=== PATIENT | female | born 1945 | race Caucasian/White ===

== ENCOUNTER 2017-04-23 12:42 | Observation (INO) | payer MEDICARE, OTHER, SELFPAY ==
[2017-04-23] VITALS (11 sets, daily range): BP systolic 112–180; BP diastolic 58–83; PULSE 54–75; RESP 16–23; TEMP 36.6–37.1; O2SAT 94–99; BMI 27.4; BMI 29.5
--- NOTE | 2017-04-23 12:48 | ED.RN ---
PT STATES MY HEAD HURTS. INFORMED DR HOWARD SHE DROVE HERSELF TO THE ER
[2017-04-23 12:50] LABS: Bedside Glucose 145 mg/dL (70-110)
--- NOTE | 2017-04-23 12:53 | EKG12_ITS ---
Test Reason : CP Blood Pressure : / mmHG Vent. Rate : 074 BPM Atrial Rate : 074 BPM P-R Int : 174 ms QRS Dur : 086 ms QT Int : 392 ms P-R-T Axes : 019 058 088 degrees QTc Int : 435 ms Normal sinus rhythm T wave abnormality, consider anterior ischemia Abnormal ECG Confirmed by STARLA DELA CRUZ ([id number]), manager editorial DAVID CARMONA ([id number] on 04/27/2017 1:46:28 PM Referred By: ANYA Confirmed By:STARLA DELA CRUZ
--- NOTE | 2017-04-23 12:53 | RAD_ITS ---
STUDY: X-RAY CHEST REASON FOR EXAM: Female, 71 years old. Sudden onset chest pain. TECHNIQUE: Single AP portable view of the chest. COMPARISON: December 16, 2016. FINDINGS: Telemetry wires overlie the chest. The lungs are clear and expanded. There is no demonstrated pleural abnormality. Sternal cerclage wires are present from a prior sternotomy. The heart appears normal in size. Normal mediastinum and beverly. Normal visualized pulmonary arteries. Normal visualized aortic arch and descending thoracic aorta. Normal visualized thoracic spine. Normal visualized ribs, clavicles, and shoulders. There is no demonstrated abnormality of the visualized soft tissue structures of the upper abdomen. RAD/Chest 1 View (Portable) IMPRESSION: No acute cardiopulmonary disease or interval change. Electronically Signed: Lamont Roger DO at 15:30 EDT Tel [phone], Service support ,
--- NOTE | 2017-04-23 12:54 | CT_ITS ---
STUDY: CT BRAIN WITHOUT CONTRAST REASON FOR EXAM: Female, 71 years old. History of fall. RADIATION DOSAGE (If Supplied By Facility): CTDIvol = ( 60.81 ) mGy, DLP = ( 1067.08 ) mGycm TECHNIQUE: Transaxial CT imaging of the brain was performed without administration of intravenous contrast material. Individualized dose optimization techniques were used for this CT. COMPARISON: Comparison is made with prior study dated December 16, 2016. FINDINGS: Normal soft tissue structures. Normal calvarium. There is mild cerebral atrophy with widening of the extra-axial spaces and ventricular dilatation. There are areas of decreased attenuation within the white matter tracts of the supratentorial brain, consistent with microvascular disease changes. 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 Normal brainstem. Normal cerebellum. There is no intracranial hemorrhage. There are no findings of an acute ischemic infarction. Atherosclerotic calcification of the cavernous portions of the internal carotid arteries bilaterally. Nodular mucosal thickening of the right maxillary sinus. CT/Brain/Head without Contrast IMPRESSION: Chronic involutional changes of the brain. Electronically Signed: Gonzales Dowell MD at 13:56 EDT Tel [phone], Service support ,
--- NOTE | 2017-04-23 12:54 | CT_ITS ---
STUDY: CT CERVICAL SPINE WITHOUT CONTRAST REASON FOR EXAM: Female, 71 years old. Neck pain following a fall. RADIATION DOSAGE (If Supplied By Facility): CTDIvol = ( 30.10 ) mGy, DLP = ( 616.87 ) mGycm TECHNIQUE: High resolution transaxial imaging was performed without contrast material. Sagittal and coronal images were reconstructed. Individualized dose optimization techniques were used for this CT. COMPARISON: None FINDINGS: Normal craniovertebral junction. There are degenerative changes of the anterior atlantoaxial articulation. Normal odontoid process. Normal cervical lordosis. Normal vertebral bodies and posterior osseous elements. C2-3: Normal endplates. Normal disc height and morphology. Normal central canal and intervertebral neuroforamina. C3-4: Normal endplates. Normal disc height and morphology. Normal central canal and intervertebral neuroforamina. C4-5: Moderate degree of disc space narrowing and spondylosis. Uncovertebral arthrosis and facet joint osteoarthritis. Mild degree of bilateral neural foraminal stenosis worse on the right side. C5-6: Moderate degree of disc space narrowing with spondylosis. Uncovertebral arthrosis. Facet joint osteoarthritis and hypertrophy. Mild bilateral neural foraminal stenosis. C6-7: Moderate degree of disc space narrowing and spondylosis. Facet joint osteoarthritis. CT/Spine Cervical without Contras IMPRESSION: Multilevel degenerative changes, as described above. Electronically Signed: Gonzales Dowell MD at 13:55 EDT Tel [phone], Service support ,
--- NOTE | 2017-04-23 13:15 | ED.RN ---
[address] COMPLETE [address] COMPLETE 1310 RETURNED TO ER BED 6 1311 CHEST XRAY COMPLETE
[2017-04-23 13:23] LABS: Absolute Lymphocyte Count 3.41 X10^3/ul (0.83-4.51); Absolute Neutrophil Count 6.4 X10^3/uL (2.0-7.7); Basophil# 0.05 X10^3/uL; Basophil% 0.5 % (0-1); Eosinophil# 0.16 X10^3/uL; Eosinophils% 1.5 % (0-5); Hematocrit 42.6 % (37-47); Hemoglobin 14.1 g/dl (12.0-15.0); Lymphocyte # 3.41 X10^3/ul (4.0); Lymphocyte % 31.9 % (19-41); Mean Corp Hgb Conc 33.1 g/gl (32-36); Mean Corpuscular Hgb 29.4 pg (27.0-32.0); Mean Corpuscular Volume 88.9 fL (81-99); Mean Platelet Vol. 11.1 fl (6.2-12.0); Monocyte# 0.68 X10^3/uL; Monocyte% 6.4 % (0-10); Neutrophil # 6.36 X10^3/uL (2.7-7.7); Neutrophil % 59.3 % (47-70); Platelet Count 293 K/mm3 (150-450); RBC Distribution Width CV 13.9 % (11.6-14.6); Red Blood Count 4.79 M/mm3 (4.2-5.4); White Blood Count 10.7 K/mm3 (4.4-11.0)
[2017-04-23] MEDS: 0.9% Normal Saline 1,000 ML 150 ML IV (13:25)
[2017-04-23 13:26] LABS: POSITIVE COUNT NO; POSITIVE DIFFERENTIAL NO; POSITIVE MORPHOLOGY NO
[2017-04-23 13:35] LABS: Anion Gap 7 (5-15); BUN 12 mg/dL (7-18); BUN/Creat Ratio 12.3 RATIO (10-20); Calcium,Total 8.8 mg/dL (8.5-10.1); Chloride 103 mmol/L (98-107); Creatinine, Serum 0.97 mg/dL (0.55-1.02); EST Glomerular Filtration Rate 60 mL/min (>60); Est Glom Filt Rate - Afr Amer 73 mL/min (>60); Estimated Creatinine Clearance 51.24 ml/min; Glucose 115 mg/dL (74-106); Potassium 3.7 mmol/L (3.5-5.1); Sodium Level 137 mmol/L (136-145)
[2017-04-23] MEDS: Aspirin 81 MG TAB.CHEW 324 MG PO (13:45)
--- NOTE | 2017-04-23 15:28 | ED.VISSUMM ---
- ER Visit Summary Date of Service: 04/23/17 Chief Complaint: [Chest pain and syncope] History of Present Illness: The patient is a 71 F [presents to the emergency department with complaint of chest discomfort. Patient drove herself to the emergency department because she was not feeling well today with headache and feeling short of breath. Patient was noted that before she entered the ER door she started clutching her chest and collapsed to the floor. A rapid response team went out to bring the patient into the department. On arrival she is somewhat confused and slow to answer questions. She does move all extremities and follows commands. Patient tells me she has a history of multiple cardiac stents and open heart surgery in the past. She denies any recent travel or surgery. She denies recent illness.] Physical Examination: [HEENT-PERRLA, EOMI. Cranial nerves II through XII grossly intact. TMs clear. Mucous membranes moist. No adenopathy. Cardiovascular-regular rate and rhythm without murmur or ectopy Lungs-clear to auscultation, chest wall stable without crepitus or subcu emphysema Abdomen-normoactive bowel sounds, soft, nontender, no rebound or rigidity, no peritoneal signs. Neuro dhcc-bibhsr-ecxj and heel amato testing within normal limits, negative Romberg. No focal deficit noted on exam. NIH of 0. Extremities-intact ?4, normal range of motion, normal pulses, atraumatic] Test Results: [EKG obtained on arrival shows sinus rhythm with a ventricular rate of 74 bpm with some nonspecific ST changes noted. CBC with differential is normal. Chemistries were normal. Troponin was less than 0.02. CT scan of the brain without contrast showed nothing acute. CT C-spine showed nothing acute. Chest x-ray showed nothing acute.] Emergency Department Course and Treatment: [Patient received aspirin in the emergency department.] Treatment Plan: [I recommended admitting patient for further workup and evaluation of her symptoms. Patient initially stated that she would prefer to go home however she agreed to allow for admission and at least an observation period.] Disposition: [Admit] Impression: [Chest pain Syncope Confusion-resolved] This note was generated with [employer] dictation software. It may contain incorrect words, spelling, and punctuation that were not noted in review of the chart prior to signing ED Disposition - Plan for ED Patient: Chief Complaint: Chest Pain Referrals: Zully Rojas MD [Primary Care Provider] -
--- NOTE | 2017-04-23 15:32 | ED.DCSUM_ITS ---
- ER Visit Summary Date of Service: 04/23/17 Chief Complaint: [Chest pain and syncope] History of Present Illness: The patient is a 71 F [presents to the emergency department with complaint of chest discomfort. Patient drove herself to the emergency department because she was not feeling well today with headache and feeling short of breath. Patient was noted that before she entered the ER door she started clutching her chest and collapsed to the floor. A rapid response team went out to bring the patient into the department. On arrival she is somewhat confused and slow to answer questions. She does move all extremities and follows commands. Patient tells me she has a history of multiple cardiac stents and open heart surgery in the past. She denies any recent travel or surgery. She denies recent illness.] Physical Examination: [HEENT-PERRLA, EOMI. Cranial nerves II through XII grossly intact. TMs clear. Mucous membranes moist. No adenopathy. Cardiovascular-regular rate and rhythm without murmur or ectopy Lungs-clear to auscultation, chest wall stable without crepitus or subcu emphysema Abdomen-normoactive bowel sounds, soft, nontender, no rebound or rigidity, no peritoneal signs. Neuro yvvo-tdzvkg-cnqx and heel amato testing within normal limits, negative Romberg. No focal deficit noted on exam. NIH of 0. Extremities-intact ?4, normal range of motion, normal pulses, atraumatic] Test Results: [EKG obtained on arrival shows sinus rhythm with a ventricular rate of 74 bpm with some nonspecific ST changes noted. CBC with differential is normal. Chemistries were normal. Troponin was less than 0.02. CT scan of the brain without contrast showed nothing acute. CT C-spine showed nothing acute. Chest x-ray showed nothing acute.] Emergency Department Course and Treatment: [Patient received aspirin in the emergency department.] Treatment Plan: [I recommended admitting patient for further workup and evaluation of her symptoms. Patient initially stated that she would prefer to go home however she agreed to allow for admission and at least an observation period.] Disposition: [Admit] Impression: [Chest pain Syncope Confusion-resolved] This note was generated with [employer] dictation software. It may contain incorrect words, spelling, and punctuation that were not noted in review of the chart prior to signing ED Disposition - Plan for ED Patient: Chief Complaint: Chest Pain Referrals: Zully Rojas MD [Primary Care Provider] -
--- NOTE | 2017-04-23 15:55 | PCM.HP.STD ---
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 The patient is a 71 year old F with past medical history as mentioned above presented to the emergency room because of chest pain and reported syncope. The patient is poor informant and was not able to give consistent history. She stated [facility] and while she is driving, she started feeling sick, dizzy and had chest pain and she was about to vomit. She described this chest pain as sharp pain, lasted for couple of minutes, not radiating, 4-5 out of 10 in severity, associated with shortness of breath and nausea and without aggravating or relieving factors. She drove to the hospital and parking her car, came walking to the emergency room and all of a sudden, she started having another episode of chest pain was described as above, associated with dizziness, severe pain, sharp and she landed on the ground because of that pain. Reportedly, a man who was walking beside mentioned that she passed out. She did mention that she was dizzy but she did not recall that she passed out. Upon arrival to ER, patient was somewhat confused and slow on responding to questions. When I saw the patient, she had the same problem but she was alert and active ?3 and she has slow responses to questions. She mentioned that this problem is chronic for her. At this time, she has no more chest pain. Her vital signs are stable. Her routine blood work was unremarkable. First troponin was negative. EKG revealed flat T-wave in leads V3, V4, V5 and V6 and T-wave inversion in leads V3 and V4. Those changes are new compared to EKG from December,. Chest x-ray showed no acute findings. CT scan brain showed no acute infarction or hemorrhage. CT cervical spine showed no evidence of acute fractures or dislocations. She is being admitted for chest pain for evaluation as well as questionable syncope/near syncope for evaluation as well. Past Medical History Past Medical History (Chronic Problems): Chronic Problems Hypertension (Chronic) Coronary artery disease (Chronic) TIA (transient ischemic attack) (Chronic) Hyperlipidemia (Chronic) Hypothyroidism (Chronic) Anxiety (Chronic) Smoking addiction (Chronic) History of coronary artery bypass graft x 3 (Chronic) History of PTCA (Chronic) Sleep apnea (Chronic) Pulmonary hypertension (Chronic) Chronic back pain (Chronic) COPD (chronic obstructive pulmonary disease) (Chronic) Benzodiazepine dependence (Chronic) Allergies morphine Allergy (Verified 12/16/16 21:38) PT UNSURE Penicillins Allergy (Verified 12/16/16 21:38) Hives tramadol HCl [From Ultram] Allergy (Verified 12/16/16 21:38) PT UNSURE Home Medications: Ambulatory Orders Medication Instructions Recorded Atenolol [Tenormin (beta estefania)] 25 mg PO DAILY 03/22/15 Citalopram [Celexa] 40 mg PO DAILY 03/22/15 Clopidogrel Bisulfate [Plavix] 75 mg PO QODAY 03/22/15 Esomeprazole Mag Trihydrate 20 mg PO DAILY 03/22/15 [Nexium] Levothyroxine [Synthroid] 75 mcg PO DAILY 03/22/15 Lisinopril [Zestril] 40 mg PO DAILY 03/22/15 Aspirin E.C. 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 Denies: Heaviness, Orthopnea, Palpitations, Paroxysmal Noc. Dyspnea Respiratory: Reports: Shortness of Breath. Denies: Cough, Pleuritic Pain, Sputum production, Wheezing Gastrointestinal: Reports: Nausea. Denies: Abdominal Pain, Constipation, Diarrhea, Vomiting Genitourinary: Denies: Dysuria, Frequency, Hematuria Musculoskeletal: Denies: Arm Pain, Back Pain, Foot Pain Skin: Denies: Dryness, Rash Neurological: Denies: Balance problems, Double vision, Change in Speech, Slurred speech, Confusion, Focal weakness, Headaches, Incoordination Psychiatric: Reports: Anxiety. Denies: Depression Endocrine: Denies: Change in Body Habitus, Polydipsia, Polyuria VTE Information - Inpt Only VTE Present on Admission: No VTE Mechan Device Prophylaxis: None VTE Pharm Prophylaxis ordered?: Yes - Physical Exam General: Alert, Oriented x3, Cooperative, No apparent distress HEENT: Atraumatic, PERRLA, EOMI Oral: Moist Mucosa, No Gingival or Mucosal Lesions/ Ulcerations Neck: Supple, No JVD, Negative Carotid Bruits, Trachea Midline, Thyroid Normal Size and Texture Lungs: Clear to auscultation, No wheeze, No rales, Diminished, Rhonchi Cardiovascular: Regular rate, Regular Rhythm, Normal S1, Normal S2, PMI Normal Abdomen: Bowel Sounds Present, Soft, Non Tender, Non-Distended, No Hepato-splenomegaly Extremities: No clubbing, No cyanosis, No edema Skin: No rashes, No breakdown Lymphatic: No Cervical, Supraclavicular, or Inguinal Adenopathy Neurological: Cranial nerves II-XII grossly intact, Motor Exam 5/5 strength throughout Psych/Mental Status: Normal Affect, Appropriate Vital Signs Temp Pulse Resp BP Pulse Ox 97.9 F 69 20 H 142/83 H 94 04/23/17 12:42 04/23/17 15:30 04/23/17 15:30 04/23/17 15:30 04/23/17 15:30 Oxygen Flow Rate (L/min) 2 Oxygen Delivery Method Room Air Weight: 170 lb Body Mass Index (BMI) 27.4 Finger Stick Blood Glucose 145 Laboratory Tests Past 24 Hrs 04/23/17 04/23/17 12:45 12:45 WBC 10.7 RBC 4.79 Hgb 14.1 Hct 42.6 MCV 88.9 MCH 29.4 MCHC 33.1 RDW 13.9 RDW Differential 44.0 H Plt Count 293 MPV 11.1 Immature Gran % (Auto) 0.400 Neut % (Auto) 59.3 Lymph % (Auto) 31.9 [place] % (Auto) 6.4 Eos % (Auto) 1.5 Baso % (Auto) 0.5 Absolute Neuts (auto) 6.4 Absolute Lymphs (auto) 3.41 Total Counted Not Reportable Sodium 137 Potassium 3.7 Chloride 103 Carbon Dioxide 27.0 Anion Gap 7 BUN 12 Creatinine 0.97 Estim Creat Clear Calc 51.24 Est GFR (MDRD) Af Amer 73 Est GFR (MDRD) Non-Af 60 BUN/Creatinine Ratio 12.3 Glucose 115 H Calcium 8.8 Troponin I < 0.02 POC Glucose 04/23/17 12:47 POC Glucose 145 H Clinical Impression(s) from Imaging Studies Chest X-Ray 04/23/17 12:53 IMPRESSION: No acute cardiopulmonary disease or interval change. Electronically Signed: Lamont Roger DO at 15:30 EDT Tel [phone], Service support , Brain CT 04/23/17 12:54 IMPRESSION: Chronic involutional changes of the brain. Electronically Signed: Gonzales Dowell MD at 13:56 EDT Tel [phone], Service support , Cervical Spine CT 04/23/17 12:54 IMPRESSION: Multilevel degenerative changes, as described above. Electronically Signed: Gonzales Dowell MD at 13:55 EDT Tel [phone], Service support , Assessment/Plan This is a 71 years old female patient presented to the emergency room because of chest pain and questionable near syncope and she is being admitted for evaluation. #1 chest pain/EKG changes: EKG reviewed, revealed flattened T waves in leads V3, V4, V5 and V6 as well as inverted T-wave in leads V3 and V4 and those changes are new compared to EKG from December,. Her chest pain looks somewhat typical. She has significant cardiac history of CAD status post CABG and stents. Patient is poor informant, she used to see Dr. Cruz as outpatient. First troponin is negative. Vital signs are stable. Chest x-ray showed no acute findings. 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 #2 questionable syncope/near syncope: This was reported by a man who was walking by the patient in the front of the emergency room. Patient did mention that she was dizzy but she is not sure she is passed out. CT scan brain without acute findings. CT scan cervical spine done because of neck pain and was unremarkable. Plan: IV fluids, orthostatic vitals, cardiac monitoring. #3 CAD status post CABG and stents: Plan as above. Continue aspirin, atenolol, Plavix and lisinopril. #4 history of TIA: No focal deficit on physical exam. Continue aspirin and Plavix as well as statins. #5 COPD: Clinically stable, plan for albuterol as needed, Advair twice daily, oxygen by nasal cannula to keep O2 saturation more than 92%. #6 hypertension: Blood pressure stable, continue Norvasc, atenolol and lisinopril. #7 hypothyroidism: Continue levothyroxine. #8 DVT prophylaxis: Subcu Lovenox. This note was generated with [employer] dictation software. It may contain incorrect words, spelling, and punctuation that were not noted in checking the note before signing. Code Visit OBSV E&M: 91006 Initial observation care L3
--- NOTE | 2017-04-23 16:01 | HP.PCM_ITS ---
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 The patient is a 71 year old F with past medical history as mentioned above presented to the emergency room because of chest pain and reported syncope. The patient is poor informant and was not able to give consistent history. She stated that she went to [facility] today to do some stuff and while she is driving , she started feeling sick, dizzy and had chest pain and she was about to vomit. She described this chest pain as sharp pain, lasted for couple of minutes, not radiating, 4-5 out of 10 in severity, associated with shortness of breath and nausea and without aggravating or relieving factors. She drove to the hospital and parking her car, came walking to the emergency room and all of a sudden, she started having another episode of chest pain was described as above, associated with dizziness, severe pain, sharp and she landed on the ground because of that pain. Reportedly, a man who was walking beside mentioned that she passed out. She did mention that she was dizzy but she did not recall that she passed out. Upon arrival to ER, patient was somewhat confused and slow on responding to questions. When I saw the patient, she had the same problem but she was alert and active ?3 and she has slow responses to questions. She mentioned that this problem is chronic for her. At this time, she has no more chest pain. Her vital signs are stable. Her routine blood work was unremarkable. First troponin was negative. EKG revealed flat T-wave in leads V3, V4, V5 and V6 and T-wave inversion in leads V3 and V4. Those changes are new compared to EKG from December,. Chest x-ray showed no acute findings. CT scan brain showed no acute infarction or hemorrhage. CT cervical spine showed no evidence of acute fractures or dislocations. She is being admitted for chest pain for evaluation as well as questionable syncope/ near syncope for evaluation as well. Past Medical History Past Medical History (Chronic Problems): Chronic Problems Hypertension (Chronic) Coronary artery disease (Chronic) TIA (transient ischemic attack) (Chronic) Hyperlipidemia (Chronic) Hypothyroidism (Chronic) Anxiety (Chronic) Smoking addiction (Chronic) History of coronary artery bypass graft x 3 (Chronic) History of PTCA (Chronic) Sleep apnea (Chronic) Pulmonary hypertension (Chronic) Chronic back pain (Chronic) COPD (chronic obstructive pulmonary disease) (Chronic) Benzodiazepine dependence (Chronic) Allergies morphine Allergy (Verified 12/16/16 21:38) PT UNSURE Penicillins Allergy (Verified 12/16/16 21:38) Hives tramadol HCl [From Ultram] Allergy (Verified 12/16/16 21:38) PT UNSURE Home Medications: Ambulatory Orders Medication Instructions Recorded Atenolol [Tenormin (beta estefania)] 25 mg PO DAILY 03/22/15 Citalopram [Celexa] 40 mg PO DAILY 03/22/15 Clopidogrel Bisulfate [Plavix] 75 mg PO QODAY 03/22/15 Esomeprazole Mag Trihydrate 20 mg PO DAILY 03/22/15 [Nexium] Levothyroxine [Synthroid] 75 mcg PO DAILY 03/22/15 Lisinopril [Zestril] 40 mg PO DAILY 03/22/15 Aspirin E.C. [Ecotrin] 1 tab PO DAILY 06/19/15 Ca/D3/Mag Ox/Zinc/Prop Cutter/Jostin/Bor 1 each PO DAILY 06/19/15 [Calcium 600-Vit D3-Min Chew Tb] Fluticasone 0.05% [Flonase Nasal 2 spray NASAL DAILY 06/19/15 Prue] Lovastatin [Mevacor] 20 mg PO QHS 12/16/16 Multivitamin [Multiple Vitamins] 1 each PO DAILY 12/16/16 Citalopram Hydrobromide [Celexa] 20 mg PO 1700 04/23/17 Lorazepam [Ativan] 1 mg PO 4X/DAY 04/23/17 Surgical History: angioplasty - A total of 5 stents, coronary bypass surgery - 3 vessel bypass surgery Psychiatric History: Anxiety ARTIFICIAL INSEMINATOR History: No pertinent ARTIFICIAL INSEMINATOR history Lives: Alone Smoking Status: Current every day smoker Alcohol: None Drugs: None - *Family History Paternal History Items: No pertinent history Maternal History Items: No pertinent history Review of Systems Constitutional: Denies: Anorexia, Chills, Fever, Weakness Eyes: Denies: Blurred vision, Double vision, Drainage, Redness HEENT: Denies: Difficulty Hearing, Ear Pain, Eye Pain, Nasal Congestion, Sore Throat Cardiovascular: Reports: Chest Pain, Chest Pressure, Light Headedness. Denies: Heaviness, Orthopnea, Palpitations, Paroxysmal Noc. Dyspnea Respiratory: Reports: Shortness of Breath. Denies: Cough, Pleuritic Pain, Sputum production, Wheezing Gastrointestinal: Reports: Nausea. Denies: Abdominal Pain, Constipation, Diarrhea, Vomiting Genitourinary: Denies: Dysuria, Frequency, Hematuria Musculoskeletal: Denies: Arm Pain, Back Pain, Foot Pain Skin: Denies: Dryness, Rash Neurological: Denies: Balance problems, Double vision, Change in Speech, Slurred speech, Confusion, Focal weakness, Headaches, Incoordination Psychiatric: Reports: Anxiety. Denies: Depression Endocrine: Denies: Change in Body Habitus, Polydipsia, Polyuria VTE Information - Inpt Only VTE Present on Admission: No VTE Mechan Device Prophylaxis: None VTE Pharm Prophylaxis ordered?: Yes - Physical Exam General: Alert, Oriented x3, Cooperative, No apparent distress HEENT: Atraumatic, PERRLA, EOMI Oral: Moist Mucosa, No Gingival or Mucosal Lesions/ Ulcerations Neck: Supple, No JVD, Negative Carotid Bruits, Trachea Midline, Thyroid Normal Size and Texture Lungs: Clear to auscultation, No wheeze, No rales, Diminished, Rhonchi Cardiovascular: Regular rate, Regular Rhythm, Normal S1, Normal S2, PMI Normal Abdomen: Bowel Sounds Present, Soft, Non Tender, Non-Distended, No Hepato- splenomegaly Extremities: No clubbing, No cyanosis, No edema Skin: No rashes, No breakdown Lymphatic: No Cervical, Supraclavicular, or Inguinal Adenopathy Neurological: Cranial nerves II-XII grossly intact, Motor Exam 5/5 strength throughout Psych/Mental Status: Normal Affect, Appropriate Vital Signs Temp Pulse Resp BP Pulse Ox 97.9 F 69 20 H 142/83 H 94 04/23/17 12:42 04/23/17 15:30 04/23/17 15:30 04/23/17 15:30 04/23/17 15:30 Oxygen Flow Rate (L/min) 2 Oxygen Delivery Method Room Air Weight: 170 lb Body Mass Index (BMI) 27.4 Finger Stick Blood Glucose 145 Laboratory Tests Past 24 Hrs 04/23/17 04/23/17 12:45 12:45 WBC 10.7 RBC 4.79 Hgb 14.1 Hct 42.6 MCV 88.9 MCH 29.4 MCHC 33.1 RDW 13.9 RDW Differential 44.0 H Plt Count 293 MPV 11.1 Immature Gran % (Auto) 0.400 Neut % (Auto) 59.3 Lymph % (Auto) 31.9 [place] % (Auto) 6.4 Eos % (Auto) 1.5 Baso % (Auto) 0.5 Absolute Neuts (auto) 6.4 Absolute Lymphs (auto) 3.41 Total Counted Not Reportable Sodium 137 Potassium 3.7 Chloride 103 Carbon Dioxide 27.0 Anion Gap 7 BUN 12 Creatinine 0.97 Estim Creat Clear Calc 51.24 Est GFR (MDRD) Af Amer 73 Est GFR (MDRD) Non-Af 60 BUN/Creatinine Ratio 12.3 Glucose 115 H Calcium 8.8 Troponin I < 0.02 POC Glucose 04/23/17 12:47 POC Glucose 145 H Clinical Impression(s) from Imaging Studies Chest X-Ray 04/23/17 12:53 IMPRESSION: No acute cardiopulmonary disease or interval change. Electronically Signed: Lamont Roger DO at 15:30 EDT Tel [phone], Service support , Brain CT 04/23/17 12:54 IMPRESSION: Chronic involutional changes of the brain. Electronically Signed: Gonzales Dowell MD at 13:56 EDT Tel [phone], Service support , Cervical Spine CT 04/23/17 12:54 IMPRESSION: Multilevel degenerative changes, as described above. Electronically Signed: Gonzales Dowell MD at 13:55 EDT Tel [phone], Service support , Assessment/Plan This is a 71 years old female patient presented to the emergency room because of chest pain and questionable near syncope and she is being admitted for evaluation. #1 chest pain/EKG changes: EKG reviewed, revealed flattened T waves in leads V3 , V4, V5 and V6 as well as inverted T-wave in leads V3 and V4 and those changes are new compared to EKG from December,. Her chest pain looks somewhat typical. She has significant cardiac history of CAD status post CABG and stents. Patient is poor informant, she used to see Dr. Cruz as outpatient. First troponin is negative. Vital signs are stable. Chest x-ray showed no acute findings. Plan: Admit to PCU for observation, cardiac monitoring, serial cardiac enzymes, repeat EKG tomorrow morning, nuclear stress test tomorrow morning if cardiac enzymes are negative, obtain records from Dr. Cruz office who was her cotton broker. #2 questionable syncope/near syncope: This was reported by a man who was walking by the patient in the front of the emergency room. Patient did mention that she was dizzy but she is not sure she is passed out. CT scan brain without acute findings. CT scan cervical spine done because of neck pain and was unremarkable. Plan: IV fluids, orthostatic vitals, cardiac monitoring. #3 CAD status post CABG and stents: Plan as above. Continue aspirin, atenolol, Plavix and lisinopril. #4 history of TIA: No focal deficit on physical exam. Continue aspirin and Plavix as well as statins. #5 COPD: Clinically stable, plan for albuterol as needed, Advair twice daily, oxygen by nasal cannula to keep O2 saturation more than 92%. #6 hypertension: Blood pressure stable, continue Norvasc, atenolol and lisinopril. #7 hypothyroidism: Continue levothyroxine. #8 DVT prophylaxis: Subcu Lovenox. This note was generated with [email or web address] dictation software. It may contain incorrect words, spelling, and punctuation that were not noted in checking the note before signing. Code Visit OBSV E&M: 93473 Initial observation care L3
[2017-04-23] MEDS: 0.9% Normal Saline 1,000 ML 100 ML IV (18:26)
[2017-04-23] MEDS: Atorvastatin Calcium 10 MG Tablet 5 MG PO (21:25)
[2017-04-23] MEDS: Acetaminophen 325 MG Tablet 650 MG PO (22:28)
[2017-04-23] MEDS: Zolpidem Tartrate 5 MG Tablet PO (22:28)
[2017-04-24] VITALS (8 sets, daily range): BP systolic 148–164; BP diastolic 64–78; PULSE 56–76; RESP 16; TEMP 36.6–36.8; O2SAT 95–97
[2017-04-24 02:49] LABS: Absolute Neutrophil Count 4.7 X10^3/uL (2.0-7.7); Basophil# 0.04 X10^3/uL; Basophil% 0.4 % (0-1); Eosinophil# 0.32 X10^3/uL; Eosinophils% 3.5 % (0-5); Hematocrit 39.1 % (37-47); Hemoglobin 12.8 g/dl (12.0-15.0); Lymphocyte % 38.2 % (19-41); Mean Corp Hgb Conc 32.7 g/gl (32-36); Mean Corpuscular Hgb 29.1 pg (27.0-32.0); Mean Corpuscular Volume 88.9 fL (81-99); Mean Platelet Vol. 10.6 fl (6.2-12.0); Monocyte# 0.58 X10^3/uL; Monocyte% 6.3 % (0-10); Neutrophil % 51.4 % (47-70); POSITIVE COUNT NO; POSITIVE DIFFERENTIAL NO; POSITIVE MORPHOLOGY NO; Platelet Count 274 K/mm3 (150-450); RBC Distribution Width CV 13.8 % (11.6-14.6); RBC Distribution Width SD 44.3 fl (35.1-43.9); White Blood Count 9.2 K/mm3 (4.4-11.0)
[2017-04-24 02:55] LABS: Prothrombin Time (Protime)PT. 13.2 SECONDS (11.7-14.9)
[2017-04-24 02:56] LABS: Partial Thromboplast Time 27.4 Seconds (24.1-36.2)
[2017-04-24 03:12] LABS: Anion Gap 7 (5-15); BUN 12 mg/dL (7-18); BUN/Creat Ratio 14.2 RATIO (10-20); Chloride 109 mmol/L (98-107); Creatinine, Serum 0.84 mg/dL (0.55-1.02); EST Glomerular Filtration Rate 71 mL/min (>60); Est Glom Filt Rate - Afr Amer 86 mL/min (>60); Glucose 97 mg/dL (74-106); Sodium Level 143 mmol/L (136-145)
--- NOTE | 2017-04-24 05:55 | EKG12_ITS ---
Test Reason : AM EKG Blood Pressure : / mmHG Vent. Rate : 052 BPM Atrial Rate : 052 BPM P-R Int : 194 ms QRS Dur : 072 ms QT Int : 454 ms P-R-T Axes : 016 056 109 degrees QTc Int : 422 ms Sinus bradycardia T wave abnormality, consider anterior ischemia Abnormal ECG When compared with ECG of 23-APR-2017 12:42, MANUAL COMPARISON REQUIRED, DATA IS UNCONFIRMED Confirmed by STARLA DELA CRUZ ([id number]), editor magazine DAVID CARMONA ([id number]) on 04/27/2017 2:51:58 PM Referred By: JOSH Confirmed By:STARLA DELA CRUZ
[2017-04-24] MEDS: LORazepam 1 MG Tablet PO ×2 (06:09→11:45)
[2017-04-24] MEDS: Clopidogrel Bisulfate 75 MG Tablet PO (06:09)
[2017-04-24] MEDS: Aspirin E.C. 81 MG Tablet PO (06:09)
[2017-04-24] MEDS: Lisinopril 40 MG Tablet PO (06:09)
[2017-04-24] MEDS: Levothyroxine 75 MCG Tablet PO (06:09)
[2017-04-24] MEDS: Albuterol 2.5 MG/3 ML VIAL.NEB. INHALATION (06:41)
[2017-04-24] MEDS: Budesonide Respules 0.5 MG/2 ML AMPUL.NEB. INHALATION (06:41)
[2017-04-24] MEDS: Citalopram 20 MG Tablet 40 MG PO (11:45)
[2017-04-24] MEDS: Pantoprazole Sodium 20 MG Tablet PO (11:45)
[2017-04-24] MEDS: Fluticasone 0.05% 1 SPRAY NASAL.SRY 2 SPRAY NASAL (11:45)
[2017-04-24] MEDS: Atenolol 25 MG Tablet PO (11:46)
--- NOTE | 2017-04-24 12:33 | STRESSREP ---
Stress Test Report Pharmacologic myocardial perfusion stress test. 71-year-old lady with a history of chest pain. Stress protocol: Resting EKG demonstrates normal sinus rhythm with a rate of 67 bpm normal intervals are noted. There are 0.4 mg of adenosine was infused per usual protocol followed by Intravenous saline flush injection. Continuous EKG monitoring was performed. At rest there were no ST or T-wave changes noted suggest abnormal flow reserve at peak infusion no ST or T-wave changes were noted suggest abnormal flow reserve. The resting blood pressure was 152/74 with a final blood pressure 158/78. No clinical angina was noted. Myocardial perfusion protocol. 12.0 mCi of technetium 99m sestamibi was injected at rest. 0.4 mg regadenoson was infused per usual protocol. At peak infusion 35.0 mCi of technetium 99m sestamibi was injected. Stress images were obtained. Stress and rest images were reconstructed and compared in the short axis vertical long and horizontal long axis. Gated images were also obtained. Perfusion SPECT analysis: Review of the stress images demonstrate normal uptake of tracer noted in all areas of the myocardium. The resting images similarly demonstrate normal uptake of tracer noted in all areas of the myocardium. No areas of reversibility are noted suggest ischemia. Gated SPECT analysis: The gated ejection fraction noted to be 75%. Conclusion: Normal pharmacologic myocardial perfusion stress test. Preserved ejection fraction.
--- NOTE | 2017-04-24 14:13 | NURSING ---
Pt requesting to leave AMA at this time, AMA papers signed- copy given to patient and copy placed in chart. MD and discharge rn are aware.
--- NOTE | 2017-04-24 17:38 | PCM.DC.SUM ---
Discharge Date and Diagnosis Date of Admission: 04/23/17 Date of Discharge: 04/24/17 - Primary Discharge Diagnosis Noncardiac chest pain - Secondary Discharge Diagnosis Chronic Problems Hypertension (Chronic) Coronary artery disease (Chronic) TIA (transient ischemic attack) (Chronic) Hyperlipidemia (Chronic) Hypothyroidism (Chronic) Anxiety (Chronic) Smoking addiction (Chronic) History of coronary artery bypass graft x 3 (Chronic) History of PTCA (Chronic) Sleep apnea (Chronic) Pulmonary hypertension (Chronic) Chronic back pain (Chronic) COPD (chronic obstructive pulmonary disease) (Chronic) Benzodiazepine dependence (Chronic) Hospital Course and Treatment Imaging Results: Clinical Impression(s) from Imaging Studies Chest X-Ray 04/23/17 12:53 IMPRESSION: No acute cardiopulmonary disease or interval change. Electronically Signed: Lamont Roger DO at 15:30 EDT Tel [phone], Service support , Brain CT 04/23/17 12:54 IMPRESSION: Chronic involutional changes of the brain. Electronically Signed: Gonzales Dowell MD at 13:56 EDT Tel [phone], Service support , Cervical Spine CT 04/23/17 12:54 IMPRESSION: Multilevel degenerative changes, as described above. Electronically Signed: Gonzales Dowell MD at 13:55 EDT Tel [phone], Service support , Laboratory Tests 04/23/17 04/23/17 04/23/17 12:45 12:45 12:47 WBC 10.7 RBC 4.79 Hgb 14.1 Hct 42.6 MCV 88.9 MCH 29.4 MCHC 33.1 RDW 13.9 RDW Differential 44.0 H Plt Count 293 MPV 11.1 Immature Gran % (Auto) 0.400 Neut % (Auto) 59.3 Lymph % (Auto) 31.9 [place] % (Auto) 6.4 Eos % (Auto) 1.5 Baso % (Auto) 0.5 Absolute Neuts (auto) 6.4 Absolute Lymphs (auto) 3.41 Total Counted Not Reportable PT INR APTT Sodium 137 Potassium 3.7 Chloride 103 Carbon Dioxide 27.0 Anion Gap 7 BUN 12 Creatinine 0.97 Estim Creat Clear Calc 51.24 Est GFR (MDRD) Af Amer 73 Est GFR (MDRD) Non-Af 60 BUN/Creatinine Ratio 12.3 Glucose 115 H Calcium 8.8 Troponin I < 0.02 POC Glucose 145 H 04/23/17 04/23/17 04/24/17 17:59 21:01 02:30 WBC RBC Hgb Hct MCV MCH MCHC RDW RDW Differential Plt Count MPV Immature Gran % (Auto) Neut % (Auto) Lymph % (Auto) [place] % (Auto) Eos % (Auto) Baso % (Auto) Absolute Neuts (auto) Absolute Lymphs (auto) Total Counted PT INR APTT Sodium 143 Potassium 4.0 Chloride 109 H Carbon Dioxide 27.0 Anion Gap 7 BUN 12 Creatinine 0.84 Estim Creat Clear Calc 47.70 Est GFR (MDRD) Af Amer 86 Est GFR (MDRD) Non-Af 71 BUN/Creatinine Ratio 14.2 Glucose 97 Calcium 8.0 L Troponin I < 0.02 < 0.02 POC Glucose 04/24/17 04/24/17 04/24/17 02:38 02:38 02:38 WBC 9.2 RBC 4.40 Hgb 12.8 Hct 39.1 MCV 88.9 MCH 29.1 MCHC 32.7 RDW 13.8 RDW Differential 44.3 H Plt Count 274 MPV 10.6 Immature Gran % (Auto) 0.200 Neut % (Auto) 51.4 Lymph % (Auto) 38.2 [place] % (Auto) 6.3 Eos % (Auto) 3.5 Baso % (Auto) 0.4 Absolute Neuts (auto) 4.7 Absolute Lymphs (auto) 3.50 Total Counted Not Reportable PT 13.2 INR 1.0 APTT 27.4 Sodium Potassium Chloride Carbon Dioxide Anion Gap BUN Creatinine Estim Creat Clear Calc Est GFR (MDRD) Af Amer Est GFR (MDRD) Non-Af BUN/Creatinine Ratio Glucose Calcium Troponin I < 0.02 POC Glucose none Operations: None Procedures: Stress test Summary of Care Provided: The patient is a 71 year old F with a past medical history of hypertension, coronary artery disease, TIA, hyperlipidemia, hypothyroidism, chronic anxiety, benzodiazepine dependence, history of CABG ?3 vessels, pulmonary hypertension, COPD and ongoing nicotine dependence who presented to the emergency room at [facility] on 04/23/2017 complaining of a syncopal episode and chest pain. She was a poor historian. Troponin in the emergency room was less than 0.02. The EKG showed flat T waves in leads V3, V4, V5 and V6 with T-wave inversions in V3 and V4. The changes were new when compared to an EKG done in December 2016. Chest x-ray showed no acute findings. CT brain showed no acute abnormalities. Cervical spine CT showed no evidence of acute fracture or dislocation. She was admitted to a monitored bed on PCU and serial cardiac enzymes were obtained and were negative. On 04/24/2017 she had a nuclear stress test that was negative for ischemia. The gated nuclear ejection fraction was 75%. Telemetry showed no significant dysrhythmia or ectopy. Pt became agitated when she was not immediately discharged following the Stress test. She left AMA prior to me ever seeing her. This note was generated with [employer] dictation software. It may contain incorrect words, spelling, and punctuation that were not noted in checking the note before signing. Discharge Diet: Low fat/ Low Cholesterol Discharge Activity: Return to Normal Activity Home Medications: Medications to take at Discharge Atenolol [Tenormin (beta estefania)] 25 mg PO DAILY 03/22/15 Citalopram [Celexa] 40 mg PO DAILY 03/22/15 Clopidogrel Bisulfate [Plavix] 75 mg PO QODAY 03/22/15 Esomeprazole Mag Trihydrate [Nexium] 20 mg PO DAILY 03/22/15 Levothyroxine [Synthroid] 75 mcg PO DAILY 03/22/15 Lisinopril [Zestril] 40 mg PO DAILY 03/22/15 Aspirin E.C. [Ecotrin] 1 tab PO DAILY 06/19/15 Ca/D3/Mag Ox/Zinc/Freight Traffic Consultant/Jostin/Bor [Calcium 600-Vit D3-Min Chew Tb] 1 each PO DAILY 06/19/15 Fluticasone 0.05% [Flonase Nasal [place]] 2 spray NASAL DAILY 06/19/15 Lovastatin [Mevacor] 20 mg PO QHS 12/16/16 Multivitamin [Multiple Vitamins] 1 each PO DAILY 12/16/16 Citalopram Hydrobromide [Celexa] 20 mg PO 1700 04/23/17 Lorazepam [Ativan] 1 mg PO 4X/DAY 04/23/17 Primary Care Physician: Zully Rojas MD [Primary Care Provider] - Disposition: Against Medical Advice Minutes spent on discharge:: 20 Medical Necessity - Tobacco Use Smoking Status: Current every day smoker Tobacco Use: Cigarettes Meaningful Use Info Meaningful Use Diagnoses (Choose all that apply): None applicable Code Visit OBSV E&M: 96975 Observation care discharge
--- NOTE | 2017-04-24 17:46 | DS.PCM_ITS ---
Discharge Date and Diagnosis Date of Admission: 04/23/17 Date of Discharge: 04/24/17 - Primary Discharge Diagnosis Noncardiac chest pain - Secondary Discharge Diagnosis Chronic Problems Hypertension (Chronic) Coronary artery disease (Chronic) TIA (transient ischemic attack) (Chronic) Hyperlipidemia (Chronic) Hypothyroidism (Chronic) Anxiety (Chronic) Smoking addiction (Chronic) History of coronary artery bypass graft x 3 (Chronic) History of PTCA (Chronic) Sleep apnea (Chronic) Pulmonary hypertension (Chronic) Chronic back pain (Chronic) COPD (chronic obstructive pulmonary disease) (Chronic) Benzodiazepine dependence (Chronic) Hospital Course and Treatment Imaging Results: Clinical Impression(s) from Imaging Studies Chest X-Ray 04/23/17 12:53 IMPRESSION: No acute cardiopulmonary disease or interval change. Electronically Signed: Lamont Roger DO at 15:30 EDT Tel [phone], Service support , Brain CT 04/23/17 12:54 IMPRESSION: Chronic involutional changes of the brain. Electronically Signed: Gonzales Dowell MD at 13:56 EDT Tel [phone], Service support , Cervical Spine CT 04/23/17 12:54 IMPRESSION: Multilevel degenerative changes, as described above. Electronically Signed: Gonzales Dowell MD at 13:55 EDT Tel [phone], Service support , Laboratory Tests 04/23/17 04/23/17 04/23/17 12:45 12:45 12:47 WBC 10.7 RBC 4.79 Hgb 14.1 Hct 42.6 MCV 88.9 MCH 29.4 MCHC 33.1 RDW 13.9 RDW Differential 44.0 H Plt Count 293 MPV 11.1 Immature Gran % (Auto) 0.400 Neut % (Auto) 59.3 Lymph % (Auto) 31.9 [place] % (Auto) 6.4 Eos % (Auto) 1.5 Baso % (Auto) 0.5 Absolute Neuts (auto) 6.4 Absolute Lymphs (auto) 3.41 Total Counted Not Reportable PT INR APTT Sodium 137 Potassium 3.7 Chloride 103 Carbon Dioxide 27.0 Anion Gap 7 BUN 12 Creatinine 0.97 Estim Creat Clear Calc 51.24 Est GFR (MDRD) Af Amer 73 Est GFR (MDRD) Non-Af 60 BUN/Creatinine Ratio 12.3 Glucose 115 H Calcium 8.8 Troponin I < 0.02 POC Glucose 145 H 04/23/17 04/23/17 04/24/17 17:59 21:01 02:30 WBC RBC Hgb Hct MCV MCH MCHC RDW RDW Differential Plt Count MPV Immature Gran % (Auto) Neut % (Auto) Lymph % (Auto) [place] % (Auto) Eos % (Auto) Baso % (Auto) Absolute Neuts (auto) Absolute Lymphs (auto) Total Counted PT INR APTT Sodium 143 Potassium 4.0 Chloride 109 H Carbon Dioxide 27.0 Anion Gap 7 BUN 12 Creatinine 0.84 Estim Creat Clear Calc 47.70 Est GFR (MDRD) Af Amer 86 Est GFR (MDRD) Non-Af 71 BUN/Creatinine Ratio 14.2 Glucose 97 Calcium 8.0 L Troponin I < 0.02 < 0.02 POC Glucose 04/24/17 04/24/17 04/24/17 02:38 02:38 02:38 WBC 9.2 RBC 4.40 Hgb 12.8 Hct 39.1 MCV 88.9 MCH 29.1 MCHC 32.7 RDW 13.8 RDW Differential 44.3 H Plt Count 274 MPV 10.6 Immature Gran % (Auto) 0.200 Neut % (Auto) 51.4 Lymph % (Auto) 38.2 [place] % (Auto) 6.3 Eos % (Auto) 3.5 Baso % (Auto) 0.4 Absolute Neuts (auto) 4.7 Absolute Lymphs (auto) 3.50 Total Counted Not Reportable PT 13.2 INR 1.0 APTT 27.4 Sodium Potassium Chloride Carbon Dioxide Anion Gap BUN Creatinine Estim Creat Clear Calc Est GFR (MDRD) Af Amer Est GFR (MDRD) Non-Af BUN/Creatinine Ratio Glucose Calcium Troponin I < 0.02 POC Glucose none Operations: None Procedures: Stress test Summary of Care Provided: The patient is a 71 year old F with a past medical history of hypertension, coronary artery disease, TIA, hyperlipidemia, hypothyroidism, chronic anxiety, benzodiazepine dependence, history of CABG ?3 vessels, pulmonary hypertension, COPD and ongoing nicotine dependence who presented to the emergency room at [facility] on 04/23/2017 complaining of a syncopal episode and chest pain. She was a poor historian. Troponin in the emergency room was less than 0.02. The EKG showed flat T waves in leads V3, V4, V5 and V6 with T-wave inversions in V3 and V4. The changes were new when compared to an EKG done in December 2016. Chest x-ray showed no acute findings. CT brain showed no acute abnormalities. Cervical spine CT showed no evidence of acute fracture or dislocation. She was admitted to a monitored bed on PCU and serial cardiac enzymes were obtained and were negative. On 04/24/2017 she had a nuclear stress test that was negative for ischemia. The gated nuclear ejection fraction was 75 %. Telemetry showed no significant dysrhythmia or ectopy. Pt became agitated when she was not immediately discharged following the Stress test. She left AMA prior to me ever seeing her. This note was generated with [employer] dictation software. It may contain incorrect words, spelling, and punctuation that were not noted in checking the note before signing. Discharge Diet: Low fat/ Low Cholesterol Discharge Activity: Return to Normal Activity Home Medications: Medications to take at Discharge Atenolol [Tenormin (beta estefania)] 25 mg PO DAILY 03/22/15 Citalopram [Celexa] 40 mg PO DAILY 03/22/15 Clopidogrel Bisulfate [Plavix] 75 mg PO QODAY 03/22/15 Esomeprazole Mag Trihydrate [Nexium] 20 mg PO DAILY 03/22/15 Levothyroxine [Synthroid] 75 mcg PO DAILY 03/22/15 Lisinopril [Zestril] 40 mg PO DAILY 03/22/15 Aspirin E.C. [Ecotrin] 1 tab PO DAILY 06/19/15 Ca/D3/Mag Ox/Zinc/Oracle Ascp Consultant/Jostin/Bor [Calcium 600-Vit D3-Min Chew Tb] 1 each PO DAILY 06/19/15 Fluticasone 0.05% [Flonase Nasal [place]] 2 spray NASAL DAILY 06/19/15 Lovastatin [Mevacor] 20 mg PO QHS 12/16/16 Multivitamin [Multiple Vitamins] 1 each PO DAILY 12/16/16 Citalopram Hydrobromide [Celexa] 20 mg PO 1700 04/23/17 Lorazepam [Ativan] 1 mg PO 4X/DAY 04/23/17 Primary Care Physician: Zully Rojas MD [Primary Care Provider] - Disposition: Against Medical Advice Minutes spent on discharge:: 20 Medical Necessity - Tobacco Use Smoking Status: Current every day smoker Tobacco Use: Cigarettes Meaningful Use Info Meaningful Use Diagnoses (Choose all that apply): None applicable Code Visit OBSV E&M: 44856 Observation care discharge
== END 2017-04-24 14:20 | disposition left against medical advice (07) ==
LOC: ED 15:50 → PCU 16:00
PROVIDERS: Admitting Provider Hospitalist; Emergency Provider Emergency Medicine; Family Provider Internal Medicine; PCP Internal Medicine; Visit Provider Internal Medicine
DX: R07.89 Other chest pain (principal); I25.10 Atherosclerotic heart disease of native coronary artery without angina pectoris; J44.9 Chronic obstructive pulmonary disease, unspecified; G47.30 Sleep apnea, unspecified; F13.20 Sedative, hypnotic or anxiolytic dependence, uncomplicated; I10 Essential (primary) hypertension; E78.5 Hyperlipidemia, unspecified; E03.9 Hypothyroidism, unspecified; F41.9 Anxiety disorder, unspecified; F17.200 Nicotine dependence, unspecified, uncomplicated; R55 Syncope and collapse; I27.20 Pulmonary hypertension, unspecified; Z79.02 Long term (current) use of antithrombotics/antiplatelets; Z79.899 Other long term (current) drug therapy; Z79.82 Long term (current) use of aspirin; Z86.73 Personal history of transient ischemic attack (TIA), and cerebral infarction without residual deficits; Z95.1 Presence of aortocoronary bypass graft
CPT/HCPCS: 36415; 70450; 71045; 72125; 78452; 80048; 82962; 84484; 85025; 85610; 85730; 93005; 93017; 94640; 96360; 96361; 97802; 99218; 99285; A9500; J7030; A4216; G0378; J2785

== ENCOUNTER → 2017-05-29 20:24 | Emergency (ER) | payer MEDICARE, OTHER, SELFPAY | PROVIDERS: Family Provider Internal Medicine; PCP Internal Medicine | DX: R69 Illness, unspecified (principal) ==

== ENCOUNTER 2017-06-01 17:37 | Emergency (ER) | payer MEDICARE, OTHER, SELFPAY ==
[2017-06-01 17:39] VITALS: BP 154/75; PULSE 71; RESP 16; TEMP 36.6; O2SAT 95; BMI 27.8
--- NOTE | 2017-06-01 18:11 | ED.DCSUM_ITS ---
- ER Visit Summary Date of Service: 06/01/17 Chief Complaint: Left leg pain History of Present Illness: The patient is a [address] Rojas and has seen Dr. Aguilar in the past. She reports that she has pain in the lower back that radiates down the left leg to the level of her calf that began approximately 2 weeks ago. She reports that her back pain is chronic. She describes the leg pain as sharp. Is 10 out of 10 with walking or movement. Is 9 out of 10 at rest. She is not taking anything for pain. She denies any numbness or weakness. No problems with her bowels or her bladder. No groin numbness. No recent trauma. No fall, MVA, or change in activity. No fever or abdominal pain. Physical Examination: Vitals: Stable. Afebrile. General: A&O x 3. NAD. Cardiovascular exam: Regular rate and rhythm, no murmur, rub or gallop. Respiratory exam: Clear to auscultation bilaterally. No wheezes or stridor. Abdominal exam: Soft, nontender, nondistended, normal bowel sounds. No peritoneal signs. Back: Diffuse moderate tenderness to palpation over the lumbar spine and the paraspinous musculature in the lumbar region. No point tenderness. Negative straight leg bilaterally. 5/5 DF, PF, EHL bilaterally. Normal sensation to light touch throughout. Extremity: No clubbing, cyanosis, or edema. Emergency Department Course and Treatment: An [facility] report was obtained which shows that her last prescription for opiates was in November 2016 and this was by Dr. Aguilar. The past year she is only had 6 prescriptions for opiates and they have all been from Dr. Aguilar. Treatment Plan: Patient will be discharged with a prescription for [place] and instructed to follow-up with Dr. Aguilar for further management of her back pain. I did discuss with the fact he may be able to do an injection that would help with her leg pain as well. She actually came to the emergency department asking for cortisone injection. Return to the emergency department for any worsening symptoms. Disposition: To home in improved and stable condition. Impression: 1. Chronic back pain. 2. Sciatica. This note was generated with [employer] software. It may contain incorrect words, spelling, and punctuation that were not noted in review of the chart prior to signing ED Disposition - Plan for ED Patient: Disposition: Home or Assisted Living Chief Complaint: Lower Extremity Injury Instructions: ED Sciatica Prescriptions: Hydrocodone Bitart/Apap 5-325 [[place] 5/325] 1 - 2 tablet PO Q4H PRN PRN 5 Days # 20 tablet PRN Reason: Pain Referrals: Georgia Aguilar MD [STAFF PHYSICIAN] - As soon as possible
== END 2017-06-01 18:27 | disposition home or self-care (01) ==
PROVIDERS: Emergency Provider Emergency Medicine; Family Provider Internal Medicine; PCP Internal Medicine
DX: M54.42 Lumbago with sciatica, left side (principal); G89.29 Other chronic pain; I25.10 Atherosclerotic heart disease of native coronary artery without angina pectoris; I10 Essential (primary) hypertension; J44.9 Chronic obstructive pulmonary disease, unspecified; Z95.1 Presence of aortocoronary bypass graft; Z79.82 Long term (current) use of aspirin; Z79.01 Long term (current) use of anticoagulants; Z79.899 Other long term (current) drug therapy; Z72.0 Tobacco use
CPT/HCPCS: 99282

== ENCOUNTER → 2017-06-11 12:30 | Outpatient (CLI) | payer OTHER, MEDICARE, SELFPAY ==
[2017-06-11 13:21] LABS: Amphetamine Urine VISTA NEGATIVE (<1000 ng/mL); Barbiturate Urine VISTA NEGATIVE (< 200 ng/mL); Benzodiazepine Urine VISTA NEGATIVE (< 200 ng/mL); Cocaine Urine VISTA NEGATIVE (< 300 ng/mL); Ecstacy Urine VISTA NEGATIVE (< 500 ng/mL); Methadone Urine VISTA NEGATIVE (< 300 ng/mL); PCP Urine VISTA NEGATIVE (< 25 ng/mL); THC Urine VISTA NEGATIVE (< 50 ng/mL); Vista UDS pH Range 5
== END ==
PROVIDERS: Family Provider Internal Medicine; PCP Internal Medicine; Visit Provider Anesthesiology Pain Medicine
DX: S13.4XXA Sprain of ligaments of cervical spine, initial encounter (principal); S23.3XXA Sprain of ligaments of thoracic spine, initial encounter; S33.9XXA Sprain of unspecified parts of lumbar spine and pelvis, initial encounter; M47.817 Spondylosis without myelopathy or radiculopathy, lumbosacral region
CPT/HCPCS: 80307

== ENCOUNTER → 2017-06-22 14:18 | Outpatient (CLI) | payer MEDICARE, OTHER, SELFPAY ==
--- NOTE | 2017-06-22 14:22 | VDLE_ITS ---
Reason For Study: R/O DVT, pain RIGHT LEFT CFV is compressible, spontaneous, phasic, GSV is normal. competent and demonstrates normal CFV is compressible, spontaneous, phasic, augmentation. competent, and demonstrates normal Procedure augmentation. Exam performed in department. FV is compressible, spontaneous, phasic, The exam was diagnostic. competent and demonstrates normal A preliminary report was called and/or faxed augmentation. to Dr. Schmitt @ [phone] @ 2:45 pm. POP V is compressible, spontaneous, phasic, competent and demonstrates normal augmentation. T/P Trunk is compressible. PTV is compressible. LT PerV is compressible. Interpretation Summary Deep veins of the left lower extremity are patent and compressible segmentally. There is no evidence of left lower extremity deep vein thrombosis. Valvular competence appears intact within the proximal deep venous system on the left . The left greater saphenous vein appears patent and compressible segmentally. Ordering Physician: George Schmitt Referring Physician: George Schmitt Performed By: Janna Lala, SABINA, RVT
== END ==
PROVIDERS: Family Provider Internal Medicine; PCP Internal Medicine; Visit Provider Anesthesiology
DX: M79.89 Other specified soft tissue disorders (principal)
CPT/HCPCS: 93971

== ENCOUNTER → 2017-06-29 16:53 | Outpatient (CLI) | payer MEDICARE, OTHER, SELFPAY ==
--- NOTE | 2017-06-29 16:59 | MRI_ITS ---
STUDY: MRI LUMBAR SPINE WITHOUT CONTRAST REASON FOR EXAM: Female, 72 years old. Left radiculopathy TECHNIQUE: Standardized fat and water weighted pulse sequences were obtained in the sagittal and axial planes. COMPARISON: None FINDINGS: T12-L1: Normal endplates. Normal disc height, hydration and morphology. Normal bilateral facet joints. Normal central canal and bilateral lateral recesses. Normal bilateral intervertebral neural foramina. Normal lumbar lordosis. There is no substantial scoliosis. Normal conus medullaris that terminates at T12-L1 L1-2: Normal endplates. Normal disc height, hydration and morphology. Normal bilateral facet joints. Normal central canal and bilateral lateral recesses. Normal bilateral intervertebral neural foramina. L2-3: Normal endplates. Normal disc height, desiccation and minimal annular bulge.. Normal bilateral facet joints. Normal central canal and bilateral lateral recesses. Normal bilateral intervertebral neural foramina. L3-4: Normal endplates. Normal disc height, desiccation and mild annular bulge. Bilateral facet arthropathy and thickening of ligamenta flava.. Normal central canal. Moderate bilateral recess and neuroforaminal stenosis. L4-5: Normal endplates. Normal disc height, desiccation and minor annular bulge.. Bilateral facet arthropathy.. Normal central canal. Minor bilateral recess encroachment.. Normal bilateral intervertebral neural foramina. L5-S1: Normal endplates. Normal disc height, desiccation and minimal bulging disc osteophyte complex.. Mild facet arthropathy.. Normal central canal and bilateral lateral recesses. Normal bilateral intervertebral neural foramina. Normal visualized sacral ala. Normal visualized paraspinous soft tissue structures. MRI/Spine Lumbar (Routine) IMPRESSION: Mild spondylosis. Spinal stenosis at L4-5 and more severe at L3-4 secondary to bulging annuli and facet arthropathy. Electronically Signed: Hany Desai MD at 23:16 EDT , Service support ,
== END ==
PROVIDERS: Family Provider Internal Medicine; PCP Internal Medicine; Visit Provider Anesthesiology Pain Medicine
DX: M54.16 Radiculopathy, lumbar region (principal); M47.896 Other spondylosis, lumbar region; M48.061 Spinal stenosis, lumbar region without neurogenic claudication
CPT/HCPCS: 72148

== ENCOUNTER → 2017-07-21 16:23 | Outpatient (CLI) | payer MEDICARE, OTHER, SELFPAY ==
[2017-07-21 17:06] LABS: Absolute Lymphocyte Count 4.04 X10^3/ul (0.83-4.51); Absolute Neutrophil Count 9.7 X10^3/uL (2.0-7.7); Basophil# 0.03 X10^3/uL; Basophil% 0.2 % (0-1); Eosinophil# 0.17 X10^3/uL; Eosinophils% 1.2 % (0-5); Hematocrit 37.6 % (37-47); Lymphocyte # 4.04 X10^3/ul (4.0); Lymphocyte % 27.4 % (19-41); Mean Corp Hgb Conc 31.9 g/gl (32-36); Mean Corpuscular Hgb 29.1 pg (27.0-32.0); Mean Corpuscular Volume 91.3 fL (81-99); Mean Platelet Vol. 10.6 fl (6.2-12.0); Monocyte# 0.78 X10^3/uL; Monocyte% 5.3 % (0-10); Neutrophil # 9.72 X10^3/uL (2.7-7.7); Neutrophil % 65.7 % (47-70); Platelet Count 346 K/mm3 (150-450); RBC Distribution Width CV 14.6 % (11.6-14.6); RBC Distribution Width SD 49.4 fl (35.1-43.9); Red Blood Count 4.12 M/mm3 (4.2-5.4); White Blood Count 14.8 K/mm3 (4.4-11.0)
[2017-07-21 17:25] LABS: POSITIVE COUNT NO; POSITIVE DIFFERENTIAL NO; POSITIVE MORPHOLOGY NO
[2017-07-21 17:35] LABS: AST(SGOT) 18 U/L (15-37); Alanine Aminotransfer ALT/SGPT 21 U/L (13-56); Albumin, Serum 3.5 g/dL (3.2-5.0); Alkaline Phosphatase 105 U/L (45-117); Anion Gap 6 (5-15); BUN 18 mg/dL (7-18); BUN/Creat Ratio 21.7 RATIO (10-20); Calcium,Total 8.3 mg/dL (8.5-10.1); Chloride 104 mmol/L (98-107); Creatinine, Serum 0.83 mg/dL (0.55-1.02); EST Glomerular Filtration Rate 72 mL/min (>60); Est Glom Filt Rate - Afr Amer 87 mL/min (>60); Globulin 3.6 g/dL (2.2-4.2); Glucose 89 mg/dL (74-106); Protein, Total 7.1 g/dL (6.4-8.2); Sodium Level 137 mmol/L (136-145); Thyroid Stim Hormone (TSH) 0.32 uIU/mL (0.358-3.74)
[2017-07-24 07:11] LABS: Hep C Antibodies <0.1 s/co ratio (0.0-0.9)
== END ==
PROVIDERS: Visit Provider Family Medicine Geriatric Medicine
DX: I10 Essential (primary) hypertension (principal); E55.9 Vitamin D deficiency, unspecified; Z13.89 Encounter for screening for other disorder
CPT/HCPCS: 36415; 80053; 82306; 84443; 85025; 86803

== ENCOUNTER 2017-07-26 19:12 | Emergency (ER) | payer MEDICARE, OTHER, SELFPAY ==
[2017-07-26 19:14] VITALS: BP 112/50; PULSE 83; RESP 15; TEMP 36.9; O2SAT 95; BMI 30.9
--- NOTE | 2017-07-26 19:24 | EKG12_ITS ---
Test Reason : CP Blood Pressure : / mmHG Vent. Rate : 082 BPM Atrial Rate : 082 BPM P-R Int : 150 ms QRS Dur : 086 ms QT Int : 404 ms P-R-T Axes : 013 041 067 degrees QTc Int : 472 ms Normal sinus rhythm Normal ECG Confirmed by CONSUELO GOLD, EDDY ([id number]), film editor DAVID CARMONA ([id number]) on 07/29/2017 3:55:10 PM Referred By: RD Confirmed By:EDDY CORDERO MD
--- NOTE | 2017-07-26 19:24 | RAD_ITS ---
STUDY: X-RAY CHEST REASON FOR EXAM: Female, 72 years old. Chest pain TECHNIQUE: Single AP portable view of the chest. COMPARISON: 04/23/2017. FINDINGS: The lungs are clear and expanded. There is no demonstrated pleural abnormality. Sternal cerclage wires and vascular clips are present from a prior sternotomy and coronary artery bypass graft procedure (CABG). Normal mediastinum and beverly. Normal visualized pulmonary arteries. Normal visualized aortic arch and descending thoracic aorta. Normal visualized thoracic spine. Normal visualized ribs, clavicles, and shoulders. There is no demonstrated abnormality of the visualized soft tissue structures of the upper abdomen. RAD/Chest 1 View (Portable) IMPRESSION: No acute chest disease. Electronically Signed: Miller Castillo MD at 20:16 EDT , Service support ,
--- NOTE | 2017-07-26 19:26 | ED.DCSUM_ITS ---
- ER Visit Summary Date of Service: 07/26/17 Chief Complaint: Nausea, chest pain, diarrhea History of Present Illness: The patient is a 72 F [place] to the emergency department multiple complaints. Patient has a history of anxiety, coronary vascular disease, hypertension. She states that on , she began have generalized illness. She had some abdominal cramping. She had a few bouts of vomiting and some loose watery diarrhea. She states that she also had a nosebleed on Thursday. She states yesterday, the diarrhea seemed to be improving she was able to eat. Today, her nausea returned. She states that this, she began have chest pain. He was substernal in the left side. She states that she does get similar pain like this from time to time. She was actually admitted in April of this year for the same. She had a negative stress test. Patient called squad. On squad arrival, she was given aspirin and nitro which resolved her pain. She states that she is feeling back to normal just with some persistent nausea. Physical Examination: Vital signs reviewed General: Well-nourished, well-developed Head: Normocephalic, atraumatic Eyes: Pupils equal and reactive, extraocular muscles intact Neck, supple, no lymphadenopathy Heart: Regular rate and rhythm Respiratory: No distress, clear bilaterally Abdomen: Soft, nontender, nondistended, no peritoneal signs Back: Nontender Extremities: Nontender, no edema, no cords Skin: Normal color no rash Neuro: Alert and oriented, no focal or lateralizing deficits Test Results: [] Emergency Department Course and Treatment: Patient presents with multiple complaints. EKG was obtained. On her prior EKG, the patient had T-wave inversions anteriorly which have since normalized. IV was established. Patient was given fluids and Phenergan. I really do not feel that the symptoms were more consistent with acute coronary syndrome. Patient has a new anemia. Her hemoglobin is 6.2. 5 days ago was 12. The patient states when I reevaluated her that she had been having jet black diarrhea for 3 days. Rectal exam was done with nurse in the room. It was guaiac positive. There is no active bleeding. With the patient's new anemia and evidence of upper GI bleed, she is going to require GI intervention. She is started on Protonix drip. I did discuss with patient options for transfer. She requested transfer to [facility]. Patient was discussed with Dr. Ramsay. She will be transferred for further workup and intervention of upper GI bleed. Treatment Plan: [] Disposition: Transfer Impression: 1. Upper GI bleed. 2 new anemia 3. Chest pain This note was generated with [employer]gl[employer] dictation software. It may contain incorrect words, spelling, and punctuation that were not noted in review of the chart prior to signing ED Disposition - Plan for ED Patient: Chief Complaint: Chest Pain Referrals: Zully Rojas MD [STAFF PHYSICIAN] -
[2017-07-26 19:29] VITALS: BP 111/53; PULSE 77; RESP 19; O2SAT 97
[2017-07-26] MEDS: proMETHazine 25 MG/ML Syringe 6.25 MG IV (19:32)
[2017-07-26 19:38] LABS: Absolute Lymphocyte Count 3.83 X10^3/ul (0.83-4.51); Absolute Neutrophil Count 6.1 X10^3/uL (2.0-7.7); Basophil# 0.05 X10^3/uL; Basophil% 0.5 % (0-1); Eosinophil# 0.23 X10^3/uL; Eosinophils% 2.1 % (0-5); Hemoglobin 6.4 g/dl (12.0-15.0); Lymphocyte # 3.83 X10^3/ul (4.0); Lymphocyte % 35.3 % (19-41); Mean Corpuscular Hgb 30.2 pg (27.0-32.0); Mean Corpuscular Volume 94.3 fL (81-99); Mean Platelet Vol. 10.1 fl (6.2-12.0); Monocyte# 0.62 X10^3/uL; Monocyte% 5.7 % (0-10); Neutrophil # 6.08 X10^3/uL (2.7-7.7); Neutrophil % 55.9 % (47-70); Platelet Count 299 K/mm3 (150-450); RBC Distribution Width CV 14.5 % (11.6-14.6); RBC Distribution Width SD 47.2 fl (35.1-43.9); Red Blood Count 2.12 M/mm3 (4.2-5.4); White Blood Count 10.9 K/mm3 (4.4-11.0)
[2017-07-26 19:40] LABS: POSITIVE COUNT NO; POSITIVE DIFFERENTIAL NO; POSITIVE MORPHOLOGY NO
[2017-07-26 19:56] LABS: AST(SGOT) 10 U/L (15-37); Alanine Aminotransfer ALT/SGPT 11 U/L (13-56); Albumin, Serum 2.7 g/dL (3.2-5.0); Alkaline Phosphatase 76 U/L (45-117); Anion Gap 6 (5-15); BUN 13 mg/dL (7-18); BUN/Creat Ratio 13.6 RATIO (10-20); Calcium,Total 7.3 mg/dL (8.5-10.1); Chloride 109 mmol/L (98-107); Creatinine, Serum 0.96 mg/dL (0.55-1.02); EST Glomerular Filtration Rate 61 mL/min (>60); Est Glom Filt Rate - Afr Amer 74 mL/min (>60); Estimated Creatinine Clearance 41.15 ml/min; Globulin 2.8 g/dL (2.2-4.2); Glucose 116 mg/dL (74-106); Lipase 155 U/L (73-393); Potassium 3.6 mmol/L (3.5-5.1); Protein, Total 5.5 g/dL (6.4-8.2); Sodium Level 140 mmol/L (136-145)
[2017-07-26 20:11] VITALS: BP 135/35; PULSE 73; RESP 15; O2SAT 100
[2017-07-26] MEDS: LORazepam 2 MG/ML Syringe 1 MG IV (20:12)
[2017-07-26 20:13] LABS: International Normalized Ratio 0.9; Partial Thromboplast Time 26.6 Seconds (24.1-36.2); Prothrombin Time (Protime)PT. 12.6 SECONDS (11.7-14.9)
--- NOTE | 2017-07-26 20:48 | NURSING ---
ACCEPTED TO [facility] RM T[id number] BROWN ACCEPTING
[2017-07-26 21:03] VITALS: BP 132/59; PULSE 66; RESP 18; O2SAT 100
== END 2017-07-26 21:46 | disposition short-term general hospital (02) ==
LOC: ED 20:06
PROVIDERS: Emergency Provider Emergency Medicine; Family Provider Family Medicine Geriatric Medicine; PCP Family Medicine Geriatric Medicine
DX: K92.1 Melena (principal); D64.9 Anemia, unspecified; R07.9 Chest pain, unspecified; I25.10 Atherosclerotic heart disease of native coronary artery without angina pectoris; I10 Essential (primary) hypertension; F41.9 Anxiety disorder, unspecified; E78.00 Pure hypercholesterolemia, unspecified; Z79.82 Long term (current) use of aspirin; Z79.01 Long term (current) use of anticoagulants; Z79.899 Other long term (current) drug therapy; Z72.0 Tobacco use
CPT/HCPCS: 71045; 80053; 83690; 84484; 85025; 85610; 85730; 86850; 86900; 93005; 96374; 96375; 99285; J7030; J7040; A4216; J3490

== ENCOUNTER → 2017-08-04 15:47 | Outpatient (CLI) | payer MEDICARE, OTHER, SELFPAY ==
[2017-08-04 16:35] LABS: Absolute Lymphocyte Count 3.31 X10^3/ul (0.83-4.51); Absolute Neutrophil Count 5.8 X10^3/uL (2.0-7.7); Basophil# 0.03 X10^3/uL; Basophil% 0.3 % (0-1); Eosinophil# 0.19 X10^3/uL; Eosinophils% 1.9 % (0-5); Hematocrit 28.8 % (37-47); Lymphocyte # 3.31 X10^3/ul (4.0); Lymphocyte % 33.8 % (19-41); Mean Corp Hgb Conc 31.3 g/gl (32-36); Mean Corpuscular Hgb 29.3 pg (27.0-32.0); Mean Corpuscular Volume 93.8 fL (81-99); Mean Platelet Vol. 9.4 fl (6.2-12.0); Monocyte# 0.47 X10^3/uL; Monocyte% 4.8 % (0-10); Neutrophil # 5.77 X10^3/uL (2.7-7.7); Neutrophil % 59.1 % (47-70); Platelet Count 359 K/mm3 (150-450); RBC Distribution Width CV 14.7 % (11.6-14.6); RBC Distribution Width SD 49.7 fl (35.1-43.9); Red Blood Count 3.07 M/mm3 (4.2-5.4); White Blood Count 9.8 K/mm3 (4.4-11.0)
[2017-08-04 16:36] LABS: POSITIVE COUNT NO; POSITIVE DIFFERENTIAL NO; POSITIVE MORPHOLOGY NO
== END ==
PROVIDERS: Family Provider Family Medicine Geriatric Medicine; PCP Family Medicine Geriatric Medicine; Visit Provider Family Medicine Geriatric Medicine
DX: D64.9 Anemia, unspecified (principal)
CPT/HCPCS: 36415; 85025

== ENCOUNTER → 2017-08-08 11:26 | Outpatient (CLI) | payer MEDICARE, OTHER, SELFPAY ==
--- NOTE | 2017-08-08 11:34 | CT_ITS ---
STUDY: CT CHEST WITHOUT CONTRAST REASON FOR EXAM: Female, 72 years old. Tobacco use RADIATION DOSAGE (If Supplied By Facility): CTDIvol = ( 3.02 ) mGy, DLP = ( 101.18 ) mGycm TECHNIQUE: Transaxial imaging was performed without the administration of intravenous contrast material. Multiplanar coronal and sagittal images were reformatted. This study is in a primarily bone window format limited soft tissue windows. Individualized dose optimization techniques were used for this CT. COMPARISON: July 26, 2017 and his x-ray FINDINGS: There is scattered areas of small emphysematous blebs seen in the upper lung zones primarily. This no visualized focal consolidation pleural effusion or evidence of pulmonary edema or pneumothorax. There is trace lower lobe atelectasis. There is eventration or a elevated left hemidiaphragm. There is no demonstrated pleural abnormality. Sternotomy wires are seen midline. There are coronary calcifications. There is mild cardiac enlargement. There is a 8.2 mm pretracheal lymph node. Normal mediastinum. Normal hilar regions. Normal unenhanced pulmonary arteries. Normal aorta arch and descending thoracic aorta. There is demineralization of the thoracic spine. There is degenerative change. There are multiple old left-sided rib fractures. There is a small hiatal hernia. CT/Chest without Contrast IMPRESSION: Emphysematous change. Status post sternotomy. Coronary artery disease. Degenerative changes of thoracolumbar spine Limited study. Electronically Signed: Yumiko Hughes MD at 8:53 EDT Tel , Service support ,
== END ==
PROVIDERS: Family Provider Family Medicine Geriatric Medicine; PCP Family Medicine Geriatric Medicine; Visit Provider Family Medicine Geriatric Medicine
DX: Z12.2 Encounter for screening for malignant neoplasm of respiratory organs (principal); Z87.891 Personal history of nicotine dependence
CPT/HCPCS: 71250

== ENCOUNTER → 2017-08-27 13:52 | Outpatient (CLI) | payer MEDICARE, OTHER, SELFPAY ==
[2017-08-27 17:32] LABS: Absolute Lymphocyte Count 2.87 X10^3/ul (0.83-4.51); Absolute Neutrophil Count 5.5 X10^3/uL (2.0-7.7); Basophil# 0.03 X10^3/uL; Basophil% 0.3 % (0-1); Eosinophil# 0.21 X10^3/uL; Eosinophils% 2.3 % (0-5); Lymphocyte # 2.87 X10^3/ul (4.0); Lymphocyte % 31.4 % (19-41); Mean Corp Hgb Conc 30.6 g/gl (32-36); Mean Corpuscular Hgb 28.6 pg (27.0-32.0); Mean Corpuscular Volume 93.5 fL (81-99); Mean Platelet Vol. 10.8 fl (6.2-12.0); Monocyte# 0.52 X10^3/uL; Monocyte% 5.7 % (0-10); Neutrophil # 5.47 X10^3/uL (2.7-7.7); POSITIVE COUNT NO; POSITIVE DIFFERENTIAL NO; POSITIVE MORPHOLOGY NO; Platelet Count 323 K/mm3 (150-450); RBC Distribution Width CV 14.1 % (11.6-14.6); RBC Distribution Width SD 46.5 fl (35.1-43.9); Red Blood Count 3.85 M/mm3 (4.2-5.4); White Blood Count 9.1 K/mm3 (4.4-11.0)
== END ==
PROVIDERS: Family Provider Family Medicine Geriatric Medicine; PCP Family Medicine Geriatric Medicine; Visit Provider Family Medicine Geriatric Medicine
DX: D64.9 Anemia, unspecified (principal)
CPT/HCPCS: 36415; 85025

== ENCOUNTER 2017-09-06 11:09 | Emergency (ER) | payer MEDICARE, OTHER, SELFPAY ==
[2017-09-06 11:10] VITALS: BP 143/75; PULSE 74; RESP 18; TEMP 36.2; O2SAT 98; BMI 28.3
[2017-09-06] MEDS: Ondansetron 4 MG/2 ML Vial IV (11:54)
[2017-09-06] MEDS: 0.9% Normal Saline 1,000 ML 1000 ML IV (11:54)
[2017-09-06 11:55] LABS: Hematocrit 36.8 % (37-47); Hemoglobin 11.1 g/dl (12.0-15.0); Mean Corp Hgb Conc 30.2 g/gl (32-36); Mean Corpuscular Hgb 27.5 pg (27.0-32.0); Mean Corpuscular Volume 91.3 fL (81-99); Platelet Count 293 K/mm3 (150-450); RBC Distribution Width CV 14.2 % (11.6-14.6); RBC Distribution Width SD 47.8 fl (35.1-43.9); Red Blood Count 4.03 M/mm3 (4.2-5.4); Scan Indicated on CBC? Y/N NO; White Blood Count 10.2 K/mm3 (4.4-11.0)
[2017-09-06 12:11] LABS: ALB/GLOB Ratio 0.7 RATIO (0.9-2.4); AST(SGOT) 183 U/L (15-37); Alanine Aminotransfer ALT/SGPT 195 U/L (13-56); Albumin, Serum 3.1 g/dL (3.2-5.0); Alkaline Phosphatase 865 U/L (45-117); Anion Gap 5 (5-15); BUN 11 mg/dL (7-18); BUN/Creat Ratio 12.7 RATIO (10-20); Calcium,Total 8.4 mg/dL (8.5-10.1); Chloride 101 mmol/L (98-107); Creatinine, Serum 0.86 mg/dL (0.55-1.02); EST Glomerular Filtration Rate 69 mL/min (>60); Est Glom Filt Rate - Afr Amer 83 mL/min (>60); Estimated Creatinine Clearance 45.93 ml/min; Globulin 4.3 g/dL (2.2-4.2); Glucose 107 mg/dL (74-106); Potassium 3.7 mmol/L (3.5-5.1); Protein, Total 7.4 g/dL (6.4-8.2); Sodium Level 137 mmol/L (136-145)
--- NOTE | 2017-09-06 12:31 | ED.VISSUMM ---
- ER Visit Summary Date of Service: 09/06/17 Chief Complaint: Dehydration weakness History of Present Illness: The patient is a 72 F with decreased p.o. intake for the past 2 months, some nausea associated with this. She has no abdominal pain. About 2 months ago she had an upper GI bleed which was treated in [place]. She did receive 2 units of blood. Currently she has no abdominal pain. She has nausea but no vomiting she fused feels diffusely weak. No rash. No chest pain or shortness of breath. Physical Examination: Not appear in acute distress. Slightly dry mucous membranes, no obvious facial deformity No C-spine tenderness supple neck. Regular rate and rhythm without any obvious murmurs Clear lungs bilaterally speaking in full sentences without any obvious respiratory distress Abdomen soft and nontender no guarding or rebound Moves all extremities without any difficulty or pain. Skin does not show any obvious rashes or lesions, no trauma. Alert oriented ?3 with no gross focal deficit Emergency Department Course and Treatment: Patient has an unremarkable workup, hemoglobin is normal chemistries are normal patient has a bilirubin of 2.0 and the transaminases are also elevated. Again she does not have a gallbladder or any abdominal pain I doubt it is an obstructive process, at least not from a stone. She appears well and nontoxic she will need a workup for her liver, a hepatitis panel was sent and patient's PCP will follow up. I stressed the importance of following up. If she sees her eyes or tongue or skin get yellow, if she feels more week if she has nausea or vomiting she needs to return to the emergency department and she understands this. Did significantly improve after IV. Impression: Dehydration Hepatitis This note was generated with BBE dictation software. It may contain incorrect words, spelling, and punctuation that were not noted in review of the chart prior to signing ED Disposition - Plan for ED Patient: Disposition: Home or Assisted Living Chief Complaint: Weakness Instructions: ED Weakness [facility] Referrals: Ino Silva Chi, MD [Primary Care Provider] - 2 Days Additional Instructions: Her found to have hepatitis in the emergency department. Follow-up with Dr. Liriano for further workup. We did have a hepatitis panel sent but will not be back for another 2 days. If you have change in your skin color, eye color or significant nausea vomiting return to the emergency department.
[2017-09-06 13:03] VITALS: BP 150/59; PULSE 63; RESP 16; O2SAT 97
[2017-09-08 05:07] LABS: HEPATITIS B SURFACE AG Negative (Negative); Hepatitis A IgM Antibody Negative (Negative); Hepatitis B Core AB IgM Negative (Negative)
[2017-09-08 08:19] LABS: Hep C Antibodies <0.1 s/co ratio (0.0-0.9)
== END 2017-09-06 13:04 | disposition home or self-care (01) ==
PROVIDERS: Emergency Provider Emergency Medicine; Family Provider Family Medicine Geriatric Medicine; PCP Family Medicine Geriatric Medicine
DX: E86.0 Dehydration (principal); K75.9 Inflammatory liver disease, unspecified; I25.10 Atherosclerotic heart disease of native coronary artery without angina pectoris; Z95.1 Presence of aortocoronary bypass graft; Z79.82 Long term (current) use of aspirin; Z79.899 Other long term (current) drug therapy; Z72.0 Tobacco use
CPT/HCPCS: 80053; 80074; 85027; 96361; 96374; 99283; J7030; A4216; J2405

== ENCOUNTER 2017-09-11 12:24 | Emergency (ER) | payer MEDICARE, OTHER, SELFPAY ==
[2017-09-11 12:25] VITALS: BP 117/59; PULSE 79; RESP 18; TEMP 36.3; O2SAT 99; BMI 28.3
--- NOTE | 2017-09-11 13:07 | ED.VISSUMM ---
- ER Visit Summary Date of Service: 09/11/17 Chief Complaint: [] Diffuse hives for a few days History of Present Illness: The patient is a 72 F [] history of heart disease CABG, cardiac stents, on Plavix, bleeding ulcer in the esophagus anemia, reports that she has been worried about her general medical condition, which has been very stable, she has had no bleeding no chest pain abdominal pain no paresthesias, and she reports she is developed hives diffusely over whole body she has had in the past when she worries about things she is on no new medications no other exposures eating and drinking well and again her cardiovascular and general health status has been very stable Physical Examination: [] She is in no distress she does have diffuse hives over her skin her HEENT exam is unremarkable oral cavity is negative the lungs are clear the heart tones are unremarkable abdomen soft nontender upper lower extremities unremarkable the skin shows a few scattered hives there is some plaques of hives to her back there is no petechia purpura skin breakdown no other lesions neurologically awake and alert she usually walks with a cane Test Results: [] Emergency Department Course and Treatment: [] Long conversation with her she says she wants a shot to make the hives go away we did discuss the potential use of Kenalog however given some type of an upper GI bleed that she says was from her esophagus I explained her that might complicate her GI history so we will start her on Atarax Aveeno bath and she will follow with her family doctor she agrees Treatment Plan: [] Disposition: [] Home stable Impression: [] Diffuse hives causing itching history of GI bleed CABG cardiac stents This note was generated with [employer] dictation software. It may contain incorrect words, spelling, and punctuation that were not noted in review of the chart prior to signing ED Disposition - Plan for ED Patient: Chief Complaint: Itching Referrals: Ino Silva Chi, MD [Primary Care Provider] -
--- NOTE | 2017-09-11 13:10 | ED.DEP ---
ED Disposition - Plan for ED Patient: Chief Complaint: Itching Instructions: ED Allergic Reaction General Other Prescriptions: hydrOXYzine tablet [Atarax tablet] 10 mg PO TID PRN 7 Days tab Colloidal Oatmeal [Aveeno Bath] 1 ea TP BID 7 Days packet Referrals: Ino Silva Chi, MD [Primary Care Provider] -
== END 2017-09-11 13:30 | disposition home or self-care (01) ==
LOC: ED 12:56
PROVIDERS: Emergency Provider Emergency Medicine; Family Provider Family Medicine Geriatric Medicine; PCP Family Medicine Geriatric Medicine
DX: L50.9 Urticaria, unspecified (principal); I25.10 Atherosclerotic heart disease of native coronary artery without angina pectoris; I10 Essential (primary) hypertension; E78.00 Pure hypercholesterolemia, unspecified; Z95.1 Presence of aortocoronary bypass graft; Z95.5 Presence of coronary angioplasty implant and graft; Z87.19 Personal history of other diseases of the digestive system; Z79.01 Long term (current) use of anticoagulants; Z79.82 Long term (current) use of aspirin; Z79.899 Other long term (current) drug therapy
CPT/HCPCS: 99282

== ENCOUNTER → 2017-09-14 14:25 | Outpatient (CLI) | payer MEDICARE, OTHER, SELFPAY ==
[2017-09-14 15:20] LABS: Cholesterol 123 mg/dL (200); High Density Lipoprotein 31 mg/dL; Triglycerides 113 mg/dL; Very Low Density Lipoprotein 23 mg/dL (5-40)
[2017-09-14 15:22] LABS: Hematocrit 37.6 % (37-47); Hemoglobin 11.4 g/dl (12.0-15.0); Mean Corp Hgb Conc 30.3 g/gl (32-36); Mean Corpuscular Hgb 27.1 pg (27.0-32.0); Mean Corpuscular Volume 89.5 fL (81-99); Mean Platelet Vol. 11.1 fl (6.2-12.0); Platelet Count 388 K/mm3 (150-450); RBC Distribution Width CV 14.5 % (11.6-14.6); RBC Distribution Width SD 47.5 fl (35.1-43.9); White Blood Count 13.3 K/mm3 (4.4-11.0)
[2017-09-14 15:24] LABS: Differential Indicated MANUAL DIFF; POSITIVE COUNT NO; POSITIVE DIFFERENTIAL NO; POSITIVE MORPHOLOGY YES
[2017-09-14 16:07] LABS: Eosinophil 15 % (0-5); Lymphocyte 19 % (19-41); Monocyte 4 % (0-10); Neutrophil-Band 1 % (0-5); Neutrophil-Segmented 61 % (47-70); Total Cells Counted 100 (MANUAL DIFF)
[2017-09-14 16:22] LABS: Absolute Lymphocyte Count 2.53 X10^3/ul (0.83-4.51); Absolute Neutrophil Count 8.2 X10^3/uL (2.0-7.7)
[2017-09-15 12:42] LABS: Pathologist Review Reviewed
== END ==
PROVIDERS: Family Provider Family Medicine Geriatric Medicine; PCP Family Medicine Geriatric Medicine; Visit Provider Family Medicine Geriatric Medicine
DX: D64.9 Anemia, unspecified (principal); E78.4 Other hyperlipidemia
CPT/HCPCS: 36415; 80061; 85025

== ENCOUNTER → 2017-10-21 14:17 | Outpatient (CLI) | payer MEDICARE, OTHER, SELFPAY ==
[2017-10-21 17:12] LABS: Absolute Lymphocyte Count 3.02 X10^3/ul (0.83-4.51); Absolute Neutrophil Count 5.1 X10^3/uL (2.0-7.7); Basophil# 0.03 X10^3/uL; Basophil% 0.3 % (0-1); Eosinophil# 0.32 X10^3/uL; Eosinophils% 3.6 % (0-5); Hematocrit 39.1 % (37-47); Hemoglobin 12.1 g/dl (12.0-15.0); Lymphocyte # 3.02 X10^3/ul (4.0); Lymphocyte % 33.7 % (19-41); Mean Corp Hgb Conc 30.9 g/gl (32-36); Mean Corpuscular Hgb 26.4 pg (27.0-32.0); Mean Corpuscular Volume 85.4 fL (81-99); Mean Platelet Vol. 11.5 fl (6.2-12.0); Monocyte# 0.53 X10^3/uL; Monocyte% 5.9 % (0-10); Neutrophil # 5.06 X10^3/uL (2.7-7.7); Neutrophil % 56.4 % (47-70); Platelet Count 295 K/mm3 (150-450); RBC Distribution Width CV 14.3 % (11.6-14.6); RBC Distribution Width SD 43.7 fl (35.1-43.9); Red Blood Count 4.58 M/mm3 (4.2-5.4)
[2017-10-21 17:21] LABS: POSITIVE COUNT NO; POSITIVE DIFFERENTIAL NO; POSITIVE MORPHOLOGY NO
[2017-10-21 18:22] LABS: ALB/GLOB Ratio 0.9 RATIO (0.9-2.4); AST(SGOT) 26 U/L (15-37); Alanine Aminotransfer ALT/SGPT 32 U/L (13-56); Albumin, Serum 3.4 g/dL (3.2-5.0); Alkaline Phosphatase 213 U/L (45-117); Anion Gap 9 (5-15); BUN 12 mg/dL (7-18); BUN/Creat Ratio 13.7 RATIO (10-20); Calcium,Total 8.6 mg/dL (8.5-10.1); Chloride 103 mmol/L (98-107); Creatinine, Serum 0.88 mg/dL (0.55-1.02); EST Glomerular Filtration Rate 68 mL/min (>60); Est Glom Filt Rate - Afr Amer 82 mL/min (>60); Globulin 3.8 g/dL (2.2-4.2); Glucose 92 mg/dL (74-106); Potassium 4.3 mmol/L (3.5-5.1); Protein, Total 7.2 g/dL (6.4-8.2); Sodium Level 140 mmol/L (136-145); Thyroid Stim Hormone (TSH) 0.56 uIU/mL (0.358-3.74)
[2017-10-21 18:25] LABS: Vitamin D,25 Hydroxy 30.1 ng/mL (29.95-100.01)
== END ==
PROVIDERS: Family Provider Family Medicine Geriatric Medicine; PCP Family Medicine Geriatric Medicine; Visit Provider Family Medicine Geriatric Medicine
DX: E55.9 Vitamin D deficiency, unspecified (principal); I10 Essential (primary) hypertension
CPT/HCPCS: 36415; 80053; 82306; 84443; 85025

== ENCOUNTER → 2017-12-17 16:26 | Outpatient (CLI) | payer MEDICARE, OTHER, SELFPAY ==
--- NOTE | 2017-12-17 16:48 | RAD_ITS ---
STUDY: X-RAY - ABDOMEN/PELVIS REASON FOR EXAM: Female, 72 years old. Chest and abdominal pain. TECHNIQUE: Supine view. COMPARISON: CT abdomen 03/02/2013. FINDINGS: Normal visualized lung bases. There is a nonobstructive bowel gas pattern. Low to moderate stool burden. There is no organomegaly or abnormal calcification. Cholecystectomy clips are noted in the right upper quadrant. Normal visualized osseous structures. RAD/Abdomen Single View IMPRESSION: Normal x-ray examination of the abdomen and pelvis. Electronically Signed: Bessie Singh MD at 17:45 EST Tel , Service support ,
--- NOTE | 2017-12-17 16:48 | RAD_ITS ---
STUDY: X-RAY CHEST REASON FOR EXAM: Female, 72 years old. Chest and abdominal pain. TECHNIQUE: Frontal and lateral views of the chest. COMPARISON: July 26, 2017 FINDINGS: The lungs are mildly hyperexpanded with a diffuse interstitial pattern unchanged. There is no demonstrated pleural abnormality. There is borderline cardiomegaly with sternotomy wires unchanged. Normal mediastinum and beverly. Normal visualized pulmonary arteries. Normal visualized aortic arch and descending thoracic aorta. Normal visualized thoracic spine. Normal visualized ribs, clavicles, and shoulders. There is no demonstrated abnormality of the visualized soft tissue structures of the upper abdomen. RAD/Chest PA and Lateral IMPRESSION: Stable appearance of the chest with no new or acute finding. Electronically Signed: Waqar Cardona MD at 17:12 EST , Service support ,
[2017-12-17 17:20] LABS: Absolute Lymphocyte Count 3.32 X10^3/ul (0.83-4.51); Absolute Neutrophil Count 8.3 X10^3/uL (2.0-7.7); Basophil# 0.03 X10^3/uL; Basophil% 0.2 % (0-1); Eosinophil# 0.23 X10^3/uL; Eosinophils% 1.8 % (0-5); Hematocrit 40.6 % (37-47); Hemoglobin 12.6 g/dl (12.0-15.0); Lymphocyte # 3.32 X10^3/ul (4.0); Lymphocyte % 26.5 % (19-41); Mean Corpuscular Hgb 26.1 pg (27.0-32.0); Mean Corpuscular Volume 84.2 fL (81-99); Mean Platelet Vol. 11.1 fl (6.2-12.0); Monocyte# 0.58 X10^3/uL; Monocyte% 4.6 % (0-10); Neutrophil # 8.34 X10^3/uL (2.7-7.7); Neutrophil % 66.7 % (47-70); Platelet Count 292 K/mm3 (150-450); RBC Distribution Width CV 16.8 % (11.6-14.6); RBC Distribution Width SD 51.1 fl (35.1-43.9); Red Blood Count 4.82 M/mm3 (4.2-5.4); White Blood Count 12.5 K/mm3 (4.4-11.0)
[2017-12-17 17:44] LABS: BNP,B-Type NATRIURETIC PEPTIDE 118.1 pg/mL (0-100); D-Dimer Quantitative (DVT/PE) 0.64 FEU/ug/m (0.27-0.49)
[2017-12-17 17:46] LABS: AST(SGOT) 16 U/L (15-37); Alanine Aminotransfer ALT/SGPT 25 U/L (13-56); Albumin, Serum 3.6 g/dL (3.2-5.0); Alkaline Phosphatase 116 U/L (45-117); Anion Gap 7 (5-15); BUN 18 mg/dL (7-18); BUN/Creat Ratio 19.2 RATIO (10-20); CPK Total, Creatine Kinase 65 U/L (26-192); Calcium,Total 8.6 mg/dL (8.5-10.1); Chloride 101 mmol/L (98-107); Creatinine, Serum 0.94 mg/dL (0.55-1.02); EST Glomerular Filtration Rate 63 mL/min (>60); Est Glom Filt Rate - Afr Amer 76 mL/min (>60); Globulin 3.7 g/dL (2.2-4.2); Glucose 109 mg/dL (74-106); Protein, Total 7.3 g/dL (6.4-8.2); Sodium Level 140 mmol/L (136-145)
[2017-12-17 18:06] LABS: Differential Indicated SCAN CRITERIA MET; POSITIVE COUNT NO; POSITIVE DIFFERENTIAL NO; POSITIVE MORPHOLOGY YES
[2017-12-17 18:07] LABS: Platelet Estimate ADEQUATE (ADEQ); Reactive Lymphocyte 1+; Red Cell Morphology NORM C+C NORMAL (NORM C&C)
[2017-12-19 10:55] LABS: Myoglobin, Serum < 21 ng/mL (25-58)
== END ==
LOC: POLAB3 16:27 → RAD 16:46
PROVIDERS: Family Provider Family Medicine Geriatric Medicine; PCP Family Medicine Geriatric Medicine; Referring Provider Family Medicine Geriatric Medicine; Visit Provider Family Medicine Geriatric Medicine
DX: N39.0 Urinary tract infection, site not specified (principal); R06.02 Shortness of breath; R07.9 Chest pain, unspecified; R10.9 Unspecified abdominal pain
CPT/HCPCS: 36415; 71046; 74018; 80053; 82550; 83874; 83880; 84484; 85025; 85379; 87086; 87088

== ENCOUNTER 2017-12-28 07:59 | Day surgery (SDC) | payer MEDICARE, OTHER, SELFPAY ==
[2017-12-25 08:09] VITALS: BMI 28.9
[2017-12-28] VITALS (33 sets, daily range): BP systolic 113–199; BP diastolic 24–89; PULSE 53–76; RESP 10–24; TEMP 36.6–36.7; O2SAT 91–97; BMI 28.9; BMI 29.2
--- NOTE | 2017-12-28 09:35 | CL.D_ITS ---
Patient Name: MAURICE WALLACE Study Date: 12/28/2017 Performing: Gordy Pedroza MD Ht: 61.02 inches 155 cm : 1945 Wt: 152.12 lbs 69 kg Age: 72 Gender: female BSA: 1.68 PROCEDURE(S) PERFORMED FP32-MYU/COR/LV/CABG CLINICAL PROFILE AND INDICATIONS Indications: Worsening Angina Heart Failure: None Stress/Imaging Stress Test w/SPECT MPI: Yes Result: NegativeStress Test with SPECT MPI: Negative CAD Presentations: Unstable angina. CONCLUSIONS Severe stenosis noted prior to the right coronary artery stent as well as moderately severe stenosis noted distal to the right coronary artery stent. Left internal mammary artery to the left anterior d escending artery patent. Left anterior descending artery occluded. Left circumflex artery with prev iously placed stents patent. Saphenous vein graft to the right coronary artery and obtuse marginal b ranches are occluded. RECOMMENDATIONS Referred for immediate PCI DESCRIPTION OF PROCEDURE The patient arrived to the procedure lab. The risks and benefits of the procedure as well as a full d escription of our services here and current unavailability of surgical backup were fully explained to the patient and/or their significant other prior to the catheterization. The Timeout was completed, verifying the correct patient and procedure. The patient's procedural site was prepped and draped in the usual fashion. Local anesthetic was given subcutaneously to right groin region with Lidocaine 2%. Using a modified Seldinger technique, arterial access was obtained via the right femoral artery, a 5 Fr sheath was inserted. Left Coronary Artery selective angiography was performed in multiple views u sing a 5 Fr. JL4 catheter. Right Coronary Artery selective angiography was then performed in multiple views using a 5 Fr. 3DRC (Navid) catheter. Left internal mammary artery graft to the LAD selectiv e angiography was performed in multiple views using a 5 Fr. IM catheter. Left Ventriculography was performed in BEARD projection using a 5 Fr. Pigtail catheter. LV to AO pullback pr essures were then recorded. CORONARY ANGIOGRAPHY DOMINANCE: Right Dominant LEFT HEART ASSESSMENT Left Ventricular Ejection Fraction: by LV Gram 65 % Normal Left Ventricular systolic function LEFT MAIN: Mild luminal irregularities LEFT ANTERIOR DECENDING ARTERY: OSTIAL LAD: is occluded CIRCUMFLEX ARTERY: MID CIRC: Previously placed stent is patent OM 1: Ostial - Mild luminal irregularities less than 30% RIGHT CORONARY ARTERY: PROX RCA: Mild luminal irregularities less than 30% MID RCA: 95 prior to stent % Stenosis, Previously placed stent is patent DISTAL RCA: 60 post stent stenosis % Stenosis GRAFTS: SY graft to the Mid LAD is patent Saphenous Vein graft to the 1st OM is totally occluded Saphenous Vein graft to the RCA is totally occluded COMPLICATIONS PROCEDURE MEDICATIONS Versed 1 mg IV Versed 1 mg IV Fentanyl 50 mcg IV Oxygen: 2 L/min via nasal cannula Heparin 6000 unit(s) IV 12/28/2017 09:26:33 Nitro 200 mcg IC 12/28/2017 09:30:49 SUMMARY OF HEMODYNAMIC DATA Time AIR REST ECG 08:28:59 AO 180/63 (106) SA 09:05:23 LV 198/0, 23 09:18:03 LV 187/0, 22 09:18:09 LV 189/1, 25 09:19:12 LVp 192/-4, 16 09:19:16 AOp 187/64 (111) 09:19:21 Signed By Gordy Pedroza MD On 12/28/2017 9:34:28 AM Gordy Pedroza MD
[2017-12-28 10:21] LABS: ACT Activated Clotting Time 208 sec (74-137)
--- NOTE | 2017-12-28 10:50 | EKG12_ITS ---
Test Reason : Blood Pressure : / mmHG Vent. Rate : 054 BPM Atrial Rate : 054 BPM P-R Int : 190 ms QRS Dur : 080 ms QT Int : 480 ms P-R-T Axes : 005 068 093 degrees QTc Int : 455 ms Sinus bradycardia Nonspecific T wave abnormality Abnormal ECG When compared with ECG of 26-JUL-2017 19:17, Vent. rate has decreased BY 28 BPM Nonspecific T wave abnormality no longer evident in Inferior leads Confirmed by CONSUELO GOLD, EDDY ([id number]), editorial writer DAVID CARMONA ([id number]) on 01/01/2018 2:05:09 PM Referred By: Eddy Pedroza Confirmed By:EDDY PEDROZA MD
[2017-12-28] MEDS: 0.9% Normal Saline 1,000 ML 150 ML IV (11:20)
[2017-12-28 12:35] LABS: ACT Activated Clotting Time 158 sec (74-137)
[2017-12-28] MEDS: Labetalol 20 MG/4 ML Vial 5 MG IV (13:07)
[2017-12-28] MEDS: LORazepam 1 MG Tablet PO ×2 (13:13→20:44)
[2017-12-28] MEDS: Nitroglycerin Oint 1 INCH PACKET TRANSDERM. (13:13)
--- NOTE | 2017-12-28 13:47 | CRPHASE1 ---
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:: Humberto Ramirez Refer Phase II:: Yes Phase II Referral:: [facility] Start Phase II:: After follow up visit with cardiology Phase I Charge:: Level I - Education Risk Factors/Lifestyle Smoking Status: Current every day smoker Hx Hypertension: Yes Hx Metabolic Disorders: Yes Hx Dyslipidemia: Yes Hx Obesity: Yes Height: 5 ft 1 in Weight:: 155 lb BMI: 29.2 Post-Menopausal: Yes Stress: Long-standing Risk Factor for Sedentary Lifestyle: Highest Risk Family History: Heart Disease Past Cardiac Illness: Coronary Artery Disease, Previous PCI w/Stent, Coronary Artery Bypass Graft Phase I Education Given On:: [place], Nutrition, Antiplatelet medication, CHF, Smoking cessation Issues Affecting Care:: None Knowledge of Condition:: Yes Learning Preferences: Verbal, Written, Audio/Visual, Demonstration Medical/Surgical History Angina:: Yes CAD:: Yes JAIME:: Yes Hypertension:: Yes Dyslipidemia:: Yes Arthritis:: Yes Anxiety:: Yes CABG: Yes PTCA:: Yes Discharge/Home/Social Eval Exercise/Recreation/Interests:: States has a bad back so exercise is minimal
--- NOTE | 2017-12-28 13:51 | CRPHASE1_ITS ---
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 [employer] Department:: Humberto Ramirez Refer Phase II:: Yes Phase II Referral:: [facility] Start Phase II:: After follow up visit with cardiology Phase I Charge:: Level I - Education Risk Factors/Lifestyle Smoking Status: Current every day smoker Hx Hypertension: Yes Hx Metabolic Disorders: Yes Hx Dyslipidemia: Yes Hx Obesity: Yes Height: 5 ft 1 in Weight:: 155 lb BMI: 29.2 Post-Menopausal: Yes Stress: Long-standing Risk Factor for Sedentary Lifestyle: Highest Risk Family History: Heart Disease Past Cardiac Illness: Coronary Artery Disease, Previous PCI w/Stent, Coronary Artery Bypass Graft Phase I Education Given On:: [place], Nutrition, Antiplatelet medication, CHF, Sm oking cessation Issues Affecting Care:: None Knowledge of Condition:: Yes Learning Preferences: Verbal, Written, Audio/Visual, Demonstration Medical/Surgical History Angina:: Yes CAD:: Yes JAIME:: Yes Hypertension:: Yes Dyslipidemia:: Yes Arthritis:: Yes Anxiety:: Yes CABG: Yes PTCA:: Yes Discharge/Home/Social Eval Exercise/Recreation/Interests:: States has a bad back so exercise is minimal
--- NOTE | 2017-12-28 13:53 | CRPH1.INST_ITS ---
General Education CAD and cardiac anatomy and function:: Patient communicates acknowledgment, Needs reinforcement Explanation of diagnoses and procedures:: Patient communicates acknowledgment, Needs reinforcement Sign/Symptoms of [place]:: Patient communicates acknowledgment, Needs reinforcement Antiplatelet therapy: Patient communicates acknowledgment, Needs reinforcement Proper use of NTG-SL: Patient communicates acknowledgment, Needs reinforcement Emergency procedures and activation of EMS: Patient communicates acknowledgment, Needs reinforcement Compliance of all prescribed medications: Patient communicates acknowledgment, Needs reinforcement Smoking Patient Nicotine/Smoking Risk Factors Are:: Cigarettes Recommendations Include:: Smoking cessation strategies/Smoking packet, Second- hand smoke recommendation, Participation in a smoking cessation program Nicotine/Smoking Response Code:: Patient communicates acknowledgment, Needs reinforcement Dyslipidemia Patient Dyslipidemia Risk Factors Are:: Total Cholesterol, Triglycerides, HDL, LDL Recommendations Include:: Lipid profile provided, Reviewed NCEP/ATP guidelines, Therapeutic Lifestyle Change dietary guidelines Dyslipidemia Response Code:: Patient communicates acknowledgment, Needs reinforcement Overweight/Obesity Patient Overweight/Obesity Risk Factors Are:: Overweight = 26-29 Recommendations Include:: Weight loss of 5-10%, Reduced calorie diet, Exercise 5-7 times/week Overweight/Obesity:: Patient communicates acknowledgment, Needs reinforcement Hypertension Recommendations Include:: Maintain BP <130/85, DASH dietary guidelines, Decrease/maintain normal body weight, Moderation of ETOH Hypertension:: Patient communicates acknowledgment, Needs reinforcement Heart Disease Patient Heart Disease Risk Factors Are:: Family history of heart disease < 65 years old, Previous cardiac event Recommendations Include:: Educated family members of their risk, Educated family members of importance of prevention of heart disease Heart Disease Response Code:: Patient communicates acknowledgment, Needs reinforcement Diabetes Patient Diabetes Risk Factors Are:: No documented hx of diabetes Diabetes:: Not instructed Metabolic Syndrome Patient Metabolic Syndrome Risk Factors Are [3 of 5]:: Waist circumference > 35 [female] or 40 [male], Hypertension, Low HDL <40 [male] or < 50 [female] Recommendations Include:: Reinforce compliance to risk factor modifications, Encouraged follow-up with Primary Care Physician Metabolic Syndrome Response Code:: Patient communicates acknowledgment, Needs reinforcement Sedentary Patient Sedentary Risk Factors Are:: Lack of regular exercise Recommendations Include:: Aerobic exercise 5-7 times/week for 20-30 minutes continuously, Benefits of regular exercise, Discussed home walking program, Monitored Outpatient Cardiac Rehab Sedentary Response Code:: Patient communicates acknowledgment, Needs reinforcement Stress Recommendations Include:: Identification of stressors, and assessment of coping skills, Stress management techniques Stress Response Code:: Patient communicates acknowledgment, Needs reinforcement
[2017-12-28] MEDS: Isosorbide Mononitrate 60 MG Tablet PO (15:05)
[2017-12-28] MEDS: Citalopram 20 MG Tablet PO (16:13)
[2017-12-28] MEDS: Ipratropium/Albuterol Sulfate 3 ML AMPUL.NEB INHALATION (18:42)
[2017-12-28] MEDS: Budesonide Respules 0.5 MG/2 ML AMPUL.NEB. INHALATION (18:42)
[2017-12-28] MEDS: buPROPion (SR) 150 MG Tablet.SA PO (20:45)
[2017-12-28] MEDS: Atorvastatin Calcium 10 MG Tablet 5 MG PO (20:50)
[2017-12-29] VITALS (13 sets, daily range): BP systolic 129–183; BP diastolic 31–57; PULSE 61–79; RESP 16–24; TEMP 36.6–36.9; O2SAT 93–98
[2017-12-29 04:20] LABS: Hemoglobin 10.4 g/dl (12.0-15.0); Mean Corp Hgb Conc 31.5 g/gl (32-36); Mean Corpuscular Hgb 27.2 pg (27.0-32.0); Mean Corpuscular Volume 86.2 fL (81-99); Mean Platelet Vol. 11.5 fl (6.2-12.0); Platelet Count 193 K/mm3 (150-450); RBC Distribution Width CV 17.7 % (11.6-14.6); RBC Distribution Width SD 54.9 fl (35.1-43.9); Red Blood Count 3.83 M/mm3 (4.2-5.4)
[2017-12-29 04:22] LABS: Anion Gap 6 (5-15); BUN 19 mg/dL (7-18); BUN/Creat Ratio 21.9 RATIO (10-20); Calcium,Total 7.7 mg/dL (8.5-10.1); Chloride 107 mmol/L (98-107); Cholesterol 107 mg/dL (200); Creatinine, Serum 0.87 mg/dL (0.55-1.02); EST Glomerular Filtration Rate 69 mL/min (>60); Est Glom Filt Rate - Afr Amer 83 mL/min (>60); Glucose 112 mg/dL (74-106); High Density Lipoprotein 41 mg/dL; Potassium 3.9 mmol/L (3.5-5.1); Sodium Level 143 mmol/L (136-145); Triglycerides 89 mg/dL; Very Low Density Lipoprotein 18 mg/dL (5-40)
[2017-12-29 04:26] LABS: Scan Indicated on CBC? Y/N NO
[2017-12-29] MEDS: Atenolol 25 MG Tablet 12.5 MG PO (04:38)
[2017-12-29] MEDS: Lisinopril 40 MG Tablet PO (04:38)
[2017-12-29] MEDS: Levothyroxine 75 MCG Tablet PO (04:39)
[2017-12-29] MEDS: LORazepam 1 MG Tablet PO (05:56)
[2017-12-29] MEDS: Nitroglycerin Oint 1 INCH PACKET TRANSDERM. (06:05)
[2017-12-29] MEDS: Budesonide Respules 0.5 MG/2 ML AMPUL.NEB. INHALATION (06:56)
[2017-12-29] MEDS: Ipratropium/Albuterol Sulfate 3 ML AMPUL.NEB INHALATION (06:56)
--- NOTE | 2017-12-29 08:00 | PN.CARD_ITS ---
Subjectve: Patient seen and evaluated. Appears to be doing much better this morning. No complaints of chest pain. Objective: Vital Signs Temp Pulse Resp BP Pulse Ox 98.2 F 70 16 182/52 H 98 12/29/17 04:00 12/29/17 06:56 12/29/17 06:56 12/29/17 06:05 12/29/17 06:56 Oxygen Delivery Method Room Air Weight: 156 lb 11.979 oz Body Mass Index (BMI) 28.9 Finger Stick Blood Glucose 145 Intake and Output for Last 24 Hours 12/27/17 12/28/17 12/29/17 23:59 23:59 23:59 Intake Total 1300 / 1300 600 / 600 Output Total 500 / 500 Balance 800 / 800 600 / 600 General: Awake, Alert, Oriented x 3 HEENT: PERRL, EOMI, Sclera Non Icteric Neck: Supple, Good ROM, No Lymph Node Enlargement Lungs: Clear to auscultation Cardiovascular: Regular Rhythm, Normal S1, Normal S2, No Murmurs, No Rubs, No Gallops Vascular: No Carotid Bruits, Normal Femoral Pulses, Normal Radial Pulses, Normal Dorsalis Pedal Pulse, Normal Posterior Tibial Pulses Abdomen: Bowel Sounds Present, Soft, Non Tender, No HSM, No Organomegaly Extremities: No Cyanosis, No Clubbing, No edema Neurological: No Focal Motor or Sensory Deficit 12/29/17 03:55: WBC 10.0, RBC 3.83 L, Hgb 10.4 L, Hct 33.0 L, MCV 86.2, MCH 27.2, MCHC 31.5 L, RDW 17.7 H, RDW Differential 54.9 H, Plt Count 193, MPV 11.5 12/29/17 03:55: Sodium 143, Potassium 3.9, Chloride 107, Carbon Dioxide 30.0, Anion Gap 6, BUN 19 H, Creatinine 0.87, Est GFR (MDRD) Af Amer 83, Est GFR (MDRD) Non-Af 69, BUN/Creatinine Ratio 21.9 H, Glucose 112 H, Calcium 7.7 L, Triglycerides 89, Cholesterol 107, LDL Cholesterol 48, VLDL Cholesterol 18, HDL Cholesterol 41 Rhythm: EKG: ECHO: Stress Test: Cardiac Cath: PCI: CT Surgery: Holter monitor: EPS: PPM: CXR: Chest CT Scan: Medical Necessity - Tobacco Use Smoking Status: Current every day smoker Tobacco Use: Cigarettes Assessment/Plan 1. Coronary artery disease. Patient underwent cardiac catheterization and it demonstrated evidence of a patent left internal mammary artery to the left anterior descending artery Dominant right coronary artery with evidence of a stent pre-stent stenosis as well as post stent stenosis. The above was angioplastied and stented with a drug-eluting stent in the mid and proximal portion of the right coronary artery. Patient tolerated the procedure well. There are no EKG changes today and hemoglobin has remained stable as well as creatinine also remaining stable. Would recommend discharge on current medications * Smoking cessation has been emphasized * Continue lipid-lowering medication * Cardiac rehabilitation to be instituted 2. Hypertension * Resume lisinopril * Resume Tenormin * Consider the addition of a calcium channel estefania when patient is seen in the office * 3. Hyperlipidemia * Continue aggressive risk factor modification * * Thank you for allowing me to participate in the care of your patient. Please don't hesitate to call if any issues arise
--- NOTE | 2017-12-29 08:03 | DCINST_ITS ---
Discharge Diet: Low fat/ Low Cholesterol Lifting Restrictions: 10 pounds and also avoid any pushing or pulling for 3 days after your test. Additional Activity Instructions:: You must have someone drive you home. Do not drive until instructed by your doctor. You must have someone stay with you all night after your test. Rest in bed or on the couch until the next morning. Limit the number of times you go up and down stairs the day of your test. Apply pressure to the puncture site if you sneeze or cough. Call your doctor if your incision/area has: Increased Pain/ Swelling, Increased Redness, Foul Smelling Discharge, Swelling at the incision site Call your doctor if you observe: Fever of 101 or Higher Additional Dressing/Incision Instructions:: Keep the dressing (bandage) on until the next morning. You may then shower, but do not take a tub bath for 5 days after your test. It is normal to have some tenderness and discomfort at the puncture site. Sometimes bruising also occurs. However, if pain, numbness, or coldness occurs below the puncture site (in your leg, toes, arms or fingers) call your doctor at once. You may have a small, marble sized knot at the puncture site. This is normal. Do not rub it. It will go away in 4-6 weeks. Bleeding can occur from the area where the puncture was done. Blood may spurt or drip from the site. If blood spurts, apply pressure right away to stop bleeding and call 911. Although rare, bleeding into the tissue (hematoma) can also occur. If this happens, a large, firm area goose egg under the skin will appear. If any of these occur, lie down as flat as you can and have someone apply firm pressure to the cath site with a gauze pad or a clean washcloth for 10-15 minutes. Call 911 or go to the Emergency Department. Allergies/Adverse Reactions: Allergies morphine Allergy (Verified 12/18/17 10:14) PT UNSURE Penicillins Allergy (Verified 12/18/17 10:14) Hives tramadol HCl [From Ultram] Allergy (Verified 12/18/17 10:14) PT UNSURE Medications to take at Discharge Aspirin E.C. [Ecotrin] 81 mg PO DAILY@0800 09/06/17 Levothyroxine [Synthroid] 75 mcg PO DAILY 09/06/17 atenolol 25 mg tablet 25 mg PO .COMPLEX 12/18/17 bupropion HCl SR 150 mg tablet,12 hr sustained-release 150 mg PO BID 12/18/17 citalopram 40 mg tablet 40 mg PO .COMPLEX 12/18/17 clopidogrel 75 mg tablet 75 mg PO .COMPLEX 12/18/17 esomeprazole magnesium 20 mg capsule,delayed release 20 mg PO .COMPLEX 12/18/17 ipratropium 20 mcg-albuterol 100 mcg/actuation mist for inhalation 1 puff INHALATION Q6H 12/18/17 lisinopril 40 mg tablet 40 mg PO DAILY tab 12/18/17 lorazepam 1 mg tablet 1 mg PO TID tab 12/18/17 lovastatin 20 mg tablet 20 mg PO DAILY 12/18/17 tiotropium 2.5 mcg-olodaterol 2.5 mcg/actuation mist for inhalation 1 puff INHALATION DAILY g 12/18/17 Primary Care Physician: Ino Silva Chi, MD [Primary Care Provider] - Test Results: Test results from this visit will be discussed in further detail at your follow- up appointment, if applicable. Please Follow Up With: dr epstein office. they will call with appt Cardiac Rehabilitation Info Cardiac Rehabilitation Program Information: Cardiac Rehabilitation is important for patients like you who are recovering from a heart problem. Cardiac rehabilitation programs are recognized as integral to the continued care of the patient with coronary heart disease. The cardiac rehabilitation program is designed to optimize a patient's physical, psychological, and social functioning. Health pet care assistant work in cardiac rehabilitation programs and assist you with getting the treatments you need to get stronger and healthier - like exercise, healthy eating habits, and medications. Cardiac rehabilitation has been show to help people with heart problems live longer and have better life enjoyment than people who do not go to cardiac rehabilitation. Please contact the Cardiac Rehabilitation Program at [facility] at in two weeks if you have not heard from them.
[2017-12-29] MEDS: Aspirin E.C. 81 MG Tablet PO (08:15)
[2017-12-29] MEDS: Pantoprazole Sodium 40 MG Tablet PO (08:15)
[2017-12-29] MEDS: Citalopram 40 MG TABLET PO (08:15)
[2017-12-29] MEDS: buPROPion (SR) 150 MG Tablet.SA PO (08:16)
[2017-12-29] MEDS: Atenolol 25 MG Tablet PO (08:47)
--- NOTE | 2017-12-29 09:56 | CL.I_ITS ---
Patient Name: MAURICE WALLACE Study Date: 12/28/2017 Performing: Humberto Ramirez MD Ht: 61 inches 155 cm : 1945 Wt: 152.3 lbs 69 kg Age: 72 Gender: female BSA: 1.68 PROCEDURE(S) PERFORMED [id number] W OR WO PTCA, SINGLE CORONARY ARTERY CLINICAL PROFILE AND CO-MORBIDITIES Indications: Worsening Angina Heart Failure: None Stress/Imaging Stress Test w/SPECT MPI: Yes Result: Negative Stress Test with SPECT MPI: Negative CAD Presentations: Unstable angina. CONCLUSIONS Successful PTCA/BRIANA of mid RCA ISR with a 2.0 x 10 Angiosculpt, followed by a 2.5 x 38 Promus Synergy , post dilated throughout with a 3.0 x 12 NC Balloon; 85%-->0%, no dissection. Successful PTCA/BRIANA proximal RCA with a 2.5 x 12 Promus Synergy, post dilated with a 3.0 x 12 NC ball oon; 75%-->0%, no dissection. 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 Pedroza DESCRIPTION OF PROCEDURE The patient arrived to the procedure lab. The risks and benefits of the procedure as well as a full d escription of our services here and current unavailability of surgical backup were fully explained to the patient and/or their significant other prior to the catheterization. The Timeout was completed, verifying the correct patient and procedure. The patient's procedural site was prepped and draped in the usual fashion. Local anesthetic was given subcutaneously to right groin region with Lidocaine 2% Using a modified Seldinger technique,arterial access was obtained via the right femoral artery, a 5Fr sheath was inserted. Left Coronary Artery selective angiography was performed in multiple views usin g a 5 Fr. JL4 catheter. Right Coronary Artery selective angiography was then performed in multiple vi ews using a 5 Fr. 3DRC (Navid) catheter. Left internal mammary artery graft to the LAD selective a ngiography was performed in multiple views using a 5 Fr. IM catheter. Left Ventriculography was performed in BEARD projection using a 5 Fr. Pigtail catheter. LV to AO pullback pr essures were then recorded.The images were reviewed and options discussed. A decision was then made t o proceed with an Intervention, IVUS or other adjunct procedure. Arterial sheath was exchanged for a 6 Fr Sheath. HSII Guide catheter was inserted and engaged int o the RCA. HS II SH Guide catheter was inserted and engaged into the RCA. BMW Guide wire was advanced to the RCA. Angiogram performed pre balloon dilatation. Emerge 2.00x12 Balloon catheter was inserted . PTCA balloon inflated at 8 atms for 13 secs. PTCA balloon inflated at 8 atms for 13 secs. Angiogram performed post balloon dilatation. Cutting balloon catheter was inserted angiosculpt 2.0x10 Cutting balloon catheter was inserted angiosculpt 2.0x10 Synergy 2.50x38 Drug Eluting stent was inserted. Ang iogram performed post stent deployment. NC emerge 3.00x12 Balloon catheter was inserted. PTCA balloon inflated at 12 atms for 12 secs. PTCA balloon inflated at 14 atms for 14 secs. PTCA balloon inflated at 6 atms for 12 secs. Synergy 2.50x12 Drug Eluting stent was inserted. Angiogram performed post heri nt deployment. NC emerge 3.00x12 Balloon catheter was inserted. PTCA balloon inflated at 8 atms for 10 secs. PTCA balloon inflated at 8 atms for 12 secs. Angiogram performed post balloon dilat ation. NC Emerge 3.00x12 Balloon catheter was inserted. PTCA balloon inflated at 12 atms for 13 secs. Angiogram performed post balloon dilatation. NC Emerge 3.00x8 Balloon catheter was inserted. PTCA ba lloon inflated at 17 atms for 23 secs. Angiogram performed post balloon dilatation. Contrast was inje cted through the sheath and the Right Iliac and Femoral artery were assessed for possible closure dev ice. The arterial sheath was sutured in place and capped INTERVENTION INFORMATION LESION SITE: RCA (Mid) Lesion Complexity: High/C, lesion at bifurcation: No, thrombus present: No, lesion length: 38 mm, cul prit lesion: Yes, In-stent restenosis: Yes Pre Stenosis: 85 % Pre intervention SAL flow: 3 PROCEDURE: Balloon Angioplasty, Drug Eluting Stent with pre and post dilatation, Cutting Balloon Angioplasty Post Stenosis: 0 % Post intervention SAL flow: 3 Lesion Devices: Diaz .014 BMW [place] Straight 190cm Cordiatronic 6 Fr HSII SH 100cm Guide Catheter Brandt Sci EMERGE MR 2.00x12 BALLOON [employer] Angiosculpt RX 2.0x10 Scoring Balloon Brandt Sci Synergy MR BRIANA 2.50x38 Brandt Sci NC EMERGE MR 3.00x12 BALLOON LESION SITE: RCA (Proximal) Lesion Complexity: Non-High/Non-C, lesion at bifurcation: No, thrombus present: No, lesion length: 12 mm, culprit lesion: No Pre Stenosis: 75 % Pre intervention SAL flow: 3 PROCEDURE: Drug Eluting Stent with pre and post dilatation Post Stenosis: 0 % Post intervention SAL flow: 3 Lesion Devices: Diaz .014 BMW [place] Straight 190cm Medtronic 6 Fr HSII SH 100cm Guide Catheter Brandt Sci NC EMERGE MR 3.00x12 BALLOON Brandt Sci Synergy MR BRIANA 2.50x12 Brandt Sci NC EMERGE MR 3.00x08 BALLOON COMPLICATIONS No Complications PROCEDURE MEDICATIONS Versed 1 mg IV Versed 1 mg IV Fentanyl 50 mcg IV Oxygen: 2 L/min via nasal cannula Heparin 6000 unit(s) IV 12/28/2017 09:26:33 Nitro 200 mcg IC 12/28/2017 09:30:49 Nitro 200 mcg IC 12/28/2017 09:30:49 Nitro 200 mcg IC 12/28/2017 09:36:36 Nitro 200 mcg IC 12/28/2017 09:50:00 Nitro Paste 1 in 12/28/2017 10:20:33 SUMMARY OF HEMODYNAMIC DATA Time AIR REST ECG 08:28:59 AO 180/63 (106) SA 09:05:23 LV 198/0, 23 09:18:03 LV 187/0, 22 09:18:09 LV 189/1, 25 09:19:12 LVp 192/-4, 16 09:19:16 AOp 187/64 (111) 09:19:21 AO 146/55 (87) 09:58:55 Signed By Humberto Ramirez MD On 12/29/2017 09:56:18 Humberto Ramirez MD
--- NOTE | 2017-12-29 10:00 | EKG12_ITS ---
Test Reason : AM EKG Blood Pressure : / mmHG Vent. Rate : 063 BPM Atrial Rate : 063 BPM P-R Int : 188 ms QRS Dur : 082 ms QT Int : 410 ms P-R-T Axes : 001 059 063 degrees QTc Int : 419 ms Normal sinus rhythm Nonspecific T wave abnormality Abnormal ECG When compared with ECG of 28-DEC-2017 10:36, MANUAL COMPARISON REQUIRED, DATA IS UNCONFIRMED Confirmed by CONSUELO GOLD, EDDY ([id number]), editorial director DAVID CARMONA ([id number]) on 01/01/2018 2:03:34 PM Referred By: Eddy Pedroza Confirmed By:EDDY PEDROZA MD
== END 2017-12-29 08:02 | disposition home or self-care (01) ==
LOC: CLSP 08:02 → ICU 12:37
PROVIDERS: Internal Medicine Cardiovascular Disease; Family Provider Family Medicine Geriatric Medicine; PCP Family Medicine Geriatric Medicine; Referring Provider Internal Medicine Cardiovascular Disease; Visit Provider Internal Medicine Cardiovascular Disease
DX: T82.858A Stenosis of other vascular prosthetic devices, implants and grafts, initial encounter (principal); I25.110 Atherosclerotic heart disease of native coronary artery with unstable angina pectoris; I10 Essential (primary) hypertension; E78.5 Hyperlipidemia, unspecified; Z95.1 Presence of aortocoronary bypass graft; I36.1 Nonrheumatic tricuspid (valve) insufficiency; I27.21 Secondary pulmonary arterial hypertension; F17.210 Nicotine dependence, cigarettes, uncomplicated; F32.9 Major depressive disorder, single episode, unspecified; F41.9 Anxiety disorder, unspecified; J44.9 Chronic obstructive pulmonary disease, unspecified; E03.9 Hypothyroidism, unspecified; G47.33 Obstructive sleep apnea (adult) (pediatric); E66.9 Obesity, unspecified; Z68.28 Body mass index [BMI] 28.0-28.9, adult; Z95.5 Presence of coronary angioplasty implant and graft; Z79.82 Long term (current) use of aspirin; Z79.899 Other long term (current) drug therapy; Z86.73 Personal history of transient ischemic attack (TIA), and cerebral infarction without residual deficits
CPT/HCPCS: 80048; 80061; 85027; 85347; 92928; 93005; 93459; 94640; 97802; 99152; 99153; J7030; J7040; Q9967; C1725; C1769; C1874; C1887; C9600

== ENCOUNTER 2018-01-05 19:47 | Observation (INO) | payer MEDICARE, OTHER, SELFPAY ==
[2017-12-28 10:52] VITALS: BMI 28.9
[2017-12-28 13:50] VITALS: BMI 29.2
[2018-01-05 19:49] VITALS: BP 136/70; PULSE 71; RESP 15; TEMP 36.7; O2SAT 97; BMI 31.1
--- NOTE | 2018-01-05 19:50 | ED.RN ---
CALLED FOR EKG PER RN REQUEST, PULLED OLD EKGS FOR
--- NOTE | 2018-01-05 19:52 | EKG12_ITS ---
Test Reason : CP ADMIT Blood Pressure : / mmHG Vent. Rate : 067 BPM Atrial Rate : 067 BPM P-R Int : 190 ms QRS Dur : 090 ms QT Int : 418 ms P-R-T Axes : 051 055 077 degrees QTc Int : 441 ms Normal sinus rhythm Nonspecific T wave abnormality Abnormal ECG When compared with ECG of 29-DEC-2017 04:34, No significant change was found Confirmed by CONSUELO GOLD, EDDY ([id number]), food expeditor LEX OGLESBY ([id number]) on 01/08/2018 2:04:46 PM Referred By: DR GRESHAM Confirmed By:EDDY CORDERO MD
[2018-01-05 19:54] VITALS: O2SAT 97
--- NOTE | 2018-01-05 20:00 | RAD_ITS ---
STUDY: X-RAY CHEST REASON FOR EXAM: Female, 72 years old. Chest pain TECHNIQUE: Frontal view of the chest COMPARISON: 12/17/2017 FINDINGS: The lungs are clear. There are no pleural effusions. There is no pneumothorax. The heart is mildly enlarged, but stable in size. Again noted are sternotomy wires. RAD/Chest 1 View (Portable) IMPRESSION: No acute thoracic pathology. Electronically Signed: Lee Dunn, at 20:31 EST Tel , Service support ,
[2018-01-05 20:12] LABS: Absolute Neutrophil Count 5.2 X10^3/uL (2.0-7.7); Basophil# 0.04 X10^3/uL; Basophil% 0.4 % (0-1); Eosinophil# 0.24 X10^3/uL; Eosinophils% 2.5 % (0-5); Hematocrit 35.2 % (37-47); Hemoglobin 11.4 g/dl (12.0-15.0); Lymphocyte % 37.9 % (19-41); Mean Corp Hgb Conc 32.4 g/gl (32-36); Mean Corpuscular Volume 86.5 fL (81-99); Mean Platelet Vol. 10.3 fl (6.2-12.0); Monocyte# 0.62 X10^3/uL; Monocyte% 6.3 % (0-10); Neutrophil # 5.15 X10^3/uL (2.7-7.7); Neutrophil % 52.7 % (47-70); Platelet Count 254 K/mm3 (150-450); RBC Distribution Width CV 17.7 % (11.6-14.6); RBC Distribution Width SD 55.9 fl (35.1-43.9); Red Blood Count 4.07 M/mm3 (4.2-5.4); White Blood Count 9.8 K/mm3 (4.4-11.0)
[2018-01-05 20:23] LABS: Prothrombin Time (Protime)PT. 12.9 SECONDS (11.7-14.9)
[2018-01-05 20:28] LABS: BUN 19 mg/dL (7-18); Creatinine, Serum 0.79 mg/dL (0.55-1.02); EST Glomerular Filtration Rate 76 mL/min (>60); Glucose 122 mg/dL (74-106); POSITIVE COUNT NO; POSITIVE DIFFERENTIAL NO; POSITIVE MORPHOLOGY NO
[2018-01-05 20:29] LABS: Anion Gap 5 (5-15); BUN/Creat Ratio 24.1 RATIO (10-20); Calcium,Total 8.1 mg/dL (8.5-10.1); Chloride 107 mmol/L (98-107); Est Glom Filt Rate - Afr Amer 92 mL/min (>60); Potassium 3.6 mmol/L (3.5-5.1); Sodium Level 141 mmol/L (136-145)
--- NOTE | 2018-01-05 21:00 | RAD_ITS ---
STUDY: X-RAY - BILATERAL HIPS WITHOUT PELVIS REASON FOR EXAM: Female, 72 years old. Pain TECHNIQUE: 2 views of the right hip, and 2 views of the left hip were obtained. COMPARISON: None. FINDINGS: Right Hip: No fracture or dislocation. Mild degenerative change. Left Hip: No fracture or dislocation. Mild degenerative change. RAD/Hips B/L min 2 views w/ Pelvis IMPRESSION: No fracture or dislocation in the pelvis and bilateral hips. Mild degenerative change. Electronically Signed: Lee Dunn, at 21:29 EST Tel , Service support ,
--- NOTE | 2018-01-05 21:29 | ED.VISSUMM ---
- ER Visit Summary Date of Service: 01/05/18 Chief Complaint: Chest pain and near syncope History of Present Illness: The patient is a 72 F that is both cardiac cath and 2 cardiac stents approximately a week ago here at [facility]. Other prior cardiac stents and prior triple bypass in 2006. Patient states that she was on the phone had midsternal chest pain that caused her to feel like she may pass out and laid on the ground. But never lost consciousness. She felt dizzy with it. She felt nauseated. Did not vomit. Denies any shortness of breath. Currently her symptoms have resolved. Physical Examination:. She is afebrile. She is in no distress. Her pulse ox is 97% on 2 L. No hypoxia. HEENT exam unremarkable. Neck nontender. No JVD. Lungs clear to auscultation bilaterally. Heart regular rhythm no murmur. Chest wall nontender. Abdomen is soft and nontender. Normal bowel sounds. No peritoneal signs. She is moving all 4 extremities. She has resolving bruising in her right groin from the recent cardiac catheterization. She has soft tissue muscular tenderness in her left groin. Calves are nontender without edema. Neurologically she is awake alert with no Test Results: EKG shows a sinus rhythm rate of 72 with no acute signs of NE or ischemia no change from the prior EKG. Chest x-ray shows no acute abnormality read by myself the radiologist. Prior sternotomy. A pelvis and left hip x-ray was also obtained due to her groin pain which showed no acute abnormality. CBC normal except for hemoglobin of 11. White count of 9. Chemistries unremarkable. Creatinine gap normal. Troponin is normal. Emergency Department Course and Treatment: Repeat exam the patient is doing well at 2120. I discussed with her and her family all test results. She will stay in overnight for further evaluation. Treatment Plan: I am I spoke with the hospitalist is down here admitting the patient. Disposition: Admission Impression: Acute chest pain of uncertain etiology with near syncope. Status post cardiac cath with 2 recent cardiac stents. History of CAD and CABG. This note was generated with [employer] dictation software. It may contain incorrect words, spelling, and punctuation that were not noted in review of the chart prior to signing ED Disposition - Plan for ED Patient: Chief Complaint: Chest Pain Referrals: Ino Silva Chi, MD [Primary Care Provider] -
--- NOTE | 2018-01-05 21:31 | PCM.HP.STD ---
Problem List (1) Chest pain Status: Acute History of Present Illness Date of Admission: 01/05/18 Chief Complaint: chest pain The patient is a 72 year old F with a significant history of COPD; anxiety disorder; TIA; tobacco abuse; CAD status post quadruple bypass and 8 coronary stents with last 2 stents placed in her right coronary artery about a week ago who presented with a transient substernal sharp chest pain that radiated to her left arm and left leg. Associated with her symptoms is nausea; vertigo; lightheadedness and near syncope. Also patient complains of left-sided groin pain that has been going on for 1 month. Of note her recent cardiac cath was done at the opposite side; right groin. ED doctor reported unremarkable pelvic exams. Past Medical History Past Medical History (Chronic Problems): Chronic Problems (Last Reviewed 01/06/18 @ 03:19 by Zachariah Lawrence MD) Non-rheumatic tricuspid valve insufficiency (Chronic) Secondary pulmonary arterial hypertension (Chronic) Nicotine dependence (Chronic) Hyperlipidemia (Chronic) Atherosclerosis of coronary artery of [place] heart with angina pectoris (Chronic) Ipp-DOL-UGD-Mid RCA w/ 2.0 x 10 mm Angiosculpt and 2.5 x 38 mm Promus Synergy Stent, BRIANA-Prox RCA 2.5 x 12 mm Prmomus Synergy Stent 12/28/17 WXR-PVG-Sjkpt Cx w/ 2.5 x 24mm Promus 03/12/2011, TMP-Xsche-QQK;PCI-Prox LAD; CABG x 3 SY-LAD, SVG-OM and SVG-RCA Essential (primary) hypertension (Chronic) TIA (transient ischemic attack) (Chronic) Benzodiazepine dependence (Chronic) Medical History: Medical History (Last Reviewed 01/06/18 @ 03:19 by Zachariah Lawrence MD) Non-rheumatic tricuspid valve insufficiency (Chronic) I36.1 Secondary pulmonary arterial hypertension (Chronic) I27.21 Nicotine dependence (Chronic) F17.200 Hyperlipidemia (Chronic) E78.5 Atherosclerosis of coronary artery of [place] heart with angina pectoris (Chronic) I25.119 Rbp-OMR-ZBH-Mid RCA w/ 2.0 x 10 mm Angiosculpt and 2.5 x 38 mm Promus Synergy Stent, BRIANA-Prox RCA 2.5 x 12 mm Prmomus Synergy Stent 12/28/17 VMS-SKR-Fhxxt Cx w/ 2.5 x 24mm Promus 03/12/2011, MSP-Ofduv-CWM;PCI-Prox LAD; CABG x 3 SY-LAD, SVG-OM and SVG-RCA Essential (primary) hypertension (Chronic) I10 TIA (transient ischemic attack) (Chronic) Benzodiazepine dependence (Chronic) F13.20 Anxiety and depression F41.9, F32.9 Back pain M54.9 COPD (chronic obstructive pulmonary disease) J44.9 Hypothyroidism E03.9 Obstructive sleep apnea G47.33 Allergies morphine Allergy (Verified 01/05/18 19:53) PT UNSURE Penicillins Allergy (Verified 01/05/18 19:53) Hives tramadol HCl [From Ultram] Allergy (Verified 01/05/18 19:53) PT UNSURE Home Medications: Ambulatory Orders Medication Instructions Recorded Aspirin E.C. [Ecotrin] 81 mg PO DAILY@0800 09/06/17 Levothyroxine [Synthroid] 75 mcg PO DAILY 09/06/17 citalopram 40 mg tablet 40 mg PO DAILY 12/18/17 clopidogrel 75 mg tablet 75 mg PO QODAY 12/18/17 esomeprazole magnesium 20 mg 40 mg PO DAILY 12/18/17 capsule,delayed release ipratropium 20 mcg-albuterol 100 1 puff INHALATION Q6H 12/18/17 mcg/actuation mist for inhalation lisinopril 40 mg tablet 40 mg PO DAILY tab 12/18/17 tiotropium 2.5 mcg-olodaterol 2.5 1 puff INHALATION DAILY g 12/18/17 mcg/actuation mist for inhalation Atenolol [Tenormin (beta estefania)] 25 mg PO DAILY 01/05/18 Atorvastatin Calcium 40 mg PO DAILY 01/05/18 Citalopram Hydrobromide 20 mg PO DAILY 01/05/18 [Citalopram HBr] Lorazepam [Ativan] 2 mg PO TID 01/05/18 Pnv No.122/Iron/Folic Acid 1 tab PO DAILY 01/05/18 [ Multi Tablet] Psyllium Husk [Metamucil] 5 ml PO DAILY 01/05/18 Surgical History: Surgical History (Last Reviewed 01/06/18 @ 03:19 by Zachariah Lawrence MD) History of coronary artery stent placement (Resolved) Onset Date: 12/28/17 Z95.5 Omg-WYJ-PAV-Mid RCA w/ 2.0 x 10 mm Angiosculpt and 2.5 x 38 mm Promus Synergy Stent, BRIANA-Prox RCA 2.5 x 12 mm Prmomus Synergy Stent 12/28/17 GCC-MWR-Nekiz Cx w/ 2.5 x 24mm Promus 03/12/2011, WUM-Nklvy-LZR;PCI-Prox LAD; History of coronary artery bypass graft x 3 (Resolved) Z95.1 CABG x 3 SY-LAD, SVG-OM and SVG-RCA History of appendectomy Z90.49 History of left heart catheterization Onset Date: 12/28/17 Z98.890 Hx of cholecystectomy Z90.49 Surgical History: angioplasty - A total of 5 stents, coronary bypass surgery - 3 vessel bypass surgery, - - Tubal ligation; and partial oopherectomy. Psychiatric History: Anxiety [employer] History: No pertinent [employer] history Smoking Status: Current every day smoker - *Family History Paternal History Items: Heart Disease - Father of heart attack at age 64. Maternal History Items: Cancer - Mother of cancer at age 72. Review of Systems Constitutional: Denies: Chills, Fever, Weight Change HEENT: Denies: Head Aches, Sinus Congestion, Sinus Drainage Cardiovascular: Reports: Chest Pain. Denies: Palpitations Respiratory: Denies: Cough, Shortness of breath at rest, Sputum production Gastrointestinal: Reports: Nausea. Denies: Abdominal Pain, Vomiting Genitourinary: Denies: Dysuria Musculoskeletal: Denies: Joint Pain, Joint Tenderness Skin: Denies: Rash, Wounds Neurological: Denies: Numbness, Tingling, Focal weakness Psychiatric: Denies: Anxiety, Depression, Homicidal Ideations, Suicidal Ideations Hematologic/ Lymphatic: Denies: Easy Bruising, Easy Bleeding VTE Information - Inpt Only VTE Present on Admission: No VTE Mechan Device Prophylaxis: None VTE Pharm Prophylaxis ordered?: Yes - Physical Exam General: Alert, Oriented x3, Cooperative HEENT: Atraumatic, PERRLA, EOMI, Normocephalic Neck: Supple, No JVD, Negative Carotid Bruits Lungs: Clear to auscultation, Normal air movement Cardiovascular: Regular rate, No murmurs Abdomen: Bowel Sounds Present, Soft, Non Tender Extremities: No edema, Capillary Refill Less than 3 Seconds, Tenderness - left groin, - Skin: No rashes, No breakdown Musculoskeletal: No Tenderness to Palpation of Joints or Extremities Neurological: Cranial nerves II-XII grossly intact Psych/Mental Status: Normal Affect, Appropriate Vital Signs Temp Pulse Resp BP Pulse Ox 98.1 F 71 15 136/70 H 97 01/05/18 19:49 01/05/18 19:49 01/05/18 19:49 01/05/18 19:49 01/05/18 19:54 Oxygen Flow Rate (L/min) 2 Oxygen Delivery Method Nasal Cannula Weight: 74.9 kg Body Mass Index (BMI) 31.1 Finger Stick Blood Glucose 145 Laboratory Tests Past 24 Hrs 01/05/18 01/05/18 01/05/18 19:55 19:55 19:55 WBC 9.8 RBC 4.07 L Hgb 11.4 L Hct 35.2 L MCV 86.5 MCH 28.0 MCHC 32.4 RDW 17.7 H RDW Differential 55.9 H Plt Count 254 MPV 10.3 Immature Gran % (Auto) 0.200 Neut % (Auto) 52.7 Lymph % (Auto) 37.9 [place] % (Auto) 6.3 Eos % (Auto) 2.5 Baso % (Auto) 0.4 Absolute Neuts (auto) 5.2 Absolute Lymphs (auto) 3.70 Total Counted Not Reportable PT 12.9 INR 1.0 Sodium 141 Potassium 3.6 Chloride 107 Carbon Dioxide 29.0 Anion Gap 5 BUN 19 H Creatinine 0.79 Estim Creat Clear Calc 39.50 Est GFR (MDRD) Af Amer 92 Est GFR (MDRD) Non-Af 76 BUN/Creatinine Ratio 24.1 H Glucose 122 H Calcium 8.1 L Troponin I 0.017 Assessment/Plan All Active Problems (Last Reviewed 01/06/18 @ 03:19 by Zachariah Lawrence MD) Chest pain (Acute) Dyspnea (Acute) History of coronary artery stent placement (Resolved 12/28/17) History of coronary artery bypass graft x 3 (Resolved) The patient is a 72 year old F with a significant history of COPD; anxiety disorder; TIA; tobacco abuse; CAD status post quadruple bypass and 8 coronary stents with last 2 stents placed in her right coronary artery about a week ago who presented with a transient substernal sharp chest pain that radiated to her left arm and left leg; and also with right groin pain. Chest Pain Admit to a monitored bed on PCU CXR independently reviewed confirms cardiomegaly without any acute cardiopulmonary process. EKG independently reviewed confirms sinus rhythm ASA 81 mg p.o. daily SL NTG 0.4 mg prn as needed for chest pain Patient takes Plavix every other day. Her last dose of Plavix was on same day of presentation (01/05/18). Her next Plavix is actually due on 01/07/18. Will give additional dose of Plavix on 01/06/18. Atenolol and lisinopril continued. Serial cardiac enzymes Stat EKG as needed for chest pain Case was discussed with cardiology. Cardiology recommended stress test in the AM if the cardiac enzymes are negative. Stress test ordered. Right groin pain. Likely osteoarthritis. Patient declined Tylenol . He said in the past he is taking Free Soil for pain. Will order Free Soil for now Patient to follow-up with PCP after discharge. COPD Stable On home tiotropium/olodaterol DuoNeb scheduled while inpatient. Hypertension Blood pressure not within goal at admission. Lisinopril and atenolol continued. Trend and adjust blood pressure medication as necessary. Anxiety Ativan continued. Hypothyroidism Synthroid continued GERD On home Nexium. Continued on Protonix while inpatient. PPI continued. Tobacco abuse Counseled Patient reports that she has a prescription for Wellbutrin that she will start outpatient. Refused nicotine patch stating that she has a reaction to it. DVT prophylaxis Heparin subcutaneous ordered. Code Visit OBSV E&M: 36959 Initial observation care L3
--- NOTE | 2018-01-05 21:33 | ED.DCSUM_ITS ---
- ER Visit Summary Date of Service: 01/05/18 Chief Complaint: Chest pain and near syncope History of Present Illness: The patient is a 72 F that is both cardiac cath and 2 cardiac stents approximately a week ago here at [facility]. Other prior cardiac stents and prior triple bypass in 2006. Patient states that she was on the phone had midsternal chest pain that caused her to feel like she may pass out and laid on the ground. But never lost consciousness. She felt dizzy with it. She felt nauseated. Did not vomit. Denies any shortness of breath. Currently her symptoms have resolved. Physical Examination:. She is afebrile. She is in no distress. Her pulse ox is 97% on 2 L. No hypoxia. HEENT exam unremarkable. Neck nontender. No JVD. Lungs clear to auscultation bilaterally. Heart regular rhythm no murmur. Chest wall nontender. Abdomen is soft and nontender. Normal bowel sounds. No peritoneal signs. She is moving all 4 extremities. She has resolving bruising in her right groin from the recent cardiac catheterization. She has soft tissue muscular tenderness in her left groin. Calves are nontender without edema. Neurologically she is awake alert with no Test Results: EKG shows a sinus rhythm rate of 72 with no acute signs of IA or ischemia no change from the prior EKG. Chest x-ray shows no acute abnormality read by myself the radiologist. Prior sternotomy. A pelvis and left hip x-ray was also obtained due to her groin pain which showed no acute abnormality. CBC normal except for hemoglobin of 11. White count of 9. Chemistries unremarkable. Creatinine gap normal. Troponin is normal. Emergency Department Course and Treatment: Repeat exam the patient is doing well at 2120. I discussed with her and her family all test results. She will stay in overnight for further evaluation. Treatment Plan: I am I spoke with the hospitalist is down here admitting the patient. Disposition: Admission Impression: Acute chest pain of uncertain etiology with near syncope. Status post cardiac cath with 2 recent cardiac stents. History of CAD and CABG. This note was generated with [employer] dictation software. It may contain incorrect words, spelling, and punctuation that were not noted in review of the chart prior to signing ED Disposition - Plan for ED Patient: Chief Complaint: Chest Pain Referrals: Ino Silva Chi, MD [Primary Care Provider] -
[2018-01-05] MEDS: Atorvastatin Calcium 40 MG Tablet PO (21:56)
[2018-01-05] MEDS: LORazepam 1 MG Tablet PO (21:56)
[2018-01-05 22:12] VITALS: BP 152/70; PULSE 71; RESP 18; O2SAT 95
[2018-01-05 22:39] VITALS: BP 155/55; PULSE 65; RESP 16; TEMP 36.8; O2SAT 99
[2018-01-05 22:42] VITALS: BMI 29.3
[2018-01-05 22:48] VITALS: BMI 29.4
--- NOTE | 2018-01-05 22:52 | EKG12_ITS ---
Test Reason : CP Blood Pressure : / mmHG Vent. Rate : 072 BPM Atrial Rate : 072 BPM P-R Int : 182 ms QRS Dur : 088 ms QT Int : 398 ms P-R-T Axes : 066 057 067 degrees QTc Int : 435 ms Normal sinus rhythm Nonspecific T wave abnormality Abnormal ECG Confirmed by CONSUELO GOLD, EDDY ([id number]), scientific publications editor LEX OGLESBY ([id number]) on 01/08/2018 2:21:33 PM Referred By: AMANDA/AUSTIN Confirmed By:EDDY CORDERO MD
[2018-01-05 23:00] VITALS: PULSE 62
[2018-01-06] VITALS (8 sets, daily range): BP systolic 138–149; BP diastolic 56–61; PULSE 54–69; RESP 16–105; TEMP 36–36.6; O2SAT 96–97
[2018-01-06] MEDS: HYDROcodone Bitartrate/Apap 5/325 Tablet PO (00:01)
[2018-01-06 03:15] LABS: Hematocrit 35.1 % (37-47); Mean Corp Hgb Conc 31.3 g/gl (32-36); Mean Corpuscular Hgb 27.1 pg (27.0-32.0); Mean Corpuscular Volume 86.5 fL (81-99); Mean Platelet Vol. 10.3 fl (6.2-12.0); Platelet Count 263 K/mm3 (150-450); RBC Distribution Width CV 17.8 % (11.6-14.6); RBC Distribution Width SD 57.1 fl (35.1-43.9); Red Blood Count 4.06 M/mm3 (4.2-5.4); White Blood Count 8.3 K/mm3 (4.4-11.0)
[2018-01-06 03:19] LABS: Prothrombin Time (Protime)PT. 12.7 SECONDS (11.7-14.9)
[2018-01-06 03:20] LABS: Partial Thromboplast Time 27.8 Seconds (24.1-36.2)
[2018-01-06 03:32] LABS: Scan Indicated on CBC? Y/N NO
[2018-01-06 03:47] LABS: Anion Gap 7 (5-15); BUN 19 mg/dL (7-18); BUN/Creat Ratio 28.1 RATIO (10-20); Calcium,Total 7.9 mg/dL (8.5-10.1); Chloride 108 mmol/L (98-107); Creatinine, Serum 0.68 mg/dL (0.55-1.02); EST Glomerular Filtration Rate 91 mL/min (>60); Est Glom Filt Rate - Afr Amer 111 mL/min (>60); Glucose 97 mg/dL (74-106); Potassium 3.8 mmol/L (3.5-5.1); Sodium Level 145 mmol/L (136-145)
[2018-01-06] MEDS: Lisinopril 40 MG Tablet PO (05:57)
[2018-01-06] MEDS: Levothyroxine 75 MCG Tablet PO (05:58)
[2018-01-06] MEDS: LORazepam 1 MG Tablet 2 MG PO (05:58)
[2018-01-06] MEDS: Aspirin E.C. 81 MG Tablet PO (06:00)
[2018-01-06] MEDS: Ipratropium/Albuterol Sulfate 3 ML AMPUL.NEB INHALATION ×2 (06:45→13:04)
[2018-01-06] MEDS: Pantoprazole Sodium 40 MG Tablet PO (11:08)
[2018-01-06] MEDS: Atenolol 25 MG Tablet PO (11:08)
[2018-01-06] MEDS: Citalopram 20 MG Tablet PO (11:09)
[2018-01-06] MEDS: Ondansetron ODT 4 MG Tablet PO (11:14)
--- NOTE | 2018-01-06 12:46 | STRESSREP_ITS ---
Stress Test Report Pharmacologic myocardial perfusion stress test. 72-year-old lady with a history of coronary artery disease. Stress protocol: Resting EKG demonstrates normal sinus rhythm with rate of 64 bpm normal intervals are noted resting blood pressure is 148/82 mmHg. 0.4 mg of regadenoson was infused per usual protocol followed by rapid intravenous saline flush injection continuous EKG monitoring was performed. Patient maintained sinus rhythm throughout the recording with occasional premature atrial complexes noted. The maximum heart rate attained was 90 bpm which was 60% of maximum predicted heart rate the maximum workload was 1 metabolic equivalent. At rest there were no ST or T wave changes noted to suggest abnormal flow reserve at p eak infusion no ST or T wave changes were noted suggest abnormal flow reserve. Resting blood pressure 148/82 final blood pressure 150/70. Myocardial perfusion protocol. 11.1 mCi of technetium 99m sestamibi was injected at rest. 0.4 mg of regadenoson was infused per usual protocol. At peak infusion 32.9 mCi of technetium 99m sestamibi was injected stress images were obtained stress and rest images were reconstructed and compared in the short axis vertical long horizontal long axis. Gated images were also obtained Perfusion SPECT analysis: Review of the stress images demonstrate normal uptake of tracer noted in all areas of the myocardium. The resting images similarly demonstrate normal uptake of tracer noted in all areas of the myocardium. No areas of reversibility are noted suggest ischemia and no previous infarct is noted. Gated SPECT analysis: The gated ejection fraction is noted to be 63%. Conclusion: Normal pharmacologic myocardial perfusion stress test. Preserved ejection fraction.
--- NOTE | 2018-01-06 12:55 | DCINST_ITS ---
You will use the following diet at home:: Cardiac Discharge Activity: Return to Normal Activity Call your doctor if you observe: Shortness of breath, Dizziness, Fainting spells, Swelling in the ankles, Chest pain Allergies/Adverse Reactions: Allergies morphine Allergy (Verified 01/05/18 19:53) PT UNSURE Penicillins Allergy (Verified 01/05/18 19:53) Hives tramadol HCl [From Ultram] Allergy (Verified 01/05/18 19:53) PT UNSURE Medications to take at Discharge Aspirin E.C. [Ecotrin] 81 mg PO DAILY@0800 09/06/17 Levothyroxine [Synthroid] 75 mcg PO DAILY 09/06/17 citalopram 40 mg tablet 40 mg PO DAILY 12/18/17 clopidogrel 75 mg tablet 75 mg PO QODAY 12/18/17 esomeprazole magnesium 20 mg capsule,delayed release 40 mg PO DAILY 12/18/17 ipratropium 20 mcg-albuterol 100 mcg/actuation mist for inhalation 1 puff INHALATION Q6H 12/18/17 lisinopril 40 mg tablet 40 mg PO DAILY tab 12/18/17 tiotropium 2.5 mcg-olodaterol 2.5 mcg/actuation mist for inhalation 1 puff INHALATION DAILY g 12/18/17 Atenolol [Tenormin (beta estefania)] 25 mg PO DAILY 01/05/18 Atorvastatin Calcium 40 mg PO DAILY 01/05/18 Citalopram Hydrobromide [Citalopram HBr] 20 mg PO DAILY 01/05/18 Lorazepam [Ativan] 2 mg PO TID 01/05/18 Pnv No.122/Iron/Folic Acid [ Multi Tablet] 1 tab PO DAILY 01/05/18 Psyllium Husk [Metamucil] 5 ml PO DAILY 01/05/18 Ondansetron [Zofran Odt] 4 mg PO DAILY 01/06/18 Primary Care Physician: Ino Silva Chi, MD [Primary Care Provider] - Please follow up with your Primary Care Physician in: 1 Week Test Results: Test results from this visit will be discussed in further detail at your follow- up appointment, if applicable. Please Follow Up With: Gordy Pedroza MD When: As scheduled, 01/22/2018 Proposed Discharge Date: 01/06/18
--- NOTE | 2018-01-06 12:56 | PCM.DC.SUM ---
<Abena Dennis - Last Filed: 01/06/18 13:03> Discharge Date and Diagnosis Date of Admission: 01/05/18 Date of Discharge: 01/06/18 - Primary Discharge Diagnosis 1. Chest pain, ACS ruled out 2. CAD status post recent PCI to mid RCA 12/28/17 3. Hypertension 4. Hyperlipidemia 5. History of TIA 6. Anxiety/depression 7. Hypothyroidism 8. GERD - Secondary Discharge Diagnosis Chronic Problems (Last Reviewed 01/06/18 @ 03:19 by Zachariah Lawrence MD) Non-rheumatic tricuspid valve insufficiency (Chronic) Secondary pulmonary arterial hypertension (Chronic) Nicotine dependence (Chronic) Hyperlipidemia (Chronic) Atherosclerosis of coronary artery of [place] heart with angina pectoris (Chronic) Oie-FWU-RUV-Mid RCA w/ 2.0 x 10 mm Angiosculpt and 2.5 x 38 mm Promus Synergy Stent, BRIANA-Prox RCA 2.5 x 12 mm Prmomus Synergy Stent 12/28/17 QIG-KWB-Veprg Cx w/ 2.5 x 24mm Promus 03/12/2011, [id number];PCI-Prox LAD; CABG x 3 SY-LAD, SVG-OM and SVG-RCA Essential (primary) hypertension (Chronic) TIA (transient ischemic attack) (Chronic) Benzodiazepine dependence (Chronic) Hospital Course and Treatment Imaging Results: Diagnostic Data Chest X-Ray 01/05/18 20:00 IMPRESSION: No acute thoracic pathology. Electronically Signed: Lee Dunn, at 20:31 EST Tel , Service support , Hip/Pelvis X-Ray 01/05/18 21:00 IMPRESSION: No fracture or dislocation in the pelvis and bilateral hips. Mild degenerative change. Electronically Signed: Lee Dunn, at 21:29 EST Tel , Service support , Operations: None Procedures: Stress test Summary of Care Provided: The patient is a 72 year old F admitted 01/05/2018 due to chest pain. 1. Chest pain, ACS ruled out-troponin negative. EKG without ST-T changes. Patient underwent nuclear stress test which was negative for ischemia. Patient will continue outpatient follow-up with cardiology. 2. CAD status post recent PCI to mid RCA/proximal RCA 12/28/17-upcoming follow-up appointment with Dr. Pedroza 01/22/2018. Continue aspirin, statin, Plavix, atenolol. 3. Hypertension-stable, continue home atenolol, lisinopril regimen. 4. Hyperlipidemia-continue statin. 5. History of TIA 6. Anxiety/depression-continue home regimen. 7. Hypothyroidism-continue Synthroid regimen. 8. GERD-continue PPI. General: Alert, Oriented x3, Cooperative HEENT: Atraumatic, PERRLA, EOMI, Normocephalic Neck: Supple, No JVD, Negative Carotid Bruits Lungs: Clear to auscultation, Normal air movement Cardiovascular: Regular rate, No murmurs Abdomen: Bowel Sounds Present, Soft, Non Tender Extremities: No edema, Capillary Refill Less than 3 Seconds, No edema Skin: No rashes, No breakdown Musculoskeletal: No Tenderness to Palpation of Joints or Extremities Neurological: Cranial nerves II-XII grossly intact Psych/Mental Status: Normal Affect, Appropriate Patient seen and examined prior to discharge. Physical assessment as noted above. Patient is stable for discharge with follow up recommendations as noted above. This patient was seen by ROSA eVlazquez under the supervision of Dr. Roberts. - Physical Exam Vital Signs Temp Pulse Resp BP Pulse Ox 96.8 F L 69 18 145/56 H 96 01/06/18 09:13 01/06/18 11:12 01/06/18 09:13 01/06/18 09:13 01/06/18 09:13 Oxygen Flow Rate (L/min) 98 Oxygen Delivery Method Room Air Weight: 155 lb 6.814 oz Body Mass Index (BMI) 29.3 Finger Stick Blood Glucose 145 Intake and Output for Last 24 Hours 01/04/18 01/05/18 01/06/18 23:59 23:59 23:59 Intake Total 560 / 560 Balance 560 / 560 Laboratory Tests Past 24 Hrs 01/05/18 01/05/18 01/05/18 19:55 19:55 19:55 WBC 9.8 RBC 4.07 L Hgb 11.4 L Hct 35.2 L MCV 86.5 MCH 28.0 MCHC 32.4 RDW 17.7 H RDW Differential 55.9 H Plt Count 254 MPV 10.3 Immature Gran % (Auto) 0.200 Neut % (Auto) 52.7 Lymph % (Auto) 37.9 [place] % (Auto) 6.3 Eos % (Auto) 2.5 Baso % (Auto) 0.4 Absolute Neuts (auto) 5.2 Absolute Lymphs (auto) 3.70 Total Counted Not Reportable PT 12.9 INR 1.0 APTT Sodium 141 Potassium 3.6 Chloride 107 Carbon Dioxide 29.0 Anion Gap 5 BUN 19 H Creatinine 0.79 Estim Creat Clear Calc 39.50 Est GFR (MDRD) Af Amer 92 Est GFR (MDRD) Non-Af 76 BUN/Creatinine Ratio 24.1 H Glucose 122 H Calcium 8.1 L Troponin I 0.017 01/05/18 01/06/18 01/06/18 22:55 02:45 02:45 WBC 8.3 RBC 4.06 L Hgb 11.0 L Hct 35.1 L MCV 86.5 MCH 27.1 MCHC 31.3 L RDW 17.8 H RDW Differential 57.1 H Plt Count 263 MPV 10.3 Immature Gran % (Auto) Neut % (Auto) Lymph % (Auto) [place] % (Auto) Eos % (Auto) Baso % (Auto) Absolute Neuts (auto) Absolute Lymphs (auto) Total Counted PT INR APTT Sodium Potassium Chloride Carbon Dioxide Anion Gap BUN Creatinine Estim Creat Clear Calc Est GFR (MDRD) Af Amer Est GFR (MDRD) Non-Af BUN/Creatinine Ratio Glucose Calcium Troponin I 0.022 0.017 01/06/18 01/06/18 02:45 02:45 WBC RBC Hgb Hct MCV MCH MCHC RDW RDW Differential Plt Count MPV Immature Gran % (Auto) Neut % (Auto) Lymph % (Auto) [place] % (Auto) Eos % (Auto) Baso % (Auto) Absolute Neuts (auto) Absolute Lymphs (auto) Total Counted PT 12.7 INR 1.0 APTT 27.8 Sodium 145 Potassium 3.8 Chloride 108 H Carbon Dioxide 30.0 Anion Gap 7 BUN 19 H Creatinine 0.68 Estim Creat Clear Calc 39.50 Est GFR (MDRD) Af Amer 111 Est GFR (MDRD) Non-Af 91 BUN/Creatinine Ratio 28.1 H Glucose 97 Calcium 7.9 L Troponin I Discharge Diet: Low fat/ Low Cholesterol Discharge Activity: Return to Normal Activity Call your doctor if you observe: Shortness of breath, Dizziness, Fainting spells, Swelling in the ankles, Chest pain Home Medications: Medications to take at Discharge Aspirin E.C. [Ecotrin] 81 mg PO DAILY@0800 09/06/17 Levothyroxine [Synthroid] 75 mcg PO DAILY 09/06/17 citalopram 40 mg tablet 40 mg PO DAILY 12/18/17 clopidogrel 75 mg tablet 75 mg PO QODAY 12/18/17 esomeprazole magnesium 20 mg capsule,delayed release 40 mg PO DAILY 12/18/17 ipratropium 20 mcg-albuterol 100 mcg/actuation mist for inhalation 1 puff INHALATION Q6H 12/18/17 lisinopril 40 mg tablet 40 mg PO DAILY tab 12/18/17 tiotropium 2.5 mcg-olodaterol 2.5 mcg/actuation mist for inhalation 1 puff INHALATION DAILY g 12/18/17 Atenolol [Tenormin (beta estefania)] 25 mg PO DAILY 01/05/18 Atorvastatin Calcium 40 mg PO DAILY 01/05/18 Citalopram Hydrobromide [Citalopram HBr] 20 mg PO DAILY 01/05/18 Lorazepam [Ativan] 2 mg PO TID 01/05/18 Pnv No.122/Iron/Folic Acid [ Multi Tablet] 1 tab PO DAILY 01/05/18 Psyllium Husk [Metamucil] 5 ml PO DAILY 01/05/18 Ondansetron [Zofran Odt] 4 mg PO DAILY 01/06/18 Primary Care Physician: Ino Silva Chi, MD [Primary Care Provider] - Please follow up with your Primary Care Physician in: 1 Week Please Follow Up With: Gordy Pedroza MD When: As scheduled, 01/22/2018 Disposition: Home Minutes spent on discharge:: 35 Patient Condition:: Stable Medical Necessity - Tobacco Use Smoking Status: Current every day smoker Meaningful Use Info Meaningful Use Diagnoses (Choose all that apply): None applicable <Cruz Roberts - Last Filed: 01/06/18 16:06> Discharge Date and Diagnosis - Secondary Discharge Diagnosis Chronic Problems (Last Reviewed 01/06/18 @ 03:19 by Zachariah Lawrence MD) Non-rheumatic tricuspid valve insufficiency (Chronic) Secondary pulmonary arterial hypertension (Chronic) Nicotine dependence (Chronic) Hyperlipidemia (Chronic) Atherosclerosis of coronary artery of [place] heart with angina pectoris (Chronic) Uve-CJD-AQG-Mid RCA w/ 2.0 x 10 mm Angiosculpt and 2.5 x 38 mm Promus Synergy Stent, BRIANA-Prox RCA 2.5 x 12 mm Prmomus Synergy Stent 12/28/17 DQJ-USP-Svzsq Cx w/ 2.5 x 24mm Promus 03/12/2011, [id number];PCI-Prox LAD; CABG x 3 SY-LAD, SVG-OM and SVG-RCA Essential (primary) hypertension (Chronic) TIA (transient ischemic attack) (Chronic) Benzodiazepine dependence (Chronic) Hospital Course and Treatment Summary of Care Provided: The patient is a 72 year old F [] - Physical Exam Vital Signs Temp Pulse Resp BP Pulse Ox 97.8 F 64 16 138/61 H 97 01/06/18 13:15 01/06/18 13:15 01/06/18 13:15 01/06/18 13:15 01/06/18 13:15 Oxygen Flow Rate (L/min) 98 Oxygen Delivery Method Room Air Weight: 155 lb 6.814 oz Body Mass Index (BMI) 29.3 Finger Stick Blood Glucose 145 Intake and Output for Last 24 Hours 01/04/18 01/05/18 01/06/18 23:59 23:59 23:59 Intake Total 560 / 560 Balance 560 / 560 Laboratory Tests Past 24 Hrs 01/05/18 01/05/18 01/05/18 19:55 19:55 19:55 WBC 9.8 RBC 4.07 L Hgb 11.4 L Hct 35.2 L MCV 86.5 MCH 28.0 MCHC 32.4 RDW 17.7 H RDW Differential 55.9 H Plt Count 254 MPV 10.3 Immature Gran % (Auto) 0.200 Neut % (Auto) 52.7 Lymph % (Auto) 37.9 [place] % (Auto) 6.3 Eos % (Auto) 2.5 Baso % (Auto) 0.4 Absolute Neuts (auto) 5.2 Absolute Lymphs (auto) 3.70 Total Counted Not Reportable PT 12.9 INR 1.0 APTT Sodium 141 Potassium 3.6 Chloride 107 Carbon Dioxide 29.0 Anion Gap 5 BUN 19 H Creatinine 0.79 Estim Creat Clear Calc 39.50 Est GFR (MDRD) Af Amer 92 Est GFR (MDRD) Non-Af 76 BUN/Creatinine Ratio 24.1 H Glucose 122 H Calcium 8.1 L Troponin I 0.017 01/05/18 01/06/18 01/06/18 22:55 02:45 02:45 WBC 8.3 RBC 4.06 L Hgb 11.0 L Hct 35.1 L MCV 86.5 MCH 27.1 MCHC 31.3 L RDW 17.8 H RDW Differential 57.1 H Plt Count 263 MPV 10.3 Immature Gran % (Auto) Neut % (Auto) Lymph % (Auto) [place] % (Auto) Eos % (Auto) Baso % (Auto) Absolute Neuts (auto) Absolute Lymphs (auto) Total Counted PT INR APTT Sodium Potassium Chloride Carbon Dioxide Anion Gap BUN Creatinine Estim Creat Clear Calc Est GFR (MDRD) Af Amer Est GFR (MDRD) Non-Af BUN/Creatinine Ratio Glucose Calcium Troponin I 0.022 0.017 01/06/18 01/06/18 02:45 02:45 WBC RBC Hgb Hct MCV MCH MCHC RDW RDW Differential Plt Count MPV Immature Gran % (Auto) Neut % (Auto) Lymph % (Auto) [place] % (Auto) Eos % (Auto) Baso % (Auto) Absolute Neuts (auto) Absolute Lymphs (auto) Total Counted PT 12.7 INR 1.0 APTT 27.8 Sodium 145 Potassium 3.8 Chloride 108 H Carbon Dioxide 30.0 Anion Gap 7 BUN 19 H Creatinine 0.68 Estim Creat Clear Calc 39.50 Est GFR (MDRD) Af Amer 111 Est GFR (MDRD) Non-Af 91 BUN/Creatinine Ratio 28.1 H Glucose 97 Calcium 7.9 L Troponin I Code Visit Addendum by Dr. Roberts I agree with above and I personally examined the patient and reviewed the patient's chart. 72-year-old female with a significant history of COPD, anxiety disorder, TIA, tobacco abuse, CAD status post quadruple bypass and a coronary stent with the last tube placed in the right coronary artery about a week ago, who presents with a transient stop substernal chest pain. She had a stress test today which was negative. We will make no changes to her medications and she will follow-up with cardiology as an outpatient. OBSV E&M: [id number] Observation care discharge
--- NOTE | 2018-01-06 13:02 | DS.PCM_ITS ---
<Abena Dennis - Last Filed: 01/06/18 13:03> Discharge Date and Diagnosis Date of Admission: 01/05/18 Date of Discharge: 01/06/18 - Primary Discharge Diagnosis 1. Chest pain, ACS ruled out 2. CAD status post recent PCI to mid RCA 12/28/17 3. Hypertension 4. Hyperlipidemia 5. History of TIA 6. Anxiety/depression 7. Hypothyroidism 8. GERD - Secondary Discharge Diagnosis Chronic Problems (Last Reviewed 01/06/18 @ 03:19 by Zachariah Lawrence MD) Non-rheumatic tricuspid valve insufficiency (Chronic) Secondary pulmonary arterial hypertension (Chronic) Nicotine dependence (Chronic) Hyperlipidemia (Chronic) Atherosclerosis of coronary artery of [place] heart with angina pectoris (Chronic) Xfc-TJR-KIN-Mid RCA w/ 2.0 x 10 mm Angiosculpt and 2.5 x 38 mm Promus Synergy Stent, BRIANA-Prox RCA 2.5 x 12 mm Prmomus Synergy Stent 12/28/17 DTP-QPA-Itqtq Cx w/ 2.5 x 24mm Promus 03/12/2011, [id number];PCI-Prox LAD; CABG x 3 SY-LAD, SVG-OM and SVG-RCA Essential (primary) hypertension (Chronic) TIA (transient ischemic attack) (Chronic) Benzodiazepine dependence (Chronic) Hospital Course and Treatment Imaging Results: Diagnostic Data Chest X-Ray 01/05/18 20:00 IMPRESSION: No acute thoracic pathology. Electronically Signed: Lee Dunn, at 20:31 EST Tel , Service support , Hip/Pelvis X-Ray 01/05/18 21:00 IMPRESSION: No fracture or dislocation in the pelvis and bilateral hips. Mild degenerative change. Electronically Signed: Lee Dunn, at 21:29 EST Tel , Service support , Operations: None Procedures: Stress test Summary of Care Provided: The patient is a 72 year old F admitted 01/05/2018 due to chest pain. 1. Chest pain, ACS ruled out-troponin negative. EKG without ST-T changes. Patient underwent nuclear stress test which was negative for ischemia. Patient will continue outpatient follow-up with cardiology. 2. CAD status post recent PCI to mid RCA/proximal RCA 12/28/17-upcoming follow- up appointment with Dr. Pedroza 01/22/2018. Continue aspirin, statin, Plavix, atenolol. 3. Hypertension-stable, continue home atenolol, lisinopril regimen. 4. Hyperlipidemia-continue statin. 5. History of TIA 6. Anxiety/depression-continue home regimen. 7. Hypothyroidism-continue Synthroid regimen. 8. GERD-continue PPI. General: Alert, Oriented x3, Cooperative HEENT: Atraumatic, PERRLA, EOMI, Normocephalic Neck: Supple, No JVD, Negative Carotid Bruits Lungs: Clear to auscultation, Normal air movement Cardiovascular: Regular rate, No murmurs Abdomen: Bowel Sounds Present, Soft, Non Tender Extremities: No edema, Capillary Refill Less than 3 Seconds, No edema Skin: No rashes, No breakdown Musculoskeletal: No Tenderness to Palpation of Joints or Extremities Neurological: Cranial nerves II-XII grossly intact Psych/Mental Status: Normal Affect, Appropriate Patient seen and examined prior to discharge. Physical assessment as noted above. Patient is stable for discharge with follow up recommendations as noted above. This patient was seen by ROSA Velazquez under the supervision of Dr. Roberts. - Physical Exam Vital Signs Temp Pulse Resp BP Pulse Ox 96.8 F L 69 18 145/56 H 96 01/06/18 09:13 01/06/18 11:12 01/06/18 09:13 01/06/18 09:13 01/06/18 09:13 Oxygen Flow Rate (L/min) 98 Oxygen Delivery Method Room Air Weight: 155 lb 6.814 oz Body Mass Index (BMI) 29.3 Finger Stick Blood Glucose 145 Intake and Output for Last 24 Hours 01/04/18 01/05/18 01/06/18 23:59 23:59 23:59 Intake Total 560 / 560 Balance 560 / 560 Laboratory Tests Past 24 Hrs 01/05/18 01/05/18 01/05/18 19:55 19:55 19:55 WBC 9.8 RBC 4.07 L Hgb 11.4 L Hct 35.2 L MCV 86.5 MCH 28.0 MCHC 32.4 RDW 17.7 H RDW Differential 55.9 H Plt Count 254 MPV 10.3 Immature Gran % (Auto) 0.200 Neut % (Auto) 52.7 Lymph % (Auto) 37.9 [place] % (Auto) 6.3 Eos % (Auto) 2.5 Baso % (Auto) 0.4 Absolute Neuts (auto) 5.2 Absolute Lymphs (auto) 3.70 Total Counted Not Reportable PT 12.9 INR 1.0 APTT Sodium 141 Potassium 3.6 Chloride 107 Carbon Dioxide 29.0 Anion Gap 5 BUN 19 H Creatinine 0.79 Estim Creat Clear Calc 39.50 Est GFR (MDRD) Af Amer 92 Est GFR (MDRD) Non-Af 76 BUN/Creatinine Ratio 24.1 H Glucose 122 H Calcium 8.1 L Troponin I 0.017 01/05/18 01/06/18 01/06/18 22:55 02:45 02:45 WBC 8.3 RBC 4.06 L Hgb 11.0 L Hct 35.1 L MCV 86.5 MCH 27.1 MCHC 31.3 L RDW 17.8 H RDW Differential 57.1 H Plt Count 263 MPV 10.3 Immature Gran % (Auto) Neut % (Auto) Lymph % (Auto) [place] % (Auto) Eos % (Auto) Baso % (Auto) Absolute Neuts (auto) Absolute Lymphs (auto) Total Counted PT INR APTT Sodium Potassium Chloride Carbon Dioxide Anion Gap BUN Creatinine Estim Creat Clear Calc Est GFR (MDRD) Af Amer Est GFR (MDRD) Non-Af BUN/Creatinine Ratio Glucose Calcium Troponin I 0.022 0.017 01/06/18 01/06/18 02:45 02:45 WBC RBC Hgb Hct MCV MCH MCHC RDW RDW Differential Plt Count MPV Immature Gran % (Auto) Neut % (Auto) Lymph % (Auto) [place] % (Auto) Eos % (Auto) Baso % (Auto) Absolute Neuts (auto) Absolute Lymphs (auto) Total Counted PT 12.7 INR 1.0 APTT 27.8 Sodium 145 Potassium 3.8 Chloride 108 H Carbon Dioxide 30.0 Anion Gap 7 BUN 19 H Creatinine 0.68 Estim Creat Clear Calc 39.50 Est GFR (MDRD) Af Amer 111 Est GFR (MDRD) Non-Af 91 BUN/Creatinine Ratio 28.1 H Glucose 97 Calcium 7.9 L Troponin I Discharge Diet: Low fat/ Low Cholesterol Discharge Activity: Return to Normal Activity Call your doctor if you observe: Shortness of breath, Dizziness, Fainting spells, Swelling in the ankles, Chest pain Home Medications: Medications to take at Discharge Aspirin E.C. [Ecotrin] 81 mg PO DAILY@0800 09/06/17 Levothyroxine [Synthroid] 75 mcg PO DAILY 09/06/17 citalopram 40 mg tablet 40 mg PO DAILY 12/18/17 clopidogrel 75 mg tablet 75 mg PO QODAY 12/18/17 esomeprazole magnesium 20 mg capsule,delayed release 40 mg PO DAILY 12/18/17 ipratropium 20 mcg-albuterol 100 mcg/actuation mist for inhalation 1 puff INHALATION Q6H 12/18/17 lisinopril 40 mg tablet 40 mg PO DAILY tab 12/18/17 tiotropium 2.5 mcg-olodaterol 2.5 mcg/actuation mist for inhalation 1 puff INHALATION DAILY g 12/18/17 Atenolol [Tenormin (beta estefania)] 25 mg PO DAILY 01/05/18 Atorvastatin Calcium 40 mg PO DAILY 01/05/18 Citalopram Hydrobromide [Citalopram HBr] 20 mg PO DAILY 01/05/18 Lorazepam [Ativan] 2 mg PO TID 01/05/18 Pnv No.122/Iron/Folic Acid [ Multi Tablet] 1 tab PO DAILY 01/05/18 Psyllium Husk [Metamucil] 5 ml PO DAILY 01/05/18 Ondansetron [Zofran Odt] 4 mg PO DAILY 01/06/18 Primary Care Physician: Ino Silva Chi, MD [Primary Care Provider] - Please follow up with your Primary Care Physician in: 1 Week Please Follow Up With: Gordy Pedroza MD When: As scheduled, 01/22/2018 Disposition: Home Minutes spent on discharge:: 35 Patient Condition:: Stable Medical Necessity - Tobacco Use Smoking Status: Current every day smoker Meaningful Use Info Meaningful Use Diagnoses (Choose all that apply): None applicable <Cruz Roberts - Last Filed: 01/06/18 16:06> Discharge Date and Diagnosis - Secondary Discharge Diagnosis Chronic Problems (Last Reviewed 01/06/18 @ 03:19 by Zachariah Lawrence MD) Non-rheumatic tricuspid valve insufficiency (Chronic) Secondary pulmonary arterial hypertension (Chronic) Nicotine dependence (Chronic) Hyperlipidemia (Chronic) Atherosclerosis of coronary artery of [place] heart with angina pectoris (Chronic) Cbz-KEU-TLU-Mid RCA w/ 2.0 x 10 mm Angiosculpt and 2.5 x 38 mm Promus Synergy Stent, BRIANA-Prox RCA 2.5 x 12 mm Prmomus Synergy Stent 12/28/17 ZNV-PUW-Rmtkz Cx w/ 2.5 x 24mm Promus 03/12/2011, [id number];PCI-Prox LAD; CABG x 3 SY-LAD, SVG-OM and SVG-RCA Essential (primary) hypertension (Chronic) TIA (transient ischemic attack) (Chronic) Benzodiazepine dependence (Chronic) Hospital Course and Treatment Summary of Care Provided: The patient is a 72 year old F [] - Physical Exam Vital Signs Temp Pulse Resp BP Pulse Ox 97.8 F 64 16 138/61 H 97 01/06/18 13:15 01/06/18 13:15 01/06/18 13:15 01/06/18 13:15 01/06/18 13:15 Oxygen Flow Rate (L/min) 98 Oxygen Delivery Method Room Air Weight: 155 lb 6.814 oz Body Mass Index (BMI) 29.3 Finger Stick Blood Glucose 145 Intake and Output for Last 24 Hours 01/04/18 01/05/18 01/06/18 23:59 23:59 23:59 Intake Total 560 / 560 Balance 560 / 560 Laboratory Tests Past 24 Hrs 01/05/18 01/05/18 01/05/18 19:55 19:55 19:55 WBC 9.8 RBC 4.07 L Hgb 11.4 L Hct 35.2 L MCV 86.5 MCH 28.0 MCHC 32.4 RDW 17.7 H RDW Differential 55.9 H Plt Count 254 MPV 10.3 Immature Gran % (Auto) 0.200 Neut % (Auto) 52.7 Lymph % (Auto) 37.9 [place] % (Auto) 6.3 Eos % (Auto) 2.5 Baso % (Auto) 0.4 Absolute Neuts (auto) 5.2 Absolute Lymphs (auto) 3.70 Total Counted Not Reportable PT 12.9 INR 1.0 APTT Sodium 141 Potassium 3.6 Chloride 107 Carbon Dioxide 29.0 Anion Gap 5 BUN 19 H Creatinine 0.79 Estim Creat Clear Calc 39.50 Est GFR (MDRD) Af Amer 92 Est GFR (MDRD) Non-Af 76 BUN/Creatinine Ratio 24.1 H Glucose 122 H Calcium 8.1 L Troponin I 0.017 01/05/18 01/06/18 01/06/18 22:55 02:45 02:45 WBC 8.3 RBC 4.06 L Hgb 11.0 L Hct 35.1 L MCV 86.5 MCH 27.1 MCHC 31.3 L RDW 17.8 H RDW Differential 57.1 H Plt Count 263 MPV 10.3 Immature Gran % (Auto) Neut % (Auto) Lymph % (Auto) [place] % (Auto) Eos % (Auto) Baso % (Auto) Absolute Neuts (auto) Absolute Lymphs (auto) Total Counted PT INR APTT Sodium Potassium Chloride Carbon Dioxide Anion Gap BUN Creatinine Estim Creat Clear Calc Est GFR (MDRD) Af Amer Est GFR (MDRD) Non-Af BUN/Creatinine Ratio Glucose Calcium Troponin I 0.022 0.017 01/06/18 01/06/18 02:45 02:45 WBC RBC Hgb Hct MCV MCH MCHC RDW RDW Differential Plt Count MPV Immature Gran % (Auto) Neut % (Auto) Lymph % (Auto) [place] % (Auto) Eos % (Auto) Baso % (Auto) Absolute Neuts (auto) Absolute Lymphs (auto) Total Counted PT 12.7 INR 1.0 APTT 27.8 Sodium 145 Potassium 3.8 Chloride 108 H Carbon Dioxide 30.0 Anion Gap 7 BUN 19 H Creatinine 0.68 Estim Creat Clear Calc 39.50 Est GFR (MDRD) Af Amer 111 Est GFR (MDRD) Non-Af 91 BUN/Creatinine Ratio 28.1 H Glucose 97 Calcium 7.9 L Troponin I Code Visit Addendum by Dr. Roberts I agree with above and I personally examined the patient and reviewed the patient's chart. 72-year-old female with a significant history of COPD, anxiety disorder, TIA, tobacco abuse, CAD status post quadruple bypass and a coronary stent with the last tube placed in the right coronary artery about a week ago, who presents with a transient stop substernal chest pain. She had a stress test today which was negative. We will make no changes to her medications and she will follow-up with cardiology as an outpatient. OBSV E&M: [id number] Observation care discharge
--- OUTSIDE RECORDS SUMMARY | 2018-03-03 10:10 | XMS RPT_ITS ---
:1945 Author Organization [place] Support Name Relationship Address Phone CHEYANNE WALLACE Unavailable [address] + [place] [address] MADISON SANTA Unavailable [address] + [place] [address] R Unavailable Unavailable Unavailable CHEYANNE WALLACE Unavailable [address] + [place] [address] SANTA WALLACE Unavailable [address] + [place] [address] R Unavailable Unavailable Unavailable CHEYANNE WALLACE Unavailable [address] + [place] [address] SANTA WALLACE Unavailable [address] + [place] [address] R Unavailable Unavailable Unavailable CHEYANNE WALLACE Unavailable [address] + [place] [address] SANTA WALLACE Unavailable [address] + [place] [address] R Unavailable Unavailable Unavailable CHEYANNE WALLACE Unavailable [address] + [place] [address] SANTA WALLACE Unavailable [address] + [place] [address] R Unavailable Unavailable Unavailable CHEYANNE WALLACE Unavailable [address] + [place] [address] SANTA WALLACE Unavailable [address] + [place] [address] R Unavailable Unavailable Unavailable CHEYANNE WALLACE Unavailable [address] + [place] [address] SANTA WALLACE Unavailable [address] + [place] [address] R Unavailable Unavailable Unavailable CHEYANNE WALLACE Unavailable [address] + [place] [address] MADISONJESSYSANTA Unavailable [address] + [place] [address] R Unavailable Unavailable Unavailable CHEYANNE WALLACE Unavailable [address] + [place] [address] MADISONJESSYSANTA Unavailable [address] + [place] [address] R Unavailable Unavailable Unavailable CHEYANNE WALLACE Unavailable [address] + [place] [address] MADISONJESSYSANTA Unavailable [address] + [place] [address] R Unavailable Unavailable Unavailable CHEYANNE WALLACE Unavailable [address] + [place] [address] MADISONJESSYSANTA Unavailable [address] + [place] [address] R Unavailable Unavailable Unavailable CHEYANNE WALLACE Unavailable [address] + [place] [address] MADISONJESSYSANTA Unavailable [address] + [place] [address] R Unavailable Unavailable Unavailable CHEYANNE WALLACE Unavailable [address] + [place] [address] MADISONJESSYSANTA Unavailable [address] + [place] [address] R Unavailable Unavailable Unavailable CHEYANNE WALLACE Unavailable [address] + [place] [address] MADISONJESSYSANTA Unavailable [address] + [place] [address] R Unavailable Unavailable Unavailable CHEYANNE WALLACE Unavailable [address] + [place] [address] MADISONJESSYSANTA Unavailable [address] + [place] [address] R Unavailable Unavailable Unavailable CHEYANNE WALLACE Unavailable [address] + [place] [address] MADISONJESSYSANTA Unavailable [address] + [place] [address] R Unavailable Unavailable Unavailable CHEYANNE WALLACE Unavailable [address] + [place] [address] JESSY WALLACEODY Unavailable [address] + [place] [address] R Unavailable Unavailable Unavailable MADISON CHEYANNE Unavailable [address] + [place] [address] JESSY WALLACEODY Unavailable [address] + [place] [address] R Unavailable Unavailable Unavailable MADISON CHEYANNE Unavailable [address] + [place] [address] JESSY WALLACEODY Unavailable [address] + [place] [address] R Unavailable Unavailable Unavailable MADISON CHEYANNE Unavailable [address] + [place] [address] MADISONJESSYSANTA Unavailable [address] + [place] [address] R Unavailable Unavailable Unavailable MadisonJessySanta Unavailable Unavailable + Madison Cheyanne Unavailable Unavailable + MADISON CHEYANNE Unavailable [address] + [place] [address] JESSY WALLACEODY Unavailable [address] + [place] [address] R Unavailable Unavailable Unavailable MADISON CHEYANNE Unavailable [address] + [place] [address] MADISONJESSYSANTA Unavailable [address] + [place] [address] R Unavailable Unavailable Unavailable MADISON CHEYANNE Unavailable Unavailable + MADISONJESSYSANTA Unavailable Unavailable + MADISON CHEYANNE Unavailable [address] + [place] [address] MADISONJESSYSANTA Unavailable [address] + [place] [address] R Unavailable Unavailable Unavailable MADISON CHEYANNE Unavailable [address] + [place] [address] MADISONJESSYSANTA Unavailable [address] + [place] [address] R Unavailable Unavailable Unavailable MADISONJOYIE Unavailable [address] + [place] [address] MADISONJESSYSANTA Unavailable [address] + [place] [address] R Unavailable Unavailable Unavailable MADISONJOYIE Unavailable [address] + [place] [address] MADISONJESSYSANTA Unavailable [address] + [place] [address] R Unavailable Unavailable Unavailable MADISONJOYIE Unavailable [address] + [place] [address] MADISON SANTA Unavailable [address] + [place] [address] R Unavailable Unavailable Unavailable MADISONJOYIE Unavailable [address] + [place] [address] MADISONJESSYSANTA Unavailable [address] + [place] [address] R Unavailable Unavailable Unavailable MADISONJOYIE Unavailable [address] + [place] [address] MADISONJESSYSANTA Unavailable [address] + [place] [address] R Unavailable Unavailable Unavailable MADISONJOYIE Unavailable [address] + [place] [address] MADISONJESSYSANTA Unavailable [address] + [place] [address] R Unavailable Unavailable Unavailable MADISONJOYIE Unavailable [address] + [place] [address] MADISON SANTA Unavailable [address] + [place] [address] R Unavailable Unavailable Unavailable MADISONJOYIE Unavailable [address] + [place] [address] MADISONJESSYSANTA Unavailable [address] + [place] [address] R Unavailable Unavailable Unavailable Care Team Providers Name Role Phone MOSES HINES (CHAIN BUILDER LOOM CONTROL) Attending Unavailable RAUL KUMAR Referring Unavailable RAUL KUMAR Referring Unavailable PINKY CONTRERAS Attending Unavailable GANTA, ASHLEY Referring Unavailable HINES, MOSES (CHAIN BUILDER LOOM CONTROL) Referring Unavailable YUN BOLAÑOS Attending Unavailable HINES, MOSES (CHAIN BUILDER LOOM CONTROL) Referring Unavailable Humberto Dela Cruz Attending Unavailable Yovany, Gordy Referring Unavailable Ganta, Ashley Primary Care Unavailable Ashelfah, Ghasem Admitting Unavailable Sementi, Monalisa Attending Unavailable Ashelfah, Ghasem Admitting Unavailable Ashelfah, Ghasem Attending Unavailable Ganta, Ashley Primary Care Unavailable Ashelfah, Ghasem Consulting Unavailable Darinel Pedrozaril Attending Unavailable Agyepong, Zachariah Referring Unavailable Yovany, Gordy Attending Unavailable Agyepong, Zachariah Referring Unavailable Ashelfah, Ghasem Admitting Unavailable Sementi, Monalisa Attending Unavailable Ganta, Ashley Primary Care Unavailable Sementi, Monalisa Consulting Unavailable Sementi, Monlaisa Attending Unavailable Humberto Dela Cruz Attending Unavailable Ashelfah, Ghasem Referring Unavailable PROVIDER, ED PHYSICIAN Attending Unavailable Ganta, Ashley Primary Care Unavailable Ganta, Ashley Primary Care Unavailable Nehemias Iqbal Attending Unavailable Basali, Ayman Attending Unavailable Basali, Ayman Referring Unavailable Ganta, Ashley Primary Care Unavailable Keshia, Sameh Attending Unavailable Keshia, Sameh Referring Unavailable Ganta, Ashley Primary Care Unavailable Basali, Ayman Attending Unavailable Basali, Ayman Referring Unavailable Ganta, Ashley Primary Care Unavailable Ricardo, Ino Chi Attending Unavailable Ja Nix Attending Unavailable Ricardo, Ino Chi Primary Care Unavailable Ricardo, Ino Chi Attending Unavailable Ricardo, Ino Chi Referring Unavailable Ricardo, Ino Chi Primary Care Unavailable Ricardo, Ino Chi Attending Unavailable Ricardo, Ino Chi Primary Care Unavailable Ricardo, Ion Chi Attending Unavailable Ricardo, Ino Chi Primary Care Unavailable Ricardo, Ino Chi Primary Care Unavailable Kingsley Bowers Attending Unavailable Ricardo, Ino Chi Primary Care Unavailable Marquis Quick Attending Unavailable Ricardo, Ino Chi Attending Unavailable Ricardo, Ino Chi Primary Care Unavailable Ricardo, Ino Chi Attending Unavailable Ricardo, Ino Chi Primary Care Unavailable Ricardo, Ino Chi Attending Unavailable Ricardo, Ino Chi Primary Care Unavailable Ricardo, Ino Chi Referring Unavailable Crystal Becks Attending Unavailable Gordy Pedroza Attending Unavailable Ricardo, Ino Chi Referring Unavailable Tiera Beck Attending Unavailable YovanyDarinel thompsonril Attending Unavailable Yovany, Wyola Referring Unavailable Ricardo, Ino Chi Primary Care Unavailable Tiera Beck Attending Unavailable Yovany, Gordy Attending Unavailable Yovany, Gordy Referring Unavailable Ricardo, Ion Chi Primary Care Unavailable Yovany, Gordy Consulting Unavailable Ricardo, Ino Chi Primary Care Unavailable Agyepong, Zachariah Admitting Unavailable Cruz Roberts F Attending Unavailable Agyepong, Zachariah Admitting Unavailable Agyepong, Zachariah Attending Unavailable Ricardo, Ino Chi Primary Care Unavailable Agyepong, Zachariah Consulting Unavailable Agyepong, Zachariah Admitting Unavailable Ricardo, Ino Chi Primary Care Unavailable Kotsonis, Cruz F Consulting Unavailable Kotsbriannas Cruz F Attending Unavailable KATI TENORIO, DR. ASHLEY Wilson Primary Care Unavailable LAYA TENORIO, MATA Consulting Unavailable AB LAZCANO Attending Unavailable KATI TENORIO, DR. ASHLEY Wilson Referring Unavailable CHAPARRO CASIANO Attending Unavailable CHAPARRO CASIANO Referring Unavailable IMCA Primary Care Unavailable PROVIDER, UNKNOWN Referring Unavailable RICARDO, INO-CHI Primary Care Unavailable JOSEE LEYVA Attending Unavailable PROBLEMS PROBLEMS DATE TYPE CONDITION / CODE ATTENDING STATUS SOURCE Unknown R94.31 - Abnormal Yovany, Gordy Active [facility] electrocardiogram Community [ECG] [EKG] / Hospital R94.31(ICD-10) Repository Unknown R07.9 - Chest pain, Yovany, Gordy Active [facility] unspecified / Community R07.9(ICD-10) Hospital Repository Unknown I10 - Essential Yovany, Gordy Active [facility] (primary) hypertension Community / I10(ICD-10) Hospital Repository Unknown Z95.1 - Presence of Yovany, Gordy Active [facility] aortocoronary bypass Community graft / Z95.1(ICD-10) Hospital Repository Unknown N39.0 - Urinary tract Ricardo, Ino Chi Active [facility] infection, site not Community specified / Hospital N39.0(ICD-10) Repository Unknown R06.02 - Shortness of Ricardo, Ino Chi Active [facility] breath / Community R06.02(ICD-10) Hospital Repository Unknown R10.9 - Unspecified Ricardo, Ino Chi Active [facility] abdominal pain / Community R10.9(ICD-10) Hospital Repository Unknown D64.9 - Anemia, Ricardo, Ino Chi Active [facility] unspecified / Community D64.9(ICD-10) Hospital Repository Unknown E78.4 - Other Ricardo, Ino Chi Active [facility] hyperlipidemia / Community E78.4(ICD-10) Hospital Repository Admitting Gastrointestinal [facility] Diagnosis hemorrhage, [facility] unspecified / Repository K92.2(ICD-10) Admitting Melena / K92.1(ICD-10) [facility] Diagnosis [facility] Repository Admitting Acute posthemorrhagic [facility] Diagnosis anemia / D62(ICD-10) [facility] Repository Admitting detention (current) [facility] Diagnosis use of [facility] antithrombotics/antipl Repository atelets / Z79.02(ICD-10) Admitting terminal operator (current) [facility] Diagnosis use of aspirin / [facility] Z79.82(ICD-10) Repository Admitting Essential (primary) [facility] Diagnosis hypertension / [facility] I10(ICD-10) Repository Admitting Hyperlipidemia, [facility] Diagnosis unspecified / [facility] E78.5(ICD-10) Repository Admitting Prsnl hx of TIA (TIA), [facility] Diagnosis and cereb infrc w/o [facility] resid deficits / Repository Z86.73(ICD-10) Admitting Nicotine dependence, [facility] Diagnosis cigarettes, [facility] uncomplicated / Repository F17.210(ICD-10) Admitting Athscl heart disease [facility] Diagnosis of [place] coronary [facility] artery w/o ang pctrs / Repository I25.10(ICD-10) Admitting Presence of coronary [facility] Diagnosis angioplasty implant [facility] and graft / Repository Z95.5(ICD-10) Admitting Presence of [facility], [facility] Diagnosis aortocoronary bypass [facility] graft / Z95.1(ICD-10) Repository Admitting Hypothyroidism, MICKNER, Active [facility] Diagnosis unspecified / [facility] E03.9(ICD-10) Repository Admitting Sciatica, unspecified [facility], Active [facility] 8 Diagnosis side / M54.30(ICD-10) [facility] Repository Admitting Anxiety disorder, [facility], [facility] Diagnosis unspecified / [facility] F41.9(ICD-10) Repository Admitting [facility], [facility] Diagnosis reflux disease without [facility] esophagitis / Repository K21.9(ICD-10) Admitting [facility]aphragmatic hernia [facility], [facility] Diagnosis without obstruction or [facility] gangrene / Repository K44.9(ICD-10) Admitting Restless legs syndrome [facility], [facility] Diagnosis / G25.81(ICD-10) [facility] Repository Admitting Other chronic pain / [facility], [facility] Diagnosis G89.29(ICD-10) [facility] Repository Admitting Obesity, unspecified / MICKNER, Active [facility] 8 Diagnosis E66.9(ICD-10) [facility] Repository Admitting Body mass index (BMI) [facility], [facility] Diagnosis 31.0-31.9, adult / [facility] Z68.31(ICD-10) Repository Admitting Hypocalcemia / MICKNER, Active [facility] 8 Diagnosis E83.51(ICD-10) [facility] Repository Unknown R19.7 - Diarrhea, Rd, Active [facility] unspecified / [facility] R19.7(ICD-10) Hospital Repository Active Nicotine dependence, NA Active [facility] unspecified, Clinic Main uncomplicated / [place] F17.200(ICD-10) Repository Active Emphysema, unspecified NA Active [facility] / J43.9(ICD-10) Clinic Main [place] Repository Unknown M54.16 - Basali, [place] Active [facility] Radiculopathy, lumbar Community region / Hospital M54.16(ICD-10) Repository Unknown F11.20 - Opioid Basali, Aygianni Active [facility] dependence, Community uncomplicated / Hospital F11.20(ICD-10) Repository Unknown M54.9 - Dorsalgia, Rasheed, Active [facility] unspecified / Nehemias [facility] M54.9(ICD-10) Hospital Repository Active Contusion of left hip, Active [place] [address] initial encounter / Clinic Main S70.02XA(ICD-10) [place] Repository Active Contusion of left NA [place] [address] thigh, initial Clinic Main encounter / [place] S70.12XA(ICD-10) Repository Active Unknown / UNK(Unknown) Active [address] Main [place] Repository PROCEDURES PROCEDURES No Procedure Records FoundRESULTS RESULTS 12 LEAD ELECTROCARDIOGRAM Observed: 01/08/2018 Status: F Source: [facility] 2:21 PM [facility] H[facility]PITAL REPOSITORY [facility] Cardiovascular Services [address] [place] [address] 12 Lead EKG 01/05/181951 MR#: [id number] Acct: [id number] Name: CHARISSA WALLACE Rep #: [id number] : 1945 72 From: Gordy Pedroza MD Attending Dr: Cruz Roberts MD Status: DIS DIAN Ordering Dr: Zachariah Lawrence MD Date: 01/05/18 Location: [facility] Sex: F C Admitted: 01/05/18 Test Reason : CP Blood Pressure : / mmHG Vent. Rate : 072 BPM Atrial Rate : 072 BPM P-R Int : 182 ms QRS Dur : 088 ms QT Int : 398 ms P-R-T Axes : 066 057 067 degrees QTc Int : 435 ms Normal sinus rhythm Nonspecific T wave abnormality Abnormal ECG Confirmed by YOVANY GOLD, GORDY ([id number]), news video editor LEX OGLESBY ([id number]) on 01/08/2018 2:21:33 PM Referred By: AMANDA/AUSTIN Confirmed By:GRODY PEDROZA MD 01/08/18 1421 Date Gordy Pedroza MD CC: Zachariah Lawrence MD; Cruz Roberts MD; Ino Silva MD Signed 12 LEAD ELECTROCARDIOGRAM Observed: 01/08/2018 Status: F Source: [facility] 2:05 PM [facility] Cardiovascular Services [address] [place] [address] 12 Lead EKG 01/05/18 2321 MR#: [id number] Acct: [id number] Name: CHARISSA WALLACE Rep #: [id number] : 1945 72 From: Gordy Pedroza MD Attending Dr: Cruz Roberts MD Status: DIS DIAN Ordering Dr: Provider,Ed P. Date: 01/05/18 Location: [facility] Sex: F C Admitted: 01/05/18 Test Reason : CP ADMIT Blood Pressure : / mmHG Vent. Rate : 067 BPM Atrial Rate : 067 BPM P-R Int : 190 ms QRS Dur : 090 ms QT Int : 418 ms P-R-T Axes : 051 055 077 degrees QTc Int : 441 ms Normal sinus rhythm Nonspecific T wave abnormality Abnormal ECG When compared with ECG of 29-DEC-2017 04:34, No significant change was found Confirmed by YOVANY GOLD, GORDY ([id number]), news video editor LEX OGLESBY ([id number]) on 01/08/2018 2:04:46 PM Referred By: DR SONI Confirmed By:GORDY PEDROZA MD 01/08/18 1404 Date Gordy Pedroza MD CC: ED PHYSICIAN PROVIDER; Cruz Roberts MD; Ino Silva MD Signed 12 LEAD ELECTROCARDIOGRAM Observed: 01/08/2018 Status: F Source: [facility] 9:19 AM [facility] [place] [facility] Cardiovascular Services [address] [place] [address] 12 Lead EKG 12/29/17 0434 MR#: [id number] Acct: [id number] Name: CHARISSA WALLACE Rep #: [id number] : 1945 72 From: Gordy Pedroza MD Attending Dr: Gordy Pedroza MD Status: DEP SDC Ordering Dr: Humberto Dela Cruz MD Date: 12/29/17 Location: [facility] Sex: F C Admitted: Test Reason : AM EKG Blood Pressure : / mmHG Vent. Rate : 063 BPM Atrial Rate : 063 BPM P-R Int : 188 ms QRS Dur : 082 ms QT Int : 410 ms P-R-T Axes : 001 059 063 degrees QTc Int : 419 ms Normal sinus rhythm Nonspecific T wave abnormality Abnormal ECG When compared with ECG of 28-DEC-2017 10:36, MANUAL COMPARISON REQUIRED, DATA IS UNCONFIRMED Confirmed by GORDY PEDROZA MD ([id number]), news video editor DAVID CARMONA ([id number]) on 01/01/2018 2:03:34 PM Referred By: Gordy Pedroza Confirmed By:GORDY PEDROZA MD 01/01/18 1403 Date Gordy Pedroza MD CC: Gordy Pedroza MD; Humberto Dela Cruz MD; Ino Silva MD Signed 12 LEAD ELECTROCARDIOGRAM Observed: 01/08/2018 Status: F Source: [facility] [place] 9:19 AM [facility] [place] [facility] [facility] Cardiovascular Services [address] [place] [address] 12 Lead EKG 12/28/17 1036 MR#: [id number] Acct: [id number] Name: CHARISSA WALLACE Rep #: [id number] : 1945 72 From: Gordy Pedroza MD Attending Dr: Gordy Pedroza MD Status: DEP SDC Ordering Dr: Humberto Dela Cruz MD Date: 12/28/17 Location: [facility] Sex: F C Admitted: Test Reason : Blood Pressure : / mmHG Vent. Rate : 054 BPM Atrial Rate : 054 BPM P-R Int : 190 ms QRS Dur : 080 ms QT Int : 480 ms P-R-T Axes : 005 068 093 degrees QTc Int : 455 ms Sinus bradycardia Nonspecific T wave abnormality Abnormal ECG When compared with ECG of 26-JUL-2017 19:17, Vent. rate has decreased BY 28 BPM Nonspecific T wave abnormality no longer evident in Inferior leads Confirmed by GORDY PEDROZA MD ([id number]), news video editor DAVID CARMONA ([id number]) on 01/01/2018 2:05:09 PM Referred By: Gordy Pedroza Confirmed By:GORDY PEDROZA MD 01/01/18 1405 Date Gordy Pedroza MD CC: Gordy Pedroza MD; Humberto Dela Cruz MD; Ino Silva MD Signed HISTORY AND PHYSICAL Observed: 01/06/2018 Status: F Source: [facility] EXAM 5:35 PM [facility] [place] [facility] Medical Records Department [address] [place] [address] History and Physical 01/05/18 2131 MR#: [id number] Acct: [id number] Name: CAHRISSA WALLACE Rep #: [id number] : 1945 72 From: Zachariah Lawrence MD PCP: Ino Silva MD, Chi Status: DIS DIAN Y Location: [place] [address] ADDENDUM by Zachariah Lawrence MD on 01/06/18 at 1735 Code Visit Previous documented as: Right groin pain. Likely osteoarthritis. Patient declined Tylenol . He said in the past he is taking [place] for pain. Will order [place] for now Patient to follow-up with PCP after discharge. Corrected to: Left groin pain. Likely osteoarthritis. Patient declined Tylenol . He said in the past he is taking [place] for pain. Will order [place] for now Patient to follow-up with PCP after discharge. 01/06/18 1735 <Electronically signed by Zachariah Lawrence MD> Date Zachariah Lawrence MD cc: Zachariah Lawrence MD; Ino Silva MD * Signed Problem List (1) Chest pain Status: Acute History of Present Illness Date of Admission: 01/05/18 Chief Complaint: chest pain The patient is a 72 year old F with a significant history of COPD; anxiety disorder; TIA; tobacco abuse; CAD status post quadruple bypass and 8 coronary stents with last 2 stents placed in her right coronary artery about a week ago who presented with a transient substernal sharp chest pain that radiated to her left arm and left leg. Associated with her symptoms is nausea; vertigo; lightheadedness and near syncope. Also patient complains of left-sided groin pain that has been going on for 1 month. Of note her recent cardiac cath was done at the opposite side; right groin. ED doctor reported unremarkable pelvic exams. Past Medical History Past Medical History (Chronic Problems): Chronic Problems (Last Reviewed 01/06/18 @ 03:19 by Zachariah Lawrence MD) Non-rheumatic tricuspid valve insufficiency (Chronic) Secondary pulmonary arterial hypertension (Chronic) Nicotine dependence (Chronic) Hyperlipidemia (Chronic) Atherosclerosis of coronary artery of [place] heart with angina pectoris (Chronic) Ers-ETM-YAL-Mid RCA w/ 2.0 x 10 mm Angiosculpt and 2.5 x 38 mm Promus Synergy Stent, BRIANA-Prox RCA 2.5 x 12 mm Prmomus Synergy Stent 12/28/17 CPP-SAS-Rjqpx Cx w/ 2.5 x 24mm Promus 03/12/2011, ABO-Ebylu-JXU;PCI-Prox LAD; CABG x 3 SY-LAD, SVG-OM and SVG-RCA Essential (primary) hypertension (Chronic) TIA (transient ischemic attack) (Chronic) Benzodiazepine dependence (Chronic) Medical History: Medical History (Last Reviewed 01/06/18 @ 03:19 by Zachariah Lawrence MD) Non-rheumatic tricuspid valve insufficiency (Chronic) I36.1 Secondary pulmonary arterial hypertension (Chronic) I27.21 Nicotine dependence (Chronic) F17.200 Hyperlipidemia (Chronic) E78.5 Atherosclerosis of coronary artery of [place] heart with angina pectoris (Chronic) I25.119 Nlo-AGB-DOY-Mid RCA w/ 2.0 x 10 mm Angiosculpt and 2.5 x 38 mm Promus Synergy Stent, BRIANA-Prox RCA 2.5 x 12 mm Prmomus Synergy Stent 12/28/17 GZS-NZZ-Leqya Cx w/ 2.5 x 24mm Promus 03/12/2011, MSX-Wlirc-ZJV;PCI-Prox LAD; CABG x 3 SY-LAD, SVG-OM and SVG-RCA Essential (primary) hypertension (Chronic) I10 TIA (transient ischemic attack) (Chronic) Benzodiazepine dependence (Chronic) F13.20 Anxiety and depression F41.9, F32.9 Back pain M54.9 COPD (chronic obstructive pulmonary disease) J44.9 Hypothyroidism E03.9 Obstructive sleep apnea G47.33 Allergies morphine Allergy (Verified 01/05/18 19:53) PT UNSURE Penicillins Allergy (Verified 01/05/18 19:53) Hives tramadol HCl [From Ultram] Allergy (Verified 01/05/18 19:53) PT UNSURE Home Medications: Ambulatory Orders Medication Instructions Recorded Aspirin E.C. [Ecotrin] 81 mg PO DAILY@0800 09/06/17 Levothyroxine [Synthroid] 75 mcg PO DAILY 09/06/17 citalopram 40 mg tablet 40 mg PO DAILY 12/18/17 Surgical History: Surgical History (Last Reviewed 01/06/18 @ 03:19 by Zachariah Lawrence MD) History of coronary artery stent placement (Resolved) Onset Date: 12/28/17 Z95.5 Jyo-DWL-ENH-Mid RCA w/ 2.0 x 10 mm Angiosculpt and 2.5 x 38 mm Promus Synergy Stent, BRIANA-Prox RCA 2.5 x 12 mm Prmomus Synergy Stent 12/28/17 NZH-YED-Ttcex Cx w/ 2.5 x 24mm Promus 03/12/2011, FUN-Oyhoz-JUT;PCI-Prox LAD; History of coronary artery bypass graft x 3 (Resolved) Z95.1 CABG x 3 SY-LAD, SVG-OM and SVG-RCA History of appendectomy Z90.49 History of left heart catheterization Onset Date: 12/28/17 Z98.890 Hx of cholecystectomy Z90.49 Surgical History: angioplasty - A total of 5 stents, coronary bypass surgery - 3 vessel bypass surgery, - - Tubal ligation; and partial oopherectomy. 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 Maternal History Items: Cancer - Mother of cancer at age 72. Review of Systems Constitutional: Denies: Chills, Fever, Weight Change HEENT: Denies: Head Aches, Sinus Congestion, Sinus Drainage Cardiovascular: Reports: Chest Pain. Denies: Palpitations Respiratory: Denies: Cough, Shortness of breath at rest, Sputum production Gastrointestinal: Reports: Nausea. Denies: Abdominal Pain, Vomiting Genitourinary: Denies: Dysuria Musculoskeletal: Denies: Joint Pain, Joint Tenderness Skin: Denies: Rash, Wounds Neurological: Denies: Numbness, Tingling, Focal weakness Psychiatric: Denies: Anxiety, Depression, Homicidal Ideations, Suicidal Ideations Hematologic/ Lymphatic: Denies: Easy Bruising, Easy Bleeding VTE Information - Inpt Only VTE Present on Admission: No VTE Mechan Device Prophylaxis: None VTE Pharm Prophylaxis ordered?: Yes - Physical Exam General: Alert, Oriented x3, Cooperative HEENT: Atraumatic, PERRLA, EOMI, Normocephalic Neck: Supple, No JVD, Negative Carotid Bruits Lungs: Clear to auscultation, Normal air movement Cardiovascular: Regular rate, No murmurs Abdomen: Bowel Sounds Present, Soft, Non Tender Extremities: No edema, Capillary Refill Less than 3 Seconds, Tenderness - left groin, - Skin: No rashes, No breakdown Musculoskeletal: No Tenderness to Palpation of Joints or Extremities Neurological: Cranial nerves II-XII grossly intact Psych/Mental Status: Normal Affect, Appropriate Vital Signs Temp Pulse Resp BP Pulse Ox 98.1 F 71 15 136/70 H 97 01/05/18 19:49 01/05/18 19:49 01/05/18 19:49 01/05/18 19:49 01/05/18 19:54 Oxygen Flow Rate (L/min) 2 Oxygen Delivery Method Nasal Cannula Weight: 74.9 kg Body Mass Index (BMI) 31.1 Finger Stick Blood Glucose 145 Laboratory Tests Past 24 Hrs Assessment/Plan All Active Problems (Last Reviewed 01/06/18 @ 03:19 by Zachariah Lawrence MD) Chest pain (Acute) Dyspnea (Acute) History of coronary artery stent placement (Resolved 12/28/17) History of coronary artery bypass graft x 3 (Resolved) The patient is a 72 year old F with a significant history of COPD; anxiety disorder; TIA; tobacco abuse; CAD status post quadruple bypass and 8 coronary stents with last 2 stents placed in her right coronary artery about a week ago who presented with a transient substernal sharp chest pain that radiated to her left arm and left leg; and also with right groin pain. Chest Pain Admit to a monitored bed on PCU CXR independently reviewed confirms cardiomegaly without any acute cardiopulmonary process. EKG independently reviewed confirms sinus rhythm ASA 81 mg p.o. daily SL NTG 0.4 mg prn as needed for chest pain Patient takes Plavix every other day. Her last dose of Plavix was on same day of presentation (01/05/18). Her next Plavix is actually due on 01/07/18. Will give additional dose of Plavix on 01/06/18. Atenolol and lisinopril continued. Serial cardiac enzymes Stat EKG as needed for chest pain Case was discussed with cardiology. Cardiology recommended stress test in the AM if the cardiac enzymes are negative. Stress test ordered. Right groin pain. Likely osteoarthritis. Patient declined Tylenol . He said in the past he is taking [place] for pain. Will order [place] for now Patient to follow-up with PCP after discharge. COPD Stable On home tiotropium/olodaterol DuoNeb scheduled while inpatient. Hypertension Blood pressure not within goal at admission. Lisinopril and atenolol continued. Trend and adjust blood pressure medication as necessary. Anxiety Ativan continued. Hypothyroidism Synthroid continued GERD On home Nexium. Continued on Protonix while inpatient. PPI continued. Tobacco abuse Counseled Patient reports that she has a prescription for Wellbutrin that she will start outpatient. Refused nicotine patch stating that she has a reaction to it. DVT prophylaxis Heparin subcutaneous ordered. Code Visit OBSV E AND M: [id number] Initial observation care L3 01/06/18 0459 <Electronically signed by Zachariah Lawrence MD> Date Zachariah Lawrence MD Cosigner Signature: Date (if applicable) CC: Zachariah Lawrence MD; Ino Silva MD Signed DISCHARGE SUMMARY Observed: 01/06/2018 Status: F Source: [place] 4:06 PM [facility] [place] [facility] Medical Records Department [address] [place] [address] Discharge Summary 01/06/18 1256 MR#: [id number] Acct: [id number] Name: CHARISSA WALLACE Rep #: [id number] : 1945 72 From: Abena Dennis 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 Chest pain, ACS ruled out 2. CAD status post recent PCI to mid RCA 12/28/17 3. Hypertension 4. Hyperlipidemia 5. History of TIA 6. Anxiety/depression 7. Hypothyroidism 8. GERD - Secondary Discharge Diagnosis Chronic Problems (Last Reviewed 01/06/18 @ 03:19 by Zachariah Lawrence MD) Non-rheumatic tricuspid valve insufficiency (Chronic) Secondary pulmonary arterial hypertension (Chronic) Nicotine dependence (Chronic) Hyperlipidemia (Chronic) Atherosclerosis of coronary artery of [place] heart with angina pectoris (Chronic) Ipk-VLZ-SDC-Mid RCA w/ 2.0 x 10 mm Angiosculpt and 2.5 x 38 mm Promus Synergy Stent, BRIANA-Prox RCA 2.5 x 12 mm Prmomus Synergy Stent 12/28/17 PVF-AJM-Huhlh Cx w/ 2.5 x 24mm Promus 03/12/2011, MSU-Hbehm-PNV;PCI-Prox LAD; CABG x 3 SY-LAD, SVG-OM and SVG-RCA Essential (primary) hypertension (Chronic) TIA (transient ischemic attack) (Chronic) Benzodiazepine dependence (Chronic) Hospital Course and Treatment Imaging Results: Diagnostic Data Chest X-Ray 01/05/18 20:00 IMPRESSION: No acute thoracic pathology. Electronically Signed: Lee Dunn, at 20:31 EST Tel , Service support , Hip/Pelvis X-Ray 01/05/18 21:00 IMPRESSION: No fracture or dislocation in the pelvis and bilateral hips. Mild degenerative change. Electronically Signed: Lee Dunn, at 21:29 EST Tel , Service support , Operations: None Procedures: Stress test Summary of Care Provided: The patient is a 72 year old F admitted 01/05/2018 due to chest pain. 1. Chest pain, ACS ruled out-troponin negative. EKG without ST-T changes. Patient underwent nuclear stress test which was negative for ischemia. Patient will continue outpatient follow-up with cardiology. 2. CAD status post recent PCI to mid RCA/proximal RCA 12/28/17- upcoming follow-up appointment with Dr. Pedroza 01/22/2018. Continue aspirin, statin, Plavix, atenolol. 3. Hypertension-stable, continue home atenolol, lisinopril regimen. 4. Hyperlipidemia-continue statin. 5. History of TIA 6. Anxiety/depression-continue home regimen. 7. Hypothyroidism-continue Synthroid regimen. 8. GERD-continue PPI. General: Alert, Oriented x3, Cooperative HEENT: Atraumatic, PERRLA, EOMI, Normocephalic Neck: Supple, No JVD, Negative Carotid Bruits Lungs: Clear to auscultation, Normal air movement Cardiovascular: Regular rate, No murmurs Abdomen: Bowel Sounds Present, Soft, Non Tender Extremities: No edema, Capillary Refill Less than 3 Seconds, No edema Skin: No rashes, No breakdown Musculoskeletal: No Tenderness to Palpation of Joints or Extremities Neurological: Cranial nerves II-XII grossly intact Psych/Mental Status: Normal Affect, Appropriate Patient seen and examined prior to discharge. Physical assessment as noted above. Patient is stable for discharge with follow up recommendations as noted above. This patient was seen by ROSA Velazquez under the supervision of Dr. Roberts. - Physical Exam Vital Signs Temp Pulse Resp BP Pulse Ox 96.8 F L 69 18 145/56 H 96 01/06/18 09:13 01/06/18 11:12 01/06/18 09:13 01/06/18 09:13 01/06/18 09:13 Oxygen Flow Rate (L/min) 98 Oxygen Delivery Method Room Air Weight: 155 lb 6.814 oz Body Mass Index (BMI) 29.3 Finger Stick Blood Glucose 145 Intake and Output for Last 24 Hours Intake Total 560 / 560 Balance 560 / 560 Laboratory Tests Past 24 Hrs WBC 8.3 RBC 4.06 L Hgb 11.0 L Hct 35.1 L MCV 86.5 WBC RBC Hgb Hct Discharge Diet: Low fat/ Low Cholesterol Discharge Activity: Return to Normal Activity Call your doctor if you observe: Shortness of breath, Dizziness, Fainting spells, Swelling in the ankles, Chest pain Home Medications: Medications to take at Discharge Aspirin E.C. [Ecotrin] 81 mg PO DAILY@0800 09/06/17 Levothyroxine [Synthroid] 75 mcg PO DAILY 09/06/17 citalopram 40 mg tablet 40 mg PO DAILY 12/18/17 clopidogrel 75 mg tablet 75 mg PO QODAY 12/18/17 esomeprazole magnesium 20 mg capsule,delayed release 40 mg PO DAILY 12/18/17 ipratropium 20 mcg-albuterol 100 mcg/actuation mist for inhalation 1 puff INHALATION Q6H 12/18/17 lisinopril 40 mg tablet 40 mg PO DAILY tab 12/18/17 tiotropium 2.5 mcg-olodaterol 2.5 mcg/actuation mist for inhalation 1 puff INHALATION DAILY g 12/18/17 Atenolol [Tenormin (beta estefania)] 25 mg PO DAILY 01/05/18 Atorvastatin Calcium 40 mg PO DAILY 01/05/18 Citalopram Hydrobromide [Citalopram HBr] 20 mg PO DAILY 01/05/18 Lorazepam [Ativan] 2 mg PO TID 01/05/18 Pnv No.122/Iron/Folic Acid [ Multi Tablet] 1 tab PO DAILY 01/05/18 Psyllium Husk [Metamucil] 5 ml PO DAILY 01/05/18 Ondansetron [Zofran Odt] 4 mg PO DAILY 01/06/18 Primary Care Physician: Ino Silva Chi, MD [Primary Care Provider] - Please follow up with your Primary Care Physician in: 1 Week Please Follow Up With: Gordy Pedroza MD When: As scheduled, 01/22/2018 Disposition: Home Minutes spent on discharge:: 35 Patient Condition:: Stable Medical Necessity - Tobacco Use Smoking Status: Current every day smoker Meaningful Use Info Meaningful Use Diagnoses (Choose all that apply): None applicable <Cruz Roberts F - Last Filed: 01/06/18 16:06> Discharge Date and Diagnosis - Secondary Discharge Diagnosis Chronic Problems (Last Reviewed 01/06/18 @ 03:19 by Zachariah Lawrence MD) Non-rheumatic tricuspid valve insufficiency (Chronic) Secondary pulmonary arterial hypertension (Chronic) Nicotine dependence (Chronic) Hyperlipidemia (Chronic) Atherosclerosis of coronary artery of [place] heart with angina pectoris (Chronic) Dxx-HUP-AVX-Mid RCA w/ 2.0 x 10 mm Angiosculpt and 2.5 x 38 mm Promus Synergy Stent, BRIANA-Prox RCA 2.5 x 12 mm Prmomus Synergy Stent 12/28/17 RHP-NFI-Tfrdk Cx w/ 2.5 x 24mm Promus 03/12/2011, BHP-Bftbo-IKY;PCI-Prox LAD; CABG x 3 SY-LAD, SVG-OM and SVG-RCA Essential (primary) hypertension (Chronic) TIA (transient ischemic attack) (Chronic) Benzodiazepine dependence (Chronic) Hospital Course and Treatment Summary of Care Provided: The patient is a 72 year old F [] - Physical Exam Vital Signs Temp Pulse Resp BP Pulse Ox 97.8 F 64 16 138/61 H 97 01/06/18 13:15 01/06/18 13:15 01/06/18 13:15 01/06/18 13:15 01/06/18 13:15 Oxygen Flow Rate (L/min) 98 Oxygen Delivery Method Room Air Weight: 155 lb 6.814 oz Body Mass Index (BMI) 29.3 Finger Stick Blood Glucose 145 Intake and Output for Last 24 Hours Intake Total 560 / 560 Balance 560 / 560 Laboratory Tests Past 24 Hrs WBC 8.3 RBC 4.06 L Hgb 11.0 L Hct 35.1 L MCV 86.5 WBC RBC Hgb Hct Code Visit Addendum by Dr. Roberts I agree with above and I personally examined the patient and reviewed the patient's chart. 72-year-old female with a significant history of COPD, anxiety disorder, TIA, tobacco abuse, CAD status post quadruple bypass and a coronary stent with the last tube placed in the right coronary artery about a week ago, who presents with a transient stop substernal chest pain. She had a stress test today which was negative. We will make no changes to her medications and she will follow-up with cardiology as an outpatient. OBSV E AND M: [id number] Observation care discharge 01/06/18 1304 <Electronically signed by Abena LEE> Date Abena LOYOLAC 01/06/18 1606<Electronically signed by Cruz Roberts MD> Cosigner Signature (if applicable): Date Cruz Roberts MD CC: ROSA Dennis; Cruz Roberts MD; Ino Silva MD Signed DISCHARGE INSTRUCTION Observed: 01/06/2018 Status: F Source: [place] 12:55 PM [facility] [place] [facility] Medical Records Department [address] [place] [address] Instructions for Home/Discharge Instructions 01/06/18 1253 MR#: [id number] Acct: [id number] Name: CHARISSA WALLACE Rep #: [id number] : 1945 72 From: Abena LEE PCP: Ricardo GOLD,Ino Ngo Status: ADM DIAN You will use the following diet at home:: Cardiac Discharge Activity: Return to Normal Activity Call your doctor if you observe: Shortness of breath, Dizziness, Fainting spells, Swelling in the ankles, Chest pain Allergies/Adverse Reactions: Allergies morphine Allergy (Verified 01/05/18 19:53) PT UNSURE Penicillins Allergy (Verified 01/05/18 19:53) Hives tramadol HCl [From Ultram] Allergy (Verified 01/05/18 19:53) PT UNSURE Medications to take at Discharge Aspirin E.C. [Ecotrin] 81 mg PO DAILY@0800 09/06/17 Levothyroxine [Synthroid] 75 mcg PO DAILY 09/06/17 citalopram 40 mg tablet 40 mg PO DAILY 12/18/17 clopidogrel 75 mg tablet 75 mg PO QODAY 12/18/17 esomeprazole magnesium 20 mg capsule,delayed release 40 mg PO DAILY 12/18/17 ipratropium 20 mcg-albuterol 100 mcg/actuation mist for inhalation 1 puff INHALATION Q6H 12/18/17 lisinopril 40 mg tablet 40 mg PO DAILY tab 12/18/17 tiotropium 2.5 mcg-olodaterol 2.5 mcg/actuation mist for inhalation 1 puff INHALATION DAILY g 12/18/17 Atenolol [Tenormin (beta estefania)] 25 mg PO DAILY 01/05/18 Atorvastatin Calcium 40 mg PO DAILY 01/05/18 Citalopram Hydrobromide [Citalopram HBr] 20 mg PO DAILY 01/05/18 Lorazepam [Ativan] 2 mg PO TID 01/05/18 Pnv No.122/Iron/Folic Acid [ Multi Tablet] 1 tab PO DAILY 01/05/18 Psyllium Husk [Metamucil] 5 ml PO DAILY 01/05/18 Ondansetron [Zofran Odt] 4 mg PO DAILY 01/06/18 Primary Care Physician: Ino Silva Chi, MD [Primary Care Provider] - Please follow up with your Primary Care Physician in: 1 Week Test Results: Test results from this visit will be discussed in further detail at your follow-up appointment, if applicable. Please Follow Up With: Gordy Pedroza MD When: As scheduled, 01/22/2018 Proposed Discharge Date: 01/06/18 01/06/18 1255 <Electronically signed by Abena LEE> Date Abena LEE CC: Ino Silva MD STRESS REPORT Observed: 01/06/2018 Status: F Source: [place] 12:46 PM [facility] [place] [facility] Cardiovascular Services [address] [place] [address] MR#: [id number] Acct: [id number] Name: CHARISSA WALLACE Rep #: [id number] : 1945 72 From: Gordy Pedroza MD Primary Care: Ricardo GOLD,Ino Ngo Status: ADM DIAN Ordering Dr: Sex: F C Stress Test Report Pharmacologic myocardial perfusion stress test. 72-year-old lady with a history of coronary artery disease. Stress protocol: Resting EKG demonstrates normal sinus rhythm with rate of 64 bpm normal intervals are noted resting blood pressure is 148/82 mmHg. 0.4 mg of regadenoson was infused per usual protocol followed by rapid intravenous saline flush injection continuous EKG monitoring was performed. Patient maintained sinus rhythm throughout the recording with occasional premature atrial complexes noted. The maximum heart rate attained was 90 bpm which was 60% of maximum predicted heart rate the maximum workload was 1 metabolic equivalent. At rest there were no ST or T wave changes noted to suggest abnormal flow reserve at peak infusion no ST or T wave changes were noted suggest abnormal flow reserve. Resting blood pressure 148/82 final blood pressure 150/70. Myocardial perfusion protocol. 11.1 mCi of technetium 99m sestamibi was injected at rest. 0.4 mg of regadenoson was infused per usual protocol. At peak infusion 32.9 mCi of technetium 99m sestamibi was injected stress images were obtained stress and rest images were reconstructed and compared in the short axis vertical long horizontal long axis. Gated images were also obtained Perfusion SPECT analysis: Review of the stress images demonstrate normal uptake of tracer noted in all areas of the myocardium. The resting images similarly demonstrate normal uptake of tracer noted in all areas of the myocardium. No areas of reversibility are noted suggest ischemia and no previous infarct is noted. Gated SPECT analysis: The gated ejection fraction is noted to be 63%. Conclusion: Normal pharmacologic myocardial perfusion stress test. Preserved ejection fraction. 01/06/18 1246 <Electronically signed by Gordy Pedroza MD> Date Gordy Pedroza MD CC: Cruz Roberts MD; Ino Silva MD Date Dictated: 01/06/181240 Date Transcribed: 01/06/181240 Boiler Coverer: CO Signed CBC-COMPLETE BLOOD CNT Collected: 01/06/2018 Status: F Source: [place] NO DIFF 2:45 AM [facility] [place] TYPE CODE TESTS RESULT OUT OF RANGE REFERENCE UNITS LAB L100.1000 4.4-11.0 K/mm3 Normal WBC 8.3 LAB L100.1200 4.2-5.4 M/mm3 Low RBC 4.06 LAB L100.1300 12.0-15.0 g/dl Low HGB 11.0 LAB L100.1400 37-47 % Low HCT 35.1 LAB L100.1500 81-99 fL Normal MCV 86.5 LAB L100.1600 27.0-32.0 pg Normal MCH 27.1 LAB L100.1700 32-36 g/gl Low MCHC 31.3 LAB L100.1810 11.6-14.6 % High RDW CV 17.8 LAB L100.1820 35.1-43.9 fl High RDW SD 57.1 LAB L100.1900 150-450 K/mm3 Normal PLT 263 LAB L100.2000 6.2-12.0 fl Normal MPV 10.3 Performed By: #### L100.0500 #### [facility] [address], [place], [id number] PROTHROMBIN TIME W/INR Collected: 01/06/2018 Status: F Source: [place] 2:45 AM [facility] [place] TYPE CODE TESTS RESULT OUT OF RANGE REFERENCE UNITS LAB L300.4150 11.7-14.9 SECONDS Normal PROTIME 12.7 LAB L300.4200 Normal INR 1.0 Performed By: #### L300.3900, L300.4310 #### [facility] [address], [place], [address] PARTIAL THROMBOPLAST Collected: 01/06/2018 Status: F Source: [place] TIME 2:45 AM [facility] [place] TYPE CODE TESTS RESULT OUT OF RANGE REFERENCE UNITS LAB L300.4310 24.1-36.2 Seconds Normal PTT 27.8 Performed By: #### L300.3900, L300.4310 #### [facility] [address] [place], [address] TROPONIN-I Collected: 01/06/2018 Status: F Source: [place] 2:45 AM [facility] [place] Order Comment: 'TROP' Serial specimen #1, #2 or #3: 3 TYPE CODE TESTS RESULT OUT OF RANGE REFERENCE UNITS LAB L501.4010 <0.045 ng/mL Normal 0.017 TROPONIN-I Result Comment: TROPONIN-I EXPECTED VALUES <0.045 Negative 0.045 - 0.590 Consistent with Cardiac Damage > OR = 0.600 Critical Value Not every elevated troponin is indicative of OR. These values should be used with clinical judgement in examining the patient's clinical picture for diagnosis. To establish a diagnosis of OR versus myocardial injury, there must be a demonstrated rise and/or fall in the troponin values, in addition to ischemic symptoms, EKG changes, new regional wall motion abnormality, and/or angiographical evidence. PLEASE NOTE: REFERENCE RANGES EDITED 17 Performed By: #### L501.4010 #### [facility] [address] [place], [address] BASIC METABOLIC Collected: 01/06/2018 Status: F Source: [place] PROFILE ([facility]) 2:45 AM [facility] [place] TYPE CODE TESTS RESULT OUT OF RANGE REFERENCE UNITS LAB L501.0100 74-106 mg/dL Normal GLU 97 Result Comment: Please note revised GLUCOSE reference range effective 2017. LAB L501.1000 7-18 mg/dL High BUN 19 LAB L501.1100 0.55-1.02 mg/dL Normal CREAT,SERUM 0.68 Result Comment: The validity of the calculated GFR AND GFRAA in patients over 70 years has not been determined. Clinical correlation is essential. LAB L501.1110 >60 mL/min Normal EST GFR 91 Result Comment: Non- GFR Calc LAB L501.1115 >60 mL/min Normal EST GFR - AA 111 Result Comment: GFR Calc LAB L501.1255 ml/min Normal Estimated CRCL 39.50 LAB L501.1300 10-20 RATIO High BUN/CRE 28.1 LAB L501.2200 8.5-10 mg/dL Low .1 CA 7.9 LAB L501.5300 136-14 mmol/L Normal 5 NA 145 LAB L501.5600 3.5-5. mmol/L Normal 1 K 3.8 LAB L501.5900 98-107 mmol/L High CL 108 LAB L501.6100 21.0-3 mmol/L Normal 2.0 CO2 30.0 LAB L501.6200 5-15 Normal GAP 7 Performed By: #### L500.2500 #### [facility] [address] [place], [address] EMERGENCY DEPARTMENT Observed: 01/05/2018 Status: F Source: [place] SUMMARY 11:04 PM [facility] [place] [facility] Medical Records Department [address] [place] [address] Emergency Department Summary 01/05/189 MR#: [id number] Acct: [id number] Name: CHARISSA WALLACE Rep #: [id number] : 1945 72 From: Hany Murphy MD PCP: Ino Silva MD, Chi Status: ADM DIAN - ER Visit Summary Date of Service: 01/05/18 Chief Complaint: Chest pain and near syncope History of Present Illness: The patient is a 72 F that is both cardiac cath and 2 cardiac stents approximately a week ago here at [facility]. Other prior cardiac stents and prior triple bypass in 2006. Patient states that she was on the phone had midsternal chest pain that caused her to feel like she may pass out and laid on the ground. But never lost consciousness. She felt dizzy with it. She felt nauseated. Did not vomit. Denies any shortness of breath. Currently her symptoms have resolved. Physical Examination:. She is afebrile. She is in no distress. Her pulse ox is 97% on 2 L. No hypoxia. HEENT exam unremarkable. Neck nontender. No JVD. Lungs clear to auscultation bilaterally. Heart regular rhythm no murmur. Chest wall nontender. Abdomen is soft and nontender. Normal bowel sounds. No peritoneal signs. She is moving all 4 extremities. She has resolving bruising in her right groin from the recent cardiac catheterization. She has soft tissue muscular tenderness in her left groin. Calves are nontender without edema. Neurologically she is awake alert with no Test Results: EKG shows a sinus rhythm rate of 72 with no acute signs of OR or ischemia no change from the prior EKG. Chest x-ray shows no acute abnormality read by myself the radiologist. Prior sternotomy. A pelvis and left hip x-ray was also obtained due to her groin pain which showed no acute abnormality. CBC normal except for hemoglobin of 11. White count of 9. Chemistries unremarkable. Creatinine gap normal. Troponin is normal. Emergency Department Course and Treatment: Repeat exam the patient is doing well at 2120. I discussed with her and her family all test results. She will stay in overnight for further evaluation. Treatment Plan: I am I spoke with the hospitalist is down here admitting the patient. Disposition: Admission Impression: Acute chest pain of uncertain etiology with near syncope. Status post cardiac cath with 2 recent cardiac stents. History of CAD and CABG. This note was generated with [employer]antage[employer] software. It may contain incorrect words, spelling, and punctuation that were not noted in review of the chart prior to signing ED Disposition - Plan for ED Patient: Chief Complaint: Chest Pain Referrals: Ino Silva Chi, MD [Primary Care Provider] - What to do if you have Problems For any increased pain, shortness of breath, bleeding, nausea or vomiting, chest pain, or any unexpected problems, contact your Primary Care Provider. Call [facility] ([phone]) or report to the closest Emergency Room. Call 911 if necessary. 01/05/18 4340 <Electronically signed by Hany Murphy MD> Date Hany Murphy MD Cosigner Signature (If Indicated): Date CC: Ino Silva MD TROPONIN-I Collected: 01/05/2018 Status: F Source: [place] 10:55 PM [facility] [place] Order Comment: 'TROP' Serial specimen #1, #2 or #3: 2 TYPE CODE TESTS RESULT OUT OF RANGE REFERENCE UNITS LAB L501.4010 <0.045 ng/mL Normal 0.022 TROPONIN-I Result Comment: TROPONIN-I EXPECTED VALUES <0.045 Negative 0.045 - 0.590 Consistent with Cardiac Damage > OR = 0.600 Critical Value Not every elevated troponin is indicative of OR. These values should be used with clinical judgement in examining the patient's clinical picture for diagnosis. To establish a diagnosis of OR versus myocardial injury, there must be a demonstrated rise and/or fall in the troponin values, in addition to ischemic symptoms, EKG changes, new regional wall motion abnormality, and/or angiographical evidence. PLEASE NOTE: REFERENCE RANGES EDITED 17 Performed By: #### L501.4010 #### [facility] [address] [place] [address]. [place], [address] HIPS B/L MIN 2 Observed: 01/05/2018 Status: F Source: [place] VIEWS W/ PELVIS 8:45 PM [facility] [place] [facility] Imaging Services [address] [place] [address] Hips B/L min 2 views w/ Pelvis MR#: [id number] Acct: [id number] Name: CHARISSA WALLACE Rep #: [id number] : 1945 F 72 From: Lee Dunn MD PCP: Ricardo GOLD,[employer] Status: REG ER Study: Hips B/L min 2 views w/ Pelvis Date of Exam: 01/05/18 Exam# [id number] Ordering Dr: Hany Murphy MD STUDY: X-RAY - BILATERAL HIPS WITHOUT PELVIS REASON FOR EXAM: Female, 72 years old. Pain TECHNIQUE: 2 views of the right hip, and 2 views of the left hip were obtained. COMPARISON: None. FINDINGS: Right Hip: No fracture or dislocation. Mild degenerative change. Left Hip: No fracture or dislocation. Mild degenerative change. RAD/Hips B/L min 2 views w/ Pelvis IMPRESSION: No fracture or dislocation in the pelvis and bilateral hips. Mild degenerative change. Electronically Signed: Lee Dunn, at 21:29 EST Tel , Service support , CC: Hany Murphy MD; Ino Silva MD Boiler Coverer: Signed PROTHROMBIN TIME W/INR Collected: 01/05/2018 Status: F Source: [place] 7:55 PM [facility] [place] TYPE CODE TESTS RESULT OUT OF RANGE REFERENCE UNITS LAB L300.4150 11.7-14.9 SECONDS Normal PROTIME 12.9 LAB L300.4200 Normal INR 1.0 Performed By: #### L300.3900 #### [facility] [address] [place], [address] CBC W/DIFF, AUTOMATED Collected: 01/05/2018 Status: F Source: [place] 7:55 PM [facility] [place] TYPE CODE TESTS RESULT OUT OF RANGE REFERENCE UNITS LAB L100.1000 4.4-11.0 K/mm3 Normal WBC 9.8 LAB L100.1200 4.2-5.4 M/mm3 Low RBC 4.07 LAB L100.1300 12.0-15.0 g/dl Low HGB 11.4 LAB L100.1400 37-47 % Low HCT 35.2 LAB L100.1500 81-99 fL Normal MCV 86.5 LAB L100.1600 27.0-32.0 pg Normal MCH 28.0 LAB L100.1700 32-36 g/gl Normal MCHC 32.4 LAB L100.1810 11.6-14.6 % High RDW CV 17.7 LAB L100.1820 35.1-43.9 fl High RDW SD 55.9 LAB L100.1900 150-450 K/mm3 Normal PLT 254 LAB L100.2000 6.2-12.0 fl Normal MPV 10.3 LAB L100.2100 47-70 % Normal NEUT% 52.7 LAB L100.2200 19-41 % Normal LY% 37.9 LAB L100.2300 0-10 % Normal MONO% 6.3 LAB L100.2400 0-5 % Normal EO% 2.5 LAB L100.2500 0-1 % Normal BASO% 0.4 LAB L100.2550 0.0-0.9 % Normal IM GRAN % 0.200 Result Comment: IG% - Immature Granulocytes (promyelocytes, myelocytes and metamyelocytes) > 1% indicates that a LEFT SHIFT is Present. LAB L100.2620 2.0-7.7 X10 3/uL Normal Absolute Neut 5.2 LAB L100.2720 0.83-4.51 X10 3/ul Normal Absolute Lymph 3.70 Performed By: #### L100.0100 #### [facility] [address] [place], [address] BASIC METABOLIC Collected: 01/05/2018 Status: F Source: [place] PROFILE (BMP) 7:55 PM [facility] [place] TYPE CODE TESTS RESULT OUT OF RANGE REFERENCE UNITS LAB L501.0100 74-106 mg/dL High GLU 122 Result Comment: Fasting Glucose result from 100 to 125 mg/dL suggests IMPAIRED HOMEOSTASIS per A.D.A. criteria. Please note revised GLUCOSE reference range effective 2017. LAB L501.1000 7-18 mg/dL High BUN 19 LAB L501.1100 0.55-1.02 mg/dL Normal CREAT,SERUM 0.79 Result Comment: The validity of the calculated GFR AND GFRAA in patients over 70 years has not been determined. Clinical correlation is essential. LAB L501.1110 >60 mL/min Normal EST GFR 76 Result Comment: Non- GFR Calc LAB L501.1115 >60 mL/min Normal EST GFR - AA 92 Result Comment: GFR Calc LAB L501.1255 ml/min Normal Estimated CRCL 39.50 LAB L501.1300 10-20 RATIO High BUN/CRE 24.1 LAB L501.2200 8.5-10 mg/dL Low .1 CA 8.1 LAB L501.5300 136-14 mmol/L Normal 5 NA 141 LAB L501.5600 3.5-5. mmol/L Normal 1 K 3.6 LAB L501.5900 98-107 mmol/L Normal CL 107 LAB L501.6100 21.0-3 mmol/L Normal 2.0 CO2 29.0 LAB L501.6200 5-15 Normal GAP 5 Performed By: #### L500.2500, L501.4010 #### [facility] [address] [facility] [place], [address] TROPONIN-I Collected: 01/05/2018 Status: F Source: [place] 7:55 PM [facility] [place] TYPE CODE TESTS RESULT OUT OF RANGE REFERENCE UNITS LAB L501.4010 <0.045 ng/mL Normal 0.017 TROPONIN-I Result Comment: TROPONIN-I EXPECTED VALUES <0.045 Negative 0.045 - 0.590 Consistent with Cardiac Damage > OR = 0.600 Critical Value Not every elevated troponin is indicative of OR. These values should be used with clinical judgement in examining the patient's clinical picture for diagnosis. To establish a diagnosis of OR versus myocardial injury, there must be a demonstrated rise and/or fall in the troponin values, in addition to ischemic symptoms, EKG changes, new regional wall motion abnormality, and/or angiographical evidence. PLEASE NOTE: REFERENCE RANGES EDITED 17 Performed By: #### L500.2500, L501.4010 #### [facility] [address] [place], [address] CHEST 1 VIEW Observed: 01/05/2018 Status: F Source: [place] (PORTABLE) 7:52 PM [facility] [place] [facility] Imaging Services [address] [place] [address] Chest 1 View (Portable) MR#: [id number] Acct: [id number] Name: CHARISSA WALLACE Rep #: [id number] : 1945 F 72 From: Lee Dunn MD PCP: Ricardo GOLD,[employer] Status: PRE ER Study: Chest 1 View (Portable) Date of Exam: 01/05/18 Exam# [id number] Ordering Dr: Hany Murphy MD STUDY: X-RAY CHEST REASON FOR EXAM: Female, 72 years old. Chest pain TECHNIQUE: Frontal view of the chest COMPARISON: 12/17/2017 FINDINGS: The lungs are clear. There are no pleural effusions. There is no pneumothorax. The heart is mildly enlarged, but stable in size. Again noted are sternotomy wires. RAD/Chest 1 View (Portable) IMPRESSION: No acute thoracic pathology. Electronically Signed: Lee Dunn, at 20:31 EST Tel , Service support , CC: Hany Murphy MD; Ino Silva MD Boiler Coverer: Signed DISCHARGE INSTRUCTION Observed: 12/29/2017 Status: F Source: [place] 8:03 AM [facility] [place] [facility] Medical Records Department [address] [facility] [place] [address] Instructions for Home/Discharge Instructions 12/29/17 0801 MR#: [id number] Acct: [id number] Name: CHARISSA WALLACE Rep #: [id number] : 1945 72 From: Gordy Pedroza MD PCP: Ino Silva MD, Chi Status: REG [facility] [place] Discharge Diet: Low fat/ Low Cholesterol Lifting Restrictions: 10 pounds and also avoid any pushing or pulling for 3 days after your test. Additional Activity Instructions:: You must have someone drive you home. Do not drive until instructed by your doctor. You must have someone stay with you all night after your test. Rest in bed or on the couch until the next morning. Limit the number of times you go up and down stairs the day of your test. Apply pressure to the puncture site if you sneeze or cough. Call your doctor if your incision/area has: Increased Pain/ Swelling, Increased Redness, Foul Smelling Discharge, Swelling at the incision site Call your doctor if you observe: Fever of 101 or Higher Additional Dressing/Incision Instructions:: Keep the dressing (bandage) on until the next morning. You may then shower, but do not take a tub bath for 5 days after your test. It is normal to have some tenderness and discomfort at the puncture site. Sometimes bruising also occurs. However, if pain, numbness, or coldness occurs below the puncture site (in your leg, toes, arms or fingers) call your doctor at once. You may have a small, marble sized knot at the puncture site. This is normal. Do not rub it. It will go away in 4-6 weeks. Bleeding can occur from the area where the puncture was done. Blood may spurt or drip from the site. If blood spurts, apply pressure right away to stop bleeding and call 911. Although rare, bleeding into the tissue (hematoma) can also occur. If this happens, a large, firm area goose egg under the skin will appear. If any of these occur, lie down as flat as you can and have someone apply firm pressure to the cath site with a gauze pad or a clean washcloth for 10-15 minutes. Call 911 or go to the Emergency Department. Allergies/Adverse Reactions: Allergies morphine Allergy (Verified 12/18/17 10:14) PT UNSURE Penicillins Allergy (Verified 12/18/17 10:14) Hives tramadol HCl [From Ultram] Allergy (Verified 12/18/17 10:14) PT UNSURE Medications to take at Discharge Aspirin E.C. [Ecotrin] 81 mg PO DAILY@0800 09/06/17 Levothyroxine [Synthroid] 75 mcg PO DAILY 09/06/17 atenolol 25 mg tablet 25 mg PO .COMPLEX 12/18/17 bupropion HCl SR 150 mg tablet,12 hr sustained-release 150 mg PO BID 12/18/17 citalopram 40 mg tablet 40 mg PO .COMPLEX 12/18/17 clopidogrel 75 mg tablet 75 mg PO .COMPLEX 12/18/17 esomeprazole magnesium 20 mg capsule,delayed release 20 mg PO .COMPLEX 12/18/17 ipratropium 20 mcg-albuterol 100 mcg/actuation mist for inhalation 1 puff INHALATION Q6H 12/18/17 lisinopril 40 mg tablet 40 mg PO DAILY tab 12/18/17 lorazepam 1 mg tablet 1 mg PO TID tab 12/18/17 lovastatin 20 mg tablet 20 mg PO DAILY 12/18/17 tiotropium 2.5 mcg-olodaterol 2.5 mcg/actuation mist for inhalation 1 puff INHALATION DAILY g 12/18/17 Primary Care Physician: Ino Silva Chi, MD [Primary Care Provider] - Test Results: Test results from this visit will be discussed in further detail at your follow-up appointment, if applicable. Please Follow Up With: dr epstein office. they will call with appt Cardiac Rehabilitation Info Cardiac Rehabilitation Program Information: Cardiac Rehabilitation is important for patients like you who are recovering from a heart problem. Cardiac rehabilitation programs are recognized as integral to the continued care of the patient with coronary heart disease. The cardiac rehabilitation program is designed to optimize a patient's physical, psychological, and social functioning. Health child care lead teacher work in cardiac rehabilitation programs and assist you with getting the treatments you need to get stronger and healthier - like exercise, healthy eating habits, and medications. Cardiac rehabilitation has been show to help people with heart problems live longer and have better life enjoyment than people who do not go to cardiac rehabilitation. Please contact the Cardiac Rehabilitation Program at [facility] at in two weeks if you have not heard from them. 12/29/17 0803 <Electronically signed by Gordy Pedroza MD> Date Gordy Pedroza MD CC: Ino Silva MD BASIC METABOLIC Collected: 12/29/2017 Status: F Source: [place] PROFILE (BMP) 3:55 AM [facility] [place] TYPE CODE TESTS RESULT OUT OF RANGE REFERENCE UNITS LAB L501.0100 74-106 mg/dL High GLU 112 Result Comment: Fasting Glucose result from 100 to 125 mg/dL suggests IMPAIRED HOMEOSTASIS per A.D.A. criteria. Please note revised GLUCOSE reference range effective 2017. LAB L501.1000 7-18 mg/dL High BUN 19 LAB L501.1100 0.55-1.02 mg/dL Normal CREAT,SERUM 0.87 Result Comment: The validity of the calculated GFR AND GFRAA in patients over 70 years has not been determined. Clinical correlation is essential. LAB L501.1110 >60 mL/min Normal EST GFR 69 Result Comment: Non- GFR Calc LAB L501.1115 >60 mL/min Normal EST GFR - AA 83 Result Comment: GFR Calc LAB L501.1255 ml/min Normal Estimated CRCL 45.40 LAB L501.1300 10-20 RATIO High BUN/CRE 21.9 LAB L501.2200 8.5-10 mg/dL Low .1 CA 7.7 LAB L501.5300 136-14 mmol/L Normal 5 NA 143 LAB L501.5600 3.5-5. mmol/L Normal 1 K 3.9 LAB L501.5900 98-107 mmol/L Normal CL 107 LAB L501.6100 21.0-3 mmol/L Normal 2.0 CO2 30.0 LAB L501.6200 5-15 Normal GAP 6 Performed By: #### L500.2500, L500.4100 #### [facility] [address] [facility] [place], [place], [id number] LIPID PROFILE Collected: 12/29/2017 Status: F Source: [place] 3:55 AM [facility] [place] TYPE CODE TESTS RESULT OUT OF RANGE REFERENCE UNITS LAB L501.4900 200 mg/dL Normal CHOL 107 Result Comment: <200 mg/dL Desirable 200-240 mg/dL Borderline >240 mg/dL High Risk LAB L501.5000 mg/dL Normal TRIG 89 Result Comment: The drugs N-Acetylcysteine and Metamizole may falsely depress this assay. Serum Triglycerides Reference Interval Normal <150 mg/dL Borderline high 150 - 199 mg/dL High 200 - 499 mg/dL Very High > or = 500 mg/dL LAB L501.6400 mg/dL Normal HDL 41 Result Comment: The drugs N-Acetylcysteine and Metamizole may falsely depress this assay. Reference Range HDL <40 mg/dL Low HDL Cholesterol HDL >or= 60 mg/dL High HDL Cholesterol LAB L501.6500 0-130 mg/dL Normal LDL 48 LAB L501.6600 5-40 mg/dL Normal VLDL 18 Performed By: #### L500.2500, L500.4100 #### [facility] [address] [facility] [place], [place], [id number] CBC-COMPLETE BLOOD CNT Collected: 12/29/2017 Status: F Source: [place] NO DIFF 3:55 AM [facility] [place] TYPE CODE TESTS RESULT OUT OF RANGE REFERENCE UNITS LAB L100.1000 4.4-11.0 K/mm3 Normal WBC 10.0 LAB L100.1200 4.2-5.4 M/mm3 Low RBC 3.83 LAB L100.1300 12.0-15.0 g/dl Low HGB 10.4 LAB L100.1400 37-47 % Low HCT 33.0 LAB L100.1500 81-99 fL Normal MCV 86.2 LAB L100.1600 27.0-32.0 pg Normal MCH 27.2 LAB L100.1700 32-36 g/gl Low MCHC 31.5 LAB L100.1810 11.6-14.6 % High RDW CV 17.7 LAB L100.1820 35.1-43.9 fl High RDW SD 54.9 LAB L100.1900 150-450 K/mm3 Normal PLT 193 LAB L100.2000 6.2-12.0 fl Normal MPV 11.5 Performed By: #### L100.0500 #### [facility] [address] [place], [address] ACT ACTIVATED CLOTTING Collected: 12/28/2017 Status: F Source: [place] TIME 12:26 PM [facility] [place] TYPE CODE TESTS RESULT OUT OF RANGE REFERENCE UNITS LAB L9100.0100 74-137 sec High ACTk CLOT 158 TIME Performed By: #### L9100.0100 #### [facility] Point of Care [address] [place] [address] ACT ACTIVATED CLOTTING Collected: 12/28/2017 Status: F Source: [place] TIME 10:01 AM [facility] [place] TYPE CODE TESTS RESULT OUT OF RANGE REFERENCE UNITS LAB L9100.0100 74-137 sec High ACTk CLOT 208 TIME Performed By: #### L9100.0100 #### [facility] Point of Care [address] [place] [address] CARDIOLOGY VISIT Observed: 12/18/2017 Status: F Source: [place] REPORT 11:44 AM [facility] [place] [facility] [address] [place] [address] OFFICE VISIT Date of Service: 12/18/17 MR#: [id number] Acct: [id number] Name: QUIRINO WALLACEGrace Edwards Rep #: [id number] : 1945 Provider: Gordy Pedroza MD Age/Sex: 72/F [facility] Status: Signed HPI HPI Chief Complaint: Initial visit Details: CHARISSA WALLACE, is a 72 F who presents to the office today for an initial evaluation. She is a lady with a history of coronary artery disease status post carotid bypass surgery 10 years ago at the [facility]. She has since had numerous angioplasties. She did present to the hospital earlier this year in April with chest discomfort which she described as sharp sometimes associated with shortness of breath and nausea as well as radiation to the left shoulder. Her EKG demonstrated nonspecific changes she underwent a pharmacologic myocardial perfusion stress test we did not demonstrate any evidence of ischemia. Medical therapy was recommended and she was discharged. Since then she has had occasional episodes of the above. She did present to the office yesterday an EKG was done which demonstrated T wave inversions in lead I and aVL and an opinion was sought from our office and a consult sought. She has had no dizziness or diaphoresis no near syncope or syncope. She has been compliant with her medications. Her chest pain does not necessarily appear to be exertional related but sometimes on movement of the arm she just gets this discomfort. She unfortunately continues to use tobacco products. Her physical exam demonstrates clear lung cortes regular rate and rhythm no pedal edema her electric cardiogram was reviewed. Intake Vital Signs12/18/17 Height 5 ft 1 in 12/18/17 Weight: 153 lb 12/18/17 Body Mass Index (BMI) 28.9 12/18/17 Blood Pressure 140/70 H 12/18/17 Blood Pressure Location Lt brachial Intake Visit Reasons: PCP ref'd Measurement Specialist Required: No Accompanied by: Daughter Is patient in pain?: No Allergies morphine Allergy (Verified 12/18/17 10:14) PT UNSURE Penicillins Allergy (Verified 12/18/17 10:14) Hives tramadol HCl [From Ultram] Allergy (Verified 12/18/17 10:14) PT UNSURE Medications Aspirin E.C. [Ecotrin] 81 mg PO DAILY@0800 09/06/17 [History Confirmed 12/18/17] Levothyroxine [Synthroid] 75 mcg PO DAILY 09/06/17 [History Confirmed 12/18/17] atenolol 25 mg tablet 25 mg PO .COMPLEX 12/18/17 [History Confirmed 12/18/17] bupropion HCl SR 150 mg tablet,12 hr sustained-release 150 mg PO BID 12/18/17 [History Confirmed 12/18/17] citalopram 40 mg tablet 40 mg PO .COMPLEX 12/18/17 [History Confirmed 12/18/17] clopidogrel 75 mg tablet 75 mg PO .COMPLEX 12/18/17 [History Confirmed 12/18/17] esomeprazole magnesium 20 mg capsule,delayed release 20 mg PO .COMPLEX 12/18/17 [History Confirmed 12/18/17] ipratropium 20 mcg-albuterol 100 mcg/actuation mist for inhalation 1 puff INHALATION Q6H 12/18/17 [History Confirmed 12/18/17] lisinopril 40 mg tablet 40 mg PO DAILY tab 12/18/17 [History Confirmed 12/18/17] lorazepam 1 mg tablet 1 mg PO TID tab 12/18/17 [History Confirmed 12/18/17] lovastatin 20 mg tablet 20 mg PO DAILY 12/18/17 [History Confirmed 12/18/17] tiotropium 2.5 mcg-olodaterol 2.5 mcg/actuation mist for inhalation 1 puff INHALATION DAILY g 12/18/17 [History Confirmed 12/18/17] [facility] Medical History Non-rheumatic tricuspid valve insufficiency (Chronic) Secondary pulmonary arterial hypertension (Chronic) Nicotine dependence (Chronic) Hyperlipidemia (Chronic) Atherosclerosis of coronary artery of [place] heart with angina pectoris (Chronic) Essential (primary) hypertension (Chronic) TIA (transient ischemic attack) (Chronic) Benzodiazepine dependence (Chronic) Anxiety and depression (Chronic) Back pain (Chronic) COPD (chronic obstructive pulmonary disease) (Chronic) Hypothyroidism (Chronic) Obstructive sleep apnea (Chronic) Surgical History History of coronary artery stent placement (Resolved) History of coronary artery bypass graft x 3 (Resolved) Social History Smoking Status: Current every day smoker ROS Const Const: Positive for other (Referred by Dr. Silva: abn ekg, onset CP last 2 months); negative for fatigue, weakness, difficulty sleeping, frequent falls, excessive sweating or headache(s) Eyes Eyes: Negative for loss of peripheral vision, transient loss of vision, blurry vision, tunnel vision or double vision ENT ENT: Positive for balance problems (Walks with a cane); negative for headache(s), dizziness or Nosebleed/epistaxis Cardio Chest Pain: Yes (with activity, or if lifts arms above head, or lying down at night) Frequency: daily Character: sharp (lasts a few seconds at a time but very sharp) Onset: exercise, positional Location: left chest, other (Feels up near left clavicle) Duration: brief Exacerbation: exercise, other (living arms above head), positional Relieving: rest Recurrence: other (Doesn't always come back when activity resumes) Palpitations: No Edema: None Muscle aches with walking: None Resp Respiratory: Positive for SOB with activity, SOB orthopnea\SOB lying down, Cough (productive white sputum) and crackles (scattered crackles throughout on inspiration, just used aerosol tx); negative for SOB at rest or paroxysmal nocturnal dyspnea GI GI: Negative nausea, heartburn, black,tarry stools or vomiting : Negative for hematuria Musc Musc: Positive for balance problems (Walks with a cane); negative for muscle aches/ myalgia, muscle weakness or joint pain Skin Skin: Negative non-healing lesions, unusual bruising or rash Neuro Neuro: Negative for weakness, frequent falls, headache(s), blurry vision, double vision, dizziness, lightheadedness, orthostatic symptoms, near syncope, syncope or lack of coordination [place] Hematologic/Lymphatic: Negative for easy bruising or easy bleeding Endo Endo: Negative for fatigue, excessive sweating or increased thirst/drinking Psych Psych: Negative for anxiety or depression Allergy Allergy/Immunology: Negative for hives, Negative for rash Cardiology Exam Const Appearance: cooperative, healthy appearing, well developed, well groomed and no acute distress Nutritional Appearance: well nourished and average body habitus Orientation: alert, awake and oriented x3 Head Head: normal to inspection, normocephalic and atraumatic Ears: hearing grossly normal bilaterally and external ears normal Nose: external nose normal, nasal mucous membranes and turbinates normal, nares normal, septum normal, no nasal discharge Face and Sinus: face symmetric Mouth: oral mucosae normal, tongue normal, oropharynx normal and moist mucous membranes Teeth and gingiva: dentition normal Throat: posterior oropharynx normal, tonsils normal and uvula midline Eyes General: appearance normal, both eyes and all related structures Eyelids: eyelids normal Conjunctivae: conjunctivae normal Pupils: PERRL, normal by confrontation and accommodation normal EOM: EOM intact bilaterally Neck Neck: normal visual inspection, trachea midline and no JVD JVD: +5 Carotids: normal carotid upstroke and bounding pulses Chest Chest inspection: normal inspection of the chest, symmetric chest movement and normal respiratory effort Auscultation: Bilateral: Clear to Auscultation Cardio Palpation: normal PMI Rate: regular rate Rhythm: regular rhythm Heart sounds: S1 normal, S2 normal and normal, physiologic split S2; negative rub, gallop or murmur GI GI: normal to inspection, soft, no hepatosplenomegaly and bowel sounds present Neuro General: alert, awake, oriented x3, no focal sensory deficit, gait normal and moves all extremities Skin Skin: no rashes or lesions noted Extremities Pulses: Normal: Right Femoral Pulse, Left Femoral Pulse, Right Dorsalis Pedis Pulse, Left Dorsalis Pedis Pulse, Right Posterior Tibial Pulse, Left Posterior Tibial Pulse, Right Radial Pulse, Left Radial Pulse Lower Extremity Edema: None: Bilateral Musculoskel Musculoskeletal: No joint tenderness Psych Psychological: normal affect Assessment AND Plan 1. Chest pain R07.9 Plan She does have a history of chest pain. The etiology of the above is not entirely clear her last stress test did not demonstrate any evidence of ischemia. She unfortunately does have habits which may go along with promoting coronary artery disease. I did discuss with him the risk benefits alternatives and at this time we may lean towards repeating her cardiac catheterization. Depending on the findings further recommendations will be made. Orders Orders: 2. Essential (primary) hypertension I10 Plan She does have a history of hypertension which appears to be well controlled on the current medical therapy. She will remain on the lisinopril as well as the atenolol and aspirin. No changes will be made. She may have the EKG changes which may be caused by the hypertension. 3. History of coronary artery bypass graft x 3 Z95.1 Plan She is status post carotid bypass surgery we will attempt to obtain the results of her last bypass surgery as well as her angioplasty prior to performing the above test. Thank you for allowing me to participate in her care. Plan Detail Other Medications Discontinued: Follow Up 6 Months ([facility]) Coding Level of Care Code Off vis,new,level 4 Diagnoses Chest pain R07.9 Essential (primary) hypertension I10 History of coronary artery bypass graft x 3 Z95.1 Coding Level of Care Code Off vis,new,level 4 Diagnoses Chest pain R07.9 Essential (primary) hypertension I10 History of coronary artery bypass graft x 3 Z95.1 12/18/17 1144 <Electronically signed by Gordy Pedroza MD> Date Gordy Pedroza MD Cosigner Signature: Date (if applicable) CC: Ino Silva MD CHEST PA AND LATERAL Observed: 12/17/2017 Status: F Source: [place] 4:48 PM [facility] [place] [facility] Imaging Services [address] [place] [address] Chest PA and Lateral MR#: [id number] Acct: [id number] Name: CHARISSA WALLACE Rep #: [id number] : 1945 F 72 From: Yun Cardona MD PCP: Ino Silva MD, Chi Status: REG CLI Study: Chest PA and Lateral Date of Exam: 12/17/17 Exam# [id number] Ordering Dr: Ino Silva MD STUDY: X-RAY CHEST REASON FOR EXAM: Female, 72 years old. Chest and abdominal pain. TECHNIQUE: Frontal and lateral views of the chest. COMPARISON: July 26, 2017 FINDINGS: The lungs are mildly hyperexpanded with a diffuse interstitial pattern unchanged. There is no demonstrated pleural abnormality. There is borderline cardiomegaly with sternotomy wires unchanged. Normal mediastinum and beverly. Normal visualized pulmonary arteries. Normal visualized aortic arch and descending thoracic aorta. Normal visualized thoracic spine. Normal visualized ribs, clavicles, and shoulders. There is no demonstrated abnormality of the visualized soft tissue structures of the upper abdomen. RAD/Chest PA and Lateral IMPRESSION: Stable appearance of the chest with no new or acute finding. Electronically Signed: Yun Cardona MD at 17:12 EST , Service support , CC: Ino Silva MD Boiler Coverer: Signed ABDOMEN SINGLE VIEW Observed: 12/17/2017 Status: F Source: [place] 4:48 PM [facility] [place] [facility] Imaging Services [address] [place] [address] Abdomen Single View MR#: [id number] Acct: [id number] Name: CHARISSA WALLACE Rep #: [id number] : 1945 F 72 From: Bessie Singh MD PCP: Ino Silva MD, Chi Status: REG CLI Study: Abdomen Single View Date of Exam: 12/17/17 Exam# [id number] Ordering Dr: Ino Silva MD STUDY: X-RAY - ABDOMEN/PELVIS REASON FOR EXAM: Female, 72 years old. Chest and abdominal pain. TECHNIQUE: Supine view. COMPARISON: CT abdomen 03/02/2013. FINDINGS: Normal visualized lung bases. There is a nonobstructive bowel gas pattern. Low to moderate stool burden. There is no organomegaly or abnormal calcification. Cholecystectomy clips are noted in the right upper quadrant. Normal visualized osseous structures. RAD/Abdomen Single View IMPRESSION: Normal x-ray examination of the abdomen and pelvis. Electronically Signed: Bessie Singh MD at 17:45 EST Tel , Service support , CC: Ino Silva MD Boiler Coverer: Signed BNP,B-TYPE NATRIURETIC Collected: 12/17/2017 Status: F Source: [place] 4:28 PM [facility] [place] TYPE CODE TESTS RESULT OUT OF RANGE REFERENCE UNITS LAB L503.6620 0-100 pg/mL High B-TYPE 118.1 JIAN PEP Performed By: #### L503.6620 #### [facility] [address] [place], [address] D-DIMER QUANTITATIVE Collected: 12/17/2017 Status: F Source: [place] (DVT/PE) 4:28 PM [facility] [place] TYPE CODE TESTS RESULT OUT OF RANGE REFERENCE UNITS LAB L300.8000 0.27-0.49 FEU/ug/m High alert D-DIMER 0.64 QUANT Result Comment: D-Dimer ELEVATED (>0.49): Additional studies and clinical assessments are indicated to conclude diagnosis of: Deep Vein Thrombosis (DVT) or Pulmonary Embolism (PE) CRITICAL VALUE VERIFIED. CALLED TO DR SILVA 12/17/[address] [place] [address]. RESULTS READ BACK BY DR SILVA . Performed By: #### L300.8000 #### [facility] [address] [place], [address] COMPREHENSIVE METABOLIC Collected: 12/17/2017 Status: F Source: [place] 4:28 PM [facility] [place] Order Comment: 'TROP' Serial specimen #1, #2, #3, or #4: 1 TYPE CODE TESTS RESULT OUT OF RANGE REFERENCE UNITS LAB L501.0100 74-106 mg/dL High GLU 109 Result Comment: Fasting Glucose result from 100 to 125 mg/dL suggests IMPAIRED HOMEOSTASIS per A.D.A. criteria. Please note revised GLUCOSE reference range effective 2017. LAB L501.1000 7-18 mg/dL Normal BUN 18 LAB L501.1100 0.55-1.02 mg/dL Normal CREAT,SERUM 0.94 Result Comment: The validity of the calculated GFR AND GFRAA in patients over 70 years has not been determined. Clinical correlation is essential. LAB L501.1110 >60 mL/min Normal EST GFR 63 Result Comment: Non- GFR Calc LAB L501.1115 >60 mL/min Normal EST GFR - AA 76 Result Comment: GFR Calc LAB L501.1300 10-20 RATIO Normal BUN/CRE 19.2 LAB L501.1500 6.4-8.2 g/dL T Normal PROT 7.3 LAB L501.1800 3.2-5.0 g/dL Normal ALB 3.6 LAB L501.1950 2.2-4.2 g/dL Normal GLOB 3.7 LAB L501.2000 0.9-2.4 RATIO Normal A/G 1.0 LAB L501.2200 8.5-10.1 mg/dL CA Normal 8.6 LAB L501.4100 15-37 U/L Normal AST 16 LAB L501.4305 45-117 U/L Normal ALK P 116 LAB L501.4405 13-56 U/L Normal ALT 25 LAB L501.4600 0.20-1.00 mg/dL T Normal BILI 0.60 LAB L501.5300 136-145 mmol/L NA Normal 140 LAB L501.5600 3.5-5.1 mmol/L K Normal 4.0 LAB L501.5900 98-107 mmol/L CL Normal 101 LAB L501.6100 21.0-32.0 mmol/L Normal CO2 32.0 LAB L501.6200 5-15 Normal GAP 7 Performed By: #### L500.4050, L501.3620, L501.4010 #### [facility] [address] [place], [place], [id number] CPK TOTAL, CREATINE Collected: 12/17/2017 Status: F Source: [place] K[place] 4:28 PM [facility] [place] Order Comment: 'TROP' Serial specimen #1, #2, #3, or #4: 1 TYPE CODE TESTS RESULT OUT OF RANGE REFERENCE UNITS LAB L501.3620 26-192 U/L Normal CPK TOTAL 65 Performed By: #### L500.4050, L501.3620, L501.4010 #### [facility] [address] [place], [address] TROPONIN-I Collected: 12/17/2017 Status: F Source: [place] 4:28 PM [facility] [place] Order Comment: 'TROP' Serial specimen #1, #2, #3, or #4: 1 TYPE CODE TESTS RESULT OUT OF RANGE REFERENCE UNITS LAB L501.4010 <0.045 ng/mL Normal < 0.015 TROPONIN-I Result Comment: TROPONIN-I EXPECTED VALUES <0.045 Negative 0.045 - 0.590 Consistent with Cardiac Damage > OR = 0.600 Critical Value Not every elevated troponin is indicative of OR. These values should be used with clinical judgement in examining the patient's clinical picture for diagnosis. To establish a diagnosis of OR versus myocardial injury, there must be a demonstrated rise and/or fall in the troponin values, in addition to ischemic symptoms, EKG changes, new regional wall motion abnormality, and/or angiographical evidence. PLEASE NOTE: REFERENCE RANGES EDITED 17 Performed By: #### L500.4050, L501.3620, L501.4010 #### [facility] [address] [place], [address] CBC W/DIFF, AUTOMATED Collected: 12/17/2017 Status: F Source: [place] 4:28 PM [facility] [place] TYPE CODE TESTS RESULT OUT OF RANGE REFERENCE UNITS LAB L100.1000 4.4-11.0 K/mm3 High WBC 12.5 LAB L100.1200 4.2-5.4 M/mm3 Normal RBC 4.82 LAB L100.1300 12.0-15.0 g/dl Normal HGB 12.6 LAB L100.1400 37-47 % Normal HCT 40.6 LAB L100.1500 81-99 fL Normal MCV 84.2 LAB L100.1600 27.0-32.0 pg Low MCH 26.1 LAB L100.1700 32-36 g/gl Low MCHC 31.0 LAB L100.1810 11.6-14.6 % High RDW CV 16.8 LAB L100.1820 35.1-43.9 fl High RDW SD 51.1 LAB L100.1900 150-450 K/mm3 Normal PLT 292 LAB L100.2000 6.2-12.0 fl Normal MPV 11.1 LAB L100.2100 47-70 % Normal NEUT% 66.7 LAB L100.2200 19-41 % Normal LY% 26.5 LAB L100.2300 0-10 % Normal MONO% 4.6 LAB L100.2400 0-5 % Normal EO% 1.8 LAB L100.2500 0-1 % Normal BASO% 0.2 LAB L100.2550 0.0-0.9 % Normal IM GRAN % 0.200 Result Comment: IG% - Immature Granulocytes (promyelocytes, myelocytes and metamyelocytes) > 1% indicates that a LEFT SHIFT is Present. LAB L100.2620 2.0-7.7 X10 3/uL High Absolute Neut 8.3 LAB L100.2720 0.83-4.51 X10 3/ul Normal Absolute Lymph 3.32 LAB L100.4700 Normal REACTIVE LYMPH 1+ LAB L100.5500 ADEQ Normal PLT EST ADEQUATE LAB L100.7000 NORM C AND C NORMAL Normal RED CELL MORPH NORM C+C Performed By: #### L100.0100 #### [facility] [address], [place], [id number] Observed: 12/17/2017 Status: F Source: [place] CULTURE, URINE 4:28 PM [facility] [place] Urine Culture ORGANISM 1: Mixed Gram Pos AND Gram Neg Org Hope Count 11,000-25,000 MIX CULTURE Mixed contaminants. Submit a new specimen if indicated. Performed By: #### M100.0650 #### [facility] [address], [place], [address] MYOGLOBIN, SERUM Collected: 12/17/2017 Status: F Source: [place] 4:28 PM [facility] [place] TYPE CODE TESTS RESULT OUT OF RANGE REFERENCE UNITS LAB L3600.5100 25-58 ng/mL Low < 21 Myoglobin, Ser Result Comment: Performed at: - [facility] [id number] Glue Maker: Americo Marvin PhD, Phone: [phone] Performed By: #### L3600.5100 #### [facility] (refer to report for specific site) refer to report for address and phone number CBC W/DIFF, AUTOMATED Collected: 10/21/2017 Status: F Source: [place] 2:19 PM [facility] [place] TYPE CODE TESTS RESULT OUT OF RANGE REFERENCE UNITS LAB L100.1000 4.4-11.0 K/mm3 Normal WBC 9.0 LAB L100.1200 4.2-5.4 M/mm3 Normal RBC 4.58 LAB L100.1300 12.0-15.0 g/dl Normal HGB 12.1 LAB L100.1400 37-47 % Normal HCT 39.1 LAB L100.1500 81-99 fL Normal MCV 85.4 LAB L100.1600 27.0-32.0 pg Low MCH 26.4 LAB L100.1700 32-36 g/gl Low MCHC 30.9 LAB L100.1810 11.6-14.6 % Normal RDW CV 14.3 LAB L100.1820 35.1-43.9 fl Normal RDW SD 43.7 LAB L100.1900 150-450 K/mm3 Normal PLT 295 LAB L100.2000 6.2-12.0 fl Normal MPV 11.5 LAB L100.2100 47-70 % Normal NEUT% 56.4 LAB L100.2200 19-41 % Normal LY% 33.7 LAB L100.2300 0-10 % Normal MONO% 5.9 LAB L100.2400 0-5 % Normal EO% 3.6 LAB L100.2500 0-1 % Normal BASO% 0.3 LAB L100.2550 0.0-0.9 % Normal IM GRAN % 0.100 Result Comment: IG% - Immature Granulocytes (promyelocytes, myelocytes and metamyelocytes) > 1% indicates that a LEFT SHIFT is Present. LAB L100.2620 2.0-7.7 X10 3/uL Normal Absolute Neut 5.1 LAB L100.2720 0.83-4.51 X10 3/ul Normal Absolute Lymph 3.02 Performed By: #### L100.0100 #### [facility] [address] [facility]. [place], [place], [address] COMPREHENSIVE METABOLIC Collected: 10/21/2017 Status: F Source: [facility] 2:19 PM [facility] [place] TYPE CODE TESTS RESULT OUT OF RANGE REFERENCE UNITS LAB L501.0100 74-106 mg/dL Normal GLU 92 Result Comment: Please note revised GLUCOSE reference range effective 2017. LAB L501.1000 7-18 mg/dL Normal BUN 12 LAB L501.1100 0.55-1.02 mg/dL Normal CREAT,SERUM 0.88 Result Comment: The validity of the calculated GFR AND GFRAA in patients over 70 years has not been determined. Clinical correlation is essential. LAB L501.1110 >60 mL/min Normal EST GFR 68 Result Comment: Non- GFR Calc LAB L501.1115 >60 mL/min Normal EST GFR - AA 82 Result Comment: GFR Calc LAB L501.1300 10-20 RATIO Normal BUN/CRE 13.7 LAB L501.1500 6.4-8.2 g/dL T Normal PROT 7.2 LAB L501.1800 3.2-5.0 g/dL Normal ALB 3.4 LAB L501.1950 2.2-4.2 g/dL Normal GLOB 3.8 LAB L501.2000 0.9-2.4 RATIO Normal A/G 0.9 LAB L501.2200 8.5-10.1 mg/dL CA Normal 8.6 LAB L501.4100 15-37 U/L Normal AST 26 LAB L501.4305 45-117 U/L High ALK P 213 LAB L501.4405 13-56 U/L Normal ALT 32 LAB L501.4600 0.20-1.00 mg/dL T Normal BILI 0.60 LAB L501.5300 136-145 mmol/L NA Normal 140 LAB L501.5600 3.5-5.1 mmol/L K Normal 4.3 LAB L501.5900 98-107 mmol/L CL Normal 103 LAB L501.6100 21.0-32.0 mmol/L Normal CO2 28.0 LAB L501.6200 5-15 Normal GAP 9 Performed By: #### L500.4050, L501.9520 #### [facility] [address] [facility] [place], [place], [id number] THYROID STIM HORMONE Collected: 10/21/2017 Status: F Source: [place] (TSH) 2:19 PM [facility] [place] TYPE CODE TESTS RESULT OUT OF RANGE REFERENCE UNITS LAB L501.9520 0.358-3.74 uIU/mL Normal TSH 0.56 Performed By: #### L500.4050, L501.9520 #### [facility] [address] [place], [place], [id number] VITAMIN D,25 HYDROXY Collected: 10/21/2017 Status: F Source: [place] 2:19 PM [facility] [place] TYPE CODE TESTS RESULT OUT OF RANGE REFERENCE UNITS LAB L506.1000 29.95-100.01 ng/mL Normal Vitamin D 30.1 25-OH Result Comment: Vitamin D 25(OH) Status Range Deficiency <20 ng/mL (50nmol/L) Insuffciency 20 - 30 ng/mL (50 - 75 nmol/L) Sufficiency 30 - 100 ng/mL (75 - 250 nmol/L) Toxicity >100 ng/mL (>250 nmol/L) Performed By: #### L506.1000 #### [facility] [address] [facility] [place], [place], [address] LIPID PROFILE Collected: 09/14/2017 Status: F Source: [place] 2:27 PM [facility] [place] TYPE CODE TESTS RESULT OUT OF RANGE REFERENCE UNITS LAB L501.4900 200 mg/dL Normal CHOL 123 Result Comment: <200 mg/dL Desirable 200-240 mg/dL Borderline >240 mg/dL High Risk LAB L501.5000 mg/dL Normal TRIG 113 Result Comment: The drugs N-Acetylcysteine and Metamizole may falsely depress this assay. Serum Triglycerides Reference Interval Normal <150 mg/dL Borderline high 150 - 199 mg/dL High 200 - 499 mg/dL Very High > or = 500 mg/dL LAB L501.6400 mg/dL Low HDL 31 Result Comment: The drugs N-Acetylcysteine and Metamizole may falsely depress this assay. Reference Range HDL <40 mg/dL Low HDL Cholesterol HDL >or= 60 mg/dL High HDL Cholesterol LAB L501.6500 0-130 mg/dL Normal LDL 69 LAB L501.6600 5-40 mg/dL Normal VLDL 23 Performed By: #### L500.4100 #### [facility] [address] [facility] [place] [place], [address] CBC W/DIFF, AUTOMATED Collected: 09/14/2017 Status: C Source: [place] 2:27 PM [facility] [place] TYPE CODE TESTS RESULT OUT OF RANGE REFERENCE UNITS LAB L100.1000 4.4-11.0 K/mm3 High WBC 13.3 LAB L100.1200 4.2-5.4 M/mm3 Normal RBC 4.20 LAB L100.1300 12.0-15.0 g/dl Low HGB 11.4 LAB L100.1400 37-47 % Normal HCT 37.6 LAB L100.1500 81-99 fL Normal MCV 89.5 LAB L100.1600 27.0-32.0 pg Normal MCH 27.1 LAB L100.1700 32-36 g/gl Low MCHC 30.3 LAB L100.1810 11.6-14.6 % Normal RDW CV 14.5 LAB L100.1820 35.1-43.9 fl High RDW SD 47.5 LAB L100.1900 150-450 K/mm3 Normal PLT 388 LAB L100.2000 6.2-12.0 fl Normal MPV 11.1 LAB L100.3100 MANUAL DIFF Normal CELLS COUNTED 100 LAB L100.3200 47-70 % 61 Normal SEGS LAB L100.3300 0-5 % 1 Normal BAND LAB L100.3800 19-41 % 19 Normal LYMPH LAB L100.3900 0-10 % 4 Normal MONOCYTE LAB L100.4000 0-5 % High 15 EOS LAB L100.2620 2.0-7.7 X10 3/uL High Absolute Neut 8.2 LAB L100.2720 0.83-4.51 X10 3/ul Normal Absolute Lymph 2.53 LAB L100.9900 Normal PATH REV Reviewed Result Comment: Leukocytosis. Clinical correlation necessary. Mikie Vasquez M.D. 09/15/17 AMENDED REPORT 09/15/17 1242 PATH REV previously reported as: June dolores Performed By: #### L100.0100 #### [facility] [address] [facility] [place], [address] EMERGENCY DEPARTMENT Observed: 09/11/2017 Status: F Source: [place] SUMMARY 3:34 PM [facility] [place] [facility] Medical Records Department [address] [place] [address] Emergency Department Summary 09/11/17 1307 MR#: [id number] Acct: [id number] Name: CHARISSA WALLACE [place] Rep #: [id number] : 1945 72 From: Marquis Quick MD PCP: Ino Silva MD, Chi Status: DEP ER - ER Visit Summary Date of Service: 09/11/17 Chief Complaint: [] Diffuse hives for a few days History of Present Illness: The patient is a 72 F [] history of heart disease CABG, cardiac stents, on Plavix, bleeding ulcer in the esophagus anemia, reports that she has been worried about her general medical condition, which has been very stable, she has had no bleeding no chest pain abdominal pain no paresthesias, and she reports she is developed hives diffusely over whole body she has had in the past when she worries about things she is on no new medications no other exposures eating and drinking well and again her cardiovascular and general health status has been very stable Physical Examination: [] She is in no distress she does have diffuse hives over her skin her HEENT exam is unremarkable oral cavity is negative the lungs are clear the heart tones are unremarkable abdomen soft nontender upper lower extremities unremarkable the skin shows a few scattered hives there is some plaques of hives to her back there is no petechia purpura skin breakdown no other lesions neurologically awake and alert she usually walks with a cane Test Results: [] Emergency Department Course and Treatment: [] Long conversation with her she says she wants a shot to make the hives go away we did discuss the potential use of Kenalog however given some type of an upper GI bleed that she says was from her esophagus I explained her that might complicate her GI history so we will start her on Atarax Aveeno bath and she will follow with her family doctor she agrees Treatment Plan: [] Disposition: [] Home stable Impression: [] Diffuse hives causing itching history of GI bleed CABG cardiac stents This note was generated with Tamion dictation software. It may contain incorrect words, spelling, and punctuation that were not noted in review of the chart prior to signing ED Disposition - Plan for ED Patient: Chief Complaint: Itching Referrals: Ino Silva Chi, MD [Primary Care Provider] - What to do if you have Problems For any increased pain, shortness of breath, bleeding, nausea or vomiting, chest pain, or any unexpected problems, contact your Primary Care Provider. Call [facility] ([phone]) or report to the closest Emergency Room. Call 911 if necessary. 09/11/17 1534 <Electronically signed by Marquis Quick MD> Date Marquis Quick MD Cosigner Signature (If Indicated): Date CC: Ino Silva MD DISCHARGE INSTRUCTION Observed: 09/11/2017 Status: F Source: [place] 1:12 PM [facility] [place] [facility] Medical Records Department [address] [place] [address] [place] [address] Discharge Instruction 09/11/17 1310 MR#: [id number] Acct: [id number] Name: CHARISSA WALLACE Rep #: [id number] : 1945 72 From: Marquis Quick MD PCP: Ino Silva MD, Chi Status: REG ER ED Disposition - Plan for ED Patient: Chief Complaint: Itching Instructions: ED Allergic Reaction General Other Prescriptions: hydrOXYzine tablet [Atarax tablet] 10 mg PO TID PRN 7 Days tab Colloidal Oatmeal [Aveeno Bath] 1 ea TP BID 7 Days packet Referrals: Ino Silva Chi, MD [Primary Care Provider] - What to do if you have Problems For any increased pain, shortness of breath, bleeding, nausea or vomiting, chest pain, or any unexpected problems, contact your Primary Care Provider. Call [facility] ([phone]) or report to the closest Emergency Room. Call 911 if necessary. 09/11/17 1312 <Electronically signed by Marquis Quick MD> Date Marquis Quick MD Cosigner Signature (If Indicated): Date CC: Ino Silva MD HEPATITIS PANEL ACUTE Collected: 09/06/2017 Status: F Source: [facility] [place] 12:47 PM [facility] [place] TYPE CODE TESTS RESULT OUT OF RANGE REFERENCE UNITS LAB L3100.0200 Negative Normal HEP A Negative IgM 6734 LAB L3100.0400 Negative Normal HB Negative SURF AG LAB L3100.0440 Negative Normal HB Negative CORE [id number] LAB L3100.0650 0.0-0.9 s/co ratio Normal HEP C <0.1 AB Result Comment: Negative: < 0.8 Indeterminate: 0.8 - 0.9 Positive: > 0.9 The CDC recommends that a positive HCV antibody result be followed up with a HCV Nucleic Acid Amplification test (507696). Performed at: [facility] [id number] Glue Maker: Americo Marvin PhD, Phone: [phone] Performed By: #### L3000.0375 #### [facility] (refer to report for specific site) refer to report for address and phone number EMERGENCY DEPARTMENT Observed: 09/06/2017 Status: F Source: [facility] [place] [place] SUMMARY 12:37 PM [facility] [place] [facility] Medical Records Department [address] [place] [address] Emergency Department Summary 09/06/17 1231 MR#: [id number] Acct: [id number] Name: CHARISSA WALLACE Rep #: [id number] : 1945 72 From: Kingsley Bowers MD PCP: Ino Silva MD, Chi Status: REG ER - ER Visit Summary Date of Service: 09/06/17 Chief Complaint: Dehydration weakness History of Present Illness: The patient is a 72 F with decreased p.o. intake for the past 2 months, some nausea associated with this. She has no abdominal pain. About 2 months ago she had an upper GI bleed which was treated in [place]. She did receive 2 units of blood. Currently she has no abdominal pain. She has nausea but no vomiting she fused feels diffusely weak. No rash. No chest pain or shortness of breath. Physical Examination: Not appear in acute distress. Slightly dry mucous membranes, no obvious facial deformity No C-spine tenderness supple neck. Regular rate and rhythm without any obvious murmurs Clear lungs bilaterally speaking in full sentences without any obvious respiratory distress Abdomen soft and nontender no guarding or rebound Moves all extremities without any difficulty or pain. Skin does not show any obvious rashes or lesions, no trauma. Alert oriented 3 with no gross focal deficit Emergency Department Course and Treatment: Patient has an unremarkable workup, hemoglobin is normal chemistries are normal patient has a bilirubin of 2.0 and the transaminases are also elevated. Again she does not have a gallbladder or any abdominal pain I doubt it is an obstructive process, at least not from a stone. She appears well and nontoxic she will need a workup for her liver, a hepatitis panel was sent and patient's PCP will follow up. I stressed the importance of following up. If she sees her eyes or tongue or skin get yellow, if she feels more week if she has nausea or vomiting she needs to return to the emergency department and she understands this. Did significantly improve after IV. Impression: Dehydration Hepatitis This note was generated with Tamion dictation software. It may contain incorrect words, spelling, and punctuation that were not noted in review of the chart prior to signing ED Disposition - Plan for ED Patient: Disposition: Home or Assisted Living Chief Complaint: Weakness Instructions: ED Weakness [facility] Referrals: Ino Silva Chi, MD [Primary Care Provider] - 2 Days Additional Instructions: Her found to have hepatitis in the emergency department. Follow-up with Dr. Liriano for further workup. We did have a hepatitis panel sent but will not be back for another 2 days. If you have change in your skin color, eye color or significant nausea vomiting return to the emergency department. What to do if you have Problems For any increased pain, shortness of breath, bleeding, nausea or vomiting, chest pain, or any unexpected problems, contact your Primary Care Provider. Call [facility] ([phone]) or report to the closest Emergency Room. Call 911 if necessary. 09/06/17 1237 <Electronically signed by Kingsley Bowers MD> Date Kingsley Bowers MD Cosigner Signature (If Indicated): Date CC: Ino Silva MD CBC-COMPLETE BLOOD CNT Collected: 09/06/2017 Status: F Source: [facility] NO DIFF 11:47 AM [facility] [place] TYPE CODE TESTS RESULT OUT OF RANGE REFERENCE UNITS LAB L100.1000 4.4-11.0 K/mm3 Normal WBC 10.2 LAB L100.1200 4.2-5.4 M/mm3 Low RBC 4.03 LAB L100.1300 12.0-15.0 g/dl Low HGB 11.1 LAB L100.1400 37-47 % Low HCT 36.8 LAB L100.1500 81-99 fL Normal MCV 91.3 LAB L100.1600 27.0-32.0 pg Normal MCH 27.5 LAB L100.1700 32-36 g/gl Low MCHC 30.2 LAB L100.1810 11.6-14.6 % Normal RDW CV 14.2 LAB L100.1820 35.1-43.9 fl High RDW SD 47.8 LAB L100.1900 150-450 K/mm3 Normal PLT 293 LAB L100.2000 6.2-12.0 fl Normal MPV 10.0 Performed By: #### L100.0500 #### [facility] [address] [place], [address] COMPREHENSIVE METABOLIC Collected: 09/06/2017 Status: F Source: [place] PROFIL 11:47 AM [facility] [place] TYPE CODE TESTS RESULT OUT OF RANGE REFERENCE UNITS LAB L501.0100 74-106 mg/dL High GLU 107 Result Comment: Fasting Glucose result from 100 to 125 mg/dL suggests IMPAIRED HOMEOSTASIS per A.D.A. criteria. Please note revised GLUCOSE reference range effective 2017. LAB L501.1000 7-18 mg/dL Normal BUN 11 LAB L501.1100 0.55-1.02 mg/dL Normal CREAT,SERUM 0.86 Result Comment: The validity of the calculated GFR AND GFRAA in patients over 70 years has not been determined. Clinical correlation is essential. LAB L501.1110 >60 mL/min Normal EST GFR 69 Result Comment: Non- GFR Calc LAB L501.1115 >60 mL/min Normal EST GFR - AA 83 Result Comment: GFR Calc LAB L501.1255 ml/min Normal Estimated CRCL 45.93 LAB L501.1300 10-20 RATIO Normal BUN/CRE 12.7 LAB L501.1500 6.4-8. g/dL Normal 2 T PROT 7.4 LAB L501.1800 3.2-5. g/dL Low 0 ALB 3.1 LAB L501.1950 2.2-4. g/dL High 2 GLOB 4.3 LAB L501.2000 0.9-2. RATIO Low 4 A/G 0.7 LAB L501.2200 8.5-10 mg/dL Low .1 CA 8.4 LAB L501.4100 15-37 U/L High AST 183 LAB L501.4305 45-117 U/L High ALK P 865 LAB L501.4405 13-56 U/L High ALT 195 LAB L501.4600 0.20-1 mg/dL High .00 T BILI 2.00 LAB L501.5300 136-14 mmol/L Normal 5 NA 137 LAB L501.5600 3.5-5. mmol/L Normal 1 K 3.7 LAB L501.5900 98-107 mmol/L Normal CL 101 LAB L501.6100 21.0-3 mmol/L Normal 2.0 CO2 31.0 LAB L501.6200 5-15 Normal GAP 5 Performed By: #### L500.4050 #### [facility] [address] [place] [address]. [place], [address] CBC W/DIFF, AUTOMATED Collected: 08/27/2017 Status: F Source: [place] 1:53 PM [facility] [place] TYPE CODE TESTS RESULT OUT OF RANGE REFERENCE UNITS LAB L100.1000 4.4-11.0 K/mm3 Normal WBC 9.1 LAB L100.1200 4.2-5.4 M/mm3 Low RBC 3.85 LAB L100.1300 12.0-15.0 g/dl Low HGB 11.0 LAB L100.1400 37-47 % Low HCT 36.0 LAB L100.1500 81-99 fL Normal MCV 93.5 LAB L100.1600 27.0-32.0 pg Normal MCH 28.6 LAB L100.1700 32-36 g/gl Low MCHC 30.6 LAB L100.1810 11.6-14.6 % Normal RDW CV 14.1 LAB L100.1820 35.1-43.9 fl High RDW SD 46.5 LAB L100.1900 150-450 K/mm3 Normal PLT 323 LAB L100.2000 6.2-12.0 fl Normal MPV 10.8 LAB L100.2100 47-70 % Normal NEUT% 60.0 LAB L100.2200 19-41 % Normal LY% 31.4 LAB L100.2300 0-10 % Normal MONO% 5.7 LAB L100.2400 0-5 % Normal EO% 2.3 LAB L100.2500 0-1 % Normal BASO% 0.3 LAB L100.2550 0.0-0.9 % Normal IM GRAN % 0.300 Result Comment: IG% - Immature Granulocytes (promyelocytes, myelocytes and metamyelocytes) > 1% indicates that a LEFT SHIFT is Present. LAB L100.2620 2.0-7.7 X10 3/uL Normal Absolute Neut 5.5 LAB L100.2720 0.83-4.51 X10 3/ul Normal Absolute Lymph 2.87 Performed By: #### L100.0100 #### [facility] [address] [facility] [place], [address] CHEST WITHOUT Observed: 08/08/2017 Status: F Source: [place] CONTRAST 11:34 AM [facility] [place] [facility] Imaging Services [address] [place] [address] Chest without Contrast MR#: [id number] Acct: [id number] Name: CHARISSA WALLACE Rep #: [id number] : 1945 F 72 From: Yumiko Hughes MD PCP: Ino Silva MD, Chi Status: REG CLI Study: Chest without Contrast Date of Exam: 08/08/17 Exam# [id number] Ordering Dr: Ino Silva MD STUDY: CT CHEST WITHOUT CONTRAST REASON FOR EXAM: Female, 72 years old. Tobacco use RADIATION DOSAGE (If Supplied By Facility): CTDIvol = ( 3.02 ) mGy, DLP = ( 101.18 ) mGycm TECHNIQUE: Transaxial imaging was performed without the administration of intravenous contrast material. Multiplanar coronal and sagittal images were reformatted. This study is in a primarily bone window format limited soft tissue windows. Individualized dose optimization techniques were used for this CT. COMPARISON: July 26, 2017 and his x-ray FINDINGS: There is scattered areas of small emphysematous blebs seen in the upper lung zones primarily. This no visualized focal consolidation pleural effusion or evidence of pulmonary edema or pneumothorax. There is trace lower lobe atelectasis. There is eventration or a elevated left hemidiaphragm. There is no demonstrated pleural abnormality. Sternotomy wires are seen midline. There are coronary calcifications. There is mild cardiac enlargement. There is a 8.2 mm pretracheal lymph node. Normal mediastinum. Normal hilar regions. Normal unenhanced pulmonary arteries. Normal aorta arch and descending thoracic aorta. There is demineralization of the thoracic spine. There is degenerative change. There are multiple old left-sided rib fractures. There is a small hiatal hernia. CT/Chest without Contrast IMPRESSION: Emphysematous change. Status post sternotomy. Coronary artery disease. Degenerative changes of thoracolumbar spine Limited study. Electronically Signed: Yumiko Hughes MD at 8:53 EDT Tel , Service support , CC: Ino Silva MD Boiler Coverer: Signed CBC W/DIFF, AUTOMATED Collected: 08/04/2017 Status: F Source: [place] 3:48 PM [facility] [place] TYPE CODE TESTS RESULT OUT OF RANGE REFERENCE UNITS LAB L100.1000 4.4-11.0 K/mm3 Normal WBC 9.8 LAB L100.1200 4.2-5.4 M/mm3 Low RBC 3.07 LAB L100.1300 12.0-15.0 g/dl Low HGB 9.0 LAB L100.1400 37-47 % Low HCT 28.8 LAB L100.1500 81-99 fL Normal MCV 93.8 LAB L100.1600 27.0-32.0 pg Normal MCH 29.3 LAB L100.1700 32-36 g/gl Low MCHC 31.3 LAB L100.1810 11.6-14.6 % High RDW CV 14.7 LAB L100.1820 35.1-43.9 fl High RDW SD 49.7 LAB L100.1900 150-450 K/mm3 Normal PLT 359 LAB L100.2000 6.2-12.0 fl Normal MPV 9.4 LAB L100.2100 47-70 % Normal NEUT% 59.1 LAB L100.2200 19-41 % Normal LY% 33.8 LAB L100.2300 0-10 % Normal MONO% 4.8 LAB L100.2400 0-5 % Normal EO% 1.9 LAB L100.2500 0-1 % Normal BASO% 0.3 LAB L100.2550 0.0-0.9 % Normal IM GRAN % 0.100 Result Comment: IG% - Immature Granulocytes (promyelocytes, myelocytes and metamyelocytes) > 1% indicates that a LEFT SHIFT is Present. LAB L100.2620 2.0-7.7 X10 3/uL Normal Absolute Neut 5.8 LAB L100.2720 0.83-4.51 X10 3/ul Normal Absolute Lymph 3.31 Performed By: #### L100.0100 #### [facility] [address] [facility] [place] [place], [address] 12 LEAD ELECTROCARDIOGRAM Observed: 07/29/2017 Status: F Source: [place] 3:55 PM [facility] [place] [facility] Cardiovascular Services [address] [place] [address] 12 Lead EKG 07/26/171916 MR#: [id number] Acct: [id number] Name: CHARISSA WALLACE Grace Rep #: [id number] : 1945 72 From: Gordy Pedroza MD Attending Dr: Status: DEP ER Ordering Dr: Ja Nix MD Date: 07/26/17 Location: ED Sex: F C Admitted: Test Reason : CP Blood Pressure : / mmHG Vent. Rate : 082 BPM Atrial Rate : 082 BPM P-R Int : 150 ms QRS Dur : 086 ms QT Int : 404 ms P-R-T Axes : 013 041 067 degrees QTc Int : 472 ms Normal sinus rhythm Normal ECG Confirmed by YOVANY GOLD, GORDY ([id number]), news video editor DAVID CARMONA ([id number]) on 07/29/2017 3:55:10 PM Referred By: RD Confirmed By:GORDY PEDROZA MD 07/29/17 1555 Date Gordy Pedroza MD CC: Ja Nix MD; Ino Silva MD Signed BASIC METABOLIC PANEL Collected: 07/28/2017 Status: F Source: [place] 5:18 AM [facility] REPOSITORY TYPE CODE TESTS RESULT OUT OF RANGE REFERENCE UNITS LAB NA3 137-145 mmol/L Sodium Normal 144 LAB K3 3.5-5.1 mmol/L Normal Potassium 3.9 LAB CL3 98-107 mmol/L High Chloride 111 LAB CO23 22-30 mmol/L Carbon Normal Dioxide 29 LAB ANIN3 NA Anion Gap 4 LAB GLUC3 70-100 mg/dL Glucose Normal 80 LAB BUN3 7-20 mg/dL Low Urea Nitrogen 6 LAB CRET3 0.52-1.25 mg/dL Normal Creatinine 0.68 LAB GF3BR >60 mL/min eGFR > 60.0 LAB GF3WR >60 mL/min eGFR OTHER > 60.0 Result Comment: Source- MDRD equation with creatinine calibration to IDMS(NKDEP) eGFR not recommended for drug dose adjustment LAB CA3 8.4-10.2 mg/dL Low Calcium 7.7 Performed By: #### HEMDF, ICA, BMP3, MG3, PHOS3 #### [facility] [employer] [address] [place] [phone] MAGNESIUM Collected: 07/28/2017 Status: F Source: [place] 5:18 AM [facility] REPOSITORY TYPE CODE TESTS RESULT OUT OF RANGE REFERENCE UNITS LAB MG3 1.6-2.3 mg/dL Normal Magnesium 1.8 Performed By: #### HEMDF, ICA, BMP3, MG3, PHOS3 #### [facility] [address] [place] [address] PHOSPHORUS Collected: 07/28/2017 Status: F Source: [place] 5:18 AM [facility] REPOSITORY TYPE CODE TESTS RESULT OUT OF RANGE REFERENCE UNITS LAB PHOS3 2.5-4.5 mg/dL Normal Phosphorus 2.9 Performed By: #### HEMDF, ICA, BMP3, MG3, PHOS3 #### [facility] [address] [place] [phone] CALCIUM,IONIZED Collected: 07/28/2017 Status: F Source: [place] 5:17 AM [facility] REPOSITORY TYPE CODE TESTS RESULT OUT OF RANGE REFERENCE UNITS LAB ICAL 4.30-5.20 mg/dL Low Ionized 4.20 Ca,Measured LAB PHICA 7.31-7.46 NA Normal pH, Ionized 7.32 Calcium Performed By: #### HEMDF, ICA, BMP3, MG3, PHOS3 #### [facility] [address] [place] [phone] HEMOGRAM W/ AUTODIFF Collected: 07/28/2017 Status: F Source: [place] 5:16 AM [facility] REPOSITORY TYPE CODE TESTS RESULT OUT OF REFERENCE UNITS RANGE LAB IWBC 3.6-10.7 10*3/uL WBC Normal 10.1 LAB RBC 3.80-5.20 10*6/uL Low RBC 3.06 LAB HGB 11.7-16.0 g/dL Low Hemoglobin 9.3 LAB HCT 35.0-47.0 % Low Hematocrit 27.7 LAB MCV 79.0-98.0 fL MCV Normal 90.4 LAB MCH 26.0-34.0 pg MCH Normal 30.4 LAB MCHC 32.0-36.0 % MCHC Normal 33.6 LAB RDW 11.5-14.5 % RDW High 15.0 LAB PLT 140-440 10*3/uL Platelet Normal 280 LAB MPV 7.4-10.4 fL MPV Normal 8.1 LAB GRAN% 40.0-80.0 % Granulocytes Normal 63.0 LAB LYMP% 20.0-40.0 % Lymphocytes Normal 28.6 LAB MONO% 2.0-10.0 % Monocytes Normal 6.2 LAB EOS% 1.0-6.0 % Eosinophils Normal 1.6 LAB BAS% 0.0-2.0 % Basophils Normal 0.6 LAB ANC 1.8-7.0 10*3/uL Abs Normal Neutrophile Cnt 6.4 LAB ALC 1.0-4.3 10*3/uL Abs Lymph Cnt Normal 2.9 LAB AMC 0.0-0.8 10*3/uL Abs Monocyte Normal Cnt 0.6 LAB AEC 0.0-0.5 10*3/uL Abs Eosin Cnt Normal 0.2 LAB ABC 0.0-0.2 10*3/uL Abs Baso Cnt Normal 0.1 Performed By: #### HEMDF, ICA, BMP3, MG3, PHOS3 #### [employer] [facility] [address] [place] [phone] HEMOGRAM W/ AUTODIFF Collected: 07/27/2017 Status: F Source: [place]note 5:27 PM SYSTEM REPOSITORY TYPE CODE TESTS RESULT OUT OF REFERENCE UNITS RANGE LAB IWBC 3.6-10.7 10*3/uL WBC Normal 9.6 LAB RBC 3.80-5.20 10*6/uL Low RBC 2.99 LAB HGB 11.7-16.0 g/dL Low Hemoglobin 9.1 LAB HCT 35.0-47.0 % Low Hematocrit 26.8 LAB MCV 79.0-98.0 fL MCV Normal 89.7 LAB MCH 26.0-34.0 pg MCH Normal 30.3 LAB MCHC 32.0-36.0 % MCHC Normal 33.7 LAB RDW 11.5-14.5 % RDW High 14.6 LAB PLT 140-440 10*3/uL Platelet Normal 259 LAB MPV 7.4-10.4 fL MPV Normal 8.2 LAB GRAN% 40.0-80.0 % Granulocytes Normal 65.1 LAB LYMP% 20.0-40.0 % Lymphocytes Normal 26.3 LAB MONO% 2.0-10.0 % Monocytes Normal 6.1 LAB EOS% 1.0-6.0 % Eosinophils Normal 1.6 LAB BAS% 0.0-2.0 % Basophils Normal 0.9 LAB ANC 1.8-7.0 10*3/uL Abs Normal Neutrophile Cnt 6.3 LAB ALC 1.0-4.3 10*3/uL Abs Lymph Cnt Normal 2.5 LAB AMC 0.0-0.8 10*3/uL Abs Monocyte Normal Cnt 0.6 LAB AEC 0.0-0.5 10*3/uL Abs Eosin Cnt Normal 0.2 LAB ABC 0.0-0.2 10*3/uL Abs Baso Cnt Normal 0.1 Performed By: #### HEMDF #### [facility] [address] [place] [address] HEMOGLOBIN AND Collected: 07/27/2017 Status: F Source: Footnote HEMATOCRIT 9:41 AM SYSTEM REPOSITORY TYPE CODE TESTS RESULT OUT OF REFERENCE UNITS RANGE LAB HGB 11.7-16.0 g/dL Low Hemoglobin 9.3 LAB HCT 35.0-47.0 % Low Hematocrit 27.2 Performed By: #### HGHCT #### [employer] [address] [address] CR CHEST PORTABLE Observed: 07/27/2017 Status: F Source: [place]note 8:05 AM SYSTEM REPOSITORY Patient Name: CHARISSA WALLACE Diagnostic Radiology Exam Date/Time 07/27/2017 06:40:41 EDT Exam CR Chest Portable Ordering Physician MD ORLY, FLAVIA Salazar. Accession Number [id number] CPT4 Codes 00647 () Reason For Exam cough Report Portable chest 07/27/2017: Clinical Information: Cough. Findings: A single AP portable view of the chest was obtained at 553 hours. No prior studies for comparison. The trachea is midline. The heart is not enlarged. No focal areas of consolidation or volume loss are seen. There are no pleural effusions. The pulmonary vasculature is mildly congested. The visualized bony structures are intact. Report Dictated on Final Dictated: 07/27/2017 8:05 am Dictating Physician: MD FIELDS RISA Signed Date and Time: 07/27/2017 8:05 am Signed by: MD FIELDS RISA Transcribed Date and Time: 07/27/2017 8:05 IRON AND TIBC Collected: 07/27/2017 Status: F Source: [place]note 12:59 AM SYSTEM REPOSITORY TYPE CODE TESTS RESULT OUT OF RANGE REFERENCE UNITS LAB IRON3 37-170 ug/dL Low Iron, Total 17 LAB TIBC3 261-497 ug/dL Total Normal Iron Binding 328 Cap. LAB SAT3 15-50 % Low Saturation 5 Performed By: #### HEMDF, MG3, PHOS3, ALB3, BMP3M, TSH4, FEIBC, FERR3 #### [facility] [address] [address] Observed: 07/27/2017 Status: F Source: Footnote TS GEL 12:59 AM SYSTEM REPOSITORY ABO Group: O Rh, Gel: POS Antibody Screen Gel: NEG Performed By: #### TSGL #### [facility] [address] [address] #### LRC #### [address] [address] Observed: 07/27/2017 Status: F Source: Footnote LEUKODEPLETED RED CELLS 12:59 AM SYSTEM REPOSITORY Leukodepleted Red Cells: [id number] transfused 07/27/17 06:03 JMV Unit Blood Type: O Unit Blood Rh: POS Blood Product Code: AS1 Unit Number: [id number] Unit Status: transfused Barcoded Unit Number: =[id number] Barcoded Product Code: =<T8085K64 Barcoded ABO/Rh: =%5100 Unit Expiration: Unit Volume Transfused: 300 Unit Transfusion Start Date/Time: Leukodepleted Red Cells: [id number] transfused 07/27/17 02:48 JMV Unit Blood Type: O Unit Blood Rh: POS Blood Product Code: AS1 Unit Number: [id number] Unit Status: transfused Barcoded Unit Number: =[id number] Barcoded Product Code: =<B9232E85 Barcoded ABO/Rh: =%5100 Unit Expiration: Unit Volume Transfused: 300 Unit Transfusion Start Date/Time: Performed By: #### TSGL #### [facility] [address] [address] #### LRC #### [address] [address] Observed: 07/27/2017 Status: F Source: Footnote RESPIRATORY PCR PANEL 12:59 AM SYSTEM REPOSITORY Order Comment: Specimen Source Comment:Nasopharyngeal RESPIRATORY PCR PANEL --> Status: F NEGATIVE: No targets were detected by the [employer] Upper Respiratory Pathogens PCR Panel. The [employer] Upper Respiratory Pathogens PCR Panel detects the following targets: Adenovirus Coronavirus 229E Coronavirus HKU1 Coronavirus NL63 Coronavirus OC43 Human Metapneumovirus Human Rhinovirus/Enterovirus Influenza A Influenza B Parainfluenza Virus 1 Parainfluenza Virus 2 Parainfluenza Virus 3 Parainfluenza Virus 4 Respiratory Syncytial Virus Bordetella pertussis Bordetella parapertussis Chlamydia pneumoniae Mycoplasma pneumoniae Respiratory Pathogens PCR Panel. The [employer] Upper Respiratory Pathogens PCR Panel detects the following targets: Adenovirus Coronavirus 229E Coronavirus HKU1 Coronavirus NL63 Coronavirus OC43 Human Metapneumovirus Human Rhinovirus/Enterovirus Influenza A Influenza B Parainfluenza Virus 1 Parainfluenza Virus 2 Parainfluenza Virus 3 Parainfluenza Virus 4 Respiratory Syncytial Virus Bordetella pertussis Bordetella parapertussis Chlamydia pneumoniae Mycoplasma pneumoniae Performed By: #### RESBF #### [employer] [facility] [address] [place] [phone] HEMOGRAM W/ AUTODIFF Collected: 07/27/2017 Status: F Source: Footnote 12:31 AM SYSTEM REPOSITORY TYPE CODE TESTS RESULT OUT OF REFERENCE UNITS RANGE LAB IWBC 3.6-10.7 10*3/uL WBC High 10.8 LAB RBC 3.80-5.20 10*6/uL Low RBC 2.12 LAB HGB 11.7-16.0 g/dL Low Alert Hemoglobin 6.4 Result Comment: repeated LAB HCT 35.0-47.0 % Low Hematocrit 19.0 LAB MCV 79.0-98.0 fL MCV Normal 89.6 LAB MCH 26.0-34.0 pg MCH Normal 30.2 LAB MCHC 32.0-36.0 % MCHC Normal 33.7 LAB RDW 11.5-14.5 % High RDW 15.2 LAB PLT 140-440 10*3/uL Platelet Normal 264 LAB MPV 7.4-10.4 fL MPV Normal 8.3 LAB GRAN% 40.0-80.0 % Granulocytes Normal 52.9 LAB LYMP% 20.0-40.0 % Lymphocytes Normal 38.4 LAB MONO% 2.0-10.0 % Monocytes Normal 5.3 LAB EOS% 1.0-6.0 % Eosinophils Normal 2.5 LAB BAS% 0.0-2.0 % Basophils Normal 0.9 LAB ANC 1.8-7.0 10*3/uL Abs Neutrophile Normal Cnt 5.7 LAB ALC 1.0-4.3 10*3/uL Abs Lymph Cnt Normal 4.2 LAB AMC 0.0-0.8 10*3/uL Abs Monocyte Cnt Normal 0.6 LAB AEC 0.0-0.5 10*3/uL Abs Eosin Cnt Normal 0.3 LAB ABC 0.0-0.2 10*3/uL Abs Baso Cnt Normal 0.1 Performed By: #### HEMDF, MG3, PHOS3, ALB3, BMP3M, TSH4, FEIBC, FERR3 #### [employer] [address] [place] [phone] MAGNESIUM Collected: 07/27/2017 Status: F Source: [place]note 12:31 AM SYSTEM REPOSITORY TYPE CODE TESTS RESULT OUT OF RANGE REFERENCE UNITS LAB MG3 1.6-2.3 mg/dL Normal Magnesium 1.8 Performed By: #### HEMDF, MG3, PHOS3, ALB3, BMP3M, TSH4, FEIBC, FERR3 #### [employer] [address] [place] [phone] PHOSPHORUS Collected: 07/27/2017 Status: F Source: Footnote 12:31 AM SYSTEM REPOSITORY TYPE CODE TESTS RESULT OUT OF RANGE REFERENCE UNITS LAB PHOS3 2.5-4.5 mg/dL Normal Phosphorus 3.3 Performed By: #### HEMDF, MG3, PHOS3, ALB3, BMP3M, TSH4, FEIBC, FERR3 #### [employer] [employer] [address] [place] [phone] ALBUMIN, SERUM Collected: 07/27/2017 Status: F Source: [place]note 12:31 AM SYSTEM REPOSITORY TYPE CODE TESTS RESULT OUT OF RANGE REFERENCE UNITS LAB ALB3 3.5-5.0 g/dL Low Albumin, 3.0 Serum Performed By: #### HEMDF, MG3, PHOS3, ALB3, BMP3M, TSH4, FEIBC, FERR3 #### [employer] [address] [place] [phone] BASIC METABOLIC PANEL Collected: 07/27/2017 Status: F Source: Footnote 12:31 AM SYSTEM REPOSITORY TYPE CODE TESTS RESULT OUT OF RANGE REFERENCE UNITS LAB NA3 137-145 mmol/L Sodium Normal 142 LAB K3 3.5-5.1 mmol/L Normal Potassium 3.9 LAB CL3 98-107 mmol/L High Chloride 114 LAB CO23 22-30 mmol/L Carbon Normal Dioxide 26 LAB ANIN3 NA Anion Gap 2 LAB GLUC3 70-100 mg/dL Glucose Normal 91 LAB BUN3 7-20 mg/dL Urea Normal Nitrogen 11 LAB CRET3 0.52-1.25 mg/dL Normal Creatinine 0.80 LAB GF3BR >60 mL/min eGFR > 60.0 LAB GF3WR >60 mL/min eGFR OTHER > 60.0 Result Comment: Source- MDRD equation with creatinine calibration to IDMS(NKDEP) eGFR not recommended for drug dose adjustment LAB CA3 8.4-10.2 mg/dL Low Calcium 7.8 Performed By: #### HEMDF, MG3, PHOS3, ALB3, BMP3M, TSH4, FEIBC, FERR3 #### [employer] [address] [place] [phone] THYROID STIM. Collected: 07/27/2017 Status: F Source: Footnote HORMONE 12:31 AM SYSTEM REPOSITORY TYPE CODE TESTS RESULT OUT OF RANGE REFERENCE UNITS LAB TSH4 0.465-4.680 uU/mL Normal Thyroid Stim. 2.281 Hormone Performed By: #### HEMDF, MG3, PHOS3, ALB3, BMP3M, TSH4, FEIBC, FERR3 #### [employer] [address] [place] [phone] FERRITIN Collected: 07/27/2017 Status: F Source: Footnote 12:31 AM SYSTEM REPOSITORY TYPE CODE TESTS RESULT OUT OF RANGE REFERENCE UNITS LAB 3FERR 8-252 ng/mL Normal Ferritin 10 Performed By: #### HEMDF, MG3, PHOS3, ALB3, BMP3M, TSH4, FEIBC, FERR3 #### [employer] [address] [place] [phone] EMERGENCY DEPARTMENT Observed: 07/26/2017 Status: F Source: [place] SUMMARY 9:55 PM [facility] [place] [facility] Medical Records Department [address] [place] [address] Emergency Department Summary 07/26/171924 MR#: [id number] Acct: [id number] Name: CHARISSA WALLACE Rep #: [id number] : 1945 72 From: Ja Nix MD PCP: Ricardo GOLD,Ino Ngo Status: DEP ER - ER Visit Summary Date of Service: 07/26/17 Chief Complaint: Nausea, chest pain, diarrhea History of Present Illness: The patient is a 72 F Zentz to the emergency department multiple complaints. Patient has a history of anxiety, coronary vascular disease, hypertension. She states that on , she began have generalized illness. She had some abdominal cramping. She had a few bouts of vomiting and some loose watery diarrhea. She states that she also had a nosebleed on Thursday. She states yesterday, the diarrhea seemed to be improving she was able to eat. Today, her nausea returned. She states that this, she began have chest pain. He was substernal in the left side. She states that she does get similar pain like this from time to time. She was actually admitted in April of this year for the same. She had a negative stress test. Patient called squad. On squad arrival, she was given aspirin and nitro which resolved her pain. She states that she is feeling back to normal just with some persistent nausea. Physical Examination: Vital signs reviewed General: Well-nourished, well-developed Head: Normocephalic, atraumatic Eyes: Pupils equal and reactive, extraocular muscles intact Neck, supple, no lymphadenopathy Heart: Regular rate and rhythm Respiratory: No distress, clear bilaterally Abdomen: Soft, nontender, nondistended, no peritoneal signs Back: Nontender Extremities: Nontender, no edema, no cords Skin: Normal color no rash Neuro: Alert and oriented, no focal or lateralizing deficits Test Results: [] Emergency Department Course and Treatment: Patient presents with multiple complaints. EKG was obtained. On her prior EKG, the patient had T-wave inversions anteriorly which have since normalized. IV was established. Patient was given fluids and Phenergan. I really do not feel that the symptoms were more consistent with acute coronary syndrome. Patient has a new anemia. Her hemoglobin is 6.2. 5 days ago was 12. The patient states when I reevaluated her that she had been having jet black diarrhea for 3 days. Rectal exam was done with nurse in the room. It was guaiac positive. There is no active bleeding. With the patient's new anemia and evidence of upper GI bleed, she is going to require GI intervention. She is started on Protonix drip. I did discuss with patient options for transfer. She requested transfer to [facility]. Patient was discussed with Dr. Ramsay. She will be transferred for further workup and intervention of upper GI bleed. Treatment Plan: [] Disposition: Transfer Impression: 1. Upper GI bleed. 2 new anemia 3. Chest pain This note was generated with Tamion dictation software. It may contain incorrect words, spelling, and punctuation that were not noted in review of the chart prior to signing ED Disposition - Plan for ED Patient: Chief Complaint: Chest Pain Referrals: Ashley Parikh MD [STAFF PHYSICIAN] - What to do if you have Problems For any increased pain, shortness of breath, bleeding, nausea or vomiting, chest pain, or any unexpected problems, contact your Primary Care Provider. Call [facility] ([phone]) or report to the closest Emergency Room. Call 911 if necessary. 07/26/17 2150 <Electronically signed by Ja Nix MD> Date Ja Nix MD Cosigner Signature (If Indicated): Date CC: Ino Silva MD TYPE AND SCREEN Collected: 07/26/2017 Status: F Source: [place] 7:50 PM [facility] [place] Order Comment: Reason for Type AND Screen/Red Cells: HEMORRHAGE, GI BLEED TYPE CODE TESTS RESULT OUT OF RANGE REFERENCE UNITS LAB B10.0800 O Normal BLOOD TYPE GEL POSITIVE LAB B100.4000 Normal Antibody NEGATIVE Screen Performed By: #### B101.7450 #### [facility] [address] [place], [place], [address] CBC W/DIFF, AUTOMATED Collected: 07/26/2017 Status: F Source: [place] 7:25 PM [facility] [place] TYPE CODE TESTS RESULT OUT OF RANGE REFERENCE UNITS LAB L100.1000 4.4-11.0 K/mm3 Normal WBC 10.9 LAB L100.1200 4.2-5.4 M/mm3 Low RBC 2.12 LAB L100.1300 12.0-15.0 g/dl Low HGB 6.4 LAB L100.1400 37-47 % Low HCT 20.0 LAB L100.1500 81-99 fL Normal MCV 94.3 LAB L100.1600 27.0-32.0 pg Normal MCH 30.2 LAB L100.1700 32-36 g/gl Normal MCHC 32.0 LAB L100.1810 11.6-14.6 % Normal RDW CV 14.5 LAB L100.1820 35.1-43.9 fl High RDW SD 47.2 LAB L100.1900 150-450 K/mm3 Normal PLT 299 LAB L100.2000 6.2-12.0 fl Normal MPV 10.1 LAB L100.2100 47-70 % Normal NEUT% 55.9 LAB L100.2200 19-41 % Normal LY% 35.3 LAB L100.2300 0-10 % Normal MONO% 5.7 LAB L100.2400 0-5 % Normal EO% 2.1 LAB L100.2500 0-1 % Normal BASO% 0.5 LAB L100.2550 0.0-0.9 % Normal IM GRAN % 0.500 Result Comment: IG% - Immature Granulocytes (promyelocytes, myelocytes and metamyelocytes) > 1% indicates that a LEFT SHIFT is Present. LAB L100.2620 2.0-7.7 X10 3/uL Normal Absolute Neut 6.1 LAB L100.2720 0.83-4.51 X10 3/ul Normal Absolute Lymph 3.83 Performed By: #### L100.0100 #### [facility] [address] [place], [address] COMPREHENSIVE METABOLIC Collected: 07/26/2017 Status: F Source: [place] 7:25 PM [facility] [place] CODE TESTS RESULT OUT OF RANGE REFERENCE UNITS LAB L501.0100 74-106 mg/dL High GLU 116 Result Comment: Fasting Glucose result from 100 to 125 mg/dL suggests IMPAIRED HOMEOSTASIS per A.D.A. criteria. Please note revised GLUCOSE reference range effective 2017. LAB L501.1000 7-18 mg/dL Normal BUN 13 LAB L501.1100 0.55-1.02 mg/dL Normal CREAT,SERUM 0.96 Result Comment: The validity of the calculated GFR AND GFRAA in patients over 70 years has not been determined. Clinical correlation is essential. LAB L501.1110 >60 mL/min Normal EST GFR 61 Result Comment: Non- GFR Calc LAB L501.1115 >60 mL/min Normal EST GFR - AA 74 Result Comment: GFR Calc LAB L501.1255 ml/min Normal Estimated CRCL 41.15 LAB L501.1300 10-20 RATIO Normal BUN/CRE 13.6 LAB L501.1500 6.4-8. g/dL Low 2 T PROT 5.5 LAB L501.1800 3.2-5. g/dL Low 0 ALB 2.7 LAB L501.1950 2.2-4. g/dL Normal 2 GLOB 2.8 LAB L501.2000 0.9-2. RATIO Normal 4 A/G 1.0 LAB L501.2200 8.5-10 mg/dL Low .1 CA 7.3 LAB L501.4100 15-37 U/L Low AST 10 LAB L501.4305 45-117 U/L Normal ALK P 76 LAB L501.4405 13-56 U/L Low ALT 11 LAB L501.4600 0.20-1 mg/dL Normal .00 T BILI 0.20 LAB L501.5300 136-14 mmol/L Normal 5 NA 140 LAB L501.5600 3.5-5. mmol/L Normal 1 K 3.6 LAB L501.5900 98-107 mmol/L High CL 109 LAB L501.6100 21.0-3 mmol/L Normal 2.0 CO2 25.0 LAB L501.6200 5-15 Normal GAP 6 Performed By: #### L500.4050, L501.2450, L501.4010 #### [facility] [address] [place], [address] LIPASE Collected: 07/26/2017 Status: F Source: [place] 7:25 PM [facility] [place] CODE TESTS RESULT OUT OF RANGE REFERENCE UNITS LAB L501.2450 73-393 U/L Normal LIPASE 155 Performed By: #### L500.4050, L501.2450, L501.4010 #### [facility] [address] [place] [place], [address] TROPONIN-I Collected: 07/26/2017 Status: F Source: [place] 7:25 PM [facility] [place] CODE TESTS RESULT OUT OF RANGE REFERENCE UNITS LAB L501.4010 <0.045 ng/mL Normal < 0.015 TROPONIN-I Result Comment: TROPONIN-I EXPECTED VALUES <0.045 Negative 0.045 - 0.590 Consistent with Cardiac Damage > OR = 0.600 Critical Value Not every elevated troponin is indicative of OR. These values should be used with clinical judgement in examining the patient's clinical picture for diagnosis. To establish a diagnosis of OR versus myocardial injury, there must be a demonstrated rise and/or fall in the troponin values, in addition to ischemic symptoms, EKG changes, new regional wall motion abnormality, and/or angiographical evidence. PLEASE NOTE: REFERENCE RANGES EDITED 17 Performed By: #### L500.4050, L501.2450, L501.4010 #### [facility] [address] [place] [place], [address] CHEST 1 VIEW Observed: 07/26/2017 Status: F Source: [place] (PORTABLE) 7:25 PM [facility] [place] [facility] Imaging Services [address] [place] [address] Chest 1 View (Portable) MR#: [id number] Acct: [id number] Name: CHARISSA WALLACE Grace Rep #: [id number] : 1945 F 72 From: Miller Castillo MD PCP: Ricardo GOLD,Ino Chi Status: REG ER Study: Chest 1 View (Portable) Date of Exam: 07/26/17 Exam# [id number] Ordering Dr: Ja Nix MD STUDY: X-RAY CHEST REASON FOR EXAM: Female, 72 years old. Chest pain TECHNIQUE: Single AP portable view of the chest. COMPARISON: 04/23/2017. FINDINGS: The lungs are clear and expanded. There is no demonstrated pleural abnormality. Sternal cerclage wires and vascular clips are present from a prior sternotomy and coronary artery bypass graft procedure (CABG). Normal mediastinum and beverly. Normal visualized pulmonary arteries. Normal visualized aortic arch and descending thoracic aorta. Normal visualized thoracic spine. Normal visualized ribs, clavicles, and shoulders. There is no demonstrated abnormality of the visualized soft tissue structures of the upper abdomen. RAD/Chest 1 View (Portable) IMPRESSION: No acute chest disease. Electronically Signed: Miller Castillo MD at 20:16 EDT , Service support , CC: Ja Nix MD; Ino Silva MD Boiler Coverer: Signed PROTHROMBIN TIME W/INR Collected: 07/26/2017 Status: F Source: [place] 7:25 PM [facility] [place] TYPE CODE TESTS RESULT OUT OF RANGE REFERENCE UNITS LAB L300.4150 11.7-14.9 SECONDS Normal PROTIME 12.6 LAB L300.4200 Normal INR 0.9 Performed By: #### L300.3900, L300.4310 #### [facility] [address] [place], [place], [id number] PARTIAL THROMBOPLAST Collected: 07/26/2017 Status: F Source: [place] TIME 7:25 PM [facility] [place] TYPE CODE TESTS RESULT OUT OF RANGE REFERENCE UNITS LAB L300.4310 24.1-36.2 Seconds Normal PTT 26.6 Performed By: #### L300.3900, L300.4310 #### [facility] [address] [place], [place], [address] CBC W/DIFF, AUTOMATED Collected: 07/21/2017 Status: F Source: [place] 4:24 PM [facility] [place] TYPE CODE TESTS RESULT OUT OF RANGE REFERENCE UNITS LAB L100.1000 4.4-11.0 K/mm3 High WBC 14.8 LAB L100.1200 4.2-5.4 M/mm3 Low RBC 4.12 LAB L100.1300 12.0-15.0 g/dl Normal HGB 12.0 LAB L100.1400 37-47 % Normal HCT 37.6 LAB L100.1500 81-99 fL Normal MCV 91.3 LAB L100.1600 27.0-32.0 pg Normal MCH 29.1 LAB L100.1700 32-36 g/gl Low MCHC 31.9 LAB L100.1810 11.6-14.6 % Normal RDW CV 14.6 LAB L100.1820 35.1-43.9 fl High RDW SD 49.4 LAB L100.1900 150-450 K/mm3 Normal PLT 346 LAB L100.2000 6.2-12.0 fl Normal MPV 10.6 LAB L100.2100 47-70 % Normal NEUT% 65.7 LAB L100.2200 19-41 % Normal LY% 27.4 LAB L100.2300 0-10 % Normal MONO% 5.3 LAB L100.2400 0-5 % Normal EO% 1.2 LAB L100.2500 0-1 % Normal BASO% 0.2 LAB L100.2550 0.0-0.9 % Normal IM GRAN % 0.200 Result Comment: IG% - Immature Granulocytes (promyelocytes, myelocytes and metamyelocytes) > 1% indicates that a LEFT SHIFT is Present. LAB L100.2620 2.0-7.7 X10 3/uL High Absolute Neut 9.7 LAB L100.2720 0.83-4.51 X10 3/ul Normal Absolute Lymph 4.04 Performed By: #### L100.0100 #### [facility] [address] [place], [address] COMPREHENSIVE METABOLIC Collected: 07/21/2017 Status: F Source: [place] 4:24 PM [facility] [place] TYPE CODE TESTS RESULT OUT OF RANGE REFERENCE UNITS LAB L501.0100 74-106 mg/dL Normal GLU 89 Result Comment: Please note revised GLUCOSE reference range effective 2017. LAB L501.1000 7-18 mg/dL Normal BUN 18 LAB L501.1100 0.55-1.02 mg/dL Normal CREAT,SERUM 0.83 Result Comment: The validity of the calculated GFR AND GFRAA in patients over 70 years has not been determined. Clinical correlation is essential. LAB L501.1110 >60 mL/min Normal EST GFR 72 Result Comment: Non- GFR Calc LAB L501.1115 >60 mL/min Normal EST GFR - AA 87 Result Comment: GFR Calc LAB L501.1300 10-20 RATIO High BUN/CRE 21.7 LAB L501.1500 6.4-8.2 g/dL T Normal PROT 7.1 LAB L501.1800 3.2-5.0 g/dL Normal ALB 3.5 LAB L501.1950 2.2-4.2 g/dL Normal GLOB 3.6 LAB L501.2000 0.9-2.4 RATIO Normal A/G 1.0 LAB L501.2200 8.5-10.1 mg/dL Low CA 8.3 LAB L501.4100 15-37 U/L Normal AST 18 LAB L501.4305 45-117 U/L Normal ALK P 105 LAB L501.4405 13-56 U/L Normal ALT 21 LAB L501.4600 0.20-1.00 mg/dL T Normal BILI 0.40 LAB L501.5300 136-145 mmol/L NA Normal 137 LAB L501.5600 3.5-5.1 mmol/L K Normal 4.0 LAB L501.5900 98-107 mmol/L CL Normal 104 LAB L501.6100 21.0-32.0 mmol/L Normal CO2 27.0 LAB L501.6200 5-15 Normal GAP 6 Performed By: #### L500.4050, L501.9520 #### [facility] [address] [place], [address] THYROID STIM HORMONE Collected: 07/21/2017 Status: F Source: [place] (TSH) 4:24 PM [facility] [place] TYPE CODE TESTS RESULT OUT OF RANGE REFERENCE UNITS LAB L501.9520 0.358-3.74 uIU/mL Low TSH 0.32 Performed By: #### L500.4050, L501.9520 #### [facility] [address] [place], [place], [address] VITAMIN D,25 HYDROXY Collected: 07/21/2017 Status: F Source: [place] 4:24 PM [facility] [place] TYPE CODE TESTS RESULT OUT OF REFERENCE UNITS RANGE LAB L506.1000 29.95-100.01 ng/mL Low Vitamin D 26.0 25-OH Result Comment: Vitamin D 25(OH) Status Range Deficiency <20 ng/mL (50nmol/L) Insuffciency 20 - 30 ng/mL (50 - 75 nmol/L) Sufficiency 30 - 100 ng/mL (75 - 250 nmol/L) Toxicity >100 ng/mL (>250 nmol/L) Performed By: #### L506.1000 #### [facility] [address] [facility] [place], [address] HEPATITIS C ANTIBODIES Collected: 07/21/2017 Status: F Source: [place] 4:24 PM [facility] [place] TYPE CODE TESTS RESULT OUT OF RANGE REFERENCE UNITS LAB L3100.0650 0.0-0.9 s/co ratio Normal HEP C AB <0.1 Result Comment: Negative: < 0.8 Indeterminate: 0.8 - 0.9 Positive: > 0.9 The CDC recommends that a positive HCV antibody result be followed up with a HCV Nucleic Acid Amplification test (691833). Performed at: - [facility] [address] [id number] Glue Maker: Americo Marvin PhD, Phone: [phone] Performed By: #### L3100.0625 #### [facility] (refer to report for specific site) refer to report for address and phone number CT HEAD OR BRAIN W/O Observed: 07/20/2017 Status: F Source: [employer] CONTRAST 2:42 PM [facility] REPOS[facility] ORIGINAL CT HEAD OR BRAIN W/O CONTRAST Clinical Statement: change in mental status/weakness/aphasia TECHNIQUE: Axial CT images from skull base to vertex without IV contrast. This exam was performed according to our departmental dose optimization program, and includes the following measures where appli cable: automated exposure control, adjustment of the mAs and/or kVp according to patient size and/or exam, and an iterative reconstruction algorithm. COMPARISON: None. FINDINGS: There is no intracranial hemorrhage, mass effect, or abnormal extra-axial fluid collection. No CT evidence for large acute territorial infarct. A lacunar infarct in the RIGHT basal ganglia is strictly age indeterminate in the absence of a prior examination but appears chronic. There are age-indeterminate lacunar infarcts in the thalami bilaterally. Confluent foci of white matter hypoattenuation are noted in the cerebral white matter which are nonspecific but may represent severe chronic microvascular angiopathy in a patient of this age. There is p roportionate enlargement of the ventricular system and cortical sulci, compatible with mild parenchymal volume loss. Atherosclerotic calcifications are present in the cavernous carotid arteries bilaterally. The skull base and calvarium demonstrate no acute abnormality. The included paranasal sinuses and mastoid air cells are clear. IMPRESSION: 1. No acute intracranial hemorrhage, hydrocephalus, or mass effect. 2. Confluent white matter hypodensity is nonspecific may represent severe chronic microvascular angiopathy in a patient of this age. 3. Age-indeterminate lacunar infarcts in the bilateral thalami and RIGHT basal ganglia. Interpreted By: Piper Zaidi Preliminary Report By: Piper Zaidi Electronically Signed By: Piper Zaidi Dictated Date: 07/20/2017 2:51:19 PM Prelim Date: 07/20/2017 2:51:19 PM Sign Date: 07/20/2017 2:53:36 PM CBC Collected: 07/20/2017 Status: F Source: [facility] 1:50 PM [facility] REPOSITORY TYPE CODE TESTS RESULT OUT OF REFERENCE UNITS RANGE LAB WBC(LOINC) 4.50-10.80 10 3/mcL High WBC 14.70 LAB RBCCT(LOINC 4.10-5.30 10 6/mcL ) RBC 4.16 LAB HGB(LOINC) 12.0-16.0 G/dL Hgb 12.5 LAB HCT(LOINC) 34.0-46.0 % Hct 37.0 LAB MCV(LOINC) 80.0-99.0 fL MCV 88.9 LAB MCH(LOINC) 27.0-33.0 pg MCH 30.0 LAB MCHC(LOINC) 32.0-36.0 G/dL MCHC 33.8 LAB RDW(LOINC) 11.5-15.5 % RDW 15.2 LAB PLT(LOINC) 150-450 10 3/mcL Platelet 310 LAB MPV(LOINC) 6.6-10.5 fL MPV 8.7 Performed By: #### CBC, ADIFF, ANEU, CMP, GFR, TSH #### [address] [address] .AUTO DIFF Collected: 07/20/2017 Status: F Source: [facility] 1:50 PM [facility] REPOSIT[facility] TYPE CODE TESTS RESULT OUT OF REFERENCE UNITS RANGE LAB BUBBA(LOINC) 50.0-75.0 % Neutrophil % 74.2 LAB LYM(LOINC) 20.0-40.0 % Low Lymphocyte % 18.8 LAB MON(LOINC) 2.0-13.0 % Monocyte % 5.9 LAB EO(LOINC) 0.0-6.0 % Eosinophil % 0.6 LAB BAS(LOINC) 0.0-2.5 % Basophil % 0.5 LAB ABLYM(LOIN 0.90-4.32 10 3/mcL C) Lymphocyte, 2.80 Absolute LAB LOUIS(LOINC 0.09-1.40 10 3/mcL ) Monocyte, 0.90 Absolute LAB AEOS(LOINC 0.00-0.65 10 3/mcL ) Eosinophil, 0.10 Absolute LAB ABAS(LOINC 0.00-0.27 10 3/mcL ) Basophil, 0.10 Absolute Performed By: #### CBC, ADIFF, ANEU, CMP, GFR, TSH #### [address] [address] .NEUABS Collected: 07/20/2017 Status: F Source: [facility] 1:50 PM [facility] REPOSITORY TYPE CODE TESTS RESULT OUT OF REFERENCE UNITS RANGE LAB ANEU(LOINC) 2.25-8.10 10 3/mcL High Neutrophil, 10.90 Absolute Performed By: #### CBC, ADIFF, ANEU, CMP, GFR, TSH #### [address] [address] CMP Collected: 07/20/2017 Status: F Source: [facility] 1:50 PM [facility] REPOSITORY TYPE CODE TESTS RESULT OUT OF REFERENCE UNITS RANGE LAB GLU(LOINC) 82-115 mg/dL Glucose Level 109 LAB NA(LOINC) 136-145 mEq/L Sodium Level 140 LAB K(LOINC) 3.5-5.0 mEq/L Potassium Level 3.7 LAB CL(LOINC) 98-110 mEq/L Chloride 105 LAB CO2(LOINC) 22-32 mEq/L CO2 30 LAB EBAL(LOINC 4.0-15.0 mEq/L ) Electrolyte Balance 5.0 LAB BUN(LOINC) 8.0-22.0 mg/dL BUN 15.0 LAB CRE(LOINC) 0.50-1.20 mg/dL Creatinine Lvl (s) 0.79 LAB BC(LOINC) 10.0-22.0 ratio BUN/Creatinine 19.0 Ratio LAB CA(LOINC) 8.4-10.1 mg/dL Calcium Lvl 8.7 LAB PROT(LOINC 6.0-8.5 G/dL ) Total Protein 7.1 LAB ALB(LOINC) 3.2-4.8 G/dL Albumin Level 3.5 LAB GLB(LOINC) 1.5-3.8 G/dL Globulin 3.6 LAB AG(LOINC) 0.9-1.6 ratio A/G Ratio 1.0 LAB BILT(LOINC 0.2-1.2 mg/dL ) Bili Total 0.4 LAB AP(LOINC) 38-126 U/L Alk Phos 104 LAB AST(LOINC) 8-34 U/L AST/SGOT 13 LAB ALT(LOINC) 10-49 U/L ALT/SGPT 17 Performed By: #### CBC, ADIFF, ANEU, CMP, GFR, TSH #### [place] [address] .GFR Collected: 07/20/2017 Status: F Source: [facility] 1:50 PM [facility] REPOSIT[facility] TYPE CODE TESTS RESULT OUT OF REFERENCE UNITS RANGE LAB GFRAA(LOINC ml/min/1.73 ) sqm GFR >60 [place] Result Comment: GFR Population mean for , Non- Americans Ages 20-29 = 116 mL/min/1.73 sq.m. Ages 30-39 = 107 mL/min/1.73 sq.m. Ages 40-49 = 99 mL/min/1.73 sq.m. Ages 50-59 = 93 mL/min/1.73 sq.m. Ages 60-69 = 85 mL/min/1.73 sq.m. Ages 70+ = 75 mL/min/1.73 sq.m. Chronic Kidney Disease: Less than 60 mL/min/1.73 square meters End Stage Renal Disease: Less than 15 mL/min/1.73 square meters LAB GFRNO(LOINC) ml/min/1.73sqm GFR Non- >60 Result Comment: GFR Population mean for , Non- Americans Ages 20-29 = 116 mL/min/1.73 sq.m. Ages 30-39 = 107 mL/min/1.73 sq.m. Ages 40-49 = 99 mL/min/1.73 sq.m. Ages 50-59 = 93 mL/min/1.73 sq.m. Ages 60-69 = 85 mL/min/1.73 sq.m. Ages 70+ = 75 mL/min/1.73 sq.m. Chronic Kidney Disease: Less than 60 mL/min/1.73 square meters End Stage Renal Disease: Less than 15 mL/min/1.73 square meters Performed By: #### CBC, ADIFF, ANEU, CMP, GFR, TSH #### [place] [id number] TSH Collected: 07/20/2017 Status: F Source: [facility] 1:50 PM [facility] REPOSITORY TYPE CODE TESTS RESULT OUT OF RANGE REFERENCE UNITS LAB TSH(LOINC) 0.360-3.740 mcIU/mL TSH 0.440 Result Comment: Please note ? as of 08/23/16 new pediatric reference intervals were added for this test. Performed By: #### CBC, ADIFF, ANEU, CMP, GFR, TSH #### [address] [address] UA Collected: 07/20/2017 Status: F Source: [facility] 1:50 PM [facility] REPOSITORY TYPE CODE TESTS RESULT OUT OF RANGE REFERENCE UNITS LAB SPCUA(ZULMA NC) UA Specimen Type Clean Catch LAB CLRUA(ZULMA NC) UA Color Yellow LAB APPUA(ZULMA NC) UA Appear Clear LAB SGUA(LOIN C) UA Spec Unknown Grav <=1.005 LAB GLUA(LOIN Negative mg/dL C) UA Glucose Negative LAB BILUA(ZULMA Neg-Trace NC) UA Bili Negative LAB KETUA(ZULMA Neg-Trace mg/dL NC) UA Ketones Negative LAB BLDUA(ZULMA Neg-Trace NC) UA Blood Trace LAB PHUA(LOIN 5.0 - 8.0 C) UA pH 5.5 LAB PROUA(ZULMA Negative mg/dL NC) UA Protein Negative LAB UROUA(ZULMA E.U./dL NC) UA Urobilinogen 0.2 LAB NITUA(ZULMA Negative NC) UA Nitrite Negative LAB LEUUA(ZULMA Negative NC) UA Leuk Est Negative Performed By: #### UA #### [place] [address] PROGRESS Observed: 07/16/2017 Status: COMPLETED Source: [place] 2:00 PM [facility] REPOSITORY HNO ID: [id number] Author: Yun Bolaños Service: (none) Author Type: Physician Type: Progress Notes Filed: 07/24/2017 4:22 PM Note Text: [facility] [place] Consultation Note, 07/16/2017: Introduction: The patient is seen in consultation today for evaluation of COPD. This consultation is requested by ASHLEY PARIKH MD. A copy of this encounter will be made available as a report via [facility] electronic medical record to Dr. Parikh. HPI: Not short of breath at rest. Notes PLATA vacuuming, bending and lifting, gardening, walking, also limited by low back pain, seeing Pain Management and Rx includes opiates and injections. Back pain associated with urinary incontinence. No stairs in home. This winter I coughed all the time with sinus, brown sputum; but otherwise not much cough. No hemoptysis. Notes wheezing sometimes. Triggers include frigid cold air, hot/humid air and upper respiratory infections. Has required hospital admission for heart disease and surgery, TIAs; not for pulmonary complaints. 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 PAST SURGICAL HISTORY Procedure Laterality Date - APPENDECTOMY - CABG, ARTERY-VEIN, THREE CABG, three grafts - CT BRAIN WO CONTRAST 10/24/2014 mild to moderate diffuse atrophy - EKG 12 LEAD 10/25/2014 sinus bradycardia - LIGATE FALLOPIAN TUBE Tubal ligation - POLYSOMNOGRAM(DIAG) 51663 12/07/2014 - REMOVAL GALLBLADDER Cholecystectomy - REMOVAL OF TONSILS,<12 Y/O Tonsillectomy - THYROIDECTOMY total - TRANSCATH STENT ADDN VESSEL,PERCUT Transcath stent addn vessel percut, x3 - TRANSCATH STENT INIT VESSEL,PERCUT Transcath stent init vessel percut FAMILY HISTORY Problem Relation Age of Onset - Alcohol/Drug Father - Cancer Mother - Cancer Father - Cancer Sister - Coronary Artery Disease Mother - Coronary Artery Disease Sister - Diabetes Mother - Diabetes Father - Diabetes Sister - Diabetes Brother - Ischemic Heart Disease Mother - Ischemic Heart Disease Father - Ischemic Heart Disease Sister - Stroke Mother Social History Marital status: Spouse name: Years of education: Number of children: Occupational History Occupation Employer Comment 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 Social History Main Topics Smoking status: Current Every Day Smoker Packs/day: 4.00 Years: 58.00 Types: Cigarettes Start date: 1957 Smokeless tobacco: Never Used Comment: Reduced to 1 PPD from 4 PPD. I can't tell you I'll ever quit. Parents smoked in childhood home, and has lived with smokers as adult. Alcohol use: No Drug use: No Sexual activity: Yes Partners with: Male Immunization History Administered Date(s) Administered Influenza Seasonal - High Dose - Age 65+ 11/15/2016 Pneumococcal Vac Conjugate(#7 thru MAY 2009 then #13 thereafter) 11/13/2013 Pneumococcal-13 Vac Conjugate 04/25/2015 Deferred Date(s) Deferred Influenza Seasonal - High Dose - Age 65+ 11/15/2016 MEDICATIONS and ALLERGIES: Reviewed, updated and reconciled with the patient today, as noted in the medication and allergy sections of the encounter. ROS: Reviewed with patient, confirmed as documented by Maria Luisa Valenzuela LPN. TO PHYSICAL EXAMINATION: BP 122/62 Pulse 69 Resp 16 Ht 5' 1 (1.55m) Wt 160 lb (72.6kg) SpO2 95% BMI 30.25 kg/(m2). Gen: No acute distress. Cooperative with examination. Mildly obese. ENT: Sclerae clear. Nares clear. Oral hygeine good. Pharynx clear. Resp: No stridor, accessory respiratory muscle use, supra- sternal or intercostal retractions. A-P diameter normal. No crackles, wheezes, rubs. CV: Regular rythm. Heart tones normal. No carotid bruit. Radial pulses normal. Abd: Not distended. MSK: No kyphoscoliosis. Ext: Warm and well perfused. No clubbing, cyanosis, edema, sclerodactyly, Raynaud's. Skin: No rash, eczema, urticaria, telangiectasia, ecchymoses. Lymph: No adenopathy in neck, supra-clavicular fossae. Endo: No goiter, exophthalmos, onycholysis. Neuro: Mental status normal. Affect normal. No tremor. DATA REVIEW: PFT 07/16/2017 06/15/2006 ? Pre ? ?Ricki ?% Ref ? ? FVC ?Liters ? ? ? 2.64 ?2.04 ?77 2.96, 104 FEV1 ? ? ? Liters ? ? ? 1.99 ? ? ? 1.53 ?77 2.27, 100 FEV1/FVC ? % ? 76 ?75 0.76 ILS53-00 ?L/s ? ? ? 1.73 ?1.18 ?68 1.77, 74 MRV880% ? ?Sec ?8.07 8.60 CXR recently done at [facility], unable for review at this time. : IMPRESSION/RECOMMEND: 1. Clinical presentation is consistent with emphysema, chronic bronchitis/cCOPD, MODERATE IN DEGREE. Standard of care treatment includes: - Annual Influenza vaccination ideally recommended between November 23 and December 24 every year. - Pneumococcal vaccination up to date. - Most important factor to preserve lung function is to stop smoking. Any other treatment may relieve symptoms and decrease frequency of flare ups, but does not slow progression of disease. 2. Tobacco use disorder, continuous. RECOMMEND: - Smoking cessation was discussed, including Nicotine Replacement Therapies, Varenicline and Behavior Modification. - The medical conditions adversely affected by cigarette use include: COPD, Emphysema and Lung Cancer. - The patient is currently not ready to quit. - Therefore, I spent less than 3 minutes in smoking cessation counseling, exclusive of any other counseling during this visit. - Combivent 1 inhalation as needed for rescue relief of shortness of breath or wheezing, up to 4 times daily. - Re-assess symptoms and lung function in 2-3 months. Further recommendations to follow that appointemnt. Yun Bolaños MD, [facility] [place] [facility] [address] [place], [place] [address] P: [phone] F: [phone] [email or web address] CNOV Observed: 07/16/2017 Status: COMPLETED Source: [place] 1:30 PM [facility] REPOSITORY Office Visit (PULMWS) CHARISSA WALLACE ([id number]) 1945 F Date Time Provider Department 07/16/17 1:30 PM YUN BOLAÑOS During your visit today, we recorded the following information about you: Pulse Respiration Blood pressure Weight 69/minute 16/minute 122/62 72.6 kg Height 1.549 m Maria Luisa Valenzuela LPN 07/16/2017 1:26 PM Signed Intake information documented in the prior visit with Sophia Garcia CRT today. Maria Luisa Valenzuela LPN 07/16/2017 1:54 PM Attested Attestation signed by Yun Bolaños at 07/16/2017 2:00 PM Reviewed with patient, confirmed as documented by Maria Luisa Valenzuela LPN . TO ROS: General: Generally feels well. Appetite good. Eyes, Ears, nose, throat: denies post nasal drip. denies rhinorrhea. denies purulent nasal discharge. notes epistaxis. denies hoarseness. Vision stable. Cardiac: denies angina, denies edema, notes orthopnea. GI: notes heartburn. denies dysphagia. denies diarrhea. 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 denies hesitancy. denies nocturia. Menses: post menopausal Musculoskeletal: notes arthritis and back pain. Neuro: denies headache, denies focal weakness. denies tremor. Skin: denies rash. Otherwise negative. Yun Bolaños MD 07/24/2017 4:22 PM [address] [facility] [place] Consultation Note, 07/16/2017: Introduction: The patient is seen in consultation today for evaluation of COPD. This consultation is requested by ASHLEY PARIKH MD. A copy of this encounter will be made available as a report via [email or web address] electronic medical record to Dr. Parikh. HPI: Not short of breath at rest. Notes PLATA vacuuming, bending and lifting, gardening, walking, also limited by low back pain, seeing Pain Management and Rx includes opiates and injections. Back pain associated with urinary incontinence. No stairs in home. This winter I coughed all the time with sinus, brown sputum; but otherwise not much cough. No hemoptysis. Notes wheezing sometimes. Triggers include frigid cold air, hot/humid air and upper respiratory infections. Has required hospital admission for heart disease and surgery, TIAs; not for pulmonary complaints. 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 PAST SURGICAL HISTORY Procedure Laterality Date - APPENDECTOMY - CABG, ARTERY-VEIN, THREE CABG, three grafts - CT BRAIN WO CONTRAST 10/24/2014 mild to moderate diffuse atrophy - EKG 12 LEAD 10/25/2014 sinus bradycardia - LIGATE FALLOPIAN TUBE Tubal ligation - POLYSOMNOGRAM(DIAG) 00594 12/07/2014 - REMOVAL GALLBLADDER Cholecystectomy - REMOVAL OF TONSILS,<12 Y/O Tonsillectomy - THYROIDECTOMY total - TRANSCATH STENT ADDN VESSEL,PERCUT -2009 Transcath stent addn vessel percut, x3 - TRANSCATH STENT INIT VESSEL,PERCUT -2009 Transcath stent init vessel percut FAMILY HISTORY Problem Relation Age of Onset - Alcohol/Drug Father - Cancer Mother - Cancer Father - Cancer Sister - Coronary Artery Disease Mother - Coronary Artery Disease Sister - Diabetes Mother - Diabetes Father - Diabetes Sister - Diabetes Brother - Ischemic Heart Disease Mother - Ischemic Heart Disease Father - Ischemic Heart Disease Sister - Stroke Mother Social History Marital status: Spouse name: Years of education: Number of children: Occupational History 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 Social History Main Topics Smoking status: Current Every Day Smoker Packs/day: 4.00 Years: 58.00 Types: Cigarettes Start date: 1959 Smokeless tobacco: Never Used Comment: Reduced to 1 PPD from 4 PPD. I can't tell you I'll ever quit. Parents smoked in childhood home, and has lived with smokers as adult. Alcohol use: No Drug use: No Sexual activity: Yes Partners with: Male Immunization History Administered Date(s) Administered Influenza Seasonal - High Dose - Age 65+ 11/15/2016 Pneumococcal Vac Conjugate(#7 thru MAY 2009 then #13 thereafter) 11/13/2013 Pneumococcal-13 Vac Conjugate 04/25/2015 Deferred Date(s) Deferred Influenza Seasonal - High Dose - Age 65+ 11/15/2016 MEDICATIONS and ALLERGIES: Reviewed, updated and reconciled with the patient today, as noted in the medication and allergy sections of the encounter. ROS: Reviewed with patient, confirmed as documented by Maria Luisa Valenzuela LPN. TO PHYSICAL EXAMINATION: BP 122/62 Pulse 69 Resp 16 Ht 5' 1 (1.55m) Wt 160 lb (72.6kg) SpO2 95% BMI 30.25 kg/(m2). Gen: No acute distress. Cooperative with examination. Mildly obese. ENT: Sclerae clear. Nares clear. Oral hygeine good. Pharynx clear. Resp: No stridor, accessory respiratory muscle use, supra- sternal or intercostal retractions. A-P diameter normal. No crackles, wheezes, rubs. CV: Regular rythm. Heart tones normal. No carotid bruit. Radial pulses normal. Abd: Not distended. MSK: No kyphoscoliosis. Ext: Warm and well perfused. No clubbing, cyanosis, edema, sclerodactyly, Raynaud's. Skin: No rash, eczema, urticaria, telangiectasia, ecchymoses. Lymph: No adenopathy in neck, supra-clavicular fossae. Endo: No goiter, exophthalmos, onycholysis. Neuro: Mental status normal. Affect normal. No tremor. DATA REVIEW: PFT 07/16/2017 06/15/2006 ? Pre ? ?Ricki ?% Ref ? ? FVC ?Liters ? ? ? 2.64 ?2.04 ?77 2.96, 104 FEV1 ? ? ? Liters ? ? ? 1.99 ? ? ? 1.53 ?77 2.27, 100 FEV1/FVC ? % ? 76 ?75 0.76 [id number] ?L/s ? ? ? 1.73 ?1.18 ?68 1.77, 74 CRV541% ? ?Sec ?8.07 8.60 CXR recently done at [facility], unable for review at this time. : IMPRESSION/RECOMMEND: 1. Clinical presentation is consistent with emphysema, chronic bronchitis/cCOPD, MODERATE IN DEGREE. Standard of care treatment includes: - Annual Influenza vaccination ideally recommended between November 23 and December 24 every year. - Pneumococcal vaccination up to date. - Most important factor to preserve lung function is to stop smoking. Any other treatment may relieve symptoms and decrease frequency of flare ups, but does not slow progression of disease. 2. Tobacco use disorder, continuous. RECOMMEND: - Smoking cessation was discussed, including Nicotine Replacement Therapies, Varenicline and Behavior Modification. - The medical conditions adversely affected by cigarette use include: COPD, Emphysema and Lung Cancer. - The patient is currently not ready to quit. - Therefore, I spent less than 3 minutes in smoking cessation counseling, exclusive of any other counseling during this visit. - Combivent 1 inhalation as needed for rescue relief of shortness of breath or wheezing, up to 4 times daily. - Re-assess symptoms and lung function in 2-3 months. Further recommendations to follow that appointemnt. Yun Bolaños MD, [facility] [place] [address] P: [phone] F: [phone] [email or web address] . Yun Bolaños MD 07/16/2017 2:34 PM Addendum Clinical evaluation is consistent with chronic bronchitis/cCOPD, MODERATE IN DEGREE. Standard of care treatment includes: - Pneumoccocal vaccines (done) and Annual Influenza vaccination ideally recommended between November 23 and December 24 every year. - Most important factor to preserve lung function is to stop smoking. Any other treatment may relieve symptoms and decrease frequency of flare ups, but does not slow progression of disease. - Combivent 1 inhalation as needed for rescue relief of shortness of breath or wheezing, up to 4 times daily. - Re-assess symptoms and lung function in 2-3 months. Further recommendations to follow that appointemnt. Yun Bolaños MD, [facility] [place] [id number] P: [phone] F: [phone] [email or web address] . 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] Other Visit Diagnoses:Pulmonary emphysema, unspecified emphysema type (HCC) [J43.9] Tobacco dependence [F17.200] Centrilobular emphysema (HCC) [J43.2] Order(s):tiotropium-olodaterol (STIOLTO RESPIMAT) 2.5-2.5 mcg/actuation mistInhale 1 Puff as instructed once daily.Disp: 1 InhalerRfl: 3 ipratropium-albuterol (COMBIVENT RESPIMAT) 20-100 mcg/actuation mistInhale 1 Puff as instructed four times daily as needed.Disp: 1 CartridgeRfl: 3 SPIROMETRY BASELINE ONLY [[id number]] Order #: [id number] FUTURE Prescriptions as of 07/16/2017 Sig: X GABAPENTIN 300 MG CAPSULE Take 1 capsule by mouth three* LORAZEPAM 1 MG TABLET Take 1 tablet by mouth four t* SODIUM CHLORIDE 0.65 % NASAL * Use 1 Garrett in the nose as ne* FLUTICASONE 50 MCG/ACTUATION * Use 2 Sprays in each nostril * ATENOLOL 50 MG TABLET Take 0.5 tablets by mouth onc* ONDANSETRON 4 MG DISINTEGRATI* DISSOLVE ONE TABLET IN MOUTH * COMPOUNDED PRESCRIPTION Powered wheelchair. LEVOTHYROXINE 75 MCG TABLET Take 1 tablet by mouth once d* CLOPIDOGREL 75 MG TABLET Take 1 tablet by mouth every * LOVASTATIN 20 MG TABLET Take 1 tablet by mouth once d* LISINOPRIL 40 MG TABLET Take 1 tablet by mouth once d* COMPOUNDED PRESCRIPTION Lift chair AMLODIPINE 5 MG TABLET Take 1 tablet by mouth once d* CITALOPRAM 40 MG TABLET Takes one tablet by mouth at * HYDROCODONE 5 MG-ACETAMINOPHE* Take 1 tablet by mouth every * BISACODYL 5 MG TABLET Take 1 tablet by mouth as nee* ESOMEPRAZOLE MAGNESIUM 40 MG * Take 1 capsule by mouth once * CALCIUM CARB 600 MG(1,500 MG)* Take 600 mg by mouth once mildred* SALIVA STIMULANT COMBINATION * Use as instructed twice katty* ACETAMINOPHEN 500 MG TABLET Take 1 tablet by mouth every * * ASPIRIN 81 MG CHEWABLE TABLET Take 1 tablet by mouth once d* * PLUS 27 MG-1 MG TABL* Take one(1) tablet daily. TIOTROPIUM 2.5 MCG-OLODATEROL* Inhale 1 Puff as instructed o* IPRATROPIUM 20 MCG-ALBUTEROL * Inhale 1 Puff as instructed f* Medication notes this encounter ISOSORBIDE MONONITRATE ER 30 MG TABLET,EXTENDED RELEASE 24 HR >> Yun Bolaños MD 07/16/2017 1:58 PM Severe headache. Problem List As Of Date 07/16/2017 Noted Resolved Abnormal mammogram, unspecified [R92.8] INVALID FOR* More... Sebaceous cyst [L72.3] INVALID FOR*06/05/2015 SUMMARY [V999.95] INVALID FOR* Priority: A More... S/P CABG (coronary artery bypass graft) [Z95.1] INVALID FOR* Priority: B More... CAD (coronary artery disease) of bypass graft [*INVALID FOR* Priority: B More... Hypertension [I10] INVALID FOR* Priority: E More... 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 Postsurgical percutaneous transluminal coronary*INVALID FOR* More... Tobacco dependence [F17.200] INVALID FOR* More... Hypothyroidism [E03.9] INVALID FOR* More... Chronic pain [G89.29] INVALID FOR* More... GERD (gastroesophageal reflux disease) [K21.9] INVALID FOR* More... 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 Major depression (HCC) [F32.9] INVALID FOR* More... Anxiety [F41.9] INVALID FOR* More... Obstructive sleep apnea [G47.33] INVALID FOR* More... Notes for Staff Discussed this visit Other instructions from your clinician: Clinical evaluation is consistent with chronic bronchitis/cCOPD, MODERATE IN DEGREE. Standard of care treatment includes: - Pneumoccocal vaccines (done) and Annual Influenza vaccination ideally recommended between November 23 and December 24 every year. - Most important factor to preserve lung function is to stop smoking. Any other treatment may relieve symptoms and decrease frequency of flare ups, but does not slow progression of disease. - Combivent 1 inhalation as needed for rescue relief of shortness of breath or wheezing, up to 4 times daily. - Re-assess symptoms and lung function in 2-3 months. Further recommendations to follow that appointemnt. Yun Bolaños MD, [facility] [place] [facility] [address] [place] [address] P: [phone] F: [phone] [email or web address] . Visit Notes: >> Maria Luisa Valenzuela MOO [facility] Jul 16, 2017 1:23 PM Status: Signed Intake information documented in the prior visit with Sophia Garcia, MIGUEL today. >> Maria Luisa Valenzuela MOO [facility] Jul 16, 2017 1:32 PM Status: Attested ROS: General: Generally feels well. Appetite good. Eyes, Ears, nose, throat: denies post nasal drip. denies rhinorrhea. denies purulent nasal discharge. notes epistaxis. denies hoarseness. Vision stable. Cardiac: denies angina, denies edema, notes orthopnea. GI: notes heartburn. denies dysphagia. denies diarrhea. 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 denies hesitancy. denies nocturia. Menses: post menopausal Musculoskeletal: notes arthritis and back pain. Neuro: denies headache, denies focal weakness. denies tremor. Skin: denies rash. Otherwise negative. Prescriptions ordered this encounter Disp Refills Start End TIOTROPIUM 2.5 MCG-OLODATEROL 2.5 MC* 1 In* 3 07/16/2017 Route: INHALATION Sig: Inhale 1 Puff as instructed once daily. IPRATROPIUM 20 MCG-ALBUTEROL 100 MCG* 1 Ca* 3 07/16/2017 Route: INHALATION Sig: Inhale 1 Puff as instructed four times daily as needed. Medications Discontinued During This Encounter isosorbide mononitrate ER (IMDUR) 30* 30 t* 11 02/22/2014 07/16/2017 Route: ORAL Sig: Take 1 tablet by mouth once daily. Disc: Side Effects Follow Up: Discussed this visit Disposition: Return in about 3 months (around 10/16/2017). Follow-up and Disposition History Recorded Encounter Status:Closed by YUN BOLAÑOS MD on 07/24/17 PROGRESS Observed: 07/11/2017 Status: COMPLETED Source: [place] 11:42 AM [facility] REPOSITORY HNO ID: [id number] Author: Scott Hernández Service: (none) Author Type: Physician Type: Progress Notes Filed: 07/11/2017 12:06 PM Note Text: Patient presents with: burning, urgency and frequency with urination: x several months-feels bladder pressure and has leakage HPI: Incontinence symptoms for months. Wearing incontinence pads. Regular dribbling, urge incontinence, stress incontinence. Dysuria: sometimes Frequency: Yes Hematuria: No Nausea: No Fever or chills: No Back pain: chronically. Legs feel weak and numb. Mostly left leg in L4-5 distribution. Abdominal pain: sometimes pelvic pressure Prior UTI: When younger MEDICATIONS: Current Outpatient Prescriptions: gabapentin (NEURONTIN) 300 mg capsule Take 1 capsule by mouth three times daily for 30 days. LORazepam (ATIVAN) 1 mg tablet Take 1 tablet by mouth four times a week for [address] Durant sodium chloride (SALINE NASAL MIST) 0.65 % nasal spray Use 1 Garrett in the nose as needed. fluticasone (FLONASE) 50 mcg/actuation nasal spray Use 2 Sprays in each nostril once daily. Rinse mouth after use. atenolol (TENORMIN) 50 mg tablet Take 0.5 tablets by mouth once daily. ondansetron orally disintegrating (ZOFRAN ODT) 4 mg disintegrating tablet DISSOLVE ONE TABLET IN MOUTH EVERY 6 HOURS NEEDED FOR NAUSEA AND FOR VOMITING COMPOUNDED PRESCRIPTION Powered wheelchair. levothyroxine (SYNTHROID) 75 mcg tablet Take 1 tablet by mouth once daily. clopidogrel (PLAVIX) 75 mg tablet Take 1 tablet by mouth every other day. lovastatin (MEVACOR) 20 mg tablet Take 1 tablet by mouth once daily. Indications: MIXED HYPERLIPIDEMIA lisinopril (ZESTRIL, PRINIVIL) 40 mg tablet Take 1 tablet by mouth once daily. COMPOUNDED PRESCRIPTION Lift chair amLODIPine (NORVASC) 5 mg tablet Take 1 tablet by mouth once daily. citalopram (CELEXA) 40 mg tablet Takes one tablet by mouth at 8am and one-half tab at noon HYDROcodone-acetaminophen (NORCO) 5-325 mg per tablet Take 1 tablet by mouth every 6 hours as needed for Pain. Bisacodyl (DULCOLAX) 5 mg tab Take 1 tablet by mouth as needed. isosorbide mononitrate ER (IMDUR) 30 mg 24 hr tablet Take 1 tablet by mouth once daily. esomeprazole (NEXIUM) 40 mg capsule Take 1 capsule by mouth once daily. 1/2 hr before meal. CALCIUM CARB/VIT D3/MINERALS (CALCIUM CARBONATE-VIT D3-MIN) 600 mg (1,500 mg)-200 unit chew Take 600 mg by mouth once daily. Saliva Stimulant Agents Comb.3 (BIOTENE MOISTURIZING MOUTH) spry Use as instructed twice daily. acetaminophen (TYLENOL EXTRA STRENGTH) 500 mg tablet Take 1 tablet by mouth every 6 hours as needed for Pain. aspirin 81 mg ORAL chewable tablet Take 1 tablet by mouth once daily. vit/fe fumarate/fa( PLUS 27 MG-1 MG TAB) Take one(1) tablet daily. No current facility-administered medications for this visit. ALLERGIES: ALLERGIES Allergen Reactions - Dilaudid [Other] Mental Status Change - Morphine Hcl Mental Status Change - Nubain [Nalbuphine * - Orphenadrine - Penicillins Rash - Ultram [Tramadol Hc* Rash VITALS: BP 136/80 Pulse 76 Temp 36.9 ?C (98.5 ?F) (Tympanic) Resp 18 Wt 71.2 kg (157 lb) BMI 29.66 kg/m? PHYSICAL EXAM: GEN: NAD HEENT: EOMI, conjunctiva clear, moist mucous membranes HEART: regular rate and rhythm, no murmurs LUNGS: clear to auscultation, no wheezes or crackles, no increased WOB ABDOMEN: Soft, nondistended, no masses, no suprapubic tenderness BACK: No CVA tenderness ASSESSMENT/PLAN: 1. Mixed stress and urge urinary incontinence - ICD9: 788.33, ICD10: N39.46 - UA DIP B/O - trace blood only - URINE CULTURE - CONSULT TO UROLOGY Symptoms present for the last month. She does not need an emergency room evaluation for cauda equina syndrome. Scott Hernández MD CNOV Observed: 07/11/2017 Status: COMPLETED Source: [place] 11:00 AM [facility] REPOSITORY Office Visit (WSTR) MADISONCHARISSA ([id number]) 1945 F Date Time Provider Department 07/11/17 11:00 AM SCOTT HERNÁNDEZ [facility] During your visit today, we recorded the following information about you: Temperature Pulse Respiration Blood pressure 98.5 degrees 76/minute 18/minute 136/80 Weight 71.2 kg Scott Hernández MD 07/11/2017 12:06 PM Signed Patient presents with: burning, urgency and frequency with urination: x several months- feels bladder pressure and has leakage HPI: Incontinence symptoms for months. Wearing incontinence pads. Regular dribbling, urge incontinence, stress incontinence. Dysuria: sometimes Frequency: Yes Hematuria: No Nausea: No Fever or chills: No Back pain: chronically. Legs feel weak and numb. Mostly left leg in L4-5 distribution. Abdominal pain: sometimes pelvic pressure Prior UTI: When younger MEDICATIONS: Current Outpatient Prescriptions: gabapentin (NEURONTIN) 300 mg capsule Take 1 capsule by mouth three times daily for 30 days. LORazepam (ATIVAN) 1 mg tablet Take 1 tablet by mouth four times a week for [address] Durant sodium chloride (SALINE NASAL MIST) 0.65 % nasal spray Use 1 Garrett in the nose as needed. fluticasone (FLONASE) 50 mcg/actuation nasal spray Use 2 Sprays in each nostril once daily. Rinse mouth after use. atenolol (TENORMIN) 50 mg tablet Take 0.5 tablets by mouth once daily. ondansetron orally disintegrating (ZOFRAN ODT) 4 mg disintegrating tablet DISSOLVE ONE TABLET IN MOUTH EVERY 6 HOURS NEEDED FOR NAUSEA AND FOR VOMITING COMPOUNDED PRESCRIPTION Powered wheelchair. levothyroxine (SYNTHROID) 75 mcg tablet Take 1 tablet by mouth once daily. clopidogrel (PLAVIX) 75 mg tablet Take 1 tablet by mouth every other day. lovastatin (MEVACOR) 20 mg tablet Take 1 tablet by mouth once daily. Indications: MIXED HYPERLIPIDEMIA lisinopril (ZESTRIL, PRINIVIL) 40 mg tablet Take 1 tablet by mouth once daily. COMPOUNDED PRESCRIPTION Lift chair amLODIPine (NORVASC) 5 mg tablet Take 1 tablet by mouth once daily. citalopram (CELEXA) 40 mg tablet Takes one tablet by mouth at 8am and one-half tab at noon HYDROcodone-acetaminophen (NORCO) 5-325 mg per tablet Take 1 tablet by mouth every 6 hours as needed for Pain. Bisacodyl (DULCOLAX) 5 mg tab Take 1 tablet by mouth as needed. isosorbide mononitrate ER (IMDUR) 30 mg 24 hr tablet Take 1 tablet by mouth once daily. esomeprazole (NEXIUM) 40 mg capsule Take 1 capsule by mouth once daily. 1/2 hr before meal. CALCIUM CARB/VIT D3/MINERALS (CALCIUM CARBONATE-VIT D3-MIN) 600 mg (1,500 mg)-200 unit chew Take 600 mg by mouth once daily. Saliva Stimulant Agents Comb.3 (BIOTENE MOISTURIZING MOUTH) spry Use as instructed twice daily. acetaminophen (TYLENOL EXTRA STRENGTH) 500 mg tablet Take 1 tablet by mouth every 6 hours as needed for Pain. aspirin 81 mg ORAL chewable tablet Take 1 tablet by mouth once daily. vit/fe fumarate/fa( PLUS 27 MG-1 MG TAB) Take one(1) tablet daily. No current facility-administered medications for this visit. ALLERGIES: ALLERGIES Allergen Reactions - Dilaudid [Other] Mental Status Change - Morphine Hcl Mental Status Change - Nubain [Nalbuphine * - Orphenadrine - Penicillins Rash - Ultram [Tramadol Hc* Rash VITALS: BP 136/80 Pulse 76 Temp 36.9 ?C (98.5 ?F) (Tympanic) Resp 18 Wt 71.2 kg (157 lb) BMI 29.66 kg/m? PHYSICAL EXAM: GEN: NAD HEENT: EOMI, conjunctiva clear, moist mucous membranes HEART: regular rate and rhythm, no murmurs LUNGS: clear to auscultation, no wheezes or crackles, no increased WOB ABDOMEN: Soft, nondistended, no masses, no suprapubic tenderness BACK: No CVA tenderness ASSESSMENT/PLAN: 1. Mixed stress and urge urinary incontinence - ICD9: 788.33, ICD10: N39.46 - UA DIP B/O - trace blood only - URINE CULTURE - CONSULT TO UROLOGY Symptoms present for the last month. She does not need an emergency room evaluation for cauda equina syndrome. Scott Hernández MD Referring Provider: SELF [[id number]] Allergies As of Date: 07/11/2017 Noted Allergy Reaction dilaudid [Other] 06/09/2006 1 - Mental Status Change MORPHINE HCL 06/09/2006 1 - Mental Status Change NUBAIN (NALBUPHINE HCL) 06/09/2006 ORPHENADRINE 06/09/2006 PENICILLINS 06/09/2006 2 - Rash ULTRAM (TRAMADOL HCL) 06/09/2006 2 - Rash Date Reviewed: 07/11/2017 Reviewed by: Amparo Dickson LPN - Fully Assessed Reason for Visit: burning, urgency and frequency with urination [Other] Cmt: x several months-feels bladder pressure and has leakage Primary Visit Diagnosis:Mixed stress and urge urinary incontinence [N39.46] Order(s):UA DIP B/O [[id number]] Order #: [id number] URINE CULTURE [SQURCUL] Order #: [id number] CONSULT TO UROLOGY [9041] Order #: [id number]: 1 Prescriptions as of 07/11/2017 Sig: GABAPENTIN 300 MG CAPSULE Take 1 capsule by mouth three* LORAZEPAM 1 MG TABLET Take 1 tablet by mouth four t* SODIUM CHLORIDE 0.65 % NASAL * Use 1 Garrett in the nose as ne* FLUTICASONE 50 MCG/ACTUATION * Use 2 Sprays in each nostril * ATENOLOL 50 MG TABLET Take 0.5 tablets by mouth onc* ONDANSETRON 4 MG DISINTEGRATI* DISSOLVE ONE TABLET IN MOUTH * COMPOUNDED PRESCRIPTION Powered wheelchair. LEVOTHYROXINE 75 MCG TABLET Take 1 tablet by mouth once d* CLOPIDOGREL 75 MG TABLET Take 1 tablet by mouth every * LOVASTATIN 20 MG TABLET Take 1 tablet by mouth once d* LISINOPRIL 40 MG TABLET Take 1 tablet by mouth once d* COMPOUNDED PRESCRIPTION Lift chair AMLODIPINE 5 MG TABLET Take 1 tablet by mouth once d* CITALOPRAM 40 MG TABLET Takes one tablet by mouth at * HYDROCODONE 5 MG-ACETAMINOPHE* Take 1 tablet by mouth every * BISACODYL 5 MG TABLET Take 1 tablet by mouth as nee* ISOSORBIDE MONONITRATE ER 30 * Take 1 tablet by mouth once d* ESOMEPRAZOLE MAGNESIUM 40 MG * Take 1 capsule by mouth once * CALCIUM CARB 600 MG(1,500 MG)* Take 600 mg by mouth once mildred* SALIVA STIMULANT COMBINATION * Use as instructed twice katty* ACETAMINOPHEN 500 MG TABLET Take 1 tablet by mouth every * * ASPIRIN 81 MG CHEWABLE TABLET Take 1 tablet by mouth once d* * PLUS 27 MG-1 MG TABL* Take one(1) tablet daily. Problem List As Of Date 07/11/2017 Noted Resolved Abnormal mammogram, unspecified [R92.8] INVALID FOR* More... Sebaceous cyst [L72.3] INVALID FOR*06/05/2015 SUMMARY [V999.95] INVALID FOR* Priority: A More... S/P CABG (coronary artery bypass graft) [Z95.1] INVALID FOR* Priority: B More... CAD (coronary artery disease) of bypass graft [*INVALID FOR* Priority: B More... Hypertension [I10] INVALID FOR* Priority: E More... 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 Postsurgical percutaneous transluminal coronary*INVALID FOR* More... Tobacco dependence [F17.200] INVALID FOR* More... Hypothyroidism [E03.9] INVALID FOR* More... Chronic pain [G89.29] INVALID FOR* More... GERD (gastroesophageal reflux disease) [K21.9] INVALID FOR* More... 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 Major depression (HCC) [F32.9] INVALID FOR* More... Anxiety [F41.9] INVALID FOR* More... Obstructive sleep apnea [G47.33] INVALID FOR* More... Encounter Status:Closed by SCOTT HERNÁNDEZ MD on 07/11/17 Observed: 07/11/2017 Status: F Source: [place] URINE CULTURE 12:06 AM [facility] REPOSITORY Sp. Request/Comment: - Specimen received in preservative Culture Result - <10,000 CFU/ml Three or more organisms, no one type predominant, suggesting contamination during collection. Recollect if clinically indicated. Performed By: #### URCUL #### [facility] [address] [place], [place] [address] CNPTOUTREACH Observed: 07/07/2017 Status: COMPLETED Source: LINN 12:00 AM [facility] REPOSITORY Patient Outreach (FAMPST) CHARISSA WALLACE ([id number]) 1945 F Date Time Provider Department 07/07/17 [facility] During your visit today, we recorded the following information about you: Allergies As of Date: 07/07/2017 Noted Allergy Reaction dilaudid [Other] 06/09/2006 1 - Mental Status Change MORPHINE HCL 06/09/2006 1 - Mental Status Change NUBAIN (NALBUPHINE HCL) 06/09/2006 ORPHENADRINE 06/09/2006 PENICILLINS 06/09/2006 2 - Rash ULTRAM (TRAMADOL HCL) 06/09/2006 2 - Rash Date Reviewed: 06/18/2017 Reviewed by: Pinky Contreras - Fully Assessed Visit Diagnosis:Medication management [Z79.899] Order(s):BASIC METABOLIC PNL [SQBMP] Order #: [id number] FUTURE Prescriptions as of 07/07/2017 Sig: X GABAPENTIN 300 MG CAPSULE Take 1 capsule by mouth three* LORAZEPAM 1 MG TABLET Take 1 tablet by mouth four t* SODIUM CHLORIDE 0.65 % NASAL * Use 1 Garrett in the nose as ne* FLUTICASONE 50 MCG/ACTUATION * Use 2 Sprays in each nostril * ATENOLOL 50 MG TABLET Take 0.5 tablets by mouth onc* ONDANSETRON 4 MG DISINTEGRATI* DISSOLVE ONE TABLET IN MOUTH * COMPOUNDED PRESCRIPTION Powered wheelchair. CLOPIDOGREL 75 MG TABLET Take 1 tablet by mouth every * LOVASTATIN 20 MG TABLET Take 1 tablet by mouth once d* LISINOPRIL 40 MG TABLET Take 1 tablet by mouth once d* X LEVOTHYROXINE 75 MCG TABLET Take 1 tablet by mouth once d* COMPOUNDED PRESCRIPTION Lift chair AMLODIPINE 5 MG TABLET Take 1 tablet by mouth once d* CITALOPRAM 40 MG TABLET Takes one tablet by mouth at * HYDROCODONE 5 MG-ACETAMINOPHE* Take 1 tablet by mouth every * BISACODYL 5 MG TABLET Take 1 tablet by mouth as nee* X ISOSORBIDE MONONITRATE ER 30 * Take 1 tablet by mouth once d* ESOMEPRAZOLE MAGNESIUM 40 MG * Take 1 capsule by mouth once * CALCIUM CARB 600 MG(1,500 MG)* Take 600 mg by mouth once mildred* SALIVA STIMULANT COMBINATION * Use as instructed twice katty* ACETAMINOPHEN 500 MG TABLET Take 1 tablet by mouth every * * ASPIRIN 81 MG CHEWABLE TABLET Take 1 tablet by mouth once d* * PLUS 27 MG-1 MG TABL* Take one(1) tablet daily. Problem List As Of Date 07/07/2017 Noted Resolved Abnormal mammogram, unspecified [R92.8] INVALID FOR* More... Sebaceous cyst [L72.3] INVALID FOR*06/05/2015 SUMMARY [V999.95] INVALID FOR* Priority: A More... S/P CABG (coronary artery bypass graft) [Z95.1] INVALID FOR* Priority: B More... CAD (coronary artery disease) of bypass graft [*INVALID FOR* Priority: B More... Hypertension [I10] INVALID FOR* Priority: E More... 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 Postsurgical percutaneous transluminal coronary*INVALID FOR* More... Tobacco dependence [F17.200] INVALID FOR* More... Hypothyroidism [E03.9] INVALID FOR* More... Chronic pain [G89.29] INVALID FOR* More... GERD (gastroesophageal reflux disease) [K21.9] INVALID FOR* More... 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 Major depression (HCC) [F32.9] INVALID FOR* More... Anxiety [F41.9] INVALID FOR* More... Obstructive sleep apnea [G47.33] INVALID FOR* More... Encounter Status:Closed by BHAVIN OCHOA on 11/20/17 SPINE LUMBAR Observed: 06/29/2017 Status: F Source: [place] (ROUTINE) 4:59 PM [facility] [place] [facility] Imaging Services [facility] [place] [address] Spine Lumbar (Routine) MR#: [id number] Acct: [id number] Name: CHARISSA WALLACE Rep #: [id number] : 1945 F 72 From: Hany Desai MD PCP: Ashley Parikh MD Status: REG CLI Study: Spine Lumbar (Routine) Date of Exam: 06/29/17 Exam# [id number] Ordering Dr: Georgia Aguilar MD STUDY: MRI LUMBAR SPINE WITHOUT CONTRAST REASON FOR EXAM: Female, 72 years old. Left radiculopathy TECHNIQUE: Standardized fat and water weighted pulse sequences were obtained in the sagittal and axial planes. COMPARISON: None FINDINGS: T12-L1: Normal endplates. Normal disc height, hydration and morphology. Normal bilateral facet joints. Normal central canal and bilateral lateral recesses. Normal bilateral intervertebral neural foramina. Normal lumbar lordosis. There is no substantial scoliosis. Normal conus medullaris that terminates at T12-L1 L1-2: Normal endplates. Normal disc height, hydration and morphology. Normal bilateral facet joints. Normal central canal and bilateral lateral recesses. Normal bilateral intervertebral neural foramina. L2-3: Normal endplates. Normal disc height, desiccation and minimal annular bulge.. Normal bilateral facet joints. Normal central canal and bilateral lateral recesses. Normal bilateral intervertebral neural foramina. L3-4: Normal endplates. Normal disc height, desiccation and mild annular bulge. Bilateral facet arthropathy and thickening of ligamenta flava.. Normal central canal. Moderate bilateral recess and neuroforaminal stenosis. L4-5: Normal endplates. Normal disc height, desiccation and minor annular bulge.. Bilateral facet arthropathy.. Normal central canal. Minor bilateral recess encroachment.. Normal bilateral intervertebral neural foramina. L5-S1: Normal endplates. Normal disc height, desiccation and minimal bulging disc osteophyte complex.. Mild facet arthropathy.. Normal central canal and bilateral lateral recesses. Normal bilateral intervertebral neural foramina. Normal visualized sacral ala. Normal visualized paraspinous soft tissue structures. MRI/Spine Lumbar (Routine) IMPRESSION: Mild spondylosis. Spinal stenosis at L4-5 and more severe at L3-4 secondary to bulging annuli and facet arthropathy. Electronically Signed: Hany Desai MD at 23:16 EDT , Service support , CC: Georgia Aguilar MD; Ashley Parikh MD Boiler Coverer: Signed VENOUS DUPLEX LOWER Observed: 06/22/2017 Status: F Source: [place] EXTREMITY 10:29 PM [facility] [place] [facility] Cardiovascular Services [address] [place] [address] Venous Duplex US, Unilateral 06/22/17 1429 MR#: [id number] Acct: [id number] Name: CHARISSA WALLACE Rep #: [id number] : 1945 72 From: Gustavo Rodriguez MD Attending Dr: George Schmitt M.D. Status: REG CLI Ordering Dr: George Schmitt MD Date: 06/22/17 Location: [facility] Sex: F C Admitted: Reason For Study: R/O DVT, pain RIGHT LEFT CFV is compressible, spontaneous, phasic, GSV is normal. competent and demonstrates normal CFV is compressible, spontaneous, phasic, augmentation. competent, and demonstrates normal Procedure augmentation. Exam performed in department. FV is compressible, spontaneous, phasic, The exam was diagnostic. competent and demonstrates normal A preliminary report was called and/or faxed augmentation. to Dr. Schmitt @ [phone] @ 2:45 pm. POP V is compressible, spontaneous, phasic, competent and demonstrates normal augmentation. T/P Trunk is compressible. PTV is compressible. LT PerV is compressible. Interpretation Summary Deep veins of the left lower extremity are patent and compressible segmentally. There is no evidence of left lower extremity deep vein thrombosis. Valvular competence appears intact within the proximal deep venous system on the left . The left greater saphenous vein appears patent and compressible segmentally. Ordering Physician: George Schmitt Referring Physician: George Schmitt Performed By: Janna Lala, RDCS, RVT 06/22/172228 Date Gustavo Rodriguez MD CC: Ashley Parikh MD; George Schmitt M.D. 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 Pennington is a 72 year old right handed female presented to the [facility] for an initial evaluation. Patient has been seen and referred by Dr. Ashley Parikh. Looking through the record, the initial consult was for musculoskeletal spine medicine. I explained to the patient that we are from neuromuscular center. After further explanation, she decided to pursue this consultation. The history is a bit sketchy. Her problem is mainly in her left leg, and sometimes it will go to right leg and foot. It is a pain, numbness sensation in the leg. It is the whole leg and constant. I got very little relief and I need to know what is going on.. It has been going on for at least three years, worse over the last two months. at least on daily basis, it shift to right. I have lower back and degenerative lumbar disease. I had an accident in 1985.She uses a wheelchair at home for the last six months and she uses a cane when walking for last three years. She stood up three times during the interviewing and demonstrated the pain. However, the location of pain varied from lower back to left hip, inner thighs, knee cap, top of left foot then bottom of the left foot, to the whole leg hurts. She has chronic neck pain, not as bad as back and legs. I have arthritis in my hands. She does complain numbness in hands. She has visual loss or double vision, ptosis, seizure or loss of consciousness, speech problem, swallowing problem, urinary/fecal incontinence or urgency. She does have urination frequency. She has no sleep difficulty. Looking through her records, she has been on gabapentin/neurontin (last dosage 300mg three times a day) for quite a few years. However, she does not remember this medication. She has never been on lyrica. She has been given [place] for the last couple of weeks, and she is interested to have a shot to my back for pain relief. She has been diagnosed with anxiety/depression since 1985. She apparently had an EMG done before but she could not remember when. She was told by the person who performed the test that this was not the right test for her. And even if the test showed something, there is no cure. She also reports that she had imaging (CT or MRI) done for her lower back recently, and she is upset that nobody sent you the records. We did find out the results of her CT cervcial spine performed on April 23, 2017 that showed C4/5, C5/6 and C6/7 moderate stenosis. MRI of brain was unremarkable several times a few years back. 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 - Obstructive sleep apnea 12/21/14 - Syncope 10/27/2014 - Vertigo - Vocal cord polyp Past Surgical History: PAST SURGICAL HISTORY Procedure Laterality Date - APPENDECTOMY - CABG, ARTERY-VEIN, THREE CABG, three grafts - CT BRAIN WO CONTRAST 10/24/2014 mild to moderate diffuse atrophy - EKG 12 LEAD 10/25/2014 sinus bradycardia - LIGATE FALLOPIAN TUBE Tubal ligation - POLYSOMNOGRAM(DIAG) 07190 12/07/2014 - REMOVAL GALLBLADDER Cholecystectomy - REMOVAL OF TONSILS,<12 Y/O Tonsillectomy - THYROIDECTOMY total - TRANSCATH STENT ADDN VESSEL,PERCUT Transcath stent addn vessel percut, x3 - TRANSCATH STENT INIT VESSEL,PERCUT Transcath stent init vessel percut Medications: Current Outpatient Prescriptions: LORazepam (ATIVAN) 1 mg tablet Take 1 tablet by mouth four times a week for [address] Durant sodium chloride (SALINE NASAL MIST) 0.65 % nasal spray Use 1 Garrett in the nose as needed. fluticasone (FLONASE) 50 mcg/actuation nasal spray Use 2 Sprays in each nostril once daily. Rinse mouth after use. atenolol (TENORMIN) 50 mg tablet Take 0.5 tablets by mouth once daily. ondansetron orally disintegrating (ZOFRAN ODT) 4 mg disintegrating tablet DISSOLVE ONE TABLET IN MOUTH EVERY 6 HOURS NEEDED FOR NAUSEA AND FOR VOMITING COMPOUNDED PRESCRIPTION Powered wheelchair. levothyroxine (SYNTHROID) 75 mcg tablet Take 1 tablet by mouth once daily. clopidogrel (PLAVIX) 75 mg tablet Take 1 tablet by mouth every other day. lovastatin (MEVACOR) 20 mg tablet Take 1 tablet by mouth once daily. Indications: MIXED HYPERLIPIDEMIA lisinopril (ZESTRIL, PRINIVIL) 40 mg tablet Take 1 tablet by mouth once daily. COMPOUNDED PRESCRIPTION Lift chair amLODIPine (NORVASC) 5 mg tablet Take 1 tablet by mouth once daily. citalopram (CELEXA) 40 mg tablet Takes one tablet by mouth at 8am and one-half tab at noon HYDROcodone-acetaminophen (NORCO) 5-325 mg per tablet Take 1 tablet by mouth every 6 hours as needed for Pain. Bisacodyl (DULCOLAX) 5 mg tab Take 1 tablet by mouth as needed. isosorbide mononitrate ER (IMDUR) 30 mg 24 hr tablet Take 1 tablet by mouth once daily. esomeprazole (NEXIUM) 40 mg capsule Take 1 capsule by mouth once daily. 1/2 hr before meal. CALCIUM CARB/VIT D3/MINERALS (CALCIUM CARBONATE-VIT D3-MIN) 600 mg (1,500 mg)-200 unit chew Take 600 mg by mouth once daily. Saliva Stimulant Agents Comb.3 (BIOTENE MOISTURIZING MOUTH) spry Use as instructed twice daily. acetaminophen (TYLENOL EXTRA STRENGTH) 500 mg tablet Take 1 tablet by mouth every 6 hours as needed for Pain. aspirin 81 mg ORAL chewable tablet Take 1 tablet by mouth once daily. vit/fe fumarate/fa( PLUS 27 MG-1 MG TAB) Take one(1) tablet daily. gabapentin (NEURONTIN) 100 mg capsule Takes 3 pills 3 times daily No current facility-administered medications for this visit. ALLERGIES Allergen Reactions - Dilaudid [Other] Mental Status Change - Morphine Hcl Mental Status Change - Nubain [Nalbuphine * - Orphenadrine - Penicillins Rash - Ultram [Tramadol Hc* Rash Family History: No history of neuromuscular disease. Social History: Current smoker. No significant alcohol abuse. No history of substance abuse. Occupation: retired Marital status: live with wrist hemmer REVIEW OF SYSTEMS: Positive for the following symptoms: weight gain, dry mouth, coughing, palpitation, nausea, muscle cramps in body periodically, Constitutional: Negative for fevers, chills, night sweats, or weight loss. Eyes: Negative for eye pain, dryness or floaters. ENT: Negative for decreased hearing, ringing in the ears, or mouth ulcers. Cardiovascular: Negative for chest pain, or leg edema. Gastrointestinal: Negative for abdominal pain, vomiting, diarrhea, constipation. Genitourinary: Negative for blood in urine, hesitancy, straining. Musculoskeletal: Negative for joint pain, muscle twitches. Skin: Negative for rash or itching. Hematology and oncology: No history of cancer. Endocrine: Negative for cold intolerance, heat intolerance, abnormal sweating, diabetes Psychiatry: Negative for panic attack, thoughts of suicide or hallucinations. PHYSICAL EXAMINATION: Blood pressure 130/56, pulse (!) 58, resp. rate 18, height 154.9 cm (5' 1), weight 66.7 kg (147 lb). General: Well appearing, comfortable, in no apparent distress. Neck: No masses. Full range of motion without tenderness. Respiratory: Clear to auscultation. Cardiac: Regular rate and rhythm, no murmur. No carotid bruit. Extremities: No deformities or edema. Skin: No rashes. NEUROLOGICAL EXAMINATION: Mental Status: Alert and oriented to person, place, and time Speech: fluent speech without dysarthria or aphasia. Normal repetition and naming. Cranial Nerves: II: Visual cortes full to confrontational testing. III/IV/: Pupils equal, round and reactive to light. No nystagmus. No ptosis Eye motility findings Right Left Upgaze Normal Normal Lateral gaze Normal Normal Medial gaze Normal Normal Down-gaze Normal Normal V: Normal facial sensation. VII: Normal facial symmetry and movements. VIII: Normal hearing. IX-X: Normal palatal movement. Uvula midline. XI: Normal shoulder shrug and head turning. XII: Normal tongue strength and range of motion, no deviation, atrophy or fasciculation. Motor: Normal muscle tone. No atrophy. No fasciculations. No pronator drifting. No tremor. Muscle strength Right Left Neck flexor 5 Neck extensor 5 Shoulder abductor 5 5 Elbow flexion 5 5 Elbow extension 5 5 Wrist flexion 5 5 Wrist extension 5 5 First dorsal interosseous 5 5 Abductor digiti minimi 5 5 Abductor pollicis brevis 5 5 There is an effort limited weakness noticed on examination of both legs. I am not so sure there is clearly objective weakness. With knee abduction and adduction, she complains significant pain in the left inner thigh. Reflexes: No Cha's sign. Right Left Biceps + + Triceps + + Knee jerk +++ +++ Ankle jerk + ++ Babinski Flexor Flexor Sensory examination: Pinprick: normal Vibration: normal except mild reduction at the left ankle. Proprioception: normal Coordination: Normal rapid alternating movements. No ataxia on [id number]. Gait: Not tested OUTSIDE RECORDS: none INTERNAL RECORDS: The patient's electronic medical record was reviewed. The relevant details are summarized as above. IMPRESSION/PLAN: 1. Left leg pain and difficulty in walking, associated with back pain 2. Mild cervical spine degenerative changes 3. Hyperreflexia at bilateral knees. The pain varies and it is difficult to explain. Not sure this represents a neuropathic pain due to its pattern. Proceed with EMG of the left leg (radiculopathy protocol), and MRI of thoracic and lumbar spine without contrast. We discussed about restarting neurontin (patient was at 300mg three times a day) but patient wants to talk to her PCP to find out what is going on. If there is evidence of radiculopathy, she could be referred to pain management for epidural injections. The duration of this visit was 50 minutes of [id number]-[id number] time with the patient. All questions answered. Written instructions provided. Pinky Contreras M.D., Ph.D. Staff Physician S- [facility] [address] [place] [address] CC: ASHLEY PARIKH MD [address] [facility] [address] ASHLEY PARIKH MD [address] [facility] [address] CNOV Observed: 06/18/2017 Status: COMPLETED Source: [place] 2:40 PM [facility] REPOSITORY Office Visit (NENMMN) CHARISSA WALLACE ([id number]) 1945 F Date Time Provider Department 06/18/17 2:40 PM PINKY CONTRERAS NECTMN During your visit today, we recorded the following information about you: Pulse Respiration Blood pressure Weight 58/minute 18/minute 130/56 66.7 kg Height 1.549 m Pinky Contreras 06/18/2017 6:39 PM Signed Chief Complaint: left leg pain HISTORY OF Present Illness: Ms. Pennington is a 72 year old right handed female presented to the [facility] at [facility] for an initial evaluation. Patient has been seen and referred by Dr. Ashley Parikh. Looking through the record, the initial consult was for musculoskeletal spine medicine. I explained to the patient that we are from neuromuscular center. After further explanation, she decided to pursue this consultation. The history is a bit sketchy. Her problem is mainly in her left leg, and sometimes it will go to right leg and foot. It is a pain, numbness sensation in the leg. It is the whole leg and constant. I got very little relief and I need to know what is going on.. It has been going on for at least three years, worse over the last two months. at least on daily basis, it shift to right. I have lower back and degenerative lumbar disease. I had an accident in 1985.She uses a wheelchair at home for the last six months and she uses a cane when walking for last three years. She stood up three times during the interviewing and demonstrated the pain. However, the location of pain varied from lower back to left hip, inner thighs, knee cap, top of left foot then bottom of the left foot, to the whole leg hurts. She has chronic neck pain, not as bad as back and legs. I have arthritis in my hands. She does complain numbness in hands. She has visual loss or double vision, ptosis, seizure or loss of consciousness, speech problem, swallowing problem, urinary/fecal incontinence or urgency. She does have urination frequency. She has no sleep difficulty. Looking through her records, she has been on gabapentin/neurontin (last dosage 300mg three times a day) for quite a few years. However, she does not remember this medication. She has never been on lyrica. She has been given [place] for the last couple of weeks, and she is interested to have a shot to my back for pain relief. She has been diagnosed with anxiety/depression since 1985. She apparently had an EMG done before but she could not remember when. She was told by the person who performed the test that this was not the right test for her. And even if the test showed something, there is no cure. She also reports that she had imaging (CT or MRI) done for her lower back recently, and she is upset that nobody sent you the records. We did find out the results of her CT cervcial spine performed on April 23, 2017 that showed C4/5, C5/6 and C6/7 moderate stenosis. MRI of brain was unremarkable several times a few years back. 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 - Obstructive sleep apnea 12/21/14 - Syncope 10/27/2014 - Vertigo - Vocal cord polyp Past Surgical History: PAST SURGICAL HISTORY Procedure Laterality Date - APPENDECTOMY - CABG, ARTERY-VEIN, THREE CABG, three grafts - CT BRAIN WO CONTRAST 10/24/2014 mild to moderate diffuse atrophy - EKG 12 LEAD 10/25/2014 sinus bradycardia - LIGATE FALLOPIAN TUBE Tubal ligation - POLYSOMNOGRAM(DIAG) 81670 12/07/2014 - REMOVAL GALLBLADDER Cholecystectomy - REMOVAL OF TONSILS,<12 Y/O Tonsillectomy - THYROIDECTOMY total - TRANSCATH STENT ADDN VESSEL,PERCUT -2009 Transcath stent addn vessel percut, x3 - TRANSCATH STENT INIT VESSEL,PERCUT -2009 Transcath stent init vessel percut Medications: Current Outpatient Prescriptions: LORazepam (ATIVAN) 1 mg tablet Take 1 tablet by mouth four times a week for [address] Durant sodium chloride (SALINE NASAL MIST) 0.65 % nasal spray Use 1 Garrett in the nose as needed. fluticasone (FLONASE) 50 mcg/actuation nasal spray Use 2 Sprays in each nostril once daily. Rinse mouth after use. atenolol (TENORMIN) 50 mg tablet Take 0.5 tablets by mouth once daily. ondansetron orally disintegrating (ZOFRAN ODT) 4 mg disintegrating tablet DISSOLVE ONE TABLET IN MOUTH EVERY 6 HOURS NEEDED FOR NAUSEA AND FOR VOMITING COMPOUNDED PRESCRIPTION Powered wheelchair. levothyroxine (SYNTHROID) 75 mcg tablet Take 1 tablet by mouth once daily. clopidogrel (PLAVIX) 75 mg tablet Take 1 tablet by mouth every other day. lovastatin (MEVACOR) 20 mg tablet Take 1 tablet by mouth once daily. Indications: MIXED HYPERLIPIDEMIA lisinopril (ZESTRIL, PRINIVIL) 40 mg tablet Take 1 tablet by mouth once daily. COMPOUNDED PRESCRIPTION Lift chair amLODIPine (NORVASC) 5 mg tablet Take 1 tablet by mouth once daily. citalopram (CELEXA) 40 mg tablet Takes one tablet by mouth at 8am and one-half tab at noon HYDROcodone-acetaminophen (NORCO) 5-325 mg per tablet Take 1 tablet by mouth every 6 hours as needed for Pain. Bisacodyl (DULCOLAX) 5 mg tab Take 1 tablet by mouth as needed. isosorbide mononitrate ER (IMDUR) 30 mg 24 hr tablet Take 1 tablet by mouth once daily. esomeprazole (NEXIUM) 40 mg capsule Take 1 capsule by mouth once daily. 1/2 hr before meal. CALCIUM CARB/VIT D3/MINERALS (CALCIUM CARBONATE-VIT D3-MIN) 600 mg (1,500 mg)-200 unit chew Take 600 mg by mouth once daily. Saliva Stimulant Agents Comb.3 (BIOTENE MOISTURIZING MOUTH) spry Use as instructed twice daily. acetaminophen (TYLENOL EXTRA STRENGTH) 500 mg tablet Take 1 tablet by mouth every 6 hours as needed for Pain. aspirin 81 mg ORAL chewable tablet Take 1 tablet by mouth once daily. vit/fe fumarate/fa( PLUS 27 MG-1 MG TAB) Take one(1) tablet daily. gabapentin (NEURONTIN) 100 mg capsule Takes 3 pills 3 times daily No current facility-administered medications for this visit. ALLERGIES Allergen Reactions - Dilaudid [Other] Mental Status Change - Morphine Hcl Mental Status Change - Nubain [Nalbuphine * - Orphenadrine - Penicillins Rash - Ultram [Tramadol Hc* Rash Family History: No history of neuromuscular disease. Social History: Current smoker. No significant alcohol abuse. No history of substance abuse. Occupation: retired Marital status: live with wrist hemmer REVIEW OF SYSTEMS: Positive for the following symptoms: weight gain, dry mouth, coughing, palpitation, nausea, muscle cramps in body periodically, Constitutional: Negative for fevers, chills, night sweats, or weight loss. Eyes: Negative for eye pain, dryness or floaters. ENT: Negative for decreased hearing, ringing in the ears, or mouth ulcers. Cardiovascular: Negative for chest pain, or leg edema. Gastrointestinal: Negative for abdominal pain, vomiting, diarrhea, constipation. Genitourinary: Negative for blood in urine, hesitancy, straining. Musculoskeletal: Negative for joint pain, muscle twitches. Skin: Negative for rash or itching. Hematology and oncology: No history of cancer. Endocrine: Negative for cold intolerance, heat intolerance, abnormal sweating, diabetes Psychiatry: Negative for panic attack, thoughts of suicide or hallucinations. PHYSICAL EXAMINATION: Blood pressure 130/56, pulse (!) 58, resp. rate 18, height 154.9 cm (5' 1), weight 66.7 kg (147 lb). General: Well appearing, comfortable, in no apparent distress. Neck: No masses. Full range of motion without tenderness. Respiratory: Clear to auscultation. Cardiac: Regular rate and rhythm, no murmur. No carotid bruit. Extremities: No deformities or edema. Skin: No rashes. NEUROLOGICAL EXAMINATION: Mental Status: Alert and oriented to person, place, and time Speech: fluent speech without dysarthria or aphasia. Normal repetition and naming. Cranial Nerves: II: Visual cortes full to confrontational testing. III/IV/: Pupils equal, round and reactive to light. No nystagmus. No ptosis Eye motility findings Right Left Upgaze Normal Normal Lateral gaze Normal Normal Medial gaze Normal Normal Down-gaze Normal Normal V: Normal facial sensation. VII: Normal facial symmetry and movements. VIII: Normal hearing. IX-X: Normal palatal movement. Uvula midline. XI: Normal shoulder shrug and head turning. XII: Normal tongue strength and range of motion, no deviation, atrophy or fasciculation. Motor: Normal muscle tone. No atrophy. No fasciculations. No pronator drifting. No tremor. Muscle strength Right Left Neck flexor 5 Neck extensor 5 Shoulder abductor 5 5 Elbow flexion 5 5 Elbow extension 5 5 Wrist flexion 5 5 Wrist extension 5 5 First dorsal interosseous 5 5 Abductor digiti minimi 5 5 Abductor pollicis brevis 5 5 There is an effort limited weakness noticed on examination of both legs. I am not so sure there is clearly objective weakness. With knee abduction and adduction, she complains significant pain in the left inner thigh. Reflexes: No Cha's sign. Right Left Biceps + + Triceps + + Knee jerk +++ +++ Ankle jerk + ++ Babinski Flexor Flexor Sensory examination: Pinprick: normal Vibration: normal except mild reduction at the left ankle. Proprioception: normal Coordination: Normal rapid alternating movements. No ataxia on uulkgi-bq-hwfa. Gait: Not tested OUTSIDE RECORDS: none INTERNAL RECORDS: The patient's electronic medical record was reviewed. The relevant details are summarized as above. IMPRESSION/PLAN: 1. Left leg pain and difficulty in walking, associated with back pain 2. Mild cervical spine degenerative changes 3. Hyperreflexia at bilateral knees. The pain varies and it is difficult to explain. Not sure this represents a neuropathic pain due to its pattern. Proceed with EMG of the left leg (radiculopathy protocol), and MRI of thoracic and lumbar spine without contrast. We discussed about restarting neurontin (patient was at 300mg three times a day) but patient wants to talk to her PCP to find out what is going on. If there is evidence of radiculopathy, she could be referred to pain management for epidural injections. The duration of this visit was 50 minutes of kcds-po-zyqz time with the patient. All questions answered. Written instructions provided. Pinky Contreras M.D., Ph.D. Staff Physician [facility] [place] [id number] [place] [address] CC: ASHLEY PARIKH MD [address] [facility] [id number] ASHLEY PARIKH MD [address] [facility] [id number] Pinky Contreras 06/18/2017 4:29 PM Signed Obstructive Sleep Apnea What is sleep apnea? Obstructive sleep apnea (JAIME) is a potentially serious sleep disorder that occurs when a person's breathing is interrupted during sleep. During an apnea episode, the diaphragm and chest muscles work harder as the pressure increases to open the collapsed airway. These episodes can interfere with sound sleep, reduce the flow of oxygen to vital organs, and cause heart rhythm irregularities. Who gets sleep apnea? JAIME occurs in about 25% of men and 10% of women. Excessive weight and structural abnormalities reducing the diameter of the upper airway, such as nasal obstruction, a low-hanging soft palate, enlarged tonsils, or a small jaw with an overbite are risk factors. What are the effects of sleep apnea? Significant JAIME is associated with a number of problems including hypertension, stroke, arrhythmias, cardiomyopathy (enlargement of the muscle tissue of the heart), heart failure, diabetes and heart attacks. JAIME can produce fatigue and daytime sleepiness that has been associated with job impairment, motor vehicle accidents and academic underachievement. What are the symptoms of sleep apnea? Often the first signs of JAIME are recognized not by the patient, but by the bed partner. Many of those affected have no sleep complaints. The most common symptoms include: --Snoring --Daytime sleepiness or fatigue --Restlessness during sleep --Sudden awakenings with a sensation of gasping or choking --Dry mouth or sore throat upon awakening --Intellectual impairment, such as trouble concentrating, forgetfulness, or irritability --Night sweats --Sexual dysfunction --Headaches How is sleep apnea diagnosed? The diagnosis is confirmed on an overnight sleep study called a polysomnogram (PSG) or a home sleep apnea test (HSAT). PSG is performed in a sleep laboratory and records brain wave activity, eye movements, muscle activity, heart rate, breathing patterns, and oxygen levels. HSAT is performed in the home and is limited to measures of breathing patterns and oxygen levels. This test is indicated for the confirmation of JAIME when other sleep disorders are not suspected and major medical problems affecting the heart and lungs are absent. What are the treatments for sleep apnea? All JAIME patients can benefit from the following measures. --Weight loss if overweight --Avoidance of alcohol, sleeping pills and other sedating medications --Sleeping off the back position --Treatment of nasal congestion (nasal sprays or breathing strips) --Avoidance of sleep deprivation Continuous Positive Airway Pressure (CPAP) is the preferred initial treatment in most cases. CPAP delivers pressure through a mask over the nose and/or mouth to prevent airway closure during sleep. Other modes are available for people who have difficulty tolerating CPAP. These include Bilevel Positive Airway Pressure, Auto Positive Airway Pressure (AutoPAP) and Auto/Adaptive Servo-Ventilation (ASV). Treatment of JAIME with PAP reduces daytime sleepiness and improves mood, blood pressure and quality of life. Alternatives to PAP therapy include: --Oral appliances ? requires evaluation by a dentist with expertise in the treatment of JAIME and usually reserved for milder cases --Upper airway surgery addressing blockage in the nose and/or throat- requires evaluation by an ear, nose and throat (ENT) surgeon with expertise in the treatment of JAIME --Hypoglossal Nerve Stimulation therapy ? reserved for non- obese patients unable to tolerate PAP therapy - requires evaluation by an ENT surgeon with expertise in the treatment of JAIME --Weight loss surgery for obesity Resources: [facility] Guide to Sleep Disorders by Lissa Malcolm DO National Sleep Foundation [address] [place] [address] [address] [place] [address] [email or web address] [place] [employer] [address] [place] [address], [address] [place], [place] [email or web address] Referring Provider: ASHLEY PARIKH [[id number]] Allergies As of Date: 06/18/2017 Noted Allergy Reaction dilaudid [Other] 06/09/2006 1 - Mental Status Change MORPHINE HCL 06/09/2006 1 - Mental Status Change NUBAIN (NALBUPHINE HCL) 06/09/2006 ORPHENADRINE 06/09/2006 PENICILLINS 06/09/2006 2 - Rash ULTRAM (TRAMADOL HCL) 06/09/2006 2 - Rash Date Reviewed: 06/18/2017 Reviewed by: Pinky Contreras - Fully Assessed Reason for Visit: New Patient [172] Primary Visit Diagnosis:Left leg pain [M79.605] Other Visit Diagnosis:Hyperreflexia [R29.2] Order(s):MRI THORACIC SPINE WO IVCON [2738465] Order #: [id number] FUTURE MRI LUMBAR SPINE WO IVCON [[id number]] Order #: [id number] FUTURE EMG(NEURO/NI) [[id number]] Order #: [id number]: 1 FUTURE Prescriptions as of 06/18/2017 Sig: LORAZEPAM 1 MG TABLET Take 1 tablet by mouth four t* SODIUM CHLORIDE 0.65 % NASAL * Use 1 Garrett in the nose as ne* FLUTICASONE 50 MCG/ACTUATION * Use 2 Sprays in each nostril * ATENOLOL 50 MG TABLET Take 0.5 tablets by mouth onc* ONDANSETRON 4 MG DISINTEGRATI* DISSOLVE ONE TABLET IN MOUTH * COMPOUNDED PRESCRIPTION Powered wheelchair. LEVOTHYROXINE 75 MCG TABLET Take 1 tablet by mouth once d* CLOPIDOGREL 75 MG TABLET Take 1 tablet by mouth every * LOVASTATIN 20 MG TABLET Take 1 tablet by mouth once d* LISINOPRIL 40 MG TABLET Take 1 tablet by mouth once d* COMPOUNDED PRESCRIPTION Lift chair AMLODIPINE 5 MG TABLET Take 1 tablet by mouth once d* CITALOPRAM 40 MG TABLET Takes one tablet by mouth at * HYDROCODONE 5 MG-ACETAMINOPHE* Take 1 tablet by mouth every * BISACODYL 5 MG TABLET Take 1 tablet by mouth as nee* ISOSORBIDE MONONITRATE ER 30 * Take 1 tablet by mouth once d* ESOMEPRAZOLE MAGNESIUM 40 MG * Take 1 capsule by mouth once * CALCIUM CARB 600 MG(1,500 MG)* Take 600 mg by mouth once mildred* SALIVA STIMULANT COMBINATION * Use as instructed twice katty* ACETAMINOPHEN 500 MG TABLET Take 1 tablet by mouth every * * ASPIRIN 81 MG CHEWABLE TABLET Take 1 tablet by mouth once d* * PLUS 27 MG-1 MG TABL* Take one(1) tablet daily. Problem List As Of Date 06/18/2017 Noted Resolved Abnormal mammogram, unspecified [R92.8] INVALID FOR* More... Sebaceous cyst [L72.3] INVALID FOR*06/05/2015 SUMMARY [V999.95] INVALID FOR* Priority: A More... S/P CABG (coronary artery bypass graft) [Z95.1] INVALID FOR* Priority: B More... CAD (coronary artery disease) of bypass graft [*INVALID FOR* Priority: B More... Hypertension [I10] INVALID FOR* Priority: E More... 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 Postsurgical percutaneous transluminal coronary*INVALID FOR* More... Tobacco dependence [F17.200] INVALID FOR* More... Hypothyroidism [E03.9] INVALID FOR* More... Chronic pain [G89.29] INVALID FOR* More... GERD (gastroesophageal reflux disease) [K21.9] INVALID FOR* More... 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 Major depression (HCC) [F32.9] INVALID FOR* More... Anxiety [F41.9] INVALID FOR* More... Obstructive sleep apnea [G47.33] INVALID FOR* More... Other instructions from your clinician: Obstructive Sleep Apnea What is sleep apnea? Obstructive sleep apnea (JAIME) is a potentially serious sleep disorder that occurs when a person's breathing is interrupted during sleep. During an apnea episode, the diaphragm and chest muscles work harder as the pressure increases to open the collapsed airway. These episodes can interfere with sound sleep, reduce the flow of oxygen to vital organs, and cause heart rhythm irregularities. Who gets sleep apnea? JAIME occurs in about 25% of men and 10% of women. Excessive weight and structural abnormalities reducing the diameter of the upper airway, such as nasal obstruction, a low-hanging soft palate, enlarged tonsils, or a small jaw with an overbite are risk factors. What are the effects of sleep apnea? Significant JAIME is associated with a number of problems including hypertension, stroke, arrhythmias, cardiomyopathy (enlargement of the muscle tissue of the heart), heart failure, diabetes and heart attacks. JAIME can produce fatigue and daytime sleepiness that has been associated with job impairment, motor vehicle accidents and academic underachievement. What are the symptoms of sleep apnea? Often the first signs of JAIME are recognized not by the patient, but by the bed partner. Many of those affected have no sleep complaints. The most common symptoms include: --Snoring --Daytime sleepiness or fatigue --Restlessness during sleep --Sudden awakenings with a sensation of gasping or choking --Dry mouth or sore throat upon awakening --Intellectual impairment, such as trouble concentrating, forgetfulness, or irritability --Night sweats --Sexual dysfunction --Headaches How is sleep apnea diagnosed? The diagnosis is confirmed on an overnight sleep study called a polysomnogram (PSG) or a home sleep apnea test (HSAT). PSG is performed in a sleep laboratory and records brain wave activity, eye movements, muscle activity, heart rate, breathing patterns, and oxygen levels. HSAT is performed in the home and is limited to measures of breathing patterns and oxygen levels. This test is indicated for the confirmation of JAIME when other sleep disorders are not suspected and major medical problems affecting the heart and lungs are absent. What are the treatments for sleep apnea? All JAIME patients can benefit from the following measures. --Weight loss if overweight --Avoidance of alcohol, sleeping pills and other sedating medications --Sleeping off the back position --Treatment of nasal congestion (nasal sprays or breathing strips) --Avoidance of sleep deprivation Continuous Positive Airway Pressure (CPAP) is the preferred initial treatment in most cases. CPAP delivers pressure through a mask over the nose and/or mouth to prevent airway closure during sleep. Other modes are available for people who have difficulty tolerating CPAP. These include Bilevel Positive Airway Pressure, Auto Positive Airway Pressure (AutoPAP) and Auto/Adaptive Servo-Ventilation (ASV). Treatment of JAIME with PAP reduces daytime sleepiness and improves mood, blood pressure and quality of life. Alternatives to PAP therapy include: --Oral appliances ? requires evaluation by a dentist with expertise in the treatment of JAIME and usually reserved for milder cases --Upper airway surgery addressing blockage in the nose and/or throat- requires evaluation by an ear, nose and throat (ENT) surgeon with expertise in the treatment of JAIME --Hypoglossal Nerve Stimulation therapy ? reserved for non-obese patients unable to tolerate PAP therapy - requires evaluation by an ENT surgeon with expertise in the treatment of JAIME --Weight loss surgery for obesity Resources: [facility] Guide to Sleep Disorders by Lissa Bennett DO National Sleep Foundation [facility] [address] [place] [address] [email or web address] [place] [address] [facility], [address] [place] [address] [email or web address] Medications Discontinued During This Encounter albuterol HFA (PROAIR HFA) 90 mcg/ac* 1 In* 5 05/13/2017 06/18/2017 Route: INHALATION Sig: Inhale 2 Puffs as instructed every 4 hours as needed for Wheezing/Shortness of Breath. Disc: Reason for discontinue is not on file. Benzonatate 200 mg capsule 30 c* 0 09/24/2015 06/18/2017 Route: ORAL Sig: Take 200 mg by mouth three times daily as needed for Cough. Disc: Reason for discontinue is not on file. cetirizine (ZYRTEC) 10 mg tablet 06/18/2017 Class: Historical Med Route: ORAL Sig: Take 10 mg by mouth once daily. Disc: Reason for discontinue is not on file. codeine-guaiFENesin (ROBITUSSIN AC) * 120 * 0 05/05/2016 06/18/2017 Class: Print RX Route: ORAL Sig: Take 5-10 mL by mouth four times daily as needed for Cough. May cause drowsiness. Disc: Reason for discontinue is not on file. COMPOUNDED PRESCRIPTION 1 Ea* 0 12/12/2015 06/18/2017 Class: Print RX Sig: Wrist blood pressure kit Disc: Reason for discontinue is not on file. bmuocfbcsc-valarguw-ttmiuahig b-hydr* 15 g 0 10/04/2016 06/18/2017 Route: TOPICAL Sig: Apply 1 application to affected area twice daily. Disc: Reason for discontinue is not on file. loratadine (CLARITIN) 10 mg tablet 06/18/2017 Class: Historical Med Route: ORAL Sig: Take 10 mg by mouth once daily. Disc: Reason for discontinue is not on file. predniSONE (DELTASONE) 20 mg tablet 10 t* 0 05/30/2017 06/18/2017 Si pills daily x 3 days, then 1 pill daily x 4 days. Disc: Reason for discontinue is not on file. triamcinolone acetonide (KENALOG) 0.* 30 g 0 01/22/2015 06/18/2017 Route: TOPICAL Sig: Apply 1 application to affected area three times daily. Apply to affected area. Disc: Reason for discontinue is not on file. gabapentin (NEURONTIN) 100 mg capsule 12/12/2015 06/18/2017 Class: Historical Med Sig: Takes 3 pills 3 times daily Disc: Dosage adjustment Encounter Status:Closed by PINKY CONTRERAS MD on 06/18/17 [facility] Observed: 06/12/2017 Status: COMPLETED Source: [facility] 12:00 AM CLINIC OTHER CAMPUS REPOSITORY Letter Text [facility] Cardiology [place] [address] [address] [facility] [address] Dept: [phone] Dept Chaparro Casiano MD June 12, 2017 Charissa Wallace [address] [facility] [address] 1945 Dear Charissa Wallace, We missed seeing you for your scheduled appointment with Dr. Casiano on 06/05/17 at the [facility]. Our goal is to offer the best possible care to our patients, so we are concerned when you are unable to keep a scheduled appointment. Please call us at [phone] so that we can reschedule your appointment for a day and time that will work for you. If you find it difficult to keep your appointment, please notify our office at least 24 hours in advance so that we may reschedule your appointment. We are glad that you have chosen [facility] for your cardiovascular needs and hope to continue serving you in the future. Sincerely, Chaparro Casiano MD (Signed electronically to expedite mailing) URINE DRUG SCREEN Collected: 06/11/2017 Status: F Source: [place] [facility] 12:36 PM [facility] [place] Order Comment: List of Drugs Taken or Suspected? UNK TYPE CODE TESTS RESULT OUT OF RANGE REFERENCE UNITS LAB L505.0075 TO BE Normal CONFIRMED Result Comment: CONFIRMATORY TESTING FOR ALL POSITIVE URINE DRUG SCREEN RESULTS WILL ONLY BE SENT OUT UPON PHYSICIAN ORDER. [employer] Urine Drug Screen methods provide only preliminary analytical test results. A more specific alternate chemical method must be used in order to obtain a confirmed analytical result. Gas chromatography/mass spectrometery (GC/MS) is the preferred confirmatory method. Clinical consideration and professional judgement should be applied to any drug of abuse test result, particularly when preliminary positive results are used. URINE TCA TESTING MUST BE ORDERED SEPARATELY. USE TEST MNEMONIC: [facility] LAB L505.5005 VISTA UDS PH 5 Normal LAB L505.5015 <1000 ng/mL AMPHETAMINES Normal NEGATIVE LAB L505.5025 < 200 ng/mL BARBITIURATES Normal NEGATIVE LAB L505.5035 < 200 ng/mL BENZODIAZIPINE Normal NEGATIVE LAB L505.5045 < 300 ng/mL COCAINE Normal NEGATIVE LAB L505.5055 < 500 ng/mL ECSTACY Normal NEGATIVE LAB L505.5065 < 300 ng/mL METHADONE Normal NEGATIVE LAB L505.5075 < 300 High ng/mL OPIATES POSITIVE LAB L505.5085 < 25 ng/mL PCP Normal NEGATIVE LAB L505.5095 < 50 ng/mL THC Normal NEGATIVE Performed By: #### L505.5000 #### [facility] [address] [place], [address] MISCELLANEOUS LAB Collected: 06/11/2017 Status: F Source: [place] PROCEDURE 12:36 PM [facility] [place] Order Comment: Test(s) Ordered: URINE TOXICOLOGY [id number] RUN LOWEST TEST TYPE CODE TESTS RESULT OUT OF RANGE REFERENCE UNITS LAB L801.1541 Normal [facility] TEST Result Comment: [id number] 6+OXYCODONE-BUND (ng/mL) DRUG RESULT SCREEN CUTOFF ____ Amphetamines,Urine Negative ng/mL 1000 Amphetamine test includes Amphetamine and Methamphetamine. Barbiturates Negative ng/mL 200 Benzodiazepines Negative ng/mL 200 Cannabinoid Negative ng/mL 20 Cocaine (Metab) Negative ng/mL 300 Opiates Negative ng/mL 300 Opiates test includes Codeine, Morphine, Hydromorphone, Hydrocodone. Oxycodone/Oxymorphone,Urine Negative ng/mL 300 Test includes Oxydodone and Oxymorphone. [facility] ORIGINAL REPORT ON FILE IN LAB CONTAINS ADDITIONAL TEST SITE INFORMATION. Performed By: #### L801.1541 #### [facility] [address] [place], [address] EMERGENCY DEPARTMENT Observed: 06/02/2017 Status: F Source: [place] SUMMARY 12:43 AM [facility] [place] [facility] Medical Records Department [address] [place] [address] Emergency Department Summary 06/01/17 1809 MR#: [id number] Acct: [id number] Name: CHARISSA WALLACE Rep #: [id number] : 1945 72 From: Nehemias Iqbal MD PCP: Ashley Parikh MD Status: DEP ER - ER Visit Summary Date of Service: 06/01/17 Chief Complaint: Left leg pain History of Present Illness: The patient is a [address] Parikh and has seen Dr. Aguilar in the past. She reports that she has pain in the lower back that radiates down the left leg to the level of her calf that began approximately 2 weeks ago. She reports that her back pain is chronic. She describes the leg pain as sharp. Is 10 out of 10 with walking or movement. Is 9 out of 10 at rest. She is not taking anything for pain. She denies any numbness or weakness. No problems with her bowels or her bladder. No groin numbness. No recent trauma. No fall, MVA, or change in activity. No fever or abdominal pain. Physical Examination: Vitals: Stable. Afebrile. General: A AND O x 3. NAD. Cardiovascular exam: Regular rate and rhythm, no murmur, rub or gallop. Respiratory exam: Clear to auscultation bilaterally. No wheezes or stridor. Abdominal exam: Soft, nontender, nondistended, normal bowel sounds. No peritoneal signs. Back: Diffuse moderate tenderness to palpation over the lumbar spine and the paraspinous musculature in the lumbar region. No point tenderness. Negative straight leg bilaterally. 5/5 DF, PF, EHL bilaterally. Normal sensation to light touch throughout. Extremity: No clubbing, cyanosis, or edema. Emergency Department Course and Treatment: An [facility] report was obtained which shows that her last prescription for opiates was in November 2016 and this was by Dr. Aguilar. The past year she is only had 6 prescriptions for opiates and they have all been from Dr. Aguilar. Treatment Plan: Patient will be discharged with a prescription for [place] and instructed to follow-up with Dr. Aguilar for further management of her back pain. I did discuss with the fact he may be able to do an injection that would help with her leg pain as well. She actually came to the emergency department asking for cortisone injection. Return to the emergency department for any worsening symptoms. Disposition: To home in improved and stable condition. Impression: 1. Chronic back pain. 2. Sciatica. This note was generated with Tamion dictation software. It may contain incorrect words, spelling, and punctuation that were not noted in review of the chart prior to signing ED Disposition - Plan for ED Patient: Disposition: Home or Assisted Living Chief Complaint: Lower Extremity Injury Instructions: ED Sciatica Prescriptions: Hydrocodone Bitart/Apap 5-325 [[place] 5/325] 1 - 2 tablet PO Q4H PRN PRN 5 Days #20 tablet PRN Reason: Pain Referrals: Georgia Aguilar MD [STAFF PHYSICIAN] - As soon as possible What to do if you have Problems For any increased pain, shortness of breath, bleeding, nausea or vomiting, chest pain, or any unexpected problems, contact your Primary Care Provider. Call [facility] ([phone]) or report to the closest Emergency Room. Call 911 if necessary. 06/02/17 0043 <Electronically signed by Nehemias Iqbal MD> Date Nehemias Iqbal MD Cosigner Signature (If Indicated): Date CC: Ashley Parikh MD XR HIP 3V PELV+ Observed: 05/30/2017 Status: F Source: [place] AP/LAT LT 1:41 PM [facility] REPOSITORY * * *Final Report* * * DATE OF EXAM: May 30 2017 1:41PM WOX [id number] - XR HIP 3V PELV+ AP/LAT LT / PROCEDURE REASON: multiple diagnoses * * * * Physician Interpretation * * * * EXAM: XR HIP 3V PELV+ AP/LAT RT, XR HIP 3V PELV+ AP/LAT LT HISTORY: Contusion of left hip, initial encounter Contusion of left thigh, initial encounter . VIEWS: AP and lateral both hips with AP pelvis. COMPARISON: 05/05/2016. FINDINGS: No dislocation, acute fracture or bone destruction. No significant joint space narrowing at either hip. Bones are demineralized. Narrowed distal lumbar interspaces with marginal endplate spurring and facet arthrosis. IMPRESSION: No acute bone or joint space abnormality. Bones are demineralized. Distal lumbar degenerative disease. Boiler Coverer: Jamba!B Transcribe Date/Time: May 30 2017 1:49P Dictated by : Francesca LUA MD This examination was interpreted and the report reviewed and electronically signed by: Francesca LUA MD on May 30 2017 1:52PM EST [id number] XR HIP 3V PELV+ Observed: 05/30/2017 Status: F Source: [place] AP/LAT RT 1:41 PM [facility] REPOSITORY * * *Final Report* * * DATE OF EXAM: May 30 2017 1:41PM WOX [id number] - XR HIP 3V PELV+ AP/LAT RT / PROCEDURE REASON: multiple diagnoses * * * * Physician Interpretation * * * * EXAM: XR HIP 3V PELV+ AP/LAT RT, XR HIP 3V PELV+ AP/LAT LT HISTORY: Contusion of left hip, initial encounter Contusion of left thigh, initial encounter . VIEWS: AP and lateral both hips with AP pelvis. COMPARISON: 05/05/2016. FINDINGS: No dislocation, acute fracture or bone destruction. No significant joint space narrowing at either hip. Bones are demineralized. Narrowed distal lumbar interspaces with marginal endplate spurring and facet arthrosis. IMPRESSION: No acute bone or joint space abnormality. Bones are demineralized. Distal lumbar degenerative disease. Boiler Coverer: PSCB Transcribe Date/Time: May 30 2017 1:49P Dictated by : Francesca LUA MD This examination was interpreted and the report reviewed and electronically signed by: Francesca LUA MD on May 30 2017 1:52PM EST [id number] Observed: 05/30/2017 Status: COMPLETED Source: [place] 1:17 PM [facility] REPOSITORY HNO ID: [id number] Author: Yulisa De Leon Service: (none) Author Type: (none) Type: Progress Notes Filed: 05/30/2017 1:44 PM Note Text: Radiology Service Progress Note PATIENT NAME: Charissa Wallace DATE OF SERVICE: May 30, 2017 TIME: 1:17 PM PATIENT IDENTITY VERIFICATION COMPLETED USING TWO (2) METHODS: Patient confirmed name verbally and Date of . PATIENT GENDER DATA: Female. status: : No status: NO. PATIENT RELEVANT IMPLANT DATA REVIEWED: Not Applicable RADIOLOGY DEPARTMENT: General X-ray: Exam(s) Completed: Pelvis X-Ray: Pelvis with Hip Right and left hip PERIPHERAL IV DATA: Not applicable SIGNED BY: Yulisa De Leon May 30, 2017 1:17 PM PROGRESS Observed: 05/30/2017 Status: COMPLETED Source: [place] 12:51 PM [facility] REPOSITORY HNO ID: [id number] Author: Raul Kumar (Pa) Service: (none) Author Type: Physician Smoking Pipe Liner Type: Progress Notes Filed: 05/30/2017 2:27 PM Note Text: Subjective HPI Charissa Wallace is a 72 year old female who presents with a recent h/o a fall 5 days ago. She states she was seen at the hospital and received x-rays of the C-spine with normal results. She states that she was negative for CVA workup. She now states that she has coccyx and left hip pain with pain radiating into the left leg and foot. 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 did not show signficant obstruction - Obstructive sleep apnea 12/21/14 - Syncope 10/27/2014 - Vertigo - Vocal cord polyp PAST SURGICAL HISTORY Procedure Laterality Date - APPENDECTOMY - CABG, ARTERY-VEIN, THREE CABG, three grafts - CT BRAIN WO CONTRAST 10/24/2014 mild to moderate diffuse atrophy - EKG 12 LEAD 10/25/2014 sinus bradycardia - LIGATE FALLOPIAN TUBE Tubal ligation - POLYSOMNOGRAM(DIAG) 19778 12/07/2014 - REMOVAL GALLBLADDER Cholecystectomy - REMOVAL OF TONSILS,<12 Y/O Tonsillectomy - THYROIDECTOMY total - TRANSCATH STENT ADDN VESSEL,PERCUT Transcath stent addn vessel percut, x3 - TRANSCATH STENT INIT VESSEL,PERCUT Transcath stent init vessel percut ALLERGIES Morphine Hcl; Nubain [Nalbuphine Hcl]; Orphenadrine; Penicillins; Ultram [Tramadol Hcl]; Dilaudid [Other] MEDICATIONS LORazepam (ATIVAN) 1 mg tablet Take 1 tablet by mouth four times a week for [address] Durant sodium chloride (SALINE NASAL MIST) 0.65 % nasal spray Use 1 Garrett in the nose as needed. fluticasone (FLONASE) 50 mcg/actuation nasal spray Use 2 Sprays in each nostril once daily. Rinse mouth after use. albuterol HFA (PROAIR HFA) 90 mcg/actuation inhaler Inhale 2 Puffs as instructed every 4 hours as needed for Wheezing/Shortness of Breath. atenolol (TENORMIN) 50 mg tablet Take 0.5 tablets by mouth once daily. ondansetron orally disintegrating (ZOFRAN ODT) 4 mg disintegrating tablet DISSOLVE ONE TABLET IN MOUTH EVERY 6 HOURS NEEDED FOR NAUSEA AND FOR VOMITING COMPOUNDED PRESCRIPTION Powered wheelchair. bcluznzpax-oezcwibo-bwswkvhnf b-hydrocortisone 1 % ointment Apply 1 application to affected area twice daily. levothyroxine (SYNTHROID) 75 mcg tablet Take 1 tablet by mouth once daily. clopidogrel (PLAVIX) 75 mg tablet Take 1 tablet by mouth every other day. lovastatin (MEVACOR) 20 mg tablet Take 1 tablet by mouth once daily. Indications: MIXED HYPERLIPIDEMIA lisinopril (ZESTRIL, PRINIVIL) 40 mg tablet Take 1 tablet by mouth once daily. COMPOUNDED PRESCRIPTION Lift chair codeine-guaiFENesin (ROBITUSSIN AC) 10-100 mg/5 mL syrup Take 5-10 mL by mouth four times daily as needed for Cough. May cause drowsiness. cetirizine (ZYRTEC) 10 mg tablet Take 10 mg by mouth once daily. loratadine (CLARITIN) 10 mg tablet Take 10 mg by mouth once daily. amLODIPine (NORVASC) 5 mg tablet Take 1 tablet by mouth once daily. gabapentin (NEURONTIN) 100 mg capsule Takes 3 pills 3 times daily citalopram (CELEXA) 40 mg tablet Takes one tablet by mouth at 8am and one-half tab at noon COMPOUNDED PRESCRIPTION Wrist blood pressure kit Benzonatate 200 mg capsule Take 200 mg by mouth three times daily as needed for Cough. triamcinolone acetonide (KENALOG) 0.1 % cream Apply 1 application to affected area three times daily. Apply to affected area. HYDROcodone-acetaminophen (NORCO) 5-325 mg per tablet Take 1 tablet by mouth every 6 hours as needed for Pain. Bisacodyl (DULCOLAX) 5 mg tab Take 1 tablet by mouth as needed. isosorbide mononitrate ER (IMDUR) 30 mg 24 hr tablet Take 1 tablet by mouth once daily. esomeprazole (NEXIUM) 40 mg capsule Take 1 capsule by mouth once daily. 1/2 hr before meal. CALCIUM CARB/VIT D3/MINERALS (CALCIUM CARBONATE-VIT D3-MIN) 600 mg (1,500 mg)-200 unit chew Take 600 mg by mouth once daily. Saliva Stimulant Agents Comb.3 (BIOTENE MOISTURIZING MOUTH) spry Use as instructed twice daily. acetaminophen (TYLENOL EXTRA STRENGTH) 500 mg tablet Take 1 tablet by mouth every 6 hours as needed for Pain. aspirin 81 mg ORAL chewable tablet Take 1 tablet by mouth once daily. vit/fe fumarate/fa( PLUS 27 MG-1 MG TAB) Take one(1) tablet daily. FAMILY HISTORY Problem Relation Age of Onset - Alcohol/Drug Father - Cancer Mother - Cancer Father - Cancer Sister - Coronary Artery Disease Mother - Coronary Artery Disease Sister - Diabetes Mother - Diabetes Father - Diabetes Sister - Diabetes Brother - Ischemic Heart Disease Mother -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 Cosigner Signature (if applicable): Date CC: Monalisa Brown; Ashley Parikh MD Signed STRESS REPORT Observed: 04/24/2017 Status: F Source: [place] 12:36 PM [facility] [place] [facility] Cardiovascular [place] [address] MR#: [id number] Acct: [id number] Name: CHARISSA WALLACE Rep #: [id number] : 1945 71 From: Gordy Pedroza MD Primary Care: Ashley Parikh MD Status: ADM DIAN Ordering Dr: Sex: F C Stress Test Report Pharmacologic myocardial perfusion stress test. 71-year-old lady with a history of chest pain. Stress protocol: Resting EKG demonstrates normal sinus rhythm with a rate of 67 bpm normal intervals are noted. There are 0.4 mg of adenosine was infused per usual protocol followed by Intravenous saline flush injection. Continuous EKG monitoring was performed. At rest there were no ST or T-wave changes noted suggest abnormal flow reserve at peak infusion no ST or T-wave changes were noted suggest abnormal flow reserve. The resting blood pressure was 152/74 with a final blood pressure 158/78. No clinical angina was noted. Myocardial perfusion protocol. 12.0 mCi of technetium 99m sestamibi was injected at rest. 0.4 mg regadenoson was infused per usual protocol. At peak infusion 35.0 mCi of technetium 99m sestamibi was injected. Stress images were obtained. Stress and rest images were reconstructed and compared in the short axis vertical long and horizontal long axis. Gated images were also obtained. Perfusion SPECT analysis: Review of the stress images demonstrate normal uptake of tracer noted in all areas of the myocardium. The resting images similarly demonstrate normal uptake of tracer noted in all areas of the myocardium. No areas of reversibility are noted suggest ischemia. Gated SPECT analysis: The gated ejection fraction noted to be 75%. Conclusion: Normal pharmacologic myocardial perfusion stress test. Preserved ejection fraction. 04/24/17 1236 <Electronically signed by Gordy Pedroza MD> Date Gordy Pedroza MD CC: Ashely Parikh MD Date Dictated: 04/24/17 1233 Date Transcribed: 04/24/17 1233 Boiler Coverer: CO Signed CBC W/DIFF, AUTOMATED Collected: 04/24/2017 Status: F Source: [place] 2:38 AM [facility] [place] TYPE CODE TESTS RESULT OUT OF RANGE REFERENCE UNITS LAB L100.1000 4.4-11.0 K/mm3 Normal WBC 9.2 LAB L100.1200 4.2-5.4 M/mm3 Normal RBC 4.40 LAB L100.1300 12.0-15.0 g/dl Normal HGB 12.8 LAB L100.1400 37-47 % Normal HCT 39.1 LAB L100.1500 81-99 fL Normal MCV 88.9 LAB L100.1600 27.0-32.0 pg Normal MCH 29.1 LAB L100.1700 32-36 g/gl Normal MCHC 32.7 LAB L100.1810 11.6-14.6 % Normal RDW CV 13.8 LAB L100.1820 35.1-43.9 fl High RDW SD 44.3 LAB L100.1900 150-450 K/mm3 Normal PLT 274 LAB L100.2000 6.2-12.0 fl Normal MPV 10.6 LAB L100.2100 47-70 % Normal NEUT% 51.4 LAB L100.2200 19-41 % Normal LY% 38.2 LAB L100.2300 0-10 % Normal MONO% 6.3 LAB L100.2400 0-5 % Normal EO% 3.5 LAB L100.2500 0-1 % Normal BASO% 0.4 LAB L100.2550 0.0-0.9 % Normal IM GRAN % 0.200 Result Comment: IG% - Immature Granulocytes (promyelocytes, myelocytes and metamyelocytes) > 1% indicates that a LEFT SHIFT is Present. LAB L100.2620 2.0-7.7 X10 3/uL Normal Absolute Neut 4.7 LAB L100.2720 0.83-4.51 X10 3/ul Normal Absolute Lymph 3.50 Performed By: #### L100.0100 #### [facility] [address], [place], [id number] PROTHROMBIN TIME W/INR Collected: 04/24/2017 Status: F Source: [place] 2:38 AM [facility] [place] TYPE CODE TESTS RESULT OUT OF RANGE REFERENCE UNITS LAB L300.4150 11.7-14.9 SECONDS Normal PROTIME 13.2 LAB L300.4200 Normal INR 1.0 Performed By: #### L300.3900, L300.4310 #### [facility] [address], [place], [id number] PARTIAL THROMBOPLAST Collected: 04/24/2017 Status: F Source: [place] TIME 2:38 AM [facility] [place] TYPE CODE TESTS RESULT OUT OF RANGE REFERENCE UNITS LAB L300.4310 24.1-36.2 Seconds Normal PTT 27.4 Performed By: #### L300.3900, L300.4310 #### [facility] [address] [facility] [place], [address] TROPONIN-I Collected: 04/24/2017 Status: F Source: [place] 2:38 AM [facility] [place] Order Comment: 'TROP' Serial specimen #1, #2, #3, or #4: 4 TYPE CODE TESTS RESULT OUT OF RANGE REFERENCE UNITS LAB L501.4010 <0.06 ng/mL Normal < 0.02 TROPONIN-I Result Comment: TROPONIN-I EXPECTED VALUES <0.05 NEGATIVE 0.06 - 0.59 AT RISK OF OR > OR = 0.60 SUGGEST OR Performed By: #### L501.4010 #### [facility] [address] [facility] [place] [place], [address] BASIC METABOLIC Collected: 04/24/2017 Status: F Source: [place] PROFILE (BMP) 2:30 AM [facility] [place] TYPE CODE TESTS RESULT OUT OF RANGE REFERENCE UNITS LAB L501.0100 74-106 mg/dL Normal GLU 97 Result Comment: Please note revised GLUCOSE reference range effective 2017. LAB L501.1000 7-18 mg/dL Normal BUN 12 LAB L501.1100 0.55-1.02 mg/dL Normal CREAT,SERUM 0.84 Result Comment: The validity of the calculated GFR AND GFRAA in patients over 70 years has not been determined. Clinical correlation is essential. LAB L501.1110 >60 mL/min Normal EST GFR 71 Result Comment: Non- GFR Calc LAB L501.1115 >60 mL/min Normal EST GFR - AA 86 Result Comment: GFR Calc LAB L501.1255 ml/min Normal Estimated CRCL 47.70 LAB L501.1300 10-20 RATIO Normal BUN/CRE 14.2 LAB L501.2200 8.5-10 mg/dL Low .1 CA 8.0 LAB L501.5300 136-14 mmol/L Normal 5 NA 143 LAB L501.5600 3.5-5. mmol/L Normal 1 K 4.0 LAB L501.5900 98-107 mmol/L High CL 109 LAB L501.6100 21.0-3 mmol/L Normal 2.0 CO2 27.0 LAB L501.6200 5-15 Normal GAP 7 Performed By: #### L500.2500 #### [facility] [address] [place], [address] TROPONIN-I Collected: 04/23/2017 Status: F Source: [place] 9:01 PM [facility] [place] Order Comment: 'TROP' Serial specimen #1, #2, #3, or #4: 3 TYPE CODE TESTS RESULT OUT OF RANGE REFERENCE UNITS LAB L501.4010 <0.06 ng/mL Normal < 0.02 TROPONIN-I Result Comment: TROPONIN-I EXPECTED VALUES <0.05 NEGATIVE 0.06 - 0.59 AT RISK OF OR > OR = 0.60 SUGGEST OR Performed By: #### L501.4010 #### [facility] [address] [facility] [place], [address] TROPONIN-I Collected: 04/23/2017 Status: F Source: [place] 5:59 PM [facility] [place] Order Comment: 'TROP' Serial specimen #1, #2, #3, or #4: 2 TYPE CODE TESTS RESULT OUT OF RANGE REFERENCE UNITS LAB L501.4010 <0.06 ng/mL Normal < 0.02 TROPONIN-I Result Comment: TROPONIN-I EXPECTED VALUES <0.05 NEGATIVE 0.06 - 0.59 AT RISK OF OR > OR = 0.60 SUGGEST OR Performed By: #### L501.4010 #### [facility] [address] [place], [address] HISTORY AND PHYSICAL Observed: 04/23/2017 Status: F Source: [place] EXAM 5:57 PM [facility] [place] [facility] Medical Records Department [address] [place] [address] [place] [address] History and Physical 04/23/17 1555 MR#: [id number] Acct: [id number] Name: MADISONCHARISSA E Rep #: [id number] : 1945 71 From: Sia De MD PCP: Ashley Parikh MD Status: ADM DIAN Y Location: [place] [address] Problem List (1) Hypertension Status: Chronic (2) Coronary artery disease Status: Chronic (3) TIA (transient ischemic attack) Status: Chronic (4) Hyperlipidemia Status: Chronic (5) Hypothyroidism Status: Chronic (6) Anxiety Status: Chronic (7) 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 The patient is a 71 year old F with past medical history as mentioned above presented to the emergency room because of chest pain and reported syncope. The patient is poor informant and was not able to give consistent history. She stated that [facility] and while she is driving, she started feeling sick, dizzy and had chest pain and she was about to vomit. She described this chest pain as sharp pain, lasted for couple of minutes, not radiating, 4-5 out of 10 in severity, associated with shortness of breath and nausea and without aggravating or relieving factors. She drove to the hospital and parking her car, came walking to the emergency room and all of a sudden, she started having another episode of chest pain was described as above, associated with dizziness, severe pain, sharp and she landed on the ground because of that pain. Reportedly, a man who was walking beside mentioned that she passed out. She did mention that she was dizzy but she did not recall that she passed out. Upon arrival to ER, patient was somewhat confused and slow on responding to questions. When I saw the patient, she had the same problem but she was alert and active 3 and she has slow responses to questions. She mentioned that this problem is chronic for her. At this time, she has no more chest pain. Her vital signs are stable. Her routine blood work was unremarkable. First troponin was negative. EKG revealed flat T-wave in leads V3, V4, V5 and V6 and T-wave inversion in leads V3 and V4. Those changes are new compared to EKG from December,. Chest x-ray showed no acute findings. CT scan brain showed no acute infarction or hemorrhage. CT cervical spine showed no evidence of acute fractures or dislocations. She is being admitted for chest pain for evaluation as well as questionable syncope/near syncope for evaluation as well. Past Medical History Past Medical History (Chronic Problems): Chronic Problems Hypertension (Chronic) Coronary artery disease (Chronic) TIA (transient ischemic attack) (Chronic) Hyperlipidemia (Chronic) Hypothyroidism (Chronic) Anxiety (Chronic) Smoking addiction (Chronic) History of coronary artery bypass graft x 3 (Chronic) History of PTCA (Chronic) Sleep apnea (Chronic) Pulmonary hypertension (Chronic) Chronic back pain (Chronic) COPD (chronic obstructive pulmonary disease) (Chronic) Benzodiazepine dependence (Chronic) Allergies morphine Allergy (Verified 12/16/16 21:38) PT UNSURE Penicillins Allergy (Verified 12/16/16 21:38) Hives tramadol HCl [From Ultram] Allergy (Verified 12/16/16 21:38) PT UNSURE Home Medications: Ambulatory Orders Medication Instructions Recorded Atenolol [Tenormin (beta estefania)] 25 mg PO DAILY 03/22/15 Citalopram [Celexa] 40 mg PO DAILY 03/22/15 Clopidogrel Bisulfate [Plavix] 75 mg PO QODAY 03/22/15 Surgical History: angioplasty - A total of 5 stents, coronary bypass surgery - 3 vessel bypass surgery Psychiatric History: Anxiety 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 Denies: Heaviness, Orthopnea, Palpitations, Paroxysmal Noc. Dyspnea Respiratory: Reports: Shortness of Breath. Denies: Cough, Pleuritic Pain, Sputum production, Wheezing Gastrointestinal: Reports: Nausea. Denies: Abdominal Pain, Constipation, Diarrhea, Vomiting Genitourinary: Denies: Dysuria, Frequency, Hematuria Musculoskeletal: Denies: Arm Pain, Back Pain, Foot Pain Skin: Denies: Dryness, Rash Neurological: Denies: Balance problems, Double vision, Change in Speech, Slurred speech, Confusion, Focal weakness, Headaches, Incoordination Psychiatric: Reports: Anxiety. Denies: Depression Endocrine: Denies: Change in Body Habitus, Polydipsia, Polyuria VTE Information - Inpt Only VTE Present on Admission: No VTE Mechan Device Prophylaxis: None VTE Pharm Prophylaxis ordered?: Yes - Physical Exam General: Alert, Oriented x3, Cooperative, No apparent distress HEENT: Atraumatic, PERRLA, EOMI Oral: Moist Mucosa, No Gingival or Mucosal Lesions/ Ulcerations Neck: Supple, No JVD, Negative Carotid Bruits, Trachea Midline, Thyroid Normal Size and Texture Lungs: Clear to auscultation, No wheeze, No rales, Diminished, Rhonchi Cardiovascular: Regular rate, Regular Rhythm, Normal S1, Normal S2, PMI Normal Abdomen: Bowel Sounds Present, Soft, Non Tender, Non-Distended, No Hepato-splenomegaly Extremities: No clubbing, No cyanosis, No edema Skin: No rashes, No breakdown Lymphatic: No Cervical, Supraclavicular, or Inguinal Adenopathy Neurological: Cranial nerves II-XII grossly intact, Motor Exam 5/5 strength throughout Psych/Mental Status: Normal Affect, Appropriate Vital Signs Temp Pulse Resp BP Pulse Ox 97.9 F 69 20 H 142/83 H 94 04/23/17 12:42 04/23/17 15:30 04/23/17 15:30 04/23/17 15:30 04/23/17 15:30 Oxygen Flow Rate (L/min) 2 Oxygen Delivery Method Room Air Weight: 170 lb Body Mass Index (BMI) 27.4 Finger Stick Blood Glucose 145 Laboratory Tests Past 24 Hrs WBC 10.7 RBC 4.79 Hgb 14.1 Hct 42.6 MCV 88.9 MCH 29.4 MCHC 33.1 RDW 13.9 POC Glucose POC Glucose 145 H Clinical Impression(s) from Imaging Studies Chest X-Ray 04/23/17 12:53 IMPRESSION: No acute cardiopulmonary disease or interval change. Electronically Signed: Lamont Roger DO at 15:30 EDT Tel [phone], Service support , Brain CT 04/23/17 12:54 IMPRESSION: Chronic involutional changes of the brain. Electronically Signed: Gonzales Dowell MD at 13:56 EDT Tel [phone], Service support , Cervical Spine CT 04/23/17 12:54 IMPRESSION: Multilevel degenerative changes, as described above. Electronically Signed: Gonzales Dowell MD at 13:55 EDT Tel [phone], Service support , Assessment/Plan This is a 71 years old female patient presented to the emergency room because of chest pain and questionable near syncope and she is being admitted for evaluation. #1 chest pain/EKG changes: EKG reviewed, revealed flattened T waves in leads V3, V4, V5 and V6 as well as inverted T-wave in leads V3 and V4 and those changes are new compared to EKG from December,. Her chest pain looks somewhat typical. She has significant cardiac history of CAD status post CABG and stents. Patient is poor informant, she used to see Dr. Cruz as outpatient. First troponin is negative. Vital signs are stable. Chest x-ray showed no acute findings. Plan: Admit to PCU for observation, cardiac monitoring, serial cardiac enzymes, repeat EKG tomorrow morning, nuclear stress test tomorrow morning if cardiac enzymes are negative, obtain records from Dr. Cruz office who was her support services specialist. #2 questionable syncope/near syncope: This was reported by a man who was walking by the patient in the front of the emergency room. Patient did mention that she was dizzy but she is not sure she is passed out. CT scan brain without acute findings. CT scan cervical spine done because of neck pain and was unremarkable. Plan: IV fluids, orthostatic vitals, cardiac monitoring. #3 CAD status post CABG and stents: Plan as above. Continue aspirin, atenolol, Plavix and lisinopril. #4 history of TIA: No focal deficit on physical exam. Continue aspirin and Plavix as well as statins. #5 COPD: Clinically stable, plan for albuterol as needed, Advair twice daily, oxygen by nasal cannula to keep O2 saturation more than 92%. #6 hypertension: Blood pressure stable, continue Norvasc, atenolol and lisinopril. #7 hypothyroidism: Continue levothyroxine. #8 DVT prophylaxis: Subcu Lovenox. This note was generated with VantageILMation software. It may contain incorrect words, spelling, and punctuation that were not noted in checking the note before signing. Code Visit OBSV E AND M: 67035 Initial observation care L3 04/23/17 1757 <Electronically signed by Sia De MD> Date Sia De MD Cosigner Signature: Date (if applicable) CC: Ashley Parikh MD; Sia De Signed EMERGENCY DEPARTMENT Observed: 04/23/2017 Status: F Source: [place] SUMMARY 3:32 PM [facility] [place] [facility] Medical Records Department [address] [place] [address] Emergency Department Summary 04/23/17 1528 MR#: [id number] Acct: [id number] Name: CHARISSA WALLACE Rep #: [id number] : 1945 71 From: Manpreet Whitten DO PCP: Ashley Parikh MD Status: REG ER - ER Visit Summary Date of Service: 04/23/17 Chief Complaint: [Chest pain and syncope] History of Present Illness: The patient is a 71 F [presents to the emergency department with complaint of chest discomfort. Patient drove herself to the emergency department because she was not feeling well today with headache and feeling short of breath. Patient was noted that before she entered the ER door she started clutching her chest and collapsed to the floor. A rapid response team went out to bring the patient into the department. On arrival she is somewhat confused and slow to answer questions. She does move all extremities and follows commands. Patient tells me she has a history of multiple cardiac stents and open heart surgery in the past. She denies any recent travel or surgery. She denies recent illness.] Physical Examination: [HEENT-PERRLA, EOMI. Cranial nerves II through XII grossly intact. TMs clear. Mucous membranes moist. No adenopathy. Cardiovascular-regular rate and rhythm without murmur or ectopy Lungs-clear to auscultation, chest wall stable without crepitus or subcu emphysema Abdomen-normoactive bowel sounds, soft, nontender, no rebound or rigidity, no peritoneal signs. Neuro ytht-tbauxp-bbdq and heel amato testing within normal limits, negative Romberg. No focal deficit noted on exam. NIH of 0. Extremities-intact 4, normal range of motion, normal pulses, atraumatic] Test Results: [EKG obtained on arrival shows sinus rhythm with a ventricular rate of 74 bpm with some nonspecific ST changes noted. CBC with differential is normal. Chemistries were normal. Troponin was less than 0.02. CT scan of the brain without contrast showed nothing acute. CT C-spine showed nothing acute. Chest x-ray showed nothing acute.] Emergency Department Course and Treatment: [Patient received aspirin in the emergency department.] Treatment Plan: [I recommended admitting patient for further workup and evaluation of her symptoms. Patient initially stated that she would prefer to go home however she agreed to allow for admission and at least an observation period.] Disposition: [Admit] Impression: [Chest pain Syncope Confusion-resolved] This note was generated with Tamion dictation software. It may contain incorrect words, spelling, and punctuation that were not noted in review of the chart prior to signing ED Disposition - Plan for ED Patient: Chief Complaint: Chest Pain Referrals: Ashley Parikh MD [Primary Care Provider] - What to do if you have Problems For any increased pain, shortness of breath, bleeding, nausea or vomiting, chest pain, or any unexpected problems, contact your Primary Care Provider. Call [facility] ([phone]) or report to the closest Emergency Room. Call 911 if necessary. 04/23/17 1532 <Electronically signed by Manpreet Whitten DO> Date Manpreet Whitten DO Cosigner Signature (If Indicated): Date CC: Ashley Parikh MD SPINE CERVICAL Observed: 04/23/2017 Status: F Source: [place] WITHOUT CONTRAS 12:55 PM [facility] [place] [facility] Imaging Services [address] [place] [address] Spine Cervical without Contras MR#: [id number] Acct: [id number] Name: CHARISSA WALLACE Rep #: [id number] : 1945 F 71 From: Gonzales Dowell MD PCP: Ashley Parikh MD Status: REG ER Study: Spine Cervical without Contras Date of Exam: 04/23/17 Exam# [id number] Ordering Dr: Manpreet Whitten DO STUDY: CT CERVICAL SPINE WITHOUT CONTRAST REASON FOR EXAM: Female, 71 years old. Neck pain following a fall. RADIATION DOSAGE (If Supplied By Facility): CTDIvol = ( 30.10 ) mGy, DLP = ( 616.87 ) mGycm TECHNIQUE: High resolution transaxial imaging was performed without contrast material. Sagittal and coronal images were reconstructed. Individualized dose optimization techniques were used for this CT. COMPARISON: None FINDINGS: Normal craniovertebral junction. There are degenerative changes of the anterior atlantoaxial articulation. Normal odontoid process. Normal cervical lordosis. Normal vertebral bodies and posterior osseous elements. C2-3: Normal endplates. Normal disc height and morphology. Normal central canal and intervertebral neuroforamina. C3-4: Normal endplates. Normal disc height and morphology. Normal central canal and intervertebral neuroforamina. C4-5: Moderate degree of disc space narrowing and spondylosis. Uncovertebral arthrosis and facet joint osteoarthritis. Mild degree of bilateral neural foraminal stenosis worse on the right side. C5-6: Moderate degree of disc space narrowing with spondylosis. Uncovertebral arthrosis. Facet joint osteoarthritis and hypertrophy. Mild bilateral neural foraminal stenosis. C6-7: Moderate degree of disc space narrowing and spondylosis. Facet joint osteoarthritis. CT/Spine Cervical without Contras IMPRESSION: Multilevel degenerative changes, as described above. Electronically Signed: Gonzales Dowell MD at 13:55 EDT Tel [phone], Service support , CC: Ashley Parikh MD; Manpreet Whitten DO Boiler Coverer: Signed BRAIN/HEAD WITHOUT Observed: 04/23/2017 Status: F Source: [place] CONTRAST 12:55 PM [facility] [place] [facility] Imaging Services [address] [place] [address] Brain/Head without Contrast MR#: [id number] Acct: [id number] Name: CHARISSA WALLACE Rep #: [id number] : 1945 F 71 From: Gonzales Dowell MD PCP: Ashley Parikh MD Status: REG ER Study: Brain/Head without Contrast Date of Exam: 04/23/17 Exam# [id number] Ordering Dr: Manpreet Whitten DO STUDY: CT BRAIN WITHOUT CONTRAST REASON FOR EXAM: Female, 71 years old. History of fall. RADIATION DOSAGE (If Supplied By Facility): CTDIvol = ( 60.81 ) mGy, DLP = ( 1067.08 ) mGycm TECHNIQUE: Transaxial CT imaging of the brain was performed without administration of intravenous contrast material. Individualized dose optimization techniques were used for this CT. COMPARISON: Comparison is made with prior study dated December 16, 2016. FINDINGS: Normal soft tissue structures. Normal calvarium. There is mild cerebral atrophy with widening of the extra- axial spaces and ventricular dilatation. There are areas of decreased attenuation within the white matter tracts of the supratentorial brain, consistent with microvascular disease changes. 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 Normal brainstem. Normal cerebellum. There is no intracranial hemorrhage. There are no findings of an acute ischemic infarction. Atherosclerotic calcification of the cavernous portions of the internal carotid arteries bilaterally. Nodular mucosal thickening of the right maxillary sinus. CT/Brain/Head without Contrast IMPRESSION: Chronic involutional changes of the brain. Electronically Signed: Gonzales Dowell MD at 13:56 EDT Tel [phone], Service support , CC: Ashley Parikh MD; Manpreet Whitten DO Boiler Coverer: Signed CHEST 1 VIEW Observed: 04/23/2017 Status: F Source: [place] (PORTABLE) 12:55 PM [facility] [place] [facility] Imaging Services [address] [place] [address] Chest 1 View (Portable) MR#: [id number] Acct: [id number] Name: CHARISSA WALLACE Rep #: [id number] : 1945 F 71 From: Lamont Roger DO PCP: Ashley Parikh MD Status: REG ER Study: Chest 1 View (Portable) Date of Exam: 04/23/17 Exam# [id number] Ordering Dr: Manpreet Whitten DO STUDY: X-RAY CHEST REASON FOR EXAM: Female, 71 years old. Sudden onset chest pain. TECHNIQUE: Single AP portable view of the chest. COMPARISON: December 16, 2016. FINDINGS: Telemetry wires overlie the chest. The lungs are clear and expanded. There is no demonstrated pleural abnormality. Sternal cerclage wires are present from a prior sternotomy. The heart appears normal in size. Normal mediastinum and beverly. Normal visualized pulmonary arteries. Normal visualized aortic arch and descending thoracic aorta. Normal visualized thoracic spine. Normal visualized ribs, clavicles, and shoulders. There is no demonstrated abnormality of the visualized soft tissue structures of the upper abdomen. RAD/Chest 1 View (Portable) IMPRESSION: No acute cardiopulmonary disease or interval change. Electronically Signed: Lamont Roger DO at 15:30 EDT Tel [phone], Service support , CC: Ashley Parikh MD; Manpreet Whitten DO Boiler Coverer: Signed BEDSIDE GLUCOSE Collected: 04/23/2017 Status: F Source: [place] 12:47 PM [facility] [place] TYPE CODE TESTS RESULT OUT OF REFERENCE UNITS RANGE LAB L501.080 70-110 mg/dL High BEDSIDE GLU 145 Result Comment: MANAGEMENT OF PATIENT CARE PER NURSING PROTOCOL Performed By: #### L501.080 #### [facility] Point of [place] [address] CBC W/DIFF, AUTOMATED Collected: 04/23/2017 Status: F Source: [place] 12:45 PM [facility] [place] TYPE CODE TESTS RESULT OUT OF RANGE REFERENCE UNITS LAB L100.1000 4.4-11.0 K/mm3 Normal WBC 10.7 LAB L100.1200 4.2-5.4 M/mm3 Normal RBC 4.79 LAB L100.1300 12.0-15.0 g/dl Normal HGB 14.1 LAB L100.1400 37-47 % Normal HCT 42.6 LAB L100.1500 81-99 fL Normal MCV 88.9 LAB L100.1600 27.0-32.0 pg Normal MCH 29.4 LAB L100.1700 32-36 g/gl Normal MCHC 33.1 LAB L100.1810 11.6-14.6 % Normal RDW CV 13.9 LAB L100.1820 35.1-43.9 fl High RDW SD 44.0 LAB L100.1900 150-450 K/mm3 Normal PLT 293 LAB L100.2000 6.2-12.0 fl Normal MPV 11.1 LAB L100.2100 47-70 % Normal NEUT% 59.3 LAB L100.2200 19-41 % Normal LY% 31.9 LAB L100.2300 0-10 % Normal MONO% 6.4 LAB L100.2400 0-5 % Normal EO% 1.5 LAB L100.2500 0-1 % Normal BASO% 0.5 LAB L100.2550 0.0-0.9 % Normal IM GRAN % 0.400 Result Comment: IG% - Immature Granulocytes (promyelocytes, myelocytes and metamyelocytes) > 1% indicates that a LEFT SHIFT is Present. LAB L100.2620 2.0-7.7 X10 3/uL Normal Absolute Neut 6.4 LAB L100.2720 0.83-4.51 X10 3/ul Normal Absolute Lymph 3.41 Performed By: #### L100.0100 #### [facility] [address] [place], [address] BASIC METABOLIC Collected: 04/23/2017 Status: F Source: [place] PROFILE (BMP) 12:45 PM [facility] [place] Order Comment: 'TROP' Serial specimen #1, #2, #3, or #4: 1 TYPE CODE TESTS RESULT OUT OF RANGE REFERENCE UNITS LAB L501.0100 74-106 mg/dL High GLU 115 Result Comment: Fasting Glucose result from 100 to 125 mg/dL suggests IMPAIRED HOMEOSTASIS per A.D.A. criteria. Please note revised GLUCOSE reference range effective 2017. LAB L501.1000 7-18 mg/dL Normal BUN 12 LAB L501.1100 0.55-1.02 mg/dL Normal CREAT,SERUM 0.97 Result Comment: The validity of the calculated GFR AND GFRAA in patients over 70 years has not been determined. Clinical correlation is essential. LAB L501.1110 >60 mL/min Normal EST GFR 60 Result Comment: Non- GFR Calc LAB L501.1115 >60 mL/min Normal EST GFR - AA 73 Result Comment: GFR Calc LAB L501.1255 ml/min Normal Estimated CRCL 51.24 LAB L501.1300 10-20 RATIO Normal BUN/CRE 12.3 LAB L501.2200 8.5-10 mg/dL Normal .1 CA 8.8 LAB L501.5300 136-14 mmol/L Normal 5 NA 137 LAB L501.5600 3.5-5. mmol/L Normal 1 K 3.7 LAB L501.5900 98-107 mmol/L Normal CL 103 LAB L501.6100 21.0-3 mmol/L Normal 2.0 CO2 27.0 LAB L501.6200 5-15 Normal GAP 7 Performed By: #### L500.2500, L501.4010 #### [facility] [address] [place], [place], [address] TROPONIN-I Collected: 04/23/2017 Status: F Source: [place] 12:45 PM [facility] [place] Order Comment: 'TROP' Serial specimen #1, #2, #3, or #4: 1 TYPE CODE TESTS RESULT OUT OF RANGE REFERENCE UNITS LAB L501.4010 <0.06 ng/mL Normal < 0.02 TROPONIN-I Result Comment: TROPONIN-I EXPECTED VALUES <0.05 NEGATIVE 0.06 - 0.59 AT RISK OF OR > OR = 0.60 SUGGEST OR Performed By: #### L500.2500, L501.4010 #### [facility] [address] [place], [place], [address] CNPTOUTREAHERBER Observed: 02/03/2017 Status: COMPLETED Source: [place] 12:00 AM [facility] REPOSITORY Patient Outreach (FAMPST) CHARISSA WALLACE ([id number]) 1945 F Date Time Provider Department 02/03/17 [facility] During your visit today, we recorded the following information about you: Allergies As of Date: 02/03/2017 Noted Allergy Reaction MORPHINE HCL 06/09/2006 1 - Mental Status Change NUBAIN (NALBUPHINE HCL) 06/09/2006 ORPHENADRINE 06/09/2006 PENICILLINS 06/09/2006 2 - Rash ULTRAM (TRAMADOL HCL) 06/09/2006 2 - Rash dilaudid [Other] 06/09/2006 1 - Mental Status Change Date Reviewed: 11/15/2016 Reviewed by: Maci Hdez [employer] Professor - Fully Assessed Visit Diagnosis:Medication management [Z79.899] Order(s):HGB A1C [BJOIS5K] Order #: [id number] FUTURE TSH BLD [SQTSH] Order #: [id number] FUTURE LIPID PANEL BASIC [SQLIPB] Order #: [id number] FUTURE Prescriptions as of 02/03/2017 Sig: ONDANSETRON 4 MG DISINTEGRATI* DISSOLVE ONE TABLET IN MOUTH * COMPOUNDED PRESCRIPTION Powered wheelchair. KDLCCPRHWN-XVAIHRZNX-OVXDCYBI* Apply 1 application to affect* LEVOTHYROXINE 75 MCG TABLET Take 1 tablet by mouth once d* CLOPIDOGREL 75 MG TABLET Take 1 tablet by mouth every * LOVASTATIN 20 MG TABLET Take 1 tablet by mouth once d* LISINOPRIL 40 MG TABLET Take 1 tablet by mouth once d* COMPOUNDED PRESCRIPTION Lift chair CODEINE 10 MG-GUAIFENESIN 100* Take 5-10 mL by mouth four ti* CETIRIZINE 10 MG TABLET Take 10 mg by mouth once katty* LORATADINE 10 MG TABLET Take 10 mg by mouth once katty* SODIUM CHLORIDE 0.65 % NASAL * Use 1 Garrett in the nose as ne* FLONASE NASAL Use in the nose. ATENOLOL 50 MG TABLET Take 0.5 tablets by mouth onc* AMLODIPINE 5 MG TABLET Take 1 tablet by mouth once d* GABAPENTIN 100 MG CAPSULE Takes 3 pills 3 times daily CITALOPRAM 40 MG TABLET Takes one tablet by mouth at * FLUTICASONE 50 MCG/ACTUATION * Use 2 Sprays in each nostril * COMPOUNDED PRESCRIPTION Wrist blood pressure kit BENZONATATE 200 MG CAPSULE Take 200 mg by mouth three ti* ALBUTEROL SULFATE HFA 90 MCG/* Inhale 2 Puffs as instructed * TRIAMCINOLONE ACETONIDE 0.1 %* Apply 1 application to affect* HYDROCODONE 5 MG-ACETAMINOPHE* Take 1 tablet by mouth every * BISACODYL 5 MG TABLET Take 1 tablet by mouth as nee* ISOSORBIDE MONONITRATE ER 30 * Take 1 tablet by mouth once d* ESOMEPRAZOLE MAGNESIUM 40 MG * Take 1 capsule by mouth once * CALCIUM CARB 600 MG(1,500 MG)* Take 600 mg by mouth once mildred* SALIVA STIMULANT COMBINATION * Use as instructed twice katty* ACETAMINOPHEN 500 MG TABLET Take 1 tablet by mouth every * * ASPIRIN 81 MG CHEWABLE TABLET Take 1 tablet by mouth once d* * PLUS 27 MG-1 MG TABL* Take one(1) tablet daily. Problem List As Of Date 02/03/2017 Noted Resolved Abnormal mammogram, unspecified [R92.8] INVALID FOR* More... Sebaceous cyst [L72.3] INVALID FOR*06/05/2015 SUMMARY [V999.95] INVALID FOR* Priority: A More... S/P CABG (coronary artery bypass graft) [Z95.1] INVALID FOR* Priority: B More... CAD (coronary artery disease) of bypass graft [*INVALID FOR* Priority: B More... Hypertension [I10] INVALID FOR* Priority: E More... 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 Postsurgical percutaneous transluminal coronary*INVALID FOR* More... Tobacco dependence [F17.200] INVALID FOR* More... Hypothyroidism [E03.9] INVALID FOR* More... Chronic pain [G89.29] INVALID FOR* More... GERD (gastroesophageal reflux disease) [K21.9] INVALID FOR* More... 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 Major depression (HCC) [F32.9] INVALID FOR* More... Anxiety [F41.9] INVALID FOR* More... Obstructive sleep apnea [G47.33] INVALID FOR* More... Encounter Status:Closed by Konbini, PRODUSER on 03/29/17 ALLERGIES ALLERGIES DATE TYPE / CODE NAME / CODE REACTION SEVERITY SOURCE Drug tramadol PT UNSURE Unknown [place] 8 Allergy/282541918( HCl/R510115077(RX Community SNOMED CT) NORM) Hospital Repository Drug Penicillins/F0010 Hives Unknown [place] 8 Allergy/308961055( [address](RXNORM) Community SNOMED CT) Hospital Repository Drug morphine/T7947404 PT UNSURE Unknown [place] 8 Allergy/906452735( 45(RXNORM) Community SNOMED CT) Hospital Repository DRUG MORPHINE HCL Mental Chg [place] [facility] INGREDI/859228311( Clinic Main SNOMED CT) [place] Repository DRUG NALBUPHINE HCL [place] INGREDI/751944979( Clinic Main SNOMED CT) [place] Repository DRUG ORPHENADRINE [place] [address] INGREDI/545887976( Clinic Main SNOMED CT) [place] Repository Drug PENICILLINS RASH [place] 7 Class/432143742(SN Clinic Main OMED CT) [place] Repository DRUG TRAMADOL HCL RASH [place] INGREDI/751908899( Clinic Main SNOMED CT) [place] Repository Miscellaneous OTHER Mental Chg [place] 7 Allergy/803133028( Clinic Main SNOMED CT) [place] Repository NG/910732586(SNOME MORPHINE HCL [facility]) [facility] Repository NG/374173421(SNOME NALBUPHINE HCL [facility]) [facility] System Repository NG/185864560(SNOME ORPHENADRINE [facility] D [facility]) [facility] System Repository NG/671173355(SNOME PENICILLINS [facility]) [facility] Repository NG/087361436(SNOME TRAMADOL HCL [facility]) [facility] System Repository NG/978821997(SNOME OTHER [facility] D [facility]) Health System Repository ENCOUNTERS ENCOUNTERS ADMIT/DISCHARGE ACCOUNT NUMBER ADMITTING ENCOUNTER LOCATION SOURCE CLASS 01/05/2018 [id number] Ambulatory BMS[facility]: [facility] Repository 01/05/2018/01/07/20 [id number] Ambulatory BMSBuilding: [address] Repository 01/05/2018/01/07/20 [id number] [facility] [address] ding:PCURoom Repository : [id number]: 1 01/05/2018 [id number] [place], Ambulatory BMSBuilding: [place] Soni BMS.[facility] Repository 01/05/2018 [id number] [place], Ambulatory BMSBuilding: [place] BMS.[facility] Repository 12/29/2017 [id number] Ambulatory BMSBuilding: [place] BMS..[facility] Repository 12/28/2017 [id number] Ambulatory BMSBuilding: [place] BMS.[facility] Repository 12/28/2017 [id number] Ambulatory BMSBuilding: [facility] Repository 12/28/2017/12/30/19 [id number] Ambulatory [address] ding:CLSPRoo Repository m: [id number] 12/23/2017 [id number] Ambulatory BMSBuilding: [place] BMS.[facility] Repository 12/18/2017/12/19/19 [id number] Ambulatory BMSBuilding: [place] 18 BMS.[facility] Repository 12/17/2017 [id number] Ambulatory BMSBuilding: [place] BMS.[facility] Repository 12/17/2017 [id number] Ambulatory [facility] ding:RAD Repository 10/21/2017 [id number] Ambulatory [facility] ding:POLAB3 Repository 09/14/2017 [id number] Ambulatory [facility] ding:POLAB3 Repository 09/11/2017/09/12/19 [id number] Emergency [address] ding:ED Repository 09/06/2017/09/07/19 [id number] Emergency [address] ding:ED Repository 08/27/2017 [id number] Ambulatory [facility] ding:POLAB3 Repository 08/08/2017 [id number] Ambulatory [facility] ding:CT Repository 08/04/2017 [id number] Ambulatory [facility] ding:POLAB3 Repository 07/27/2017 [id number] Inpatient [address] [place] [address] Encounter 4NRoom: System [id number]: Repository [id number] 07/26/2017/07/27/19 [id number] Emergency [address] ding:ED Repository 07/21/2017 [id number] Ambulatory [facility] ding:POLAB3 Repository 07/20/2017/07/21/19 [id number] Emergency ABuilding:[address] Repository 07/16/2017/07/25/19 [id number] Ambulatory [address] Repository 07/16/2017/07/22/19 [id number] Ambulatory [address] Repository 07/11/2017/07/25/19 [id number] Ambulatory [address] Repository 06/29/2017 [id number] Ambulatory [facility] ding:MRI Repository 06/22/2017 [id number] Ambulatory [facility] ding:CVS Repository 06/18/2017/06/19/19 [id number] Ambulatory [address] Repository 06/11/2017 [id number] Ambulatory [facility] ding:LAB Repository 06/05/2017 [id number] Ambulatory [facility] MEDICAL Repository CENTERBuildi ng:CAGWS 06/01/2017/06/02/19 [id number] Emergency [address] ding:ED Repository 05/30/2017 [id number] Ambulatory [facility] Repository 05/30/2017/05/31/19 [id number] Ambulatory [address] Repository 05/30/2017/06/02/19 [id number] Ambulatory [address] Repository 05/29/2017 [id number] Emergency [facility] ding:ED Repository 05/13/2017/05/14/19 [id number] Ambulatory [address] Repository 04/24/2017/04/25/19 [id number] Ambulatory BMSBuilding: [address] Repository 04/24/2017/04/25/19 [id number] Ambulatory BMSBuilding: [address] Repository 04/23/2017/04/25/19 [id number] [facility], Ambulatory [address] ding:PCURoom Repository : [id number]: 1 04/23/2017 [id number] [place], Ambulatory BMSBuilding: [place] Ghasem BMS.[facility] Repository 04/23/2017 [id number] [facility], Ambulatory BMSBuilding: [place] Ghasem BMS.[facility] Repository PAYERS PAYERS ENCOUNTER GUARANTOR PAYER SUBSCRIBER SOURCE 01/05/2018 CHARISSA E Primary CHARISSA [place] [id number] Insurance:MEDICARE MADISONDOB: [facility] A BPolicy Number: [id number] [id number] Repository [address]Avh: ([phone]) Date:2018-01-05 [phone] () 01/05/2018 Secondary CHARISSA E [place] Insurance:MUTUAL OF JOHNSONDOB: [facility] Number: [id number] [place] [address] [id number] Repository Date:5180-31-99UNLQYI [place] [address]DI: 01/05/2018 Tertiary NOT GIVENUNK [place] Insurance:SELF PAY [facility] Number: Effective Repository Date:2018-01-05 01/05/2018 CHARISSA E Primary CHARISSA E Jerome [id number] Insurance:MEDICARE JOHNSONDOB: [facility] Judie PART A BPolicy Number: [id number] [id number] Repository [address]Jhh: (112) Date:2018-01-05 [phone] () 01/05/2018 Secondary CHARISSA E Jerome Insurance:MUTUAL OF JOHNSONDOB: [facility] Number: [id number] [place] [address] [id number] Repository Date:2831-36-54IHBNYC OF [place], [place] [address]FG: 01/05/2018 Tertiary NOT GIVENUNK [place] Insurance:SELF PAY [facility] Number: Effective Repository Date:2018-01-05 01/05/2018 CHARISSA E Primary CHARISSA E [place] [id number] Insurance:MEDICARE [facility]NSONDOB: [facility] BPolicy Number: [id number] [id number] Repository [address]Irw: (330) Date:2018-01-05 [phone] () 01/05/2018 Secondary CHARISSA E Jerome Insurance:MUTUAL OF JOHNSONDOB: Psychiatric hospital Number: [id number] [place] [address] [id number] Repository Date:7842-27-85KTDTAD [place] [address]LX: 01/05/2018 Tertiary NOT GIVENUNK [place] Insurance:SELF PAY [facility] Number: Effective Repository Date:2018-01-05 01/05/2018 CHARISSA E Primary CHARISSA E Jerome [id number] Insurance:MEDICARE JOHNSONDOB: [facility] [place] [facility] PART A BPolicy Number: [id number] [id number] Repository [address]Dtb: (330) Date:2018-01-05 [phone] () 01/05/2018 Secondary CHARISSA E Jerome Insurance:MUTUAL OF JOHNSONDOB: [facility]iatric hospital Number: [id number] Hospital [id number] Repository Date:4160-48-10NEBWKV [place] [address]GZ: 01/05/2018 Tertiary NOT GIVENUNK [place] Insurance:SELF PAY [facility] Number: Effective Repository Date:2018-01-05 01/05/2018 CHARISSA E Primary CHARISSA E [place] [id number] Insurance:MEDICARE JOHNSONDOB: Community [place] DrLot PART A BPolicy Number: [id number] [id number] Repository [address]Xxa: (330) Date:2018-01-05 [phone] () 01/05/2018 Secondary CHARISSA E Jerome Insurance:MUTUAL OF JOHNSONDOB: Psychiatric hospital Number: [id number] Hospital [id number] Repository Date:5263-30-01IXNFTE [place] [address]SN: 01/05/2018 Tertiary NOT GIVENUNK [place] Insurance:SELF PAY [facility] Number: Effective Repository Date:2018-01-05 12/29/2017 CHARISSA E Primary CHARISSA E [place] [id number] Insurance:MEDICARE JOHNSONDOB: Community [place] DrLot PART A BPolicy Number: [id number] [id number] Repository [address]Szn: (330) Date:2017-12-18 [phone] () 12/29/2017 Secondary CHARISSA E [place] Insurance:MUTUAL OF JOHNSONDOB: Psychiatric hospital Number: [id number] Hospital [id number] Repository Date:1212-27-83YLMVQS OF [place] [address]KW: 12/29/2017 Tertiary NOT GIVENUNK [place] Insurance:SELF PAY [facility] Number: Effective Repository Date:2017-12-29 12/28/2017 CHARISSA E Primary CHARISSA E [place] [id number] Insurance:MEDICARE JOHNSONDOB: [facility] [place] Dr[place] PART A BPolicy Number: [id number] [id number] Repository [address]Thy: (013) Date:2017-12-28 [phone] () 12/28/2017 Secondary CHARISSA E Jerome Insurance:MUTUAL OF JOHNSONDOB: Psychiatric hospital Number: [id number] [place] [address] [id number] Repository Date:6120-46-40ECPYZK [place], [place] [address]RZ: 12/28/2017 Tertiary NOT GIVENUNK [place] Insurance:SELF PAY [facility] Number: Effective Repository Date:2017-12-28 12/28/2017 CHARISSA E Primary CHARISSA E [place] [id number] Insurance:MEDICARE JOHNSONDOB: [facility] [place] Dr[place]ot PART A BPolicy Number: [id number] [id number] Repository 17[address]Zxb: (333) Date:2017-12-18 [phone] () 12/28/2017 Secondary CHARISSA E [place] Insurance:MUTUAL OF JOHNSONDOB: Psychiatric hospital Number: [id number] Hospital [id number] Repository Date:0360-93-50ILNYCR [place] [address]RE: 12/28/2017 Tertiary NOT GIVENUNK [place] Insurance:SELF PAY [facility] Hospital Number: Effective Repository Date:2017-12-28 12/28/2017 CHARISSA E Primary CHARISSA E [place] [id number] Insurance:MEDICARE JOHNSONDOB: [facility] Antonia Dimas PART A olicy Number: [id number] [id number] Repository [address]Wnw: (330) Date:2017-12-18 [phone] () 12/28/2017 Secondary CHARISSA E [place] Insurance:MUTUAL OF JOHNSONDOB: Psychiatric hospital Number: [id number] [place] [address] [id number] Repository Date:5829-06-15RQNBJV OF [place], [place] [address]FD: 12/28/2017 Tertiary NOT GIVENUNK [place] Insurance:SELF PAY [facility] Number: Effective Repository Date:2017-12-18 12/23/2017 CHARISSA E Primary CHARISSA E [place] [id number] Insurance:MEDICARE JOHNSONDOB: [facility] [place] PART A BPolicy Number: [id number] [id number] Repository [address]Sbp: (330) Date:2017-12-23 [phone] () 12/23/2017 Secondary CHARISSA E [place] Insurance:MUTUAL OF JOHNSONDOB: Psychiatric hospital Number: [id number] [place] [address] [id number] Repository Date:9547-31-15VZVPIN OF [place], [place] [address]PL: 12/23/2017 Tertiary NOT GIVENUNK [place] Insurance:SELF PAY [facility] Number: Effective Repository Date:2017-12-23 12/18/2017 CHARISSA E Primary CHARISSA E [place] [id number] Insurance:MEDICARE JOHNSONDOB: [facility] Antonia Dimas PART A olicy Number: [id number] [id number] Repository [address]Uwr: (330) Date:2017-12-17 [phone] () 12/18/2017 Secondary CHARISSA E [place] Insurance:MUTUAL OF JOHNSONDOB: Psychiatric hospital Number: [id number] [place] [address] [id number] Repository Date:2179-54-25FVTNQK [place] [address]NV: 12/18/2017 Tertiary NOT GIVENUNK [place] Insurance:SELF PAY [facility] Number: Effective Repository Date:2017-12-18 12/17/2017 CHARISSA E Primary CHARISSA E [place] [id number] Insurance:MEDICARE JOHNSONDOB: [facility] [place] Dr[place] PART A BPolicy Number: [id number] [place] [address] [id number] Repository 89[address]Twv: (326) Date:2017-12-17 [phone] () 12/17/2017 Secondary CHARISSA E [place] Insurance:MUTUAL OF JOHNSONDOB: Psychiatric hospital Number: [id number] [place] [address] [id number] Repository Date:8597-67-56RHXYXY [place] [address]DK: 12/17/2017 Tertiary NOT GIVENUNK [place] Insurance:SELF PAY [facility] Hospital Number: Effective Repository Date:2017-12-17 12/17/2017 CHARISSA E Primary CHARISSA E [place] [id number] Insurance:MEDICARE JOHNSONDOB: [facility] [place] DrLot PART A BPolicy Number: [id number] [place] [address] [id number] Repository [address]14[address]Prn: (463) Date:2017-12-17 [phone] () 12/17/2017 Secondary CHARISSA E [place] Insurance:MUTUAL OF JOHNSONDOB: Psychiatric hospital Number: [id number] [place] [address] [id number] Repository Date:1501-39-64GSYAPX [place], [place] [address]UL: 12/17/2017 Tertiary NOT GIVENUNK [place] Insurance:SELF PAY [facility] Number: Effective Repository Date:2017-12-17 10/21/2017 Charissa E Primary Charissa E [place] [id number] Insurance:MEDICARE JohnsonDOB: [facility] [place] [facility] PART A BPolicy Number: [id number] [id number] Repository [address]Urn: (330) Date:2017-10-21 [phone] () 10/21/2017 Secondary Charissa E [place] Insurance:MUTUAL OF JohnsonDOB: Psychiatric hospital Number: [id number] Hospital [id number] Repository Date:2195-26-44TRLZEI [place], [place] [address]IE: 10/21/2017 Tertiary NOT GIVENUNK [place] Insurance:SELF PAY [facility] Number: Effective Repository Date:2017-10-21 09/14/2017 Charissa E Primary Charissa E [place] [id number] Insurance:MEDICARE JohnsonDOB: Community [place] DrLot PART A BPolicy Number: [id number] [id number] Repository 86[address]Zpg: (330) Date:2017-09-14 [phone] (HP) 09/14/2017 Secondary Charissa E [place] Insurance:MUTUAL OF JohnsonDOB: Psychiatric hospital Number: [id number] [place] [address] [id number] Repository Date:3466-57-60WFASBF [place] [address]FK: 09/14/2017 Tertiary NOT GIVENUNK [place] Insurance:SELF PAY [facility] Number: Effective Repository Date:2017-09-14 09/11/2017 Charissa E Primary Charissa E [place] [id number] Insurance:MEDICARE JohnsonDOB: [facility] [place] [facility] PART A BPolicy Number: [id number] [id number] Repository [address]Hil: (330) Date:2017-09-11 [phone] (HP) 09/11/2017 Secondary Charissa E [place] Insurance:MUTUAL OF JohnsonDOB: Psychiatric hospital Number: [id number] [place] [address] [id number] Repository Date:0426-43-70RLIZIV OF [facility], [place] [address]CO: 09/11/2017 Tertiary NOT GIVENUNK [place] Insurance:SELF PAY [facility] Number: Effective Repository Date:2017-09-11 09/06/2017 Charissa E Primary Charissa E [place] [id number] Insurance:MEDICARE JohnsonDOB: [facility] [place] [facility] PART A BPolicy Number: [id number] [id number] Repository [address]Sdn: (339) Date:2017-09-06 [phone] () 09/06/2017 Secondary Charissa E [place] Insurance:MUTUAL OF JohnsonDOB: Psychiatric hospital Number: [id number] Hospital [id number] Repository Date:0920-88-88JVHOARCHARLOTTE, [place] [address]RO: 09/06/2017 Tertiary NOT GIVENUNK [place] Insurance:SELF PAY [facility] Hospital Number: Effective Repository Date:2017-09-06 08/27/2017 Charissa E Primary Charissa E [place] [id number] Insurance:MEDICARE JohnsonDOB: [facility] [place] [facility] PART A BPolicy Number: [id number] [id number] Repository 133[address]Dql: (299) Date:2017-08-27 [phone] () 08/27/2017 Secondary Charissa E [place] Insurance:MUTUAL OF JohnsonDOB: Psychiatric hospital Number: [id number] [place] [address] [id number] Repository Date:5409-40-45MHIRFRCHARLOTTE, [place] [address]OD: 08/27/2017 Tertiary NOT GIVENUNK [place] Insurance:SELF PAY [facility] Number: Effective Repository Date:2017-08-27 08/08/2017 Charissa E Primary Charissa E [place] [id number] Insurance:MEDICARE JohnsonDOB: [facility] [place] [facility] PART A BPolicy Number: [id number] [id number] Repository [address]Mid: (530) Date:2017-07-21 [phone] (HP) 08/08/2017 Secondary Charissa E [place] Insurance:MUTUAL OF JohnsonDOB: Psychiatric hospital Number: [id number] Hospital [id number] Repository Date:6396-78-82LKQUXT [place] [address]DQ: 08/08/2017 Tertiary NOT GIVENUNK [place] Insurance:SELF PAY [facility] Number: Effective Repository Date:2017-07-21 08/04/2017 Charissa E Primary Charissa E [place] [id number] Insurance:MEDICARE JohnsonDOB: [facility] [place] PART A olicy Number: [id number] [id number] Repository 55[address]Qaq: (012) Date:2017-08-04 [phone] () 08/04/2017 Secondary Charissa E [place] Insurance:MUTUAL OF JohnsonDOB: Psychiatric hospital Number: [id number] Hospital [id number] Repository Date:8502-11-72FKFLHM [place] [address]FJ: 08/04/2017 Tertiary NOT GIVENUNK [place] Insurance:SELF PAY [facility] Number: Effective Repository Date:2017-08-04 07/27/2017 Charissa E Primary Charissa E [facility] JohnsonDOB: Insurance:MedicarePoli JohnsonDOB: System [id number] cy Number: Effective [id number] Repository [place] Date: [place], [place] [address]Rkb: (HP) 07/27/2017 Secondary Charissa E [facility] Insurance:MedicarePoli JohnsonDOB: System cy Number: Effective [id number] Repository Date: 07/27/2017 Tertiary Charissa E [facility] Insurance:[place] of JohnsonDOB: [facility] [place] [facility] [id number] Repository Number: Effective Date: 07/26/2017 Charissa E Primary Charissa E [place] [id number] Insurance:MEDICARE JohnsonDOB: Community [place] Dim[place] PART A BPolicy Number: [id number] [id number] Repository 326[address]Mpz: (330) Date:2017-07-26 [phone] () 07/26/2017 Secondary Charissa E [place] Insurance:MUTUAL OF JohnsonDOB: Psychiatric hospital Number: [id number] Hospital [id number] Repository Date:4308-80-34HOZSNW [place] [address]LF: 07/26/2017 Tertiary NOT GIVENUNK [place] Insurance:SELF PAY [facility] Number: Effective Repository Date:2017-07-26 07/21/2017 Charissa E Primary Charissa E [place] [id number] Insurance:MEDICARE JohnsonDOB: [facility] Antonia Dimas PART A BPolicy Number: [id number] [id number] Repository [address]Pwy: (330) Date:2017-07-21 [phone] () 07/21/2017 Secondary Charissa E [place] Insurance:MUTUAL OF JohnsonDOB: Psychiatric hospital Number: [id number] Hospital [id number] Repository Date:2935-44-56KFXQUZCARY, [place] [address]NU: 07/21/2017 Tertiary NOT GIVENUNK [place] Insurance:SELF PAY [facility] Number: Effective Repository Date:2017-07-21 07/20/2017 CHARISSA E Primary CHARISSA E BassamMMIS JOHNSONDOB: Insurance:MEDICARE JOHNSONDOB: [facility] [id number] PART BPolicy Number: [id number] Repository ANTONIA ANABEL [id number] 0 [address]LE [address] [place] [address] Date:2017-07-[address] [place] [address] 897[address]Loo: (051) [id number] 57[address]Kyo: () Name:[facility] [id number] Administrators LLCPO ()Tel: (000 [address] [address]Tpuufakqv, [place] 000-0000 (WP) [address]RF: 07/20/2017 Secondary CHARISSA E [facility] Insurance:MUTUAL OF JOHNSONDOB: [facility] Number: [id number] Repository [id number] 0 [address]IA [address] Date:2017-07-[address] [place] [address] [id number] 72504Yoi: (330) Name:CMUTUAL [address] ()Tel: 000 225[address]SY: (WP) [phone] 06/29/2017 Charissa E Primary Charissa E [place] [id number] Insurance:MEDICARE JohnsonDOB: [facility] Antonia DrAnabel PART A BPolicy Number: [id number] [id number] Repository [address]Bxo: (330) Date:[phone] () 06/29/2017 Secondary Charissa E [place] Insurance:MUTUAL OF [place]: Psychiatric hospital Number: [id number] Hospital [id number] Repository Date:4835-97-83FJDFYH OF [place], [place] [address]TE: 06/29/2017 Tertiary NOT GIVENUNK [place] Insurance:SELF PAY [facility] Number: Effective Repository Date:2017-06-22 06/22/2017 Charissa E Primary Charissa E [place] [id number] Insurance:MEDICARE JohnsonDOB: [facility] Antonia DrAnabel PART A BPolicy Number: [id number] [id number] Repository [address]Bxg: (330) Date:[phone] () 06/22/2017 Secondary Charissa E [place] Insurance:MUTUAL OF [place]: Psychiatric hospital Number: [id number] Hospital [id number] Repository Date:4016-18-71TEFKBL [place], [place] [address]ML: 06/22/2017 Tertiary NOT GIVENUNK [place] Insurance:SELF PAY [facility] Number: Effective Repository Date:2017-06-22 06/11/2017 Charissa E Primary Charissa E [place] [id number] Insurance:PAVILLION JohnsonDOB: [facility] [id number] Number: Repository [address]Qsl: (063) [id number] [phone] (HP) Date:2017-06-11 06/11/2017 Secondary Charissa E [place] Insurance:MEDICARE JohnsonDOB: Community PART A BPolicy Number: [id number] Hospital [id number] Repository Date:2017-06-11 06/11/2017 Tertiary Charissa E [place] Insurance:MUTUAL OF JohnsonDOB: Psychiatric hospital Number: [id number] Hospital [id number] Repository Date:6448-86-94REDYFM [place], [place] [address]WV: 06/11/2017 Tertiary NOT GIVENUNK [place] Insurance:SELF PAY [facility] Number: Effective Repository Date:2017-06-11 06/05/2017 CHARISSA E Primary CHARISSA E [facility] JOHNSONDOB: Insurance:MEDICARE A JOHNSONDOB: Health System AND BPolicy Number: [id number] [facility] [id number] [address] [place] [address] Date: 97[address]Yil: () 06/05/2017 Secondary CHARISSA E [facility] Insurance:MUTUAL OF JOHNSONDOB: [facility] MEDICARE [id number] [facility]ository [facility] Number: [id number] Date: 06/01/2017 Charissa E Primary Charissa E Jerome [id number] Insurance:MEDICARE JohnsonDOB: [facility] PART A BPolicy Number: [id number] [id number] Repository [address]Kji: (769) Date:2017-06-01 [phone] (HP) 06/01/2017 Secondary Charissa E [place] Insurance:MUTUAL OF [place]: Psychiatric hospital Number: [id number] Hospital [id number] Repository Date:2561-82-58ILYRAO [place] [address]JT: 06/01/2017 Tertiary NOT GIVENUNK [place] Insurance:SELF PAY [facility] Number: Effective Repository Date:2017-06-01 05/29/2017 Charissa E Primary Charissa E [place] [id number] Insurance:MEDICARE JohnsonDOB: [facility] Judie PART A [facility] Number: [id number] [id number] Repository 14[address]Ndm: (824) Date:2017-05-29 [phone] () 05/29/2017 Secondary Charissa E Jerome Insurance:MUTUAL OF [place]: Psychiatric hospital Number: [id number] Hospital [id number] Repository Date:5174-71-34JUKFCU [place] [address]IQ: 05/29/2017 Tertiary NOT GIVENUNK [place] Insurance:SELF PAY [facility] Number: Effective Repository Date:2017-05-29 04/24/2017 Charissa E Primary Charissa E [place] [id number] Insurance:MEDICARE JohnsonDOB: [facility] [place] PART A olicy Number: [id number] [id number] Repository 375[address]Qlv: (379) Date:2017-04-23 [phone] () 04/24/2017 Secondary Charissa E Jerome Insurance:MUTUAL OF [place]: Psychiatric hospital Number: [id number] Hospital [id number] Repository Date:9991-67-72ETLPHBCHARLOTTE, [place] [address]YX: 04/24/2017 Tertiary NOT GIVENUNK [place] Insurance:SELF PAY [facility] Number: Effective Repository Date:2017-04-24 04/24/2017 Charissa E Primary Charissa E Jerome [id number] Insurance:MEDICARE JohnsonDOB: Community Antonia DrLot PART A olicy Number: [id number] [place] [address] [id number] Repository 613[address]Yeh: (330) Date:2017-04-23 [phone] () 04/24/2017 Secondary Charissa E [place] Insurance:MUTUAL OF JohnsonDOB: Psychiatric hospital Number: [id number] [place] [address] [id number] Repository Date:7899-69-74NKPMJF [place] [address]BJ: 04/24/2017 Tertiary NOT GIVENUNK [place] Insurance:SELF PAY [facility] Number: Effective Repository Date:2017-04-24 04/23/2017 Charissa E Primary Charissa E [place] [id number] Insurance:MEDICARE JohnsonDOB[facility] A [facility] Number: [id number] [place] [address] [id number] Repository 256[address]Ndt: (379) Date:2017-04-23 [phone] () 04/23/2017 Secondary Charissa E Jerome Insurance:MUTUAL OF JohnsonDOB: Psychiatric hospital Number: [id number] [place] [address] [id number] Repository Date:1290-81-63GEDCCE OF [place], [place] [address]DN: 04/23/2017 Tertiary NOT GIVENUNK [place] Insurance:SELF PAY [facility] Number: Effective Repository Date:2017-04-23 04/23/2017 Charissa E Primary Charissa E Jerome [id number] Insurance:MEDICARE JohnsonDOB: [facility] [place] DrLot PART A [facility] Number: [id number] [place] [address] [id number] Repository [address]Tnh: (330) Date:2017-04-23 [phone] () 04/23/2017 Secondary Charissa E Jerome Insurance:MUTUAL OF JohnsonDOB: Psychiatric hospital Number: [id number] Hospital [id number] Repository Date:7818-16-14CYCYWY OF [place] [address]QJ: 04/23/2017 Tertiary NOT GIVENUNK [place] Insurance:SELF PAY [facility] Number: Effective Repository Date:2017-04-23 04/23/2017 Charissa E Primary Charissa E [place] [id number] Insurance:MEDICARE JohnsonDOB: [facility] PART A BPolicy Number: [id number] [id number] Repository [address]Cax: 330) Date:2017-04-23 [phone] () 04/23/2017 Secondary Charissa E [place] Insurance:MUTUAL OF JohnsonDOB: Psychiatric hospital Number: [id number] [place] [address] [id number] Repository Date:4303-33-99GOWPSY OF [place], [place] [address]EJ: 04/23/2017 Tertiary NOT GIVENUNK [place] Insurance:SELF PAY [facility] Number: Effective Repository Date:2017-04-23
== END 2018-01-06 12:55 | disposition home or self-care (01) ==
LOC: ED 20:34 → PCU 21:50
PROVIDERS: Admitting Provider Hospitalist; Emergency Provider Emergency Medicine; Family Provider Family Medicine Geriatric Medicine; PCP Family Medicine Geriatric Medicine; Visit Provider Family Medicine
DX: R07.89 Other chest pain (principal); R55 Syncope and collapse; I25.10 Atherosclerotic heart disease of native coronary artery without angina pectoris; J44.9 Chronic obstructive pulmonary disease, unspecified; F41.9 Anxiety disorder, unspecified; I27.21 Secondary pulmonary arterial hypertension; E78.5 Hyperlipidemia, unspecified; G47.33 Obstructive sleep apnea (adult) (pediatric); F13.20 Sedative, hypnotic or anxiolytic dependence, uncomplicated; F32.9 Major depressive disorder, single episode, unspecified; E03.9 Hypothyroidism, unspecified; Z79.899 Other long term (current) drug therapy; Z79.82 Long term (current) use of aspirin; Z79.02 Long term (current) use of antithrombotics/antiplatelets; Z95.1 Presence of aortocoronary bypass graft; Z86.73 Personal history of transient ischemic attack (TIA), and cerebral infarction without residual deficits; F17.200 Nicotine dependence, unspecified, uncomplicated; I10 Essential (primary) hypertension
CPT/HCPCS: 36415; 71045; 73521; 78452; 80048; 84484; 85025; 85027; 85610; 85730; 93005; 93017; 94640; 97162; 97165; 99218; 99285; A9500; J7030; A4216; G0378; J2785

== ENCOUNTER → 2018-02-10 12:02 | Outpatient (CLI) | payer MEDICARE, OTHER, SELFPAY ==
[2017-12-28 13:50] VITALS: BMI 29.2
[2018-01-29 11:54] VITALS: BMI 29.5
[2018-02-10 12:50] LABS: Basophil# 0.04 X10^3/uL; Basophil% 0.4 % (0-1); Eosinophil# 0.21 X10^3/uL; Eosinophils% 1.9 % (0-5); Hematocrit 41.4 % (37-47); Hemoglobin 13.1 g/dl (12.0-15.0); Lymphocyte % 26.8 % (19-41); Mean Corp Hgb Conc 31.6 g/gl (32-36); Mean Corpuscular Hgb 27.7 pg (27.0-32.0); Mean Corpuscular Volume 87.5 fL (81-99); Mean Platelet Vol. 11.4 fl (6.2-12.0); Monocyte# 0.63 X10^3/uL; Monocyte% 5.8 % (0-10); Neutrophil # 7.01 X10^3/uL (2.7-7.7); Neutrophil % 64.9 % (47-70); Platelet Count 309 K/mm3 (150-450); RBC Distribution Width CV 15.8 % (11.6-14.6); Red Blood Count 4.73 M/mm3 (4.2-5.4); White Blood Count 10.8 K/mm3 (4.4-11.0)
[2018-02-10 12:51] LABS: POSITIVE COUNT NO; POSITIVE DIFFERENTIAL NO; POSITIVE MORPHOLOGY NO
[2018-02-10 13:21] LABS: ALB/GLOB Ratio 0.9 RATIO (0.9-2.4); AST(SGOT) 18 U/L (15-37); Alanine Aminotransfer ALT/SGPT 25 U/L (13-56); Albumin, Serum 3.5 g/dL (3.2-5.0); Alkaline Phosphatase 118 U/L (45-117); Anion Gap 6 (5-15); BUN 19 mg/dL (7-18); BUN/Creat Ratio 23.2 RATIO (10-20); Calcium,Total 8.7 mg/dL (8.5-10.1); Chloride 104 mmol/L (98-107); Creatinine, Serum 0.82 mg/dL (0.55-1.02); EST Glomerular Filtration Rate 73 mL/min (>60); Est Glom Filt Rate - Afr Amer 89 mL/min (>60); Globulin 3.7 g/dL (2.2-4.2); Glucose 115 mg/dL (74-106); Potassium 4.2 mmol/L (3.5-5.1); Protein, Total 7.2 g/dL (6.4-8.2); Sodium Level 137 mmol/L (136-145); Thyroid Stim Hormone (TSH) 0.88 uIU/mL (0.358-3.74)
[2018-02-10 13:38] LABS: Vitamin D,25 Hydroxy 30.9 ng/mL (29.95-100.01)
== END ==
PROVIDERS: Family Provider Family Medicine Geriatric Medicine; PCP Family Medicine Geriatric Medicine; Visit Provider Family Medicine Geriatric Medicine
DX: E55.9 Vitamin D deficiency, unspecified (principal); I10 Essential (primary) hypertension
CPT/HCPCS: 36415; 80053; 82306; 84443; 85025

== ENCOUNTER → 2018-03-03 13:38 | Outpatient (CLI) | payer MEDICARE, OTHER, SELFPAY ==
[2017-12-28 13:50] VITALS: BMI 29.2
[2018-01-29 11:54] VITALS: BMI 29.5
--- NOTE | 2018-03-03 13:42 | ECHOD_ITS ---
Reason For Study: S/P CABG Procedure This was a 2D Doppler, Color Flow transthoracic echocardiogram. Exam performed in department. Left Ventricle Normal LV size. Left ventricular systolic function is normal. The estimated ejection fraction is 60 %. Stage 3 diastolic dysfunction. No regional wall motion abnormalities noted. Right Ventricle Normal RV size. Normal systolic function. Atria Normal left atrium. Normal right atrium. Mitral Valve Normal mitral valve. Tricuspid Valve Normal tricuspid valve. Mild (1+) tricuspid valve insufficiency. Pulmonary artery systolic pressure is 30 mmHg. Aortic Valve Trisinus/trileaflet aortic valve. Pulmonic Valve Normal pulmonic valve. Great Vessels Normal aortic root. The pulmonary artery is normal size. Normal inferior vena cava. Pericardium/Pleural No pericardial effusion. MMode/2D Measurements & Calculations LVIDd: 4.5 cm IVSd: 1.1 cm Ao root diam: 2.8 cm LVIDs: 3.2 cm LVPWd: 1.2 cm FS: 30.2 % LAV(MOD-bp): 65.6 ml EDV(MOD-sp4): 67.0 ml EDV(MOD-sp2): 54.6 ml LAV(MOD-bp) Indexed: 39.0 ml/m2 ESV(MOD-sp4): 27.1 ml EF(MOD-sp2): 70.5 % LAV(MOD-sp2): 61.9 ml EF(MOD-sp4): 59.5 % LAV(MOD-sp4): 61.0 ml SV(MOD-sp4): 39.8 ml SV(MOD-sp2): 38.5 ml LA A4 area: 19.8 cm2 LA dimension(2D): 4.6 cm RA A4 area: 18.3 cm2 Time Measurements MV dec time: 0.19 sec Doppler Measurements & Calculations MV E max nabil: 72.2 cm/sec Lat Peak E' Nabil: 8.3 cm/sec Med Peak E' Nabil: 3.8 cm/sec MV A max nabil: 63.8 cm/sec E/E' lat: 8.7 E/E' med: 19.0 MV E/A: 1.1 Ao V2 max: 115.0 cm/sec LV V1 max: 92.9 cm/sec PA V2 max: 82.2 cm/sec Ao max P.3 mmHg LV V1 max P.5 mmHg PI end-d nabil: 127.5 cm/sec TR max nabil: 254.4 cm/sec TR max P.9 mmHg Interpretation Summary Normal LV size. Left ventricular systolic function is normal. The estimated ejection fraction is 60 %. Stage 3 diastolic dysfunction. Mild (1+) tricuspid valve insufficiency. Ordering Physician: Gordy Pedroza Referring Physician: CHEMA BRANDT CHI Performed By: Chrissy Amanda, SABINA, RVT
--- OUTSIDE RECORDS SUMMARY | 2018-05-05 12:47 | XMS RPT_ITS ---
:1945 Author Organization [place] Support Name Relationship Address Phone CHEYANNE WALLACE Unavailable [address] + [place] [address] MADISON SANTA Unavailable [address] + [place] [address] R Unavailable Unavailable Unavailable CHEYANNE WALLACE Unavailable [address] + [place] [address] SANTA WALLACE Unavailable [address] + [place] [address] R Unavailable Unavailable Unavailable CHEYANNE WALLACE Unavailable [address] + [place] [address] SANTA WALLACE Unavailable [address] + [place] [address] R Unavailable Unavailable Unavailable CHEYANNE WALLACE Unavailable [address] + [place] [address] SANTA WALLACE Unavailable [address] + [place] [address] R Unavailable Unavailable Unavailable CHEYANNE WALLACE Unavailable [address] + [place] [address] SANTA WALLACE Unavailable [address] + [place] [address] R Unavailable Unavailable Unavailable CHEYANNE WALLACE Unavailable [address] + [place] [address] SANTA WALLACE Unavailable [address] + [place] [address] R Unavailable Unavailable Unavailable CHEYANNE WALLACE Unavailable [address] + [place] [address] SANTA WALLACE Unavailable [address] + [place] [address] R Unavailable Unavailable Unavailable CHEYANNE WALLACE Unavailable [address] + [place] [address] MADSIONJESSYSANTA Unavailable [address] + [place] [address] R Unavailable Unavailable Unavailable CHEYANNE WALLACE Unavailable [address] + [place] [address] MADISONJESSYSANTA Unavailable [address] + [place] [address] R Unavailable Unavailable Unavailable CHEYANNE WALLACE Unavailable [address] + [place] [address] MADISONJESSYSANTA Unavailable [address] + [place] [address] R Unavailable Unavailable Unavailable CHEYANNE WALLACE Unavailable [address] + [place] [address] MADISONJESSYSANTA Unavailable [address] + [place] [address] R Unavailable Unavailable Unavailable CHEYANNE WALLACE Unavailable [address] + [place] [address] MADISONJESSYSANTA Unavailable [address] + [place] [address] R Unavailable Unavailable Unavailable CHEYANNE WALLACE Unavailable [address] + [place] [address] MADISONJESSYSANTA Unavailable [address] + [place] [address] R Unavailable Unavailable Unavailable CHEYANNE WALLACE Unavailable [address] + [place] [address] MADISONJESSYSANTA Unavailable [address] + [place] [address] R Unavailable Unavailable Unavailable CHEYANNE WALLACE Unavailable [address] + [place] [address] MADISONJESSYSANTA Unavailable [address] + [place] [address] R Unavailable Unavailable Unavailable CHEYANNE WALLACE Unavailable [address] + [place] [address] MADISONJESSYSANTA Unavailable [address] + [place] [address] R Unavailable Unavailable Unavailable CHEYANNE WALLACE Unavailable [address] + [place] [address] MADISONJESSYSANAT Unavailable [address] + [place] [address] R Unavailable Unavailable Unavailable CHEYANNE WALLACE Unavailable [address] + [place] [address] MADISONJESSYSANTA Unavailable [address] + [place] [address] R Unavailable Unavailable Unavailable CHEYANNE WALLACE Unavailable [address] + [place] [address] MADISONJESSYSANTA Unavailable [address] + [place] [address] R Unavailable Unavailable Unavailable CHEYANNE WALLACE Unavailable [address] + [place] [address] MADISONJESSYSANTA Unavailable [address] + [place] [address] R Unavailable Unavailable Unavailable CHEYANNE WALLACE Unavailable [address] + [place] [address] MADISONJESSYSANTA Unavailable [address] + [place] [address] R Unavailable Unavailable Unavailable CHEYANNE WALLACE Unavailable [address] + [place] [address] MADISONJESSYSANTA Unavailable [address] + [place] [address] R Unavailable Unavailable Unavailable CHEYANNE WALLACE Unavailable [address] + [place] [address] MADISONJESSYSANTA Unavailable [address] + [place] [address] R Unavailable Unavailable Unavailable CHEYANNE WALLACE Unavailable [address] + [place] [address] MADSIONJESSYSANTA Unavailable [address] + [place] [address] R Unavailable Unavailable Unavailable CHEYANNE WALLACE Unavailable [address] + [place] [address] MADISONJESSYSANTA Unavailable [address] + [place] [address] R Unavailable Unavailable Unavailable MadisonJessySanta Unavailable Unavailable + Madison Cheyanne Unavailable Unavailable + MADISON CHEYANNE Unavailable [address] + [place] [address] JESSY WALLACEODY Unavailable [address] + [place] [address] R Unavailable Unavailable Unavailable MADISON CHEYANNE Unavailable [address] + [place] [address] JESSY WALLACEODY Unavailable [address] + [place] [address] R Unavailable Unavailable Unavailable MADISON CHEYANNE Unavailable Unavailable + JESSY WALLACEODY Unavailable Unavailable + MADISON CHEYANNE Unavailable [address] + [place] [address] SANTA WALLACE Unavailable [address] + [place] [address] R Unavailable Unavailable Unavailable MADISON CHEYANNE Unavailable [address] + [place] [address] SANTA WALLACE Unavailable [address] + [place] [address] R Unavailable Unavailable Unavailable MADISONJOYIE Unavailable [address] + [place] [address] SANTA WALLACE Unavailable [address] + [place] [address] R Unavailable Unavailable Unavailable MADISONJOYIE Unavailable [address] + [place] [address] JESSY WALLACEODY Unavailable [address] + [place] [address] R Unavailable Unavailable Unavailable MADISON CHEYANNE Unavailable [address] + [place] [address] JESSY WALLACEODY Unavailable [address] + [place] [address] R Unavailable Unavailable Unavailable MADISON CHEYANNE Unavailable [address] + [place] [address] MADISONJESSYSANTA Unavailable [address] + [place] [address] R Unavailable Unavailable Unavailable CHEYANNE WALLACE Unavailable [address] + [place] [address] JESSY WALLACEODY Unavailable [address] + [place] [address] R Unavailable Unavailable Unavailable CHEYANNE WALLACE Unavailable [address] + [place] [address] JESSY WALLACEODY Unavailable [address] + [place] [address] R Unavailable Unavailable Unavailable CHEYANNE WALLACE Unavailable [address] + [place] [address] JESSY WLALACEODY Unavailable [address] + [place] [address] R Unavailable Unavailable Unavailable CHEYANNE WALLACE Unavailable [address] + [place] [address] SANTA WALLACE Unavailable [address] + [place] [address] R Unavailable Unavailable Unavailable Care Team Providers Name Role Phone Humberto Dela Cruz Attending Unavailable Yovany, Gordy Referring Unavailable Yovany, Woodlawn Attending Unavailable Zachariah Lawrence Referring Unavailable Yovany, Gordy Attending Unavailable Melinda Zachariah Referring Unavailable Tiera Beck Attending Unavailable Yovany, Woodlawn Attending Unavailable Ricardo, Ino Chi Referring Unavailable Ganta, Ashley Primary Care Unavailable Ashelfah, Ghasem Admitting Unavailable Sementi, Monalisa Attending Unavailable Ashelfah, Ghasem Admitting Unavailable Ashelfah, Ghasem Attending Unavailable Ganta, Ashley Primary Care Unavailable Ashelfah, Ghasem Consulting Unavailable Ashelfah, Ghasem Admitting Unavailable Sementi, Monalisa Attending Unavailable Ganta, Ashley Primary Care Unavailable Sementi, Monalisa Consulting Unavailable Sementi, Monalisa Attending Unavailable Humberto Dela Cruz Attending Unavailable Ashelfah, Ghasem Referring Unavailable Ricardo, Ino Chi Attending Unavailable Ricardo, Ino Chi Primary Care Unavailable Yovany, Woodlawn Attending Unavailable Yovany, Woodlawn Referring Unavailable Ricardo, Ino Chi Primary Care Unavailable Yovany, Woodlawn Attending Unavailable Yovany, Gordy Referring Unavailable Ricardo, Ino Chi Primary Care Unavailable Yovany, Gordy Consulting Unavailable PROVIDER, ED PHYSICIAN Attending Unavailable Ganta, [...] Care Unavailable Ricardo, Ino Chi Referring Unavailable Kilner, Tiera Attending Unavailable Yovany, Woodlawn Attending Unavailable Ricardo, Ino Chi Referring Unavailable Kilner, Tiera Attending Unavailable Yovany, Woodlawn Attending Unavailable Yovany, Woodlawn Referring Unavailable Ricardo, Ino Chi Primary Care Unavailable Kilner, Tiera Attending Unavailable Yovany, Woodlawn Attending Unavailable Yovany, Woodlawn Referring Unavailable Ricardo, Ino Chi Primary Care Unavailable Yovany, Gordy Consulting Unavailable Ricardo, Ino Chi Primary Care Unavailable Agyepong, Zachariah Admitting Unavailable KotsonisGeoffreyCruz F Attending Unavailable Agyepong, Zachariah Admitting Unavailable Agyepong, Zachariah Attending Unavailable Ricardo, Ino Chi Primary Care Unavailable Agyepong, Zachariah Consulting Unavailable Agyepong, Zachariah Admitting Unavailable Ricardo, Ino Chi Primary Care Unavailable Kotsonis Cruz F Consulting Unavailable Cruz Roberts F Attending Unavailable KATI TENORIO, DR. ASHLEY Wilson Primary Care Unavailable LAYA TENORIO, MATA Consulting Unavailable AB LAZCANO Attending Unavailable KATI TENORIO, DR. ASHLEY Wilson Referring Unavailable MOSES HINES (RESIDENTIAL APPRAISER) Attending Unavailable RAUL KUMAR Referring Unavailable RAUL KUMAR Referring Unavailable PINKY CONTRERAS Attending Unavailable ASHLEY PARIKH Referring Unavailable MOSES HINES (RESIDENTIAL APPRAISER) Referring Unavailable YUN BOLAÑOS Attending Unavailable MOSES HINES (RESIDENTIAL APPRAISER) Referring Unavailable CHAPARRO CASIANO Attending Unavailable CHAPARRO CASIANO Referring Unavailable IMCA Primary Care Unavailable PROVIDER, UNKNOWN Referring Unavailable RICARDO, INO-CHI Primary Care Unavailable JOSEE LEYVA Attending Unavailable PROBLEMS PROBLEMS DATE TYPE CONDITION / CODE ATTENDING STATUS SOURCE Unknown I25.810 - Yovany, Gordy Active [facility] Atherosclerosis of Community coronary artery bypass Hospital graft(s) without Repository angina pectoris / I25.810(ICD-10) Unknown R94.31 - Abnormal Yovany, Woodlawn Active [facility] 8 electrocardiogram Community [ECG] [EKG] / Hospital R94.31(ICD-10) Repository Unknown R07.9 - Chest pain, Yovany, Gordy Active [facility] unspecified / Community R07.9(ICD-10) Hospital Repository Unknown I10 - Essential Yovany, Woodlawn Active [facility] (primary) hypertension Community / I10(ICD-10) Hospital Repository Unknown Z95.1 - Presence of Yovany, Woodlawn Active [facility] 8 aortocoronary bypass Community graft / Z95.1(ICD-10) Hospital Repository Unknown N39.0 - Urinary tract Ricardo, Ino Chi Active [facility] infection, site not Community specified / Hospital N39.0(ICD-10) Repository Unknown R06.02 - Shortness of Ricardo, Ino Chi Active [facility] 8 breath / Community R06.02(ICD-10) Hospital Repository Unknown R10.9 - Unspecified Ricardo, Ino Chi Active [facility] abdominal pain / Community R10.9(ICD-10) Hospital Repository Unknown D64.9 - Anemia, Ricardo, Ino Chi Active [facility] unspecified / Community D64.9(ICD-10) Hospital Repository Unknown E78.4 - Other Ricardo, Ino Chi Active [facility] 8 hyperlipidemia / Community E78.4(ICD-10) Hospital Repository Admitting Gastrointestinal AUTUMN [employer] Diagnosis hemorrhage, [facility] System unspecified / Repository K92.2(ICD-10) Admitting Melena / K92.1(ICD-10) AUTUMN [facility] [employer] Diagnosis [facility] Repository Admitting Acute posthemorrhagic AUTUMN [employer] 8 Diagnosis anemia / D62(ICD-10) [facility] Repository Admitting half-way (current) AUTUMN [employer] Diagnosis use of [facility] System antithrombotics/antipl Repository atelets / Z79.02(ICD-10) Admitting terminal supervisor (current) AUTUMN [employer] Diagnosis use of aspirin / [facility] Z79.82(ICD-10) Repository Admitting Essential (primary) AUTUMN [employer] Diagnosis hypertension / [facility] I10(ICD-10) Repository Admitting Hyperlipidemia, AUTUMN [employer] Diagnosis unspecified / [facility] E78.5(ICD-10) Repository Admitting Prsnl hx of TIA (TIA), AUTUMN [employer] 8 Diagnosis and cereb infrc w/o [facility] System resid deficits / Repository Z86.73(ICD-10) Admitting Nicotine dependence, [facility]N [facility] 8 Diagnosis cigarettes, [facility] System uncomplicated / Repository F17.210(ICD-10) Admitting Athscl heart disease [facility] Diagnosis of unga coronary [facility] System artery w/o ang pctrs / Repository I25.10(ICD-10) Admitting Presence of coronary [facility]UMN [facility] 8 Diagnosis angioplasty implant [facility] and graft / Repository Z95.5(ICD-10) Admitting Presence of AUTUMN [employer] 8 Diagnosis aortocoronary bypass [facility] graft / Z95.1(ICD-10) Repository Admitting Hypothyroidism, AUTUMN [facility] 8 Diagnosis unspecified / [facility] E03.9(ICD-10) Repository Admitting Sciatica, unspecified [facility], [employer] 8 Diagnosis side / M54.30(ICD-10) [facility] Repository Admitting Anxiety disorder, [facility], [facility] 8 Diagnosis unspecified / [facility] F41.9(ICD-10) Repository Admitting Gastro-esophageal [facility], [facility] 8 Diagnosis reflux disease without [facility] esophagitis / Repository K21.9(ICD-10) Admitting Diaphragmatic hernia [facility], [facility] 8 Diagnosis without obstruction or [facility] gangrene / Repository K44.9(ICD-10) Admitting Restless legs syndrome [facility], [facility] 8 Diagnosis / G25.81(ICD-10) [facility] Repository Admitting Other chronic pain / [facility], [facility] 8 Diagnosis G89.29(ICD-10) [facility] Repository Admitting Obesity, unspecified / [facility], Active [employer] 8 Diagnosis E66.9(ICD-10) [facility] Repository Admitting Body mass index (BMI) [facility], [facility] 8 Diagnosis 31.0-31.9, adult / [facility] Z68.31(ICD-10) Repository Admitting Hypocalcemia / [facility], [employer] 8 Diagnosis E83.51(ICD-10) [facility] Repository Unknown R19.7 - Diarrhea, Rd, Active [facility] unspecified / [facility] R19.7(ICD-10) Hospital Repository Active Nicotine dependence, NA Active [facility] [facility] unspecified, Clinic Main uncomplicated / [place] F17.200(ICD-10) Repository Active Emphysema, unspecified NA Active [facility] / J43.9(ICD-10) Clinic Main [place] Repository Unknown M54.16 - BasalGeorg[place] blankenship Active [facility] 8 Radiculopathy, lumbar Community region / Hospital M54.16(ICD-10) Repository Unknown F11.20 - Opioid [place] Active [facility] dependence, Community uncomplicated / Hospital F11.20(ICD-10) Repository Unknown M54.9 - Dorsalgia, Rasheed, Active [facility] 8 unspecified / [facility] M54.9(ICD-10) Hospital Repository Active Contusion of left hip, NA Active [facility] 8 initial encounter / Clinic Main S70.02XA(ICD-10) [place] Repository Active Contusion of left NA Active [facility] 8 thigh, initial Clinic Main encounter / [place] S70.12XA(ICD-10) Repository Active Unknown / UNK(Unknown) NA Active [facility] 8 Clinic Main [place] Repository PROCEDURES PROCEDURES No Procedure Records FoundRESULTS RESULTS ECHOCARDIOGRAM COMPLETE Observed: 03/03/2018 Status: F Source: [place] 5:17 PM [facility] REPOSITORY [facility] Cardiovascular Services [address] [place] [address] Echo Complete 03/03/18 1347 MR#: [id number] Acct: [id number] Name: CHARISSA WALLACE Rep #: [id number] : 1945 72 From: Gordy Pedroza MD Attending Dr: Gordy Pedroza MD Status: REG CLI Ordering Dr: Gordy Pedroza MD Date: 03/03/18 Location: [facility] Sex: F C Admitted: Reason For Study: S/P CABG Procedure This was a 2D Doppler, Color Flow transthoracic echocardiogram. Exam performed in department. Left Ventricle Normal LV size. Left ventricular systolic function is normal. The estimated ejection fraction is 60 %. Stage 3 diastolic dysfunction. No regional wall motion abnormalities noted. Right Ventricle Normal RV size. Normal systolic function. Atria Normal left atrium. Normal right atrium. Mitral Valve Normal mitral valve. Tricuspid Valve Normal tricuspid valve. Mild (1+) tricuspid valve insufficiency. Pulmonary artery systolic pressure is 30 mmHg. Aortic Valve Trisinus/trileaflet aortic valve. Pulmonic Valve Normal pulmonic valve. Great Vessels Normal aortic root. The pulmonary artery is normal size. Normal inferior vena cava. Pericardium/Pleural No pericardial effusion. MMode/2D Measurements AND Calculations LVIDd: 4.5 cm IVSd: 1.1 cm Ao root diam: 2.8 cm LVIDs: 3.2 cm LVPWd: 1.2 cm FS: 30.2 % LAV(MOD-bp): 65.6 ml EDV(MOD-sp4): 67.0 ml EDV(MOD-sp2): 54.6 ml LAV(MOD-bp) Indexed: 39.0 ml/m2 ESV(MOD-sp4): 27.1 ml EF(MOD-sp2): 70.5 % LAV(MOD-sp2): 61.9 ml EF(MOD-sp4): 59.5 % LAV(MOD-sp4): 61.0 ml SV(MOD-sp4): 39.8 ml SV(MOD-sp2): 38.5 ml LA A4 area: 19.8 cm2 LA dimension(2D): 4.6 cm RA A4 area: 18.3 cm2 Time Measurements MV dec time: 0.19 sec Doppler Measurements AND Calculations MV E max michael: 72.2 cm/sec Lat Peak E' Michael: 8.3 cm/sec Med Peak E' Michael: 3.8 cm/sec MV A max michael: 63.8 cm/sec E/E' lat: 8.7 E/E' med: 19.0 MV E/A: 1.1 Ao V2 max: 115.0 cm/sec LV V1 max: 92.9 cm/sec PA V2 max: 82.2 cm/sec Ao max P.3 mmHg LV V1 max P.5 mmHg PI end-d michael: 127.5 cm/sec TR max michael: 254.4 cm/sec TR max P.9 mmHg Interpretation Summary Normal LV size. Left ventricular systolic function is normal. The estimated ejection fraction is 60 %. Stage 3 diastolic dysfunction. Mild (1+) tricuspid valve insufficiency. Ordering Physician: Gordy Pedroza Referring Physician: INO SILVA CHI Performed By: Chrissy Amanda, SABINA, RVT 03/03/181716 Date Gordy Pedroza MD CC: Gordy Pedroza MD; Ino Silva MD Date Dictated: 03/03/18 1347 Date Transcribed: 03/03/181716 [employer]: Signed CBC W/DIFF, AUTOMATED Collected: 02/10/2018 Status: F Source: [place] 12:08 PM [facility] REPOSITORY TYPE CODE TESTS RESULT OUT OF RANGE REFERENCE UNITS LAB L100.1000 4.4-11.0 K/mm3 Normal WBC 10.8 LAB L100.1200 4.2-5.4 M/mm3 Normal RBC 4.73 LAB L100.1300 12.0-15.0 g/dl Normal HGB 13.1 LAB L100.1400 37-47 % Normal HCT 41.4 LAB L100.1500 81-99 fL Normal MCV 87.5 LAB L100.1600 27.0-32.0 pg Normal MCH 27.7 LAB L100.1700 32-36 g/gl Low MCHC 31.6 LAB L100.1810 11.6-14.6 % High RDW CV 15.8 LAB L100.1820 35.1-43.9 fl High RDW SD 51.0 LAB L100.1900 150-450 K/mm3 Normal PLT 309 LAB L100.2000 6.2-12.0 fl Normal MPV 11.4 LAB L100.2100 47-70 % Normal NEUT% 64.9 LAB L100.2200 19-41 % Normal LY% 26.8 LAB L100.2300 0-10 % Normal MONO% 5.8 LAB L100.2400 0-5 % Normal EO% 1.9 LAB L100.2500 0-1 % Normal BASO% 0.4 LAB L100.2550 0.0-0.9 % Normal IM GRAN % 0.200 Result Comment: IG% - Immature Granulocytes (promyelocytes, myelocytes and metamyelocytes) > 1% indicates that a LEFT SHIFT is Present. LAB L100.2620 2.0-7.7 X10 3/uL Normal Absolute Neut 7.0 LAB L100.2720 0.83-4.51 X10 3/ul Normal Absolute Lymph 2.90 Performed By: #### L100.0100 #### [facility] [place], [address] COMPREHENSIVE METABOLIC Collected: 02/10/2018 Status: F Source: [facility] 12:08 PM [facility] REPOSITORY TYPE CODE TESTS RESULT OUT OF RANGE REFERENCE UNITS LAB L501.0100 74-106 mg/dL High GLU 115 Result Comment: Fasting Glucose result from 100 to 125 mg/dL suggests IMPAIRED HOMEOSTASIS per A.D.A. criteria. Please note revised GLUCOSE reference range effective 2017. LAB L501.1000 7-18 mg/dL High BUN 19 LAB L501.1100 0.55-1.02 mg/dL Normal CREAT,SERUM 0.82 Result Comment: The validity of the calculated GFR AND GFRAA in patients over 70 years has not been determined. Clinical correlation is essential. LAB L501.1110 >60 mL/min Normal EST GFR 73 Result Comment: Non- GFR Calc LAB L501.1115 >60 mL/min Normal EST GFR - AA 89 Result Comment: GFR Calc LAB L501.1300 10-20 RATIO High BUN/CRE 23.2 LAB L501.1500 6.4-8.2 g/dL T Normal PROT 7.2 LAB L501.1800 3.2-5.0 g/dL Normal ALB 3.5 LAB L501.1950 2.2-4.2 g/dL Normal GLOB 3.7 LAB L501.2000 0.9-2.4 RATIO Normal A/G 0.9 LAB L501.2200 8.5-10.1 mg/dL CA Normal 8.7 LAB L501.4100 15-37 U/L Normal AST 18 LAB L501.4305 45-117 U/L High ALK P 118 LAB L501.4405 13-56 U/L Normal ALT 25 LAB L501.4600 0.20-1.00 mg/dL T Normal BILI 0.40 LAB L501.5300 136-145 mmol/L NA Normal 137 LAB L501.5600 3.5-5.1 mmol/L K Normal 4.2 LAB L501.5900 98-107 mmol/L CL Normal 104 LAB L501.6100 21.0-32.0 mmol/L Normal CO2 27.0 LAB L501.6200 5-15 Normal GAP 6 Performed By: #### L500.4050, L501.9520 #### [facility] [address] [place], [address] THYROID STIM HORMONE Collected: 02/10/2018 Status: F Source: [place] (TSH) 12:08 PM [facility] REPOSITORY TYPE CODE TESTS RESULT OUT OF RANGE REFERENCE UNITS LAB L501.9520 0.358-3.74 uIU/mL Normal TSH 0.88 Performed By: #### L500.4050, L501.9520 #### [facility] [address] [place], [address] VITAMIN D,25 HYDROXY Collected: 02/10/2018 Status: F Source: [place] 12:08 PM [facility] REPOSITORY TYPE CODE TESTS RESULT OUT OF RANGE REFERENCE UNITS LAB L506.1000 29.95-100.01 ng/mL Normal Vitamin D 30.9 25-OH Result Comment: Vitamin D 25(OH) Status Range Deficiency <20 ng/mL (50nmol/L) Insuffciency 20 - 30 ng/mL (50 - 75 nmol/L) Sufficiency 30 - 100 ng/mL (75 - 250 nmol/L) Toxicity >100 ng/mL (>250 nmol/L) Performed By: #### L506.1000 #### [facility] [address] [place], [address] CARDIOLOGY VISIT Observed: 01/29/2018 Status: F Source: [facility] REPORT 12:42 PM [facility] REPOSITORY [facility] [address] [place] [address] OFFICE VISIT Date of Service: 01/29/18 MR#: [id number] Acct: [id number] Name: CHARISSA WALLACE Rep #: [id number] : 1945 Provider: Gordy Pedroza MD Age/Sex: 72/F [place] [facility] [place] Signed [facility] Chief Complaint: Follow up visit Details: CHARISSA WALLACE, is a 72 F who presents to the office today for a follow-up visit. She is a lady with a history of coronary artery disease status post carotid bypass surgery 10 years ago at the [facility]. She has since had numerous angioplasties. She [...] therapy was recommended and she was discharged. She presented once again with chest discomfort and was admitted to the hospital. She eventually underwent a cardiac catheterization which demonstrated coronary artery disease with a patent left internal mammary artery to the left anterior descending artery, saphenous vein graft to the obtuse marginal branch and saphenous vein graft to the right coronary artery. Both saphenous vein grafts were occluded. The unga mid right coronary artery had a stenosis for which she underwent placement of a 2.5 x 38 mm Promus Synergy balloon in the proximal right coronary artery had a stenosis of 75% which was dilated with a 2.5 x 12 mm Promus Synergy balloon as well. She says that she is done well since then denying any neck arm or jaw discomfort to suggest angina. She unfortunately continues to use tobacco products. Her physical exam here today demonstrates clear lung cortes regular rate and rhythm and no pedal edema her blood pressure is under good control. Intake Vital Signs01/29/18 Height 5 ft 1 in Intake Visit Reasons: DC ICU 12-29 post stent Allergies morphine Allergy (Verified 01/05/18 19:53) PT UNSURE Penicillins Allergy (Verified 01/05/18 19:53) Hives tramadol HCl [From Ultram] Allergy (Verified 01/05/18 19:53) PT UNSURE bupropion [From Wellbutrin] Adverse Reaction (Verified 01/29/18 11:55) hallucinations Medications Aspirin E.C. [Ecotrin] 81 mg PO DAILY@0800 09/06/17 [History Confirmed 01/29/18] Levothyroxine [Synthroid] 75 mcg PO DAILY 09/06/17 [History Confirmed 01/29/18] citalopram 40 mg tablet 40 mg PO DAILY 12/18/17 [History Confirmed 01/29/18] clopidogrel 75 mg tablet 75 mg PO QODAY 12/18/17 [History Confirmed 01/29/18] esomeprazole magnesium 20 mg capsule,delayed release 40 mg PO DAILY 12/18/17 [History Confirmed 01/29/18] ipratropium 20 mcg-albuterol 100 mcg/actuation mist for inhalation 1 puff INHALATION Q6H 12/18/17 [History Confirmed 01/29/18] lisinopril 40 mg tablet 40 mg PO DAILY tab 12/18/17 [History Confirmed 01/29/18] tiotropium 2.5 mcg-olodaterol 2.5 mcg/actuation mist for inhalation 1 puff INHALATION DAILY g 12/18/17 [History Confirmed 01/29/18] Atenolol [Tenormin (beta estefania)] 25 mg PO DAILY 01/05/18 [History Confirmed 01/29/18] Atorvastatin Calcium 40 mg PO DAILY 01/05/18 [History Confirmed 01/29/18] No122/Iron/Folic Acid [ Multi Tablet] 1 tab PO DAILY 01/05/18 [History Confirmed 01/29/18] Psyllium Husk [Metamucil] 5 ml PO DAILY 01/05/18 [History Confirmed 01/29/18] Ondansetron [Zofran Odt] 4 mg PO DAILY 01/06/18 [History Confirmed 01/29/18] lorazepam 2 mg tablet 1 mg PO TID tab 01/29/18 [History Confirmed 01/29/18] [facility] Medical History Non-rheumatic tricuspid valve insufficiency (Chronic) Secondary pulmonary arterial hypertension (Chronic) Nicotine dependence (Chronic) Hyperlipidemia (Chronic) 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) Essential (primary) hypertension (Chronic) TIA (transient ischemic attack) (Chronic) Benzodiazepine dependence (Chronic) Anxiety and depression (Chronic) Back pain (Chronic) COPD (chronic obstructive pulmonary disease) (Chronic) Hypothyroidism (Chronic) Obstructive sleep apnea (Chronic) Surgical History History of coronary artery stent placement (Resolved 12/28/17) History of coronary artery bypass graft x 3 (Resolved) History of appendectomy (Resolved) History of left heart catheterization (Resolved 12/28/17) Hx of cholecystectomy (Resolved) Social History Smoking Status: Current every day smoker ROS Const Const: Negative for fatigue, weakness, difficulty sleeping, frequent falls, excessive sweating or headache(s) Eyes Eyes: Negative for loss of peripheral vision, transient loss of vision, blurry vision, tunnel vision or double vision ENT ENT: Negative for headache(s), dizziness, Nosebleed/epistaxis or balance problems Cardio Chest Pain: No Palpitations: No Edema: None Muscle aches with walking: None Resp Respiratory: Positive for SOB with activity; negative for SOB at rest, SOB orthopnea\SOB lying down, paroxysmal nocturnal dyspnea or Cough GI GI: Negative nausea, heartburn, black,tarry stools or vomiting : Negative for hematuria Musc Musc: Negative for balance problems, muscle aches/ myalgia, muscle weakness or joint pain Skin Skin: Negative non-healing lesions, unusual bruising or rash Neuro Neuro: Negative for weakness, frequent falls, headache(s), blurry vision, double vision, dizziness, lightheadedness, orthostatic symptoms, near syncope, syncope or lack of coordination Elton Hematologic/Lymphatic: Negative for easy bruising or easy bleeding Endo Endo: Negative for fatigue, excessive sweating or increased thirst/drinking Psych Psych: Positive for anxiety (Admits to being hyper and anxious); negative for depression Allergy Allergy/Immunology: Negative for hives, Negative [...] Psychological: normal affect Assessment AND Plan 1. History of coronary artery stent placement Z95.5 Wmy-OPE-JJO-Mid RCA w/ 2.0 x 10 mm Angiosculpt and 2.5 x 38 mm Promus Synergy Stent, BRIANA-Prox RCA 2.5 x 12 mm Prmomus Synergy Stent 12/28/17 SUA-IPC-Vnpnw Cx w/ 2.5 x 24mm Promus 03/12/2011, XCK-Gpisz-HHT;PCI-Prox LAD; Plan She does have a history of recent angioplasty and stenting of the right coronary artery the plan is for her to continue current medical therapy with aspirin clopidogrel as well as beta-estefania. Smoking cessation has been emphasized. Though she is a candidate for cardiac rehabilitation and not sure that she will will be able to undergo the above. 2. History of coronary artery bypass graft x 3 Z95.1 CABG x 3 SY-LAD, SVG-OM and SVG-RCA Plan She does have a history of coronary artery bypass surgery with 2 out of his 3 grafts being totally occluded. We will continue to monitor her closely. 3. Essential (primary) hypertension I10 Plan She has a history of hypertension with her blood pressure being quite well controlled on the current medical therapy. No major changes will be made with regard to the above. I would suggest that we obtain an echocardiogram to assess her left ventricular function at some point. 4. Hyperlipidemia E78.5 Plan She does have a history of hyperlipidemia. Her most recent lipid profile demonstrated a total cholesterol of 107, LDL 48 and HDL 41. 5. Nicotine dependence F17.200 Plan She continues to use nicotine products. She has been counseled about the above. And the deleterious effect that this could have on her overall cardiac system. Thank you for allowing me to participate in the care of your patient. Please don't hesitate to call if any issues arise Plan Detail Other Orders Orders: Follow Up 6 Months (mmm) Coding Level of Care Code Off vis,est,level 4 Diagnoses History of coronary artery stent placement Z95.5 History of coronary artery bypass graft x 3 Z95.1 Essential (primary) hypertension I10 Hyperlipidemia E78.5 Nicotine dependence F17.200 Coding Level of Care Code Off vis,est,level 4 Diagnoses History of coronary artery stent placement Z95.5 History of coronary artery bypass graft x 3 Z95.1 Essential (primary) hypertension I10 Hyperlipidemia E78.5 Nicotine dependence F17.200 01/29/18 1242 <Electronically signed by Gordy Pedroza MD> Date Gordy Pedroza MD Cosigner Signature: Date (if applicable) CC: Ino Silva MD 12 LEAD ELECTROCARDIOGRAM Observed: 01/08/2018 Status: F Source: [place] 2:21 PM [facility] Cardiovascular Services [address] [place] [address] 12 Lead EKG 01/05/181951 MR#: [id number] Acct: [id number] Name: CHARISSA WALLACE Rep #: [id number] : 1945 72 From: Gordy Pedroza MD Attending Dr: Cruz Roberts MD Status: DIS DIAN Ordering Dr: Zachariah Lawrence MD Date: 01/05/18 Location: [facility] Sex: F C Admitted: 01/05/18 Test Reason : CP Blood Pressure : / mmHG Vent. Rate : 072 BPM Atrial Rate : 072 BPM P-R Int : 182 ms QRS Dur : 088 ms QT Int : 398 ms P-R-T Axes : 066 057 067 degrees QTc Int : 435 ms Normal sinus rhythm Nonspecific T wave abnormality Abnormal ECG Confirmed by GORDY PEDROZA MD ([id number]), science editor LEX OGLESBY ([id number]) on 01/08/2018 2:21:33 PM Referred By: AMANDA/AUSTIN Confirmed By:GORDY PEDROZA MD 01/08/18 1421 Date Gordy Pedroza MD CC: Zachariah Lawrence MD; Cruz Roberts MD; Ino Silva MD Signed 12 LEAD ELECTROCARDIOGRAM Observed: 01/08/2018 Status: F Source: [place] 2:05 PM [facility] REPOSITORY [facility] Cardiovascular Services [address] [place] [address] 12 Lead EKG 01/05/18 2321 MR#: [id number] Acct: [id number] Name: CHARISSA WALLACE Rep #: [id number] : 1945 72 From: Gordy Pedroza MD Attending Dr: Cruz Roberts MD Status: DIS DIAN Ordering Dr: Provider,Ed P. Date: 01/05/18 Location: [facility] Sex: F C Admitted: 01/05/18 Test Reason [...] found Confirmed by YOVANY GOLD, GORDY ([id number]), science editor LEX OGLESBY ([id number]) on 01/08/2018 2:04:46 PM Referred By: DR GRESHAM Confirmed By:GORDY PEDROZA MD 01/08/18 1404 Date Gordy Pedroza MD CC: ED PHYSICIAN PROVIDER; Cruz Roberts MD; Ino Silva MD Signed 12 LEAD ELECTROCARDIOGRAM Observed: 01/08/2018 Status: F Source: [place] 9:19 AM [facility] REPOSITORY [facility] Cardiovascular Services [address] [place] [address] 12 Lead EKG 12/29/17 0434 MR#: [id number] Acct: [id number] Name: CHARISSA WALLACE Rep #: [id number] : 1945 72 From: Gordy Pedroza MD Attending Dr: Yovany GOLD,Gordy Status: DEP SDC Ordering Dr: Humberto Dela Cruz MD Date: 12/29/17 Location: [facility] Sex: F C Admitted: Test [...] COMPARISON REQUIRED, DATA IS UNCONFIRMED Confirmed by YOVANY GOLD, GORDY ([id number]), science editor DAVID CARMONA ([id number]) on 01/01/2018 2:03:34 PM Referred By: Gordy Pedroza Confirmed By:GORDY PEDROZA MD 01/01/18 1403 Date Gordy Pedroza MD CC: Gordy Pedroza MD; Humberto Dela Cruz MD; Ino Silva MD Signed 12 LEAD ELECTROCARDIOGRAM Observed: 01/08/2018 Status: F Source: [place] 9:19 AM [facility] REPOSITORY [facility] Cardiovascular Services [address] [place] [address] 12 Lead EKG 12/28/17 1036 MR#: [id number] Acct: [id number] Name: CHARISSA WALLACE Rep #: [id number] : 1945 72 From: Gordy Pedroza MD Attending Dr: Yovany GOLD,Gordy Status: DEP SDC Ordering Dr: Humberto Dela Cruz MD Date: 12/28/17 Location: [facility] Sex: F C Admitted: Test [...] leads Confirmed by GORDY PEDROZA MD ([id number]), science editor DAVID CARMONA ([id number]) on 01/01/2018 2:05:09 PM Referred By: Gordy Pedroza Confirmed By:GORDY PEDROZA MD 01/01/18 1405 Date Gordy Pedroza MD CC: Gordy Pedroza MD; Humberto Dela Cruz MD; Ino Silva MD Signed HISTORY AND PHYSICAL Observed: 01/06/2018 Status: F Source: [place] EXAM 5:35 PM [facility] REPOSITORY [facility] Medical Records Department [address] [place] [address] History and Physical 01/05/18 2131 MR#: [id number] Acct: [id number] Name: CHARISSA WALLACE Rep #: [id number] : 1945 72 From: Zachariah Lawrence MD PCP: Ino Silva MD, Chi Status: DIS DIAN Y Location: [place] [address] ADDENDUM by Zachariah Lawrence MD on 01/06/18 at 1735 Code Visit Previous documented as: Right groin pain. Likely osteoarthritis. Patient declined Tylenol . He said in the past he is taking [place] for pain. Will order [place] for now Patient to follow-up with PCP after discharge. Corrected to: Left groin pain. Likely osteoarthritis. Patient declined Tylenol . He said in the past he is taking [place] for pain. 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) Zlf-JYH-LAW-Mid RCA w/ 2.0 x 10 mm Angiosculpt and 2.5 x 38 mm Promus Synergy Stent, BRIANA-Prox RCA 2.5 x 12 mm Prmomus Synergy Stent 12/28/17 XJH-BLO-Wzbkd Cx w/ 2.5 x 24mm Promus 03/12/2011, JIT-Ahhaw-LMA;PCI-Prox LAD; CABG x 3 SY-LAD, SVG-OM and SVG-RCA Essential (primary) hypertension (Chronic) TIA (transient ischemic attack) (Chronic) Benzodiazepine dependence (Chronic) Medical History: Medical History (Last Reviewed 01/06/18 @ 03:19 by Zachariah Lawrence MD) Non-rheumatic tricuspid valve insufficiency (Chronic) I36.1 Secondary pulmonary arterial hypertension (Chronic) I27.21 Nicotine dependence (Chronic) F17.200 Hyperlipidemia (Chronic) E78.5 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) I25.119 Acv-ILO-HQG-Mid RCA w/ 2.0 x 10 mm Angiosculpt and 2.5 x 38 mm Promus Synergy Stent, BRIANA-Prox RCA 2.5 x 12 mm Prmomus Synergy Stent 12/28/17 ZDN-TXY-Qnqzx Cx w/ 2.5 x 24mm Promus 03/12/2011, AMV-Djvvm-KKD;PCI-Prox LAD; CABG x 3 SY-LAD, SVG-OM and [...] stent placement (Resolved) Onset Date: 12/28/17 Z95.5 Eiv-WCE-WIT-Mid RCA w/ 2.0 x 10 mm Angiosculpt and 2.5 x 38 mm Promus Synergy Stent, BRIANA-Prox RCA 2.5 x 12 mm Prmomus Synergy Stent 12/28/17 ITN-CJT-Ervok Cx w/ 2.5 x 24mm Promus 03/12/2011, XWY-Mgnwr-NWZ;PCI-Prox LAD; History of coronary artery bypass graft x 3 (Resolved) Z95.1 CABG x 3 SY-LAD, SVG-OM and SVG-RCA History of appendectomy Z90.49 History of left heart catheterization Onset Date: 12/28/17 Z98.890 Hx of cholecystectomy Z90.49 Surgical History: angioplasty - A total of 5 stents, coronary bypass surgery - 3 vessel bypass surgery, - - Tubal ligation; and partial oopherectomy. 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 Will order [place] for now Patient to follow-up with PCP [...] ordered. Code Visit OBSV E AND M: 72033 Initial observation care L3 01/06/18 0459 <Electronically signed by Zachariah Lawrence MD> Date Zachariah Lawrence MD Cosigner Signature: Date (if applicable) CC: Zachariah Lawrence MD; Ino Silva MD Signed DISCHARGE SUMMARY Observed: 01/06/2018 Status: F Source: [place] 4:06 PM [facility] REPOSITORY [facility] Medical Records Department [address] [place] [address] Discharge Summary 01/06/18 1256 MR#: [id number] Acct: [id number] Name: CHARISSA WALLACE Rep #: [id number] : 1945 72 From: Abena Dennis RESOLUTE PROFESSIONAL-C PCP: Ricardo GOLD,Ino Ngo Status: DIS DIAN Y Location: [place] [address] <Abena Dennis - Last Filed: 01/06/18 13:03> [...] Hyperlipidemia (Chronic) 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) Lrn-TTE-TXP-Mid RCA w/ 2.0 x 10 mm Angiosculpt and 2.5 x 38 mm Promus Synergy Stent, BRIANA-Prox RCA 2.5 x 12 mm Prmomus Synergy Stent 12/28/17 RPS-GQG-Voshi Cx w/ 2.5 x 24mm Promus 03/12/2011, OUV-Dhjwb-MRL;PCI-Prox LAD; CABG x 3 SY-LAD, SVG-OM and [...] all that apply): None applicable <Cruz Roberts - Last Filed: 01/06/18 16:06> Discharge Date and Diagnosis - Secondary Discharge Diagnosis Chronic Problems (Last Reviewed 01/06/18 @ 03:19 by Zachariah Lawrence MD) Non-rheumatic tricuspid valve insufficiency (Chronic) Secondary pulmonary arterial hypertension (Chronic) Nicotine dependence (Chronic) Hyperlipidemia (Chronic) 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 OBSV E AND M: 32531 Observation care discharge 01/06/18 1304 <Electronically signed by Abena LOYOLAC> Date Abena LOYOLAC 01/06/18 1606<Electronically signed by Cruz Roberts MD> Cosigner Signature (if applicable): Date Cruz Roberts MD CC: ROSA Dennis; Cruz Roberts MD; Ino Silva MD Signed DISCHARGE INSTRUCTION Observed: 01/06/2018 Status: F Source: [place] 12:55 PM [facility] REPOSITORY [facility] Medical Records Department [address] [place] [address] Instructions for Home/Discharge Instructions 01/06/18 1253 MR#: [id number] Acct: [id number] Name: CHARISSA WALLACE Rep #: [id number] : 1945 72 From: Abena LEE PCP: [...] 01/06/2018 Status: F Source: [place] 12:46 PM [facility] REPOSITORY [facility] Cardiovascular [place] [address] MR#: [id number] Acct: [id number] Name: CHARISSA WALLACE Rep #: [id number] : 1945 72 From: Gordy Pedroza MD Primary Care: Ricardo GOLD,Ino Chi Status: ADM DIAN Ordering Dr: Sex: F [...] MD Date Dictated: 01/06/181240 Date Transcribed: 01/06/181240 Marine Fireman: CO Signed CBC-COMPLETE BLOOD CNT Collected: 01/06/2018 Status: F Source: [place] NO DIFF 2:45 AM [facility] REPOSITORY TYPE CODE TESTS RESULT OUT OF [...] MPV 10.3 Performed By: #### L100.0500 #### [facility] [address] [place], [place], [id number] PROTHROMBIN TIME W/INR Collected: 01/06/2018 Status: F Source: [place] 2:45 AM [facility] REPOSITORY TYPE CODE TESTS RESULT OUT OF RANGE REFERENCE UNITS LAB L300.4150 11.7-14.9 SECONDS Normal PROTIME 12.7 LAB L300.4200 Normal INR 1.0 Performed By: #### L300.3900, L300.4310 #### [facility] [address] [place], [place], [id number] PARTIAL THROMBOPLAST Collected: 01/06/2018 Status: F Source: [place] TIME 2:45 AM [facility] REPOSITORY TYPE CODE TESTS RESULT OUT OF RANGE REFERENCE UNITS LAB L300.4310 24.1-36.2 Seconds Normal PTT 27.8 Performed By: #### L300.3900, L300.4310 #### [facility] [address] [place], [address] TROPONIN-I Collected: 01/06/2018 Status: F Source: [place] 2:45 AM [facility] REPOSITORY Order Comment: 'TROP' Serial specimen #1, #2 or #3: 3 TYPE CODE TESTS RESULT OUT OF RANGE REFERENCE UNITS LAB L501.4010 <0.045 ng/mL Normal 0.017 TROPONIN-I Result Comment: TROPONIN-I EXPECTED VALUES <0.045 Negative 0.045 - 0.590 Consistent with Cardiac Damage > OR = 0.600 Critical Value Not every elevated troponin is indicative of WV. These values should be used with clinical judgement in examining the patient's clinical picture for diagnosis. To establish a diagnosis of WV versus myocardial injury, there must be a demonstrated rise and/or fall in the troponin values, in addition to ischemic symptoms, EKG changes, new regional wall motion abnormality, and/or angiographical evidence. PLEASE NOTE: REFERENCE RANGES EDITED 17 Performed By: #### L501.4010 #### [facility] [address] [place], [address] BASIC METABOLIC Collected: 01/06/2018 Status: F Source: [place] PROFILE ([facility]) 2:45 AM [facility] REPOSITORY TYPE CODE TESTS RESULT OUT OF [...] GAP 7 Performed By: #### L500.2500 #### [facility] [address] [place], [address] EMERGENCY DEPARTMENT Observed: 01/05/2018 Status: F Source: [place] SUMMARY 11:04 PM [facility] REPOSITORY [facility] Medical Records Department [address] [place] [address] Emergency Department Summary 01/05/182128 MR#: [id number] Acct: [id number] Name: CHARISSA WALLACE Rep #: [id number] : 1945 72 From: Hany Mruphy MD PCP: Ino Silva MD, Chi Status: ADM DIAN - ER Visit Summary Date of Service: 01/05/18 Chief Complaint: Chest pain and near syncope History of Present Illness: The patient is a 72 F that is both cardiac cath and 2 cardiac stents approximately a week ago here at [facility]. Other prior cardiac stents and prior [...] of 74 with no acute signs of WV or ischemia no change from the prior [...] and CABG. This note was generated with [employer] dictation software. It may contain incorrect words, [...] your Primary Care Provider. Call [facility] ([phone]) or report to the closest Emergency Room. Call 911 if necessary. 01/05/18 9538 <Electronically signed by Hany Murphy MD> Date Hany Murphy MD Cosigner Signature (If Indicated): Date CC: Ino Silva MD TROPONIN-I Collected: 01/05/2018 Status: F Source: [place] 10:55 PM [facility] REPOSITORY Order Comment: 'TROP' Serial specimen #1, #2 or #3: 2 TYPE CODE TESTS RESULT OUT OF RANGE REFERENCE UNITS LAB L501.4010 <0.045 ng/mL Normal 0.022 TROPONIN-I Result Comment: TROPONIN-I EXPECTED VALUES <0.045 Negative 0.045 - 0.590 Consistent with Cardiac Damage > OR = 0.600 Critical Value Not every elevated troponin is indicative of [place]. These values should be used with clinical judgement in examining the patient's clinical picture for diagnosis. To establish a diagnosis of WV versus myocardial injury, there must be a demonstrated rise and/or fall in the troponin values, in addition to ischemic symptoms, EKG changes, new regional wall motion abnormality, and/or angiographical evidence. PLEASE NOTE: REFERENCE RANGES EDITED 17 Performed By: #### L501.4010 #### [facility] [address] [place] [address]. [place], [address] HIPS B/L MIN 2 Observed: 01/05/2018 Status: F Source: [place] VIEWS W/ PELVIS 8:45 PM [facility] REPOSITORY [facility] Imaging Services [address] [place], [place] [address] [address] Hips B/L min 2 views w/ Pelvis MR#: [id number] Acct: [id number] Name: CHARISSA WALLACE Rep #: [id number] : 1945 F 72 From: Lee Dunn MD PCP: Ricardo GOLD,Ino Ngo Status: REG ER Study: Hips B/L min 2 views w/ Pelvis Date of Exam: 01/05/18 Exam# [id number] Ordering Dr: Hany Murphy MD STUDY: X-RAY [...] CC: Hany Murphy MD; Ino Silva MD Marine Fireman: Signed PROTHROMBIN TIME W/INR Collected: 01/05/2018 Status: F Source: [place] 7:55 PM [facility] REPOSITORY TYPE CODE TESTS RESULT OUT OF RANGE REFERENCE UNITS LAB L300.4150 11.7-14.9 SECONDS Normal PROTIME 12.9 LAB L300.4200 Normal INR 1.0 Performed By: #### L300.3900 #### [facility] [address] [place], [address] CBC W/DIFF, AUTOMATED Collected: 01/05/2018 Status: F Source: [place] 7:55 PM [facility] REPOSITORY TYPE CODE TESTS RESULT OUT OF [...] Lymph 3.70 Performed By: #### L100.0100 #### [facility] [address] [place], [address] BASIC METABOLIC Collected: 01/05/2018 Status: F Source: [place] PROFILE (BMP) 7:55 PM [facility] REPOSITORY TYPE CODE TESTS RESULT OUT OF [...] 5 Performed By: #### L500.2500, L501.4010 #### [facility] [address] [place], [address] TROPONIN-I Collected: 01/05/2018 Status: F Source: [place] 7:55 PM [facility] REPOSITORY TYPE CODE TESTS RESULT OUT OF RANGE REFERENCE UNITS LAB L501.4010 <0.045 ng/mL Normal 0.017 TROPONIN-I Result Comment: TROPONIN-I EXPECTED VALUES <0.045 Negative 0.045 - 0.590 Consistent with Cardiac Damage > OR = 0.600 Critical Value Not every elevated troponin is indicative of [place]. These values should be used with clinical judgement in examining the patient's clinical picture for diagnosis. To establish a diagnosis of WV versus myocardial injury, there must be a demonstrated rise and/or fall in the troponin values, in addition to ischemic symptoms, EKG changes, new regional wall motion abnormality, and/or angiographical evidence. PLEASE NOTE: REFERENCE RANGES EDITED 17 Performed By: #### L500.2500, L501.4010 #### [facility] [address] [place], [address] CHEST 1 VIEW Observed: 01/05/2018 Status: F Source: [place] (PORTABLE) 7:52 PM [facility] REPOSITORY [facility] Imaging Services [address] [place] [address] Chest 1 View (Portable) MR#: [id number] Acct: [id number] Name: CHARISSA WALLACE Rep #: [id number] : 1945 F 72 From: Lee Dunn MD PCP: Ricardo GOLD,[facility] [employer] Status: PRE ER Study: Chest 1 View (Portable) Date of Exam: 01/05/18 Exam# [id number] Ordering Dr: Hany Murphy MD STUDY: X-RAY [...] CC: Hany Murphy MD; Ino Silva MD Marine Fireman: Signed DISCHARGE INSTRUCTION Observed: 12/29/2017 Status: F Source: [place] 8:03 AM [facility] REPOSITORY [facility] Medical Records Department [address] [place] [address] Instructions for Home/Discharge Instructions 12/29/17 0801 MR#: [id number] Acct: [id number] Name: CHARISSA WALLACE Rep #: [id number] : 1945 72 From: Gordy Pedroza MD PCP: Ricardo GOLD,Ino Ngo Status: REG [facility] Discharge Diet: Low fat/ Low Cholesterol Lifting [...] patient's physical, psychological, and social functioning. Health after school caregiver work in cardiac rehabilitation programs and assist you with getting the treatments you need to get stronger and healthier - like exercise, healthy eating habits, and medications. Cardiac rehabilitation has been show to help people with heart problems live longer and have better life enjoyment than people who do not go to cardiac rehabilitation. Please contact the Cardiac Rehabilitation Program at [facility] at in two weeks if you have not heard from them. 12/29/17 0803 <Electronically signed by Gordy Pedroza MD> Date Gordy Pedroza MD CC: Ino Silva MD BASIC METABOLIC Collected: 12/29/2017 Status: F Source: [place] PROFILE ([facility]) 3:55 AM [facility] REPOSITORY TYPE CODE TESTS RESULT OUT OF [...] 6 Performed By: #### L500.2500, L500.4100 #### [facility] [address] [facility]. [place], [place], [id number] LIPID PROFILE Collected: 12/29/2017 Status: F Source: JEROME 3:55 AM [facility] REPOSITORY TYPE CODE TESTS RESULT OUT OF [...] 18 Performed By: #### L500.2500, L500.4100 #### [facility] [address] [facility]. [place], [place], [address] CBC-COMPLETE BLOOD CNT Collected: 12/29/2017 Status: F Source: JEROME NO DIFF 3:55 AM [facility] REPOSITORY TYPE CODE TESTS RESULT OUT OF [...] MPV 11.5 Performed By: #### L100.0500 #### [facility] [address] [place], [address] ACT ACTIVATED CLOTTING Collected: 12/28/2017 Status: F Source: JEROME TIME 12:26 PM [facility] REPOSITORY TYPE CODE TESTS RESULT OUT OF RANGE REFERENCE UNITS LAB L9100.0100 74-137 sec High ACTk CLOT 158 TIME Performed By: #### L9100.0100 #### [facility] Point of Care [address] [place] [address] ACT ACTIVATED CLOTTING Collected: 12/28/2017 Status: F Source: JEROME TIME 10:01 AM [facility] REPOSITORY TYPE CODE TESTS RESULT OUT OF RANGE REFERENCE UNITS LAB L9100.0100 74-137 sec High ACTk CLOT 208 TIME Performed By: #### L9100.0100 #### [facility] Point of Care [address] [place] [address] CARDIOLOGY VISIT Observed: 12/18/2017 Status: F Source: JEROME REPORT 11:44 AM [facility] REPOSITORY [facility] [address] [place] [address] OFFICE VISIT Date of Service: 12/18/17 MR#: [id number] Acct: [id number] Name: MADISONCHARISSA E Rep #: [id number] : 1945 Provider: Gordy Pedroza MD Age/Sex: 72/F Location: [facility] Status: Signed HPI HPI Chief Complaint: Initial visit Details: CHARISSA WALLACE, is a 72 F who presents to the office today for an initial evaluation. She is a lady with a history of coronary artery disease status post carotid bypass surgery 10 years ago at the [facility]. She has since had numerous angioplasties. 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) Essential (primary) [...] Other Medications Discontinued: Follow Up 6 Months ([facility]) Coding Level of Care Code Off vis,new,level [...] AND LATERAL Observed: 12/17/2017 Status: F Source: [place]ICK[place] 4:48 PM [facility] REPOSITORY [facility] Imaging Services [address] [place] [address] Chest PA and Lateral MR#: [id number] Acct: [id number] Name: CHARISSA WALLACE Rep #: [id number] : 1945 F 72 From: Yun Cardona MD PCP: Ino Silva MD, Chi Status: REG CLI Study: Chest PA and Lateral Date of Exam: 12/17/17 Exam# [id number] Ordering Dr: Ino Silva MD STUDY: X-RAY [...] Service support , CC: Ino Silva MD Marine Fireman: Signed ABDOMEN SINGLE VIEW Observed: 12/17/2017 Status: F Source: [place] 4:48 PM [facility] REPOSITORY [facility] Imaging Services [address] [place] [address] Abdomen Single View MR#: [id number] Acct: [id number] Name: CHARISSA WALLACE Rep #: [id number] : 1945 F 72 From: Bessie Singh MD PCP: Ino Silva MD, Chi Status: REG CLI Study: Abdomen Single View Date of Exam: 12/17/17 Exam# [id number] Ordering Dr: Ino Silva MD STUDY: X-RAY [...] Service support , CC: Ino Silva MD Marine Fireman: Signed BNP,B-TYPE NATRIURETIC Collected: 12/17/2017 Status: F Source: JEROME PEPTIDE 4:28 PM [facility] REPOSITORY TYPE CODE TESTS RESULT OUT OF RANGE REFERENCE UNITS LAB L503.6620 0-100 pg/mL High B-TYPE 118.1 JIAN PEP Performed By: #### L503.6620 #### [facility] [address] [place], [address] D-DIMER QUANTITATIVE Collected: 12/17/2017 Status: F Source: JEROME (DVT/PE) 4:28 PM [facility] REPOSITORY TYPE CODE TESTS RESULT OUT OF RANGE REFERENCE UNITS LAB L300.8000 0.27-0.49 FEU/ug/m High alert D-DIMER 0.64 QUANT Result Comment: D-Dimer ELEVATED (>0.49): Additional studies and clinical assessments are indicated to conclude diagnosis of: Deep Vein Thrombosis (DVT) or Pulmonary Embolism (PE) CRITICAL VALUE VERIFIED. CALLED TO DR SILVA 12/17/[address] [place] [address]. RESULTS READ BACK BY DR SILVA . Performed By: #### L300.8000 #### [facility] [address] [place], [address] COMPREHENSIVE METABOLIC Collected: 12/17/2017 Status: F Source: JEROME PROFIL 4:28 PM [facility] REPOSITORY Order Comment: 'TROP' Serial specimen #1, [...] Performed By: #### L500.4050, L501.3620, L501.4010 #### [facility] [address] [place], [place], [address] CPK TOTAL, CREATINE Collected: 12/17/2017 Status: F Source: JEROME KINASE 4:28 PM [facility] REPOSITORY Order Comment: 'TROP' Serial specimen #1, #2, #3, or #4: 1 TYPE CODE TESTS RESULT OUT OF RANGE REFERENCE UNITS LAB L501.3620 26-192 U/L Normal CPK TOTAL 65 Performed By: #### L500.4050, L501.3620, L501.4010 #### [facility] [address] [place], [address] TROPONIN-I Collected: 12/17/2017 Status: F Source: JEROME 4:28 PM [facility] REPOSITORY Order Comment: 'TROP' Serial specimen #1, #2, #3, or #4: 1 TYPE CODE TESTS RESULT OUT OF RANGE REFERENCE UNITS LAB L501.4010 <0.045 ng/mL Normal < 0.015 TROPONIN-I Result Comment: TROPONIN-I EXPECTED VALUES <0.045 Negative 0.045 - 0.590 Consistent with Cardiac Damage > OR = 0.600 Critical Value Not every elevated troponin is indicative of W[place]. These values should be used with clinical judgement in examining the patient's clinical picture for diagnosis. To establish a diagnosis of W[place] versus myocardial injury, there must be a demonstrated rise and/or fall in the troponin values, in addition to ischemic symptoms, EKG changes, new regional wall motion abnormality, and/or angiographical evidence. PLEASE NOTE: REFERENCE RANGES EDITED 17 Performed By: #### L500.4050, L501.3620, L501.4010 #### [facility] [address] [place], [address] CBC W/DIFF, AUTOMATED Collected: 12/17/2017 Status: F Source: [place] 4:28 PM [facility] REPOSITORY TYPE CODE TESTS RESULT OUT OF [...] NORM C+C Performed By: #### L100.0100 #### [facility] [address] [place], [place], [address] Observed: 12/17/2017 Status: F Source: [place] CULTURE, URINE 4:28 PM [facility] REPOSITORY Urine Culture ORGANISM 1: Mixed Gram Pos AND Gram Neg Org Homeland Count 11,000-25,000 MIX CULTURE Mixed contaminants. Submit a new specimen if indicated. Performed By: #### M100.0650 #### [facility] [address] [place], [place], [address] MYOGLOBIN, SERUM Collected: 12/17/2017 Status: F Source: [place] 4:28 PM [facility] REPOSITORY TYPE CODE TESTS RESULT OUT OF RANGE REFERENCE UNITS LAB L3600.5100 25-58 ng/mL Low < 21 Myoglobin, Ser Result Comment: Performed at: - [facility] [id number] Performance Manager: Americo Marvin PhD, Phone: [phone] Performed By: #### L3600.5100 #### [facility] (refer to report for specific site) refer to report for address and phone number CBC W/DIFF, AUTOMATED Collected: 10/21/2017 Status: F Source: [place] 2:19 PM [facility] REPOSITORY TYPE CODE TESTS RESULT OUT OF [...] Lymph 3.02 Performed By: #### L100.0100 #### [facility] [address] [place], [address] COMPREHENSIVE METABOLIC Collected: 10/21/2017 Status: F Source: [facility] 2:19 PM [facility] REPOSITORY TYPE CODE TESTS RESULT OUT OF [...] 9 Performed By: #### L500.4050, L501.9520 #### [facility] [address] [facility]. [place], [place], [address] THYROID STIM HORMONE Collected: 10/21/2017 Status: F Source: [place] (TSH) 2:19 PM [facility] REPOSITORY TYPE CODE TESTS RESULT OUT OF RANGE REFERENCE UNITS LAB L501.9520 0.358-3.74 uIU/mL Normal TSH 0.56 Performed By: #### L500.4050, L501.9520 #### [facility] [address] [place], [place], [address] VITAMIN D,25 HYDROXY Collected: 10/21/2017 Status: F Source: JEROME 2:19 PM [facility] REPOSITORY TYPE CODE TESTS RESULT OUT OF RANGE REFERENCE UNITS LAB L506.1000 29.95-100.01 ng/mL Normal Vitamin D 30.1 25-OH Result Comment: Vitamin D 25(OH) Status Range Deficiency <20 ng/mL (50nmol/L) Insuffciency 20 - 30 ng/mL (50 - 75 nmol/L) Sufficiency 30 - 100 ng/mL (75 - 250 nmol/L) Toxicity >100 ng/mL (>250 nmol/L) Performed By: #### L506.1000 #### [facility] [address] [facility] [place], [address] LIPID PROFILE Collected: 09/14/2017 Status: F Source: JEROME 2:27 PM [facility] REPOSITORY TYPE CODE TESTS RESULT OUT OF [...] VLDL 23 Performed By: #### L500.4100 #### [facility] [address] [facility] [place], [address] CBC W/DIFF, AUTOMATED Collected: 09/14/2017 Status: C Source: JEROME 2:27 PM [facility] REPOSITORY TYPE CODE TESTS RESULT OUT OF [...] June dolores Performed By: #### L100.0100 #### [facility] [address] [place] [place], [address] EMERGENCY DEPARTMENT Observed: 09/11/2017 Status: F Source: [place] SUMMARY 3:34 PM [facility] REPOSITORY [facility] Medical Records Department [address] [place] [address] Emergency Department Summary 09/11/17 1307 MR#: [id number] Acct: [id number] Name: CHARISSA WALLACE Rep #: [id number] : 1945 72 From: Marquis Quick MD [...] cardiac stents This note was generated with [employer] dictation software. It may contain incorrect words, [...] your Primary Care Provider. Call [facility] ([phone]) or report to the closest Emergency Room. Call 911 if necessary. 09/11/17 1534 <Electronically signed by Marquis Quick MD> Date Marquis Quick MD Cosigner Signature (If Indicated): Date CC: Ino Silva MD DISCHARGE INSTRUCTION Observed: 09/11/2017 Status: F Source: JEROME 1:12 PM [facility] REPOSITORY [facility] Medical Records Department [address] [place] [address] [place] [address] Discharge Instruction 09/11/17 1310 MR#: [id number] Acct: [id number] Name: CHARISSA WALLACE Rep #: [id number] : 1945 72 From: Marquis Quick MD [...] your Primary Care Provider. Call [facility] ([phone]) or report to the closest Emergency Room. Call 911 if necessary. 09/11/17 1312 <Electronically signed by Marquis Quick MD> Date Marquis Quick MD Cosigner Signature (If Indicated): Date CC: Ino Silva MD HEPATITIS PANEL ACUTE Collected: 09/06/2017 Status: F Source: [place] 12:47 PM [facility] REPOSITORY TYPE CODE TESTS RESULT OUT OF RANGE REFERENCE UNITS LAB L3100.0200 Negative Normal HEP A Negative IgM 6734 LAB L3100.0400 Negative Normal HB Negative SURF AG LAB L3100.0440 Negative Normal HB Negative CORE [id number] LAB L3100.0650 0.0-0.9 s/co ratio Normal HEP C <0.1 AB Result Comment: Negative: < 0.8 Indeterminate: 0.8 - 0.9 Positive: > 0.9 The CDC recommends that a positive HCV antibody result be followed up with a HCV Nucleic Acid Amplification test (349880). Performed at: [facility] [id number] Performance Manager: Americo Marvin PhD, Phone: [phone] Performed By: #### L3000.0375 #### [facility] (refer to report for specific site) refer to report for address and phone number EMERGENCY DEPARTMENT Observed: 09/06/2017 Status: F Source: [place] SUMMARY 12:37 PM [facility] REPOSITORY [facility] Medical Records Department [address] [place] [address] Emergency Department Summary 09/06/17 1231 MR#: [id number] Acct: [id number] Name: CHARISSA WALLACE Rep #: [id number] : 1945 72 From: Kingsley Bowers MD [...] upper GI bleed which was treated in [place]. She did receive 2 units of blood. [...] Dehydration Hepatitis This note was generated with [employer] dictation software. It may contain incorrect words, [...] your Primary Care Provider. Call [facility] ([phone]) or report to the closest Emergency Room. Call 911 if necessary. 09/06/17 1237 <Electronically signed by Kingsley Bowers MD> Date Kingsley Bowers MD Cosigner Signature (If Indicated): Date CC: Ino Silva MD CBC-COMPLETE BLOOD CNT Collected: 09/06/2017 Status: F Source: JEROME NO DIFF 11:47 AM [facility] REPOSITORY TYPE CODE TESTS RESULT OUT OF [...] MPV 10.0 Performed By: #### L100.0500 #### [facility] [address] [place], [address] COMPREHENSIVE METABOLIC Collected: 09/06/2017 Status: F Source: JEROME PROFIL 11:47 AM [facility] REPOSITORY TYPE CODE TESTS RESULT OUT OF [...] GAP 5 Performed By: #### L500.4050 #### [facility] [address] [place], [place] [address], [address] CBC W/DIFF, AUTOMATED Collected: 08/27/2017 Status: F Source: JEROME 1:53 PM [facility] REPOSITORY TYPE CODE TESTS RESULT OUT OF [...] Lymph 2.87 Performed By: #### L100.0100 #### [facility] [address] [facility] [place], [address] CHEST WITHOUT Observed: 08/08/2017 Status: F Source: [place] CONTRAST 11:34 AM [facility] REPOSITORY [facility] Imaging Services [address] [place] [address] Chest without Contrast MR#: [id number] Acct: [id number] Name: CHARISSA WALLACE Rep #: [id number] : 1945 F 72 From: Yumiko Hughes MD PCP: Ino Silva MD, Chi Status: REG CLI Study: Chest without Contrast Date of Exam: 08/08/17 Exam# [id number] Ordering Dr: Ino Silva MD STUDY: CT [...] Service support , CC: Ino Silva MD Marine Fireman: Signed CBC W/DIFF, AUTOMATED Collected: 08/04/2017 Status: F Source: JEROME 3:48 PM [facility] REPOSITORY TYPE CODE TESTS RESULT OUT OF [...] Lymph 3.31 Performed By: #### L100.0100 #### [facility] [address] [facility] [place], [address] 12 LEAD ELECTROCARDIOGRAM Observed: 07/29/2017 Status: F Source: [place] 3:55 PM [facility] REPOSITORY [facility] Cardiovascular Services [address] [place] [address] 12 Lead EKG 07/26/171916 MR#: [id number] Acct: [id number] Name: CHARISSA WALLACE Rep #: [id number] : 1945 72 From: Gordy Pedroza MD [...] ECG Confirmed by YOVANY GOLD, GORDY ([id number]), science editor DAVID CARMONA ([id number]) on 07/29/2017 3:55:10 PM Referred By: RD Confirmed By:GORDY PEDROZA MD 07/29/17 1555 Date Gordy Pedroza MD CC: Ja Nix MD; Ino Silva MD Signed BASIC METABOLIC PANEL Collected: 07/28/2017 Status: F Source: [facility] 5:18 AM SYSTEM REPOSITORY TYPE CODE TESTS [...] #### HEMDF, ICA, BMP3, MG3, PHOS3 #### [facility] [address] [place] [phone] MAGNESIUM Collected: 07/28/2017 Status: F Source: [facility] 5:18 AM SYSTEM REPOSITORY TYPE CODE TESTS RESULT OUT OF RANGE REFERENCE UNITS LAB MG3 1.6-2.3 mg/dL Normal Magnesium 1.8 Performed By: #### HEMDF, ICA, BMP3, MG3, PHOS3 #### [facility] [address] [place] [address] PHOSPHORUS Collected: 07/28/2017 Status: F Source: [facility] 5:18 AM SYSTEM REPOSITORY TYPE CODE TESTS RESULT OUT OF RANGE REFERENCE UNITS LAB PHOS3 2.5-4.5 mg/dL Normal Phosphorus 2.9 Performed By: #### HEMDF, ICA, BMP3, MG3, PHOS3 #### [facility] [address] [place] [phone] CALCIUM,IONIZED Collected: 07/28/2017 Status: F Source: [facility] 5:17 AM SYSTEM REPOSITORY TYPE CODE TESTS RESULT OUT OF RANGE REFERENCE UNITS LAB ICAL 4.30-5.20 mg/dL Low Ionized 4.20 Ca,Measured LAB PHICA 7.31-7.46 NA Normal pH, Ionized 7.32 Calcium Performed By: #### HEMDF, ICA, BMP3, MG3, PHOS3 #### [facility] [address] [place] [phone] HEMOGRAM W/ AUTODIFF Collected: 07/28/2017 Status: F Source: [facility] 5:16 AM SYSTEM REPOSITORY TYPE CODE TESTS [...] #### HEMDF, ICA, BMP3, MG3, PHOS3 #### [facility] [address] [place] [phone] HEMOGRAM W/ AUTODIFF Collected: 07/27/2017 Status: F Source: [facility] 5:27 PM SYSTEM REPOSITORY TYPE CODE TESTS [...] Normal 0.1 Performed By: #### HEMDF #### [facility] [address] [place] [address] HEMOGLOBIN AND Collected: 07/27/2017 Status: F Source: [facility] HEMATOCRIT 9:41 AM SYSTEM REPOSITORY TYPE CODE TESTS RESULT OUT OF REFERENCE UNITS RANGE LAB HGB 11.7-16.0 g/dL Low Hemoglobin 9.3 LAB HCT 35.0-47.0 % Low Hematocrit 27.2 Performed By: #### HGHCT #### [facility] [address] [address] CR CHEST PORTABLE Observed: 07/27/2017 Status: F Source: [facility] 8:05 AM SYSTEM REPOSITORY Patient Name: CHARISSA WALLACE Diagnostic Radiology Exam Date/Time 07/27/2017 06:40:41 EDT Exam CR Chest Portable Ordering Physician MD ORLY, FLAVIA Salazar. Accession Number [id number] CPT4 Codes 89567 () Reason For Exam cough Report Portable [...] AND TIBC Collected: 07/27/2017 Status: F Source: [facility] 12:59 AM SYSTEM REPOSITORY TYPE CODE TESTS RESULT OUT OF RANGE REFERENCE UNITS LAB IRON3 37-170 ug/dL Low Iron, Total 17 LAB TIBC3 261-497 ug/dL Total Normal Iron Binding 328 Cap. LAB SAT3 15-50 % Low Saturation 5 Performed By: #### HEMDF, MG3, PHOS3, ALB3, BMP3M, TSH4, FEIBC, FERR3 #### [facility] [address] [address] Observed: 07/27/2017 Status: F Source: [facility] TS GEL 12:59 AM SYSTEM REPOSITORY ABO Group: O Rh, Gel: POS Antibody Screen Gel: NEG Performed By: #### TSGL #### [facility] [address] [address] #### LRC #### [address] [address] Observed: 07/27/2017 Status: F Source: [facility] LEUKODEPLETED RED CELLS 12:59 AM SYSTEM REPOSITORY Leukodepleted Red Cells: [id number] transfused 07/27/17 06:03 JMV Unit Blood Type: O Unit Blood Rh: POS Blood Product Code: AS1 Unit Number: [id number] Unit Status: transfused Barcoded Unit Number: =[id number] Barcoded Product Code: =<L1100X18 Barcoded ABO/Rh: =%5100 Unit Expiration: Unit Volume Transfused: 300 Unit Transfusion Start Date/Time: Leukodepleted Red Cells: [id number] transfused 07/27/17 02:48 JMV Unit Blood Type: O Unit Blood Rh: POS Blood Product Code: AS1 Unit Number: [id number] Unit Status: transfused Barcoded Unit Number: =[id number] Barcoded Product Code: =<C0134J48 Barcoded ABO/Rh: =%5100 Unit Expiration: Unit Volume Transfused: 300 Unit Transfusion Start Date/Time: Performed By: #### TSGL #### [facility] [address] [address] #### LRC #### [address] [address] Observed: 07/27/2017 Status: F Source: [facility] RESPIRATORY PCR PANEL 12:59 AM SYSTEM REPOSITORY Order Comment: Specimen Source Comment:Nasopharyngeal RESPIRATORY PCR PANEL --> Status: F NEGATIVE: No targets were detected by the [employer] Upper Respiratory Pathogens PCR Panel. The [employer] [...] Mycoplasma pneumoniae Performed By: #### RESBF #### [facility] [address] [place] [phone] HEMOGRAM W/ AUTODIFF Collected: 07/27/2017 Status: F Source: [facility] 12:31 AM SYSTEM REPOSITORY TYPE CODE TESTS [...] PHOS3, ALB3, BMP3M, TSH4, FEIBC, FERR3 #### [facility] [address] [place] [address] MAGNESIUM Collected: 07/27/2017 Status: F Source: [facility] 12:31 AM SYSTEM REPOSITORY TYPE CODE TESTS RESULT OUT OF RANGE REFERENCE UNITS LAB MG3 1.6-2.3 mg/dL Normal Magnesium 1.8 Performed By: #### HEMDF, MG3, PHOS3, ALB3, BMP3M, TSH4, FEIBC, FERR3 #### [facility] [address] [place] [address] PHOSPHORUS Collected: 07/27/2017 Status: F Source: [facility] 12:31 AM SYSTEM REPOSITORY TYPE CODE TESTS RESULT OUT OF RANGE REFERENCE UNITS LAB PHOS3 2.5-4.5 mg/dL Normal Phosphorus 3.3 Performed By: #### HEMDF, MG3, PHOS3, ALB3, BMP3M, TSH4, FEIBC, FERR3 #### [facility] [address] [place] [phone] ALBUMIN, SERUM Collected: 07/27/2017 Status: F Source: [facility] 12:31 AM SYSTEM REPOSITORY TYPE CODE TESTS RESULT OUT OF RANGE REFERENCE UNITS LAB ALB3 3.5-5.0 g/dL Low Albumin, 3.0 Serum Performed By: #### HEMDF, MG3, PHOS3, ALB3, BMP3M, TSH4, FEIBC, FERR3 #### [facility] [address] [place] [phone] BASIC METABOLIC PANEL Collected: 07/27/2017 Status: F Source: [facility] 12:31 AM SYSTEM REPOSITORY TYPE CODE TESTS [...] PHOS3, ALB3, BMP3M, TSH4, FEIBC, FERR3 #### [facility] [address] [place] [address] THYROID STIM. Collected: 07/27/2017 Status: F Source: [facility] HORMONE 12:31 AM SYSTEM REPOSITORY TYPE CODE TESTS RESULT OUT OF RANGE REFERENCE UNITS LAB TSH4 0.465-4.680 uU/mL Normal Thyroid Stim. 2.281 Hormone Performed By: #### HEMDF, MG3, PHOS3, ALB3, BMP3M, TSH4, FEIBC, FERR3 #### [facility] [address] [place] [phone] FERRITIN Collected: 07/27/2017 Status: F Source: [facility] 12:31 AM SYSTEM REPOSITORY TYPE CODE TESTS RESULT OUT OF RANGE REFERENCE UNITS LAB 3FERR 8-252 ng/mL Normal Ferritin 10 Performed By: #### HEMDF, MG3, PHOS3, ALB3, BMP3M, TSH4, FEIBC, FERR3 #### [facility] [address] [place] [phone] EMERGENCY DEPARTMENT Observed: 07/26/2017 Status: F Source: [place] SUMMARY 9:55 PM [facility] REPOSITORY [facility] Medical Records Department [address] [place] [address] Emergency Department Summary 07/26/171924 MR#: [id number] Acct: [id number] Name: CHARISSA WALLACE Rep #: [id number] : 1945 72 From: Ja Nix MD PCP: Ino Silva MD, Chi Status: [...] options for transfer. She requested transfer to [facility]. Patient was discussed with Dr. Ramsay. She will be transferred for further workup and intervention of upper GI bleed. Treatment Plan: [] Disposition: Transfer Impression: 1. Upper GI bleed. 2 new anemia 3. Chest pain This note was generated with Fr[employer]ation software. It may contain incorrect words, spelling, [...] your Primary Care Provider. Call [facility] ([phone]) or report to the closest Emergency Room. Call 911 if necessary. 07/26/17 4041 <Electronically signed by Ja Nix MD> Date Ja Nix MD Cosigner Signature (If Indicated): Date CC: Ino Silva MD TYPE AND SCREEN Collected: 07/26/2017 Status: F Source: [place] 7:50 PM [facility] REPOSITORY Order Comment: Reason for Type AND Screen/Red Cells: HEMORRHAGE, GI BLEED TYPE CODE TESTS RESULT OUT OF RANGE REFERENCE UNITS LAB B10.0800 O Normal BLOOD TYPE GEL POSITIVE LAB B100.4000 Normal Antibody NEGATIVE Screen Performed By: #### B101.7450 #### [facility] [address] [place], [place], [address] CBC W/DIFF, AUTOMATED Collected: 07/26/2017 Status: F Source: [place]OME 7:25 PM [facility] REPOSITORY TYPE CODE TESTS RESULT OUT OF [...] Lymph 3.83 Performed By: #### L100.0100 #### [facility] [address] [place], [address] COMPREHENSIVE METABOLIC Collected: 07/26/2017 Status: F Source: JEROME GRADY 7:25 PM [facility] REPOSITORY TYPE CODE TESTS RESULT OUT OF [...] Performed By: #### L500.4050, L501.2450, L501.4010 #### [facility] [address] [place], [address] LIPASE Collected: 07/26/2017 Status: F Source: [place] 7:25 PM [facility] REPOSITORY TYPE CODE TESTS RESULT OUT OF RANGE REFERENCE UNITS LAB L501.2450 73-393 U/L Normal LIPASE 155 Performed By: #### L500.4050, L501.2450, L501.4010 #### [facility] [address] [place], [address] TROPONIN-I Collected: 07/26/2017 Status: F Source: [place] 7:25 PM [facility] REPOSITORY TYPE CODE TESTS RESULT OUT OF RANGE REFERENCE UNITS LAB L501.4010 <0.045 ng/mL Normal < 0.015 TROPONIN-I Result Comment: TROPONIN-I EXPECTED VALUES <0.045 Negative 0.045 - 0.590 Consistent with Cardiac Damage > OR = 0.600 Critical Value Not every elevated troponin is indicative of [place]. These values should be used with clinical judgement in examining the patient's clinical picture for diagnosis. To establish a diagnosis of [place] versus myocardial injury, there must be a demonstrated rise and/or fall in the troponin values, in addition to ischemic symptoms, EKG changes, new regional wall motion abnormality, and/or angiographical evidence. PLEASE NOTE: REFERENCE RANGES EDITED 17 Performed By: #### L500.4050, L501.2450, L501.4010 #### [facility] [address] [place], [address] CHEST 1 VIEW Observed: 07/26/2017 Status: F Source: [place] (PORTABLE) 7:25 PM [facility] REPOSITORY [facility] Imaging Services [address] [place] [address] Chest 1 View (Portable) MR#: [id number] Acct: [id number] Name: CHARISSA WALLACE Rep #: [id number] : 1945 F 72 From: Miller Castillo MD PCP: Ricardo GOLD,Ino Ngo Status: REG ER Study: Chest 1 View (Portable) Date of Exam: 07/26/17 Exam# [id number] Ordering Dr: Ja Nix MD STUDY: X-RAY [...] CC: Ja Nix MD; Ino Silva MD Marine Fireman: Signed PROTHROMBIN TIME W/INR Collected: 07/26/2017 Status: F Source: [place] 7:25 PM [facility] REPOSITORY TYPE CODE TESTS RESULT OUT OF RANGE REFERENCE UNITS LAB L300.4150 11.7-14.9 SECONDS Normal PROTIME 12.6 LAB L300.4200 Normal INR 0.9 Performed By: #### L300.3900, L300.4310 #### [facility] [address] [place], [place], [id number] PARTIAL THROMBOPLAST Collected: 07/26/2017 Status: F Source: [place] TIME 7:25 PM [facility] REPOSITORY TYPE CODE TESTS RESULT OUT OF RANGE REFERENCE UNITS LAB L300.4310 24.1-36.2 Seconds Normal PTT 26.6 Performed By: #### L300.3900, L300.4310 #### [facility] [address] [place], [address] CBC W/DIFF, AUTOMATED Collected: 07/21/2017 Status: F Source: [place] 4:24 PM [facility] REPOSITORY TYPE CODE TESTS RESULT OUT OF [...] Lymph 4.04 Performed By: #### L100.0100 #### [facility] [address] [place], [place], [address] COMPREHENSIVE METABOLIC Collected: 07/21/2017 Status: F Source: [place] PROFIL 4:24 PM [facility] REPOSITORY TYPE CODE TESTS RESULT OUT OF [...] 6 Performed By: #### L500.4050, L501.9520 #### [facility] [address] [place], [address] THYROID STIM HORMONE Collected: 07/21/2017 Status: F Source: [place] (TSH) 4:24 PM [facility] REPOSITORY TYPE CODE TESTS RESULT OUT OF RANGE REFERENCE UNITS LAB L501.9520 0.358-3.74 uIU/mL Low TSH 0.32 Performed By: #### L500.4050, L501.9520 #### [facility] [address] [place], [place], [address] VITAMIN D,25 HYDROXY Collected: 07/21/2017 Status: F Source: [place] 4:24 PM [facility] REPOSITORY TYPE CODE TESTS RESULT OUT OF REFERENCE UNITS RANGE LAB L506.1000 29.95-100.01 ng/mL Low Vitamin D 26.0 25-OH Result Comment: Vitamin D 25(OH) Status Range Deficiency <20 ng/mL (50nmol/L) Insuffciency 20 - 30 ng/mL (50 - 75 nmol/L) Sufficiency 30 - 100 ng/mL (75 - 250 nmol/L) Toxicity >100 ng/mL (>250 nmol/L) Performed By: #### L506.1000 #### [facility] [address], [address] HEPATITIS C ANTIBODIES Collected: 07/21/2017 Status: F Source: [place] 4:24 PM [facility] REPOSITORY TYPE CODE TESTS RESULT OUT OF RANGE REFERENCE UNITS LAB L3100.0650 0.0-0.9 s/co ratio Normal HEP C AB <0.1 Result Comment: Negative: < 0.8 Indeterminate: 0.8 - 0.9 Positive: > 0.9 The CDC recommends that a positive HCV antibody result be followed up with a HCV Nucleic Acid Amplification test (776625). Performed at: - [facility] [address] [id number] Performance Manager: Americo Marvin PhD, Phone: [phone] Performed By: #### L3100.0625 #### [facility] (refer to report for specific site) refer to report for address and phone number CT HEAD OR BRAIN W/O Observed: 07/20/2017 Status: F Source: [facility] CONTRAST 2:42 PM [facility] ORIGINAL CT [...] PM CBC Collected: 07/20/2017 Status: F Source: [facility] 1:50 PM [facility] REPOSITORY TYPE CODE TESTS RESULT OUT OF [...] CBC, ADIFF, ANEU, CMP, GFR, TSH #### [address] [address] .AUTO DIFF Collected: 07/20/2017 Status: F Source: [facility] 1:50 PM [facility] REPOSITORY TYPE CODE TESTS RESULT OUT OF [...] CBC, ADIFF, ANEU, CMP, GFR, TSH #### [address] [address] .NEUABS Collected: 07/20/2017 Status: F Source: [facility] 1:50 PM [facility] REPOSITORY TYPE CODE TESTS RESULT OUT OF REFERENCE UNITS RANGE LAB ANEU(LOINC) 2.25-8.10 10 3/mcL High Neutrophil, 10.90 Absolute Performed By: #### CBC, ADIFF, ANEU, CMP, GFR, TSH #### [address] [address] CMP Collected: 07/20/2017 Status: F Source: [facility] 1:50 PM [facility] REPOSITORY TYPE CODE TESTS RESULT OUT OF [...] CBC, ADIFF, ANEU, CMP, GFR, TSH #### [place] [address] .GFR Collected: 07/20/2017 Status: F Source: [facility] 1:50 PM [facility] REPOSITORY TYPE CODE TESTS RESULT OUT OF REFERENCE UNITS RANGE LAB GFRAA(LOINC ml/min/1.73 ) sqm GFR >60 Singaporean Result Comment: GFR Population mean for , [...] CBC, ADIFF, ANEU, CMP, GFR, TSH #### [address] [address] TSH Collected: 07/20/2017 Status: F Source: [facility] 1:50 PM [facility] REPOSITORY TYPE CODE TESTS RESULT OUT OF RANGE REFERENCE UNITS LAB TSH(LOINC) 0.360-3.740 mcIU/mL TSH 0.440 Result Comment: Please note ? as of 08/23/16 new pediatric reference intervals were added for this test. Performed By: #### CBC, ADIFF, ANEU, CMP, GFR, TSH #### [address] [address] UA Collected: 07/20/2017 Status: F Source: [facility] 1:50 PM [facility] REPOSITORY TYPE CODE TESTS RESULT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 [place] [address] 12 Lead EKG 04/24/17 0502 MR#: [id number] Acct: [id number] Name: CHARISSA WALLACE Rep #: [id number] : 1945 71 From: Humberto Dela Cruz MD Attending Dr: Monalisa Brown Status: DIS DIAN Ordering Dr: Sia De MD Date: 04/24/17 Location: [facility] Sex: F C Admitted: 04/23/17 Test Reason [...] UNCONFIRMED Confirmed by HUMBERTO DELA CRUZ ([id number]), science editor DAVID CARMONA ([id number]) on 04/27/2017 2:51:58 PM Referred By: JOSH Confirmed By:HUMBERTO DELA CRUZ 04/27/17 1452 Date Humberto Dela Cruz MD CC: Ashley Parikh MD; Sia De Signed 12 LEAD ELECTROCARDIOGRAM Observed: 04/27/2017 Status: F Source: [place] 1:47 PM [facility] REPOSITORY [facility] Cardiovascular Services [address] [place] [address] 12 Lead EKG 04/23/17 1242 MR#: [id number] Acct: [id number] Name: CHARISSA WALLACE Rep #: [id number] : 1945 71 From: Humberto Dela Cruz MD Attending Dr: Monalisa Brown Status: DIS DIAN Ordering Dr: Manpreet Whitten DO Date: 04/23/17 Location: [facility] Sex: F C Admitted: 04/23/17 Test Reason [...] ECG Confirmed by HUMBERTO DELA CRUZ ([id number]), science editor DAVID CARMONA ([id number]) on 04/27/2017 1:46:28 PM Referred By: ANYA Confirmed By:HUMBERTO DELA CRUZ 04/27/17 1346 Date Humberto Dela Cruz MD CC: Ashley Parikh MD; Manpreet Whitten DO Signed DISCHARGE SUMMARY Observed: 04/24/2017 Status: F Source: [place] 5:46 PM [facility] REPOSITORY [facility] Medical Records Department [address] [place] [address] Discharge Summary 04/24/17 1738 MR#: [id number] Acct: [id number] Name: CHARISSA WALLACE Rep #: [id number] : 1945 71 From: Ayanna Brown DO PCP: Kati GOLD,Ashley Status: DIS DIAN Y Location: [place] [address] Discharge Date and Diagnosis Date of Admission: [...] Lamont Roger DO at 15:30 EDT Tel [phone], Service support , Brain CT 04/23/17 12:54 IMPRESSION: Chronic involutional changes of the brain. Electronically Signed: Gonzales Dowell MD at 13:56 EDT Tel [phone], Service support , Cervical Spine CT 04/23/17 12:54 IMPRESSION: Multilevel degenerative changes, as described above. Electronically Signed: Gonzales Dowell MD at 13:55 EDT Tel [phone], Service support , Laboratory Tests WBC RBC [...] who presented to the emergency room at [facility] on 04/23/2017 complaining of a syncopal episode [...] seeing her. This note was generated with EN[employer]igue [employer] dictation software. It may contain incorrect words, [...] [Ecotrin] 1 tab PO DAILY 06/19/15 Ca/D3/Mag Ox/Zinc/Cut Off Man/Jostin/Bor [Calcium 600-Vit D3-Min Chew Tb] 1 each PO DAILY 06/19/15 Fluticasone 0.05% [Flonase Nasal Boaz] 2 spray NASAL DAILY 06/19/15 Lovastatin [Mevacor] 20 mg PO QHS 12/16/16 Multivitamin [Multiple Vitamins] 1 each PO DAILY 12/16/16 Citalopram Hydrobromide [Celexa] 20 mg PO 1700 04/23/17 Lorazepam [Ativan] 1 mg PO 4X/DAY 04/23/17 Primary Care Physician: Aslhey Parikh MD [Primary Care Provider] - Disposition: Against Medical Advice Minutes spent on discharge:: 20 Medical Necessity - Tobacco Use Smoking Status: Current every day smoker Tobacco Use: Cigarettes Meaningful Use Info Meaningful Use Diagnoses (Choose all that apply): None applicable Code Visit OBSV E AND M: 36860 Observation care discharge 04/24/17 1746 <Electronically signed by Ayanna Brown DO> Date Ayanna Brown DO Cosigner Signature (if applicable): Date CC: Monalisa Brown; Ashley Parikh MD Signed STRESS REPORT Observed: 04/24/2017 Status: F Source: [place] 12:36 PM [facility] REPOSITORY [facility] Cardi[place] [address] MR#: [id number] Acct: [id number] Name: CHARISSA WALLACE Rep #: [id number] : 1945 71 From: Gordy Pedroza MD [...] Pedroza MD> Date Gordy Pedroza MD CC: Ashley Parikh MD Date Dictated: 04/24/17 1233 Date Transcribed: 04/24/17 1233 Marine Fireman: CO Signed CBC W/DIFF, AUTOMATED Collected: 04/24/2017 Status: F Source: [place] 2:38 AM [facility] REPOSITORY TYPE CODE TESTS RESULT OUT OF [...] Lymph 3.50 Performed By: #### L100.0100 #### [facility] [address] [place], [place], [id number] PROTHROMBIN TIME W/INR Collected: 04/24/2017 Status: F Source: [place] 2:38 AM [facility] REPOSITORY TYPE CODE TESTS RESULT OUT OF RANGE REFERENCE UNITS LAB L300.4150 11.7-14.9 SECONDS Normal PROTIME 13.2 LAB L300.4200 Normal INR 1.0 Performed By: #### L300.3900, L300.4310 #### [facility] [address] [place], [place], [address] PARTIAL THROMBOPLAST Collected: 04/24/2017 Status: F Source: [place] TIME 2:38 AM [facility] REPOSITORY TYPE CODE TESTS RESULT OUT OF RANGE REFERENCE UNITS LAB L300.4310 24.1-36.2 Seconds Normal PTT 27.4 Performed By: #### L300.3900, L300.4310 #### [facility] [address], [address] TROPONIN-I Collected: 04/24/2017 Status: F Source: [place] 2:38 AM [facility] REPOSITORY Order Comment: 'TROP' Serial specimen #1, #2, #3, or #4: 4 TYPE CODE TESTS RESULT OUT OF RANGE REFERENCE UNITS LAB L501.4010 <0.06 ng/mL Normal < 0.02 TROPONIN-I Result Comment: TROPONIN-I EXPECTED VALUES <0.05 NEGATIVE 0.06 - 0.59 AT RISK OF W[place] > OR = 0.60 SUGGEST WV Performed By: #### L501.4010 #### [facility] [address] [facility]. [place], [place], [address] BASIC METABOLIC Collected: 04/24/2017 Status: F Source: [place] PROFILE (BMP) 2:30 AM [facility] REPOSITORY TYPE CODE TESTS RESULT OUT OF [...] GAP 7 Performed By: #### L500.2500 #### [facility] [address] [place], [address] TROPONIN-I Collected: 04/23/2017 Status: F Source: [place] 9:01 PM [facility] REPOSITORY Order Comment: 'TROP' Serial specimen #1, #2, #3, or #4: 3 TYPE CODE TESTS RESULT OUT OF RANGE REFERENCE UNITS LAB L501.4010 <0.06 ng/mL Normal < 0.02 TROPONIN-I Result Comment: TROPONIN-I EXPECTED VALUES <0.05 NEGATIVE 0.06 - 0.59 AT RISK OF W[place] > OR = 0.60 SUGGEST WV Performed By: #### L501.4010 #### [facility] [address] [facility] [place], [address] TROPONIN-I Collected: 04/23/2017 Status: F Source: [place] 5:59 PM [facility] REPOSITORY Order Comment: 'TROP' Serial specimen #1, #2, #3, or #4: 2 TYPE CODE TESTS RESULT OUT OF RANGE REFERENCE UNITS LAB L501.4010 <0.06 ng/mL Normal < 0.02 TROPONIN-I Result Comment: TROPONIN-I EXPECTED VALUES <0.05 NEGATIVE 0.06 - 0.59 AT RISK OF [place] > OR = 0.60 SUGGEST W[place] Performed By: #### L501.4010 #### [facility] [address] [place], [address] HISTORY AND PHYSICAL Observed: 04/23/2017 Status: F Source: [place] EXAM 5:57 PM [facility] REPOSITORY [facility] Medical Records Department [address] [place] [address] History and Physical 04/23/17 1555 MR#: [id number] Acct: [id number] Name: MADISONCHARISSA E Rep #: [id number] : 1945 71 From: Sia De MD PCP: Ashley Parikh MD Status: ADM DIAN Y Location: [place] [id number] Problem List (1) Hypertension Status: Chronic (2) [...] history. [facility] and [...] 3 vessel bypass surgery Psychiatric History: Anxiety CHIEF PRIVACY OFFICER History: No pertinent CHIEF PRIVACY OFFICER history Lives: Alone Smoking Status: Current every [...] Lamont Roger DO at 15:30 EDT Tel [phone], Service support , Brain CT 04/23/17 12:54 IMPRESSION: Chronic involutional changes of the brain. Electronically Signed: Gonzales Dowell MD at 13:56 EDT Tel [phone], Service support , Cervical Spine CT 04/23/17 12:54 IMPRESSION: Multilevel degenerative changes, as described above. Electronically Signed: Gonzales Dowell MD at 13:55 EDT Tel [phone], Service support , Assessment/Plan This is a [...] from Dr. Cruz office who was her clinical data associate. #2 questionable syncope/near syncope: This was reported [...] Subcu Lovenox. This note was generated with Frageggation software. It may contain incorrect words, spelling, and punctuation that were not noted in checking the note before signing. Code Visit OBSV E AND M: 41070 Initial observation care L3 04/23/17 1757 <Electronically signed by Sia De MD> Date Sia De MD Cosigner Signature: Date (if applicable) CC: Ashley Parikh MD; Sia De Signed EMERGENCY DEPARTMENT Observed: 04/23/2017 Status: F Source: [place] SUMMARY 3:32 PM [facility] REPOSITORY [facility] Medical Records Department [address] [place] [address] Emergency Department Summary 04/23/17 1528 MR#: [id number] Acct: [id number] Name: CHARISSA WALLACE Rep #: [id number] : 1945 71 From: Manpreet Whitten DO [...] rebound or rigidity, no peritoneal signs. Neuro yair-dkzwof-glcf and heel amato testing within normal limits, [...] Syncope Confusion-resolved] This note was generated with ENTrigue [employer] dictation software. It may contain incorrect words, [...] problems, contact your Primary Care Provider. Call [facility] ([phone]) or report to the closest Emergency Room. Call 911 if necessary. 04/23/17 1532 <Electronically signed by Manpreet Whitten DO> Date Manpreet Whitten DO Cosigner Signature (If Indicated): Date CC: Ashley Parikh MD SPINE CERVICAL Observed: 04/23/2017 Status: F Source: [place] WITHOUT CONTRAS 12:55 PM [facility] REPOSITORY [facility] Imaging Services [address] [place] [address] Spine Cervical without Contras MR#: [id number] Acct: [id number] Name: CHARISSA WALLACE Rep #: [id number] : 1945 F 71 From: Gonzales Dowell MD PCP: Ashley Parikh MD Status: REG ER Study: Spine Cervical without Contras Date of Exam: 04/23/17 Exam# [id number] Ordering Dr: Manpreet Whitten DO STUDY: CT [...] Gonzales Dowell MD at 13:55 EDT Tel [phone], Service support , CC: Ashley Parikh MD; Manpreet Whitten DO Marine Fireman: Signed BRAIN/HEAD WITHOUT Observed: 04/23/2017 Status: F Source: [place] CONTRAST 12:55 PM [facility] REPOSITORY [facility] Imaging Services [address] [place] [address] Brain/Head without Contrast MR#: [id number] Acct: [id number] Name: CHARISSA WALLACE Rep #: [id number] : 1945 F 71 From: Gonzales Dowell MD PCP: Ashley Parikh MD Status: REG ER Study: Brain/Head without Contrast Date of Exam: 04/23/17 Exam# [id number] Ordering Dr: Manpreet Whitten DO STUDY: CT [...] Gonzales Dowell MD at 13:56 EDT Tel [phone], Service support , CC: Ashley Parikh MD; Manpreet Whitten DO Marine Fireman: Signed CHEST 1 VIEW Observed: 04/23/2017 Status: F Source: [place] (PORTABLE) 12:55 PM [facility] REPOSITORY [facility] Imaging Services [address] [place] [address] Chest 1 View (Portable) MR#: [id number] Acct: [id number] Name: CHARISSA WALLACE Rep #: [id number] : 1945 F 71 From: Lamont Roger DO PCP: Ashley Parikh MD Status: REG ER Study: Chest 1 View (Portable) Date of Exam: 04/23/17 Exam# [id number] Ordering Dr: Manpreet Whitten DO STUDY: X-RAY [...] Lamont Roger DO at 15:30 EDT Tel [phone], Service support , CC: Ashley Parikh MD; Manpreet Whitten DO Marine Fireman: Signed BEDSIDE GLUCOSE Collected: 04/23/2017 Status: F Source: [place] 12:47 PM [facility] REPOSITORY TYPE CODE TESTS RESULT OUT OF REFERENCE UNITS RANGE LAB L501.080 70-110 mg/dL High BEDSIDE GLU 145 Result Comment: MANAGEMENT OF PATIENT CARE PER NURSING PROTOCOL Performed By: #### L501.080 #### [facility] Point of Care [address] [place], [place] [address] CBC W/DIFF, AUTOMATED Collected: 04/23/2017 Status: F Source: [place] 12:45 PM [facility] REPOSITORY TYPE CODE TESTS RESULT OUT OF [...] Lymph 3.41 Performed By: #### L100.0100 #### [facility] [address] [place], [place], [address] BASIC METABOLIC Collected: 04/23/2017 Status: F Source: [place] PROFILE (BMP) 12:45 PM [facility] REPOSITORY Order Comment: 'TROP' Serial specimen #1, [...] 7 Performed By: #### L500.2500, L501.4010 #### [facility] [address] [place], [address] TROPONIN-I Collected: 04/23/2017 Status: F Source: [place] 12:45 PM [facility] REPOSITORY Order Comment: 'TROP' Serial specimen #1, #2, #3, or #4: 1 TYPE CODE TESTS RESULT OUT OF RANGE REFERENCE UNITS LAB L501.4010 <0.06 ng/mL Normal < 0.02 TROPONIN-I Result Comment: TROPONIN-I EXPECTED VALUES <0.05 NEGATIVE 0.06 - 0.59 AT RISK OF [place] > OR = 0.60 SUGGEST WV Performed By: #### L500.2500, L501.4010 #### [facility] [address] [place], [address] ALLERGIES ALLERGIES DATE TYPE / CODE NAME / CODE REACTION SEVERITY SOURCE 01/30/20 Drug bupropion/B32077 hallucinations Unknown [place] 18 Allergy/264493216 4611(RXNORM) [facility] (SNOMED CT) Hospital Repository 01/06/20 Drug tramadol PT UNSURE Unknown [place] 18 Allergy/894998428 HCl/R531621133([facility] (SNOMED CT) XNORM) Hospital Repository 01/06/20 Drug Penicillins/F001 Hives Unknown [place] 18 Allergy/574916026 636259(RXNORM) [facility] (SNOMED CT) Hospital Repository 01/06/20 Drug morphine/D040954 PT UNSURE Unknown [place] 18 Allergy/797519804 545(RXNORM) [facility] (SNOMED CT) Hospital Repository 06/10/19 DRUG MORPHINE HCL [facility] [place] [facility] INGREDI/020590402 [facility] (SNOMED CT) [place] Repository 06/10/19 DRUG NALBUPHINE HCL [place] [facility] INGREDI/349836805 Clinic [facility] (SNOMED CT) [place] Repository 06/10/19 DRUG ORPHENADRINE [place] [facility] INGREDI/665883528 Clinic [facility] (SNOMED CT) [place] Repository 06/10/19 Drug PENICILLINS RASH [place] 07 Class/519807224(S [facility] NOMED CT) [place] Repository 06/10/19 DRUG TRAMADOL HCL RASH [place] 07 INGREDI/993646281 Clinic [facility] (SNOMED CT) [place] Repository 06/10/19 Miscellaneous OTHER [facility] [place] 07 Allergy/753617279 Clinic [facility] (SNOMED CT) [place] Repository NG/991083605(SNOM MORPHINE HCL [facility] ED [facility] Repository NG/564817899(SNOM NALBUPHINE HCL [facility] ED CT) [facility] Repository NG/532912078(SNOM ORPHENADRINE [facility] ED CT) [facility] Repository NG/749319784(SNOM PENICILLINS [facility] ED CT) [facility] Repository NG/115672784(SNOM TRAMADOL HCL [facility] ED CT) [facility] Repository NG/028725410(SNOM OTHER [facility] ED CT) [facility] Repository ENCOUNTERS ENCOUNTERS ADMIT/DISCHARGE ACCOUNT NUMBER ADMITTING ENCOUNTER LOCATION SOURCE CLASS 03/03/2018 [id number] Ambulatory BMSBuilding: [place] [facility] Repository 03/03/2018 [id number] Ambulatory [facility] ding:[facility] Repository 02/10/2018 [id number] Ambulatory [facility] ding:POLAB3 Repository 01/29/2018/01/30/20 [id number] Ambulatory BMSBuilding: [address] Repository 01/29/2018 [id number] Ambulatory BMSBuilding: [place] [facility] Repository 01/05/2018 [id number] Ambulatory BMSBuilding: [facility] Repository 01/05/2018/01/07/20 [id number] Ambulatory BMSBuilding: [address] Repository 01/05/2018/01/07/20 [id number] [place], Ambulatory [address] ding:[facility] Repository : OHE297Sba: 1 01/05/2018 [id number] [place], Ambulatory BMSBuilding: [facility] Repository 01/05/2018 [id number] [place], Ambulatory BMSBuilding: [facility] Repository 12/29/2017 [id number] Ambulatory BMSBuilding: [place] BMS.[facility] Repository 12/28/2017 [id number] Ambulatory BMSBuilding: [place] BMS.[facility] Repository 12/28/2017 [id number] Ambulatory BMSBuilding: [place] [facility] Repository 12/28/2017/12/30/19 [id number] Ambulatory [address] ding:CLSPRoo Repository m: [id number] 12/23/2017 [id number] Ambulatory BMSBuilding: [place] BMS.[facility] Repository 12/18/2017/12/19/19 [id number] Ambulatory BMSBuilding: [place] 18 BMS.[facility] Repository 12/17/2017 [id number] Ambulatory BMSBuilding: [place] BMS.[facility] Repository 12/17/2017 [id number] Ambulatory [facility] ding:RAD Repository 10/21/2017 [id number] Ambulatory [facility] ding:POLAB3 Repository 09/14/2017 [id number] Ambulatory [facility] ding:POLAB3 Repository 09/11/2017/09/12/19 [id number] Emergency [address] ding:ED Repository 09/06/2017/09/07/19 [id number] Emergency [address] ding:ED Repository 08/27/2017 [id number] Ambulatory [facility] ding:POLAB3 Repository 08/08/2017 [id number] Ambulatory [facility] ding:CT Repository 08/04/2017 [id number] Ambulatory [facility] ding:POLAB3 Repository 07/27/2017 [id number] Inpatient [address] [place] [address] Encounter 4NRoom: System [id number]: Repository [id number] 07/26/2017/07/27/19 [id number] Emergency [address] ding:ED Repository 07/21/2017 [id number] Ambulatory [facility] ding:POLAB3 Repository 07/20/2017/07/21/19 [id number] Emergency ABuilding:ER [address] Repository 07/16/2017/07/25/19 [id number] Ambulatory [address] [place] Repository 07/16/2017/07/22/19 [id number] Ambulatory [address] [place] Repository 07/11/2017/07/25/19 [id number] Ambulatory [address] Repository 06/29/2017 [id number] Ambulatory [facility] ding:MRI Repository 06/22/2017 [id number] Ambulatory [facility] ding:CVS Repository 06/18/2017/06/19/19 [id number] Ambulatory [address] [place] Repository 06/11/2017 [id number] Ambulatory [facility] ding:LAB Repository 06/05/2017 [id number] Ambulatory [facility] MEDICAL Repository CENTERBuildi ng:CAGWS 06/01/2017/06/02/19 [id number] Emergency [address] ding:ED Repository 05/30/2017 [id number] Ambulatory [facility] [place] Repository 05/30/2017/05/31/19 [id number] Ambulatory [address] [place] Repository 05/30/2017/06/02/19 [id number] Ambulatory [address] [place] Repository 05/29/2017 [id number] Emergency [facility] ding:ED Repository 05/13/2017/05/14/19 [id number] Ambulatory [address] Repository 04/24/2017/04/25/19 [id number] Ambulatory BMSBuilding: [place] [facility] Repository 04/24/2017/04/25/19 [id number] Ambulatory BMSBuilding: [place] [address] [place] [address] Repository 04/23/2017/04/25/19 [id number] [place], Ambulatory [address] ding:PCURoom Repository : ASK172Oie: 1 04/23/2017 [id number] [place], Ambulatory BMSBuilding: Jerome Ghasem [facility] Repository 04/23/2017 [id number] eTresita, Ambulatory BMSBuilding: [place] Ghasem BMS.[facility] Repository PAYERS PAYERS ENCOUNTER GUARANTOR PAYER SUBSCRIBER SOURCE 03/03/2018 CHARISSA E Primary CHARISSA E [place] [id number] Insurance:MEDICARE JOHNSONDOB: Community ANTONIA TAVERAS PART A BPolicy Number: [id number] [id number] Repository [address]885Ozr: (330) Date:2018-01-29 [phone] () 03/03/2018 Secondary CHARISSA E [place] Insurance:MUTUAL OF JOHNSONDOB: [facility] Number: [id number] [place] [address] [id number] Repository Date:1614-99-59TIRLWOMARSHALL, [place] [address]CJ: 03/03/2018 Tertiary NOT GIVENUNK [place] Insurance:SELF PAY [facility] Number: Effective Repository Date:2018-03-03 03/03/2018 CHARISSA E Primary CHARISSA E [place] [id number] Insurance:MEDICARE JOHNSONDOB: [facility] ANTONIA TAVERAS PART A BPolicy Number: [id number] [id number] Repository [address]Cep: (622) Date:2018-01-29 [phone] () 03/03/2018 Secondary CHARISSA E [place] Insurance:MUTUAL OF JOHNSONDOB: [facility] Number: [id number] [place] [address] [id number] Repository Date:1881-84-89RPJCUK [place] [address]MR: 03/03/2018 Tertiary NOT GIVENUNK [place] Insurance:SELF PAY [facility] Number: Effective Repository Date:2018-01-29 02/10/2018 CHARISSA E Primary CHARISSA E [place] [id number] Insurance:MEDICARE JOHNSONDOB: [facility] Antonia Taveras PART A BPolicy Number: [id number] [place] [address] [id number] Repository 18563Bws: (330) Date:2018-02-10 [phone] () 02/10/2018 Secondary CHARISSA E [place] Insurance:MUTUAL OF JOHNSONDOB: [facility] Number: [id number] [place] [address] [id number] Repository Date:4418-43-11TXCBEZ [place], [place] [address]PK: 02/10/2018 Tertiary NOT GIVENUNK [place] Insurance:SELF PAY [facility] Number: Effective Repository Date:2018-02-10 01/29/2018 CHARISSA E Primary CHARISSA E [place] [id number] Insurance:MEDICARE JOHNSONDOB: [facility] PART A BPolicy Number: [id number] [place] [address] [id number] Repository 094[address]Dod: (935) Date:2017-12-29 [phone] () 01/29/2018 Secondary CHARISSA E [place] Insurance:MUTUAL OF JOHNSONDOB: [facility] Number: [id number] [place] [address] [id number] Repository Date:8315-10-91OFHQEJ [place] [address]JX: 01/29/2018 Tertiary NOT GIVENUNK [place] Insurance:SELF PAY [facility] Number: Effective Repository Date:2018-01-29 01/29/2018 CHARISSA E Primary CHARISSA E [place] [id number] Insurance:MEDICARE JOHNSONDOB: [facility] PART A BPolicy Number: [id number] [place] [address] [id number] Repository 87[address]Zji: (852) Date:2018-01-29 [phone] () 01/29/2018 Secondary CHARISSA E [place] Insurance:MUTUAL OF JOHNSONDOB: [facility] Number: [id number] [place] [address] [id number] Repository Date:2307-66-84OMOFCV [place] [address]UE: 01/29/2018 Tertiary NOT GIVENUNK [place] Insurance:SELF PAY [facility] Number: Effective Repository Date:2018-01-29 01/05/2018 CHARISSA E Primary CHARISSA E [place] [id number] Insurance:MEDICARE JOHNSONDOB: Community Forman DrLot PART A BPolicy Number: [id number] [id number] Repository [address]Tbr: (330) Date:2018-01-05 [phone] (HP) 01/05/2018 Secondary CHARISSA E [place] Insurance:MUTUAL OF JOHNSONDOB: [facility] Number: [id number] Hospital [id number] Repository Date:6643-00-32FVAQAZBANDON, [place] [address]WR: 01/05/2018 Tertiary NOT GIVENUNK [place] Insurance:SELF PAY [facility] Number: Effective Repository Date:2018-01-05 01/05/2018 CHARISSA E Primary CHARISSA E [place] [id number] Insurance:MEDICARE JOHNSONDOB: [facility] PART A BPolicy Number: [id number] [id number] Repository 109[address]Gyu: (330) Date:2018-01-05 [phone] (HP) 01/05/2018 Secondary CHARISSA E [place] Insurance:MUTUAL OF JOHNSONDOB: [facility] Number: [id number] [place] [address] [id number] Repository Date:1379-27-76MOEUPKBANDON, [place] [address]ZC: 01/05/2018 Tertiary NOT GIVENUNK [place] Insurance:SELF PAY [facility] Number: Effective Repository Date:2018-01-05 01/05/2018 CHARISSA E Primary CHARISSA E [place] [id number] Insurance:MEDICARE JOHNSONDOB: [facility] Antonia DrLot PART A BPolicy Number: [id number] [id number] Repository [address]Ear: (330) Date:2018-01-05 [phone] (HP) 01/05/2018 Secondary CHARISSA E [place] Insurance:MUTUAL OF JOHNSONDOB: [facility] Number: [id number] [place] [address] [id number] Repository Date:1065-51-36HVSFJP [place] [address]EV: 01/05/2018 Tertiary NOT GIVENUNK [place] Insurance:SELF PAY [facility] Number: Effective Repository Date:2018-01-05 01/05/2018 CHARISSA E Primary CHARISSA E [place] [id number] Insurance:MEDICARE JOHNSONDOB: [facility] Forman DrLot PART A BPolicy Number: [id number] [place] [address] [id number] Repository 71489Isv: (485) Date:2018-01-05 [phone] () 01/05/2018 Secondary CHARISSA E [place] Insurance:MUTUAL OF JOHNSONDOB: [facility] Number: [id number] [place] [address] [id number] Repository Date:2234-77-01LNDSNC [place], [place] [address]RS: 01/05/2018 Tertiary NOT GIVENUNK [place] Insurance:SELF PAY [facility] Number: Effective Repository Date:2018-01-05 01/05/2018 CHARISSA E Primary CHARISSA E [place] [id number] Insurance:MEDICARE JOHNSONDOB: Community Forman DrLot PART A BPolicy Number: [id number] [place] [address] [id number] Repository 32[address]Plt: (468) Date:2018-01-05 [phone] () 01/05/2018 Secondary CHARISSA E [place] Insurance:MUTUAL OF JOHNSONDOB: [facility] Number: [id number] [place] [address] [id number] Repository Date:7425-14-84FBKKYU [place], [place] [address]WT: 01/05/2018 Tertiary NOT GIVENUNK [place] Insurance:SELF PAY [facility] Number: Effective Repository Date:2018-01-05 12/29/2017 CHARISSA E Primary CHARISSA E [place] [id number] Insurance:MEDICARE JOHNSONDOB: Community Forman DrLot PART A BPolicy Number: [id number] [place] [address] [id number] Repository [address]Siy: (330) Date:2017-12-18 [phone] () 12/29/2017 Secondary CHARISSA E [place] Insurance:MUTUAL OF JOHNSONDOB: [facility] Number: [id number] [place] [address] [id number] Repository Date:7246-20-21LZHXQN [place], [place] [address]WO: 12/29/2017 Tertiary NOT GIVENUNK [place] Insurance:SELF PAY [facility] Number: Effective Repository Date:2017-12-29 12/28/2017 CHARISSA E Primary CHARISSA E [place] [id number] Insurance:MEDICARE JOHNSONDOB: [facility] Antonia DrLot PART A BPolicy Number: [id number] [place] [address] [id number] Repository 23[address]Tth: (834) Date:2017-12-28 [phone] () 12/28/2017 Secondary CHARISSA E [place] Insurance:MUTUAL OF JOHNSONDOB: [facility] Number: [id number] [place] [address] [id number] Repository Date:1531-44-46ZSUCFZ [place], [place] [address]AR: 12/28/2017 Tertiary NOT GIVENUNK [place] Insurance:SELF PAY [facility] Number: Effective Repository Date:2017-12-28 12/28/2017 CHARISSA E Primary CHARISSA E [place] [id number] Insurance:MEDICARE JOHNSONDOB: [facility] Forman DrLot PART A BPolicy Number: [id number] [id number] Repository 96[address]Gsx: (330) Date:2017-12-18 [phone] (HP) 12/28/2017 Secondary CHARISSA E [place] Insurance:MUTUAL OF JOHNSONDOB: [facility] Number: [id number] [place] [address] [id number] Repository Date:9331-46-66OTFQDYBANDON, [place] [address]IJ: 12/28/2017 Tertiary NOT GIVENUNK [place] Insurance:SELF PAY [facility] Number: Effective Repository Date:2017-12-28 12/28/2017 CHARISSA E Primary CHARISSA E [place] [id number] Insurance:MEDICARE JOHNSONDOB: Community Forman DrLot PART A BPolicy Number: [id number] [id number] Repository 170[address]Pmq: (870) Date:2017-12-18 [phone] () 12/28/2017 Secondary CHARISSA E [place] Insurance:MUTUAL OF JOHNSONDOB: [facility] Number: [id number] [place] [address] [id number] Repository Date:2615-54-90DBHRUIMARSHALL, [place] [address]FH: 12/28/2017 Tertiary NOT GIVENUNK [place] Insurance:SELF PAY [facility] Number: Effective Repository Date:2017-12-18 12/23/2017 CHARISSA E Primary CHARISSA E [place] [id number] Insurance:MEDICARE JOHNSONDOB: Community Forman DrLot PART A BPolicy Number: [id number] [id number] Repository 89[address]Qbx: (112) Date:2017-12-23 [phone] () 12/23/2017 Secondary CHARISSA E [place] Insurance:MUTUAL OF JOHNSONDOB: [facility] Number: [id number] [place] [address] [id number] Repository Date:0405-39-89PBIJNDBANDON, [place] [address]EA: 12/23/2017 Tertiary NOT GIVENUNK [place] Insurance:SELF PAY [facility] Number: Effective Repository Date:2017-12-23 12/18/2017 CHARISSA E Primary CHARISSA E [place] [id number] Insurance:MEDICARE JOHNSONDOB: Community Forman DrLot PART A BPolicy Number: [id number] [id number] Repository [address]Unr: (000) Date:2017-12-17 [phone] () 12/18/2017 Secondary CHARISSA E [place] Insurance:MUTUAL OF JOHNSONDOB: [facility] Number: [id number] [id number] Repository Date:9805-22-04OVWGZY [place], [place] [address]SR: 12/18/2017 Tertiary NOT GIVENUNK [place] Insurance:SELF PAY [facility] Number: Effective Repository Date:2017-12-18 12/17/2017 CHARISSA E Primary CHARISSA E [place] [id number] Insurance:MEDICARE JOHNSONDOB: [facility] Judie PART A olicy Number: [id number] [id number] Repository [address]Dse: (035) Date:2017-12-17 [phone] () 12/17/2017 Secondary CHARISSA E [place] Insurance:MUTUAL OF JOHNSONDOB: [facility] Number: [id number] [id number] Repository Date:1450-94-19EBNYSI [place], [place] [address]AZ: 12/17/2017 Tertiary NOT GIVENUNK [place] Insurance:SELF PAY [facility] Number: Effective Repository Date:2017-12-17 12/17/2017 CHARISSA E Primary CHARISSA E [place] [id number] Insurance:MEDICARE JOHNSONDOB: [facility] Judie PART A olicy Number: [id number] [place] [address] [id number] Repository 74114Wif: (855) Date:2017-12-17 [phone] () 12/17/2017 Secondary CHARISSA E [place] Insurance:MUTUAL OF MADISONDOB: [facility] Number: [id number] [id number] Repository Date:3136-71-96QVJEWE [place] [address]KX: 12/17/2017 Tertiary NOT GIVENUNK [place] Insurance:SELF PAY [facility] Number: Effective Repository Date:2017-12-17 10/21/2017 Charissa E Primary Charissa E [place] [id number] Insurance:MEDICARE JohnsonDOB: Community Forman DrLot PART A olicy Number: [id number] [id number] Repository [address]Cnw: (330) Date:2017-10-21 [phone] () 10/21/2017 Secondary Charissa E [place] Insurance:MUTUAL OF JohnsonDOB: [facility] Number: [id number] [id number] Repository Date:6176-57-78HPQNKE [place], [place] [address]ID: 10/21/2017 Tertiary NOT GIVENUNK [place] Insurance:SELF PAY [facility] Number: Effective Repository Date:2017-10-21 09/14/2017 Charissa E Primary Charissa E [place] [id number] Insurance:MEDICARE JohnsonDOB: [facility] PART A BPolicy Number: [id number] [place] [address] [id number] Repository 11394Prr: (246) Date:2017-09-14 [phone] () 09/14/2017 Secondary Charissa E [place] Insurance:MUTUAL OF JohnsonDOB: [facility] Number: [id number] [id number] Repository Date:6496-91-96NTBJBW [place] [address]JT: 09/14/2017 Tertiary NOT GIVENUNK [place] Insurance:SELF PAY [facility] Number: Effective Repository Date:2017-09-14 09/11/2017 Charissa E Primary Charissa E [place] [id number] Insurance:MEDICARE JohnsonDOB: Community Antonia DrLot PART A olicy Number: [id number] [id number] Repository [address]Axs: (330) Date:2017-09-11 [phone] () 09/11/2017 Secondary Charissa E [place] Insurance:MUTUAL OF JohnsonDOB: [facility] Number: [id number] Hospital [id number] Repository Date:9234-12-64JSHHCS [place], [place] [address]QF: 09/11/2017 Tertiary NOT GIVENUNK [place] Insurance:SELF PAY [facility] Number: Effective Repository Date:2017-09-11 09/06/2017 Charissa E Primary Charissa E [place] [id number] Insurance:MEDICARE JohnsonDOB: Community Antonia Taveras PART A BPolicy Number: [id number] [id number] Repository 478[address]Tpz: (500) Date:2017-09-06 [phone] () 09/06/2017 Secondary Charissa E [place] Insurance:MUTUAL OF JohnsonDOB: [facility] Number: [id number] Hospital [id number] Repository Date:3961-43-63TKWEWK [place], [place] [address]PO: 09/06/2017 Tertiary NOT GIVENUNK [place] Insurance:SELF PAY [facility] Number: Effective Repository Date:2017-09-06 08/27/2017 Charissa E Primary Charissa E [place] [id number] Insurance:MEDICARE JohnsonDOB: Community Antonia Taveras PART A olicy Number: [id number] [id number] Repository 101[address]Lkm: (185) Date:2017-08-27 [phone] () 08/27/2017 Secondary Charissa E [place] Insurance:MUTUAL OF JohnsonDOB: [facility] Number: [id number] [place] [address] [id number] Repository Date:8835-67-21VVJGKP [place], [place] [address]IH: 08/27/2017 Tertiary NOT GIVENUNK [place] Insurance:SELF PAY [facility] Number: Effective Repository Date:2017-08-27 08/08/2017 Charissa E Primary Charissa E [place] [id number] Insurance:MEDICARE JohnsonDOB: Community Antonia BlankLot PART A BPolicy Number: [id number] [id number] Repository [address]Fwp: (274) Date:2017-07-21 [phone] (HP) 08/08/2017 Secondary Charissa E [place] Insurance:MUTUAL OF JohnsonDOB: [facility] Number: [id number] Hospital [id number] Repository Date:0876-50-66JAHEDO [place], [place] [address]LW: 08/08/2017 Tertiary NOT GIVENUNK [place] Insurance:SELF PAY [facility] Number: Effective Repository Date:2017-07-21 08/04/2017 Charissa E Primary Charissa E [place] [id number] Insurance:MEDICARE JohnsonDOB: [facility] A BPolicy Number: [id number] [id number] Repository [address]Ifc: (516) Date:2017-08-04 [phone] (HP) 08/04/2017 Secondary Charissa E [place] Insurance:MUTUAL OF JohnsonDOB: [facility] Number: [id number] Hospital [id number] Repository Date:6913-56-90CUGQXL [facility] [place] [address]FU: 08/04/2017 Tertiary NOT GIVENUNK [place] Insurance:SELF PAY [facility] Number: Effective Repository Date:2017-08-04 07/27/2017 Charissa E Primary Charissa E [facility] JohnsonDOB: Insurance:MedicarePoli JohnsonDOB: System [id number] cy Number: Effective [id number] Date: [place], [place] [address]Waw: (HP) 07/27/2017 Secondary Charissa E [facility] Insurance:MedicarePoli JohnsonDOB: System cy Number: Effective [id number] Repository Date: 07/27/2017 Tertiary Charissa E [facility] Insurance:[place] JohnsonDOB: System [facility] [id number] Repository Number: Effective Date: 07/26/2017 Charissa E Primary Charissa E [place] [id number] Insurance:MEDICARE JohnsonDOB: [facility] Antonia Taveras PART A BPolicy Number: [id number] [id number] Repository [address]Ypi: (330) Date:2017-07-26 [phone] () 07/26/2017 Secondary Charissa E [place] Insurance:MUTUAL OF JohnsonDOB: [facility] Number: [id number] Hospital [id number] Repository Date:4624-46-36QTVSVY [place] [address]FN: 07/26/2017 Tertiary NOT GIVENUNK [place] Insurance:SELF PAY [facility] Number: Effective Repository Date:2017-07-26 07/21/2017 Charissa E Primary Charissa E [place] [id number] Insurance:MEDICARE JohnsonDOB: [facility] Antonia Taveras PART A BPolicy Number: [id number] [id number] Repository [address]Pqk: (166) Date:2017-07-21 [phone] () 07/21/2017 Secondary Charissa E [place] Insurance:MUTUAL OF JohnsonDOB: [facility] Number: [id number] Hospital [id number] Repository Date:6239-85-91EOTOPV [place] [address]FQ: 07/21/2017 Tertiary NOT GIVENUNK [place] Insurance:SELF PAY [facility] Number: Effective Repository Date:2017-07-21 07/20/2017 CHARISSA E Primary CHARISSA E [facility] JOHNSONDOB: Insurance:MEDICARE JOHNSONDOB: [facility] [id number] PART BPolicy Number: [id number] Repository [id number] [address] [place], [place] Date:2017-07-[address] [place] [address] 99[address]Qbt: (400) 1570-28-02Nsad [address]Vnv: () Name:[address] ()Tel: (000) [address] [address]Ijnaekksu, [place] 000-0000 (WP) [address]VS: 07/20/2017 Secondary CHARISSA E [facility] Insurance:MUTUAL OF [facility]: [facility] Number: [id number] Repository [id number] [address] Date:2017-07-[address] [place] [address] 8138-69-54Cimw 49944Qdb: (330) Name:CMUTUAL [address] ()Tel: 000) [address]YW: () [phone] 06/29/2017 Charissa E Primary Charissa E [place] [id number] Insurance:MEDICARE JohnsonDOB: [facility] Forman DrLot PART A BPolicy Number: [id number] [id number] Repository [address]Npf: (330) Date:2017-06-22 [phone] () 06/29/2017 Secondary Charissa E [place] Insurance:[facility]UAL OF [facility] Number: [id number] Hospital [id number] Repository Date:9707-56-11OTBELF [place], [place] [address]LN: 06/29/2017 Tertiary NOT GIVENUNK [place] Insurance:SELF PAY [facility] Number: Effective Repository Date:2017-06-22 06/22/2017 Charissa E Primary Charissa E [place] [id number] Insurance:MEDICARE JohnsonDOB: [facility] Forman DrLot PART A BPolicy Number: [id number] [id number] Repository [address]Nvv: (330) Date:2017-06-22 [phone] () 06/22/2017 Secondary Charissa E [place] Insurance:MUTUAL OF JohnsonDOB: [facility] Number: [id number] Hospital [id number] Repository Date:4656-38-57ZXLOGRMARSHALL, [place] [address]UO: 06/22/2017 Tertiary NOT GIVENUNK [place] Insurance:SELF PAY [facility] Number: Effective Repository Date:2017-06-22 06/11/2017 Charissa E Primary Charissa E [place] [id number] Insurance:PAVILLION JohnsonDOB: [facility] [id number] Number: Repository [address]Eyq: (655) [id number] [phone] () Date:2017-06-11 06/11/2017 Secondary Charissa E [place] Insurance:MEDICARE JohnsonDOB: [facility] PART A BPolicy Number: [id number] [id number] Repository Date:2017-06-11 06/11/2017 Tertiary Charissa E [place] Insurance:MUTUAL OF JohnsonDOB: [facility] Number: [id number] Hospital [id number] Repository Date:2996-34-74SYITKQ [place], [place] [address]RT: 06/11/2017 Tertiary NOT GIVENUNK [place] Insurance:SELF PAY [facility] Number: Effective Repository Date:2017-06-11 06/05/2017 CHARISSA E Primary CHARISSA E [facility] JOHNSONDOB: Insurance:MEDICARE A JOHNSONDOB: Health System AND BPolicy Number: [id number] Repository [facility] [id number] [address] [place] [address] Date: 09623Byf: () 06/05/2017 Secondary CHARISSA E [facility] Insurance:MUTUAL OF JOHNSONDOB: [facility] MEDICARE [id number] Repository SUPPLEMENTPolicy Number: [id number] Date: 06/01/2017 Charissa E Primary Charissa E [place] [id number] Insurance:MEDICARE JohnsonDOB: Community Antonia DrLot PART A BPolicy Number: [id number] [id number] Repository [address]Wbp: (330) Date:2017-06-01 [phone] () 06/01/2017 Secondary Charissa E [place] Insurance:MUTUAL OF JohnsonDOB: [facility] Number: [id number] Hospital [id number] Repository Date:8663-68-79JKKKBH OF [place], [place] [address]TW: 06/01/2017 Tertiary NOT GIVENUNK [place] Insurance:SELF PAY [facility] Number: Effective Repository Date:2017-06-01 05/29/2017 Charissa E Primary Charissa E [place] [id number] Insurance:MEDICARE JohnsonDOB: [facility] PART A BPolicy Number: [id number] [id number] Repository [address]Shc: (330) Date:2017-05-29 [phone] (HP) 05/29/2017 Secondary Charissa E [place] Insurance:MUTUAL OF JohnsonDOB: [facility] Number: [id number] Hospital [id number] Repository Date:4858-20-61QEXSIU [place], [place] [address]CS: 05/29/2017 Tertiary NOT GIVENUNK Jerome Insurance:SELF PAY [facility] Number: Effective Repository Date:2017-05-29 04/24/2017 Charissa E Primary Charissa E [place] [id number] Insurance:MEDICARE JohnsonDOB: [facility] Forman DrLot PART A BPolicy Number: [id number] [id number] Repository [address]Wbc: ([phone]) Date:2017-04-23 [phone] (HP) 04/24/2017 Secondary Charissa E Jerome Insurance:MUTUAL OF JohnsonDOB: [facility] Number: [id number] Hospital [id number] Repository Date:1301-96-63FRZDQDMARSHALL, [place] [address]PK: 04/24/2017 Tertiary NOT GIVENUNK Jerome Insurance:SELF PAY [facility] Number: Effective Repository Date:2017-04-24 04/24/2017 Charissa E Primary Charissa E Jerome [id number] Insurance:MEDICARE JohnsonDOB: Community Antonia DrLot PART A BPolicy Number: [id number] [id number] Repository [address]Pqs: (162) Date:2017-04-23 [phone] () 04/24/2017 Secondary Charissa E Jerome Insurance:MUTUAL OF JohnsonDOB: [facility] Number: [id number] [place] [address] [id number] Repository Date:1051-07-42ZEJXOCMARSHALL, [place] [address]NV: 04/24/2017 Tertiary NOT GIVENUNK Jerome Insurance:SELF PAY [facility] Number: Effective Repository Date:2017-04-24 04/23/2017 Charissa E Primary Charissa E Jerome [id number] Insurance:MEDICARE JohnsonDOB: Community Forman DrLot PART A BPolicy Number: [id number] [id number] Repository [address]Afw: (694) Date:2017-04-23 [phone] (HP) 04/23/2017 Secondary Charissa E [place] Insurance:MUTUAL OF JohnsonDOB: [facility] Number: [id number] [place] [address] [id number] Repository Date:2643-92-11SMSXNTBANDON, [place] [address]MX: 04/23/2017 Tertiary NOT GIVENUNK [place] Insurance:SELF PAY [facility] Number: Effective Repository Date:2017-04-23 04/23/2017 Charissa E Primary Charissa E Jerome [id number] Insurance:MEDICARE JohnsonDOB: Community Forman DrLot PART A BPolicy Number: [id number] [id number] Repository [address]Jln: ([phone]) Date:2017-04-23 [phone] () 04/23/2017 Secondary Charissa E Jerome Insurance:MUTUAL OF JohnsonDOB: [facility] Number: [id number] Hospital [id number] Repository Date:7442-20-56ICFAZT OF [place], [place] [address]FR: 04/23/2017 Tertiary NOT GIVENUNK [place] Insurance:SELF PAY [facility] Number: Effective Repository Date:2017-04-23 04/23/2017 Charissa E Primary Charissa E Jerome [id number] Insurance:MEDICARE JohnsonB[facility] Cel[facility] BPolicy Number: [id number] [id number] Repository [address]Mmm: (330) Date:2017-04-23 [phone] () 04/23/2017 Secondary Charissa E [place] Insurance:MUTUAL OF JohnsonDOB: [facility] Number: [id number] Hospital [id number] Repository Date:6378-93-72VKLOGE OF [place], [place] [address]NO: 04/23/2017 Tertiary NOT GIVENUNK [place] Insurance:SELF PAY [facility] Number: Effective Repository Date:2017-04-23
== END ==
PROVIDERS: Family Provider Family Medicine Geriatric Medicine; PCP Family Medicine Geriatric Medicine; Referring Provider Internal Medicine Cardiovascular Disease; Visit Provider Internal Medicine Cardiovascular Disease
DX: I25.810 Atherosclerosis of coronary artery bypass graft(s) without angina pectoris (principal)
CPT/HCPCS: 93306

== ENCOUNTER 2018-04-07 21:35 | Emergency (ER) | payer MEDICARE, OTHER, SELFPAY ==
[2017-12-28 13:50] VITALS: BMI 29.2
[2018-01-29 11:54] VITALS: BMI 29.5
[2018-04-07 21:36] VITALS: BP 147/83; PULSE 74; RESP 15; TEMP 36.6; O2SAT 95; BMI 28.3
[2018-04-07] MEDS: Oxymetazoline 0.05% 1 SPRAY SPRAY.BTL NASAL (22:02)
[2018-04-07 23:21] VITALS: BP 159/67; PULSE 59; O2SAT 97
--- NOTE | 2018-04-07 23:22 | ED.RN ---
NO BLEEDING NOTED FROM PATIENT'S TONGUE CURRENTLY.
--- NOTE | 2018-04-07 23:27 | ED.DCSUM_ITS ---
History of Present Illness Chief Complaint: Dental Detail of Chief Complaint: Bit tongue and bleeding Informant: Patient Onset: Today Context: Sudden Onset Timing: Continuous Quality: Bleeding Location: Tip of tongue Current Severity: Mild Maximum Severity: Mild Worsened by: Trauma Relieved by: Nothing Associated Symptoms: None Narrative: Elderly woman on Plavix who bit the tip of her tongue. She presents because of persistent bleeding. Her policy service coordinator Dr. Hays did call and to notify patient is on Plavix. Patient has no other complaints. Prior similar symptoms: No Recent Illness/Hospitalization: No Past Medical History - Allergies and Home Meds Allergies/Adverse Reactions: Allergies morphine Allergy (Verified 04/07/18 21:40) PT UNSURE Penicillins Allergy (Verified 04/07/18 21:40) Hives tramadol HCl [From Ultram] Allergy (Verified 04/07/18 21:40) PT UNSURE bupropion [From Wellbutrin] Adverse Reaction (Verified 04/07/18 21:40) hallucinations Primary Care Physician: Ino Silva Chi, MD [Primary Care Provider] - Past Medical History: - - Coronary artery disease, hypertension, hyperlipidemia, TIA, valvular heart disease Surgical History: angioplasty - A total of 5 stents, coronary bypass surgery - 3 vessel bypass surgery, - - Tubal ligation; and partial oopherectomy. Lives: Alone Smoking Status: Current every day smoker Alcohol: None - Family History Paternal Family History: Reports: Heart Disease - Father of heart attack at age 64. Maternal Family History: Reports: Cancer - Mother of cancer at age 72. Review of Systems General: Denies: Chills, Fever, Malaise ENT: Reports: - - Bleeding tip of tongue after accidentally biting tongue.. Denies: Bilateral ear pain, Rhinorrhea, Sore throat Neurological: Denies: Headache, Weakness Hematologic: Denies: Easy bruising, Easy bleeding Allergy: Denies: Uticaria, Swelling of the mouth, Swelling of the tongue Physical Exam Vital Signs/Narrative: Vital Signs Temp Pulse Resp BP Pulse Ox 04/07/18 23:21 59 L 159/67 H 97 04/07/18 21:36 97.9 F 74 15 147/83 H 95 Inital Vital Signs reviewed: Yes General: Well nourished, Well developed, No Acute Distress Head: Normocephalic, Atraumatic Eyes: Perrl, EOMI. Negative for: Pale conjunctiva, Scleral icterus ENT: Moist mucous membranes, No rhinorrhea, - - Small laceration tip of tongue from blunt trauma Neck: Supple, Nontender, No lymphadenopathy, No JVD Cardiovascular: Regular rate, Regular rhythm, No murmurs Respiratory: No distress, CTA bilaterally Neurological: Alert, Oriented x3, Cranial nerves II-XII grossly intact, Normal Strength, Normal Sensation Psychological: Normal affect, Normal Mood Diagnostic/Tx/Re-eval None were obtained - Medical Decision Making Patient with small injury to tip of tongue. Afrin was applied for 15-30 minutes. She was observed for another 60-45 minutes. She has had no recurrence of her bleeding. Plan is to discharge to home ED Disposition - Plan for ED Patient: Disposition: Home or Assisted Living Diagnosis: Laceration of tongue without complication Instructions: ED Laceration Small Superf No Sutr Referrals: Ino Silva Chi, MD [Primary Care Provider] - As Needed
== END 2018-04-07 23:41 | disposition home or self-care (01) ==
PROVIDERS: Emergency Provider Emergency Medicine; Family Provider Family Medicine Geriatric Medicine; PCP Family Medicine Geriatric Medicine
DX: S01.512A Laceration without foreign body of oral cavity, initial encounter (principal); X58.XXXA Exposure to other specified factors, initial encounter; Y93.9 Activity, unspecified; Y92.9 Unspecified place or not applicable; I25.10 Atherosclerotic heart disease of native coronary artery without angina pectoris; I10 Essential (primary) hypertension; E78.5 Hyperlipidemia, unspecified; F17.200 Nicotine dependence, unspecified, uncomplicated; Z95.1 Presence of aortocoronary bypass graft; Z95.5 Presence of coronary angioplasty implant and graft; Z86.73 Personal history of transient ischemic attack (TIA), and cerebral infarction without residual deficits; Z79.82 Long term (current) use of aspirin; Z79.899 Other long term (current) drug therapy
CPT/HCPCS: 99282

== ENCOUNTER → 2018-04-14 14:22 | Outpatient (CLI) | payer MEDICARE, OTHER, SELFPAY ==
[2017-12-28 13:50] VITALS: BMI 29.2
[2018-04-07 21:36] VITALS: BMI 28.3
[2018-04-14 15:07] LABS: Absolute Lymphocyte Count 3.72 X10^3/ul (0.83-4.51); Basophil# 0.05 X10^3/uL; Basophil% 0.4 % (0-1); Eosinophil# 0.17 X10^3/uL; Eosinophils% 1.5 % (0-5); Hematocrit 44.3 % (37-47); Hemoglobin 13.8 g/dl (12.0-15.0); Lymphocyte # 3.72 X10^3/ul (4.0); Mean Corp Hgb Conc 31.2 g/gl (32-36); Mean Corpuscular Hgb 28.6 pg (27.0-32.0); Mean Corpuscular Volume 91.7 fL (81-99); Mean Platelet Vol. 11.3 fl (6.2-12.0); Monocyte# 0.67 X10^3/uL; Monocyte% 5.8 % (0-10); Neutrophil # 6.97 X10^3/uL (2.7-7.7); Platelet Count 293 K/mm3 (150-450); RBC Distribution Width CV 15.3 % (11.6-14.6); RBC Distribution Width SD 49.8 fl (35.1-43.9); Red Blood Count 4.83 M/mm3 (4.2-5.4); White Blood Count 11.6 K/mm3 (4.4-11.0)
[2018-04-14 15:13] LABS: POSITIVE COUNT NO; POSITIVE DIFFERENTIAL NO; POSITIVE MORPHOLOGY NO
== END ==
PROVIDERS: Family Provider Family Medicine Geriatric Medicine; PCP Family Medicine Geriatric Medicine; Visit Provider Family Medicine Geriatric Medicine
DX: D64.9 Anemia, unspecified (principal)
CPT/HCPCS: 36415; 85025

== ENCOUNTER 2018-05-05 14:29 | Emergency (ER) | payer MEDICARE, OTHER, SELFPAY ==
[2017-12-28 13:50] VITALS: BMI 29.2
[2018-05-05 14:31] VITALS: BP 165/69; PULSE 61; RESP 19; TEMP 36.9; O2SAT 98; BMI 31.1
--- NOTE | 2018-05-05 15:24 | ED.VIS.GEN ---
History of Present Illness Chief Complaint: Headache Detail of Chief Complaint: Chief complaint is dizziness Informant: Patient Limited by: - - Lack of effort Onset: Today Context: Sudden Onset Timing: Intermittent, Waxes and wanes Quality: Patient defines dizziness as spinning and balance off Location: Generalized Current Severity: Presently no symptoms Maximum Severity: Severe - With change in position Worsened by: Change in position of head Relieved by: Closing her eyes shot Associated Symptoms: Nausea Narrative: Patient is a poor informant. She had to be redirected several times. Once she understood the question she answered the questions appropriately. She complains of vertigo. Vertigo is defined as a spinning sensation and is positional. There is no complaint of double vision, blurred vision or loss of vision. Denies trouble with speech or swallowing. Denies paresthesia, anesthesia motor weakness. She denies cardiac, respiratory or symptoms. Does report nausea otherwise no GI symptoms. She denies ringing or ears. Denies decreased hearing. She denies URI symptoms. 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 Comment: Vdb-SJV-XJA-Mid RCA w/ 2.0 x 10 mm Angiosculpt and 2.5 x 38 mm Promus Synergy Stent, BRIANA-Prox RCA 2.5 x 12 mm Prmomus Synergy Stent 12/28/17 PGD-KUT-Irqdk Cx w/ 2.5 x 24mm Promus 03/12/2011, [id number]-MJK;PCI-Prox LAD; CABG x 3 SY-LAD, SVG-OM and SVG-RCA (2) Diastolic dysfunction Status: Chronic (3) Essential (primary) hypertension Status: Chronic (4) Hyperlipidemia Status: Chronic (5) Nicotine dependence Status: Chronic (6) Non-rheumatic tricuspid valve insufficiency Status: Chronic (7) Secondary pulmonary arterial hypertension Status: Chronic (8) TIA (transient ischemic attack) Status: Chronic (9) History of coronary artery bypass graft x 3 Status: Resolved Comment: CABG x 3 SY-LAD, SVG-OM and SVG-RCA (10) History of coronary artery stent placement Status: Resolved Comment: Oik-AKQ-BQG-Mid RCA w/ 2.0 x 10 mm Angiosculpt and 2.5 x 38 mm Promus Synergy Stent, BRIANA-Prox RCA 2.5 x 12 mm Prmomus Synergy Stent 12/28/17 TGS-FRX-Gtbqb Cx w/ 2.5 x 24mm Promus 03/12/2011, [id number]-BZU;PCI-Prox LAD; Past Medical History - Allergies and Home Meds Allergies/Adverse Reactions: Allergies morphine Allergy (Verified 05/05/18 14:36) PT UNSURE Penicillins Allergy (Verified 05/05/18 14:36) Hives tramadol HCl [From Ultram] Allergy (Verified 05/05/18 14:36) PT UNSURE bupropion [From Wellbutrin] Adverse Reaction (Verified 05/05/18 14:36) hallucinations Primary Care Physician: Ino Silva Chi, MD [Primary Care Provider] - Prior records reviewed: Yes Surgical History: angioplasty - A total of 5 stents, coronary bypass surgery - 3 vessel bypass surgery, - - Tubal ligation; and partial oopherectomy. Lives: Alone Smoking Status: Current every day smoker Alcohol: None - Family History Paternal Family History: Reports: Heart Disease - Father of heart attack at age 64. Maternal Family History: Reports: Cancer - Mother of cancer at age 72. Review of Systems General: Denies: Chills, Fever, Sweats Eyes: Denies: Visual changes - bilaterally, Blurred Vision - bilaterally, Diplopia ENT: Denies: Bilateral ear pain, Rhinorrhea, Sore throat Cardiovascular: Denies: Chest pain, Palpitations Respiratory: Denies: Dyspnea, Cough, Dyspnea on exertion Gastrointestinal: Denies: Abdominal pain, Nausea, Vomiting, Diarrhea, Melena, Hematochezia Genitourinary: Denies: Dysuria, Hematuria, Frequency Musculoskeletal: Denies: Myalgias, Arthralgias, Back pain, Extremity Pain Skin: Denies: Rash, Wounds Neurological: Reports: - - Vertigo that is positional. Denies: Weakness, Parasthesia, Numbness Psych: Reports: Anxiety Endocrine: Denies: Polyuria, Polydipsia Hematologic: Denies: Easy bruising, Easy bleeding, Lymphadenopathy, -, - Physical Exam Vital Signs/Narrative: Vital Signs Temp Pulse Resp BP Pulse Ox 05/05/18 14:31 98.5 F 61 19 H 165/69 H 98 Inital Vital Signs reviewed: Yes General: Well nourished, Well developed, No Acute Distress Head: Normocephalic, Atraumatic Eyes: Negative for: Perrl, EOMI, Pale conjunctiva, Scleral icterus, - ENT: Moist mucous membranes, No rhinorrhea, TM's clear. Negative for: Sinus tenderness Neck: Supple, Nontender, No lymphadenopathy, No JVD, - - No carotid bruits were noted Cardiovascular: Regular rate, Regular rhythm, No murmurs Respiratory: No distress, CTA bilaterally, Chest nontender Abdomen: Soft, Nontender, Nondistended, Normal bowel sounds Back: Nontender, Normal Inspection Extremities: Nontender, No edema Skin: Normal color, No rash Neurological: Alert, Oriented x3, Cranial nerves II-XII grossly intact, Normal Strength, Normal Sensation, Normal DTR, - - The eye Abbie test was negative. The hent test was negative. [place]-Hallpike maneuver was positive. Patient could not tell if the right side was worse than the left. Psychological: Normal affect, Normal Mood Diagnostic/Tx/Re-eval - Medical Decision Making With a normal neuro exam, positive [place]-Hallpike test and resolution of vertigo with closing her eyes and Evelio maneuver was performed. Patient states her symptoms resolved. I was informed 15 minutes after completion of Evelio maneuver patient still had no symptoms and able to ambulate. Therefore she will be discharged home Procedures Procedure(s): Evelio maneuver, manipulation of crystals ED Disposition - Plan for ED Patient: Disposition: Home or Assisted Living Diagnosis: Benign paroxysmal positional vertigo of left ear Instructions: ED BPV Vertigo Referrals: Ino Silva Chi, MD [Primary Care Provider] - As Needed
--- NOTE | 2018-05-05 15:28 | ED.DCSUM_ITS ---
History of Present Illness Chief Complaint: Headache Detail of Chief Complaint: Chief complaint is dizziness Informant: Patient Limited by: - - Lack of effort Onset: Today Context: Sudden Onset Timing: Intermittent, Waxes and wanes Quality: Patient defines dizziness as spinning and balance off Location: Generalized Current Severity: Presently no symptoms Maximum Severity: Severe - With change in position Worsened by: Change in position of head Relieved by: Closing her eyes shot Associated Symptoms: Nausea Narrative: Patient is a poor informant. She had to be redirected several times. Once she understood the question she answered the questions appropriately. She complains of vertigo. Vertigo is defined as a spinning sensation and is positional. There is no complaint of double vision, blurred vision or loss of vision. Denies trouble with speech or swallowing. Denies paresthesia, anesthesia motor weakness. She denies cardiac, respiratory or symptoms. Does report nausea otherwise no GI symptoms. She denies ringing or ears. Denies decreased hearing. She denies URI symptoms. 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 Comment: Aax-EAP-ZSG-Mid RCA w/ 2.0 x 10 mm Angiosculpt and 2.5 x 38 mm Promus Synergy Stent, BRIANA-Prox RCA 2.5 x 12 mm Prmomus Synergy Stent 12/28/17 XAT-ZUX-Muddm Cx w/ 2.5 x 24mm Promus 03/12/2011, TRT-Rvjyc-ISS;PCI-Prox LAD; CABG x 3 SY-LAD, SVG-OM and SVG-RCA (2) Diastolic dysfunction Status: Chronic (3) Essential (primary) hypertension Status: Chronic (4) Hyperlipidemia Status: Chronic (5) Nicotine dependence Status: Chronic (6) Non-rheumatic tricuspid valve insufficiency Status: Chronic (7) Secondary pulmonary arterial hypertension Status: Chronic (8) TIA (transient ischemic attack) Status: Chronic (9) History of coronary artery bypass graft x 3 Status: Resolved Comment: CABG x 3 SY-LAD, SVG-OM and SVG-RCA (10) History of coronary artery stent placement Status: Resolved Comment: Wxv-JWV-BTC-Mid RCA w/ 2.0 x 10 mm Angiosculpt and 2.5 x 38 mm Promus Synergy Stent, BRIANA-Prox RCA 2.5 x 12 mm Prmomus Synergy Stent 12/28/17 PSJ-RGP-Uooas Cx w/ 2.5 x 24mm Promus 03/12/2011, UPD-Msppd-TLV;PCI-Prox LAD; Past Medical History - Allergies and Home Meds Allergies/Adverse Reactions: Allergies morphine Allergy (Verified 05/05/18 14:36) PT UNSURE Penicillins Allergy (Verified 05/05/18 14:36) Hives tramadol HCl [From Ultram] Allergy (Verified 05/05/18 14:36) PT UNSURE bupropion [From Wellbutrin] Adverse Reaction (Verified 05/05/18 14:36) hallucinations Primary Care Physician: Ino Silva Chi, MD [Primary Care Provider] - Prior records reviewed: Yes Surgical History: angioplasty - A total of 5 stents, coronary bypass surgery - 3 vessel bypass surgery, - - Tubal ligation; and partial oopherectomy. Lives: Alone Smoking Status: Current every day smoker Alcohol: None - Family History Paternal Family History: Reports: Heart Disease - Father of heart attack at age 64. Maternal Family History: Reports: Cancer - Mother of cancer at age 72. Review of Systems General: Denies: Chills, Fever, Sweats Eyes: Denies: Visual changes - bilaterally, Blurred Vision - bilaterally, Diplopia ENT: Denies: Bilateral ear pain, Rhinorrhea, Sore throat Cardiovascular: Denies: Chest pain, Palpitations Respiratory: Denies: Dyspnea, Cough, Dyspnea on exertion Gastrointestinal: Denies: Abdominal pain, Nausea, Vomiting, Diarrhea, Melena, Hematochezia Genitourinary: Denies: Dysuria, Hematuria, Frequency Musculoskeletal: Denies: Myalgias, Arthralgias, Back pain, Extremity Pain Skin: Denies: Rash, Wounds Neurological: Reports: - - Vertigo that is positional. Denies: Weakness, Parasthesia, Numbness Psych: Reports: Anxiety Endocrine: Denies: Polyuria, Polydipsia Hematologic: Denies: Easy bruising, Easy bleeding, Lymphadenopathy, -, - Physical Exam Vital Signs/Narrative: Vital Signs Temp Pulse Resp BP Pulse Ox 05/05/18 14:31 98.5 F 61 19 H 165/69 H 98 Inital Vital Signs reviewed: Yes General: Well nourished, Well developed, No Acute Distress Head: Normocephalic, Atraumatic Eyes: Negative for: Perrl, EOMI, Pale conjunctiva, Scleral icterus, - ENT: Moist mucous membranes, No rhinorrhea, TM's clear. Negative for: Sinus tenderness Neck: Supple, Nontender, No lymphadenopathy, No JVD, - - No carotid bruits were noted Cardiovascular: Regular rate, Regular rhythm, No murmurs Respiratory: No distress, CTA bilaterally, Chest nontender Abdomen: Soft, Nontender, Nondistended, Normal bowel sounds Back: Nontender, Normal Inspection Extremities: Nontender, No edema Skin: Normal color, No rash Neurological: Alert, Oriented x3, Cranial nerves II-XII grossly intact, Normal Strength, Normal Sensation, Normal DTR, - - The eye Abbie test was negative. The hent test was negative. [place]-Hallpike maneuver was positive. Patient could not tell if the right side was worse than the left. Psychological: Normal affect, Normal Mood Diagnostic/Tx/Re-eval - Medical Decision Making With a normal neuro exam, positive [place]-Hallpike test and resolution of vertigo with closing her eyes and Evelio maneuver was performed. Patient states her sy mptoms resolved. I was informed 15 minutes after completion of Evelio maneuver patient still had no symptoms and able to ambulate. Therefore she will be discharged home Procedures Procedure(s): Evelio maneuver, manipulation of crystals ED Disposition - Plan for ED Patient: Disposition: Home or Assisted Living Diagnosis: Benign paroxysmal positional vertigo of left ear Instructions: ED BPV Vertigo Referrals: Ino Silva Chi, MD [Primary Care Provider] - As Needed
[2018-05-05 15:37] VITALS: BP 154/69; PULSE 58; RESP 13; O2SAT 94
== END 2018-05-05 15:38 | disposition home or self-care (01) ==
PROVIDERS: Emergency Provider Emergency Medicine; Family Provider Family Medicine Geriatric Medicine; PCP Family Medicine Geriatric Medicine
DX: H81.12 Benign paroxysmal vertigo, left ear (principal); I25.10 Atherosclerotic heart disease of native coronary artery without angina pectoris; I11.9 Hypertensive heart disease without heart failure; E78.5 Hyperlipidemia, unspecified; I36.1 Nonrheumatic tricuspid (valve) insufficiency; I27.21 Secondary pulmonary arterial hypertension; F17.200 Nicotine dependence, unspecified, uncomplicated; Z95.1 Presence of aortocoronary bypass graft; Z95.5 Presence of coronary angioplasty implant and graft; Z79.82 Long term (current) use of aspirin; Z79.899 Other long term (current) drug therapy; Z86.73 Personal history of transient ischemic attack (TIA), and cerebral infarction without residual deficits
CPT/HCPCS: 99284; J7030

== ENCOUNTER → 2018-06-22 13:37 | Outpatient (CLI) | payer MEDICARE, OTHER, SELFPAY ==
[2017-12-28 13:50] VITALS: BMI 29.2
[2018-06-22 16:54] LABS: Absolute Lymphocyte Count 3.41 X10^3/ul (0.83-4.51); Absolute Neutrophil Count 7.5 X10^3/uL (2.0-7.7); Anion Gap 5 (5-15); BUN 15 mg/dL (7-18); BUN/Creat Ratio 16.2 RATIO (10-20); Basophil# 0.04 X10^3/uL; Basophil% 0.3 % (0-1); Calcium,Total 8.2 mg/dL (8.5-10.1); Chloride 104 mmol/L (98-107); Creatinine, Serum 0.93 mg/dL (0.55-1.02); EST Glomerular Filtration Rate 64 mL/min (>60); Eosinophil# 0.17 X10^3/uL; Eosinophils% 1.4 % (0-5); Est Glom Filt Rate - Afr Amer 77 mL/min (>60); Glucose 107 mg/dL (74-106); Hematocrit 45.1 % (37-47); Hemoglobin 14.6 g/dl (12.0-15.0); Lymphocyte # 3.41 X10^3/ul (4.0); Lymphocyte % 28.9 % (19-41); Mean Corp Hgb Conc 32.4 g/gl (32-36); Mean Corpuscular Hgb 29.1 pg (27.0-32.0); Mean Corpuscular Volume 89.8 fL (81-99); Mean Platelet Vol. 11.7 fl (6.2-12.0); Monocyte# 0.66 X10^3/uL; Monocyte% 5.6 % (0-10); Neutrophil % 63.5 % (47-70); Platelet Count 304 K/mm3 (150-450); Potassium 3.8 mmol/L (3.5-5.1); RBC Distribution Width CV 14.7 % (11.6-14.6); RBC Distribution Width SD 47.7 fl (35.1-43.9); Red Blood Count 5.02 M/mm3 (4.2-5.4); Sodium Level 136 mmol/L (136-145); White Blood Count 11.8 K/mm3 (4.4-11.0)
[2018-06-22 17:11] LABS: POSITIVE COUNT NO; POSITIVE DIFFERENTIAL NO; POSITIVE MORPHOLOGY NO
== END ==
PROVIDERS: Family Provider Family Medicine Geriatric Medicine; PCP Family Medicine Geriatric Medicine; Visit Provider Family Medicine Geriatric Medicine
DX: R11.0 Nausea (principal)
CPT/HCPCS: 36415; 80048; 85025

== ENCOUNTER → 2018-06-22 15:16 | Outpatient (CLI) | payer MEDICARE, OTHER, SELFPAY ==
[2017-12-28 13:50] VITALS: BMI 29.2
--- NOTE | 2018-06-22 15:19 | RAD_ITS ---
STUDY: X-RAY CHEST REASON FOR EXAM: Female, 73 years old. Nausea, coughing An generalized abdominal pain. TECHNIQUE: PA and lateral views of the chest. COMPARISON: January 05, 2018. FINDINGS: The lungs are well expanded. There is a density in the retrocardiac left lower lobe.. There is no demonstrated pleural abnormality. Sternal cerclage wires are present from a prior sternotomy. The heart is normal in size. Normal mediastinum and beverly. Normal visualized pulmonary arteries. There is atherosclerotic calcification of the aortic arch with tortuosity. Normal visualized thoracic spine. Normal visualized ribs, clavicles, and shoulders. There is no demonstrated abnormality of the visualized soft tissue structures of the upper abdomen. RAD/Chest PA and Lateral IMPRESSION: Left lower lobe infiltrate without other change from prior study. Electronically Signed: Lamont Roger DO at 16:16 EDT Tel [phone], Service support ,
--- NOTE | 2018-06-22 15:19 | CT_ITS ---
STUDY: CT BRAIN WITHOUT CONTRAST REASON FOR EXAM: Female, 73 years old. Delirium. RADIATION DOSAGE (If Supplied By Facility): CTDIvol = ( 60.81 ) mGy, DLP = ( 998.67 ) mGycm TECHNIQUE: Transaxial CT imaging of the brain was performed without administration of intravenous contrast material. Individualized dose optimization techniques were used for this CT. COMPARISON: Comparison is made with prior study dated April 23, 2017. FINDINGS: Normal soft tissue structures. Normal calvarium. There is mild cerebral atrophy with widening of the extra-axial spaces and ventricular dilatation. There are areas of decreased attenuation within the white matter tracts of the supratentorial brain, consistent with microvascular disease changes. Normal basal ganglia and thalami. Normal brainstem. Normal cerebellum. There is no intracranial hemorrhage. There are no findings of an acute ischemic infarction. Atherosclerotic calcification of the cavernous portions of the internal carotid arteries bilaterally. Opacification of the right maxillary sinus. CT/Brain/Head without Contrast IMPRESSION: Chronic involutional changes of the brain. Electronically Signed: Gonzales Dowell, at 16:01 EDT , Service support ,
--- NOTE | 2018-06-22 15:19 | RAD_ITS ---
STUDY: X-RAY - PELVIS AND BILATERAL HIPS REASON FOR EXAM: Female, 73 years old. Nausea. Coughing. Generalized abdominal pain radiating into the groin. TECHNIQUE: AP view of the pelvis.? 2 views of the right hip, and 2 views of the left hip were obtained. COMPARISON: Bilateral hips, January 05, 2018. FINDINGS: There is a non-specific bowel gas pattern. Normal visualized soft tissue structures. End seen are surgical clips in the right groin. There are mild degenerative changes of lumbosacral spine. Normal bilateral iliac wings, sacroiliac joints and visualized sacrum. Normal bilateral superior and inferior pubic rami. Normal pubic symphysis. Normal bilateral ischial tuberosities. Normal visualized right femoral head. Normal right acetabulum. There is mild articular joint space narrowing of the right hip. Normal visualized left femoral head. Normal left acetabulum. There is mild articular joint space narrowing of the left hip. RAD/Hips B/L min 2 views w/ Pelvis IMPRESSION: Mild degenerative changes of bilateral hips without interval change. Electronically Signed: Lamont Roger DO at 16:27 EDT Tel [phone], Service support ,
--- NOTE | 2018-06-22 15:43 | RAD_ITS ---
STUDY: X-RAY - ABDOMEN/PELVIS REASON FOR EXAM: Female, 73 years old. Nausea. Coughing generalized illness. Diffuse abdominal pain into the groin. TECHNIQUE: Two AP supine views of the abdomen and pelvis. COMPARISON: None. FINDINGS: Normal visualized lung bases. There is evidence of median sternotomy. There is an unremarkable bowel gas pattern. There is no demonstrated free abdominal air. The visualized liver, spleen and kidneys are grossly normal in size and morphology. Cholecystectomy clips are seen in the right upper quadrant. Normal soft tissue structures. There are diffuse degenerative changes of the visualized lumbar spine. RAD/Abdomen Single View IMPRESSION: No evidence of acute intra-abdominal process. Electronically Signed: Lamont Roger DO at 16:14 EDT Tel [phone], Service support ,
== END ==
PROVIDERS: Family Provider Family Medicine Geriatric Medicine; PCP Family Medicine Geriatric Medicine; Referring Provider Family Medicine Geriatric Medicine; Visit Provider Family Medicine Geriatric Medicine
DX: N39.0 Urinary tract infection, site not specified (principal); F05 Delirium due to known physiological condition; R11.0 Nausea
CPT/HCPCS: 36415; 70450; 71046; 73521; 74018; 80048; 85025; 87086; 87088

== ENCOUNTER 2018-06-27 04:51 | Inpatient (IN) | payer MEDICARE, OTHER, SELFPAY ==
[2017-12-28 13:50] VITALS: BMI 29.2
[2018-06-27] VITALS (16 sets, daily range): BP systolic 115–184; BP diastolic 47–72; PULSE 67–98; RESP 16–29; TEMP 36.9–37.3; O2SAT 90–99; BMI 31.8; BMI 31.4
--- NOTE | 2018-06-27 05:16 | EKG12_ITS ---
Test Reason : SOB Blood Pressure : / mmHG Vent. Rate : 087 BPM Atrial Rate : 087 BPM P-R Int : 148 ms QRS Dur : 080 ms QT Int : 396 ms P-R-T Axes : 026 051 088 degrees QTc Int : 476 ms Normal sinus rhythm Nonspecific ST and T wave abnormality Prolonged QT Abnormal ECG Confirmed by CONSUELO GOLD, EDDY ([id number]), photography editor DAVID CARMONA ([id number]) on 06/28/2018 3:48:15 PM Referred By: Cruz Roberts Confirmed By:EDDY CORDERO MD
--- NOTE | 2018-06-27 05:17 | RAD_ITS ---
HISTORY: Short of Breath/ - Chest pain. Diagnosed with pneumonia on thursday EXAM:XR Chest 2 Views COMPARISON: 06/22/2018 FINDINGS: Interval worsening with development of right lower lobe infiltrate compatible with pneumonia. Secondary partial obscuration of the right hemidiaphragm. Additional patchy left lower lobe infiltrate and this was also seen previously. Reticulonodular mild interstitial thickening within both upper lobes. The heart is upper normal in size. The pulmonary vascularity shows no overt congestion. Mild fissural thickening noted. Midline sternotomy sutures and retrosternal surgical clips related to previous CABG. Atherosclerotic thoracic aorta. No pneumothorax. RAD/Chest PA and Lateral IMPRESSION: 1. Bilateral lower lobe infiltrates, larger on the right, compatible with pneumonia. Infiltrates should be followed to radiographic resolution. 2. Previous CABG. at 0621 Reported and signed by: Ketan Mosley MD Electronically Signed: Ketan Mosley, at 6:20 EDT Tel , Service support ,
--- NOTE | 2018-06-27 05:22 | ED.VISSUMM ---
- ER Visit Summary Date of Service: 06/27/18 Chief Complaint: Cough and shortness of breath History of Present Illness: The patient is a 73 F who presents with cough and shortness of breath that has been getting worse over the past 3 days. Patient states she saw her primary care physician 3 days ago and she was diagnosed with pneumonia. Patient states she was started on antibiotics and prednisone at that time. Patient states that tonight her breathing became worse. Patient states she does not have any medication for her home nebulizer machine. Patient states she does not have an inhaler or spacer for inhaler. Patient admits to some left lower chest pain. Patient admits to nausea but denies any vomiting. Patient admits to subjective fevers. Physical Examination: Vital signs are stable except for an elevated blood pressure 184/68 and a mild tachypnea of 24. Pulse oximeter is 90% on room air. Oral mucosa is pink and moist. Neck is supple. Trachea is midline. No JVD noted. Heart was regular rate and rhythm. Lungs showed scattered rhonchi and wheezing. There is good respiratory effort noted. Abdomen is soft and nontender. Cranial nerves II through XII are intact. There are no focal motor or sensory deficits noted. Test Results: EKG showed normal sinus rhythm with a rate of 87. There are nonspecific ST-T wave changes noted in the lateral and inferior leads. There are no acute changes noted. This is unchanged compared to previous EKG dated 01/05/2018. PA and lateral chest x-ray was obtained. There are bilateral lower lobe infiltrates. Right lower lobe infiltrate is worse than previous result. CBC shows a leukocytosis of 15.8. Basic metabolic profile was essentially within normal limits. Troponin was indeterminate at 0.055. Emergency Department Course and Treatment: Patient was given a DuoNeb aerosol by EMS. Patient was maintained on oxygen. Patient was started on Levaquin. Patient was also given a dose of aspirin. Case was discussed with , hospitalist. He will admit the patient to PCU. Patient understood and was agreeable with the plan. All questions were answered. Disposition: Admit to hospital Impression: 1. Community-acquired pneumonia 2. Elevated troponin This note was generated with Casacandaation software. It may contain incorrect words, spelling, and punctuation that were not noted in review of the chart prior to signing ED Disposition - Plan for ED Patient: Disposition: Acute Care Hospital [facility] Diagnosis: Community acquired pneumonia, Elevated troponin Referrals: Ino Silva Chi, MD [Primary Care Provider] -
--- NOTE | 2018-06-27 05:27 | ED.DCSUM_ITS ---
- ER Visit Summary Date of Service: 06/27/18 Chief Complaint: Cough and shortness of breath History of Present Illness: The patient is a 73 F who presents with cough and shortness of breath that has been getting worse over the past 3 days. Patient states she saw her primary care physician 3 days ago and she was diagnosed with pneumonia. Patient states she was started on antibiotics and prednisone at that time. Patient states that tonight her breathing became worse. Patient states she does not have any medication for her home nebulizer machine. Patient states she does not have an inhaler or spacer for inhaler. Patient admits to some left lower chest pain. Patient admits to nausea but denies any vomiting. Patient admits to subjective fevers. Physical Examination: Vital signs are stable except for an elevated blood pressure 184/68 and a mild tachypnea of 24. Pulse oximeter is 90% on room air. Oral mucosa is pink and moist. Neck is supple. Trachea is midline. No JVD noted. Heart was regular rate and rhythm. Lungs showed scattered rhonchi and wheezing. There is good respiratory effort noted. Abdomen is soft and nontender. Cranial nerves II through XII are intact. There are no focal motor or sensory deficits noted. Test Results: EKG showed normal sinus rhythm with a rate of 87. There are nonspecific ST-T wave changes noted in the lateral and inferior leads. There are no acute changes noted. This is unchanged compared to previous EKG dated 01/05/2018. PA and lateral chest x-ray was obtained. There are bilateral lower lobe infiltrates. Right lower lobe infiltrate is worse than previous result. CBC shows a leukocytosis of 15.8. Basic metabolic profile was essentially within normal limits. Troponin was indeterminate at 0.055. Emergency Department Course and Treatment: Patient was given a DuoNeb aerosol by EMS. Patient was maintained on oxygen. Patient was started on Levaquin. Patient was also given a dose of aspirin. Case was discussed with , hospitalist. He will admit the patient to PCU. Patient understood and was agreeable with the plan. All questions were answered. Disposition: Admit to hospital Impression: 1. Community-acquired pneumonia 2. Elevated troponin This note was generated with FiveCub[employer] software. It may contain incorrect words, spelling, and punctuation that were not noted in review of the chart prior to signing ED Disposition - Plan for ED Patient: Disposition: Acute Care Hospital [facility] Diagnosis: Community acquired pneumonia, Elevated troponin Referrals: Ino Silva Chi, MD [Primary Care Provider] -
[2018-06-27 05:53] LABS: Absolute Neutrophil Count 10.3 X10^3/uL (2.0-7.7); Basophil# 0.02 X10^3/uL; Basophil% 0.1 % (0-1); Eosinophil# 0.19 X10^3/uL; Eosinophils% 1.2 % (0-5); Hematocrit 37.8 % (37-47); Hemoglobin 12.4 g/dl (12.0-15.0); Lymphocyte % 26.6 % (19-41); Mean Corp Hgb Conc 32.8 g/gl (32-36); Mean Corpuscular Hgb 29.6 pg (27.0-32.0); Mean Corpuscular Volume 90.2 fL (81-99); Mean Platelet Vol. 11.3 fl (6.2-12.0); Monocyte# 1.05 X10^3/uL; Monocyte% 6.6 % (0-10); Neutrophil # 10.28 X10^3/uL (2.7-7.7); Neutrophil % 65.1 % (47-70); Platelet Count 254 K/mm3 (150-450); RBC Distribution Width CV 14.1 % (11.6-14.6); RBC Distribution Width SD 45.8 fl (35.1-43.9); Red Blood Count 4.19 M/mm3 (4.2-5.4); White Blood Count 15.8 K/mm3 (4.4-11.0)
[2018-06-27 06:00] LABS: POSITIVE COUNT NO; POSITIVE DIFFERENTIAL NO; POSITIVE MORPHOLOGY NO
[2018-06-27 06:12] LABS: Anion Gap 5 (5-15); BUN 12 mg/dL (7-18); BUN/Creat Ratio 14.4 RATIO (10-20); Calcium,Total 8.2 mg/dL (8.5-10.1); Chloride 106 mmol/L (98-107); Creatinine, Serum 0.83 mg/dL (0.55-1.02); EST Glomerular Filtration Rate 72 mL/min (>60); Est Glom Filt Rate - Afr Amer 87 mL/min (>60); Estimated Creatinine Clearance 46.91 ml/min; Glucose 96 mg/dL (74-106); Potassium 3.4 mmol/L (3.5-5.1); Sodium Level 143 mmol/L (136-145)
--- NOTE | 2018-06-27 06:49 | ED.RN ---
PER 'S ORDERS, PT TAKING HOME MEDS.
[2018-06-27] MEDS: levoFLOXacin IV 750 MG/150 ML BAG 100 MG IV (06:51)
--- NOTE | 2018-06-27 06:59 | NURSING ---
DR UMAÑA FOR DR CERNA
--- NOTE | 2018-06-27 07:00 | NURSING ---
PCU CAP, ELEVATED TROP KOTSONIS
--- NOTE | 2018-06-27 08:09 | PCM.HP.STD ---
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 Comment: Rcn-UXQ-MBR-Mid RCA w/ 2.0 x 10 mm Angiosculpt and 2.5 x 38 mm Promus Synergy Stent, BRIANA-Prox RCA 2.5 x 12 mm Prmomus Synergy Stent 12/28/17 NKR-QEN-Tchyx Cx w/ 2.5 x 24mm Promus 03/12/2011, URJ-Krkss-MCY;PCI-Prox LAD; CABG x 3 SY-LAD, SVG-OM and SVG-RCA (4) History of coronary artery stent placement Status: Resolved Comment: Otq-ATY-SQT-Mid RCA w/ 2.0 x 10 mm Angiosculpt and 2.5 x 38 mm Promus Synergy Stent, BRIANA-Prox RCA 2.5 x 12 mm Prmomus Synergy Stent 12/28/17 RMB-CWS-Aqioi Cx w/ 2.5 x 24mm Promus 03/12/2011, PMX-Kpqaw-CLK;PCI-Prox LAD; (5) Nicotine dependence Status: Chronic (6) Hyperlipidemia Status: Chronic (7) Essential (primary) hypertension Status: Chronic (8) History of coronary artery bypass graft x 3 Status: Resolved Comment: CABG x 3 SY-LAD, SVG-OM and SVG-RCA History of Present Illness Date of Admission: 06/27/18 Chief Complaint: Chest pain shortness of breath The patient is a 73 year old F with a PMH as below who presents from home with chest pain shortness of breath. She states that since Thursday of last week she was diagnosed with pneumonia and had been going into a doctor's office every day for IV antibiotics and was fine transition to oral antibiotics prior to the weekend. She states that she is has been getting worse over the weekend with her shortness of breath, and her chest pain. She decided to present to the hospital for further work-up. In the ER she is found to have a slightly elevated troponin which is not uncommon given her cardiac history and her current pneumonia which appears to be bilateral. Initial troponin in the ER was 0.055, with a nonischemic EKG. She was given a dose of IV Levaquin and duo nebs in the ER. Past Medical History Past Medical History (Chronic Problems): Chronic Problems (Last Reviewed 01/29/18 @ 12:36 by Gordy Pedroza MD) Diastolic dysfunction (Chronic) Atherosclerosis of coronary artery bypass graft without angina pectoris (Chronic) Hcb-GNB-JCK-Mid RCA w/ 2.0 x 10 mm Angiosculpt and 2.5 x 38 mm Promus Synergy Stent, BRIANA-Prox RCA 2.5 x 12 mm Prmomus Synergy Stent 12/28/17 NVI-ZTQ-Qmmjc Cx w/ 2.5 x 24mm Promus 03/12/2011, VUF-Cingy-QCH;PCI-Prox LAD; CABG x 3 SY-LAD, SVG-OM and SVG-RCA Non-rheumatic tricuspid valve insufficiency (Chronic) Secondary pulmonary arterial hypertension (Chronic) Nicotine dependence (Chronic) Hyperlipidemia (Chronic) Atherosclerosis of coronary artery of [place] heart with angina pectoris (Chronic) Jng-PHL-XRI-Mid RCA w/ 2.0 x 10 mm Angiosculpt and 2.5 x 38 mm Promus Synergy Stent, BRIANA-Prox RCA 2.5 x 12 mm Prmomus Synergy Stent 12/28/17 OYH-BRB-Bhdzv Cx w/ 2.5 x 24mm Promus 03/12/2011, RKQ-Qvvvh-NXH;PCI-Prox LAD; CABG x 3 SY-LAD, SVG-OM and SVG-RCA Essential (primary) hypertension (Chronic) TIA (transient ischemic attack) (Chronic) Medical History: Medical History (Last Reviewed 01/29/18 @ 12:36 by Gordy Pedroza MD) Non-rheumatic tricuspid valve insufficiency (Chronic) I36.1 Secondary pulmonary arterial hypertension (Chronic) I27.21 Nicotine dependence (Chronic) F17.200 Hyperlipidemia (Chronic) E78.5 Atherosclerosis of coronary artery of [place] heart with angina pectoris (Chronic) I25.119 Hya-ORL-OHO-Mid RCA w/ 2.0 x 10 mm Angiosculpt and 2.5 x 38 mm Promus Synergy Stent, BRIANA-Prox RCA 2.5 x 12 mm Prmomus Synergy Stent 12/28/17 BAJ-EMJ-Qfinz Cx w/ 2.5 x 24mm Promus 03/12/2011, FRW-Ruxsr-LAL;PCI-Prox LAD; CABG x 3 SY-LAD, SVG-OM and SVG-RCA Essential (primary) hypertension (Chronic) I10 TIA (transient ischemic attack) (Chronic) Anxiety and depression F41.9, F32.9 Back pain M54.9 Benzodiazepine dependence F13.20 COPD (chronic obstructive pulmonary disease) J44.9 Hypothyroidism E03.9 Obstructive sleep apnea G47.33 Allergies morphine Allergy (Verified 05/05/18 14:36) PT UNSURE Penicillins Allergy (Verified 05/05/18 14:36) Hives tramadol HCl [From Ultram] Allergy (Verified 05/05/18 14:36) PT UNSURE bupropion [From Wellbutrin] Adverse Reaction (Verified 05/05/18 14:36) hallucinations Home Medications: Ambulatory Orders Medication Instructions Recorded Aspirin E.C. [Ecotrin] 81 mg PO DAILY@0800 09/06/17 Levothyroxine [Synthroid] 75 mcg PO DAILY 09/06/17 citalopram 40 mg tablet 40 mg PO DAILY 12/18/17 clopidogrel 75 mg tablet 75 mg PO QODAY 12/18/17 esomeprazole magnesium 20 mg 40 mg PO DAILY 12/18/17 capsule,delayed release lisinopril 40 mg tablet 40 mg PO DAILY tab 12/18/17 Atenolol [Tenormin (beta estefania)] 25 mg PO DAILY 01/05/18 Atorvastatin Calcium 40 mg PO DAILY 01/05/18 No122/Iron/Folic Acid 1 tab PO DAILY 01/05/18 [ Multi Tablet] Psyllium Husk [Metamucil] 5 ml PO DAILY 01/05/18 Ondansetron [Zofran Odt] 4 mg PO DAILY 01/06/18 lorazepam 2 mg tablet 1 mg PO TID tab 01/29/18 Azithromycin [Zithromax Z-Jeb] 250 mg PO UD 06/27/18 Cefdinir 300 mg PO BID 06/27/18 Citalopram [Celexa] 20 mg PO LUNCH 06/27/18 Codeine Phosphate/Guaifenesin 10 ml PO 4X/DAY PRN PRN 06/27/18 [Virtussin AC Liquid] Prednisone 5 mg PO UD 06/27/18 Surgical History: Surgical History (Last Reviewed 01/29/18 @ 12:36 by Gordy Pedroza MD) History of coronary artery stent placement (Resolved) Onset Date: 12/28/17 Z95.5 Ccl-WMZ-VLW-Mid RCA w/ 2.0 x 10 mm Angiosculpt and 2.5 x 38 mm Promus Synergy Stent, BRIANA-Prox RCA 2.5 x 12 mm Prmomus Synergy Stent 12/28/17 BAZ-UJL-Jiqlk Cx w/ 2.5 x 24mm Promus 03/12/2011, DEL-Kayun-PQI;PCI-Prox LAD; History of coronary artery bypass graft x 3 (Resolved) Z95.1 CABG x 3 SY-LAD, SVG-OM and SVG-RCA History of appendectomy Z90.49 History of left heart catheterization Onset Date: 12/28/17 Z98.890 SY graft to the Mid LAD is patent Saphenous Vein graft to the 1st OM is totally occluded Saphenous Vein graft to the RCA is totally occluded Hx of cholecystectomy Z90.49 Surgical History: angioplasty - A total of 5 stents, coronary bypass surgery - 3 vessel bypass surgery, - - Tubal ligation; and partial oopherectomy. Smoking Status: Current every day smoker - *Family History Paternal History Items: Heart Disease - Father of heart attack at age 64. Maternal History Items: Cancer - Mother of cancer at age 72. Review of Systems Constitutional: Denies: Chills, Fever, Weight Change HEENT: Denies: Head Aches, Sinus Congestion, Sinus Drainage Cardiovascular: Reports: Chest Pain. Denies: Palpitations Respiratory: Reports: Cough, Shortness of Breath. Denies: Shortness of breath at rest, Sputum production Gastrointestinal: Denies: Abdominal Pain, Nausea, Vomiting Genitourinary: Denies: Dysuria Musculoskeletal: Denies: Joint Pain, Joint Tenderness Skin: Denies: Rash, Wounds Neurological: Denies: Numbness, Tingling, Focal weakness Psychiatric: Denies: Anxiety, Depression Hematologic/ Lymphatic: Denies: Easy Bruising, Easy Bleeding VTE Information - Inpt Only VTE Present on Admission: No Patient Problems: Active and Suspected Problems (Last Reviewed 01/29/18 @ 12:36 by Gordy Pedroza MD) Community acquired pneumonia (Acute) Elevated troponin (Acute) - Physical Exam General: Alert, Oriented x3, Cooperative, No apparent distress HEENT: Atraumatic, PERRLA, EOMI, Normocephalic Oral: Dry Mucosa Neck: Supple, No JVD Lungs: No rhonchi, No rales, Diminished - In the right base, Wheezes, - - poor air movement Cardiovascular: Regular rate, Regular Rhythm, Normal S1, Normal S2, No murmurs Abdomen: Soft, Non Tender, Non-Distended, No Hepato-splenomegaly Skin: No rashes, No breakdown Neurological: Neuro grossly intact, Sensory exam intact to light touch and pain Psych/Mental Status: Normal Affect, Appropriate Vital Signs Temp Pulse Resp BP Pulse Ox 99.0 F 86 26 H 161/72 H 92 06/27/18 07:01 06/27/18 07:01 06/27/18 07:01 06/27/18 07:01 06/27/18 07:01 Oxygen Flow Rate (L/min) 2 Oxygen Delivery Method Nasal Cannula Weight: 168 lb 13.985 oz Body Mass Index (BMI) 31.8 Finger Stick Blood Glucose 145 Laboratory Tests Past 24 Hrs 06/27/18 06/27/18 05:20 05:20 WBC 15.8 H RBC 4.19 L Hgb 12.4 Hct 37.8 MCV 90.2 MCH 29.6 MCHC 32.8 RDW 14.1 RDW Differential 45.8 H Plt Count 254 MPV 11.3 Immature Gran % (Auto) 0.400 Neut % (Auto) 65.1 Lymph % (Auto) 26.6 [place] % (Auto) 6.6 Eos % (Auto) 1.2 Baso % (Auto) 0.1 Absolute Neuts (auto) 10.3 H Absolute Lymphs (auto) 4.20 Total Counted Not Reportable Sodium 143 Potassium 3.4 L Chloride 106 Carbon Dioxide 32.0 Anion Gap 5 BUN 12 Creatinine 0.83 Estim Creat Clear Calc 46.91 Est GFR (MDRD) Af Amer 87 Est GFR (MDRD) Non-Af 72 BUN/Creatinine Ratio 14.4 Glucose 96 Calcium 8.2 L Troponin I 0.055 H Assessment/Plan All Active Problems (Last Reviewed 01/29/18 @ 12:36 by Gordy Pedroza MD) Community acquired pneumonia (Acute) Elevated troponin (Acute) History of coronary artery stent placement (Resolved 12/28/17) History of coronary artery bypass graft x 3 (Resolved) Chest pain (Resolved) Dyspnea (Resolved) 1. Acute respiratory distress secondary to bilateral community-acquired pneumonia/COPD exacerbation -It appears that she has failed outpatient therapy -We will admit for IV antibiotics with Levaquin daily and will obtain strep and Legionella urine antigens sputum culture -We will provide duo nebs and Solu-Medrol for her COPD exacerbation -She is not on oxygen at home and is only on 2 L here, will continue -We will monitor her leukocytosis 2. CAD status post CABG and multiple stents/HTN/HLD -Her current troponin is 0.055, will obtain repeats -Given her cardiac history and her current acute illness with her respiratory distress and her pneumonia, her bump in troponin is likely demand ischemia -We will continue with her antibiotic therapy and her Solu-Medrol and duo nebs and if her chest pain resolves with rest of the resolution of her pulmonary symptoms, will probably not need any further work-up. -We will continue with her home lisinopril, Lipitor, atenolol, and aspirin/Plavix 3. Hypothyroidism -Stable -Continue with Synthroid 4. GERD -Stable -Continue with PPI 5. Depression/anxiety -Stable -Continue with her home Ativan and Celexa DVT: Lovenox Code Visit Inpatient E&M: 80539 Init Hosp L3
--- NOTE | 2018-06-27 08:09 | EKG12_ITS ---
Test Reason : ADMISSION Blood Pressure : / mmHG Vent. Rate : 074 BPM Atrial Rate : 074 BPM P-R Int : 156 ms QRS Dur : 072 ms QT Int : 442 ms P-R-T Axes : 011 054 098 degrees QTc Int : 490 ms Normal sinus rhythm Nonspecific ST and T wave abnormality Abnormal ECG When compared with ECG of 27-JUN-2018 05:24, MANUAL COMPARISON REQUIRED, DATA IS UNCONFIRMED Confirmed by CONSUELO GOLD, EDDY ([id number]), department editor WALLY LOAIZA ([id number]) on 06/29/2018 11:18:25 AM Referred By: Cruz Roberts Confirmed By:EDDY CORDERO MD
--- NOTE | 2018-06-27 08:13 | HP.PCM_ITS ---
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 Comment: Rcx-OAE-ILA-Mid RCA w/ 2.0 x 10 mm Angiosculpt and 2.5 x 38 mm Promus Synergy Stent, BRIANA-Prox RCA 2.5 x 12 mm Prmomus Synergy Stent 12/28/17 JTF-TMQ-Zsrcq Cx w/ 2.5 x 24mm Promus 03/12/2011, TEB-Cwxtp-NJG;PCI-Prox LAD; CABG x 3 SY-LAD, SVG-OM and SVG-RCA (4) History of coronary artery stent placement Status: Resolved Comment: Wge-ENJ-VBB-Mid RCA w/ 2.0 x 10 mm Angiosculpt and 2.5 x 38 mm Promus Synergy Stent, BRIANA-Prox RCA 2.5 x 12 mm Prmomus Synergy Stent 12/28/17 DTE-EQU-Rzejl Cx w/ 2.5 x 24mm Promus 03/12/2011, BNP-Frirg-OKC;PCI-Prox LAD; (5) Nicotine dependence Status: Chronic (6) Hyperlipidemia Status: Chronic (7) Essential (primary) hypertension Status: Chronic (8) History of coronary artery bypass graft x 3 Status: Resolved Comment: CABG x 3 SY-LAD, SVG-OM and SVG-RCA History of Present Illness Date of Admission: 06/27/18 Chief Complaint: Chest pain shortness of breath The patient is a 73 year old F with a PMH as below who presents from home with chest pain shortness of breath. She states that since Thursday of last week she was diagnosed with pneumonia and had been going into a doctor's office every day for IV antibiotics and was fine transition to oral antibiotics prior to the weekend. She states that she is has been getting worse over the weekend with her shortness of breath, and her chest pain. She decided to present to the hospital for further work-up. In the ER she is found to have a slightly elevated troponin which is not uncommon given her cardiac history and her current pneumonia which appears to be bilateral. Initial troponin in the ER was 0.055, with a nonischemic EKG. She was given a dose of IV Levaquin and duo nebs in the ER. Past Medical History Past Medical History (Chronic Problems): Chronic Problems (Last Reviewed 01/29/18 @ 12:36 by Gordy Pedroza MD) Diastolic dysfunction (Chronic) Atherosclerosis of coronary artery bypass graft without angina pectoris (Chronic) Iux-MWY-CFG-Mid RCA w/ 2.0 x 10 mm Angiosculpt and 2.5 x 38 mm Promus Synergy Stent, BRIANA-Prox RCA 2.5 x 12 mm Prmomus Synergy Stent 12/28/17 GII-WCT-Bqlkv Cx w/ 2.5 x 24mm Promus 03/12/2011, BTJ-Xzqyt-FNK;PCI-Prox LAD; CABG x 3 SY-LAD, SVG-OM and SVG-RCA Non-rheumatic tricuspid valve insufficiency (Chronic) Secondary pulmonary arterial hypertension (Chronic) Nicotine dependence (Chronic) Hyperlipidemia (Chronic) Atherosclerosis of coronary artery of [place] heart with angina pectoris (Chronic) Idu-JFT-FWJ-Mid RCA w/ 2.0 x 10 mm Angiosculpt and 2.5 x 38 mm Promus Synergy Stent, BRIANA-Prox RCA 2.5 x 12 mm Prmomus Synergy Stent 12/28/17 YOC-YYD-Kdgvb Cx w/ 2.5 x 24mm Promus 03/12/2011, ZIQ-Cmwwk-TSB;PCI-Prox LAD; CABG x 3 SY-LAD, SVG-OM and SVG-RCA Essential (primary) hypertension (Chronic) TIA (transient ischemic attack) (Chronic) Medical History: Medical History (Last Reviewed 01/29/18 @ 12:36 by Gordy Pedroza MD) Non-rheumatic tricuspid valve insufficiency (Chronic) I36.1 Secondary pulmonary arterial hypertension (Chronic) I27.21 Nicotine dependence (Chronic) F17.200 Hyperlipidemia (Chronic) E78.5 Atherosclerosis of coronary artery of [place] heart with angina pectoris (Chronic) I25.119 Ahu-NQN-WQV-Mid RCA w/ 2.0 x 10 mm Angiosculpt and 2.5 x 38 mm Promus Synergy Stent, BRIANA-Prox RCA 2.5 x 12 mm Prmomus Synergy Stent 12/28/17 TYH-FEK-Dhjbi Cx w/ 2.5 x 24mm Promus 03/12/2011, GFM-Vkykd-CMQ;PCI-Prox LAD; CABG x 3 SY-LAD, SVG-OM and SVG-RCA Essential (primary) hypertension (Chronic) I10 TIA (transient ischemic attack) (Chronic) Anxiety and depression F41.9, F32.9 Back pain M54.9 Benzodiazepine dependence F13.20 COPD (chronic obstructive pulmonary disease) J44.9 Hypothyroidism E03.9 Obstructive sleep apnea G47.33 Allergies morphine Allergy (Verified 05/05/18 14:36) PT UNSURE Penicillins Allergy (Verified 05/05/18 14:36) Hives tramadol HCl [From Ultram] Allergy (Verified 05/05/18 14:36) PT UNSURE bupropion [From Wellbutrin] Adverse Reaction (Verified 05/05/18 14:36) hallucinations Home Medications: Ambulatory Orders Medication Instructions Recorded Aspirin E.C. [Ecotrin] 81 mg PO DAILY@0800 09/06/17 Levothyroxine [Synthroid] 75 mcg PO DAILY 09/06/17 citalopram 40 mg tablet 40 mg PO DAILY 12/18/17 clopidogrel 75 mg tablet 75 mg PO QODAY 12/18/17 esomeprazole magnesium 20 mg 40 mg PO DAILY 12/18/17 capsule,delayed release lisinopril 40 mg tablet 40 mg PO DAILY tab 12/18/17 Atenolol [Tenormin (beta estefania)] 25 mg PO DAILY 01/05/18 Atorvastatin Calcium 40 mg PO DAILY 01/05/18 No122/Iron/Folic Acid 1 tab PO DAILY 01/05/18 [ Multi Tablet] Psyllium Husk [Metamucil] 5 ml PO DAILY 01/05/18 Ondansetron [Zofran Odt] 4 mg PO DAILY 01/06/18 lorazepam 2 mg tablet 1 mg PO TID tab 01/29/18 Azithromycin [Zithromax Z-Jeb] 250 mg PO UD 06/27/18 Cefdinir 300 mg PO BID 06/27/18 Citalopram [Celexa] 20 mg PO LUNCH 06/27/18 Codeine Phosphate/Guaifenesin 10 ml PO 4X/DAY PRN PRN 06/27/18 [Virtussin AC Liquid] Prednisone 5 mg PO UD 06/27/18 Surgical History: Surgical History (Last Reviewed 01/29/18 @ 12:36 by Gordy Pedroza MD) History of coronary artery stent placement (Resolved) Onset Date: 12/28/17 Z95.5 Qrp-DYD-FHI-Mid RCA w/ 2.0 x 10 mm Angiosculpt and 2.5 x 38 mm Promus Synergy Stent, BRIANA-Prox RCA 2.5 x 12 mm Prmomus Synergy Stent 12/28/17 JIW-OTE-Rztrq Cx w/ 2.5 x 24mm Promus 03/12/2011, YHY-Ubdhl-MDE;PCI-Prox LAD; History of coronary artery bypass graft x 3 (Resolved) Z95.1 CABG x 3 SY-LAD, SVG-OM and SVG-RCA History of appendectomy Z90.49 History of left heart catheterization Onset Date: 12/28/17 Z98.890 SY graft to the Mid LAD is patent Saphenous Vein graft to the 1st OM is totally occluded Saphenous Vein graft to the RCA is totally occluded Hx of cholecystectomy Z90.49 Surgical History: angioplasty - A total of 5 stents, coronary bypass surgery - 3 vessel bypass surgery, - - Tubal ligation; and partial oopherectomy. Smoking Status: Current every day smoker - *Family History Paternal History Items: Heart Disease - Father of heart attack at age 64. Maternal History Items: Cancer - Mother of cancer at age 72. Review of Systems Constitutional: Denies: Chills, Fever, Weight Change HEENT: Denies: Head Aches, Sinus Congestion, Sinus Drainage Cardiovascular: Reports: Chest Pain. Denies: Palpitations Respiratory: Reports: Cough, Shortness of Breath. Denies: Shortness of breath at rest, Sputum production Gastrointestinal: Denies: Abdominal Pain, Nausea, Vomiting Genitourinary: Denies: Dysuria Musculoskeletal: Denies: Joint Pain, Joint Tenderness Skin: Denies: Rash, Wounds Neurological: Denies: Numbness, Tingling, Focal weakness Psychiatric: Denies: Anxiety, Depression Hematologic/ Lymphatic: Denies: Easy Bruising, Easy Bleeding VTE Information - Inpt Only VTE Present on Admission: No Patient Problems: Active and Suspected Problems (Last Reviewed 01/29/18 @ 12:36 by Gordy Pedroza MD) Community acquired pneumonia (Acute) Elevated troponin (Acute) - Physical Exam General: Alert, Oriented x3, Cooperative, No apparent distress HEENT: Atraumatic, PERRLA, EOMI, Normocephalic Oral: Dry Mucosa Neck: Supple, No JVD Lungs: No rhonchi, No rales, Diminished - In the right base, Wheezes, - - poor air movement Cardiovascular: Regular rate, Regular Rhythm, Normal S1, Normal S2, No murmurs Abdomen: Soft, Non Tender, Non-Distended, No Hepato-splenomegaly Skin: No rashes, No breakdown Neurological: Neuro grossly intact, Sensory exam intact to light touch and pain Psych/Mental Status: Normal Affect, Appropriate Vital Signs Temp Pulse Resp BP Pulse Ox 99.0 F 86 26 H 161/72 H 92 06/27/18 07:01 06/27/18 07:01 06/27/18 07:01 06/27/18 07:01 06/27/18 07:01 Oxygen Flow Rate (L/min) 2 Oxygen Delivery Method Nasal Cannula Weight: 168 lb 13.985 oz Body Mass Index (BMI) 31.8 Finger Stick Blood Glucose 145 Laboratory Tests Past 24 Hrs 06/27/18 06/27/18 05:20 05:20 WBC 15.8 H RBC 4.19 L Hgb 12.4 Hct 37.8 MCV 90.2 MCH 29.6 MCHC 32.8 RDW 14.1 RDW Differential 45.8 H Plt Count 254 MPV 11.3 Immature Gran % (Auto) 0.400 Neut % (Auto) 65.1 Lymph % (Auto) 26.6 [place] % (Auto) 6.6 Eos % (Auto) 1.2 Baso % (Auto) 0.1 Absolute Neuts (auto) 10.3 H Absolute Lymphs (auto) 4.20 Total Counted Not Reportable Sodium 143 Potassium 3.4 L Chloride 106 Carbon Dioxide 32.0 Anion Gap 5 BUN 12 Creatinine 0.83 Estim Creat Clear Calc 46.91 Est GFR (MDRD) Af Amer 87 Est GFR (MDRD) Non-Af 72 BUN/Creatinine Ratio 14.4 Glucose 96 Calcium 8.2 L Troponin I 0.055 H Assessment/Plan All Active Problems (Last Reviewed 01/29/18 @ 12:36 by Gordy Pedroza MD) Community acquired pneumonia (Acute) Elevated troponin (Acute) History of coronary artery stent placement (Resolved 12/28/17) History of coronary artery bypass graft x 3 (Resolved) Chest pain (Resolved) Dyspnea (Resolved) 1. Acute respiratory distress secondary to bilateral community-acquired pneumonia/COPD exacerbation -It appears that she has failed outpatient therapy -We will admit for IV antibiotics with Levaquin daily and will obtain strep and Legionella urine antigens sputum culture -We will provide duo nebs and Solu-Medrol for her COPD exacerbation -She is not on oxygen at home and is only on 2 L here, will continue -We will monitor her leukocytosis 2. CAD status post CABG and multiple stents/HTN/HLD -Her current troponin is 0.055, will obtain repeats -Given her cardiac history and her current acute illness with her respiratory distress and her pneumonia, her bump in troponin is likely demand ischemia -We will continue with her antibiotic therapy and her Solu-Medrol and duo nebs and if her chest pain resolves with rest of the resolution of her pulmonary symptoms, will probably not need any further work-up. -We will continue with her home lisinopril, Lipitor, atenolol, and aspirin/Plavix 3. Hypothyroidism -Stable -Continue with Synthroid 4. GERD -Stable -Continue with PPI 5. Depression/anxiety -Stable -Continue with her home Ativan and Celexa DVT: Lovenox Code Visit Inpatient E&M: 62622 Init Hosp L3
[2018-06-27] MEDS: 0.9% Normal Saline 1,000 ML 100 ML IV ×2 (11:10→21:15)
[2018-06-27] MEDS: Enoxaparin 40 MG/0.4 ML Syringe SC (11:12)
[2018-06-27] MEDS: Pantoprazole Sodium 40 MG Tablet PO (11:13)
[2018-06-27] MEDS: Ipratropium/Albuterol Sulfate 3 ML AMPUL.NEB INHALATION ×3 (11:30→19:46)
[2018-06-27] MEDS: LORazepam 1 MG Tablet PO ×2 (13:41→21:09)
[2018-06-27] MEDS: Citalopram 20 MG Tablet PO (13:42)
[2018-06-27] MEDS: Atorvastatin Calcium 40 MG Tablet PO (21:09)
[2018-06-28] VITALS (16 sets, daily range): BP systolic 137–188; BP diastolic 76–98; PULSE 70–79; RESP 14–20; TEMP 36.6–36.8; O2SAT 93–96
[2018-06-28] MEDS: Levothyroxine 75 MCG Tablet PO (05:06)
[2018-06-28] MEDS: LORazepam 1 MG Tablet PO ×4 (05:06→20:59)
[2018-06-28] MEDS: 0.9% NaCl Peripheral Flush Adult/Peds IV (05:13)
[2018-06-28 05:30] LABS: Absolute Lymphocyte Count 1.32 X10^3/ul (0.83-4.51); Basophil# 0.01 X10^3/uL; Basophil% 0.1 % (0-1); Hematocrit 35.7 % (37-47); Hemoglobin 11.6 g/dl (12.0-15.0); Lymphocyte # 1.32 X10^3/ul (4.0); Lymphocyte % 10.2 % (19-41); Mean Corp Hgb Conc 32.5 g/gl (32-36); Mean Corpuscular Hgb 29.6 pg (27.0-32.0); Mean Corpuscular Volume 91.1 fL (81-99); Mean Platelet Vol. 11.2 fl (6.2-12.0); Monocyte# 0.63 X10^3/uL; Monocyte% 4.8 % (0-10); Neutrophil # 10.99 X10^3/uL (2.7-7.7); Neutrophil % 84.6 % (47-70); Platelet Count 262 K/mm3 (150-450); RBC Distribution Width CV 14.2 % (11.6-14.6); RBC Distribution Width SD 46.3 fl (35.1-43.9); Red Blood Count 3.92 M/mm3 (4.2-5.4)
[2018-06-28 05:32] LABS: POSITIVE COUNT NO; POSITIVE DIFFERENTIAL NO; POSITIVE MORPHOLOGY NO
[2018-06-28 05:40] LABS: Anion Gap 7 (5-15); BUN 15 mg/dL (7-18); BUN/Creat Ratio 20.3 RATIO (10-20); Calcium,Total 8.2 mg/dL (8.5-10.1); Chloride 108 mmol/L (98-107); Creatinine, Serum 0.74 mg/dL (0.55-1.02); EST Glomerular Filtration Rate 82 mL/min (>60); Est Glom Filt Rate - Afr Amer 100 mL/min (>60); Estimated Creatinine Clearance 38.94 ml/min; Glucose 163 mg/dL (74-106); Potassium 3.8 mmol/L (3.5-5.1); Sodium Level 144 mmol/L (136-145)
[2018-06-28] MEDS: Ipratropium/Albuterol Sulfate 3 ML AMPUL.NEB INHALATION ×2 (07:11→20:27)
[2018-06-28] MEDS: Atenolol 25 MG Tablet PO (08:04)
[2018-06-28] MEDS: Pantoprazole Sodium 40 MG Tablet PO (08:04)
[2018-06-28] MEDS: Clopidogrel Bisulfate 75 MG Tablet PO (08:04)
[2018-06-28] MEDS: Lisinopril 40 MG Tablet PO (08:05)
[2018-06-28] MEDS: Enoxaparin 40 MG/0.4 ML Syringe SC (08:05)
[2018-06-28] MEDS: Aspirin E.C. 81 MG Tablet PO (08:05)
[2018-06-28] MEDS: 0.9% Normal Saline 1,000 ML 100 ML IV ×2 (08:05→21:00)
[2018-06-28] MEDS: Citalopram 40 MG TABLET PO (08:05)
[2018-06-28] MEDS: levoFLOXacin IV 750 MG/150 ML BAG 100 MG IV (09:00)
--- NOTE | 2018-06-28 10:17 | PCM.PN.HOSP ---
Patient Problems: Active and Suspected Problems (Last Reviewed 01/29/18 @ 12:36 by Gordy Pedroza MD) Community acquired pneumonia (Acute) Elevated troponin (Acute) Subjective: Patient seen and examined. She says she feels better than when she came in yesterday. Her breathing is better and she still coughing but is productive of clear sputum. She denies any chest pain or palpitations or dizziness, diarrhea vomiting. Review of systems otherwise negative. Labs and vitals reviewed. Vitals/I&O's: Vital Signs Temp Pulse Resp BP Pulse Ox 97.8 F 78 16 160/76 H 93 06/28/18 09:05 06/28/18 09:05 06/28/18 09:05 06/28/18 09:45 06/28/18 10:16 Oxygen Flow Rate (L/min) 2 Oxygen Delivery Method Room Air Weight: 166 lb 3.198 oz Body Mass Index (BMI) 31.4 Finger Stick Blood Glucose 145 Intake and Output for Last 24 Hours 06/26/18 06/27/18 06/28/18 23:59 23:59 23:59 Intake Total 1525 / 1525 726 / 726 Balance 1525 / 1525 726 / 726 General: Alert, Oriented x3, Cooperative, No apparent distress HEENT: Atraumatic, PERRLA, EOMI, Normocephalic Oral: Moist Mucosa Neck: Supple, No JVD, Negative Carotid Bruits Lungs: - - mildly decreased breath sounds bibasally, no wheezes or crackles. on 3L of oxygen Cardiovascular: Regular rate, Regular Rhythm, Normal S1, Normal S2, No murmurs Abdomen: Bowel Sounds Present, Soft, Non Tender, Non-Distended, No Hepato-splenomegaly Extremities: No clubbing, No cyanosis, No edema, Capillary Refill Less than 3 Seconds Skin: No rashes, No breakdown Musculoskeletal: No Tenderness to Palpation of Joints or Extremities Lymphatic: No Cervical, Supraclavicular, or Inguinal Adenopathy Neurological: Cranial nerves II-XII grossly intact, Neuro grossly intact, Motor Exam 5/5 strength throughout Psych/Mental Status: Normal Affect, Appropriate, Alert and oriented to time, place, person, mood and affect Microbiology Past 72 Hours 06/27/18 13:03 Urine, Clean Catch Streptococcus pneumoniae Antigen (M - Final 06/27/18 13:03 Urine, Clean Catch Legionella Antigen - Final Laboratory Results 06/27/18 11:14: Troponin I 0.052 H 06/28/18 05:05: WBC 13.0 H, RBC 3.92 L, Hgb 11.6 L, Hct 35.7 L, MCV 91.1, MCH 29.6, MCHC 32.5, RDW 14.2, RDW Differential 46.3 H, Plt Count 262, MPV 11.2, Immature Gran % (Auto) 0.300, Neut % (Auto) 84.6 H, Lymph % (Auto) 10.2 L, Lipscomb % (Auto) 4.8, Eos % (Auto) 0.0, Baso % (Auto) 0.1, Absolute Neuts (auto) 11.0 H, Absolute Lymphs (auto) 1.32, Total Counted Not Reportable 06/28/18 05:05: Sodium 144, Potassium 3.8, Chloride 108 H, Carbon Dioxide 29.0, Anion Gap 7, BUN 15, Creatinine 0.74, Estim Creat Clear Calc 38.94, Est GFR (MDRD) Af Amer 100, Est GFR (MDRD) Non-Af 82, BUN/Creatinine Ratio 20.3 H, Glucose 163 H, Calcium 8.2 L Diagnostic Data Chest X-Ray 06/27/18 05:17 IMPRESSION: 1. Bilateral lower lobe infiltrates, larger on the right, compatible with pneumonia. Infiltrates should be followed to radiographic resolution. 2. Previous CABG. at 0621 Reported and signed by: Ketan Mosley MD Electronically Signed: Ketan Mosley, at 6:20 EDT Tel , Service support , Current Medications Acetaminophen (Tylenol) 650 mg PO Q6H PRN PRN PRN Reason: Mild pain 1-3/Temp > 100.7 F Albuterol/Ipratropium (Duoneb) 3 ml INHALATION Q4HWA.RT [facility] Last Admin: 06/28/18 07:11 Dose: 3 ml Aspirin (Ecotrin) 81 mg PO DAILY@0800 [facility] Last Admin: 06/28/18 08:05 Dose: 81 mg Atenolol (Tenormin (Beta Annika)) 25 mg PO DAILY [facility] Last Admin: 06/28/18 08:04 Dose: 25 mg Atorvastatin Calcium (Lipitor) 40 mg PO QHS [facility] Last Admin: 06/27/18 21:09 Dose: 40 mg Citalopram Hydrobromide (Celexa) 20 mg PO LUNCH [facility] Last Admin: 06/27/18 13:42 Dose: 20 mg Citalopram Hydrobromide (Celexa) 40 mg PO DAILY [facility] Last Admin: 06/28/18 08:05 Dose: 40 mg Clopidogrel Bisulfate (Plavix) 75 mg PO QODAY [facility] Last Admin: 06/28/18 08:04 Dose: 75 mg Enoxaparin Sodium (Lovenox) 40 mg SC DAILY@1000 [facility] Last Admin: 06/28/18 08:05 Dose: 40 mg Sodium Chloride () 1,000 mls @ 100 mls/hr IV .Q10H [facility] Last Admin: 06/28/18 08:05 Dose: 100 mls/hr Levofloxacin (Levaquin Iv) 750 mg in 150 mls @ 100 mls/hr IV Q24 [facility] Last Admin: 06/28/18 09:00 Dose: 100 mls/hr Sodium Chloride () 250 mls @ 15 mls/hr IV .[id number] PRN PRN Reason: SALINE FLUSH Levothyroxine Sodium (Synthroid) 75 mcg PO DAILY@0600 [facility] Last Admin: 06/28/18 05:06 Dose: 75 mcg Lisinopril (Zestril) 40 mg PO DAILY [facility] Last Admin: 06/28/18 08:05 Dose: 40 mg Lorazepam (Ativan) 1 mg PO TID [facility] Last Admin: 06/28/18 05:06 Dose: 1 mg Methylprednisolone (Solu-Medrol) 40 mg IV Q8 [facility] Last Admin: 06/28/18 05:06 Dose: 40 mg Ondansetron HCl (Zofran) 4 mg IV Q8H PRN PRN PRN Reason: NAUSEA/VOMITING Pantoprazole Sodium (Protonix) 40 mg PO DAILY [facility] Last Admin: 06/28/18 08:04 Dose: 40 mg Sodium Chloride () 5 - 15 ml IV UD PRN PRN Reason: SALINE FLUSH Last Admin: 06/28/18 05:13 Dose: 10 ml Medical Necessity - Tobacco Use Smoking Status: Current every day smoker Assessment/Plan All Active Problems (Last Reviewed 01/29/18 @ 12:36 by Gordy Pedroza MD) Community acquired pneumonia (Acute) Elevated troponin (Acute) History of coronary artery stent placement (Resolved 12/28/17) History of coronary artery bypass graft x 3 (Resolved) Chest pain (Resolved) Dyspnea (Resolved) 1. Acute hypoxic respiratory insufficiency due to community acquired pneumonia failed outpatient therapy. CXR showed bilateral lower lobe infiltrates large on the right compatible with pneumonia. On IV Levaquin. Urine for strep and Legionella were negative. Respiratory culture and Gram stain as well as blood cultures are pending. White cell count is trended down from 15.8 on admission to 13. Currently on 3 L of oxygen. Will titrate to maintain saturation above 90%. 2. Community acquired pneumonia as under 1. 3. CAD s/p stents and CABG troponins were slightly elevated at 0.055->0.103->0.052 this could be due to demand ischemia from acute hypoxic respiratory insufficiency and pneumonia. Had no chest pain. EKG showed no acute changes. continue aspirin, plavix, lipitor and atenolol 4. Hypothyroidism: On Synthroid. 5. GERD: On PPI 6. Anxiety and depression: On Ativan and Celexa. 7. Nicotine dependence: States she smokes 1 pack a day currently and used to smoke up to 4 packs daily. Patient counseled about quitting. She states adamantly that she cannot and will not quit as she is been smoking since she was 16 and is addicted. She was not willing to entertain the possibility of using Chantix or anything else. DVT prophylaxis: lovenox Code Visit Inpatient E&M: 83301 Subs Hosp L3
--- NOTE | 2018-06-28 10:21 | PN_ITS ---
Patient Problems: Active and Suspected Problems (Last Reviewed 01/29/18 @ 12:36 by Gordy Pedroza MD) Community acquired pneumonia (Acute) Elevated troponin (Acute) Subjective: Patient seen and examined. She says she feels better than when she came in yesterday. Her breathing is better and she still coughing but is productive of clear sputum. She denies any chest pain or palpitations or dizziness, diarrhea vomiting. Review of systems otherwise negative. Labs and vitals reviewed. Vitals/I&O's: Vital Signs Temp Pulse Resp BP Pulse Ox 97.8 F 78 16 160/76 H 93 06/28/18 09:05 06/28/18 09:05 06/28/18 09:05 06/28/18 09:45 06/28/18 10:16 Oxygen Flow Rate (L/min) 2 Oxygen Delivery Method Room Air Weight: 166 lb 3.198 oz Body Mass Index (BMI) 31.4 Finger Stick Blood Glucose 145 Intake and Output for Last 24 Hours 06/26/18 06/27/18 06/28/18 23:59 23:59 23:59 Intake Total 1525 / 1525 726 / 726 Balance 1525 / 1525 726 / 726 General: Alert, Oriented x3, Cooperative, No apparent distress HEENT: Atraumatic, PERRLA, EOMI, Normocephalic Oral: Moist Mucosa Neck: Supple, No JVD, Negative Carotid Bruits Lungs: - - mildly decreased breath sounds bibasally, no wheezes or crackles. on 3L of oxygen Cardiovascular: Regular rate, Regular Rhythm, Normal S1, Normal S2, No murmurs Abdomen: Bowel Sounds Present, Soft, Non Tender, Non-Distended, No Hepato- splenomegaly Extremities: No clubbing, No cyanosis, No edema, Capillary Refill Less than 3 Seconds Skin: No rashes, No breakdown Musculoskeletal: No Tenderness to Palpation of Joints or Extremities Lymphatic: No Cervical, Supraclavicular, or Inguinal Adenopathy Neurological: Cranial nerves II-XII grossly intact, Neuro grossly intact, Motor Exam 5/5 strength throughout Psych/Mental Status: Normal Affect, Appropriate, Alert and oriented to time, place, person, mood and affect Microbiology Past 72 Hours 06/27/18 13:03 Urine, Clean Catch Streptococcus pneumoniae Antigen (M - Final 06/27/18 13:03 Urine, Clean Catch Legionella Antigen - Final Laboratory Results 06/27/18 11:14: Troponin I 0.052 H 06/28/18 05:05: WBC 13.0 H, RBC 3.92 L, Hgb 11.6 L, Hct 35.7 L, MCV 91.1, MCH 29.6, MCHC 32.5, RDW 14.2, RDW Differential 46.3 H, Plt Count 262, MPV 11.2, Immature Gran % (Auto) 0.300, Neut % (Auto) 84.6 H, Lymph % (Auto) 10.2 L, Potter % (Auto) 4.8, Eos % (Auto) 0.0, Baso % (Auto) 0.1, Absolute Neuts (auto) 11.0 H, Absolute Lymphs (auto) 1.32, Total Counted Not Reportable 06/28/18 05:05: Sodium 144, Potassium 3.8, Chloride 108 H, Carbon Dioxide 29.0, Anion Gap 7, BUN 15, Creatinine 0.74, Estim Creat Clear Calc 38.94, Est GFR (MDRD) Af Amer 100, Est GFR (MDRD) Non-Af 82, BUN/Creatinine Ratio 20.3 H, Glucose 163 H, Calcium 8.2 L Diagnostic Data Chest X-Ray 06/27/18 05:17 IMPRESSION: 1. Bilateral lower lobe infiltrates, larger on the right, compatible with pneumonia. Infiltrates should be followed to radiographic resolution. 2. Previous CABG. at 0621 Reported and signed by: Ketan Mosley MD Electronically Signed: Ketan Mosley, at 6:20 EDT Tel , Service support , Current Medications Acetaminophen (Tylenol) 650 mg PO Q6H PRN PRN PRN Reason: Mild pain 1-3/Temp > 100.7 F Albuterol/Ipratropium (Duoneb) 3 ml INHALATION Q4HWA.RT [facility] Last Admin: 06/28/18 07:11 Dose: 3 ml Aspirin (Ecotrin) 81 mg PO DAILY@0800 [facility] Last Admin: 06/28/18 08:05 Dose: 81 mg Atenolol (Tenormin (Beta Annika)) 25 mg PO DAILY [facility] Last Admin: 06/28/18 08:04 Dose: 25 mg Atorvastatin Calcium (Lipitor) 40 mg PO QHS [facility] Last Admin: 06/27/18 21:09 Dose: 40 mg Citalopram Hydrobromide (Celexa) 20 mg PO LUNCH [facility] Last Admin: 06/27/18 13:42 Dose: 20 mg Citalopram Hydrobromide (Celexa) 40 mg PO DAILY [facility] Last Admin: 06/28/18 08:05 Dose: 40 mg Clopidogrel Bisulfate (Plavix) 75 mg PO QODAY [facility] Last Admin: 06/28/18 08:04 Dose: 75 mg Enoxaparin Sodium (Lovenox) 40 mg SC DAILY@1000 [facility] Last Admin: 06/28/18 08:05 Dose: 40 mg Sodium Chloride () 1,000 mls @ 100 mls/hr IV .Q10H [facility] Last Admin: 06/28/18 08:05 Dose: 100 mls/hr Levofloxacin (Levaquin Iv) 750 mg in 150 mls @ 100 mls/hr IV Q24 [facility] Last Admin: 06/28/18 09:00 Dose: 100 mls/hr Sodium Chloride () 250 mls @ 15 mls/hr IV .[id number] PRN PRN Reason: SALINE FLUSH Levothyroxine Sodium (Synthroid) 75 mcg PO DAILY@0600 [facility] Last Admin: 06/28/18 05:06 Dose: 75 mcg Lisinopril (Zestril) 40 mg PO DAILY [facility] Last Admin: 06/28/18 08:05 Dose: 40 mg Lorazepam (Ativan) 1 mg PO TID [facility] Last Admin: 06/28/18 05:06 Dose: 1 mg Methylprednisolone (Solu-Medrol) 40 mg IV Q8 [facility] Last Admin: 06/28/18 05:06 Dose: 40 mg Ondansetron HCl (Zofran) 4 mg IV Q8H PRN PRN PRN Reason: NAUSEA/VOMITING Pantoprazole Sodium (Protonix) 40 mg PO DAILY [facility] Last Admin: 06/28/18 08:04 Dose: 40 mg Sodium Chloride () 5 - 15 ml IV UD PRN PRN Reason: SALINE FLUSH Last Admin: 06/28/18 05:13 Dose: 10 ml Medical Necessity - Tobacco Use Smoking Status: Current every day smoker Assessment/Plan All Active Problems (Last Reviewed 01/29/18 @ 12:36 by Gordy Pedroza MD) Community acquired pneumonia (Acute) Elevated troponin (Acute) History of coronary artery stent placement (Resolved 12/28/17) History of coronary artery bypass graft x 3 (Resolved) Chest pain (Resolved) Dyspnea (Resolved) 1. Acute hypoxic respiratory insufficiency due to community acquired pneumonia * failed outpatient therapy. * CXR showed bilateral lower lobe infiltrates large on the right compatible with pneumonia. * On IV Levaquin. * Urine for strep and Legionella were negative. Respiratory culture and Gram stain as well as blood cultures are pending. * White cell count is trended down from 15.8 on admission to 13. * Currently on 3 L of oxygen. Will titrate to maintain saturation above 90%. 2. Community acquired pneumonia * as under 1. * 3. CAD s/p stents and CABG * troponins were slightly elevated at 0.055->0.103->0.052 * this could be due to demand ischemia from acute hypoxic respiratory insufficiency and pneumonia. Had no chest pain. * EKG showed no acute changes. * continue aspirin, plavix, lipitor and atenolol * 4. Hypothyroidism: On Synthroid. 5. GERD: On PPI 6. Anxiety and depression: On Ativan and Celexa. 7. Nicotine dependence: * States she smokes 1 pack a day currently and used to smoke up to 4 packs daily. * Patient counseled about quitting. * She states adamantly that she cannot and will not quit as she is been smoking since she was 16 and is addicted. She was not willing to entertain the possibility of using Chantix or anything else. DVT prophylaxis: lovenox Code Visit Inpatient E&M: 60851 Subs Hosp L3
--- NOTE | 2018-06-28 11:20 | CASEMGMT ---
Addendum entered by Marliou Sharp 06/29/18 10:39: Pt states that she does have a nebulizer at home but needs new medications sent as they were too expensive before but she has new insurance now and she states that 'they said they will get me everything I need.' Dr. Ayala aware that pt would like nebulizer meds sent at this time and is agreeable. Pt states that she received nebulizer from Dr. Silva's office, 'they just gave it to me.' Pt states no further questions/concerns/needs at this time. Orin LOPEZ CM Original Note: JOHN BYRNES assessment: Face to Face with patient for initial transition planning/care coordination assessment. JOHN BYRNES introduced self and role at [facility], pt voices understanding and consents to assessment at this time. Pt is sitting up in bed in no distress at this time. Pt is A/O x4 at this time and answers all questions appropriately at this time. Care providers, pharmacy, and demographics verified at this time. PCP: Ricardo Specialists: Yovany Maldonado Pharmacy: [facility]: [facility] Living Will/HPOA: Pt states has LW/HPOA and they are on file at [facility] at this time and her daughter, Shyanne, is HPOA. LNOK: Shyanne Kim, daughter/HPOA; Santa Kim, daughter Living Arrangements: Pt states lives with friend in a mobile home with 2 ramps into home and states no concerns at home at this time. Pt is independent with ADL's. Transportation: Pt states drives self and states no transportation concerns at this time. DME/HHC: Pt states has the following DME: w/c, walker, shower chair, and grab bars. Pt states no hx of HHC or SNF in the past. Per Sheree LOPEZ, pt does not qualify for home oxygen at this time. Pt states no concerns with going home at time of discharge. Pt is retired. Pt states smokes a pack/day but does not drink ETOH. Pt states no further questions/concerns/needs at this time. CM to follow for any further discharge planning/needs. Pt Goal: Home Plan: Home Orin LOPEZ CM
[2018-06-28] MEDS: Citalopram 20 MG Tablet PO (13:01)
[2018-06-28] MEDS: Atorvastatin Calcium 40 MG Tablet PO (21:00)
[2018-06-29] VITALS (8 sets, daily range): BP systolic 136–213; BP diastolic 69–90; PULSE 68–82; RESP 14–20; TEMP 36.8–37; O2SAT 91–98
[2018-06-29] MEDS: hydrALAZINE 20 MG/ML Vial 10 MG IV (04:48)
[2018-06-29] MEDS: 0.9% NaCl Peripheral Flush Adult/Peds IV (04:52)
[2018-06-29] MEDS: Levothyroxine 75 MCG Tablet PO (05:00)
[2018-06-29 05:58] LABS: Absolute Lymphocyte Count 1.79 X10^3/ul (0.83-4.51); Absolute Neutrophil Count 11.2 X10^3/uL (2.0-7.7); Hematocrit 35.1 % (37-47); Hemoglobin 11.3 g/dl (12.0-15.0); Lymphocyte # 1.79 X10^3/ul (4.0); Lymphocyte % 12.9 % (19-41); Mean Corp Hgb Conc 32.2 g/gl (32-36); Mean Corpuscular Hgb 29.2 pg (27.0-32.0); Mean Corpuscular Volume 90.7 fL (81-99); Mean Platelet Vol. 11.1 fl (6.2-12.0); Monocyte# 0.89 X10^3/uL; Monocyte% 6.4 % (0-10); Neutrophil % 80.5 % (47-70); Platelet Count 280 K/mm3 (150-450); RBC Distribution Width CV 14.3 % (11.6-14.6); RBC Distribution Width SD 46.5 fl (35.1-43.9); Red Blood Count 3.87 M/mm3 (4.2-5.4); White Blood Count 13.9 K/mm3 (4.4-11.0)
[2018-06-29 06:11] LABS: POSITIVE COUNT NO; POSITIVE DIFFERENTIAL NO; POSITIVE MORPHOLOGY NO
[2018-06-29 06:21] LABS: Anion Gap 5 (5-15); BUN 13 mg/dL (7-18); BUN/Creat Ratio 15.5 RATIO (10-20); Chloride 106 mmol/L (98-107); Creatinine, Serum 0.84 mg/dL (0.55-1.02); EST Glomerular Filtration Rate 71 mL/min (>60); Est Glom Filt Rate - Afr Amer 86 mL/min (>60); Estimated Creatinine Clearance 46.35 ml/min; Glucose 159 mg/dL (74-106); Potassium 3.4 mmol/L (3.5-5.1); Sodium Level 140 mmol/L (136-145)
[2018-06-29] MEDS: Ipratropium/Albuterol Sulfate 3 ML AMPUL.NEB INHALATION (07:18)
[2018-06-29] MEDS: 0.9% Normal Saline 1,000 ML 100 ML IV (08:09)
[2018-06-29] MEDS: Aspirin E.C. 81 MG Tablet PO (08:10)
[2018-06-29] MEDS: LORazepam 1 MG Tablet PO ×2 (08:15→11:22)
[2018-06-29] MEDS: Acetaminophen 325 MG Tablet 650 MG PO (08:15)
[2018-06-29] MEDS: Pantoprazole Sodium 40 MG Tablet PO (08:16)
[2018-06-29] MEDS: Citalopram 40 MG TABLET PO (08:17)
[2018-06-29] MEDS: levoFLOXacin IV 750 MG/150 ML BAG 100 MG IV (09:39)
[2018-06-29] MEDS: Atenolol 25 MG Tablet PO (09:41)
[2018-06-29] MEDS: Lisinopril 40 MG Tablet PO (09:41)
--- NOTE | 2018-06-29 09:57 | DCINST_ITS ---
- Discharge Diagnoses Current Active Problems: Current Active and Chronic Problems (Last Reviewed 01/29/18 @ 12:36 by Gordy Pedroza MD) Community acquired pneumonia (Acute) Elevated troponin (Acute) You will use the following diet at home:: Cardiac Your food should be the consistency of: Regular Your liquids should be the consistency of: Regular/Thin Discharge Activity: Return to Normal Activity Weight Bearing Status: Weight bearing as tolerated Call your doctor if you observe: Fever of 101 or Higher, Shortness of breath Instructions: Discharge Instructions for Pneumonia, Pneumonia, Pneumonia Treatment Allergies/Adverse Reactions: Allergies morphine Allergy (Verified 05/05/18 14:36) PT UNSURE Penicillins Allergy (Verified 05/05/18 14:36) Hives tramadol HCl [From Ultram] Allergy (Verified 05/05/18 14:36) PT UNSURE bupropion [From Wellbutrin] Adverse Reaction (Verified 05/05/18 14:36) hallucinations Medications to take at Discharge Aspirin E.C. [Ecotrin] 81 mg PO DAILY@0800 09/06/17 Levothyroxine [Synthroid] 75 mcg PO DAILY 09/06/17 citalopram 40 mg tablet 40 mg PO DAILY 12/18/17 clopidogrel 75 mg tablet 75 mg PO QODAY 12/18/17 esomeprazole magnesium 20 mg capsule,delayed release 40 mg PO DAILY 12/18/17 lisinopril 40 mg tablet 40 mg PO DAILY tab 12/18/17 Atenolol [Tenormin (beta estefania)] 25 mg PO DAILY 01/05/18 Atorvastatin Calcium 40 mg PO DAILY 01/05/18 No122/Iron/Folic Acid [ Multi Tablet] 1 tab PO DAILY 01/05/18 Psyllium Husk [Metamucil] 5 ml PO DAILY 01/05/18 Ondansetron [Zofran Odt] 4 mg PO DAILY 01/06/18 Citalopram [Celexa] 20 mg PO LUNCH 06/27/18 Lorazepam [Ativan] 1 mg PO 4X/DAY 06/28/18 Guaifenesin [Mucinex] 1,200 mg PO BID #30 tab.er.12h 06/29/18 Sodium Chloride 0.65% [[place]al [place]] 1 spray NASAL PRN PRN #1 spray.btl 06/29/18 levoFLOXacin tablet [Levaquin tablet] 500 mg PO DAILY #3 tablet 06/29/18 predniSONE tablet 40 mg PO DAILY 5 Days #10 tablet 06/29/18 The following prescriptions were given: levoFLOXacin tablet [Levaquin tablet] 500 mg PO DAILY #3 tablet predniSONE tablet 40 mg PO DAILY 5 Days #10 tablet Sodium Chloride 0.65% [[place] Nasal [place]] 1 spray NASAL PRN PRN #1 spray.btl PRN Reason: Nasal Congestion Guaifenesin [Mucinex] 1,200 mg PO BID #30 tab.er.12h Primary Care Physician: Ino Silva Chi, MD [Primary Care Provider] - Please follow up with your Primary Care Physician in: one week Test Results: Test results from this visit will be discussed in further detail at your follow- up appointment, if applicable. Proposed Discharge Date: 06/29/18
--- NOTE | 2018-06-29 09:57 | PCM.DC.SUM ---
Discharge Date and Diagnosis - Problem List Patient Problems: Active and Suspected Problems (Last Reviewed 01/29/18 @ 12:36 by Gordy Pedroza MD) Community acquired pneumonia (Acute) Elevated troponin (Acute) Date of Admission: 06/27/18 Date of Discharge: 06/29/18 - Primary Discharge Diagnosis Active and Suspected Problems (Last Reviewed 01/29/18 @ 12:36 by Gordy Pedroza MD) Community acquired pneumonia (Acute) Elevated troponin (Acute) - Secondary Discharge Diagnosis Chronic Problems (Last Reviewed 01/29/18 @ 12:36 by Gordy Pedroza MD) Diastolic dysfunction (Chronic) Atherosclerosis of coronary artery bypass graft without angina pectoris (Chronic) Baz-LHR-XIA-Mid RCA w/ 2.0 x 10 mm Angiosculpt and 2.5 x 38 mm Promus Synergy Stent, BRIANA-Prox RCA 2.5 x 12 mm Prmomus Synergy Stent 12/28/17 XXP-RTM-Imbvy Cx w/ 2.5 x 24mm Promus 03/12/2011, NKV-Nvczq-WIA;PCI-Prox LAD; CABG x 3 SY-LAD, SVG-OM and SVG-RCA Non-rheumatic tricuspid valve insufficiency (Chronic) Secondary pulmonary arterial hypertension (Chronic) Nicotine dependence (Chronic) Hyperlipidemia (Chronic) Atherosclerosis of coronary artery of [place] heart with angina pectoris (Chronic) Ify-MHC-ZPA-Mid RCA w/ 2.0 x 10 mm Angiosculpt and 2.5 x 38 mm Promus Synergy Stent, BRIANA-Prox RCA 2.5 x 12 mm Prmomus Synergy Stent 12/28/17 OZZ-USH-Jfabu Cx w/ 2.5 x 24mm Promus 03/12/2011, NZV-Dgzxk-PSM;PCI-Prox LAD; CABG x 3 SY-LAD, SVG-OM and SVG-RCA Essential (primary) hypertension (Chronic) TIA (transient ischemic attack) (Chronic) Hospital Course and Treatment Imaging Results: Diagnostic Data Chest X-Ray 06/27/18 05:17 IMPRESSION: 1. Bilateral lower lobe infiltrates, larger on the right, compatible with pneumonia. Infiltrates should be followed to radiographic resolution. 2. Previous CABG. at 0621 Reported and signed by: Ketan Mosley MD Electronically Signed: Ketan Mosley, at 6:20 EDT Tel , Service support , Operations: None Procedures: None Summary of Care Provided: The patient is a 73 year old F with an extensive past medical history as listed. She was admitted through the ED on 06/27/2018 with a complaint of chest pain and shortness of breath which started about a week prior to admission. She was treated for pneumonia on outpatient basis but failed treatment symptoms getting worse so he decided to come in. Chest x-ray showed bilateral pneumonia and she was also found to have mildly elevated troponin. EKG showed no acute ST changes. She was admitted and managed for community-acquired pneumonia and started on IV Levaquin and breathing treatments. ~Also started on steroids on account of her history of smoking. Patient remained afebrile though her white cell count remains slightly elevated at around 12-13 on account of the fact that she had been on steroids. White cell count was initially 15 on admission. Patient was transitioned off of oxygen and felt well. She remained stable. 1 out of 2 blood cultures grew staph epidermidis which is likely contaminants. Out of an abundance of precaution, ID was consulted and reviewed patient and did not think she warranted any further work-up. Patient remained stable and was discharged on 06/29/2018 with a prescription for p.o. Levaquin for 3 days. She was also given prescription for DuoNeb's nebulizers and nasal spray as well as a 5-day course of prednisone. She is to follow-up with her primary care doctor in 1 week. Patient seen and examined prior to discharge. She had no complaints. Review of systems otherwise negative. Labs and vitals reviewed. Home medication reviewed and reconciled. o/e: Vital Signs Height 5 ft 1 in Weight: 166 lb 3.198 oz Weight in Pounds 166.2 lbs BMI 29.2 Pulse Ox [AMBULATING on Room 95 Air] Pulse Ox [At REST on Room Air] 93 Pulse Ox 93 Temperature 98.6 F Pulse Rate 82 Respiratory Rate 14 Blood Pressure [BP] 160/76 Blood Pressure 136/70 Blood Pressure Position [BP] Semi-Fowlers Blood Pressure Position Semi-Fowlers [] General: Alert, Oriented x3, Cooperative, No apparent distress HEENT: Atraumatic, PERRLA, EOMI, Normocephalic Oral: Moist Mucosa Neck: Supple, No JVD, Negative Carotid Bruits Lungs: - -lungs clear to auscultation, no wheezes or crackles Cardiovascular: Regular rate, Regular Rhythm, Normal S1, Normal S2, No murmurs Abdomen: Bowel Sounds Present, Soft, Non Tender, Non-Distended, No Hepato-splenomegaly Extremities: No clubbing, No cyanosis, No edema, Capillary Refill Less than 3 Seconds Skin: No rashes, No breakdown Musculoskeletal: No Tenderness to Palpation of Joints or Extremities Lymphatic: No Cervical, Supraclavicular, or Inguinal Adenopathy Neurological: Cranial nerves II-XII grossly intact, Neuro grossly intact, Motor Exam 5/5 strength throughout Psych/Mental Status: Normal Affect, Appropriate, Alert and oriented to time, place, person, mood and affect Patient Problems: Active and Suspected Problems (Last Reviewed 01/29/18 @ 12:36 by Gordy Pedroza MD) Community acquired pneumonia (Acute) Elevated troponin (Acute) - Physical Exam Vital Signs Temp Pulse Resp BP Pulse Ox 98.6 F 82 14 136/70 H 93 06/29/18 09:46 06/29/18 09:46 06/29/18 09:46 06/29/18 09:46 06/29/18 09:46 Oxygen Flow Rate (L/min) 2 Oxygen Delivery Method Room Air Weight: 166 lb 3.198 oz Body Mass Index (BMI) 31.4 Finger Stick Blood Glucose 145 Intake and Output for Last 24 Hours 06/27/18 06/28/18 06/29/18 23:59 23:59 23:59 Intake Total 1525 / 1525 3067 / 3067 1314 / 1314 Balance 1525 / 1525 3067 / 3067 1314 / 1314 Microbiology Past 72 Hours 06/28/18 08:07 Gram Stain - Final Sputum, Expectorated/Coughed Respiratory Culture - Preliminary Appears to be normal respiratory ivon. Further studies to follow. 06/27/18 05:20 Blood Culture - Preliminary Blood Culture (Wb) - Left Forearm No growth in 48 hours. 06/27/18 05:00 Bacteria Detection (PCR) - Final Blood Culture (Wb) #2 - Arm Right Staphylococcus epidermidis Blood Culture - Preliminary Staphylococcus epidermidis 06/27/18 13:03 Streptococcus pneumoniae Antigen (M - Final Urine, Clean Catch 06/27/18 13:03 Legionella Antigen - Final Urine, Clean Catch Laboratory Tests Past 24 Hrs 06/29/18 06/29/18 05:25 05:25 WBC 13.9 H RBC 3.87 L Hgb 11.3 L Hct 35.1 L MCV 90.7 MCH 29.2 MCHC 32.2 RDW 14.3 RDW Differential 46.5 H Plt Count 280 MPV 11.1 Immature Gran % (Auto) 0.200 Neut % (Auto) 80.5 H Lymph % (Auto) 12.9 L [place] % (Auto) 6.4 Eos % (Auto) 0.0 Baso % (Auto) 0.0 Absolute Neuts (auto) 11.2 H Absolute Lymphs (auto) 1.79 Total Counted Not Reportable Sodium 140 Potassium 3.4 L Chloride 106 Carbon Dioxide 29.0 Anion Gap 5 BUN 13 Creatinine 0.84 Estim Creat Clear Calc 46.35 Est GFR (MDRD) Af Amer 86 Est GFR (MDRD) Non-Af 71 BUN/Creatinine Ratio 15.5 Glucose 159 H Calcium 8.0 L Discharge Diet: Low fat/ Low Cholesterol Discharge Activity: Return to Normal Activity Weight Bearing Status: Weight bearing as tolerated Call your doctor if you observe: Fever of 101 or Higher, Shortness of breath Home Medications: Medications to take at Discharge Aspirin E.C. [Ecotrin] 81 mg PO DAILY@0800 09/06/17 Levothyroxine [Synthroid] 75 mcg PO DAILY 09/06/17 citalopram 40 mg tablet 40 mg PO DAILY 12/18/17 clopidogrel 75 mg tablet 75 mg PO QODAY 12/18/17 esomeprazole magnesium 20 mg capsule,delayed release 40 mg PO DAILY 12/18/17 lisinopril 40 mg tablet 40 mg PO DAILY tab 12/18/17 Atenolol [Tenormin (beta estefania)] 25 mg PO DAILY 01/05/18 Atorvastatin Calcium 40 mg PO DAILY 01/05/18 No122/Iron/Folic Acid [ Multi Tablet] 1 tab PO DAILY 01/05/18 Psyllium Husk [Metamucil] 5 ml PO DAILY 01/05/18 Ondansetron [Zofran Odt] 4 mg PO DAILY 01/06/18 Citalopram [Celexa] 20 mg PO LUNCH 06/27/18 Lorazepam [Ativan] 1 mg PO 4X/DAY 06/28/18 Guaifenesin [Mucinex] 1,200 mg PO BID #30 tab.er.12h 06/29/18 Sodium Chloride 0.65% [[place] Nasal [place]] 1 spray NASAL PRN PRN #1 spray.btl 06/29/18 levoFLOXacin tablet [Levaquin tablet] 500 mg PO DAILY #3 tablet 06/29/18 predniSONE tablet 40 mg PO DAILY 5 Days #10 tablet 06/29/18 Following Prescrptions Were Given to Patient: levoFLOXacin tablet [Levaquin tablet] 500 mg PO DAILY #3 tablet predniSONE tablet 40 mg PO DAILY 5 Days #10 tablet Sodium Chloride 0.65% [[place] Nasal [place]] 1 spray NASAL PRN PRN #1 spray.btl PRN Reason: Nasal Congestion Guaifenesin [Mucinex] 1,200 mg PO BID #30 tab.er.12h Primary Care Physician: Ino Silva Chi, MD [Primary Care Provider] - Please follow up with your Primary Care Physician in: one week Patient Instructions: Pneumonia Treatment, Discharge Instructions for Pneumonia, Pneumonia Disposition: Home Minutes spent on discharge:: 40 Patient Condition:: Stable Medical Necessity - Tobacco Use Smoking Status: Current every day smoker Meaningful Use Info Meaningful Use Diagnoses (Choose all that apply): None applicable Code Visit Inpatient E&M: 05571 Disch Hosp
--- NOTE | 2018-06-29 10:28 | CASEMGMT ---
Patient has a Healthcare Power of Research Investigator and a Healthcare Living Will in e-chart. Copies were printed and placed in her chart. Fern THAPA
--- NOTE | 2018-06-29 11:07 | PCM.HP.ID ---
Problem List (1) Community acquired pneumonia Status: Acute Reason for Consult: cap Consulted by: Dr. Ayala History of Present Illness: The patient is a 73 year old F with tobacco use, presented with about 2 weeks of cough, white sputum, SOB, chills, fatigue, n/v. Saw PCP, dx with pneumonia, started on steroids and iv abx, transitioned to po but sx worsened. Came to ED, admitted on levaquin, feeling better. Single Bcx with CoNS. Full ROS Performed and neg except as noted above. - Medical History Past Medical History (Chronic Problems): Chronic Problems (Last Reviewed 01/29/18 @ 12:36 by Gordy Pedroza MD) Diastolic dysfunction (Chronic) Atherosclerosis of coronary artery bypass graft without angina pectoris (Chronic) Xcp-ZGQ-RFL-Mid RCA w/ 2.0 x 10 mm Angiosculpt and 2.5 x 38 mm Promus Synergy Stent, BRIANA-Prox RCA 2.5 x 12 mm Prmomus Synergy Stent 12/28/17 ZEW-OER-Semzb Cx w/ 2.5 x 24mm Promus 03/12/2011, IBQ-Xwohg-SKE;PCI-Prox LAD; CABG x 3 SY-LAD, SVG-OM and SVG-RCA Non-rheumatic tricuspid valve insufficiency (Chronic) Secondary pulmonary arterial hypertension (Chronic) Nicotine dependence (Chronic) Hyperlipidemia (Chronic) Atherosclerosis of coronary artery of [place] heart with angina pectoris (Chronic) Bpw-WGQ-IDI-Mid RCA w/ 2.0 x 10 mm Angiosculpt and 2.5 x 38 mm Promus Synergy Stent, BRIANA-Prox RCA 2.5 x 12 mm Prmomus Synergy Stent 12/28/17 OBG-TUZ-Lihyq Cx w/ 2.5 x 24mm Promus 03/12/2011, UJX-Zxekb-JOB;PCI-Prox LAD; CABG x 3 SY-LAD, SVG-OM and SVG-RCA Essential (primary) hypertension (Chronic) TIA (transient ischemic attack) (Chronic) Allergies/Adverse Reactions: Allergies morphine Allergy (Verified 05/05/18 14:36) PT UNSURE Penicillins Allergy (Verified 05/05/18 14:36) Hives tramadol HCl [From Ultram] Allergy (Verified 05/05/18 14:36) PT UNSURE bupropion [From Wellbutrin] Adverse Reaction (Verified 05/05/18 14:36) hallucinations Home Medications: Ambulatory Orders Medication Instructions Recorded Aspirin E.C. [Ecotrin] 81 mg PO DAILY@0800 09/06/17 Levothyroxine [Synthroid] 75 mcg PO DAILY 09/06/17 citalopram 40 mg tablet 40 mg PO DAILY 12/18/17 clopidogrel 75 mg tablet 75 mg PO QODAY 12/18/17 esomeprazole magnesium 20 mg 40 mg PO DAILY 12/18/17 capsule,delayed release lisinopril 40 mg tablet 40 mg PO DAILY tab 12/18/17 Atenolol [Tenormin (beta estefania)] 25 mg PO DAILY 01/05/18 Atorvastatin Calcium 40 mg PO DAILY 01/05/18 No122/Iron/Folic Acid 1 tab PO DAILY 01/05/18 [ Multi Tablet] Psyllium Husk [Metamucil] 5 ml PO DAILY 01/05/18 Ondansetron [Zofran Odt] 4 mg PO DAILY 01/06/18 Citalopram [Celexa] 20 mg PO LUNCH 06/27/18 Lorazepam [Ativan] 1 mg PO 4X/DAY 06/28/18 Guaifenesin [Mucinex] 1,200 mg PO BID #30 tab.er.12h 06/29/18 Ipratropium/Albuterol Sulfate 3 ml INHALATION Q4H.RT #30 06/29/18 [Duoneb] ampul.neb Sodium Chloride 0.65% [[place] Nasal 1 spray NASAL PRN PRN #1 spray.btl 06/29/18 [place]] levoFLOXacin tablet [Levaquin 500 mg PO DAILY #3 tablet 06/29/18 tablet] predniSONE tablet 40 mg PO DAILY 5 Days #10 tablet 06/29/18 - Social History Tobacco Use: cigarettes Vital Signs Temp Pulse Resp BP Pulse Ox 98.6 F 82 14 136/70 H 93 06/29/18 09:46 06/29/18 09:46 06/29/18 09:46 06/29/18 09:46 06/29/18 09:46 Oxygen Flow Rate (L/min) 2 Oxygen Delivery Method Room Air Weight: 75.387 kg Body Mass Index (BMI) 31.4 Finger Stick Blood Glucose 145 Microbiology Past 72 Hours 06/28/18 08:07 Gram Stain - Final Sputum, Expectorated/Coughed Respiratory Culture - Preliminary Appears to be normal respiratory ivon. Further studies to follow. 06/27/18 05:20 Blood Culture - Preliminary Blood Culture (Wb) - Left Forearm No growth in 48 hours. 06/27/18 05:00 Bacteria Detection (PCR) - Final Blood Culture (Wb) #2 - Arm Right Staphylococcus epidermidis Blood Culture - Preliminary Staphylococcus epidermidis 06/27/18 13:03 Streptococcus pneumoniae Antigen (M - Final Urine, Clean Catch 06/27/18 13:03 Legionella Antigen - Final Urine, Clean Catch Laboratory Tests Past 24 Hrs 06/29/18 06/29/18 05:25 05:25 WBC 13.9 H RBC 3.87 L Hgb 11.3 L Hct 35.1 L MCV 90.7 MCH 29.2 MCHC 32.2 RDW 14.3 RDW Differential 46.5 H Plt Count 280 MPV 11.1 Immature Gran % (Auto) 0.200 Neut % (Auto) 80.5 H Lymph % (Auto) 12.9 L [place] % (Auto) 6.4 Eos % (Auto) 0.0 Baso % (Auto) 0.0 Absolute Neuts (auto) 11.2 H Absolute Lymphs (auto) 1.79 Total Counted Not Reportable Sodium 140 Potassium 3.4 L Chloride 106 Carbon Dioxide 29.0 Anion Gap 5 BUN 13 Creatinine 0.84 Estim Creat Clear Calc 46.35 Est GFR (MDRD) Af Amer 86 Est GFR (MDRD) Non-Af 71 BUN/Creatinine Ratio 15.5 Glucose 159 H Calcium 8.0 L - Other Studies Radiology: [] reviewed Other Studies: [] Route of nutrition/ use of supplements: [] Nutritional Intake: [] IV Site: [] Alejo Catheter: [] - Physical Exam General: Alert, Oriented x3, Cooperative, No apparent distress HEENT: Atraumatic, PERRLA, EOMI Neck: Supple, No Nodes Lungs: Wheezes Cardiovascular: Regular rate, Regular Rhythm, Murmur Abdomen: Soft, Non Tender, Non-Distended Extremities: No edema Skin: No rashes IV Site: Peripheral, without redness Musculoskeletal: No Tenderness to Palpation of Joints or Extremities Neurological: Cranial nerves II-XII grossly intact - Assessment/Plan Antibiotics: [] Assessment/Plan: [] Active and Suspected Problems (Last Reviewed 01/29/18 @ 12:36 by Gordy Pedroza MD) Community acquired pneumonia (Acute) Elevated troponin (Acute) CAP - improved, agree with plan to d/c home on a few more doses of levaquin single (+) bcx with MSSE - consistent with contaminant. Thank you, d/w Dr. Aayla
--- NOTE | 2018-06-29 11:10 | CON.PCM_ITS ---
Problem List (1) Community acquired pneumonia Status: Acute Reason for Consult: cap Consulted by: Dr. Ayala History of Present Illness: The patient is a 73 year old F with tobacco use, presented with about 2 weeks of cough, white sputum, SOB, chills, fatigue, n/v. Saw PCP, dx with pneumonia, started on steroids and iv abx, transitioned to po but sx worsened. Came to ED, admitted on levaquin, feeling better. Single Bcx with CoNS. Full ROS Performed and neg except as noted above. - Medical History Past Medical History (Chronic Problems): Chronic Problems (Last Reviewed 01/29/18 @ 12:36 by Gordy Pedroza MD) Diastolic dysfunction (Chronic) Atherosclerosis of coronary artery bypass graft without angina pectoris (Chronic) Fqu-FKU-QSL-Mid RCA w/ 2.0 x 10 mm Angiosculpt and 2.5 x 38 mm Promus Synergy Stent, BRIANA-Prox RCA 2.5 x 12 mm Prmomus Synergy Stent 12/28/17 TRT-APN-Oxdpe Cx w/ 2.5 x 24mm Promus 03/12/2011, SHK-[place]-UGX;PCI-Prox LAD; CABG x 3 SY-LAD, SVG-OM and SVG-RCA Non-rheumatic tricuspid valve insufficiency (Chronic) Secondary pulmonary arterial hypertension (Chronic) Nicotine dependence (Chronic) Hyperlipidemia (Chronic) Atherosclerosis of coronary artery of [place] heart with angina pectoris (Chronic) Aau-FSV-XTA-Mid RCA w/ 2.0 x 10 mm Angiosculpt and 2.5 x 38 mm Promus Synergy Stent, BRIANA-Prox RCA 2.5 x 12 mm Prmomus Synergy Stent 12/28/17 RNA-YBA-Wjvtu Cx w/ 2.5 x 24mm Promus 03/12/2011, ITH-Mqttq-MQP;PCI-Prox LAD; CABG x 3 SY-LAD, SVG-OM and SVG-RCA Essential (primary) hypertension (Chronic) TIA (transient ischemic attack) (Chronic) Allergies/Adverse Reactions: Allergies morphine Allergy (Verified 05/05/18 14:36) PT UNSURE Penicillins Allergy (Verified 05/05/18 14:36) Hives tramadol HCl [From Ultram] Allergy (Verified 05/05/18 14:36) PT UNSURE bupropion [From Wellbutrin] Adverse Reaction (Verified 05/05/18 14:36) hallucinations Home Medications: Ambulatory Orders Medication Instructions Recorded Aspirin E.C. [Ecotrin] 81 mg PO DAILY@0800 09/06/17 Levothyroxine [Synthroid] 75 mcg PO DAILY 09/06/17 citalopram 40 mg tablet 40 mg PO DAILY 12/18/17 clopidogrel 75 mg tablet 75 mg PO QODAY 12/18/17 esomeprazole magnesium 20 mg 40 mg PO DAILY 12/18/17 capsule,delayed release lisinopril 40 mg tablet 40 mg PO DAILY tab 12/18/17 Atenolol [Tenormin (beta estefania)] 25 mg PO DAILY 01/05/18 Atorvastatin Calcium 40 mg PO DAILY 01/05/18 No122/Iron/Folic Acid 1 tab PO DAILY 01/05/18 [ Multi Tablet] Psyllium Husk [Metamucil] 5 ml PO DAILY 01/05/18 Ondansetron [Zofran Odt] 4 mg PO DAILY 01/06/18 Citalopram [Celexa] 20 mg PO LUNCH 06/27/18 Lorazepam [Ativan] 1 mg PO 4X/DAY 06/28/18 Guaifenesin [Mucinex] 1,200 mg PO BID #30 tab.er.12h 06/29/18 Ipratropium/Albuterol Sulfate 3 ml INHALATION Q4H.RT #30 06/29/18 [Duoneb] ampul.neb Sodium Chloride 0.65% [[place] Nasal 1 spray NASAL PRN PRN #1 spray.btl 06/29/18 [place]] levoFLOXacin tablet [Levaquin 500 mg PO DAILY #3 tablet 06/29/18 tablet] predniSONE tablet 40 mg PO DAILY 5 Days #10 tablet 06/29/18 - Social History Tobacco Use: cigarettes Vital Signs Temp Pulse Resp BP Pulse Ox 98.6 F 82 14 136/70 H 93 06/29/18 09:46 06/29/18 09:46 06/29/18 09:46 06/29/18 09:46 06/29/18 09:46 Oxygen Flow Rate (L/min) 2 Oxygen Delivery Method Room Air Weight: 75.387 kg Body Mass Index (BMI) 31.4 Finger Stick Blood Glucose 145 Microbiology Past 72 Hours 06/28/18 08:07 Gram Stain - Final Sputum, Expectorated/Coughed Respiratory Culture - Preliminary Appears to be normal respiratory ivon. Further studies to follow. 06/27/18 05:20 Blood Culture - Preliminary Blood Culture (Wb) - Left Forearm No growth in 48 hours. 06/27/18 05:00 Bacteria Detection (PCR) - Final Blood Culture (Wb) #2 - Arm Right Staphylococcus epidermidis Blood Culture - Preliminary Staphylococcus epidermidis 06/27/18 13:03 Streptococcus pneumoniae Antigen (M - Final Urine, Clean Catch 06/27/18 13:03 Legionella Antigen - Final Urine, Clean Catch Laboratory Tests Past 24 Hrs 06/29/18 06/29/18 05:25 05:25 WBC 13.9 H RBC 3.87 L Hgb 11.3 L Hct 35.1 L MCV 90.7 MCH 29.2 MCHC 32.2 RDW 14.3 RDW Differential 46.5 H Plt Count 280 MPV 11.1 Immature Gran % (Auto) 0.200 Neut % (Auto) 80.5 H Lymph % (Auto) 12.9 L [place] % (Auto) 6.4 Eos % (Auto) 0.0 Baso % (Auto) 0.0 Absolute Neuts (auto) 11.2 H Absolute Lymphs (auto) 1.79 Total Counted Not Reportable Sodium 140 Potassium 3.4 L Chloride 106 Carbon Dioxide 29.0 Anion Gap 5 BUN 13 Creatinine 0.84 Estim Creat Clear Calc 46.35 Est GFR (MDRD) Af Amer 86 Est GFR (MDRD) Non-Af 71 BUN/Creatinine Ratio 15.5 Glucose 159 H Calcium 8.0 L - Other Studies Radiology: [] reviewed Other Studies: [] Route of nutrition/ use of supplements: [] Nutritional Intake: [] IV Site: [] Alejo Catheter: [] - Physical Exam General: Alert, Oriented x3, Cooperative, No apparent distress HEENT: Atraumatic, PERRLA, EOMI Neck: Supple, No Nodes Lungs: Wheezes Cardiovascular: Regular rate, Regular Rhythm, Murmur Abdomen: Soft, Non Tender, Non-Distended Extremities: No edema Skin: No rashes IV Site: Peripheral, without redness Musculoskeletal: No Tenderness to Palpation of Joints or Extremities Neurological: Cranial nerves II-XII grossly intact - Assessment/Plan Antibiotics: [] Assessment/Plan: [] Active and Suspected Problems (Last Reviewed 01/29/18 @ 12:36 by Gordy Pedroza MD) Community acquired pneumonia (Acute) Elevated troponin (Acute) CAP - improved, agree with plan to d/c home on a few more doses of levaquin single (+) bcx with MSSE - consistent with contaminant. Thank you, d/w Dr. Ayala
[2018-06-29] MEDS: Citalopram 20 MG Tablet PO (11:22)
--- NOTE | 2018-06-29 11:42 | PHA.DC.MC ---
Pharmacy Service has performed discharge medication reconciliation and counseling for this patient. The patient's discharge medication list was reviewed for discrepancies and discrepancies were resolved. The patient was counseled on the following discharge medications and changes in medications for homegoing were reviewed. 1. LEVOFLOXACIN 2. PREDNISONE 3. MUCINEX 4. [place]CEAN NASAL SPRAY The Reason for Use, instructions for use, and potential side effects were reviewed for all new medications. The patient's questions regarding all of their medications were answered. The patient was able to verbally demonstrate an understanding of their discharge medications. Home Medications Aspirin E.C. [Ecotrin] 81 mg PO DAILY@0800 09/06/17 Levothyroxine [Synthroid] 75 mcg PO DAILY 09/06/17 citalopram 40 mg tablet 40 mg PO DAILY 12/18/17 clopidogrel 75 mg tablet 75 mg PO QODAY 12/18/17 esomeprazole magnesium 20 mg capsule,delayed release 40 mg PO DAILY 12/18/17 lisinopril 40 mg tablet 40 mg PO DAILY tab 12/18/17 Atenolol [Tenormin (beta estefania)] 25 mg PO DAILY 01/05/18 Atorvastatin Calcium 40 mg PO DAILY 01/05/18 No122/Iron/Folic Acid [ Multi Tablet] 1 tab PO DAILY 01/05/18 Psyllium Husk [Metamucil] 5 ml PO DAILY 01/05/18 Ondansetron [Zofran Odt] 4 mg PO DAILY 01/06/18 Citalopram [Celexa] 20 mg PO LUNCH 06/27/18 Lorazepam [Ativan] 1 mg PO 4X/DAY 06/28/18 Guaifenesin [Mucinex] 1,200 mg PO BID #30 tab.er.12h 06/29/18 Ipratropium/Albuterol Sulfate [Duoneb] 3 ml INHALATION Q4H.RT #30 ampul.neb 06/29/18 Sodium Chloride 0.65% [[place] Nasal [place]] 1 spray NASAL PRN PRN #1 spray.btl 06/29/18 levoFLOXacin tablet [Levaquin tablet] 500 mg PO DAILY #3 tablet 06/29/18 predniSONE tablet 40 mg PO DAILY 5 Days #10 tablet 06/29/18
--- NOTE | 2018-06-30 15:01 | CASEMGMT ---
JOHN BYRNES Discharge F/U Phone Call LACE: 12 STRATA: 4 Discharge date: 06/29/18 Call date: 06/30/18 Call time: 1502 Duration: 7 minutes Admission dx: CAP, Elevated troponin Pt states is 'doing better' since discharge but states is 'shakey from the prednisone', but states breathing 'is much better.' Pt states no questions regarding discharge instructions or medications at this time. Pt states that she has f/u with Dr. Silva tomorrow. Pt states that 'most staff were wonderful but some aides were not.' Becky PCU director updated at this time via email regarding pt concerns. Pt voiced no further questions/concerns/needs at this time and was thankful for call at this time. Orin LOPEZ CM
== END 2018-06-29 13:43 | disposition home or self-care (01) | DRG 194 ==
LOC: ED 07:00 → PCU 07:15
PROVIDERS: Admitting Provider Family Medicine; Emergency Provider Emergency Medicine; Family Provider Family Medicine Geriatric Medicine; PCP Family Medicine Geriatric Medicine; Referring Provider Family Medicine; Visit Provider Student in an Organized Health Care Education/Training Program
DX: J18.9 Pneumonia, unspecified organism (principal); J44.0 Chronic obstructive pulmonary disease with (acute) lower respiratory infection; I25.810 Atherosclerosis of coronary artery bypass graft(s) without angina pectoris; I50.32 Chronic diastolic (congestive) heart failure; J44.1 Chronic obstructive pulmonary disease with (acute) exacerbation; R79.89 Other specified abnormal findings of blood chemistry; I11.0 Hypertensive heart disease with heart failure; E78.5 Hyperlipidemia, unspecified; I36.1 Nonrheumatic tricuspid (valve) insufficiency; I27.21 Secondary pulmonary arterial hypertension; K21.9 Gastro-esophageal reflux disease without esophagitis; F32.9 Major depressive disorder, single episode, unspecified; F41.9 Anxiety disorder, unspecified; E03.9 Hypothyroidism, unspecified; G47.33 Obstructive sleep apnea (adult) (pediatric); F17.210 Nicotine dependence, cigarettes, uncomplicated; Z95.1 Presence of aortocoronary bypass graft; Z95.5 Presence of coronary angioplasty implant and graft; Z79.82 Long term (current) use of aspirin; Z79.899 Other long term (current) drug therapy; Z86.73 Personal history of transient ischemic attack (TIA), and cerebral infarction without residual deficits
CPT/HCPCS: 36415; 71046; 80048; 84484; 85025; 87040; 87070; 87149; 87205; 87449; 93005; 94640; 97802; 99285; 99406; J7030; J7050; A4216

== ENCOUNTER → 2018-07-22 08:46 | Outpatient (CLI) | payer MEDICARE, SELFPAY ==
[2017-12-28 13:50] VITALS: BMI 29.2
[2018-07-14 10:14] VITALS: BMI 31.4
[2018-07-22 15:37] LABS: Absolute Lymphocyte Count 2.87 X10^3/ul (0.83-4.51); Absolute Neutrophil Count 7.2 X10^3/uL (2.0-7.7); Basophil# 0.02 X10^3/uL; Basophil% 0.2 % (0-1); Eosinophil# 0.15 X10^3/uL; Eosinophils% 1.4 % (0-5); Hematocrit 41.1 % (37-47); Hemoglobin 13.5 g/dl (12.0-15.0); Lymphocyte # 2.87 X10^3/ul (4.0); Lymphocyte % 26.2 % (19-41); Mean Corp Hgb Conc 32.8 g/gl (32-36); Mean Corpuscular Hgb 29.7 pg (27.0-32.0); Mean Corpuscular Volume 90.5 fL (81-99); Mean Platelet Vol. 11.6 fl (6.2-12.0); Monocyte# 0.65 X10^3/uL; Monocyte% 5.9 % (0-10); Neutrophil # 7.22 X10^3/uL (2.7-7.7); Neutrophil % 65.8 % (47-70); Platelet Count 313 K/mm3 (150-450); RBC Distribution Width CV 14.5 % (11.6-14.6); RBC Distribution Width SD 47.5 fl (35.1-43.9); Red Blood Count 4.54 M/mm3 (4.2-5.4)
[2018-07-22 15:39] LABS: POSITIVE COUNT NO; POSITIVE DIFFERENTIAL NO; POSITIVE MORPHOLOGY NO
[2018-07-22 15:58] LABS: Vitamin D,25 Hydroxy 25.9 ng/mL (29.95-100.01)
[2018-07-22 16:22] LABS: ALB/GLOB Ratio 0.9 RATIO (0.9-2.4); AST(SGOT) 17 U/L (15-37); Alanine Aminotransfer ALT/SGPT 24 U/L (13-56); Albumin, Serum 3.1 g/dL (3.2-5.0); Alkaline Phosphatase 133 U/L (45-117); Anion Gap 10 (5-15); BUN 11 mg/dL (7-18); BUN/Creat Ratio 11.2 RATIO (10-20); Calcium,Total 8.2 mg/dL (8.5-10.1); Chloride 106 mmol/L (98-107); Cholesterol 140 mg/dL (200); Creatinine, Serum 0.99 mg/dL (0.55-1.02); EST Glomerular Filtration Rate 59 mL/min (>60); Est Glom Filt Rate - Afr Amer 71 mL/min (>60); Globulin 3.6 g/dL (2.2-4.2); Glucose 155 mg/dL (74-106); High Density Lipoprotein 38 mg/dL; Potassium 3.8 mmol/L (3.5-5.1); Protein, Total 6.7 g/dL (6.4-8.2); Sodium Level 140 mmol/L (136-145); Thyroid Stim Hormone (TSH) 0.88 uIU/mL (0.358-3.74); Triglycerides 142 mg/dL; Very Low Density Lipoprotein 28 mg/dL (5-40)
== END ==
PROVIDERS: Family Provider Family Medicine Geriatric Medicine; PCP Family Medicine Geriatric Medicine; Visit Provider Family Medicine Geriatric Medicine
DX: E55.9 Vitamin D deficiency, unspecified (principal); E78.5 Hyperlipidemia, unspecified; I10 Essential (primary) hypertension
CPT/HCPCS: 36415; 80053; 80061; 82306; 84443; 85025

== ENCOUNTER 2018-09-06 16:51 | Emergency (ER) | payer MEDICARE, SELFPAY ==
[2017-12-28 13:50] VITALS: BMI 29.2
[2018-07-14 10:14] VITALS: BMI 31.4
[2018-09-06 16:54] VITALS: BP 169/87; PULSE 80; RESP 18; TEMP 37; O2SAT 95; BMI 29.2
[2018-09-06 17:06] VITALS: O2SAT 97
--- NOTE | 2018-09-06 17:12 | CT_ITS ---
STUDY: CT BRAIN WITHOUT CONTRAST REASON FOR EXAM: Female, 73 years old. Fall. Head trauma. Neck pain. RADIATION DOSAGE (If Supplied By Facility): CTDIvol = ( 44.99 ) mGy, DLP = ( 779.24 ) mGycm TECHNIQUE: Transaxial CT imaging of the brain was performed without administration of intravenous contrast material. Individualized dose optimization techniques were used for this CT. COMPARISON: June 22, 2018. FINDINGS: Normal soft tissue structures. Normal calvarium. Normal size ventricles and extra-axial spaces for the patient's age. Normal white matter tracts of the cerebral hemispheres. There is remote lacunar infarct in the right basal ganglia extending upward into the wang radiata. Otherwise normal basal ganglia and thalami. Normal brainstem. Normal cerebellum. There is no intracranial hemorrhage. There are no findings of an acute ischemic infarction. Normal visualized paranasal sinuses. CT/Brain/Head without Contrast IMPRESSION: Chronic involutional changes without evidence of acute intracranial or calvarial abnormality. There is no major interval change. Electronically Signed: Lamont Roger DO at 17:49 EDT Tel [phone], Service support ,
--- NOTE | 2018-09-06 17:12 | CT_ITS ---
STUDY: CT CERVICAL SPINE WITHOUT CONTRAST REASON FOR EXAM: Female, 73 years old. Fall. Neck pain. Head trauma. RADIATION DOSAGE (If Supplied By Facility): CTDIvol = ( ) mGy, DLP = ( 592.41 ) mGycm TECHNIQUE: High resolution transaxial imaging was performed without contrast material. Sagittal and coronal images were reconstructed. Individualized dose optimization techniques were used for this CT. COMPARISON: April 23, 2017.. FINDINGS: Normal craniovertebral junction. There are degenerative changes of the anterior atlantoaxial articulation. Normal odontoid process. There is straightening of the normal cervical lordosis. Normal vertebral bodies and posterior osseous elements. C2-3: Normal endplates. Mild loss of disc height. Normal central canal and intervertebral neuroforamina. C3-4: Normal endplates. Normal disc height and morphology. Normal central canal and intervertebral neuroforamina. C4-5: Endplate spondylosis with loss of disc height. Facet and uncovertebral joint degenerative change.Normal central canal. There is narrowing of the bilateral intervertebral neuroforamina. C5-6: Endplate spondylosis with loss of disc height. Facet and uncovertebral joint degenerative change.Normal central canal. There is narrowing of the bilateral intervertebral neuroforamina. C6-7: Endplate spondylosis with loss of disc height. Facet and uncovertebral joint degenerative change.Normal central canal. There is narrowing of the bilateral intervertebral neuroforamina. C7-T1: Normal endplates. Loss of disc height.. Normal central canal and intervertebral neuroforamina. Normal visualized soft tissue structures. CT/Spine Cervical without Contras IMPRESSION: Stable degenerative changes of the cervical spine. There is no acute fracture or subluxation. Electronically Signed: Lamont Roger DO at 17:53 EDT Tel [phone], Service support ,
--- NOTE | 2018-09-06 17:13 | ED.DCSUM_ITS ---
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 Mechanism/Context: Same level fall Usually ambulates: Without assistance Location: head, tailbone Quality of Pain: Aching Current Severity: Severe Maximum Severity: Severe Worsened by: moving Relieved by: remaining still Associated Symptoms: Negative for: Parasthesias, Weakness, Loss of function, Inability to ambulate, Loss of consciousness, Amnesia Narrative: Patient states she was bending over tending to the garden at her house, and as a result of bending over her legs went numb, which is happened many times in the past, however she did not anticipate it happening this time, and her legs gave out causing her fall. Her legs feel better now and she was able to stand prior to arrival and bear weight without any difficulty with resolution of the neurologic symptoms. However when she fell, she landed on her tailbone, and then fell backwards hitting her head on the nearby concrete. She takes Plavix because of a history of coronary stent. She did not have any loss of consciousness but she has developed a severe headache and nausea with no vomiting or syncope. She also states her neck is sore on both sides she points to the trapezius muscles toward her shoulders. States it hurts to turn her neck and when she does so it gives her no neurologic symptoms peripherally. She states her chest is hurting when she moves only, she has COPD and has chronic cough but no symptoms of a COPD flareup. She states she has been working outside today but not drinking much in the way of fluids and feels thirsty. She has had chronic low back pain, that is unchanged. She denies any other pain or injuries. 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 Status: Chronic Comment: Cmu-HOG-ORM-Mid RCA w/ 2.0 x 10 mm Angiosculpt and 2.5 x 38 mm Promus Synergy Stent, BRIANA-Prox RCA 2.5 x 12 mm Prmomus Synergy Stent 12/28/17 [id number]-OBQ-Kxmnq Cx w/ 2.5 x 24mm Promus 03/12/2011, [id number]-Vmtrp-MWR;PCI-Prox LAD; CABG x 3 SY-LAD, SVG-OM and SVG-RCA (5) Atherosclerosis of coronary artery of [place] heart with angina pectoris Status: Chronic Comment: Gol-ZLL-LNK-Mid RCA w/ 2.0 x 10 mm Angiosculpt and 2.5 x 38 mm Promus Synergy Stent, BRIANA-Prox RCA 2.5 x 12 mm Prmomus Synergy Stent 12/28/17 [id number]-IGT-Izscq Cx w/ 2.5 x 24mm Promus 03/12/2011, FIZ-Kakyv-EUL;PCI-Prox LAD; CABG x 3 SY-LAD, SVG-OM and SVG-RCA (6) Diastolic dysfunction Status: Chronic (7) Essential (primary) hypertension Status: Chronic (8) Hyperlipidemia Status: Chronic (9) Secondary pulmonary arterial hypertension Status: Chronic (10) TIA (transient ischemic attack) Status: Chronic (11) COPD (chronic obstructive pulmonary disease) Status: Chronic Past Medical History - Allergies and Home Meds Allergies/Adverse Reactions: Allergies morphine Allergy (Verified 09/06/18 17:14) PT UNSURE Penicillins Allergy (Verified 09/06/18 17:14) Hives tramadol HCl [From Ultram] Allergy (Verified 09/06/18 17:14) PT UNSURE bupropion [From Wellbutrin] Adverse Reaction (Verified 09/06/18 17:14) hallucinations Primary Care Physician: Ino Silva Chi, MD [Primary Care Provider] - Surgical History: angioplasty - A total of 5 stents, appendectomy, cholecystectomy, coronary bypass surgery - 3 vessel bypass surgery, - - Tubal ligation; and partial oopherectomy. thyroidectomy. Smoking Status: Current every day smoker Alcohol: None - Family History Paternal Family History: Reports: Heart Disease - Father of heart attack at age 64. Maternal Family History: Reports: Cancer - Mother of cancer at age 72. Review of Systems General: Denies: Chills, Fever, Sweats Eyes: Denies: Visual changes - bilaterally, Diplopia ENT: Denies: Rhinorrhea, Sore throat Cardiovascular: Reports: Chest pain - w/ movement. Denies: Palpitations Respiratory: Reports: Cough - chronic, unchgd. Denies: Dyspnea, Dyspnea on exertion Gastrointestinal: Reports: Nausea, Hematochezia - Intermittent for months, scheduled for colonoscopy, no change since injury. Denies: Abdominal pain, Vomiting, Diarrhea, Melena Genitourinary: Denies: Dysuria, Hematuria, Frequency Musculoskeletal: Denies: Back pain, Extremity Pain Skin: Denies: Rash, Wounds Neurological: Reports: Headache, Parasthesia - Bilateral lower extremities, resolved. See HPI.. Denies: Weakness, Numbness Hematologic: Reports: Easy bruising, Easy bleeding Physical Exam Vital Signs/Narrative: Vital Signs Temp Pulse Resp BP Pulse Ox 09/06/18 17:06 97 09/06/18 16:54 98.6 F 80 18 169/87 H 95 Inital Vital Signs reviewed: Yes General: Well nourished, Well developed Head: Normocephalic, Atraumatic Eyes: Perrl, EOMI ENT: TM's clear, No hemotympanum or drainage, No trauma Neck: Full ROM, Spinal Tenderness - Very mild mid cervical spine, no step-off or signs of trauma, Paraspinal Tenderness - Bilaterally in trapezius. Cardiovascular: Regular rate, Regular rhythm, No murmurs, - - Normal 2+/4 radial and dorsalis pedis pulses Respiratory: No distress, CTA bilaterally, Chest tenderness - Mild, at sternum and upper left chest, no crepitance or step-off Abdomen: Soft, Nontender, Nondistended, Normal bowel sounds Back: Spinal Tenderness - Lower lumbosacral and mostly at coccyx. No crepitance. Skin: Normal color, No rash, No Trauma - No outward signs of trauma Neurological: Alert, Oriented x3, Cranial nerves II-XII grossly intact, Normal Strength, Normal Sensation Psychological: Normal Mood, - - Anxious Diagnostic/Tx/Re-eval Clinical Impression(s) from Imaging Studies Brain CT 09/06/18 17:12 IMPRESSION: Chronic involutional changes without evidence of acute intracranial or calvarial abnormality. There is no major interval change. Electronically Signed: Lamont Roger DO at 17:49 EDT Tel [phone], Service support , Cervical Spine CT 09/06/18 17:12 IMPRESSION: Stable degenerative changes of the cervical spine. There is no acute fracture or subluxation. Electronically Signed: Lamont Roger DO at 17:53 EDT Tel [phone], Service support , Sacrum and Coccyx X-Ray 09/06/18 17:42 IMPRESSION: Normal x-rays of the sacrum and coccyx. Electronically Signed: Lamont RogerDO at 18:03 EDT Tel [phone], Service support , - Medical Decision Making Imaging is unremarkable she is improved after Newton and requesting a prescription for some for home use. She was able to bear weight, and she and daughter are comfortable with going home. Discussed follow-up. ED Disposition - Plan for ED Patient: Disposition: Home or Assisted Living Diagnosis: Closed head injury without loss of consciousness, Cervical strain, acute, Coccygeal contusion Instructions: CONTUSION, Coccyx/Sacrum, HEAD INJURY, No Wake-Up (Adult) Prescriptions: Hydrocodone Bitart/Apap 5-325 [Newton 5MG-325MG] 1 tablet PO Q4H PRN PRN 2 Days #10 tablet PRN Reason: Pain Transmission Status: Sent to [id number] Referrals: Ino Silva Chi, MD [Primary Care Provider] - 1 Week if not improving
[2018-09-06] MEDS: Ondansetron ODT 4 MG Tablet 8 MG PO (17:16)
[2018-09-06] MEDS: HYDROcodone Bitartrate/Apap 5/325 Tablet PO (17:17)
--- NOTE | 2018-09-06 17:42 | RAD_ITS ---
STUDY: X-RAY - SACRUM/COCCYX REASON FOR EXAM: Female, 73 years old. Pain after fall. TECHNIQUE: 3 view(s) of the sacrum and coccyx were obtained. COMPARISON: None. FINDINGS: Normal bilateral sacroiliac joints. Normal visualized sacral ala and fused sacral bodies. Normal sacrococcygeal junction with a normal angulation. Normal coccygeal segments. There are calcifications within the iliac arteries. Surgical clips are seen in the right groin area. RAD/Sacrum-Coccyx min 2 Views IMPRESSION: Normal x-rays of the sacrum and coccyx. Electronically Signed: Lamont Roger DO at 18:03 EDT Tel [phone], Service support ,
[2018-09-06 19:20] VITALS: BP 170/68; PULSE 60; RESP 18; O2SAT 98
== END 2018-09-06 19:21 | disposition home or self-care (01) ==
PROVIDERS: Emergency Provider Emergency Medicine; Family Provider Family Medicine Geriatric Medicine; PCP Family Medicine Geriatric Medicine
DX: S09.90XA Unspecified injury of head, initial encounter (principal); S16.1XXA Strain of muscle, fascia and tendon at neck level, initial encounter; S30.0XXA Contusion of lower back and pelvis, initial encounter; W18.39XA Other fall on same level, initial encounter; Y93.H2 Activity, gardening and landscaping; Y92.007 Garden or yard of unspecified non-institutional (private) residence as the place of occurrence of the external cause; Y99.8 Other external cause status; I25.810 Atherosclerosis of coronary artery bypass graft(s) without angina pectoris; I25.119 Atherosclerotic heart disease of native coronary artery with unspecified angina pectoris; I11.0 Hypertensive heart disease with heart failure; I50.32 Chronic diastolic (congestive) heart failure; I27.21 Secondary pulmonary arterial hypertension; E78.5 Hyperlipidemia, unspecified; J44.9 Chronic obstructive pulmonary disease, unspecified; F32.9 Major depressive disorder, single episode, unspecified; F41.9 Anxiety disorder, unspecified; G89.29 Other chronic pain; F17.200 Nicotine dependence, unspecified, uncomplicated; Z95.5 Presence of coronary angioplasty implant and graft; Z79.02 Long term (current) use of antithrombotics/antiplatelets; Z79.82 Long term (current) use of aspirin; Z79.899 Other long term (current) drug therapy; Z86.73 Personal history of transient ischemic attack (TIA), and cerebral infarction without residual deficits
CPT/HCPCS: 70450; 72125; 72220; 99283

== ENCOUNTER → 2018-09-13 15:31 | Outpatient (CLI) | payer MEDICARE, SELFPAY ==
[2017-12-28 13:50] VITALS: BMI 29.2
[2018-09-06 16:54] VITALS: BMI 29.2
[2018-09-13 16:12] LABS: Absolute Lymphocyte Count 3.79 X10^3/uL (0.83-4.51); Absolute Neutrophil Count 6.3 X10^3/uL (2.0-7.7); Basophil# 0.05 X10^3/uL; Basophil% 0.5 % (0-1); Eosinophil# 0.19 X10^3/uL; Eosinophils% 1.7 % (0-5); Hematocrit 41.8 % (37-47); Hemoglobin 13.8 g/dL (12.0-15.0); Lymphocyte # 3.79 X10^3/ul (4.0); Lymphocyte % 34.5 % (19-41); Mean Corpuscular Volume 90.9 fL (81-99); Mean Platelet Vol. 11.1 fl (6.2-12.0); Monocyte# 0.63 X10^3/uL; Monocyte% 5.7 % (0-10); NRBC Flagged by Analyzer 0 % (0-5); Neutrophil # 6.28 X10^3/uL (2.7-7.7); Neutrophil % 57.1 % (47-70); Platelet Count 281 K/mm3 (150-450); RBC Distribution Width CV 13.4 % (11.6-14.6); RBC Distribution Width SD 45.2 fl (35.1-43.9)
[2018-09-13 16:45] LABS: ALB/GLOB Ratio 0.9 RATIO (0.9-2.4); AST(SGOT) 15 U/L (15-37); Alanine Aminotransfer ALT/SGPT 19 U/L (13-56); Albumin, Serum 3.4 g/dL (3.2-5.0); Alkaline Phosphatase 132 U/L (45-117); Anion Gap 8 (5-15); BUN 16 mg/dL (7-18); BUN/Creat Ratio 16.9 RATIO (10-20); Calcium,Total 8.6 mg/dL (8.5-10.1); Chloride 106 mmol/L (98-107); Creatinine, Serum 0.95 mg/dL (0.55-1.02); EST Glomerular Filtration Rate 62 mL/min (>60); Est Glom Filt Rate - Afr Amer 75 mL/min (>60); Globulin 3.6 g/dL (2.2-4.2); Glucose 106 mg/dL (74-106); Potassium 3.9 mmol/L (3.5-5.1); Sodium Level 140 mmol/L (136-145); Thyroid Stim Hormone (TSH) 1.55 uIU/mL (0.358-3.74)
== END ==
LOC: POLAB3 15:38
PROVIDERS: Family Provider Family Medicine Geriatric Medicine; PCP Family Medicine Geriatric Medicine; Visit Provider Family Medicine Geriatric Medicine
DX: I10 Essential (primary) hypertension (principal)
CPT/HCPCS: 36415; 80053; 84443; 85025

== ENCOUNTER → 2018-09-16 12:57 | Outpatient (CLI) | payer MEDICARE, SELFPAY ==
[2017-12-28 13:50] VITALS: BMI 29.2
[2018-09-06 16:54] VITALS: BMI 29.2
--- NOTE | 2018-09-16 13:00 | RAD_ITS ---
STUDY: X-RAY CHEST REASON FOR EXAM: Female, 73 years old. Chest pain TECHNIQUE: Frontal and lateral views of the chest. COMPARISON: 06/27/2018. FINDINGS: The lungs are clear and expanded. There is no demonstrated pleural abnormality. Sternal cerclage wires and vascular clips are present from a prior sternotomy and coronary artery bypass graft procedure (CABG). Normal heart size. Normal mediastinum and beverly. Normal visualized pulmonary arteries. Normal visualized aortic arch and descending thoracic aorta. Degenerative changes and mild dextroconvex scoliosis of the thoracic spine. There is no demonstrated abnormality of the visualized soft tissue structures of the upper abdomen. RAD/Chest PA and Lateral IMPRESSION: No acute chest disease. Electronically Signed: Miller Castillo MD at 13:27 EDT , Service support ,
--- NOTE | 2018-09-16 13:00 | SP.MBSS_ITS ---
PRIMARY / SECONDARY DIAGNOSIS: Dysphagia REFERRING PHYSICIAN: Dr. Silva CURRENT DIET: regular/thin DENTITION: poor dentition with numerous missing teeth and severe decay MENTAL STATUS: WF for participation in MBS RESPIRATORY STATUS: oxygenating on room air PREVIOUS MODIFIED BARIUM SWALLOW STUDY: n/a REASON FOR REFERRAL: Patient reports sensation of things ?getting stuck? in her throat, coughing/choking w/ food, especially of note choking on bits of food once finished eating d/t dislodgement of pieces of food that were stuck in her teeth MEDICAL HISTORY: History obtained from review of [facility] medical record degenerative disc disease, depression with anxiety, hx thyroid cancer, COPD, atherosclerosis of coronary artery of [place] heart w/ angina pectoris, chronic back pain, benzodiazepine dependence, essential primary hypertension, hx PNA, HLD, hypothyroidism, nicotine dependence, non-rheumatic tricuspid valve insufficiency, JAIME, secondary pulmonary arterial HTN, TIA, CVA, closed head injury w/out loss of consciousness, multi infarct dementia, benign paroxysmal positional vertigo, surgical hx appendectomy, CABG x 3, coronary artery stent placement, left heart catheterization, cholecystectomy STUDY FINDINGS Patient participated in a Modified Barium Swallow (MBS) study on 09/16/2018. Dr. Dowell was the radiologist present for this evaluation. This study was recorded in the lateral view and images were sent to PACs for storage. The following consistencies were presented to this patient for analysis of oropharyngeal swallow function: thin liquid, pudding and ? a Lindsay Doone Shortbread Cookie. Results of the MBS are as follows: PENETRATION / ASPIRATION SCALE (ENNIS): 1 = does not enter airway 2 = enters airway/above vocal folds/ejected 3 = enters airway/above vocal folds/not ejected 4 = enters airway/contacts vocal folds/ejected 5 = enters airway/contacts vocal folds/not ejected 6 = enters airway/below vocal folds/ejected 7 = enters airway/below vocal folds/not ejected despite effort 8 = enters airway/below vocal folds/no effort PENETRATION / ASPIRATION SCALE (SCORE): 1. Thin liquid via 5mL tsp: 1 2. Thin liquid via 5mL tsp: 2 3. Thin liquid single sip via cup: 1 4. Thin liquid sequential swallows via cup: 2 *trace penetration w/ the 1st of 3 sequential swallow w/ complete ejection 5. Puddin *patient noted to cough immediately post deglutition, no penetration/aspiration evident 6. Cookie: 1 *patient noted to cough immediately post deglutition, no penetration/aspiration evident 7. Thin liquid single sip via straw: 1 IMPRESSION ORAL PHASE CHARACTERIZED BY: LABIAL SEAL: escape beyond interlabial space or lateral juncture; no extension beyond angie border TONGUE CONTROL DURING BOLUS MANIPULATION: cohesive bolus between tongue to palatal seal BOLUS PREPARATION / MASTICATION: slow prolonged chewing/mashing with complete recollection BOLUS TRANSPORT / LINGUAL MOTION: slowed tongue motion ORAL RESIDUE: residue collection on oral structures PHARYNGEAL PHASE CHARACTERIZED BY: INITIATION OF PHARYNGEAL SWALLOW: bolus head at posterior laryngeal surface of epiglottis at first hyoid excursion SOFT PALATE ELEVATION: no bolus between soft palate and pharyngeal wall LARYNGEAL ELEVATION: partial superior movement of thyroid cartilage/partial approximation of arytenoids cartilage to epiglottic petiole ANTERIOR HYOID EXCURSION: partial anterior movement EPIGLOTTIC MOVEMENT: partial epiglottic inversion LARYNGEAL VESTIBULE CLOSURE AT HEIGHT OF SWALLOW: complete laryngeal vestibule closure with no air/contrast in laryngeal vestibule PHARYNGEAL STRIPPING WAVE: pharyngeal stripping wave present / diminished PHARYNGOESOPHAGEAL SEGMENT OPENING: complete distension and complete duration with no obstruction of flow TONGUE BASE RETRACTION: narrow column of contrast between tongue base and posterior pharyngeal wall PHARYNGEAL RESIDUE: collection of residue within or on pharyngeal structures ESOPHAGEAL PHASE CHARACTERIZED BY: ESOPHAGEAL BOLUS CLEARANCE IN THE UPRIGHT POSITION: could not view INTERPRETATION OF RESULTS Patient presents with mild oropharyngeal dysphagia (R13.12). The oral phase is primarily marked by moderate mastication inefficiency w/ a munching mastication pattern d/t limited dentition w/ poor condition of the remaining teeth, although able to adequately break apart bolus given extra time. Slowed lingual sweeping motion appreciated for A-P oral to pharyngeal bolus transfer w/ mild oral residue retention post deglutition. The pharyngeal phase is primarily marked by delayed pharyngeal swallow onset timing (leading edge of the bolus located at the posterior laryngeal surface of the epiglottis upon swallow onset) resulting in intermittent laryngeal vestibule penetration before swallow onset that was transient and ejected from the laryngeal vestibule entirely during the swallow. Mildly reduced laryngeal elevation w/ incomplete anterior hyoid excursion resulted in incomplete epiglottic inversion. Mild pharyngeal dysmotility attributed to reduced tongue base retraction and posterior pharyngeal stripping wave action resulting in pharyngeal residue retention within the valleculae (trade-mild) and pyriforms (mild). Residue was not of a sufficient amount to result in penetration/aspiration after the swallow, with the patient sufficiently clearing residue w/ an independently initiated dry swallow. Penetration was transient occurring only twice during the study, initially w/ liquid consumption via spoon and secondly w/ sequential swallows via cup. Penetration was eliminated w/ bolus volume adjustment to one sip at a time via cup/straw. The patient was noted to cough immediately following deglutition of the pudding and cookie consistencies w/ no laryngeal vestibule penetration or tracheal aspiration evident to account for coughing. RECOMMENDATIONS DIET TEXTURE RECOMMENDATIONS: Will recommend a soft texture/thin liquid diet. COMPENSATORY STRATEGIES RECOMMENDED: avoid hard/crunchy/dry foods, take small sips, one sip at a time, thoroughly chew solids, follow bites w/ a liquid wash, seated upright at 90 degrees during PO intake, remain upright for 30-60 minutes post meal (GERD precaution) NEED FOR ADDITIONAL SKILLED ST INTERVENTION FOR MANAGEMENT OF DYSPHAGIA: The patient was able to comprehend and express the recommended intake precautions detailed above with sufficient detail to suggest high likelihood of compliance. No further skilled speech-language services warranted at this time targeting dysphagia. ADDITIONAL COMMENTS/RECOMMENDATIONS: Results and recommendations were discussed with the Patient immediately following MBS completion, with the Patient verbalizing understanding and agreement with all recommendations and education provided. IMAGE COUNT: [id number]
--- NOTE | 2018-09-16 13:05 | RAD_ITS ---
STUDY: SWALLOWING STUDY REASON FOR EXAM: Female, 73 years old. Dysphagia. TECHNIQUE: The examination was performed with Speech Pathology in attendance. Under fluoroscopic observation, the patient ingested thin barium, thick barium, barium pudding, and barium coated cracker. FLUOROSCOPY TIME: 2:10 minutes/seconds. 2060 fluoroscopic image obtained. RADIOLOGIST INVOLVEMENT: Radiologist was present and providing direct supervision. COMPARISON: None. FINDINGS: The following was observed during swallowing of the various mixtures of barium: Thin Barium: Transient penetration with ingestion of thin liquids with a straw. Barium Pudding: There was no evidence of aspiration or laryngeal penetration. Barium Coated Cracker: There was no evidence of aspiration or laryngeal penetration. RAD/Swallowing Function w/Video IMPRESSION: Transient penetration with ingestion of thin liquids via straw. The swallow study findings were discussed with the patient by the speech pathologist at the conclusion of the examination. Please see speech pathology report for more information and recommendations. Electronically Signed: Gonzales Dowell, at 13:44 EDT , Service support ,
== END ==
PROVIDERS: Family Provider Family Medicine Geriatric Medicine; PCP Family Medicine Geriatric Medicine; Referring Provider Family Medicine Geriatric Medicine; Visit Provider Family Medicine Geriatric Medicine
DX: R07.9 Chest pain, unspecified (principal); R13.10 Dysphagia, unspecified
CPT/HCPCS: 71046; 74230; 92611

== ENCOUNTER → 2018-09-20 08:15 | Outpatient (CLI) | payer MEDICARE, SELFPAY ==
[2017-12-28 13:50] VITALS: BMI 29.2
[2018-09-06 16:54] VITALS: BMI 29.2
--- NOTE | 2018-09-20 08:19 | RAD_ITS ---
STUDY: X-RAY - ESOPHAGUS (BARIUM SWALLOW) WITH FLUOROSCOPY REASON FOR EXAM: Female, 73 years old. Dysphagia for the past 6 months. TECHNIQUE: 18 view(s) of the esophagus were obtained following swallowing of barium. FLUOROSCOPY TIME (if supplied): (0:28) minutes/seconds COMPARISON: None. FINDINGS: There is no demonstrated esophageal foreign body. There is no demonstrated stricture or mucosal abnormality. Normal gastroesophageal junction, without a demonstrated hiatal hernia. The patient ingested a 12 mm tablet of barium without any difficulty. There is atherosclerotic tortuosity of the aortic arch and descending thoracic aorta. Normal visualized pulmonary parenchyma. Normal visualized osseous structures of the thorax. RAD/Esophagus Only IMPRESSION: Normal plain film x-ray examination (barium swallow) of the esophagus. Electronically Signed: Gonzales Dowell, at 8:33 EDT , Service support ,
--- NOTE | 2018-09-20 08:20 | RAD_ITS ---
STUDY: X-RAY - ABDOMEN/PELVIS REASON FOR EXAM: Female, 73 years old. Lower abdominal pain TECHNIQUE: Flat and upright abdomen COMPARISON: None. FINDINGS: There is mild scarring within the lung bases pulmonary COPD changes. There are sternal wires and mild cardiomegaly. There is S-shaped thoracolumbar spinal scoliosis with multilevel degenerative changes. Surgical clips right upper quadrant from prior cholecystectomy. There is no demonstrated free abdominal air. There are multiple colonic diverticula most significant within the sigmoid colon. There is no significant bowel dilatation bowel gas pattern appears unremarkable There are hyperdensities within the diverticula. The visualized liver, spleen and kidneys are grossly normal in size and morphology. Normal soft tissue structures. There is generalized osteopenia. RAD/Abd Inc Decub and/or Erect IMPRESSION: Mild scarring in the lung bases and COPD changes Sternal wires and mild cardiomegaly S-shaped thoracolumbar spine scoliosis multilevel degenerative changes, generalized osteopenia colonic diverticulosis most significant within sigmoid colon, with faint hyperdensities within the sigmoid diverticula likely from ingested material and/or prior contrast study. If there is clinical concern for acute colonic diverticulitis then CT would be recommended Generalized osteopenia Prior cholecystectomy Electronically Signed: Bridger Botello, at 7:32 EDT Tel , Service support ,
== END ==
PROVIDERS: Family Provider Family Medicine Geriatric Medicine; PCP Family Medicine Geriatric Medicine; Referring Provider Family Medicine Geriatric Medicine; Visit Provider Family Medicine Geriatric Medicine
DX: K62.5 Hemorrhage of anus and rectum (principal); K57.30 Diverticulosis of large intestine without perforation or abscess without bleeding; Z90.49 Acquired absence of other specified parts of digestive tract; R13.10 Dysphagia, unspecified
CPT/HCPCS: 74019; 74220

== ENCOUNTER → 2018-09-23 15:42 | Outpatient (CLI) | payer MEDICARE, SELFPAY ==
[2017-12-28 13:50] VITALS: BMI 29.2
[2018-09-06 16:54] VITALS: BMI 29.2
--- NOTE | 2018-09-23 15:45 | BI_ITS ---
MAMMOGRAPHY - BILATERAL SCREENING REASON FOR EXAM: Female, 73 years old. Routine annual screening examination. PERTINENT HISTORY: Sister with breast cancer. Occasional bilateral breast tenderness and soreness. TECHNIQUE: Digital bilateral breast shyanne (3D mammographic acquisition) in the CC and MLO projections. 2-D mediolateral oblique (MLO) and craniocaudad (CC) views of both breasts were obtained. CAD: Full Field Digital Mammography with Computer Added Detection was performed. COMPARISON: Comparison is made with prior examination dated June 01, 2013. FINDINGS: Breast Composition: There are scattered areas of fibroglandular density. There are no dominant masses or suspicious calcifications. No other significant abnormalities are identified. There has been no significant change since the prior study. BI/SCREEN MAMM (CAD) W/SHYANNE BILAT IMPRESSION: Stable bilateral screening mammogram. Yearly follow-up mammogram recommended. (A) ASSESSMENT CATEGORY: BIRADS Category 1: Negative. A letter regarding these results will be sent to the patient by the facility within 30 days. Approximately 10% of breast cancers are not detected by mammography. A normal mammogram should not delay biopsy of a clinically suspicious abnormality. [id number] Electronically Signed: Gonzales Dowell, at 8:27 EDT , Service support ,
--- NOTE | 2018-09-23 16:31 | CT_ITS ---
STUDY: CT ABDOMEN AND PELVIS WITH CONTRAST REASON FOR EXAM: Female, 73 years old. Diverticulitis RADIATION DOSAGE (If Supplied By Facility): CTDIvol = ( 19.90 ) mGy, DLP = ( 1009.90 ) mGycm TECHNIQUE: Transaxial images were obtained from the dome of the diaphragm to the symphysis pubis with oral contrast. 100ML IV/Oral Isovue 300 was administered. Sagittal and coronal images were reconstructed. Individualized dose optimization techniques were used for this CT. COMPARISON: Prior study of 01/21/2012 FINDINGS: The visualized lung bases are unremarkable. The visualized portions of the heart are within normal limits. Normal liver. There are surgical clips in the gallbladder fossa consistent with a prior cholecystectomy. Normal spleen. There is diffuse atrophy of the pancreas. There is a 1.2 cm nodule of the tail of one of the limbs of the left adrenal. This is stable in the interval. Normal right kidney. Normal left kidney. Normal visualized stomach. Normal small intestine. There is severe sigmoid diverticulosis with no evidence of associated diverticulitis. The appendix is not seen in accordance with history of appendectomy. There are calcified plaques of the abdominal aorta and common iliac arteries. Normal inferior vena cava. Normal retroperitoneum. Normal urinary bladder. There appears to be some uterine tissue, raising question of hysterectomy. This appears similar to the previous study. Normal abdominal wall. There are degenerative changes of the lumbar spine. CT/Abdomen/Pelvis WITH Contrast IMPRESSION: 1. Status post cholecystectomy. 2. Pancreatic cancer. 3. Stable 1.2 cm nodule of the left adrenal. 4. Severe sigmoid diverticulosis with no evidence of associated diverticulitis. 5. The appendix is surgically absent. 6. There appears to be some uterine tissue, raising the question of history of hysterectomy. 7. Degenerative changes of the lumbar spine. Electronically Signed: Catarino Urban MD at 21:00 EDT , Service support ,
== END ==
PROVIDERS: Family Provider Family Medicine Geriatric Medicine; PCP Family Medicine Geriatric Medicine; Referring Provider Family Medicine Geriatric Medicine; Visit Provider Family Medicine Geriatric Medicine
DX: Z12.31 Encounter for screening mammogram for malignant neoplasm of breast (principal); Z80.3 Family history of malignant neoplasm of breast; K57.32 Diverticulitis of large intestine without perforation or abscess without bleeding
CPT/HCPCS: 74177; 77063; 77067; Q9967

== ENCOUNTER 2018-10-03 12:15 | Observation (INO) | payer MEDICARE, SELFPAY ==
[2017-12-28 13:50] VITALS: BMI 29.2
[2018-10-03] VITALS (14 sets, daily range): BP systolic 137–175; BP diastolic 62–75; PULSE 42–62; RESP 14–22; TEMP 36.6–36.8; O2SAT 94–99; BMI 31.6; BMI 31.7; BMI 29.8; BMI 29.9
--- NOTE | 2018-10-03 12:29 | NURSING ---
1227 STROKE ALERT CALLED
--- NOTE | 2018-10-03 12:32 | CT_ITS ---
STUDY: CTA HEAD AND NECK WITH CONTRAST REASON FOR EXAM: Female, 73 years old. CVA RADIATION DOSAGE (If Supplied By Facility): CTDIvol = ( 29.30 ) mGy, DLP = ( 876.63 ) mGycm TECHNIQUE: CT angiography was performed with a multi-detector CT scanner. Data acquisition was obtained from the skull base through the vertex following intravenous administration of 100 IV Isovue 370. MIP images were reconstructed from the axial data set. Post-processing of the angiographic images was performed, with multiplanar reformation and 3D reconstruction. Degree of stenosis (when present) measured utilizing NASCET criteria. Individualized dose optimization techniques were used for this CT. COMPARISON: CTA brain from 06/18/2015 FINDINGS: Normal bilateral petrous carotid arteries. There is calcified plaque formation of the right cavernous carotid artery, without a cross-sectional luminal stenosis. There is calcified plaque formation of the left cavernous carotid artery, without a cross-sectional luminal stenosis. Normal right A1 segments of the anterior cerebral artery. Normal left A1 segments of the anterior cerebral artery. Normal intact anterior communicating artery (ACOM). Normal bilateral A2 segments of the anterior cerebral arteries. Normal right M1 and M2 segments of the middle cerebral arteries, with a normal M1 bifurcation. Normal left M1 and M2 segments of the middle cerebral arteries, with a normal M1 bifurcation. There is non-visualization of the right posterior communicating artery (PCOM). There is non-visualization of the left posterior communicating artery (PCOM). Normal bilateral vertebral arteries. Normal basilar artery with a normal basilar bifurcation. The visualized bilateral superior cerebellar (SCA) arteries are normal. Normal bilateral P1, P2 and visualized P3 segments of the posterior cerebral arteries. There is no demonstrated aneurysm of the [place] of [place]. Intracranial contents described on brain CT. Mucoperiosteal thickening of the right more than left maxillary sinus but no air-fluid levels. AORTIC ARCH: There is atherosclerosis of the aortic arch. Atherosclerosis extends into the brachiocephalic artery origins with a moderate to severe (65%) stenosis at the origin of the left common carotid artery. There are degenerative changes of the cervical spine. Sternal wires and mediastinal surgical clips compatible with prior CABG. RIGHT CAROTID ARTERIES: Normal right common carotid artery (CCA). There is mild atherosclerotic plaque formation with minimal narrowing of the right carotid bulb. There is mild atherosclerotic plaque formation of the origin of the right internal carotid artery with 30% cross sectional diameter stenosis. There is atherosclerotic tortuous elongation of the cervical portion of the right internal carotid artery. Normal origin of the right external carotid artery (ECA). LEFT CAROTID ARTERIES: There is mild atherosclerotic plaque formation with minimal narrowing of the left carotid bulb. There is mild atherosclerotic plaque formation of the origin of the left internal carotid artery with 40% stenosis. There is atherosclerotic tortuous elongation of the cervical portion of the left internal carotid artery. Normal origin of the left external carotid artery (ECA). VERTEBRAL ARTERIES: Normal bilateral vertebral arteries. CT/CTA Head AND Neck W/ Contrast IMPRESSION: 1. No intracranial arterial thrombosis or hemodynamically significant stenosis. 2. 65 % stenosis at the origin of the left common carotid artery. 3. Bilateral carotid bulb and proximal ICA atherosclerosis without hemodynamically significant stenosis. No arterial dissection. N.B. : The above information has been verbally conveyed by Jacob Williamson MD (Brooks) to Gurmeet Carrillo on 10/03/2018 13:04:23 (ET). Electronically Signed: Jacob Williamson MD (Brooks) at 13:05 EDT , Service support ,
--- NOTE | 2018-10-03 12:32 | CT_ITS ---
STUDY: CT BRAIN WITHOUT CONTRAST REASON FOR EXAM: Female, 73 years old. CVA RADIATION DOSAGE (If Supplied By Facility): CTDIvol = ( ) mGy, DLP = ( ) mGycm TECHNIQUE: Transaxial CT imaging of the brain was performed without administration of intravenous contrast material. Individualized dose optimization techniques were used for this CT. COMPARISON: September 06, 2018 FINDINGS: Normal soft tissue structures. Normal calvarium. There is mild cerebral atrophy with widening of the extra-axial spaces and ventricular dilatation. There are areas of decreased attenuation within the white matter tracts of the supratentorial brain, consistent with microvascular disease changes. Normal basal ganglia and thalami. Normal brainstem. Normal cerebellum. There is no intracranial hemorrhage. There are no findings of an acute ischemic infarction. Normal visualized paranasal sinuses. CT/Brain/Head without Contrast IMPRESSION: 1. No acute intracranial hemorrhage or mass effect. 2. Central parenchymal volume loss. White matter changes that are nonspecific but most commonly associated with chronic small vessel ischemic disease. N.B. : The above information has been verbally conveyed by Jacob Williamson MD (Brooks) to Gurmeet Carrillo on 10/03/2018 12:58:20 (ET). Electronically Signed: Jacob Williamson MD (Brooks) at 13:01 EDT , Service support ,
--- NOTE | 2018-10-03 12:32 | RAD_ITS ---
STUDY: X-RAY CHEST REASON FOR EXAM: Female, 73 years old. Left-sided weakness TECHNIQUE: AP COMPARISON: 09/16/2018 FINDINGS: EKG leads project over the chest. The lungs are clear and expanded. There is no demonstrated pleural abnormality. There is mild cardiac enlargement. Sternal wires and mediastinal surgical clips compatible with prior CABG. Normal visualized pulmonary arteries. Normal visualized aortic arch and descending thoracic aorta. No acute bony process. There is no demonstrated abnormality of the visualized soft tissue structures of the upper abdomen. RAD/Chest 1 View IMPRESSION: Stable, nonocclusive portable x-ray examination of the chest. Electronically Signed: Jacob Williamson MD (Brooks) at 13:07 EDT , Service support ,
--- NOTE | 2018-10-03 12:32 | EKG12_ITS ---
Test Reason : NEURO S
--- NOTE | 2018-10-03 12:33 | ED.VIS.STROK ---
History of Present Illness Chief Complaint: Neuro S/Sx Informant: Patient Onset: Today Context: - - Awoke with symptoms Timing: Continuous Quality and Location: Left Arm Parasthesia, Left Leg Parasthesia, Left Arm Weakness, Left Leg Weakness Current Severity: Moderate Maximum Severity: Moderate Worsened by: Nothing Relieved by: Nothing Associated Symptoms: Chest Pain - Intermittent, dull, lasts for seconds at a time, not currently present. Negative for: Headache, Nausea, Vomiting Narrative: Patient had left-sided weakness yesterday for a period of time but it resolved. She does not know how long she had it for. She went to bed last night at 2100, woke up with symptoms this morning and they have been persistent along with intermittent chest pain. She does not have a chest discomfort now, it is very brief and does not radiate to her back and is not sharp/tearing. It does not radiate when she gets it. She is having frequent PVCs on the monitor. She has a history of TIAs and takes aspirin and Plavix. 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 Comment: Nvp-BAA-BTP-Mid RCA w/ 2.0 x 10 mm Angiosculpt and 2.5 x 38 mm Promus Synergy Stent, BRIANA-Prox RCA 2.5 x 12 mm Prmomus Synergy Stent 12/28/17 [id number]-LYJ-Uucpz Cx w/ 2.5 x 24mm Promus 03/12/2011, [id number];PCI-Prox LAD; CABG x 3 SY-LAD, SVG-OM and SVG-RCA (2) Atherosclerosis of coronary artery of [place] heart with angina pectoris Status: Chronic Comment: Trn-FKJ-IZD-Mid RCA w/ 2.0 x 10 mm Angiosculpt and 2.5 x 38 mm Promus Synergy Stent, BRIANA-Prox RCA 2.5 x 12 mm Prmomus Synergy Stent 12/28/17 RQX-OPD-Mplah Cx w/ 2.5 x 24mm Promus 03/12/2011, [id number];PCI-Prox LAD; CABG x 3 SY-LAD, SVG-OM and SVG-RCA (3) COPD (chronic obstructive pulmonary disease) Status: Chronic (4) DDD (degenerative disc disease), lumbar Status: Chronic (5) Depression with anxiety Status: Chronic (6) Diastolic dysfunction Status: Chronic (7) Essential (primary) hypertension Status: Chronic (8) Hyperlipidemia Status: Chronic (9) Non-rheumatic tricuspid valve insufficiency Status: Chronic (10) Secondary pulmonary arterial hypertension Status: Chronic (11) TIA (transient ischemic attack) Status: Chronic (12) History of coronary artery bypass graft x 3 Status: Resolved Comment: CABG x 3 SY-LAD, SVG-OM and SVG-RCA (13) History of coronary artery stent placement Status: Resolved Comment: Cod-IEK-XCB-Mid RCA w/ 2.0 x 10 mm Angiosculpt and 2.5 x 38 mm Promus Synergy Stent, BRIANA-Prox RCA 2.5 x 12 mm Prmomus Synergy Stent 12/28/17 JRI-GVY-Hahwv Cx w/ 2.5 x 24mm Promus 03/12/2011, [id number]-Rqwyd-RFT;PCI-Prox LAD; (14) History of thyroid cancer Status: Resolved Past Medical History - Allergies and Home Meds Allergies/Adverse Reactions: Allergies morphine Allergy (Verified 10/03/18 12:27) PT UNSURE Penicillins Allergy (Verified 10/03/18 12:27) Hives tramadol HCl [From Ultram] Allergy (Verified 10/03/18 12:27) PT UNSURE bupropion [From Wellbutrin] Adverse Reaction (Verified 10/03/18 12:27) hallucinations Primary Care Physician: Ino Silva Chi, MD [Primary Care Provider] - Surgical History: angioplasty - A total of 5 stents, appendectomy, cholecystectomy, coronary bypass surgery - 3 vessel bypass surgery, - - Tubal ligation; and partial oopherectomy. thyroidectomy. Lives: Alone Smoking Status: Current every day smoker Drugs: None - Family History Paternal Family History: Reports: Heart Disease - Father of heart attack at age 64. Maternal Family History: Reports: Cancer - Mother of cancer at age 72. Review of Systems General: Denies: Chills, Fever, Sweats Eyes: Reports: Visual changes - right. Denies: Diplopia ENT: Denies: Rhinorrhea, Sore throat Cardiovascular: Reports: Chest pain. Denies: Palpitations Respiratory: Denies: Dyspnea, Cough, Dyspnea on exertion Gastrointestinal: Denies: Abdominal pain, Nausea, Vomiting, Diarrhea, Melena, Hematochezia Genitourinary: Denies: Dysuria, Hematuria, Frequency Musculoskeletal: Denies: Back pain, Swelling, Extremity Pain Skin: Denies: Rash, Wounds Neurological: Reports: Weakness, Numbness. Denies: Headache STROKE Vital Signs/Narrative: Vital Signs Temp 10/03/18 12:16 97.9 F Inital Vital Signs reviewed: Yes - NIHSS Initial 1a Level of Consciousness: 0 1b LOC Questions (Score 2 if aphasic/stupor): 0 1c LOC Commands (Only score 1st attempt): 0 2 Best Gaze (If aphasic, use reflexive mvmts.): 0 3 Visual: 2 4 Facial Palsy: 0 5 Motor Arm Right (UN = amputation/fusion): 0 5 Motor Arm Left: 1 6 Motor Leg Right: 0 6 Motor Leg Left: 3 7 Limb ataxia (Only + if out of proportion): 0 8 Sensory (Aphasia/stupor=0 or 1, coma=2): 1 9 Best Language: 0 10 Dysarthria (mute, coma=2, intubated=UN): 0 11 Extinction and Inattention (only scored if +): 0 Total Score: 7 General: Well nourished, Well developed Head: Normocephalic, Atraumatic Eyes: Perrl, EOMI ENT: Moist mucous membranes, No rhinorrhea Neck: Supple, Nontender, No JVD, - - no carotid bruits Cardiovascular: No murmurs, Irregular. Negative for: Tachycardia Respiratory: No distress, CTA bilaterally, Chest nontender Abdomen: Soft, Nontender, Nondistended, Normal bowel sounds Back: Nontender, Normal Inspection Extremities: Nontender, No edema Skin: Normal color, No rash, No Trauma Neurological: Alert, Oriented x3, Parasthesia - LLE, LUE, left lower face, Weakness - LLE and LUE Psychological: Normal affect, Normal Mood Diagnostic/Tx/Re-eval - Rhythm Strip Rhythm Strip: Sinus Rhythm Rate: 65 Ectopy: PVC(s) - EKG Initial EKG Interpretation: Sinus Rhythm, No Acute Injury Pattern, - - borderline prolonged QTc - Medical Decision Making Stroke Team Activated: Yes Reviewed Inclusion/Exclusion criteria: Yes Was Patient considered for Endovascular Intervention?: Yes - Stat CTA obtained, negative for LVO - call received from radiologist @ 1257 IV Alteplase (t-PA) Administered: No - out of window; discussed with Dr. Purdy, [facility] tele[facility]neurology EKG is frequent ectopy but she is not in atrial fib. She has had no further episodes of chest pain and she is a fairly poor historian, it is possible she is simply feeling the PVCs. Her enzymes are negative and her mediastinum appears within normal limits on the chest x-ray, CT angiography and included the aortic arch which shows no dissection. Her labs are unremarkable, on reevaluation clinically neurologically she is unchanged. Discussed with [facility] tele-neurology Dr. Purdy who agrees patient is not an IV TPA candidate and given the lack of an LVO, may be admitted locally for further stroke work-up, or transferred if necessary. Plan is for admission. Prior to admission, the patient's weakness is improving but still present. She also states that the visual disturbance has been present for a week or 2 and is not new since these left sided weak/paresthesias symptoms. Critical care time (excluding procedures): 30-74 minutes - 40 minutes, including time spent discussing with patient, consultants, arranging admission, performing direct patient care to bedside ED Disposition - Plan for ED Patient: Disposition: [facility] Diagnosis: Acute ischemic right MCA stroke, Intermittent chest pain Referrals: Ino Silva Chi, MD [Primary Care Provider] -
[2018-10-03 12:39] LABS: Absolute Lymphocyte Count 2.95 X10^3/uL (0.83-4.51); Absolute Neutrophil Count 4.9 X10^3/uL (2.0-7.7); Basophil# 0.04 X10^3/uL; Basophil% 0.5 % (0-1); Eosinophil# 0.17 X10^3/uL; Hemoglobin 13.1 g/dL (12.0-15.0); Lymphocyte # 2.95 X10^3/ul (4.0); Lymphocyte % 34.7 % (19-41); Mean Corp Hgb Conc 32.8 g/dL (32-36); Mean Corpuscular Hgb 29.8 pg (27.0-32.0); Mean Corpuscular Volume 90.9 fL (81-99); Mean Platelet Vol. 11.4 fl (6.2-12.0); Monocyte# 0.45 X10^3/uL; Monocyte% 5.3 % (0-10); NRBC Flagged by Analyzer 0 % (0-5); Neutrophil # 4.88 X10^3/uL (2.7-7.7); Neutrophil % 57.3 % (47-70); Platelet Count 223 K/mm3 (150-450); RBC Distribution Width CV 13.5 % (11.6-14.6); RBC Distribution Width SD 44.9 fl (35.1-43.9); White Blood Count 8.5 K/mm3 (4.4-11.0)
[2018-10-03 12:44] LABS: Prothrombin Time (Protime)PT. 13.2 SECONDS (11.7-14.9)
[2018-10-03 12:45] LABS: Partial Thromboplast Time 26.9 Seconds (24.1-36.2)
[2018-10-03 12:53] LABS: Anion Gap 5 (5-15); BUN 14 mg/dL (7-18); BUN/Creat Ratio 15.7 RATIO (10-20); Calcium,Total 8.1 mg/dL (8.5-10.1); Chloride 109 mmol/L (98-107); Creatinine, Serum 0.89 mg/dL (0.55-1.02); EST Glomerular Filtration Rate 66 mL/min (>60); Est Glom Filt Rate - Afr Amer 80 mL/min (>60); Estimated Creatinine Clearance 41.64 ml/min; Glucose 182 mg/dL (74-106); Potassium 3.9 mmol/L (3.5-5.1); Sodium Level 141 mmol/L (136-145)
--- NOTE | 2018-10-03 13:05 | ED.RN ---
DAUGHTER TIMUR CALLED AND UPDATED ON PATIENT CONDITION PER PATIENT REQUEST. CALL TRANSFERRED TO PHONE IN ROOM, PT SPEAKING WITH DAUGHTER ON THE PHONE NOW.
--- NOTE | 2018-10-03 14:16 | NURSING ---
114 JO ANN ISCHEMIC CVA
--- NOTE | 2018-10-03 14:30 | ED.RN ---
bedside report given to JOHN Nelson on PCU. NIH done at bedside.
--- NOTE | 2018-10-03 14:38 | HP.PCM_ITS ---
Problem List (1) CVA (cerebral vascular accident) Status: Acute Qualifiers: CVA mechanism: unspecified Qualified Code(s): I63.9 - Cerebral infarction, unspecified History of Present Illness Date of Admission: 10/03/18 Chief Complaint: Slurred speech. Left sided weakness. The patient is a 73 year old F presents with slurred speech and left-sided weakness. Symptoms began at 1500 on July 02. Patient was hoping the symptoms would go away but they persisted today when she woke up and presented to the emergency room. In the emergency room, patient underwent a work-up for stroke in the CAT scan was negative for any acute stroke. Bedside swallow evaluation was normal. Patient denies ever having had a stroke before. Has been complaining of a headache during this time but also been noticing some floaters in her right visual field. Denies ever having had floaters before. [] Past Medical History Past Medical History (Chronic Problems): Chronic Problems (Last Updated 07/14/18 @ 09:57 by Lizbet Owen) DDD (degenerative disc disease), lumbar (Chronic) Depression with anxiety (Chronic) COPD (chronic obstructive pulmonary disease) (Chronic) Diastolic dysfunction (Chronic) Atherosclerosis of coronary artery bypass graft without angina pectoris (Chronic) Dlc-YJH-AFA-Mid RCA w/ 2.0 x 10 mm Angiosculpt and 2.5 x 38 mm Promus Synergy Stent, BRIANA-Prox RCA 2.5 x 12 mm Prmomus Synergy Stent 12/28/17 DBJ-JZI-Vdfhg Cx w/ 2.5 x 24mm Promus 03/12/2011, KNN-Fibbo-NRS;PCI-Prox LAD; CABG x 3 SY-LAD, SVG-OM and SVG-RCA Non-rheumatic tricuspid valve insufficiency (Chronic) Secondary pulmonary arterial hypertension (Chronic) Nicotine dependence (Chronic) Hyperlipidemia (Chronic) Atherosclerosis of coronary artery of [place] heart with angina pectoris (Chronic) Aib-RGW-BDH-Mid RCA w/ 2.0 x 10 mm Angiosculpt and 2.5 x 38 mm Promus Synergy Stent, BRIANA-Prox RCA 2.5 x 12 mm Prmomus Synergy Stent 12/28/17 LYF-YCK-Bsjdm Cx w/ 2.5 x 24mm Promus 03/12/2011, WLM-Vqzvt-TST;PCI-Prox LAD; CABG x 3 SY-LAD, SVG-OM and SVG-RCA Essential (primary) hypertension (Chronic) TIA (transient ischemic attack) (Chronic) Medical History: Medical History (Last Reviewed 10/03/18 @ 14:46 by Fernando Malone DO) Non-rheumatic tricuspid valve insufficiency (Chronic) I36.1 Secondary pulmonary arterial hypertension (Chronic) I27.21 Nicotine dependence (Chronic) F17.200 Hyperlipidemia (Chronic) E78.5 Atherosclerosis of coronary artery of [place] heart with angina pectoris (Chronic) I25.119 Bag-YZV-MST-Mid RCA w/ 2.0 x 10 mm Angiosculpt and 2.5 x 38 mm Promus Synergy Stent, BRIANA-Prox RCA 2.5 x 12 mm Prmomus Synergy Stent 12/28/17 KYN-NWM-Yjkma Cx w/ 2.5 x 24mm Promus 03/12/2011, NWA-Znoxa-SWA;PCI-Prox LAD; CABG x 3 SY-LAD, SVG-OM and SVG-RCA Essential (primary) hypertension (Chronic) I10 TIA (transient ischemic attack) (Chronic) H/O: pneumonia Z87.01 Anxiety and depression F41.9, F32.9 Back pain M54.9 Benzodiazepine dependence F13.20 COPD (chronic obstructive pulmonary disease) J44.9 Hypothyroidism E03.9 Obstructive sleep apnea G47.33 Allergies morphine Allergy (Verified 10/03/18 12:27) PT UNSURE Penicillins Allergy (Verified 10/03/18 12:27) Hives tramadol HCl [From Ultram] Allergy (Verified 10/03/18 12:27) PT UNSURE bupropion [From Wellbutrin] Adverse Reaction (Verified 10/03/18 12:27) hallucinations Home Medications: Ambulatory Orders Medication Instructions Recorded Aspirin E.C. [Ecotrin] 81 mg PO DAILY@0800 09/06/17 Levothyroxine [Synthroid] 75 mcg PO DAILY 09/06/17 citalopram 40 mg tablet 40 mg PO DAILY 12/18/17 clopidogrel 75 mg tablet 75 mg PO QODAY 12/18/17 esomeprazole magnesium 20 mg 40 mg PO DAILY 12/18/17 capsule,delayed release lisinopril 40 mg tablet 40 mg PO DAILY tab 12/18/17 Atenolol [Tenormin (beta estefania)] 25 mg PO DAILY 01/05/18 Atorvastatin Calcium 40 mg PO DAILY 01/05/18 Ondansetron [Zofran Odt] 4 mg PO DAILY 01/06/18 Citalopram [Celexa] 20 mg PO LUNCH 06/27/18 Lorazepam [Ativan] 1 mg PO 4X/DAY 06/28/18 Ipratropium/Albuterol Sulfate 3 ml INHALATION Q4H.RT #30 06/29/18 [Duoneb] ampul.neb Sodium Chloride 0.65% [Bibb Nasal 1 spray NASAL PRN PRN #1 spray.btl 06/29/18 [place]] albuterol sulfate 0.63 mg/3 mL 0.63 mg INHALATION Q4H PRN 07/14/18 solution for nebulization Donepezil HCl 5 mg DAILY 10/03/18 Surgical History: Surgical History (Last Reviewed 10/03/18 @ 14:46 by Fernando Malone DO) History of coronary artery stent placement (Resolved) Onset Date: 12/28/17 Z95.5 Ibx-CCB-ZND-Mid RCA w/ 2.0 x 10 mm Angiosculpt and 2.5 x 38 mm Promus Synergy Stent, BRIANA-Prox RCA 2.5 x 12 mm Prmomus Synergy Stent 12/28/17 DBW-CFI-Odecl Cx w/ 2.5 x 24mm Promus 03/12/2011, MVB-Bzpdt-MFX;PCI-Prox LAD; History of coronary artery bypass graft x 3 (Resolved) Z95.1 CABG x 3 SY-LAD, SVG-OM and SVG-RCA History of appendectomy Z90.49 History of left heart catheterization Onset Date: 12/28/17 Z98.890 SY graft to the Mid LAD is patent Saphenous Vein graft to the 1st OM is totally occluded Saphenous Vein graft to the RCA is totally occluded Hx of cholecystectomy Z90.49 Surgical History: angioplasty - A total of 5 stents, appendectomy, cholecystectomy, coronary bypass surgery - 3 vessel bypass surgery, - - Tubal ligation; and partial oopherectomy. thyroidectomy. 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 Maternal History Items: Cancer - Mother of cancer at age 72., Stroke Review of Systems Constitutional: Denies: Chills, Fever, Weight Change Eyes: Denies: Blurred vision, Double vision HEENT: Denies: Head Aches, Sinus Congestion, Sinus Drainage Cardiovascular: Denies: Chest Pain, Palpitations Respiratory: Denies: Cough, Shortness of breath at rest, Sputum production Gastrointestinal: Denies: Abdominal Pain, Nausea, Vomiting Musculoskeletal: Denies: Joint Pain, Joint Tenderness Skin: Denies: Rash, Wounds Neurological: Reports: Slurred speech, Focal weakness - left sided, - - floaters in visual field Psychiatric: Reports: Anxiety. Denies: Depression Endocrine: Denies: Change in Body Habitus, Heat/ Cold Intolerance Hematologic/ Lymphatic: Denies: Easy Bruising, Easy Bleeding, Hx of blood clot Comment: A 10 point review of systems were negative except as mentioned in the history of present illness and the other review of systems. VTE Information - Inpt Only VTE Present on Admission: No VTE Mechan Device Prophylaxis: None VTE Pharm Prophylaxis ordered?: Yes - Physical Exam General: Alert, No apparent distress, Well developed, Well nourished HEENT: Atraumatic, PERRLA, EOMI, Normocephalic Oral: Moist Mucosa, No Gingival or Mucosal Lesions/ Ulcerations, - - Poor dentition Neck: Negative Carotid Bruits, No Nodes Lungs: Clear to auscultation, Normal air movement, No rhonchi, No wheeze, No rales, Diminished Cardiovascular: Regular rate, Regular Rhythm, Normal S1, Normal S2, No murmurs Abdomen: Bowel Sounds Present, Soft, Non Tender, Non-Distended, Obese Extremities: No edema, No Calf Tenderness Skin: No rashes, No breakdown Musculoskeletal: No Tenderness to Palpation of Joints or Extremities, No Muscle Wasting Neurological: Cranial nerves II-XII grossly intact, Sensory exam intact to light touch and pain, - - Muscle strength 5 out of 5 in the bilateral upper extremities, right lower extremity. 4-5 in the left lower extremity. Psych/Mental Status: Normal Affect, Appropriate Vital Signs Temp Pulse Resp BP Pulse Ox 36.6 C 54 L 20 H 175/72 H 96 10/03/18 12:16 10/03/18 14:15 10/03/18 14:15 10/03/18 14:15 10/03/18 14:15 Oxygen Delivery Method Room Air Weight: 73.8 kg Body Mass Index (BMI) 31.7 Finger Stick Blood Glucose 185 Laboratory Tests Past 24 Hrs 10/03/18 10/03/18 10/03/18 12:30 12:30 12:30 WBC 8.5 RBC 4.40 Hgb 13.1 Hct 40.0 MCV 90.9 MCH 29.8 MCHC 32.8 RDW Std Deviation 44.9 H RDW Coeff of John 13.5 Plt Count 223 MPV 11.4 Immature Gran % (Auto) 0.200 Neut % (Auto) 57.3 Lymph % (Auto) 34.7 [place] % (Auto) 5.3 Eos % (Auto) 2.0 Baso % (Auto) 0.5 Absolute Neuts (auto) 4.9 Absolute Lymphs (auto) 2.95 Nucleated RBC % 0 PT 13.2 INR 1.0 APTT 26.9 Sodium 141 Potassium 3.9 Chloride 109 H Carbon Dioxide 27.0 Anion Gap 5 BUN 14 Creatinine 0.89 Estim Creat Clear Calc 41.64 Est GFR (MDRD) Af Amer 80 Est GFR (MDRD) Non-Af 66 BUN/Creatinine Ratio 15.7 Glucose 182 H Calcium 8.1 L Troponin I < 0.015 EKG personally reviewed and showed normal sinus rhythm with no acute changes. Clinical Impression(s) from Imaging Studies Brain CT 10/03/18 12:32 IMPRESSION: 1. No acute intracranial hemorrhage or mass effect. 2. Central parenchymal volume loss. White matter changes that are nonspecific but most commonly associated with chronic small vessel ischemic disease. N.B. : The above information has been verbally conveyed by Jacob Williamson MD (Brooks) to Gurmeet Carrillo on 10/03/2018 12:58:20 (ET). Electronically Signed: Jacob Williamson MD (Brooks) at 13:01 EDT , Service support , ADDENDUM: 10/03/18 1134 IMPRESSION: 1. No acute intracranial hemorrhage or mass effect. 2. Central parenchymal volume loss. White matter changes that are nonspecific but most commonly associated with chronic small vessel ischemic disease. N.B. : The above information has been verbally conveyed by Jacob Willimason MD (Brooks) to Gurmeet Carrillo on 10/03/2018 12:58:20 (ET). Electronically Signed: Jacob Williamson MD (Brooks) at 13:01 EDT , Service support , Chest X-Ray 10/03/18 12:32 IMPRESSION: Stable, nonocclusive portable x-ray examination of the chest. Electronically Signed: Jacob Williamson MD (Brooks) at 13:07 EDT , Service support , Head/Neck CTA 10/03/18 12:32 IMPRESSION: 1. No intracranial arterial thrombosis or hemodynamically significant stenosis. 2. 65 % stenosis at the origin of the left common carotid artery. 3. Bilateral carotid bulb and proximal ICA atherosclerosis without hemodynamically significant stenosis. No arterial dissection. N.B. : The above information has been verbally conveyed by Jacob Williamson MD (Brooks) to Gurmeet Carrillo on 10/03/2018 13:04:23 (ET). Electronically Signed: Jacob Williamson MD (Brooks) at 13:05 EDT , Service support , ADDENDUM: 10/03/18 1312 IMPRESSION: 1. No intracranial arterial thrombosis or hemodynamically significant stenosis. 2. 65 % stenosis at the origin of the left common carotid artery. 3. Bilateral carotid bulb and proximal ICA atherosclerosis without hemodynamically significant stenosis. No arterial dissection. N.B. : The above information has been verbally conveyed by Jacob Williamson MD (Brooks) to Gurmeet Carrillo on 10/03/2018 13:04:23 (ET). Electronically Signed: Jacob Williamson MD (Brooks) at 13:05 EDT , Service support , ADDENDUM: 10/03/18 1312 IMPRESSION: 1. No intracranial arterial thrombosis or hemodynamically significant stenosis. 2. 65 % stenosis at the origin of the left common carotid artery. 3. Bilateral carotid bulb and proximal ICA atherosclerosis without hemodynamically significant stenosis. No arterial dissection. N.B. : The above information has been verbally conveyed by Jacob Williamson MD (Brooks) to Gurmeet Carrillo on 10/03/2018 13:04:23 (ET). Electronically Signed: Jacob Williamson MD (Brooks) at 13:05 EDT , Service support , Assessment/Plan All Active Problems (Last Updated 07/14/18 @ 09:57 by Lizbet Owen) History of thyroid cancer (Resolved) Acute ischemic right MCA stroke (Acute) Intermittent chest pain (Acute) CVA (cerebral vascular accident) (Acute) Community acquired pneumonia (Acute) Elevated troponin (Acute) History of coronary artery stent placement (Resolved 12/28/17) History of coronary artery bypass graft x 3 (Resolved) Chest pain (Resolved) Dyspnea (Resolved) 1. Suspected acute stroke * Time of onset is like around 1499October 02 * Not a candidate for TPA given projected time of onset * Patient already aspirin and clopidogrel and will continue. Continue with 40 mg of atorvastatin * Check MRI of the brain, MRA of the head neck, neurology consultation and therapy evaluation. 2. Hyperglycemia * Appears to be chronic no official diagnosis of diabetes but has had elevated blood sugars in the past * Start sliding scale insulin * Check an A1c as one is not currently in our system 3. Coronary artery disease * Stable. Continue with dual antiplatelet therapy plus atorvastatin 4. VTE prophylaxis: Patient is moderate risk. Low molecular weight heparin 6. Advanced care planning: Confirmed with the patient that she is DNR Comfort Care arrest. Code Visit Inpatient E&M: 22763 Init Hosp L3
--- NOTE | 2018-10-03 14:45 | ECHOD_ITS ---
Reason For Study: TIA/CVA Procedure This was a 2D Doppler, Color Flow transthoracic echocardiogram. Exam performed portable in patient room. Left Ventricle Normal LV size. Mild concentric left ventricular hypertrophy. Left ventricular systolic function is normal. The estimated ejection fraction is 65 %. No regional wall motion abnormalities noted. Right Ventricle Normal RV size. Normal systolic function. Atria The left atrium is mildly enlarged. Normal right atrium. Mitral Valve Normal mitral valve. Tricuspid Valve Normal tricuspid valve. Mild (1+) tricuspid valve insufficiency. Pulmonary artery systolic pressure is 45 mmHg. Aortic Valve Normal aortic valve. Trisinus/trileaflet aortic valve. Pulmonic Valve Normal pulmonic valve. Great Vessels Normal aortic root. The pulmonary artery is normal size. Normal inferior vena cava. Pericardium/Pleural No pericardial effusion. MMode/2D Measurements & Calculations LVIDd: 4.5 cm IVSd: 1.2 cm LA dimension: 4.6 cm LVIDs: 2.9 cm LVPWd: 1.2 cm FS: 36.1 % LAV(MOD-bp): 77.8 ml LA A4 area: 23.7 cm2 RA A4 area: 13.6 cm2 LAV(MOD-bp) Indexed: 46.1 ml/m2 LAV(MOD-sp2): 75.8 ml LAV(MOD-sp4): 73.7 ml Time Measurements MV dec time: 0.16 sec Doppler Measurements & Calculations MV E max nabil: 105.2 cm/sec Lat Peak E' Nabil: 7.6 cm/sec Med Peak E' Nabil: 4.9 cm/sec MV A max nabil: 46.9 cm/sec E/E' lat: 13.8 E/E' med: 21.4 MV E/A: 2.2 MV V2 max: 134.8 cm/sec MV P1/2t max nabil: 133.9 cm/sec Ao V2 max: 111.9 cm/sec MV max P.3 mmHg MV P1/2t: 64.9 msec Ao max P.0 mmHg MV V2 mean: 58.6 cm/sec MV dec slope: 603.9 cm/sec2 MV mean P.7 mmHg MVA(P1/2t): 3.4 cm2 MV V2 VTI: 31.6 cm LV V1 max: 83.8 cm/sec PA V2 max: 88.6 cm/sec TR max nabil: 335.8 cm/sec LV V1 max P.8 mmHg TR max P.1 mmHg Interpretation Summary Normal LV size. Mild concentric left ventricular hypertrophy. Left ventricular systolic function is normal. The estimated ejection fraction is 65 %. Pulmonary artery systolic pressure is 45 mmHg. Mild (1+) tricuspid valve insufficiency. The left atrium is mildly enlarged. Ordering Physician: Fernando Malone Referring Physician: Ino Silva Chi Performed By: Weston Rangel RCS
[2018-10-03] MEDS: LORazepam 1 MG Tablet PO ×2 (15:54→20:07)
[2018-10-03 15:56] LABS: Bedside Glucose 74 mg/dL (70-110)
[2018-10-03] MEDS: Donepezil HCl 5 MG Tablet PO (17:08)
[2018-10-03 18:40] LABS: Magnesium 1.7 mg/dL (1.6-2.6)
[2018-10-03] MEDS: Ipratropium/Albuterol Sulfate 3 ML AMPUL.NEB INHALATION (19:33)
[2018-10-03] MEDS: Atorvastatin Calcium 40 MG Tablet PO (20:06)
[2018-10-03 22:21] LABS: Bedside Glucose 120 mg/dL (70-110)
[2018-10-04] VITALS (7 sets, daily range): BP systolic 156–162; BP diastolic 70–80; PULSE 56–69; RESP 16–19; TEMP 36.6–37.2; O2SAT 94–95; BMI 29.8
[2018-10-04] MEDS: 0.9% NaCl IVPB Med Flush (250 mL) 15 ML IV (05:29)
[2018-10-04] MEDS: 0.9% NaCl Peripheral Flush Adult/Peds IV (05:33)
[2018-10-04] MEDS: Levothyroxine 75 MCG Tablet PO (05:34)
[2018-10-04 06:42] LABS: Cholesterol 117 mg/dL (200); High Density Lipoprotein 33 mg/dL; Triglycerides 131 mg/dL; Very Low Density Lipoprotein 26 mg/dL (5-40)
[2018-10-04 06:51] LABS: Bedside Glucose 100 mg/dL (70-110)
--- NOTE | 2018-10-04 08:14 | MRI_ITS ---
STUDY: MRI BRAIN WITHOUT CONTRAST REASON FOR EXAM: Female, 73 years old. CVA. CVA. Slurred speech. Left-sided weakness. Right eye floaters and headache x2 days. TECHNIQUE: Standardized multiplanar fat and water weighted pulse sequences were obtained. COMPARISON: 12/08/2015. CTA head and neck with contrast 10/03/2018. FINDINGS: No restricted diffusion to suspect acute or subacute ischemic infarct. Normal size of the ventricles and extra-axial spaces for the patient's age. Multiple confluent T2 FLAIR hyperintensity foci in the white matter of both cerebral hemispheres are chronic white matter ischemic changes. Old lacunar cystic infarct in the right wang radiata. No midline shift and no mass effects. Normal bilateral basal ganglia. Normal thalami. There is no extra-axial fluid accumulation. Normal flow voids within the major intracranial circulation suggesting patency by spin echo criteria. Normal sella turcica, pituitary gland, infundibular stalk, optic chiasm and hypothalamus. Normal tectal plate and pineal gland. Normal midbrain, julissa and medulla. Normal cerebellum. Normal basal cisterns. Normal bilateral temporal bones. Normal bilateral internal auditory canals. No demonstrated orbital abnormality, within the constraints of a routine brain study. Normal visualized paranasal sinuses. Normal calvarium and skull base. Normal visualized soft tissue structures. Normal visualized upper cervical spine. MRI/Brain without Contrast IMPRESSION: 1. No MRI evidence of acute or subacute ischemic infarct or acute intracranial abnormality. 2. Extensive confluent chronic white matter ischemic changes in both cerebral hemispheres and old lacunar cystic infarct in the right wang radiata. 3. No significant interval change when compared to 12/08/2015. Electronically Signed: Julian Ford MD at 10:29 EDT , Service support ,
[2018-10-04 08:17] LABS: Hemoglobin A1c 5.7 % (4.2-6.3)
[2018-10-04] MEDS: Aspirin E.C. 81 MG Tablet PO (08:54)
[2018-10-04] MEDS: Pantoprazole Sodium 40 MG Tablet PO (08:54)
[2018-10-04] MEDS: Citalopram 40 MG TABLET PO (08:54)
[2018-10-04] MEDS: Ondansetron ODT 4 MG Tablet PO (08:54)
[2018-10-04] MEDS: LORazepam 1 MG Tablet PO ×2 (08:54→12:18)
[2018-10-04] MEDS: Enoxaparin 40 MG/0.4 ML Syringe SC (08:54)
[2018-10-04] MEDS: Lisinopril 40 MG Tablet PO (08:54)
[2018-10-04] MEDS: Atenolol 25 MG Tablet PO (08:54)
[2018-10-04] MEDS: Ipratropium/Albuterol Sulfate 3 ML AMPUL.NEB INHALATION (10:47)
--- NOTE | 2018-10-04 11:14 | CON.PCM_ITS ---
Problem List (1) TIA (transient ischemic attack) Status: Acute Reason for Consult Date of Consultation: 10/04/18 Reason for Consultation: TIA History of Present Illness: The patient is a 73 year old F with PMH HTN, HLD, history of TIA, CAD status post stents, CABG, COPD, depression/anxiety, tobacco abuse admitted with dizziness and left-sided numbness/weakness. Per patient she noticed that her symptoms began around 3 PM on 10/02/2018 when she started having dizziness and had left-sided numbness along with speech disturbances, then she went to sleep with the symptoms and when she woke up the next morning symptoms were persistent and so she decided to come to the ED, and per patient later her symptoms resolved within 24 hours. At present patient denies any focal motor weakness, sensory loss, visual disturbances, speech disturbances, facial weakness, headache or dizziness. Per patient she has been on aspirin and Plavix for about 10 years since her CABG, she lives with her boyfriend, denies any frequent falls, does drive and does not need any assistance for her ADLs. MRI brain done on admission did not show any acute stroke but showed confluent chronic white matter changes with old lacunar infarct and right coronary radiata. CTA head/neck reported no hemodynamically significant stenosis of the bilateral ICA, percent right ICA origin, 40% left ICA origin stenosis, but per report moderate to severe 65% stenosis of the origin of the left common carotid artery. [] Past Medical History Past Medical History (Chronic Problems): Chronic Problems (Last Reviewed 10/03/18 @ 14:46 by Fernando Malone DO) DDD (degenerative disc disease), lumbar (Chronic) Depression with anxiety (Chronic) COPD (chronic obstructive pulmonary disease) (Chronic) Diastolic dysfunction (Chronic) Atherosclerosis of coronary artery bypass graft without angina pectoris (Chronic) Fsr-ZPX-RZX-Mid RCA w/ 2.0 x 10 mm Angiosculpt and 2.5 x 38 mm Promus Synergy Stent, BRIANA-Prox RCA 2.5 x 12 mm Prmomus Synergy Stent 12/28/17 OHY-GCC-Mvevy Cx w/ 2.5 x 24mm Promus 03/12/2011, QQH-Jcbwr-NJF;PCI-Prox LAD; CABG x 3 SY-LAD, SVG-OM and SVG-RCA Non-rheumatic tricuspid valve insufficiency (Chronic) Secondary pulmonary arterial hypertension (Chronic) Nicotine dependence (Chronic) Hyperlipidemia (Chronic) Atherosclerosis of coronary artery of [place] heart with angina pectoris ( Chronic) Vgz-HMF-PAV-Mid RCA w/ 2.0 x 10 mm Angiosculpt and 2.5 x 38 mm Promus Synergy Stent, BRIANA-Prox RCA 2.5 x 12 mm Prmomus Synergy Stent 12/28/17 JMY-HFU-Ttugf Cx w/ 2.5 x 24mm Promus 03/12/2011, VMG-Yfjon-TSP;PCI-Prox LAD; CABG x 3 SY-LAD, SVG-OM and SVG-RCA Essential (primary) hypertension (Chronic) TIA (transient ischemic attack) (Chronic) Medical History: Medical History (Last Reviewed 10/03/18 @ 14:46 by Fernando Malone DO) Non-rheumatic tricuspid valve insufficiency (Chronic) I36.1 Secondary pulmonary arterial hypertension (Chronic) I27.21 Nicotine dependence (Chronic) F17.200 Hyperlipidemia (Chronic) E78.5 Atherosclerosis of coronary artery of [place] heart with angina pectoris (Chronic) I25.119 Ola-CDV-RDD-Mid RCA w/ 2.0 x 10 mm Angiosculpt and 2.5 x 38 mm Promus Synergy Stent, BRIANA-Prox RCA 2.5 x 12 mm Prmomus Synergy Stent 12/28/17 DRE-STB-Kxbxe Cx w/ 2.5 x 24mm Promus 03/12/2011, LEL-Xsngh-IUX;PCI-Prox LAD; CABG x 3 SY-LAD, SVG-OM and SVG-RCA Essential (primary) hypertension (Chronic) I10 TIA (transient ischemic attack) (Chronic) H/O: pneumonia Z87.01 Anxiety and depression F41.9, F32.9 Back pain M54.9 Benzodiazepine dependence F13.20 COPD (chronic obstructive pulmonary disease) J44.9 Hypothyroidism E03.9 Obstructive sleep apnea G47.33 Allergies morphine Allergy (Verified 10/03/18 12:27) PT UNSURE Penicillins Allergy (Verified 10/03/18 12:27) Hives tramadol HCl [From Ultram] Allergy (Verified 10/03/18 12:27) PT UNSURE bupropion [From Wellbutrin] Adverse Reaction (Verified 10/03/18 12:27) hallucinations Home Medications: Ambulatory Orders Medication Instructions Recorded Aspirin E.C. [Ecotrin] 81 mg PO DAILY@0800 09/06/17 Levothyroxine [Synthroid] 75 mcg PO DAILY 09/06/17 citalopram 40 mg tablet 40 mg PO DAILY 12/18/17 clopidogrel 75 mg tablet 75 mg PO QODAY 12/18/17 esomeprazole magnesium 20 mg 40 mg PO DAILY 12/18/17 capsule,delayed release lisinopril 40 mg tablet 40 mg PO DAILY tab 12/18/17 Atenolol [Tenormin (beta estefania)] 25 mg PO DAILY 01/05/18 Atorvastatin Calcium 40 mg PO DAILY 01/05/18 Ondansetron [Zofran Odt] 4 mg PO Q6H PRN PRN 01/06/18 Citalopram [Celexa] 20 mg PO LUNCH 06/27/18 Lorazepam [Ativan] 1 mg PO 4X/DAY 06/28/18 Ipratropium/Albuterol Sulfate 3 ml INHALATION Q4H.RT #30 06/29/18 [Duoneb] ampul.neb Sodium Chloride 0.65% [[place] Nasal 1 spray NASAL PRN PRN #1 spray.btl 06/29/18 [place]] albuterol sulfate 0.63 mg/3 mL 0.63 mg INHALATION Q4H PRN 07/14/18 solution for nebulization Donepezil HCl 5 mg PO DINNER 10/03/18 Surgical History: Surgical History (Last Reviewed 10/03/18 @ 14:46 by Fernando Malone DO) History of coronary artery stent placement (Resolved) Onset Date: 12/28/17 Z95.5 Xcj-AYQ-MNP-Mid RCA w/ 2.0 x 10 mm Angiosculpt and 2.5 x 38 mm Promus Synergy Stent, BRIANA-Prox RCA 2.5 x 12 mm Prmomus Synergy Stent 12/28/17 WMR-CWG-Gpyjc Cx w/ 2.5 x 24mm Promus 03/12/2011, IDI-Hhzdp-MWV;PCI-Prox LAD; History of coronary artery bypass graft x 3 (Resolved) Z95.1 CABG x 3 SY-LAD, SVG-OM and SVG-RCA History of appendectomy Z90.49 History of left heart catheterization Onset Date: 12/28/17 Z98.890 SY graft to the Mid LAD is patent Saphenous Vein graft to the 1st OM is totally occluded Saphenous Vein graft to the RCA is totally occluded Hx of cholecystectomy Z90.49 Surgical History: angioplasty - A total of 5 stents, appendectomy, cholecystectomy, coronary bypass surgery - 3 vessel bypass surgery, - - Tubal ligation; and partial oopherectomy. thyroidectomy. 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 Maternal History Items: Cancer - Mother of cancer at age 72., Stroke Review of Systems Constitutional: Reports: - - Complete ROS negative except as documented in HPI Patient Problems: Active and Suspected Problems (Last Reviewed 10/03/18 @ 14:46 by Fernando Malone DO) Acute ischemic right MCA stroke (Acute) Intermittent chest pain (Acute) TIA (transient ischemic attack) (Acute) - Physical Exam General: Alert HEENT: Normocephalic Neck: Supple Lungs: Normal air movement Cardiovascular: Normal S1, Normal S2 Abdomen: Bowel Sounds Present Extremities: No cyanosis Neurological: - - Conscious, alert, AOA x3, CN II through XII grossly intact, power 5 x 5 both upper and lower extremities, no sensory loss, no cerebellar signs, gait deferred, reflexes + B/L B/S/T/K/A, NIHSS 0 at present, mRS 0 at baseline Psych/Mental Status: Normal Affect Vital Signs Temp Pulse Resp BP Pulse Ox 99 F 56 L 19 H 162/70 H 94 10/04/18 08:34 10/04/18 11:10 10/04/18 11:10 10/04/18 08:34 10/04/18 11:09 Oxygen Delivery Method Room Air Weight: 71.668 kg Body Mass Index (BMI) 29.8 Finger Stick Blood Glucose 185 Intake and Output for Last 24 Hours 10/02/18 10/03/18 10/04/18 23:59 23:59 23:59 Intake Total 1100 / 1100 226.25 / 226.25 Balance 1100 / 1100 226.25 / 226.25 Laboratory Tests Past 24 Hrs 10/03/18 10/03/18 10/03/18 12:30 12:30 12:30 WBC 8.5 RBC 4.40 Hgb 13.1 Hct 40.0 MCV 90.9 MCH 29.8 MCHC 32.8 RDW Std Deviation 44.9 H RDW Coeff of John 13.5 Plt Count 223 MPV 11.4 Immature Gran % (Auto) 0.200 Neut % (Auto) 57.3 Lymph % (Auto) 34.7 Graham % (Auto) 5.3 Eos % (Auto) 2.0 Baso % (Auto) 0.5 Absolute Neuts (auto) 4.9 Absolute Lymphs (auto) 2.95 Nucleated RBC % 0 PT 13.2 INR 1.0 APTT 26.9 Sodium 141 Potassium 3.9 Chloride 109 H Carbon Dioxide 27.0 Anion Gap 5 BUN 14 Creatinine 0.89 Estim Creat Clear Calc 41.64 Est GFR (MDRD) Af Amer 80 Est GFR (MDRD) Non-Af 66 BUN/Creatinine Ratio 15.7 Glucose 182 H Hemoglobin A1c Calcium 8.1 L Magnesium Troponin I < 0.015 Triglycerides Cholesterol LDL Cholesterol VLDL Cholesterol HDL Cholesterol 10/03/18 10/04/18 10/04/18 12:30 05:48 05:48 WBC RBC Hgb Hct MCV MCH MCHC RDW Std Deviation RDW Coeff of John Plt Count MPV Immature Gran % (Auto) Neut % (Auto) Lymph % (Auto) Graham % (Auto) Eos % (Auto) Baso % (Auto) Absolute Neuts (auto) Absolute Lymphs (auto) Nucleated RBC % PT INR APTT Sodium Potassium Chloride Carbon Dioxide Anion Gap BUN Creatinine Estim Creat Clear Calc Est GFR (MDRD) Af Amer Est GFR (MDRD) Non-Af BUN/Creatinine Ratio Glucose Hemoglobin A1c 5.7 Calcium Magnesium 1.7 Troponin I Triglycerides 131 Cholesterol 117 LDL Cholesterol 58 VLDL Cholesterol 26 HDL Cholesterol 33 L POC Glucose 10/04/18 10/03/18 10/03/18 06:35 22:17 15:51 POC Glucose 100 120 H 74 Assessment/Plan All Active Problems (Last Reviewed 10/03/18 @ 14:46 by Fernando Malone DO) History of thyroid cancer (Resolved) Acute ischemic right MCA stroke (Acute) Intermittent chest pain (Acute) CVA (cerebral vascular accident) (Acute) TIA (transient ischemic attack) (Acute) Community acquired pneumonia (Acute) Elevated troponin (Acute) History of coronary artery stent placement (Resolved 12/28/17) History of coronary artery bypass graft x 3 (Resolved) Chest pain (Resolved) Dyspnea (Resolved) The patient is a 73 year old F with PMH HTN, HLD, history of TIA, CAD status post stents, CABG, COPD, depression/anxiety, tobacco abuse admitted with dizziness and left-sided numbness/weakness. Per patient she noticed that her symptoms began around 3 PM on 10/02/2018 when she started having dizziness and had left-sided numbness along with speech disturbances, then she went to sleep with the symptoms and when she woke up the next morning symptoms were persistent and so she decided to come to the ED, and per patient later her symptoms resolved within 24 hours. At present patient denies any focal motor weakness, sensory loss, visual disturbances, speech disturbances, facial weakness, headache or dizziness. Per patient she has been on aspirin and Plavix for about 10 years since her CABG, she lives with her boyfriend, denies any frequent falls, does drive and does not need any assistance for her ADLs. MRI brain done on admission did not show any acute stroke but showed confluent chronic white matter changes with old lacunar infarct and right coronary radiata. CTA head/neck reported no hemodynamically significant stenosis of the bilateral ICA, percent right ICA origin, 40% left ICA origin stenosis, but per report moderate to severe 65% stenosis of the origin of the left common carotid artery. [] Impression Possible TIA Plan ?On aspirin and Plavix for many years, per patient per cardiology recommendation. Bleeding risks discussed in detail ?On Lipitor 40 mg p.o. nightly ?MRI brain no acute stroke ?CTA head/neck reported no hemodynamically significant stenosis of the bilateral ICA, percent right ICA origin, 40% left ICA origin stenosis, but per report moderate to severe 65% stenosis of the origin of the left common carotid artery. ?TTE?EF 65%, LA mildly enlarged ?HbA1c 5.7, LDL 58 ?Vascular surgery consult ?Long-term goal blood pressure less than 130/80 mmHg and goal HbA1c less than 7% ?PT/OT/ST ?Fall precautions ?Further medical management per hospitalist team ?GI/DVT prophylaxis ?Follow-up with neurology as outpatient in 3 to 4 weeks ?Please call with questions if any ?Thank you for allowing us to participate in patient's current management This note has been generated using [employer] software. It may contain incorrect words, spellings and punctuation's that were not noted in the review of the note prior to signing Code Visit Inpatient E&M: 28297 Init Hosp L3
--- NOTE | 2018-10-04 11:29 | PCM.DC ---
- Discharge Diagnoses Current Active Problems: Current Active and Chronic Problems (Last Reviewed 10/03/18 @ 14:46 by Fernando Malone DO) Acute ischemic right MCA stroke (Acute) Intermittent chest pain (Acute) TIA (transient ischemic attack) (Acute) You will use the following diet at home:: Cardiac Your food should be the consistency of: Regular Your liquids should be the consistency of: Regular/Thin Discharge Activity: Return to Normal Activity Additional Instructions: Ask your primary care provider if wellbutrin would be beneficial for smoking cessation. Allergies/Adverse Reactions: Allergies morphine Allergy (Verified 10/03/18 12:27) PT UNSURE Penicillins Allergy (Verified 10/03/18 12:27) Hives tramadol HCl [From Ultram] Allergy (Verified 10/03/18 12:27) PT UNSURE bupropion [From Wellbutrin] Adverse Reaction (Verified 10/03/18 12:27) hallucinations Medications to take at Discharge Aspirin E.C. [Ecotrin] 81 mg PO DAILY@0800 09/06/17 Levothyroxine [Synthroid] 75 mcg PO DAILY 09/06/17 citalopram 40 mg tablet 40 mg PO DAILY 12/18/17 clopidogrel 75 mg tablet 75 mg PO QODAY 12/18/17 esomeprazole magnesium 20 mg capsule,delayed release 40 mg PO DAILY 12/18/17 lisinopril 40 mg tablet 40 mg PO DAILY tab 12/18/17 Atenolol [Tenormin (beta estefania)] 25 mg PO DAILY 01/05/18 Atorvastatin Calcium 40 mg PO DAILY 01/05/18 Ondansetron [Zofran Odt] 4 mg PO Q6H PRN PRN 01/06/18 Citalopram [Celexa] 20 mg PO LUNCH 06/27/18 Lorazepam [Ativan] 1 mg PO 4X/DAY 06/28/18 Ipratropium/Albuterol Sulfate [Duoneb] 3 ml INHALATION Q4H.RT #30 ampul.neb 06/29/18 Sodium Chloride 0.65% [[place] Nasal [place]] 1 spray NASAL PRN PRN #1 spray.btl 06/29/18 albuterol sulfate 0.63 mg/3 mL solution for nebulization 0.63 mg INHALATION Q4H PRN 07/14/18 Donepezil HCl 5 mg PO DINNER 10/03/18 Primary Care Physician: Ino Silva Chi, MD [Primary Care Provider] - Please follow up with your Primary Care Physician in: 1-2 weeks Test Results: Test results from this visit will be discussed in further detail at your follow-up appointment, if applicable. Please Follow Up With: Milton Membreno MD When: 3-4 weeks Proposed Discharge Date: 10/04/18
[2018-10-04] MEDS: Citalopram 20 MG Tablet PO (12:18)
[2018-10-04 12:26] LABS: Bedside Glucose 130 mg/dL (70-110)
--- NOTE | 2018-10-04 13:14 | DS.PCM_ITS ---
Discharge Date and Diagnosis - Problem List Patient Problems: Active and Suspected Problems (Last Reviewed 10/03/18 @ 14:46 by Fernando Malone DO) Acute ischemic right MCA stroke (Acute) Intermittent chest pain (Acute) TIA (transient ischemic attack) (Acute) Date of Admission: 10/03/18 Date of Discharge: 10/04/18 - Primary Discharge Diagnosis Active and Suspected Problems (Last Reviewed 10/03/18 @ 14:46 by Fernando Malone DO) TIA hx CVA Hx thyroid cancer DDD COPD CAD with prior CABG HTN HLD Nicotine abuse - Secondary Discharge Diagnosis Chronic Problems (Last Reviewed 10/03/18 @ 14:46 by Fernando Malone DO) DDD (degenerative disc disease), lumbar (Chronic) Depression with anxiety (Chronic) COPD (chronic obstructive pulmonary disease) (Chronic) Diastolic dysfunction (Chronic) Atherosclerosis of coronary artery bypass graft without angina pectoris (Chronic) Gax-WSS-ZOE-Mid RCA w/ 2.0 x 10 mm Angiosculpt and 2.5 x 38 mm Promus Synergy Stent, BRIANA-Prox RCA 2.5 x 12 mm Prmomus Synergy Stent 12/28/17 SLZ-YTI-Yuigm Cx w/ 2.5 x 24mm Promus 03/12/2011, MHZ-Rpvlc-KYF;PCI-Prox LAD; CABG x 3 SY-LAD, SVG-OM and SVG-RCA Non-rheumatic tricuspid valve insufficiency (Chronic) Secondary pulmonary arterial hypertension (Chronic) Nicotine dependence (Chronic) Hyperlipidemia (Chronic) Atherosclerosis of coronary artery of [place] heart with angina pectoris (Chronic) Fwk-WRR-HYB-Mid RCA w/ 2.0 x 10 mm Angiosculpt and 2.5 x 38 mm Promus Synergy Stent, BRIANA-Prox RCA 2.5 x 12 mm Prmomus Synergy Stent 12/28/17 KVC-LQR-Qkpzb Cx w/ 2.5 x 24mm Promus 03/12/2011, QHH-Reqmj-JGE;PCI-Prox LAD; CABG x 3 SY-LAD, SVG-OM and SVG-RCA Essential (primary) hypertension (Chronic) TIA (transient ischemic attack) (Chronic) Hospital Course and Treatment Imaging Results: 10/04/18 08:14 Brain without Contrast [MRI] Routine CT/Brain/Head without Contrast IMPRESSION: 1. No acute intracranial hemorrhage or mass effect. 2. Central parenchymal volume loss. White matter changes that are nonspecific but most commonly associated with chronic small vessel ischemic disease. CT/CTA Head AND Neck W/ Contrast IMPRESSION: 1. No intracranial arterial thrombosis or hemodynamically significant stenosis. 2. 65 % stenosis at the origin of the left common carotid artery. 3. Bilateral carotid bulb and proximal ICA atherosclerosis without hemodynamically significant stenosis. No arterial dissection. Echo: Interpretation Summary Normal LV size. Mild concentric left ventricular hypertrophy. Left ventricular systolic function is normal. The estimated ejection fraction is 65 %. Pulmonary artery systolic pressure is 45 mmHg. Mild (1+) tricuspid valve insufficiency. The left atrium is mildly enlarged. MRI/Brain without Contrast IMPRESSION: 1. No MRI evidence of acute or subacute ischemic infarct or acute intracranial abnormality. 2. Extensive confluent chronic white matter ischemic changes in both cerebral hemispheres and old lacunar cystic infarct in the right wang radiata. 3. No significant interval change when compared to 12/08/2015. Consults: [facility] - Neuro Operations: None Procedures: 2-D Echocardiogram Summary of Care Provided: Hospital Course: The patient is a 73 year old F with pmhx as above who presented to the ER with c/o slurred speech and left sided weakness that started the day prior. She had persistent symptoms the next day and came to the ER. CT brain was negative. She was admitted to the ER with concern for stroke. She was already on aspirin plavix and lipitor 40 for prior strokes. She underwent an MRI brain and echo which were unremarkable. Her symptoms completely resolved. Neuro was consulted and she was felt to have had a TIA. She had a CTA with 65% stenosis at the origin of left common carotid artery. She was advised to follow up with Dr. Newby, vascular surgery 2 weeks, she will also need follow up with PCP in 1-2 weeks, and neuro in 3-4 weeks. She was discharged home in stable condition. This patient was seen by Larry Pires PA-C under the supervision of Dr. Brown [] Patient Problems: Active and Suspected Problems (Last Reviewed 10/03/18 @ 14:46 by Fernando Malone DO) Acute ischemic right MCA stroke (Acute) Intermittent chest pain (Acute) TIA (transient ischemic attack) (Acute) - Physical Exam General: Alert, Oriented x3, Cooperative HEENT: Atraumatic, PERRLA, EOMI, Normocephalic Neck: Supple, No JVD, Negative Carotid Bruits Lungs: Clear to auscultation, Normal air movement Cardiovascular: Regular rate, No murmurs Abdomen: Bowel Sounds Present, Soft, Non Tender Extremities: No edema, Capillary Refill Less than 3 Seconds Skin: No rashes, No breakdown Musculoskeletal: No Tenderness to Palpation of Joints or Extremities Neurological: Cranial nerves II-XII grossly intact Psych/Mental Status: Normal Affect, Appropriate, Alert and oriented to time, place, person, mood and affect Vital Signs Temp Pulse Resp BP Pulse Ox 99 F 56 L 19 H 162/70 H 94 10/04/18 08:34 10/04/18 11:10 10/04/18 11:10 10/04/18 08:34 10/04/18 11:09 Oxygen Delivery Method Room Air Weight: 158 lb Body Mass Index (BMI) 29.8 Finger Stick Blood Glucose 185 Intake and Output for Last 24 Hours 10/02/18 10/03/18 10/04/18 23:59 23:59 23:59 Intake Total 1100 / 1100 466.25 / 466.25 Balance 1100 / 1100 466.25 / 466.25 Laboratory Tests Past 24 Hrs 10/03/18 10/04/18 10/04/18 12:30 05:48 05:48 Hemoglobin A1c 5.7 Magnesium 1.7 Triglycerides 131 Cholesterol 117 LDL Cholesterol 58 VLDL Cholesterol 26 HDL Cholesterol 33 L POC Glucose 10/04/18 10/04/18 10/03/18 12:09 06:35 22:17 POC Glucose 130 H 100 120 H 10/03/18 15:51 POC Glucose 74 Discharge Diet: Low fat/ Low Cholesterol, 2000 mg Sodium Diet Discharge Activity: Return to Normal Activity Home Medications: Medications to take at Discharge Aspirin E.C. [Ecotrin] 81 mg PO DAILY@0800 09/06/17 Levothyroxine [Synthroid] 75 mcg PO DAILY 09/06/17 citalopram 40 mg tablet 40 mg PO DAILY 12/18/17 clopidogrel 75 mg tablet 75 mg PO QODAY 12/18/17 esomeprazole magnesium 20 mg capsule,delayed release 40 mg PO DAILY 12/18/17 lisinopril 40 mg tablet 40 mg PO DAILY tab 12/18/17 Atenolol [Tenormin (beta estefania)] 25 mg PO DAILY 01/05/18 Atorvastatin Calcium 40 mg PO DAILY 01/05/18 Ondansetron [Zofran Odt] 4 mg PO Q6H PRN PRN 01/06/18 Citalopram [Celexa] 20 mg PO LUNCH 06/27/18 Lorazepam [Ativan] 1 mg PO 4X/DAY 06/28/18 Ipratropium/Albuterol Sulfate [Duoneb] 3 ml INHALATION Q4H.RT #30 ampul.neb 06/29/18 Sodium Chloride 0.65% [[place] Nasal [place]] 1 spray NASAL PRN PRN #1 spray.btl 06/29/18 albuterol sulfate 0.63 mg/3 mL solution for nebulization 0.63 mg INHALATION Q4H PRN 07/14/18 Donepezil HCl 5 mg PO DINNER 10/03/18 Primary Care Physician: Ino Silva Chi, MD [Primary Care Provider] - Please follow up with your Primary Care Physician in: 1-2 weeks Please Follow Up With: Milton Membreno MD When: 3-4 weeks Please Follow Up With: Ino Silva Chi, MD Please Follow Up With: Bridger Newby MD When: 2 weeks Disposition: Home Minutes spent on discharge:: 35 Patient Condition:: Stable Medical Necessity - Tobacco Use Smoking Status: Current every day smoker Tobacco Use: Cigarettes Meaningful Use Info Meaningful Use Diagnoses (Choose all that apply): None applicable
--- NOTE | 2018-10-04 15:45 | CASEMGMT ---
PHQ9 not completed on this date as physician stating CVA was ruled out. GIANNI Sotelo
[2018-10-05 10:06] LABS: Bedside Glucose 185 mg/dL (70-110)
--- NOTE | 2018-10-05 15:56 | CASEMGMT ---
Call from Maxwell at [facility] and she states that pt is active with them at this time. [facility] aware that pt was an OBS for possible TIA, left sided weakness/slurred speech at this time, voices understanding. Orin LOPEZ CM
== END 2018-10-04 11:31 | disposition home health service (06) ==
LOC: ED 14:01 → PCU 15:19
PROVIDERS: Internal Medicine; Emergency Provider Emergency Medicine; Family Provider Family Medicine Geriatric Medicine; PCP Family Medicine Geriatric Medicine; Visit Provider Internal Medicine
DX: R53.1 Weakness (principal); R47.81 Slurred speech; I25.10 Atherosclerotic heart disease of native coronary artery without angina pectoris; F17.210 Nicotine dependence, cigarettes, uncomplicated; R20.2 Paresthesia of skin; R07.89 Other chest pain; J44.9 Chronic obstructive pulmonary disease, unspecified; R29.707 NIHSS score 7; E78.5 Hyperlipidemia, unspecified; I10 Essential (primary) hypertension; F41.8 Other specified anxiety disorders; M51.36 Other intervertebral disc degeneration, lumbar region; I27.21 Secondary pulmonary arterial hypertension; I36.1 Nonrheumatic tricuspid (valve) insufficiency; E03.9 Hypothyroidism, unspecified; R73.9 Hyperglycemia, unspecified; G47.33 Obstructive sleep apnea (adult) (pediatric); F13.20 Sedative, hypnotic or anxiolytic dependence, uncomplicated; Z85.850 Personal history of malignant neoplasm of thyroid; Z95.1 Presence of aortocoronary bypass graft; Z79.899 Other long term (current) drug therapy; Z79.82 Long term (current) use of aspirin; Z79.02 Long term (current) use of antithrombotics/antiplatelets; Z86.73 Personal history of transient ischemic attack (TIA), and cerebral infarction without residual deficits; Z66 Do not resuscitate
CPT/HCPCS: 36415; 70450; 70496; 70498; 70551; 71045; 80048; 80061; 82962; 83036; 83735; 84484; 85025; 85610; 85730; 93005; 93306; 94640; 94762; 96360; 96361; 96372; 97162; 97166; 97802; 99218; 99285; 99406; J7030; J7050; Q9957; Q9967; A4216; G0378

== ENCOUNTER 2019-01-16 14:58 | Emergency (ER) | payer MEDICARE, SELFPAY ==
[2017-12-28 13:50] VITALS: BMI 29.2
[2018-10-04 08:44] VITALS: BMI 29.8
[2019-01-16 15:00] VITALS: BP 156/73; PULSE 67; RESP 26; TEMP 36.7; O2SAT 96; BMI 30.1
[2019-01-16 15:04] VITALS: BP 156/73; PULSE 64; RESP 20; TEMP 36.7; O2SAT 97
[2019-01-16 15:11] LABS: Bedside Glucose 69 mg/dL (70-110)
--- NOTE | 2019-01-16 15:16 | EKG12_ITS ---
Test Reason : ABD PAIN Blood Pressure : / mmHG Vent. Rate : 060 BPM Atrial Rate : 060 BPM P-R Int : 196 ms QRS Dur : 082 ms QT Int : 460 ms P-R-T Axes : 060 052 101 degrees QTc Int : 460 ms Normal sinus rhythm Nonspecific ST and T wave abnormality Abnormal ECG Confirmed by CONSUELO GOLD, EDDY ([id number]), multimedia editor DAVID CARMONA ([id number] on 01/19/2019 11:36:10 AM Referred By: MURRAY Confirmed By:EDDY CORDERO MD
--- NOTE | 2019-01-16 15:17 | ED.VIS.GEN ---
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 When asked what that meant she is having difficulty explaining it. She states that she felt nauseous but did not vomit. This continued onto today and she had a bowl of cereal as her only food so far today. She states that she had a bowel movement that was black and formed and there is a small amount of bright red blood in it. Tells me she has a history of something and tells me to look it up in the computer. After series of guesses by me and nursing she states that she has hemorrhoids. She asked me if she is leaking inside after I listen to her abdomen. When I asked what she means she states that they listen to her abdomen in the past and told her that she was leaking before the transfered her out. I asked what her diagnosis was and she could not tell me. She also notes that her chest feels tight but she also states she feels anxious. EMS stated she had difficulty speaking and by this she is stuttering and speaking very slowly. No fevers. No new abdominal pain. She tells me she has a chronic abdominal pain when she bends over and ties her shoes. This she tells me has been evaluated numerous times with no explainable cause. Past Medical History - Allergies and Home Meds Allergies/Adverse Reactions: Allergies morphine Allergy (Verified 10/03/18 12:27) PT UNSURE Penicillins Allergy (Verified 10/03/18 12:27) Hives tramadol HCl [From Ultram] Allergy (Verified 10/03/18 12:27) PT UNSURE bupropion [From Wellbutrin] Adverse Reaction (Verified 10/03/18 12:27) hallucinations Primary Care Physician: Ino Silva Chi, MD [Primary Care Provider] - Surgical History: angioplasty - A total of 5 stents, appendectomy, cholecystectomy, coronary bypass surgery - 3 vessel bypass surgery, - - Tubal ligation; and partial oopherectomy. thyroidectomy. Smoking Status: Light Smoker (<10/day) - Family History Paternal Family History: Reports: Heart Disease - Father of heart attack at age 64. Maternal Family History: Reports: Cancer - Mother of cancer at age 72., Stroke Review of Systems General: Reports: Malaise. Denies: Chills, Fever, Sweats Eyes: Denies: Visual changes - bilaterally, Diplopia ENT: Denies: Rhinorrhea, Sore throat Cardiovascular: Denies: Chest pain, Palpitations Respiratory: Denies: Dyspnea, Cough, Dyspnea on exertion Gastrointestinal: Reports: Nausea, - - Right red blood with bowel movement this morning. Denies: Abdominal pain, Vomiting, Diarrhea, Melena, Hematochezia Genitourinary: Denies: Dysuria, Hematuria, Frequency Musculoskeletal: Denies: Back pain, Extremity Pain Skin: Denies: Rash, Wounds Neurological: Denies: Headache, Weakness, Numbness Physical Exam Vital Signs/Narrative: Vital Signs Temp Pulse Resp BP Pulse Ox 01/16/19 15:04 98.1 F 64 20 H 156/73 H 97 01/16/19 15:00 98.1 F 67 26 H 156/73 H 96 General: Well nourished, Well developed, No Acute Distress Head: Normocephalic, Atraumatic Eyes: Perrl, EOMI ENT: Moist mucous membranes, No rhinorrhea Neck: Supple, Nontender Cardiovascular: Regular rate, Regular rhythm, No murmurs Respiratory: No distress, CTA bilaterally, Chest nontender Abdomen: Soft, Nontender, Nondistended, Normal bowel sounds Rectal: - - Appears to be some inflamed but nonthrombosed external hemorrhoids. The stool is a light brown and loose. Back: Nontender, Normal Inspection Extremities: Nontender, No edema Skin: Normal color, No rash Neurological: Alert, Oriented x3, Cranial nerves II-XII grossly intact, Normal Strength, Normal Sensation, - - Speaks in almost a slow stutter but as conversation continues speech improves. Psychological: - - Blunted flat Diagnostic/Tx/Re-eval - EKG Initial EKG Interpretation: Sinus Rhythm, Non-Specific ST Changes - Rate is 60 bpm no ectopy - Medical Decision Making EKG with a normal sinus rhythm. Troponin was negative. Basic labs are negative. CT the abdomen pelvis showed no acute findings. Chest x-ray negative. Patient was due for Ativan and she took her home dose. Her chest is no longer heavy. She is speaking normally. Her urine showed 5-10 white cells 1+ bacteria negative nitrates positive leukocyte esterase. This was sent for culture. Will write for Macrobid and for her to have some Zofran at home. Return if worsening or concerns follow-up with primary care doctor if not improving ED Disposition - Plan for ED Patient: Disposition: LEFT WITHOUT BEING SEEN Diagnosis: Nausea, Hypoglycemia, UTI (urinary tract infection) Instructions: Understanding Urinary Tract Infections (UTIs) Prescriptions: Nitrofurantoin Macrocrystals [Macrobid] 100 mg PO Q12 #10 cap Prescription Printed Ondansetron [Zofran Odt] 4 mg PO Q8H PRN PRN #10 tab PRN Reason: Nausea Prescription Printed Referrals: Ino Silva Chi, MD [Primary Care Provider] - 3-5 Days if not improving
--- NOTE | 2019-01-16 15:20 | RAD_ITS ---
STUDY: X-RAY CHEST REASON FOR EXAM: Female, 73 years old. Weakness. TECHNIQUE: Single frontal view of the chest. COMPARISON: September 13, 2018 FINDINGS: There is no new focal consolidation. There are stable prominent interstitial markings. There is stable eventration of the left hemidiaphragm. Sternal cerclage wires are present from a prior sternotomy. The cardiac silhouette is within normal limits. Normal mediastinum and beverly. Normal visualized pulmonary arteries. Normal visualized aortic arch and descending thoracic aorta. Normal visualized thoracic spine. There is a stable right posterior rib deformity consistent with a healed fracture. There is no demonstrated abnormality of the visualized soft tissue structures of the upper abdomen. RAD/Chest 1 View (Portable) IMPRESSION: No acute cardiopulmonary process. Electronically Signed: Kirsten Harding MD at 16:03 EST Tel , Service support ,
[2019-01-16] MEDS: Ondansetron 4 MG/2 ML Vial IV (15:24)
[2019-01-16] MEDS: Dextrose 50%-Water 25 GM/50 ML DISP.SYRIN IV (15:24)
[2019-01-16 15:33] LABS: Absolute Lymphocyte Count 3.69 X10^3/uL (0.83-4.51); Absolute Neutrophil Count 5.4 X10^3/uL (2.0-7.7); Basophil# 0.06 X10^3/uL; Basophil% 0.6 % (0-1); Hematocrit 42.5 % (37-47); Hemoglobin 13.6 g/dL (12.0-15.0); Lymphocyte # 3.69 X10^3/ul (4.0); Lymphocyte % 37.3 % (19-41); Mean Corpuscular Volume 87.4 fL (81-99); Mean Platelet Vol. 11.4 fl (6.2-12.0); Monocyte# 0.58 X10^3/uL; Monocyte% 5.9 % (0-10); NRBC Flagged by Analyzer 0 % (0-5); Neutrophil # 5.35 X10^3/uL (2.7-7.7); Platelet Count 281 K/mm3 (150-450); RBC Distribution Width CV 13.8 % (11.6-14.6); RBC Distribution Width SD 43.9 fl (35.1-43.9); Red Blood Count 4.86 M/mm3 (4.2-5.4); White Blood Count 9.9 K/mm3 (4.4-11.0)
[2019-01-16 15:49] LABS: AST(SGOT) 13 U/L (15-37); Alanine Aminotransfer ALT/SGPT 15 U/L (13-56); Albumin, Serum 3.5 g/dL (3.2-5.0); Alkaline Phosphatase 127 U/L (45-117); Anion Gap 4 (5-15); BUN 13 mg/dL (7-18); BUN/Creat Ratio 15.1 RATIO (10-20); Bilirubin, Direct 0.12 mg/dL (0.00-0.30); Calcium,Total 8.5 mg/dL (8.5-10.1); Chloride 108 mmol/L (98-107); Creatinine, Serum 0.86 mg/dL (0.55-1.02); EST Glomerular Filtration Rate 69 mL/min (>60); Est Glom Filt Rate - Afr Amer 83 mL/min (>60); Estimated Creatinine Clearance 45.28 ml/min; Globulin 3.5 g/dL (2.2-4.2); Glucose 70 mg/dL (74-106); Lipase 89 U/L (73-393); Sodium Level 141 mmol/L (136-145)
--- NOTE | 2019-01-16 15:55 | CT_ITS ---
STUDY: CT ABDOMEN AND PELVIS WITH CONTRAST REASON FOR EXAM: Female, 73 years old. Abdominal pain. Slight confusion. RADIATION DOSAGE (If Supplied By Facility): CTDIvol = ( 16.30 ) mGy, DLP = ( 761.09 ) mGycm TECHNIQUE: Transaxial images were obtained from the dome of the diaphragm to the symphysis pubis without oral contrast. was administered. Sagittal and coronal images were reconstructed. Individualized dose optimization techniques were used for this CT. COMPARISON: September 23, 2018. FINDINGS: The visualized lung bases are unremarkable. The visualized portions of the heart are within normal limits. Normal liver. There are surgical clips in the gallbladder fossa consistent with a prior cholecystectomy. Normal spleen. Stable pancreas. Normal bilateral adrenal glands. Normal right kidney. Normal left kidney. There is a small hiatal hernia. Normal small intestine. There are multiple colonic diverticula consistent with diverticulosis. There is non-visualization of the appendix. There is diffuse atherosclerotic calcification of the abdominal aorta, without a demonstrated aneurysm. Normal inferior vena cava. Normal retroperitoneum. Normal urinary bladder. Normal abdominal wall. There are diffuse degenerative changes of the visualized lumbar spine. CT/Abdomen/Pelvis W IV Cont ONLY IMPRESSION: Colonic diverticulosis. Atherosclerosis. Small hiatal hernia. Electronically Signed: Kirsten Harding MD at 16:46 EST Tel , Service support ,
[2019-01-16 16:40] VITALS: BP 152/60; PULSE 70; RESP 16; O2SAT 95
[2019-01-16 16:48] LABS: Mucous, Urine 0 SEEN /hpf (<or=2+)
[2019-01-16 16:50] LABS: Color, Urine Yellow (Yellow); Glucose, Dipstick 100 mg/dl (Normal); Ketone-Dipstick Negative (Negative); Leukocyte Esterase-Dipstick 25 /ul (Negative); Nitrite-Dipstick Negative (Negative); Occult Blood-Urine 10 /ul (Negative); Protein-Dipstick Negative (Negative); Urine Bilirubin Dipstick Negative (Negative); Urine Clarity Sl. Cloudy (Clear); Urine Urobilinogen Normal (Normal); Urine pH 6.5 (5.0 - 8.0)
[2019-01-16 16:57] LABS: Squamous Epithelial Cells - UA 0-5 SEEN /hpf (5-10)
[2019-01-16 17:00] LABS: Bacteria 1+ /hpf (None Seen)
[2019-01-16 17:01] LABS: Red Blood Cells-Urine 0-5 SEEN /hpf (0-5); White Blood Cells 5-10 SEEN /hpf (0-5)
[2019-01-16 17:11] VITALS: BP 167/60; PULSE 59; RESP 16
== END 2019-01-16 17:21 | disposition home or self-care (01) ==
PROVIDERS: Emergency Provider Emergency Medicine; Family Provider Family Medicine Geriatric Medicine; PCP Family Medicine Geriatric Medicine
DX: N39.0 Urinary tract infection, site not specified (principal); E16.2 Hypoglycemia, unspecified; R11.0 Nausea; F17.200 Nicotine dependence, unspecified, uncomplicated; Z95.1 Presence of aortocoronary bypass graft; Z95.5 Presence of coronary angioplasty implant and graft; Z79.82 Long term (current) use of aspirin; Z79.02 Long term (current) use of antithrombotics/antiplatelets; Z79.899 Other long term (current) drug therapy
CPT/HCPCS: 71045; 74177; 80048; 80076; 81001; 82962; 83690; 84484; 85025; 87086; 87088; 93005; 96374; 96375; 99285; J7030; Q9967; A4216; J2405

== ENCOUNTER 2019-03-11 15:30 | Emergency (ER) | payer MEDICARE, SELFPAY ==
[2017-12-28 13:50] VITALS: BMI 29.2
[2019-03-11 15:31] VITALS: BP 138/91; PULSE 73; RESP 17; TEMP 36.8; O2SAT 93; BMI 29.6
--- NOTE | 2019-03-11 15:42 | EKG12_ITS ---
Test Reason : CP Blood Pressure : / mmHG Vent. Rate : 072 BPM Atrial Rate : 072 BPM P-R Int : 188 ms QRS Dur : 082 ms QT Int : 418 ms P-R-T Axes : 079 053 119 degrees QTc Int : 457 ms Sinus rhythm with Premature atrial complexes and premature ventricular complexes (PVC) Nonspecific ST and T wave abnormality Abnormal ECG Confirmed by LEONEL GOLD, EMILY ([id number]), photography editor CAIO KUHN ([id number]) on 03/14/2019 3:31:20 PM Referred By: MICHELLE Confirmed By:EMILY CASTANEDA MD
--- NOTE | 2019-03-11 15:49 | ED.DCSUM_ITS ---
History of Present Illness Chief Complaint: Chest Pain Detail of Chief Complaint: Abdominal pain with nausea vomiting and respiratory symptoms Informant: Patient Onset: Yesterday - Nausea and vomiting started yesterday. She states she has not been able to keep anything down., Days - The past several days she has had cough which is productive of brown sputum occasionally. She is a smoker 1 pack/day. Context: Sudden Onset Timing: Intermittent Quality: Respiratory symptoms followed by nausea and vomiting Location: Upper respiratory and generalized abdominal discomfort Current Severity: Mild Maximum Severity: Moderate Worsened by: Abdominal pain worse with vomiting shortness of breath worse with activity Relieved by: Nothing Associated Symptoms: Fever no chills or night sweats Narrative: Patient is a 73-year-old woman with history of coronary disease, COPD, hypertension who presents because of fever with respiratory symptoms started several days ago. She states she is unable to eat or drink any thing for the past 24 to 48 hours. She has abdominal pain when she vomits. She denies diarrhea. She has not constipation. She denies hematemesis. She does report nasal congestion and runny nose initially. She now has a cough which is productive of brown-colored sputum. She does report history of COPD. She does smoke 1 pack/day. She denies leg pain, swelling or discoloration. She denies history of VTE. Prior similar symptoms: No Recent Illness/Hospitalization: No - Past Medical History (1) Acute ischemic right MCA stroke Status: Acute (2) Community acquired pneumonia Status: Acute (3) Intermittent chest pain Status: Acute (4) TIA (transient ischemic attack) Status: Acute (5) Atherosclerosis of coronary artery of [place] heart with angina pectoris Status: Chronic Comment: Qgp-DGD-KEL-Mid RCA w/ 2.0 x 10 mm Angiosculpt and 2.5 x 38 mm Promus Synergy Stent, BRIANA-Prox RCA 2.5 x 12 mm Prmomus Synergy Stent 12/28/17 ZPO-MAO-Degkt Cx w/ 2.5 x 24mm Promus 03/12/2011, TRI-Apjen-EQW;PCI-Prox LAD; CABG x 3 SY-LAD, SVG-OM and SVG-RCA (6) DDD (degenerative disc disease), lumbar Status: Chronic (7) Depression with anxiety Status: Chronic (8) Diastolic dysfunction Status: Chronic (9) Non-rheumatic tricuspid valve insufficiency Status: Chronic (10) Secondary pulmonary arterial hypertension Status: Chronic (11) History of coronary artery bypass graft x 3 Status: Resolved Comment: CABG x 3 SY-LAD, SVG-OM and SVG-RCA (12) History of thyroid cancer Status: Resolved Past Medical History - Allergies and Home Meds Allergies/Adverse Reactions: Allergies morphine Allergy (Verified 10/03/18 12:27) PT UNSURE Penicillins Allergy (Verified 10/03/18 12:27) Hives tramadol HCl [From Ultram] Allergy (Verified 10/03/18 12:27) PT UNSURE bupropion [From Wellbutrin] Adverse Reaction (Verified 10/03/18 12:27) hallucinations Primary Care Physician: [facility] Doctor,Out of [NON-STAFF] - Prior records reviewed: Yes Surgical History: angioplasty - A total of 5 stents, appendectomy, cholecystectomy, coronary bypass surgery - 3 vessel bypass surgery, - - Tubal ligation; and partial oopherectomy. thyroidectomy. Lives: Alone Smoking Status: Current every day smoker Alcohol: None Drugs: None - Family History Paternal Family History: Reports: Heart Disease - Father of heart attack at age 64. Maternal Family History: Reports: Cancer - Mother of cancer at age 72., Stroke Review of Systems General: Reports: Malaise. Denies: Chills, Fever, Sweats Eyes: Denies: Visual changes - bilaterally, Blurred Vision - bilaterally, Diplopia ENT: Reports: Rhinorrhea. Denies: Bilateral ear pain, Sore throat Cardiovascular: Denies: Chest pain, Palpitations Respiratory: Reports: Dyspnea, Cough, Sputum, Dyspnea on exertion. Denies: Orthopnea, Paroxysmal nocturnal dyspnea Gastrointestinal: Reports: Abdominal pain, Nausea, Vomiting. Denies: Diarrhea, Constipation, Melena, Hematochezia, -, - Genitourinary: Denies: Dysuria, Hematuria, Frequency Musculoskeletal: Denies: Myalgias, Arthralgias, Neck pain, Back pain, Swelling, Extremity Pain, -, - Skin: Denies: Rash, Wounds Neurological: Reports: Weakness. Denies: Headache, Parasthesia Psych: Reports: Depression, Anxiety Hematologic: Denies: Easy bruising, Easy bleeding Physical Exam Vital Signs/Narrative: Vital Signs Temp Pulse Resp BP Pulse Ox 03/11/19 15:31 98.3 F 73 17 138/91 H 93 Inital Vital Signs reviewed: Yes General: Well nourished, Well developed, No Acute Distress Head: Normocephalic, Atraumatic Eyes: Perrl, EOMI. Negative for: Pale conjunctiva, Scleral icterus ENT: No rhinorrhea, TM's clear, Dry mucous membranes Neck: Supple, Nontender, No lymphadenopathy, No JVD Cardiovascular: Regular rate, Regular rhythm, No murmurs, Normal S1, Normal S2 Respiratory: No distress, Chest nontender, Rales Abdomen: Soft, Nontender, Nondistended, Normal bowel sounds Back: Nontender, Normal Inspection, CVA tenderness Extremities: Nontender, No edema Skin: Normal color, No rash Neurological: Alert, Oriented x3, Cranial nerves II-XII grossly intact, Normal Strength, Normal Sensation Psychological: Normal affect, Normal Mood Diagnostic/Tx/Re-eval Chest X-Ray - ED: 2 View, Normal, Heart, Bony Structures, No Acute Disease, Chronic Changes, - - There is chronic changes noted lung parenchyma. There is evidence of granulomatous disease. Sternotomy wires noted. There is also a stent noted on the lateral. There is no effusion. There is no pneumothorax. There is no acute osseous structure abnormalities. Impressions Chest X-Ray 03/11/19 16:00 IMPRESSION: 1. Old granulomatous disease without acute cardiopulmonary process. 2. Evidence of prior median sternotomy. Electronically Signed: Lamont Roger DO at 16:31 EST Tel [phone], Service support , Wrist X-Ray 03/11/19 16:00 IMPRESSION: Osteopenia and degenerative changes of the right wrist. Electronically Signed: Lamont Roger DO at 16:30 EST Tel [phone], Service support , 03/11/19 16:00 Chest PA and Lateral [RAD] Stat Wrist min 3 Views [RAD] Stat Laboratory Results 03/11/19 03/11/19 03/11/19 15:30 15:30 15:30 WBC 10.5 RBC 4.55 Hgb 12.0 Hct 39.6 MCV 87.0 MCH 26.4 L MCHC 30.3 L RDW Std Deviation 46.3 H RDW Coeff of John 14.6 Plt Count 279 MPV 10.6 Immature Gran % (Auto) 0.300 Neut % (Auto) 48.2 Lymph % (Auto) 41.7 H Coffey % (Auto) 6.3 Eos % (Auto) 2.8 Baso % (Auto) 0.7 Absolute Neuts (auto) 5.1 Absolute Lymphs (auto) 4.39 Nucleated RBC % 0 Sodium 142 Potassium 4.2 Chloride 109 H Carbon Dioxide 31.0 Anion Gap 2 L BUN 13 Creatinine 0.88 Estim Creat Clear Calc 46.38 Est GFR (MDRD) Af Amer 82 Est GFR (MDRD) Non-Af 67 BUN/Creatinine Ratio 14.8 Glucose 72 L Lactic Acid 1.0 Calcium 8.2 L White count and differential are unremarkable. Basic metabolic panel is normal. Lactate is normal. - EKG Initial EKG Interpretation: Sinus Rhythm - Sinus rhythm with a ventricular rate of 72 and premature atrial beats. WI interval is 188 ms. QRS duration 82 ms. QT duration 418 ms. [place] is normal. Computer is reading ossific ST-T wave changes which is artifact. - Medical Decision Making Lulú patient is dehydrated. Since she is not anything to eat or drink in 2 days will obtain basic metabolic panel to assess electrolytes and renal function. Because patient has a productive cough with history of COPD chest x- ray was obtained to evaluate for pneumonia and a CBC was obtained. Since there is no wheezing she was not treated with aerosols. EKG was done per nurse protocol. She denied chest pain when I asked her. She did receive a liter of normal saline. She reports improvement after Zofran. She is had no vomiting in the department. ED Disposition - Plan for ED Patient: Disposition: Home or Assisted Living Diagnosis: Nausea and vomiting, Abdominal pain, Mild dehydration, Viral upper respiratory tract infection with cough Instructions: VIRAL SYNDROME (Adult) Prescriptions: Ondansetron [Zofran Odt] 4 mg PO Q8H PRN PRN #10 tab PRN Reason: Nausea Transmission Status: Pending to [id number] Referrals: [facility] Doctor,Out of [NON-STAFF] - 1 Week if not improving
--- NOTE | 2019-03-11 16:00 | RAD_ITS ---
STUDY: X-RAY CHEST REASON FOR EXAM: Female, 73 years old. Chest pain for 2 hours. Fever 100.4. TECHNIQUE: PA and lateral views of the chest. COMPARISON: None. FINDINGS: The lungs are well expanded. There is mildly coarsened interstitial markings thought to be chronic. There is a small nodular density in the lateral left mid lung thought to be a calcified granuloma. Lungs are otherwise clear. There is no demonstrated pleural abnormality. Sternal cerclage wires and vascular clips are present from a prior sternotomy and coronary artery bypass graft procedure (CABG). Normal mediastinum and beverly. Normal visualized pulmonary arteries. There is atherosclerotic calcification of the aortic arch with tortuosity. There is demineralization of the osseous structures. There is degenerative osteoarthritis of the bilateral shoulders. There is no demonstrated abnormality of the visualized soft tissue structures of the upper abdomen. RAD/Chest PA and Lateral IMPRESSION: 1. Old granulomatous disease without acute cardiopulmonary process. 2. Evidence of prior median sternotomy. Electronically Signed: Lamont Roger DO at 16:31 EST Tel [phone], Service support ,
--- NOTE | 2019-03-11 16:00 | RAD_ITS ---
STUDY: X-RAY - RIGHT WRIST REASON FOR EXAM: Female, 73 years old. Right wrist pain. TECHNIQUE: 3 view(s) of the wrist were obtained. COMPARISON: None. FINDINGS: Generalized osteopenia. Normal visualized distal radius and ulna. There is degenerative arthrosis of the radiocarpal articulation. Normal distal radioulnar articulation. Normal carpal bones. There is degenerative arthrosis of the carpal articulations. Normal carpometacarpal articulation of the thumb. Normal second through fifth carpometacarpal articulations. Normal visualized metacarpal bones. The soft tissue structures are unremarkable. RAD/Wrist min 3 Views IMPRESSION: Osteopenia and degenerative changes of the right wrist. Electronically Signed: Lamont Roger DO at 16:30 EST Tel [phone], Service support ,
[2019-03-11 16:01] LABS: Absolute Lymphocyte Count 4.39 X10^3/uL (0.83-4.51); Absolute Neutrophil Count 5.1 X10^3/uL (2.0-7.7); Basophil# 0.07 X10^3/uL; Basophil% 0.7 % (0-1); Eosinophils% 2.8 % (0-5); Hematocrit 39.6 % (37-47); Lymphocyte # 4.39 X10^3/ul (4.0); Lymphocyte % 41.7 % (19-41); Mean Corp Hgb Conc 30.3 g/dL (32-36); Mean Corpuscular Hgb 26.4 pg (27.0-32.0); Mean Platelet Vol. 10.6 fl (6.2-12.0); Monocyte# 0.66 X10^3/uL; Monocyte% 6.3 % (0-10); NRBC Flagged by Analyzer 0 % (0-5); Neutrophil # 5.08 X10^3/uL (2.7-7.7); Neutrophil % 48.2 % (47-70); Platelet Count 279 K/mm3 (150-450); RBC Distribution Width CV 14.6 % (11.6-14.6); RBC Distribution Width SD 46.3 fl (35.1-43.9); Red Blood Count 4.55 M/mm3 (4.2-5.4); White Blood Count 10.5 K/mm3 (4.4-11.0)
[2019-03-11 16:09] LABS: BUN 13 mg/dL (7-18); BUN/Creat Ratio 14.8 RATIO (10-20); Calcium,Total 8.2 mg/dL (8.5-10.1); Chloride 109 mmol/L (98-107); Creatinine, Serum 0.88 mg/dL (0.55-1.02); EST Glomerular Filtration Rate 67 mL/min (>60); Est Glom Filt Rate - Afr Amer 82 mL/min (>60); Estimated Creatinine Clearance 46.38 ml/min; Glucose 72 mg/dL (74-106); Potassium 4.2 mmol/L (3.5-5.1); Sodium Level 142 mmol/L (136-145)
[2019-03-11 16:10] LABS: Anion Gap 2 (5-15)
[2019-03-11] MEDS: 0.9% Normal Saline 1,000 ML 1000 ML IV (17:00)
[2019-03-11] MEDS: Ondansetron 4 MG/2 ML Vial IV (17:19)
[2019-03-11 17:21] VITALS: BP 129/59; PULSE 62; RESP 13; O2SAT 97
[2019-03-11 18:25] VITALS: BP 167/79; PULSE 70; RESP 16; O2SAT 97
== END 2019-03-11 18:35 | disposition home or self-care (01) ==
PROVIDERS: Emergency Provider Emergency Medicine; PCP Internal Medicine
DX: R11.2 Nausea with vomiting, unspecified (principal); R10.9 Unspecified abdominal pain; R07.9 Chest pain, unspecified; E86.0 Dehydration; J06.9 Acute upper respiratory infection, unspecified; I49.1 Atrial premature depolarization; I25.119 Atherosclerotic heart disease of native coronary artery with unspecified angina pectoris; I27.21 Secondary pulmonary arterial hypertension; J44.9 Chronic obstructive pulmonary disease, unspecified; I10 Essential (primary) hypertension; M51.36 Other intervertebral disc degeneration, lumbar region; F32.9 Major depressive disorder, single episode, unspecified; F41.9 Anxiety disorder, unspecified; I36.1 Nonrheumatic tricuspid (valve) insufficiency; F17.200 Nicotine dependence, unspecified, uncomplicated; Z79.02 Long term (current) use of antithrombotics/antiplatelets; Z79.82 Long term (current) use of aspirin; Z79.899 Other long term (current) drug therapy; Z88.0 Allergy status to penicillin; Z86.73 Personal history of transient ischemic attack (TIA), and cerebral infarction without residual deficits; Z85.850 Personal history of malignant neoplasm of thyroid; Z95.5 Presence of coronary angioplasty implant and graft; Z95.1 Presence of aortocoronary bypass graft; Z90.49 Acquired absence of other specified parts of digestive tract
CPT/HCPCS: 71046; 73110; 80048; 83605; 85025; 93005; 96361; 96374; 99285; J7030; A4216; J2405

== ENCOUNTER 2019-05-25 14:54 | Emergency (ER) | payer MEDICARE, SELFPAY ==
[2017-12-28 13:50] VITALS: BMI 29.2
[2019-05-25 14:57] VITALS: BP 145/78; PULSE 58; RESP 17; TEMP 36.9; O2SAT 93; BMI 29.0
--- NOTE | 2019-05-25 15:27 | CT_ITS ---
STUDY: CT CERVICAL SPINE WITHOUT CONTRAST REASON FOR EXAM: Female, 74 years old. Fall RADIATION DOSAGE (If Supplied By Facility): CTDIvol = ( 21.64 ) mGy, DLP = ( 474.22 ) mGycm TECHNIQUE: High resolution transaxial imaging was performed without contrast material. Sagittal and coronal images were reconstructed. Individualized dose optimization techniques were used for this CT. COMPARISON: 09/06/2018 FINDINGS: There is no evidence of fracture or dislocation in the cervical spine. The dens is intact. Alignment is normal. The vertebral body heights are well-maintained. There are stable degenerative changes. The visualized paraspinal soft tissues are within normal limits. CT/Spine Cervical without Contras IMPRESSION: No fracture or dislocation in the cervical spine. Stable degenerative change. Electronically Signed: Lee Dunn, at 16:12 EDT Tel , Service support ,
--- NOTE | 2019-05-25 15:27 | CT_ITS ---
STUDY: CT BRAIN WITHOUT CONTRAST REASON FOR EXAM: Female, 74 years old. Fall RADIATION DOSAGE (If Supplied By Facility): CTDIvol = ( 44.99 ) mGy, DLP = ( 779.24 ) mGycm TECHNIQUE: Transaxial CT imaging of the brain was performed without administration of intravenous contrast material. Individualized dose optimization techniques were used for this CT. COMPARISON: 10/03/2018 FINDINGS: There is no acute bleed or infarct. There are stable chronic ischemic and atrophic changes. The ventricles are normal in configuration. There is no hydrocephalus. There is a stable polyp versus mucous retention cyst in the right maxillary sinus. The visualized paranasal sinuses are otherwise clear. The mastoid air cells are well aerated. There is no skull fracture. CT/Brain/Head without Contrast IMPRESSION: Stable chronic ischemic and atrophic changes. No acute intracranial abnormality. Electronically Signed: Lee Dunn, at 16:09 EDT Tel , Service support ,
--- NOTE | 2019-05-25 15:28 | RAD_ITS ---
STUDY: X-RAY - RIGHT SHOULDER REASON FOR EXAM: Female, 74 years old. fall. Right knee and shoulder pain TECHNIQUE: 2 view(s) of the shoulder. COMPARISON: None. FINDINGS: Normal glenohumeral articulation. Normal acromioclavicular joint. Normal acromion. Nondisplaced fracture of the greater tuberosity of the proximal humerus. The soft tissue structures are unremarkable. Normal visualized pulmonary apex. RAD/Shoulder min 2 Views IMPRESSION: Nondisplaced fracture of the greater tuberosity of the proximal humerus. Electronically Signed: Gonzales Dowell, at 15:58 EDT , Service support ,
--- NOTE | 2019-05-25 15:30 | ED.VISSUMM ---
- ER Visit Summary Date of Service: 05/25/19 Chief Complaint: Fall History of Present Illness: The patient is a 74 F who presents after a fall that occurred today. Patient states she tripped over a table and fell onto her right side. Patient states she did hit the back of her head. Patient complains of pain in her right shoulder, neck, and right knee. Patient denies any loss of consciousness. Patient describes the pain is sharp with movement. Patient states her pain improves with rest. Patient denies any paresthesias or weakness. Physical Examination: Vital signs are stable. Patient is afebrile. Patient is in no acute distress. Oral mucosa is pink and moist. Neck is supple. Trachea is midline. There is no JVD. Heart was regular rate and rhythm. Lungs are clear and equal bilaterally. Abdomen is soft and nontender. Musculoskeletal exam reveals tenderness over the right shoulder, right knee, and cervical spine. There is no bony crepitance or step-off. There is no obvious deformity noted. Range of motion was limited in all motions of the cervical spine, right shoulder, and right knee secondary to pain. Strength is 5/5 bilateral knee upper and lower extremities. There are no sensory deficits noted. Radial and pedal pulses are equal bilaterally. Test Results: X-rays of the right shoulder were obtained. There is a fracture of the greater tuberosity that is nondisplaced. X-rays of the right knee were obtained. There is no acute fracture. CT scan of the brain and cervical spine were obtained. There is no acute abnormality noted. These were interpreted by the radiologist and reviewed by myself. Emergency Department Course and Treatment: Patient was given a dose of Wynot here. Patient was given an ice pack. Patient was placed in a sling and swath. Patient was given a prescription for Wynot. Patient was instructed to continue using ice to the areas. Patient was given a tetanus booster. Patient was instructed to follow-up with her primary care physician in 5 to 7 days. Patient understood and was agreeable with the plan. All questions were answered. Disposition: Discharge home Impression: 1. Right proximal humerus fracture 2. Right knee abrasion and contusion 3. Acute cervical strain 4. Closed head injury This note was generated with True[employer] software. It may contain incorrect words, spelling, and punctuation that were not noted in review of the chart prior to signing ED Disposition - Plan for ED Patient: Disposition: Home or Assisted Living Diagnosis: Proximal humerus fracture, Acute cervical myofascial strain, Contusion of right knee, initial encounter, Closed head injury Instructions: ED Fracture Upper Extremity, ED Sprain Strain Neck Prescriptions: Hydrocodone Bitart/Apap 5-325 [Wynot 5MG-325MG] 1 tab PO Q6H PRN PRN 3 Days #10 tab PRN Reason: Pain Prescription Printed Referrals: Zully Rojas MD [Primary Care Provider] - 5-7 Days
--- NOTE | 2019-05-25 15:40 | RAD_ITS ---
STUDY: X-RAY - RIGHT KNEE REASON FOR EXAM: Female, 74 years old. fall. Right knee and shoulder pain TECHNIQUE: 4 view(s) of the knee. COMPARISON: None. FINDINGS: Normal visualized distal femur. Normal visualized proximal tibia and fibula. Normal proximal tibiofibular articulation. Normal medial femorotibial compartment. Normal lateral femorotibial compartment. Normal patellofemoral articulation. Evidence of prior vascular surgery. RAD/Knee 4 or More Views IMPRESSION: No acute abnormality is seen. Electronically Signed: Gonzales Dowell, at 16:00 EDT , Service support ,
[2019-05-25] MEDS: HYDROcodone Bitartrate/Apap 5/325 Tablet PO (15:42)
[2019-05-25 15:43] VITALS: O2SAT 93
[2019-05-25 17:14] VITALS: BP 163/88; PULSE 58; RESP 18; TEMP 36.5; O2SAT 95
[2019-05-25] MEDS: Diphth,Pertuss(Acell),Tet Vac 0.5 ML Vial IM (17:20)
== END 2019-05-25 17:49 | disposition home or self-care (01) ==
PROVIDERS: Emergency Provider Emergency Medicine; PCP Internal Medicine
DX: S42.201A Unspecified fracture of upper end of right humerus, initial encounter for closed fracture (principal); S80.211A Abrasion, right knee, initial encounter; S80.01XA Contusion of right knee, initial encounter; S16.1XXA Strain of muscle, fascia and tendon at neck level, initial encounter; S09.90XA Unspecified injury of head, initial encounter; F17.200 Nicotine dependence, unspecified, uncomplicated; J44.9 Chronic obstructive pulmonary disease, unspecified; I25.10 Atherosclerotic heart disease of native coronary artery without angina pectoris; W01.0XXA Fall on same level from slipping, tripping and stumbling without subsequent striking against object, initial encounter
CPT/HCPCS: 70450; 72125; 73030; 73564; 90471; 90715; 99284

== ENCOUNTER 2019-10-10 11:31 | Emergency (ER) | payer MEDICARE, SELFPAY ==
[2017-12-28 13:50] VITALS: BMI 29.2
[2019-10-10 11:32] VITALS: BP 128/68; PULSE 72; RESP 14; TEMP 36.9; O2SAT 97
--- NOTE | 2019-10-10 11:47 | EKG12_ITS ---
Test Reason : SOB Blood Pressure : / mmHG Vent. Rate : 065 BPM Atrial Rate : 065 BPM P-R Int : 182 ms QRS Dur : 088 ms QT Int : 420 ms P-R-T Axes : 062 056 101 degrees QTc Int : 436 ms Normal sinus rhythm Nonspecific T wave abnormality Abnormal ECG Confirmed by LEONEL GOLD, EMILY ([id number]), tape editor WALLY LOAIZA ([id number]) on 10/13/2019 11:20:21 AM Referred By: ÁNGELA Confirmed By:EMILY CASTANEDA MD
--- NOTE | 2019-10-10 11:48 | ED.DCSUM_ITS ---
History of Present Illness Chief Complaint: General Illness Detail of Chief Complaint: Trouble breathing and right arm pain Informant: Patient Onset: Today - Today at the doctor's office she experienced trouble breathing. She does report history of panic attacks., Weeks - Status post near fall. Patient braced her fall using her outstretched right upper extremity. She was seen earlier this summer and diagnosed with a nondisplaced fracture of the greater tuberosity. Context: Sudden Onset Timing: Intermittent Quality: Throat closing and cannot breathe and pain Location: Neck and right arm Current Severity: Mild - Had episode of inability to breathe. She did not become tachycardic, tachypneic and was not hypoxic. Maximum Severity: - - Right arm pain is worse with movement. Worsened by: Use of right upper extremity Relieved by: Nothing Associated Symptoms: Denies paresthesia, anesthesia or motor weakness. Narrative: Patient is a 74-year-old woman who fractured her right proximal humerus, nondisplaced fracture of the greater tuberosity. She denies paresthesia, anesthesia medics. She states her doctor believes she fractured it again. During the office visit she had difficulty breathing with throat closing off. She was sent to the emergency room for this reason. Patient did have an episode during the history and physical. There was no change in vital signs. Patient did not become cyanotic. She did not have any drooling. She was able to phonate. There is pain palpation of the entire right humerus. Axillary, median, radial and ulnar function intact. Radial pulses palpable. Patient denies chest discomfort. She denies history of PE or DVT. She denies leg pain, swelling discoloration. Prior similar symptoms: Yes - Panic attack and prior fracture Recent Illness/Hospitalization: Yes - Follow-up visit - Past Medical History (1) Acute ischemic right MCA stroke Status: Acute (2) Atherosclerosis of coronary artery bypass graft without angina pectoris Status: Chronic Comment: Rdd-YVN-OYD-Mid RCA w/ 2.0 x 10 mm Angiosculpt and 2.5 x 38 mm Promus Synergy Stent, BRIANA-Prox RCA 2.5 x 12 mm Prmomus Synergy Stent 12/28/17 UER-YWL-Rkfxg Cx w/ 2.5 x 24mm Promus 03/12/2011, GZY-Sflon-SRE;PCI-Prox LAD; CABG x 3 YS-LAD, SVG-OM and SVG-RCA (3) COPD (chronic obstructive pulmonary disease) Status: Chronic (4) DDD (degenerative disc disease), lumbar Status: Chronic (5) Depression with anxiety Status: Chronic (6) Diastolic dysfunction Status: Chronic (7) Essential (primary) hypertension Status: Chronic (8) Hyperlipidemia Status: Chronic (9) Nicotine dependence Status: Chronic (10) Secondary pulmonary arterial hypertension Status: Chronic (11) History of thyroid cancer Status: Resolved Past Medical History - Allergies and Home Meds Allergies/Adverse Reactions: Allergies morphine Allergy (Verified 10/10/19 11:36) PT UNSURE Penicillins Allergy (Verified 10/10/19 11:36) Hives tramadol HCl [From Ultram] Allergy (Verified 10/10/19 11:36) PT UNSURE bupropion [From Wellbutrin] Adverse Reaction (Verified 10/10/19 11:36) hallucinations Primary Care Physician: Zully Rojas MD [Primary Care Provider] - Prior records reviewed: Yes Surgical History: angioplasty - A total of 5 stents, appendectomy, cholecystectomy, coronary bypass surgery - 3 vessel bypass surgery, - - Tubal ligation; and partial oopherectomy. thyroidectomy. Lives: Alone Smoking Status: Current some day smoker Alcohol: None Drugs: None - Family History Paternal Family History: Reports: Heart Disease - Father of heart attack at age 64. Maternal Family History: Reports: Cancer - Mother of cancer at age 72., Stroke Review of Systems General: Denies: Chills, Fever, Malaise, Subjective Eyes: Denies: Visual changes - bilaterally, Blurred Vision - bilaterally ENT: Denies: Bilateral ear pain, Rhinorrhea, Sore throat Cardiovascular: Denies: Chest pain, Palpitations Respiratory: Reports: Cough - She reports chronic cough.. Denies: Dyspnea, Sputum, Dyspnea on exertion, Orthopnea, Paroxysmal nocturnal dyspnea Gastrointestinal: Denies: Abdominal pain, Nausea, Vomiting, Diarrhea, Melena, Hematochezia Musculoskeletal: Denies: Myalgias, Arthralgias, Neck pain, Back pain, Swelling, Extremity Pain Skin: Denies: Rash, Wounds Neurological: Denies: Headache, Weakness Psych: Reports: Anxiety. Denies: Depression Endocrine: Denies: Heat intolerance Hematologic: Denies: Easy bruising, Easy bleeding Physical Exam Vital Signs/Narrative: Vital Signs Temp Pulse Resp BP Pulse Ox 10/10/19 11:32 98.4 F 72 14 128/68 H 97 Inital Vital Signs reviewed: Yes General: Well nourished, Well developed, No Acute Distress Head: Normocephalic, Atraumatic Eyes: Perrl, EOMI. Negative for: Pale conjunctiva, Scleral icterus ENT: Moist mucous membranes, No rhinorrhea, - - Episode patient was examined. There was no inspiratory expiratory stridor. She is able to phonate. There was no evidence of cyanosis or abnormality of her laboratory values. She did have a tremor which was picked up on the monitor due to muscle spasm. Neck: Supple, Nontender Cardiovascular: Regular rate, Regular rhythm, No murmurs, Normal S1, Normal S2 Respiratory: No distress, CTA bilaterally, Chest nontender Abdomen: Soft, Nontender, Nondistended, Normal bowel sounds, No masses Rectal: Deferred Back: Nontender, Normal Inspection Extremities: Nontender, No edema, - - There is no asymmetry, swelling, discoloration, leg vein distention, palpable cords or tenderness along the distribution of the deep venous system. Skin: Normal color, No rash Neurological: Alert, Oriented x3, Cranial nerves II-XII grossly intact, Normal Strength, Normal Sensation Psychological: Depressed Diagnostic/Tx/Re-eval 10/10/19 12:20 Humerus min 2 Views [RAD] Stat Laboratory Results 10/10/19 10/10/19 11:55 11:55 WBC 9.7 RBC 4.63 Hgb 13.0 Hct 41.7 MCV 90.1 MCH 28.1 MCHC 31.2 L RDW Std Deviation 48.3 H RDW Coeff of John 14.6 Plt Count 278 MPV 10.8 Immature Gran % (Auto) 0.400 Neut % (Auto) 63.1 Lymph % (Auto) 28.0 [place] % (Auto) 4.6 Eos % (Auto) 3.3 Baso % (Auto) 0.6 Absolute Neuts (auto) 6.1 Absolute Lymphs (auto) 2.72 Nucleated RBC % 0 Sodium 141 Potassium 4.2 Chloride 106 Carbon Dioxide 31.0 Anion Gap 4 L BUN 16 Creatinine 0.91 Estim Creat Clear Calc 46.23 Est GFR (MDRD) Af Amer 78 Est GFR (MDRD) Non-Af 64 BUN/Creatinine Ratio 17.5 Glucose 141 H Calcium 8.2 L CBC is unremarkable. Basic metabolic panel reveals elevated glucose of 141. 2 view x-ray of the humerus was interpreted by me as negative for any acute pathology. Patient was discharged home with appropriate home-going instruction. She was informed that her attacks of not being able to breathe are panic attacks. - EKG Initial EKG Interpretation: Sinus Rhythm - Sinus rhythm with a ventricular rate of 65. DE interval 182 ms. QRS duration 88 ms. QT duration 420 ms. Decreased anterior force. - Medical Decision Making With history of fall since fracture and no prior imaging will obtain x-ray to evaluate for fracture. EKG was obtained per nurse protocol. Suspect patient having panic attack. The received a dose of Ativan. She is scheduled to receive a dose of Ativan at noon. ED Disposition - Plan for ED Patient: Disposition: Home or Assisted Living Diagnosis: Panic attack, Arm pain, right Instructions: ED Panic Attack, ED Acute Pain [facility] Referrals: Zully Rojas MD [Primary Care Provider] - As Needed
[2019-10-10 12:00] LABS: Absolute Lymphocyte Count 2.72 X10^3/uL (0.83-4.51); Absolute Neutrophil Count 6.1 X10^3/uL (2.0-7.7); Basophil# 0.06 X10^3/uL; Basophil% 0.6 % (0-1); Eosinophil# 0.32 X10^3/uL; Eosinophils% 3.3 % (0-5); Hematocrit 41.7 % (37-47); Lymphocyte # 2.72 X10^3/ul (4.0); Mean Corp Hgb Conc 31.2 g/dL (32-36); Mean Corpuscular Hgb 28.1 pg (27.0-32.0); Mean Corpuscular Volume 90.1 fL (81-99); Mean Platelet Vol. 10.8 fl (6.2-12.0); Monocyte# 0.45 X10^3/uL; Monocyte% 4.6 % (0-10); NRBC Flagged by Analyzer 0 % (0-5); Neutrophil # 6.13 X10^3/uL (2.7-7.7); Neutrophil % 63.1 % (47-70); Platelet Count 278 K/mm3 (150-450); RBC Distribution Width CV 14.6 % (11.6-14.6); RBC Distribution Width SD 48.3 fl (35.1-43.9); Red Blood Count 4.63 M/mm3 (4.2-5.4); White Blood Count 9.7 K/mm3 (4.4-11.0)
[2019-10-10] MEDS: LORazepam 1 MG Tablet PO (12:03)
[2019-10-10 12:13] LABS: Anion Gap 4 (5-15); BUN 16 mg/dL (7-18); BUN/Creat Ratio 17.5 RATIO (10-20); Calcium,Total 8.2 mg/dL (8.5-10.1); Chloride 106 mmol/L (98-107); Creatinine, Serum 0.91 mg/dL (0.55-1.02); EST Glomerular Filtration Rate 64 mL/min (>60); Est Glom Filt Rate - Afr Amer 78 mL/min (>60); Estimated Creatinine Clearance 46.23 ml/min; Glucose 141 mg/dL (74-106); Potassium 4.2 mmol/L (3.5-5.1); Sodium Level 141 mmol/L (136-145)
--- NOTE | 2019-10-10 12:20 | RAD_ITS ---
STUDY: X-RAY - RIGHT HUMERUS REASON FOR EXAM: Female, 74 years old. Recent right humerus fx, patient tripped against wall and concerned she fractured it again TECHNIQUE: 2 view(s) of the humerus. COMPARISON: Comparison is made with prior examination dated 05/25/2019. FINDINGS: Healed fracture of the surgical neck of the humerus and greater tuberosity. There is no demonstrated fracture or osseous destructive process. Healed right rib fractures. There is no demonstrated soft tissue abnormality. RAD/Humerus min 2 Views IMPRESSION: Healed fracture of the surgical neck of the humerus and greater tuberosity. Healed right rib fractures. Electronically Signed: Gonzales Dowell, at 12:38 EDT , Service support ,
[2019-10-10 13:41] VITALS: BP 134/78; PULSE 64; RESP 16; O2SAT 98
== END 2019-10-10 13:42 | disposition home or self-care (01) ==
PROVIDERS: Emergency Provider Emergency Medicine; PCP Internal Medicine
DX: F41.0 Panic disorder [episodic paroxysmal anxiety] (principal); M79.621 Pain in right upper arm; F17.200 Nicotine dependence, unspecified, uncomplicated; E78.5 Hyperlipidemia, unspecified; I10 Essential (primary) hypertension; J44.9 Chronic obstructive pulmonary disease, unspecified; Z95.1 Presence of aortocoronary bypass graft; Z95.5 Presence of coronary angioplasty implant and graft; Z85.850 Personal history of malignant neoplasm of thyroid; Z79.899 Other long term (current) drug therapy; Z79.82 Long term (current) use of aspirin
CPT/HCPCS: 73060; 80048; 85025; 93005; 99284; A4216

== ENCOUNTER 2019-10-27 15:57 | Emergency (ER) | payer MEDICARE, SELFPAY ==
[2017-12-28 13:50] VITALS: BMI 29.2
[2019-10-27 15:58] VITALS: PULSE 67; RESP 18; TEMP 36.6; O2SAT 99; BMI 28.3
[2019-10-27 16:01] VITALS: BP 163/78
--- NOTE | 2019-10-27 16:17 | EKG12_ITS ---
Test Reason : Blood Pressure : / mmHG Vent. Rate : 064 BPM Atrial Rate : 064 BPM P-R Int : 188 ms QRS Dur : 082 ms QT Int : 460 ms P-R-T Axes : 060 062 099 degrees QTc Int : 474 ms Normal sinus rhythm Nonspecific ST and T wave abnormality Abnormal ECG Confirmed by CONSUELO GOLD, EDDY ([id number]), rewrite editor WALLY LOAIZA ([id number]) on 10/31/2019 1:35:10 PM Referred By: TEENA Confirmed By:EDDY CORDERO MD
--- NOTE | 2019-10-27 16:18 | CT_ITS ---
STUDY: CT ABDOMEN AND PELVIS WITH CONTRAST REASON FOR EXAM: Female, 74 years old. TRIPPED AND FELL, NECK, BACK, LT SHOULDER, ANKLE PAIN. RADIATION DOSAGE (If Supplied By Facility): CTDIvol = ( 903.63 ) mGy, DLP = ( ) mGycm TECHNIQUE: Transaxial images were obtained from the dome of the diaphragm to the symphysis pubis without oral contrast. IV 100mL Isovue-370 was administered. Sagittal and coronal images were reconstructed. Individualized dose optimization techniques were used for this CT. COMPARISON: 01/16/2019 FINDINGS: The visualized lung bases are unremarkable. The visualized portions of the heart are within normal limits. Small hiatal hernia. Normal liver. There are surgical clips in the gallbladder fossa consistent with a prior cholecystectomy. Normal spleen. Normal pancreas. Normal bilateral adrenal glands. Normal right kidney. Normal left kidney. Normal visualized stomach. Normal small intestine. Normal colon. There is non-visualization of the appendix. Normal abdominal aorta. Normal inferior vena cava. Normal retroperitoneum. Normal urinary bladder. Normal abdominal wall. There are diffuse degenerative changes of the visualized lumbar spine. CT/Abdomen/Pelvis WITH Contrast IMPRESSION: No CT evidence of acute injury involving the abdomen or pelvis. Electronically Signed: Nayan Saunders MD at 17:35 EDT Tel , Service support ,
--- NOTE | 2019-10-27 16:19 | CT_ITS ---
STUDY: CT CHEST WITH CONTRAST REASON FOR EXAM: Female, 74 years old. TRIPPED AND FELL. NECK/BACK, LEFT SIDED PAIN. RADIATION DOSAGE (If Supplied By Facility): CTDIvol = ( 17.61 ) mGy, DLP = ( 554.09 ) mGycm TECHNIQUE: Transaxial imaging was performed following intravenous administration of IV 100mL Isovue-370. Individualized dose optimization techniques were used for this CT. COMPARISON: None. FINDINGS: Median sternotomy wires and CABG clips. Small hiatal hernia. The lungs are normal. There is no demonstrated pleural abnormality. Normal heart and pericardium. Normal mediastinum. Normal hilar regions. Normal enhanced pulmonary arteries. Normal aorta arch and descending thoracic aorta. Normal osseous structures. Cholecystectomy. CT/Chest WITH Contrast IMPRESSION: No CT evidence of acute injury involving the chest. Electronically Signed: Nayan Saunders MD at 17:29 EDT Tel , Service support ,
--- NOTE | 2019-10-27 16:20 | CT_ITS ---
STUDY: CT CERVICAL SPINE WITHOUT CONTRAST REASON FOR EXAM: Female, 74 years old. PT TRIPPED AND FELL. NECK, BACK, LEFT SIDED PAIN. RADIATION DOSAGE (If Supplied By Facility): CTDIvol = ( 24.43 ) mGy, DLP = ( 492.60 ) mGycm TECHNIQUE: High resolution transaxial imaging was performed without contrast material. Sagittal and coronal images were reconstructed. Individualized dose optimization techniques were used for this CT. COMPARISON: 05/25/2019 FINDINGS: Craniocervical junction is intact. Degenerative changes are present involving the atlantodental articulation. Normal odontoid process. Alignment is within normal limits. Multilevel degenerative disease is present. No acute fractures or dislocations are seen. Carotid calcifications. CT/Spine Cervical without Contras IMPRESSION: No acute osseous injury is evident. Comment: MRI is more sensitive than CT in detecting cord injury, ligament injury, and epidural hematoma. If there is continued clinical concern for any of these entities, MRI correlation should be considered if possible. Electronically Signed: Nayan Saunders MD at 17:31 EDT Tel , Service support ,
--- NOTE | 2019-10-27 16:20 | CT_ITS ---
STUDY: CT BRAIN WITHOUT CONTRAST REASON FOR EXAM: Female, 74 years old. PT TRIPPED AND FELL. NECK, BACK, LEFT SIDED PAIN. RADIATION DOSAGE (If Supplied By Facility): CTDIvol = ( 44.99 ) mGy, DLP = ( 863.60 ) mGycm TECHNIQUE: Transaxial CT imaging of the brain was performed without administration of intravenous contrast material. Individualized dose optimization techniques were used for this CT. COMPARISON: 05/25/2019 FINDINGS: Normal soft tissue structures. Normal calvarium. Bilateral lens replacements. Normal size ventricles and extra-axial spaces for the patient''s age. There are areas of decreased attenuation within the white matter tracts of the supratentorial brain, consistent with microvascular disease changes. Age-related changes of the basal ganglia. Normal brainstem. Normal cerebellum. There is no intracranial hemorrhage. There are no findings of an acute ischemic infarction. Remote infarct in the right wang radiata. Normal visualized paranasal sinuses. CT/Brain/Head without Contrast IMPRESSION: No fracture or intracranial hemorrhage. Electronically Signed: Nayan Saunders MD at 17:19 EDT Tel , Service support ,
[2019-10-27 16:31] LABS: Absolute Lymphocyte Count 3.55 X10^3/uL (0.83-4.51); Absolute Neutrophil Count 8.7 X10^3/uL (2.0-7.7); Basophil# 0.07 X10^3/uL; Basophil% 0.5 % (0-1); Eosinophil# 0.26 X10^3/uL; Eosinophils% 1.9 % (0-5); Hemoglobin 13.3 g/dL (12.0-15.0); Lymphocyte # 3.55 X10^3/ul (4.0); Lymphocyte % 26.5 % (19-41); Mean Corp Hgb Conc 32.4 g/dL (32-36); Mean Corpuscular Hgb 28.7 pg (27.0-32.0); Mean Corpuscular Volume 88.6 fL (81-99); Mean Platelet Vol. 10.9 fl (6.2-12.0); Monocyte# 0.77 X10^3/uL; Monocyte% 5.7 % (0-10); NRBC Flagged by Analyzer 0 % (0-5); Neutrophil # 8.67 X10^3/uL (2.7-7.7); Neutrophil % 64.7 % (47-70); Platelet Count 292 K/mm3 (150-450); RBC Distribution Width CV 14.2 % (11.6-14.6); RBC Distribution Width SD 45.8 fl (35.1-43.9); Red Blood Count 4.63 M/mm3 (4.2-5.4); White Blood Count 13.4 K/mm3 (4.4-11.0)
--- NOTE | 2019-10-27 16:45 | ED.DCSUM_ITS ---
History of Present Illness Chief Complaint: Fall Informant: Patient Onset: Today Narrative: Brought in by EMS for mechanical fall and [employer]. She states she was being shown the repairs for her car which she thinks she caught her feet on something falling backwards hitting her head. Denies loss of consciousness. Reports pain everywhere. Denies a headache neck pain back pain chest abdominal along with left lower extremity pain. She is on aspirin and Plavix history of CABG along with stroke history. She did not take Plavix today due to taking every other day. Denies nausea or vomiting. Patient states she can ambulate without assistance however does have electric scooter that she gets around with. Prior similar symptoms: No Past Medical History - Allergies and Home Meds Allergies/Adverse Reactions: Allergies morphine Allergy (Verified 10/27/19 15:57) PT UNSURE Penicillins Allergy (Verified 10/27/19 15:57) Hives tramadol HCl [From Ultram] Allergy (Verified 10/27/19 15:57) PT UNSURE bupropion [From Wellbutrin] Adverse Reaction (Verified 10/27/19 15:57) hallucinations Primary Care Physician: Zully Rojas MD [Primary Care Provider] - Past Medical History: - - Coronary disease, hypertension, hyperlipidemia, anxiety and depression, CVA, degenerative disc disease. Surgical History: angioplasty - A total of 5 stents, appendectomy, cholecystectomy, coronary bypass surgery - 3 vessel bypass surgery, - - Tubal ligation; and partial oopherectomy. thyroidectomy. Smoking Status: Current every day smoker - Family History Paternal Family History: Reports: Heart Disease - Father of heart attack at age 64. Maternal Family History: Reports: Cancer - Mother of cancer at age 72., Stroke Review of Systems General: Denies: Chills, Fever, Sweats Eyes: Denies: Visual changes - bilaterally, Diplopia ENT: Denies: Rhinorrhea, Sore throat Cardiovascular: Reports: Chest pain. Denies: Palpitations Respiratory: Denies: Dyspnea, Cough, Dyspnea on exertion Gastrointestinal: Reports: Abdominal pain. Denies: Nausea, Vomiting, Diarrhea, Melena, Hematochezia Genitourinary: Denies: Dysuria, Hematuria, Frequency Musculoskeletal: Reports: Neck pain, Back pain. Denies: Extremity Pain Skin: Denies: Rash, Wounds Neurological: Reports: Headache. Denies: Weakness, Numbness Physical Exam Vital Signs/Narrative: Vital Signs Temp Pulse Resp BP Pulse Ox 10/27/19 16:01 163/78 H 10/27/19 15:58 97.8 F 67 18 99 Inital Vital Signs reviewed: Yes General: Well nourished, Well developed, - - C-collar, GCS 15. Head: Normocephalic, Atraumatic, - - No facial tenderness Eyes: Perrl, EOMI ENT: Moist mucous membranes, No rhinorrhea, TM's clear, - - No hemotympanum Neck: Supple, - - C-collar, minimal midline tenderness with no step-offs. Cardiovascular: Regular rate, Regular rhythm, No murmurs Respiratory: No distress, CTA bilaterally, Chest tenderness, - - Symmetric breath sounds, there is tenderness across the substernal region, no crepitus or ecchymosis. Abdomen: Soft, Nondistended, Normal bowel sounds, - - Mild tenderness across the mid abdomen, no ecchymosis. Back: Normal Inspection, Spinal tenderness, - - Midline tenderness of thoracic and lumbar with no step-offs. No ecchymosis. Extremities: No edema, - - Tender palpation left greater trochanteric, there is no shortening or rotation. The reported pain with logroll. No knee tenderness. Tender palpation of the lateral malleolus, no deformities. No foot tenderness. Skin intact. Neurovascular intact. Skin: Normal color, No rash Neurological: Alert, Oriented x3, Cranial nerves II-XII grossly intact Psychological: Normal affect, Normal Mood Diagnostic/Tx/Re-eval Clinical Impression(s) from Imaging Studies Abdomen/Pelvis CT 10/27/19 16:18 IMPRESSION: No CT evidence of acute injury involving the abdomen or pelvis. Electronically Signed: Nayan Saunders MD at 17:35 EDT Tel , Service support , Chest CT 10/27/19 16:19 IMPRESSION: No CT evidence of acute injury involving the chest. Electronically Signed: Nayan Saunders MD at 17:29 EDT Tel , Service support , Brain CT 10/27/19 16:20 IMPRESSION: No fracture or intracranial hemorrhage. Electronically Signed: Nayan Saunders MD at 17:19 EDT Tel , Service support , Cervical Spine CT 10/27/19 16:20 IMPRESSION: No acute osseous injury is evident. Comment: MRI is more sensitive than CT in detecting cord injury, ligament injury, and epidural hematoma. If there is continued clinical concern for any of these entities, MRI correlation should be considered if possible. Electronically Signed: Nayan Saunders MD at 17:31 EDT Tel , Service support , Ankle X-Ray 10/27/19 16:50 IMPRESSION: No acute osseous injury is evident. Electronically Signed: Nayan Saunders MD at 17:10 EDT Tel , Service support , Lumbar Spine CT 10/27/19 16:52 IMPRESSION: No CT evidence of acute osseous injury. Please note that MRI is more sensitive in detecting epidural hematoma or ligament disruption. If there is concern for either of these entities, MRI correlation should be considered possible. Electronically Signed: Nayan Saunders MD at 17:53 EDT Tel , Service support , Thoracic Spine CT 10/27/19 16:52 IMPRESSION: No acute osseous injury is evident. Note: MRI is more sensitive than CT in detecting cord injury, ligament injury, and epidural hematoma. If there is clinical concern for any of these entities, MRI correlation should be considered if possible. Electronically Signed: Nayan Saunders MD at 17:51 EDT Tel , Service support , Abnormal Lab Results 10/27/19 10/27/19 10/27/19 16:20 16:20 16:20 WBC 13.4 H RBC 4.63 Hgb 13.3 Hct 41.0 MCV 88.6 MCH 28.7 MCHC 32.4 RDW Std Deviation 45.8 H RDW Coeff of John 14.2 Plt Count 292 MPV 10.9 Immature Gran % (Auto) 0.700 Neut % (Auto) 64.7 Lymph % (Auto) 26.5 [place] % (Auto) 5.7 Eos % (Auto) 1.9 Baso % (Auto) 0.5 Absolute Neuts (auto) 8.7 H Absolute Lymphs (auto) 3.55 Nucleated RBC % 0 PT 13.5 INR 1.1 APTT 27.6 Sodium 140 Potassium 4.1 Chloride 104 Carbon Dioxide 31.0 Anion Gap 5 BUN 13 Creatinine 0.90 Estim Creat Clear Calc 42.64 Est GFR (MDRD) Af Amer 79 Est GFR (MDRD) Non-Af 65 BUN/Creatinine Ratio 14.4 Glucose 90 Calcium 8.8 Total Bilirubin 0.80 Direct Bilirubin 0.16 AST 13 L ALT 17 Alkaline Phosphatase 139 H Total Protein 7.1 Albumin 3.5 Globulin 3.6 Lipase 64 L - Medical Decision Making EKG: Sinus rate of 64, no ST or T wave changes. Patient with a mechanical fall. Generalized pain throughout on exam. Symmetric breath sounds. Trauma scans of head neck chest abdomen pelvis with TL reconstruction with no acute process. No fractures of the spine or the pelvis and hip. X-ray of the left ankle was also negative. She is given fentanyl Zofran and fluids. Labs are stable. Aircast placed to the ankle, patient was ambulated with no difficulties. Discharged home with outpatient follow-up. ED Disposition - Plan for ED Patient: Disposition: Home or Assisted Living Diagnosis: Fall, Closed head injury, Chest wall contusion, Contusion of thoracic wall, Lumbar contusion, Contusion of left hip, Left ankle sprain Instructions: ED SOFT TISSUE CONTUSION, ED Contusion Back, ED Head Injury Adult Referrals: Zully Rojas MD [Primary Care Provider] - 3-5 Days
[2019-10-27 16:48] LABS: AST(SGOT) 13 U/L (15-37); Alanine Aminotransfer ALT/SGPT 17 U/L (13-56); Albumin, Serum 3.5 g/dL (3.2-5.0); Alkaline Phosphatase 139 U/L (45-117); Anion Gap 5 (5-15); BUN 13 mg/dL (7-18); BUN/Creat Ratio 14.4 RATIO (10-20); Bilirubin, Direct 0.16 mg/dL (0.00-0.30); Calcium,Total 8.8 mg/dL (8.5-10.1); Chloride 104 mmol/L (98-107); EST Glomerular Filtration Rate 65 mL/min (>60); Est Glom Filt Rate - Afr Amer 79 mL/min (>60); Estimated Creatinine Clearance 42.64 ml/min; Globulin 3.6 g/dL (2.2-4.2); Glucose 90 mg/dL (74-106); Lipase 64 U/L (73-393); Potassium 4.1 mmol/L (3.5-5.1); Protein, Total 7.1 g/dL (6.4-8.2); Sodium Level 140 mmol/L (136-145)
--- NOTE | 2019-10-27 16:50 | RAD_ITS ---
STUDY: X-RAY - LEFT ANKLE REASON FOR EXAM: Female, 74 years old. FALL TECHNIQUE: 3 view(s) of the ankle. COMPARISON: None. FINDINGS: Normal visualized distal tibia and fibula. Normal medial and lateral malleoli. Normal tibiotalar articulation and ankle mortise. Normal visualized talus and calcaneus. The visualized subtalar, talonavicular, calcaneocuboid and tarsal articulations are normal. The soft tissue structures are unremarkable. RAD/Ankle min 3 Views IMPRESSION: No acute osseous injury is evident. Electronically Signed: Nayan Saunders MD at 17:10 EDT Tel , Service support ,
--- NOTE | 2019-10-27 16:52 | CT_ITS ---
STUDY: CT LUMBAR SPINE WITHOUT CONTRAST REASON FOR EXAM: Female, 74 years old. TRIPPED AND FELL. NECK/BACK, LEFT SIDED PAIN. RADIATION DOSAGE (If Supplied By Facility): CTDIvol = ( 19.19 ) mGy, DLP = ( 903.63 ) mGycm TECHNIQUE: The patient was scanned in a multi detector CT scanner. High resolution transaxial imaging was performed. Images were obtained from L1 to L5. Sagittal and coronal images were reconstructed. Individualized dose optimization techniques were used for this CT. COMPARISON: None FINDINGS: Lumbar alignment is within normal limits. Diffuse degenerative disc and facet disease. No severe central canal or foraminal stenoses are seen. No acute fractures or dislocations. No paraspinal hematoma is seen. Vascular calcifications. CT/Spine Lumbar without Contrast IMPRESSION: No CT evidence of acute osseous injury. Please note that MRI is more sensitive in detecting epidural hematoma or ligament disruption. If there is concern for either of these entities, MRI correlation should be considered possible. Electronically Signed: Nayan Saunders MD at 17:53 EDT Tel , Service support ,
--- NOTE | 2019-10-27 16:52 | CT_ITS ---
STUDY: CT THORACIC SPINE WITHOUT CONTRAST REASON FOR EXAM: Female, 74 years old. TRIPPED AND FELL. NECK/BACK, LEFT SIDED PAIN. RADIATION DOSAGE (If Supplied By Facility): CTDIvol = ( 17.61 ) mGy, DLP = ( 554.09 ) mGycm TECHNIQUE: The patient was scanned in a multi detector CT scanner. High resolution imaging was performed. Images were obtained from T1 to T12. Sagittal and coronal images were reconstructed. Individualized dose optimization techniques were used for this CT. COMPARISON: None. FINDINGS: Normal kyphosis of the thoracic spine. There is no substantial scoliosis. Diffuse spondylosis. Small hiatal hernia. CT/Spine Thoracic without Contras IMPRESSION: No acute osseous injury is evident. Note: MRI is more sensitive than CT in detecting cord injury, ligament injury, and epidural hematoma. If there is clinical concern for any of these entities, MRI correlation should be considered if possible. Electronically Signed: Nayan Saunders MD at 17:51 EDT Tel , Service support ,
[2019-10-27] MEDS: fentaNYL 100 MCG/2 ML Ampul 50 MCG IV (17:05)
[2019-10-27] MEDS: 0.9% Normal Saline 1,000 ML 150 ML IV (17:05)
[2019-10-27] MEDS: Ondansetron 4 MG/2 ML Vial IV (17:05)
[2019-10-27 17:29] LABS: International Normalized Ratio 1.1; Partial Thromboplast Time 27.6 Seconds (24.1-36.2); Prothrombin Time (Protime)PT. 13.5 SECONDS (11.7-14.9)
[2019-10-27 18:53] VITALS: BP 182/90; PULSE 72; RESP 18; O2SAT 99
== END 2019-10-27 19:14 | disposition home or self-care (01) ==
PROVIDERS: Emergency Provider Emergency Medicine; PCP Internal Medicine
DX: S09.90XA Unspecified injury of head, initial encounter (principal); S20.219A Contusion of unspecified front wall of thorax, initial encounter; S30.0XXA Contusion of lower back and pelvis, initial encounter; S70.02XA Contusion of left hip, initial encounter; S93.402A Sprain of unspecified ligament of left ankle, initial encounter; I25.10 Atherosclerotic heart disease of native coronary artery without angina pectoris; I10 Essential (primary) hypertension; E78.5 Hyperlipidemia, unspecified; F41.9 Anxiety disorder, unspecified; F32.9 Major depressive disorder, single episode, unspecified; Z95.1 Presence of aortocoronary bypass graft; Z86.73 Personal history of transient ischemic attack (TIA), and cerebral infarction without residual deficits; Z79.82 Long term (current) use of aspirin; W19.XXXA Unspecified fall, initial encounter
CPT/HCPCS: 70450; 71260; 72125; 72128; 72131; 73610; 74177; 80048; 80076; 83690; 85025; 85610; 85730; 93005; 96361; 96374; 96375; 99285; J7030; Q9967; A4216; J2405

== ENCOUNTER → 2019-12-15 12:55 | Outpatient (CLI) | payer MEDICARE, SELFPAY ==
[2017-12-28 13:50] VITALS: BMI 29.2
[2019-12-15 14:23] LABS: BUN 15 mg/dL (7-18); Creatinine, Serum 1.04 mg/dL (0.55-1.02); EST Glomerular Filtration Rate 55 mL/min (>60); Est Glom Filt Rate - Afr Amer 67 mL/min (>60)
== END ==
LOC: LAB 12:59
PROVIDERS: PCP Internal Medicine; Referring Provider Surgery Vascular Surgery; Visit Provider Surgery Vascular Surgery
DX: K21.00 Gastro-esophageal reflux disease with esophagitis, without bleeding (principal); E07.9 Disorder of thyroid, unspecified; I65.21 Occlusion and stenosis of right carotid artery; K21.9 Gastro-esophageal reflux disease without esophagitis; F32.9 Major depressive disorder, single episode, unspecified; R53.83 Other fatigue; E78.70 Disorder of bile acid and cholesterol metabolism, unspecified; I63.9 Cerebral infarction, unspecified; I51.9 Heart disease, unspecified; Z72.0 Tobacco use
CPT/HCPCS: 36415; 82565; 84520

== ENCOUNTER → 2020-01-02 14:20 | Outpatient (CLI) | payer MEDICARE, SELFPAY ==
[2017-12-28 13:50] VITALS: BMI 29.2
--- NOTE | 2020-01-02 14:26 | CT_ITS ---
STUDY: CTA NECK WITH CONTRAST REASON FOR EXAM: Female, 74 years old. CAROTID ARTERY STENOSIS RADIATION DOSAGE (If Supplied By Facility): CTDIvol = ( 19.08 ) mGy, DLP = ( 530.02 ) mGycm TECHNIQUE: CT angiography with multi-detector data acquisition was performed from the aortic arch to the skull base following intravenous administration of IV 100mL [id number]. MIP images were reconstructed from the axial data set. Post-processing of the angiographic images was performed, with multiplanar reformation and 3D reconstruction. Individualized dose optimization techniques were used for this CT. COMPARISON: None. FINDINGS: AORTIC ARCH: Normal visualized aortic arch. Intimal wall thickening with moderate narrowing at the origin of the left common carotid artery. RIGHT CAROTID ARTERIES: Normal right common carotid artery (CCA). There is mild atherosclerotic plaque formation with minimal narrowing of the right carotid bulb. Mild intimal wall thickening at the right carotid bulb. There is less than 50% stenosis. Normal origin of the right internal carotid (ICA) artery without a hemodynamically significant stenosis. Normal visualized cervical portion of the right internal carotid artery. Normal origin of the right external carotid artery (ECA). LEFT CAROTID ARTERIES: Normal left common carotid artery (CCA). There is mild atherosclerotic plaque formation with minimal narrowing of the left carotid bulb. Mild intimal wall thickening of the carotid bulb. Roughly 50% stenosis. Normal origin of the left internal carotid (ICA) artery without a hemodynamically significant stenosis. Normal visualized cervical portion of the left internal carotid artery. Normal origin of the left external carotid artery (ECA). VERTEBRAL ARTERIES: Normal bilateral vertebral arteries. CT/CTA Neck W/WO Contrast IMPRESSION: 1. There appears to be significant intimal wall thickening at the origin of the left common carotid artery from the aortic arch. This causes appearance of significant stenosis. 2. Plaque formation and intimal wall thickening at the bilateral carotid bulbs with less than 50% stenosis on the right and roughly 50% stenosis on the left. 3. Otherwise, the carotid arteries appear within normal limits. Normal appearance of the vertebral arteries. Electronically Signed: Brett Clement DO at 4:45 EST Tel , Service support ,
== END ==
PROVIDERS: PCP Internal Medicine; Referring Provider Surgery Vascular Surgery; Visit Provider Surgery Vascular Surgery
DX: I65.21 Occlusion and stenosis of right carotid artery (principal); I63.9 Cerebral infarction, unspecified; Z72.0 Tobacco use
CPT/HCPCS: 70498; Q9967

== ENCOUNTER 2020-04-20 06:28 | Outpatient (RCR) | payer MEDICARE, SELFPAY ==
[2017-12-28 13:50] VITALS: BMI 29.2
[2020-04-20] MEDS: COVID-19 VACC, MRNA(PFIZER)/PF 30 MCG/0.3 ML SYRINGE IM (14:39)
[2020-05-11] MEDS: COVID-19 VACC, MRNA(PFIZER)/PF 30 MCG/0.3 ML SYRINGE IM (14:11)
== END 2020-07-17 23:59 ==
LOC: IMMUN 06:28
PROVIDERS: PCP Internal Medicine; Referring Provider Family Medicine; Visit Provider Family Medicine
DX: Z23 Encounter for immunization (principal)
CPT/HCPCS: 0001A; 0002A; 91300

== ENCOUNTER 2020-07-13 14:46 | Emergency (ER) | payer MEDICARE, SELFPAY ==
[2017-12-28 13:50] VITALS: BMI 29.2
[2020-07-13 14:46] VITALS: BP 120/61; PULSE 79; RESP 18; TEMP 36.6; O2SAT 94
--- NOTE | 2020-07-13 16:23 | ED.VIS.BACK ---
HPI History of Present Illness Chief Complaint: Lower Extremity Injury Informant: patient Onset/Context/Timing Onset: Weeks Chronic pain exacerbated by: Worse the past week Injury: - (History of chronic back pain) Current Severity: Moderate Maximum Severity: Severe Worsened by: improves with Movement, Ambulation, Bending and Lifting Relieved by: Nothing Associated Symptoms Associated Symptoms: Radiation to Left Leg; Negative for Numbness, Tingling, Radiation to Right Leg, Fever, Abdominal Pain, Dysuria, Unable to Ambulate, Unable to Transfer, Urinary Retention, Urinary Incontinence, Constipation and Fecal Incontinence Narrative Narrative: Patient is an elderly woman with history of degenerative disc disease of the lumbar spine, depression anxiety who presents with exacerbation of her chronic back pain for the past week. There is no history of trauma. She denies bowel bladder dysfunction. She denies saddle paresthesia or anesthesia. She denies foot drop. Denies buckling of her knees going up or down steps. She denies history of abdominal aortic aneurysm. She is had no recent dental work. She denies fever, chills or night sweats. She denies weight loss or weight gain. Patient states she is in pain management. She does have significant past medical history which includes CVA, COPD, coronary artery disease hyperlipidemia and secondary pulmonary arterial hypertension. Prior similar symptoms: Yes and With Prior Back Pain Recent Illness/Hospitalization: No PFSH PFSH Medical History Anxiety and depression Atherosclerosis of coronary artery of [place] with angina pectoris Back pain Benzodiazepine dependence COPD (chronic obstructive pulmonary disease) Essential (primary) hypertension H/O: pneumonia Hyperlipidemia Hypothyroidism Nicotine dependence Non-rheumatic tricuspid valve insufficiency Obstructive sleep apnea Secondary pulmonary arterial hypertension TIA (transient ischemic attack) Home Medications aspirin 81 mg PO DAILY@0800 09/06/17 [History Last Taken 10/03/18 08:00] levothyroxine 75 mcg PO DAILY 09/06/17 [History Last Taken 10/03/18 07:00] citalopram 40 mg tablet 40 mg PO DAILY 12/18/17 [History Last Taken 10/03/18 08:00] clopidogrel 75 mg tablet 75 mg PO QODAY 12/18/17 [History Last Taken 01/16/19] lisinopril 40 mg tablet 40 mg PO DAILY tab 12/18/17 [History Last Taken 10/03/18 08:00] atenolol 25 mg PO DAILY 01/05/18 [History Last Taken 10/03/18 08:00] atorvastatin 40 mg PO DAILY 01/05/18 [History Last Taken 10/02/18 22:00] citalopram 20 mg PO LUNCH 06/27/18 [History Last Taken 10/03/18 12:00] lorazepam 1 mg PO 4X/DAY 06/28/18 [History Last Taken 10/03/18 12:00] albuterol sulfate 0.63 mg/3 mL solution for nebulization 0.63 mg INHALATION Q4H PRN 07/14/18 [History Last Taken Unknown] bupropion HCl 100 mg PO DAILY 01/16/19 [History Last Taken Unknown] ondansetron 4 mg PO Q8H PRN PRN #10 tab 01/16/19 [Rx Last Taken Unknown] pantoprazole 40 mg PO DAILY 01/16/19 [History Last Taken Unknown] donepezil 5 mg PO QHS 10/10/19 [History Last Taken Unknown] fexofenadine 60 mg PO DAILY 10/10/19 [History Last Taken Unknown] meloxicam 15 mg PO DAILY 10/10/19 [History Last Taken Unknown] Allergy/AdvReac Type Severity Reaction Status Date / Time morphine Allergy PT UNSURE Verified 10/27/19 15:57 Penicillins Allergy Hives Verified 10/27/19 15:57 tramadol HCl [From Ultram] Allergy PT UNSURE Verified 10/27/19 15:57 bupropion [From Wellbutrin] AdvReac hallucinati Verified 10/27/19 15:57 ons Surgical History History of appendectomy History of coronary artery bypass graft x 3 History of coronary artery stent placement (12/28/17) History of left heart catheterization (12/28/17) Hx of cholecystectomy Social History (Updated 07/13/20 @ 16:[address] Sourav Thurston MD) household members: other Smoking Status: Current every day smoker tobacco type: cigarettes details: Patient denies alcohol use substance use type: does not use ROS ROS ED Constitutional Constitutional ED: Denies chills, fever(s), subjective or sweats Eyes Eyes: Denies blurry vision, change in vision or diplopia ENT ENT ED: Denies ear pain, rhinorrhea or sore throat Cardiovascular Cardiovascular: Denies chest pain, orthopnea, palpitations or racing heartbeat Respiratory/Chest Respiratory/Chest: Denies dyspnea, dyspnea on exertion or orthopnea Gastrointestinal Gastrointestinal: Denies abdominal pain, diarrhea, nausea or vomiting Genitourinary Genitourinary ED: Denies dysuria, hematuria or urinary frequency Musculoskeletal Musculoskeletal: Reports back pain; Denies arthralgias or myalgias Integumentary Denies Abrasions or rash Neurologic Neurologic: Denies paresthesias or weakness Psychiatric Psychiatric: Reports anxiety and depression Hematologic/Lymphatic Hematologic/Lymphatic: Denies easy bleeding or easy bruising EXAM Physical Exam Const Vital Signs: 07/13/20 14:46 Temperature 98 F Temperature Source Temporal Pulse Rate 79 Respiratory Rate 18 Blood Pressure 120/61 Blood Pressure Mean 80 Pulse Ox 94 Oxygen Delivery Method Room Air Positive well nourished, well developed and unkempt General Appearance ED: unkempt, well developed and other Patient is lying on her right side with her hip and knees in flexion HEENT Reports TM's clear HEENT Narrative: Face is symmetric. Nares patent. There is no evidence of trauma. Tympanic Membrane ED: Yes TM's clear Eyes PERRL and EOMs intact bilaterally General Eye ED: Negative for pale conjunctiva or scleral icterus Neck no lymphadenopathy and supple Resp normal respiratory effort Cardio regular rate, regular rhythm, S1 normal heart sound, S2 normal heart sound and no murmurs GI normal to inspection, nondistended, normoactive bowel sounds, soft to palpation and non-tender GI Narrative: There is no palpable pulsatile mass. There is no abdominal bruit. Back/Spine normal to inspection; Negative for no thoracic nor lumbar tenderness Back/Spine Narrative: Patella and ankle reflex are 2+. EHLs intact. 5/5 strength with plantar and dorsiflexion. She has normal sensation over the L4 4 and L5 dermatome. She has normal sensation in the gluteal area as well. Lumbar Spine / Lower Back: straight leg raise negative bilaterally Extremity normal to inspection; Negative for no clubbing, cyanosis or edema General Extremety ED: Negative for edema or tenderness General Extremity: Negative for edema Neuro oriented x3 and no sensory deficits noted Neuro Narrative: There is no clonus or Babinski sign. Sensorium / Orientation: alert Deep Tendon Reflexes: Rt Patellar (L4): 2+, Lt Patellar (L4): 2+, Rt Ankle (S1): 2+ and Lt Ankle (S1): 2+ Deep Tendon Reflexes Back: Rt Patellar (L4): 2+, Lt Patellar (L4): 2+, Rt Ankle (S1): 2+ and Lt Ankle (S1): 2+ Plantar Reflex: Downgoing: bilateral Psych Appearance: unkempt Mood & Affect: depressed Skin no rashes or lesions noted MDM MDM MDM Narrative Medical decision making narrative: Patient states she will get a ride home. Morphine was ordered. I was informed she cannot take it because she is allergic. Reviewing what is documented there is no reaction. She states she cannot breathe. She also has allergy to tramadol. She apparently has trouble with breathing as well. Patient specifically requested Percocet. Patient's was informed since she has problems breathing with tramadol and morphine and does not have a ride that she can follow-up with her pain management physician for treatment of this chronic back pain for the past several years. Discharge Plan Triage Chief Complaint: Lower Extremity Injury ED Provider: Sourav Thurston Dx/Rx/DC Orders Clinical Impression: Acute exacerbation of chronic low back pain, DDD (degenerative disc disease), lumbar Instructions: ED Back Pain (Acute or Chronic) Prescriptions: No Action clopidogrel 75 mg tablet 75 mg PO QODAY RF: 0 albuterol sulfate 0.63 mg/3 mL solution for nebulization 0.63 mg INHALATION Q4H PRN (Reason: Congestion) RF: 0 aspirin 81 MG tablet 81 mg PO DAILY@0800 RF: 0 levothyroxine 75 MCG tablet 75 mcg PO DAILY RF: 0 citalopram 40 mg tablet 40 mg PO DAILY RF: 0 lisinopril 40 mg tablet 40 mg PO DAILY RF: 0 atenolol 50 MG tablet 25 mg PO DAILY RF: 0 atorvastatin 40 MG tablet 40 mg PO DAILY RF: 0 citalopram 20 MG tablet 20 mg PO LUNCH RF: 0 lorazepam 1 MG tablet 1 mg PO 4X/DAY RF: 0 bupropion HCl 100 MG tablet 100 mg PO DAILY RF: 0 pantoprazole 40 MG tablet 40 mg PO DAILY RF: 0 ondansetron 4 MG tablet 4 mg PO Q8H PRN PRN (Reason: Nausea) Qty: 10 RF: 0 donepezil 5 MG tablet 5 mg PO QHS RF: 0 fexofenadine 60 MG tablet 60 mg PO DAILY RF: 0 meloxicam 15 MG tablet 15 mg PO DAILY RF: 0 Primary Care Provider: Zully Rojas Referrals: Zully Rojas MD [Primary Care Provider] - As Needed Disposition Disposition: Home, self care
--- NOTE | 2020-07-13 16:32 | ED.RN ---
Pt walking out of ER department. Stated that the Dr said he cant do anything for me so Im not waiting on my paperwork and am just going to go home and lay down Dr Thurston made aware
== END 2020-07-13 16:34 | disposition home or self-care (01) ==
PROVIDERS: Emergency Provider Emergency Medicine; PCP Internal Medicine
DX: M54.9 Dorsalgia, unspecified (principal); G89.29 Other chronic pain; M51.36 Other intervertebral disc degeneration, lumbar region; F17.210 Nicotine dependence, cigarettes, uncomplicated; I25.119 Atherosclerotic heart disease of native coronary artery with unspecified angina pectoris; Z86.73 Personal history of transient ischemic attack (TIA), and cerebral infarction without residual deficits
CPT/HCPCS: 99282

== ENCOUNTER 2020-09-17 18:39 | Emergency (ER) | payer MEDICARE, SELFPAY ==
[2017-12-28 13:50] VITALS: BMI 29.2
[2020-09-17 18:42] VITALS: BP 147/64; PULSE 71; RESP 13; TEMP 36.3; O2SAT 96; BMI 30.6
--- NOTE | 2020-09-17 18:53 | EKG12_ITS ---
Test Reason : CP Blood Pressure : / mmHG Vent. Rate : 061 BPM Atrial Rate : 061 BPM P-R Int : 188 ms QRS Dur : 094 ms QT Int : 452 ms P-R-T Axes : 012 043 108 degrees QTc Int : 455 ms Normal sinus rhythm Nonspecific T wave abnormality Abnormal ECG Confirmed by LEONEL GOLD, EMILY ([id number]), proposal editor WALLY LOAIZA ([id number]) on 09/19/2020 10:42:31 AM Referred By: KIMBERLEY Confirmed By:EMILY CASTANEDA MD
--- NOTE | 2020-09-17 19:00 | RAD_ITS ---
INDICATION: chest pain EXAMINATION/TECHNIQUE: X-RAY - XR Chest 1 View COMPARISON: None. FINDINGS: The lungs are clear. Sternal cerclage wires and vascular clips are present from a prior sternotomy and coronary artery bypass graft procedure (CABG). No pleural effusion or pneumothorax. Degenerative changes of the thoracic spine and shoulders. RAD/Chest 1 View (Portable) IMPRESSION: No acute radiographic abnormalities. Electronically Signed: Jv Vazquez MD at 19:14 EDT Tel , Service support ,
[2020-09-17 19:10] VITALS: O2SAT 96
[2020-09-17 19:47] LABS: Absolute Lymphocyte Count 4.25 X10^3/uL (0.83-4.51); Absolute Neutrophil Count 6.1 X10^3/uL (2.0-7.7); Basophil# 0.07 X10^3/uL; Basophil% 0.6 % (0-1); Eosinophil# 0.24 X10^3/uL; Eosinophils% 2.1 % (0-5); Hematocrit 41.6 % (37-47); Hemoglobin 13.5 g/dL (12.0-15.0); Lymphocyte # 4.25 X10^3/ul (0.83-4.51); Lymphocyte % 37.5 % (19-41); Mean Corp Hgb Conc 32.5 g/dL (32-36); Mean Corpuscular Hgb 29.9 pg (27.0-32.0); Mean Platelet Vol. 11.5 fl (6.2-12.0); Monocyte# 0.63 X10^3/uL; Monocyte% 5.6 % (0-10); NRBC Flagged by Analyzer 0 % (0-5); Neutrophil % 53.8 % (47-70); Platelet Count 301 K/mm3 (150-450); RBC Distribution Width CV 12.5 % (11.6-14.6); Red Blood Count 4.52 M/mm3 (4.2-5.4); White Blood Count 11.3 K/mm3 (4.4-11.0)
[2020-09-17 20:05] LABS: Anion Gap 3 (5-15); BUN 13 mg/dL (7-18); BUN/Creat Ratio 14.8 RATIO (10-20); Calcium,Total 8.7 mg/dL (8.5-10.1); Chloride 105 mmol/L (98-107); Creatinine, Serum 0.88 mg/dL (0.55-1.02); EST Glomerular Filtration Rate 67 mL/min (>60); Est Glom Filt Rate - Afr Amer 81 mL/min (>60); Estimated Creatinine Clearance 45.03 ml/min; Glucose 97 mg/dL (74-106); Potassium 3.5 mmol/L (3.5-5.1); Sodium Level 140 mmol/L (136-145); Troponin-I HS 11.9 pg/mL (3.0-53.7)
--- NOTE | 2020-09-17 20:49 | ED.VIS.CHEST ---
HPI History of Present Illness Chief Complaint: Chest Pain Informant: patient Narrative Narrative: Patient is a 75-year-old female with extensive medical history including pulmonary atrial hypertension, coronary artery disease, stroke and COPD presenting with chest pain. Patient states she was laying on the couch always and she felt pain in her left arm. States the pain was so bad that took her breath away. It radiated to her breast. She sat up and then started feel lightheaded so she lowered her self to the ground. She noted she felt short of breath. She denies any associated loss of consciousness or syncope. Patient was given nitroglycerin in route via EMS for her pain and felt better. Patient does not wear home oxygen but feels that she needs it. She states she had prior episodes like this but states is from stroke. She denies any associated weakness or paresthesias. She denies any vision changes. Patient notes that she did take her wheelchair out on a walk around the block today but notes that he was bothering her breathing. She states her breathing is currently at its baseline. She denies any other complaints at this time. [facility] Medical History Anxiety and depression Atherosclerosis of coronary artery of [place] heart with angina pectoris Back pain Benzodiazepine dependence COPD (chronic obstructive pulmonary disease) Essential (primary) hypertension H/O: pneumonia Hyperlipidemia Hypothyroidism Nicotine dependence Non-rheumatic tricuspid valve insufficiency Obstructive sleep apnea Secondary pulmonary arterial hypertension TIA (transient ischemic attack) Home Medications aspirin 81 mg PO DAILY@0800 09/06/17 [History Last Taken 10/03/18 08:00] levothyroxine 75 mcg PO DAILY 09/06/17 [History Last Taken 10/03/18 07:00] citalopram 40 mg tablet 40 mg PO DAILY 12/18/17 [History Last Taken 10/03/18 08:00] clopidogrel 75 mg tablet 75 mg PO QODAY 12/18/17 [History Last Taken 01/16/19] lisinopril 40 mg tablet 40 mg PO DAILY tab 12/18/17 [History Last Taken 10/03/18 08:00] atenolol 25 mg PO DAILY 01/05/18 [History Last Taken 10/03/18 08:00] atorvastatin 40 mg PO DAILY 01/05/18 [History Last Taken 10/02/18 22:00] citalopram 20 mg PO LUNCH 06/27/18 [History Last Taken 10/03/18 12:00] lorazepam 1 mg PO 4X/DAY 06/28/18 [History Last Taken 10/03/18 12:00] albuterol sulfate 0.63 mg/3 mL solution for nebulization 0.63 mg INHALATION Q4H PRN 07/14/18 [History Last Taken Unknown] bupropion HCl 100 mg PO DAILY 01/16/19 [History Last Taken Unknown] ondansetron 4 mg PO Q8H PRN PRN #10 tab 01/16/19 [Rx Last Taken Unknown] pantoprazole 40 mg PO DAILY 01/16/19 [History Last Taken Unknown] donepezil 5 mg PO QHS 10/10/19 [History Last Taken Unknown] fexofenadine 60 mg PO DAILY 10/10/19 [History Last Taken Unknown] meloxicam 15 mg PO DAILY 10/10/19 [History Last Taken Unknown] Allergy/AdvReac Type Severity Reaction Status Date / Time morphine Allergy PT UNSURE Verified 09/17/20 18:45 Penicillins Allergy Hives Verified 09/17/20 18:45 tramadol HCl [From Ultram] Allergy PT UNSURE Verified 09/17/20 18:45 bupropion [From Wellbutrin] AdvReac hallucinati Verified 09/17/20 18:45 ons Surgical History History of appendectomy History of coronary artery bypass graft x 3 History of coronary artery stent placement (12/28/17) History of left heart catheterization (12/28/17) Hx of cholecystectomy Social History (Updated 07/13/20 @ 16:[address] Sourav Thurston MD) household members: other Smoking Status: Current every day smoker tobacco type: cigarettes details: Patient denies alcohol use substance use type: does not use ROS ROS ED Constitutional Constitutional ED: Denies fatigue or weakness Eyes Eyes: Denies blurry vision Cardiovascular Cardiovascular: Reports chest pain Respiratory/Chest Respiratory/Chest: Reports cough, dyspnea and dyspnea on exertion Gastrointestinal Gastrointestinal: Denies abdominal pain, nausea or vomiting Genitourinary Genitourinary ED: Denies decreased urination or dysuria Musculoskeletal Musculoskeletal: Denies arthralgias, extremity pain or myalgias Integumentary Denies new lesions or rash Neurologic Neurologic: Denies paresthesias or weakness Psychiatric Psychiatric: Denies anxiety or depression Hematologic/Lymphatic Hematologic/Lymphatic: Denies easy bleeding or easy bruising EXAM Physical Exam Const Vital Signs: 09/17/20 18:42 09/17/20 19:10 09/17/20 19:11 Temperature 97.4 F L Temperature Source Temporal Pulse Rate 71 Respiratory Rate 13 Respiratory Effort Normal Non-Labored Blood Pressure 147/64 H Blood Pressure Mean 91 Pulse Ox 96 96 Oxygen Delivery Method Room Air Room Air 09/17/20 21:26 Temperature Temperature Source Pulse Rate 55 L Respiratory Rate 18 Respiratory Effort Blood Pressure 155/74 H Blood Pressure Mean 101 Pulse Ox 97 Oxygen Delivery Method Room Air Positive well nourished and well developed General Appearance ED: well developed HEENT Reports TM's clear normocephalic and atraumatic Tympanic Membrane ED: Yes TM's clear Eyes PERRL and EOMs intact bilaterally Neck no lymphadenopathy, supple and no JVD Chest Wall inspection of chest normal Resp normal respiratory effort and clear to auscultation bilaterally Effort and Inspection: Negative for respiratory distress Auscultation: Negative for wheezes Cardio regular rate, regular rhythm and no murmurs GI normal to inspection, nondistended, normoactive bowel sounds Back/Spine no CVA tenderness Extremity normal to inspection General Extremety ED: Negative for edema or tenderness General Extremity: Negative for edema Neuro oriented x3, CN's II-XII intact bilaterally and no sensory deficits noted Sensorium / Orientation: awake and alert Motor Exam: strength 5/5 throughout Psych mental status grossly normal Mood & Affect: anxious Skin no rashes or lesions noted Heart Score History: Moderately Suspicious ECG: Nonspecific Repolarization Age: >/= 65 years Risk Factors: >/= 3 Risk Factors or History of CAD Troponin: </= Normal Limit Score: 6 MDM MDM MDM Narrative Medical decision making narrative: Patient is evaluated for an episode of left arm pain with radiation to her chest as well as lightheadedness. Patient received nitro in route with improvement of her symptoms. She does have significant cardiac and pulmonary history. She is having focal neurologic deficits I do not think this is a stroke. EKG does not show any acute ischemic processes but does show T wave inversions in 1 and aVL. These are not significantly changed. Patient's cardiac work-up is largely unremarkable with a normal high since her troponin x2. Chest x-ray does not show an acute process. She has a mild leukocytosis 11.3 which is pretty nonspecific. There is no obvious or some infection. Patient is high risk for cardiac event given her medical history and her story however patient eloped from the emergency room before she can be admitted to the hospital or before I can go over her results. Lab Data Attestation: I reviewed the patient's lab results. Labs: Laboratory Results - last 24 hr 09/17/20 09/17/20 09/17/20 18:45 18:45 21:15 WBC 11.3 H RBC 4.52 Hgb 13.5 Hct 41.6 MCV 92.0 MCH 29.9 MCHC 32.5 RDW Std Deviation 42.0 RDW Coeff of John 12.5 Plt Count 301 MPV 11.5 Immature Gran % (Auto) 0.400 Neut % (Auto) 53.8 Lymph % (Auto) 37.5 Dent % (Auto) 5.6 Eos % (Auto) 2.1 Baso % (Auto) 0.6 Absolute Neuts (auto) 6.1 Absolute Lymphs (auto) 4.25 Nucleated RBC % 0 Sodium 140 Potassium 3.5 Chloride 105 Carbon Dioxide 32.0 Anion Gap 3 L BUN 13 Creatinine 0.88 Estim Creat Clear Calc 45.03 Est GFR (MDRD) Af Amer 81 Est GFR (MDRD) Non-Af 67 BUN/Creatinine Ratio 14.8 Glucose 97 Calcium 8.7 Troponin I High Sens 11.9 13.4 Radiography Chest X-Ray - ED: 1 View, Read by ED Physician, Read by Radiologist and No Acute Disease Diagnostic Testing: Radiology Impression Chest X-Ray 09/17/20 19:00 IMPRESSION: No acute radiographic abnormalities. Electronically Signed: Jv Vazquez MD at 19:14 EDT Tel , Service support , Rhythm Strip Rhythm Strip: Sinus Rhythm Rate: 61 Ectopy: None EKG Initial EKG: Attestation: I personally reviewed and interpreted this EKG as follows: Interpretation: Sinus Rhythm Comments: Normal sinus rhythm rate 61 Normal axis Normal intervals T wave inversions in 1 and aVL with no reciprocal changes Prior: Unchanged Discharge Plan Triage Chief Complaint: Chest Pain ED Provider: Danica Casillas Dx/Rx/DC Orders Clinical Impression: Chest pain Prescriptions: No Action clopidogrel 75 mg tablet 75 mg PO QODAY RF: 0 albuterol sulfate 0.63 mg/3 mL solution for nebulization 0.63 mg INHALATION Q4H PRN (Reason: Congestion) RF: 0 aspirin 81 MG tablet 81 mg PO DAILY@0800 RF: 0 levothyroxine 75 MCG tablet 75 mcg PO DAILY RF: 0 citalopram 40 mg tablet 40 mg PO DAILY RF: 0 lisinopril 40 mg tablet 40 mg PO DAILY RF: 0 atenolol 50 MG tablet 25 mg PO DAILY RF: 0 atorvastatin 40 MG tablet 40 mg PO DAILY RF: 0 citalopram 20 MG tablet 20 mg PO LUNCH RF: 0 lorazepam 1 MG tablet 1 mg PO 4X/DAY RF: 0 bupropion HCl 100 MG tablet 100 mg PO DAILY RF: 0 pantoprazole 40 MG tablet 40 mg PO DAILY RF: 0 ondansetron 4 MG tablet 4 mg PO Q8H PRN PRN (Reason: Nausea) Qty: 10 RF: 0 donepezil 5 MG tablet 5 mg PO QHS RF: 0 fexofenadine 60 MG tablet 60 mg PO DAILY RF: 0 meloxicam 15 MG tablet 15 mg PO DAILY RF: 0 Primary Care Provider: Zully Rojas Referrals: Zully Rojas MD [Primary Care Provider] - Disposition Disposition: Elopement
[2020-09-17 21:26] VITALS: BP 155/74; PULSE 55; RESP 18; O2SAT 97
[2020-09-17] MEDS: LORazepam 1 MG Tablet PO (22:09)
--- NOTE | 2020-09-17 22:09 | ED.RN ---
Pt upset because she had to wait on Ativan. I did ask the MD multiple times. 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 she normally takes it at 1999. PT states she is leaving and going home. I was able to get her an Ativan, pulled her IV and called for an taxi. ETA [address] Casillas aware.
[2020-09-17 22:24] LABS: Troponin-I HS 13.4 pg/mL (3.0-53.7)
== END 2020-09-17 22:15 | disposition left against medical advice (07) ==
PROVIDERS: Emergency Provider Emergency Medicine; PCP Internal Medicine
DX: R07.9 Chest pain, unspecified (principal); I25.119 Atherosclerotic heart disease of native coronary artery with unspecified angina pectoris; F17.210 Nicotine dependence, cigarettes, uncomplicated
CPT/HCPCS: 36415; 71045; 80048; 84484; 85025; 93005; 99285; A4216

== ENCOUNTER 2020-10-19 10:51 | Emergency (ER) | payer MEDICARE, SELFPAY ==
[2017-12-28 13:50] VITALS: BMI 29.2
[2020-10-19 10:51] VITALS: BP 158/71; PULSE 61; RESP 18; TEMP 36.1; BMI 29.6
--- NOTE | 2020-10-19 11:13 | EX.ED.DYSGE1 ---
HPI History of Present Illness Chief Complaint: General Illness Informant: patient Narrative Narrative: 75-year-old female states that around 14 October she woke up and just did not feel well. She states there is nothing specific she just felt poorly. 2 days later she went and had a Covid test that was negative. She states that yesterday she began to experience nausea but no vomiting decreased appetite headache. She denies any fevers cough or shortness of breath. She continues to feel fatigued. Describes the headache as frontal in nature. She states that last week she started a nasal spray for sinus congestion. She feels dizzy at times. She called her doctor's office and they recommended that she came to emergency. [facility] Medical History Anxiety and depression Atherosclerosis of coronary artery of [place] heart with angina pectoris Back pain Benzodiazepine dependence COPD (chronic obstructive pulmonary disease) Essential (primary) hypertension H/O: pneumonia Hyperlipidemia Hypothyroidism Nicotine dependence Non-rheumatic tricuspid valve insufficiency Obstructive sleep apnea Secondary pulmonary arterial hypertension TIA (transient ischemic attack) Home Medications aspirin 81 mg PO DAILY@0800 09/06/17 [History Last Taken 10/03/18 08:00] levothyroxine 75 mcg PO DAILY 09/06/17 [History Last Taken 10/03/18 07:00] citalopram 40 mg tablet 40 mg PO DAILY 12/18/17 [History Last Taken 10/03/18 08:00] clopidogrel 75 mg tablet 75 mg PO QODAY 12/18/17 [History Last Taken 01/16/19] lisinopril 40 mg tablet 40 mg PO DAILY tab 12/18/17 [History Last Taken 10/03/18 08:00] atenolol 25 mg PO DAILY 01/05/18 [History Last Taken 10/03/18 08:00] atorvastatin 40 mg PO DAILY 01/05/18 [History Last Taken 10/02/18 22:00] citalopram 20 mg PO LUNCH 06/27/18 [History Last Taken 10/03/18 12:00] lorazepam 1 mg PO 4X/DAY 06/28/18 [History Last Taken 10/03/18 12:00] albuterol sulfate 0.63 mg/3 mL solution for nebulization 0.63 mg INHALATION Q4H PRN 07/14/18 [History Last Taken Unknown] bupropion HCl 100 mg PO DAILY 01/16/19 [History Last Taken Unknown] ondansetron 4 mg PO Q8H PRN PRN #10 tab 01/16/19 [Rx Last Taken Unknown] pantoprazole 40 mg PO DAILY 01/16/19 [History Last Taken Unknown] donepezil 5 mg PO QHS 10/10/19 [History Last Taken Unknown] fexofenadine 60 mg PO DAILY 10/10/19 [History Last Taken Unknown] meloxicam 15 mg PO DAILY 10/10/19 [History Last Taken Unknown] ketorolac 10 mg PO TID PRN #10 tab 10/19/20 [Rx Last Taken Unknown] ondansetron 4 mg PO Q6H PRN PRN #15 tab 10/19/20 [Rx Last Taken Unknown] Allergy/AdvReac Type Severity Reaction Status Date / Time morphine Allergy PT UNSURE Verified 10/19/20 11:03 Penicillins Allergy Hives Verified 10/19/20 11:03 tramadol HCl [From Ultram] Allergy PT UNSURE Verified 10/19/20 11:03 bupropion [From Wellbutrin] AdvReac hallucinati Verified 10/19/20 11:03 ons Surgical History History of appendectomy History of coronary artery bypass graft x 3 History of coronary artery stent placement (12/28/17) History of left heart catheterization (12/28/17) Hx of cholecystectomy Social History household members: other Smoking Status: Current every day smoker tobacco type: cigarettes details: Patient denies alcohol use substance use type: does not use ROS ROS ED ROS Narrative Fatigue Constitutional Constitutional ED: Denies chills or weight loss Eyes Eyes: Denies change in vision or diplopia ENT ENT ED: Denies ear pain, rhinorrhea or sore throat Cardiovascular Cardiovascular: Denies chest pain, orthopnea, palpitations or racing heartbeat Respiratory/Chest Respiratory/Chest: Denies cough, dyspnea or orthopnea Gastrointestinal Gastrointestinal: Reports nausea; Denies abdominal pain, diarrhea or vomiting Genitourinary Genitourinary ED: Reports dysuria; Denies hematuria or urinary frequency Musculoskeletal Musculoskeletal: Reports myalgias; Denies arthralgias Integumentary Denies abscess or rash Neurologic Neurologic: Reports headache(s); Denies weakness Psychiatric Psychiatric: Denies anxiety, depression, suicidal ideation or suicidal thoughts Endocrine Endocrinology: Denies polydipsia, polyphagia or polyuria Allergic/Immunologic Allergic/Immunologic ED: Denies mouth swelling, tongue swelling or urticaria EXAM Physical Exam Const Vital Signs: 10/19/20 10:51 10/19/20 12:12 Temperature 96.9 F L Temperature Source Temporal Pulse Rate 61 55 L Respiratory Rate 18 20 H Blood Pressure 158/71 H 161/46 H Blood Pressure Mean 100 84 Pulse Ox 92 Oxygen Delivery Method Room Air Positive well nourished and well developed General Appearance ED: well developed HEENT Reports normocephalic, head/scalp atraumatic and moist mucous membranes Eyes PERRL and EOMs intact bilaterally Neck no lymphadenopathy, supple and no JVD Resp normal respiratory effort and clear to auscultation bilaterally Cardio regular rate, regular rhythm and no murmurs GI normal to inspection, nondistended, normoactive bowel sounds and non-tender Palpation: soft Back/Spine no CVA tenderness and normal ROM Extremity normal to inspection General Extremety ED: Negative for edema General Extremity: Negative for edema Neuro oriented x3 and CN's II-XII intact bilaterally Sensorium / Orientation: alert Motor Exam: strength 5/5 throughout Psych mental status grossly normal Mood & Affect: Negative for depressed or tearful Skin no rashes or lesions noted and no wounds MDM MDM MDM Narrative Medical decision making narrative: Basic blood work was negative. Urinalysis negative. CT the brain unremarkable. Patient received IV fluids Toradol and Zofran and feels improved. She would like to be redosed. I can write for her to have some Zofran and Toradol at home. Would recommend follow-up with primary care. Lab Data Attestation: I reviewed the patient's lab results. Labs: Laboratory Results - last 24 hr 10/19/20 10/19/20 10/19/20 11:30 11:30 11:50 WBC 9.6 RBC 4.86 Hgb 13.9 Hct 43.1 MCV 88.7 MCH 28.6 MCHC 32.3 RDW Std Deviation 40.6 RDW Coeff of John 12.5 Plt Count 310 MPV 10.6 Immature Gran % (Auto) 0.500 Neut % (Auto) 63.7 Lymph % (Auto) 30.6 [place] % (Auto) 3.3 Eos % (Auto) 1.4 Baso % (Auto) 0.5 Absolute Neuts (auto) 6.1 Absolute Lymphs (auto) 2.94 Nucleated RBC % 0 Sodium 140 Potassium 3.8 Chloride 107 Carbon Dioxide 30.0 Anion Gap 3 L BUN 15 Creatinine 0.92 Estim Creat Clear Calc 41.10 Est GFR (MDRD) Af Amer 77 Est GFR (MDRD) Non-Af 64 BUN/Creatinine Ratio 16.4 Glucose 125 H Calcium 8.6 Total Bilirubin 0.90 AST 14 L ALT 20 Alkaline Phosphatase 127 H Total Protein 7.3 Albumin 3.4 Globulin 3.9 Albumin/Globulin Ratio 0.9 Urine Color Yellow Urine Clarity Cloudy Urine pH 6.0 Ur Specific [place] 1.015 Urine Protein Negative Urine Glucose (UA) Normal Urine Ketones Negative Urine Occult Blood 25 H Urine Nitrite Negative Urine Bilirubin Negative Urine Urobilinogen Normal Ur Leukocyte Esterase 500 H Urine RBC 0 SEEN Urine WBC 5-10 SEEN Ur Squamous Epith Cells 0-5 SEEN Urine Bacteria 0 SEEN Urine Mucus 0 SEEN Radiography Diagnostic Testing: Radiology Impression Brain CT 10/19/20 12:14 IMPRESSION: Chronic involutional changes of the brain. Electronically Signed: Gonzales Dowell MD at 12:27 EDT , Service support , Discharge Plan Triage Chief Complaint: General Illness ED Provider: Humberto Cheek Dx/Rx/DC Orders Clinical Impression: Headache, Nausea Prescriptions: New ondansetron [ondansetron] 4 MG tablet 4 mg PO Q6H PRN PRN (Reason: Nausea) Qty: 15 RF: 0 ketorolac 10 mg tablet 10 mg PO TID PRN (Reason: pain) Qty: 10 RF: 0 No Action clopidogrel 75 mg tablet 75 mg PO QODAY RF: 0 albuterol sulfate 0.63 mg/3 mL solution for nebulization 0.63 mg INHALATION Q4H PRN (Reason: Congestion) RF: 0 aspirin 81 MG tablet 81 mg PO DAILY@0800 RF: 0 levothyroxine 75 MCG tablet 75 mcg PO DAILY RF: 0 citalopram 40 mg tablet 40 mg PO DAILY RF: 0 lisinopril 40 mg tablet 40 mg PO DAILY RF: 0 atenolol 50 MG tablet 25 mg PO DAILY RF: 0 atorvastatin 40 MG tablet 40 mg PO DAILY RF: 0 citalopram 20 MG tablet 20 mg PO LUNCH RF: 0 lorazepam 1 MG tablet 1 mg PO 4X/DAY RF: 0 bupropion HCl 100 MG tablet 100 mg PO DAILY RF: 0 pantoprazole 40 MG tablet 40 mg PO DAILY RF: 0 ondansetron 4 MG tablet 4 mg PO Q8H PRN PRN (Reason: Nausea) Qty: 10 RF: 0 donepezil 5 MG tablet 5 mg PO QHS RF: 0 fexofenadine 60 MG tablet 60 mg PO DAILY RF: 0 meloxicam 15 MG tablet 15 mg PO DAILY RF: 0 Primary Care Provider: Zully Rojas Referrals: Zully Rojas MD [Primary Care Provider] - 3-5 Days if not improving Disposition Disposition: Home, Self Care
[2020-10-19] MEDS: 0.9% Normal Saline 1,000 ML 1000 ML IV (11:34)
[2020-10-19] MEDS: Ondansetron 4 MG/2 ML Vial IV ×2 (11:35→14:13)
[2020-10-19] MEDS: Ketorolac 15 MG/ML Vial IV ×2 (11:35→14:12)
[2020-10-19 11:41] LABS: Absolute Lymphocyte Count 2.94 X10^3/uL (0.83-4.51); Absolute Neutrophil Count 6.1 X10^3/uL (2.0-7.7); Basophil# 0.05 X10^3/uL; Basophil% 0.5 % (0-1); Eosinophil# 0.13 X10^3/uL; Eosinophils% 1.4 % (0-5); Hematocrit 43.1 % (37-47); Hemoglobin 13.9 g/dL (12.0-15.0); Lymphocyte # 2.94 X10^3/ul (0.83-4.51); Lymphocyte % 30.6 % (19-41); Mean Corp Hgb Conc 32.3 g/dL (32-36); Mean Corpuscular Hgb 28.6 pg (27.0-32.0); Mean Corpuscular Volume 88.7 fL (81-99); Mean Platelet Vol. 10.6 fl (6.2-12.0); Monocyte# 0.32 X10^3/uL; Monocyte% 3.3 % (0-10); NRBC Flagged by Analyzer 0 % (0-5); Neutrophil # 6.12 X10^3/uL (2.7-7.7); Neutrophil % 63.7 % (47-70); Platelet Count 310 K/mm3 (150-450); RBC Distribution Width CV 12.5 % (11.6-14.6); RBC Distribution Width SD 40.6 fl (35.1-43.9); Red Blood Count 4.86 M/mm3 (4.2-5.4); White Blood Count 9.6 K/mm3 (4.4-11.0)
[2020-10-19 11:59] LABS: Bacteria 0 SEEN /hpf (None Seen); Mucous, Urine 0 SEEN /hpf (<or=2+); Red Blood Cells-Urine 0 SEEN /hpf (0-5)
[2020-10-19 12:08] LABS: ALB/GLOB Ratio 0.9 RATIO (0.9-2.4); AST(SGOT) 14 U/L (15-37); Alanine Aminotransfer ALT/SGPT 20 U/L (13-56); Albumin, Serum 3.4 g/dL (3.2-5.0); Alkaline Phosphatase 127 U/L (45-117); Anion Gap 3 (5-15); BUN 15 mg/dL (7-18); BUN/Creat Ratio 16.4 RATIO (10-20); Calcium,Total 8.6 mg/dL (8.5-10.1); Chloride 107 mmol/L (98-107); Creatinine, Serum 0.92 mg/dL (0.55-1.02); EST Glomerular Filtration Rate 64 mL/min (>60); Est Glom Filt Rate - Afr Amer 77 mL/min (>60); Globulin 3.9 g/dL (2.2-4.2); Glucose 125 mg/dL (74-106); Potassium 3.8 mmol/L (3.5-5.1); Protein, Total 7.3 g/dL (6.4-8.2); Sodium Level 140 mmol/L (136-145)
[2020-10-19 12:09] LABS: Color, Urine Yellow (Yellow); Glucose, Dipstick Normal (Normal); Ketone-Dipstick Negative (Negative); Leukocyte Esterase-Dipstick 500 /ul (Negative); Nitrite-Dipstick Negative (Negative); Occult Blood-Urine 25 /ul (Negative); Protein-Dipstick Negative (Negative); Specific Gravity, Urine 1.015 (1.002-1.030); Urine Bilirubin Dipstick Negative (Negative); Urine Clarity Cloudy (Clear); Urine Urobilinogen Normal (Normal)
[2020-10-19 12:12] VITALS: BP 161/46; PULSE 55; RESP 20; O2SAT 92
--- NOTE | 2020-10-19 12:14 | CT_ITS ---
STUDY: CT BRAIN WITHOUT CONTRAST REASON FOR EXAM: Female, 75 years old. Several day history of headaches and vomiting. RADIATION DOSAGE (If Supplied By Facility): CTDIvol = ( 44.99 ) mGy, DLP = ( 812.98 ) mGycm TECHNIQUE: Transaxial CT imaging of the brain was performed without administration of intravenous contrast material. Individualized dose optimization techniques were used for this CT. COMPARISON: Comparison is made with prior study dated 10/27/2019. FINDINGS: Normal soft tissue structures. Normal calvarium. There is mild cerebral atrophy with widening of the extra-axial spaces and ventricular dilatation. There are areas of decreased attenuation within the white matter tracts of the supratentorial brain, consistent with microvascular disease changes. Old lacunar infarct in the right basal ganglia. Normal brainstem. Normal cerebellum. There is no intracranial hemorrhage. There are no findings of an acute ischemic infarction. Mucosal polyps or retention cysts in the right maxillary sinus. CT/Brain/Head without Contrast IMPRESSION: Chronic involutional changes of the brain. Electronically Signed: Gonzales Dowell MD at 12:27 EDT , Service support ,
[2020-10-19 12:37] LABS: Squamous Epithelial Cells - UA 0-5 SEEN /hpf (5-10); White Blood Cells 5-10 SEEN /hpf (0-5)
[2020-10-19 14:06] VITALS: RESP 15
[2020-10-19 14:28] VITALS: BP 161/46; PULSE 52; RESP 16; O2SAT 94
== END 2020-10-19 14:33 | disposition home or self-care (01) ==
PROVIDERS: Emergency Provider Emergency Medicine; PCP Internal Medicine
DX: R51.9 Headache, unspecified (principal); R11.0 Nausea; F17.210 Nicotine dependence, cigarettes, uncomplicated; I25.119 Atherosclerotic heart disease of native coronary artery with unspecified angina pectoris
CPT/HCPCS: 70450; 80053; 81001; 85025; 96361; 96374; 96375; 96376; 99285; P9612; A4216; J2405

== ENCOUNTER 2020-11-14 18:37 | Observation (INO) | payer MEDICARE, SELFPAY ==
[2017-12-28 13:50] VITALS: BMI 29.2
[2020-11-14 18:38] VITALS: BP 139/66; PULSE 59; RESP 11; TEMP 36.9; O2SAT 97; BMI 29.5
[2020-11-14 18:41] VITALS: BP 139/66; PULSE 60; RESP 18; O2SAT 97
--- NOTE | 2020-11-14 19:12 | CT_ITS ---
STUDY: CT BRAIN WITHOUT CONTRAST REASON FOR EXAM: Female, 75 years old. Altered mental status RADIATION DOSAGE (If Supplied By Facility): CTDIvol = ( 44.99 ) mGy, DLP = ( 779.24 ) mGycm TECHNIQUE: Transaxial CT imaging of the brain was performed without administration of intravenous contrast material. Individualized dose optimization techniques were used for this CT. COMPARISON: No relevant priors. FINDINGS: Normal soft tissue structures. Normal calvarium. Calcification of cavernous carotids. Moderate atrophy and advanced periventricular white matter ischemic changes . Old lacunar infarct in right basal ganglia. Normal brainstem. Normal cerebellum. There is no intracranial hemorrhage. There are no findings of an acute ischemic infarction. Postsurgical changes of the orbits Mucosal thickening of the right maxillary and ethmoid air cells No significant change since prior exam CT/Brain/Head without Contrast IMPRESSION: Atrophy and advanced periventricular white matter ischemic changes with old right lacunar infarct. No acute bleed. If concern for acute infarct MRI recommended Electronically Signed: Hany Desai MD at 20:19 EDT , Service support ,
--- NOTE | 2020-11-14 19:15 | EKG12_ITS ---
Test Reason : CONFUSION Blood Pressure : / mmHG Vent. Rate : 053 BPM Atrial Rate : 053 BPM P-R Int : 188 ms QRS Dur : 088 ms QT Int : 438 ms P-R-T Axes : 033 058 132 degrees QTc Int : 410 ms Sinus bradycardia T wave abnormality, consider lateral ischemia Abnormal ECG Confirmed by MINE GOLD, GOPAL ([id number]), video editor WALLY LOAIZA ([id number]) on 11/19/2020 10:51:03 AM Referred By: DURGA Confirmed By:BRAN BLOUNT MD
--- NOTE | 2020-11-14 19:31 | EX.ED.DYSGE1 ---
HPI History of Present Illness Chief Complaint: Confusion Informant: patient and family Onset/Context/Timing Onset: Today Timing: Continuous Quality: Confusion Location: Generalized Worsened by: Nothing Relieved by: Nothing Narrative Narrative: Patient presents with confusion that began today. Daughter states that she talk to the patient at approximately 12:45 PM today she was talking normally at that time. Daughter states that she got messages from the patient's boyfriend at approximately 5:30 PM today who stated that she was not acting right. Daughter states that the patient was denying the fact that she has a dog. Daughter also states that she was denying the fact that she has 3 grandchildren. Daughter noticed that tonight her face looks similar to the way her face looked when she had TIAs in the past. Patient denies any numbness or weakness in her extremities. [facility] Medical History Anxiety and depression Atherosclerosis of coronary artery of [place] heart with angina pectoris Back pain Benzodiazepine dependence COPD (chronic obstructive pulmonary disease) Essential (primary) hypertension H/O: pneumonia Hyperlipidemia Hypothyroidism Nicotine dependence Non-rheumatic tricuspid valve insufficiency Obstructive sleep apnea Secondary pulmonary arterial hypertension TIA (transient ischemic attack) Home Medications aspirin 81 mg PO DAILY@0800 09/06/17 [History Last Taken 10/03/18 08:00] levothyroxine 75 mcg PO DAILY 09/06/17 [History Last Taken 10/03/18 07:00] citalopram 40 mg tablet 40 mg PO DAILY 12/18/17 [History Last Taken 10/03/18 08:00] clopidogrel 75 mg tablet 75 mg PO QODAY 12/18/17 [History Last Taken 01/16/19] lisinopril 40 mg tablet 40 mg PO DAILY tab 12/18/17 [History Last Taken 10/03/18 08:00] atenolol 25 mg PO DAILY 01/05/18 [History Last Taken 10/03/18 08:00] atorvastatin 40 mg PO DAILY 01/05/18 [History Last Taken 10/02/18 22:00] citalopram 20 mg PO LUNCH 06/27/18 [History Last Taken 10/03/18 12:00] lorazepam 1 mg PO 4X/DAY 06/28/18 [History Last Taken 10/03/18 12:00] albuterol sulfate 0.63 mg/3 mL solution for nebulization 0.63 mg INHALATION Q4H PRN 07/14/18 [History Last Taken Unknown] bupropion HCl 100 mg PO DAILY 01/16/19 [History Last Taken Unknown] ondansetron 4 mg PO Q8H PRN PRN #10 tab 01/16/19 [Rx Last Taken Unknown] pantoprazole 40 mg PO DAILY 01/16/19 [History Last Taken Unknown] donepezil 5 mg PO QHS 10/10/19 [History Last Taken Unknown] fexofenadine 60 mg PO DAILY 10/10/19 [History Last Taken Unknown] meloxicam 15 mg PO DAILY 10/10/19 [History Last Taken Unknown] ketorolac 10 mg PO TID PRN #10 tab 10/19/20 [Rx Last Taken Unknown] Allergy/AdvReac Type Severity Reaction Status Date / Time morphine Allergy PT UNSURE Verified 11/14/20 18:38 Penicillins Allergy Hives Verified 11/14/20 18:38 tramadol HCl [From Ultram] Allergy PT UNSURE Verified 11/14/20 18:38 bupropion [From Wellbutrin] AdvReac hallucinati Verified 11/14/20 18:38 ons Surgical History History of appendectomy History of coronary artery bypass graft x 3 History of coronary artery stent placement (12/28/17) History of left heart catheterization (12/28/17) Hx of cholecystectomy Social History household members: other Smoking Status: Current every day smoker tobacco type: cigarettes details: Patient denies alcohol use substance use type: does not use ROS ROS ED Constitutional Constitutional ED: Denies chills or fever(s) ENT ENT ED: Denies rhinorrhea Cardiovascular Cardiovascular: Denies chest pain Respiratory/Chest Respiratory/Chest: Denies cough or dyspnea Gastrointestinal Gastrointestinal: Denies nausea or vomiting Genitourinary Genitourinary ED: Denies dysuria or hematuria Musculoskeletal Musculoskeletal: Denies back pain or neck pain Integumentary Denies abscess or rash Neurologic Neurologic: Reports weakness; Denies paresthesias Allergic/Immunologic Allergic/Immunologic ED: Denies mouth swelling or urticaria EXAM Physical Exam Const Vital Signs: 11/14/20 18:38 11/14/20 18:41 11/14/20 20:40 Temperature 98.4 F Temperature Source Temporal Pulse Rate 59 L 60 58 L Respiratory Rate 11 L 18 16 Blood Pressure 139/66 H 139/66 H 153/59 H Blood Pressure Mean 90 90 90 Pulse Ox 97 97 96 Oxygen Delivery Method Room Air Room Air Room Air 11/15/20 00:11 11/15/20 00:15 Temperature 98.4 F Temperature Source Temporal Pulse Rate 72 72 Respiratory Rate 16 16 Blood Pressure 189/78 H 189/78 H Blood Pressure Mean 115 115 Pulse Ox 99 99 Oxygen Delivery Method Room Air Room Air Positive well nourished and well developed General Appearance ED: well developed HEENT Reports dry mucous membranes Mouth ED: Yes dry mucous membranes Mouth: dry mucous membranes Neck supple and no JVD Resp normal respiratory effort and clear to auscultation bilaterally Cardio regular rate and regular rhythm GI non-tender Palpation: soft Extremity normal to inspection General Extremety ED: Negative for edema or tenderness General Extremity: Negative for edema Neuro CN's II-XII intact bilaterally and no sensory deficits noted Sensorium / Orientation: alert and orientation impaired Motor Exam: strength 5/5 throughout Skin no rashes or lesions noted MDM MDM MDM Narrative Medical decision making narrative: EKG was obtained. On my interpretation, it showed a sinus bradycardia with a rate of 53. [place] interval, QRS interval, and QTc intervals were all normal. [place] was normal. There are nonspecific ST-T wave changes which are unchanged compared to previous EKG. CT scan of the brain was obtained. There is no acute intracranial abnormality. This was interpreted by the radiologist and reviewed by myself. CBC was within normal limits. PT with INR and PTT were normal. Comprehensive metabolic profile was within normal limits. High-sensitivity troponin was normal. Lactate was normal. CT scan of the abdomen and pelvis with oral and IV contrast was obtained. There is diverticulosis but no evidence of diverticulitis. There is nonspecific fatty infiltration of the liver. This was interpreted by the radiologist and reviewed by myself. Portable 1 view chest x-ray was obtained. On my interpretation, lung cortes are clear. There is normal cardiac silhouette. Bony thorax is normal. There is no acute process noted. Radiologist also interpreted the x-ray and agrees. Urinalysis was obtained. There is no evidence of urinary tract infection. On reevaluation, patient states she wants to go home. Patient knows it is Thursday. Patient knows the month. Patient knows the year. Patient now remembers having her dog. I recommended admission to the hospital because of the confusion and history of TIAs. Case was discussed with the hospitalist. She will admit the patient for observation. Patient is agreeable with the plan. All questions were answered. Lab Data Attestation: I reviewed the patient's lab results. Labs: Laboratory Results - last 24 hr 11/14/20 11/14/20 11/14/20 18:49 18:49 18:49 WBC 9.0 RBC 4.52 Hgb 12.9 Hct 40.3 MCV 89.2 MCH 28.5 MCHC 32.0 RDW Std Deviation 44.2 H RDW Coeff of John 13.7 Plt Count 253 MPV 11.8 Immature Gran % (Auto) 0.200 Neut % (Auto) 48.9 Lymph % (Auto) 41.3 H [place] % (Auto) 6.8 Eos % (Auto) 2.4 Baso % (Auto) 0.4 Absolute Neuts (auto) 4.4 Absolute Lymphs (auto) 3.72 Nucleated RBC % 0 PT 12.7 INR 1.0 APTT 28.1 Sodium 140 Potassium 4.2 Chloride 107 Carbon Dioxide 28.0 Anion Gap 5 BUN 13 Creatinine 0.97 Estim Creat Clear Calc 40.85 Est GFR (MDRD) Af Amer 72 Est GFR (MDRD) Non-Af 60 BUN/Creatinine Ratio 13.4 Glucose 124 H Lactic Acid Calcium 8.2 L Total Bilirubin 0.30 AST 20 ALT 18 Alkaline Phosphatase 115 Troponin I High Sens 12 Total Protein 6.7 Albumin 3.1 L Globulin 3.6 Albumin/Globulin Ratio 0.9 Urine Color Urine Clarity Urine pH Ur Specific [place] Urine Protein Urine Glucose (UA) Urine Ketones Urine Occult Blood Urine Nitrite Urine Bilirubin Urine Urobilinogen Ur Leukocyte Esterase Urine RBC Urine WBC Ur Squamous Epith Cells Urine Bacteria Urine Mucus 11/14/20 11/14/20 11/14/20 19:25 19:30 22:19 WBC RBC Hgb Hct MCV MCH MCHC RDW Std Deviation RDW Coeff of John Plt Count MPV Immature Gran % (Auto) Neut % (Auto) Lymph % (Auto) [place] % (Auto) Eos % (Auto) Baso % (Auto) Absolute Neuts (auto) Absolute Lymphs (auto) Nucleated RBC % PT INR APTT Sodium Potassium Chloride Carbon Dioxide Anion Gap BUN Creatinine Estim Creat Clear Calc Est GFR (MDRD) Af Amer Est GFR (MDRD) Non-Af BUN/Creatinine Ratio Glucose Lactic Acid 1.0 Calcium Total Bilirubin AST ALT Alkaline Phosphatase Troponin I High Sens 13 Total Protein Albumin Globulin Albumin/Globulin Ratio Urine Color Yellow Urine Clarity Clear Urine pH 6.0 Ur Specific [place] 1.015 Urine Protein Negative Urine Glucose (UA) Normal Urine Ketones Negative Urine Occult Blood Negative Urine Nitrite Negative Urine Bilirubin Negative Urine Urobilinogen Normal Ur Leukocyte Esterase 25 H Urine RBC 0 SEEN Urine WBC 0-5 SEEN Ur Squamous Epith Cells 0-5 SEEN Urine Bacteria 0 SEEN Urine Mucus 0 SEEN Radiography Chest X-Ray - ED: 1 View, Read by ED Physician, Read by Radiologist and Normal Diagnostic Testing: Clinical Impression(s) from Imaging Studies Brain CT 11/14/20 19:12 IMPRESSION: Atrophy and advanced periventricular white matter ischemic changes with old right lacunar infarct. No acute bleed. If concern for acute infarct MRI recommended Electronically Signed: Hany Desai MD at 20:19 EDT , Service support , Abdomen/Pelvis CT 11/14/20 19:44 IMPRESSION: Diverticular disease of the sigmoid colon without definitive evidence for acute diverticulitis. Nonspecific fatty infiltrated liver status post cholecystectomy Electronically Signed: Hany Desai MD at 22:41 EDT , Service support , Chest X-Ray 11/14/20 19:45 IMPRESSION: No acute radiographic abnormalities. Electronically Signed: Jv Vazquez MD at 20:30 EDT Tel , Service support , EKG Initial EKG: Attestation: I personally reviewed and interpreted this EKG as follows: Interpretation: Sinus Bradycardia (53) and Non-Specific ST Changes Prior EKG tracings: available for review Prior: Unchanged (09/17/2020) Treatment and Re-Evaluation Vital Sign Attestation:: Vital signs reviewed prior to admission. Patient's blood pressure is somewhat elevated at 189/78. Remaining vital signs are normal. Discharge Plan Triage Chief Complaint: Confusion ED Provider: Fernando Chase Dx/Rx/DC Orders Clinical Impression: Acute confusion, TIA (transient ischemic attack) Prescriptions: No Action clopidogrel 75 mg tablet 75 mg PO QODAY RF: 0 albuterol sulfate 0.63 mg/3 mL solution for nebulization 0.63 mg INHALATION Q4H PRN (Reason: Congestion) RF: 0 aspirin 81 MG tablet 81 mg PO DAILY@0800 RF: 0 levothyroxine 75 MCG tablet 75 mcg PO DAILY RF: 0 citalopram 40 mg tablet 40 mg PO DAILY RF: 0 lisinopril 40 mg tablet 40 mg PO DAILY RF: 0 atenolol 50 MG tablet 25 mg PO DAILY RF: 0 atorvastatin 40 MG tablet 40 mg PO DAILY RF: 0 citalopram 20 MG tablet 20 mg PO LUNCH RF: 0 lorazepam 1 MG tablet 1 mg PO 4X/DAY RF: 0 bupropion HCl 100 MG tablet 100 mg PO DAILY RF: 0 pantoprazole 40 MG tablet 40 mg PO DAILY RF: 0 ondansetron 4 MG tablet 4 mg PO Q8H PRN PRN (Reason: Nausea) Qty: 10 RF: 0 donepezil 5 MG tablet 5 mg PO QHS RF: 0 fexofenadine 60 MG tablet 60 mg PO DAILY RF: 0 meloxicam 15 MG tablet 15 mg PO DAILY RF: 0 ketorolac 10 mg tablet 10 mg PO TID PRN (Reason: pain) Qty: 10 RF: 0 Primary Care Provider: Zully Rojas Referrals: Zully Rojas MD [Primary Care Provider] - Disposition Disposition: Acute Care Hospital [facility]
--- NOTE | 2020-11-14 19:44 | CT_ITS ---
STUDY: CT ABDOMEN AND PELVIS WITH CONTRAST REASON FOR EXAM: Female, 75 years old. Abdominal pain -- IV PO Contrast RADIATION DOSAGE (If Supplied By Facility): CTDIvol = ( 14.67 ) mGy, DLP = ( 773.73 ) mGycm TECHNIQUE: Transaxial images were obtained from the dome of the diaphragm to the symphysis pubis without oral contrast. Oral and amp; IV Gastrografin and amp; 100mL Isovue-370 was administered. Sagittal and coronal images were reconstructed. Individualized dose optimization techniques were used for this CT. COMPARISON: 10/27/2019 FINDINGS: The visualized lung bases are unremarkable. The visualized portions of the heart are within normal limits. Small hiatal hernia is noted. Mild nonspecific fatty infiltrated liver without mass or bile duct dilatation. Gallbladder has been removed surgically.. Normal spleen. Normal pancreas. Normal bilateral adrenal glands. Normal right kidney. Normal left kidney. Normal visualized stomach. Nonspecific ileus with diffuse fecal retention in the colon. Diverticular disease of sigmoid colon without evidence for acute diverticulitis. The appendix is not visualized. There are no secondary signs for acute appendicitis Atherosclerotic changes of the aorta without evidence for aneurysm. Normal inferior vena cava. Normal retroperitoneum. Incompletely distended thick-walled bladder likely of no significance Normal abdominal wall. Lumbar spine demonstrates mild degenerative change CT/Abdomen/Pelvis WITH Contrast IMPRESSION: Diverticular disease of the sigmoid colon without definitive evidence for acute diverticulitis. Nonspecific fatty infiltrated liver status post cholecystectomy Electronically Signed: Hany Desai MD at 22:41 EDT , Service support ,
--- NOTE | 2020-11-14 19:45 | RAD_ITS ---
INDICATION: Cough EXAMINATION/TECHNIQUE: X-RAY - XR Chest 1 View COMPARISON: 09/17/2020. FINDINGS: The lungs are clear. Sternal cerclage wires and vascular clips are present from a prior sternotomy and coronary artery bypass graft procedure (CABG). No pleural effusion or pneumothorax. No acute osseous abnormalities. RAD/Chest 1 View (Portable) IMPRESSION: No acute radiographic abnormalities. Electronically Signed: Jv Vazquez MD at 20:30 EDT Tel , Service support ,
[2020-11-14 19:57] LABS: Absolute Lymphocyte Count 3.72 X10^3/uL (0.83-4.51); Absolute Neutrophil Count 4.4 X10^3/uL (2.0-7.7); Basophil# 0.04 X10^3/uL; Basophil% 0.4 % (0-1); Eosinophil# 0.22 X10^3/uL; Eosinophils% 2.4 % (0-5); Hematocrit 40.3 % (37-47); Hemoglobin 12.9 g/dL (12.0-15.0); Lymphocyte # 3.72 X10^3/ul (0.83-4.51); Lymphocyte % 41.3 % (19-41); Mean Corpuscular Hgb 28.5 pg (27.0-32.0); Mean Corpuscular Volume 89.2 fL (81-99); Mean Platelet Vol. 11.8 fl (6.2-12.0); Monocyte# 0.61 X10^3/uL; Monocyte% 6.8 % (0-10); NRBC Flagged by Analyzer 0 % (0-5); Neutrophil % 48.9 % (47-70); Platelet Count 253 K/mm3 (150-450); RBC Distribution Width CV 13.7 % (11.6-14.6); RBC Distribution Width SD 44.2 fl (35.1-43.9); Red Blood Count 4.52 M/mm3 (4.2-5.4)
[2020-11-14 19:58] LABS: Bacteria 0 SEEN /hpf (None Seen); Mucous, Urine 0 SEEN /hpf (<or=2+); Red Blood Cells-Urine 0 SEEN /hpf (0-5)
[2020-11-14 20:01] LABS: Color, Urine Yellow (Yellow); Glucose, Dipstick Normal (Normal); Ketone-Dipstick Negative (Negative); Leukocyte Esterase-Dipstick 25 /ul (Negative); Nitrite-Dipstick Negative (Negative); Occult Blood-Urine Negative /ul (Negative); Protein-Dipstick Negative (Negative); Specific Gravity, Urine 1.015 (1.002-1.030); Urine Bilirubin Dipstick Negative (Negative); Urine Clarity Clear (Clear); Urine Urobilinogen Normal (Normal)
[2020-11-14 20:07] LABS: Squamous Epithelial Cells - UA 0-5 SEEN /hpf (5-10); White Blood Cells 0-5 SEEN /hpf (0-5)
[2020-11-14 20:07] LABS: ALB/GLOB Ratio 0.9 RATIO (0.9-2.4); AST(SGOT) 20 U/L (15-37); Alanine Aminotransfer ALT/SGPT 18 U/L (13-56); Albumin, Serum 3.1 g/dL (3.2-5.0); Alkaline Phosphatase 115 U/L (45-117); Anion Gap 5 (5-15); BUN 13 mg/dL (7-18); BUN/Creat Ratio 13.4 RATIO (10-20); Calcium,Total 8.2 mg/dL (8.5-10.1); Chloride 107 mmol/L (98-107); Creatinine, Serum 0.97 mg/dL (0.55-1.02); EST Glomerular Filtration Rate 60 mL/min (>60); Est Glom Filt Rate - Afr Amer 72 mL/min (>60); Estimated Creatinine Clearance 40.85 ml/min; Globulin 3.6 g/dL (2.2-4.2); Glucose 124 mg/dL (74-106); Potassium 4.2 mmol/L (3.5-5.1); Protein, Total 6.7 g/dL (6.4-8.2); Sodium Level 140 mmol/L (136-145); Troponin-I HS 12 pg/mL (3.0-54.0)
[2020-11-14 20:09] LABS: Prothrombin Time (Protime)PT. 12.7 SECONDS (11.7-14.9)
[2020-11-14 20:10] LABS: Partial Thromboplast Time 28.1 Seconds (24.1-36.2)
[2020-11-14] MEDS: 0.9% Normal Saline 1,000 ML 1000 ML IV (20:39)
[2020-11-14] MEDS: LORazepam 1 MG Tablet PO (20:39)
[2020-11-14 20:40] VITALS: BP 153/59; PULSE 58; RESP 16; O2SAT 96
[2020-11-14 22:44] LABS: Troponin-I HS 13 pg/mL (3.0-54.0)
[2020-11-15] VITALS (10 sets, daily range): BP systolic 147–189; BP diastolic 52–78; PULSE 57–109; RESP 14–16; TEMP 36.6–36.9; O2SAT 95–99; BMI 29.8
--- NOTE | 2020-11-15 00:11 | ED.RN ---
PT doesn't want to keep telemonitor on. Will only stay for admission if she gets coffee. Daughter at bedside encouraging PT to stay. Coffee, sandwhich and cookies given.
--- NOTE | 2020-11-15 00:19 | ECHOD_ITS ---
Reason For Study: TIA/STROKE Procedure This was a 2D Doppler, Color Flow transthoracic echocardiogram. Exam performed portable in patient room. Left Ventricle Normal LV size. The estimated ejection fraction is 65 %. Stage 2 diastolic dysfunction. No regional wall motion abnormalities noted. Right Ventricle Normal RV size. Normal systolic function. Atria The left atrium is mildly enlarged. Normal right atrium. No doppler evidence for ASD. Mitral Valve There is no mitral valve stenosis. Trivial mitral valve insufficiency. Tricuspid Valve There is no tricuspid stenosis. Mild tricuspid valve insufficiency. Unable to estimate RV systolic pressure due to insufficient tricuspid regurgitant envelope. Aortic Valve Possible bicuspid aortic valve. There is no aortic stenosis. No aortic valve insufficiency. Pulmonic Valve There is no pulmonic valvular stenosis. Trivial pulmonic valve insufficiency. Great Vessels Normal aortic root. Pericardium/Pleural No pericardial effusion. MMode/2D Measurements & Calculations LVIDd: 4.6 cm IVSd: 1.1 cm Ao root diam: 3.1 cm LVIDs: 3.0 cm LVPWd: 1.1 cm RVDd: 3.1 cm FS: 34.7 % LAV(MOD-bp): 61.3 ml LVAd ap4: 26.7 cm2 SV(MOD-sp4): 52.9 ml LAV(MOD-bp) Indexed: 35.5 ml/m2 LVLd ap4: 7.4 cm LAV(MOD-sp2): 61.0 ml EDV(MOD-sp4): 79.7 ml LAV(MOD-sp4): 59.9 ml EDV(sp4-el): 82.2 ml LVAs ap4: 14.4 cm2 LVLs ap4: 6.5 cm ESV(MOD-sp4): 26.8 ml ESV(sp4-el): 27.1 ml EF(MOD-sp4): 66.3 % EF(sp4-el): 67.0 % SV(sp4-el): 55.1 ml LA A4 area: 20.8 cm2 LA dimension(2D): 4.3 cm RA A4 area: 14.0 cm2 Time Measurements MV dec time: 0.27 sec Doppler Measurements & Calculations MV E max nabil: 85.3 cm/sec Lat Peak E' Nabil: 6.2 cm/sec Med Peak E' Nabil: 5.4 cm/sec MV A max nabil: 41.6 cm/sec E/E' lat: 13.6 E/E' med: 15.8 MV E/A: 2.0 Ao V2 max: 119.6 cm/sec LV V1 max: 85.4 cm/sec PA V2 max: 92.6 cm/sec Ao max P.7 mmHg LV V1 max P.9 mmHg TR max nabil: 305.3 cm/sec TR max P.3 mmHg ECHO/Echo Complete Interpretation Summary The estimated ejection fraction is 65 %. Stage 2 diastolic dysfunction. The left atrium is mildly enlarged. Trivial mitral valve insufficiency. Possible bicuspid aortic valve Ordering Physician: Natasha Purdy Referring Physician: ASHLEY PARIKH Performed By: Vera Gómez RDCS
--- NOTE | 2020-11-15 00:19 | MRI_ITS ---
STUDY: MRI BRAIN WITHOUT CONTRAST REASON FOR EXAM: Female, 75 years old. TIA TECHNIQUE: Standardized multiplanar fat and water weighted pulse sequences were obtained. COMPARISON: CT 11/14/2020, MRI 10/04/2018 FINDINGS: There is moderate cerebral atrophy with widening of the extra-axial spaces and ventricular dilatation. There are multiple confluent white matter hyperintensities, distributed throughout the deep white matter tracts of the cerebral hemispheres, consistent with severe chronic white matter ischemic changes. There is no evidence for recent intracranial ischemia or other cause of cytotoxic edema on diffusion weighted imaging (DWI). Normal T2* images of the brain without demonstrated susceptibility artifact. There is no demonstrated hemosiderin stain. Normal bilateral basal ganglia. Normal thalami. There is no extra-axial fluid accumulation. Normal flow voids within the major intracranial circulation suggesting patency by spin echo criteria. Normal sella turcica, pituitary gland, infundibular stalk, optic chiasm and hypothalamus. Normal tectal plate and pineal gland. There are chronic white matter ischemic changes of the jlu[place]. The midbrain and medulla are otherwise normal. Normal cerebellum. Normal basal cisterns. Normal bilateral temporal bones. Normal bilateral internal auditory canals. There are bilateral ocular lens implants with otherwise normal intraorbital contents. Mucosal thickening and mucous retention cyst in the right maxilla sinus consistent with chronic sinusitis. Normal calvarium and skull base. Normal visualized soft tissue structures. Normal visualized upper cervical spine. MRI/Brain without Contrast IMPRESSION: Involutional changes of the brain, as described above. No acute infarct. Electronically Signed: Murtaza Donald MD at 10:44 EDT Tel , Service support ,
--- NOTE | 2020-11-15 01:24 | MRI_ITS ---
STUDY: MRA NECK WITHOUT CONTRAST REASON FOR EXAM: Female, 75 years old. STROKE TECHNIQUE: Source images were obtained, MIPs were performed. The study was performed unenhanced. COMPARISON: CTA 01/02/2020 FINDINGS: RIGHT CAROTID ARTERIES: Normal right common carotid artery (CCA). Normal right common carotid bulb. Normal origin of the right internal carotid (ICA) artery without a hemodynamically significant stenosis. Normal visualized cervical portion of the right internal carotid artery. Normal origin of the right external carotid artery (ECA). LEFT CAROTID ARTERIES: Normal left common carotid artery (CCA). Normal left common carotid bulb. Normal origin of the left internal carotid (ICA) artery without a hemodynamically significant stenosis. Normal visualized cervical portion of the left internal carotid artery. Normal origin of the left external carotid artery (ECA). VERTEBRAL ARTERIES: Normal antegrade flow within the bilateral vertebral artery without a hemodynamically significant stenosis. MRI/MRA Neck without Contrast IMPRESSION: Normal bilateral cervical carotid and vertebral arteries. Electronically Signed: Murtaza Donald MD at 10:59 EDT Tel , Service support ,
--- NOTE | 2020-11-15 01:24 | MRI_ITS ---
STUDY: MRA OF THE HEAD WITHOUT CONTRAST REASON FOR EXAM: Female, 75 years old. STROKE TECHNIQUE: 3-D [id number] (TOF) imaging was performed with MIPs. The study was performed unenhanced. COMPARISON: None. FINDINGS: Normal bilateral petrous carotid arteries. Normal right cavernous carotid artery with a normal supraclinoid bifurcation. Normal left cavernous carotid artery with a normal supraclinoid bifurcation. Normal right A1 segments of the anterior cerebral artery. Normal left A1 segments of the anterior cerebral artery. Normal intact anterior communicating artery (ACOM). Normal bilateral A2 segments of the anterior cerebral arteries. Normal right M1 and M2 segments of the middle cerebral arteries, with a normal M1 bifurcation. Normal left M1 and M2 segments of the middle cerebral arteries, with a normal M1 bifurcation. Normal right posterior communicating artery (PCOM). Normal left posterior communicating artery (PCOM). Normal bilateral vertebral arteries. Normal basilar artery with a normal basilar bifurcation. The visualized bilateral superior cerebellar (SCA) arteries are normal. Normal bilateral P1, P2 and visualized P3 segments of the posterior cerebral arteries. There is no demonstrated aneurysm of the [place]. There is no major vessel occlusion or hemodynamically significant stenosis. There is no demonstrated abnormality of the visualized brain. MRI/MRA Head ONLY without Contrast IMPRESSION: Normal MRA of the head Electronically Signed: Murtaza Donald MD at 11:08 EDT Tel , Service support ,
--- NOTE | 2020-11-15 02:08 | PCS.PANDOC ---
PANDEMIC DOCUMENTATION INITIATED: Date: 09/24/2020 Time: 190
--- NOTE | 2020-11-15 02:27 | PCM.HP.STD ---
HPI - General General Date of Admission: 11/15/20 Date of Service: 11/15/20 Chief Complaint: Acute confusion HPI Narrative MAURICE WALLACE, is a 75 F who presented to the emergency department [facility] on November 14, 2020 with a chief complaint of acute mental status change. Her daughter gives most of her history to the emergency department physician however she was gone when I evaluated the patient. Upon presentation the daughter reported that she talk to her mother at approximately 1245 today and she was talking normally at that time but she got a message from the patient's boyfriend at approximately 5:30 PM who reported to the daughter that she was not acting right. The daughter stated that her mother was denying the fact that she has a dog and reported that the dog is very much an important part of her life and she was denying the fact that she had 3 grandchildren. The daughter indicated that her face looked similar to what it had look like in the past when she had TIAs. The patient denied any tingling numbness or weakness but did report left leg pain that has been problematic for an extensive period of time. Upon my evaluation she was mentating normally and reported that she knows she has some confusion intermittently but denies having Alzheimer's disease. She states that sometimes she will go into her room and not remember why she is there, sometimes she has issues remembering what happened the day previously or remembering conversations she has had with friends the next day but states she will remember it a few days later. Per discussion with the ER physician the daughter was reporting the patient was back to baseline prior to her leaving. In the emergency department she was afebrile and hemodynamically stable with mildly elevated blood pressures at times. She was satting 99% on room air. Her CBC was unremarkable. Her coags were normal. Her CMP was overall unremarkable as well. A troponin was obtained and was 12 with a repeat troponin of 13. Her UA was unremarkable. CT of her head showed atrophy with advanced periventricular white matter ischemic changes and an old right lacunar infarct but no acute bleed. She evidently complained of some abdominal pain during the course of her ER visit and a CT with p.o. and IV contrast was performed and showed diverticular disease in the sigmoid colon without diverticulitis and nonspecific fatty infiltration of the liver. Upon my evaluation she had no subjective complaints of abdominal pain. Chest x-ray was performed and showed no acute radiographic findings but evidence of previous CABG. She is currently on aspirin and Plavix and states she takes them religiously. [facility] Medical History Anxiety and depression Atherosclerosis of coronary artery of [place] heart with angina pectoris Back pain Benzodiazepine dependence COPD (chronic obstructive pulmonary disease) Essential (primary) hypertension H/O: pneumonia Hyperlipidemia Hypothyroidism Nicotine dependence Non-rheumatic tricuspid valve insufficiency Obstructive sleep apnea Secondary pulmonary arterial hypertension TIA (transient ischemic attack) Home Medications aspirin 81 mg PO DAILY@0800 09/06/17 [History Last Taken 10/03/18 08:00] levothyroxine 75 mcg PO DAILY 09/06/17 [History Last Taken 10/03/18 07:00] citalopram 40 mg tablet 40 mg PO DAILY 12/18/17 [History Last Taken 10/03/18 08:00] clopidogrel 75 mg tablet 75 mg PO QODAY 12/18/17 [History Last Taken 01/16/19] lisinopril 40 mg tablet 40 mg PO DAILY tab 12/18/17 [History Last Taken 10/03/18 08:00] atenolol 25 mg PO DAILY 01/05/18 [History Last Taken 10/03/18 08:00] atorvastatin 40 mg PO DAILY 01/05/18 [History Last Taken 10/02/18 22:00] citalopram 20 mg PO LUNCH 06/27/18 [History Last Taken 10/03/18 12:00] lorazepam 1 mg PO 4X/DAY 06/28/18 [History Last Taken 10/03/18 12:00] albuterol sulfate 0.63 mg/3 mL solution for nebulization 0.63 mg INHALATION Q4H PRN 07/14/18 [History Last Taken Unknown] bupropion HCl 100 mg PO DAILY 01/16/19 [History Last Taken Unknown] ondansetron 4 mg PO Q8H PRN PRN #10 tab 01/16/19 [Rx Last Taken Unknown] pantoprazole 40 mg PO DAILY 01/16/19 [History Last Taken Unknown] donepezil 5 mg PO QHS 10/10/19 [History Last Taken Unknown] fexofenadine 60 mg PO DAILY 10/10/19 [History Last Taken Unknown] meloxicam 15 mg PO DAILY 10/10/19 [History Last Taken Unknown] ketorolac 10 mg PO TID PRN #10 tab 10/19/20 [Rx Last Taken Unknown] Allergy/AdvReac Type Severity Reaction Status Date / Time morphine Allergy PT UNSURE Verified 11/14/20 18:38 Penicillins Allergy Hives Verified 11/14/20 18:38 tramadol HCl [From Ultram] Allergy PT UNSURE Verified 11/14/20 18:38 bupropion [From Wellbutrin] AdvReac hallucinati Verified 11/14/20 18:38 ons Surgical History History of appendectomy History of coronary artery bypass graft x 3 History of coronary artery stent placement (12/28/17) History of left heart catheterization (12/28/17) Hx of cholecystectomy Social History household members: other Smoking Status: Current every day smoker tobacco type: cigarettes details: Patient denies alcohol use substance use type: does not use ROS Constitutional Constitutional: Denies anorexia, change in weight, chills, fatigue, fever(s), malaise, night sweats, weakness or other Eyes Eyes: Denies blurry vision, change in eye color, change in vision, discharge from eye(s), double vision, erythema, eye pain, loss of vision or other ENT HEENT: Denies abnormal hearing, dysphagia, ear pain, epistaxis, headache(s), hearing loss, nasal congestion, nasal discharge, post nasal drip, sinus pressure, sore throat or other Cardiovascular Cardiovascular: Denies chest pain, claudication, dyspnea on exertion, edema, lightheadedness, orthopnea, palpitations, paroxysmal nocturnal dyspnea, rapid heart rate, syncope or other Respiratory/Chest Respiratory/Chest: Denies cough, dyspnea, excessive phlegm production, hemoptysis, productive cough, shortness of breath at rest, shortness of breath with exertion, wheezing or other Gastrointestinal Gastrointestinal: Denies abdominal pain, coffee ground emesis, constipation, diarrhea, dyspepsia, hematemesis, hematochezia, loose stools, melena, nausea, vomiting or other Genitourinary Genitourinary: Denies burning urination, difficulty urinating, dysuria, hematuria, nocturia, urinary frequency, urinary hesitancy, urinary incontinence, urinary urgency or other Musculoskeletal Musculoskeletal: Reports joint pain and joint stiffness; Denies arthralgias, back pain, joint swelling, myalgias, neck pain or other Neurologic Neurologic: Denies abnormal gait, abnormal speech, confusion, disequilibrium, dizziness, focal weakness, headache(s), numbness, paresthesias, seizure-like activity, seizures, syncope, tingling, tremor(s) or other Psychiatric Psychiatric: Denies anxiety, depression, homicidal ideation, suicidal ideation or other Endocrine Endocrinology: Denies change in body appearance, cold intolerance, excessive sweating, heat intolerance, polydipsia, polyuria or other Hematologic/Lymphatic Hematologic/Lymphatic: Denies anemia, easy bleeding, easy bruising, lymphadenopathy or other Allergic/Immunologic Allergic/Immunologic: Denies rhinitis, hives, eczemia, asthma or other Vital Signs Vital Signs Vital Signs: 11/14/20 18:38 11/14/20 18:41 11/14/20 20:40 Temperature 98.4 F Temperature Source Temporal Pulse Rate 59 L 60 58 L Respiratory Rate 11 L 18 16 Respiratory Effort Respiratory Depth Respiratory Pattern Blood Pressure 139/66 H 139/66 H 153/59 H Blood Pressure Mean 90 90 90 Blood Pressure Source Blood Pressure Position Blood Pressure Location Pulse Ox 97 97 96 Oxygen Delivery Method Room Air Room Air Room Air 11/15/20 00:11 11/15/20 00:15 11/15/20 01:16 Temperature 98.4 F 98.4 F Temperature Source Temporal Temporal Pulse Rate 72 72 72 Respiratory Rate 16 16 16 Respiratory Effort Respiratory Depth Respiratory Pattern Blood Pressure 189/78 H 189/78 H 189/78 H Blood Pressure Mean 115 115 115 Blood Pressure Source Blood Pressure Position Blood Pressure Location Pulse Ox 99 99 99 Oxygen Delivery Method Room Air Room Air Room Air 11/15/20 01:38 11/15/20 01:47 11/15/20 02:20 Temperature 98.1 F Temperature Source Oral Pulse Rate 57 L 109 H Respiratory Rate 14 Respiratory Effort Normal Non-Labored Respiratory Depth Normal Respiratory Pattern Normal Blood Pressure 147/52 H Blood Pressure Mean 83 Blood Pressure Source Monitor Blood Pressure Position Semi-Fowlers Blood Pressure Location Right Arm Pulse Ox 99 Oxygen Delivery Method Room Air Room Air Weight Weight: 71.6 kg Body Mass Index (BMI) 29.8 Physical Exam Const alert, oriented x3 and no apparent distress Constitutional Narrative: Overweight older white female who was sitting up in bed, appears comfortable, nontoxic, very pleasant General Appearance: cooperative HEENT normocephalic, head/scalp atraumatic, hearing grossly normal bilaterally and moist oral mucous membranes HEENT Narrative: Dentures in place, Mallampati two, no thrush Eyes PERRL, EOMs intact bilaterally and conjunctivae normal Eyes Narrative: No icterus Neck no lymphadenopathy, supple and no JVD Neck Narrative: Trachea midline, no thyroid enlargement Resp normal respiratory effort, no retractions, no use of accessory muscles and clear to auscultation bilaterally Resp Narrative: Diffusely diminished but clear Auscultation: Negative for crackles, rales, rhonchi or wheezes Cardio regular rate, regular rhythm, S1 normal heart sound, S2 normal heart sound, no murmurs, no rub, no gallops, no clicks and no JVD GI normal to inspection, nondistended, normoactive bowel sounds, soft to palpation, non-tender and non-distended Extremity no clubbing, cyanosis or edema Peripheral Pulses: Yes pulses 2+ throughout Skin no rashes or lesions noted, no wounds, skin turgor normal, no jaundice, no petechiae and no mottling Neuro oriented x3, CN's II-XII intact bilaterally and moves all extremities Neuro Narrative: Mild generalized weakness proximal greater than distal but no focal deficits Sensorium / Orientation: awake and alert Speech: speech normal Psych Mood & Affect: anxious Results Lab / Micro Data Attestation: I reviewed the patient's lab results. Result Diagrams: 11/14/20 18:49 11/14/20 18:49 Labs: Laboratory Results - last 24 hr 11/14/20 18:49: WBC 9.0, RBC 4.52, Hgb 12.9, Hct 40.3, MCV 89.2, MCH 28.5, MCHC 32.0, RDW Std Deviation 44.2 H, RDW Coeff of John 13.7, Plt Count 253, MPV 11.8, Immature Gran % (Auto) 0.200, Neut % (Auto) 48.9, Lymph % (Auto) 41.3 H, [place] % (Auto) 6.8, Eos % (Auto) 2.4, Baso % (Auto) 0.4, Absolute Neuts (auto) 4.4, Absolute Lymphs (auto) 3.72, Nucleated RBC % 0 11/14/20 18:49: PT 12.7, INR 1.0, APTT 28.1 11/14/20 18:49: Sodium 140, Potassium 4.2, Chloride 107, Carbon Dioxide 28.0, Anion Gap 5, BUN 13, Creatinine 0.97, Estim Creat Clear Calc 40.85, Est GFR (MDRD) Af Amer 72, Est GFR (MDRD) Non-Af 60, BUN/Creatinine Ratio 13.4, Glucose 124 H, Calcium 8.2 L, Total Bilirubin 0.30, AST 20, ALT 18, Alkaline Phosphatase 115, Troponin I High Sens 12, Total Protein 6.7, Albumin 3.1 L, Globulin 3.6, Albumin/Globulin Ratio 0.9 11/14/20 19:25: Lactic Acid 1.0 11/14/20 19:30: Urine Color Yellow, Urine Clarity Clear, Urine pH 6.0, Ur Specific [place] 1.015, Urine Protein Negative, Urine Glucose (UA) Normal, Urine Ketones Negative, Urine Occult Blood Negative, Urine Nitrite Negative, Urine Bilirubin Negative, Urine Urobilinogen Normal, Ur Leukocyte Esterase 25 H, Urine RBC 0 SEEN, Urine WBC 0-5 SEEN, Ur Squamous Epith Cells 0-5 SEEN, Urine Bacteria 0 SEEN, Urine Mucus 0 SEEN 11/14/20 22:19: Troponin I High Sens [address] 11/14/20 19:12 IMPRESSION: Atrophy and advanced periventricular white matter ischemic changes with old right lacunar infarct. No acute bleed. If concern for acute infarct MRI recommended Electronically Signed: Hany Desai MD at 20:19 EDT , Service support , Abdomen/Pelvis CT 11/14/20 19:44 IMPRESSION: Diverticular disease of the sigmoid colon without definitive evidence for acute diverticulitis. Nonspecific fatty infiltrated liver status post cholecystectomy Electronically Signed: Hany Desai MD at 22:41 EDT , Service support , Chest X-Ray 11/14/20 19:45 IMPRESSION: No acute radiographic abnormalities. Electronically Signed: vJ Vazquez MD at 20:30 EDT Tel , Service support , Assessment & Plan Assessment/Plan (1) Acute confusion: PLAN: Acute confusion -Now resolved and patient is at baseline -Per daughter patient has presented like this with previous TIAs -Takes Aricept at baseline -Suspect patient has some baseline vascular dementia -We will rule out acute TIA secondary to symptoms on presentation -MRI/MRA in a.m. -Check echocardiogram -Unable to obtain CTA secondary to CT contrast given with abdominal and pelvis CAT scan on admission and would need to wait 24 hours prior to rebolus of contrast -Continue aspirin -Continue Plavix -Check lipids -If patient has not had an event monitor as an outpatient it may be prudent to check this -Patient is a vasculopath at baseline Hypertension -Continue home atenolol and lisinopril Hypothyroidism -Continue levothyroxine -Check TSH Hyperlipidemia -Continue atorvastatin CAD status post CABG/stents -Continue home medications History of stroke/TIA -Continue home aspirin and Plavix -See above COPD -As needed nebs -Recommend smoking cessation Seasonal allergies -Continue fexofenadine Depression/anxiety -Continue citalopram--would consider dose decrease as her current doses are slightly higher than recommended for age -Continue Wellbutrin -Continue home lorazepam--would recommend weaning this as well as an outpatient GERD -Continue PPI DVT prophylaxis -Lovenox -SCDs Charges/Coding Visit Charges Inpatient E&M: 48476 Init Hosp L3
[2020-11-15 05:41] LABS: Cholesterol 100 mg/dL (200); High Density Lipoprotein 33 mg/dL; Thyroid Stim Hormone (TSH) 2.56 uIU/mL (0.358-3.74); Triglycerides 120 mg/dL; Very Low Density Lipoprotein 24 mg/dL (5-40)
[2020-11-15] MEDS: Levothyroxine 75 MCG Tablet PO (06:00)
[2020-11-15] MEDS: buPROPion 100 MG Tablet PO (08:40)
[2020-11-15] MEDS: Citalopram 40 MG TABLET PO (08:41)
[2020-11-15] MEDS: LORazepam 1 MG Tablet PO ×2 (08:41→12:15)
[2020-11-15] MEDS: Lisinopril 40 MG Tablet PO (08:41)
[2020-11-15] MEDS: Pantoprazole Sodium 40 MG Tablet PO (08:41)
[2020-11-15] MEDS: Atenolol 25 MG Tablet PO (08:41)
[2020-11-15] MEDS: Aspirin E.C. 81 MG Tablet PO (08:41)
[2020-11-15] MEDS: Loratadine 10 MG Tablet PO (08:41)
[2020-11-15] MEDS: Clopidogrel Bisulfate 75 MG Tablet PO (08:41)
--- NOTE | 2020-11-15 12:00 | CASEMGMT ---
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 MRI neg. CM to follow for any further discharge planning/needs. SStbinh LOPEZ CM
--- NOTE | 2020-11-15 12:10 | PCM.DC ---
Discharge Instructions Diet Discharge Diet: Low fat / Low cholesterol Activity Discharge Activity: Return to Normal Activity Dressing / Incision Call your doctor if you observe: Shortness of breath, Dizziness and Chest pain Follow Up Care Test Results: Test results from this visit will be discussed in further detail at your follow-up appointment, if applicable. Discharge Plan Admission Admit Date/Time: 11/15/20 00:14 Primary Reason for Your Visit: TIA Attending Provider: Juanito Marlow Primary Care Provider: Zully Rojas Discharge Orders/Prescriptions Prescriptions: Continued clopidogrel 75 mg tablet 75 mg PO QODAY RF: 0 albuterol sulfate 0.63 mg/3 mL solution for nebulization 0.63 mg INHALATION Q4H PRN (Reason: Congestion) RF: 0 aspirin 81 MG tablet 81 mg PO DAILY@0800 RF: 0 levothyroxine 75 MCG tablet 75 mcg PO DAILY RF: 0 citalopram 40 mg tablet 40 mg PO DAILY RF: 0 lisinopril 40 mg tablet 40 mg PO DAILY RF: 0 atenolol 50 MG tablet 25 mg PO DAILY RF: 0 atorvastatin 40 MG tablet 40 mg PO DAILY RF: 0 citalopram 20 MG tablet 20 mg PO LUNCH RF: 0 lorazepam 1 MG tablet 1 mg PO 4X/DAY RF: 0 bupropion HCl 100 MG tablet 100 mg PO DAILY RF: 0 pantoprazole 40 MG tablet 40 mg PO DAILY RF: 0 ondansetron 4 MG tablet 4 mg PO Q8H PRN PRN (Reason: Nausea) Qty: 10 RF: 0 donepezil 5 MG tablet 5 mg PO QHS RF: 0 fexofenadine 60 MG tablet 60 mg PO DAILY RF: 0 meloxicam 15 MG tablet 15 mg PO DAILY RF: 0 ketorolac 10 mg tablet 10 mg PO TID PRN (Reason: pain) Qty: 10 RF: 0 Referrals / Follow Up: Zully Rojas MD [Primary Care Provider] - In 1 Week John Kirby MD [STAFF PHYSICIAN] - Within 1 Month Disposition Disposition (needs filled in before D/C Order can be placed): Home, Self Care
--- NOTE | 2020-11-15 12:13 | PCM.DC.SUM ---
Documented by User: Abena Dennis NP, [employer] ARCHITECT-C 11/15/20 12:19 Providers Date of Admission: 11/15/20 Date of Discharge: 11/15/20 Primary Care Physician: Dr. Zully Rojas MD Reason For Visit: TIA Diagnosis Discharge Diagnosis (1) Acute confusion: Status: Acute Code(s): R41.0 - Disorientation, unspecified Medications at Discharge Home Medications aspirin 81 mg PO DAILY@0800 09/06/17 levothyroxine 75 mcg PO DAILY 09/06/17 citalopram 40 mg tablet 40 mg PO DAILY 12/18/17 clopidogrel 75 mg tablet 75 mg PO QODAY 12/18/17 lisinopril 40 mg tablet 40 mg PO DAILY tab 12/18/17 atenolol 25 mg PO DAILY 01/05/18 atorvastatin 40 mg PO DAILY 01/05/18 citalopram 20 mg PO LUNCH 06/27/18 lorazepam 1 mg PO 4X/DAY 06/28/18 albuterol sulfate 0.63 mg/3 mL solution for nebulization 0.63 mg INHALATION Q4H PRN 07/14/18 bupropion HCl 100 mg PO DAILY 01/16/19 ondansetron 4 mg PO Q8H PRN PRN #10 tab 01/16/19 pantoprazole 40 mg PO DAILY 01/16/19 donepezil 5 mg PO QHS 10/10/19 fexofenadine 60 mg PO DAILY 10/10/19 meloxicam 15 mg PO DAILY 10/10/19 ketorolac 10 mg PO TID PRN #10 tab 10/19/20 Hospital Course Operations None Procedures 2-D Echocardiogram Summary of Care Provided Minutes Spent on Discharge: 35 Hospital Course: Patient is a 75-year-old female admitted November 15, 2020 due to acute confusion. 1. TIA, transient confusion-history of TIA/CVA. Symptoms have resolved. No other neurologic or focal deficits. UA, labs unremarkable. MRI of brain with no acute infarct. MRA of neck normal. Echocardiogram completed, report pending at discharge. Follow-up with PCP and neurology at discharge. Continue aspirin, statin. 2. Hypertension-continue atenolol, lisinopril. 3. Hypothyroidism-continue Synthroid. 4. Hyperlipidemia-lipid panel unremarkable. Continue current statin regimen. 5. CAD with history of CABG/stents-continue medical management. 6. COPD-no exacerbation. 7. Depression/anxiety-on citalopram, Wellbutrin, lorazepam. Recommend weaning lorazepam with eventual discontinuation as outpatient. 8. GERD-continue PPI. Patient seen and examined prior to discharge. Physical assessment as noted below. Patient is stable for discharge with follow up recommendations as noted above. This patient was seen by ROSA Velazquez under the supervision of Dr. Marlow. Physical Exam Const alert, oriented x3 and no apparent distress Orientation / Consciousness: awake, oriented to person, oriented to place and oriented to time HEENT normocephalic and moist oral mucous membranes Eyes PERRL, EOMs intact bilaterally and conjunctivae normal Neck no lymphadenopathy Resp normal respiratory effort and clear to auscultation bilaterally Cardio regular rate, regular rhythm and no murmurs Peripheral Pulses: pulses 2+ throughout GI normal to inspection, nondistended, normoactive bowel sounds, non-tender and non-distended Extremity normal to inspection Skin no rashes or lesions noted Lesions: no lesions Rashes: no rashes Trauma: no lacerations or abrasions Neuro CN's II-XII intact bilaterally, no focal motor deficits, no sensory deficits noted and deep tendon reflexes 2+ bilaterally Psych mental status grossly normal and affect normal Weight / BMI Weight Weight: 157 lb 13.616 oz Body Mass Index (BMI) 29.8 ABG / Lab / Microbiology Data Result Diagrams: 11/14/20 18:49 11/14/20 18:49 Laboratory: Laboratory Results - last 24 hr 11/14/20 18:49: WBC 9.0, RBC 4.52, Hgb 12.9, Hct 40.3, MCV 89.2, MCH 28.5, MCHC 32.0, RDW Std Deviation 44.2 H, RDW Coeff of John 13.7, Plt Count 253, MPV 11.8, Immature Gran % (Auto) 0.200, Neut % (Auto) 48.9, Lymph % (Auto) 41.3 H, [place] % (Auto) 6.8, Eos % (Auto) 2.4, Baso % (Auto) 0.4, Absolute Neuts (auto) 4.4, Absolute Lymphs (auto) 3.72, Nucleated RBC % 0 11/14/20 18:49: PT 12.7, INR 1.0, APTT 28.1 10/06/21 18:49: Sodium 140, Potassium 4.2, Chloride 107, Carbon Dioxide 28.0, Anion Gap 5, BUN 13, Creatinine 0.97, Estim Creat Clear Calc 40.85, Est GFR (MDRD) Af Amer 72, Est GFR (MDRD) Non-Af 60, BUN/Creatinine Ratio 13.4, Glucose 124 H, Calcium 8.2 L, Total Bilirubin 0.30, AST 20, ALT 18, Alkaline Phosphatase 115, Troponin I High Sens 12, Total Protein 6.7, Albumin 3.1 L, Globulin 3.6, Albumin/Globulin Ratio 0.9 11/14/20 19:25: Lactic Acid 1.0 11/14/20 19:30: Urine Color Yellow, Urine Clarity Clear, Urine pH 6.0, Ur Specific [place] 1.015, Urine Protein Negative, Urine Glucose (UA) Normal, Urine Ketones Negative, Urine Occult Blood Negative, Urine Nitrite Negative, Urine Bilirubin Negative, Urine Urobilinogen Normal, Ur Leukocyte Esterase 25 H, Urine RBC 0 SEEN, Urine WBC 0-5 SEEN, Ur Squamous Epith Cells 0-5 SEEN, Urine Bacteria 0 SEEN, Urine Mucus 0 SEEN 11/14/20 22:19: Troponin I High Sens 13 11/15/20 04:34: Triglycerides 120, Cholesterol 100, LDL Cholesterol 43, VLDL Cholesterol 24, HDL Cholesterol 33 L, TSH 2.56 Radiography Diagnostic Testing: Radiology Impression Brain CT 11/14/20 19:12 IMPRESSION: Atrophy and advanced periventricular white matter ischemic changes with old right lacunar infarct. No acute bleed. If concern for acute infarct MRI recommended Electronically Signed: Hany Desai MD at 20:19 EDT , Service support , Abdomen/Pelvis CT 11/14/20 19:44 IMPRESSION: Diverticular disease of the sigmoid colon without definitive evidence for acute diverticulitis. Nonspecific fatty infiltrated liver status post cholecystectomy Electronically Signed: Hany Desai MD at 22:41 EDT , Service support , Chest X-Ray 11/14/20 19:45 IMPRESSION: No acute radiographic abnormalities. Electronically Signed: Jv Vazquez MD at 20:30 EDT Tel , Service support , Brain MRI 11/15/20 00:19 IMPRESSION: Involutional changes of the brain, as described above. No acute infarct. Electronically Signed: Murtaza Donald MD at 10:44 EDT Tel , Service support , Head MRA 11/15/20 01:24 IMPRESSION: Normal MRA of the head Electronically Signed: Murtaza Donald MD at 11:08 EDT Tel , Service support , Neck MRA 11/15/20 01:24 IMPRESSION: Normal bilateral cervical carotid and vertebral arteries. Electronically Signed: Murtaza Donald MD at 10:59 EDT Tel , Service support , D/C Instructions Discharge Diet: Low fat / Low cholesterol Call your doctor if you observe: Shortness of breath, Dizziness and Chest pain Meaningful Use Info Meaningful Use Diagnoses (Choose all that apply): None applicable Discharge Plan Admission Admit Date/Time: 11/15/20 00:14 Primary Reason for Your Visit: TIA Attending Provider: Juanito Marlow Primary Care Provider: Zully Rojas Discharge Orders/Prescriptions Prescriptions: Continued clopidogrel 75 mg tablet 75 mg PO QODAY RF: 0 albuterol sulfate 0.63 mg/3 mL solution for nebulization 0.63 mg INHALATION Q4H PRN (Reason: Congestion) RF: 0 aspirin 81 MG tablet 81 mg PO DAILY@0800 RF: 0 levothyroxine 75 MCG tablet 75 mcg PO DAILY RF: 0 citalopram 40 mg tablet 40 mg PO DAILY RF: 0 lisinopril 40 mg tablet 40 mg PO DAILY RF: 0 atenolol 50 MG tablet 25 mg PO DAILY RF: 0 atorvastatin 40 MG tablet 40 mg PO DAILY RF: 0 citalopram 20 MG tablet 20 mg PO LUNCH RF: 0 lorazepam 1 MG tablet 1 mg PO 4X/DAY RF: 0 bupropion HCl 100 MG tablet 100 mg PO DAILY RF: 0 pantoprazole 40 MG tablet 40 mg PO DAILY RF: 0 ondansetron 4 MG tablet 4 mg PO Q8H PRN PRN (Reason: Nausea) Qty: 10 RF: 0 donepezil 5 MG tablet 5 mg PO QHS RF: 0 fexofenadine 60 MG tablet 60 mg PO DAILY RF: 0 meloxicam 15 MG tablet 15 mg PO DAILY RF: 0 ketorolac 10 mg tablet 10 mg PO TID PRN (Reason: pain) Qty: 10 RF: 0 Referrals / Follow Up: Zully Rojas MD [Primary Care Provider] - In 1 Week John Kirby MD [STAFF PHYSICIAN] - Within 1 Month Disposition Disposition (needs filled in before D/C Order can be placed): Home, Self Care Documented by User: Dr. Juanito Marlow MD 11/15/20 16:48 Providers Date of Admission: 11/15/20 Reason For Visit: TIA Medications at Discharge Home Medications aspirin 81 mg PO DAILY@0800 09/06/17 levothyroxine 75 mcg PO DAILY 09/06/17 citalopram 40 mg tablet 40 mg PO DAILY 12/18/17 clopidogrel 75 mg tablet 75 mg PO QODAY 12/18/17 lisinopril 40 mg tablet 40 mg PO DAILY tab 12/18/17 atenolol 25 mg PO DAILY 01/05/18 atorvastatin 40 mg PO DAILY 01/05/18 citalopram 20 mg PO LUNCH 06/27/18 lorazepam 1 mg PO 4X/DAY 06/28/18 albuterol sulfate 0.63 mg/3 mL solution for nebulization 0.63 mg INHALATION Q4H PRN 07/14/18 bupropion HCl 100 mg PO DAILY 01/16/19 ondansetron 4 mg PO Q8H PRN PRN #10 tab 01/16/19 pantoprazole 40 mg PO DAILY 01/16/19 donepezil 5 mg PO QHS 10/10/19 fexofenadine 60 mg PO DAILY 10/10/19 meloxicam 15 mg PO DAILY 10/10/19 ketorolac 10 mg PO TID PRN #10 tab 10/19/20 Hospital Course Summary of Care Provided Hospital Course: This patient was seen in conjunction with Abena DUVAL. I have independently interviewed and examined the patient and reviewed pertinent history, examination findings, laboratory and plan of management. I have reviewed the note and agree with the documented findings with the few additional points. In brief, patient is admitted for change in mental status, acute confusion that has resolved. No focal neurological deficit. UA unremarkable. MRI brain and MRA head and neck reported negative for acute change. Report of 2D echo pending. Patient was evaluated by PT OT and speech condition. Patient is on aspirin and statin. LDL cholesterol 43. Triglycerides 120. Advised to follow-up with neurologist Kofi. Rest as comorbidities Rest of comorbidities as mentioned above I have discussed my assessment with Abena DUVAL and orders have been reviewed. Physical Exam Narrative Seen and examined. Patient puzzled about the change in mental status. Was confused but currently she is full oriented x3. General: Alert, Oriented x3, Cooperative HEENT: Atraumatic, PERRLA, EOMI, Normocephalic Oral: No Gingival or Mucosal Lesions/ Ulcerations Neck: Supple, No JVD, Negative Carotid Bruits Lungs: Air entry diminished in bilateral lung bases. No crepitation/rhonchi Cardiovascular: Regular rate, Regular Rhythm, Normal S1, Normal S2, No murmurs Abdomen: Bowel Sounds Present, Soft, Non Tender, Non-Distended : No renal angle tenderness. No suprapubic tenderness. Extremities: No edema, Capillary Refill Less than 3 Seconds Skin: No rashes, No breakdown Musculoskeletal: No Tenderness to Palpation of Joints or Extremities Neurological: Cranial nerves II-XII grossly intact, DTR 2+/4 and Symmetrical, Neuro grossly intact. NIH stroke scale 0. Psych/Mental Status: Normal Affect, Appropriate. ABG / Lab / Microbiology Data Result Diagrams: 11/14/20 18:49 11/14/20 18:49 Discharge Plan Admission Admit Date/Time: 11/15/20 00:14 Primary Reason for Your Visit: TIA Attending Provider: Juanito Marlow Primary Care Provider: Zully Rojas Discharge Orders/Prescriptions Prescriptions: Continued clopidogrel 75 mg tablet 75 mg PO QODAY RF: 0 albuterol sulfate 0.63 mg/3 mL solution for nebulization 0.63 mg INHALATION Q4H PRN (Reason: Congestion) RF: 0 aspirin 81 MG tablet 81 mg PO DAILY@0800 RF: 0 levothyroxine 75 MCG tablet 75 mcg PO DAILY RF: 0 citalopram 40 mg tablet 40 mg PO DAILY RF: 0 lisinopril 40 mg tablet 40 mg PO DAILY RF: 0 atenolol 50 MG tablet 25 mg PO DAILY RF: 0 atorvastatin 40 MG tablet 40 mg PO DAILY RF: 0 citalopram 20 MG tablet 20 mg PO LUNCH RF: 0 lorazepam 1 MG tablet 1 mg PO 4X/DAY RF: 0 bupropion HCl 100 MG tablet 100 mg PO DAILY RF: 0 pantoprazole 40 MG tablet 40 mg PO DAILY RF: 0 ondansetron 4 MG tablet 4 mg PO Q8H PRN PRN (Reason: Nausea) Qty: 10 RF: 0 donepezil 5 MG tablet 5 mg PO QHS RF: 0 fexofenadine 60 MG tablet 60 mg PO DAILY RF: 0 meloxicam 15 MG tablet 15 mg PO DAILY RF: 0 ketorolac 10 mg tablet 10 mg PO TID PRN (Reason: pain) Qty: 10 RF: 0 Referrals / Follow Up: Zully Rojas MD [Primary Care Provider] - In 1 Week John Kirby MD [STAFF PHYSICIAN] - Within 1 Month Disposition Disposition (needs filled in before D/C Order can be placed): Home, Self Care Charges/Coding Visit Charges OBSV E&M: 00174 Observation care discharge
[2020-11-15] MEDS: Citalopram 20 MG Tablet PO (12:15)
--- NOTE | 2020-11-15 13:33 | CASEMGMT ---
SW completed a PHQ 9 with patient as she had a TIA. She scored a 5 which indicates mild depression. She declined need for counseling resources. She said she has friends and family that are very supportive. Fern Carrera MSW NIKITA
== END 2020-11-15 12:11 | disposition home or self-care (01) ==
LOC: ED 11-15 00:18 → PCU 11-15 00:25
PROVIDERS: Admitting Provider Internal Medicine; Emergency Provider Emergency Medicine; PCP Internal Medicine; Visit Provider Internal Medicine
DX: G45.9 Transient cerebral ischemic attack, unspecified (principal); Z23 Encounter for immunization; I10 Essential (primary) hypertension; E03.9 Hypothyroidism, unspecified; E78.5 Hyperlipidemia, unspecified; J44.9 Chronic obstructive pulmonary disease, unspecified; I25.10 Atherosclerotic heart disease of native coronary artery without angina pectoris; F41.9 Anxiety disorder, unspecified; K21.9 Gastro-esophageal reflux disease without esophagitis; F32.A Depression, unspecified; Z86.73 Personal history of transient ischemic attack (TIA), and cerebral infarction without residual deficits; Z79.899 Other long term (current) drug therapy; Z79.82 Long term (current) use of aspirin; G47.33 Obstructive sleep apnea (adult) (pediatric); I27.21 Secondary pulmonary arterial hypertension; F17.210 Nicotine dependence, cigarettes, uncomplicated; Z95.1 Presence of aortocoronary bypass graft
CPT/HCPCS: 36415; 70450; 70544; 70547; 70551; 71045; 74177; 80053; 80061; 81001; 83605; 84443; 84484; 85025; 85610; 85730; 87040; 93005; 93306; 96360; 97162; 97166; 99218; 99285; G0008; J7030; Q9967; 90686; A4216; G0378

== ENCOUNTER 2021-03-19 12:42 | Outpatient (CLI) | payer MEDICARE, SELFPAY ==
[2017-12-28 13:50] VITALS: BMI 29.2
--- NOTE | 2021-03-19 12:51 | CDU_ITS ---
Reason For Study: Carotid stenosis Rt. Velocities/BP Lt. Velocities/BP Prox CCA 70.8/9.5 cm/sec. Prox CCA 88.4/9.4 cm/sec. Mid CCA 72.1/10.8 cm/sec. Mid CCA 77.3/11.5 cm/sec. Dist CCA 61.7/12.1 cm/sec. Dist CCA 80.9/11.5 cm/sec. Prox ICA 97.4/22.5 cm/sec. Prox ICA 99.2/29.8 cm/sec. Mid ICA 111.5/15 cm/sec. Mid ICA 99.2/22.5 cm/sec. Dist ICA 91.9/13.3 cm/sec. Dist ICA 102.8/24.3 cm/sec. Rt. ICA/CCA = 1.57. Lt. ICA/CCA = 1.27. Prox ECA 146.7/7.9 cm/sec. Prox ECA 155.8/7.9 cm/sec. Rt. Vert. 43.4/10.2 cm/sec. Lt. Vert. 64.5/7.9 cm/sec. Right Extracranial There is homogeneous, smooth atherosclerotic plaque noted in the right common carotid artery. There is heterogeneous, irregular atherosclerotic plaque noted in the right internal carotid artery. There is heterogeneous, irregular atherosclerotic plaque noted in the right external carotid artery. Antegrade flow is noted in the right vertebral artery. Left Extracranial There is homogeneous, smooth atherosclerotic plaque noted in the left common carotid artery. There is heterogeneous, irregular atherosclerotic plaque noted in the left internal carotid artery. There is heterogeneous, irregular atherosclerotic plaque noted in the left external carotid artery. Antegrade flow is noted in the left vertebral artery. Procedure Carotid Duplex 70546. This is a Carotid Duplex examination using B-mode, color flow and specral Doppler. Exam performed in department. VL/Carotid Duplex Ultrasound Interpretation Summary Mild (<50%) stenosis right extracranial internal carotid. Mild (<50%) stenosis left extracranial internal carotid. Flow within the vertebral arteries is antegrade bilaterally. Ordering Physician: Gregory Barker Referring Physician: Zully Guevara Performed By: Marilou Freeman RVT
--- NOTE | 2021-03-19 12:51 | ART_ITS ---
Reason For Study: PVD Procedure A bilateral lower extremity continuous wave Doppler with analog waveform analysis and ankle brachial indexes. Left Segmental Pressures Left brachial= 166mmHg. Left posterior tibial artery = 167mmHg. Left dorsalis pedis artery = 143mmHg. Left digit = 88 mmHg. The left dorsalis pedis waveforms are triphasic. The left posterior tibial artery waveforms are triphasic. Right Segmental Pressures Right brachial= 160mmHg. Right posterior tibial artery = 173mmHg. Right dorsalis pedis artery = 161mmHg. Right digit = 110 mmHg. The right dorsalis pedis waveforms are triphasic. The right posterior tibial artery waveforms are triphasic. Indices The right ankle brachial index by the dorsalis pedis is 0.97. The right ankle brachial index by the posterior tibial artery is 1.04. The right digital-brachial index is 0.66. The left ankle brachial index by the dorsalis pedis is 0.86. The left ankle brachial index by the posterior tibial artery is 1.01. The left digital-brachial index is 0.53. VL/Ankle Brachial Index Interpretation Summary Bilateral no significant occlusive disease at rest with bilateral triphasic bea w and an DEANNA 1.04 and 1.01. May have mild small vessel disease with a digit brachial index of 0.66 an d 0.53. Ordering Physician: Gregory Barker Referring Physician: Zully Rojas Performed By: Marilou Freeman RVT
== END 2021-03-19 23:59 | disposition home or self-care (01) ==
LOC: CVS 12:46
PROVIDERS: PCP Internal Medicine; Referring Provider Surgery Vascular Surgery; Visit Provider Surgery Vascular Surgery
DX: I73.9 Peripheral vascular disease, unspecified (principal); I63.9 Cerebral infarction, unspecified; I65.23 Occlusion and stenosis of bilateral carotid arteries; Z72.0 Tobacco use
CPT/HCPCS: 93880; 93922

== ENCOUNTER 2021-05-19 12:09 | Emergency (ER) | payer MEDICARE, SELFPAY ==
[2017-12-28 13:50] VITALS: BMI 29.2
[2021-05-19 12:09] VITALS: BP 160/86; PULSE 57; RESP 23; O2SAT 95
[2021-05-19 12:10] VITALS: BP 160/86; PULSE 69; RESP 15; TEMP 36.6; O2SAT 97; BMI 45.9
[2021-05-19 12:20] LABS: Bedside Glucose 134 mg/dL (74-106)
--- NOTE | 2021-05-19 12:27 | EDS_ITS ---
HPI History of Present Illness Chief Complaint: Dizziness Narrative Narrative: 76-year-old female with history of dementia, cardiac disease, anxiety, depression presenting with her daughter for evaluation. Apparently the daughter states that she has multiple episodes with a similar presentation of feeling nauseous and dizzy. She thought that her mother was having an anxiety attack this morning because she was very worked up. She states she looked like she does when she has an anxiety attack she starts to get to work up to get her words out, and becomes more anxious. Patient is reporting that she has had chest pain which feels like aching since yesterday when she was about 24 hours ago. Patient is a poor informant due to history of dementia. Her daughter states that this morning she was absolutely normal and not having any chest pain, or complaining of anything. She states that they were on their way to a alliance party an hour away when the patient started to have the symptoms. Patient's daughter is unsure if she just did not want to go to the alliance party. Patient's daughter states that this morning after breakfast her mom started to have nausea. Apparently the patient lives with a boyfriend who helps take care of her, and he reported that every morning she gets nauseous like this and has to lay down for a nap. Patient's daughter does not have any history of similar events like this. She does state that her mother is on nausea medicine daily for nausea. She also has history of GERD. No reported history of fever, vomiting, diarrhea. The patient reports that she is feeling generally weak. Her daughter states that she has been like this multiple times as well. She states has been to the emergency room multiple times for similar presentations. She has followed up outpatient. Patient's daughter does not know why she has these episodes. She is try to have her follow-up with a psychiatrist but she does not want to do so. Patient's daughter also states that she is prone to urinary tract infection secondary to wearing depends. She does not know how often she is changing these. [facility] Medical History Anxiety and depression Atherosclerosis of coronary artery of [place] heart with angina pectoris Back pain Benzodiazepine dependence COPD (chronic obstructive pulmonary disease) Essential (primary) hypertension H/O: pneumonia Hyperlipidemia Hypothyroidism Nicotine dependence Non-rheumatic tricuspid valve insufficiency Obstructive sleep apnea Secondary pulmonary arterial hypertension TIA (transient ischemic attack) Home Medications aspirin 81 mg PO DAILY@0800 09/06/17 [History Last Taken 10/03/18 08:00] levothyroxine 75 mcg PO DAILY 09/06/17 [History Last Taken 10/03/18 07:00] citalopram 40 mg tablet 40 mg PO DAILY 12/18/17 [History Last Taken 10/03/18 08:00] clopidogrel 75 mg tablet 75 mg PO QODAY 12/18/17 [History Last Taken 01/16/19] lisinopril 40 mg tablet 40 mg PO DAILY tab 12/18/17 [History Last Taken 10/03/18 08:00] atenolol 25 mg PO DAILY 01/05/18 [History Last Taken 10/03/18 08:00] atorvastatin 40 mg PO DAILY 01/05/18 [History Last Taken 10/02/18 22:00] citalopram 20 mg PO LUNCH 06/27/18 [History Last Taken 10/03/18 12:00] lorazepam 1 mg PO 4X/DAY 06/28/18 [History Last Taken 10/03/18 12:00] albuterol sulfate 0.63 mg/3 mL solution for nebulization 0.63 mg INHALATION Q4H PRN 07/14/18 [History Last Taken Unknown] bupropion HCl 100 mg PO DAILY 01/16/19 [History Last Taken Unknown] ondansetron 4 mg PO Q8H PRN PRN #10 tab 01/16/19 [Rx Last Taken Unknown] pantoprazole 40 mg PO DAILY 01/16/19 [History Last Taken Unknown] donepezil 5 mg PO QHS 10/10/19 [History Last Taken Unknown] fexofenadine 60 mg PO DAILY 10/10/19 [History Last Taken Unknown] meloxicam 15 mg PO DAILY 10/10/19 [History Last Taken Unknown] ketorolac 10 mg PO TID PRN #10 tab 10/19/20 [Rx Last Taken Unknown] Allergy/AdvReac Type Severity Reaction Status Date / Time morphine Allergy PT UNSURE Verified 05/19/21 12:10 Penicillins Allergy Hives Verified 05/19/21 12:10 tramadol HCl [From Ultram] Allergy PT UNSURE Verified 05/19/21 12:10 bupropion [From Wellbutrin] AdvReac hallucinati Verified 05/19/21 12:10 ons Surgical History History of appendectomy History of coronary artery bypass graft x 3 History of coronary artery stent placement (12/28/17) History of left heart catheterization (12/28/17) Hx of cholecystectomy Social History household members: other Smoking Status: Current every day smoker tobacco type: cigarettes details: Patient denies alcohol use substance use type: does not use ROS ROS ED Constitutional Constitutional ED: Denies chills or fever(s) Eyes Eyes: Denies blurry vision or change in vision ENT ENT ED: Denies rhinorrhea or sore throat Cardiovascular Cardiovascular: Reports as per HPI Respiratory/Chest Respiratory/Chest: Denies cough or dyspnea Gastrointestinal Gastrointestinal: Reports nausea; Denies abdominal pain, diarrhea or vomiting Genitourinary Genitourinary ED: Denies dysuria or hematuria Musculoskeletal Musculoskeletal: Denies arthralgias or myalgias Integumentary Denies rash Neurologic Neurologic: Reports other Details: Generalized weakness ; Denies headache(s) EXAM Physical Exam Const Vital Signs: 05/19/21 12:09 05/19/21 12:10 05/19/21 12:14 Temperature 97.9 F Temperature Source Temporal Pulse Rate 57 L 69 Respiratory Rate 23 H 15 Respiratory Effort Normal Respiratory Pattern Normal Blood Pressure 160/86 H 160/86 H Blood Pressure Mean 110 110 Pulse Ox 95 97 Oxygen Delivery Method Room Air Room Air 05/19/21 12:31 05/19/21 14:12 Temperature Temperature Source Pulse Rate 81 Respiratory Rate 16 Respiratory Effort Respiratory Pattern Blood Pressure 167/88 H Blood Pressure Mean 114 Pulse Ox 94 97 Oxygen Delivery Method Room Air Room Air Positive well nourished General Appearance ED: NAD; Negative for pallor HEENT normocephalic and atraumatic Eyes PERRL and EOMs intact bilaterally Resp normal respiratory effort and clear to auscultation bilaterally Cardio regular rhythm Rate: bradycardia GI normal to inspection, nondistended, normoactive bowel sounds Neuro CN's II-XII intact bilaterally Sensorium / Orientation: awake and alert Psych mental status grossly normal Skin General Skin Exam: Negative for jaundice or pallor MDM MDM MDM Narrative Medical decision making narrative: 76-year-old female with history of dementia presenting with altered mental status. Patient's daughter reports that she thinks she is selective. She feels that she does not want to go to the birthday alliance party and this is why she was acting this way. No signs of stroke. NIH is 0. Patient complaining of general weakness. Blood work is obtained and on her CBC and CMP are unremarkable with exception of an alkaline phosphatase of 135. EKG sinus rhythm with first-degree AV block at a rate of [address] elevation or depression. T wave inversion noted in V5, V6, lead I, lead II. High- sensitivity troponin is 9. In regards to her chest pain which she has had for reportedly 24 hours her work-up is negative. I do not believe she is a delta troponin. CHEST Urinalysis is negative for infection. Chest x-ray on my interpretation shows no acute cardiopulmonary process and the radiologist does agree. CT of the brain is negative for anything acute. Patient not acting at baseline and requesting her home dose of Ativan. She was ambulated and has a stable gait. I do not believe she has symptoms of TIA. This does not appear to be possibly behavioral and the patient does have dementia. Patient's daughter is her power of estate attorney is amenable to taking her home. Patient discharged in her care. Impression: 1. History of dementia 2. Confusion resolved 3. Anxiety disorder 4. chest pain Lab Data Attestation: I reviewed the patient's lab results. Labs: Laboratory Results - last 24 hr 05/19/21 05/19/21 05/19/21 12:15 12:28 12:28 WBC 10.9 RBC 4.70 Hgb 12.5 Hct 38.9 MCV 82.8 MCH 26.6 L MCHC 32.1 RDW Std Deviation 41.6 RDW Coeff of John 13.6 Plt Count 328 MPV 11.0 Immature Gran % (Auto) 0.300 Neut % (Auto) 53.3 Lymph % (Auto) 38.1 Mcmullen % (Auto) 5.2 Eos % (Auto) 2.6 Baso % (Auto) 0.5 Absolute Neuts (auto) 5.8 Absolute Lymphs (auto) 4.14 Nucleated RBC % 0 Sodium 137 Potassium 4.1 Chloride 104 Carbon Dioxide 30.0 Anion Gap 3 L BUN 14 Creatinine 0.79 Estim Creat Clear Calc 57.74 Est GFR (MDRD) Af Amer 91 Est GFR (MDRD) Non-Af 75 BUN/Creatinine Ratio 17.7 Glucose 129 H Calcium 8.4 L Total Bilirubin 0.60 Direct Bilirubin 0.17 AST 14 L ALT 16 Alkaline Phosphatase 135 H Troponin I High Sens Total Protein 7.2 Albumin 3.6 Globulin 3.6 Urine Color Urine Clarity Urine pH Ur Specific [place] Urine Protein Urine Glucose (UA) Urine Ketones Urine Occult Blood Urine Nitrite Urine Bilirubin Urine Urobilinogen Ur Leukocyte Esterase Urine RBC Urine WBC Ur Squamous Epith Cells Amorphous Sediment Urine Bacteria Urine Mucus POC Glucose 134 H 05/19/21 05/19/21 12:28 14:04 WBC RBC Hgb Hct MCV MCH MCHC RDW Std Deviation RDW Coeff of John Plt Count MPV Immature Gran % (Auto) Neut % (Auto) Lymph % (Auto) Mcmullen % (Auto) Eos % (Auto) Baso % (Auto) Absolute Neuts (auto) Absolute Lymphs (auto) Nucleated RBC % Sodium Potassium Chloride Carbon Dioxide Anion Gap BUN Creatinine Estim Creat Clear Calc Est GFR (MDRD) Af Amer Est GFR (MDRD) Non-Af BUN/Creatinine Ratio Glucose Calcium Total Bilirubin Direct Bilirubin AST ALT Alkaline Phosphatase Troponin I High Sens 9 Total Protein Albumin Globulin Urine Color Yellow Urine Clarity Clear Urine pH 6.5 Ur Specific [place] 1.020 Urine Protein Negative Urine Glucose (UA) Normal Urine Ketones Negative Urine Occult Blood 10 H Urine Nitrite Negative Urine Bilirubin Negative Urine Urobilinogen Normal Ur Leukocyte Esterase 25 H Urine RBC 0 SEEN Urine WBC 5-10 SEEN Ur Squamous Epith Cells 5-10 SEEN Amorphous Sediment 1+ Urine Bacteria 1+ Urine Mucus 0 SEEN POC Glucose Radiography Diagnostic Testing: Clinical Impression(s) from Imaging Studies Chest X-Ray 05/19/21 12:27 IMPRESSION: Status post CABG. No active pulmonary disease. Calcific tendinitis of the left shoulder. Electronically Signed: Polo Daniels MD at 13:00 EDT , Brain CT 05/19/21 12:29 IMPRESSION: 1. Chronic involutional changes of the brain. 2. Old lacunar infarct in the right basal ganglia. 3. No acute intracranial process. 4. Retention cyst in the right maxillary sinus. Electronically Signed: Polo Daniels MD at 12:55 EDT , Discharge Plan Triage Chief Complaint: Dizziness ED Provider: Ryley Arora Dx/Rx/DC Orders Prescriptions: No Action clopidogrel 75 mg tablet 75 mg PO QODAY RF: 0 albuterol sulfate 0.63 mg/3 mL solution for nebulization 0.63 mg INHALATION Q4H PRN (Reason: Congestion) RF: 0 aspirin 81 MG tablet 81 mg PO DAILY@0800 RF: 0 levothyroxine 75 MCG tablet 75 mcg PO DAILY RF: 0 citalopram 40 mg tablet 40 mg PO DAILY RF: 0 lisinopril 40 mg tablet 40 mg PO DAILY RF: 0 atenolol 50 MG tablet 25 mg PO DAILY RF: 0 atorvastatin 40 MG tablet 40 mg PO DAILY RF: 0 citalopram 20 MG tablet 20 mg PO LUNCH RF: 0 lorazepam 1 MG tablet 1 mg PO 4X/DAY RF: 0 bupropion HCl 100 MG tablet 100 mg PO DAILY RF: 0 pantoprazole 40 MG tablet 40 mg PO DAILY RF: 0 ondansetron 4 MG tablet 4 mg PO Q8H PRN PRN (Reason: Nausea) Qty: 10 RF: 0 donepezil 5 MG tablet 5 mg PO QHS RF: 0 fexofenadine 60 MG tablet 60 mg PO DAILY RF: 0 meloxicam 15 MG tablet 15 mg PO DAILY RF: 0 ketorolac 10 mg tablet 10 mg PO TID PRN (Reason: pain) Qty: 10 RF: 0 Primary Care Provider: Zully Rojas
--- NOTE | 2021-05-19 12:27 | RAD_ITS ---
STUDY: X-RAY CHEST REASON FOR EXAM: Female, 76 years old. Chest pain TECHNIQUE: Single AP portable view of the chest. COMPARISON: 11/14/2020 FINDINGS: Well-defined left basilar opacity consistent with focal eventration of the left hemidiaphragm. No focal infiltrate is seen. There is no demonstrated pleural abnormality. Sternal cerclage wires and vascular clips are present from a prior sternotomy and coronary artery bypass graft procedure (CABG). Stable cardiomediastinal silhouette. Normal mediastinum and [place]. Normal visualized pulmonary arteries. Atherosclerotic calcifications of the aortic arch. Calcific tendinitis of the left shoulder. There is no demonstrated abnormality of the visualized soft tissue structures of the upper abdomen. RAD/Chest 1 View (Portable) IMPRESSION: Status post CABG. No active pulmonary disease. Calcific tendinitis of the left shoulder. Electronically Signed: Polo Daniels MD at 13:00 EDT ,
--- NOTE | 2021-05-19 12:27 | EKG12_ITS ---
Test Reason : CP Blood Pressure : / mmHG Vent. Rate : 055 BPM Atrial Rate : 055 BPM P-R Int : 210 ms QRS Dur : 088 ms QT Int : 460 ms P-R-T Axes : 069 057 136 degrees QTc Int : 440 ms Sinus bradycardia with 1st degree A-V block Nonspecific T wave abnormality Abnormal ECG Confirmed by LEONEL GOLD, EMILY ([id number]), desk editor CAIO KUHN ([id number]) on 05/22/2021 11:28:10 AM Referred By: BRENDAN Confirmed By:EMILY CASTANEDA MD
--- NOTE | 2021-05-19 12:29 | CT_ITS ---
STUDY: CT BRAIN WITHOUT CONTRAST REASON FOR EXAM: Female, 76 years old. Altered mental status RADIATION DOSAGE (If Supplied By Facility): CTDIvol = ( 44.99 ) mGy, DLP = ( 779.24 ) mGycm TECHNIQUE: Transaxial CT imaging of the brain was performed without administration of intravenous contrast material. Individualized dose optimization techniques were used for this CT. COMPARISON: Prior MRI of 11/15/2020. FINDINGS: Normal soft tissue structures. Normal calvarium. There is mild cerebral atrophy with widening of the extra-axial spaces and ventricular dilatation. There are areas of decreased attenuation within the white matter tracts of the supratentorial brain, consistent with microvascular disease changes. Small old lacunar infarct in the right basal ganglia is again seen. Normal brainstem. Normal cerebellum. There is no intracranial hemorrhage. There are no findings of an acute ischemic infarction. Mucosal thickening of the right maxillary sinus and retention cyst. CT/Brain/Head without Contrast IMPRESSION: 1. Chronic involutional changes of the brain. 2. Old lacunar infarct in the right basal ganglia. 3. No acute intracranial process. 4. Retention cyst in the right maxillary sinus. Electronically Signed: Polo Daniels MD at 12:55 EDT ,
[2021-05-19 12:31] VITALS: O2SAT 94
[2021-05-19 12:37] LABS: Absolute Lymphocyte Count 4.14 X10^3/uL (0.83-4.51); Absolute Neutrophil Count 5.8 X10^3/uL (2.0-7.7); Basophil# 0.05 X10^3/uL; Basophil% 0.5 % (0-1); Eosinophil# 0.28 X10^3/uL; Eosinophils% 2.6 % (0-5); Hematocrit 38.9 % (37-47); Hemoglobin 12.5 g/dL (12.0-15.0); Lymphocyte # 4.14 X10^3/ul (0.83-4.51); Lymphocyte % 38.1 % (19-41); Mean Corp Hgb Conc 32.1 g/dL (32-36); Mean Corpuscular Hgb 26.6 pg (27.0-32.0); Mean Corpuscular Volume 82.8 fL (81-99); Monocyte# 0.57 X10^3/uL; Monocyte% 5.2 % (0-10); NRBC Flagged by Analyzer 0 % (0-5); Neutrophil % 53.3 % (47-70); Platelet Count 328 K/mm3 (150-450); RBC Distribution Width CV 13.6 % (11.6-14.6); RBC Distribution Width SD 41.6 fl (35.1-43.9); White Blood Count 10.9 K/mm3 (4.4-11.0)
[2021-05-19 12:52] LABS: AST(SGOT) 14 U/L (15-37); Alanine Aminotransfer ALT/SGPT 16 U/L (13-56); Albumin, Serum 3.6 g/dL (3.2-5.0); Alkaline Phosphatase 135 U/L (45-117); Anion Gap 3 (5-15); BUN 14 mg/dL (7-18); BUN/Creat Ratio 17.7 RATIO (10-20); Bilirubin, Direct 0.17 mg/dL (0.00-0.30); Calcium,Total 8.4 mg/dL (8.5-10.1); Chloride 104 mmol/L (98-107); Creatinine, Serum 0.79 mg/dL (0.55-1.02); EST Glomerular Filtration Rate 75 mL/min (>60); Est Glom Filt Rate - Afr Amer 91 mL/min (>60); Estimated Creatinine Clearance 57.74 ml/min; Globulin 3.6 g/dL (2.2-4.2); Glucose 129 mg/dL (74-106); Potassium 4.1 mmol/L (3.5-5.1); Protein, Total 7.2 g/dL (6.4-8.2); Sodium Level 137 mmol/L (136-145)
[2021-05-19 12:55] LABS: Troponin-I HS (w/2H Reflex) 9 pg/mL (3.0-54.0)
[2021-05-19] MEDS: LORazepam 1 MG Tablet PO (13:21)
[2021-05-19 14:11] LABS: Mucous, Urine 0 SEEN /hpf (<or=2+); Red Blood Cells-Urine 0 SEEN /hpf (0-5)
[2021-05-19 14:12] VITALS: BP 167/88; PULSE 81; RESP 16; O2SAT 97
[2021-05-19 14:15] LABS: Color, Urine Yellow (Yellow); Glucose, Dipstick Normal (Normal); Ketone-Dipstick Negative (Negative); Leukocyte Esterase-Dipstick 25 /ul (Negative); Nitrite-Dipstick Negative (Negative); Occult Blood-Urine 10 /ul (Negative); Protein-Dipstick Negative (Negative); Urine Bilirubin Dipstick Negative (Negative); Urine Clarity Clear (Clear); Urine Urobilinogen Normal (Normal); Urine pH 6.5 (5.0 - 8.0)
[2021-05-19 14:22] LABS: Amorphous Sediment 1+; Bacteria 1+ /hpf (None Seen); Squamous Epithelial Cells - UA 5-10 SEEN /hpf (5-10); White Blood Cells 5-10 SEEN /hpf (0-5)
[2021-05-19 14:33] LABS: Reflex Troponin-HS? (from REC) Y
[2021-05-19 15:02] VITALS: BP 159/72; PULSE 81; RESP 16; O2SAT 94
== END 2021-05-19 15:03 | disposition home or self-care (01) ==
PROVIDERS: Emergency Provider Student in an Organized Health Care Education/Training Program; PCP Internal Medicine; Visit Provider Student in an Organized Health Care Education/Training Program
DX: F41.9 Anxiety disorder, unspecified (principal); J44.9 Chronic obstructive pulmonary disease, unspecified; G47.33 Obstructive sleep apnea (adult) (pediatric); R07.9 Chest pain, unspecified; I10 Essential (primary) hypertension; F17.210 Nicotine dependence, cigarettes, uncomplicated; E78.5 Hyperlipidemia, unspecified; F32.A Depression, unspecified; I25.10 Atherosclerotic heart disease of native coronary artery without angina pectoris; E03.9 Hypothyroidism, unspecified; Z79.82 Long term (current) use of aspirin; Z79.899 Other long term (current) drug therapy; Z86.73 Personal history of transient ischemic attack (TIA), and cerebral infarction without residual deficits; Z95.5 Presence of coronary angioplasty implant and graft
CPT/HCPCS: 70450; 71045; 80048; 80076; 81001; 82962; 84484; 85025; 93005; 99285; A4216; J2405

== ENCOUNTER 2021-06-04 16:38 | Emergency (ER) | payer MEDICARE, SELFPAY ==
[2017-12-28 13:50] VITALS: BMI 29.2
[2021-06-04 16:39] VITALS: BP 155/69; PULSE 57; RESP 16; TEMP 36.7; O2SAT 99; BMI 30.4
--- NOTE | 2021-06-04 17:05 | EKG12_ITS ---
Test Reason : ABDOMINAL PAIN Blood Pressure : / mmHG Vent. Rate : 061 BPM Atrial Rate : 061 BPM P-R Int : 198 ms QRS Dur : 086 ms QT Int : 422 ms P-R-T Axes : 067 059 161 degrees QTc Int : 424 ms Normal sinus rhythm ST & T wave abnormality, consider inferior ischemia ST & T wave abnormality, consider anterolateral ischemia Abnormal ECG Confirmed by LEONEL GOLD, EMILY ([id number]), editor magazine WALLY LOAIZA ([id number]) on 06/06/2021 8:58:50 AM Referred By: BRENDAN Confirmed By:EMILY CASTANEDA MD
--- NOTE | 2021-06-04 17:06 | EDS_ITS ---
HPI HPI - GI History of Present Illness Chief Complaint: Abd Pain Detail of Chief Complaint: Nausea and abdominal pain x1-1/2 weeks Informant: patient Narrative Narrative: Patient presents to the emergency department via EMS from home. Patient states that she has had significant nausea for the last week and a half. Patient states that she has been drinking fluids but today is the first day she try to eat some food. She describes some intermittent abdominal pain especially with certain movements. Pain is mostly on the right side. Patient has had prior appendectomy and cholecystectomy. She had no vomiting. She denies diarrhea. She denies blood in her stool or black tarry stool. She denies urinary symptoms. Patient states she is urinating normally. 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 Back pain Benzodiazepine dependence COPD (chronic obstructive pulmonary disease) Essential (primary) hypertension H/O: pneumonia Hyperlipidemia Hypothyroidism Nicotine dependence Non-rheumatic tricuspid valve insufficiency Obstructive sleep apnea Secondary pulmonary arterial hypertension TIA (transient ischemic attack) Home Medications aspirin 81 mg PO DAILY@0800 09/06/17 [History Last Taken 10/03/18 08:00] levothyroxine 75 mcg PO DAILY 09/06/17 [History Last Taken 10/03/18 07:00] citalopram 40 mg tablet 40 mg PO DAILY 12/18/17 [History Last Taken 10/03/18 08:00] clopidogrel 75 mg tablet 75 mg PO QODAY 12/18/17 [History Last Taken 01/16/19] lisinopril 40 mg tablet 40 mg PO DAILY tab 12/18/17 [History Last Taken 10/03/18 08:00] atenolol 25 mg PO DAILY 01/05/18 [History Last Taken 10/03/18 08:00] atorvastatin 40 mg PO DAILY 01/05/18 [History Last Taken 10/02/18 22:00] citalopram 20 mg PO LUNCH 06/27/18 [History Last Taken 10/03/18 12:00] lorazepam 1 mg PO 4X/DAY 06/28/18 [History Last Taken 10/03/18 12:00] albuterol sulfate 0.63 mg/3 mL solution for nebulization 0.63 mg INHALATION Q4H PRN 07/14/18 [History Last Taken Unknown] bupropion HCl 100 mg PO DAILY 01/16/19 [History Last Taken Unknown] ondansetron 4 mg PO Q8H PRN PRN #10 tab 01/16/19 [Rx Last Taken Unknown] pantoprazole 40 mg PO DAILY 01/16/19 [History Last Taken Unknown] donepezil 5 mg PO QHS 10/10/19 [History Last Taken Unknown] fexofenadine 60 mg PO DAILY 10/10/19 [History Last Taken Unknown] meloxicam 15 mg PO DAILY 10/10/19 [History Last Taken Unknown] ketorolac 10 mg PO TID PRN #10 tab 10/19/20 [Rx Last Taken Unknown] metoclopramide HCl [Reglan] 5 mg PO DAILY PRN #10 tab 06/04/21 [Rx Last Taken Unknown] Allergy/AdvReac Type Severity Reaction Status Date / Time morphine Allergy PT UNSURE Verified 05/19/21 12:10 Penicillins Allergy Hives Verified 05/19/21 12:10 tramadol HCl [From Ultram] Allergy PT UNSURE Verified 05/19/21 12:10 bupropion [From Wellbutrin] AdvReac hallucinati Verified 05/19/21 12:10 ons Surgical History History of appendectomy History of coronary artery bypass graft x 3 History of coronary artery stent placement (12/28/17) History of left heart catheterization (12/28/17) Hx of cholecystectomy Social History household members: other Smoking Status: Current every day smoker tobacco type: cigarettes details: Patient denies alcohol use substance use type: does not use ROS ROS ED Constitutional Constitutional ED: Reports systems reviewed and no addt'l complaints, except as documented; Denies body ache(s), change in weight or chills Eyes Eyes: Denies acute decrease in peripheral vision, change in vision, double vision or loss of vision ENT ENT ED: Reports none; Denies ear pain, lip swelling, loss taste/smell, neck pain, otalgia or sore throat Cardiovascular Cardiovascular: Reports none; Denies abdominal pain, chest pain with activity, leg edema, lightheadedness, palpitations, rapid heart rate or syncope Respiratory/Chest Respiratory/Chest: Reports none; Denies change in mental status, dry cough, dyspnea, hemoptysis, shortness of breath at rest or shortness of breath with exertion Gastrointestinal Gastrointestinal: Reports none, abdominal pain and nausea; Denies change in stool character, diarrhea, hematemesis, hematochezia, melena, rectal bleeding or vomiting Genitourinary Genitourinary ED: Reports none; Denies abdominal discomfort, anuria, dysuria, genital pain or polyuria Musculoskeletal Musculoskeletal: Reports none; Denies arthralgias, back pain, difficulty walking, extremity pain, muscle weakness or myalgias Integumentary Reports none; Denies abscess or rash Neurologic Neurologic: Reports none; Denies abnormal gait, confusion, focal weakness, frequent falls, headache(s), loss of vision, numbness, paresthesias, radicular pain, vertigo or weakness Psychiatric Psychiatric: Reports systems reviewed and no addt'l complaints, except as documented and none; Denies behavioral changes, confusion, difficulty concentrating, hallucinations, suicidal ideation, tactile hallucinations or visual hallucinations Endocrine Endocrinology: Denies none, cold intolerance, excessive sweating, fatigue or heat intolerance Hematologic/Lymphatic Hematologic/Lymphatic: Reports none; Denies anemia, easy bleeding or easy bru ising Allergic/Immunologic Allergic/Immunologic ED: Denies as per HPI, none, lip swelling, mouth swelling, throat swelling, tongue swelling or hives EXAM Physical Exam Const Vital Signs: 06/04/21 16:39 Temperature 98.1 F Temperature Source Oral Pulse Rate 57 L Respiratory Rate 16 Blood Pressure 155/69 H Blood Pressure Mean 97 Pulse Ox 99 Oxygen Delivery Method Room Air Positive well nourished and well developed General Appearance ED: well developed and NAD HEENT Reports TM's clear and moist mucous membranes normocephalic and atraumatic; Negative for trauma or tenderness Tympanic Membrane ED: Yes TM's clear Eyes PERRL and EOMs intact bilaterally General Eye ED: Negative for pale conjunctiva or scleral icterus Neck no lymphadenopathy, supple and no JVD General: Negative for tenderness Chest Wall inspection of chest normal and palpation of chest normal Chest: Negative for tenderness Resp normal respiratory effort and clear to auscultation bilaterally Effort and Inspection: Negative for respiratory distress or pain with movement Auscultation: Negative for rhonchi, wheezes or diminished lung sounds Cardio regular rate, regular rhythm, S1 normal heart sound, S2 normal heart sound and no murmurs Peripheral Pulses: pulses 2+ throughout GI normal to inspection, nondistended, normoactive bowel sounds, soft to palpation, non-distended and no masses GI Narrative: Mild diffuse tenderness over the right upper quadrant and right lower quadrant. There is no rebound, rigidity, or peritoneal signs. Back/Spine no CVA tenderness and no thoracic nor lumbar tenderness Extremity normal to inspection General Extremety ED: Negative for edema General Extremity: Negative for edema Neuro oriented x3, CN's II-XII intact bilaterally, no sensory deficits noted and gait normal Sensorium / Orientation: awake, alert, oriented to person, oriented to place and oriented to time Motor Exam: strength 5/5 throughout and strength abnormal Psych mental status grossly normal Skin no rashes or lesions noted and no wounds MDM MDM MDM Narrative Medical decision making narrative: IV line established on arrival. Patient was given normal saline 1 L bolus and Reglan 5 mg IV. Her nausea did improve. She was able to eat a yogurt. Lab work-up was normal. CT scan of the abdomen pelvis was unremarkable. EKG and troponin were unremarkable. At this point etiology of her nausea is unclear. I will write her prescription for Reglan and advised to follow-up with GI for follow-up. Patient to return if severe abdominal pain, vomiting, fever, or condition should worsen anyway. Lab Data Attestation: I reviewed the patient's lab results. Labs: Laboratory Results - last 24 hr 06/04/21 06/04/21 06/04/21 17:20 17:20 17:20 WBC 7.6 RBC 4.32 Hgb 12.0 Hct 37.5 MCV 86.8 MCH 27.8 MCHC 32.0 RDW Std Deviation 43.1 RDW Coeff of John 13.7 Plt Count 232 MPV 11.3 Immature Gran % (Auto) 0.100 Neut % (Auto) 48.0 Lymph % (Auto) 42.2 H [place] % (Auto) 6.5 Eos % (Auto) 2.8 Baso % (Auto) 0.4 Absolute Neuts (auto) 3.6 Absolute Lymphs (auto) 3.19 Nucleated RBC % 0 Sodium 140 Potassium 4.0 Chloride 109 H Carbon Dioxide 29.0 Anion Gap 2 L BUN 16 Creatinine 0.76 Estim Creat Clear Calc 37.24 Est GFR (MDRD) Af Amer 95 Est GFR (MDRD) Non-Af 79 BUN/Creatinine Ratio 21.0 H Glucose 113 H Lactic Acid 1.2 Calcium 8.3 L Total Bilirubin 0.30 AST 16 ALT 18 Alkaline Phosphatase 123 H Troponin I High Sens 14 Total Protein 6.4 Albumin 3.1 L Globulin 3.3 Albumin/Globulin Ratio 0.9 Lipase 58 L Urine Color Urine Clarity Urine pH Ur Specific [place] Urine Protein Urine Glucose (UA) Urine Ketones Urine Occult Blood Urine Nitrite Urine Bilirubin Urine Urobilinogen Ur Leukocyte Esterase Urine RBC Urine WBC Ur Squamous Epith Cells Urine Bacteria Urine Mucus 06/04/21 18:03 WBC RBC Hgb Hct MCV MCH MCHC RDW Std Deviation RDW Coeff of John Plt Count MPV Immature Gran % (Auto) Neut % (Auto) Lymph % (Auto) [place] % (Auto) Eos % (Auto) Baso % (Auto) Absolute Neuts (auto) Absolute Lymphs (auto) Nucleated RBC % Sodium Potassium Chloride Carbon Dioxide Anion Gap BUN Creatinine Estim Creat Clear Calc Est GFR (MDRD) Af Amer Est GFR (MDRD) Non-Af BUN/Creatinine Ratio Glucose Lactic Acid Calcium Total Bilirubin AST ALT Alkaline Phosphatase Troponin I High Sens Total Protein Albumin Globulin Albumin/Globulin Ratio Lipase Urine Color Yellow Urine Clarity Clear Urine pH 6.0 Ur Specific [place] 1.025 Urine Protein 15 H Urine Glucose (UA) Normal Urine Ketones 5 H Urine Occult Blood 10 H Urine Nitrite Negative Urine Bilirubin Negative Urine Urobilinogen 1 H Ur Leukocyte Esterase Negative Urine RBC 0-5 SEEN Urine WBC 0-5 SEEN Ur Squamous Epith Cells 0-5 SEEN Urine Bacteria 0 SEEN Urine Mucus 0 SEEN Radiography Diagnostic Testing: Clinical Impression(s) from Imaging Studies Abdomen/Pelvis CT 06/04/21 17:45 IMPRESSION: No acute findings in the abdomen or pelvis. Colonic fecal burden suggest clinical constipation. Electronically Signed: Rehan Albrecht MD at 18:29 EDT , EKG Initial EKG: Attestation: I personally reviewed and interpreted this EKG as follows: Comments: Sinus rhythm with a rate of [address] changes with inverted T waves anterior laterally Prior EKG tracings: available for review Prior: Unchanged Discharge Plan Triage Chief Complaint: Abd Pain ED Provider: Manpreet Whitten Dx/Rx/DC Orders Clinical Impression: Nausea, Abdominal pain Instructions: ED Abdominal Pain Unkn Cause Fem, ED Vomiting (Adult) Prescriptions: New metoclopramide HCl [Reglan] 5 mg tablet 5 mg PO DAILY PRN (Reason: nausea and vomiting) Qty: 10 RF: 0 No Action clopidogrel 75 mg tablet 75 mg PO QODAY RF: 0 albuterol sulfate 0.63 mg/3 mL solution for nebulization 0.63 mg INHALATION Q4H PRN (Reason: Congestion) RF: 0 aspirin 81 MG tablet 81 mg PO DAILY@0800 RF: 0 levothyroxine 75 MCG tablet 75 mcg PO DAILY RF: 0 citalopram 40 mg tablet 40 mg PO DAILY RF: 0 lisinopril 40 mg tablet 40 mg PO DAILY RF: 0 atenolol 50 MG tablet 25 mg PO DAILY RF: 0 atorvastatin 40 MG tablet 40 mg PO DAILY RF: 0 citalopram 20 MG tablet 20 mg PO LUNCH RF: 0 lorazepam 1 MG tablet 1 mg PO 4X/DAY RF: 0 bupropion HCl 100 MG tablet 100 mg PO DAILY RF: 0 pantoprazole 40 MG tablet 40 mg PO DAILY RF: 0 ondansetron 4 MG tablet 4 mg PO Q8H PRN PRN (Reason: Nausea) Qty: 10 RF: 0 donepezil 5 MG tablet 5 mg PO QHS RF: 0 fexofenadine 60 MG tablet 60 mg PO DAILY RF: 0 meloxicam 15 MG tablet 15 mg PO DAILY RF: 0 ketorolac 10 mg tablet 10 mg PO TID PRN (Reason: pain) Qty: 10 RF: 0 Primary Care Provider: Zully Rojas Referrals: Zully Rojas MD [Primary Care Provider] - Ag Bartlett DO [STAFF PHYSICIAN] - 3-5 Days Disposition Disposition: Home, Self Care
[2021-06-04] MEDS: 0.9% Normal Saline 1,000 ML 1000 ML IV (17:20)
[2021-06-04] MEDS: Metoclopramide 10 MG/2 ML Vial 5 MG IV (17:20)
[2021-06-04 17:41] LABS: Absolute Lymphocyte Count 3.19 X10^3/uL (0.83-4.51); Absolute Neutrophil Count 3.6 X10^3/uL (2.0-7.7); Basophil# 0.03 X10^3/uL; Basophil% 0.4 % (0-1); Eosinophil# 0.21 X10^3/uL; Eosinophils% 2.8 % (0-5); Hematocrit 37.5 % (37-47); Lymphocyte # 3.19 X10^3/ul (0.83-4.51); Lymphocyte % 42.2 % (19-41); Mean Corpuscular Hgb 27.8 pg (27.0-32.0); Mean Corpuscular Volume 86.8 fL (81-99); Mean Platelet Vol. 11.3 fl (6.2-12.0); Monocyte# 0.49 X10^3/uL; Monocyte% 6.5 % (0-10); NRBC Flagged by Analyzer 0 % (0-5); Neutrophil # 3.63 X10^3/uL (2.7-7.7); Platelet Count 232 K/mm3 (150-450); RBC Distribution Width CV 13.7 % (11.6-14.6); RBC Distribution Width SD 43.1 fl (35.1-43.9); Red Blood Count 4.32 M/mm3 (4.2-5.4); White Blood Count 7.6 K/mm3 (4.4-11.0)
--- NOTE | 2021-06-04 17:45 | CT_ITS ---
INDICATION: Pain EXAMINATION: CT ABDOMEN AND PELVIS WITHOUT CONTRAST - CT Abdomen And Pelvis W/O Contrast Injection TECHNIQUE: Helically acquired images were obtained of the abdomen and pelvis without oral or IV contrast. A radiation dose optimization technique was used for this scan. IV Contrast dosage and agent: None. Oral contrast: None. COMPARISON: 11/14/2020 FINDINGS: LOWER CHEST: Lung bases are clear. No cardiomegaly or pericardial effusion. LIVER: Homogeneous. No focal mass. GALLBLADDER AND BILIARY TREE: Cholecystectomy. No intra- or extrahepatic biliary ductal dilation. PANCREAS: No focal cystic or solid mass. SPLEEN: Normal size without focal cystic or solid mass. ADRENAL GLANDS: No nodules. KIDNEYS AND URETERS: Normal renal size and position. No hydronephrosis. PERITONEUM: No ascites or free air. BOWEL: No evidence of acute appendicitis. No stomach or bowel distension. Diffusely increased colonic fecal burden. LYMPH NODES: No enlarged mesenteric or retroperitoneal lymph nodes. VESSELS: Aorta is non-dilated. URINARY BLADDER: Unremarkable. REPRODUCTIVE ORGANS: No pelvic masses. ABDOMINAL WALL: No discrete abdominal or pelvic wall hernia. BONES: No acute or aggressive abnormality. CT/Abdomen/Pelvis without Cont IMPRESSION: No acute findings in the abdomen or pelvis. Colonic fecal burden suggest clinical constipation. Electronically Signed: Rehan Albrecht MD at 18:29 EDT Reading Location ID and State: [facility] / [place] Tel , Service support ,
[2021-06-04 17:55] LABS: ALB/GLOB Ratio 0.9 RATIO (0.9-2.4); AST(SGOT) 16 U/L (15-37); Alanine Aminotransfer ALT/SGPT 18 U/L (13-56); Albumin, Serum 3.1 g/dL (3.2-5.0); Alkaline Phosphatase 123 U/L (45-117); Anion Gap 2 (5-15); BUN 16 mg/dL (7-18); Calcium,Total 8.3 mg/dL (8.5-10.1); Chloride 109 mmol/L (98-107); Creatinine, Serum 0.76 mg/dL (0.55-1.02); EST Glomerular Filtration Rate 79 mL/min (>60); Est Glom Filt Rate - Afr Amer 95 mL/min (>60); Estimated Creatinine Clearance 37.24 ml/min; Globulin 3.3 g/dL (2.2-4.2); Glucose 113 mg/dL (74-106); Lipase 58 U/L (73-393); Protein, Total 6.4 g/dL (6.4-8.2); Sodium Level 140 mmol/L (136-145); Troponin-I HS 14 pg/mL (3.0-54.0)
[2021-06-04 18:09] LABS: Bacteria 0 SEEN /hpf (None Seen); Mucous, Urine 0 SEEN /hpf (<or=2+)
[2021-06-04 18:14] LABS: Lactic Acid 1.2 mmol/L (0.4-1.9)
[2021-06-04 18:15] LABS: Color, Urine Yellow (Yellow); Glucose, Dipstick Normal (Normal); Ketone-Dipstick 5 mg/dl (Negative); Leukocyte Esterase-Dipstick Negative /ul (Negative); Nitrite-Dipstick Negative (Negative); Occult Blood-Urine 10 /ul (Negative); Protein-Dipstick 15 mg/dl (Negative); Specific Gravity, Urine 1.025 (1.002-1.030); Urine Bilirubin Dipstick Negative (Negative); Urine Clarity Clear (Clear); Urine Urobilinogen 1 mg/dl (Normal)
[2021-06-04 18:32] LABS: Red Blood Cells-Urine 0-5 SEEN /hpf (0-5); Squamous Epithelial Cells - UA 0-5 SEEN /hpf (5-10); White Blood Cells 0-5 SEEN /hpf (0-5)
[2021-06-04 19:30] VITALS: BP 144/74; PULSE 60; RESP 18; O2SAT 95
--- NOTE | 2021-06-07 14:55 | CASEMGMT ---
[facility] ED Visit f/u note: ED visit: 06/03/21 Complaint: abd pain Call to pt. She states, I feel a little better. She was able to excelsior picker the rx Reglan and is taking as needed. She states has not needed any today so far. She is trying to adjust what food she eats to see if that is helpful. She has not scheduled a f/u appt w/PCP yet. She states she is having some car issues and her boyfriend is having some health issues, so it makes it more difficult to schedule appts. She does have kids, but states they work until later in the day. She states she will work on it. She denies having any questions or needs and thanked JOHN BYRNES for calling. Kashif VELASQUEZ RN, CM
== END 2021-06-04 19:31 | disposition home or self-care (01) ==
PROVIDERS: Emergency Provider Emergency Medicine; PCP Internal Medicine; Visit Provider Emergency Medicine
DX: R11.0 Nausea (principal); J44.9 Chronic obstructive pulmonary disease, unspecified; R10.9 Unspecified abdominal pain; I25.10 Atherosclerotic heart disease of native coronary artery without angina pectoris; E78.5 Hyperlipidemia, unspecified; F17.210 Nicotine dependence, cigarettes, uncomplicated; I10 Essential (primary) hypertension; G47.33 Obstructive sleep apnea (adult) (pediatric); Z86.73 Personal history of transient ischemic attack (TIA), and cerebral infarction without residual deficits; Z79.82 Long term (current) use of aspirin; Z79.899 Other long term (current) drug therapy; Z95.1 Presence of aortocoronary bypass graft; Z95.5 Presence of coronary angioplasty implant and graft
CPT/HCPCS: 74176; 80053; 81001; 83605; 83690; 84484; 85025; 93005; 96361; 96374; 99285; J7030

== ENCOUNTER 2021-07-28 17:10 | Emergency (ER) | payer MEDICARE, SELFPAY ==
[2017-12-28 13:50] VITALS: BMI 29.2
[2021-07-28 17:12] VITALS: BP 129/51; PULSE 68; RESP 18; TEMP 36.6; O2SAT 98; BMI 29.2
--- NOTE | 2021-07-28 17:30 | RAD_ITS ---
STUDY: X-RAY - LUMBAR SPINE REASON FOR EXAM: Female, 76 years old. pain TECHNIQUE: 3 view(s) of the lumbar spine were obtained. COMPARISON: CT lumbar spine 10/27/2019. FINDINGS: Normal lumbar lordosis. Mild thoracolumbar levocurvature, may be positional. No demonstrated fracture. 5 mm anterolisthesis at L3-4. 6 mm anterolisthesis at L4-5. Normal vertebral bodies and endplates. Disc space narrowing at L5-S1 with vacuum phenomenon. Facet hypertrophy at L3-4 and L4-5. The soft tissue structures are unremarkable. RAD/Lumbar Spine 2 or 3 Views IMPRESSION: 1. No demonstrated fracture. 2. Mild anterolisthesis at L3-4 and L4-5. 3. Multilevel degenerative changes. Electronically Signed: Bessie Singh MD at 18:59 EDT Reading Location ID and State: [id number] / Tel , Service support ,
[2021-07-28] MEDS: diazePAM 2 MG Tablet PO (17:36)
--- NOTE | 2021-07-28 19:07 | EDS_ITS ---
HPI History of Present Illness Chief Complaint: Back Informant: patient Onset/Context/Timing Onset: Weeks Context: Gradual Onset Timing: Continuous Location: Low back Maximum Severity: Severe Worsened by: use Associated Symptoms Associated Symptoms: almost fell due to pain, pain radiates down both legs Narrative Narrative: Patient reports bilateral low back pain. This came on gradually spontaneously about a month ago. Nothing brought it on. Worse with use. She says she almost fell and that the pain radiates down into her legs but she denies any muscle weakness or numbness. Denies any bowel or bladder changes. Denies any new abdominal pains. Denies any back surgery, trauma, fevers, or any other associated symptoms. [facility] Medical History Anxiety and depression Atherosclerosis of coronary artery of [place] heart with angina pectoris Back pain Benzodiazepine dependence COPD (chronic obstructive pulmonary disease) Essential (primary) hypertension H/O: pneumonia Hyperlipidemia Hypothyroidism Nicotine dependence Non-rheumatic tricuspid valve insufficiency Obstructive sleep apnea Secondary pulmonary arterial hypertension TIA (transient ischemic attack) Home Medications aspirin 81 mg tablet,delayed release 81 mg PO DAILY@0800 heart health 09/06/17 [History Last Taken 10/03/18 08:00] levothyroxine 75 mcg tablet 75 mcg PO DAILY thyroid 09/06/17 [History Last Taken 10/03/18 07:00] citalopram 40 mg tablet 40 mg PO DAILY depression 12/18/17 [History Last Taken 10/03/18 08:00] clopidogrel 75 mg tablet 75 mg PO QODAY antiplatelet 12/18/17 [History Last Taken 01/16/19] lisinopril 40 mg tablet 40 mg PO DAILY blood pressure 12/18/17 [History Last Taken 10/03/18 08:00] atenolol 50 mg tablet 25 mg PO DAILY heart rate 01/05/18 [History Last Taken 10/03/18 08:00] atorvastatin 40 mg tablet 40 mg PO DAILY cholesterol 01/05/18 [History Last Taken 10/02/18 22:00] citalopram 20 mg tablet 20 mg PO LUNCH depression 06/27/18 [History Last Taken 10/03/18 12:00] lorazepam 1 mg tablet 1 mg PO 4X/DAY anxiety 06/28/18 [History Last Taken 10/03/18 12:00] albuterol sulfate 0.63 mg/3 mL solution for nebulization 0.63 mg inhalation Q4H PRN Congestion 07/14/18 [History Last Taken Unknown] bupropion HCl 100 mg tablet 100 mg PO DAILY 01/16/19 [History Last Taken Unknown] ondansetron 4 mg disintegrating tablet 4 mg PO Q8H PRN PRN Nausea #10 tabs 01/16/19 [Rx Last Taken Unknown] pantoprazole 40 mg tablet,delayed release 40 mg PO DAILY 01/16/19 [History Last Taken Unknown] donepezil 5 mg tablet 5 mg PO QHS 10/10/19 [History Last Taken Unknown] fexofenadine 60 mg tablet 60 mg PO DAILY 10/10/19 [History Last Taken Unknown] meloxicam 15 mg tablet 15 mg PO DAILY 10/10/19 [History Last Taken Unknown] ketorolac 10 mg tablet 10 mg PO TID PRN pain #10 tabs 10/19/20 [Rx Last Taken Unknown] metoclopramide HCl 5 mg tablet (Reglan) 5 mg PO DAILY PRN nausea and vomiting #10 tabs 06/04/21 [Rx Last Taken Unknown] Allergy/AdvReac Type Severity Reaction Status Date / Time morphine Allergy PT UNSURE Verified 07/28/21 17:12 Penicillins Allergy Hives Verified 07/28/21 17:12 tramadol HCl [From Ultram] Allergy PT UNSURE Verified 07/28/21 17:12 bupropion [From Wellbutrin] AdvReac hallucinati Verified 07/28/21 17:12 ons Surgical History History of appendectomy History of coronary artery bypass graft x 3 History of coronary artery stent placement (12/28/17) History of left heart catheterization (12/28/17) Hx of cholecystectomy Social History household members: other Smoking Status: Current every day smoker tobacco type: cigarettes details: Patient denies alcohol use substance use type: does not use ROS ROS ED Constitutional Constitutional ED: Denies chills or fever(s) Eyes Eyes: Denies blurry vision ENT ENT ED: Denies ear pain Cardiovascular Cardiovascular: Denies chest pain Respiratory/Chest Respiratory/Chest: Denies cough Gastrointestinal Gastrointestinal: Denies abdominal pain Genitourinary Genitourinary ED: Denies dysuria Musculoskeletal Musculoskeletal: Reports back pain; Denies arthralgias or myalgias Integumentary Denies abscess Neurologic Neurologic: Denies headache(s), paresthesias or weakness Psychiatric Psychiatric: Denies anxiety Endocrine Endocrinology: Denies cold intolerance Allergic/Immunologic Allergic/Immunologic ED: Denies mouth swelling EXAM Physical Exam Const Vital Signs: 07/28/21 17:12 Temperature 98 F Temperature Source Temporal Pulse Rate 68 Respiratory Rate 18 Blood Pressure 129/51 H Blood Pressure Mean 77 Pulse Ox 98 Oxygen Delivery Method Room Air Positive well nourished and well developed General Appearance ED: well developed HEENT Negative for trauma Eyes EOMs intact bilaterally Resp normal respiratory effort Cardio regular rate GI normal to inspection, nondistended, normoactive bowel sounds and no masses; Negative for non-tender, non-distended or hepatosplenomegaly Back/Spine Back/Spine Narrative: Diffuse low back pain over the spine and paraspinal muscles bilaterally with light touch Neuro oriented x3, CN's II-XII intact bilaterally and no sensory deficits noted Sensorium / Orientation: alert and orientation impaired Sensory Exam: No sensory level loss detected Motor Exam: strength 5/5 throughout; Negative for general weakness or strength abnormal Psych mental status grossly normal Skin no rashes or lesions noted MDM MDM MDM Narrative Medical decision making narrative: Patient had no red flag features. I did check an x-ray because the pain had been going on for about a month. X-rays of the low back were reviewed by the radiologist and myself. There is no acute abnormality. No fracture. Patient was treated with Valium while awaiting results. She also received Motrin for pain. She uses a cane. I initially prescribed a walker. She said that the walker does not help. She has a motorized wheelchair. I advised her to follow-up with her PCP for further outpatient care. Return for any new or worsening issues. Impression #1 myofascial low back pain Radiography Chest X-Ray - ED: Read by ED Physician and Read by Radiologist Diagnostic Testing: Clinical Impression(s) from Imaging Studies Lumbar Spine X-Ray 07/28/21 17:30 IMPRESSION: 1. No demonstrated fracture. 2. Mild anterolisthesis at L3-4 and L4-5. 3. Multilevel degenerative changes. Electronically Signed: Bessie Singh MD at 18:59 EDT , Discharge Plan Triage Chief Complaint: Back ED Provider: Humberto Andrade Dx/Rx/DC Orders Instructions: ED Back Pain (Acute or Chronic) Prescriptions: No Action clopidogrel 75 mg tablet 75 mg PO QODAY Label Comments: 75 mg PO every other day; Rx Instructions: 75 mg PO every other day; albuterol sulfate 0.63 mg/3 mL solution for nebulization 0.63 mg INHALATION Q4H PRN (Reason: Congestion) aspirin 81 MG tablet 81 mg PO DAILY@0800 levothyroxine 75 MCG tablet 75 mcg PO DAILY citalopram 40 mg tablet 40 mg PO DAILY Rx Instructions: 40 mg PO 1 in am and 0.5 at noon; lisinopril 40 mg tablet 40 mg PO DAILY atenolol 50 MG tablet 25 mg PO DAILY atorvastatin 40 MG tablet 40 mg PO DAILY citalopram 20 MG tablet 20 mg PO LUNCH lorazepam 1 MG tablet 1 mg PO 4X/DAY Rx Instructions: takes at 0800, 1200, 1600, 2000 bupropion HCl 100 MG tablet 100 mg PO DAILY pantoprazole 40 MG tablet 40 mg PO DAILY ondansetron 4 MG tablet 4 mg PO Q8H PRN PRN (Reason: Nausea) Qty: 10 0RF donepezil 5 MG tablet 5 mg PO QHS fexofenadine 60 MG tablet 60 mg PO DAILY meloxicam 15 MG tablet 15 mg PO DAILY ketorolac 10 mg tablet 10 mg PO TID PRN (Reason: pain) Qty: 10 0RF metoclopramide HCl [Reglan] 5 mg tablet 5 mg PO DAILY PRN (Reason: nausea and vomiting) Qty: 10 0RF Primary Care Provider: Zully Rojas Referrals: Zully Rojas MD [Primary Care Provider] - Disposition Disposition: Home, Self Care
--- NOTE | 2021-07-28 19:08 | ED.RN ---
Dr. Andrade gave verbal order to discontinue walker order.
[2021-07-28] MEDS: Ibuprofen 600 MG Tablet PO (19:10)
--- NOTE | 2021-07-28 19:21 | ED.RN ---
Pt. sleepy after Valium. Educated pt. she needed to call for a ride or get a cab. Pt spoke to a friend who called for a cab to pick her up.
== END 2021-07-28 19:20 | disposition home or self-care (01) ==
PROVIDERS: Emergency Provider Emergency Medicine; PCP Internal Medicine; Visit Provider Emergency Medicine
DX: M54.50 Low back pain, unspecified (principal); I25.10 Atherosclerotic heart disease of native coronary artery without angina pectoris; F17.210 Nicotine dependence, cigarettes, uncomplicated; G47.33 Obstructive sleep apnea (adult) (pediatric); Z86.73 Personal history of transient ischemic attack (TIA), and cerebral infarction without residual deficits; Z95.1 Presence of aortocoronary bypass graft
CPT/HCPCS: 72100; 99283

== ENCOUNTER 2021-08-02 17:15 | Emergency (ER) | payer MEDICARE, SELFPAY ==
[2017-12-28 13:50] VITALS: BMI 29.2
[2021-08-02 17:16] VITALS: BP 170/126; PULSE 65; RESP 14; TEMP 37; O2SAT 97; BMI 33.0
--- NOTE | 2021-08-02 17:24 | CT_ITS ---
INDICATION: trauma EXAMINATION: CT BRAIN - CT Head or Brain W/O Contrast Injection TECHNIQUE: Multiple axial images were obtained of the head without intravenous contrast. A radiation dose optimization technique was used for this scan. IV Contrast dosage and agent: None. RADIATION DOSAGE (If Supplied By Facility): CTDIvol = ( 44.99 ) mGy, DLP = ( 796.11 ) mGycm COMPARISON: None FINDINGS: HEMISPHERES: 1. The cerebral parenchyma, ventricular system, subarachnoid spaces have normal configuration and density. There is a normal gyral pattern. There is normal wesley/white differentiation. No midline shift.. 2. Diffuse involutional change and extensive chronic microvascular deep white matter disease is present. There is a focal area of lacunar infarct within the RIGHT internal capsule, extending into the anterior lenticular nucleus. Minimal remote lacunar infarct present in the caudate head. 3. No intraparenchymal mass, hemorrhage, or acute territorial infarct. CEREBELLUM - BRAINSTEM: The cerebellum, brainstem, basilar and suprasellar cisterns have normal appearance. No Chiari malformation. PITUITARY: Infundibulum and pituitary have normal configuration. Midline structures appear normal. CSF SPACES: Appropriate for age. No hydrocephalus. Basal cisterns are patent. VESSELS: 1. Moderate calcifications throughout the cavernous carotid vessels bilaterally. 2. No hyperdense vascular signs noted.. ORBITS AND PARANASAL SINUSES: 1. Normal appearance of the bony orbits. Normal appearance of the globes and retrobulbar soft tissues.. 2. Chronic appearing ethmoid and maxillary sinus mucosal thickening BONY ELEMENTS: Bony elements of the cranial vault, facial skeleton and skull base have normal appearance. SCALP AND SOFT TISSUES: Normal appearance of the soft tissues of the scalp and the visualized face OTHER: None ASPECTS Score for Acute Strokes: 10 CT/Brain/Head without Contrast IMPRESSION: 1. Diffuse involutional change, chronic deep white matter disease and area of remote lacunar infarct in the RIGHT internal capsule and lenticular nucleus. 2. No intracranial mass, hemorrhage or acute territorial infarct. 3. No radiographically significant disease. Electronically Signed: Murtaza Caicedo MD at 18:58 EDT ,
--- NOTE | 2021-08-02 17:24 | CT_ITS ---
INDICATION: trauma EXAMINATION: CT CERVICAL SPINE - CT Spine Cervical W/O Contrast Injection TECHNIQUE: Helically acquired images were obtained of the cervical spine. 2D reformatted images were reviewed. A radiation dose optimization technique was used for this scan. IV Contrast dosage and agent: None. COMPARISON: None. FINDINGS: VERTEBRAE: Vertebral body height is maintained, there is straightening of cervical lordosis. Multilevel disc changes are present without evidence of fracture or subluxation. Odontoid process and prevertebral soft tissue planes are normal. DISCS and SPINAL CANAL: Disc space narrowing at C4-5 C5-6 and C6-7. Foraminal narrowing at these levels also noted contributed by uncovertebral joint and facet hypertrophic changes. No acute disc herniation. No critical stenosis. NECK SOFT TISSUES: No prevertebral soft tissue swelling. There is no cervical adenopathy. LUNG APICES: Clear. CT/Spine Cervical without Contras IMPRESSION: 1. No evidence of acute cervical spinal fracture or spondylolisthesis. No acutely acquired canal stenosis. 2. Diffuse cervical spondylosis. Multilevel chronic foraminal narrowing also noted. Electronically Signed: Murtaza Caicedo MD at 19:01 EDT ,
--- NOTE | 2021-08-02 17:24 | RAD_ITS ---
STUDY: X-RAY - LEFT ELBOW REASON FOR EXAM: Female, 76 years old. Trauma TECHNIQUE: 2 view(s) of the LEFT elbow. COMPARISON: None. FINDINGS: Limitation: Moderate limitation current examination due to patient''s inability to comply with positioning. There is normal bony alignment, no fracture or dislocation noted. No destructive bony process. The soft tissue structures are unremarkable. RAD/Elbow 2 Views IMPRESSION: 1. Mildly limited examination due to positioning noncompliance. 2. No acute fracture or malalignment noted. Electronically Signed: Murtaza Caicedo MD at 18:31 EDT ,
--- NOTE | 2021-08-02 17:24 | RAD_ITS ---
INDICATION: trauma EXAMINATION/TECHNIQUE: X-RAY - LEFT XR Shoulder Min 2 Views 3 VIEWS COMPARISON: None. FINDINGS: SOFT TISSUES: No soft tissue swelling or gas. No radiopaque foreign body. BONES/JOINTS: Mildly impacted minimally angulated humeral neck fracture. No dislocation. No other fractures noted. There is lies rib cage is intact. RAD/Shoulder min 2 Views IMPRESSION: 1. Impacted minimally angulated humeral neck fracture. No dislocation. Electronically Signed: Murtaza Caicedo MD at 18:34 EDT ,
[2021-08-02] MEDS: Ondansetron 4 MG/2 ML Vial IV (17:31)
[2021-08-02] MEDS: HYDROmorphone 0.5 MG/0.5 ML SYRINGE IV (17:32)
--- NOTE | 2021-08-02 17:37 | EX.ED.UPPERE ---
HPI History of Present Illness Chief Complaint: Upper Extremity Injury Narrative Narrative: Patient presents with left shoulder pain after a mechanical fall at home she was going up her ramp to her home. She thinks she may have hit her head but no loss of consciousness, she has some slight neck pain but it improved. She does not have any headache her primary concern now is her left shoulder pain. No back injury she has some buttock pain but no pelvis or hip pain. [facility] Medical History Anxiety and depression Atherosclerosis of coronary artery of [place] heart with angina pectoris Back pain Benzodiazepine dependence COPD (chronic obstructive pulmonary disease) Essential (primary) hypertension H/O: pneumonia Hyperlipidemia Hypothyroidism Nicotine dependence Non-rheumatic tricuspid valve insufficiency Obstructive sleep apnea Secondary pulmonary arterial hypertension TIA (transient ischemic attack) Home Medications aspirin 81 mg tablet,delayed release 81 mg PO DAILY@0800 heart health 09/06/17 [History Last Taken 10/03/18 08:00] levothyroxine 75 mcg tablet 75 mcg PO DAILY thyroid 09/06/17 [History Last Taken 10/03/18 07:00] citalopram 40 mg tablet 40 mg PO DAILY depression 12/18/17 [History Last Taken 10/03/18 08:00] clopidogrel 75 mg tablet 75 mg PO QODAY antiplatelet 12/18/17 [History Last Taken 01/16/19] lisinopril 40 mg tablet 40 mg PO DAILY blood pressure 12/18/17 [History Last Taken 10/03/18 08:00] atenolol 50 mg tablet 25 mg PO DAILY heart rate 01/05/18 [History Last Taken 10/03/18 08:00] atorvastatin 40 mg tablet 40 mg PO DAILY cholesterol 01/05/18 [History Last Taken 10/02/18 22:00] citalopram 20 mg tablet 20 mg PO LUNCH depression 06/27/18 [History Last Taken 10/03/18 12:00] lorazepam 1 mg tablet 1 mg PO 4X/DAY anxiety 06/28/18 [History Last Taken 10/03/18 12:00] albuterol sulfate 0.63 mg/3 mL solution for nebulization 0.63 mg inhalation Q4H PRN Congestion 07/14/18 [History Last Taken Unknown] bupropion HCl 100 mg tablet 100 mg PO DAILY 01/16/19 [History Last Taken Unknown] ondansetron 4 mg disintegrating tablet 4 mg PO Q8H PRN PRN Nausea #10 tabs 01/16/19 [Rx Last Taken Unknown] pantoprazole 40 mg tablet,delayed release 40 mg PO DAILY 01/16/19 [History Last Taken Unknown] donepezil 5 mg tablet 5 mg PO QHS 10/10/19 [History Last Taken Unknown] fexofenadine 60 mg tablet 60 mg PO DAILY 10/10/19 [History Last Taken Unknown] meloxicam 15 mg tablet 15 mg PO DAILY 10/10/19 [History Last Taken Unknown] ketorolac 10 mg tablet 10 mg PO TID PRN pain #10 tabs 10/19/20 [Rx Last Taken Unknown] metoclopramide HCl 5 mg tablet (Reglan) 5 mg PO DAILY PRN nausea and vomiting #10 tabs 06/04/21 [Rx Last Taken Unknown] oxycodone-acetaminophen 5 mg-325 mg tablet (Percocet) 1 tab PO Q6H 3 days #12 tabs 08/02/21 [Rx Last Taken Unknown] Allergy/AdvReac Type Severity Reaction Status Date / Time morphine Allergy PT UNSURE Verified 08/02/21 17:23 Penicillins Allergy Hives Verified 08/02/21 17:23 tramadol HCl [From Ultram] Allergy PT UNSURE Verified 08/02/21 17:23 bupropion [From Wellbutrin] AdvReac hallucinati Verified 08/02/21 17:23 ons Surgical History History of appendectomy History of coronary artery bypass graft x 3 History of coronary artery stent placement (12/28/17) History of left heart catheterization (12/28/17) Hx of cholecystectomy Social History household members: other Smoking Status: Current every day smoker tobacco type: cigarettes details: Patient denies alcohol use substance use type: does not use ROS ROS ED ROS Narrative Social: Lives alone noncontributory Medications: Reviewed Past medical history: Reviewed Review of systems General: Head injury but no loss of consciousness HEENT: No facial injury Neck: Neck pain improving Cardiovascular: Patient denies any chest pain or palpitations Chest wall: No chest wall contusions Respiratory: There is no shortness of breath GI: There is no nausea vomiting diarrhea or abdominal pain, no abdominal wall contusions Skin: No lacerations or abrasions Neurological: Patient has no memory loss, confusion, or any focal weakness Psychiatric: No recent behavioral changes Back: No back pain Musculoskeletal: Left shoulder injury All other systems are reviewed and normal EXAM Physical Exam Narrative Exam Narrative: Physical exam Vitals reviewed General: Patient appears uncomfortable HEENT: No facial injury Head: No head injury Eyes: Extraocular movements intact Neck: No C-spine tenderness with full range of motion, most of her tenderness is left paraspinal region Heart: Regular rate normal pulses Chest wall: No chest wall pain Lungs: Clear lungs bilaterally with normal inspiration and expiration without tachypnea GI: Abdomen is soft and nontender there is no mass no guarding no abdominal wall contusion : Stable pelvis, I cannot appreciate any overt or left-sided buttock pain, she certainly has no contusion in that region. Musculoskeletal: Left shoulder has significant pain there is edema but no obvious deformity. No AC joint tenderness its mostly proximal humeral region. Moves all other extremities without any signs of trauma Skin: No abrasions or laceration Neurological: Patient is alert and oriented with no focal deficits Const Vital Signs: 08/02/21 17:16 Temperature 98.6 F Temperature Source Temporal Pulse Rate 65 Respiratory Rate 14 Blood Pressure 170/126 H Blood Pressure Mean 140 Pulse Ox 97 Oxygen Delivery Method Room Air MDM MDM MDM Narrative Medical decision making narrative: Patient work-up is significant for a proximal humerus fracture, she was placed in a sling, she was able to ambulate around the ED her pain is controlled she wants to be discharged I believe this is reasonable I will follow-up with orthopedics. If anything changes patient is to return to the ED. Radiography Diagnostic Testing: Left shoulder x-ray read by me shows an impacted proximal humerus fracture Pelvis x-ray read by me is normal no fracture Left elbow read by me is normal without any fracture Discharge Plan Triage Chief Complaint: Upper Extremity Injury ED Provider: Kingsley Bowers Dx/Rx/DC Orders Clinical Impression: Fall, Fracture of proximal end of humerus Instructions: ED Fracture, Shoulder Prescriptions: New oxycodone-acetaminophen [Percocet] 5-325 mg tablet 1 tab PO Q6H 3 Days Qty: 12 0RF No Action clopidogrel 75 mg tablet 75 mg PO QODAY Label Comments: 75 mg PO every other day; Rx Instructions: 75 mg PO every other day; albuterol sulfate 0.63 mg/3 mL solution for nebulization 0.63 mg INHALATION Q4H PRN (Reason: Congestion) aspirin 81 MG tablet 81 mg PO DAILY@0800 levothyroxine 75 MCG tablet 75 mcg PO DAILY citalopram 40 mg tablet 40 mg PO DAILY Rx Instructions: 40 mg PO 1 in am and 0.5 at noon; lisinopril 40 mg tablet 40 mg PO DAILY atenolol 50 MG tablet 25 mg PO DAILY atorvastatin 40 MG tablet 40 mg PO DAILY citalopram 20 MG tablet 20 mg PO LUNCH lorazepam 1 MG tablet 1 mg PO 4X/DAY Rx Instructions: takes at 0800, 1200, 1600, 2000 bupropion HCl 100 MG tablet 100 mg PO DAILY pantoprazole 40 MG tablet 40 mg PO DAILY ondansetron 4 MG tablet 4 mg PO Q8H PRN PRN (Reason: Nausea) Qty: 10 0RF donepezil 5 MG tablet 5 mg PO QHS fexofenadine 60 MG tablet 60 mg PO DAILY meloxicam 15 MG tablet 15 mg PO DAILY ketorolac 10 mg tablet 10 mg PO TID PRN (Reason: pain) Qty: 10 0RF metoclopramide HCl [Reglan] 5 mg tablet 5 mg PO DAILY PRN (Reason: nausea and vomiting) Qty: 10 0RF Primary Care Provider: Zully Rojas Referrals: Zully Rojas MD [Primary Care Provider] - Lee Elizondo MD [STAFF PHYSICIAN] - 3-5 Days Disposition Disposition: Home, Self Care
--- NOTE | 2021-08-02 17:40 | RAD_ITS ---
INDICATION: trauma EXAMINATION/TECHNIQUE: X-RAY - XR Pelvis 1 or 2 Views COMPARISON: None. FINDINGS: PELVIC BONES: No displaced fracture, destructive or sclerotic lesions. Note that overlapping bowel shadows may however obscure fine detail. Sacroiliac joints are unremarkable. No widening of the pubic symphysis. HIPS: Joint spaces are maintained. There are degenerative subchondral changes with sclerosis and cystic changes involving the LEFT femoral head and acetabular roof. Mild osteophyte formation. No displaced fracture seen in this frontal view. SOFT TISSUES: No soft tissue swelling or gas. RAD/Pelvis 1 or 2 Views IMPRESSION: 1. Degenerative change involving the LEFT hip with subchondral sclerosis and degenerative cystic changes in the femoral head. 2. Joint space maintained. No fractures or malalignment. Electronically Signed: Murtaza Caicedo MD at 18:33 EDT ,
[2021-08-02 18:49] VITALS: BP 189/66; PULSE 68; RESP 16; O2SAT 93
[2021-08-02 19:08] VITALS: O2SAT 98
--- NOTE | 2021-08-02 19:12 | ED.RN ---
PT. UP AND AMBULATED WITH NO DIFFICULTIES.
[2021-08-02] MEDS: oxyCODONE 5 MG Tablet PO (19:23)
== END 2021-08-02 19:27 | disposition home or self-care (01) ==
PROVIDERS: Emergency Provider Emergency Medicine; PCP Internal Medicine; Visit Provider Emergency Medicine
DX: S42.202A Unspecified fracture of upper end of left humerus, initial encounter for closed fracture (principal); I25.10 Atherosclerotic heart disease of native coronary artery without angina pectoris; F17.210 Nicotine dependence, cigarettes, uncomplicated; G47.33 Obstructive sleep apnea (adult) (pediatric); Z86.73 Personal history of transient ischemic attack (TIA), and cerebral infarction without residual deficits; Z95.1 Presence of aortocoronary bypass graft; Z95.5 Presence of coronary angioplasty implant and graft; W10.2XXA Fall (on)(from) incline, initial encounter
CPT/HCPCS: 70450; 72125; 72170; 73030; 73070; 96374; 96375; 99285; A4216; J2405

== ENCOUNTER 2021-08-07 12:12 | Emergency (ER) | payer MEDICARE, SELFPAY ==
[2017-12-28 13:50] VITALS: BMI 29.2
[2021-08-07 12:13] VITALS: BP 148/67; PULSE 68; RESP 16; TEMP 36.3; O2SAT 96; BMI 28.3
[2021-08-07 12:40] VITALS: O2SAT 96
--- NOTE | 2021-08-07 12:50 | RAD_ITS ---
STUDY: X-RAY - LEFT WRIST REASON FOR EXAM: Female, 76 years old. Pain following a fall. TECHNIQUE: 3 view(s) of the wrist were obtained. COMPARISON: None. FINDINGS: Normal visualized distal radius and ulna. Normal radiocarpal articulation. Normal distal radioulnar articulation. Normal carpal bones. Normal carpal articulations. Normal carpometacarpal articulation of the thumb. Normal second through fifth carpometacarpal articulations. Normal visualized metacarpal bones. Soft tissue swelling. RAD/Wrist min 3 Views IMPRESSION: Soft tissue swelling. Electronically Signed: Gonzales Dowell MD at 13:19 EDT ,
--- NOTE | 2021-08-07 12:51 | EX.ED.GENINJ ---
HPI History of Present Illness Chief Complaint: Fall Detail of Chief Complaint: Patient presents after having a fall 5 days ago for reevaluation Informant: patient Narrative Narrative: Patient presents to the emergency department stating that she fell 5 days ago and injured her left arm. Patient had x-rays at that time and showed acute fracture of the proximal humerus and was placed in a sling. Patient apparently had a CT scan of her brain and neck as well which were unremarkable. Patient complaining of left wrist pain and and bruising to the anterior chest wall. She denies any chest pain or shortness of breath out of the ordinary. Her primary care physician told her to come back and get reevaluated. Patient describes the fall she fell on a ramp and 6 bottles of root beer in plastic containers had fallen and landed on her chest as well. Patient is on Plavix. Patient has history of coronary artery disease. [facility] Medical History Anxiety and depression Atherosclerosis of coronary artery of [place] heart with angina pectoris Back pain Benzodiazepine dependence COPD (chronic obstructive pulmonary disease) Essential (primary) hypertension H/O: pneumonia Hyperlipidemia Hypothyroidism Nicotine dependence Non-rheumatic tricuspid valve insufficiency Obstructive sleep apnea Secondary pulmonary arterial hypertension TIA (transient ischemic attack) Home Medications aspirin 81 mg tablet,delayed release 81 mg PO DAILY@0800 heart health 09/06/17 [History Last Taken 10/03/18 08:00] levothyroxine 75 mcg tablet 75 mcg PO DAILY thyroid 09/06/17 [History Last Taken 10/03/18 07:00] citalopram 40 mg tablet 40 mg PO DAILY depression 12/18/17 [History Last Taken 10/03/18 08:00] clopidogrel 75 mg tablet 75 mg PO QODAY antiplatelet 12/18/17 [History Last Taken 01/16/19] lisinopril 40 mg tablet 40 mg PO DAILY blood pressure 12/18/17 [History Last Taken 10/03/18 08:00] atenolol 50 mg tablet 25 mg PO DAILY heart rate 01/05/18 [History Last Taken 10/03/18 08:00] atorvastatin 40 mg tablet 40 mg PO DAILY cholesterol 01/05/18 [History Last Taken 10/02/18 22:00] citalopram 20 mg tablet 20 mg PO LUNCH depression 06/27/18 [History Last Taken 10/03/18 12:00] lorazepam 1 mg tablet 1 mg PO 4X/DAY anxiety 06/28/18 [History Last Taken 10/03/18 12:00] albuterol sulfate 0.63 mg/3 mL solution for nebulization 0.63 mg inhalation Q4H PRN Congestion 07/14/18 [History Last Taken Unknown] bupropion HCl 100 mg tablet 100 mg PO DAILY 01/16/19 [History Last Taken Unknown] ondansetron 4 mg disintegrating tablet 4 mg PO Q8H PRN PRN Nausea #10 tabs 01/16/19 [Rx Last Taken Unknown] pantoprazole 40 mg tablet,delayed release 40 mg PO DAILY 01/16/19 [History Last Taken Unknown] donepezil 5 mg tablet 5 mg PO QHS 10/10/19 [History Last Taken Unknown] fexofenadine 60 mg tablet 60 mg PO DAILY 10/10/19 [History Last Taken Unknown] meloxicam 15 mg tablet 15 mg PO DAILY 10/10/19 [History Last Taken Unknown] ketorolac 10 mg tablet 10 mg PO TID PRN pain #10 tabs 10/19/20 [Rx Last Taken Unknown] metoclopramide HCl 5 mg tablet (Reglan) 5 mg PO DAILY PRN nausea and vomiting #10 tabs 06/04/21 [Rx Last Taken Unknown] oxycodone-acetaminophen 5 mg-325 mg tablet (Percocet) 1 tab PO Q6H 3 days #12 tabs 08/02/21 [Rx Last Taken Unknown] hydrocodone-acetaminophen 5-325mg 5mg-325mg 1 tab PO Q4H PRN PRN Pain 2 days #10 TABLETS 08/07/21 [Rx Last Taken Unknown] Allergy/AdvReac Type Severity Reaction Status Date / Time morphine Allergy PT UNSURE Verified 08/07/21 12:13 Penicillins Allergy Hives Verified 08/07/21 12:13 tramadol HCl [From Ultram] Allergy PT UNSURE Verified 08/07/21 12:13 bupropion [From Wellbutrin] AdvReac hallucinati Verified 08/07/21 12:13 ons Surgical History History of appendectomy History of coronary artery bypass graft x 3 History of coronary artery stent placement (12/28/17) History of left heart catheterization (12/28/17) Hx of cholecystectomy Social History household members: other Smoking Status: Current every day smoker tobacco type: cigarettes details: Patient denies alcohol use substance use type: does not use ROS ROS ED Review of Systems ROS Unobtainable: other Constitutional Constitutional ED: Reports lethargy; Denies chills, fever(s), sweats or weight loss Eyes Eyes: Denies blurry vision, change in vision or diplopia ENT ENT ED: Denies rhinorrhea or sore throat Cardiovascular Cardiovascular: Reports chest pain and racing heartbeat; Denies orthopnea Respiratory/Chest Respiratory/Chest: Reports dyspnea and dyspnea on exertion; Denies cough, orthopnea or sputum Gastrointestinal Gastrointestinal: Denies abdominal pain, diarrhea, nausea or vomiting Genitourinary Genitourinary ED: Denies dysuria, hematuria or urinary frequency Musculoskeletal Musculoskeletal: Reports other Details: Left arm and wrist pain ; Denies arthralgias, back pain, myalgias or neck pain Integumentary Reports other Details: Bruising to anterior chest and breasts ; Denies abscess, Abrasions or rash Neurologic Neurologic: Denies headache(s) or weakness Psychiatric Psychiatric: Denies anxiety, depression or suicidal thoughts Endocrine Endocrinology: Denies polydipsia, polyphagia or polyuria Hematologic/Lymphatic Hematologic/Lymphatic: Denies easy bleeding, easy bruising or lymphadenopathy Allergic/Immunologic Allergic/Immunologic ED: Denies mouth swelling, tongue swelling or urticaria EXAM Physical Exam Const Vital Signs: 08/07/21 12:13 08/07/21 12:40 Temperature 97.4 F L Temperature Source Temporal Pulse Rate 68 Respiratory Rate 16 Respiratory Effort Normal Non-Labored Respiratory Depth Normal Respiratory Pattern Normal Blood Pressure 148/67 H Blood Pressure Mean 94 Pulse Ox 96 96 Oxygen Delivery Method Room Air Room Air Positive well nourished and well developed General Appearance ED: well developed and NAD HEENT Reports TM's clear and moist mucous membranes normocephalic and atraumatic; Negative for trauma or tenderness Tympanic Membrane ED: Yes TM's clear Eyes PERRL and EOMs intact bilaterally General Eye ED: Negative for pale conjunctiva or scleral icterus Neck no lymphadenopathy, supple and no JVD General: Negative for tenderness Chest Wall Chest Narrative: Patient has ecchymosis and bruising to the anterior chest and breasts that appears to be old. She has some mild diffuse tenderness over the anterior chest wall with no crepitus or subcu emphysema noted. Chest: tenderness Resp normal respiratory effort and clear to auscultation bilaterally Effort and Inspection: Negative for respiratory distress or pain with movement Auscultation: Negative for rhonchi, wheezes or diminished lung sounds Cardio regular rate, regular rhythm, S1 normal heart sound, S2 normal heart sound and no murmurs Peripheral Pulses: pulses 2+ throughout GI normal to inspection, nondistended, normoactive bowel sounds, soft to palpation, non-tender, non-distended and no masses Back/Spine no CVA tenderness and no thoracic nor lumbar tenderness Extremity Extremity Narrative: Left arm-patient has ecchymosis and bruising over the proximal humerus. Patient has some diffuse tenderness over the wrist without obvious deformity. She is neurovascular intact distally. General Extremety ED: Negative for edema General Extremity: Negative for edema Neuro oriented x3, CN's II-XII intact bilaterally, no sensory deficits noted and gait normal Sensorium / Orientation: awake, alert, oriented to person, oriented to place and oriented to time Motor Exam: strength 5/5 throughout and strength abnormal Psych mental status grossly normal Skin no rashes or lesions noted and no wounds MDM MDM MDM Narrative Medical decision making narrative: Patient will be placed in a sling and swath. She was given a milligram of Dilaudid and 4 mg of Zofran IM. Patient will be given a prescription for a few more [place] to help with the pain. Patient will be given referral to orthopedics as she does not think she has the name of the orthopedic surgeon she was referred to. Patient is advised that she does not require a cast for this type of fracture. Radiography Diagnostic Testing: Clinical Impression(s) from Imaging Studies Wrist X-Ray 08/07/21 12:50 IMPRESSION: Soft tissue swelling. Electronically Signed: Gonzales Dowell MD at 13:19 EDT , Chest X-Ray 08/07/21 12:55 IMPRESSION: Nondisplaced fracture of the surgical neck of the left humerus with extension to the greater tuberosity The lungs are clear.. Electronically Signed: Gonzales Dowell MD at 13:18 EDT , 1 view chest x-ray obtained interpreted by myself as no acute disease process. Radiology in agreement and they did note the nondisplaced fracture of the surgical neck of the left humerus. Three-view x-rays of the left wrist obtained interpreted by myself as no acute fractures. Radiology in agreement. They noted soft tissue swelling. Discharge Plan Triage Chief Complaint: Fall ED Provider: Manpreet Whitten Dx/Rx/DC Orders Clinical Impression: Closed left humeral fracture, Chest wall contusion Instructions: Bruises (Contusions), ED Fracture, Upper Extremity Prescriptions: New hydrocodone-acetaminophen [hydrocodone-acetaminophen] 5-325 mg tablet 1 tab PO Q4H PRN PRN (Reason: Pain) 2 Days Qty: 10 0RF No Action clopidogrel 75 mg tablet 75 mg PO QODAY Label Comments: 75 mg PO every other day; Rx Instructions: 75 mg PO every other day; albuterol sulfate 0.63 mg/3 mL solution for nebulization 0.63 mg INHALATION Q4H PRN (Reason: Congestion) aspirin 81 MG tablet 81 mg PO DAILY@0800 levothyroxine 75 MCG tablet 75 mcg PO DAILY citalopram 40 mg tablet 40 mg PO DAILY Rx Instructions: 40 mg PO 1 in am and 0.5 at noon; lisinopril 40 mg tablet 40 mg PO DAILY atenolol 50 MG tablet 25 mg PO DAILY atorvastatin 40 MG tablet 40 mg PO DAILY citalopram 20 MG tablet 20 mg PO LUNCH lorazepam 1 MG tablet 1 mg PO 4X/DAY Rx Instructions: takes at 0800, 1200, 1600, 2000 bupropion HCl 100 MG tablet 100 mg PO DAILY pantoprazole 40 MG tablet 40 mg PO DAILY ondansetron 4 MG tablet 4 mg PO Q8H PRN PRN (Reason: Nausea) Qty: 10 0RF donepezil 5 MG tablet 5 mg PO QHS fexofenadine 60 MG tablet 60 mg PO DAILY meloxicam 15 MG tablet 15 mg PO DAILY ketorolac 10 mg tablet 10 mg PO TID PRN (Reason: pain) Qty: 10 0RF metoclopramide HCl [Reglan] 5 mg tablet 5 mg PO DAILY PRN (Reason: nausea and vomiting) Qty: 10 0RF oxycodone-acetaminophen [Percocet] 5-325 mg tablet 1 tab PO Q6H 3 Days Qty: 12 0RF Primary Care Provider: Zully Rojas Referrals: Zully Rojas MD [Primary Care Provider] - Lee Elizondo MD [STAFF PHYSICIAN] - 3-5 Days Disposition Disposition: Home, Self Care
--- NOTE | 2021-08-07 12:55 | RAD_ITS ---
STUDY: X-RAY CHEST REASON FOR EXAM: Female, 76 years old. Fall TECHNIQUE: Single AP portable view of the chest. COMPARISON: Comparison is made with prior examination dated 05/19/2021. FINDINGS: Stable elevation of the left hemidiaphragm. There is no demonstrated pleural abnormality. Sternal cerclage wires and vascular clips are present from a prior sternotomy and coronary artery bypass graft procedure (CABG). Normal mediastinum and beverly. Normal visualized pulmonary arteries. There is atherosclerotic calcification of the aortic arch with tortuosity. Normal visualized thoracic spine. Nondisplaced fracture of the surgical neck of the proximal left humerus with extension into the greater tuberosity. There is no demonstrated abnormality of the visualized soft tissue structures of the upper abdomen. RAD/Chest 1 View (Portable) IMPRESSION: Nondisplaced fracture of the surgical neck of the left humerus with extension to the greater tuberosity The lungs are clear.. Electronically Signed: Gonzales Dowell MD at 13:18 EDT ,
--- NOTE | 2021-08-07 13:33 | ED.RN ---
PT DAUGHTER CHEYANNE AT BEDSIDE WITH PT ON ARRIVAL. REPORTS THAT PATIENT HAS LAPSE IN MEMORY RECALL ON THURSDAY AND THURSDAY. MONICAE INQUIRES WHY PT IS NOT IN A CAST AND IF PT MAY BE ELIGIBLE FOR A HOME HEALTH AIDE. THIS RN INFORMS DAUGHTER AND PATIENT THAT PT HAS HUMERAL FRACTURE WHICH IS TREATED BY IMMOBILIZATION USING A SLING. CHEYANNE VERBALIZES UNDERSTANDING. INFORMED THAT SOCIAL WORK WILL BE CONTACTED IN REGARDS TO HOME HEALTH QUESTIONS. APPLIANCE MECHANIC LACY INFORMED. DAUGHTER REPORTS SHE IS RETURNING TO WORK AND WILL BE ABLE TO PICK PT UP WHEN AVAILABLE FOR DISCHARGE.
--- NOTE | 2021-08-07 13:56 | CM.ED ---
Social Work Note SW updated that pt's daughter Shyanne was inquiring about HHC for pt and aide to assist pt with showering. SW in to speak with pt. SW introduced self at [facility]. Pt is alert and orientated, engages on conversation appropriately. Pt states that she has been doing okay at home. Pt states that her back hurts and confirms she did have a fall a few days ago. SW informed pt that her daughter Shyanne was inquiring about HHC or aide to assist with showering. Patient was provided a list of HHC providers including quality and resource use data and consistent with the patient?s preferred geographic region, medical needs, and insurance network. Pt states that she has had HHC before, unsure of the name of the agency. Pt agreeable to HHC for RN, PT/OT, Aides. SW provided pt with information on [facility] and Private Duty Aides. Pt asked about an Emergency Response Button. SW informed pt that this worker can provide her with Emergency Response Button information through [facility]. Pt states understanding. Pt states that she has family that lives close that checks in on her and also states she has a friend that helps her. Provided pt with brochure on [facility] Emergency Response Button. SW informed pt that she can also reach out to [facility] as they can assist with getting pt an Emergency Response Button. Pt states understanding. LOC updated MD Clemens, agreeable to HHC. Order Placed for HHC for RN, PT/OT, Aides. LOC placed a call to Yulisa with [facility] and provided referral. Marilou Albert PASSENGER SCREENER, INSURANCE BILLING SPECIALIST
[2021-08-07] MEDS: HYDROmorphone 1 MG/ML Syringe IM (14:15)
[2021-08-07] MEDS: Ondansetron 4 MG/2 ML Vial IM (14:15)
--- NOTE | 2021-08-07 14:35 | CM.ED ---
Social Work Note LOC received call from Yulisa at [facility] stating they can accept pt and will see pt Thursday. SW in to speak with pt. LOC updated pt that [facility] Can accept pt and will see pt Thursday. LOC informed pt that this worker will call her daughter Shyanne to update. Pt states understanding, gave permission for SW to call Shyanne. LOC placed a call to Shyanne and updated her that [facility] can accept pt for RN, PT/OT, Aides and start of care will be Thursday. Shyanne also educated on [facility] and Emergency Response Button. Shyanne states that she has tried to get pt on [employer] before but pt makes too much (just barely over the criteria). Shyanne was informed about [facility] through [employer] and encouraged to reach out to them for further community assistance. Shyanne states understanding. Plan: Home with [facility] for RN, PT/OT, Aides Marilou Albert ATTENDANCE OFFICER, INCINERATOR OPERATOR
[2021-08-07 14:57] VITALS: BP 150/64; PULSE 65; RESP 16; O2SAT 94
== END 2021-08-07 15:08 | disposition home or self-care (01) ==
PROVIDERS: Emergency Provider Emergency Medicine; PCP Internal Medicine; Visit Provider Emergency Medicine
DX: S42.302A Unspecified fracture of shaft of humerus, left arm, initial encounter for closed fracture (principal); S20.20XA Contusion of thorax, unspecified, initial encounter; I25.10 Atherosclerotic heart disease of native coronary artery without angina pectoris; F17.210 Nicotine dependence, cigarettes, uncomplicated; W10.2XXA Fall (on)(from) incline, initial encounter; Z95.1 Presence of aortocoronary bypass graft; Z86.73 Personal history of transient ischemic attack (TIA), and cerebral infarction without residual deficits
CPT/HCPCS: 71045; 73110; 96372; 99282; J2405

== ENCOUNTER 2021-10-08 13:29 | Inpatient (IN) | payer MEDICARE, SELFPAY ==
[2017-12-28 13:50] VITALS: BMI 29.2
[2021-10-08] VITALS (7 sets, daily range): BP systolic 118–161; BP diastolic 57–68; PULSE 70–75; RESP 16–20; TEMP 36.6–37.7; O2SAT 96–97; BMI 28.3; BMI 28.4
--- NOTE | 2021-10-08 15:04 | EKG12_ITS ---
Test Reason : arm pain Blood Pressure : / mmHG Vent. Rate : 075 BPM Atrial Rate : 075 BPM P-R Int : 220 ms QRS Dur : 088 ms QT Int : 412 ms P-R-T Axes : 079 061 203 degrees QTc Int : 460 ms Sinus rhythm with 1st degree A-V block with Premature atrial complexes ST & T wave abnormality, consider inferior-lateral ischemia Abnormal ECG Confirmed by LEONEL GOLD, EMILY ([id number]), newspaper copy editor WALLY LOAIZA ([id number]) on 10/10/2021 8:07:22 AM Referred By: Uriah Confirmed By:EMILY CASTANEDA MD
--- NOTE | 2021-10-08 15:05 | ED.VIS.CHEST ---
HPI History of Present Illness Chief Complaint: Chest Other Informant: patient Narrative Narrative: Chest pain at rest sharp in nature at noon. EMS contacted and reported symptoms resolved upon arrival. Takes baby aspirin and Plavix took it today. Postnasal drip causing cough. Tobacco history. History of hypertension hyperlipidemia. Followed by cardiology Dr. Pedroza however states has not seen him in a while. Reports left shoulder pain due to fall 8 weeks ago with a fracture she followed by orthopedics Dr. Agrawal, nonoperative management. Sling as needed. Currently symptom-free. Three-vessel bypass 40 years ago at [facility]. She has not seen cardiology for a while. Tobacco history. Hypertension, hyperlipidemia. No history of diabetes. CVD Risk Factors: Positive for Hypertension, Hypercholesterolemia and Smoking [facility] Medical History Anxiety and depression Atherosclerosis of coronary artery of [place] heart with angina pectoris Back pain Benzodiazepine dependence COPD (chronic obstructive pulmonary disease) Essential (primary) hypertension H/O: pneumonia Hyperlipidemia Hypothyroidism Nicotine dependence Non-rheumatic tricuspid valve insufficiency Obstructive sleep apnea Secondary pulmonary arterial hypertension TIA (transient ischemic attack) Home Medications aspirin 81 mg tablet,delayed release 81 mg PO DAILY@0800 heart health 09/06/17 [History Last Taken 10/08/21] levothyroxine 75 mcg tablet 75 mcg PO QODAY thyroid 09/06/17 [History Last Taken 10/07/21] citalopram 40 mg tablet 40 mg PO DAILY depression 12/18/17 [History Last Taken 10/08/21] clopidogrel 75 mg tablet 75 mg PO QODAY antiplatelet 12/18/17 [History Last Taken 01/16/19] lisinopril 40 mg tablet 40 mg PO DAILY blood pressure 12/18/17 [History Last Taken 10/08/21] atenolol 50 mg tablet 50 mg PO DAILY heart rate 01/05/18 [History Last Taken 10/08/21] atorvastatin 40 mg tablet 40 mg PO DAILY cholesterol 01/05/18 [History Last Taken 10/07/21] lorazepam 1 mg tablet 1 mg PO 4X/DAY anxiety 06/28/18 [History Last Taken 10/08/21] albuterol sulfate 0.63 mg/3 mL solution for nebulization 0.63 mg inhalation Q4H PRN Congestion 07/14/18 [History Last Taken 1 Week Ago ~10/01/21] bupropion HCl 100 mg tablet 100 mg PO DAILY mood 01/16/19 [History Last Taken 10/08/21] pantoprazole 40 mg tablet,delayed release 40 mg PO BID gerd 01/16/19 [History Last Taken 10/08/21] metoclopramide HCl 5 mg tablet (Reglan) 5 mg PO DAILY PRN nausea and vomiting #10 tabs 06/04/21 [Rx Last Taken Unknown] gabapentin 100 mg capsule 200 mg PO 4X/DAY pain 10/08/21 [History Last Taken 10/07/21] hydrocodone-acetaminophen 5-325mg 5mg-325mg 1 tab PO Q4H PRN PRN arm pain 10/08/21 [History Last Taken 10/07/21] oxybutynin chloride 5 mg tablet,extended release 24 hr 5 mg PO DAILY bladder 10/08/21 [History Last Taken 10/08/21] trazodone 100 mg tablet 100 mg PO QHS sleep 10/08/21 [History Last Taken 10/07/21] Allergy/AdvReac Type Severity Reaction Status Date / Time morphine Allergy PT UNSURE Verified 10/08/21 13:33 Penicillins Allergy Hives Verified 10/08/21 13:33 tramadol HCl [From Ultram] Allergy PT UNSURE Verified 10/08/21 13:33 bupropion [From Wellbutrin] AdvReac hallucinati Verified 10/08/21 13:33 ons Family History (Updated 10/08/21 @ 17:52 by Abena Dennis NP, [employer]) Father Heart disease of heart attack at age 64 Mother Cancer of cancer at age 72 CVA (cerebral vascular accident) Surgical History History of appendectomy History of coronary artery bypass graft x 3 History of coronary artery stent placement (12/28/17) History of left heart catheterization (12/28/17) Hx of cholecystectomy Social History (Updated 10/08/21 @ 17:52 by Abena Dennis NP, [employer]) household members: significant other Smoking Status: Current every day smoker tobacco type: cigarettes details: Patient denies alcohol use substance use type: does not use ROS ROS ED Constitutional Constitutional ED: Denies chills, fever(s) or sweats Eyes Eyes: Denies change in vision ENT ENT ED: Denies dysphagia or sore throat Cardiovascular Cardiovascular: Reports chest pain; Denies leg edema, palpitations or racing heartbeat Respiratory/Chest Respiratory/Chest: Denies cough, dyspnea or dyspnea on exertion Gastrointestinal Gastrointestinal: Denies abdominal pain, diarrhea, nausea or vomiting Genitourinary Genitourinary ED: Denies dysuria, hematuria or urinary frequency Musculoskeletal Musculoskeletal: Denies back pain, extremity pain or neck pain Integumentary Denies rash or wounds Neurologic Neurologic: Denies headache(s), paresthesias or weakness EXAM Physical Exam Const Vital Signs: 10/08/21 13:30 10/08/21 14:42 10/08/21 14:42 Temperature 98.3 F Temperature Source Temporal Pulse Rate 74 75 Respiratory Rate 18 16 Respiratory Effort Normal Non-Labored Blood Pressure 161/57 H 118/68 Blood Pressure Mean 91 84 Pulse Ox 97 97 Oxygen Delivery Method Room Air Room Air 10/08/21 16:00 10/08/21 15:15 10/08/21 17:56 Temperature 97.9 F Temperature Source Temporal Pulse Rate 73 71 Respiratory Rate 16 20 H Respiratory Effort Blood Pressure 120/60 155/67 H Blood Pressure Mean 80 96 Pulse Ox 97 96 Oxygen Delivery Method Room Air Room Air Room Air Positive well nourished and well developed General Appearance ED: well developed and NAD HEENT Reports moist mucous membranes normocephalic and atraumatic Eyes PERRL, EOMs intact bilaterally and conjunctivae normal General Eye ED: Yes normal appearance of both eyes Neck no lymphadenopathy and supple General: Negative for tenderness Chest Wall Chest Narrative: Midline chest scar. Chest: Negative for tenderness Resp normal respiratory effort and normal air movement Effort and Inspection: symmetric chest movement; Negative for respiratory distress Cardio regular rate, regular rhythm and no murmurs Peripheral Pulses: pulses 2+ throughout GI normal to inspection, nondistended, normoactive bowel sounds and non-tender Palpation: Negative for guarding or rebound tenderness present Back/Spine no CVA tenderness and no thoracic nor lumbar tenderness Extremity Extremity Narrative: Minimal movement left shoulder due to fracture history. Pulses intact x4. General Extremety ED: Negative for edema or tenderness General Extremity: Negative for edema Neuro oriented x3 and no sensory deficits noted Sensorium / Orientation: awake and alert Skin no rashes or lesions noted and no wounds Heart Score History: Moderately Suspicious ECG: Nonspecific Repolarization Age: >/= 65 years Risk Factors: >/= 3 Risk Factors or History of CAD Troponin: >/=3 x Normal Limit Score: 8 MDM MDM MDM Narrative Medical decision making narrative: EKG chronic T wave version she is symptom-free on my evaluation. She took her aspirin and Plavix today. Work-up notes a troponin elevated to 22 creatinine 0.67 hemoglobin 8.4. This was down from 12 previously. Stool guaiacs sent noted brown stools however Hemoccult returned positive. She did have a hemorrhoids with small ulceration that was not actively bleeding. I did speak with greens keeper Dr. Valera, requests a CT of the chest due to sharp pain in nature to rule out PE. This was obtained returning negative. Nodes a healing fracture of her left humerus which is known and being managed nonoperatively. I spoke with hospitalist Dr. King for admission to PCU. Holding additional anticoagulants due to guaiac positive with anemia. Lab Data Attestation: I reviewed the patient's lab results. Labs: Laboratory Results - last 24 hr 10/08/21 10/08/21 15:20 15:20 WBC 8.7 RBC 3.44 L Hgb 8.4 L Hct 28.7 L MCV 83.4 MCH 24.4 L MCHC 29.3 L RDW Std Deviation 44.4 H RDW Coeff of Ojhn 14.6 Plt Count 350 MPV 9.3 Immature Gran % (Auto) 0.500 Neut % (Auto) 58.9 Lymph % (Auto) 31.2 [place] % (Auto) 6.2 Eos % (Auto) 2.5 Baso % (Auto) 0.7 Absolute Neuts (auto) 5.2 Absolute Lymphs (auto) 2.73 Nucleated RBC % 0 Sodium 141 Potassium 3.7 Chloride 107 Carbon Dioxide 28.0 Anion Gap 6 BUN 11 Creatinine 0.67 Estim Creat Clear Calc 37.24 Est GFR (MDRD) Af Amer 111 Est GFR (MDRD) Non-Af 92 BUN/Creatinine Ratio 16.5 Glucose 111 H Calcium 7.9 L Troponin I High Sens 222 H* Radiography Diagnostic Testing: Clinical Impression(s) from Imaging Studies Chest X-Ray 10/08/21 15:35 IMPRESSION: Stable examination. No acute abnormality is seen. Electronically Signed: Gonzales Dowell MD at 15:54 EDT , Chest CTA 10/08/21 17:07 IMPRESSION: 1. No demonstrated pulmonary embolism or arterial dissection. 2. Healing fracture of the left humeral neck region. Electronically Signed: Ethan Everett MD at 18:47 EDT , EKG Initial EKG: Attestation: I personally reviewed and interpreted this EKG as follows: Comments: Sinus rate of 75, no ST T changes, T wave inversions lateral leads along inferior leads. first-degree AV block. Similar findings from May 2021. Critical Care Time Critical Care Time: Yes Critical care time (excluding procedures): 30-74 minutes, Discussing w/Patient &/or Family/Cap Maker, Discussing w/Consultants, Arranging Admission or Transfer, Performing Direct Patient Care at Bedside and - (45 minutes) Discharge Plan Dx/Rx/DC Orders Clinical Impression: Non-ST elevation (NSTEMI) myocardial infarction, Chest pain, CAD (coronary artery disease), Anemia, Guaiac positive stools, Hemorrhoids, external Disposition Disposition: Acute Care Hospital [facility] Discharge Date/Time: 10/08/21 18:40
--- NOTE | 2021-10-08 15:35 | RAD_ITS ---
STUDY: X-RAY CHEST REASON FOR EXAM: Female, 76 years old. Left-sided breast pain. TECHNIQUE: PA and lateral views of the chest. COMPARISON: Comparison is made with prior study 08/07/2021. FINDINGS: EKG electrodes are seen. The lungs are clear and expanded. There is no demonstrated pleural abnormality. Sternal cerclage wires and vascular clips are present from a prior sternotomy and coronary artery bypass graft procedure (CABG). Normal mediastinum and [place]. Normal visualized pulmonary arteries. Normal visualized aortic arch and descending thoracic aorta. There is demineralization of the osseous structures. Dextroscoliosis. There is degenerative osteoarthritis of the bilateral shoulders. There is no demonstrated abnormality of the visualized soft tissue structures of the upper abdomen. RAD/Chest PA and Lateral IMPRESSION: Stable examination. No acute abnormality is seen. Electronically Signed: Gonzales Dowell MD at 15:54 EDT ,
[2021-10-08 15:36] LABS: Absolute Lymphocyte Count 2.73 X10^3/uL (0.83-4.51); Absolute Neutrophil Count 5.2 X10^3/uL (2.0-7.7); Basophil# 0.06 X10^3/uL; Basophil% 0.7 % (0-1); Eosinophil# 0.22 X10^3/uL; Eosinophils% 2.5 % (0-5); Hematocrit 28.7 % (37-47); Hemoglobin 8.4 g/dL (12.0-15.0); Lymphocyte # 2.73 X10^3/ul (0.83-4.51); Lymphocyte % 31.2 % (19-41); Mean Corp Hgb Conc 29.3 g/dL (32-36); Mean Corpuscular Hgb 24.4 pg (27.0-32.0); Mean Corpuscular Volume 83.4 fL (81-99); Mean Platelet Vol. 9.3 fl (6.2-12.0); Monocyte# 0.54 X10^3/uL; Monocyte% 6.2 % (0-10); NRBC Flagged by Analyzer 0 % (0-5); Neutrophil # 5.15 X10^3/uL (2.7-7.7); Neutrophil % 58.9 % (47-70); Platelet Count 350 K/mm3 (150-450); RBC Distribution Width CV 14.6 % (11.6-14.6); RBC Distribution Width SD 44.4 fl (35.1-43.9); Red Blood Count 3.44 M/mm3 (4.2-5.4); White Blood Count 8.7 K/mm3 (4.4-11.0)
[2021-10-08 16:09] LABS: Anion Gap 6 (5-15); BUN 11 mg/dL (7-18); BUN/Creat Ratio 16.5 RATIO (10-20); Calcium,Total 7.9 mg/dL (8.5-10.1); Chloride 107 mmol/L (98-107); Creatinine, Serum 0.67 mg/dL (0.55-1.02); EST Glomerular Filtration Rate 92 mL/min (>60); Est Glom Filt Rate - Afr Amer 111 mL/min (>60); Estimated Creatinine Clearance 37.24 ml/min; Glucose 111 mg/dL (74-106); Potassium 3.7 mmol/L (3.5-5.1); Sodium Level 141 mmol/L (136-145); Troponin-I HS (w/2H Reflex) 222 pg/mL (3.0-54.0)
[2021-10-08] MEDS: LORazepam 1 MG Tablet PO ×2 (16:44→21:29)
--- NOTE | 2021-10-08 17:07 | CT_ITS ---
EXAM: CT ANGIOGRAPHY CHEST WITHOUT AND WITH INTRAVENOUS CONTRAST CLINICAL INDICATION: chest pain TECHNIQUE: Helically acquired angiography images were obtained of the chest without and with intravenous contrast. This CT exam was performed using one or more of the following dose reduction techniques: automated exposure control, adjustment of the mA and/or kV according to patient size, and/or use of iterative reconstruction technique. This report was created using [employer] report generation technology. MIP reconstructed images were created and reviewed. CONTRAST: IV 75mL [id number] RADIATION DOSE: CTDIvol = 13.27 mGy, DLP = 527.29 mGy-cm COMPARISON: 10/27/2019 FINDINGS: PULMONARY ARTERIES: No demonstrated pulmonary embolism or arterial dissection. AORTA: There is atherosclerotic calcification of the aortic arch with tortuosity and elongation of the aortic arch and descending thoracic aorta. Normal in caliber. No evidence of dissection. GREAT VESSELS OF AORTIC ARCH: Unremarkable. Normal in caliber. No evidence of dissection. LUNGS AND PLEURAL SPACES: Unremarkable. No mass. No consolidation or edema. No pleural effusion or thickening. No pneumothorax. HEART: There are calcifications of the coronary arteries. MEDIASTINUM: Unremarkable. No mediastinal or hilar adenopathy. Esophagus is unremarkable. No hiatal hernia. THYROID: Unremarkable. No thyroid lesions. BONES/JOINTS: Healing fracture of the left humeral neck region. Multiple median sternotomy wires are noted consistent for cardiac surgery. There are degenerative changes of the shoulders. There are multi-level degenerative changes of the thoracic spine. The gallbladder is surgically absent. No suspicious lytic or blastic abnormality. CT/CTA Chest W/WO Contrast IMPRESSION: 1. No demonstrated pulmonary embolism or arterial dissection. 2. Healing fracture of the left humeral neck region. Electronically Signed: Ethan Everett MD at 18:47 EDT ,
[2021-10-08 17:28] LABS: Reflex Troponin-HS? (from REC) Y
--- NOTE | 2021-10-08 17:47 | HP.PCM.HOS_ITS ---
Documented by User: Abena Dennis NP, PHYSICIAN PRACTICE COORDINATOR-C 10/08/21 18:01 HPI - General General Date of Admission: 10/08/21 Date of Service: 10/08/21 Chief Complaint: Chest pain. HPI Narrative MAURICE WALLACE, is a 76 F who presents to the emergency room due to chest pain. Patient is a poor informant. When asked how long she has been having chest pain she states I don't care. She denies shortness of breath. States her pain is currently resolved. She states she has intermittent blood in stool at home however this is somewhat chronic for her. She denies other associated symptoms. Denies any aggravating or alleviating factors. She has a past medical history of TIA/CVA, hypertension, hyperlipidemia, hypothyroidism, CAD with history of CABG/stents, COPD, depression/anxiety, GERD, tobacco dependence. [facility] Medical History Anxiety and depression Atherosclerosis of coronary artery of tribal heart with angina pectoris Back pain Benzodiazepine dependence COPD (chronic obstructive pulmonary disease) Essential (primary) hypertension H/O: pneumonia Hyperlipidemia Hypothyroidism Nicotine dependence Non-rheumatic tricuspid valve insufficiency Obstructive sleep apnea Secondary pulmonary arterial hypertension TIA (transient ischemic attack) Home Medications aspirin 81 mg tablet,delayed release 81 mg PO DAILY@0800 heart health 09/06/17 [History Last Taken 10/03/18 08:00] levothyroxine 75 mcg tablet 75 mcg PO DAILY thyroid 09/06/17 [History Last Taken 10/03/18 07:00] citalopram 40 mg tablet 40 mg PO DAILY depression 12/18/17 [History Last Taken 10/03/18 08:00] clopidogrel 75 mg tablet 75 mg PO QODAY antiplatelet 12/18/17 [History Last Taken 01/16/19] lisinopril 40 mg tablet 40 mg PO DAILY blood pressure 12/18/17 [History Last Taken 10/03/18 08:00] atenolol 50 mg tablet 50 mg PO DAILY heart rate 01/05/18 [History Last Taken 10/03/18 08:00] atorvastatin 40 mg tablet 40 mg PO DAILY cholesterol 01/05/18 [History Last Taken 10/02/18 22:00] lorazepam 1 mg tablet 1 mg PO 4X/DAY anxiety 06/28/18 [History Last Taken 10/03/18 12:00] albuterol sulfate 0.63 mg/3 mL solution for nebulization 0.63 mg inhalation Q4H PRN Congestion 07/14/18 [History Last Taken Unknown] bupropion HCl 100 mg tablet 100 mg PO DAILY 01/16/19 [History Last Taken Unknown] pantoprazole 40 mg tablet,delayed release 40 mg PO DAILY 01/16/19 [History Last Taken Unknown] metoclopramide HCl 5 mg tablet (Reglan) 5 mg PO DAILY PRN nausea and vomiting #10 tabs 06/04/21 [Rx Last Taken Unknown] gabapentin 100 mg capsule 200 mg PO 4X/DAY 10/08/21 [History Last Taken Unknown] hydrocodone-acetaminophen 5-325mg 5mg-325mg 1 tab PO Q4H PRN PRN arm pain 10/08/21 [History Last Taken Unknown] oxybutynin chloride 5 mg tablet,extended release 24 hr 5 mg PO DAILY 10/08/21 [History Last Taken Unknown] trazodone 100 mg tablet 100 mg PO QHS 10/08/21 [History Last Taken Unknown] Allergy/AdvReac Type Severity Reaction Status Date / Time morphine Allergy PT UNSURE Verified 10/08/21 13:33 Penicillins Allergy Hives Verified 10/08/21 13:33 tramadol HCl [From Ultram] Allergy PT UNSURE Verified 10/08/21 13:33 bupropion [From Wellbutrin] AdvReac hallucinati Verified 10/08/21 13:33 ons Family History (Updated 10/08/21 @ 17:52 by Abena Dennis NP, PHYSICIAN PRACTICE COORDINATOR-C) Father Heart disease of heart attack at age 64 Mother Cancer of cancer at age 72 CVA (cerebral vascular accident) Surgical History History of appendectomy History of coronary artery bypass graft x 3 History of coronary artery stent placement (12/28/17) History of left heart catheterization (12/28/17) Hx of cholecystectomy Social History (Updated 10/08/21 @ 17:52 by Abena Dennis NP, PHYSICIAN PRACTICE COORDINATOR-C) household members: significant other Smoking Status: Current every day smoker tobacco type: cigarettes details: Patient denies alcohol use substance use type: does not use ROS Constitutional Constitutional: Denies change in weight, chills, fatigue, fever(s) or weakness Cardiovascular Cardiovascular: Reports chest pain; Denies edema, lightheadedness, palpitations or syncope Respiratory/Chest Respiratory/Chest: Denies cough, dyspnea, productive cough, shortness of breath at rest, shortness of breath with exertion or wheezing Gastrointestinal Gastrointestinal: Denies abdominal pain, constipation, diarrhea, nausea or vomiting Genitourinary Genitourinary: Denies burning urination, difficulty urinating, dysuria, hematuria, urinary frequency, urinary incontinence or urinary urgency Musculoskeletal Musculoskeletal: Denies back pain, joint pain or muscle weakness Integumentary Integumentary: Denies erythema, lesions, rash or wounds Neurologic Neurologic: Denies abnormal speech, confusion, dizziness, focal weakness, numbness, paresthesias, seizure-like activity or syncope Psychiatric Psychiatric: Denies anxiety or depression Hematologic/Lymphatic Hematologic/Lymphatic: Denies anemia, easy bleeding or easy bruising Allergic/Immunologic Allergic/Immunologic: Denies hives or asthma Vital Signs Vital Signs Vital Signs: 10/08/21 13:30 10/08/21 14:42 10/08/21 14:42 Temperature 98.3 F Temperature Source Temporal Pulse Rate 74 75 Respiratory Rate 18 16 Respiratory Effort Normal Non-Labored Blood Pressure 161/57 H 118/68 Blood Pressure Mean 91 84 Pulse Ox 97 97 Oxygen Delivery Method Room Air Room Air 10/08/21 16:00 10/08/21 15:15 Temperature Temperature Source Pulse Rate 73 Respiratory Rate 16 Respiratory Effort Blood Pressure 120/60 Blood Pressure Mean 80 Pulse Ox 97 Oxygen Delivery Method Room Air Room Air Weight Weight: 150 lb Body Mass Index (BMI) 28.3 Physical Exam Const alert and oriented x3 Constitutional Narrative: Appears disheveled, uncooperative with conversation HEENT normocephalic and moist oral mucous membranes Eyes PERRL, EOMs intact bilaterally and conjunctivae normal Neck no lymphadenopathy Resp Auscultation: clear to auscultation bilaterally and diminished lung sounds Cardio regular rate, regular rhythm and no murmurs Peripheral Pulses: pulses 2+ throughout GI normal to inspection, nondistended, normoactive bowel sounds, non-tender and non-distended Extremity normal to inspection Skin no rashes or lesions noted Lesions: no lesions Rashes: no rashes Trauma: no lacerations or abrasions Neuro CN's II-XII intact bilaterally, no focal motor deficits, no sensory deficits noted and deep tendon reflexes 2+ bilaterally Psych mental status grossly normal and affect normal Results Lab / Micro Data Result Diagrams: 10/08/21 15:20 10/08/21 15:20 Labs: Laboratory Results - last 24 hr 10/08/21 15:20: WBC 8.7, RBC 3.44 L, Hgb 8.4 L, Hct 28.7 L, MCV 83.4, MCH 24.4 L , MCHC 29.3 L, RDW Std Deviation 44.4 H, RDW Coeff of John 14.6, Plt Count 350, MPV 9.3, Immature Gran % (Auto) 0.500, Neut % (Auto) 58.9, Lymph % (Auto) 31.2, Ware % (Auto) 6.2, Eos % (Auto) 2.5, Baso % (Auto) 0.7, Absolute Neuts (auto) 5.2, Absolute Lymphs (auto) 2.73, Nucleated RBC % 0 10/08/21 15:20: Sodium 141, Potassium 3.7, Chloride 107, Carbon Dioxide 28.0, Anion Gap 6, BUN 11, Creatinine 0.67, Estim Creat Clear Calc 37.24, Est GFR (MDRD) Af Amer 111, Est GFR (MDRD) Non-Af 92, BUN/Creatinine Ratio 16.5, Glucose 111 H, Calcium 7.9 L, Troponin I High Sens 222 H* Micro: Microbiology 10/08/21 16:55 Stool Stool Occult Blood (KINZA) - Final Occult Blood Positive Radiology Impression Chest X-Ray 10/08/21 15:35 IMPRESSION: Stable examination. No acute abnormality is seen. Electronically Signed: Gonzales Dowell MD at 15:54 EDT , Assessment & Plan Assessment/Plan (1) Elevated troponin: (2) Chest pain: PLAN: Plan 1.? Chest pain, elevated troponin-cardiology consulted. Trend enzymes. CTA of chest ordered to rule out PE. Further recommendations pending CT. Obtain echo. 2. Acute normocytic anemia secondary to GI bleed-consult GI. IV PPI twice daily. Trend H&H. Stool positive for occult blood. 3. History of TIA/CVA- on aspirin, plavix, statin. 4. Hypertension-continue atenolol, lisinopril. 5. Hypothyroidism-continue Synthroid. 6. Hyperlipidemia-continue statin. 7. CAD with history of CABG/stents-on aspirin, statin, Plavix, beta-estefania, lisinopril. 8. COPD-no exacerbation. As needed albuterol aerosol. 9. Depression/anxiety-on citalopram, bupropion, lorazepam, trazodone.? 10. GERD-continue PPI. 11. Tobacco dependence-declines nicotine replacement patch. Encouraged cessation. 12. Recent left shoulder fracture-following with orthopedic medicine. Nonoperative management. DVT prophylaxis-SCDs This patient was seen by ROSA Velazquez under the supervision of Dr. King. Time spent examining patient, reviewing data and subsequent management of care: 26 minutes Documented by User: Dr. Christian King DO 10/08/21 18:35 HPI - General General Date of Admission: 10/08/21 [facility] Medical History Anxiety and depression Atherosclerosis of coronary artery of tribal heart with angina pectoris Back pain Benzodiazepine dependence COPD (chronic obstructive pulmonary disease) Essential (primary) hypertension H/O: pneumonia Hyperlipidemia Hypothyroidism Nicotine dependence Non-rheumatic tricuspid valve insufficiency Obstructive sleep apnea Secondary pulmonary arterial hypertension TIA (transient ischemic attack) Home Medications aspirin 81 mg tablet,delayed release 81 mg PO DAILY@0800 heart health 09/06/17 [History Last Taken 10/03/18 08:00] levothyroxine 75 mcg tablet 75 mcg PO DAILY thyroid 09/06/17 [History Last Taken 10/03/18 07:00] citalopram 40 mg tablet 40 mg PO DAILY depression 12/18/17 [History Last Taken 10/03/18 08:00] clopidogrel 75 mg tablet 75 mg PO QODAY antiplatelet 12/18/17 [History Last Taken 01/16/19] lisinopril 40 mg tablet 40 mg PO DAILY blood pressure 12/18/17 [History Last Taken 10/03/18 08:00] atenolol 50 mg tablet 50 mg PO DAILY heart rate 01/05/18 [History Last Taken 10/03/18 08:00] atorvastatin 40 mg tablet 40 mg PO DAILY cholesterol 01/05/18 [History Last Taken 10/02/18 22:00] lorazepam 1 mg tablet 1 mg PO 4X/DAY anxiety 06/28/18 [History Last Taken 10/03/18 12:00] albuterol sulfate 0.63 mg/3 mL solution for nebulization 0.63 mg inhalation Q4H PRN Congestion 07/14/18 [History Last Taken Unknown] bupropion HCl 100 mg tablet 100 mg PO DAILY 01/16/19 [History Last Taken Unknown] pantoprazole 40 mg tablet,delayed release 40 mg PO DAILY 01/16/19 [History Last Taken Unknown] metoclopramide HCl 5 mg tablet (Reglan) 5 mg PO DAILY PRN nausea and vomiting #10 tabs 06/04/21 [Rx Last Taken Unknown] gabapentin 100 mg capsule 200 mg PO 4X/DAY 10/08/21 [History Last Taken Unknown] hydrocodone-acetaminophen 5-325mg 5mg-325mg 1 tab PO Q4H PRN PRN arm pain 10/08/21 [History Last Taken Unknown] oxybutynin chloride 5 mg tablet,extended release 24 hr 5 mg PO DAILY 10/08/21 [History Last Taken Unknown] trazodone 100 mg tablet 100 mg PO QHS 10/08/21 [History Last Taken Unknown] Allergy/AdvReac Type Severity Reaction Status Date / Time morphine Allergy PT UNSURE Verified 10/08/21 13:33 Penicillins Allergy Hives Verified 10/08/21 13:33 tramadol HCl [From Ultram] Allergy PT UNSURE Verified 10/08/21 13:33 bupropion [From Wellbutrin] AdvReac hallucinati Verified 10/08/21 13:33 ons Family History (Updated 10/08/21 @ 17:52 by Abena Dennis PHYSICIAN PRACTICE COORDINATOR, PHYSICIAN PRACTICE COORDINATOR-C) Father Heart disease of heart attack at age 64 Mother Cancer of cancer at age 72 CVA (cerebral vascular accident) Surgical History (Reviewed 10/08/21 @ 17:52 by Abena Dennis PHYSICIAN PRACTICE COORDINATOR, PHYSICIAN PRACTICE COORDINATOR-C) History of appendectomy History of coronary artery bypass graft x 3 History of coronary artery stent placement (12/28/17) History of left heart catheterization (12/28/17) Hx of cholecystectomy Social History (Updated 10/08/21 @ 17:52 by Abena Dennis PHYSICIAN PRACTICE COORDINATOR, PHYSICIAN PRACTICE COORDINATOR-C) household members: significant other Smoking Status: Current every day smoker tobacco type: cigarettes details: Patient denies alcohol use substance use type: does not use Results Lab / Micro Data Result Diagrams: 10/08/21 15:20 10/08/21 15:20 Assessment & Plan Assessment/Plan (1) Elevated troponin: (2) Chest pain: Charges/Coding Addendum Addendum: Patient was seen and examined independently of Abena Dennis, she came to the emergency room today with complaints of precordial chest pain which happened today, lasted approximately an hour according to the emergency room physician, on the patient's work-up in the emergency room, she was noted to be anemic with a hemoglobin of 8.4-her last hemoglobin in our system was done in May of this year and it was 12.0. Patient's stool was hemocculted in the emergency room and was positive for blood. Patient's troponin was elevated at 222. Patient's EKG showed no acute ischemic changes and a normal sinus rhythm. Patient's chest x- ray showed no acute abnormality, at the time of this dictation, CTA is pending on the patient. On examination she appeared in good health and spirits, she does not appear to be in any distress. Vital signs as documented. Skin warm and dry and without overt rashes. Neck without JVD, thyroid appears normal, trachea is midline, neck is supple. Lungs clear, normal air movement was noted. Heart exam notable for regular rhythm, normal sounds and absence of murmurs, rubs or gallops. Abdomen unremarkable and without evidence of organomegaly, masses, or abdominal aortic enlargement, bowel sounds are present in all 4 quadrants, no abdominal tenderness was noted. Extremities nonedematous, no cyanosis was noted, no clubbing was noted. Neuro: Cranial nerves II through XII are grossly intact, no focal motor deficits were noted, sensation to light touch and pinprick is intact, motor exam 5/5 throughout. Psych: Patient is alert and oriented x3, she does not appear anxious or depressed, she does not appear agitated. Impression: #1 [id number] will be admitted to PCU, she will need to undergo testing regarding her anemia and Hemoccult positive stool before she can undergo any cardiac testing. I talked briefly with Dr. Valera about her care, she will remain on a baby aspirin for now and her enzymes will be cycled. Patient will have an echocardiogram performed tomorrow, cardiology requested that she have carotid ultrasounds done due to bruits. #2 atherosclerotic heart disease-patient has an extensive history of atherosclerotic heart disease and has not had follow-up in Dr. Pedroza's office since 2019. For now we will continue her on a baby aspirin per day and her statin. #3 chronic depression-patient is on Wellbutrin and Lexapro, these will be continued #4 chronic anxiety-patient is on Ativan, this will be continued #5 melena-patient will be placed on a PPI, she will undergo endoscopy tomorrow (colonoscopy and EGD) and will be seen by gastroenterology. 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 Total clinical time spent by myself addressing the patient's medical issues, reviewing the data, and collaborating with patient's care team: 45 minutes Visit Charges Inpatient E&M: 89702 Init Hosp L3
--- NOTE | 2021-10-08 18:12 | CDU_ITS ---
Reason For Study: Bruits Rt. Velocities/BP Lt. Velocities/BP Prox CCA 72.1/12.1 cm/sec. Prox CCA 90.6/16 cm/sec. Mid CCA 86.5/18.6 cm/sec. Mid CCA 84/16 cm/sec. Dist CCA 86.5/18.6 cm/sec. Dist CCA 69.1/12.6 cm/sec. Prox ICA 135.5/39.6 cm/sec. Prox ICA 133.7/37 cm/sec. Mid ICA 160.5/42 cm/sec. Mid ICA 130.1/29.7 cm/sec. Dist ICA 103.8/13.8 cm/sec. Dist ICA 95/27 cm/sec. Rt. ICA/CCA = 1.86. Lt. ICA/CCA = 1.59. Prox ECA 113.8/7.9 cm/sec. Prox ECA 156.5/5 cm/sec. Rt. Vert. 55.6/12.6 cm/sec. Lt. Vert. 95.5/18.8 cm/sec. Right Extracranial There is homogeneous, smooth atherosclerotic plaque noted in the right common carotid artery. There is heterogeneous, irregular atherosclerotic plaque noted in the right internal carotid artery. The right internal carotid artery is very tortuous. There is homogeneous, smooth atherosclerotic plaque noted in the right external carotid artery. Antegrade flow is noted in the right vertebral artery. Left Extracranial There is homogeneous, smooth atherosclerotic plaque noted in the left common carotid artery. There is heterogeneous, irregular atherosclerotic plaque noted in the left internal carotid artery. There is heterogeneous, irregular atherosclerotic plaque noted in the left external carotid artery. Antegrade flow is noted in the left vertebral artery. Procedure Carotid Duplex 48205. This is a Carotid Duplex examination using B-mode, color flow and specral Doppler. Exam performed in department. VL/Carotid Duplex Ultrasound Interpretation Summary Irregular plaque at the proximal right internal carotid artery with a significa nt tortuosity of the right internal carotid artery noted. 50 to 69% stenosis of the right internal c arotid artery Less than 50% stenosis right external carotid artery Irregular calcific plaque at the proximal left internal carotid artery with 50 to 69% stenosis. Less than 50% stenosis left external carotid artery Patent and antegrade vertebral arteries bilaterally Slight advancement of disease bilaterally from the previous study of March Ordering Physician: Abena Dennis Referring Physician: Zully Rojas Performed By: Marilou Freeman RVT
--- NOTE | 2021-10-08 18:38 | ECHOD_ITS ---
Reason For Study: CHEST PAIN Procedure This was a 2D Doppler, Color Flow transthoracic echocardiogram. The study was technically difficult. Exam performed portable in patient room. Left Ventricle Normal LV size. Segmental dysfunction with preserved ejection fraction (see wall motion). The estimated ejection fraction is 55 %. Stage 2 diastolic dysfunction. Infero-Basal: Hypokinetic. Basal inferoseptal: Hypokinetic. Mid-Inferior: Hypokinetic. Right Ventricle Normal RV size. Normal systolic function. Atria The left atrium is moderately enlarged. Normal right atrium. No doppler evidence for ASD. Mitral Valve There is no mitral annular calcification. Normal mitral valve. Moderate (2+) mitral valve insufficiency. Tricuspid Valve Normal tricuspid valve. Mild tricuspid valve insufficiency. Right ventricular systolic pressure estimated to be 44 mmHg. Aortic Valve Trisinus/trileaflet aortic valve. Mild diffuse aortic valve thickening. Pulmonic Valve The pulmonic valve is not well visualized. Great Vessels Normal sized aortic root. Pericardium/Pleural No pericardial effusion. MMode/2D Measurements & Calculations LVIDd: 5.5 cm IVSd: 1.1 cm Ao root diam: 3.3 cm LVIDs: 3.7 cm LVPWd: 1.1 cm RVDd: 3.0 cm FS: 32.0 % LAV(MOD-bp): 92.8 ml LA A4 area: 26.0 cm2 LA dimension(2D): 5.3 cm LAV(MOD-bp) Indexed: 55.5 ml/m2 LAV(MOD-sp2): 91.5 ml LAV(MOD-sp4): 90.4 ml RA A4 area: 16.0 cm2 Time Measurements MV dec time: 0.13 sec Doppler Measurements & Calculations MV E max nabil: 84.7 cm/sec Lat Peak E' Nabil: 6.2 cm/sec Med Peak E' Nabil: 4.2 cm/sec MV A max nabil: 63.1 cm/sec E/E' lat: 13.7 E/E' med: 20.2 MV E/A: 1.3 MV dec slope: 649.7 cm/sec2 Ao V2 max: 126.7 cm/sec LV V1 max: 83.3 cm/sec Ao max P.4 mmHg LV V1 max P.8 mmHg Ao V2 mean: 84.1 cm/sec LV V1 mean P.4 mmHg Ao mean P.2 mmHg LV V1 mean: 56.4 cm/sec Ao V2 VTI: 29.1 cm LV V1 VTI: 20.9 cm MR max nabil: 601.4 cm/sec PA V2 max: 97.6 cm/sec TR max nabil: 311.2 cm/sec MR max P.8 mmHg TR max P.6 mmHg MR mean nabil: 478.3 cm/sec MR mean P.2 mmHg MR VTI: 209.6 cm ECHO/Echo Complete Interpretation Summary The study was technically difficult. Segmental dysfunction with preserved ejection fraction (see wall motion). The estimated ejection fraction is 55 %. The left atrium is moderately enlarged. Moderate (2+) mitral valve insufficiency. Mild tricuspid valve insufficiency. Mild diffuse aortic valve thickening. Right ventricular systolic pressure estimated to be 44 mmHg. Stage 2 diastolic dysfunction. Ordering Physician: Abena Dennis Referring Physician: Zully Rojas Performed By: Janna Lala RDCS, RVT
--- NOTE | 2021-10-08 18:53 | EKG12_ITS ---
Test Reason : CP Blood Pressure : / mmHG Vent. Rate : 067 BPM Atrial Rate : 067 BPM P-R Int : 212 ms QRS Dur : 090 ms QT Int : 444 ms P-R-T Axes : 080 066 -49 degrees QTc Int : 469 ms Sinus rhythm with 1st degree A-V block Cannot rule out Anterior infarct , age undetermined Abnormal ECG When compared with ECG of 08-OCT-2021 14:06, Premature atrial complexes are no longer Present Confirmed by MINE GOLD, GOPAL ([id number]), video effects editor WALLY LOAIZA ([id number]) on 10/11/2021 2:25:02 PM Referred By: IRINA Confirmed By:BRAN BLOUNT MD
--- NOTE | 2021-10-08 19:00 | CON.PCM.CA_ITS ---
Assessment & Plan Assessment/Plan (1) Non-ST elevation (NSTEMI) myocardial infarction: PLAN: The patient presents with symptoms and objective findings concerning for her underlying CAD process with an acute coronary syndrome and a non-ST segment elevation NC. The patient will continue to be monitored. She will continue medical therapy as deemed appropriate. She will undergo noninvasive evaluation with a transthoracic echocardiogram to reassess her left ventricular wall motion and systolic function. She will need to be considered for further invasive evaluation with diagnostic cardiac catheterization to reassess her coronary/graft anatomy. With respect to cardiac catheterization, based upon concerns of her progressive anemia, it may be reasonable that she continue conservative medical management at this time pending further evaluation of her anemia prior to proceeding with invasive cardiac evaluation to assure that she can tolerate antiplatelet/anticoagulant therapy if needed for procedures such as catheter- based revascularization therapy, etc. (2) CAD (coronary artery disease): PLAN: The patient has an extensive history of CAD. She has been evaluated at multiple medical centers. She has undergone cardiac catheterization and PCI at multiple medical centers. She has undergone remote CABG. At the present time she will continue medical therapy with plans for future noninvasive and invasive evaluation as noted. (3) History of coronary artery stent placement: PLAN: The patient has had PCI performed at [facility] and [facility]. Her previous studies are noted. At the moment she will continue medical therapy. She will be considered for future repeat cardiac catheterization. (4) History of coronary artery bypass graft x 3: PLAN: Based upon the patient's previous cardiac catheterization procedures she has had 3 bypass grafts placed. Based upon the results of her previous cardiac catheterization procedures only her SY graft is patent with the 2 SVG grafts (to the OM and the RCA respectively) being occluded. (5) Carotid artery stenosis: PLAN: The patient does have bilateral carotid artery bruits. She has a history of carotid artery stenosis. She has been evaluated noninvasively by carotid artery duplex study, CTA, and MRA. At the present time it may be reasonable to reassess her carotid artery anatomy/physiology for any significant progression of disease compared to her previous studies. (6) Hyperlipidemia: QUALIFIERS: Hyperlipidemia type: pure hypercholesterolemia Qu alified Code(s): E78.00 - Pure hypercholesterolemia, unspecified; E78.0 - Pure hypercholesterolemia PLAN: She should continue lipid-lowering therapy. (7) Essential (primary) hypertension: PLAN: Her blood pressure does need to be followed. Her medications can be adjusted as needed. (8) Anemia: PLAN: Her hemoglobin has decreased over the last 4 months as noted above. She does admit to bright red blood per rectum. The exact etiology is unclear at this time. It would not be unreasonable to proceed with gastroenterology consultation and further evaluation to assist with diagnosis and whether or not the patient can be continued on antiplatelet and anticoagulant therapy. Again this would be important to know if the patient were to proceed to further catheter-based procedures including revascularization therapy. Addt'l Comments The above was discussed and reviewed with the patient, Dr. Purdy of the [facility] emergency department staff, and Dr. King of the [facility] staff. This note was generated using a voice recognition system and there may be incorrect words, spelling or punctuation that were not noted when reviewing the office note prior to saving. HPI Consult Data Date of Consult: 10/08/21 HPI Narrative HPI Narrative: MAURICE WALLACE, is a 76 year old white female who presents for cardiovascular consultation based upon concerns of chest pain, abnormal high-sensitivity troponin I levels concerning for an acute non-ST segment elevation NC, superimposed upon a history of underlying CAD, status post PCI, status post CABG, carotid artery stenosis, hyperlipidemia, hypertension, hypothyroidism, COPD/JAIME, and a finding of anemia. The patient has been previously evaluated by Dr. Pedroza of the [facility] with her last outpatient cardiovascular visit appearing to be on 07-14-2018. She states that she experienced chest discomfort this day. This was a combination of both sharp discomfort and a dull pressure discomfort. She does not recall any acute associated nausea, emesis, or diaphoresis. She may have been somewhat short of breath or dyspneic. She states she had the EMS system bring her to the hospital. In the emergency department she was evaluated. She was found to have an abnormal high-sensitivity troponin I level. Her ECG demonstrated sinus rhythm with first-degree AV block with nonspecific ST and T wave abnormality. She was also found to have a hemoglobin level of 8.4. Her hemoglobin level on 06-04-2021 was reported at 12.0. She states that she has had some bright red blood per rectum. She denies any ongoing issues of orthopnea or PND or peripheral pitting edema. She denies any near-syncope or syncope. She states she does take her medications. With respect to her antiplatelet therapy she states she takes her aspirin 81 mg p.o. daily and her Plavix/clopidogrel 75 mg p.o. q. other day. [facility] Medical History Anxiety and depression Atherosclerosis of coronary artery of [place] heart with angina pectoris Back pain Benzodiazepine dependence COPD (chronic obstructive pulmonary disease) Essential (primary) hypertension H/O: pneumonia Hyperlipidemia Hypothyroidism Nicotine dependence Non-rheumatic tricuspid valve insufficiency Obstructive sleep apnea Secondary pulmonary arterial hypertension TIA (transient ischemic attack) Home Medications aspirin 81 mg tablet,delayed release 81 mg PO DAILY@0800 heart health 09/06/17 [History Last Taken 10/08/21] levothyroxine 75 mcg tablet 75 mcg PO QODAY thyroid 09/06/17 [History Last Taken 10/07/21] citalopram 40 mg tablet 40 mg PO DAILY depression 12/18/17 [History Last Taken 10/08/21] clopidogrel 75 mg tablet 75 mg PO QODAY antiplatelet 12/18/17 [History Last Taken 01/16/19] lisinopril 40 mg tablet 40 mg PO DAILY blood pressure 12/18/17 [History Last Taken 10/08/21] atenolol 50 mg tablet 50 mg PO DAILY heart rate 01/05/18 [History Last Taken 10/08/21] atorvastatin 40 mg tablet 40 mg PO DAILY cholesterol 01/05/18 [History Last T aken 10/07/21] lorazepam 1 mg tablet 1 mg PO 4X/DAY anxiety 06/28/18 [History Last Taken 10/08/21] albuterol sulfate 0.63 mg/3 mL solution for nebulization 0.63 mg inhalation Q4H PRN Congestion 07/14/18 [History Last Taken 1 Week Ago ~10/01/21] bupropion HCl 100 mg tablet 100 mg PO DAILY mood 01/16/19 [History Last Taken 10/08/21] pantoprazole 40 mg tablet,delayed release 40 mg PO BID gerd 01/16/19 [History Last Taken 10/08/21] metoclopramide HCl 5 mg tablet (Reglan) 5 mg PO DAILY PRN nausea and vomiting #10 tabs 06/04/21 [Rx Last Taken Unknown] gabapentin 100 mg capsule 200 mg PO 4X/DAY pain 10/08/21 [History Last Taken 10/07/21] hydrocodone-acetaminophen 5-325mg 5mg-325mg 1 tab PO Q4H PRN PRN arm pain 10/08/21 [History Last Taken 10/07/21] oxybutynin chloride 5 mg tablet,extended release 24 hr 5 mg PO DAILY bladder 10/08/21 [History Last Taken 10/08/21] trazodone 100 mg tablet 100 mg PO QHS sleep 10/08/21 [History Last Taken 10/07/21] Allergy/AdvReac Type Severity Reaction Status Date / Time morphine Allergy PT UNSURE Verified 10/08/21 13:33 Penicillins Allergy Hives Verified 10/08/21 13:33 tramadol HCl [From Ultram] Allergy PT UNSURE Verified 10/08/21 13:33 bupropion [From Wellbutrin] AdvReac hallucinati Verified 10/08/21 13:33 ons Family History (Updated 10/08/21 @ 17:52 by Abena Dennis CAMPAIGN CONSULTANT, CAMPAIGN CONSULTANT-C) Father Heart disease of heart attack at age 64 Mother Cancer of cancer at age 72 CVA (cerebral vascular accident) Surgical History History of appendectomy History of coronary artery bypass graft x 3 History of coronary artery stent placement (12/28/17) History of left heart catheterization (12/28/17) Hx of cholecystectomy Social History (Updated 10/08/21 @ 17:52 by Abena Dennis CAMPAIGN CONSULTANT, CAMPAIGN CONSULTANT-C) household members: significant other Smoking Status: Current every day smoker tobacco type: cigarettes details: Patient denies alcohol use substance use type: does not use ROS Constitutional Constitutional: Reports as per HPI Eyes Eyes: Reports as per HPI ENT HEENT: Reports as per HPI Cardiovascular Cardiovascular: Reports chest pain at rest and dyspnea Respiratory/Chest Respiratory/Chest: Reports dyspnea Gastrointestinal Gastrointestinal: Reports hematochezia Genitourinary Genitourinary: Reports as per HPI Musculoskeletal Musculoskeletal: Reports as per HPI Integumentary Integumentary: Reports as per HPI Neurologic Neurologic: Reports as per HPI Psychiatric Psychiatric: Reports as per HPI Physical Exam Const alert, oriented x3 and no apparent distress Orientation / Consciousness: awake HEENT normocephalic, head/scalp atraumatic and hearing grossly normal bilaterally Eyes PERRL, EOMs intact bilaterally, conjunctivae normal and no scleral icterus Neck full ROM, supple and no JVD Carotids: normal carotid upstroke and bruit Positive for bilateral Chest Chest: midline sternotomy incision Resp normal respiratory effort and clear to auscultation bilaterally Cardio regular rate, regular rhythm, S1 normal heart sound and S2 normal heart sound GI normal to inspection, nondistended, normoactive bowel sounds Extremity no pedal edema Skin no rashes or lesions noted Psych mental status grossly normal Risk Stratification Risk Stratification Applicable: Yes Age >/= 65: Yes >/= 3 CAD Risk Factors (HTN, HLD, DM, family hx of CAD, or current smoker): Yes Aspirin Use in the Past 7 Days: Yes Severe Angina (>/= episodes in 24 hours): Yes EKG ST Changes >/= 0.5mm: No Positive Cardiac Marker: Yes SAL Risk Stratification Score: 5 SAL % Risk: 25% Risk Procedure Criteria Type of Procedure Procedure Type: Elective Elective Risks - COVID COVID Risk Discussion: The surgeon/proceduralist and patient have discussed in detail the risk of exposure to and/or potential harm posed by the COVID-19 virus with having a surgery/procedure at this time versus the risk of delaying the surgery/procedure. It is not possible to know either the risk of delaying the surgery or procedure or chance of getting an infection with perfect accuracy, but a joint decision was made between the patient and the surgeon/proceduralist to proceed at this time with the scheduled surgery/procedure as indicated on the consent form. Objective Data Vital Signs: Vital Signs Temp Pulse Resp BP Pulse Ox O2 Del Method 97.9 F 70 20 H 155/67 H 96 Room Air 10/08/21 17:56 10/08/21 18:45 10/08/21 17:56 10/08/21 17:56 10/08/21 17:56 10/08/21 17:56 Oxygen Delivery Method Room Air Weight: 150 lb 9.211 oz Body Mass Index (BMI) 28.4 Lab / Micro Data Result Diagrams: 10/08/21 15:20 10/08/21 15:20 Labs: Laboratory Results - last 24 hr 10/08/21 15:20: WBC 8.7, RBC 3.44 L, Hgb 8.4 L, Hct 28.7 L, MCV 83.4, MCH 24.4 L , MCHC 29.3 L, RDW Std Deviation 44.4 H, RDW Coeff of John 14.6, Plt Count 350, MPV 9.3, Immature Gran % (Auto) 0.500, Neut % (Auto) 58.9, Lymph % (Auto) 31.2, [place] % (Auto) 6.2, Eos % (Auto) 2.5, Baso % (Auto) 0.7, Absolute Neuts (auto) 5.2, Absolute Lymphs (auto) 2.73, Nucleated RBC % 0 10/08/21 15:20: Sodium 141, Potassium 3.7, Chloride 107, Carbon Dioxide 28.0, Anion Gap 6, BUN 11, Creatinine 0.67, Estim Creat Clear Calc 37.24, Est GFR (MDRD) Af Amer 111, Est GFR (MDRD) Non-Af 92, BUN/Creatinine Ratio 16.5, Glucose 111 H, Calcium 7.9 L, Troponin I High Sens 222 H* Micro: Microbiology 10/08/21 16:55 Stool Stool Occult Blood (KINZA) - Final Occult Blood Positive Cardiology Labs/Tests 10/08/21 15:20: WBC 8.7, RBC 3.44 L, Hgb 8.4 L, Hct 28.7 L, MCV 83.4, MCH 24.4 L , MCHC 29.3 L, Plt Count 350, MPV 9.3, Immature Gran % (Auto) 0.500, Neut % (Auto) 58.9, Lymph % (Auto) 31.2, [place] % (Auto) 6.2, Eos % (Auto) 2.5, Baso % (Auto) 0.7, Absolute Neuts (auto) 5.2, Nucleated RBC % 0 10/08/21 15:20: Sodium 141, Potassium 3.7, Chloride 107, Carbon Dioxide 28.0, Anion Gap 6, BUN 11, Creatinine 0.67, Est GFR (MDRD) Af Amer 111, Est GFR (MDRD) Non-Af 92, BUN/Creatinine Ratio 16.5, Glucose 111 H, Calcium 7.9 L Rhythm: Sinus rhythm EKG: As noted above ECHO: 11-15-2020 Interpretation Summary The estimated ejection fraction is 65 %. Stage 2 diastolic dysfunction. The left atrium is mildly enlarged. Trivial mitral valve insufficiency. Possible bicuspid aortic valve Stress Test: 01-06-2018 Stress Test Report Pharmacologic myocardial perfusion stress test. 72-year-old lady with a history of coronary artery disease. Stress protocol: Resting EKG demonstrates normal sinus rhythm with rate of 64 bpm normal intervals are noted resting blood pressure is 148/82 mmHg.? 0.4 mg of regadenoson was infused per usual protocol followed by rapid intravenous saline flush injection continuous EKG monitoring was performed.? Patient maintained sinus rhythm throughout the recording with occasional premature atrial complexes noted.? The maximum heart rate attained was 90 bpm which was 60% of maximum pred icted heart rate the maximum workload was 1 metabolic equivalent.? At rest there were no ST or T wave changes noted to suggest abnormal flow reserve at peak infusion no ST or T wave changes were noted suggest abnormal flow reserve.? Resting blood pressure 148/82 final blood pressure 150/70. Myocardial perfusion protocol. 11.1 mCi of technetium 99m sestamibi was injected at rest.? 0.4 mg of regade noson was infused per usual protocol.? At peak infusion 32.9 mCi of technetium 99m sestamibi was injected stress images were obtained stress and rest images were reconstructed and compared in the short axis vertical long horizontal long axis.? Gated images were also obtained Perfusion SPECT analysis: Review of the stress images demonstrate normal uptake of tracer noted in all areas of the myocardium.? The resting images similarly demonstrate normal uptake of tracer noted in all areas of the myocardium.? No areas of reversibility are noted suggest ischemia and no previous infarct is noted. Gated SPECT analysis: The gated ejection fraction is noted to be 63%. Conclusion: Normal pharmacologic myocardial perfusion stress test. Preserved ejection fraction. Cardiac cath: 11-25-2013: [place], [place] Impression: Normal left ventricular function; LVEF 60% Moderate elevation of diastolic pressure with an LVEDP of 18 MR: 1+ LAD: 100% LCx: Stent: Patent RCA: Stent: Patent SY to the LAD: Patent SVG to the OM: Occluded SVG to the RCA: Occluded Cardiac Cath: 12-28-2017 CONCLUSIONS Severe stenosis noted prior to the right coronary artery stent as well as moderately severe stenosis noted distal to the right coronary artery stent.? Left internal mammary artery to the left anterior descending artery patent.? Left anterior descending artery occluded.? Left circumflex artery with previously placed stents patent.? Saphenous vein graft to the right coronary artery and obtuse marginal branches are occluded. RECOMMENDATIONS Referred for immediate PCI DESCRIPTION OF? PROCEDURE The patient arrived to the procedure lab. The risks and benefits of the procedure as well as a full description of our services here and current unavailability of surgical backup were fully explained to the patient and/or their significant other prior to the catheterization. The Timeout was completed, verifying the correct patient and procedure. The patient's procedural site was prepped and draped in the usual fashion. Local anesthetic was given subcutaneously to right groin region with Lidocaine 2%. Using a modified Vanessa fabio technique, arterial access was obtained via the right femoral artery, a 5Fr sheath was inserted.? Left Coronary Artery selective angiography was performed in multiple views using a 5 Fr. JL4 catheter. Right Coronary Artery selective angiography was then performed in multiple views using a 5 Fr. 3DRC (Navid) catheter. Left internal mammary artery graft to the LAD selective angiography was performed in multiple views using a 5 Fr. IM catheter. Left Ventriculography was performed in BEARD projection using a 5 Fr. Pigtail catheter. LV to AO pullback pressures were then recorded. CORONARY ANGIOGRAPHY DOMINANCE:? Right Dominant LEFT HEART ASSESSMENT Left Ventricular Ejection Fraction: by LV Gram 65 % Normal Left Ventricular systolic function LEFT MAIN: Mild luminal irregularities LEFT ANTERIOR DECENDING ARTERY: OSTIAL LAD: is occluded CIRCUMFLEX ARTERY: MID CIRC: Previously placed stent is patent OM 1: Ostial - Mild luminal irregularities less than 30% RIGHT CORONARY ARTERY: PROX RCA: Mild luminal irregularities less than 30% MID RCA: 95 prior to stent % Stenosis, Previously placed stent is patent DISTAL RCA: 60 post stent stenosis % Stenosis GRAFTS: ?SY graft to the Mid LAD is patent Saphenous Vein graft to the 1st OM is totally occluded Saphenous Vein graft to the RCA is totally occluded PCI: 03-14-2011: [place], [place] LCx: Promus element 2.5 x 24 mm drug-eluting stent PCI: 12-29-2017 CONCLUSIONS Successful PTCA/BRIANA of mid RCA ISR with a 2.0 x 10 Angiosculpt, followed by a 2.5 x 38 Promus Synergy, post dilated throughout with a 3.0 x 12 NC Balloon; 85%-->0%, no dissection. Successful PTCA/BRIANA proximal RCA with a 2.5 x 12 Promus Synergy, post dilated with a 3.0 x 12 NC balloon; 75%-->0%, no dissection. RECOMMENDATIONS Highly recommend quitting all tobacco products Follow up with primary equity structurer Risk factor modification ASA Indefinitley Plavix for at least 12 months Routine post interventional care Refer for Outpatient Cardiac Rehab Manual sheath removal per protocol Follow up with Dr. Pedroza DESCRIPTION OF? PROCEDURE The patient arrived to the procedure lab. The risks and benefits of the procedure as well as a full description of our services here and current unavailability of surgical backup were fully explained to the patient and/or their significant other prior to the catheterization. The Timeout was completed, verifying the correct patient and procedure. The patient's procedural site was prepped and draped in the usual fashion. Local anesthetic was given subc utaneously to right groin region with Lidocaine 2% Using a modified Seldinger technique,arterial access was obtained via the right femoral artery, a 5Fr sheath was inserted. Left Coronary Artery selective angiography was performed in multiple views using a 5 Fr. JL4 catheter. Right Coronary Artery selective angiography was then performed in multiple views using a 5 Fr. 3DRC (Navid) catheter. Left internal mammary artery graft to the LAD selective angiography was performed in multiple views using a 5 Fr. IM catheter. Left Ventriculography was performed in BEARD projection using a 5 Fr. Pigtail catheter. LV to AO pullback pressures were then recorded.The images were reviewed and options discussed. A decision was then made to proceed with an Intervention, IVUS or other adjunct procedure. ? ? Arterial sheath was exchanged for a 6 Fr Sheath. HSII Guide catheter was inserted and engaged into the RCA. HS II SH Guide catheter was inserted and engaged into the RCA. BMW Guide wire was advanced to the RCA. Angiogram performed pre balloon dilatation. Emerge 2.00x12 Balloon catheter was inserted. PTCA balloon inflated at 8 atms for 13 secs. PTCA balloon inflated at 8 atms for 13 secs. Angiogram performed post balloon dilatation. Cutting balloon catheter was inserted angiosculpt 2.0x10 Cutting balloon catheter was inserted angiosculpt 2.0x10 Synergy 2.50x38 Drug Eluting stent was inserted. Angiogram performed post stent deployment. NC emerge 3.00x12 Balloon catheter was inserted. PTCA balloon inflated at 12 atms for 12 secs. PTCA balloon inflated at 14 atms for 14 secs. PTCA balloon inflated at 6 atms for 12 secs. Synergy 2.50x12 Drug Eluting stent was inserted. Angiogram performed post stent deployment. NC emerge 3.00x12 Balloon catheter was inserted. PTCA balloon inflated at 8 atms for 10 secs. PTCA balloon inflated at 8 atms for 12 secs. Angiogram performed post balloon dilatation. NC Emerge 3.00x12 Balloon catheter was inserted. PTCA balloon inflated at 12 atms for 13 secs. Angiogram performed post balloon dilatation. NC Emerge 3.00x8 Balloon catheter was inserted. PTCA balloon inflated at 17 atms for 23 secs. Angiogram performed post balloon dilatation. Contrast was injected through the sheath and the Right Iliac and Femoral artery were assessed for possible closure device.? The arterial sheath was sutured in place and capped INTERVENTION INFORMATION LESION SITE: RCA (Mid) Lesion Complexity: High/C, lesion at bifurcation: No, thrombus present: No, lesion length: 38 mm, culprit lesion: Yes, In-stent restenosis: Yes ?Pre Stenosis: 85 % Pre intervention SAL flow: 3 PROCEDURE: Balloon Angioplasty, Drug Eluting Stent with pre and post dilatation, Cutting Balloon Angioplasty Post Stenosis: 0 %? Post intervention SAL flow: 3 Lesion Devices: Diaz .014 BMW [place] Straight 190cm Medtronic 6 Fr HSII SH 100cm Guide Catheter Brandt Sci EMERGE MR 2.00x12 BALLOON eventuosity Angiosculpt RX 2.0x10 Scoring Balloon Brandt Sci Synergy MR BRIANA 2.50x38 Brandt Sci NC EMERGE MR 3.00x12 BALLOON LESION SITE: RCA (Proximal) Lesion Complexity: Non-High/Non-C, lesion at bifurcation: No, thrombus present: No, lesion length: 12 mm, culprit lesion: No ?Pre Stenosis: 75 %? Pre intervention SAL flow: 3 PROCEDURE: Drug Eluting Stent with pre and post dilatation Post Stenosis: 0 %? Post intervention SAL flow: 3 Lesion Devices: Diaz .014 BMW [place] Straight 190cm Medtronic 6 Fr HSII SH 100cm Guide Catheter Brandt Sci NC EMERGE MR 3.00x12 BALLOON Brandt Sci Synergy MR BRIANA 2.50x12 Brandt Sci NC EMERGE MR 3.00x08 BALLOON Chest CTA: 10-08-2021 FINDINGS: PULMONARY ARTERIES:? No demonstrated pulmonary embolism or arterial dissection. AORTA:? There is atherosclerotic calcification of the aortic arch with tortuosity and elongation of the aortic arch and descending thoracic aorta. Normal in caliber.? No evidence of dissection. GREAT VESSELS OF AORTIC ARCH:? Unremarkable.? Normal in caliber.? No evidence of dissection. LUNGS AND PLEURAL SPACES:? Unremarkable.? No mass.? No consolidation or edema.? No pleural effusion or thickening.? No pneumothorax. HEART:? There are calcifications of the coronary arteries. MEDIASTINUM:? Unremarkable.? No mediastinal or hilar adenopathy.? Esophagus is unremarkable.? No hiatal hernia. THYROID:? Unremarkable.? No thyroid lesions. BONES/JOINTS:? Healing fracture of the left humeral neck region.? Multiple median sternotomy wires are noted consistent for cardiac surgery.? There are degenerative changes of the shoulders.? There are multi-level degenerative changes of the thoracic spine.? The gallbladder is surgically absent.? No suspicious lytic or blastic abnormality. CT/CTA Chest W/WO Contrast IMPRESSION: ? 1.? No demonstrated pulmonary embolism or arterial dissection. ? 2.? Healing fracture of the left humeral neck region. ? Electronically Signed: Ethan Everett MD at 18:47 EDT Reading Location ID and State: [id number] / [place] Carotid artery duplex: 03-19-2021 Interpretation Summary Mild (<50%) stenosis right extracranial internal carotid. Mild (<50%) stenosis left extracranial internal carotid. Flow within the vertebral arteries is antegrade bilaterally. Neck CTA: 01-02-2020 FINDINGS: AORTIC ARCH: Normal visualized aortic arch.? Intimal wall thickening with moderate narrowing at the origin of the left common carotid artery. RIGHT CAROTID ARTERIES: Normal right common carotid artery (CCA).? There is mild atherosclerotic plaque formation with minimal narrowing of the right carotid bulb.? Mild intimal wall thickening at the right carotid bulb.? There is less than 50% stenosis. Normal origin of the right internal carotid (ICA) artery without a hemodynamically significant stenosis.? Normal visualized cervical portion of the right internal carotid artery. Normal origin of the right external carotid artery (ECA). LEFT CAROTID ARTERIES: Normal left common carotid artery (CCA).? There is mild atherosclerotic plaque formation with minimal narrowing of the left carotid bulb.? Mild intimal wall thickening of the carotid bulb.? Roughly 50% stenosis. Normal origin of the left internal carotid (ICA) artery without a hemodynamically significant stenosis.? Normal visualized cervical portion of the left internal carotid artery. Normal origin of the left external carotid artery (ECA). VERTEBRAL ARTERIES: Normal bilateral vertebral arteries. CT/CTA Neck W/WO Contrast IMPRESSION: 1.? There appears to be significant intimal wall thickening at the origin of the left common carotid artery from the aortic arch.? This causes appearance of significant stenosis. ? 2.? Plaque formation and intimal wall thickening at the bilateral carotid bulbs with less than 50% stenosis on the right and roughly 50% stenosis on the left. ? 3.? Otherwise, the carotid arteries appear within normal limits.? Normal appearance of the vertebral arteries. ? Electronically Signed: Brett Clement DO at 4:45 EST Neck MRA: 11-15-2020 FINDINGS: RIGHT CAROTID ARTERIES: Normal right common carotid artery (CCA).? Normal right common carotid bulb.? Normal origin of the right internal carotid (ICA) artery without a hemodynamically significant stenosis.? Normal visualized cervical portion of the right internal carotid artery. Normal origin of the right external carotid artery (ECA). LEFT CAROTID ARTERIES: Normal left common carotid artery (CCA).? Normal left common carotid bulb. Normal origin of the left internal carotid (ICA) artery without a hemodynamically significant stenosis.? Normal visualized cervical portion of the left internal carotid artery. Normal origin of the left external carotid artery (ECA). VERTEBRAL ARTERIES: Normal antegrade flow within the bilateral vertebral artery without a hemodynamically significant stenosis. MRI/MRA Neck without Contrast IMPRESSION: Normal bilateral cervical carotid and vertebral arteries. ? Electronically Signed: Murtaza Donald MD at 10:59 EDT Radiography Diagnostic Testing: Radiology Impression Chest X-Ray 10/08/21 15:35 IMPRESSION: Stable examination. No acute abnormality is seen. Electronically Signed: Gonzales Dowell MD at 15:54 EDT , Chest CTA 10/08/21 17:07 IMPRESSION: 1. No demonstrated pulmonary embolism or arterial dissection. 2. Healing fracture of the left humeral neck region. Electronically Signed: Ethan Everett MD at 18:47 EDT Reading Location ID and State: [facility] [place] , Service support ,
[2021-10-08 19:01] LABS: Troponin-I HS 278 pg/mL (3.0-54.0)
[2021-10-08] MEDS: Bisacodyl 5 MG Tablet 20 MG PO (20:02)
[2021-10-08] MEDS: Gabapentin 100 MG Capsule 200 MG PO (21:29)
[2021-10-08] MEDS: Polyethylene Glycol 3350 BOWEL PREP PO (21:29)
[2021-10-08] MEDS: Atorvastatin Calcium 40 MG Tablet PO (21:29)
[2021-10-08] MEDS: traZODone 100 MG Tablet PO (21:29)
[2021-10-08 22:37] LABS: Troponin-I HS 357 pg/mL (3.0-54.0)
--- NOTE | 2021-10-08 23:00 | CON.PCM_ITS ---
Assessment & Plan Assessment/Plan (1) Anemia: PLAN: The differential diagnosis for her acute onset anemia would be GI bleed in the setting of guaiac positive stools. She is high risk for GI bleed due to presence of aspirin and Plavix. She also is having a non-ST segment elevation MA. We did not stop her blood thinners. She should undergo an upper and lower endoscopy evaluate her upper GI tract. She was explained alternatives, risk, benefits including not withstanding bleeding, infection, sepsis, perforation, need for emergency or . She will have an ASA of 3. HPI Consult Data Date of Consult: 10/08/21 HPI Narrative Reason for Consultation: Anemia HPI Narrative: MAURICE WALLACE, is a 76 F who presents to the ER with chest pain. Her chest pain at rest sharp in nature at noon.? The EMS contacted and reported symptoms resolved upon arrival.? She takes baby aspirin and Plavix took it today.? Postnasal drip causing cough.? Tobacco history.? History of hypertension hyperlipidemia.? Followed by cardiology Dr. Pedroza however states has not seen him in a while.? Reports left shoulder pain due to fall 8 weeks ago with a fracture she followed by orthopedics Dr. Agrawal, nonoperative management.? Sling as needed.? Currently symptom-free.? Three-vessel bypass 40 years ago at [facility].? She has not seen cardiology for a while.? Tobacco history.? Hypertension, hyperlipidemia.? No history of diabetes. I am seeing her because of a new onset anemia. Her hemoglobin was 12.2 and on arrival was 8.4 in approximately 2 months time. Rechecked it was 8.8. She states she has intermittent blood in stool at home however this is somewhat chronic for her.? She denies other associated symptoms.? Denies any aggravating or alleviating factors.? She has a past medical history of TIA/CVA, hypertension, hyperlipidemia, hypothyroidism, CAD with history of CABG/stents, COPD, depression/anxiety, GERD, tobacco dependence. All other 16 review of systems are negative except of her positive mentioned HPI. [facility] Medical History Anxiety and depression Atherosclerosis of coronary artery of [place] heart with angina pectoris Back pain Benzodiazepine dependence COPD (chronic obstructive pulmonary disease) Essential (primary) hypertension H/O: pneumonia Hyperlipidemia Hypothyroidism Nicotine dependence Non-rheumatic tricuspid valve insufficiency Obstructive sleep apnea Secondary pulmonary arterial hypertension TIA (transient ischemic attack) Home Medications aspirin 81 mg tablet,delayed release 81 mg PO DAILY@0800 heart health 09/06/17 [History Last Taken 10/08/21] levothyroxine 75 mcg tablet 75 mcg PO QODAY thyroid 09/06/17 [History Last Taken 10/07/21] citalopram 40 mg tablet 40 mg PO DAILY depression 12/18/17 [History Last Taken 10/08/21] clopidogrel 75 mg tablet 75 mg PO QODAY antiplatelet 12/18/17 [History Last Taken 01/16/19] lisinopril 40 mg tablet 40 mg PO DAILY blood pressure 12/18/17 [History Last Taken 10/08/21] atenolol 50 mg tablet 50 mg PO DAILY heart rate 01/05/18 [History Last Taken 10/08/21] atorvastatin 40 mg tablet 40 mg PO DAILY cholesterol 01/05/18 [History Last Taken 10/07/21] lorazepam 1 mg tablet 1 mg PO 4X/DAY anxiety 06/28/18 [History Last Taken 10/08/21] albuterol sulfate 0.63 mg/3 mL solution for nebulization 0.63 mg inhalation Q4H PRN Congestion 07/14/18 [History Last Taken 1 Week Ago ~10/01/21] bupropion HCl 100 mg tablet 100 mg PO DAILY mood 01/16/19 [History Last Taken 10/08/21] pantoprazole 40 mg tablet,delayed release 40 mg PO BID gerd 01/16/19 [History Last Taken 10/08/21] metoclopramide HCl 5 mg tablet (Reglan) 5 mg PO DAILY PRN nausea and vomiting #10 tabs 06/04/21 [Rx Last Taken Unknown] gabapentin 100 mg capsule 200 mg PO 4X/DAY pain 10/08/21 [History Last Taken 10/07/21] hydrocodone-acetaminophen 5-325mg 5mg-325mg 1 tab PO Q4H PRN PRN arm pain 10/08/21 [History Last Taken 10/07/21] oxybutynin chloride 5 mg tablet,extended release 24 hr 5 mg PO DAILY bladder 10/08/21 [History Last Taken 10/08/21] trazodone 100 mg tablet 100 mg PO QHS sleep 10/08/21 [History Last Taken 10/07/21] Allergy/AdvReac Type Severity Reaction Status Date / Time morphine Allergy PT UNSURE Verified 10/08/21 13:33 Penicillins Allergy Hives Verified 10/08/21 13:33 tramadol HCl [From Ultram] Allergy PT UNSURE Verified 10/08/21 13:33 bupropion [From Wellbutrin] AdvReac hallucinati Verified 10/08/21 13:33 ons Family History (Updated 10/08/21 @ 17:52 by Abena Dennis NP, FORENSICS ANALYST-C) Father Heart disease of heart attack at age 64 Mother Cancer of cancer at age 72 CVA (cerebral vascular accident) Surgical History History of appendectomy History of coronary artery bypass graft x 3 History of coronary artery stent placement (12/28/17) History of left heart catheterization (12/28/17) Hx of cholecystectomy Social History (Updated 10/08/21 @ 17:52 by Abena Dennis NP, FORENSICS ANALYST-C) household members: significant other Smoking Status: Current every day smoker tobacco type: cigarettes details: Patient denies alcohol use substance use type: does not use ROS Constitutional Constitutional: Reports as per HPI Eyes Eyes: Reports as per HPI ENT HEENT: Reports as per HPI Cardiovascular Cardiovascular: Reports chest pain at rest and dyspnea Respiratory/Chest Respiratory/Chest: Reports dyspnea Gastrointestinal Gastrointestinal: Reports hematochezia Genitourinary Genitourinary: Reports as per HPI Musculoskeletal Musculoskeletal: Reports as per HPI Integumentary Integumentary: Reports as per HPI Neurologic Neurologic: Reports as per HPI Psychiatric Psychiatric: Reports as per HPI Physical Exam Const alert and oriented x3 HEENT normocephalic Mouth: dry mucous membranes Eyes PERRL, EOMs intact bilaterally and conjunctivae normal Neck no lymphadenopathy Resp clear to auscultation bilaterally Auscultation: diminished lung sounds Cardio regular rate, regular rhythm and no murmurs Peripheral Pulses: pulses 2+ throughout GI normal to inspection, nondistended, normoactive bowel sounds, non-tender and non-distended Extremity normal to inspection Skin no rashes or lesions noted Lesions: no lesions Rashes: no rashes Trauma: no lacerations or abrasions Neuro CN's II-XII intact bilaterally, no focal motor deficits, no sensory deficits noted and deep tendon reflexes 2+ bilaterally Psych mental status grossly normal and affect normal Lab / Micro Data Result Diagrams: 10/09/21 05:44 10/09/21 05:44 Labs: Laboratory Results - last 24 hr 10/08/21 15:20: WBC 8.7, RBC 3.44 L, Hgb 8.4 L, Hct 28.7 L, MCV 83.4, MCH 24.4 L , MCHC 29.3 L, RDW Std Deviation 44.4 H, RDW Coeff of John 14.6, Plt Count 350, MPV 9.3, Immature Gran % (Auto) 0.500, Neut % (Auto) 58.9, Lymph % (Auto) 31.2, Custer % (Auto) 6.2, Eos % (Auto) 2.5, Baso % (Auto) 0.7, Absolute Neuts (auto) 5.2, Absolute Lymphs (auto) 2.73, Nucleated RBC % 0 10/08/21 15:20: Sodium 141, Potassium 3.7, Chloride 107, Carbon Dioxide 28.0, Anion Gap 6, BUN 11, Creatinine 0.67, Estim Creat Clear Calc 37.24, Est GFR (MDRD) Af Amer 111, Est GFR (MDRD) Non-Af 92, BUN/Creatinine Ratio 16.5, Glucose 111 H, Calcium 7.9 L, Troponin I High Sens 222 H* 10/08/21 18:20: Troponin I High Sens 278 H* 10/08/21 21:35: Troponin I High Sens 357 H* 10/09/21 00:20: Troponin I High Sens 336 H* 10/09/21 05:44: WBC 10.1, RBC 3.56 L, Hgb 8.8 L, Hct 29.1 L, MCV 81.7, MCH 24.7 L, MCHC 30.2 L, RDW Std Deviation 43.0, RDW Coeff of John 14.5, Plt Count 378, MPV 9.6, Immature Gran % (Auto) 0.400, Neut % (Auto) 65.0, Lymph % (Auto) 24.6, Custer % (Auto) 6.3, Eos % (Auto) 3.1, Baso % (Auto) 0.6, Absolute Neuts (auto) 6.6, Absolute Lymphs (auto) 2.48, Nucleated RBC % 0 10/09/21 05:44: Sodium 143, Potassium 3.2 L, Chloride 109 H, Carbon Dioxide 27.0, Anion Gap 7, BUN 7, Creatinine 0.67, Estim Creat Clear Calc 37.24, Est GFR (MDRD) Af Amer 110, Est GFR (MDRD) Non-Af 91, BUN/Creatinine Ratio 10.4, Glucose 104, Calcium 8.0 L Micro: Microbiology 10/08/21 16:55 Stool Stool Occult Blood (KINZA) - Final Occult Blood Positive Radiology Impression Chest X-Ray 10/08/21 15:35 IMPRESSION: Stable examination. No acute abnormality is seen. Electronically Signed: Gonzales Dowell MD at 15:54 EDT , Chest CTA 10/08/21 17:07 IMPRESSION: 1. No demonstrated pulmonary embolism or arterial dissection. 2. Healing fracture of the left humeral neck region. Electronically Signed: Ethan Everett MD at 18:47 EDT , Carotid Duplex 10/08/21 18:12 Interpretation Summary Irregular plaque at the proximal right internal carotid artery with a significant tortuosity of the right internal carotid artery noted. 50 to 69% stenosis of the right internal carotid artery Less than 50% stenosis right external carotid artery Irregular calcific plaque at the proximal left internal carotid artery with 50 to 69% stenosis. Less than 50% stenosis left external carotid artery Patent and antegrade vertebral arteries bilaterally Slight advancement of disease bilaterally from the previous study of March 19, 2021 Ordering Physician: Abena Dennis Referring Physician: Zully Rojas Performed By: Marilou Freeman RVT Charges/Coding Visit Charges Inpatient E&M: 13305 Init Hosp L2
[2021-10-09] VITALS (16 sets, daily range): BP systolic 118–157; BP diastolic 46–93; PULSE 66–93; RESP 15–18; TEMP 36.3–37.1; O2SAT 92–95; BMI 28.4
--- NOTE | 2021-10-09 | IMM_PTH ---
PATIENT: MAURICE WALLACE LOC: [facility] U#:[id number] AGE/SX: 76/F ROOM: [facility] RE10/08/[address]: Dr. Cruz Roberts MD : 1945 BED: 1 DIS: 10/12/2021 SPEC #: [id number] RECD: 10/11/21 13:11 STATUS: SUKHDEV REParag #: [id number] BELÉN: 10/09/21 00:[address]: Ag Bartlett DEPT: IMMUNOHISTOCHEMISTRY RECD BY: Lynn Martinez ENTERED: 10/11/21 13:13 SP TYPE: IMMUNO OTHR DR: MD Dr. Christian Huntley DO Dr. Nicholas F Kotsonis, MD Dr. Paul Moodispaw, MD Tissues: B - Anal region Procedures: CK20 (add) CK5-6 (add) CK7 (add) KI-67 (add) P16 (add) P53 (add) 34BE12 (add) Pankeratin (initial) P40 (add) PHYSICIAN & INSTITUTION [place] [id number] SPECIMEN INFORMATION: Tissue Source: B ? Anal mass biopsy Clinical Info: Tyrell Specimen Number: [id number] CPT code: 32782, 07329 x8 METHODOLOGY: Deparaffinized sections of prefer/formalin-fixed tissue or PAP/DQ stained slides are incubated with monoclonal/polyclonal antibodies/oligonucleotide probes. Localization is made via biotin free immunoperoxidase method. Appropriate controls are performed and reacted as expected. Results on target cell population are indicated in the following table: RESULTS: ANTIBODY / CLONE RESULT Block B AE1-3 (AE1/AE3/PCK26) positive CK7 (OV-TL12/30) negative CK20 (KS20.8) negative 34BE12 (34BE12) positive CK5-6 (D5 & 1684) positive P40 (BC28) positive P16 (E6H4) positive, block-like, strong intensity P53 (DO-7) negative Ki-67 (30-9) positive, >95% These tests were developed and their performance characteristics determined by [facility]. They may not have been cleared or approved by the U.S. Food and Drug Administration. The FDA has determined that such clearance or approval is not necessary. The above immunohistochemical/dualISH markers are ordered and reviewed by the Pathologist. INTERPRETATION: B. Anal mass, biopsy: Fragments of squamous cell carcinoma. AM:caleb 10/15/2021
--- NOTE | 2021-10-09 | COLBX_PTH ---
PATIENT: MAURIEC WALLACE LOC: [facility] U#:[id number] AGE/SX: 76/F ROOM: [facility] RE10/08/[address]: Dr. Cruz Roberts MD : 1945 BED: 1 DIS: 10/12/2021 SPEC #: [id number] RECD: 10/09/21 13:57 STATUS: SUKHDEV MICHAELS #: [id number] BELÉN: 10/09/21 00:[address]: Ag Bartlett DEPT: SURGICAL PATHOLOGY RECD BY: Melecio Pop ENTERED: 10/10/21 11:06 SP TYPE: COLON BX OTHR DR: MD Dr. Christian Huntley DO Dr. Nicholas F Kotsonis, MD Dr. Paul Moodispaw, MD Tissues: A - Rectum, NOS B - Anal region Procedures: Surgery Specimen Level IV Comments: @ Ordering doctor for SUIV edited from to @ by RGOOD at 10/10/21 1403 @ Submitting doctor edited from to @ by RGOOD at 10/10/21 1403 HEADER OPERATION: Colonoscopy, EGD ([facility]) PRE-OP DIAGNOSIS: Anemia TISSUE SUBMITTED: A ? Rectal polyp biopsy, B ? Anal mass biopsy MICROSCOPIC DIAGNOSIS A. Rectal polyp, biopsy: Hyperplastic polyp. B. Anal mass, biopsy: Squamous cell carcinoma. See comment. AM:caleb 10/11/2021 COMMENT B. Sections show fragments of superficial squamous mucosa with squamous cell carcinoma in situ. Definitive invasion is not identified. Immunohistochemistry ([id number]) supports the above diagnosis. Case has been reviewed in consultation with Dr. Vasquez who concurs with the above diagnosis. IDC:SJ MICROSCOPIC DESCRIPTION Slides are reviewed. GROSS DESCRIPTION A - Received in fixative is one container labeled with the patient's name and designated rectal polyp biopsy. The specimen consists of one irregular fragment of light jaffe soft tissue that measures 0.3 x 0.3 x 0.1 cm. The specimen is totally submitted in one cassette. B - Received in fixative is one container labeled with the patient's name and designated anal mass biopsy. The specimen consists of multiple irregular fragments of light jaffe soft tissue that in aggregate measure 2 x 0.5 x 0.1 cm. The specimen is totally submitted in one cassette. / SJ:rg 10/10/2021 TC:0 [facility]: [id number] x2 ADDENDUM ADDENDUM ADDENDUM ADDENDUM ADDENDUM ADDENDUM ADDENDUM ADDENDUM ADDENDUM ADDENDUM ADDENDUM ADDENDUM 11/22/2021 11:32 ADDENDUM 11/22/2021 11:32 ADDENDUM 11/22/2021 11:32 ADDENDUM 11/22/2021 11:32 ADDENDUM 11/22/2021 11:32 This addendum is added to incorporate an outside pathology consultation report. The case was examined at [facility] (#[id number]) and the following diagnosis was rendered. A. Rectum, polypectomy: Hyperplastic polyp. B. Anal mass, biopsy: At least high-grade squamous intraepithelial lesion (HSIL). Please see complete above mentioned consultation report in EMR
--- NOTE | 2021-10-09 00:02 | NURSING ---
Pt refusing to continue bowel prep regimen. Took dulcolax and half of the miralax bottle. Encouragement and explanation of need for bowel prep explained by two RNs without positive outcome. Pt stated I don't care, I'm not drinking any more of that stuff. MD notified and will continue to encourage bowel prep regimen.
[2021-10-09 01:05] LABS: Troponin-I HS 336 pg/mL (3.0-54.0)
[2021-10-09 05:56] LABS: Absolute Lymphocyte Count 2.48 X10^3/uL (0.83-4.51); Absolute Neutrophil Count 6.6 X10^3/uL (2.0-7.7); Basophil# 0.06 X10^3/uL; Basophil% 0.6 % (0-1); Eosinophil# 0.31 X10^3/uL; Eosinophils% 3.1 % (0-5); Hematocrit 29.1 % (37-47); Hemoglobin 8.8 g/dL (12.0-15.0); Lymphocyte # 2.48 X10^3/ul (0.83-4.51); Lymphocyte % 24.6 % (19-41); Mean Corp Hgb Conc 30.2 g/dL (32-36); Mean Corpuscular Hgb 24.7 pg (27.0-32.0); Mean Corpuscular Volume 81.7 fL (81-99); Mean Platelet Vol. 9.6 fl (6.2-12.0); Monocyte# 0.63 X10^3/uL; Monocyte% 6.3 % (0-10); NRBC Flagged by Analyzer 0 % (0-5); Neutrophil # 6.56 X10^3/uL (2.7-7.7); Platelet Count 378 K/mm3 (150-450); RBC Distribution Width CV 14.5 % (11.6-14.6); Red Blood Count 3.56 M/mm3 (4.2-5.4); White Blood Count 10.1 K/mm3 (4.4-11.0)
[2021-10-09] MEDS: Menthol/Lanolin/Calamine/Znox 113 GM Tube 1 APPLIC TOPICAL ×3 (06:29→21:02)
[2021-10-09] MEDS: Levothyroxine 75 MCG Tablet PO (06:29)
[2021-10-09 06:32] LABS: Anion Gap 7 (5-15); BUN 7 mg/dL (7-18); BUN/Creat Ratio 10.4 RATIO (10-20); Chloride 109 mmol/L (98-107); Creatinine, Serum 0.67 mg/dL (0.55-1.02); EST Glomerular Filtration Rate 91 mL/min (>60); Est Glom Filt Rate - Afr Amer 110 mL/min (>60); Estimated Creatinine Clearance 37.24 ml/min; Glucose 104 mg/dL (74-106); Potassium 3.2 mmol/L (3.5-5.1); Sodium Level 143 mmol/L (136-145)
--- NOTE | 2021-10-09 08:17 | CASEMGMT ---
Patient has a Healthcare Power of Office Services Clerk and a Healthcare Living Will on file at [facility]. Patient's daughter Shyanne is her Healthcare Power of Office Services Clerk. Fern Carrera OPTOMETRIC TECH NIKITA
[2021-10-09] MEDS: Lisinopril 40 MG Tablet PO (09:13)
[2021-10-09] MEDS: buPROPion (SR) 100 MG TABLET.SA PO (09:13)
[2021-10-09] MEDS: Atenolol 50 MG Tablet PO (09:13)
[2021-10-09] MEDS: Aspirin E.C. 81 MG Tablet PO (09:13)
[2021-10-09] MEDS: Citalopram 40 MG TABLET PO (09:13)
[2021-10-09] MEDS: Tolterodine Tartrate 2 MG CAP.SA PO (09:13)
[2021-10-09] MEDS: Gabapentin 100 MG Capsule 200 MG PO ×3 (09:16→21:03)
[2021-10-09] MEDS: LORazepam 1 MG Tablet PO ×3 (09:30→20:02)
--- NOTE | 2021-10-09 09:34 | CASEMGMT ---
According to the [facility] website, the following are in-network tertiary facilities: [facility], [place], [facility], [place], [facility], [facility], [place], [facility], and . Orin LOPEZ CM
--- NOTE | 2021-10-09 10:45 | CASEMGMT ---
JOHN BYRNES Face to Face with patient for initial transition planning/care coordination assessment. JOHN BYRNES introduced self and role at [facility]. Patient lying in bed, alert and oriented. Patient willing to participate in assessment and is able to answer all questions appropriately. Care providers, pharmacy, and demographics verified. Patient wishes to discharge home with resumption of HHC with [facility]. Patient states he has no further needs or concerns at this time. CM to follow for discharge planning needs that may arise. PCP: Specialists: Preferred Pharmacy: Insurance: Prescription Benefit: Living Will/HPOA: yes, daughter Shyanne Kim, HPOA LNOK: daughters Living Arrangements: Patient lives with joséfrienCj ho, in a mobile home with ramp to enter the home. Patient states she was independent at home prior to current hospitalization. Transportation: [employer], Cj DME/HHC: Patient states she has shower chair, cane, grab bars, cpap, electric wheelchair at home. Patient states she needs new hosing for cpap, RN FITZ encouraged patient to reach out to provider to request new tubing, patient voiced understanding and states she will call [facility]. Patient states she is active with [facility] for fci and OT. The patient declined to review a list of other providers and their preference is to continue services with [facility]. Disposition Plan: Patient to discharge home with resumption of HHC, family support, and follow-up plans in place. Marilou VELASQUEZ, RN, CM
--- NOTE | 2021-10-09 10:47 | PCM.PN.HOSP ---
Documented by User: Abena Dennis NP, TIMBER APPRAISER-C 10/09/21 11:02 Subjective Subjective Patient seen and examined. Denies further chest pain. She denies other symptoms or complaints. Awaiting scope for anemia. Discussed plan of care. Objective Data Objective Data Vital Signs: Vital Signs Temp Pulse Resp BP Pulse Ox O2 Del Method 98.4 F 93 16 157/75 H 92 Room Air 10/09/21 06:30 10/09/21 07:00 10/09/21 06:30 10/09/21 06:30 10/09/21 06:30 10/09/21 06:30 Oxygen Delivery Method Room Air Weight: 150 lb 9.211 oz Body Mass Index (BMI) 28.4 Intake & Output: Intake and Output for Last 24 Hours 10/07/21 10/08/21 10/09/21 23:59 23:59 23:59 Intake Total 110 / 110 110 / 110 Balance 110 / 110 110 / 110 Lab / Micro Data Result Diagrams: 10/09/21 05:44 10/09/21 05:44 Labs: Laboratory Results - last 24 hr 10/08/21 15:20: WBC 8.7, RBC 3.44 L, Hgb 8.4 L, Hct 28.7 L, MCV 83.4, MCH 24.4 L, MCHC 29.3 L, RDW Std Deviation 44.4 H, RDW Coeff of John 14.6, Plt Count 350, MPV 9.3, Immature Gran % (Auto) 0.500, Neut % (Auto) 58.9, Lymph % (Auto) 31.2, Churchill % (Auto) 6.2, Eos % (Auto) 2.5, Baso % (Auto) 0.7, Absolute Neuts (auto) 5.2, Absolute Lymphs (auto) 2.73, Nucleated RBC % 0 10/08/21 15:20: Sodium 141, Potassium 3.7, Chloride 107, Carbon Dioxide 28.0, Anion Gap 6, BUN 11, Creatinine 0.67, Estim Creat Clear Calc 37.24, Est GFR (MDRD) Af Amer 111, Est GFR (MDRD) Non-Af 92, BUN/Creatinine Ratio 16.5, Glucose 111 H, Calcium 7.9 L, Troponin I High Sens 222 H* 10/08/21 18:20: Troponin I High Sens 278 H* 10/08/21 21:35: Troponin I High Sens 357 H* 10/09/21 00:20: Troponin I High Sens 336 H* 10/09/21 05:44: WBC 10.1, RBC 3.56 L, Hgb 8.8 L, Hct 29.1 L, MCV 81.7, MCH 24.7 L, MCHC 30.2 L, RDW Std Deviation 43.0, RDW Coeff of John 14.5, Plt Count 378, MPV 9.6, Immature Gran % (Auto) 0.400, Neut % (Auto) 65.0, Lymph % (Auto) 24.6, Churchill % (Auto) 6.3, Eos % (Auto) 3.1, Baso % (Auto) 0.6, Absolute Neuts (auto) 6.6, Absolute Lymphs (auto) 2.48, Nucleated RBC % 0 10/09/21 05:44: Sodium 143, Potassium 3.2 L, Chloride 109 H, Carbon Dioxide 27.0, Anion Gap 7, BUN 7, Creatinine 0.67, Estim Creat Clear Calc 37.24, Est GFR (MDRD) Af Amer 110, Est GFR (MDRD) Non-Af 91, BUN/Creatinine Ratio 10.4, Glucose 104, Calcium 8.0 L Micro: Microbiology 10/08/21 16:55 Stool Stool Occult Blood (KINZA) - Final Occult Blood Positive Radiography Diagnostic Testing: Radiology Impression Chest X-Ray 10/08/21 15:35 IMPRESSION: Stable examination. No acute abnormality is seen. Electronically Signed: Gonzales Dowell MD at 15:54 EDT , Chest CTA 10/08/21 17:07 IMPRESSION: 1. No demonstrated pulmonary embolism or arterial dissection. 2. Healing fracture of the left humeral neck region. Electronically Signed: Ethan Everett MD at 18:47 EDT , Physical Exam Const alert and oriented x3 HEENT normocephalic Mouth: dry mucous membranes Eyes PERRL, EOMs intact bilaterally and conjunctivae normal Neck no lymphadenopathy Resp clear to auscultation bilaterally Auscultation: diminished lung sounds Cardio regular rate, regular rhythm and no murmurs Peripheral Pulses: pulses 2+ throughout GI normal to inspection, nondistended, normoactive bowel sounds, non-tender and non-distended Extremity normal to inspection Skin no rashes or lesions noted Lesions: no lesions Rashes: no rashes Trauma: no lacerations or abrasions Neuro CN's II-XII intact bilaterally, no focal motor deficits, no sensory deficits noted and deep tendon reflexes 2+ bilaterally Psych mental status grossly normal and affect normal Assessment & Plan Assessment/Plan (1) Non-ST elevation (NSTEMI) myocardial infarction: (2) Anemia: PLAN: Plan 1.? Chest pain, elevated troponin-cardiology consulted.? Trend enzymes.? CTA without PE.?Echo pending. Plan for heart cath pending anemia workup. 2. Acute normocytic anemia secondary to GI bleed-GI consulted.? IV PPI twice daily.? Trend H&H.? Stool positive for occult blood. Plan for scope this afternoon. 3. History of TIA/CVA- on aspirin, statin. Plavix on hold. 4. Hypertension-continue atenolol, lisinopril. 5. Hypothyroidism-continue Synthroid. 6. Hyperlipidemia-continue statin. 7. CAD with history of CABG/stents-on aspirin, statin, beta-estefania, lisinopril. Takes Plavix every other day. Currently on hold. 8. COPD-no exacerbation.? As needed albuterol aerosol. 9. Depression/anxiety-on citalopram, bupropion, lorazepam, trazodone.? 10. GERD-continue PPI. 11.? Tobacco dependence-declines nicotine replacement patch.? Encouraged cessation. 12.? Recent left shoulder fracture-following with orthopedic medicine.? Nonoperative management. 13. JAIME- on cpap. DVT prophylaxis-SCDs This patient was seen by ROSA Velazquez under the supervision of Dr. Roberts. Time spent examining patient, reviewing data and subsequent management of care: 15 minutes Documented by User: Dr. Cruz Roberts MD 10/09/21 15:04 Objective Data Lab / Micro Data Result Diagrams: 10/09/21 05:44 10/09/21 05:44 Assessment & Plan Assessment/Plan (1) Non-ST elevation (NSTEMI) myocardial infarction: (2) Anemia: Charges/Coding Addendum Addendum: Addendum: Dr. Roberts I personally examined the patient and reviewed the chart. I agree with the above. 76-year-old female presented to the hospital with chest pain and anemia. She was found to test positive for blood in her stool so prior to having her non-STEMI worked up, she had to have an EGD and a colonoscopy which she should be having this afternoon. Once that is over with and any treatment was provided then we can likely proceed with cardiac work-up. At this time her chest pain has resolved. Clinical time spent in all aspects of patient care: 20 minutes Visit Charges Inpatient E&M: 52948 Subs Hosp L3
--- NOTE | 2021-10-09 12:02 | NURSING ---
patient transferred off floor to endo via endo staff
[2021-10-09] MEDS: Lactated Ringers 1,000 ML 15 ML IV (12:05)
--- NOTE | 2021-10-09 14:20 | OP.EGD_ITS ---
Patient Name: Charissa Kim Procedure Date: 10/09/2021 1:03 PM Date of : 1945 Age: 76 Procedure: Upper GI endoscopy Indications: Acute post hemorrhagic anemia Providers: Ag Bartlett DO Medicines: Propofol per Anesthesia Patient Profile: This is a 76 year old female. Refer to note in patient chart for documentation of history and physical. Patient has symptoms of acute abdominal cramping and acute epigastric abdominal pain. Complications: No immediate complications. Procedure: Pre-Anesthesia Assessment: - Prior to the procedure, a History and Physical was performed, and patient medications and allergies were reviewed. The patient is competent. The risks and benefits of the procedure and the sedation options and risks were discussed with the patient. All questions were answered and informed consent was obtained. Patient identification and proposed procedure were verified by the physician in the pre-procedure area. Mental Status Examination: alert and oriented. Airway Examination: normal oropharyngeal airway and neck mobility. Respiratory Examination: clear to auscultation. CV Examination: normal. Prophylactic Antibiotics: The patient does not require prophylactic antibiotics. Prior Anticoagulants: The patient has taken no previous anticoagulant or antiplatelet agents. ASA Grade Assessment: II - A patient with mild systemic disease. After reviewing the risks and benefits, the patient was deemed in satisfactory condition to undergo the procedure. The anesthesia plan was to use moderate sedation / analgesia (conscious sedation). Immediately prior to administration of medications, the patient was re-assessed for adequacy to receive sedatives. The heart rate, respiratory rate, oxygen saturations, blood pressure, adequacy of pulmonary ventilation, and response to care were monitored throughout the procedure. The physical status of the patient was re-assessed after the procedure. After obtaining informed consent, the endoscope was passed under direct vision. Throughout the procedure, the patient's blood pressure, pulse, and oxygen saturations were monitored continuously. The was introduced through the mouth, and advanced to the second part of duodenum. The upper GI endoscopy was accomplished without difficulty. The patient tolerated the procedure well. Scope In: 1:14:55 PM Scope Out: 1:17:24 PM Total Procedure Duration Time 0 hours 2 minutes 29 seconds Findings: The examined esophagus was normal. A medium-sized hiatal hernia was present. The second portion of the duodenum was normal. Impression: - Normal esophagus. - Medium-sized hiatal hernia. - Normal second portion of the duodenum. - No specimens collected. Recommendation: - Discharge patient to home. - Resume previous diet. - Continue present medications. Procedure Code(s): --- Professional --- 01717, Esophagogastroduodenoscopy, flexible, transoral; diagnostic, including collection of specimen(s) by brushing or washing, when performed (separate procedure) CPT copyright 2017 [employer]. All rights reserved. The codes documented in this report are preliminary and upon medical billing coder review may be revised to meet current compliance requirements. Ag Bartlett DO 10/09/2021 2:20:21 PM This report has been signed electronically. Number of Addenda: 1 Note Initiated On: 10/09/2021 1:03 PM Addendum Number: 1 Addendum Date: 11/14/2021 5:55:58 AM MAC was used as sedation for this procedure. Ag Bartlett DO 11/14/2021 5:56:06 AM This report has been signed electronically.
--- NOTE | 2021-10-09 14:21 | OP.CCLET_ITS ---
11/14/2021 Zully Rojas [address] [place] [address] Re : Upper GI endoscopy procedure for Charissa Kim Dear Dr. Rojas This procedure was performed on Saturday, October 09, 2021. My impressions and recommendations are as follows: Impressions : - Normal esophagus. - Medium-sized hiatal hernia. - Normal second portion of the duodenum. - No specimens collected. Recommendations : - Discharge patient to home. - Resume previous diet. - Continue present medications. My findings are described in the full procedure note, which is enclosed. If I can be of further assistance, please feel free to contact me at . Sincerely, Ag Bartlett DO 10/09/2021 2:20:21 PM This report has been signed electronically.
--- NOTE | 2021-10-09 14:29 | CHAPLAIN ---
Type of Pastoral Visit ___ Initial Visit ___ Follow-up Visit ___ On-call Visit ___ General Patient Visit ___ Spiritual Assessment ___ Family Conference ___ Bereavement ___ Rapid Response ___ Code Blue ___ Other (describe below) Pastoral Care Referral From ___ Patient ___ Family ___ Nurse ___ Physician ___ Psychiatric Specialist ___ Ladle Repairman ___ Other (describe below) Sacrament/Intervention ___ Active listening ___ Anointing ___ Caodaism ___ Bereavement ___ Communion ___ Analia exploration ___ ___ Life review ___ Prayer ___ Reconciliation ___ Sacrament of Sick ___ Supportive presence ___ Wedding ___ Other (describe below) Pastoral Comments patient and bed are not in room; left a calling card
--- NOTE | 2021-10-09 14:31 | OP.COLON_ITS ---
Patient Name: Charissa Kim Procedure Date: 10/09/2021 1:17 PM Date of : 1945 Age: 76 Procedure: Colonoscopy Indications: Anal bleeding Providers: Ag Bartlett DO Medicines: Monitored Anesthesia Care Patient Profile: This is a 76 year old female. Refer to note in patient chart for documentation of history and physical. Patient has symptoms of acute abdominal cramping and acute epigastric abdominal pain. Last Colonoscopy: date unknown. Unable to locate last colonoscopy report. Complications: No immediate complications. Procedure: Pre-Anesthesia Assessment: - Prior to the procedure, a History and Physical was performed, and patient medications and allergies were reviewed. The patient is competent. The risks and benefits of the procedure and the sedation options and risks were discussed with the patient. All questions were answered and informed consent was obtained. Patient identification and proposed procedure were verified by the physician in the pre-procedure area. Mental Status Examination: alert and oriented. Airway Examination: normal oropharyngeal airway and neck mobility. Respiratory Examination: clear to auscultation. CV Examination: normal. Prophylactic Antibiotics: The patient does not require prophylactic antibiotics. Prior Anticoagulants: The patient has taken no previous anticoagulant or antiplatelet agents. ASA Grade Assessment: II - A patient with mild systemic disease. After reviewing the risks and benefits, the patient was deemed in satisfactory condition to undergo the procedure. The anesthesia plan was to use moderate sedation / analgesia (conscious sedation). Immediately prior to administration of medications, the patient was re-assessed for adequacy to receive sedatives. The heart rate, respiratory rate, oxygen saturations, blood pressure, adequacy of pulmonary ventilation, and response to care were monitored throughout the procedure. The physical status of the patient was re-assessed after the procedure. After I obtained informed consent, the scope was passed under direct vision. Throughout the procedure, the patient's blood pressure, pulse, and oxygen saturations were monitored continuously. The colonoscope was introduced through the anus and advanced to the cecum, identified by appendiceal orifice and ileocecal valve. The colonoscopy was performed without difficulty. The patient tolerated the procedure well. The quality of the bowel preparation was good. Scope In: 1:21:49 PM Scope Withdrawal Time 0 hours 13 minutes 25 seconds Scope Out: 1:40:36 PM Total Procedure Duration Time 0 hours 18 minutes 47 seconds Findings: Hemorrhoids were found on perianal exam. A 5 mm polyp was found in the rectum. The polyp was sessile. The polyp was removed with a cold biopsy forceps. Resection and retrieval were complete. This was biopsied with a cold snare for histology. Verification of patient identification for the specimen was done. Estimated blood loss was minimal. Two small patchy angiodysplastic lesions with bleeding were found at the splenic flexure. Coagulation for hemostasis using heater probe was successful. Estimated blood loss was minimal. Many large-mouthed diverticula were found in the recto-sigmoid colon and sigmoid colon. There was no evidence of diverticular bleeding. Moderate inflammation characterized by erosions, erythema and friability was found in the recto-sigmoid colon. A frond-like/villous non-obstructing medium-sized mass was found at the anus. The mass was non-circumferential. The mass measured three cm in length. In addition, its diameter measured four mm. Oozing was present. This was biopsied with a cold forceps for histology. Verification of patient identification for the specimen was done. Estimated blood loss was minimal. Impression: - Hemorrhoids found on perianal exam. - One 5 mm polyp in the rectum, removed with a cold biopsy forceps. Resected and retrieved. Biopsied. - Two bleeding colonic angiodysplastic lesions. Treated with a heater probe. - Severe diverticulosis in the recto-sigmoid colon and in the sigmoid colon. There was no evidence of diverticular bleeding. - Moderate inflammation was found in the recto-sigmoid colon secondary to ischemic colitis. - Rule out malignancy, tumor at the anus. Biopsied. Recommendation: - Discharge patient to home. - Resume previous diet. - Continue present medications. - Await pathology results. - Repeat colonoscopy is recommended. The colonoscopy date will be determined after pathology results from today's exam become available for review. Procedure Code(s): --- Professional --- 64955, 59, Colonoscopy, flexible; with control of bleeding, any method 05718, Colonoscopy, flexible; with removal of tumor(s), polyp(s), or other lesion(s) by snare technique 51071, 59, Colonoscopy, flexible; with biopsy, single or multiple CPT copyright 2017 [employer]. All rights reserved. The codes documented in this report are preliminary and upon rasper machine operator review may be revised to meet current compliance requirements. Ag Bartlett DO 10/09/2021 2:30:57 PM This report has been signed electronically. Number of Addenda: 1 Note Initiated On: 10/09/2021 1:17 PM Addendum Number: 1 Addendum Date: 11/14/2021 5:56:15 AM MAC was used as sedation for this procedure. Ag Bartlett DO 11/14/2021 5:56:25 AM This report has been signed electronically.
--- NOTE | 2021-10-09 14:32 | OP.CCLET_ITS ---
11/14/2021 Zully Rojas [address] [place] [address] Re : Colonoscopy procedure for Charissa Kim Dear Dr. Rojas This procedure was performed on Saturday, October 09, 2021. My impressions and recommendations are as follows: Impressions : - Hemorrhoids found on perianal exam. - One 5 mm polyp in the rectum, removed with a cold biopsy forceps. Resected and retrieved. Biopsied. - Two bleeding colonic angiodysplastic lesions. Treated with a heater probe. - Severe diverticulosis in the recto-sigmoid colon and in the sigmoid colon. There was no evidence of diverticular bleeding. - Moderate inflammation was found in the recto-sigmoid colon secondary to ischemic colitis. - Rule out malignancy, tumor at the anus. Biopsied. Recommendations : - Discharge patient to home. - Resume previous diet. - Continue present medications. - Await pathology results. - Repeat colonoscopy is recommended. The colonoscopy date will be determined after pathology results from today's exam become available for review. My findings are described in the full procedure note, which is enclosed. If I can be of further assistance, please feel free to contact me at . Sincerely, Ag Bartlett, 10/09/2021 2:30:57 PM This report has been signed electronically.
[2021-10-09] MEDS: Potassium Chloride Oral Tablet 20 MEQ 40 MEQ PO (14:48)
--- NOTE | 2021-10-09 17:09 | PCM.PN.CARD ---
Subjective Subjective Patient is status post endoscopy procedures without obvious cardiovascular complication. She has had no new acute cardiovascular complaints. Objective Data Vital Signs: Vital Signs Temp Pulse Resp BP Pulse Ox O2 Del Method 98.0 F 85 15 144/74 H 94 Room Air 10/09/21 16:05 10/09/21 16:05 10/09/21 16:05 10/09/21 16:05 10/09/21 16:05 10/09/21 16:05 Oxygen Delivery Method Room Air Weight: 150 lb 9.211 oz Body Mass Index (BMI) 28.4 Intake & Output: Intake and Output for Last 24 Hours 10/07/21 10/08/21 10/09/21 23:59 23:59 23:59 Intake Total 110 / 110 155.75 / 155.75 Balance 110 / 110 155.75 / 155.75 Lab / Micro Data Result Diagrams: 10/09/21 05:44 10/09/21 05:44 Labs: Laboratory Results - last 24 hr 10/08/21 18:20: Troponin I High Sens 278 H* 10/08/21 21:35: Troponin I High Sens 357 H* 10/09/21 00:20: Troponin I High Sens 336 H* 10/09/21 05:44: WBC 10.1, RBC 3.56 L, Hgb 8.8 L, Hct 29.1 L, MCV 81.7, MCH 24.7 L, MCHC 30.2 L, RDW Std Deviation 43.0, RDW Coeff of John 14.5, Plt Count 378, MPV 9.6, Immature Gran % (Auto) 0.400, Neut % (Auto) 65.0, Lymph % (Auto) 24.6, [place] % (Auto) 6.3, Eos % (Auto) 3.1, Baso % (Auto) 0.6, Absolute Neuts (auto) 6.6, Absolute Lymphs (auto) 2.48, Nucleated RBC % 0 10/09/21 05:44: Sodium 143, Potassium 3.2 L, Chloride 109 H, Carbon Dioxide 27.0, Anion Gap 7, BUN 7, Creatinine 0.67, Estim Creat Clear Calc 37.24, Est GFR (MDRD) Af Amer 110, Est GFR (MDRD) Non-Af 91, BUN/Creatinine Ratio 10.4, Glucose 104, Calcium 8.0 L Micro: Microbiology 10/08/21 16:55 Stool Stool Occult Blood (KINZA) - Final Occult Blood Positive Cardiology Labs/Tests 10/09/21 05:44: WBC 10.1, RBC 3.56 L, Hgb 8.8 L, Hct 29.1 L, MCV 81.7, MCH 24.7 L, MCHC 30.2 L, Plt Count 378, MPV 9.6, Immature Gran % (Auto) 0.400, Neut % (Auto) 65.0, Lymph % (Auto) 24.6, [place] % (Auto) 6.3, Eos % (Auto) 3.1, Baso % (Auto) 0.6, Absolute Neuts (auto) 6.6, Nucleated RBC % 0 10/09/21 05:44: Sodium 143, Potassium 3.2 L, Chloride 109 H, Carbon Dioxide 27.0, Anion Gap 7, BUN 7, Creatinine 0.67, Est GFR (MDRD) Af Amer 110, Est GFR (MDRD) Non-Af 91, BUN/Creatinine Ratio 10.4, Glucose 104, Calcium 8.0 L Rhythm: Sinus rhythm Radiography Diagnostic Testing: Radiology Impression Chest CTA 10/08/21 17:07 IMPRESSION: 1. No demonstrated pulmonary embolism or arterial dissection. 2. Healing fracture of the left humeral neck region. Electronically Signed: Ethan Everett MD at 18:47 EDT Reading Location ID and State: [facility]– [place] / [place] , Service support , Carotid Duplex 10/08/21 18:12 Interpretation Summary Irregular plaque at the proximal right internal carotid artery with a significant tortuosity of the right internal carotid artery noted. 50 to 69% stenosis of the right internal carotid artery Less than 50% stenosis right external carotid artery Irregular calcific plaque at the proximal left internal carotid artery with 50 to 69% stenosis. Less than 50% stenosis left external carotid artery Patent and antegrade vertebral arteries bilaterally Slight advancement of disease bilaterally from the previous study of March 19, 2021 Ordering Physician: Abena Dennis Referring Physician: Zully Rojas Performed By: Marilou Freeman, RVT Echocardiogram 10/08/21 18:38 Interpretation Summary The study was technically difficult. Segmental dysfunction with preserved ejection fraction (see wall motion). The estimated ejection fraction is 55 %. The left atrium is moderately enlarged. Moderate (2+) mitral valve insufficiency. Mild tricuspid valve insufficiency. Mild diffuse aortic valve thickening. Right ventricular systolic pressure estimated to be 44 mmHg. Stage 2 diastolic dysfunction. Ordering Physician: Abena Dennis Referring Physician: Zully Rojas Performed By: Janna Lala RDCS, RVT Physical Exam Const alert, oriented x3 and no apparent distress Orientation / Consciousness: awake HEENT normocephalic, head/scalp atraumatic and hearing grossly normal bilaterally Eyes PERRL, EOMs intact bilaterally, conjunctivae normal and no scleral icterus Neck full ROM, supple and no JVD Carotids: normal carotid upstroke and bruit Positive for bilateral Chest Chest: midline sternotomy incision Resp normal respiratory effort and clear to auscultation bilaterally Cardio regular rate, regular rhythm, S1 normal heart sound and S2 normal heart sound GI normal to inspection, nondistended, normoactive bowel sounds Extremity no pedal edema Skin no rashes or lesions noted Psych mental status grossly normal Assessment & Plan Assessment/Plan (1) Non-ST elevation (NSTEMI) myocardial infarction: PLAN: The patient presents with symptoms and objective findings concerning for her underlying CAD process with an acute coronary syndrome and a non-ST segment elevation [place]. The patient will continue to be monitored. She will continue medical therapy as deemed appropriate. She has undergone further evaluation with a transthoracic echocardiogram with the results as noted. She has also undergone upper and lower endoscopy procedure. Based upon the reports and input from gastroenterology it appears that she can continue medical therapy such as antiplatelet therapy if needed and proceed with further invasive cardiovascular evaluation. Thus, based upon her clinical scenario and cardiac enzymes she will proceed with upcoming diagnostic cardiac catheterization procedure. This has been discussed with her with respect to the procedure and risks and she is agreeable to this approach. (2) CAD (coronary artery disease): PLAN: The patient has an extensive history of CAD. She has been evaluated at multiple medical centers. She has undergone cardiac catheterization and PCI at multiple medical centers. She has undergone remote CABG. At the present time she will continue medical management and proceed with further evaluation with diagnostic cardiac catheterization as noted. (3) History of coronary artery stent placement: PLAN: The patient has had PCI performed at [facility] and [facility]. Her previous studies are noted. At the moment she will continue medical therapy. She will continue with plans for upcoming diagnostic cardiac catheterization. (4) History of coronary artery bypass graft x 3: PLAN: Based upon the patient's previous cardiac catheterization procedures she has had 3 bypass grafts placed. Based upon the results of her previous cardiac catheterization procedures only her SY graft is patent with the 2 SVG grafts (to the OM and the RCA respectively) being occluded. (5) Carotid artery stenosis: PLAN: The patient does have bilateral carotid artery bruits. She has a history of carotid artery stenosis. She has been evaluated noninvasively by carotid artery duplex study, CTA, and MRA. At the present time it may be reasonable to reassess her carotid artery anatomy/physiology for any significant progression of disease compared to her previous studies. (6) Hyperlipidemia: QUALIFIERS: Hyperlipidemia type: pure hypercholesterolemia Qualified Code(s): E78.00 - Pure hypercholesterolemia, unspecified; E78.0 - Pure hypercholesterolemia PLAN: She should continue lipid-lowering therapy. (7) Essential (primary) hypertension: PLAN: Her blood pressure does need to be followed. Her medications can be adjusted as needed. (8) Anemia: PLAN: Her hemoglobin has decreased over the last 4 months as noted above. She does admit to bright red blood per rectum. She has undergone upper and lower endoscopy procedures. The results are noted. At the present time she will continue her cardiac evaluation. It appears that she may require further gastrointestinal evaluation depending upon the results of her biopsies. Addt'l Comments This note was generated using a voice recognition system and there may be incorrect words, spelling or punctuation that were not noted when reviewing the office note prior to saving. Procedure Criteria Type of Procedure Procedure Type: Elective Elective Risks - COVID COVID Risk Discussion: The surgeon/proceduralist and patient have discussed in detail the risk of exposure to and/or potential harm posed by the COVID-19 virus with having a surgery/procedure at this time versus the risk of delaying the surgery/procedure. It is not possible to know either the risk of delaying the surgery or procedure or chance of getting an infection with perfect accuracy, but a joint decision was made between the patient and the surgeon/proceduralist to proceed at this time with the scheduled surgery/procedure as indicated on the consent form.
[2021-10-09] MEDS: traZODone 100 MG Tablet PO (21:02)
[2021-10-09] MEDS: Atorvastatin Calcium 40 MG Tablet PO (21:03)
[2021-10-09] MEDS: MELATONIN 10 MG TABLET 5 MG PO (22:51)
[2021-10-10] VITALS (15 sets, daily range): BP systolic 129–176; BP diastolic 57–86; PULSE 62–74; RESP 14–18; TEMP 36.4–37.2; O2SAT 92–100
--- NOTE | 2021-10-10 05:55 | EKG12_ITS ---
Test Reason : CP Blood Pressure : / mmHG Vent. Rate : 067 BPM Atrial Rate : 067 BPM P-R Int : 232 ms QRS Dur : 090 ms QT Int : 454 ms P-R-T Axes : 071 060 -81 degrees QTc Int : 479 ms Sinus rhythm with 1st degree A-V block ST & T wave abnormality, consider lateral ischemia Prolonged QT Abnormal ECG When compared with ECG of 10-OCT-2021 14:07, MANUAL COMPARISON REQUIRED, DATA IS UNCONFIRMED Confirmed by MINE GOLD, GOPAL ([id number]), department editor WALLY LOAIZA ([id number]) on 10/11/2021 2:17:38 PM Referred By: Confirmed By:BRAN BLOUNT MD
[2021-10-10] MEDS: Atenolol 50 MG Tablet PO (05:58)
[2021-10-10] MEDS: Levothyroxine 75 MCG Tablet PO (05:58)
[2021-10-10] MEDS: Aspirin E.C. 81 MG Tablet PO (05:58)
[2021-10-10] MEDS: Menthol/Lanolin/Calamine/Znox 113 GM Tube 1 APPLIC TOPICAL ×3 (05:58→21:40)
[2021-10-10 06:01] LABS: Absolute Lymphocyte Count 2.11 X10^3/uL (0.83-4.51); Absolute Neutrophil Count 5.7 X10^3/uL (2.0-7.7); Basophil# 0.04 X10^3/uL; Basophil% 0.5 % (0-1); Eosinophil# 0.28 X10^3/uL; Eosinophils% 3.2 % (0-5); Hematocrit 28.7 % (37-47); Hemoglobin 8.5 g/dL (12.0-15.0); Lymphocyte # 2.11 X10^3/ul (0.83-4.51); Lymphocyte % 24.3 % (19-41); Mean Corp Hgb Conc 29.6 g/dL (32-36); Mean Corpuscular Hgb 24.9 pg (27.0-32.0); Mean Corpuscular Volume 84.2 fL (81-99); Mean Platelet Vol. 10.9 fl (6.2-12.0); Monocyte# 0.49 X10^3/uL; Monocyte% 5.6 % (0-10); NRBC Flagged by Analyzer 0 % (0-5); Neutrophil # 5.73 X10^3/uL (2.7-7.7); Neutrophil % 66.1 % (47-70); POSITIVE COUNT YES; Platelet Count 291 K/mm3 (150-450); RBC Distribution Width CV 14.5 % (11.6-14.6); RBC Distribution Width SD 44.4 fl (35.1-43.9); Red Blood Count 3.41 M/mm3 (4.2-5.4); White Blood Count 8.7 K/mm3 (4.4-11.0)
[2021-10-10 06:02] LABS: Differential Indicated SCAN CRITERIA MET
[2021-10-10 06:19] LABS: Differential Comment SCANNED; Platelet Estimate ADEQUATE (ADEQ)
[2021-10-10 06:44] LABS: Anion Gap 3 (5-15); BUN 11 mg/dL (7-18); BUN/Creat Ratio 14.1 RATIO (10-20); Calcium,Total 8.1 mg/dL (8.5-10.1); Chloride 112 mmol/L (98-107); Creatinine, Serum 0.78 mg/dL (0.55-1.02); EST Glomerular Filtration Rate 77 mL/min (>60); Est Glom Filt Rate - Afr Amer 93 mL/min (>60); Estimated Creatinine Clearance 37.24 ml/min; Glucose 122 mg/dL (74-106); Potassium 3.7 mmol/L (3.5-5.1); Sodium Level 142 mmol/L (136-145)
[2021-10-10] MEDS: Gabapentin 100 MG Capsule 200 MG PO ×4 (07:57→21:41)
[2021-10-10] MEDS: LORazepam 1 MG Tablet PO ×4 (07:57→20:22)
[2021-10-10] MEDS: Lisinopril 40 MG Tablet PO (08:00)
--- NOTE | 2021-10-10 08:53 | NURSING ---
Called report to in record label intern
--- NOTE | 2021-10-10 10:12 | CL.D_ITS ---
Patient Name: MAURICE WALLACE Study Date: 10/10/2021 Performing: Kingsley Valera MD Ht: 61 inches 154.94 cm : 1945 Wt: 150.58 lbs 68.3 kg Age: 76 Gender: female BSA: 1.67 PROCEDURE(S) PERFORMED [id number]-(50020)LHC/COR/CABG CLINICAL PROFILE AND INDICATIONS Indications: ACS > 24 hrs, Suspected CAD Heart Failure: None Angina Classification Anginal Classification w/in 2 Weeks: CCS III CAD Presentations: Non-STEMI. CONCLUSIONS Elevated Left Ventricular End Diastolic Pressure [place] Multivessel CAD RECOMMENDATIONS Risk factor modification Medical therapy Referred for immediate PCI Case discussed / reviewed with Dr. Wilcox of Interventional Cardiology DESCRIPTION OF PROCEDURE The patient arrived to the procedure lab. The risks and benefits of the procedure as well as a full description of our services here and current unavailability of surgical backup were fully explained to the patient and/or their significant other prior to the catheterization. The Timeout was completed, verifying the correct patient and procedure. The patient's procedural site was prepped and draped in the usual fashion. Local anesthetic was given subcutaneously to right groin region with Lidocaine 2%. Using a modified Seldinger technique, arterial access was obtained via the right femoral artery, a 4Fr sheath was inserted Left Coronary Artery selective angiography was performed in multiple views using a 4 Fr. JL5 catheter. Right Coronary Artery selective angiography was then performed in multiple views using a 4 Fr. 3DRC catheter. Left internal mammary artery graft to the LAD selective angiography was performed in multiple views using a 4 Fr. 3DRC catheter. Left Ventriculography was performed in BEARD projection using a 4 Fr. Pigtail catheter. LV to AO pullback pressures were then recorded. CORONARY ANGIOGRAPHY DOMINANCE: Right Dominant LEFT HEART ASSESSMENT Left Ventricular Ejection Fraction: Not assessed Elevated Left Ventricular End Diastolic Pressure LVEDP: 35 mmHg LEFT MAIN: Angiographically normal LEFT ANTERIOR DESCENDING ARTERY: OSTIAL LAD: Previously placed stent is occluded MID LAD: to distal: filling from the SY graft with no angiographically significant appearing disease distal to the graft attachment CIRCUMFLEX ARTERY: MID CIRC: Previously placed stent has an instent 99 % restenosis RIGHT CORONARY ARTERY: PROX RCA: 75 % Stenosis, Previously placed stent has an instent 85 % restenosis MID RCA: Previously placed stent has an instent 75 % restenosis COMPLICATIONS PROCEDURE MEDICATIONS Versed 1 mg IV Versed 1 mg IV Oxygen: 2 L/min via nasal cannula Brilinta 180 mg PO @ 10/10/2021 10:05:30 Heparin 4000 unit(s) IV 10/10/2021 10:07:34 SUMMARY OF HEMODYNAMIC DATA Time AIR REST ECG 09:05:40 AO 178/81 (117) SA 09:37:35 LV 181/11, 48 09:46:01 LV 181/11, 35 09:46:09 LVp 189/6, 41 09:46:16 AOp 186/18 (97) 09:46:23 Signed By Kingsley Valera MD On 10/10/2021 10:11:19 Kingsley Valera MD
--- NOTE | 2021-10-10 11:41 | PN.CARD_ITS ---
Subjective Subjective The patient is now status post diagnostic cardiac catheterization/PCI procedure. She appears to be without acute cardiovascular complaint. Objective Data Vital Signs: Vital Signs Temp Pulse Resp BP Pulse Ox O2 Del Method 97.6 F L 70 16 149/64 H 93 Room Air 10/10/21 07:51 10/10/21 07:51 10/10/21 07:51 10/10/21 07:51 10/10/21 07:51 10/10/21 08:00 Oxygen Delivery Method Room Air Weight: 150 lb 9.211 oz Body Mass Index (BMI) 28.4 Intake & Output: Intake and Output for Last 24 Hours 10/08/21 10/09/21 10/10/21 23:59 23:59 23:59 Intake Total 110 / 110 265.75 / 265.75 Balance 110 / 110 265.75 / 265.75 Lab / Micro Data Result Diagrams: 10/10/21 05:36 10/10/21 05:36 Labs: Laboratory Results - last 24 hr 10/10/21 05:36: WBC 8.7, RBC 3.41 L, Hgb 8.5 L, Hct 28.7 L, MCV 84.2, MCH 24.9 L , MCHC 29.6 L, RDW Std Deviation 44.4 H, RDW Coeff of John 14.5, Plt Count 291, MPV 10.9, Immature Gran % (Auto) 0.300, Neut % (Auto) 66.1, Lymph % (Auto) 24.3, [place] % (Auto) 5.6, Eos % (Auto) 3.2, Baso % (Auto) 0.5, Absolute Neuts (auto) 5.7, Absolute Lymphs (auto) 2.11, Nucleated RBC % 0, Differential Comment SCANNED, Platelet Estimate ADEQUATE 10/10/21 05:36: Sodium 142, Potassium 3.7, Chloride 112 H, Carbon Dioxide 27.0, Anion Gap 3 L, BUN 11, Creatinine 0.78, Estim Creat Clear Calc 37.24, Est GFR (MDRD) Af Amer 93, Est GFR (MDRD) Non-Af 77, BUN/Creatinine Ratio 14.1, Glucose 122 H, Calcium 8.1 L Cardiology Labs/Tests 10/10/21 05:36: WBC 8.7, RBC 3.41 L, Hgb 8.5 L, Hct 28.7 L, MCV 84.2, MCH 24.9 L , MCHC 29.6 L, Plt Count 291, MPV 10.9, Immature Gran % (Auto) 0.300, Neut % (Auto) 66.1, Lymph % (Auto) 24.3, [place] % (Auto) 5.6, Eos % (Auto) 3.2, Baso % (Auto) 0.5, Absolute Neuts (auto) 5.7, Nucleated RBC % 0 10/10/21 05:36: Sodium 142, Potassium 3.7, Chloride 112 H, Carbon Dioxide 27.0, Anion Gap 3 L, BUN 11, Creatinine 0.78, Est GFR (MDRD) Af Amer 93, Est GFR (MDRD) Non-Af 77, BUN/Creatinine Ratio 14.1, Glucose 122 H, Calcium 8.1 L Rhythm: Sinus rhythm; 1 episode compatible with nonsustained ventricular tachycardia Cardiac Cath: CONCLUSIONS Elevated Left Ventricular End Diastolic Pressure [place] Multivessel CAD RECOMMENDATIONS Risk factor modification Medical therapy Referred for immediate PCI Case discussed / reviewed with Dr. Wilcox of Interventional Cardiology DESCRIPTION OF? PROCEDURE The patient arrived to the procedure lab. The risks and benefits of the procedure as well as a full description of our services here and current unavailability of surgical backup were fully explained to the patient and/or their significant other prior to the catheterization. The Timeout was completed, verifying the correct patient and procedure. The patient's procedural site was prepped and draped in the usual fashion. Local anesthetic was given subcutaneously to right groin region with Lidocaine 2%. Using a modified Seldinger technique, arterial access was obtained via the right femoral artery, a 4Fr sheath was inserted? Left Coronary Artery selective angiography was performed in multiple views using a 4 Fr. JL5 catheter. Right Coronary Artery selective angiography was then performed in multiple views using a 4 Fr. 3DRC catheter. Left internal mammary artery graft to the LAD selective angiography was performed in multiple views using a 4 Fr. 3DRC catheter. Left Ventriculography was performed in BEARD projection using a 4 Fr. Pigtail catheter. LV to AO pullback pressures were then recorded. CORONARY ANGIOGRAPHY DOMINANCE:? Right Dominant LEFT HEART ASSESSMENT Left Ventricular Ejection Fraction: Not assessed Elevated Left Ventricular End Diastolic Pressure LVEDP: 35 mmHg LEFT MAIN: Angiographically normal LEFT ANTERIOR DESCENDING ARTERY: OSTIAL LAD: Previously placed stent is occluded MID LAD: to distal: filling from the SY graft with no angiographically significant appearing disease distal to the graft attachment CIRCUMFLEX ARTERY: MID CIRC: Previously placed stent has an instent 99 % restenosis RIGHT CORONARY ARTERY: PROX RCA: 75 % Stenosis, Previously placed stent has an instent 85 % restenosis MID RCA: Previously placed stent has an instent 75 % restenosis Radiography Diagnostic Testing: Radiology Impression Carotid Duplex 10/08/21 18:12 Interpretation Summary Irregular plaque at the proximal right internal carotid artery with a significant tortuosity of the right internal carotid artery noted. 50 to 69% stenosis of the right internal carotid artery Less than 50% stenosis right external carotid artery Irregular calcific plaque at the proximal left internal carotid artery with 50 to 69% stenosis. Less than 50% stenosis left external carotid artery Patent and antegrade vertebral arteries bilaterally Slight advancement of disease bilaterally from the previous study of March 19, 2021 Ordering Physician: Abena Dennis Referring Physician: Zully Rojas Performed By: Marilou Freeman RVT Echocardiogram 10/08/21 18:38 Interpretation Summary The study was technically difficult. Segmental dysfunction with preserved ejection fraction (see wall motion). The estimated ejection fraction is 55 %. The left atrium is moderately enlarged. Moderate (2+) mitral valve insufficiency. Mild tricuspid valve insufficiency. Mild diffuse aortic valve thickening. Right ventricular systolic pressure estimated to be 44 mmHg. Stage 2 diastolic dysfunction. Ordering Physician: Abena Dennis Referring Physician: Zully Rojas Performed By: Janna Lala RDCS, RVT Physical Exam Const alert, oriented x3 and no apparent distress Orientation / Consciousness: awake HEENT normocephalic, head/scalp atraumatic and hearing grossly normal bilaterally Eyes PERRL, EOMs intact bilaterally, conjunctivae normal and no scleral icterus Neck full ROM, supple and no JVD Carotids: normal carotid upstroke and bruit Positive for bilateral Chest Chest: midline sternotomy incision Resp normal respiratory effort and clear to auscultation bilaterally Cardio regular rate, regular rhythm, S1 normal heart sound and S2 normal heart sound GI normal to inspection, nondistended, normoactive bowel sounds Extremity no pedal edema Skin no rashes or lesions noted Psych mental status grossly normal Assessment & Plan Assessment/Plan (1) Non-ST elevation (NSTEMI) myocardial infarction: PLAN: The patient presents with symptoms and objective findings concerning for her underlying CAD process with an acute coronary syndrome and a non-ST segment elevation [place]. The patient will continue to be monitored. She will continue medical therapy as deemed appropriate. She has undergone further evaluation with a transthoracic echocardiogram with the results as noted. She has undergone further evaluation with diagnostic cardiac catheterization. This demonstrated her SY to the LAD to be patent, the LCx stent to have angiographically significant in-stent restenosis, the RCA stent to have angiog raphically significant in-stent restenosis, and her previous SVG grafts are noted to be chronically occluded. She has subsequently proceeded with PCI of the LCx and RCA in-stent restenosis. (2) CAD (coronary artery disease): PLAN: The patient has an extensive history of CAD. She has been evaluated at multiple medical centers. She has undergone cardiac catheterization and PCI at multiple medical centers. She has undergone remote CABG. She is now status post diagnostic cardiac catheterization requiring PCI to the LCx and RCA previously stented areas due to in-stent restenosis. She will need continued medical management with antiplatelet therapy. (3) History of coronary artery stent placement: PLAN: The patient has had PCI performed at [facility] and [facility]. Her previous studies are noted. At the moment she will continue medical therapy. She has demonstrated angiographically significant appearing in-stent restenosis to the LCx stent and RCA stents. She required repeat PCI procedures to these a reas. She will require continued antiplatelet therapy. (4) History of coronary artery bypass graft x 3: PLAN: Based upon the patient's previous cardiac catheterization procedures she has had 3 bypass grafts placed. Based upon the results of her previous cardiac catheterization procedures only her SY graft is patent with the 2 SVG grafts (to the OM and the RCA respectiv inderjit) being occluded. Her SY graft remains patent. (5) Carotid artery stenosis: PLAN: The patient does have bilateral carotid artery bruits. She has a history of carotid artery stenosis. She has been evaluated noninvasively by carotid artery duplex study, CTA, and MRA. (6) Hyperlipidemia: QUALIFIERS: Hyperlipidemia type: pure hypercholesterolemia Qualified Code(s): E78.00 - Pure hypercholesterolemia, unspecified; E78.0 - Pure hypercholesterolemia PLAN: She should continue lipid-lowering therapy. (7) Essential (primary) hypertension: PLAN: Her blood pressure does need to be followed. Her medications can be adjusted as needed. (8) Anemia: PLAN: Her hemoglobin has decreased over the last 4 months as noted above. She does admit to bright red blood per rectum. She has undergone upper and lower endoscopy procedures. The results are noted. At the present time she will continue her cardiac evaluation. It appears that she may require further gastrointestinal evaluation depending upon the results of her biopsies. The interim she was given permission by gastroenterology to proceed with her ca rdiac catheterization including her antiplatelet therapy as needed. If she does require future gastrointestinal related invasive/surgical type procedures and consideration will have to be given as to the timing of when, now that she is received additional PCI and requires antiplatelet therapy, she will be able to interrupt her antiplatelet therapy to have such procedures performed. Addt'l Comments The patient's case was discussed and reviewed with the patient, her daughter, and the information forwarded to the [facility] hospitalist team. This note was generated using a voice recognition system and there may be incorrect words, spelling or punctuation that were not noted when reviewing the office note prior to saving. Procedure Criteria Type of Procedure Procedure Type: Elective Elective Risks - COVID COVID Risk Discussion: The surgeon/proceduralist and patient have discussed in detail the risk of exposure to and/or potential harm posed by the COVID-19 virus with having a surgery/procedure at this time versus the risk of delaying the surgery/procedure. It is not possible to know either the risk of delaying the surgery or procedure or chance of getting an infection with perfect accuracy, but a joint decision was made between the patient and the surgeon/proceduralist to proceed at this time with the scheduled surgery/procedure as indicated on the consent form.
--- NOTE | 2021-10-10 12:23 | CL.I_ITS ---
Patient Name: MAURIEC WALLACE Study Date: 10/10/2021 Performing: Ingrid Wilcox MD Ht: 61 inches 154.94 cm : 1945 Wt: 150.58 lbs 68.3 kg Age: 76 Gender: female BSA: 1.67 PROCEDURE(S) PERFORMED IC12-(22903/C9600)BRIANA W/WO PTCA, SINGLE CORONARY ARTERY IC12-(66960/C9600)BRIANA W/WO PTCA, SINGLE CORONARY ARTERY CLINICAL PROFILE AND CO-MORBIDITIES Indications: ACS > 24 hrs, Suspected CAD Heart Failure: None Angina Classification Anginal Classification w/in 2 Weeks: CCS III CAD Presentations: Non-STEMI. CONCLUSIONS Successful PCI of mLCx and pRCA with BRIANA RECOMMENDATIONS DESCRIPTION OF PROCEDURE The patient arrived to the procedure lab. The risks and benefits of the procedure as well as a full description of our services here and current unavailability of surgical backup were fully explained to the patient and/or their significant other prior to the catheterization. The Timeout was completed, verifying the correct patient and procedure. The patient's procedural site was prepped and draped in the usual fashion. Local anesthetic was given subcutaneously to right groin region with Lidocaine 2% Using a modified Seldinger technique,arterial access was obtained via the right femoral artery, a 4Fr sheath was inserted Left Coronary Artery selective angiography was performed in multiple views using a 4 Fr. JL5 catheter. Right Coronary Artery selective angiography was then performed in multiple views using a 4 Fr. 3DRC catheter. Left internal mammary artery graft to the LAD selective angiography was performed in multiple views using a 4 Fr. 3DRC catheter. Left Ventriculography was performed in BEARD projection using a 4 Fr. Pigtail catheter. LV to AO pullback pressures were then recorded.The images were reviewed and options discussed. A decision was then made to proceed with an Intervention, IVUS or other adjunct procedure. Arterial sheath was exchanged for a 6 Fr Sheath. XB 3.0 Guide catheter was inserted and engaged into the LCA. BMW Guide wire was advanced to the Circumflex. Emerge 2.50x12 Balloon catheter was inserted. PTCA balloon inflated at 8 atms for 26 secs. Angiogram performed post balloon dilatation. Orsiro 2.50 x9 Drug Eluting stent was inserted. NC Emerge 2.50x8 Balloon catheter was inserted. Angiogram performed post balloon dilatation. JR 4 Guide catheter was inserted and engaged into the RCA. BMW Guide wire was advanced to the RCA. Emerge 2.00x12 Balloon catheter was inserted. PTCA balloon inflated at 14 atms for 19 secs. PTCA balloon inflated at 16 atms for 16 secs. PTCA balloon inflated at 16 atms for 8 secs. PTCA balloon inflated at 16 atms for 13 secs. Emerge 2.50x12 Balloon catheter was inserted. PTCA balloon inflated at 10 atms for 17 secs. PTCA balloon inflated at 10 atms for 5 secs. PTCA balloon inflated at 10 atms for 7 secs. PTCA balloon inflated at 12 atms for 17 secs. PTCA balloon inflated at 14 atms for 16 secs. PTCA balloon inflated at 12 atms for 14 secs. PTCA balloon inflated at 14 atms for 10 secs. Angiogram performed post balloon dilatation. Orsiro 2.50x9 Drug Eluting stent was inserted. Angiogram performed post stent deployment. Contrast was injected through the sheath and the Right Iliac and Femoral artery were assessed for possible closure device. The arterial sheath was pulled and a Perclose closure device was deployed for hemostasis INTERVENTION INFORMATION LESION SITE: Circumflex (Mid) Lesion Complexity: High/C, chronic total occlusion: No, lesion at bifurcation: Yes, thrombus present: No, lesion length: 8 mm, culprit lesion: Yes, Previously treated lesion: Yes, Timeframe of previous treatment: Time unknown, Previously treated with a stent: Yes Stent Type: with stent type unknown, In-stent Thrombosis: No, In-stent restenosis: Yes Pre Stenosis: 99 % Pre intervention SAL flow: 2 PROCEDURE: Drug Eluting Stent with pre and post dilatation Post Stenosis: 0 % Post intervention SAL flow: 3 Lesion Devices: Diaz .014 BMW Badger Straight 190cm Cardinal 6 Fr XB3.0 100cm Guide Catheter Brandt Sci EMERGE MR 2.50x12 BALLOON Biotronik Orsiro [place] MR BRIANA 2.5x9 Brandt Sci NC EMERGE MR 2.50x08 BALLOON LESION SITE: RCA (Proximal) Lesion Complexity: High/C, chronic total occlusion: No, lesion at bifurcation: No, thrombus present: No, lesion length: 8 mm, culprit lesion: Yes, Previously treated lesion: Yes, Timeframe of previous treatment: Time unknown, Previously treated with a stent: Yes Stent Type: with stent type unknown, In-stent Thrombosis: No, In-stent restenosis: Yes Pre Stenosis: 90 % Pre intervention SAL flow: 3 PROCEDURE: Drug Eluting Stent with pre dilatation. Shortest possible stent length was used and PTCA alone was done when possible for some of the ISR lesions with excellent results Post Stenosis: 0 % Post intervention SAL flow: 3 Lesion Devices: Diaz .014 BMW Badger Straight 190cm Brandt Sci EMERGE MR 2.50x12 BALLOON Cardinal 6 Fr JR4 100cm Guide Catheter Brandt Sci EMERGE MR 2.00x12 BALLOON Biotronik [facility] [place] MR BRIANA 2.5x9 COMPLICATIONS No Complications PROCEDURE MEDICATIONS Versed 1 mg IV Versed 1 mg IV Versed 1 mg IV Oxygen: 2 L/min via nasal cannula Brilinta 180 mg PO @ 10/10/2021 10:05:30 Heparin 4000 unit(s) IV 10/10/2021 10:07:34 Heparin 1000 unit(s) IV 10/10/2021 10:53:48 Nitro 100 mcg IC 10/10/2021 10:53:10 SUMMARY OF HEMODYNAMIC DATA Time AIR REST ECG 09:05:40 AO 178/81 (117) SA 09:37:35 LV 181/11, 48 09:46:01 LV 181/11, 35 09:46:09 LVp 189/6, 41 09:46:16 AOp 186/18 (97) 09:46:23 Signed By Ingrid Wilcox MD On 10/10/2021 12:23:09 Ingrid Wilcox MD
--- NOTE | 2021-10-10 12:30 | EKG12_ITS ---
Test Reason : POST PCI Blood Pressure : / mmHG Vent. Rate : 067 BPM Atrial Rate : 067 BPM P-R Int : 222 ms QRS Dur : 090 ms QT Int : 422 ms P-R-T Axes : 081 067 -78 degrees QTc Int : 445 ms Sinus rhythm with 1st degree A-V block Nonspecific ST-T Changes Abnormal ECG When compared with ECG of 08-OCT-2021 14:06, Premature atrial complexes are no longer Present Confirmed by MINE GOLD, GOPAL ([id number]), news videotape editor WALLY LOAIZA ([id number]) on 10/11/2021 2:18:52 PM Referred By: Confirmed By:BRAN BLOUNT MD
[2021-10-10] MEDS: Tolterodine Tartrate 2 MG CAP.SA PO (12:47)
[2021-10-10] MEDS: Citalopram 40 MG TABLET PO (13:00)
[2021-10-10] MEDS: buPROPion (SR) 100 MG TABLET.SA PO (13:00)
--- NOTE | 2021-10-10 13:06 | CRPHASE1_ITS ---
Patient Communication Former Patient:: Phase I PHII Cardiac Rehab Discussed with Patient:: Yes Guide to Cardiac Rehab Given to Patient:: Yes Cardiac Rehab Facility Choice List Given to Patient:: Yes Choice Program [facility] CR PHII:: Communication Given to CR Choice Program Other:: Communication Given to CR Behavioral Health Technician:: Darryn Wilcox Refer Phase II Cardiac Rehab:: Yes Sessions:: 36 sessions - 3 days/wk, 12 weeks Cardiac Rehabilitation Info Cardiac Rehabilitation Program Information: Cardiac Rehabilitation is important for patients like you who are recovering from a heart problem. Cardiac rehabilitation programs are recognized as integral to the continued care of the patient with coronary heart disease. The cardiac rehabilitation program is designed to optimize a patient's physical, psychological, and social functioning. Health physician locums urgent care work in cardiac rehabilitation programs and assist you with getting the treatments you need to get stronger and healthier - like exercise, healthy eating habits, and medications. Cardiac rehabilitation has been show to help people with heart problems live longer and have better life enjoyment than people who do not go to cardiac rehabilitation. Please contact the Cardiac Rehabilitation Program at [facility] at in two weeks if you have not heard from them.
--- NOTE | 2021-10-10 13:06 | CRPH1.INSTRU ---
General Education CAD and cardiac anatomy and function:: Patient communicates acknowledgment Explanation of diagnoses and procedures:: Patient communicates acknowledgment Sign/Symptoms of CA:: Patient communicates acknowledgment Antiplatelet therapy: Patient communicates acknowledgment Smoking Patient Nicotine/Smoking Risk Factors Are:: Cigarettes Recommendations Include:: Smoking cessation strategies/Smoking packet, Participation in a smoking cessation program Nicotine/Smoking Response Code:: Patient communicates acknowledgment Dyslipidemia Patient Dyslipidemia Risk Factors Are:: Total Cholesterol, Triglycerides, HDL, LDL Recommendations Include:: Lipid profile provided, Reviewed NCEP/ATP guidelines, Therapeutic Lifestyle Change dietary guidelines Dyslipidemia Response Code:: Patient communicates acknowledgment Overweight/Obesity Patient Overweight/Obesity Risk Factors Are:: Overweight = 26-29 Recommendations Include:: Weight loss of 5-10%, Reduced calorie diet, Exercise 5-7 times/week Overweight/Obesity:: Patient communicates acknowledgment Hypertension Recommendations Include:: Maintain BP <130/85, DASH dietary guidelines, Decrease/maintain normal body weight, Moderation of ETOH Hypertension:: Patient communicates acknowledgment Diabetes Patient Diabetes Risk Factors Are:: No documented hx of diabetes Metabolic Syndrome Patient Metabolic Syndrome Risk Factors Are [3 of 5]:: Fasting blood sugar > 100 mg/dL, Waist circumference > 35 [female] or 40 [male], Hypertension, Low HDL <40 [male] or < 50 [female] Recommendations Include:: Reinforce compliance to risk factor modifications, Encouraged follow-up with Primary Care Physician Metabolic Syndrome Response Code:: Patient communicates acknowledgment Sedentary Patient Sedentary Risk Factors Are:: Lack of regular exercise Recommendations Include:: Aerobic exercise 5-7 times/week for 20-30 minutes continuously, Benefits of regular exercise, Discussed home walking program, Monitored Outpatient Cardiac Rehab Sedentary Response Code:: Patient communicates acknowledgment Stress Recommendations Include:: Identification of stressors, and assessment of coping skills, Stress management techniques Stress Response Code:: Patient communicates acknowledgment
--- NOTE | 2021-10-10 14:20 | CHAPLAIN ---
Type of Pastoral Visit _x__ Initial Visit ___ Follow-up Visit ___ On-call Visit ___ General Patient Visit ___ Spiritual Assessment ___ Family Conference ___ Bereavement ___ Rapid Response ___ Code Blue ___ Other (describe below) Pastoral Care Referral From _x__ Patient ___ Family ___ Nurse ___ Physician ___ Life Scientist ___ Entertainment & Media Correspondent ___ Other (describe below) Sacrament/Intervention _x__ Active listening ___ Anointing ___ Methodist ___ Bereavement ___ Communion _x__ Analia exploration ___ ___ Life review _x__ Prayer ___ Reconciliation ___ Sacrament of Sick _x__ Supportive presence ___ Wedding ___ Other (describe below) Pastoral Comments patient is eating lunch but welcomes this citrix systems administrator and asks I want you to say a prayer for me; pt says that I have a heart problem and cancer too; pt talks about her family and seeks prayer for them too at this time; pt declares her analia and her daily prayers but is not active in any congregational or analia group; pt finds support mostly in her pet dog which she adores; pt states family members are involved too
[2021-10-10] MEDS: HYDROcodone Bitartrate/Apap 5/325 Tablet PO (15:58)
--- NOTE | 2021-10-10 17:03 | PN.HOSP_ITS ---
Subjective Subjective Doing well today, no chest pain. She underwent a heart cath requiring multiple stents Objective Data Objective Data Vital Signs: Vital Signs Temp Pulse Resp BP Pulse Ox O2 Del Method 98.9 F 72 16 144/66 H 99 Room Air 10/10/21 16:03 10/10/21 16:03 10/10/21 16:03 10/10/21 16:03 10/10/21 16:03 10/10/21 16:03 Oxygen Delivery Method Room Air Weight: 150 lb 9.211 oz Body Mass Index (BMI) 28.4 Intake & Output: Intake and Output for Last 24 Hours 10/09/21 10/10/21 10/11/21 03:59 03:59 03:59 Intake Total 110 / 110 265.75 / 265.75 230 / 230 Balance 110 / 110 265.75 / 265.75 230 / 230 Lab / Micro Data Result Diagrams: 10/10/21 05:36 10/10/21 05:36 Labs: Laboratory Results - last 24 hr 10/10/21 05:36: WBC 8.7, RBC 3.41 L, Hgb 8.5 L, Hct 28.7 L, MCV 84.2, MCH 24.9 L , MCHC 29.6 L, RDW Std Deviation 44.4 H, RDW Coeff of John 14.5, Plt Count 291, MPV 10.9, Immature Gran % (Auto) 0.300, Neut % (Auto) 66.1, Lymph % (Auto) 24.3, Woodson % (Auto) 5.6, Eos % (Auto) 3.2, Baso % (Auto) 0.5, Absolute Neuts (auto) 5.7, Absolute Lymphs (auto) 2.11, Nucleated RBC % 0, Differential Comment SCANNED, Platelet Estimate ADEQUATE 10/10/21 05:36: Sodium 142, Potassium 3.7, Chloride 112 H, Carbon Dioxide 27.0, Anion Gap 3 L, BUN 11, Creatinine 0.78, Estim Creat Clear Calc 37.24, Est GFR (MDRD) Af Amer 93, Est GFR (MDRD) Non-Af 77, BUN/Creatinine Ratio 14.1, Glucose 122 H, Calcium 8.1 L Micro: Microbiology 10/08/21 16:55 Stool Stool Occult Blood (KINZA) - Final Occult Blood Positive Physical Exam Narrative General: Alert, Oriented x3, Cooperative, No apparent distress HEENT: Atraumatic, PERRLA, EOMI, Normocephalic Oral: Moist Mucosa Neck: Supple, No JVD Lungs: Diminished, Normal air movement, No rhonchi, No wheeze, No rales Cardiovascular: Regular rate, Regular Rhythm, Normal S1, Normal S2, No murmurs Abdomen: Soft, Non Tender, Non-Distended, No Hepato-splenomegaly Extremities: No edema, Capillary Refill Less than 3 Seconds Skin: No rashes, No breakdown Musculoskeletal: No Tenderness to Palpation of Joints or Extremities Neurological: Cranial nerves II-XII grossly intact, Motor Exam 5/5 strength t hroughout, Sensory exam intact to light touch and pain Psych/Mental Status: Normal Affect, Appropriate Assessment & Plan Assessment/Plan (1) Non-ST elevation (NSTEMI) myocardial infarction: (2) Anemia: PLAN: Plan 1. Non-STEMI/HTN/HLD/CAD status post CABG ? Troponin was elevated consistent with a non-STEMI ? Cardiology was consulted however cardiac cath had to be delayed secondary to an acute normocytic anemia secondary to a GI bleed ? She was cleared by GI to continue with antiplatelets ? She had multiple drug-eluting stents placed today in her left circumflex as well as her RCA ? Continue with medical management including blood pressure management and antiplatelets 2. Acute normocytic anemia secondary to GI bleed/GERD ? Multiple AVMs were seen in the colonoscopy, EGD was unremarkable ? The culprit for her GI bleed were cauterized and per GI it was felt safe to proceed with a cardiac cath with heparin and antiplatelets ? We will continue to monitor hemoglobin, currently stable at 8.5 ? Continue 3. History of TIA/CVA ? Continue with medical management 4. Hypothyroidism ? Stable ? Continue with Synthroid 5. COPD/tobacco abuse/JAIME ? Not in exacerbation ? Continue with inhalers as necessary ? Encourage cessation, she did not want a nicotine patch ? Continue with CPAP at night 6. Anxiety/depression ? Stable ? Continue with her home medications 7. Recent left shoulder fracture following with orthopedic medicine nonoperative DVT: SCDs Charges/Coding Visit Charges Inpatient E&M: 53786 Subs Hosp L2
[2021-10-10] MEDS: MELATONIN 10 MG TABLET 5 MG PO (21:39)
[2021-10-10] MEDS: Atorvastatin Calcium 40 MG Tablet PO (21:40)
[2021-10-10] MEDS: TICAGRELOR 90 MG TABLET PO (21:40)
[2021-10-10] MEDS: traZODone 100 MG Tablet PO (21:40)
[2021-10-11] VITALS (9 sets, daily range): BP systolic 135–152; BP diastolic 59–98; PULSE 64–79; RESP 16–17; TEMP 36.7–37; O2SAT 94–97
[2021-10-11] MEDS: Levothyroxine 75 MCG Tablet PO (05:26)
[2021-10-11 06:03] LABS: Hematocrit 27.9 % (37-47); Hemoglobin 8.3 g/dL (12.0-15.0); Mean Corp Hgb Conc 29.7 g/dL (32-36); Mean Corpuscular Hgb 24.6 pg (27.0-32.0); Mean Corpuscular Volume 82.5 fL (81-99); Platelet Count 366 K/mm3 (150-450); RBC Distribution Width CV 14.5 % (11.6-14.6); RBC Distribution Width SD 42.5 fl (35.1-43.9); Red Blood Count 3.38 M/mm3 (4.2-5.4); White Blood Count 9.6 K/mm3 (4.4-11.0)
[2021-10-11 06:47] LABS: ALB/GLOB Ratio 0.8 RATIO (0.9-2.4); AST(SGOT) 11 U/L (15-37); Alanine Aminotransfer ALT/SGPT 10 U/L (13-56); Albumin, Serum 2.8 g/dL (3.2-5.0); Alkaline Phosphatase 122 U/L (45-117); Anion Gap 5 (5-15); BUN 10 mg/dL (7-18); BUN/Creat Ratio 15.6 RATIO (10-20); Chloride 110 mmol/L (98-107); Creatinine, Serum 0.64 mg/dL (0.55-1.02); EST Glomerular Filtration Rate 96 mL/min (>60); Est Glom Filt Rate - Afr Amer 116 mL/min (>60); Estimated Creatinine Clearance 37.24 ml/min; Globulin 3.5 g/dL (2.2-4.2); Glucose 104 mg/dL (74-106); Potassium 3.6 mmol/L (3.5-5.1); Protein, Total 6.3 g/dL (6.4-8.2); Sodium Level 143 mmol/L (136-145)
[2021-10-11] MEDS: HYDROcodone Bitartrate/Apap 5/325 Tablet PO (06:58)
--- NOTE | 2021-10-11 09:49 | CASEMGMT ---
This RN CM to room to discuss d/c plan and pt states plan is to go home with resumption of HHC and declines need for further HHC list at this time. Pt voices no further questions/concerns/needs. Yulisa at [facility] aware of probable d/c. CM to follow for any further discharge planning/needs. Orin LOPEZ CM
--- NOTE | 2021-10-11 10:00 | EKG12_ITS ---
Test Reason : SERIES AM Blood Pressure : / mmHG Vent. Rate : 067 BPM Atrial Rate : 067 BPM P-R Int : 236 ms QRS Dur : 092 ms QT Int : 468 ms P-R-T Axes : 067 074 -74 degrees QTc Int : 494 ms Sinus rhythm with 1st degree A-V block ST & T wave abnormality, consider lateral ischemia Prolonged QT Abnormal ECG When compared with ECG of 08-OCT-2021 18:53, MANUAL COMPARISON REQUIRED, DATA IS UNCONFIRMED Confirmed by MINE GOLD, GOPAL ([id number]), photograph editor WALLY LOAIZA ([id number]) on 10/11/2021 2:19:34 PM Referred By: STEFANIA Confirmed By:BRAN BLOUNT MD
--- NOTE | 2021-10-11 10:18 | PCM.PN.CARD ---
Subjective Subjective The patient is awake and alert this morning. She states she feels so much better. She has no new acute cardiac complaints. Objective Data Vital Signs: Vital Signs Temp Pulse Resp BP Pulse Ox O2 Del Method 98.0 F 70 17 151/98 H 96 Room Air 10/11/21 04:00 10/11/21 07:00 10/11/21 04:00 10/11/21 04:00 10/11/21 04:00 10/11/21 09:50 Oxygen Delivery Method Room Air Weight: 150 lb 9.211 oz Body Mass Index (BMI) 28.4 Intake & Output: Intake and Output for Last 24 Hours 10/09/21 10/10/21 10/11/21 23:59 23:59 23:59 Intake Total 265.75 / 265.75 940 / 940 Output Total 850 / 850 100 / 100 Balance 265.75 / 265.75 90 / 90 -100 / -100 Lab / Micro Data Result Diagrams: 10/11/21 05:49 10/11/21 05:49 Labs: Laboratory Results - last 24 hr 10/11/21 05:49: WBC 9.6, RBC 3.38 L, Hgb 8.3 L, Hct 27.9 L, MCV 82.5, MCH 24.6 L, MCHC 29.7 L, RDW Std Deviation 42.5, RDW Coeff of John 14.5, Plt Count 366, MPV 10.0 10/11/21 05:49: Sodium 143, Potassium 3.6, Chloride 110 H, Carbon Dioxide 28.0, Anion Gap 5, BUN 10, Creatinine 0.64, Estim Creat Clear Calc 37.24, Est GFR (MDRD) Af Amer 116, Est GFR (MDRD) Non-Af 96, BUN/Creatinine Ratio 15.6, Glucose 104, Calcium 8.0 L, Total Bilirubin 0.50, AST 11 L, ALT 10 L, Alkaline Phosphatase 122 H, Total Protein 6.3 L, Albumin 2.8 L, Globulin 3.5, Albumin/Globulin Ratio 0.8 L Cardiology Labs/Tests 10/11/21 05:49: WBC 9.6, RBC 3.38 L, Hgb 8.3 L, Hct 27.9 L, MCV 82.5, MCH 24.6 L, MCHC 29.7 L, Plt Count 366, MPV 10.0 10/11/21 05:49: Sodium 143, Potassium 3.6, Chloride 110 H, Carbon Dioxide 28.0, Anion Gap 5, BUN 10, Creatinine 0.64, Est GFR (MDRD) Af Amer 116, Est GFR (MDRD) Non-Af 96, BUN/Creatinine Ratio 15.6, Glucose 104, Calcium 8.0 L, Total Bilirubin 0.50 Rhythm: Sinus rhythm Physical Exam Const alert, oriented x3 and no apparent distress Orientation / Consciousness: awake HEENT normocephalic, head/scalp atraumatic and hearing grossly normal bilaterally Eyes PERRL, EOMs intact bilaterally, conjunctivae normal and no scleral icterus Neck full ROM, supple and no JVD Carotids: normal carotid upstroke and bruit Positive for bilateral Chest Chest: midline sternotomy incision Resp normal respiratory effort and clear to auscultation bilaterally Cardio regular rate, regular rhythm, S1 normal heart sound and S2 normal heart sound GI normal to inspection, nondistended, normoactive bowel sounds Extremity no pedal edema Extremity Narrative: Right inguinal area: Femoral pulses: 2+/4+: No obvious bruits: No obvious hematoma Skin no rashes or lesions noted Psych mental status grossly normal Assessment & Plan Assessment/Plan (1) Non-ST elevation (NSTEMI) myocardial infarction: PLAN: The patient presents with symptoms and objective findings concerning for her underlying CAD process with an acute coronary syndrome and a non-ST segment elevation FL. The patient will continue to be monitored. She has undergone further evaluation with a transthoracic echocardiogram with the results as noted. She has undergone further evaluation with diagnostic cardiac catheterization. This demonstrated her SY to the LAD to be patent, the LCx stent to have angiographically significant in-stent restenosis, the RCA stent to have angiographically significant in-stent restenosis, and her previous SVG grafts are noted to be chronically occluded. She has subsequently proceeded with PCI of the LCx and RCA in-stent restenosis. She will need to continue medical therapy with her aspirin and clopidogrel/Plavix on a daily basis without interruption-ideally with respect to the clopidogrel/Plavix for minimum of 1 year. If her other medical conditions demonstrate a need for noncardiac invasive/interventional/surgical type procedures then consideration will have to be given as to when her antiplatelet therapy can be interrupted. (2) CAD (coronary artery disease): PLAN: The patient has an extensive history of CAD. She has been evaluated at multiple medical centers. She has undergone cardiac catheterization and PCI at multiple medical centers. She has undergone remote CABG. She is now status post diagnostic cardiac catheterization requiring PCI to the LCx and RCA previously stented areas due to in-stent restenosis. She will need continued medical management with antiplatelet therapy. (3) History of coronary artery stent placement: PLAN: The patient has had PCI performed at [facility] and [facility]. Her previous studies are noted. At the moment she will continue medical therapy. She has demonstrated angiographically significant appearing in-stent restenosis to the LCx stent and RCA stents. She required repeat PCI procedures to these areas. She will require continued antiplatelet therapy. (4) History of coronary artery bypass graft x 3: PLAN: Based upon the patient's previous cardiac catheterization procedures she has had 3 bypass grafts placed. Based upon the results of her previous cardiac catheterization procedures only her YS graft is patent with the 2 SVG grafts (to the OM and the RCA respectively) being occluded. Her SY graft remains patent. (5) Carotid artery stenosis: PLAN: The patient does have bilateral carotid artery bruits. She has a history of carotid artery stenosis. She has been evaluated noninvasively by carotid artery duplex study, CTA, and MRA. (6) Hyperlipidemia: QUALIFIERS: Hyperlipidemia type: pure hypercholesterolemia Qualified Code(s): E78.00 - Pure hypercholesterolemia, unspecified; E78.0 - Pure hypercholesterolemia PLAN: She should continue lipid-lowering therapy. (7) Essential (primary) hypertension: PLAN: Her blood pressure does need to be followed. Her medications can be adjusted as needed. (8) Anemia: PLAN: Her hemoglobin has decreased over the last 4 months as noted above. She does admit to bright red blood per rectum. She has undergone upper and lower endoscopy procedures. The results are noted. It appears that she may require further gastrointestinal evaluation depending upon the results of her biopsies. If she does require future gastrointestinal related invasive/surgical type procedures and consideration will have to be given as to the timing of when, now that she is received additional PCI and requires antiplatelet therapy, she will be able to interrupt her antiplatelet therapy to have such procedures performed. Addt'l Comments The above was discussed and reviewed with the patient with her daughter present. This note was generated using a voice recognition system and there may be incorrect words, spelling or punctuation that were not noted when reviewing the office note prior to saving. Procedure Criteria Type of Procedure Procedure Type: Elective Elective Risks - COVID COVID Risk Discussion: The surgeon/proceduralist and patient have discussed in detail the risk of exposure to and/or potential harm posed by the COVID-19 virus with having a surgery/procedure at this time versus the risk of delaying the surgery/procedure. It is not possible to know either the risk of delaying the surgery or procedure or chance of getting an infection with perfect accuracy, but a joint decision was made between the patient and the surgeon/proceduralist to proceed at this time with the scheduled surgery/procedure as indicated on the consent form.
[2021-10-11] MEDS: Atenolol 50 MG Tablet PO (10:34)
[2021-10-11] MEDS: buPROPion (SR) 100 MG TABLET.SA PO (10:34)
[2021-10-11] MEDS: Lisinopril 40 MG Tablet PO (10:34)
[2021-10-11] MEDS: Citalopram 40 MG TABLET PO (10:34)
[2021-10-11] MEDS: LORazepam 1 MG Tablet PO ×3 (10:34→20:09)
[2021-10-11] MEDS: Aspirin E.C. 81 MG Tablet PO (10:35)
[2021-10-11] MEDS: Tolterodine Tartrate 2 MG CAP.SA PO (10:37)
[2021-10-11] MEDS: TICAGRELOR 90 MG TABLET PO ×2 (10:37→21:22)
[2021-10-11] MEDS: Gabapentin 100 MG Capsule 200 MG PO ×3 (10:37→21:21)
[2021-10-11] MEDS: 0.9% Saline Lock 10 ML Syringe IV (11:31)
[2021-10-11 12:29] LABS: Hematocrit 27.6 % (37-47); Hemoglobin 8.1 g/dL (12.0-15.0)
--- NOTE | 2021-10-11 14:43 | PN.HOSP_ITS ---
Subjective Subjective Doing well, no issues overnight. Her hemoglobin did drop again to 8.3 so we will recheck in the afternoon Objective Data Objective Data Vital Signs: Vital Signs Temp Pulse Resp BP Pulse Ox O2 Del Method 98.3 F 71 16 152/70 H 97 Room Air 10/11/21 14:08 10/11/21 14:08 10/11/21 14:08 10/11/21 14:08 10/11/21 14:08 10/11/21 14:08 Oxygen Delivery Method Room Air Weight: 150 lb 9.211 oz Body Mass Index (BMI) 28.4 Intake & Output: Intake and Output for Last 24 Hours 10/10/21 10/11/21 10/12/21 03:59 03:59 03:59 Intake Total 265.75 / 265.75 940 / 940 1010 / 1010 Output Total 850 / 850 700 / 700 Balance 265.75 / 265.75 90 / 90 310 / 310 Lab / Micro Data Result Diagrams: 10/11/21 12:25 10/11/21 05:49 Labs: Laboratory Results - last 24 hr 10/11/21 05:49: WBC 9.6, RBC 3.38 L, Hgb 8.3 L, Hct 27.9 L, MCV 82.5, MCH 24.6 L , MCHC 29.7 L, RDW Std Deviation 42.5, RDW Coeff of John 14.5, Plt Count 366, MPV 10.0 10/11/21 05:49: Sodium 143, Potassium 3.6, Chloride 110 H, Carbon Dioxide 28.0, Anion Gap 5, BUN 10, Creatinine 0.64, Estim Creat Clear Calc 37.24, Est GFR (MDRD) Af Amer 116, Est GFR (MDRD) Non-Af 96, BUN/Creatinine Ratio 15.6, Glucose 104, Calcium 8.0 L, Total Bilirubin 0.50, AST 11 L, ALT 10 L, Alkaline Phosphatase 122 H, Total Protein 6.3 L, Albumin 2.8 L, Globulin 3.5, Albumin/Globulin Ratio 0.8 L 10/11/21 12:25: Hgb 8.1 L, Hct 27.6 L Micro: Microbiology 10/08/21 16:55 Stool Stool Occult Blood (KINZA) - Final Occult Blood Positive Physical Exam Narrative General: Alert, Oriented x3, Cooperative, No apparent distress HEENT: Atraumatic, PERRLA, EOMI, Normocephalic Oral: Moist Mucosa Neck: Supple, No JVD Lungs: Diminished, Normal air movement, No rhonchi, No wheeze, No rales Cardiovascular: Regular rate, Regular Rhythm, Normal S1, Normal S2, No murmurs Abdomen: Soft, Non Tender, Non-Distended, No Hepato-splenomegaly Extremities: No edema, Capillary Refill Less than 3 Seconds Skin: No rashes, No breakdown Musculoskeletal: No Tenderness to Palpation of Joints or Extremities Neurological: Cranial nerves II-XII grossly intact, Motor Exam 5/5 strength throughout, Sensory exam intact to light touch and pain Psych/Mental Status: Normal Affect, Appropriate Assessment & Plan Assessment/Plan (1) Non-ST elevation (NSTEMI) myocardial infarction: (2) Anemia: PLAN: Plan 1. Non-STEMI/HTN/HLD/CAD status post CABG ? Troponin was elevated consistent with a non-STEMI ? Cardiology was consulted however cardiac cath had to be delayed secondary to an acute normocytic anemia secondary to a GI bleed ? She was cleared by GI to continue with antiplatelets ? She had multiple drug-eluting stents placed 10/10/2021 in her left circumflex as well as her RCA ? Continue with medical management including blood pressure management and antiplatelets 2. Acute normocytic anemia secondary to GI bleed/GERD ? Multiple AVMs were seen in the colonoscopy, EGD was unremarkable ? The culprit for her GI bleed were cauterized and per GI it was felt safe to proceed with a cardiac cath with heparin and antiplatelets ? Her hemoglobin dropped to 8.3 so we will recheck this afternoon 3. History of TIA/CVA ? Continue with medical management 4. Hypothyroidism ? Stable ? Continue with Synthroid 5. COPD/tobacco abuse/JAIME ? Not in exacerbation ? Continue with inhalers as necessary ? Encourage cessation, she did not want a nicotine patch ? Continue with CPAP at night 6. Anxiety/depression ? Stable ? Continue with her home medications 7. Recent left shoulder fracture following with orthopedic medicine nonoperative DVT: SCDs Charges/Coding Visit Charges Inpatient E&M: 10645 Subs Hosp L2
[2021-10-11] MEDS: Menthol/Lanolin/Calamine/Znox 113 GM Tube 1 APPLIC TOPICAL ×2 (16:05→21:23)
--- NOTE | 2021-10-11 16:51 | NURSING ---
All documentation and medication administration completed by Do Baldwin completed under the supervision of this RN.
[2021-10-11] MEDS: traZODone 100 MG Tablet PO (21:22)
[2021-10-11] MEDS: MELATONIN 10 MG TABLET 5 MG PO (21:22)
[2021-10-11] MEDS: Atorvastatin Calcium 40 MG Tablet PO (21:23)
[2021-10-12 03:00] VITALS: PULSE 66
[2021-10-12 04:10] VITALS: BP 152/54; PULSE 85; RESP 18; TEMP 36.9; O2SAT 94
[2021-10-12] MEDS: Levothyroxine 75 MCG Tablet PO (05:02)
[2021-10-12 06:58] LABS: Absolute Lymphocyte Count 2.13 X10^3/uL (0.83-4.51); Absolute Neutrophil Count 5.4 X10^3/uL (2.0-7.7); Basophil# 0.05 X10^3/uL; Basophil% 0.6 % (0-1); Eosinophils% 3.5 % (0-5); Hematocrit 28.2 % (37-47); Hemoglobin 8.5 g/dL (12.0-15.0); Lymphocyte # 2.13 X10^3/ul (0.83-4.51); Mean Corp Hgb Conc 30.1 g/dL (32-36); Mean Corpuscular Hgb 24.6 pg (27.0-32.0); Mean Corpuscular Volume 81.7 fL (81-99); Mean Platelet Vol. 10.1 fl (6.2-12.0); Monocyte# 0.58 X10^3/uL; Monocyte% 6.8 % (0-10); NRBC Flagged by Analyzer 0 % (0-5); Neutrophil # 5.42 X10^3/uL (2.7-7.7); Neutrophil % 63.7 % (47-70); Platelet Count 384 K/mm3 (150-450); RBC Distribution Width CV 14.6 % (11.6-14.6); Red Blood Count 3.45 M/mm3 (4.2-5.4); White Blood Count 8.5 K/mm3 (4.4-11.0)
[2021-10-12 07:00] VITALS: PULSE 67
--- NOTE | 2021-10-12 07:08 | DCINST_ITS ---
Discharge Instructions Diet Discharge Diet: Low fat / Low cholesterol Activity Discharge Activity: Return to Normal Activity Dressing / Incision Call your doctor if you observe: Fever of 101 or Higher, Shortness of breath, Dizziness, Fainting spells, Swelling in the ankles, Chest pain and Increased palpitations (irregular heartbeat) Follow Up Care Test Results: Test results from this visit will be discussed in further detail at your follow- up appointment, if applicable. Discharge Plan Admission Admit Date/Time: 10/08/21 18:03 Attending Provider: Cruz Roberts Primary Care Provider: Zully Rojas Consulting Providers: Kingsley Valera ; Christian King Discharge Orders/Prescriptions Prescriptions: New Brilinta 90 mg Tablet 90 mg PO BID Qty: 60 0RF Continued albuterol sulfate 0.63 mg/3 mL solution for nebulization 0.63 mg INHALATION Q4H PRN (Reason: Congestion) aspirin 81 MG tablet 81 mg PO DAILY@0800 levothyroxine 75 MCG tablet 75 mcg PO QODAY citalopram 40 mg tablet 40 mg PO DAILY Rx Instructions: 40 mg PO 1 in am lisinopril 40 mg tablet 40 mg PO DAILY atenolol 50 MG tablet 50 mg PO DAILY atorvastatin 40 MG tablet 40 mg PO DAILY lorazepam 1 MG tablet 1 mg PO 4X/DAY Rx Instructions: takes at 0800, 1200, 1600, 2000 bupropion HCl 100 MG tablet 100 mg PO DAILY pantoprazole 40 MG tablet 40 mg PO BID metoclopramide HCl [Reglan] 5 mg tablet 5 mg PO DAILY PRN (Reason: nausea and vomiting) Qty: 10 0RF hydrocodone-acetaminophen 5-325 mg tablet 1 tab PO Q4H PRN PRN (Reason: arm pain) gabapentin 100 mg capsule 200 mg PO 4X/DAY Label Comments: Take 2 capsules by mouth three times daily for 180 days. trazodone 100 mg tablet 100 mg PO QHS Label Comments: TAKE 1 TABLET BY MOUTH EVERY DAY AT BEDTIME oxybutynin chloride 5 mg tablet extended release 24hr 5 mg PO DAILY Label Comments: Take 1 tablet by mouth once daily. Discontinued clopidogrel 75 mg tablet 75 mg PO QODAY Label Comments: 75 mg PO every other day; Rx Instructions: 75 mg PO every other day; Referrals / Follow Up: Zully Rojas MD [Primary Care Provider] - Within 1 Week Kingsley Valera MD [Med Staff - Active Staff] - Within 1 Month Ag Bartlett DO [Med Staff - Active Staff] - Within 1 Month Disposition Disposition (needs filled in before D/C Order can be placed): Home Health Service
[2021-10-12 07:43] VITALS: O2SAT 93
[2021-10-12] MEDS: Gabapentin 100 MG Capsule 200 MG PO (07:43)
[2021-10-12] MEDS: LORazepam 1 MG Tablet PO (07:43)
[2021-10-12] MEDS: Aspirin E.C. 81 MG Tablet PO (07:43)
[2021-10-12 09:30] VITALS: BP 150/86; PULSE 77; RESP 16; TEMP 36.1; O2SAT 95
[2021-10-12] MEDS: buPROPion (SR) 100 MG TABLET.SA PO (09:31)
[2021-10-12] MEDS: Lisinopril 40 MG Tablet PO (09:31)
[2021-10-12] MEDS: TICAGRELOR 90 MG TABLET PO (09:31)
[2021-10-12] MEDS: Tolterodine Tartrate 2 MG CAP.SA PO (09:31)
[2021-10-12] MEDS: Atenolol 50 MG Tablet PO (09:31)
[2021-10-12] MEDS: Citalopram 40 MG TABLET PO (09:31)
--- NOTE | 2021-10-12 09:39 | PCM.DC.SUM ---
Providers Date of Admission: 10/08/21 Primary Care Physician: Dr. Zully Rojas MD Consultations 10/08/21 18:38 Consult: Cardiology Routine Consulting Provider: Kingsley Valera Reason for Consult: Elevated troponin, CAD EMERGENT Consult: No Notified: Yes Date Notified: 10/08/21 Time Notified: 18:09 Method of Notification: Verbal Consult: Gastroenterology Routine Consulting Provider: [facility] Reason for Consult: GI bleed, anemia EMERGENT Consult: No Notified: Yes Date Notified: 10/08/21 Time Notified: 18:09 Method of Notification: Verbal Reason For Visit: ACUTE ANEMIA, ELEVATED TROPONIN, CHEST PAIN Diagnosis Discharge Diagnosis (1) Non-ST elevation (NSTEMI) myocardial infarction: Status: Acute Code(s): I21.4 - Non-ST elevation (NSTEMI) myocardial infarction (2) Anemia: Status: Acute Code(s): D64.9 - Anemia, unspecified Plan 1. Non-STEMI/HTN/HLD/CAD status post CABG ? Troponin was elevated consistent with a non-STEMI ? Cardiology was consulted however cardiac cath had to be delayed secondary to an acute normocytic anemia secondary to a GI bleed ? She was cleared by GI to continue with antiplatelets ? She had multiple drug-eluting stents placed 10/10/2021 in her left circumflex as well as her RCA ? Continue with medical management including blood pressure management and antiplatelets 2. Acute normocytic anemia secondary to GI bleed/GERD ? Multiple AVMs were seen in the colonoscopy, EGD was unremarkable ? The culprit for her GI bleed were cauterized and per GI it was felt safe to proceed with a cardiac cath with heparin and antiplatelets ? Her hemoglobin dropped to 8.3 so we will recheck this afternoon 3. History of TIA/CVA ? Continue with medical management 4. Hypothyroidism ? Stable ? Continue with Synthroid 5. COPD/tobacco abuse/JAIME ? Not in exacerbation ? Continue with inhalers as necessary ? Encourage cessation, she did not want a nicotine patch ? Continue with CPAP at night 6. Anxiety/depression ? Stable ? Continue with her home medications 7. Recent left shoulder fracture following with orthopedic medicine nonoperative DVT: SCDs Medications at Discharge Home Medications aspirin 81 mg tablet,delayed release 81 mg PO DAILY@0800 [facility] 09/06/17 levothyroxine 75 mcg tablet 75 mcg PO QODAY thyroid 09/06/17 citalopram 40 mg tablet 40 mg PO DAILY depression 12/18/17 lisinopril 40 mg tablet 40 mg PO DAILY blood pressure 12/18/17 atenolol 50 mg tablet 50 mg PO DAILY heart rate 01/05/18 atorvastatin 40 mg tablet 40 mg PO DAILY cholesterol 01/05/18 lorazepam 1 mg tablet 1 mg PO 4X/DAY anxiety 06/28/18 albuterol sulfate 0.63 mg/3 mL solution for nebulization 0.63 mg inhalation Q4H PRN Congestion 07/14/18 bupropion HCl 100 mg tablet 100 mg PO DAILY mood 01/16/19 pantoprazole 40 mg tablet,delayed release 40 mg PO BID gerd 01/16/19 metoclopramide HCl 5 mg tablet (Reglan) 5 mg PO DAILY PRN nausea and vomiting #10 tabs 06/04/21 gabapentin 100 mg capsule 200 mg PO 4X/DAY pain 10/08/21 hydrocodone-acetaminophen 5-325mg 5mg-325mg 1 tab PO Q4H PRN PRN arm pain 10/08/21 oxybutynin chloride 5 mg tablet,extended release 24 hr 5 mg PO DAILY bladder 10/08/21 trazodone 100 mg tablet 100 mg PO QHS sleep 10/08/21 ticagrelor 90 mg tablet (Brilinta) 90 mg PO BID #60 tabs 10/12/21 Hospital Course Operations None Procedures 2-D Echocardiogram, Cardiac catheterization, Colonoscopy and EGD Summary of Care Provided Minutes Spent on Discharge: 45 Hospital Course: Per HPI: MAURICE WALLACE, is a 76 F who presents to the emergency room due to chest pain.? Patient is a poor informant.? When asked how long she has been having chest pain she states I don't care.? She denies shortness of breath.? States her pain is currently resolved.? She states she has intermittent blood in stool at home however this is somewhat chronic for her.? She denies other associated symptoms.? Denies any aggravating or alleviating factors.? She has a past medical history of TIA/CVA, hypertension, hyperlipidemia, hypothyroidism, CAD with history of CABG/stents, COPD, depression/anxiety, GERD, tobacco dependence. Hospital Course: 1.? Non-STEMI/HTN/HLD/CAD status post CABG ? Troponin was elevated consistent with a non-STEMI ? Cardiology was consulted however cardiac cath had to be delayed secondary to an acute normocytic anemia secondary to a GI bleed ? She was cleared by GI to continue with antiplatelets ? She had multiple drug-eluting stents placed 10/10/2021 in her left circumflex as well as her RCA ? Continue with medical management including blood pressure management and antiplatelets ? I discussed with her the plan for discharge today she expressed understanding Erisman of going home and would like to go home today. She was Yesterday because her recheck hemoglobin in the afternoon went down to 8.1 however this morning hemoglobin was 8.5 indicating stability. I do recommend that she follow-up with gastroenterology as an outpatient in the next several weeks as well as cardiology and her primary care doctor. She will be continued on aspirin and Brilinta though this is extras based on cost may need to transition back to daily Plavix as an outpatient. 2.? Acute normocytic anemia secondary to GI bleed/GERD ? Multiple AVMs were seen in the colonoscopy, EGD was unremarkable ? The culprit for her GI bleed were cauterized and per GI it was felt safe to proceed with a cardiac cath with heparin and antiplatelets ? Her hemoglobin stable at 8.5 3.? History of TIA/CVA ? Continue with medical management 4.? Hypothyroidism ? Stable ? Continue with Synthroid 5.? COPD/tobacco abuse/JAIME ? Not in exacerbation ? Continue with inhalers as necessary ? Encourage cessation, she did not want a nicotine patch ? Continue with CPAP at night 6.? Anxiety/depression ? Stable ? Continue with her home medications 7.? Recent left shoulder fracture following with orthopedic medicine nonoperative Physical Exam Narrative General: Alert, Oriented x3, Cooperative, No apparent distress HEENT: Atraumatic, PERRLA, EOMI, Normocephalic Oral: Moist Mucosa Neck: Supple, No JVD Lungs: Diminished, Normal air movement, No rhonchi, No wheeze, No rales Cardiovascular: Regular rate, Regular Rhythm, Normal S1, Normal S2, No murmurs Abdomen: Soft, Non Tender, Non-Distended, No Hepato-splenomegaly Extremities: No edema, Capillary Refill Less than 3 Seconds Skin: No rashes, No breakdown Musculoskeletal: No Tenderness to Palpation of Joints or Extremities Neurological: Cranial nerves II-XII grossly intact, Motor Exam 5/5 strength throughout, Sensory exam intact to light touch and pain Psych/Mental Status: Normal Affect, Appropriate Weight / BMI Weight Weight: 150 lb 9.211 oz Body Mass Index (BMI) 28.4 ABG / Lab / Microbiology Data Result Diagrams: 10/12/21 06:30 10/11/21 05:49 Laboratory: Laboratory Results - last 24 hr 10/11/21 12:25: Hgb 8.1 L, Hct 27.6 L 10/12/21 06:30: WBC 8.5, RBC 3.45 L, Hgb 8.5 L, Hct 28.2 L, MCV 81.7, MCH 24.6 L, MCHC 30.1 L, RDW Std Deviation 43.0, RDW Coeff of John 14.6, Plt Count 384, MPV 10.1, Immature Gran % (Auto) 0.400, Neut % (Auto) 63.7, Lymph % (Auto) 25.0, [place] % (Auto) 6.8, Eos % (Auto) 3.5, Baso % (Auto) 0.6, Absolute Neuts (auto) 5.4, Absolute Lymphs (auto) 2.13, Nucleated RBC % 0 Microbiology: Microbiology 10/08/21 16:55 Stool Stool Occult Blood (KINZA) - Final Occult Blood Positive D/C Instructions Discharge Diet: Low fat / Low cholesterol Call your doctor if you observe: Fever of 101 or Higher, Shortness of breath, Dizziness, Fainting spells, Swelling in the ankles, Chest pain and Increased palpitations (irregular heartbeat) Meaningful Use Info Meaningful Use Diagnoses (Choose all that apply): None applicable Discharge Plan Admission Admit Date/Time: 10/08/21 18:03 Attending Provider: Cruz Roberts Primary Care Provider: Zully Rojas Consulting Providers: Kingsley Valera ; Christian King Discharge Orders/Prescriptions Prescriptions: New Brilinta 90 mg Tablet 90 mg PO BID Qty: 60 0RF Continued albuterol sulfate 0.63 mg/3 mL solution for nebulization 0.63 mg INHALATION Q4H PRN (Reason: Congestion) aspirin 81 MG tablet 81 mg PO DAILY@0800 levothyroxine 75 MCG tablet 75 mcg PO QODAY citalopram 40 mg tablet 40 mg PO DAILY Rx Instructions: 40 mg PO 1 in am lisinopril 40 mg tablet 40 mg PO DAILY atenolol 50 MG tablet 50 mg PO DAILY atorvastatin 40 MG tablet 40 mg PO DAILY lorazepam 1 MG tablet 1 mg PO 4X/DAY Rx Instructions: takes at 0800, 1200, 1600, 2000 bupropion HCl 100 MG tablet 100 mg PO DAILY pantoprazole 40 MG tablet 40 mg PO BID metoclopramide HCl [Reglan] 5 mg tablet 5 mg PO DAILY PRN (Reason: nausea and vomiting) Qty: 10 0RF hydrocodone-acetaminophen 5-325 mg tablet 1 tab PO Q4H PRN PRN (Reason: arm pain) gabapentin 100 mg capsule 200 mg PO 4X/DAY Label Comments: Take 2 capsules by mouth three times daily for 180 days. trazodone 100 mg tablet 100 mg PO QHS Label Comments: TAKE 1 TABLET BY MOUTH EVERY DAY AT BEDTIME oxybutynin chloride 5 mg tablet extended release 24hr 5 mg PO DAILY Label Comments: Take 1 tablet by mouth once daily. Discontinued clopidogrel 75 mg tablet 75 mg PO QODAY Label Comments: 75 mg PO every other day; Rx Instructions: 75 mg PO every other day; Referrals / Follow Up: Kingsley Valera MD [Med Staff - Active Staff] - Within 1 Month Ag Bartlett DO [Med Staff - Active Staff] - Within 1 Month ALEKSEY TAYLOR NP-C [Non-Staff] - 10/17/21 9:40 am Disposition Disposition (needs filled in before D/C Order can be placed): Home Health Service Charges/Coding Visit Charges Inpatient E&M: 66897 Disch Hosp
--- NOTE | 2021-10-12 10:00 | EKG12_ITS ---
Test Reason : am EKG Blood Pressure : / mmHG Vent. Rate : 064 BPM Atrial Rate : 064 BPM P-R Int : 232 ms QRS Dur : 090 ms QT Int : 450 ms P-R-T Axes : 058 049 -78 degrees QTc Int : 464 ms Sinus rhythm with 1st degree A-V block Nonspecific ST and T wave abnormality Abnormal ECG When compared with ECG of 11-OCT-2021 06:01, No significant change was found Confirmed by MINE GOLD, GOPAL ([id number]), editor farm journal WALLY LOAIZA ([id number]) on 10/15/2021 9:24:43 AM Referred By: Mine Confirmed By:BRAN BLOUNT MD
--- NOTE | 2021-10-16 12:23 | CASEMGMT ---
Request from [employer] was received. MARYJANE completed online for [employer] Prior Auth.
== END 2021-10-12 11:04 | disposition home health service (06) | DRG 246 ==
LOC: ED 15:58 → PCU 18:28
PROVIDERS: Internal Medicine Gastroenterology; Nurse Practitioner Family; Specialist; Admitting Provider Internal Medicine; Emergency Provider Emergency Medicine; PCP Internal Medicine; Visit Provider Family Medicine
PROC: 0DJD8ZZ Inspection of Lower Intestinal Tract, Via Natural or Artificial Opening Endoscopic (ICD-10-PCS; CPT 45378; principal; 2021-10-09 12:55)
DX: I21.4 Non-ST elevation (NSTEMI) myocardial infarction (principal); K55.21 Angiodysplasia of colon with hemorrhage; K55.9 Vascular disorder of intestine, unspecified; D62 Acute posthemorrhagic anemia; T82.855A Stenosis of coronary artery stent, initial encounter; K62.5 Hemorrhage of anus and rectum; J44.9 Chronic obstructive pulmonary disease, unspecified; I77.9 Disorder of arteries and arterioles, unspecified; F17.210 Nicotine dependence, cigarettes, uncomplicated; E03.9 Hypothyroidism, unspecified; E78.00 Pure hypercholesterolemia, unspecified; I10 Essential (primary) hypertension; G47.33 Obstructive sleep apnea (adult) (pediatric); K64.4 Residual hemorrhoidal skin tags; I44.0 Atrioventricular block, first degree; F41.9 Anxiety disorder, unspecified; K21.9 Gastro-esophageal reflux disease without esophagitis; E78.5 Hyperlipidemia, unspecified; M51.36 Other intervertebral disc degeneration, lumbar region; K64.8 Other hemorrhoids; K44.9 Diaphragmatic hernia without obstruction or gangrene; K62.1 Rectal polyp; K57.30 Diverticulosis of large intestine without perforation or abscess without bleeding; I25.10 Atherosclerotic heart disease of native coronary artery without angina pectoris; Z79.01 Long term (current) use of anticoagulants; S42.292D Other displaced fracture of upper end of left humerus, subsequent encounter for fracture with routine healing; Z79.02 Long term (current) use of antithrombotics/antiplatelets; Z79.82 Long term (current) use of aspirin; Z82.3 Family history of stroke; F32.A Depression, unspecified; Z90.49 Acquired absence of other specified parts of digestive tract; Z95.1 Presence of aortocoronary bypass graft; Z95.5 Presence of coronary angioplasty implant and graft; Z86.73 Personal history of transient ischemic attack (TIA), and cerebral infarction without residual deficits
CPT/HCPCS: 36415; 71046; 71275; 80048; 80053; 82274; 84484; 85014; 85018; 85025; 85027; 88305; 88341; 88342; 92928; 93005; 93306; 93455; 93880; 99152; 99153; 99285; 99406; C1874; J7120; Q9967; A4216; C1725; C1760; C1769; C1887; C9600; J2405

== ENCOUNTER 2021-10-20 09:58 | Inpatient (IN) | payer MEDICARE, SELFPAY ==
[2017-12-28 13:50] VITALS: BMI 29.2
[2021-10-20] VITALS (15 sets, daily range): BP systolic 104–133; BP diastolic 36–57; PULSE 59–77; RESP 16–24; TEMP 36.2–36.9; O2SAT 92–100; BMI 29.6; BMI 29.1
--- NOTE | 2021-10-20 10:41 | EKG12_ITS ---
Test Reason : GI BLEED Blood Pressure : / mmHG Vent. Rate : 060 BPM Atrial Rate : 060 BPM P-R Int : 172 ms QRS Dur : 094 ms QT Int : 454 ms P-R-T Axes : 073 054 -21 degrees QTc Int : 454 ms Normal sinus rhythm T wave abnormality, consider lateral ischemia Abnormal ECG Confirmed by CONSUELO GOLD, EDDY ([id number]), medical transcription editor WALLY LOAIZA ([id number]) on 10/21/2021 10:21:55 AM Referred By: BRENDAN Confirmed By:EDDY CORDERO MD
--- NOTE | 2021-10-20 10:42 | ED.VIS.GI ---
HPI HPI - GI History of Present Illness Chief Complaint: GI Bleed Detail of Chief Complaint: Rectal bleeding that started again today Informant: patient and family Narrative Narrative: Patient presents the emergency department with rectal bleeding that started again today. Patient had recent AL last week and required stent placement and angioplasty. She is on Brilinta. Patient also at the same time had a colonoscopy and was diagnosed with a rectal cancer and she is in the process of being worked up for this. Her daughter tells me that during her stay in the hospital her hemoglobin had dropped down to 8 at 1 point but never required a transfusion. Patient also is known to have a hemorrhoid. Today her boyfriend called EMS because she was having profuse rectal bleeding. Patient also has been weak and appeared pale. Patient denies any chest pain or abdominal pain. Patient has been very anxious due to recent diagnosis of rectal cancer. [facility] Medical History (Updated 10/20/21 @ 11:[address] 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 Back pain Benzodiazepine dependence COPD (chronic obstructive pulmonary disease) Essential (primary) hypertension Guaiac positive stools H/O: pneumonia Hemorrhoids, external Hyperlipidemia Hypothyroidism Nicotine dependence Non-rheumatic tricuspid valve insufficiency Non-ST elevation (NSTEMI) myocardial infarction Obstructive sleep apnea Secondary pulmonary arterial hypertension TIA (transient ischemic attack) Home Medications aspirin 81 mg tablet,delayed release 81 mg PO DAILY@0800 heart health 09/06/17 [History Last Taken 10/08/21] levothyroxine 75 mcg tablet 75 mcg PO QODAY thyroid 09/06/17 [History Last Taken 10/07/21] citalopram 40 mg tablet 40 mg PO DAILY depression 12/18/17 [History Last Taken 10/08/21] lisinopril 40 mg tablet 40 mg PO DAILY blood pressure 12/18/17 [History Last Taken 10/08/21] atenolol 50 mg tablet 50 mg PO DAILY heart rate 01/05/18 [History Last Taken 10/08/21] atorvastatin 40 mg tablet 40 mg PO DAILY cholesterol 01/05/18 [History Last Taken 10/07/21] lorazepam 1 mg tablet 1 mg PO 4X/DAY anxiety 06/28/18 [History Last Taken 10/08/21] albuterol sulfate 0.63 mg/3 mL solution for nebulization 0.63 mg inhalation Q4H PRN Congestion 07/14/18 [History Last Taken 1 Week Ago ~10/01/21] bupropion HCl 100 mg tablet 100 mg PO DAILY mood 01/16/19 [History Last Taken 10/08/21] pantoprazole 40 mg tablet,delayed release 40 mg PO BID gerd 01/16/19 [History Last Taken 10/08/21] metoclopramide HCl 5 mg tablet (Reglan) 5 mg PO DAILY PRN nausea and vomiting #10 tabs 06/04/21 [Rx Last Taken Unknown] gabapentin 100 mg capsule 200 mg PO 4X/DAY pain 10/08/21 [History Last Taken 10/07/21] hydrocodone-acetaminophen 5-325mg 5mg-325mg 1 tab PO Q4H PRN PRN arm pain 10/08/21 [History Last Taken 10/07/21] oxybutynin chloride 5 mg tablet,extended release 24 hr 5 mg PO DAILY bladder 10/08/21 [History Last Taken 10/08/21] trazodone 100 mg tablet 100 mg PO QHS sleep 10/08/21 [History Last Taken 10/07/21] ticagrelor 90 mg tablet (Brilinta) 90 mg PO BID #60 tabs 10/12/21 [Rx Last Taken Unknown] Allergy/AdvReac Type Severity Reaction Status Date / Time morphine Allergy PT UNSURE Verified 10/08/21 13:33 Penicillins Allergy Hives Verified 10/08/21 13:33 tramadol HCl [From Ultram] Allergy PT UNSURE Verified 10/08/21 13:33 bupropion [From Wellbutrin] AdvReac hallucinati Verified 10/08/21 13:33 ons Family History (Updated 10/08/21 @ 17:52 by Abena Dennis NP, [employer]) Father Heart disease of heart attack at age 64 Mother Cancer of cancer at age 72 CVA (cerebral vascular accident) Surgical History (Updated 10/11/21 @ 16:59 by Andreea Lopez) History of appendectomy History of coronary artery bypass graft x 3 History of coronary artery stent placement (10/10/21) History of left heart catheterization (12/28/17) Hx of cholecystectomy Social History (Updated 10/08/21 @ 17:52 by Abena Dennis NP, [employer]) household members: significant other Smoking Status: Current every day smoker tobacco type: cigarettes details: Patient denies alcohol use substance use type: does not use ROS ROS ED Review of Systems ROS Unobtainable: other Constitutional Constitutional ED: Reports lethargy; Denies chills, fever(s), sweats or weight loss Eyes Eyes: Denies blurry vision, change in vision or diplopia ENT ENT ED: Denies rhinorrhea or sore throat Cardiovascular Cardiovascular: Denies chest pain, orthopnea or racing heartbeat Respiratory/Chest Respiratory/Chest: Denies cough, dyspnea, dyspnea on exertion, orthopnea or sputum Gastrointestinal Gastrointestinal: Reports other Details: Rectal bleeding, rectal hemorrhoid ; Denies abdominal pain, diarrhea, nausea or vomiting Genitourinary Genitourinary ED: Denies dysuria, hematuria or urinary frequency Musculoskeletal Musculoskeletal: Denies arthralgias, back pain, myalgias or neck pain Integumentary Denies abscess, Abrasions or rash Neurologic Neurologic: Reports weakness; Denies headache(s) Psychiatric Psychiatric: Denies anxiety, depression or suicidal thoughts Endocrine Endocrinology: Denies polydipsia, polyphagia or polyuria Hematologic/Lymphatic Hematologic/Lymphatic: Denies easy bleeding, easy bruising or lymphadenopathy Allergic/Immunologic Allergic/Immunologic ED: Denies mouth swelling, tongue swelling or urticaria EXAM Physical Exam Const Vital Signs: 10/20/21 09:59 Temperature 98.0 F Temperature Source Temporal Pulse Rate 64 Respiratory Rate 24 H Blood Pressure 104/46 L Blood Pressure Mean 65 Pulse Ox 92 Oxygen Delivery Method Room Air Positive well nourished and well developed General Appearance ED: well developed and NAD HEENT Reports TM's clear and moist mucous membranes normocephalic and atraumatic; Negative for trauma or tenderness Tympanic Membrane ED: Yes TM's clear Eyes PERRL and EOMs intact bilaterally General Eye ED: Negative for pale conjunctiva or scleral icterus Neck no lymphadenopathy, supple and no JVD General: Negative for tenderness Chest Wall inspection of chest normal and palpation of chest normal Chest: Negative for tenderness Resp normal respiratory effort and clear to auscultation bilaterally Effort and Inspection: Negative for respiratory distress or pain with movement Auscultation: Negative for rhonchi, wheezes or diminished lung sounds Cardio regular rate, regular rhythm, S1 normal heart sound, S2 normal heart sound and no murmurs Peripheral Pulses: pulses 2+ throughout GI normal to inspection, nondistended, normoactive bowel sounds, soft to palpation, non-tender, non-distended and no masses GI Narrative: Rectal exam performed. Patient does have a hemorrhoid noted at the 6 o'clock position of the rectum that is excoriated and somewhat friable without any evidence of active rectal bleeding noted. Back/Spine no CVA tenderness and no thoracic nor lumbar tenderness Extremity normal to inspection General Extremety ED: Negative for edema General Extremity: Negative for edema Neuro oriented x3, CN's II-XII intact bilaterally, no sensory deficits noted and gait normal Sensorium / Orientation: awake, alert, oriented to person, oriented to place and oriented to time Motor Exam: strength 5/5 throughout and strength abnormal Psych mental status grossly normal Skin no rashes or lesions noted and no wounds MDM MDM MDM Narrative Medical decision making narrative: IV line established on arrival. 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 EKG obtained showed sinus rhythm with some nonspecific ST changes. CBC with differential showed a week of 15.7, hemoglobin was 7.9, hematocrit 28, platelets 517. Chemistries were unremarkable. Urine unremarkable. At this point Case will be discussed with hospitalist evaluate patient for admission for lower GI bleed with anemia and generalized weakness. The source of her bleeding is unclear its possible it may be related to her hemorrhoid but also on prior colonoscopy had areas that needed to be cauterized within the colon. Patient did drop her hemoglobin from 9 yesterday to 7.9 today. Lab Data Attestation: I reviewed the patient's lab results. Labs: Laboratory Results - last 24 hr 10/20/21 10/20/21 10/20/21 09:43 09:43 09:54 WBC 15.7 H RBC 3.36 L Hgb 7.9 L Hct 28.2 L MCV 83.9 MCH 23.5 L MCHC 28.0 L RDW Std Deviation 45.4 H RDW Coeff of John 15.0 H Plt Count 517 H MPV 10.6 Immature Gran % (Auto) 0.800 Neut % (Auto) 56.8 Lymph % (Auto) 34.8 [place] % (Auto) 5.5 Eos % (Auto) 1.7 Baso % (Auto) 0.4 Absolute Neuts (auto) 8.9 H Absolute Lymphs (auto) 5.46 H Nucleated RBC % 0 Differential Comment SCANNED Sodium 141 Potassium 3.9 Chloride 108 H Carbon Dioxide 27.0 Anion Gap 6 BUN 20 H Creatinine 0.96 Estim Creat Clear Calc 38.80 Est GFR (MDRD) Af Amer 73 Est GFR (MDRD) Non-Af 61 BUN/Creatinine Ratio 20.9 H Glucose 156 H Calcium 8.2 L Troponin I High Sens 23 Urine Color Urine Clarity Urine pH Ur Specific [place] Urine Protein Urine Glucose (UA) Urine Ketones Urine Occult Blood Urine Nitrite Urine Bilirubin Urine Urobilinogen Ur Leukocyte Esterase Urine RBC Urine WBC Ur Squamous Epith Cells Urine Bacteria Urine Mucus Blood Type O POSITIVE Antibody Screen NEGATIVE 10/20/21 11:20 WBC RBC Hgb Hct MCV MCH MCHC RDW Std Deviation RDW Coeff of John Plt Count MPV Immature Gran % (Auto) Neut % (Auto) Lymph % (Auto) [place] % (Auto) Eos % (Auto) Baso % (Auto) Absolute Neuts (auto) Absolute Lymphs (auto) Nucleated RBC % Differential Comment Sodium Potassium Chloride Carbon Dioxide Anion Gap BUN Creatinine Estim Creat Clear Calc Est GFR (MDRD) Af Amer Est GFR (MDRD) Non-Af BUN/Creatinine Ratio Glucose Calcium Troponin I High Sens Urine Color Yellow Urine Clarity Clear Urine pH 5.0 Ur Specific [place] 1.015 Urine Protein Negative Urine Glucose (UA) Normal Urine Ketones Negative Urine Occult Blood Negative Urine Nitrite Negative Urine Bilirubin Negative Urine Urobilinogen Normal Ur Leukocyte Esterase Negative Urine RBC 0 SEEN Urine WBC 0 SEEN Ur Squamous Epith Cells 0 SEEN Urine Bacteria 0 SEEN Urine Mucus 0 SEEN Blood Type Antibody Screen EKG Initial EKG: Attestation: I personally reviewed and interpreted this EKG as follows: Comments: Sinus rhythm with a rate of [address] changes Discharge Plan Dx/Rx/DC Orders Clinical Impression: Acute lower GI bleeding, Anemia, Generalized weakness, History of rectal cancer Disposition Disposition: Acute Care Hospital [facility]
[2021-10-20 11:09] LABS: Absolute Lymphocyte Count 5.46 X10^3/uL (0.83-4.51); Absolute Neutrophil Count 8.9 X10^3/uL (2.0-7.7); Basophil# 0.06 X10^3/uL; Basophil% 0.4 % (0-1); Eosinophil# 0.26 X10^3/uL; Eosinophils% 1.7 % (0-5); Hematocrit 28.2 % (37-47); Hemoglobin 7.9 g/dL (12.0-15.0); Lymphocyte # 5.46 X10^3/ul (0.83-4.51); Lymphocyte % 34.8 % (19-41); Mean Corpuscular Hgb 23.5 pg (27.0-32.0); Mean Corpuscular Volume 83.9 fL (81-99); Mean Platelet Vol. 10.6 fl (6.2-12.0); Monocyte# 0.87 X10^3/uL; Monocyte% 5.5 % (0-10); NRBC Flagged by Analyzer 0 % (0-5); Neutrophil # 8.91 X10^3/uL (2.7-7.7); Neutrophil % 56.8 % (47-70); POSITIVE DIFFERENTIAL YES; Platelet Count 517 K/mm3 (150-450); RBC Distribution Width SD 45.4 fl (35.1-43.9); Red Blood Count 3.36 M/mm3 (4.2-5.4); White Blood Count 15.7 K/mm3 (4.4-11.0)
[2021-10-20] MEDS: 0.9% Normal Saline 1,000 ML 150 ML IV (11:10)
[2021-10-20 11:17] LABS: Differential Indicated SCAN CRITERIA MET
[2021-10-20 11:26] LABS: Anion Gap 6 (5-15); BUN 20 mg/dL (7-18); BUN/Creat Ratio 20.9 RATIO (10-20); Calcium,Total 8.2 mg/dL (8.5-10.1); Chloride 108 mmol/L (98-107); Creatinine, Serum 0.96 mg/dL (0.55-1.02); EST Glomerular Filtration Rate 61 mL/min (>60); Est Glom Filt Rate - Afr Amer 73 mL/min (>60); Glucose 156 mg/dL (74-106); Potassium 3.9 mmol/L (3.5-5.1); Sodium Level 141 mmol/L (136-145); Troponin-I HS 23 pg/mL (3.0-54.0)
[2021-10-20 11:30] LABS: Bacteria 0 SEEN /hpf (None Seen); Mucous, Urine 0 SEEN /hpf (<or=2+); Red Blood Cells-Urine 0 SEEN /hpf (0-5); Squamous Epithelial Cells - UA 0 SEEN /hpf (5-10); White Blood Cells 0 SEEN /hpf (0-5)
[2021-10-20 11:32] LABS: Color, Urine Yellow (Yellow); Glucose, Dipstick Normal (Normal); Ketone-Dipstick Negative (Negative); Leukocyte Esterase-Dipstick Negative /ul (Negative); Nitrite-Dipstick Negative (Negative); Occult Blood-Urine Negative /ul (Negative); Protein-Dipstick Negative (Negative); Specific Gravity, Urine 1.015 (1.002-1.030); Urine Bilirubin Dipstick Negative (Negative); Urine Clarity Clear (Clear); Urine Urobilinogen Normal (Normal)
[2021-10-20 11:35] LABS: Differential Comment SCANNED
--- NOTE | 2021-10-20 12:09 | NURSING ---
MED SURG LUIS GI BLEED, WEAKNESS
--- NOTE | 2021-10-20 12:14 | HP.PCM.HOS_ITS ---
HPI - General General Date of Admission: 10/20/21 Date of Service: 10/20/21 Chief Complaint: Sudden onset of 4 episode of rectal bleed today HPI Narrative MAURICE WALLACE, is a 76 F with a distant history of coronary status post 2 stents after EGD and colonoscopy during previous admission 10/08/2021 to 10/12/2021 came back to ED with rectal bleed 4 episodes today. Patient stated her initial rectal bleed was brownish/black in color and then was red in color. Rest 3 were large in quantity red in color. She also felt dizzy and lightheaded and felt like almost going to pass out but she did not pass out. Denies palpitation, chest pain or shortness of breath. She looks pale. EMS note reviewed. BP 70/40, heart rate 48/min, respiratory to 16 which increased 210/40/62 on resuscitation by EMS. As per EMS note, patient was diaphoretic pale and unresponsive but patient states she did not pass out. She denies abdominal pain but felt mild discomfort in both lower quadrants. Patient also very anxious due to recent diagnosis of anal cancer. Initial work-up in ED shows hemoglobin 7.9, platelet count on 517 K and leukocytosis. Twelve-lead EKG normal sinus rhythm with T wave inversion lateral leads similar to previous EKG. QTc 0.435 seconds. Patient is getting volume status. Dr. Bartlett has been consulted [facility] Medical History Anxiety and depression Atherosclerosis of coronary artery of [place] heart with angina pectoris Back pain Benzodiazepine dependence COPD (chronic obstructive pulmonary disease) Essential (primary) hypertension Guaiac positive stools H/O: pneumonia Hemorrhoids, external Hyperlipidemia Hypothyroidism Nicotine dependence Non-rheumatic tricuspid valve insufficiency Non-ST elevation (NSTEMI) myocardial infarction Obstructive sleep apnea Secondary pulmonary arterial hypertension TIA (transient ischemic attack) Home Medications aspirin 81 mg tablet,delayed release 81 mg PO DAILY@0800 heart health 09/06/17 [History Last Taken 10/08/21] levothyroxine 75 mcg tablet 75 mcg PO QODAY thyroid 09/06/17 [History Last Taken 10/07/21] citalopram 40 mg tablet 40 mg PO DAILY depression 12/18/17 [History Last Taken 10/08/21] lisinopril 40 mg tablet 40 mg PO DAILY blood pressure 12/18/17 [History Last Taken 10/08/21] atenolol 50 mg tablet 50 mg PO DAILY heart rate 01/05/18 [History Last Taken 10/08/21] atorvastatin 40 mg tablet 40 mg PO DAILY cholesterol 01/05/18 [History Last Taken 10/07/21] lorazepam 1 mg tablet 1 mg PO 4X/DAY anxiety 06/28/18 [History Last Taken 10/08/21] albuterol sulfate 0.63 mg/3 mL solution for nebulization 0.63 mg inhalation Q4H PRN Congestion 07/14/18 [History Last Taken 1 Week Ago ~10/01/21] bupropion HCl 100 mg tablet 100 mg PO DAILY mood 01/16/19 [History Last Taken 10/08/21] pantoprazole 40 mg tablet,delayed release 40 mg PO BID gerd 01/16/19 [History Last Taken 10/08/21] metoclopramide HCl 5 mg tablet (Reglan) 5 mg PO DAILY PRN nausea and vomiting #10 tabs 06/04/21 [Rx Last Taken Unknown] gabapentin 100 mg capsule 200 mg PO 4X/DAY pain 10/08/21 [History Last Taken 10/07/21] hydrocodone-acetaminophen 5-325mg 5mg-325mg 1 tab PO Q4H PRN PRN arm pain 10/08/21 [History Last Taken 10/07/21] oxybutynin chloride 5 mg tablet,extended release 24 hr 5 mg PO DAILY bladder 10/08/21 [History Last Taken 10/08/21] trazodone 100 mg tablet 100 mg PO QHS sleep 10/08/21 [History Last Taken 10/07/21] ticagrelor 90 mg tablet (Brilinta) 90 mg PO BID #60 tabs 10/12/21 [Rx Last Taken Unknown] Allergy/AdvReac Type Severity Reaction Status Date / Time morphine Allergy PT UNSURE Verified 10/08/21 13:33 Penicillins Allergy Hives Verified 10/08/21 13:33 tramadol HCl [From Ultram] Allergy PT UNSURE Verified 10/08/21 13:33 bupropion [From Wellbutrin] AdvReac hallucinati Verified 10/08/21 13:33 ons Family History Father Heart disease of heart attack at age 64 Mother Cancer of cancer at age 72 CVA (cerebral vascular accident) Surgical History History of appendectomy History of coronary artery bypass graft x 3 History of coronary artery stent placement (10/10/21) History of left heart catheterization (12/28/17) Hx of cholecystectomy Social History household members: significant other Smoking Status: Current every day smoker tobacco type: cigarettes details: Patient denies alcohol use substance use type: does not use ROS ROS Narrative Constitutional: Reports fatigue and severe weakness. No fever. HEENT: Reports systems reviewed and no addt'l complaints, except as documented Respiratory/Chest: Denies chest pain, shortness of breath at rest. Mild shortness of breath on exertion. Gastrointestinal: No vomiting hematemesis but rectal bleed admission HPI Genitourinary: Denies burning urination or new urinary tract symptoms Musculoskeletal: Reports joint pain and limited range of motion Neurologic: Denies seizure-like activity skin: No ulcer. No rash Endocrinology: Reports systems reviewed and no addt'l complaints, except as documented Hematologic/Lymphatic: Reports systems reviewed and no addt'l complaints, except as documented Rest 14 ROS are negative except as mentioned in HPI Vital Signs Vital Signs Vital Signs: 10/20/21 09:59 Temperature 98.0 F Temperature Source Temporal Pulse Rate 64 Respiratory Rate 24 H Blood Pressure 104/46 L Blood Pressure Mean 65 Pulse Ox 92 Oxygen Delivery Method Room Air Weight Weight: 156 lb 15.506 oz Body Mass Index (BMI) 29.6 Physical Exam Narrative Physical exam General: Alert, Oriented x3, Cooperative HEENT: Atraumatic, PERRLA, EOMI, Normocephalic Oral: Oral mucosa dry. No mucosal bleed. No Gingival or Mucosal Lesions/ Ulcerations Neck: Supple, No JVD, Negative Carotid Bruits Lungs: Air entry diminished in bilateral lung bases. No crepitation/rhonchi Cardiovascular: Regular rate, Regular Rhythm, Normal S1, Normal S2, No murmurs Abdomen: Bowel Sounds Present, Soft, Non Tender, Non-Distended Rectal exam: External hemorrhoids, none reducible, nontender. On entering anal canal, 2 cm very tender mass felt from 3:00 to 9 o'clock position. Could not be evaluated in detail as it was painful. Mild finger extending with altered blood . : No renal angle tenderness. No suprapubic tenderness. Extremities: No edema, Capillary Refill Less than 3 Seconds Skin: No rashes, No breakdown Musculoskeletal: No Tenderness to Palpation of Joints or Extremities Neurological: Cranial nerves II-XII grossly intact, DTR 2+/4 and Symmetrical, Neuro grossly intact Psych/Mental Status: Flat affect, anxious, depressed Results Lab / Micro Data Result Diagrams: 10/20/21 09:43 10/20/21 09:43 Labs: Laboratory Results - last 24 hr 10/20/21 09:43: WBC 15.7 H, RBC 3.36 L, Hgb 7.9 L, Hct 28.2 L, MCV 83.9, MCH 23.5 L, MCHC 28.0 L, RDW Std Deviation 45.4 H, RDW Coeff of John 15.0 H, Plt Count 517 H, MPV 10.6, Immature Gran % (Auto) 0.800, Neut % (Auto) 56.8, Lymph % (Auto) 34.8, [place] % (Auto) 5.5, Eos % (Auto) 1.7, Baso % (Auto) 0.4, Absolute Neuts (auto) 8.9 H, Absolute Lymphs (auto) 5.46 H, Nucleated RBC % 0, Differential Comment SCANNED 10/20/21 09:43: Sodium 141, Potassium 3.9, Chloride 108 H, Carbon Dioxide 27.0, Anion Gap 6, BUN 20 H, Creatinine 0.96, Estim Creat Clear Calc 38.80, Est GFR (MDRD) Af Amer 73, Est GFR (MDRD) Non-Af 61, BUN/Creatinine Ratio 20.9 H, Glucose 156 H, Calcium 8.2 L, Troponin I High Sens 23 10/20/21 09:54: Blood Type O POSITIVE, Antibody Screen NEGATIVE 10/20/21 11:20: Urine Color Yellow, Urine Clarity Clear, Urine pH 5.0, Ur Specific [place] 1.015, Urine Protein Negative, Urine Glucose (UA) Normal, Urine Ketones Negative, Urine Occult Blood Negative, Urine Nitrite Negative, Urine Bilirubin Negative, Urine Urobilinogen Normal, Ur Leukocyte Esterase Negative, Urine RBC 0 SEEN, Urine WBC 0 SEEN, Ur Squamous Epith Cells 0 SEEN, Urine Bacteria 0 SEEN, Urine Mucus 0 SEEN Assessment & Plan Assessment/Plan (1) Acute lower GI bleeding: PLAN: Plan This is 76-year-old is being admitted in PCU for sudden onset of rectal bleed, 4 times with symptomatic anemia, low blood pressure and bradycardia as documented by EMS. 1. Acute blood loss anemia due to sudden onset of GI bleed most likely lower GI site: Patient had hypotension, BP 70/40, bradycardia 48/min, and possible syncope as documented by EMS. IV fluid resuscitation Ringer lactate. Monitor intake and output and keep urine 1 mL/kg/h. Hemoglobin dropped from 9.1 g on 10/17-7.9 today. 1 unit PRBC ordered. IV Protonix 80 mg bolus and then continuous drip. GI Dr. Bartlett is consulted and I discussed with him. He will evaluate the patient today and plan for possible scope tomorrow. On clear liquid. 2. Recent diagnosis of anal mass: On colonoscopy on 10/09/2021, a frond-like villous nonobstructing medium-sized mass, none circumferential 3 cm length by 4 mm wide oozing was found for which cold biopsy was taken. Moderate inflammation and erosion, erythema and facility over rectosigmoid colon suspicion of ischemic colitis. Patient also had [place] diverticulosis in the rectosigmoid and sigmoid colon. 2 small angiodysplastic lesion with bleeding found in the splenic flexure which was coagulated. Monitor polyp found in the rectum, sessile removed. EGD showed medium size hiatal hernia. Overall seeing the colonoscopy report it seems patient might have bled from an oral tumor or diverticulosis. 3. Recent non-STEMI with 2 stents with history of coronary artery disease and CABG: Patient had cardiac cath on 10/10/2021 after EGD and colonoscopy by GI. At that time patient had 2 stents placed 1 in proximal RCA and another in left circumflex. Currently patient not complaining of chest pain or shortness of breath. Troponin is normal. Twelve-lead EKG did not show acute change. Discussed with the managing partner digital content [employer] [place] Dr. Wilcox and decided to start on Plavix and discontinue aspirin and Brilinta. I further discussed with Dr. Bartlett and he agrees with the plan. Hold antihypertensive and beta-estefania as patient recovering from hypotension. 4. History of TIA/CVA-continue statin. 5. Hypertension-hold antihypertensive medication. 6. Hypothyroidism-continue Synthroid. 7. Hyperlipidemia-continue statin. 8. COPD-no exacerbation.? As needed albuterol aerosol. 9. Depression/anxiety-on citalopram, bupropion, lorazepam, trazodone.? 11.? Tobacco dependence-declines nicotine replacement patch.? Encouraged cessation. 12.? Recent left shoulder fracture-following with orthopedic medicine.? Nonoperative management. GERD: Patient already on PPI DVT prophylaxis-SCDs Living will/advanced directive/end of life care: Patient does have living will or advanced directive. Her daughter is power of immigration attorney for health who is present near the bedside in ED. After discussion of benefits/risks procedures involved with full code, DNR CC arrest and DNR CC, the patient and her daughter opted for DNRCC arrest with no intubation. I gave the option that she can change her mind if she decides other way. Patient does want artificial life support including intubation, tube feed, ventilator and/chest compression, central venous catheter, vasopressor and DC shock if needed Total time spent in [id number] encounter in discussion of advanced directive 16 minutes. Charges/Coding Visit Charges Inpatient E&M: 29145 Init Hosp L3 Procedures Hospitalists Procedures: 34224 Advncd Care Plan 30 Min
[2021-10-20 12:46] LABS: Phosphorus 3.4 mg/dL (2.5-4.9)
[2021-10-20] MEDS: Lactated Ringers 1,000 ML 150 ML IV (14:11)
[2021-10-20] MEDS: LORazepam 0.5 MG Tablet PO (15:28)
[2021-10-20] MEDS: Gabapentin 100 MG Capsule 200 MG PO ×3 (15:29→21:44)
[2021-10-20] MEDS: Ensure Clear 120 ML Liquid PO (18:52)
--- NOTE | 2021-10-20 19:12 | NURSING ---
Charting reviewed with Do Baldwin RN
[2021-10-20] MEDS: LORazepam 1 MG Tablet PO (21:44)
[2021-10-20] MEDS: Atorvastatin Calcium 40 MG Tablet PO (22:03)
--- NOTE | 2021-10-20 23:30 | CON.PCM_ITS ---
Assessment & Plan Assessment/Plan (1) Acute lower GI bleeding: PLAN: She is likely having recurrent lower GI bleeding secondary to rectal mass which was previously seen on colonoscopy approximately 2 weeks ago. Recommend to transfuse 2 units of packed red blood cells and she already has appointments with colorectal surgery, radiation oncology, oncology. She remained stable and hemoglobin 's she should be able to be sent to [place] for further work-up. HPI Consult Data Date of Consult: 10/20/21 HPI Narrative Reason for Consultation: GI bleed HPI Narrative: MAURICE WALLACE, is a 76 F who presents From home with her lower GI bleed. She was recently discharged from the hospital after undergoing an EGD and colonoscopy. She was discovered to have only a hiatal hernia on upper endoscopy without etiology of bleeding. On colonoscopy she was discovered to have severe diverticular disease along with a anal rectal mass. Anal rectal mass with villous in nature. 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 She was supposed to undergo staging with a PET scan in the near future and she was given a referral to a colorectal surgeon. As per her daughter she has been having lower GI bleeding for the last 2 years. She always thought it was hemorrhoidal disease because she does have a history of hemorrhoids. She is followed by cardiology Dr. Pedroza however states has not seen him in a while.? Reports left shoulder pain due to fall 8 weeks ago with a fracture she followed by orthopedics Dr. Agrawal, nonoperative management.? Sling as needed.? Currently symptom-free.? Three-vessel bypass 40 years ago at [facility].? She has not seen cardiology for a while.? Tobacco history.? Hypertension, hyperlipidemia.? No history of diabetes. She has a past medical history of TIA/CVA, hypertension, hyperlipidemia, hypothyroidism, CAD with history of CABG/stents, COPD, depression/anxiety, GERD, tobacco dependence. All other 16 review of systems are negative except those pertinent positive mentioned HPI. [facility] Medical History Anxiety and depression Atherosclerosis of coronary artery of [place] heart with angina pectoris Back pain Benzodiazepine dependence COPD (chronic obstructive pulmonary disease) Essential (primary) hypertension Guaiac positive stools H/O: pneumonia Hemorrhoids, external Hyperlipidemia Hypothyroidism Nicotine dependence Non-rheumatic tricuspid valve insufficiency Non-ST elevation (NSTEMI) myocardial infarction Obstructive sleep apnea Secondary pulmonary arterial hypertension TIA (transient ischemic attack) Home Medications aspirin 81 mg tablet,delayed release 81 mg PO DAILY@0800 heart health 09/06/17 [History Last Taken 10/08/21] levothyroxine 75 mcg tablet 75 mcg PO QODAY thyroid 09/06/17 [History Last Taken 10/07/21] citalopram 40 mg tablet 40 mg PO DAILY depression 12/18/17 [History Last Taken 10/08/21] lisinopril 40 mg tablet 40 mg PO DAILY blood pressure 12/18/17 [History Last Taken 10/08/21] atenolol 50 mg tablet 50 mg PO DAILY heart rate 01/05/18 [History Last Taken 10/08/21] atorvastatin 40 mg tablet 40 mg PO DAILY cholesterol 01/05/18 [History Last Taken 10/07/21] lorazepam 1 mg tablet 1 mg PO 4X/DAY anxiety 06/28/18 [History Last Taken 10/08/21] albuterol sulfate 0.63 mg/3 mL solution for nebulization 0.63 mg inhalation Q4H PRN Congestion 07/14/18 [History Last Taken 1 Week Ago ~10/01/21] bupropion HCl 100 mg tablet 100 mg PO DAILY mood 01/16/19 [History Last Taken 10/08/21] pantoprazole 40 mg tablet,delayed release 40 mg PO BID gerd 01/16/19 [History Last Taken 10/08/21] metoclopramide HCl 5 mg tablet (Reglan) 5 mg PO DAILY PRN nausea and vomiting #10 tabs 06/04/21 [Rx Last Taken Unknown] gabapentin 100 mg capsule 200 mg PO 4X/DAY pain 10/08/21 [History Last Taken 10/07/21] hydrocodone-acetaminophen 5-325mg 5mg-325mg 1 tab PO Q4H PRN PRN arm pain 10/08/21 [History Last Taken 10/07/21] oxybutynin chloride 5 mg tablet,extended release 24 hr 5 mg PO DAILY bladder 10/08/21 [History Last Taken 10/08/21] trazodone 100 mg tablet 100 mg PO QHS sleep 10/08/21 [History Last Taken 10/07/21] ticagrelor 90 mg tablet (Brilinta) 90 mg PO BID #60 tabs 10/12/21 [Rx Last Taken Unknown] Allergy/AdvReac Type Severity Reaction Status Date / Time morphine Allergy PT UNSURE Verified 10/08/21 13:33 Penicillins Allergy Hives Verified 10/08/21 13:33 tramadol HCl [From Ultram] Allergy PT UNSURE Verified 10/08/21 13:33 bupropion [From Wellbutrin] AdvReac hallucinati Verified 10/08/21 13:33 ons Family History Father Heart disease of heart attack at age 64 Mother Cancer of cancer at age 72 CVA (cerebral vascular accident) Surgical History History of appendectomy History of coronary artery bypass graft x 3 History of coronary artery stent placement (10/10/21) History of left heart catheterization (12/28/17) Hx of cholecystectomy Social History household members: significant other Smoking Status: Current every day smoker tobacco type: cigarettes details: Patient denies alcohol use substance use type: does not use ROS ROS Narrative Constitutional: Reports fatigue and severe weakness. No fever. HEENT: Reports systems reviewed and no addt'l complaints, except as documented Respiratory/Chest: Denies chest pain, shortness of breath at rest. Mild shortness of breath on exertion. Gastrointestinal: No vomiting hematemesis but rectal bleed admission HPI Genitourinary: Denies burning urination or new urinary tract symptoms Musculoskeletal: Reports joint pain and limited range of motion Neurologic: Denies seizure-like activity skin: No ulcer. No rash Endocrinology: Reports systems reviewed and no addt'l complaints, except as documented Hematologic/Lymphatic: Reports systems reviewed and no addt'l complaints, except as documented Rest 14 ROS are negative except as mentioned in HPI Physical Exam Const alert and no apparent distress Resp normal respiratory effort and no retractions Cardio regular rate, regular rhythm, S1 normal heart sound and S2 normal heart sound GI normal to inspection, nondistended, normoactive bowel sounds and soft to palpation Psych Mood & Affect: anxious Lab / Micro Data Result Diagrams: 10/21/21 05:50 10/21/21 05:50 Labs: Laboratory Results - last 24 hr 10/20/21 09:54: Crossmatch See Detail 10/20/21 09:54: Crossmatch See Detail 10/20/21 23:01: Hgb 7.3 L, Hct 24.2 L 10/21/21 05:50: WBC 7.9, RBC 2.94 L, Hgb 7.4 L, Hct 24.9 L, MCV 84.7, MCH 25.2 L , MCHC 29.7 L D, RDW Std Deviation 45.8 H, RDW Coeff of John 14.9 H, Plt Count 349, MPV 10.3, Immature Gran % (Auto) 0.400, Neut % (Auto) 56.8, Lymph % (Auto) 31.7, [place] % (Auto) 7.7, Eos % (Auto) 2.9, Baso % (Auto) 0.5, Absolute Neuts (auto) 4.5, Absolute Lymphs (auto) 2.52, Nucleated RBC % 0 10/21/21 05:50: Sodium 144, Potassium 3.7, Chloride 114 H, Carbon Dioxide 26.0, Anion Gap 4 L, BUN 9, Creatinine 0.59, Estim Creat Clear Calc 37.24, Est GFR (MDRD) Af Amer 128, Est GFR (MDRD) Non-Af 106, BUN/Creatinine Ratio 15.3, Glucose 93, Calcium 7.9 L, TSH 0.43 Charges/Coding Visit Charges Inpatient E&M: 84587 Init Hosp L2
[2021-10-20 23:36] LABS: Hematocrit 24.2 % (37-47); Hemoglobin 7.3 g/dL (12.0-15.0)
[2021-10-21] VITALS (9 sets, daily range): BP systolic 131–157; BP diastolic 56–73; PULSE 68–77; RESP 16–18; TEMP 36.6–37.3; O2SAT 94–96
[2021-10-21] MEDS: Lactated Ringers 1,000 ML 150 ML IV (00:33)
[2021-10-21 06:42] LABS: Absolute Lymphocyte Count 2.52 X10^3/uL (0.83-4.51); Absolute Neutrophil Count 4.5 X10^3/uL (2.0-7.7); Basophil# 0.04 X10^3/uL; Basophil% 0.5 % (0-1); Eosinophil# 0.23 X10^3/uL; Eosinophils% 2.9 % (0-5); Hematocrit 24.9 % (37-47); Hemoglobin 7.4 g/dL (12.0-15.0); Lymphocyte # 2.52 X10^3/ul (0.83-4.51); Lymphocyte % 31.7 % (19-41); Mean Corp Hgb Conc 29.7 g/dL (32-36); Mean Corpuscular Hgb 25.2 pg (27.0-32.0); Mean Corpuscular Volume 84.7 fL (81-99); Mean Platelet Vol. 10.3 fl (6.2-12.0); Monocyte# 0.61 X10^3/uL; Monocyte% 7.7 % (0-10); NRBC Flagged by Analyzer 0 % (0-5); Neutrophil # 4.51 X10^3/uL (2.7-7.7); Neutrophil % 56.8 % (47-70); Platelet Count 349 K/mm3 (150-450); RBC Distribution Width CV 14.9 % (11.6-14.6); RBC Distribution Width SD 45.8 fl (35.1-43.9); Red Blood Count 2.94 M/mm3 (4.2-5.4); White Blood Count 7.9 K/mm3 (4.4-11.0)
[2021-10-21 07:12] LABS: Anion Gap 4 (5-15); BUN 9 mg/dL (7-18); BUN/Creat Ratio 15.3 RATIO (10-20); Calcium,Total 7.9 mg/dL (8.5-10.1); Chloride 114 mmol/L (98-107); Creatinine, Serum 0.59 mg/dL (0.55-1.02); EST Glomerular Filtration Rate 106 mL/min (>60); Est Glom Filt Rate - Afr Amer 128 mL/min (>60); Estimated Creatinine Clearance 37.24 ml/min; Glucose 93 mg/dL (74-106); Potassium 3.7 mmol/L (3.5-5.1); Sodium Level 144 mmol/L (136-145); Thyroid Stim Hormone (TSH) 0.43 uIU/mL (0.358-3.74)
[2021-10-21] MEDS: LORazepam 1 MG Tablet PO ×3 (08:28→16:26)
--- NOTE | 2021-10-21 09:30 | PCM.PN.HOSP ---
Subjective Subjective No further bleeding. Pt and dtr upset that she is admitted, was not seen by GI yesterday. Objective Data Objective Data Vital Signs: Vital Signs Temp Pulse Resp BP Pulse Ox O2 Del Method 37.3 C H 73 18 146/56 H 94 Room Air 10/21/21 03:28 10/21/21 07:00 10/21/21 03:28 10/21/21 03:28 10/21/21 08:05 10/21/21 08:05 Oxygen Delivery Method Room Air Weight: 70 kg Body Mass Index (BMI) 29.1 Intake & Output: Intake and Output for Last 24 Hours 10/19/21 10/20/21 10/21/21 23:59 23:59 23:59 Intake Total 2432.5 / 2432.5 1490 / 1490 Output Total 900 / 900 Balance 2432.5 / 2132.5 590 / 590 Lab / Micro Data Result Diagrams: 10/21/21 05:50 10/21/21 05:50 Labs: Laboratory Results - last 24 hr 10/20/21 09:43: WBC 15.7 H, RBC 3.36 L, Hgb 7.9 L, Hct 28.2 L, MCV 83.9, MCH 23.5 L, MCHC 28.0 L, RDW Std Deviation 45.4 H, RDW Coeff of John 15.0 H, Plt Count 517 H, MPV 10.6, Immature Gran % (Auto) 0.800, Neut % (Auto) 56.8, Lymph % (Auto) 34.8, [place] % (Auto) 5.5, Eos % (Auto) 1.7, Baso % (Auto) 0.4, Absolute Neuts (auto) 8.9 H, Absolute Lymphs (auto) 5.46 H, Nucleated RBC % 0, Differential Comment SCANNED 10/20/21 09:43: Sodium 141, Potassium 3.9, Chloride 108 H, Carbon Dioxide 27.0, Anion Gap 6, BUN 20 H, Creatinine 0.96, Estim Creat Clear Calc 38.80, Est GFR (MDRD) Af Amer 73, Est GFR (MDRD) Non-Af 61, BUN/Creatinine Ratio 20.9 H, Glucose 156 H, Calcium 8.2 L, Troponin I High Sens 23 10/20/21 09:54: Blood Type O POSITIVE, Antibody Screen NEGATIVE 10/20/21 09:54: Phosphorus 3.4, Magnesium 2.0 10/20/21 09:54: Crossmatch See Detail 10/20/21 11:20: Urine Color Yellow, Urine Clarity Clear, Urine pH 5.0, Ur Specific [place] 1.015, Urine Protein Negative, Urine Glucose (UA) Normal, Urine Ketones Negative, Urine Occult Blood Negative, Urine Nitrite Negative, Urine Bilirubin Negative, Urine Urobilinogen Normal, Ur Leukocyte Esterase Negative, Urine RBC 0 SEEN, Urine WBC 0 SEEN, Ur Squamous Epith Cells 0 SEEN, Urine Bacteria 0 SEEN, Urine Mucus 0 SEEN 10/20/21 23:01: Hgb 7.3 L, Hct 24.2 L 10/21/21 05:50: WBC 7.9, RBC 2.94 L, Hgb 7.4 L, Hct 24.9 L, MCV 84.7, MCH 25.2 L, MCHC 29.7 L D, RDW Std Deviation 45.8 H, RDW Coeff of John 14.9 H, Plt Count 349, MPV 10.3, Immature Gran % (Auto) 0.400, Neut % (Auto) 56.8, Lymph % (Auto) 31.7, [place] % (Auto) 7.7, Eos % (Auto) 2.9, Baso % (Auto) 0.5, Absolute Neuts (auto) 4.5, Absolute Lymphs (auto) 2.52, Nucleated RBC % 0 10/21/21 05:50: Sodium 144, Potassium 3.7, Chloride 114 H, Carbon Dioxide 26.0, Anion Gap 4 L, BUN 9, Creatinine 0.59, Estim Creat Clear Calc 37.24, Est GFR (MDRD) Af Amer 128, Est GFR (MDRD) Non-Af 106, BUN/Creatinine Ratio 15.3, Glucose 93, Calcium 7.9 L, TSH 0.43 Physical Exam Const alert and no apparent distress Resp normal respiratory effort and no retractions Cardio regular rate, regular rhythm, S1 normal heart sound and S2 normal heart sound GI normal to inspection, nondistended, normoactive bowel sounds and soft to palpation Psych Mood & Affect: anxious Assessment & Plan Assessment/Plan (1) Acute lower GI bleeding: PLAN: IV Protonix 80 mg bolus and then continuous drip. Discussed with Dr. Bartlett, he recommends the patient follow-up with the surgeon at [facility], Dr. Fonseca, but noted that this was not emergent and can still be performed as outpatient. If patient's bleeding is stopped and she could follow-up as outpatient. He did not feel that an inpatient transfer is warranted at this time. (2) Anemia: QUALIFIERS: Anemia type: other cause PLAN: Acute blood loss anemia due to sudden onset of GI bleed most likely lower GI site: Patient had hypotension, BP 70/40, bradycardia 48/min, and possible syncope as documented by EMS. IV fluid resuscitation Ringer lactate. Monitor intake and output and keep urine 1 mL/kg/h. Hemoglobin dropped from 9.1 g on 10/17-7.9 today. 1 unit PRBC ordered. 10/21: Given recent non-STEMI, goal is to keep hemoglobin 8 or more. Will transfuse 1 more unit packed red blood cells. Follow-up hemoglobin on the . (3) History of rectal cancer: PLAN: Recent diagnosis of anal mass: On colonoscopy on 10/09/2021, a frond-like villous nonobstructing medium-sized mass, none circumferential 3 cm length by 4 mm wide oozing was found for which cold biopsy was taken. Moderate inflammation and erosion, erythema and facility over rectosigmoid colon suspicion of ischemic colitis. Patient also had [place] diverticulosis in the rectosigmoid and sigmoid colon. 2 small angiodysplastic lesion with bleeding found in the splenic flexure which was coagulated. Monitor polyp found in the rectum, sessile removed. EGD showed medium size hiatal hernia. Overall seeing the colonoscopy report it seems patient might have bled from an oral tumor or diverticulosis. Pathology showed squamous cell carcinoma Patient was to have staging tests done this week which are currently on hold given the current events with her bleeding. (4) Subsequent non-ST elevation (NSTEMI) myocardial infarction: PLAN: Recent non-STEMI with 2 stents with history of coronary artery disease and CABG: Patient had cardiac cath on 10/10/2021 after EGD and colonoscopy by GI. At that time patient had 2 stents placed 1 in proximal RCA and another in left circumflex. Currently patient not complaining of chest pain or shortness of breath. Troponin is normal. Twelve-lead EKG did not show acute change. Discussed with the cylinder machine operator pulp drier Dr. Wilcox and decided to start on Plavix and discontinue aspirin and Brilinta. I further discussed with Dr. Bartlett and he agrees with the plan. Hold antihypertensive and beta-estefania as patient recovering from hypotension. 10/21:Clopidogrel has been ordered but not administered. Advised nursing today to administer. PLAN: Plan Chronic conditions: History of TIA/CVA-continue statin. Hypertension-hold antihypertensive medication. Hypothyroidism-continue Synthroid. Hyperlipidemia-continue statin. COPD-no exacerbation.? As needed albuterol aerosol. Depression/anxiety-on citalopram, bupropion, lorazepam, trazodone.? Tobacco dependence-declines nicotine replacement patch.? Encouraged cessation. Recent left shoulder fracture-following with orthopedic medicine.? Nonoperative management. GERD: Patient already on PPI DVT prophylaxis-SCDs Living will/advanced directive/end of life care: Patient does have living will or advanced directive. Her daughter is power of staff attorney for health who is present near the bedside in ED. After discussion of benefits/risks procedures involved with full code, DNR CC arrest and DNR CC, the patient and her daughter opted for DNRCC arrest with no intubation. I gave the option that she can change her mind if she decides other way. Patient does want artificial life support including intubation, tube feed, ventilator and/chest compression, central venous catheter, vasopressor and DC shock if needed
--- NOTE | 2021-10-21 10:29 | NURSING ---
daughter becoming more and more upset over noone coming to see her and weve had her here since thursday! and im going to make some calls because im starting to not be comfortable with here being here! im starting to have anxiety! reassured with daughter that pt is stable and that hospitalist on floor and that will see when rounds. weigh and charge worker aware of complaints. will let dr. cruz know as well. ok per friend to give meds. with water
[2021-10-21] MEDS: 0.9% Saline Lock 10 ML Syringe IV (10:38)
[2021-10-21] MEDS: Tolterodine Tartrate 2 MG CAP.SA PO (10:39)
[2021-10-21] MEDS: Gabapentin 100 MG Capsule 200 MG PO ×3 (10:39→18:04)
[2021-10-21] MEDS: Citalopram 40 MG TABLET PO (10:39)
[2021-10-21] MEDS: buPROPion (SR) 100 MG TABLET.SA PO (10:39)
--- NOTE | 2021-10-21 11:28 | CASEMGMT ---
Per Dr. Malone, pt/tony are requesting transfer. [facility], the following are in-network tertiary facilities: [facility], [place], [facility], [place], [facility], [facility], [place], [facility], [place], and . Orin LOPEZ CM
--- NOTE | 2021-10-21 11:36 | CASEMGMT ---
Readmission chart review: 10/08-10/12/21 Acute anemia, elev trop, CP 10/20/21-current Rectal bleed Pt was initially presented for left breast pain for 40 minutes and pt with elev troponin. Pt admitted for Acute anemia, elev troponin, CP. Pt with consults to GI and cardiology. Pt had scopes with biopsies and heart cath w/ intervention. Pt was placed on Brilinta at discharge. Pt was already active with [facility] for SN, OT and SEN order was placed. Pt stated no concerns with going home at time of discharge. Pt returned to [facility] on 10/20/21 for rectal bleeding for 4 days and weakness. Pt admitted for rectal bleed, brilinta stopped and placed on plavix per cardiology recommendation. GI consulted again. Per pt/family, new rectal cancer dx from biopsies. CM to follow. Orin LOPEZ CM
[2021-10-21] MEDS: Ensure Clear 120 ML Liquid PO (11:50)
[2021-10-21] MEDS: Clopidogrel Bisulfate 75 MG Tablet PO (11:50)
[2021-10-21 17:57] LABS: Absolute Lymphocyte Count 2.61 X10^3/uL (0.83-4.51); Absolute Neutrophil Count 5.6 X10^3/uL (2.0-7.7); Basophil# 0.04 X10^3/uL; Basophil% 0.4 % (0-1); Eosinophil# 0.24 X10^3/uL; Eosinophils% 2.7 % (0-5); Hemoglobin 9.2 g/dL (12.0-15.0); Lymphocyte # 2.61 X10^3/ul (0.83-4.51); Lymphocyte % 28.9 % (19-41); Mean Corp Hgb Conc 30.7 g/dL (32-36); Mean Corpuscular Hgb 25.9 pg (27.0-32.0); Mean Corpuscular Volume 84.5 fL (81-99); Mean Platelet Vol. 9.7 fl (6.2-12.0); Monocyte# 0.44 X10^3/uL; Monocyte% 4.9 % (0-10); NRBC Flagged by Analyzer 0 % (0-5); Neutrophil # 5.64 X10^3/uL (2.7-7.7); Neutrophil % 62.5 % (47-70); Platelet Count 336 K/mm3 (150-450); RBC Distribution Width CV 15.5 % (11.6-14.6); RBC Distribution Width SD 47.2 fl (35.1-43.9); Red Blood Count 3.55 M/mm3 (4.2-5.4)
--- NOTE | 2021-10-21 18:20 | DCINST_ITS ---
Discharge Instructions Diet Discharge Diet: Low fat / Low cholesterol Dressing / Incision Call your doctor if you observe: - (increased blood in stool) Follow Up Care Test Results: Test results from this visit will be discussed in further detail at your follow- up appointment, if applicable. Discharge Plan Admission Admit Date/Time: 10/20/21 12:04 Primary Reason for Your Visit: GI bleed. Anemia Attending Provider: Fernando Malone Primary Care Provider: Zully Rojas Consulting Providers: Juanito Marlow Instructions Additional Instructions / Restrictions: Follow-up with your [facility] surgeon as previously scheduled. Follow-up with oncology and additional testing has been previously arranged. Discharge Orders/Prescriptions Prescriptions: New clopidogrel 75 mg Tablet 75 mg PO DAILY Qty: 30 0RF Continued albuterol sulfate 0.63 mg/3 mL solution for nebulization 0.63 mg INHALATION Q4H PRN (Reason: Congestion) levothyroxine 75 MCG tablet 75 mcg PO QODAY citalopram 40 mg tablet 40 mg PO DAILY Rx Instructions: 40 mg PO 1 in am lisinopril 40 mg tablet 40 mg PO DAILY atenolol 50 MG tablet 50 mg PO DAILY atorvastatin 40 MG tablet 40 mg PO DAILY lorazepam 1 MG tablet 1 mg PO 4X/DAY Rx Instructions: takes at 0800, 1200, 1600, 2000 bupropion HCl 100 MG tablet 100 mg PO DAILY pantoprazole 40 MG tablet 40 mg PO BID metoclopramide HCl [Reglan] 5 mg tablet 5 mg PO DAILY PRN (Reason: nausea and vomiting) Qty: 10 0RF hydrocodone-acetaminophen 5-325 mg tablet 1 tab PO Q4H PRN PRN (Reason: arm pain) gabapentin 100 mg capsule 200 mg PO 4X/DAY Label Comments: Take 2 capsules by mouth three times daily for 180 days. trazodone 100 mg tablet 100 mg PO QHS Label Comments: TAKE 1 TABLET BY MOUTH EVERY DAY AT BEDTIME oxybutynin chloride 5 mg tablet extended release 24hr 5 mg PO DAILY Label Comments: Take 1 tablet by mouth once daily. Discontinued aspirin 81 MG tablet 81 mg PO DAILY@0800 Brilinta 90 mg Tablet 90 mg PO BID Qty: 60 0RF Referrals / Follow Up: Zully Rojas MD [Primary Care Provider] - Within 2 Weeks Kingsley Washburn DO [Med Staff - Active Staff] - Within 2 Weeks Disposition Disposition (needs filled in before D/C Order can be placed): Home, Self Care
--- NOTE | 2021-10-21 18:24 | DS.PCM_ITS ---
Providers Date of Admission: 10/20/21 Primary Care Physician: Dr. Zully Rojas MD Consultations 10/20/21 13:34 Consult: Gastroenterology Routine Consulting Provider: [facility] Reason for Consult: acute GI Bleed EMERGENT Consult: No MD Notified: Yes Date Notified: 10/20/21 Time Notified: 13:34 Method of Notification: Verbal Reason For Visit: RECTAL BLEED. Diagnosis Discharge Diagnosis (1) Acute lower GI bleeding: Status: Acute Code(s): K92.2 - Gastrointestinal hemorrhage, unspecified Plan: Secondary to rectal mass but also being on aspirin and ticagrelor. Discussed with Dr. Bartlett, he recommends the patient follow-up with the surgeon at [facility], Dr. Lam, but noted that this was not emergent and can still be performed as outpatient. If patient's bleeding is stopped and she could follow-up as outpatient. He did not feel that an inpatient transfer is warranted at this time. Discussed with nursing, no additional bleeding at this time. (2) Anemia: Status: Acute Code(s): D64.9 - Anemia, unspecified Qualifiers: Anemia type: other cause Plan: Acute blood loss anemia due to sudden onset of GI bleed most likely lower GI site: Patient had hypotension, BP 70/40, bradycardia 48/min, and possible syncope as documented by EMS. IV fluid resuscitation Ringer lactate. Monitor intake and output and keep urine 1 mL/kg/h. Hemoglobin dropped from 9.1 g on 10/17-7.9 today. 1 unit PRBC ordered. 10/21: Given recent non-STEMI, goal is to keep hemoglobin 8 or more. Will transfuse 1 more unit packed red blood cells. Follow-up hemoglobin on the . Repeat hemoglobin after second unit of packed red blood cells is 9.2 (3) History of rectal cancer: Status: Acute Code(s): Z85.048 - Personal history of other malignant neoplasm of rectum, rectosigmoid junction, and anus Plan: Recent diagnosis of anal mass: On colonoscopy on 10/09/2021, a frond-like villous nonobstructing medium-sized mass, none circumferential 3 cm length by 4 mm wide oozing was found for which cold biopsy was taken. Moderate inflammation and erosion, erythema and facility over rectosigmoid colon suspicion of ischemic colitis. Patient also had [place] diverticulosis in the rectosigmoid and sigmoid colon. 2 small angiodysplastic lesion with bleeding found in the splenic flexure which was coagulated. Monitor polyp found in the rectum, sessile removed. EGD showed medium size hiatal hernia. Overall seeing the colonoscopy report it seems patient might have bled from an oral tumor or diverticulosis. Pathology showed squamous cell carcinoma Patient was to have staging tests done this week which are currently on hold given the current events with her bleeding. Patient to follow-up with rectal surgeon and to follow-up with additional testing, including a PET scan. Follow-up with oncology. (4) Subsequent non-ST elevation (NSTEMI) myocardial infarction: Status: Acute Code(s): I22.2 - Subsequent non-ST elevation (NSTEMI) myocardial infarction Plan: Recent non-STEMI with 2 stents with history of coronary artery disease and CABG: Patient had cardiac cath on 10/10/2021 after EGD and colonoscopy by GI. At that time patient had 2 stents placed 1 in proximal RCA and another in left circum flex. Currently patient not complaining of chest pain or shortness of breath. Troponin is normal. Twelve-lead EKG did not show acute change. Discussed with the senior business development analyst Dr. Wilcox and decided to start on Plavix and discontinue aspirin and Brilinta. I further discussed with Dr. Bartlett and he agrees with the plan. Hold antihypertensive and beta-estefania as patient recovering from hypotension. 10/21: Patient to continue with clopidogrel and hold off on her aspirin and ticagrelor. Plan Chronic conditions: * History of TIA/CVA-continue statin. * Hypertension-hold antihypertensive medication. * Hypothyroidism-continue Synthroid. * Hyperlipidemia-continue statin. * COPD-no exacerbation.? As needed albuterol aerosol. * Depression/anxiety-on citalopram, bupropion, lorazepam, trazodone.? * Tobacco dependence-declines nicotine replacement patch.? Encouraged cessation. * Recent left shoulder fracture-following with orthopedic medicine.? Nonop erative management. GERD: Patient already on PPI DVT prophylaxis-SCDs Living will/advanced directive/end of life care: Patient does have living will or advanced directive. Her daughter is power of privacy attorney for health who is present near the bedside in ED. After discussion of benefits/risks procedures involved with full code, DNR CC arrest and DNR CC, the patient and her daughter opted for DNRCC arrest with no intubation. I gave the option that she can change her mind if she decides other way. Patient does want artificial life support including intubation, tube feed, ventilator and/chest compression, central venous catheter, vasopressor and DC shock if needed Medications at Discharge Home Medications levothyroxine 75 mcg tablet 75 mcg PO QODAY thyroid 09/06/17 citalopram 40 mg tablet 40 mg PO DAILY depression 12/18/17 lisinopril 40 mg tablet 40 mg PO DAILY blood pressure 12/18/17 atenolol 50 mg tablet 50 mg PO DAILY heart rate 01/05/18 atorvastatin 40 mg tablet 40 mg PO DAILY cholesterol 01/05/18 lorazepam 1 mg tablet 1 mg PO 4X/DAY anxiety 06/28/18 albuterol sulfate 0.63 mg/3 mL solution for nebulization 0.63 mg inhalation Q4H PRN Congestion 07/14/18 bupropion HCl 100 mg tablet 100 mg PO DAILY mood 01/16/19 pantoprazole 40 mg tablet,delayed release 40 mg PO BID gerd 01/16/19 metoclopramide HCl 5 mg tablet (Reglan) 5 mg PO DAILY PRN nausea and vomiting #10 tabs 06/04/21 gabapentin 100 mg capsule 200 mg PO 4X/DAY pain 10/08/21 hydrocodone-acetaminophen 5-325mg 5mg-325mg 1 tab PO Q4H PRN PRN arm pain 10/08/21 oxybutynin chloride 5 mg tablet,extended release 24 hr 5 mg PO DAILY bladder 0 10/08/21 trazodone 100 mg tablet 100 mg PO QHS sleep 10/08/21 clopidogrel 75 mg tablet 75 mg PO DAILY #30 tabs 10/21/21 Hospital Course Operations None Summary of Care Provided Minutes Spent on Discharge: 60 Hospital Course: This is a 76-year-old female presents with GI bleed. Patient was having rectal bleeding and had 4 episodes. Patient had previously been diagnosed with a rectal cancer that was squamous cell. Patient was brought in on the And did require unit of packed blood cells. Given her coronary artery disease, patient was ordered another unit of packed red blood cells today to keep her hemoglobin greater than or equal to [address]. [address] Bartlett if patient not having further bleeding is otherwise stable and that she could be discharged and follow-up with the general surgeon that she was was to see and to complete rest of her staging for her rectal cancer Had very long conversation with the patient and her daughter today. Saw her earlier in the morning and the daughter was upset that they did not see Dr. Bartlett yesterday. They have been told that Dr. Bartlett was going to be seeing them sometime around 6 PM but he did not show up. And he was going to see them today. The daughter expressed that she herself was very anxious and overwhelmed with the patient's recent diagnosis of cancer and also the recent myocardial infarction compounded by the bleeding that she just experienced and that they are missing testing for staging purposes for cancer because she is currently in the hospital. I listened to her complaints, the daughter, and expressed sympathy and apologized for their situation and acknowledged her anxiety and being overwhelmed. The daughter did walk out in the midst of the conversation of the room at that time. I talked with the patient and the patient want to be transferred. I told her that did not feel that there is any indication to transfer at that time unless indicated by gastroenterology she is currently stable. Later, Dr. Bartlett did see the patient and her daughter and recommended transfer to be seen by the surgeon to them. This is validated by the nurse who is present in the room. I did speak with Dr. Bartlett on the phone and he stated that if she is stable that she can do this as outpatient as she already has an appointment set up apparently for the . I went back and talk to the patient and her daughter about the conversation I had had with Dr. Bartlett and the dafanny whitney immediately jumped to conclusion that I was kicking the patient out who was very unstable. She again walked out of the room in the middle of the conversation and I did speak with her on the hallway. Informed her that was trying to have a conversation with her and if she has concerns about the patient going home then I would be happy to keep the patient in the hospital to observe her and even offered the option to reach out to [facility] to see if she could be accepted as transfer but did stipulate that this is not emergent. The daughter states that this is emergent because it is her mother who was involved. She stated that we have to do to discharge the patient and that if something goes awry that she will be looking for my name. That appear to be a thinly veiled legal for alexander came towards me if something were to go awry. But once again I did offer her the opportunity and repeated the offer that if she had issues that we could watch her in the hospital or try to transfer to [facility]. She was not interested in that. The patient was transfused her second unit and her follow-up hemoglobin came back at 9.2. Verified with the nursing that the patient does not have any further bleeding that she is aware of. Patient will be discharged. The daughter stated that she is can be taken the patient to another hospital. I am not sure if that is going to be occurring but patient is otherwise stable and hopefully she can follow-up and make her appointments to complete her staging for her cancer and receive the appropriate treatment. Weight / BMI Weight Weight: 70 kg Body Mass Index (BMI) 29.1 ABG / Lab / Microbiology Data Result Diagrams: 10/21/21 17:45 10/21/21 05:50 Laboratory: Laboratory Results - last 24 hr 10/20/21 09:54: Crossmatch See Detail 10/20/21 09:54: Crossmatch See Detail 10/20/21 23:01: Hgb 7.3 L, Hct 24.2 L 10/21/21 05:50: WBC 7.9, RBC 2.94 L, Hgb 7.4 L, Hct 24.9 L, MCV 84.7, MCH 25.2 L , MCHC 29.7 L D, RDW Std Deviation 45.8 H, RDW Coeff of John 14.9 H, Plt Count 349, MPV 10.3, Immature Gran % (Auto) 0.400, Neut % (Auto) 56.8, Lymph % (Auto) 31.7, Sharkey % (Auto) 7.7, Eos % (Auto) 2.9, Baso % (Auto) 0.5, Absolute Neuts (auto) 4.5, Absolute Lymphs (auto) 2.52, Nucleated RBC % 0 10/21/21 05:50: Sodium 144, Potassium 3.7, Chloride 114 H, Carbon Dioxide 26.0, Anion Gap 4 L, BUN 9, Creatinine 0.59, Estim Creat Clear Calc 37.24, Est GFR (MDRD) Af Amer 128, Est GFR (MDRD) Non-Af 106, BUN/Creatinine Ratio 15.3, Glucose 93, Calcium 7.9 L, TSH 0.43 10/21/21 17:45: WBC 9.0, RBC 3.55 L, Hgb 9.2 L, Hct 30.0 L, MCV 84.5, MCH 25.9 L , MCHC 30.7 L, RDW Std Deviation 47.2 H, RDW Coeff of John 15.5 H, Plt Count 336, MPV 9.7, Immature Gran % (Auto) 0.600, Neut % (Auto) 62.5, Lymph % (Auto) 28.9, Sharkey % (Auto) 4.9, Eos % (Auto) 2.7, Baso % (Auto) 0.4, Absolute Neuts (auto) 5.6, Absolute Lymphs (auto) 2.61, Nucleated RBC % 0 D/C Instructions Discharge Diet: Low fat / Low cholesterol Call your doctor if you observe: - (increased blood in stool) Meaningful Use Info Meaningful Use Diagnoses (Choose all that apply): None applicable Discharge Plan Admission Admit Date/Time: 10/20/21 12:04 Primary Reason for Your Visit: GI bleed. Anemia Attending Provider: Fernando Malone Primary Care Provider: Zully Rojas Consulting Providers: Juanito Marlow Instructions Additional Instructions / Restrictions: Follow-up with your [facility] surgeon as previously scheduled. Follow-up with oncology and additional testing has been previously arranged. Discharge Orders/Prescriptions Prescriptions: New clopidogrel 75 mg Tablet 75 mg PO DAILY Qty: 30 0RF Continued albuterol sulfate 0.63 mg/3 mL solution for nebulization 0.63 mg INHALATION Q4H PRN (Reason: Congestion) levothyroxine 75 MCG tablet 75 mcg PO QODAY citalopram 40 mg tablet 40 mg PO DAILY Rx Instructions: 40 mg PO 1 in am lisinopril 40 mg tablet 40 mg PO DAILY atenolol 50 MG tablet 50 mg PO DAILY atorvastatin 40 MG tablet 40 mg PO DAILY lorazepam 1 MG tablet 1 mg PO 4X/DAY Rx Instructions: takes at 0800, 1200, 1600, 2000 bupropion HCl 100 MG tablet 100 mg PO DAILY pantoprazole 40 MG tablet 40 mg PO BID metoclopramide HCl [Reglan] 5 mg tablet 5 mg PO DAILY PRN (Reason: nausea and vomiting) Qty: 10 0RF hydrocodone-acetaminophen 5-325 mg tablet 1 tab PO Q4H PRN PRN (Reason: arm pain) gabapentin 100 mg capsule 200 mg PO 4X/DAY Label Comments: Take 2 capsules by mouth three times daily for 180 days. trazodone 100 mg tablet 100 mg PO QHS Label Comments: TAKE 1 TABLET BY MOUTH EVERY DAY AT BEDTIME oxybutynin chloride 5 mg tablet extended release 24hr 5 mg PO DAILY Label Comments: Take 1 tablet by mouth once daily. Discontinued aspirin 81 MG tablet 81 mg PO DAILY@0800 Brilinta 90 mg Tablet 90 mg PO BID Qty: 60 0RF Referrals / Follow Up: Zully Rojas MD [Primary Care Provider] - Within 2 Weeks Kingsley Washburn DO [Med Staff - Active Staff] - Within 2 Weeks Disposition Disposition (needs filled in before D/C Order can be placed): Home, Self Care Charges/Coding Visit Charges Inpatient E&M: 57253 Disch Hosp
--- NOTE | 2021-10-22 11:22 | CASEMGMT ---
Plan was to transfer pt yesterday when this RN CM left the floor and pt then ended up being discharged home. SEN for HHC placed and [facility] already aware of pt discharge yesterday. SStaten RN CM
== END 2021-10-21 19:14 | disposition home or self-care (01) | DRG 377 ==
LOC: ED 12:18 → PCU 12:57
PROVIDERS: Admitting Provider Internal Medicine; Emergency Provider Emergency Medicine; PCP Internal Medicine
DX: K92.2 Gastrointestinal hemorrhage, unspecified (principal); I21.4 Non-ST elevation (NSTEMI) myocardial infarction; C21.0 Malignant neoplasm of anus, unspecified; I50.32 Chronic diastolic (congestive) heart failure; D62 Acute posthemorrhagic anemia; I27.20 Pulmonary hypertension, unspecified; I11.0 Hypertensive heart disease with heart failure; K21.9 Gastro-esophageal reflux disease without esophagitis; E03.9 Hypothyroidism, unspecified; I95.9 Hypotension, unspecified; J44.9 Chronic obstructive pulmonary disease, unspecified; E78.5 Hyperlipidemia, unspecified; F41.9 Anxiety disorder, unspecified; I25.10 Atherosclerotic heart disease of native coronary artery without angina pectoris; G47.33 Obstructive sleep apnea (adult) (pediatric); F17.210 Nicotine dependence, cigarettes, uncomplicated; F32.A Depression, unspecified; Z87.01 Personal history of pneumonia (recurrent); Z86.73 Personal history of transient ischemic attack (TIA), and cerebral infarction without residual deficits; Z79.82 Long term (current) use of aspirin; Z79.899 Other long term (current) drug therapy; Z95.1 Presence of aortocoronary bypass graft; S42.92XD Fracture of left shoulder girdle, part unspecified, subsequent encounter for fracture with routine healing; Z85.048 Personal history of other malignant neoplasm of rectum, rectosigmoid junction, and anus; Z66 Do not resuscitate
CPT/HCPCS: 36415; 80048; 81001; 83735; 84100; 84443; 84484; 85014; 85018; 85025; 86850; 86900; 86901; 86920; 93005; 97162; 97165; 99285; J7030; J7120; P9016; A4216; J3490

== ENCOUNTER → 2021-11-08 | Outpatient (CLI) | payer MEDICARE, SELFPAY ==
[2017-12-28 13:50] VITALS: BMI 29.2
[2021-11-08 09:52] VITALS: BP 133/57; PULSE 79; RESP 16; TEMP 36.9; O2SAT 93; BMI 27.9
== END | disposition home or self-care (01) ==
LOC: RAD 09:37
PROVIDERS: PCP Internal Medicine; Referring Provider Internal Medicine Hematology & Oncology; Visit Provider Internal Medicine Hematology & Oncology
DX: C21.0 Malignant neoplasm of anus, unspecified (principal)
CPT/HCPCS: 36569

== ENCOUNTER 2021-11-15 12:45 | Emergency (ER) | payer MEDICARE, SELFPAY ==
[2017-12-28 13:50] VITALS: BMI 29.2
[2021-11-15] VITALS (10 sets, daily range): BP systolic 122–146; BP diastolic 50–78; PULSE 60–71; RESP 16–20; TEMP 36.9; O2SAT 92–98; BMI 28.0
--- NOTE | 2021-11-15 13:45 | RAD_ITS ---
STUDY: X-RAY CHEST REASON FOR EXAM: Female, 76 years old. Chest pain TECHNIQUE: Single AP portable view of the chest. COMPARISON: Comparison is made with prior study 10/08/2021. FINDINGS: EKG electrode are seen. A right-sided PICC line catheter is seen with the tip at the junction of the superior vena cava and right atrium. Stable elevation of the left hemidiaphragm. The lungs are clear. There is no demonstrated pleural abnormality. Sternal cerclage wires and vascular clips are present from a prior sternotomy and coronary artery bypass graft procedure (CABG). Normal mediastinum and beverly. Normal visualized pulmonary arteries. There is atherosclerotic calcification of the aortic arch with tortuosity. There is a dextroscoliosis of the thoracic spine. There is degenerative osteoarthritis of the bilateral shoulders. Healed proximal left humeral fracture with deformity. There is no demonstrated abnormality of the visualized soft tissue structures of the upper abdomen. RAD/Chest 1 View (Portable) IMPRESSION: Stable elevation of the left hemidiaphragm. The lungs are clear. Electronically Signed: Gonzales Dowell MD at 14:31 EDT ,
[2021-11-15 13:52] LABS: Absolute Lymphocyte Count 1.44 X10^3/uL (0.83-4.51); Absolute Neutrophil Count 5.4 X10^3/uL (2.0-7.7); Basophil# 0.02 X10^3/uL; Basophil% 0.3 % (0-1); Eosinophil# 0.16 X10^3/uL; Eosinophils% 2.2 % (0-5); Hematocrit 31.2 % (37-47); Hemoglobin 9.2 g/dL (12.0-15.0); Lymphocyte # 1.44 X10^3/ul (0.83-4.51); Lymphocyte % 20.2 % (19-41); Mean Corp Hgb Conc 29.5 g/dL (32-36); Mean Corpuscular Hgb 24.9 pg (27.0-32.0); Mean Corpuscular Volume 84.6 fL (81-99); Mean Platelet Vol. 9.4 fl (6.2-12.0); Monocyte# 0.11 X10^3/uL; Monocyte% 1.5 % (0-10); NRBC Flagged by Analyzer 0 % (0-5); Neutrophil # 5.37 X10^3/uL (2.7-7.7); Neutrophil % 75.5 % (47-70); Platelet Count 284 K/mm3 (150-450); RBC Distribution Width CV 17.6 % (11.6-14.6); RBC Distribution Width SD 54.4 fl (35.1-43.9); Red Blood Count 3.69 M/mm3 (4.2-5.4); White Blood Count 7.1 K/mm3 (4.4-11.0)
[2021-11-15] MEDS: Aspirin 325 MG Tablet PO (13:56)
[2021-11-15 14:11] LABS: Anion Gap 4 (5-15); BUN 18 mg/dL (7-18); BUN/Creat Ratio 22.7 RATIO (10-20); Calcium,Total 8.3 mg/dL (8.5-10.1); Chloride 108 mmol/L (98-107); Creatinine, Serum 0.79 mg/dL (0.55-1.02); EST Glomerular Filtration Rate 75 mL/min (>60); Est Glom Filt Rate - Afr Amer 91 mL/min (>60); Estimated Creatinine Clearance 35.45 ml/min; Glucose 114 mg/dL (74-106); Potassium 4.3 mmol/L (3.5-5.1); Sodium Level 143 mmol/L (136-145); Troponin-I HS (w/2H Reflex) 16 pg/mL (3.0-54.0)
[2021-11-15 15:50] LABS: Reflex Troponin-HS? (from REC) Y
--- NOTE | 2021-11-15 16:00 | ED.RN ---
2ND TROPONIN EXPLAINED TO PT. AND DAUGHTER REINFORCED PROCESS. PT REQUESTING ATIVAN PER HER NORMAL ROUTINE.
--- NOTE | 2021-11-15 16:10 | ED.RN ---
NEW ORDERS FOR ATIVAN. REINFORCED PLAN WITH PT
[2021-11-15] MEDS: LORazepam 1 MG Tablet PO (16:16)
[2021-11-15 16:35] LABS: Troponin-I HS 17 pg/mL (3.0-54.0)
--- NOTE | 2021-11-15 16:37 | CT_ITS ---
We are attempting to reach an attending provider to discuss findings. An addendum with communication details will be sent when the communication is complete. STUDY: CTA CHEST REASON FOR EXAM: Female, 76 years old. chest pain. RECTAL CANCER RADIATION DOSAGE (If Supplied By Facility): CTDIvol = ( 9.77 ) mGy, DLP = ( 449.86 ) mGycm TECHNIQUE: The examination was performed with the intravenous administration of IV 75mL [id number]-[id number]. Post-processing of the angiographic images was performed, with multiplanar reformation and 3D reconstruction. Individualized dose optimization techniques were used for this CT. COMPARISON: 10/08/2021 FINDINGS: Status post median sternotomy. Normal enhancement of the main pulmonary artery and right and left pulmonary arteries. Normal enhancement of the bilateral peripheral pulmonary arteries. Linear filling defect within a subsegmental branch of the asymmetry left pulmonary artery consistent with pulmonary embolism. There is atherosclerotic calcification of the aortic arch with tortuosity. There is no demonstrated aortic dissection. Normal heart and pericardium. Normal mediastinum. Normal hilar regions. Normal visualized trachea and bronchi. The lungs are well expanded. Mild emphysema. No noncalcified nodule or mass. Normal pleura. Normal chest wall structures. Normal osseous structures. Status post cholecystectomy. CT/CTA Chest W/WO Contrast IMPRESSION: Positive for pulmonary embolism in the left upper lobe. Electronically Signed: Murtaza Donald MD at 18:10 EDT ,
--- NOTE | 2021-11-15 16:58 | ED.RN ---
REVIEWED NEW ORDER FOR CT AND RATIONALE R/O. PT VERBALIZED UNDERSTANDING. NO NEEDS VOICED AT THIS TIME.
[2021-11-15] MEDS: APIXABAN 5 MG TABLET 10 MG PO (20:17)
--- NOTE | 2021-11-15 20:31 | EDS_ITS ---
HPI History of Present Illness Chief Complaint: Chest Pain Informant: patient Onset/Context/Timing Onset: Today Narrative Narrative: Patient is a 76-year-old female with recent diagnosis of NSTEMI status post cardiac catheterization with PCI presenting with chest pain and atrial fibrillation on Plavix and aspirin. Patient was also recently diagnosed with anal cancer and started radiation and chemo with 5FU. She does have a history of rectal bleeding which was thought to be secondary to her cancer. While radiation today she developed sudden onset of left-sided chest pain. She reportedly had a low heart rate at that time in the 30s and they thought she was having an A. fib attack. This report is given by the patient's daughter who was there for her treatment. Patient denies any history of blood clots. Denies any shortness of breath. Her symptoms have since resolved and she feels much better. No other complaints at this time. [facility] Medical History Anxiety and depression Atherosclerosis of coronary artery bypass graft without angina pectoris Atherosclerosis of coronary artery of [place] heart with angina pectoris Back pain Benzodiazepine dependence CAD (coronary artery disease) Carotid artery stenosis Community acquired pneumonia COPD (chronic obstructive pulmonary disease) COPD (chronic obstructive pulmonary disease) CVA (cerebral vascular accident) DDD (degenerative disc disease), lumbar Depression with anxiety Diastolic dysfunction Elevated troponin Essential (primary) hypertension Guaiac positive stools H/O: pneumonia Hemorrhoids, external History of rectal cancer History of thyroid cancer Hyperlipidemia Hypothyroidism Nicotine dependence Non-rheumatic mitral regurgitation Non-rheumatic tricuspid valve insufficiency Non-ST elevation (NSTEMI) myocardial infarction Obstructive sleep apnea Secondary pulmonary arterial hypertension TIA (transient ischemic attack) TIA (transient ischemic attack) Home Medications levothyroxine 75 mcg tablet 75 mcg PO QODAY thyroid 09/06/17 [History Last Taken 10/07/21] citalopram 40 mg tablet 40 mg PO DAILY depression 12/18/17 [History Last Taken 10/08/21] lisinopril 40 mg tablet 40 mg PO DAILY blood pressure 12/18/17 [History Last Taken 10/08/21] atenolol 50 mg tablet 50 mg PO DAILY heart rate 01/05/18 [History Last Taken 10/08/21] atorvastatin 40 mg tablet 40 mg PO DAILY cholesterol 01/05/18 [History Last Taken 10/07/21] lorazepam 1 mg tablet 1 mg PO 4X/DAY anxiety 06/28/18 [History Last Taken 10/08/21] albuterol sulfate 0.63 mg/3 mL solution for nebulization 0.63 mg inhalation Q4H PRN Congestion 07/14/18 [History Last Taken 1 Week Ago ~10/01/21] bupropion HCl 100 mg tablet 100 mg PO DAILY mood 01/16/19 [History Last Taken 10/08/21] pantoprazole 40 mg tablet,delayed release 40 mg PO BID gerd 01/16/19 [History Last Taken 10/08/21] metoclopramide HCl 5 mg tablet (Reglan) 5 mg PO DAILY PRN nausea and vomiting #10 tabs 06/04/21 [Rx Last Taken Unknown] gabapentin 100 mg capsule 200 mg PO 4X/DAY pain 10/08/21 [History Last Taken 10/07/21] hydrocodone-acetaminophen 5-325mg 5mg-325mg 1 tab PO Q4H PRN PRN arm pain 10/08/21 [History Last Taken 10/07/21] oxybutynin chloride 5 mg tablet,extended release 24 hr 5 mg PO DAILY bladder 10/08/21 [History Last Taken 10/08/21] trazodone 100 mg tablet 100 mg PO QHS sleep 10/08/21 [History Last Taken 10/07/21] clopidogrel 75 mg tablet 75 mg PO DAILY #30 tabs 10/21/21 [Rx Last Taken Unknown] apixaban 5 mg (74 tabs) tablets in a dose pack (Eliquis DVT-PE Treat 30D Start) 5 mg PO BID #74 tabs 11/15/21 [Rx Last Taken Unknown] Allergy/AdvReac Type Severity Reaction Status Date / Time morphine Allergy PT UNSURE Verified 11/15/21 12:56 Penicillins Allergy Hives Verified 11/15/21 12:56 tramadol HCl [From Ultram] Allergy PT UNSURE Verified 11/15/21 12:56 bupropion [From Wellbutrin] AdvReac hallucinati Verified 11/15/21 12:56 ons Family History Father Heart disease of heart attack at age 64 Mother Cancer of cancer at age 72 CVA (cerebral vascular accident) Surgical History History of appendectomy History of coronary artery bypass graft x 3 (~2007) History of coronary artery stent placement (10/10/21) History of left heart catheterization (10/10/21) Hx of cholecystectomy Hx of thyroidectomy Presence of stent in coronary artery (~10/10/21) Social History household members: significant other Smoking Status: Current every day smoker tobacco type: cigarettes details: Patient denies alcohol use substance use type: does not use ROS ROS ED Constitutional Constitutional ED: Denies chills or fever(s) Eyes Eyes: Denies change in vision ENT ENT ED: Denies sore throat Cardiovascular Cardiovascular: Reports as per HPI and chest pain Respiratory/Chest Respiratory/Chest: Denies cough or dyspnea Gastrointestinal Gastrointestinal: Denies abdominal pain or melena Genitourinary Genitourinary ED: Denies dysuria Musculoskeletal Musculoskeletal: Denies arthralgias or myalgias Integumentary Denies rash Neurologic Neurologic: Denies weakness Psychiatric Psychiatric: Reports anxiety; Denies depression Hematologic/Lymphatic Hematologic/Lymphatic: Denies easy bleeding or easy bruising EXAM Physical Exam Const Vital Signs: 11/15/21 12:51 11/15/21 13:50 11/15/21 14:11 Temperature 98.4 F Temperature Source Oral Pulse Rate 71 63 Respiratory Rate 20 H 18 Blood Pressure 122/50 H 122/67 H Blood Pressure Mean 74 85 Pulse Ox 93 94 92 Oxygen Delivery Method Room Air Room Air Room Air 11/15/21 15:22 11/15/21 16:26 11/15/21 17:11 Temperature Temperature Source Pulse Rate 64 63 60 Respiratory Rate 16 18 18 Blood Pressure 126/66 H 146/58 H 128/78 H Blood Pressure Mean 86 87 94 Pulse Ox 97 94 93 Oxygen Delivery Method Room Air Room Air Room Air 11/15/21 18:06 11/15/21 19:22 11/15/21 20:18 Temperature Temperature Source Oral Pulse Rate 62 66 Respiratory Rate 18 17 18 Blood Pressure 128/78 H Blood Pressure Mean 94 Pulse Ox 93 98 Oxygen Delivery Method Room Air Room Air Positive well nourished and well developed General Appearance ED: well developed and NAD; Negative for pallor HEENT Reports moist mucous membranes Eyes PERRL and EOMs intact bilaterally Neck supple Chest Wall inspection of chest normal and palpation of chest normal Resp normal respiratory effort and clear to auscultation bilaterally Effort and Inspection: Negative for respiratory distress Cardio regular rate and regular rhythm Peripheral Pulses: pulses 2+ throughout GI normal to inspection, nondistended, normoactive bowel sounds and soft to palpation Extremity normal to inspection Neuro oriented x3 Motor Exam: Negative for general weakness Psych mental status grossly normal Mood & Affect: anxious Skin no rashes or lesions noted Skin Narrative: PICC line in RUE General Skin Exam: Negative for pallor Heart Score History: Slightly/Non-Suspicious ECG: Nonspecific Repolarization Age: >/= 65 years Risk Factors: >/= 3 Risk Factors or History of CAD Troponin: </= Normal Limit Score: 5 MDM MDM MDM Narrative Medical decision making narrative: Patient valuation onset of chest pain. She appears nontoxic in no acute distress. She had some reported bradycardia with this however she is not bradycardic in the ER and has no further episodes of bradycardia. EKG does not show acute ischemic changes. High sensitive troponin is normal at 16 and then 17. Patient has no further chest pain in the ER. Given her active cancer and recent hospitalization a CT of the chest is ordered which does show a subsegmental left upper pulmonary emboli. Case is discussed with cardiology, Dr. Lucio,given her recent PCI who will agree with starting her on Eliquis but recommend stopping her aspirin and continuing her Plavix. Case was then discussed with oncology on-call Dr. Sands, who will relay the information to her oncologist but is agreeable start the patient on Eliquis. Patient does have a history of GI bleeding but her hemoglobin is actually recovering. Is counseled that we will treat the pulmonary delay but she is at increased risk of bleeding and if she has any bleeding she should come emergently to the ER. She verbalized good understand this plan. Patient is discharged home in stable and improved condition. Is given first dose of Eliquis in the emergency room. Lab Data Attestation: I reviewed the patient's lab results. Labs: Laboratory Results - last 24 hr 11/15/21 11/15/21 11/15/21 13:45 13:45 16:10 WBC 7.1 RBC 3.69 L Hgb 9.2 L Hct 31.2 L MCV 84.6 MCH 24.9 L MCHC 29.5 L RDW Std Deviation 54.4 H RDW Coeff of John 17.6 H Plt Count 284 MPV 9.4 Immature Gran % (Auto) 0.300 Neut % (Auto) 75.5 H Lymph % (Auto) 20.2 [place] % (Auto) 1.5 Eos % (Auto) 2.2 Baso % (Auto) 0.3 Absolute Neuts (auto) 5.4 Absolute Lymphs (auto) 1.44 Nucleated RBC % 0 Sodium 143 Potassium 4.3 Chloride 108 H Carbon Dioxide 31.0 Anion Gap 4 L BUN 18 Creatinine 0.79 Estim Creat Clear Calc 35.45 Est GFR (MDRD) Af Amer 91 Est GFR (MDRD) Non-Af 75 BUN/Creatinine Ratio 22.7 H Glucose 114 H Calcium 8.3 L Troponin I High Sens 16 17 Radiography Chest X-Ray - ED: 1 View, Read by ED Physician, Read by Radiologist and No Acute Disease Diagnostic Testing: Clinical Impression(s) from Imaging Studies Chest X-Ray 11/15/21 13:45 IMPRESSION: Stable elevation of the left hemidiaphragm. The lungs are clear. Electronically Signed: Gonzales Dowell MD at 14:31 EDT , Chest CTA 11/15/21 16:37 IMPRESSION: Positive for pulmonary embolism in the left upper lobe. Electronically Signed: uMrtaza Donald MD at 18:10 EDT , ADDENDUM: 11/15/21 1822 IMPRESSION: Positive for pulmonary embolism in the left upper lobe. N.B. : The above Results were Read Back by Murtaza Donald MD to Dancia Casillas DO, and understanding confirmed on 11/15/2021 18:15:35 (ET). Electronically Signed: Murtaza Donald MD at 18:10 EDT , Rhythm Strip Rhythm Strip: Sinus Rhythm Rate: 66 Ectopy: PVC(s) EKG Initial EKG: Attestation: I personally reviewed and interpreted this EKG as follows: Interpretation: Sinus Rhythm Comments: Sinus rhythm with PVCs at a rate of 66 FL interval 202 Normal axis Normal intervals T wave inversions in inferior and precordial leads, no change prior to prior EKG on 10/20/2021 Discharge Plan Triage Chief Complaint: Chest Pain ED Provider: Danica Casillas Dx/Rx/DC Orders Clinical Impression: Pulmonary emboli, Chest pain Instructions: Apixaban Oral tablet, Embolism Pulmonary Dc Prescriptions: [place] DVT-PE Treat 30D Start 5 mg (74 tabs) tablets,dose pack 5 mg PO BID Qty: 74 0RF Rx Instructions: as directed No Action albuterol sulfate 0.63 mg/3 mL solution for nebulization 0.63 mg INHALATION Q4H PRN (Reason: Congestion) levothyroxine 75 MCG tablet 75 mcg PO QODAY citalopram 40 mg tablet 40 mg PO DAILY Rx Instructions: 40 mg PO 1 in am lisinopril 40 mg tablet 40 mg PO DAILY atenolol 50 MG tablet 50 mg PO DAILY atorvastatin 40 MG tablet 40 mg PO DAILY lorazepam 1 MG tablet 1 mg PO 4X/DAY Rx Instructions: takes at 0800, 1200, 1600, 2000 bupropion HCl 100 MG tablet 100 mg PO DAILY pantoprazole 40 MG tablet 40 mg PO BID metoclopramide HCl [Reglan] 5 mg tablet 5 mg PO DAILY PRN (Reason: nausea and vomiting) Qty: 10 0RF hydrocodone-acetaminophen 5-325 mg tablet 1 tab PO Q4H PRN PRN (Reason: arm pain) gabapentin 100 mg capsule 200 mg PO 4X/DAY Label Comments: Take 2 capsules by mouth three times daily for 180 days. trazodone 100 mg tablet 100 mg PO QHS Label Comments: TAKE 1 TABLET BY MOUTH EVERY DAY AT BEDTIME oxybutynin chloride 5 mg tablet extended release 24hr 5 mg PO DAILY Label Comments: Take 1 tablet by mouth once daily. clopidogrel 75 mg Tablet 75 mg PO DAILY Qty: 30 0RF Primary Care Provider: Zully Rojas Referrals: Zully Rojas MD [Primary Care Provider] - Kingsley Washburn DO [Med Staff - Active Staff] - 3-5 Days Activity Restrictions/Additional Instructions: You have a small blood clot in your left upper lung which is likely caused your pain today. I spoke with cardiology and oncology we feel you are safe to go home. We will start you on Eliquis. If you have further bleeding in your GI tract you need to return to the emergency room. Please stop taking aspirin daily but continue to take your Plavix in addition to the new blood thinner (Eliquis). Disposition Disposition: Home, Self Care
== END 2021-11-15 20:57 | disposition home or self-care (01) ==
PROVIDERS: Emergency Provider Emergency Medicine; PCP Internal Medicine; Visit Provider Emergency Medicine
DX: I26.99 Other pulmonary embolism without acute cor pulmonale (principal); J44.9 Chronic obstructive pulmonary disease, unspecified; I48.91 Unspecified atrial fibrillation; R07.9 Chest pain, unspecified; I10 Essential (primary) hypertension; F17.210 Nicotine dependence, cigarettes, uncomplicated; I25.10 Atherosclerotic heart disease of native coronary artery without angina pectoris; E78.5 Hyperlipidemia, unspecified; I25.2 Old myocardial infarction; M51.36 Other intervertebral disc degeneration, lumbar region; G47.33 Obstructive sleep apnea (adult) (pediatric); E03.9 Hypothyroidism, unspecified; F41.9 Anxiety disorder, unspecified; F32.A Depression, unspecified; Z86.73 Personal history of transient ischemic attack (TIA), and cerebral infarction without residual deficits; Z95.5 Presence of coronary angioplasty implant and graft; Z95.1 Presence of aortocoronary bypass graft; Z79.01 Long term (current) use of anticoagulants; Z79.899 Other long term (current) drug therapy
CPT/HCPCS: 36592; 71045; 71275; 80048; 84484; 85025; 93005; 99285; Q9967; A4216

== ENCOUNTER 2021-11-21 11:06 | Emergency (ER) | payer MEDICARE, SELFPAY ==
[2017-12-28 13:50] VITALS: BMI 29.2
[2021-11-21 11:07] VITALS: BP 117/61; PULSE 72; RESP 14; TEMP 36.2; O2SAT 98; BMI 27.8
--- NOTE | 2021-11-21 13:32 | ED.VIS.GI ---
HPI HPI - GI History of Present Illness Chief Complaint: GI Bleed Narrative Narrative: 76-year-old female presenting with blood in her stool. 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 Dr. Bartlett did the biopsy. Patient has been seeing Dr. Washburn. She did a week of chemotherapy which ended a week ago. She states this was constant. She has been doing radiation therapy to this area on her rectum daily. She states that the chemotherapy ended up being toxic to her and she developed blisters and ulcers of her tongue. Patient states he feels generally fatigued. She denies any nausea or vomiting. She denies fever. She does state that she noticed some blood on the toilet paper when she wipes. She has not seen blood dripping into the toilet. She states that has not soaked through her depends. She does not complain of lightheadedness or shortness of breath. She has not had any chest pain. [facility] Medical History Anxiety and depression Atherosclerosis of coronary artery bypass graft without angina pectoris Atherosclerosis of coronary artery of [place] heart with angina pectoris Back pain Benzodiazepine dependence CAD (coronary artery disease) Carotid artery stenosis Community acquired pneumonia COPD (chronic obstructive pulmonary disease) COPD (chronic obstructive pulmonary disease) CVA (cerebral vascular accident) DDD (degenerative disc disease), lumbar Depression with anxiety Diastolic dysfunction Elevated troponin Essential (primary) hypertension Guaiac positive stools H/O: pneumonia Hemorrhoids, external History of rectal cancer History of thyroid cancer Hyperlipidemia Hypothyroidism Nicotine dependence Non-rheumatic mitral regurgitation Non-rheumatic tricuspid valve insufficiency Non-ST elevation (NSTEMI) myocardial infarction Obstructive sleep apnea Secondary pulmonary arterial hypertension TIA (transient ischemic attack) TIA (transient ischemic attack) Home Medications levothyroxine 75 mcg tablet 75 mcg PO QODAY thyroid 09/06/17 [History Last Taken 10/07/21] citalopram 40 mg tablet 40 mg PO DAILY depression 12/18/17 [History Last Taken 10/08/21] lisinopril 40 mg tablet 40 mg PO DAILY blood pressure 12/18/17 [History Last Taken 10/08/21] atenolol 50 mg tablet 50 mg PO DAILY heart rate 01/05/18 [History Last Taken 10/08/21] atorvastatin 40 mg tablet 40 mg PO DAILY cholesterol 01/05/18 [History Last Taken 10/07/21] lorazepam 1 mg tablet 1 mg PO 4X/DAY anxiety 06/28/18 [History Last Taken 10/08/21] albuterol sulfate 0.63 mg/3 mL solution for nebulization 0.63 mg inhalation Q4H PRN Congestion 07/14/18 [History Last Taken 1 Week Ago ~10/01/21] bupropion HCl 100 mg tablet 100 mg PO DAILY mood 01/16/19 [History Last Taken 10/08/21] pantoprazole 40 mg tablet,delayed release 40 mg PO BID gerd 01/16/19 [History Last Taken 10/08/21] metoclopramide HCl 5 mg tablet (Reglan) 5 mg PO DAILY PRN nausea and vomiting #10 tabs 06/04/21 [Rx Last Taken Unknown] gabapentin 100 mg capsule 200 mg PO 4X/DAY pain 10/08/21 [History Last Taken 10/07/21] hydrocodone-acetaminophen 5-325mg 5mg-325mg 1 tab PO Q4H PRN PRN arm pain 10/08/21 [History Last Taken 10/07/21] oxybutynin chloride 5 mg tablet,extended release 24 hr 5 mg PO DAILY bladder 10/08/21 [History Last Taken 10/08/21] trazodone 100 mg tablet 100 mg PO QHS sleep 10/08/21 [History Last Taken 10/07/21] clopidogrel 75 mg tablet 75 mg PO DAILY #30 tabs 10/21/21 [Rx Last Taken Unknown] apixaban 5 mg (74 tabs) tablets in a dose pack (Eliquis DVT-PE Treat 30D Start) 5 mg PO BID #74 tabs 11/15/21 [Rx Last Taken Unknown] MAGIC MOUTH WASH (BMX) 180 mL suspension 10 ml PO Q6H PRN pain #180 mL 11/21/21 [Rx Last Taken Unknown] hydrocortisone 2.5 % topical cream with perineal applicator (Anusol-HC) 1 applic TN DAILY PRN pain #30 grams 11/21/21 [Rx Last Taken Unknown] Allergy/AdvReac Type Severity Reaction Status Date / Time morphine Allergy PT UNSURE Verified 11/21/21 11:07 Penicillins Allergy Hives Verified 11/21/21 11:07 tramadol HCl [From Ultram] Allergy PT UNSURE Verified 11/21/21 11:07 bupropion [From Wellbutrin] AdvReac hallucinati Verified 11/21/21 11:07 ons Family History Father Heart disease of heart attack at age 64 Mother Cancer of cancer at age 72 CVA (cerebral vascular accident) Surgical History History of appendectomy History of coronary artery bypass graft x 3 (~2007) History of coronary artery stent placement (10/10/21) History of left heart catheterization (10/10/21) Hx of cholecystectomy Hx of thyroidectomy Presence of stent in coronary artery (~10/10/21) Social History household members: significant other Smoking Status: Current every day smoker tobacco type: cigarettes details: Patient denies alcohol use substance use type: does not use ROS ROS ED Constitutional Constitutional ED: Denies chills or fever(s) ENT ENT ED: Denies rhinorrhea Cardiovascular Cardiovascular: Denies chest pain or palpitations Respiratory/Chest Respiratory/Chest: Denies cough or dyspnea Gastrointestinal Gastrointestinal: Reports other Details: Blood in stool, hemorrhoid ; Denies abdominal pain or constipation Genitourinary Genitourinary ED: Denies dysuria or hematuria Musculoskeletal Musculoskeletal: Denies arthralgias Integumentary Denies abscess or Abrasions Neurologic Neurologic: Denies headache(s) or paresthesias Psychiatric Psychiatric: Denies anxiety or depression EXAM Physical Exam Const Vital Signs: 11/21/21 11:07 11/21/21 14:48 Temperature 97.2 F L Temperature Source Temporal Pulse Rate 72 74 Respiratory Rate 14 Blood Pressure 117/61 145/49 H Blood Pressure Mean 79 81 Pulse Ox 98 Oxygen Delivery Method Room Air Positive well nourished General Appearance ED: NAD; Negative for pallor HEENT Reports TM's clear, moist mucous membranes and dry mucous membranes Tympanic Membrane ED: Yes TM's clear Mouth ED: Yes dry mucous membranes, No drooling, No fetor hepaticus, No muffled voice and Yes tongue abnormal Mouth: dry mucous membranes, No drooling, No fetor hepaticus, No muffled voice and tongue abnormal ulcerated and lesion Positive for ulcer and plaque Eyes PERRL and EOMs intact bilaterally General Eye ED: Negative for pale conjunctiva or scleral icterus Neck no lymphadenopathy Resp normal respiratory effort and clear to auscultation bilaterally Cardio regular rate and regular rhythm GI non-tender GI Narrative: There is one 5 mm hemorrhoid at 3-4 o'clock in the dorsolithotomy position. There is a excoriated area at the base of this without any active bleeding. No blood in the rectal vault. Palpation: soft Neuro CN's II-XII intact bilaterally and moves all extremities Sensorium / Orientation: alert Motor Exam: strength 5/5 throughout Psych mental status grossly normal Skin General Skin Exam: Negative for jaundice or pallor MDM MDM MDM Narrative Medical decision making narrative: Patient presenting with blood in the stool. On exam she does have what looks like a hemorrhoid which is excoriation at the base of it which probably was bleeding but is not actively bleeding. Perirectal area appears irritated but is not consistent with cellulitis. Her radiation therapist told her not to apply anything when she is going to radiation, but I did recommend she apply some kind of barrier cream after radiation is done. This may likely be the source. We will check basic lab work. Patient states she has something that she takes for her oral ulcerations on the base of her tongue. I will check basic lab work to make sure hemoglobin stable.hemoglobin is stable at 8.8. Last check was 9.2. Patient leukopenic but just recently had chemotherapy. Renal function electrolytes are normal. I suspect that the bleeding is only from the cancerous mass/hemorrhoid. Patient has a normal creatinine. BUN not elevated. Potassium slightly low at 3.2. I spoke with her and her daughter at length after speaking with Dr. Bailey. His recommendation are as follows. Cut the Eliquis to 5 mg p.o. twice daily because she has a small peripheral blood clot. She can continue her Eliquis. He recommended I prescribe her Anusol. I wrote her prescription for Magic mouthwash for her mouth lesions. He reported to me that she has not following up for her daily radiation treatments. He recommends that she may these appointments. I spoke with her daughter at length about this. I told her right now she has an isolated lesion in her rectum but this could metastasize if she does not do the appropriate therapy. She acknowledged understanding of this. 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 I again encouraged her to try to help her make follow-up. Between her radiation therapy she is to apply the Anusol and she can apply a barrier cream around her rectal area. She is to clean this off thoroughly before going to radiation. Impression: 1. Rectal adenocarcinoma 2. Bleeding from rectal adenocarcinoma 3. Medical noncompliance 4. Oral ulcers Lab Data Attestation: I reviewed the patient's lab results. Labs: Laboratory Results - last 24 hr 11/21/21 11/21/21 12:50 12:50 WBC 3.1 L RBC 3.47 L Hgb 8.8 L Hct 28.8 L MCV 83.0 MCH 25.4 L MCHC 30.6 L RDW Std Deviation 51.7 H RDW Coeff of [place] 17.2 H Plt Count 174 MPV 10.6 Immature Gran % (Auto) 0.300 Neut % (Auto) 55.9 Lymph % (Auto) 36.6 [place] % (Auto) 4.9 Eos % (Auto) 1.6 Baso % (Auto) 0.7 Absolute Neuts (auto) 1.7 L Absolute Lymphs (auto) 1.12 Nucleated RBC % 0 Sodium 142 Potassium 3.2 L Chloride 109 H Carbon Dioxide 28.0 Anion Gap 5 BUN 15 Creatinine 0.67 Estim Creat Clear Calc 37.24 Est GFR (MDRD) Af Amer 111 Est GFR (MDRD) Non-Af 92 BUN/Creatinine Ratio 22.5 H Glucose 104 Calcium 8.2 L Total Bilirubin 0.70 AST 12 L ALT 13 Alkaline Phosphatase 110 Total Protein 6.3 L Albumin 3.0 L Globulin 3.3 Albumin/Globulin Ratio 0.9 Discharge Plan Triage Chief Complaint: GI Bleed ED Provider: Ryley Arora Dx/Rx/DC Orders Prescriptions: New hydrocortisone [Anusol-HC] 2.5 % cream with perineal applicator 1 applic TN DAILY PRN (Reason: pain) Qty: 30 0RF MAGIC MOUTH WASH (BMX) 180 mL suspension 10 ml PO Q6H PRN (Reason: pain) Qty: 180 0RF Rx Instructions: diphenhydramine 12.5 mg/5 mL oral liquid 60 mL; aluminum-mag hydroxide-simethicone 400 mg-400 mg-40 mg/5 mL oral susp 60 mL; Lidocaine Viscous 2 % mucosal solution 60 mL; Per 180 mL No Action albuterol sulfate 0.63 mg/3 mL solution for nebulization 0.63 mg INHALATION Q4H PRN (Reason: Congestion) levothyroxine 75 MCG tablet 75 mcg PO QODAY citalopram 40 mg tablet 40 mg PO DAILY Rx Instructions: 40 mg PO 1 in am lisinopril 40 mg tablet 40 mg PO DAILY atenolol 50 MG tablet 50 mg PO DAILY atorvastatin 40 MG tablet 40 mg PO DAILY lorazepam 1 MG tablet 1 mg PO 4X/DAY Rx Instructions: takes at 0800, 1200, 1600, 2000 bupropion HCl 100 MG tablet 100 mg PO DAILY pantoprazole 40 MG tablet 40 mg PO BID metoclopramide HCl [Reglan] 5 mg tablet 5 mg PO DAILY PRN (Reason: nausea and vomiting) Qty: 10 0RF hydrocodone-acetaminophen 5-325 mg tablet 1 tab PO Q4H PRN PRN (Reason: arm pain) gabapentin 100 mg capsule 200 mg PO 4X/DAY Label Comments: Take 2 capsules by mouth three times daily for 180 days. trazodone 100 mg tablet 100 mg PO QHS Label Comments: TAKE 1 TABLET BY MOUTH EVERY DAY AT BEDTIME oxybutynin chloride 5 mg tablet extended release 24hr 5 mg PO DAILY Label Comments: Take 1 tablet by mouth once daily. clopidogrel 75 mg Tablet 75 mg PO DAILY Qty: 30 0RF Eliquis DVT-PE Treat 30D Start 5 mg (74 tabs) tablets,dose pack 5 mg PO BID Qty: 74 0RF Rx Instructions: as directed Primary Care Provider: Zully Rojas Referrals: Zully Rojas MD [Primary Care Provider] - Disposition Disposition: Home, Self Care
[2021-11-21 13:53] LABS: Absolute Lymphocyte Count 1.12 X10^3/uL (0.83-4.51); Absolute Neutrophil Count 1.7 X10^3/uL (2.0-7.7); Basophil# 0.02 X10^3/uL; Basophil% 0.7 % (0-1); Eosinophil# 0.05 X10^3/uL; Eosinophils% 1.6 % (0-5); Hematocrit 28.8 % (37-47); Hemoglobin 8.8 g/dL (12.0-15.0); Lymphocyte # 1.12 X10^3/ul (0.83-4.51); Lymphocyte % 36.6 % (19-41); Mean Corp Hgb Conc 30.6 g/dL (32-36); Mean Corpuscular Hgb 25.4 pg (27.0-32.0); Mean Platelet Vol. 10.6 fl (6.2-12.0); Monocyte# 0.15 X10^3/uL; Monocyte% 4.9 % (0-10); NRBC Flagged by Analyzer 0 % (0-5); Neutrophil # 1.71 X10^3/uL (2.7-7.7); Neutrophil % 55.9 % (47-70); Platelet Count 174 K/mm3 (150-450); RBC Distribution Width CV 17.2 % (11.6-14.6); RBC Distribution Width SD 51.7 fl (35.1-43.9); Red Blood Count 3.47 M/mm3 (4.2-5.4); White Blood Count 3.1 K/mm3 (4.4-11.0)
[2021-11-21 14:08] LABS: ALB/GLOB Ratio 0.9 RATIO (0.9-2.4); AST(SGOT) 12 U/L (15-37); Alanine Aminotransfer ALT/SGPT 13 U/L (13-56); Alkaline Phosphatase 110 U/L (45-117); Anion Gap 5 (5-15); BUN 15 mg/dL (7-18); BUN/Creat Ratio 22.5 RATIO (10-20); Calcium,Total 8.2 mg/dL (8.5-10.1); Chloride 109 mmol/L (98-107); Creatinine, Serum 0.67 mg/dL (0.55-1.02); EST Glomerular Filtration Rate 92 mL/min (>60); Est Glom Filt Rate - Afr Amer 111 mL/min (>60); Estimated Creatinine Clearance 37.24 ml/min; Globulin 3.3 g/dL (2.2-4.2); Glucose 104 mg/dL (74-106); Potassium 3.2 mmol/L (3.5-5.1); Protein, Total 6.3 g/dL (6.4-8.2); Sodium Level 142 mmol/L (136-145)
[2021-11-21 14:48] VITALS: BP 145/49; PULSE 74
[2021-11-21 15:01] VITALS: BP 145/49
== END 2021-11-21 16:43 | disposition home or self-care (01) ==
PROVIDERS: Emergency Provider Student in an Organized Health Care Education/Training Program; PCP Internal Medicine; Visit Provider Student in an Organized Health Care Education/Training Program
DX: C20 Malignant neoplasm of rectum (principal); K12.1 Other forms of stomatitis; K62.5 Hemorrhage of anus and rectum; F17.210 Nicotine dependence, cigarettes, uncomplicated; I25.10 Atherosclerotic heart disease of native coronary artery without angina pectoris; I25.2 Old myocardial infarction; Z86.73 Personal history of transient ischemic attack (TIA), and cerebral infarction without residual deficits; Z95.1 Presence of aortocoronary bypass graft; Z95.5 Presence of coronary angioplasty implant and graft; Z91.14 Patient's other noncompliance with medication regimen
CPT/HCPCS: 80053; 85025; 99282; A4216

== ENCOUNTER 2021-12-04 11:57 | Emergency (ER) | payer MEDICARE, SELFPAY ==
[2017-12-28 13:50] VITALS: BMI 29.2
[2021-12-04] VITALS (8 sets, daily range): BP systolic 106–138; BP diastolic 35–58; PULSE 43–55; RESP 12–20; TEMP 35.8; O2SAT 86–100; BMI 27.0
[2021-12-04 12:52] LABS: Absolute Lymphocyte Count 0.75 X10^3/uL (0.83-4.51); Absolute Neutrophil Count 4.5 X10^3/uL (2.0-7.7); Basophil# 0.03 X10^3/uL; Basophil% 0.5 % (0-1); Eosinophil# 0.08 X10^3/uL; Eosinophils% 1.4 % (0-5); Hematocrit 29.8 % (37-47); Hemoglobin 8.9 g/dL (12.0-15.0); Lymphocyte # 0.75 X10^3/ul (0.83-4.51); Lymphocyte % 13.2 % (19-41); Mean Corp Hgb Conc 29.9 g/dL (32-36); Mean Corpuscular Hgb 26.2 pg (27.0-32.0); Mean Corpuscular Volume 87.6 fL (81-99); Mean Platelet Vol. 8.9 fl (6.2-12.0); Monocyte% 5.3 % (0-10); NRBC Flagged by Analyzer 0 % (0-5); Neutrophil # 4.46 X10^3/uL (2.7-7.7); Neutrophil % 78.5 % (47-70); POSITIVE MORPHOLOGY YES; Platelet Count 269 K/mm3 (150-450); RBC Distribution Width CV 23.3 % (11.6-14.6); RBC Distribution Width SD 71.5 fl (35.1-43.9); White Blood Count 5.7 K/mm3 (4.4-11.0)
[2021-12-04 12:54] LABS: Differential Indicated SCAN CRITERIA MET
[2021-12-04 13:05] LABS: Anion Gap 2 (5-15); BUN 11 mg/dL (7-18); BUN/Creat Ratio 14.2 RATIO (10-20); Calcium,Total 8.4 mg/dL (8.5-10.1); Chloride 108 mmol/L (98-107); Creatinine, Serum 0.77 mg/dL (0.55-1.02); EST Glomerular Filtration Rate 78 mL/min (>60); Est Glom Filt Rate - Afr Amer 94 mL/min (>60); Estimated Creatinine Clearance 37.24 ml/min; Glucose 128 mg/dL (74-106); Sodium Level 140 mmol/L (136-145)
[2021-12-04 13:23] LABS: Differential Comment SCANNED
[2021-12-04 13:24] LABS: Anisocytosis 2+; Macrocytosis 1+; Microcytosis 1+
[2021-12-04 13:53] LABS: Bacteria 0 SEEN /hpf (None Seen); Mucous, Urine 0 SEEN /hpf (<or=2+); Red Blood Cells-Urine 0 SEEN /hpf (0-5)
[2021-12-04 13:55] LABS: Color, Urine Yellow (Yellow); Glucose, Dipstick Normal (Normal); Ketone-Dipstick 5 mg/dl (Negative); Leukocyte Esterase-Dipstick 25 /ul (Negative); Nitrite-Dipstick Negative (Negative); Occult Blood-Urine Negative /ul (Negative); Protein-Dipstick 30 mg/dl (Negative); Specific Gravity, Urine 1.025 (1.002-1.030); Urine Clarity Sl. Cloudy (Clear); Urine Urobilinogen 1 mg/dl (Normal)
[2021-12-04 13:59] LABS: Urine Bilirubin Dipstick 1 mg/dL (Negative)
[2021-12-04 14:02] LABS: Squamous Epithelial Cells - UA 0-5 SEEN /hpf (5-10); White Blood Cells 0-5 SEEN /hpf (0-5)
--- NOTE | 2021-12-04 14:54 | EDS_ITS ---
HPI History of Present Illness Chief Complaint: Weakness Informant: patient Narrative Narrative: Patient has anal cancer, she is getting chemotherapy and radiation. She went for her radiation treatment today and was orthostatic, near syncopal when she stood up. She states she has good days and bad days, today has been kind of a bad day, she has felt generally weak and malaised all day but no new symptoms. She has had her last chemotherapy 3 weeks ago, states her hair is starting to fall out, she has had vomiting and diarrhea for longer than that, and it is a lot better now still since she is on an antidiarrheal, she vomits less than 5 times per day and has diarrhea less than 5 times per day, her appetite is very poor and her oral intake is very poor, also complicated by the fact that she has an epigastric discomfort after eating. She was having some minor bleeding with diarrhea more because of the mass, she states that has improved, not worsened. [facility] Medical History Anxiety and depression Atherosclerosis of coronary artery bypass graft without angina pectoris Atherosclerosis of coronary artery of [place] heart with angina pectoris Back pain Benzodiazepine dependence CAD (coronary artery disease) Carotid artery stenosis Community acquired pneumonia COPD (chronic obstructive pulmonary disease) COPD (chronic obstructive pulmonary disease) CVA (cerebral vascular accident) DDD (degenerative disc disease), lumbar Depression with anxiety Diastolic dysfunction Elevated troponin Essential (primary) hypertension Guaiac positive stools H/O: pneumonia Hemorrhoids, external History of rectal cancer History of thyroid cancer Hyperlipidemia Hypothyroidism Nicotine dependence Non-rheumatic mitral regurgitation Non-rheumatic tricuspid valve insufficiency Non-ST elevation (NSTEMI) myocardial infarction Obstructive sleep apnea Secondary pulmonary arterial hypertension TIA (transient ischemic attack) TIA (transient ischemic attack) Home Medications levothyroxine 75 mcg tablet 75 mcg PO QODAY thyroid 09/06/17 [History Last Taken 10/07/21] citalopram 40 mg tablet 40 mg PO DAILY depression 12/18/17 [History Last Taken 10/08/21] lisinopril 40 mg tablet 40 mg PO DAILY blood pressure 12/18/17 [History Last Taken 10/08/21] atenolol 50 mg tablet 50 mg PO DAILY heart rate 01/05/18 [History Last Taken 10/08/21] atorvastatin 40 mg tablet 40 mg PO DAILY cholesterol 01/05/18 [History Last Taken 10/07/21] lorazepam 1 mg tablet 1 mg PO 4X/DAY anxiety 06/28/18 [History Last Taken 10/08/21] albuterol sulfate 0.63 mg/3 mL solution for nebulization 0.63 mg inhalation Q4H PRN Congestion 07/14/18 [History Last Taken 1 Week Ago ~10/01/21] bupropion HCl 100 mg tablet 100 mg PO DAILY mood 01/16/19 [History Last Taken 10/08/21] pantoprazole 40 mg tablet,delayed release 40 mg PO BID gerd 01/16/19 [History Last Taken 10/08/21] metoclopramide HCl 5 mg tablet (Reglan) 5 mg PO DAILY PRN nausea and vomiting #10 tabs 06/04/21 [Rx Last Taken Unknown] gabapentin 100 mg capsule 200 mg PO 4X/DAY pain 10/08/21 [History Last Taken 10/07/21] hydrocodone-acetaminophen 5-325mg 5mg-325mg 1 tab PO Q4H PRN PRN arm pain 10/08/21 [History Last Taken 10/07/21] oxybutynin chloride 5 mg tablet,extended release 24 hr 5 mg PO DAILY bladder 10/08/21 [History Last Taken 10/08/21] trazodone 100 mg tablet 100 mg PO QHS sleep 10/08/21 [History Last Taken 10/07/21] clopidogrel 75 mg tablet 75 mg PO DAILY #30 tabs 10/21/21 [Rx Last Taken Unknown] apixaban 5 mg (74 tabs) tablets in a dose pack (Eliquis DVT-PE Treat 30D Start) 5 mg PO BID #74 tabs 11/15/21 [Rx Last Taken Unknown] MAGIC MOUTH WASH (BMX) 180 mL suspension 10 ml PO Q6H PRN pain #180 mL 11/21/21 [Rx Last Taken Unknown] hydrocortisone 2.5 % topical cream with perineal applicator (Anusol-HC) 1 applic [place] DAILY PRN pain #30 grams 11/21/21 [Rx Last Taken Unknown] Allergy/AdvReac Type Severity Reaction Status Date / Time morphine Allergy PT UNSURE Verified 11/21/21 11:07 Penicillins Allergy Hives Verified 11/21/21 11:07 tramadol HCl [From Ultram] Allergy PT UNSURE Verified 11/21/21 11:07 bupropion [From Wellbutrin] AdvReac hallucinati Verified 11/21/21 11:07 ons Family History Father Heart disease of heart attack at age 64 Mother Cancer of cancer at age 72 CVA (cerebral vascular accident) Surgical History History of appendectomy History of coronary artery bypass graft x 3 (~2007) History of coronary artery stent placement (10/10/21) History of left heart catheterization (10/10/21) Hx of cholecystectomy Hx of thyroidectomy Presence of stent in coronary artery (~10/10/21) Social History household members: significant other Smoking Status: Current every day smoker tobacco type: cigarettes details: Patient denies alcohol use substance use type: does not use ROS ROS ED Constitutional Constitutional ED: Reports poor appetite and weakness; Denies chills or fever(s) Eyes Eyes: Denies change in vision or diplopia ENT ENT ED: Denies rhinorrhea or sore throat Cardiovascular Cardiovascular: Denies chest pain or palpitations Respiratory/Chest Respiratory/Chest: Reports cough; Denies dyspnea Gastrointestinal Gastrointestinal: Reports abdominal pain, diarrhea, nausea and vomiting Genitourinary Genitourinary ED: Denies dysuria or hematuria Musculoskeletal Musculoskeletal: Denies back pain or neck pain Integumentary Denies abscess or rash Neurologic Neurologic: Denies headache(s), paresthesias or weakness Psychiatric Psychiatric: Denies anxiety or suicidal thoughts EXAM Physical Exam Const Vital Signs: 12/04/21 12:00 12/04/21 12:51 12/04/21 12:51 Temperature 96.5 F L 96.5 F L Temperature Source Temporal Temporal Pulse Rate 55 L 52 L Pulse Rate [Standing (for 1 minute prior to obtaining)] Respiratory Rate 20 H 12 Respiratory Effort Normal Non-Labored Respiratory Pattern Normal Blood Pressure 106/35 L 106/35 L Blood Pressure [Standing (for 1 minute prior to obtaining)] Blood Pressure Mean 58 58 Blood Pressure Mean [Standing (for 1 minute prior to obtaining)] Pulse Ox 93 86 Oxygen Delivery Method Room Air Room Air Oxygen Flow Rate (L/min) 12/04/21 12:57 12/04/21 14:30 12/04/21 14:54 Temperature Temperature Source Pulse Rate 45 L 43 L Pulse Rate [Standing (for 1 minute prior to obtaining)] Respiratory Rate 15 14 Respiratory Effort Respiratory Pattern Blood Pressure 138/58 H Blood Pressure [Standing (for 1 minute prior to obtaining)] Blood Pressure Mean 84 Blood Pressure Mean [Standing (for 1 minute prior to obtaining)] Pulse Ox 99 99 100 Oxygen Delivery Method Nasal Cannula Nasal Cannula Nasal Cannula Oxygen Flow Rate (L/min) 2 2 2 12/04/21 16:06 12/04/21 16:30 Temperature Temperature Source Pulse Rate 51 L Pulse Rate [Standing (for 1 minute prior to obtaining)] 46 L Respiratory Rate 20 H Respiratory Effort Respiratory Pattern Blood Pressure Blood Pressure [Standing (for 1 minute prior to obtaining)] 112/44 L Blood Pressure Mean Blood Pressure Mean [Standing (for 1 minute prior to obtaining)] 66 Pulse Ox 98 Oxygen Delivery Method Room Air Oxygen Flow Rate (L/min) Positive well nourished and well developed General Appearance ED: well developed and NAD HEENT Reports moist mucous membranes normocephalic and atraumatic Eyes PERRL and EOMs intact bilaterally Neck full ROM and supple Resp normal respiratory effort and clear to auscultation bilaterally Cardio regular rate, regular rhythm and no murmurs GI non-distended GI Narrative: Mild epigastric tenderness otherwise benign abdomen. Auscultation: normoactive bowel sounds Palpation: soft Back/Spine no CVA tenderness General Back: other FROM Extremity normal to inspection General Extremety ED: Negative for edema, pulses abnormal or tenderness General Extremity: Negative for edema or pulses abnormal Neuro oriented x3, CN's II-XII intact bilaterally and no sensory deficits noted Neuro Narrative: Generally weak, moves all 4 extremities symmetrically Sensorium / Orientation: awake and alert Motor Exam: strength 5/5 throughout Psych mental status grossly normal Skin no rashes or lesions noted and no wounds MDM MDM MDM Narrative Medical decision making narrative: Work-upPatient is anemic at 8.9 hemoglobin but her numbers look relatively stable and her other blood counts are good with a white blood count of 5.7. Unremarkable, she is not grossly dehydrated but I think that was probably part of her symptoms. She agrees that her oral intake has been relatively poor work. Because of her epigastric discomfort I gave her a dose of Mylanta and Protonix after Zofran. Those medications really helped. We did modify orthostatics, she was not orthostatic when she stood up. She wants to go home I am comfortable with that, she is already on a PPI, I encouraged fluids and antacids as needed. Lab Data Attestation: I reviewed the patient's lab results. Labs: Laboratory Results - last 24 hr 12/04/21 12/04/21 12/04/21 12:42 12:42 13:40 WBC 5.7 RBC 3.40 L Hgb 8.9 L Hct 29.8 L MCV 87.6 MCH 26.2 L MCHC 29.9 L RDW Std Deviation 71.5 H RDW Coeff of John 23.3 H Plt Count 269 MPV 8.9 Immature Gran % (Auto) 1.100 H Neut % (Auto) 78.5 H Lymph % (Auto) 13.2 L [place] % (Auto) 5.3 Eos % (Auto) 1.4 Baso % (Auto) 0.5 Absolute Neuts (auto) 4.5 Absolute Lymphs (auto) 0.75 L Nucleated RBC % 0 Differential Comment SCANNED Anisocytosis 2+ Microcytosis 1+ Macrocytosis 1+ Sodium 140 Potassium 4.0 Chloride 108 H Carbon Dioxide 30.0 Anion Gap 2 L BUN 11 Creatinine 0.77 Estim Creat Clear Calc 37.24 Est GFR (MDRD) Af Amer 94 Est GFR (MDRD) Non-Af 78 BUN/Creatinine Ratio 14.2 Glucose 128 H Calcium 8.4 L Urine Color Yellow Urine Clarity Sl. Cloudy Urine pH 5.0 Ur Specific [place] 1.025 Urine Protein 30 H Urine Glucose (UA) Normal Urine Ketones 5 H Urine Occult Blood Negative Urine Nitrite Negative Urine Bilirubin 1 H Urine Urobilinogen 1 H Ur Leukocyte Esterase 25 H Urine RBC 0 SEEN Urine WBC 0-5 SEEN Ur Squamous Epith Cells 0-5 SEEN Urine Bacteria 0 SEEN Urine Mucus 0 SEEN Discharge Plan Triage Chief Complaint: Weakness ED Provider: Gurmeet Carrillo Dx/Rx/DC Orders Clinical Impression: Mild dehydration, History of rectal cancer, Generalized weakness Instructions: ED Dehydration (Adult) Prescriptions: No Action albuterol sulfate 0.63 mg/3 mL solution for nebulization 0.63 mg INHALATION Q4H PRN (Reason: Congestion) levothyroxine 75 MCG tablet 75 mcg PO QODAY citalopram 40 mg tablet 40 mg PO DAILY Rx Instructions: 40 mg PO 1 in am lisinopril 40 mg tablet 40 mg PO DAILY atenolol 50 MG tablet 50 mg PO DAILY atorvastatin 40 MG tablet 40 mg PO DAILY lorazepam 1 MG tablet 1 mg PO 4X/DAY Rx Instructions: takes at 0800, 1200, 1600, 2000 bupropion HCl 100 MG tablet 100 mg PO DAILY pantoprazole 40 MG tablet 40 mg PO BID metoclopramide HCl [Reglan] 5 mg tablet 5 mg PO DAILY PRN (Reason: nausea and vomiting) Qty: 10 0RF hydrocodone-acetaminophen 5-325 mg tablet 1 tab PO Q4H PRN PRN (Reason: arm pain) gabapentin 100 mg capsule 200 mg PO 4X/DAY Label Comments: Take 2 capsules by mouth three times daily for 180 days. trazodone 100 mg tablet 100 mg PO QHS Label Comments: TAKE 1 TABLET BY MOUTH EVERY DAY AT BEDTIME oxybutynin chloride 5 mg tablet extended release 24hr 5 mg PO DAILY Label Comments: Take 1 tablet by mouth once daily. clopidogrel 75 mg Tablet 75 mg PO DAILY Qty: 30 0RF Eliquis DVT-PE Treat 30D Start 5 mg (74 tabs) tablets,dose pack 5 mg PO BID Qty: 74 0RF Rx Instructions: as directed hydrocortisone [Anusol-HC] 2.5 % cream with perineal applicator 1 applic [place] DAILY PRN (Reason: pain) Qty: 30 0RF MAGIC MOUTH WASH (BMX) 180 mL suspension 10 ml PO Q6H PRN (Reason: pain) Qty: 180 0RF Rx Instructions: diphenhydramine 12.5 mg/5 mL oral liquid 60 mL; aluminum-mag hydroxide- simethicone 400 mg-400 mg-40 mg/5 mL oral susp 60 mL; Lidocaine Viscous 2 % muco silke solution 60 mL; Per 180 mL Primary Care Provider: Zully Rojas Referrals: Zully Rojas MD [Primary Care Provider] - 3-5 Days if not improving Disposition Disposition: Home, Self Care
[2021-12-04] MEDS: 0.9% Normal Saline 1,000 ML 999 ML IV (14:55)
[2021-12-04] MEDS: Ondansetron 4 MG/2 ML Vial IV (15:07)
[2021-12-04] MEDS: Mag Hydrox/Al Hydrox/Simeth 30 ML UDC PO (15:51)
== END 2021-12-04 17:22 | disposition home or self-care (01) ==
PROVIDERS: Emergency Provider Emergency Medicine; PCP Internal Medicine; Visit Provider Emergency Medicine
DX: E86.0 Dehydration (principal); R53.1 Weakness; I25.10 Atherosclerotic heart disease of native coronary artery without angina pectoris; F17.210 Nicotine dependence, cigarettes, uncomplicated; G47.33 Obstructive sleep apnea (adult) (pediatric); M51.36 Other intervertebral disc degeneration, lumbar region; Z86.73 Personal history of transient ischemic attack (TIA), and cerebral infarction without residual deficits; Z95.1 Presence of aortocoronary bypass graft; Z95.5 Presence of coronary angioplasty implant and graft
CPT/HCPCS: 36592; 80048; 81001; 85025; 96365; 96375; 99283; J7030; A4216; J2405; J3490

== ENCOUNTER 2022-01-27 16:52 | Emergency (ER) | payer MEDICARE, SELFPAY ==
[2017-12-28 13:50] VITALS: BMI 29.2
[2022-01-27 16:57] VITALS: BP 132/67; PULSE 70; RESP 18; TEMP 35.9; O2SAT 96; BMI 27.1
[2022-01-27 17:53] VITALS: BP 136/67; PULSE 66; RESP 16; O2SAT 99
--- NOTE | 2022-01-27 18:06 | EKG12_ITS ---
Test Reason : GENERAL Blood Pressure : / mmHG Vent. Rate : 063 BPM Atrial Rate : 111 BPM P-R Int : 182 ms QRS Dur : 076 ms QT Int : 436 ms P-R-T Axes : 085 049 261 degrees QTc Int : 446 ms Sinus rhythm with PSVC's ST & T wave abnormality, consider inferior ischemia ST & T wave abnormality, consider anterolateral ischemia Abnormal ECG Confirmed by LEONEL GOLD, EMILY ([id number]), medical transcription editor WALLY LOAIZA ([id number]) on 01/29/2022 10:16:47 AM Referred By: Confirmed By:EMILY CASTANEDA MD
--- NOTE | 2022-01-27 18:07 | EDS_ITS ---
HPI History of Present Illness Chief Complaint: Nausea/Vomiting Narrative Narrative: 76-year-old female past medical history of rectal carcinoma states she stopped treatment last month presents with generalized weakness that began today. She states she feels so weak and has no energy can barely get out of bed. She lives at home alone and states she is self-sufficient. She denies any fevers or chills but states she has a bad cough. She also endorses urinary frequency. She has nauseated but has not vomited. States she had an episode of diarrhea the other day. Her main concern is that she is very weak and cannot get out of bed. [facility] Medical History Anxiety and depression Atherosclerosis of coronary artery bypass graft without angina pectoris Atherosclerosis of coronary artery of [place] heart with angina pectoris Back pain Benzodiazepine dependence CAD (coronary artery disease) Carotid artery stenosis Community acquired pneumonia COPD (chronic obstructive pulmonary disease) COPD (chronic obstructive pulmonary disease) CVA (cerebral vascular accident) DDD (degenerative disc disease), lumbar Depression with anxiety Diastolic dysfunction Elevated troponin Essential (primary) hypertension Guaiac positive stools H/O: pneumonia Hemorrhoids, external History of rectal cancer History of thyroid cancer Hyperlipidemia Hypothyroidism Nicotine dependence Non-rheumatic mitral regurgitation Non-rheumatic tricuspid valve insufficiency Non-ST elevation (NSTEMI) myocardial infarction Obstructive sleep apnea Rectal cancer Secondary pulmonary arterial hypertension TIA (transient ischemic attack) TIA (transient ischemic attack) Home Medications levothyroxine 75 mcg tablet 75 mcg PO QODAY thyroid 09/06/17 [History Last Taken 10/07/21] citalopram 40 mg tablet 40 mg PO DAILY depression 12/18/17 [History Last Taken 10/08/21] lisinopril 40 mg tablet 40 mg PO DAILY blood pressure 12/18/17 [History Last Taken 10/08/21] atenolol 50 mg tablet 50 mg PO DAILY heart rate 01/05/18 [History Last Taken 10/08/21] atorvastatin 40 mg tablet 40 mg PO DAILY cholesterol 01/05/18 [History Last Taken 10/07/21] lorazepam 1 mg tablet 1 mg PO 4X/DAY anxiety 06/28/18 [History Last Taken 10/08/21] albuterol sulfate 0.63 mg/3 mL solution for nebulization 0.63 mg inhalation Q4H PRN Congestion 07/14/18 [History Last Taken 1 Week Ago ~10/01/21] bupropion HCl 100 mg tablet 100 mg PO DAILY mood 01/16/19 [History Last Taken 10/08/21] pantoprazole 40 mg tablet,delayed release 40 mg PO BID gerd 01/16/19 [History Last Taken 10/08/21] metoclopramide HCl 5 mg tablet (Reglan) 5 mg PO DAILY PRN nausea and vomiting #10 tabs 06/04/21 [Rx Last Taken Unknown] gabapentin 100 mg capsule 200 mg PO 4X/DAY pain 10/08/21 [History Last Taken 10/07/21] hydrocodone-acetaminophen 5-325mg 5mg-325mg 1 tab PO Q4H PRN PRN arm pain 10/08/21 [History Last Taken 10/07/21] oxybutynin chloride 5 mg tablet,extended release 24 hr 5 mg PO DAILY bladder 10/08/21 [History Last Taken 10/08/21] trazodone 100 mg tablet 100 mg PO QHS sleep 10/08/21 [History Last Taken 10/07/21] clopidogrel 75 mg tablet 75 mg PO DAILY #30 tabs 10/21/21 [Rx Last Taken Unknown] apixaban 5 mg (74 tabs) tablets in a dose pack (Eliquis DVT-PE Treat 30D Start) 5 mg PO BID #74 tabs 11/15/21 [Rx Last Taken Unknown] MAGIC MOUTH WASH (BMX) 180 mL suspension 10 ml PO Q6H PRN pain #180 mL 11/21/21 [Rx Last Taken Unknown] hydrocortisone 2.5 % topical cream with perineal applicator (Anusol-HC) 1 applic [place] DAILY PRN pain #30 grams 11/21/21 [Rx Last Taken Unknown] Allergy/AdvReac Type Severity Reaction Status Date / Time morphine Allergy PT UNSURE Verified 01/27/22 17:00 Penicillins Allergy Hives Verified 01/27/22 17:00 tramadol HCl [From Ultram] Allergy PT UNSURE Verified 01/27/22 17:00 bupropion [From Wellbutrin] AdvReac hallucinati Verified 01/27/22 17:00 ons Family History Father Heart disease of heart attack at age 64 Mother Cancer of cancer at age 72 CVA (cerebral vascular accident) Surgical History History of appendectomy History of coronary artery bypass graft x 3 (~2007) History of coronary artery stent placement (10/10/21) History of left heart catheterization (10/10/21) Hx of cholecystectomy Hx of thyroidectomy Presence of stent in coronary artery (~10/10/21) Social History household members: significant other Smoking Status: Current every day smoker tobacco type: cigarettes details: Patient denies alcohol use substance use type: does not use ROS ROS ED ROS Narrative Constitutional: No fever, no chills. Generalized weakness. Low energy. HEENT: No sore throat. No neck pain. No loss of vision. No rhinorrhea. Cardiovascular: No chest pain. No palpitations. No pedal edema. Respiratory: Positive cough, no shortness of breath. Abdominal: No abdominal pain. Positive nausea. No vomiting. Genitourinary: No dysuria. No hematuria. Urinary frequency Musculoskeletal: No myalgias. No arthralgias. Neurologic: No headaches. No dizziness. No lightheadedness. Skin: No rash. No change in color. Psychiatric: No depression. No anxiety. EXAM Physical Exam Narrative Exam Narrative: Afebrile. Vital signs noted. HEENT: Normocephalic. Atraumatic. PERRL, EOMI. Neck soft and supple. No point tenderness or step off. Cardiovascular: Regular rate and rhythm. No murmurs, rubs, or gallops appreciated. Respiratory: No tachypnea. Lungs clear to auscultation bilaterally. Gastrointestinal: Abdomen soft, nontender, with normoactive bowel sounds. No rebound or guarding. Neurological: Awake. Alert. Nonfocal, nonlateralizing. Skin: No rash. Normal color. No pallor. Musculoskeletal: No pedal edema. Full range of motion extremities. Const Vital Signs: 01/27/22 16:57 01/27/22 17:53 01/27/22 19:25 Temperature 96.7 F L Temperature Source Temporal Pulse Rate 70 66 60 Respiratory Rate 18 16 20 H Blood Pressure 132/67 H 136/67 H 126/52 H Blood Pressure Mean 88 90 76 Pulse Ox 96 99 Oxygen Delivery Method Room Air MDM MDM MDM Narrative Medical decision making narrative: Comprehensive work-up was pursued. She will be bolused normal saline. CBC, CMP, urinalysis were ordered. I will also obtain an EKG and a chest x-ray for cough along with COVID swab and influenza. Pulse ox is 99% on room air without evidence of hypoxia. CBC is grossly normal with a normal white count of 6.1, hemoglobin stable at 10.7 with hematocrit 34.7. Platelet count normal at 261. Electrolyte panel shows chloride slightly elevated at 108. LFTs unremarkable except for alk phos slightly elevated at 121. It is nonspecific. Chest x-ray interpreted by myself shows no acute process, no pneumonia. I do not feel antibiotics are indicated. Urinalysis is negative for infection with negative nitrites and WBC 0-5. While there is rare bacteria noted, I do not feel antibiotics are indicated as she is not having dysuria or any other complaints except perhaps urinary frequency. This will be sent for culture. At this point in time, she was able to ambulate to the bathroom without difficulty for her urine sample. I feel she be discharged safely home with follow-up. Her low energy may be secondary to her diagnosis of rectal carcinoma. Regardless, I feel she be discharged safely home with follow-up. Return instructions to the emergency department were reviewed. Disposition is discharged home in stable condition. Lab Data Attestation: I reviewed the patient's lab results. Labs: Laboratory Results - last 24 hr 01/27/22 01/27/22 01/27/22 16:35 16:35 19:20 WBC 6.1 RBC 3.92 L Hgb 10.7 L Hct 34.7 L MCV 88.5 MCH 27.3 MCHC 30.8 L RDW Std Deviation 65.8 H RDW Coeff of John 20.2 H Plt Count 261 MPV 9.9 Immature Gran % (Auto) 0.300 Neut % (Auto) 63.4 Lymph % (Auto) 27.0 [place] % (Auto) 7.2 Eos % (Auto) 1.6 Baso % (Auto) 0.5 Absolute Neuts (auto) 3.8 Absolute Lymphs (auto) 1.64 Nucleated RBC % 0 Differential Comment Sodium 142 Potassium 3.8 Chloride 108 H Carbon Dioxide 29.0 Anion Gap 5 BUN 9 Creatinine 0.75 Estim Creat Clear Calc 37.24 Est GFR (MDRD) Af Amer 97 Est GFR (MDRD) Non-Af 80 BUN/Creatinine Ratio 12.0 Glucose 100 Calcium 8.3 L Total Bilirubin 0.70 AST 20 ALT 18 Alkaline Phosphatase 121 H Total Protein 6.9 Albumin 3.1 L Globulin 3.8 Albumin/Globulin Ratio 0.8 L Urine Color Yellow Urine Clarity Clear Urine pH 5.0 Ur Specific [place] 1.025 Urine Protein 15 H Urine Glucose (UA) Normal Urine Ketones Negative Urine Occult Blood 10 H Urine Nitrite Negative Urine Bilirubin Negative Urine Urobilinogen Normal Ur Leukocyte Esterase 25 H Urine RBC 0 SEEN Urine WBC 0-5 SEEN Ur Squamous Epith Cells 0 SEEN Urine Bacteria RARE Urine Mucus RARE Radiography Diagnostic Testing: Clinical Impression(s) from Imaging Studies Chest X-Ray 01/27/22 18:23 IMPRESSION: Degenerative changes, as described above. No demonstrated acute cardiopulmonary process. Electronically Signed: Gurmeet Bailey MD at 18:56 EST Reading Location ID and State: [facility] / [place] , Service support , Discharge Plan Triage Chief Complaint: Nausea/Vomiting ED Provider: Julian Cordova Dx/Rx/DC Orders Clinical Impression: Generalized weakness, Low energy, Nausea Instructions: Cancer: Managing Fatigue, ED Weakness (Uncertain Cause) Prescriptions: No Action albuterol sulfate 0.63 mg/3 mL solution for nebulization 0.63 mg INHALATION Q4H PRN (Reason: Congestion) levothyroxine 75 MCG tablet 75 mcg PO QODAY citalopram 40 mg tablet 40 mg PO DAILY Rx Instructions: 40 mg PO 1 in am lisinopril 40 mg tablet 40 mg PO DAILY atenolol 50 MG tablet 50 mg PO DAILY atorvastatin 40 MG tablet 40 mg PO DAILY lorazepam 1 MG tablet 1 mg PO 4X/DAY Rx Instructions: takes at 0800, 1200, 1600, 2000 bupropion HCl 100 MG tablet 100 mg PO DAILY pantoprazole 40 MG tablet 40 mg PO BID metoclopramide HCl [Reglan] 5 mg tablet 5 mg PO DAILY PRN (Reason: nausea and vomiting) Qty: 10 0RF hydrocodone-acetaminophen 5-325 mg tablet 1 tab PO Q4H PRN PRN (Reason: arm pain) gabapentin 100 mg capsule 200 mg PO 4X/DAY Label Comments: Take 2 capsules by mouth three times daily for 180 days. trazodone 100 mg tablet 100 mg PO QHS Label Comments: TAKE 1 TABLET BY MOUTH EVERY DAY AT BEDTIME oxybutynin chloride 5 mg tablet extended release 24hr 5 mg PO DAILY Label Comments: Take 1 tablet by mouth once daily. clopidogrel 75 mg Tablet 75 mg PO DAILY Qty: 30 0RF Eliquis DVT-PE Treat 30D Start 5 mg (74 tabs) tablets,dose pack 5 mg PO BID Qty: 74 0RF Rx Instructions: as directed hydrocortisone [Anusol-HC] 2.5 % cream with perineal applicator 1 applic [place] DAILY PRN (Reason: pain) Qty: 30 0RF MAGIC MOUTH WASH (BMX) 180 mL suspension 10 ml PO Q6H PRN (Reason: pain) Qty: 180 0RF Rx Instructions: diphenhydramine 12.5 mg/5 mL oral liquid 60 mL; aluminum-mag hydroxide- simethicone 400 mg-400 mg-40 mg/5 mL oral susp 60 mL; Lidocaine Viscous 2 % mucosal solution 60 mL; Per 180 mL Primary Care Provider: Zully Rojas Referrals: Zully Rojas MD [Primary Care Provider] - 1-2 Days if not improving Disposition Disposition: Home, Self Care
[2022-01-27 18:13] LABS: Absolute Lymphocyte Count 1.64 X10^3/uL (0.83-4.51); Absolute Neutrophil Count 3.8 X10^3/uL (2.0-7.7); Basophil# 0.03 X10^3/uL; Basophil% 0.5 % (0-1); Eosinophils% 1.6 % (0-5); Hematocrit 34.7 % (37-47); Hemoglobin 10.7 g/dL (12.0-15.0); Lymphocyte # 1.64 X10^3/ul (0.83-4.51); Mean Corp Hgb Conc 30.8 g/dL (32-36); Mean Corpuscular Hgb 27.3 pg (27.0-32.0); Mean Corpuscular Volume 88.5 fL (81-99); Mean Platelet Vol. 9.9 fl (6.2-12.0); Monocyte# 0.44 X10^3/uL; Monocyte% 7.2 % (0-10); NRBC Flagged by Analyzer 0 % (0-5); Neutrophil # 3.84 X10^3/uL (2.7-7.7); Neutrophil % 63.4 % (47-70); POSITIVE MORPHOLOGY YES; Platelet Count 261 K/mm3 (150-450); RBC Distribution Width CV 20.2 % (11.6-14.6); RBC Distribution Width SD 65.8 fl (35.1-43.9); Red Blood Count 3.92 M/mm3 (4.2-5.4); White Blood Count 6.1 K/mm3 (4.4-11.0)
[2022-01-27 18:19] LABS: Differential Indicated SCAN CRITERIA MET
--- NOTE | 2022-01-27 18:23 | RAD_ITS ---
STUDY: X-RAY CHEST REASON FOR EXAM: Female, 76 years old. Cough TECHNIQUE: Single AP portable view of the chest. COMPARISON: December 05, 2021 FINDINGS: The lungs are clear and expanded. There is no demonstrated pleural abnormality. Sternal cerclage wires are present from a prior sternotomy. Normal mediastinum and beverly. Normal visualized pulmonary arteries. There is atherosclerotic calcification of the aortic arch with tortuosity. There is demineralization of the osseous structures. There is healing fracture of the left proximal humerus. There is no demonstrated abnormality of the visualized soft tissue structures of the upper abdomen. RAD/Chest 1 View (Portable) IMPRESSION: Degenerative changes, as described above. No demonstrated acute cardiopulmonary process. Electronically Signed: Gurmeet Bailey MD at 18:56 EST ,
[2022-01-27 18:35] LABS: ALB/GLOB Ratio 0.8 RATIO (0.9-2.4); AST(SGOT) 20 U/L (15-37); Alanine Aminotransfer ALT/SGPT 18 U/L (13-56); Albumin, Serum 3.1 g/dL (3.2-5.0); Alkaline Phosphatase 121 U/L (45-117); Anion Gap 5 (5-15); BUN 9 mg/dL (7-18); Calcium,Total 8.3 mg/dL (8.5-10.1); Chloride 108 mmol/L (98-107); Creatinine, Serum 0.75 mg/dL (0.55-1.02); EST Glomerular Filtration Rate 80 mL/min (>60); Est Glom Filt Rate - Afr Amer 97 mL/min (>60); Estimated Creatinine Clearance 37.24 ml/min; Globulin 3.8 g/dL (2.2-4.2); Glucose 100 mg/dL (74-106); Potassium 3.8 mmol/L (3.5-5.1); Protein, Total 6.9 g/dL (6.4-8.2); Sodium Level 142 mmol/L (136-145)
[2022-01-27] MEDS: 0.9% Normal Saline 1,000 ML 999 ML IV (18:41)
[2022-01-27 19:25] VITALS: BP 126/52; PULSE 60; RESP 20
[2022-01-27 19:27] LABS: Red Blood Cells-Urine 0 SEEN /hpf (0-5); Squamous Epithelial Cells - UA 0 SEEN /hpf (5-10)
[2022-01-27 19:28] LABS: Color, Urine Yellow (Yellow); Glucose, Dipstick Normal (Normal); Ketone-Dipstick Negative (Negative); Leukocyte Esterase-Dipstick 25 /ul (Negative); Nitrite-Dipstick Negative (Negative); Occult Blood-Urine 10 /ul (Negative); Protein-Dipstick 15 mg/dl (Negative); Specific Gravity, Urine 1.025 (1.002-1.030); Urine Bilirubin Dipstick Negative (Negative); Urine Clarity Clear (Clear); Urine Urobilinogen Normal (Normal)
[2022-01-27 19:33] LABS: Bacteria RARE /hpf (None Seen); Mucous, Urine RARE /hpf (<or=2+); White Blood Cells 0-5 SEEN /hpf (0-5)
[2022-01-27 19:50] VITALS: BP 151/74; PULSE 73; RESP 16; O2SAT 99
== END 2022-01-27 19:52 | disposition home or self-care (01) ==
PROVIDERS: Emergency Provider Emergency Medicine; PCP Internal Medicine; Visit Provider Emergency Medicine
DX: R53.1 Weakness (principal); J44.9 Chronic obstructive pulmonary disease, unspecified; R11.2 Nausea with vomiting, unspecified; E78.5 Hyperlipidemia, unspecified; R35.0 Frequency of micturition; I10 Essential (primary) hypertension; I25.10 Atherosclerotic heart disease of native coronary artery without angina pectoris; F17.210 Nicotine dependence, cigarettes, uncomplicated; Z20.822 Contact with and (suspected) exposure to COVID-19
CPT/HCPCS: 71045; 80053; 81001; 85025; 87086; 87088; 87428; 93005; 99284

== ENCOUNTER 2022-02-28 13:10 | Emergency (ER) | payer MEDICARE, SELFPAY ==
[2017-12-28 13:50] VITALS: BMI 29.2
[2022-02-28 13:15] VITALS: BP 130/75; PULSE 81; RESP 18; TEMP 37.3; O2SAT 97; BMI 26.4
[2022-02-28 14:07] LABS: Absolute Neutrophil Count 3.9 X10^3/uL (2.0-7.7); Basophil# 0.03 X10^3/uL; Basophil% 0.5 % (0-1); Eosinophil# 0.11 X10^3/uL; Eosinophils% 1.8 % (0-5); Hematocrit 34.3 % (37-47); Hemoglobin 10.1 g/dL (12.0-15.0); Lymphocyte % 26.7 % (19-41); Mean Corp Hgb Conc 29.4 g/dL (32-36); Mean Corpuscular Hgb 26.5 pg (27.0-32.0); Mean Platelet Vol. 10.1 fl (6.2-12.0); Monocyte# 0.31 X10^3/uL; Monocyte% 5.2 % (0-10); NRBC Flagged by Analyzer 0 % (0-5); Neutrophil # 3.91 X10^3/uL (2.7-7.7); Neutrophil % 65.3 % (47-70); Platelet Count 267 K/mm3 (150-450); RBC Distribution Width CV 16.1 % (11.6-14.6); RBC Distribution Width SD 52.9 fl (35.1-43.9); Red Blood Count 3.81 M/mm3 (4.2-5.4)
--- NOTE | 2022-02-28 14:13 | EX.ED.DYSGE1 ---
HPI History of Present Illness Chief Complaint: Weakness Narrative Narrative: 76-year-old female presenting with difficulty walking. She states that when she stands up on lightheaded, but I am not. She states I have a headache, but I do not. Patient states that she does have difficulty ambulating. She states she does use a walker at home. 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 He does see Dr. Washburn she does have previous history of GI bleed as well. She is on Eliquis. She denies history of black or bloody stools. She denies any abdominal pain, urinary complaints. She states she is eating and drinking normally. She does not have chest pain or shortness of breath. Denies fever, chills, sweats. She states she lives at home alone, but does not feel unsafe. She did call her primary care physician who sent her to the emergency room. [facility] Medical History Anxiety and depression Atherosclerosis of coronary artery bypass graft without angina pectoris Atherosclerosis of coronary artery of [place] heart with angina pectoris Back pain Benzodiazepine dependence CAD (coronary artery disease) Carotid artery stenosis Community acquired pneumonia COPD (chronic obstructive pulmonary disease) COPD (chronic obstructive pulmonary disease) CVA (cerebral vascular accident) DDD (degenerative disc disease), lumbar Depression with anxiety Diastolic dysfunction Elevated troponin Essential (primary) hypertension Guaiac positive stools H/O: pneumonia Hemorrhoids, external History of rectal cancer History of thyroid cancer Hyperlipidemia Hypothyroidism Nicotine dependence Non-rheumatic mitral regurgitation Non-rheumatic tricuspid valve insufficiency Non-ST elevation (NSTEMI) myocardial infarction Obstructive sleep apnea Rectal cancer Secondary pulmonary arterial hypertension TIA (transient ischemic attack) TIA (transient ischemic attack) Home Medications levothyroxine 75 mcg tablet 75 mcg PO QODAY thyroid 09/06/17 [History Last Taken 10/07/21] citalopram 40 mg tablet 40 mg PO DAILY depression 12/18/17 [History Last Taken 10/08/21] lisinopril 40 mg tablet 40 mg PO DAILY blood pressure 12/18/17 [History Last Taken 10/08/21] atenolol 50 mg tablet 50 mg PO DAILY heart rate 01/05/18 [History Last Taken 10/08/21] atorvastatin 40 mg tablet 40 mg PO DAILY cholesterol 01/05/18 [History Last Taken 10/07/21] lorazepam 1 mg tablet 1 mg PO 4X/DAY anxiety 06/28/18 [History Last Taken 10/08/21] albuterol sulfate 0.63 mg/3 mL solution for nebulization 0.63 mg inhalation Q4H PRN Congestion 07/14/18 [History Last Taken 1 Week Ago ~10/01/21] bupropion HCl 100 mg tablet 100 mg PO DAILY mood 01/16/19 [History Last Taken 10/08/21] pantoprazole 40 mg tablet,delayed release 40 mg PO BID gerd 01/16/19 [History Last Taken 10/08/21] metoclopramide HCl 5 mg tablet (Reglan) 5 mg PO DAILY PRN nausea and vomiting #10 tabs 06/04/21 [Rx Last Taken Unknown] gabapentin 100 mg capsule 200 mg PO 4X/DAY pain 10/08/21 [History Last Taken 10/07/21] hydrocodone-acetaminophen 5-325mg 5mg-325mg 1 tab PO Q4H PRN PRN arm pain 10/08/21 [History Last Taken 10/07/21] oxybutynin chloride 5 mg tablet,extended release 24 hr 5 mg PO DAILY bladder 10/08/21 [History Last Taken 10/08/21] trazodone 100 mg tablet 100 mg PO QHS sleep 10/08/21 [History Last Taken 10/07/21] clopidogrel 75 mg tablet 75 mg PO DAILY #30 tabs 10/21/21 [Rx Last Taken Unknown] apixaban 5 mg (74 tabs) tablets in a dose pack (Eliquis DVT-PE Treat 30D Start) 5 mg PO BID #74 tabs 11/15/21 [Rx Last Taken Unknown] MAGIC MOUTH WASH (BMX) 180 mL suspension 10 ml PO Q6H PRN pain #180 mL 11/21/21 [Rx Last Taken Unknown] hydrocortisone 2.5 % topical cream with perineal applicator (Anusol-HC) 1 applic [place] DAILY PRN pain #30 grams 11/21/21 [Rx Last Taken Unknown] meclizine 25 mg tablet 25 mg PO DAILY PRN dizziness #30 tabs 02/28/22 [Rx Last Taken Unknown] Allergy/AdvReac Type Severity Reaction Status Date / Time morphine Allergy PT UNSURE Verified 02/28/22 13:17 Penicillins Allergy Hives Verified 02/28/22 13:17 tramadol HCl [From Ultram] Allergy PT UNSURE Verified 02/28/22 13:17 bupropion [From Wellbutrin] AdvReac hallucinati Verified 02/28/22 13:17 ons Family History Father Heart disease of heart attack at age 64 Mother Cancer of cancer at age 72 CVA (cerebral vascular accident) Surgical History History of appendectomy History of coronary artery bypass graft x 3 (~2007) History of coronary artery stent placement (10/10/21) History of left heart catheterization (10/10/21) Hx of cholecystectomy Hx of thyroidectomy Presence of stent in coronary artery (~10/10/21) Social History household members: significant other Smoking Status: Current every day smoker tobacco type: cigarettes details: Patient denies alcohol use substance use type: does not use ROS ROS ED Review of Systems ROS Unobtainable: Denies due to encephalopathy Constitutional Constitutional ED: Denies chills or fever(s) ENT ENT ED: Denies rhinorrhea or sore throat Cardiovascular Cardiovascular: Denies chest pain or palpitations Respiratory/Chest Respiratory/Chest: Denies cough or dyspnea Gastrointestinal Gastrointestinal: Denies abdominal pain Genitourinary Genitourinary ED: Denies dysuria or hematuria Musculoskeletal Musculoskeletal: Denies arthralgias or back pain Integumentary Denies abscess Neurologic Neurologic: Reports headache(s) Psychiatric Psychiatric: Denies anxiety or depression EXAM Physical Exam Const Vital Signs: 02/28/22 13:15 02/28/22 13:17 Temperature 99.1 F Temperature Source Oral Pulse Rate 81 Respiratory Rate 18 Respiratory Effort Normal Non-Labored Blood Pressure 130/75 H Blood Pressure Mean 93 Pulse Ox 97 Oxygen Delivery Method Room Air Positive well nourished General Appearance ED: NAD; Negative for pallor HEENT Reports moist mucous membranes HEENT Narrative: Negative Krys-Hallpike Eyes PERRL and EOMs intact bilaterally General Eye ED: Negative for pale conjunctiva or scleral icterus Neck no lymphadenopathy Resp normal respiratory effort and clear to auscultation bilaterally Auscultation: Negative for rales, rhonchi or wheezes Cardio regular rate and regular rhythm GI normal to inspection, nondistended, normoactive bowel sounds Neuro oriented x3 and CN's II-XII intact bilaterally Sensorium / Orientation: alert Psych mental status grossly normal Skin no wounds General Skin Exam: Negative for jaundice or pallor MDM MDM MDM Narrative Medical decision making narrative: Patient presenting chief complaint of feeling dizzy but not, and feeling lightheaded but not. Negative Krys-Hallpike on exam. Patient still speculates this whether she has vertigo but cannot distinguish between vertiginous dizziness and lightheadedness. Patient was given meclizine because she has a history of this. Vital signs stable she is afebrile. I was going to check orthostatics over the patient was able to ambulate to the bathroom and unstable gait did not and was asymptomatic. CBC was obtained to assess for elevated blood cell count or anemia as patient has history of GI bleeding UTIs. I also 6.0, hemoglobin stable at 10.1. Patient is answering child tries normal. LFTs are normal. Urinalysis negative for infection. Patient subjectively improved with meclizine. I will write her prescription for this for home. Patient discharged in stable condition. Impression: 1. Dizziness Lab Data Attestation: I reviewed the patient's lab results. Labs: Laboratory Results - last 24 hr 02/28/22 02/28/22 02/28/22 13:28 13:28 14:31 WBC 6.0 RBC 3.81 L Hgb 10.1 L Hct 34.3 L MCV 90.0 MCH 26.5 L MCHC 29.4 L RDW Std Deviation 52.9 H RDW Coeff of John 16.1 H Plt Count 267 MPV 10.1 Immature Gran % (Auto) 0.500 Neut % (Auto) 65.3 Lymph % (Auto) 26.7 [place] % (Auto) 5.2 Eos % (Auto) 1.8 Baso % (Auto) 0.5 Absolute Neuts (auto) 3.9 Absolute Lymphs (auto) 1.60 Nucleated RBC % 0 Sodium 140 Potassium 3.8 Chloride 105 Carbon Dioxide 27.0 Anion Gap 8 BUN 10 Creatinine 0.79 Estim Creat Clear Calc 37.24 Est GFR (MDRD) Af Amer 91 Est GFR (MDRD) Non-Af 76 BUN/Creatinine Ratio 12.7 Glucose 175 H Calcium 8.2 L Total Bilirubin 0.40 AST 14 L ALT 15 Alkaline Phosphatase 114 Total Protein 6.6 Albumin 2.7 L Globulin 3.9 Albumin/Globulin Ratio 0.7 L Urine Color Yellow Urine Clarity Sl. Cloudy Urine pH 6.5 Ur Specific [place] 1.020 Urine Protein 15 H Urine Glucose (UA) Normal Urine Ketones Negative Urine Occult Blood 10 H Urine Nitrite Negative Urine Bilirubin Negative Urine Urobilinogen Normal Ur Leukocyte Esterase 100 H Urine RBC 0-5 SEEN Urine WBC 10-25 SEEN Ur Squamous Epith Cells 0-5 SEEN Urine Bacteria 1+ Urine Mucus 0 SEEN Discharge Plan Triage Chief Complaint: Weakness ED Provider: Ryley Arora Dx/Rx/DC Orders Instructions: ED Dizziness, Uncertain Cause Prescriptions: New meclizine 25 mg tablet 25 mg PO DAILY PRN (Reason: dizziness) Qty: 30 0RF No Action albuterol sulfate 0.63 mg/3 mL solution for nebulization 0.63 mg INHALATION Q4H PRN (Reason: Congestion) levothyroxine 75 MCG tablet 75 mcg PO QODAY citalopram 40 mg tablet 40 mg PO DAILY Rx Instructions: 40 mg PO 1 in am lisinopril 40 mg tablet 40 mg PO DAILY atenolol 50 MG tablet 50 mg PO DAILY atorvastatin 40 MG tablet 40 mg PO DAILY lorazepam 1 MG tablet 1 mg PO 4X/DAY Rx Instructions: takes at 0800, 1200, 1600, 2000 bupropion HCl 100 MG tablet 100 mg PO DAILY pantoprazole 40 MG tablet 40 mg PO BID metoclopramide HCl [Reglan] 5 mg tablet 5 mg PO DAILY PRN (Reason: nausea and vomiting) Qty: 10 0RF hydrocodone-acetaminophen 5-325 mg tablet 1 tab PO Q4H PRN PRN (Reason: arm pain) gabapentin 100 mg capsule 200 mg PO 4X/DAY Label Comments: Take 2 capsules by mouth three times daily for 180 days. trazodone 100 mg tablet 100 mg PO QHS Label Comments: TAKE 1 TABLET BY MOUTH EVERY DAY AT BEDTIME oxybutynin chloride 5 mg tablet extended release 24hr 5 mg PO DAILY Label Comments: Take 1 tablet by mouth once daily. clopidogrel 75 mg Tablet 75 mg PO DAILY Qty: 30 0RF Eliquis DVT-PE Treat 30D Start 5 mg (74 tabs) tablets,dose pack 5 mg PO BID Qty: 74 0RF Rx Instructions: as directed hydrocortisone [Anusol-HC] 2.5 % cream with perineal applicator 1 applic [place] DAILY PRN (Reason: pain) Qty: 30 0RF MAGIC MOUTH WASH (BMX) 180 mL suspension 10 ml PO Q6H PRN (Reason: pain) Qty: 180 0RF Rx Instructions: diphenhydramine 12.5 mg/5 mL oral liquid 60 mL; aluminum-mag hydroxide-simethicone 400 mg-400 mg-40 mg/5 mL oral susp 60 mL; Lidocaine Viscous 2 % mucosal solution 60 mL; Per 180 mL Primary Care Provider: Zully Rojas Referrals: Zully Rojas MD [Primary Care Provider] - Disposition Disposition: Home, Self Care
[2022-02-28 14:19] LABS: ALB/GLOB Ratio 0.7 RATIO (0.9-2.4); AST(SGOT) 14 U/L (15-37); Alanine Aminotransfer ALT/SGPT 15 U/L (13-56); Albumin, Serum 2.7 g/dL (3.2-5.0); Alkaline Phosphatase 114 U/L (45-117); Anion Gap 8 (5-15); BUN 10 mg/dL (7-18); BUN/Creat Ratio 12.7 RATIO (10-20); Calcium,Total 8.2 mg/dL (8.5-10.1); Chloride 105 mmol/L (98-107); Creatinine, Serum 0.79 mg/dL (0.55-1.02); EST Glomerular Filtration Rate 76 mL/min (>60); Est Glom Filt Rate - Afr Amer 91 mL/min (>60); Estimated Creatinine Clearance 37.24 ml/min; Globulin 3.9 g/dL (2.2-4.2); Glucose 175 mg/dL (74-106); Potassium 3.8 mmol/L (3.5-5.1); Protein, Total 6.6 g/dL (6.4-8.2); Sodium Level 140 mmol/L (136-145)
[2022-02-28 14:36] LABS: Mucous, Urine 0 SEEN /hpf (<or=2+)
[2022-02-28] MEDS: Meclizine HCl 25 MG Tablet PO (14:37)
[2022-02-28 14:47] LABS: Color, Urine Yellow (Yellow); Glucose, Dipstick Normal (Normal); Ketone-Dipstick Negative (Negative); Leukocyte Esterase-Dipstick 100 /ul (Negative); Nitrite-Dipstick Negative (Negative); Occult Blood-Urine 10 /ul (Negative); Protein-Dipstick 15 mg/dl (Negative); Urine Bilirubin Dipstick Negative (Negative); Urine Clarity Sl. Cloudy (Clear); Urine Urobilinogen Normal (Normal); Urine pH 6.5 (5.0 - 8.0)
[2022-02-28 15:02] LABS: Red Blood Cells-Urine 0-5 SEEN /hpf (0-5)
[2022-02-28 15:03] LABS: Bacteria 1+ /hpf (None Seen); Squamous Epithelial Cells - UA 0-5 SEEN /hpf (5-10); White Blood Cells 10-25 SEEN /hpf (0-5)
[2022-02-28 15:14] VITALS: BP 147/71; PULSE 68; RESP 16; O2SAT 98
== END 2022-02-28 15:22 | disposition home or self-care (01) ==
PROVIDERS: Emergency Provider Student in an Organized Health Care Education/Training Program; PCP Internal Medicine; Visit Provider Student in an Organized Health Care Education/Training Program
DX: R42 Dizziness and giddiness (principal); R53.1 Weakness; I25.10 Atherosclerotic heart disease of native coronary artery without angina pectoris; I25.2 Old myocardial infarction; M51.36 Other intervertebral disc degeneration, lumbar region; F17.210 Nicotine dependence, cigarettes, uncomplicated; Z86.73 Personal history of transient ischemic attack (TIA), and cerebral infarction without residual deficits; Z95.1 Presence of aortocoronary bypass graft; Z95.5 Presence of coronary angioplasty implant and graft
CPT/HCPCS: 80053; 81001; 85025; 99285; A4216

== ENCOUNTER 2022-04-10 10:34 | Inpatient (IN) | payer MEDICARE, SELFPAY ==
[2017-12-28 13:50] VITALS: BMI 29.2
[2022-04-10] VITALS (7 sets, daily range): BP systolic 148–201; BP diastolic 61–83; PULSE 70–90; RESP 14–18; TEMP 36.1–36.7; O2SAT 94–95; BMI 27.8; BMI 25.0
--- NOTE | 2022-04-10 11:21 | EDS_ITS ---
HPI HPI - Fall History of Present Illness Chief Complaint: Fall Informant: patient Occured/Mechanism Occurred: Days (2) Mechanism/Context: Yes same level fall Usually ambulates: Cane Pain/Injury Location: LLE Pain Location: back Narrative Narrative: Patient states she was bending over to pick something up and lost her balance while she was bent over, falling over, landing on her buttocks very hard, with her left lower extremity bent beneath her. Since then, 2 days ago, she has not been able to stand or walk because of pain throughout her left lower extremity including but not exclusive to the left hip. She has chronic low back pain that she feels like is worse due to this injury. She states she has been getting help from her children for the past 2 days because she has not been able to do anything, and finally decided to come to the ED today. She denies hitting her head or any headaches, vomiting. [facility] Medical History (Updated 04/10/22 @ 18:[address] Gurmeet Carrillo MD) Anemia Anxiety and depression Atherosclerosis of coronary artery bypass graft without angina pectoris Atherosclerosis of coronary artery of [place] heart with angina pectoris Back pain Benzodiazepine dependence CAD (coronary artery disease) Carotid artery stenosis Community acquired pneumonia COPD (chronic obstructive pulmonary disease) COPD (chronic obstructive pulmonary disease) CVA (cerebral vascular accident) DDD (degenerative disc disease), lumbar Depression with anxiety Diastolic dysfunction Elevated troponin Essential (primary) hypertension Guaiac positive stools H/O: pneumonia Hemorrhoids, external History of rectal cancer History of thyroid cancer Hyperlipidemia Hypothyroidism Nicotine dependence Non-rheumatic mitral regurgitation Non-rheumatic tricuspid valve insufficiency Non-ST elevation (NSTEMI) myocardial infarction Obstructive sleep apnea Rectal cancer Secondary pulmonary arterial hypertension TIA (transient ischemic attack) TIA (transient ischemic attack) Home Medications levothyroxine 75 mcg tablet 75 mcg PO QODAY thyroid 09/06/17 [History Last Taken 04/09/22] citalopram 40 mg tablet 40 mg PO DAILY depression 12/18/17 [History Last Taken 04/09/22] atenolol 50 mg tablet 50 mg PO DAILY heart rate 01/05/18 [History Last Taken 04/09/22] atorvastatin 40 mg tablet 40 mg PO DAILY cholesterol 01/05/18 [History Last Taken 04/09/22] lorazepam 1 mg tablet 1 mg PO 4X/DAY anxiety 06/28/18 [History Last Taken 04/09/22] albuterol sulfate 0.63 mg/3 mL solution for nebulization 0.63 mg inhalation Q4H PRN Congestion 07/14/18 [History Last Taken 1 Week Ago ~10/01/21] bupropion HCl 100 mg tablet 100 mg PO DAILY mood 01/16/19 [History Last Taken 04/09/22] pantoprazole 40 mg tablet,delayed release 40 mg PO BID gerd 01/16/19 [History Last Taken 04/09/22] metoclopramide HCl 5 mg tablet (Reglan) 5 mg PO DAILY PRN nausea and vomiting #10 tabs 06/04/21 [Rx Last Taken Unknown] gabapentin 100 mg capsule 200 mg PO 4X/DAY pain 10/08/21 [History Last Taken 04/09/22] oxybutynin chloride 5 mg tablet,extended release 24 hr 5 mg PO DAILY bladder 10/08/21 [History Last Taken 04/09/22] trazodone 100 mg tablet 100 mg PO QHS sleep 10/08/21 [History Last Taken 04/09/22] clopidogrel 75 mg tablet 75 mg PO DAILY #30 tabs 10/21/21 [Rx Last Taken 04/09/22] meclizine 25 mg tablet 25 mg PO DAILY PRN dizziness #30 tabs 02/28/22 [Rx Last Taken 04/09/22] lisinopril 20 mg tablet 20 mg PO DAILY BP 04/10/22 [History Last Taken 04/09/22] Allergy/AdvReac Type Severity Reaction Status Date / Time morphine Allergy PT UNSURE Verified 02/28/22 13:17 Penicillins Allergy Hives Verified 02/28/22 13:17 tramadol HCl [From Ultram] Allergy PT UNSURE Verified 02/28/22 13:17 bupropion [From Wellbutrin] AdvReac hallucinati Verified 02/28/22 13:17 ons Family History Father Heart disease of heart attack at age 64 Mother Cancer of cancer at age 72 CVA (cerebral vascular accident) Surgical History History of appendectomy History of coronary artery bypass graft x 3 (~2007) History of coronary artery stent placement (10/10/21) History of left heart catheterization (10/10/21) Hx of cholecystectomy Hx of thyroidectomy Presence of stent in coronary artery (~10/10/21) Social History household members: significant other Smoking Status: Current every day smoker tobacco type: cigarettes details: Patient denies alcohol use substance use type: does not use ROS ROS ED Constitutional Constitutional ED: Denies chills or fever(s) Eyes Eyes: Denies change in vision or diplopia ENT ENT ED: Denies ear pain, epistaxis, facial pain or rhinorrhea Cardiovascular Cardiovascular: Denies chest pain or palpitations Respiratory/Chest Respiratory/Chest: Denies cough or dyspnea Gastrointestinal Gastrointestinal: Denies abdominal pain, diarrhea, melena, nausea or vomiting Genitourinary Genitourinary ED: Denies dysuria or hematuria Musculoskeletal Musculoskeletal: Reports back pain and extremity pain; Denies neck pain Integumentary Denies abscess, Abrasions, laceration or rash Neurologic Neurologic: Denies confusion, headache(s), paresthesias or weakness EXAM Physical Exam Const Vital Signs: 04/10/22 10:35 04/10/22 10:58 04/10/22 14:49 Temperature 97.2 F L Temperature Source Temporal Pulse Rate 70 72 Respiratory Rate 14 16 Blood Pressure 153/83 H 201/67 H 172/68 H Blood Pressure Mean 106 111 102 Pulse Ox 94 94 Oxygen Delivery Method Room Air Room Air 04/10/22 18:18 Temperature Temperature Source Pulse Rate 74 Respiratory Rate 16 Blood Pressure 169/61 H Blood Pressure Mean 97 Pulse Ox 94 Oxygen Delivery Method Room Air Positive well nourished and well developed General Appearance ED: well developed and NAD HEENT Reports nasal mucous membranes and turbinates normal atraumatic Face and Sinus: Negative for facial tenderness Eyes PERRL and EOMs intact bilaterally Visual Acuity: other Other Details: no entrapment or pain with extraocular movements Neck full ROM and supple General: Negative for tenderness Chest Wall inspection of chest normal and palpation of chest normal Chest: symmetrical chest wall rise; Negative for crepitus or tenderness Resp normal respiratory effort and clear to auscultation bilaterally Percussion: other equal BS bilat Cardio no murmurs Rate: regular rate Rhythm: regular rhythm GI normal to inspection, nondistended, normoactive bowel sounds, soft to palpation and non-tender Back/Spine Back/Spine Narrative: Minor tenderness in the distal lumbar spine midline without step-off, but the majority of the tenderness is distal to this in the sacrum and the left pelvic brim. No crepitance or obvious signs of trauma there. Also tender throughout the ischial tuberosity on the left. Cervical Spine: Negative for cervical spine tenderness Thoracic Spine / Upper Back: Negative for thoracic spinal tenderness Lumbar Spine / Lower Back: lumbar spinal tenderness Extremity normal to inspection Extremity Narrative: Limited range of motion throughout all joints of the left lower extremity although we do see the patient bend her left knee about 30 degrees on her own, she complains of pain at every bony prominence with palpation throughout the left lower extremity, and complains of pain at every portion of the left lower extremity with gentle movement of even part of it. There is no deformity or shortening. She is holding the left lower extremity neutral, similar to the right. She is neurovascular intact distally, difficult to feel pulses but brisk cap refill all toes which are cold bilaterally. All compartments of both lower extremities are soft and nondistended. The pelvis is stable to be compression and without pain or tenderness at the ASIS bilaterally. General Extremety ED: Yes tenderness Neuro oriented x3, CN's II-XII intact bilaterally, moves all extremities, no focal motor deficits and no sensory deficits noted Gavin Coma Scale: document GCS findings Spontaneous Obeys Commands Oriented 15 Sensorium / Orientation: awake and alert Psych mental status grossly normal and thought process normal Skin no wounds Lesions: no lesions Rashes: no rashes MDM MDM MDM Narrative Medical decision making narrative: In addition to some basic labs and a CPK, which were unremarkable except for chronic anemia, the following x-ray series were obtained and interpreted by myself: Pelvis 1 view, negative for fracture Femur 4 view, negative for fracture Left foot 3 views, negative for fracture Left tib-fib 2 views, negative for fracture LS spine 3 views, negative for fracture I reviewed the radiology interpretations of all of these. Patient was given fentanyl and prophylactic Zofran, she felt much better and was able to roll over in bed. I had nursing attempt to get her out of bed on her feet and ambulate. She is unable. She can move the joint of her left lower extremity now, however with attempting to bear weight on her left lower extremity at the side of the bed, she can barely put any weight on it before she is in terrible pain, indicating her left hip/groin as well as, which actually may be worse in severity, her medial left knee and lower leg, all of which showed no fractures on x-ray. She states that she was crawling around to get from place to place at home. She is at high risk of fall, currently there were no family members at home to help her, and I think she should be admitted. Discussed w/ Dr. Purdy. 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 Discussed with Dr. Denise, he agrees with admitting and he will consult on the patient. I suspect this is what is causing most of the patient's pain, significant degree of which is chronic, but now since she cannot bear weight on it safely, this is the reason for admission. Lab Data Attestation: I reviewed the patient's lab results. Labs: Laboratory Results - last 24 hr 04/10/22 04/10/22 11:23 11:23 WBC 7.9 RBC 4.10 L Hgb 10.6 L Hct 34.8 L MCV 84.9 MCH 25.9 L MCHC 30.5 L RDW Std Deviation 47.0 H RDW Coeff of John 15.3 H Plt Count 254 MPV 9.3 Immature Gran % (Auto) 0.500 Neut % (Auto) 80.2 H Lymph % (Auto) 12.5 L [place] % (Auto) 4.7 Eos % (Auto) 1.7 Baso % (Auto) 0.4 Absolute Neuts (auto) 6.3 Absolute Lymphs (auto) 0.98 Nucleated RBC % 0 Sodium 143 Potassium 4.6 Chloride 110 H Carbon Dioxide 32.0 Anion Gap 1 L BUN 8 Creatinine 0.75 Estim Creat Clear Calc 37.24 Est GFR (MDRD) Af Amer 97 Est GFR (MDRD) Non-Af 80 BUN/Creatinine Ratio 10.6 Glucose 111 H Calcium 8.6 Total Creatine Kinase 45 Radiography Diagnostic Testing: Clinical Impression(s) from Imaging Studies Femur X-Ray 04/10/22 11:40 IMPRESSION: Normal x-ray examination of the femur. Electronically Signed: Gonzales Dowell MD at 12:16 EST , Foot X-Ray 04/10/22 11:40 IMPRESSION: Degenerative changes of the great toe. Mild soft tissue swelling. Electronically Signed: Gonzales Dowell MD at 12:17 EST , Lumbar Spine X-Ray 04/10/22 11:40 IMPRESSION: Degenerative changes of the spine, as detailed above. Large amount of fecal material is seen in the colon. Electronically Signed: Gonzales Dowell MD at 12:23 EST Reading Location ID and State: [facility] / [place] , Service support , Pelvis X-Ray 04/10/22 11:40 IMPRESSION: Degenerative changes. No fracture is seen. 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 Electronically Signed: Gonzales Dowell MD at 12:19 EST , Tibia/Fibula X-Ray 04/10/22 11:40 IMPRESSION: Normal x-ray examination of the tibia and fibula. Electronically Signed: Gonzales Dowell MD at 12:24 EST , Lower Extremity CT 04/10/22 15:30 IMPRESSION: Deformity of the left femoral head with subchondral cystic change suggestive of avascular necrosis. Subchondral geodes are also seen in the superior lateral aspect of the acetabulum with mild degree of joint space narrowing. Electronically Signed: Gonzales Dowell MD at 15:47 EST , Discharge Plan Dx/Rx/DC Orders Clinical Impression: Avascular necrosis of femur head, left, Unable to bear weight on left lower extremity, Declining functional status Disposition Disposition: Acute Care Hospital [facility]
[2022-04-10] MEDS: Ondansetron 4 MG/2 ML Vial IV (11:29)
[2022-04-10] MEDS: fentaNYL 100 MCG/2 ML Ampul 50 MCG IV (11:29)
[2022-04-10 11:31] LABS: Absolute Lymphocyte Count 0.98 X10^3/uL (0.83-4.51); Absolute Neutrophil Count 6.3 X10^3/uL (2.0-7.7); Basophil# 0.03 X10^3/uL; Basophil% 0.4 % (0-1); Eosinophil# 0.13 X10^3/uL; Eosinophils% 1.7 % (0-5); Hematocrit 34.8 % (37-47); Hemoglobin 10.6 g/dL (12.0-15.0); Lymphocyte # 0.98 X10^3/ul (0.83-4.51); Lymphocyte % 12.5 % (19-41); Mean Corp Hgb Conc 30.5 g/dL (32-36); Mean Corpuscular Hgb 25.9 pg (27.0-32.0); Mean Corpuscular Volume 84.9 fL (81-99); Mean Platelet Vol. 9.3 fl (6.2-12.0); Monocyte# 0.37 X10^3/uL; Monocyte% 4.7 % (0-10); NRBC Flagged by Analyzer 0 % (0-5); Neutrophil % 80.2 % (47-70); Platelet Count 254 K/mm3 (150-450); RBC Distribution Width CV 15.3 % (11.6-14.6); White Blood Count 7.9 K/mm3 (4.4-11.0)
--- NOTE | 2022-04-10 11:40 | RAD_ITS ---
STUDY: X-RAY - PELVIS REASON FOR EXAM: Female, 76 years old. Fall/pain left hip, back TECHNIQUE: One view of the pelvis was obtained. COMPARISON: None. FINDINGS: There is a non-specific bowel gas pattern. Normal visualized soft tissue structures. There is narrowing with cortical sclerosis and osteophyte formation of the sacroiliac joint consistent with degenerative osteoarthritic changes. Normal visualized bilateral superior and inferior pubic rami. There are degenerative changes of the pubic symphysis with articular narrowing and sclerosis. Normal ischial tuberosities. Normal visualized right femoral head. There is osteoarthritic spur formation of the right acetabular rim. There is mild articular joint space narrowing of the right hip. Irregularity of the left femoral head. Avascular necrosis should be ruled out. There is osteoarthritic spur formation of the left acetabular rim. There is moderate articular joint space narrowing of the left hip. RAD/Pelvis 1 or 2 Views IMPRESSION: Degenerative changes. No fracture is seen. 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 Electronically Signed: Gonzales Dowell MD at 12:19 EST ,
--- NOTE | 2022-04-10 11:40 | RAD_ITS ---
STUDY: X-RAY - LEFT FOOT CLINICAL: Female, 76 years old. Pain/injury TECHNIQUE: 3 view(s) of the foot. COMPARISON: Comparison is made with prior study dated July 16, 2009. FINDINGS: Normal talus, calcaneus, and tarsal bones. Normal visualized subtalar, talonavicular, calcaneocuboid, tarsal and tarsometatarsal articulations. There is demineralization of the metatarsi. There is degenerative arthrosis of the metatarsophalangeal joint of the hallux . Normal tibial and fibular sesamoid bones. There is degenerative arthrosis of the interphalangeal joint of the great toe. Normal phalanges of the great toe. Normal second through fifth metatarsophalangeal joints. Normal interphalangeal joints and phalanges of the lesser toes. Mild soft tissue swelling. RAD/Foot min 3 Views IMPRESSION: Degenerative changes of the great toe. Mild soft tissue swelling. Electronically Signed: Gonzales Dowell MD at 12:17 EST ,
--- NOTE | 2022-04-10 11:40 | RAD_ITS ---
STUDY: X-RAY - LEFT TIBIA AND FIBULA REASON FOR EXAM: Female, 76 years old. Pain/injury TECHNIQUE: 2 view(s) of the tibia and fibula were obtained. COMPARISON: None. FINDINGS: Normal visualized tibia. Normal visualized fibula. The soft tissue structures are unremarkable. RAD/Tibia & Fibula 2 Views IMPRESSION: Normal x-ray examination of the tibia and fibula. Electronically Signed: Gonzales Dowell MD at 12:24 EST ,
--- NOTE | 2022-04-10 11:40 | RAD_ITS ---
STUDY: X-RAY - LEFT FEMUR REASON FOR STUDY: Female, 76 years old. Pain/injury TECHNIQUE: 4 view(s) of the femur. COMPARISON: None. FINDINGS: Normal visualized femur. Normal visualized soft tissue structure. RAD/Femur Min 2 Views IMPRESSION: Normal x-ray examination of the femur. Electronically Signed: Gonzales Dowell MD at 12:16 EST ,
--- NOTE | 2022-04-10 11:40 | RAD_ITS ---
STUDY: X-RAY - LUMBAR SPINE REASON FOR EXAM: Female, 76 years old. Pain/fall TECHNIQUE: 2 view(s) of the lumbar spine were obtained. COMPARISON: None FINDINGS: Normal lumbar lordosis. There is no substantial scoliosis. There is a normal alignment of the vertebrae. There is generalized demineralization of the vertebral bodies. There is multi-level degenerative disc disease with multi-level disc space narrowing. Facet joint osteoarthritis. Large amount of fecal material seen in the colon. RAD/Lumbar Spine 2 or 3 Views IMPRESSION: Degenerative changes of the spine, as detailed above. Large amount of fecal material is seen in the colon. Electronically Signed: Gonzales Dowell MD at 12:23 EST ,
[2022-04-10 11:48] LABS: Anion Gap 1 (5-15); BUN 8 mg/dL (7-18); BUN/Creat Ratio 10.6 RATIO (10-20); CPK Total, Creatine Kinase 45 U/L (26-192); Calcium,Total 8.6 mg/dL (8.5-10.1); Chloride 110 mmol/L (98-107); Creatinine, Serum 0.75 mg/dL (0.55-1.02); EST Glomerular Filtration Rate 80 mL/min (>60); Est Glom Filt Rate - Afr Amer 97 mL/min (>60); Estimated Creatinine Clearance 37.24 ml/min; Glucose 111 mg/dL (74-106); Potassium 4.6 mmol/L (3.5-5.1); Sodium Level 143 mmol/L (136-145)
--- NOTE | 2022-04-10 15:17 | HP.PCM.HOS_ITS ---
[facility] - General General Date of Admission: 04/10/22 Date of Service: 04/10/22 Chief Complaint: Left leg pain/inability ambulate HPI Narrative MAURICE WALLACE, is a 76 F who presented after suffering a fall at home. 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 She reports that she fell on her buttocks and landed very hard with her left lower extremity bent underneath her. Since that point time she had increasing pain in her left lower extremity. She does admit she has chronic pain but reports that the fall made it worse. She has had difficulty standing or walking secondary to the pain and it sounds as if her predominant pain area is in her left groin and left lateral/posterior hip area. She reported that she was getting help from her children for the last 2 days but has had very significant difficulty doing anything for herself. She decided to come the emergency department today since she was not improving. She denies any other adjunctive symptoms. She did indicate she was being treated for rectal CA and has follow-up at [facility] for possible post neoadjuvant chemo surgical procedure. Patient reports she is still smoking but denies need for any nicotine replacement. Vital signs on presentation demonstrated a temperature of 97.2, heart rate 70, blood pressure 153/83, respiratory rate 14 and sats are 94% on room air. CBC shows a chronic stable anemia but was otherwise unremarkable. Her chemistry panel was unremarkable. CK was obtained and found to be 45. Extensive radiographs of the left lower extremity were performed and were all unremarkable other than pelvic x-ray which showed possible AVN of the left femoral head. CT of the lower extremity was obtained to further get investigate this finding and there was deformity of the left femoral head with subchondral cystic changes that were suggestive of avascular necrosis as well as subchondral geodes in the superior lateral aspect of the acetabulum with a mild degree of joint space narrowing. Given the fact that she was unable to ambulate having acute on chronic pain request for admission was made. The emergency department physician discussed the case with the on-call orth opedic surgeon, Dr. Denise and agreed he would see the patient in consult suspecting that her acute worsening pain was on chronic pain but since she was now unable to bear weight and be safe on this at home he would admit her and evaluate her here for surgical needs. [facility] Medical History Anemia Anxiety and depression Atherosclerosis of coronary artery bypass graft without angina pectoris Atherosclerosis of coronary artery of [place] heart with angina pectoris Back pain Benzodiazepine dependence CAD (coronary artery disease) Carotid artery stenosis Community acquired pneumonia COPD (chronic obstructive pulmonary disease) COPD (chronic obstructive pulmonary disease) CVA (cerebral vascular accident) DDD (degenerative disc disease), lumbar Depression with anxiety Diastolic dysfunction Elevated troponin Essential (primary) hypertension Guaiac positive stools H/O: pneumonia Hemorrhoids, external History of rectal cancer History of thyroid cancer Hyperlipidemia Hypothyroidism Nicotine dependence Non-rheumatic mitral regurgitation Non-rheumatic tricuspid valve insufficiency Non-ST elevation (NSTEMI) myocardial infarction Obstructive sleep apnea Rectal cancer Secondary pulmonary arterial hypertension TIA (transient ischemic attack) TIA (transient ischemic attack) Home Medications levothyroxine 75 mcg tablet 75 mcg PO QODAY thyroid 09/06/17 [History Last Taken 04/09/22] citalopram 40 mg tablet 40 mg PO DAILY depression 12/18/17 [History Last Taken 04/09/22] atenolol 50 mg tablet 50 mg PO DAILY heart rate 01/05/18 [History Last Taken 04/09/22] atorvastatin 40 mg tablet 40 mg PO DAILY cholesterol 01/05/18 [History Last Taken 04/09/22] lorazepam 1 mg tablet 1 mg PO 4X/DAY anxiety 06/28/18 [History Last Taken 04/09/22] albuterol sulfate 0.63 mg/3 mL solution for nebulization 0.63 mg inhalation Q4H PRN Congestion 07/14/18 [History Last Taken 1 Week Ago ~10/01/21] bupropion HCl 100 mg tablet 100 mg PO DAILY mood 01/16/19 [History Last Taken 04/09/22] pantoprazole 40 mg tablet,delayed release 40 mg PO BID gerd 01/16/19 [History Last Taken 04/09/22] metoclopramide HCl 5 mg tablet (Reglan) 5 mg PO DAILY PRN nausea and vomiting #10 tabs 06/04/21 [Rx Last Taken Unknown] gabapentin 100 mg capsule 200 mg PO 4X/DAY pain 10/08/21 [History Last Taken 04/09/22] oxybutynin chloride 5 mg tablet,extended release 24 hr 5 mg PO DAILY bladder 10/08/21 [History Last Taken 04/09/22] trazodone 100 mg tablet 100 mg PO QHS sleep 10/08/21 [History Last Taken 04/09/22] clopidogrel 75 mg tablet 75 mg PO DAILY #30 tabs 10/21/21 [Rx Last Taken 04/09/22] meclizine 25 mg tablet 25 mg PO DAILY PRN dizziness #30 tabs 02/28/22 [Rx Last Taken 04/09/22] lisinopril 20 mg tablet 20 mg PO DAILY BP 04/10/22 [History Last Taken 04/09/22] Allergy/AdvReac Type Severity Reaction Status Date / Time morphine Allergy PT UNSURE Verified 02/28/22 13:17 Penicillins Allergy Hives Verified 02/28/22 13:17 tramadol HCl [From Ultram] Allergy PT UNSURE Verified 02/28/22 13:17 bupropion [From Wellbutrin] AdvReac hallucinati Verified 02/28/22 13:17 ons Family History Father Heart disease of heart attack at age 64 Mother Cancer of cancer at age 72 CVA (cerebral vascular accident) Surgical History History of appendectomy History of coronary artery bypass graft x 3 (~2007) History of coronary artery stent placement (10/10/21) History of left heart catheterization (10/10/21) Hx of cholecystectomy Hx of thyroidectomy Presence of stent in coronary artery (~10/10/21) Social History (Updated 04/10/22 @ 20:[address] Natasha Purdy DO) household members: significant other housing: house Smoking Status: Current every day smoker tobacco type: cigarettes details: Patient denies alcohol use substance use type: does not use ROS Constitutional Constitutional: Denies anorexia, change in weight, chills, fatigue, fever(s), malaise, night sweats, weakness or other Eyes Eyes: Denies blurry vision, change in eye color, change in vision, discharge from eye(s), double vision, erythema, eye pain, loss of vision or other ENT HEENT: Denies abnormal hearing, dysphagia, ear pain, epistaxis, headache(s), hearing loss, nasal congestion, nasal discharge, post nasal drip, sinus pressure, sore throat or other Cardiovascular Cardiovascular: Denies chest pain, claudication, dyspnea on exertion, edema, li ghtheadedness, orthopnea, palpitations, paroxysmal nocturnal dyspnea, rapid heart rate, syncope or other Respiratory/Chest Respiratory/Chest: Reports cough; Denies dyspnea, excessive phlegm production, hemoptysis, productive cough, shortness of breath at rest, shortness of breath with exertion, wheezing or other Gastrointestinal Gastrointestinal: Denies abdominal pain, coffee ground emesis, constipation, diarrhea, dyspepsia, hematemesis, hematochezia, loose stools, melena, nausea, vomiting or other Genitourinary Genitourinary: Denies burning urination, difficulty urinating, dysuria, hematuria, nocturia, urinary frequency, urinary hesitancy, urinary incontinence, urinary urgency or other Musculoskeletal Musculoskeletal: Reports back pain, joint pain and joint stiffness; Denies arthralgias, joint swelling, myalgias, neck pain or other Neurologic Neurologic: Denies abnormal gait, abnormal speech, confusion, disequilibrium, dizziness, focal weakness, headache(s), numbness, paresthesias, seizure-like activity, seizures, syncope, tingling, tremor(s) or other Psychiatric Psychiatric: Reports anxiety and depression; Denies homicidal ideation, suicidal ideation or other Endocrine Endocrinology: Denies change in body appearance, cold intolerance, excessive sweating, heat intolerance, polydipsia, polyuria or other Hematologic/Lymphatic Hematologic/Lymphatic: Denies anemia, easy bleeding, easy bruising, lymphadenopathy or other Allergic/Immunologic Allergic/Immunologic: Denies rhinitis, hives, eczemia, asthma or other Vital Signs Vital Signs Vital Signs: 04/10/22 10:35 04/10/22 10:58 04/10/22 14:49 Temperature 97.2 F L Temperature Source Temporal Pulse Rate 70 72 Respiratory Rate 14 16 Blood Pressure 153/83 H 201/67 H 172/68 H Blood Pressure Mean 106 111 102 Pulse Ox 94 94 Oxygen Delivery Method Room Air Room Air Weight Weight: 67 kg Body Mass Index (BMI) 27.8 Physical Exam Const alert, oriented x3, no apparent distress and well nourished Constitutional Narrative: Older white female lying in bed, appears much older than stated age, intermittently talking on the phone, appears comfortable nontoxic HEENT normocephalic, head/scalp atraumatic and moist oral mucous membranes HEENT Narrative: Dentition is poor, Mallampati is 2-3, no thrush Eyes PERRL, EOMs intact bilaterally and conjunctivae normal Eyes Narrative: No scleral icterus Neck no lymphadenopathy, supple and no JVD Neck Narrative: Trachea midline, no thyroid enlargement Resp normal respiratory effort, no retractions, no use of accessory muscles and No clear to auscultation bilaterally Resp Narrative: Diffusely diminished with few scattered end expiratory wheeze Auscultation: wheezes; Negative for rales or rhonchi Cardio regular rate, regular rhythm, S1 normal heart sound, S2 normal heart sound, no murmurs, no rub, no gallops and no clicks GI normal to inspection, nondistended, normoactive bowel sounds, soft to palpation, non-tender and non-distended Extremity no clubbing, cyanosis or edema Extremity Narrative: Left hip with significantly decreased range of motion both and internal/external rotation, AB and adduction as well as flexion and extension, pain at the groin and posterior lateral joint with compression and distraction Neuro oriented x3, CN's II-XII intact bilaterally, moves all extremities and no focal motor deficits Neuro Narrative: Generalized weakness noted but no focal deficits, decreased strength in the left lower extremity but this is due to pain Speech: speech normal Psych affect normal Psych Narrative: Pleasant, appropriate Results Lab / Micro Data Result Diagrams: 04/10/22 11:23 04/10/22 11:23 Labs: Laboratory Results - last 24 hr 04/10/22 11:23: Sodium 143, Potassium 4.6, Chloride 110 H, Carbon Dioxide 32.0, Anion Gap 1 L, BUN 8, Creatinine 0.75, Estim Creat Clear Calc 37.24, Est GFR (MDRD) Af Amer 97, Est GFR (MDRD) Non-Af 80, BUN/Creatinine Ratio 10.6, Glucose 111 H, Calcium 8.6, Total Creatine Kinase 45 04/10/22 11:23: WBC 7.9, RBC 4.10 L, Hgb 10.6 L, Hct 34.8 L, MCV 84.9, MCH 25.9 L, MCHC 30.5 L, RDW Std Deviation 47.0 H, RDW Coeff of John 15.3 H, Plt Count 254, MPV 9.3, Immature Gran % (Auto) 0.500, Neut % (Auto) 80.2 H, Lymph % (Auto) 12.5 L, [place] % (Auto) 4.7, Eos % (Auto) 1.7, Baso % (Auto) 0.4, Absolute Neuts (auto) 6.3, Absolute Lymphs (auto) 0.98, Nucleated RBC % 0 Radiology Impression Femur X-Ray 04/10/22 11:40 IMPRESSION: Normal x-ray examination of the femur. Electronically Signed: Gonzales Dowell MD at 12:16 EST , Foot X-Ray 04/10/22 11:40 IMPRESSION: Degenerative changes of the great toe. Mild soft tissue swelling. Electronically Signed: Gonzales Dowell MD at 12:17 EST , Lumbar Spine X-Ray 04/10/22 11:40 IMPRESSION: Degenerative changes of the spine, as detailed above. Large amount of fecal material is seen in the colon. Electronically Signed: Gonzales Dowell MD at 12:23 EST , Pelvis X-Ray 04/10/22 11:40 IMPRESSION: Degenerative changes. No fracture is seen. 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 Electronically Signed: Gonzales Dowell MD at 12:19 EST , Tibia/Fibula X-Ray 04/10/22 11:40 IMPRESSION: Normal x-ray examination of the tibia and fibula. Electronically Signed: Gonzales Dowell MD at 12:24 EST , Assessment & Plan Assessment/Plan (1) Acute leg pain: (2) Unable to bear weight on left lower extremity: (3) Declining functional status: PLAN: Plan Left lower extremity acute on chronic leg pain secondary to avascular necrosis of the femoral head -Consult to orthopedic surgery-Dr. Denise-was notified by the emergency de partment -Check EKG and chest x-ray in preparation for possible surgery -If surgery is to take place further clearance may be needed with her significant cardiac and pulmonary history -We will make n.p.o. after midnight precautionary early in case they would like to take her to OR in the next 24 hours however I suspect this is likely not to happen -Scheduled Tylenol 1 g Q8 -As needed oxycodone -Unable to stop Plavix as patient had BRIANA placed in 10/2021 -PT/OT consult -Need placement however patient was unwilling to pursue this at the time of admission CAD/HTN/HPL -History of CABG x3 in 2007 -PCI with BRIANA 10/10/2021 -Continue Plavix -Patient is not on aspirin per recommendations of cardiology and 10/21/2021 due to rectal bleeding -Continue home lisinopril -Continue home with atenolol -Continue home atorvastatin History of stroke/TIA -Continue statin -Continue Plavix Hypothyroidism -Continue Synthroid -Check TSH COPD -Continue as needed aerosols -No acute exacerbation -If surgical intervention proceeded with would recommend scheduled DuoNebs for the short-term Rectal cancer -Hemoglobin is stable -Undergoing treatment -Has appointment for follow-up at [facility] soon -No acute issues Chronic anemia -Hemoglobin is stable at 10.2 History of left shoulder fracture -Nonoperative management was pursued GERD -Patient on PPI we will continue Depression/anxiety -Continue home lorazepam 1 mg 4 times daily -Continue bupropion -Continue citalopram Chronic pain -Continue home Urinary incontinence -Continue oxybutynin Insomnia -Continue home trazodone DVT prophylaxis -Lovenox daily CODE STATUS -Full code as per discussion emergency department Charges/Coding Visit Charges Inpatient E&M: 80277 Init Hosp L3
--- NOTE | 2022-04-10 15:30 | CT_ITS ---
STUDY: CT LEFT FEMUR WITHOUT CONTRAST REASON FOR EXAM: Female, 76 years old. L Hip AVN RADIATION DOSAGE (If Supplied By Facility): CTDIvol = ( 12.60 ) mGy, DLP = ( 506.65 ) mGycm TECHNIQUE: Transaxial CT imaging of the femur was performed. Sagittal and coronal images were reconstructed. Individualized dose optimization techniques were used for this CT. COMPARISON: Comparison is made with prior radiographs done earlier in the day. FINDINGS: Deformity with subchondral geodes of the femoral head. Avascular necrosis should be ruled out. Subchondral geodes are also seen in the superolateral aspect of the acetabulum. Mild degree of joint space narrowing. Normal visualized soft tissue structure. CT/Extremity Lower without Contra IMPRESSION: Deformity of the left femoral head with subchondral cystic change suggestive of avascular necrosis. Subchondral geodes are also seen in the superior lateral aspect of the acetabulum with mild degree of joint space narrowing. Electronically Signed: Gonzales Dowell MD at 15:47 EST ,
[2022-04-10] MEDS: HYDROcodone Bitartrate/Apap 5/325 Tablet PO (20:23)
--- NOTE | 2022-04-10 21:46 | CON.PCM.OR_ITS ---
HPI Consult Data Date of Consult: 04/10/22 HPI Narrative HPI Narrative: MAURICE WALLACE, is a 76 F who presents for left lower extremity pain primarily of the left hip. Patient had a ground-level fall at home reaching for some low cabinets for hand. [place] a bit dizzy fell over. Most the pain is in the left thigh somewhat going down the leg. No numbness or weakness. Patient is having difficulty ambulating, but trying to get up and out of bed currently. Inves tigations were negative per the emergency department however patient is having difficulty in mobilizing normally uses a cane and therefore is being admitted for pain management and mobilization. FOR[facility]LY [facility], LATER [facility] Medical History Anemia Anxiety and depression Atherosclerosis of coronary artery bypass graft without angina pectoris Atherosclerosis of coronary artery of minto heart with angina pectoris Back pain Benzodiazepine dependence CAD (coronary artery disease) Carotid artery stenosis Community acquired pneumonia COPD (chronic obstructive pulmonary disease) COPD (chronic obstructive pulmonary disease) CVA (cerebral vascular accident) DDD (degenerative disc disease), lumbar Depression with anxiety Diastolic dysfunction Elevated troponin Essential (primary) hypertension Guaiac positive stools H/O: pneumonia Hemorrhoids, external History of rectal cancer History of thyroid cancer Hyperlipidemia Hypothyroidism Nicotine dependence Non-rheumatic mitral regurgitation Non-rheumatic tricuspid valve insufficiency Non-ST elevation (NSTEMI) myocardial infarction Obstructive sleep apnea Rectal cancer Secondary pulmonary arterial hypertension TIA (transient ischemic attack) TIA (transient ischemic attack) Home Medications levothyroxine 75 mcg tablet 75 mcg PO QODAY thyroid 09/06/17 [History Last Taken 04/09/22] citalopram 40 mg tablet 40 mg PO DAILY depression 12/18/17 [History Last Taken 04/09/22] atenolol 50 mg tablet 50 mg PO DAILY heart rate 01/05/18 [History Last Taken 04/09/22] atorvastatin 40 mg tablet 40 mg PO DAILY cholesterol 01/05/18 [History Last Taken 04/09/22] lorazepam 1 mg tablet 1 mg PO 4X/DAY anxiety 06/28/18 [History Last Taken 04/09/22] albuterol sulfate 0.63 mg/3 mL solution for nebulization 0.63 mg inhalation Q4H PRN Congestion 07/14/18 [History Last Taken 1 Week Ago ~10/01/21] bupropion HCl 100 mg tablet 100 mg PO DAILY mood 12/08/19 [History Last Taken 04/09/22] pantoprazole 40 mg tablet,delayed release 40 mg PO BID gerd 01/16/19 [History Last Taken 04/09/22] metoclopramide HCl 5 mg tablet (Reglan) 5 mg PO DAILY PRN nausea and vomiting #10 tabs 06/04/21 [Rx Last Taken Unknown] gabapentin 100 mg capsule 200 mg PO 4X/DAY pain 10/08/21 [History Last Taken 04/09/22] oxybutynin chloride 5 mg tablet,extended release 24 hr 5 mg PO DAILY bladder 10/08/21 [History Last Taken 04/09/22] trazodone 100 mg tablet 100 mg PO QHS sleep 10/08/21 [History Last Taken 04/09/22] clopidogrel 75 mg tablet 75 mg PO DAILY #30 tabs 10/21/21 [Rx Last Taken 04/09/22] meclizine 25 mg tablet 25 mg PO DAILY PRN dizziness #30 tabs 02/28/22 [Rx Last Taken 04/09/22] lisinopril 20 mg tablet 20 mg PO DAILY BP 04/10/22 [History Last Taken 04/09/22] Allergy/AdvReac Type Severity Reaction Status Date / Time morphine Allergy PT UNSURE Verified 02/28/22 13:17 Penicillins Allergy Hives Verified 02/28/22 13:17 tramadol HCl [From Ultram] Allergy PT UNSURE Verified 02/28/22 13:17 bupropion [From Wellbutrin] AdvReac hallucinati Verified 02/28/22 13:17 ons Family History Father Heart disease of heart attack at age 64 Mother Cancer of cancer at age 72 CVA (cerebral vascular accident) Surgical History History of appendectomy History of coronary artery bypass graft x 3 (~2007) History of coronary artery stent placement (10/10/21) History of left heart catheterization (10/10/21) Hx of cholecystectomy Hx of thyroidectomy Presence of stent in coronary artery (~10/10/21) Social History (Updated 04/10/22 @ 20:[address] Natasha Purdy DO) household members: significant other housing: house Smoking Status: Current every day smoker tobacco type: cigarettes details: Patient denies alcohol use substance use type: does not use Vital Signs Vital Signs Vital Signs: 04/10/22 10:35 04/10/22 10:58 04/10/22 14:49 Temperature 97.2 F L Temperature Source Temporal Pulse Rate 70 72 Respiratory Rate 14 16 Blood Pressure 153/83 H 201/67 H 172/68 H Blood Pressure Mean 106 111 102 Pulse Ox 94 94 Oxygen Delivery Method Room Air Room Air 04/10/22 18:18 04/10/22 20:24 Temperature 98.0 F Temperature Source Temporal Pulse Rate 74 75 Respiratory Rate 16 18 Blood Pressure 169/61 H 182/70 H Blood Pressure Mean 97 107 Pulse Ox 94 94 Oxygen Delivery Method Room Air Room Air Weight Weight: 147 lb 11.355 oz Body Mass Index (BMI) 27.8 Physical Exam Const alert and oriented x3 General Appearance: cooperative Orientation / Consciousness: Negative for confused or lethargic HEENT normocephalic Resp normal respiratory effort Effort and Inspection: able to speak in complete sentences GI Inspection: Negative for abdominal distention Extremity normal capillary refill, no calf tenderness and no pedal edema Extremity Narrative: Closed injury. No obvious ecchymosis or abrasions. Mild thigh pain with internal/external rotation of the hip. Full knee range of motion. Full ankle range of motion. Able to hold leg out straight normal straight leg raise test. Normal sensation L2-S1. Foot is warm and well-perfused able to move the toes dorsiflex and plantarflex the foot. General Extremity: Negative for atrophy, clubbing or deformity Lab / Micro Data Result Diagrams: 04/10/22 11:23 04/10/22 11:23 Labs: Laboratory Results - last 24 hr 04/10/22 11:23: Sodium 143, Potassium 4.6, Chloride 110 H, Carbon Dioxide 32.0, Anion Gap 1 L, BUN 8, Creatinine 0.75, Estim Creat Clear Calc 37.24, Est GFR (MDRD) Af Amer 97, Est GFR (MDRD) Non-Af 80, BUN/Creatinine Ratio 10.6, Glucose 111 H, Calcium 8.6, Total Creatine Kinase 45 04/10/22 11:23: WBC 7.9, RBC 4.10 L, Hgb 10.6 L, Hct 34.8 L, MCV 84.9, MCH 25.9 L, MCHC 30.5 L, RDW Std Deviation 47.0 H, RDW Coeff of John 15.3 H, Plt Count 254, MPV 9.3, Immature Gran % (Auto) 0.500, Neut % (Auto) 80.2 H, Lymph % (Auto) 12.5 L, [place] % (Auto) 4.7, Eos % (Auto) 1.7, Baso % (Auto) 0.4, Absolute Neuts (auto) 6.3, Absolute Lymphs (auto) 0.98, Nucleated RBC % 0 Radiology Impression Femur X-Ray 04/10/22 11:40 IMPRESSION: Normal x-ray examination of the femur. Electronically Signed: Gonzales Dowell MD at 12:16 EST Reading Location ID and State: [facility] / [place] , Service support , Foot X-Ray 04/10/22 11:40 IMPRESSION: Degenerative changes of the great toe. Mild soft tissue swelling. Electronically Signed: Gonzales Dowell MD at 12:17 EST Reading Location ID and State: [facility] / [place] , Service support , Lumbar Spine X-Ray 04/10/22 11:40 IMPRESSION: Degenerative changes of the spine, as detailed above. Large amount of fecal material is seen in the colon. Electronically Signed: Gonzales Dowell MD at 12:23 EST , Pelvis X-Ray 04/10/22 11:40 IMPRESSION: Degenerative changes. No fracture is seen. 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 Electronically Signed: Gonzales Dowell MD at 12:19 EST , Tibia/Fibula X-Ray 04/10/22 11:40 IMPRESSION: Normal x-ray examination of the tibia and fibula. Electronically Signed: Gonzales Dowell MD at 12:24 EST , Lower Extremity CT 04/10/22 15:30 IMPRESSION: Deformity of the left femoral head with subchondral cystic change suggestive of avascular necrosis. Subchondral geodes are also seen in the superior lateral aspect of the acetabulum with mild degree of joint space narrowing. Electronically Signed: Gonzales Dowell MD at 15:47 EST , Assessment & Plan Assessment/Plan (1) Avascular necrosis of femur head, left: (2) Acute leg pain: PLAN: 76-year-old female with an exacerbation of pre-existing left hip osteoarthritis. No fracture on CT or imaging. The patient will be admitted under internal medicine service. They can be weightbearing as tolerated range of motion and activities as tolerated with appropriate pain control PT and OT se rvices ambulation with a walker or cane as needed follow-up as an outpatient. I will not follow patient while in hospital. Ortho signs off, but call with concerns if needed.
[2022-04-10] MEDS: traZODone 100 MG Tablet PO (23:25)
[2022-04-10] MEDS: Acetaminophen 500 MG Tablet 1000 MG PO (23:27)
[2022-04-10] MEDS: Atorvastatin Calcium 40 MG Tablet PO (23:28)
[2022-04-10] MEDS: Pantoprazole Sodium 40 MG Tablet PO (23:28)
[2022-04-10] MEDS: Gabapentin 100 MG Capsule 200 MG PO (23:31)
[2022-04-11 04:00] VITALS: BP 154/69; PULSE 57; RESP 16; TEMP 36.9; O2SAT 92
[2022-04-11 05:07] LABS: Absolute Lymphocyte Count 1.24 X10^3/uL (0.83-4.51); Absolute Neutrophil Count 3.2 X10^3/uL (2.0-7.7); Basophil# 0.03 X10^3/uL; Basophil% 0.6 % (0-1); Eosinophil# 0.19 X10^3/uL; Eosinophils% 3.7 % (0-5); Hematocrit 30.4 % (37-47); Lymphocyte # 1.24 X10^3/ul (0.83-4.51); Lymphocyte % 24.5 % (19-41); Mean Corp Hgb Conc 29.6 g/dL (32-36); Mean Corpuscular Hgb 25.3 pg (27.0-32.0); Mean Corpuscular Volume 85.4 fL (81-99); Mean Platelet Vol. 10.3 fl (6.2-12.0); Monocyte# 0.39 X10^3/uL; Monocyte% 7.7 % (0-10); NRBC Flagged by Analyzer 0 % (0-5); Neutrophil % 63.1 % (47-70); Platelet Count 255 K/mm3 (150-450); RBC Distribution Width CV 15.3 % (11.6-14.6); RBC Distribution Width SD 46.7 fl (35.1-43.9); Red Blood Count 3.56 M/mm3 (4.2-5.4); White Blood Count 5.1 K/mm3 (4.4-11.0)
[2022-04-11 05:18] LABS: International Normalized Ratio 1.1
[2022-04-11 05:35] LABS: Vitamin D,25 Hydroxy 50.6 ng/mL
[2022-04-11 05:40] LABS: ALB/GLOB Ratio 0.7 RATIO (0.9-2.4); AST(SGOT) 15 U/L (15-37); Alanine Aminotransfer ALT/SGPT 13 U/L (13-56); Albumin, Serum 2.5 g/dL (3.2-5.0); Alkaline Phosphatase 111 U/L (45-117); Anion Gap 2 (5-15); BUN 10 mg/dL (7-18); BUN/Creat Ratio 14.8 RATIO (10-20); Chloride 108 mmol/L (98-107); Creatinine, Serum 0.68 mg/dL (0.55-1.02); EST Glomerular Filtration Rate 90 mL/min (>60); Est Glom Filt Rate - Afr Amer 109 mL/min (>60); Estimated Creatinine Clearance 37.24 ml/min; Globulin 3.7 g/dL (2.2-4.2); Glucose 83 mg/dL (74-106); Magnesium 2.1 mg/dL (1.6-2.6); Phosphorus 3.2 mg/dL (2.5-4.9); Potassium 3.8 mmol/L (3.5-5.1); Protein, Total 6.2 g/dL (6.4-8.2); Sodium Level 142 mmol/L (136-145); Thyroid Stim Hormone (TSH) 1.89 uIU/mL (0.358-3.74)
--- NOTE | 2022-04-11 05:55 | RAD_ITS ---
STUDY: X-RAY CHEST REASON FOR EXAM: Female, 76 years old. Pre-op TECHNIQUE: Single AP portable view of the chest. COMPARISON: Comparison is made with prior study dated January 27, 2022. FINDINGS: The lungs are clear and expanded. There is no demonstrated pleural abnormality. Sternal cerclage wires and vascular clips are present from a prior sternotomy and coronary artery bypass graft procedure (CABG). Normal mediastinum and beverly. Normal visualized pulmonary arteries. There is atherosclerotic calcification of the aortic arch with tortuosity. There are diffuse degenerative changes of the visualized thoracic spine. Healed fracture of the proximal left humerus with resultant deformity. There is no demonstrated abnormality of the visualized soft tissue structures of the upper abdomen. RAD/Chest 1 View (Portable) IMPRESSION: No acute abnormality is seen. Electronically Signed: Gonzales Dowell MD at 10:53 EST ,
--- NOTE | 2022-04-11 05:55 | EKG12_ITS ---
Test Reason : PRE-OP Blood Pressure : / mmHG Vent. Rate : 055 BPM Atrial Rate : 055 BPM P-R Int : 208 ms QRS Dur : 086 ms QT Int : 480 ms P-R-T Axes : 067 044 125 degrees QTc Int : 459 ms Sinus bradycardia Nonspecific ST and T wave abnormality Abnormal ECG When compared with ECG of 27-JAN-2022 18:16, Nonspecific T wave abnormality has replaced inverted T waves in Inferior leads Confirmed by CONSUELO GODL, EDDY ([id number]), editor magazine WALLY LOAIZA ([id number]) on 04/15/2022 8:01:26 AM Referred By: Confirmed By:EDDY CORDERO MD
[2022-04-11 07:40] VITALS: O2SAT 95
[2022-04-11] MEDS: Lisinopril 20 MG Tablet PO (09:04)
[2022-04-11] MEDS: buPROPion (SR) 100 MG TABLET.SA PO (09:04)
[2022-04-11] MEDS: Pantoprazole Sodium 40 MG Tablet PO ×2 (09:04→21:11)
[2022-04-11] MEDS: Tolterodine Tartrate 2 MG CAP.SA PO (09:05)
[2022-04-11] MEDS: Gabapentin 100 MG Capsule 200 MG PO ×4 (09:05→21:11)
[2022-04-11] MEDS: LORazepam 1 MG Tablet PO ×4 (09:05→20:01)
[2022-04-11] MEDS: Citalopram 40 MG TABLET PO (09:05)
[2022-04-11] MEDS: Enoxaparin 40 MG/0.4 ML Syringe SC (09:05)
[2022-04-11] MEDS: Clopidogrel Bisulfate 75 MG Tablet PO (09:05)
[2022-04-11] MEDS: Atenolol 50 MG Tablet PO (09:06)
[2022-04-11] MEDS: oxyCODONE 5 MG Tablet PO ×2 (09:54→16:00)
[2022-04-11] MEDS: 0.9% Saline Lock 10 ML Syringe IV ×2 (09:57→21:12)
[2022-04-11 10:00] VITALS: BP 179/67; PULSE 63; RESP 18; TEMP 36.6; O2SAT 93
--- NOTE | 2022-04-11 10:00 | CASEMGMT ---
Addendum entered by Fern Carrera 04/11/22 10:36: RN spoke with SW. She spoke with patient's daughter Shyanne. Shyanne said that patient isn't always truthful about situation at home. Patient tends to make it sound like things are fine at home. However, patient's daughter is doing a lot and it is getting to be too much. Patient is active with Palliative Care, however they have had a hard time scheduling appts with her. Per Shyanne patient does not like people in her home. Fern SHELTON Original Note: Assessment- SW completed assessment with patient at bedside. Patient was alert and oriented X3. SW also confirmed address and phone numbers of patient and contacts. Living situation- Patient lives alone in a mobile home with ramps for entry. PCP: Dr Rojas with [facility] Specialists: Patient said she does not see any specialist, but SW noted in H&P that patient sees Oncology for rectal cancer at [facility] Pharmacy: [facility] DME:? walker, wheelchair, power wheelchair, grab bars, lift chair, cane, handicap accessible shower with seat. ADL's/IADL's: Patient bathes her self, manages her own medications, toilets herself, and dresses self. Patient's daughters help with meals, cleaning, and finances. Past SNF/rehab: None Past HH: Yes, but she does not remember agency LW: Yes and on file at [facility] POA:? Yes and on file at [facility]. Patient's daughter Shyanne is her Healthcare Power of [employer]. At this time patient said she would be agreeable to go to [facility] facility if recommended. However, patient thinks she is having surgery at [facility]. Per physician note she is not having surgery at [facility]. Plan: Undetermined pending PT/OT Fern SHELTON
[2022-04-11 11:00] VITALS: BP 144/38; PULSE 61; RESP 18; TEMP 36.3; O2SAT 93
--- NOTE | 2022-04-11 13:27 | CASEMGMT ---
Therapy recommended usp facility. SW met with patient. SW provided patient with a list of usp facility?providers including quality and resource use data and consistent with patient?s preferred geographic region, medical needs, and insurance network were provided from the [facility]. LOC explained to patient she would need to pick a few facilities she is okay with and SW will contact the facilities. Patient said it was important that she be able to smoke. SW went over the facilities that allow smoking. Patient chose [facility] as she could smoke and it is really close to her home. LOC let patient know SW will make the referral. LOC told patient she will stay at [facility] until her insurance approves her which likely will not be until Thursday at the earliest. Referral made to [facility] Fern SHELTON
[2022-04-11] MEDS: Acetaminophen 500 MG Tablet 1000 MG PO ×2 (13:34→21:11)
--- NOTE | 2022-04-11 15:10 | CASEMGMT ---
CC accepted patient and will start pre-cert. SW notified patient. Plan: [facility] pending insurance approval. Fern SHELTON
[2022-04-11 15:56] VITALS: BP 142/59; PULSE 62; RESP 18; TEMP 36.6; O2SAT 95
--- NOTE | 2022-04-11 19:19 | PCM.PN.HOSP ---
Reason for Visit Reason for Visit: Diagnoses Pain in leg, unspecified (04/10/22) Idiopathic aseptic necrosis of left femur (04/10/22) Other abnormalities of gait and mobility (04/10/22) Other malaise (04/10/22) Subjective Subjective Patient was seen and examined today, I had a discussion with her daughter about her care, I also discussed her care with orthopedic surgery (Dr. Denise), the orthopedic surgeon stated that it was not an emergency to perform any surgery on the patient at this time, he did agree the patient had avascular necrosis of the left hip. According to patient's daughter, patient has a history of rectal cancer and is due for follow-up at the [facility] earlier this month. The daughter states there was detected a rectal mass after chemotherapy and radiation, she is due to go up to the [facility] for evaluation whether she needs to have surgery or not. Patient has agreed to go to an extended care facility for short-term rehab services. Objective Data Objective Data Vital Signs: Vital Signs Temp Pulse Resp BP Pulse Ox O2 Del Method FiO2 98 F 62 18 142/59 H 95 Room Air 95 04/11/22 15:56 04/11/22 15:56 04/11/22 15:56 04/11/22 15:56 04/11/22 15:56 04/11/22 15:56 04/11/22 15:53 Oxygen Delivery Method Room Air Weight: 60.2 kg Body Mass Index (BMI) 25.0 Intake & Output: Intake and Output for Last 24 Hours 04/09/22 04/10/22 04/11/22 23:59 23:59 23:59 Intake Total 920 / 920 Output Total 600 / 600 Balance 320 / 320 Medical Nutrition Assessment Dietitian: Malnutrition Criteria Met Start: 04/11/22 11:51 Freq: Status: Active Protocol: Document 04/11/22 11:51 SLA (Rec: 04/11/22 11:51 SLA Desktop) Nutrition Malnutrition Evidence of Malnutrition Exists Yes Evidenced By Suboptimal Energy Intake ( Severe),Weight Loss (Severe) Clinical Problem Chronic Disease or Condition Related Malnutrition Etiology related to L hip pain and inadequate energy intake Signs/Symptoms as evidenced by po intake meeting <50% of estimated carlita/ pro needs and 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 Recommendation Dietitian Recommendations/Changes Rec continue liberal regular diet d/t signs and symptoms of malnutrition Will provide ensure plus high protein (4 oz) w/ meals tid instead of medpass per pt preference Lab / Micro Data Result Diagrams: 04/11/22 04:19 04/11/22 04:19 Labs: Laboratory Results - last 24 hr 04/11/22 04:19: Vitamin D 25-Hydroxy 50.6 04/11/22 04:19: WBC 5.1, RBC 3.56 L, Hgb 9.0 L, Hct 30.4 L, MCV 85.4, MCH 25.3 L, MCHC 29.6 L, RDW Std Deviation 46.7 H, RDW Coeff of John 15.3 H, Plt Count 255, MPV 10.3, Immature Gran % (Auto) 0.400, Neut % (Auto) 63.1, Lymph % (Auto) 24.5, [place] % (Auto) 7.7, Eos % (Auto) 3.7, Baso % (Auto) 0.6, Absolute Neuts (auto) 3.2, Absolute Lymphs (auto) 1.24, Nucleated RBC % 0 04/11/22 04:19: PT 14.0, INR 1.1 04/11/22 04:19: Sodium 142, Potassium 3.8, Chloride 108 H, Carbon Dioxide 32.0, Anion Gap 2 L, BUN 10, Creatinine 0.68, Estim Creat Clear Calc 37.24, Est GFR (MDRD) Af Amer 109, Est GFR (MDRD) Non-Af 90, BUN/Creatinine Ratio 14.8, Glucose 83, Calcium 8.0 L, Phosphorus 3.2, Magnesium 2.1, Total Bilirubin 0.60, AST 15, ALT 13, Alkaline Phosphatase 111, Total Protein 6.2 L, Albumin 2.5 L, Globulin 3.7, Albumin/Globulin Ratio 0.7 L, TSH 1.89 Radiography Diagnostic Testing: Radiology Impression Chest X-Ray 04/11/22 05:55 IMPRESSION: No acute abnormality is seen. Electronically Signed: Gonzales Dowell MD at 10:53 EST , Physical Exam Const alert, oriented x3 and no apparent distress Constitutional Narrative: Patient appears older than her stated age General Appearance: cooperative, well kempt and well developed Orientation / Consciousness: awake, oriented to person, oriented to place and oriented to time HEENT normocephalic, head/scalp atraumatic and moist oral mucous membranes Eyes PERRL, EOMs intact bilaterally and conjunctivae normal Neck supple, no JVD, thyroid normal and no carotid bruits General: trachea midline Resp normal respiratory effort, no retractions, no use of accessory muscles and clear to auscultation bilaterally Auscultation: Negative for rales, rhonchi or wheezes Cardio regular rate, regular rhythm, S1 normal heart sound, S2 normal heart sound, no murmurs, no rub and no gallops GI normal to inspection, nondistended, normoactive bowel sounds, soft to palpation, non-tender and non-distended Extremity Extremity Narrative: No lower extremity edema was noted, patient was not ambulated at the time of my examination Skin no rashes or lesions noted General Skin Exam: no breakdown Neuro oriented x3, CN's II-XII intact bilaterally, moves all extremities, no focal motor deficits and no sensory deficits noted Sensorium / Orientation: awake, alert, oriented to person, oriented to place and oriented to time Speech: speech normal Psych affect normal Assessment & Plan Assessment/Plan (1) Avascular necrosis of femur head, left: PLAN: Plan 1. Avascular necrosis of the left femur with chronic pain and inability to ambulate-patient is being seen by PT and OT, I will place patient on IV corticosteroids to try to get pain relief, patient will be placed on OxyContin 15 mg twice daily in addition she will receive oxycodone 2.5 to 5 mg every 4 hours as needed. Patient will need short-term placement in detention facility #2 rectal cancer-complicates care, medical course, recovery, and prognosis #3 coronary artery disease-patient is on Plavix currently #4 essential hypertension-patient is on lisinopril #5 hypothyroidism-patient is on levothyroxine currently Total clinical time spent by myself addressing the patient's medical issues, reviewing all of her data, and collaborating with patient's care team: 35 minutes Charges/Coding Visit Charges Inpatient E&M: 19230 Subs Hosp L2
[2022-04-11] MEDS: traZODone 100 MG Tablet PO (21:11)
[2022-04-11] MEDS: oxyCODONE CR 15 MG Tablet PO (21:11)
[2022-04-11] MEDS: Atorvastatin Calcium 40 MG Tablet PO (21:11)
[2022-04-11 21:13] VITALS: BP 143/57; PULSE 66; RESP 14; TEMP 37.2; O2SAT 97
[2022-04-12 03:15] VITALS: BP 143/60; PULSE 60; RESP 14; TEMP 37.2; O2SAT 92
[2022-04-12] MEDS: 0.9% Saline Lock 10 ML Syringe IV ×3 (06:19→21:13)
[2022-04-12] MEDS: Acetaminophen 500 MG Tablet 1000 MG PO ×3 (06:20→21:07)
[2022-04-12 08:18] VITALS: O2SAT 95
[2022-04-12] MEDS: Gabapentin 100 MG Capsule 200 MG PO ×4 (08:57→21:07)
[2022-04-12] MEDS: LORazepam 1 MG Tablet PO ×4 (08:57→21:05)
[2022-04-12] MEDS: Lisinopril 20 MG Tablet PO (09:04)
[2022-04-12] MEDS: Tolterodine Tartrate 2 MG CAP.SA PO (09:05)
[2022-04-12] MEDS: buPROPion (SR) 100 MG TABLET.SA PO (09:05)
[2022-04-12] MEDS: Clopidogrel Bisulfate 75 MG Tablet PO (09:05)
[2022-04-12] MEDS: Atenolol 50 MG Tablet PO (09:05)
[2022-04-12] MEDS: Citalopram 40 MG TABLET PO (09:05)
[2022-04-12] MEDS: Pantoprazole Sodium 40 MG Tablet PO ×2 (09:05→21:10)
[2022-04-12] MEDS: Enoxaparin 40 MG/0.4 ML Syringe SC (09:05)
[2022-04-12 09:15] VITALS: BP 164/61; PULSE 64; RESP 18; TEMP 36.7; O2SAT 96
[2022-04-12 10:30] VITALS: BP 151/51; PULSE 65; RESP 18; TEMP 36.7; O2SAT 95
[2022-04-12] MEDS: oxyCODONE CR 15 MG Tablet PO ×2 (10:32→21:06)
[2022-04-12 16:28] VITALS: BP 158/53; PULSE 63; RESP 18; TEMP 36.6; O2SAT 94
--- NOTE | 2022-04-12 16:49 | PCM.PN.HOSP ---
Reason for Visit Reason for Visit: Diagnoses Pain in leg, unspecified (04/10/22) Idiopathic aseptic necrosis of left femur (04/10/22) Other abnormalities of gait and mobility (04/10/22) Other malaise (04/10/22) Subjective Subjective Patient was seen and examined today, I talked at length with her daughter by phone today, her daughter states that the patient has had self-neglect at home and some mental confusion, she is a long-term benzodiazepine use patient, she does see psychiatry as an outpatient. Daughter wanted to know if the patient could go to [facility], unfortunately it is not in her network and I advised her of that. The plan will be for patient to go to [facility] when approval is obtained. Objective Data Objective Data Vital Signs: Vital Signs Temp Pulse Resp BP Pulse Ox O2 Del Method FiO2 98 F 63 18 158/53 H 94 Room Air 95 04/12/22 16:28 04/12/22 16:28 04/12/22 16:28 04/12/22 16:28 04/12/22 16:28 04/12/22 16:28 04/12/22 13:45 Oxygen Delivery Method Room Air Weight: 60.2 kg Body Mass Index (BMI) 25.0 Intake & Output: Intake and Output for Last 24 Hours 04/10/22 04/11/22 04/12/22 23:59 23:59 23:59 Intake Total 920 / 1180 740 / 740 Output Total 600 / 600 1175 / 1175 Balance 320 / 580 -435 / -435 Medical Nutrition Assessment Dietitian: Malnutrition Criteria Met Start: 04/11/22 11:51 Freq: Status: Active Protocol: Document 04/11/22 11:51 SLA (Rec: 04/11/22 11:51 SLA Desktop) Nutrition Malnutrition Evidence of Malnutrition Exists Yes Evidenced By Suboptimal Energy Intake ( Severe),Weight Loss (Severe) Clinical Problem Chronic Disease or Condition Related Malnutrition Etiology related to L hip pain and inadequate energy intake Signs/Symptoms as evidenced by po intake meeting <50% of estimated carlita/ pro needs and 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 Recommendation Dietitian Recommendations/Changes Rec continue liberal regular diet d/t signs and symptoms of malnutrition Will provide ensure plus high protein (4 oz) w/ meals tid instead of medpass per pt preference Lab / Micro Data Result Diagrams: 04/11/22 04:19 04/11/22 04:19 Physical Exam Narrative alert, oriented x3 and no apparent distress Constitutional Narrative: Patient appears older than her stated age General Appearance: cooperative, well kempt and well developed Orientation / Consciousness: awake, oriented to person, oriented to place and oriented to time HEENT normocephalic, head/scalp atraumatic and moist oral mucous membranes Eyes PERRL, EOMs intact bilaterally and conjunctivae normal Neck supple, no JVD, thyroid normal and no carotid bruits General: trachea midline Resp normal respiratory effort, no retractions, no use of accessory muscles and clear to auscultation bilaterally Auscultation: Negative for rales, rhonchi or wheezes Cardio regular rate, regular rhythm, S1 normal heart sound, S2 normal heart sound, no murmurs, no rub and no gallops GI normal to inspection, nondistended, normoactive bowel sounds, soft to palpation, non-tender and non-distended Extremity Extremity Narrative: No lower extremity edema was noted, patient was not ambulated at the time of my examination Skin no rashes or lesions noted General Skin Exam: no breakdown Neuro oriented x3, CN's II-XII intact bilaterally, moves all extremities, no focal motor deficits and no sensory deficits noted Sensorium / Orientation: awake, alert, oriented to person, oriented to place and oriented to time Speech: speech normal Psych affect normal Assessment & Plan Assessment/Plan (1) Avascular necrosis of femur head, left: PLAN: Plan 1. Avascular necrosis of the left femur with chronic pain and inability to ambulate-patient is being seen by PT and OT, patient remains on OxyContin and IV corticosteroids, we will await placement in nursing home facility early next week. #2 rectal cancer-complicates care, medical course, recovery, and prognosis #3 coronary artery disease-patient is on Plavix currently #4 essential hypertension-patient is on lisinopril #5 hypothyroidism-patient is on levothyroxine currently #6 severe protein and caloric chronic malnutrition-related to the left hip pain and inadequate energy intake as evidenced by p.o. intake meeting less than 50% of estimated calorie and protein needs and 10.4 pound weight loss x6 months-liberal regular diet will be continued, Ensure plus high-protein with meals 3 times daily will be given to the patient Total clinical time spent by myself addressing the patient's medical issues, reviewing all of her data, and collaborating with patient's care team: 35 minutes Charges/Coding Visit Charges Inpatient E&M: 51620 Subs Hosp L2
[2022-04-12] MEDS: oxyCODONE 5 MG Tablet PO (18:42)
[2022-04-12] MEDS: traZODone 100 MG Tablet PO (21:09)
[2022-04-12] MEDS: Atorvastatin Calcium 40 MG Tablet PO (21:10)
[2022-04-12 21:48] VITALS: BP 180/64; PULSE 69; RESP 20; TEMP 36.8; O2SAT 95
[2022-04-13 03:08] VITALS: BP 159/59; PULSE 68; RESP 16; TEMP 36.3; O2SAT 94
[2022-04-13] MEDS: Levothyroxine 75 MCG Tablet PO (06:37)
[2022-04-13] MEDS: Acetaminophen 500 MG Tablet 1000 MG PO ×3 (06:37→21:04)
[2022-04-13] MEDS: 0.9% Saline Lock 10 ML Syringe IV ×2 (06:38→21:18)
[2022-04-13 08:26] VITALS: BP 194/63; PULSE 65; RESP 18; TEMP 36.6; O2SAT 96
[2022-04-13] MEDS: Gabapentin 100 MG Capsule 200 MG PO ×4 (08:41→21:07)
[2022-04-13] MEDS: LORazepam 1 MG Tablet PO ×4 (08:41→19:41)
[2022-04-13] MEDS: Tolterodine Tartrate 2 MG CAP.SA PO (08:42)
[2022-04-13] MEDS: Citalopram 40 MG TABLET PO (08:42)
[2022-04-13] MEDS: Enoxaparin 40 MG/0.4 ML Syringe SC (08:42)
[2022-04-13] MEDS: oxyCODONE CR 15 MG Tablet PO (08:42)
[2022-04-13] MEDS: Clopidogrel Bisulfate 75 MG Tablet PO (08:43)
[2022-04-13] MEDS: buPROPion (SR) 100 MG TABLET.SA PO (08:44)
[2022-04-13] MEDS: Pantoprazole Sodium 40 MG Tablet PO ×2 (08:44→21:06)
[2022-04-13] MEDS: Lisinopril 20 MG Tablet PO (08:44)
[2022-04-13] MEDS: Atenolol 50 MG Tablet PO (08:44)
--- NOTE | 2022-04-13 09:33 | PN.HOSP_ITS ---
Reason for Visit Reason for Visit: Diagnoses Pain in leg, unspecified (04/10/22) Idiopathic aseptic necrosis of left femur (04/10/22) Other abnormalities of gait and mobility (04/10/22) Other malaise (04/10/22) Subjective Subjective Was seen and examined today, she does not appear to be in any pain at rest, I talked her about perhaps increasing her pain medications, she does not appear sedated so I have decided to increase her OxyContin to 20 mg twice a day. Objective Data Objective Data Vital Signs: Vital Signs Temp Pulse Resp BP Pulse Ox O2 Del Method FiO2 97.8 F 65 18 194/63 H 96 Room Air 95 04/13/22 08:26 04/13/22 08:26 04/13/22 08:26 04/13/22 08:26 04/13/22 08:26 04/13/22 08:26 04/12/22 13:45 Oxygen Delivery Method Room Air Weight: 60.2 kg Body Mass Index (BMI) 25.0 Intake & Output: Intake and Output for Last 24 Hours 04/11/22 04/12/22 04/13/22 23:59 23:59 23:59 Intake Total 920 / 1180 980 / 980 Output Total 600 / 600 1475 / 1475 550 / 550 Balance 320 / 580 -495 / -495 -550 / -550 Medical Nutrition Assessment Dietitian: Malnutrition Criteria Met Start: 04/11/22 11:51 Freq: Status: Active Protocol: Document 04/11/22 11:51 SLA (Rec: 04/11/22 11:51 SLA Desktop) Nutrition Malnutrition Evidence of Malnutrition Exists Yes Evidenced By Suboptimal Energy Intake ( Severe),Weight Loss (Severe) Clinical Problem Chronic Disease or Condition Related Malnutrition Etiology related to L hip pain and inadequate energy intake Signs/Symptoms as evidenced by po intake meeting <50% of estimated carlita/ pro needs and 10.4% wt loss x 6 months [employer] Status Active Problem Recommendation Dietitian Recommendations/Changes Rec continue liberal regular diet d/t signs and symptoms of malnutrition Will provide ensure plus high protein (4 oz) w/ meals tid instead of medpass per pt preference Lab / Micro Data Result Diagrams: 04/11/22 04:19 04/11/22 04:19 Physical Exam Narrative Alert, oriented x3 and no apparent distress Constitutional Narrative: Patient appears older than her stated age General Appearance: cooperative, well kempt and well developed Orientation / Consciousness: awake, oriented to person, oriented to place and oriented to time HEENT normocephalic, head/scalp atraumatic and moist oral mucous membranes Eyes PERRL, EOMs intact bilaterally and conjunctivae normal Neck supple, no JVD, thyroid normal and no carotid bruits General: trachea midline Resp normal respiratory effort, no retractions, no use of accessory muscles and clear to auscultation bilaterally Auscultation: Negative for rales, rhonchi or wheezes Cardio regular rate, regular rhythm, S1 normal heart sound, S2 normal heart sound, no murmurs, no rub and no gallops GI normal to inspection, nondistended, normoactive bowel sounds, soft to palpation, non-tender and non-distended Extremity Extremity Narrative: No lower extremity edema was noted, patient was not ambulated at the time of my examination Skin no rashes or lesions noted General Skin Exam: no breakdown Neuro oriented x3, CN's II-XII intact bilaterally, moves all extremities, no focal motor deficits and no sensory deficits noted Sensorium / Orientation: awake, alert, oriented to person, oriented to place and oriented to time Speech: speech normal Psych affect normal Assessment & Plan Assessment/Plan (1) Avascular necrosis of femur head, left: PLAN: Plan 1. Avascular necrosis of the left femur with chronic pain and inability to ambulate-patient is being seen by PT and OT, patient remains on OxyContin and IV corticosteroids, we will await placement in nursing home facility early next week. Increase Oxycontin to 20 mg b.id.for pain controlled. #2 rectal cancer-complicates care, medical course, recovery, and prognosis #3 coronary artery disease-patient is on Plavix currently #4 essential hypertension-patient is on lisinopril #5 hypothyroidism-patient is on levothyroxine currently #6 severe protein and caloric chronic malnutrition-related to the left hip pain and inadequate energy intake as evidenced by p.o. intake meeting less than 50% of estimated calorie and protein needs and 10.4 pound weight loss x6 months- liberal regular diet will be continued, Ensure plus high-protein with meals 3 times daily will be given to the patient Total clinical time spent by myself addressing the patient's medical issues, reviewing all of her data, and collaborating with patient's care team: 35 minutes Charges/Coding Visit Charges Inpatient E&M: 58438 Subs Hosp L2
[2022-04-13] MEDS: Bisacodyl 5 MG Tablet 10 MG PO (10:41)
[2022-04-13] MEDS: Polyethylene Glycol 3350 17 GM PACKET PO (10:41)
[2022-04-13] MEDS: hydroCHLOROthiazide 12.5mg 12.5 MG PO (10:41)
[2022-04-13] MEDS: oxyCODONE 5 MG Tablet PO ×2 (10:50→16:14)
[2022-04-13 14:24] VITALS: BP 186/75; PULSE 66; RESP 18; TEMP 36.8; O2SAT 96
[2022-04-13] MEDS: amLODIPine 5 MG Tablet PO (18:15)
[2022-04-13 18:17] VITALS: BP 194/61; PULSE 68; RESP 16; TEMP 36.8; O2SAT 96
[2022-04-13 18:54] VITALS: BP 188/62; PULSE 65; RESP 16; TEMP 36.8; O2SAT 96
[2022-04-13 21:03] VITALS: BP 168/74; PULSE 65; RESP 18; TEMP 36.8; O2SAT 95
[2022-04-13] MEDS: Atorvastatin Calcium 40 MG Tablet PO (21:06)
[2022-04-13] MEDS: traZODone 100 MG Tablet PO (21:07)
[2022-04-13] MEDS: oxyCODONE HCl Cr 10 MG Tablet 20 MG PO (21:07)
[2022-04-14 03:16] VITALS: BP 188/59; PULSE 64; RESP 18; TEMP 36.7; O2SAT 94
[2022-04-14 04:22] VITALS: BP 179/67; PULSE 64
[2022-04-14] MEDS: hydrALAZINE 20 MG/ML Vial 5 MG IV (04:22)
[2022-04-14] MEDS: 0.9% Saline Lock 10 ML Syringe IV ×3 (04:24→13:37)
[2022-04-14 06:27] VITALS: BP 178/55; PULSE 56; RESP 18; TEMP 36.8; O2SAT 93
[2022-04-14] MEDS: Acetaminophen 500 MG Tablet 1000 MG PO ×2 (06:29→13:38)
[2022-04-14 08:27] VITALS: BP 147/67; PULSE 60; RESP 15; TEMP 36.8; O2SAT 92
[2022-04-14] MEDS: LORazepam 1 MG Tablet PO ×3 (08:32→16:48)
[2022-04-14] MEDS: Gabapentin 100 MG Capsule 200 MG PO ×3 (08:32→16:48)
[2022-04-14] MEDS: Polyethylene Glycol 3350 17 GM PACKET PO (08:33)
[2022-04-14] MEDS: hydroCHLOROthiazide 12.5mg 12.5 MG PO (08:33)
[2022-04-14] MEDS: Enoxaparin 40 MG/0.4 ML Syringe SC (08:33)
[2022-04-14] MEDS: amLODIPine 5 MG Tablet PO (08:34)
[2022-04-14] MEDS: Tolterodine Tartrate 2 MG CAP.SA PO (08:34)
[2022-04-14] MEDS: Clopidogrel Bisulfate 75 MG Tablet PO (08:34)
[2022-04-14] MEDS: Pantoprazole Sodium 40 MG Tablet PO (08:34)
[2022-04-14] MEDS: buPROPion (SR) 100 MG TABLET.SA PO (08:35)
[2022-04-14] MEDS: Lisinopril 40 MG Tablet PO (08:35)
[2022-04-14] MEDS: Citalopram 40 MG TABLET PO (08:35)
[2022-04-14] MEDS: Atenolol 50 MG Tablet PO (08:36)
[2022-04-14] MEDS: oxyCODONE HCl Cr 10 MG Tablet 20 MG PO (08:40)
--- NOTE | 2022-04-14 09:59 | CASEMGMT ---
LCO sent updates to [facility] via [employer]. Awaiting pre-cert. LOC also received a voice mail from patient's daughter Shyanne requesting a return call. Fern SHELTON
--- NOTE | 2022-04-14 10:59 | CASEMGMT ---
LOC called patient's daughter Shyanne back. LOC introduced self and role at [facility] [place]. Shyanne expressed frustration that patient switched her insurance to a part C plan. Shyanne appeared to be overwhelmed and frustrated with patient and the lack of help she is able to get. SW listened and provided support. LOC explained that right now we are waiting on insurance to see if they will approve or deny long term stay. LOC explained if she is denied she could go private pay which would be around $280 to $350 or so a day. LOC also explained home health could be set up. Shyanne said they don't come out. Shyanne said patient had home health and the nurse came out and patient told her she is fine and takes care of her own medications. Per Shyanne they never came out again. SW asked if she is talking about home health or Palliative care. Shyanne said she was not sure. LOC also explained that unless a physician deems patient incompetent of making her own decisions patient cannot be made to do anything. Patient's daughter understands this. LOC suggested Shyanne call [place] [employer] [facility] [employer] ([employer]) and see if patient can drop her advantage plan and go back to Medicare. LOC told her SW is pretty sure this is an option until May 09. LOC let Shyanne know SW will let her know when we hear from insurance. Fern SHELTON
[2022-04-14] MEDS: oxyCODONE 5 MG Tablet PO (11:39)
--- NOTE | 2022-04-14 13:15 | PN_ITS ---
Subjective Subjective Patient seen and examined. Still complaining of pain in her left hip. She said pain was worse with movement. She denied any fever, chills, nausea vomiting or any other symptoms. Review of systems otherwise negative. He has remained hemodynamically stable. Objective Data Objective Data Vital Signs: Vital Signs Temp Pulse Resp BP Pulse Ox O2 Del Method FiO2 98.2 F 60 15 147/67 H 92 Room Air 95 04/14/22 08:27 04/14/22 08:27 04/14/22 08:27 04/14/22 08:27 04/14/22 08:27 04/14/22 08:30 04/12/22 13:45 Oxygen Delivery Method Room Air Weight: 132 lb 11.492 oz Body Mass Index (BMI) 25.0 Intake & Output: Intake and Output for Last 24 Hours 04/12/22 04/13/22 04/14/22 23:59 23:59 23:59 Intake Total 980 / 980 1640 / 1640 595 / 595 Output Total 1475 / 1475 1550 / 1550 1000 / 1000 Balance -495 / -495 90 / 90 -405 / -405 Medical Nutrition Assessment Dietitian: Malnutrition Criteria Met Start: 04/11/22 11:51 Freq: Status: Active Protocol: Document 04/14/22 12:42 RMA (Rec: 04/14/22 12:42 RMA [id number]) Nutrition Malnutrition Evidence of Malnutrition Exists Yes Malnutrition (severe): Chronic Evidenced By Suboptimal Energy Intake ( Severe),Weight Loss (Severe) Clinical Problem Chronic Disease or Condition Related Malnutrition Etiology Severe protein-calorie malnutrition in the context of chronic disease related to inadequate oral intake Signs/Symptoms as evidenced by oral intake meeting less than 50% of estimated nutrition needs and approximately 10-12% wt loss x last 6 months Status Active Problem Recommendation Dietitian Recommendations/Changes Will continue liberal regular diet given signs and symptoms of malnutrition. Will continue 120ml vanilla ensure plus high protein with meals. Additional ONS as needed if PO regresses at meals. Lab / Micro Data Result Diagrams: 04/11/22 04:19 04/11/22 04:19 Physical Exam Const alert, oriented x3 and no apparent distress General Appearance: cooperative HEENT normocephalic, head/scalp atraumatic and moist oral mucous membranes Eyes PERRL and EOMs intact bilaterally Resp normal respiratory effort, normal air movement and clear to auscultation bilat erally Cardio regular rate, regular rhythm, S1 normal heart sound, S2 normal heart sound and no murmurs GI normal to inspection, nondistended, normoactive bowel sounds, soft to palpation, non-tender and non-distended Extremity Extremity Narrative: tenderness with movement of LLE Neuro CN's II-XII intact bilaterally and no focal motor deficits Psych thought process normal Assessment & Plan Assessment/Plan (1) Avascular necrosis of femur head, left: PLAN: Plan #LLE pain due to avascular necrosis of the left femoral head * Still complains of pain in the left femur. This is chronic. * On OxyContin. PT OT on board. Fall precautions. * #CAD: Currently on Plavix and high intensity statin #Hypothyroidism: On Synthroid #History of rectal cancer: Stable.to follow up at [facility] on outpatient basis. She is s/p neoadjuvant chemotherapy #Benign essential hypertension: On lisinopril #Severe protein calorie malnutrition: * Due to decreased oral intake with p.o. intake meeting less than 50% of estimated calorie and protein needs and 10.4 pound weight loss over 6 months. * Nutrition on board. On liberal salt diet and Ensure plus high-protein supplements. * DVT prophylaxis: Lovenox Charges/Coding Visit Charges Inpatient E&M: 86618 Subs Hosp L2
[2022-04-14 15:11] VITALS: BP 133/61; PULSE 63; RESP 14; TEMP 36.9; O2SAT 95
--- NOTE | 2022-04-14 15:53 | CASEMGMT ---
Patient was approved SW notified physician. SW also called and left a message for patient's daughter. Plan: d/c to [facility] under skilled level of care on a convalescent stay. Physicians will transport patient. Fern SHELTON
--- NOTE | 2022-04-14 16:53 | TREXTCAR_ITS ---
Diet Diet Order/Speech Therapy: 04/11/22 10:43 Diet: Regular - General Food consistency:: Regular Liquid Consistency:: Regular/Thin Type of Dietary Supplement:: Ensure Plus High Protein Is pt able to select menu?: Yes Diet Comments: 120 ml vanilla ensure plus high protein tid w/ meals Routine Orders/Code Status Enema Type: Fleetz Enema Frequency: Daily PRN Suppository Type: Dulcolax 10mg Suppository Frequency: Daily PRN O2 Frequency: PRN Keep PO Greater than or Equal to (%): 90 Therapies Weight Bearing: Weight bearing as tolerated Physical Therapy: Eval and Treat Occupational Therapy: Eval and Treat Problem/Diagnosis (1) Avascular necrosis of femur head, left: Status: Acute Code(s): M87.052 - Idiopathic aseptic necrosis of left femur Plan #LLE pain due to avascular necrosis of the left femoral head * Still complains of pain in the left femur. This is chronic. * On OxyContin. PT OT on board. Fall precautions. * #CAD: Currently on Plavix and high intensity statin #Hypothyroidism: On Synthroid #History of rectal cancer: Stable.to follow up at [facility] on outpatient basis. She is s/p neoadjuvant chemotherapy #Benign essential hypertension: On lisinopril #Severe protein calorie malnutrition: * Due to decreased oral intake with p.o. intake meeting less than 50% of estimated calorie and protein needs and 10.4 pound weight loss over 6 months. * Nutrition on board. On liberal salt diet and Ensure plus high-protein supplements. * DVT prophylaxis: Lovenox Allergies/Procedures Done in Hospital Allergies morphine Allergy (Verified 02/28/22 13:17) PT UNSURE Penicillins Allergy (Verified 02/28/22 13:17) Hives tramadol HCl [From Ultram] Allergy (Verified 02/28/22 13:17) PT UNSURE bupropion [From Wellbutrin] Adverse Reaction (Verified 02/28/22 13:17) hallucinations Procedures: None Type of Care/Length of Stay Estimated LOS: Convalescent Care Less Than 30 days Type of Care Needed: Skilled Rehab Potential: Fair Prognosis: Fair Additional Orders/Day of Discharge Day of Discharge: 04/14/22 Dietary and Speech Recommendations Dietitian Recommendations/Changes: Will continue liberal regular diet given signs and symptoms of malnutrition. Will continue 120ml vanilla ensure plus high protein with meals. Additional ONS as needed if PO regresses at meals. Discharge Plan Admission Admit Date/Time: 04/10/22 20:33 Primary Reason for Your Visit: avascular necrosis of left hip Attending Provider: Makeda Ayala Primary Care Provider: Zully Rojas Consulting Providers: Raz Denise ; Natasha Purdy ; Christian King Instructions Patient Instructions: Lower Body Exercises: Hip Flexor, OA Hip Discharge Orders/Prescriptions Prescriptions: New oxycodone 5 mg tablet 5 mg PO Q6H PRN (Reason: pain) 5 Days Qty: 20 0RF hydrochlorothiazide 12.5 mg Capsule 12.5 mg PO DAILY Qty: 30 1RF oxycodone [OxyContin] 10 mg Tablet,Oral Only,Ext.Rel.12 Hr 20 mg PO BID 5 Days Qty: 20 0RF Continued albuterol sulfate 0.63 mg/3 mL solution for nebulization 0.63 mg INHALATION Q4H PRN (Reason: Congestion) levothyroxine 75 MCG tablet 75 mcg PO QODAY citalopram 40 mg tablet 40 mg PO DAILY Rx Instructions: 40 mg PO 1 in am atenolol 50 MG tablet 50 mg PO DAILY atorvastatin 40 MG tablet 40 mg PO DAILY lorazepam 1 MG tablet 1 mg PO 4X/DAY Rx Instructions: takes at 0800, 1200, 1600, 2000 bupropion HCl 100 MG tablet 100 mg PO DAILY pantoprazole 40 MG tablet 40 mg PO BID metoclopramide HCl [Reglan] 5 mg tablet 5 mg PO DAILY PRN (Reason: nausea and vomiting) Qty: 10 0RF gabapentin 100 mg capsule 200 mg PO 4X/DAY Label Comments: Take 2 capsules by mouth three times daily for 180 days. trazodone 100 mg tablet 100 mg PO QHS Label Comments: TAKE 1 TABLET BY MOUTH EVERY DAY AT BEDTIME oxybutynin chloride 5 mg tablet extended release 24hr 5 mg PO DAILY Label Comments: Take 1 tablet by mouth once daily. clopidogrel 75 mg Tablet 75 mg PO DAILY Qty: 30 0RF meclizine 25 mg tablet 25 mg PO DAILY PRN (Reason: dizziness) Qty: 30 0RF lisinopril 20 mg tablet 20 mg PO DAILY Label Comments: Take 1 tablet by mouth once daily. Referrals / Follow Up: Zully Rojas MD [Primary Care Provider] - Within 2 Weeks Raz Denise MD [Med Staff - Active Staff] - Within 2 Weeks Disposition Disposition (needs filled in before D/C Order can be placed): [facility]
--- NOTE | 2022-04-14 16:54 | DS.PCM_ITS ---
Providers Date of Admission: 04/10/22 Date of Discharge: 04/14/22 Primary Care Physician: Dr. Zully Rojas MD Consultations 04/10/22 21:56 Consult: Orthopedics Routine Consulting Provider: Raz Denise Reason for Consult: L femoral head AVN EMERGENT Consult: No MD Notified: Yes Date Notified: 04/10/22 Time Notified: 20:35 Method of Notification: ED Physician Initiated Reason For Visit: L FEMORAL HEAD AVN Diagnosis Discharge Diagnosis (1) Avascular necrosis of femur head, left: Status: Acute Code(s): M87.052 - Idiopathic aseptic necrosis of left femur Plan #LLE pain due to avascular necrosis of the left femoral head * Still complains of pain in the left femur. This is chronic. * On OxyContin. PT OT on board. Fall precautions. * #CAD: Currently on Plavix and high intensity statin #Hypothyroidism: On Synthroid #History of rectal cancer: Stable.to follow up at [facility] on outpatient basis. She is s/p neoadjuvant chemotherapy #Benign essential hypertension: On lisinopril #Severe protein calorie malnutrition: * Due to decreased oral intake with p.o. intake meeting less than 50% of estimated calorie and protein needs and 10.4 pound weight loss over 6 months. * Nutrition on board. On liberal salt diet and Ensure plus high-protein supplements. * DVT prophylaxis: Lovenox Medications at Discharge Home Medications levothyroxine 75 mcg tablet 75 mcg PO QODAY thyroid 09/06/17 citalopram 40 mg tablet 40 mg PO DAILY depression 12/18/17 atenolol 50 mg tablet 50 mg PO DAILY heart rate 01/05/18 atorvastatin 40 mg tablet 40 mg PO DAILY cholesterol 01/05/18 lorazepam 1 mg tablet 1 mg PO 4X/DAY anxiety 06/28/18 albuterol sulfate 0.63 mg/3 mL solution for nebulization 0.63 mg inhalation Q4H PRN Congestion 07/14/18 bupropion HCl 100 mg tablet 100 mg PO DAILY mood 01/16/19 pantoprazole 40 mg tablet,delayed release 40 mg PO BID gerd 01/16/19 metoclopramide HCl 5 mg tablet (Reglan) 5 mg PO DAILY PRN nausea and vomiting #10 tabs 06/04/21 gabapentin 100 mg capsule 200 mg PO 4X/DAY pain 10/08/21 oxybutynin chloride 5 mg tablet,extended release 24 hr 5 mg PO DAILY bladder 10/08/21 trazodone 100 mg tablet 100 mg PO QHS sleep 10/08/21 clopidogrel 75 mg tablet 75 mg PO DAILY #30 tabs 10/21/21 meclizine 25 mg tablet 25 mg PO DAILY PRN dizziness #30 tabs 02/28/22 lisinopril 20 mg tablet 20 mg PO DAILY BP 04/10/22 hydrochlorothiazide 12.5 mg capsule 12.5 mg PO DAILY #30 caps 04/14/22 oxycodone 10 mg tablet,crush resistant,extended release 12 hr (OxyContin) 20 mg PO BID 5 days #20 tabs 04/14/22 oxycodone 5 mg tablet 5 mg PO Q6H PRN pain 5 days #20 tabs 04/14/22 Hospital Course Operations None Summary of Care Provided Minutes Spent on Discharge: 45 Hospital Course: Patient is a 76-year-old female with past medical history as outlined was admitted through the ED with a complaint of mechanical fall at home after she lost her balance. She fell hard on her buttocks and landed very hard on her left lower extremity which bent underneath her. She was unable to weight-bear on the left lower extremity. Pain gradually worsened so she came into the ED. Patient was being treated for rectal cancer and had been following up at [facility] for possible surgical procedure after neoadjuvant chemo. Imaging done showed possible avascular necrosis of the left femoral head. CT of the left lower extremity showed deformity of the left femoral head with subchondral cystic changes that was suggestive of avascular necrosis as well as subchondral geode is in the superior lateral aspect of the acetabulum with a mild degree of joint space narrowing. She was admitted and managed for debility due to left lower extremity avascular necrosis. TOT was ordered. Orthopedic surgery was consulted and recommended conservative management. Patient was placed on oxycodone and subsequently needed OxyContin as well to help with her pain. She worked with physical therapy and was deemed as needing skilled care. She was discharged to long term home on 04/14/2022. She was discharged with a prescription for p.o. oxycodone 5 mg every 6 hours as needed for 5 days for total of 20 tablets as well as MS Contin 10 mg twice daily for 5 days with a total of 20 tablets. She is follow-up with her primary care doctor within 1 to 2 weeks and follow-up with orthopedic surgery. OARRS score was checked and no red flags were seen. Patient seen and examined prior to discharge. She still complained of pain in her left lower extremity. She denied any fever, chills, nausea vomiting or any other symptoms. Review of systems otherwise negative. Physical Exam Const alert, oriented x3, no apparent distress and well nourished Constitutional Narrative: Patient appears older than her stated age General Appearance: cooperative, well kempt and well developed Orientation / Consciousness: awake, oriented to person, oriented to place and oriented to time HEENT normocephalic, head/scalp atraumatic and moist oral mucous membranes Eyes PERRL, EOMs intact bilaterally and conjunctivae normal Eyes Narrative: No scleral icterus Neck no lymphadenopathy, supple, no JVD, thyroid normal and no carotid bruits Neck Narrative: Trachea midline, no thyroid enlargement General: trachea midline Resp normal respiratory effort, normal air movement, no retractions, no use of accessory muscles and clear to auscultation bilaterally Resp Narrative: Diffusely diminished with few scattered end expiratory wheeze Auscultation: Negative for rales, rhonchi or wheezes Cardio regular rate, regular rhythm, S1 normal heart sound, S2 normal heart sound, no murmurs, no rub, no gallops and no clicks GI normal to inspection, nondistended, normoactive bowel sounds, soft to palpation, non-tender and non-distended Extremity no clubbing, cyanosis or edema Extremity Narrative: tenderness with movement of LLE Skin no rashes or lesions noted General Skin Exam: no breakdown Neuro oriented x3, CN's II-XII intact bilaterally, moves all extremities, no focal motor deficits and no sensory deficits noted Sensorium / Orientation: awake, alert, oriented to person, oriented to place and oriented to time Speech: speech normal Psych thought process normal and affect normal Medical Records Data Medical Nutrition Assessment Dietitian: Malnutrition Criteria Met Start: 04/11/22 11:51 Freq: Status: Active Protocol: Document 04/14/22 12:42 RMA (Rec: 04/14/22 12:42 RMA [id number]) Nutrition Malnutrition Evidence of Malnutrition Exists Yes Malnutrition (severe): Chronic Evidenced By Suboptimal Energy Intake ( Severe),Weight Loss (Severe) Clinical Problem Chronic Disease or Condition Related Malnutrition Etiology Severe protein-calorie malnutrition in the context of chronic disease related to inadequate oral intake Signs/Symptoms as evidenced by oral intake meeting less than 50% of estimated nutrition needs and approximately 10-12% wt loss x last 6 months Status Active Problem Recommendation Dietitian Recommendations/Changes Will continue liberal regular diet given signs and symptoms of malnutrition. Will continue 120ml vanilla ensure plus high protein with meals. Additional ONS as needed if PO regresses at meals. Weight / BMI Weight Weight: 132 lb 11.492 oz Body Mass Index (BMI) 25.0 ABG / Lab / Microbiology Data Result Diagrams: 04/11/22 04:19 04/11/22 04:19 D/C Instructions Discharge Diet: Low fat / Low cholesterol Discharge Activity: Return to Normal Activity Weight Bearing Status: Weight bearing as tolerated Call your doctor if you observe: Fever of 101 or Higher, Dizziness, Swelling in the ankles, Chest pain and Increased palpitations (irregular heartbeat) Meaningful Use Info Meaningful Use Diagnoses (Choose all that apply): None applicable Discharge Plan Admission Admit Date/Time: 04/10/22 20:33 Primary Reason for Your Visit: avascular necrosis of left hip Attending Provider: Makeda Ayala Primary Care Provider: Zully Rojas Consulting Providers: Raz Denise ; Natasha Purdy ; Christian King Instructions Patient Instructions: Lower Body Exercises: Hip Flexor, OA Hip Discharge Orders/Prescriptions Prescriptions: New oxycodone 5 mg tablet 5 mg PO Q6H PRN (Reason: pain) 5 Days Qty: 20 0RF hydrochlorothiazide 12.5 mg Capsule 12.5 mg PO DAILY Qty: 30 1RF oxycodone [OxyContin] 10 mg Tablet,Oral Only,Ext.Rel.12 Hr 20 mg PO BID 5 Days Qty: 20 0RF Continued albuterol sulfate 0.63 mg/3 mL solution for nebulization 0.63 mg INHALATION Q4H PRN (Reason: Congestion) levothyroxine 75 MCG tablet 75 mcg PO QODAY citalopram 40 mg tablet 40 mg PO DAILY Rx Instructions: 40 mg PO 1 in am atenolol 50 MG tablet 50 mg PO DAILY atorvastatin 40 MG tablet 40 mg PO DAILY lorazepam 1 MG tablet 1 mg PO 4X/DAY Rx Instructions: takes at 0800, 1200, 1600, 2000 bupropion HCl 100 MG tablet 100 mg PO DAILY pantoprazole 40 MG tablet 40 mg PO BID metoclopramide HCl [Reglan] 5 mg tablet 5 mg PO DAILY PRN (Reason: nausea and vomiting) Qty: 10 0RF gabapentin 100 mg capsule 200 mg PO 4X/DAY Label Comments: Take 2 capsules by mouth three times daily for 180 days. trazodone 100 mg tablet 100 mg PO QHS Label Comments: TAKE 1 TABLET BY MOUTH EVERY DAY AT BEDTIME oxybutynin chloride 5 mg tablet extended release 24hr 5 mg PO DAILY Label Comments: Take 1 tablet by mouth once daily. clopidogrel 75 mg Tablet 75 mg PO DAILY Qty: 30 0RF meclizine 25 mg tablet 25 mg PO DAILY PRN (Reason: dizziness) Qty: 30 0RF lisinopril 20 mg tablet 20 mg PO DAILY Label Comments: Take 1 tablet by mouth once daily. Referrals / Follow Up: Zully Rojas MD [Primary Care Provider] - Within 2 Weeks Raz Denise MD [Med Staff - Active Staff] - Within 2 Weeks Disposition Disposition (needs filled in before D/C Order can be placed): [facility] Charges/Coding Visit Charges Inpatient E&M: 03471 Disch Hosp >30min
--- NOTE | 2022-04-14 17:40 | NURSING ---
spoke with daughter Grazyna she is aware patient is going to [facility] at 6pm
--- NOTE | 2022-04-14 17:47 | NURSING ---
report called to Lisy LOPEZ at [facility]
== END 2022-04-14 18:25 | DRG 553 ==
LOC: ED 18:59 → PCU 20:42
PROVIDERS: Admitting Provider Internal Medicine; Emergency Provider Emergency Medicine; PCP Internal Medicine; Visit Provider Student in an Organized Health Care Education/Training Program
DX: M87.052 Idiopathic aseptic necrosis of left femur (principal); E43 Unspecified severe protein-calorie malnutrition; C20 Malignant neoplasm of rectum; E78.5 Hyperlipidemia, unspecified; D64.9 Anemia, unspecified; E89.0 Postprocedural hypothyroidism; J44.9 Chronic obstructive pulmonary disease, unspecified; I25.10 Atherosclerotic heart disease of native coronary artery without angina pectoris; K21.9 Gastro-esophageal reflux disease without esophagitis; F17.210 Nicotine dependence, cigarettes, uncomplicated; I10 Essential (primary) hypertension; F41.9 Anxiety disorder, unspecified; M16.12 Unilateral primary osteoarthritis, left hip; G47.00 Insomnia, unspecified; F32.A Depression, unspecified; G89.29 Other chronic pain; R32 Unspecified urinary incontinence; Z60.2 Problems related to living alone; Z68.25 Body mass index [BMI] 25.0-25.9, adult; Z95.1 Presence of aortocoronary bypass graft; Z95.5 Presence of coronary angioplasty implant and graft; Z79.02 Long term (current) use of antithrombotics/antiplatelets; Z79.891 Long term (current) use of opiate analgesic; Z79.899 Other long term (current) drug therapy; Z86.73 Personal history of transient ischemic attack (TIA), and cerebral infarction without residual deficits
CPT/HCPCS: 36415; 71045; 72100; 72170; 73552; 73590; 73630; 73700; 80048; 80053; 82306; 82550; 83735; 84100; 84443; 85025; 85610; 93005; 94668; 97110; 97116; 97162; 97166; 97530; 97535; 97802; 97803; 99284; A4216; J2405

== ENCOUNTER 2022-04-19 12:04 | Inpatient (IN) | payer MEDICARE, SELFPAY ==
[2017-12-28 13:50] VITALS: BMI 29.2
[2022-04-19] VITALS (11 sets, daily range): BP systolic 85–121; BP diastolic 48–85; PULSE 60–90; RESP 10–20; TEMP 36.6–37.4; O2SAT 93–100; BMI 34.4; BMI 25.0
--- NOTE | 2022-04-19 12:36 | CT_ITS ---
INDICATION: altered mental status EXAMINATION: CT BRAIN - CT Head or Brain W/O Contrast Injection TECHNIQUE: Multiple axial images were obtained of the head without intravenous contrast. A radiation dose optimization technique was used for this scan. IV Contrast dosage and agent: None. COMPARISON: August 02, 2021 FINDINGS: BRAIN PARENCHYMA: No intra- or extra-axial hemorrhage. No evidence of acute infarct. No intracranial mass or mass effect. There are patchy areas of low attenuation within the white matter of the cerebral hemispheres, a nonspecific finding most commonly reflecting small vessel ischemia. There is a stable low-attenuation focus within the right basal ganglia consistent with an old lacunar infarct. There is preservation of the wesley/white matter interface. Posterior fossa structures are unremarkable. CSF SPACES: Appropriate for age. No hydrocephalus. Basal cisterns are patent. CALVARIUM, SKULL BASE, PARANASAL SINUSES AND MASTOID AIR CELLS: There is partial opacification of the ethmoid and right maxillary sinuses consistent with a history of sinusitis. There are stable round opacities within the ethmoid and right maxillary sinus suggestive of mucous retention cysts or polyps. ORBITS: Both globes, extraocular muscles, optic nerves and retrobulbar fat appear unremarkable. CT/Brain/Head without Contrast IMPRESSION: Small vessel ischemia. Old right basal ganglia lacunar infarct. Electronically Signed: Kirsten Harding MD at 15:31 EST ,
[2022-04-19] MEDS: 0.9% Normal Saline 1,000 ML 1000 ML IV (13:01)
[2022-04-19 13:15] LABS: Absolute Lymphocyte Count 1.66 X10^3/uL (0.83-4.51); Absolute Neutrophil Count 12.5 X10^3/uL (2.0-7.7); Basophil# 0.03 X10^3/uL; Basophil% 0.2 % (0-1); Eosinophil# 0.16 X10^3/uL; Hematocrit 33.1 % (37-47); Hemoglobin 10.3 g/dL (12.0-15.0); Lymphocyte # 1.66 X10^3/ul (0.83-4.51); Lymphocyte % 10.6 % (19-41); Mean Corp Hgb Conc 31.1 g/dL (32-36); Mean Corpuscular Hgb 25.7 pg (27.0-32.0); Mean Corpuscular Volume 82.5 fL (81-99); Mean Platelet Vol. 9.8 fl (6.2-12.0); Monocyte# 1.22 X10^3/uL; Monocyte% 7.8 % (0-10); NRBC Flagged by Analyzer 0 % (0-5); Neutrophil # 12.47 X10^3/uL (2.7-7.7); Neutrophil % 79.6 % (47-70); Platelet Count 296 K/mm3 (150-450); RBC Distribution Width CV 16.3 % (11.6-14.6); RBC Distribution Width SD 48.9 fl (35.1-43.9); Red Blood Count 4.01 M/mm3 (4.2-5.4); White Blood Count 15.7 K/mm3 (4.4-11.0)
[2022-04-19 13:43] LABS: Anion Gap 9 (5-15); BUN 61 mg/dL (7-18); BUN/Creat Ratio 12.4 RATIO (10-20); Calcium,Total 7.9 mg/dL (8.5-10.1); Chloride 96 mmol/L (98-107); Creatinine, Serum 4.91 mg/dL (0.55-1.02); EST Glomerular Filtration Rate 9 mL/min (>60); Est Glom Filt Rate - Afr Amer 11 mL/min (>60); Estimated Creatinine Clearance 7.59 ml/min; Glucose 115 mg/dL (74-106); Potassium 4.3 mmol/L (3.5-5.1); Sodium Level 134 mmol/L (136-145); Troponin-I HS 184 pg/mL (3.0-54.0)
--- NOTE | 2022-04-19 13:46 | ED.RN ---
Lab called. Troponin 184. Dr. Purdy notified.
[2022-04-19 13:56] LABS: Bacteria 0 SEEN /hpf (None Seen); Mucous, Urine 0 SEEN /hpf (<or=2+); Red Blood Cells-Urine 0 SEEN /hpf (0-5); Squamous Epithelial Cells - UA 0 SEEN /hpf (5-10); White Blood Cells 0 SEEN /hpf (0-5)
[2022-04-19 13:57] LABS: Color, Urine Yellow (Yellow); Glucose, Dipstick Normal (Normal); Ketone-Dipstick 5 mg/dl (Negative); Leukocyte Esterase-Dipstick 25 /ul (Negative); Nitrite-Dipstick Negative (Negative); Occult Blood-Urine Negative /ul (Negative); Protein-Dipstick 15 mg/dl (Negative); Urine Clarity Clear (Clear); Urine Urobilinogen 1 mg/dl (Normal)
[2022-04-19 14:00] LABS: International Normalized Ratio 1.1; Prothrombin Time (Protime)PT. 13.9 SECONDS (11.7-14.9)
[2022-04-19 14:03] LABS: Urine Bilirubin Dipstick 1 mg/dL (Negative)
--- NOTE | 2022-04-19 14:09 | RAD_ITS ---
STUDY: X-RAY CHEST REASON FOR EXAM: Female, 76 years old. shortness of breath TECHNIQUE: Single AP portable view of the chest. COMPARISON: 04/11/2022 FINDINGS: EKG leads overlie the chest Chronic interstitial changes in both lung cortes without a superimposed acute pulmonary process. There is no demonstrated pleural abnormality. Sternal cerclage wires and vascular clips are present from a prior sternotomy and coronary artery bypass graft procedure (CABG). Normal mediastinum and beverly. Normal visualized pulmonary arteries. Normal visualized aortic arch and descending thoracic aorta. There are diffuse degenerative changes of the visualized thoracic spine. There is degenerative osteoarthritis of the bilateral shoulders. There is no demonstrated abnormality of the visualized soft tissue structures of the upper abdomen. RAD/Chest 1 View (Portable) IMPRESSION: Chronic interstitial changes without a superimposed acute pulmonary process Electronically Signed: Ced Sandoval MD at 14:22 EST ,
--- NOTE | 2022-04-19 14:19 | US_ITS ---
INDICATION: heather EXAMINATION: Ultrasound US Kidney(s) complete (eg, kidneys and bladder) TECHNIQUE: Santamaria scale and color doppler images were obtained of the kidneys. COMPARISON: None. FINDINGS: RIGHT KIDNEY: The right kidney measures 9.4 cm in length. There is no hydronephrosis. No shadowing calculus, focal lesion or perinephric collection is demonstrated. LEFT KIDNEY: The left kidney measures 9.9 cm in length. There is no hydronephrosis. No shadowing calculus, focal lesion or perinephric collection is demonstrated. URINARY BLADDER: There is a Alejo catheter within an incompletely distended urinary bladder. US/Kidney and Bladder IMPRESSION: Within normal limits renal ultrasound. Electronically Signed: Kirsten Harding MD at 15:18 EST ,
[2022-04-19] MEDS: 0.9% Normal Saline 1,000 ML 1500 ML IV (15:02)
--- NOTE | 2022-04-19 15:38 | EX.ED.DYSGE1 ---
HPI <ROSA Barrientos - Last Filed: 04/19/22 15:46> History of Present Illness Chief Complaint: Confusion Narrative Narrative: Patient is a 76-year-old female with history of rectal cancer, CAD, hypertension, history of CVA, COPD who presents to the emergency department for altered mental status, lethargic. Patient was recently here on April 14, 2022, she had a fall was having pain to her hip. CT scan revealed some arthrosclerosis disease. Secondary to difficulty ambulating, she was at a SNF for physical therapy. Per the daughter, the patient has received 0, she also has not been eating and drinking normally. Over the last 24 hours, the patient's been more lethargic with hypotension. PFSH <ROSA Barrientos - Last Filed: 04/19/22 15:46> [facility] Medical History Anemia Anxiety and depression Atherosclerosis of coronary artery bypass graft without angina pectoris Atherosclerosis of coronary artery of [place] heart with angina pectoris Back pain Benzodiazepine dependence CAD (coronary artery disease) Carotid artery stenosis Community acquired pneumonia COPD (chronic obstructive pulmonary disease) COPD (chronic obstructive pulmonary disease) CVA (cerebral vascular accident) DDD (degenerative disc disease), lumbar Depression with anxiety Diastolic dysfunction Elevated troponin Essential (primary) hypertension Guaiac positive stools H/O: pneumonia Hemorrhoids, external History of rectal cancer History of thyroid cancer Hyperlipidemia Hypothyroidism Nicotine dependence Non-rheumatic mitral regurgitation Non-rheumatic tricuspid valve insufficiency Non-ST elevation (NSTEMI) myocardial infarction Obstructive sleep apnea Rectal cancer Secondary pulmonary arterial hypertension TIA (transient ischemic attack) TIA (transient ischemic attack) Home Medications levothyroxine 75 mcg tablet 88 mcg PO DAILY thyroid 09/06/17 [History Last Taken 04/19/22] citalopram 40 mg tablet 40 mg PO DAILY depression 12/18/17 [History Last Taken 04/19/22] atenolol 50 mg tablet 50 mg PO DAILY heart rate 01/05/18 [History Last Taken 04/19/22] atorvastatin 40 mg tablet 40 mg PO QHS cholesterol 01/05/18 [History Last Taken 04/18/22] lorazepam 1 mg tablet 1 mg PO 4X/DAY anxiety 06/28/18 [History Last Taken 04/19/22] albuterol sulfate 0.63 mg/3 mL solution for nebulization 0.63 mg inhalation Q4H PRN Congestion 07/14/18 [History Last Taken 1 Week Ago ~10/01/21] bupropion HCl 100 mg tablet 100 mg PO DAILY mood 01/16/19 [History Last Taken 04/19/22] pantoprazole 40 mg tablet,delayed release 40 mg PO DAILY gerd 01/16/19 [History Last Taken 04/19/22] gabapentin 100 mg capsule 100 mg PO 4X/DAY pain 10/08/21 [History Last Taken 04/18/22] oxybutynin chloride 5 mg tablet,extended release 24 hr 5 mg PO DAILY bladder 10/08/21 [History Last Taken 04/19/22] trazodone 100 mg tablet 100 mg PO QHS sleep 10/08/21 [History Last Taken 04/18/22] clopidogrel 75 mg tablet 75 mg PO DAILY #30 tabs 10/21/21 [Rx Last Taken 04/18/22] meclizine 25 mg tablet 25 mg PO DAILY PRN dizziness #30 tabs 02/28/22 [Rx Last Taken 04/09/22] lisinopril 20 mg tablet 20 mg PO DAILY BP 04/10/22 [History Last Taken 04/19/22] oxycodone 5 mg tablet 5 mg PO Q6H PRN pain 5 days #20 tabs 04/14/22 [Rx Last Taken 04/17/22] hydrochlorothiazide 12.5 mg capsule 12.5 mg PO DAILY water pill 04/19/22 [History Last Taken 04/19/22] oxycodone 10 mg tablet,crush resistant,extended release 12 hr (OxyContin) 20 mg PO BID pain 04/19/22 [History Last Taken 04/19/22] Allergy/AdvReac Type Severity Reaction Status Date / Time morphine Allergy PT UNSURE Verified 04/19/22 12:07 Penicillins Allergy Hives Verified 04/19/22 12:07 tramadol HCl [From Ultram] Allergy PT UNSURE Verified 04/19/22 12:07 bupropion [From Wellbutrin] AdvReac hallucinati Verified 04/19/22 12:07 ons Family History Father Heart disease of heart attack at age 64 Mother Cancer of cancer at age 72 CVA (cerebral vascular accident) Surgical History History of appendectomy History of coronary artery bypass graft x 3 (~2007) History of coronary artery stent placement (10/10/21) History of left heart catheterization (10/10/21) Hx of cholecystectomy Hx of thyroidectomy Presence of stent in coronary artery (~10/10/21) Social History (Updated 04/10/22 @ 20:[address] Natasha Purdy DO) household members: significant other housing: house Smoking Status: Current every day smoker tobacco type: cigarettes details: Patient denies alcohol use substance use type: does not use ROS <ROSA Barrientos - Last Filed: 04/19/22 15:46> ROS ED ROS Narrative Constitutional: Negative for fever, chills, weight loss. Positive for weakness Eyes: Negative for vision loss, vision change, double vision ENT: Negative for any sore throat, ear pain, congestion Cardiovascular: Negative for any chest pain, tightness, palpitations Respiratory: Negative for any cough, sputum production, hemoptysis, dyspnea, dyspnea on exertion, orthopnea Gastrointestinal: Negative for any abdominal pain, nausea, vomiting, diarrhea, constipation, blood in stool, blood in vomit : Negative for any urinary frequency, dysuria, retention, blood in urine Muscle skeletal: Negative for any muscle joint pain, stiffness, myalgias, arthralgias, neck pain, back pain Neurological: Negative for any headache, syncope, numbness or tingling, dizziness Skin: Negative for any rashes, lumps, itching, abrasions, lacerations Psychiatric: Negative for any depression, anxiety, stress, suicidal ideation, homicidal ideation Hematologic: Negative for any easy bruising, excessive bruising, easy bleeding Allergies: Negative for any eczema, hives, rash Review of symptoms was limited secondary to the patient's lethargy, altered mental status EXAM <ROSA Barrientos - Last Filed: 04/19/22 15:46> Physical Exam Narrative Exam Narrative: Vital signs reviewed. Patient was hypotensive with a blood pressure of 87/67. She is alert and orient x2. However lethargic she does answer to verbal stimuli. HEET: Head normocephalic atraumatic, TMs clear bilaterally. Posterior pharynx is clear, dry mucous membranes. Nares clear bilaterally. Neck: Supple with no lymphadenopathy or tenderness. No signs of meningismus, negative jolt sign. Cardiac: Regular rate and rhythm no murmurs gallops or rubs, equal peripheral pulses bilaterally. Respiratory: Lungs clear to auscultation bilaterally. Diminished bilateral bases. No chest tenderness. Abdomen: Soft, nontender, nondistended. No abdominal bruit or pulsatile masses. No hepatosplenomegaly Extremities: No peripheral edema, no signs of gross trauma or deformity. Active full range of motion of all extremities. Neuro: Cranial nerves II through XII intact, no focal neurological deficits. Skin: Clean dry and intact with no rash, purpura, petechiae, vesicles or pustules. Backs/flank: No CVA tenderness, no midline spinal tenderness, no deformity. Psych: Normal mood and affect. No SI, HI or acute psychosis. Const Vital Signs: 04/19/22 12:07 04/19/22 12:12 04/19/22 13:20 Temperature 97.8 F 97.9 F Temperature Source Temporal Temporal Pulse Rate 65 64 Respiratory Rate 18 18 Respiratory Pattern Normal Blood Pressure 88/48 L 85/66 L Blood Pressure Mean 61 72 Pulse Ox 97 98 Oxygen Delivery Method Nasal Cannula Nasal Cannula Oxygen Flow Rate (L/min) 2 04/19/22 14:23 04/19/22 14:45 04/19/22 15:00 Temperature 98 F 97.9 F Temperature Source Temporal Temporal Pulse Rate 84 62 63 Respiratory Rate 18 18 18 Respiratory Pattern Blood Pressure 97/54 L 97/54 L 87/67 L Blood Pressure Mean 68 68 73 Pulse Ox 97 97 97 Oxygen Delivery Method Nasal Cannula Nasal Cannula Nasal Cannula Oxygen Flow Rate (L/min) 2 04/19/22 15:15 04/19/22 15:33 Temperature 97.9 F 98.8 F Temperature Source Temporal Temporal Pulse Rate 60 61 Respiratory Rate 20 H 10 L Respiratory Pattern Blood Pressure 87/67 L 100/85 H Blood Pressure Mean 73 90 Pulse Ox 98 97 Oxygen Delivery Method Room Air Oxygen Flow Rate (L/min) <Dr. Orlando Mooney, DO - Last Filed: 04/19/22 21:27> Physical Exam Const Vital Signs: 04/19/22 12:07 04/19/22 12:12 04/19/22 13:20 Temperature 97.8 F 97.9 F Temperature Source Temporal Temporal Pulse Rate 65 64 Respiratory Rate 18 18 Respiratory Pattern Normal Blood Pressure 88/48 L 85/66 L Blood Pressure Mean 61 72 Pulse Ox 97 98 Oxygen Delivery Method Nasal Cannula Nasal Cannula Oxygen Flow Rate (L/min) 2 04/19/22 14:23 04/19/22 14:45 04/19/22 15:00 Temperature 98 F 97.9 F Temperature Source Temporal Temporal Pulse Rate 84 62 63 Respiratory Rate 18 18 18 Respiratory Pattern Blood Pressure 97/54 L 97/54 L 87/67 L Blood Pressure Mean 68 68 73 Pulse Ox 97 97 97 Oxygen Delivery Method Nasal Cannula Nasal Cannula Nasal Cannula Oxygen Flow Rate (L/min) 2 04/19/22 15:15 04/19/22 15:33 Temperature 97.9 F 98.8 F Temperature Source Temporal Temporal Pulse Rate 60 61 Respiratory Rate 20 H 10 L Respiratory Pattern Blood Pressure 87/67 L 100/85 H Blood Pressure Mean 73 90 Pulse Ox 98 97 Oxygen Delivery Method Room Air Oxygen Flow Rate (L/min) MDM <ROSA Barrientos - Last Filed: 04/19/22 15:46> [facility] Lab Data Labs: Laboratory Results - last 24 hr 04/19/22 04/19/22 04/19/22 13:00 13:00 13:00 WBC 15.7 H RBC 4.01 L Hgb 10.3 L Hct 33.1 L MCV 82.5 MCH 25.7 L MCHC 31.1 L RDW Std Deviation 48.9 H RDW Coeff of John 16.3 H Plt Count 296 MPV 9.8 Immature Gran % (Auto) 0.800 Neut % (Auto) 79.6 H Lymph % (Auto) 10.6 L [place] % (Auto) 7.8 Eos % (Auto) 1.0 Baso % (Auto) 0.2 Absolute Neuts (auto) 12.5 H Absolute Lymphs (auto) 1.66 Nucleated RBC % 0 PT INR Sodium 134 L Potassium 4.3 Chloride 96 L Carbon Dioxide 29.0 Anion Gap 9 BUN 61 H Creatinine 4.91 H Estim Creat Clear Calc 7.59 Est GFR (MDRD) Af Amer 11 L Est GFR (MDRD) Non-Af 9 L BUN/Creatinine Ratio 12.4 Glucose 115 H Lactic Acid 1.0 Calcium 7.9 L Total Creatine Kinase Troponin I High Sens 184 H* Urine Color Urine Clarity Urine pH Ur Specific [place] Urine Protein Urine Glucose (UA) Urine Ketones Urine Occult Blood Urine Nitrite Urine Bilirubin Urine Urobilinogen Ur Leukocyte Esterase Urine RBC Urine WBC Ur Squamous Epith Cells Urine Bacteria Urine Mucus 04/19/22 04/19/22 04/19/22 13:00 13:48 15:52 WBC RBC Hgb Hct MCV MCH MCHC RDW Std Deviation RDW Coeff of John Plt Count MPV Immature Gran % (Auto) Neut % (Auto) Lymph % (Auto) [place] % (Auto) Eos % (Auto) Baso % (Auto) Absolute Neuts (auto) Absolute Lymphs (auto) Nucleated RBC % PT 13.9 INR 1.1 Sodium Potassium Chloride Carbon Dioxide Anion Gap BUN Creatinine Estim Creat Clear Calc Est GFR (MDRD) Af Amer Est GFR (MDRD) Non-Af BUN/Creatinine Ratio Glucose Lactic Acid Calcium Total Creatine Kinase Troponin I High Sens 158 H* Urine Color Yellow Urine Clarity Clear Urine pH 5.0 Ur Specific [place] 1.020 Urine Protein 15 H Urine Glucose (UA) Normal Urine Ketones 5 H Urine Occult Blood Negative Urine Nitrite Negative Urine Bilirubin 1 H Urine Urobilinogen 1 H Ur Leukocyte Esterase 25 H Urine RBC 0 SEEN Urine WBC 0 SEEN Ur Squamous Epith Cells 0 SEEN Urine Bacteria 0 SEEN Urine Mucus 0 SEEN 04/19/22 15:52 WBC RBC Hgb Hct MCV MCH MCHC RDW Std Deviation RDW Coeff of John Plt Count MPV Immature Gran % (Auto) Neut % (Auto) Lymph % (Auto) [place] % (Auto) Eos % (Auto) Baso % (Auto) Absolute Neuts (auto) Absolute Lymphs (auto) Nucleated RBC % PT INR Sodium Potassium Chloride Carbon Dioxide Anion Gap BUN Creatinine Estim Creat Clear Calc Est GFR (MDRD) Af Amer Est GFR (MDRD) Non-Af BUN/Creatinine Ratio Glucose Lactic Acid Calcium Total Creatine Kinase 2627 H Troponin I High Sens Urine Color Urine Clarity Urine pH Ur Specific [place] Urine Protein Urine Glucose (UA) Urine Ketones Urine Occult Blood Urine Nitrite Urine Bilirubin Urine Urobilinogen Ur Leukocyte Esterase Urine RBC Urine WBC Ur Squamous Epith Cells Urine Bacteria Urine Mucus Radiography Diagnostic Testing: Clinical Impression(s) from Imaging Studies Brain CT 04/19/22 12:36 IMPRESSION: Small vessel ischemia. Old right basal ganglia lacunar infarct. Electronically Signed: Kirsten Harding MD at 15:31 EST , Chest X-Ray 04/19/22 14:09 IMPRESSION: Chronic interstitial changes without a superimposed acute pulmonary process Electronically Signed: Ced Sandoval MD at 14:22 EST , Renal Ultrasound 04/19/22 14:19 IMPRESSION: Within normal limits renal ultrasound. Electronically Signed: Kirsten Harding MD at 15:18 EST , Differential Diagnosis Chest pain/SOB: pneumonia Differential Diagnosis: Urinary tract infection Differential Diagnosis: COVID/flu Management Discussion w/another healthcare provider: Hospitalist and Mobile Ui Designer Treatment and Re-Evaluation :: Patient appears ill appearing, patient is hypotensive, lethargic, altered mental status with alert and orient x2 which is normal alert and orient x3. Patient received a full sepsis work-up with 2 sets of blood cultures. Patient CT of the brain yielded no acute findings, ischemic change as well as an old right basal ganglia lacunar infarct. Patient received a chest x-ray, this showed chronic no signs of changes no acute pulmonary process. Patient's urinalysis was negative for infection. Patient's CBC shows a leukocytosis white blood count of 15.7, patient slightly anemic at 10.3 however this is baseline. Patient's chemistries had multiple abnormalities, no significant was a creatinine of 4.91. On April 16, 2022 it was 0.94, this is an acute change, acute kidney failure. Acute kidney injury. Patient's initial troponin was 184. I do believe this is secondary to renal failure, patient does not complain of chest pain, patient recently had stents in October 2021. Patient has been taking her medications as prescribed. Patient EKG was unremarkable. Secondary to the renal failure, I did speak with nephrology who will follow the patient. They did order a renal ultrasound, this showed it to be within normal limits. Secondary the patient's lethargy, acute kidney injury, metabolic encephalopathy, lethargic, the patient will need to be admitted to the hospital. I spoke with the hospitalist, made them aware that nephrology is on board. At this time, no antibiotics be given secondary to no source, the leukocytosis could be reactive. I with the patient's is lethargic, encephalopathic secondary to the hyper uremia. Patient stable for admission. Patient received 2.5 L of normal saline. This did increase her blood pressure. Patient's mental status remains the same. Patient maintains her own airway. She is arousable by verbal stimuli. <Dr. Orlando Mooney, DO - Last Filed: 04/19/22 21:27> MDM MDM Narrative Medical decision making narrative: Interventions / MDM: Differential diagnosis: Pneumonia, UTI, intracranial hemorrhage, electrolyte abnormalities, dehydration Diagnosis considered but do not suspect: N/A My EKG interpretation: Sinus rate of 64, nonspecific ST depression lateral leads there is no elevations this is all less than 1 mm. Imaging independently reviewed and interpreted by myself: CT brain: Chronic atrophy, no intracranial hemorrhage. remote infarcts noted. Also read by radiology. Chest x-ray: No acute process. External documents reviewed: N/A Test considered but not ordered:N/A ED course: Attending note: Patient seen and evaluated with battery mechanic. I perform my own [id number] evaluation. I agree with the plan of work-up. Presenting from rehab for increasing altered mental status. Informant from daughter. Patient more altered currently she has been there for 4 days discharged here for hip pain with a AVN noted. She is put on pain medicines. Per daughter there has not been adequate care at the facility. She is concerned decreased p.o. intake and there is been no physical therapy. She has been seeing the patient daily, yesterday started to decline today more altered and wanted the patient evaluate the ED. There is been no cough. Patient normally sharp per daughter. Exam patient with dry mucosal membranes, blood pressure was low on arrival. Was given IV fluids sepsis labs were ordered. After monitoring fluids her blood pressure improved. White count 59 elevated at 4.9 pain with BUN of 61. Potassium 4.3 sodium 134. New changes from 3 days ago creatinine was 0.9. Troponins [address] depression. This likely a type II strain combination of her hypotension and her KRISTIN. Urine negative for and chest x-ray negative for infection. CT brain negative. For trip and eventually was decreased down to 158. We did reach out to supervisor [facility] on-call Dr. Coker updated on concerns he agrees with fluids at this time. Alejo catheter was placed with minimal output therefore not postobstructive KRISTIN. Ultrasound renals were ordered. Patient discussed with hospitalist service for admission. Re-evaluation: Was improving and daughter was updated at bedside. With daughter present evaluation patient sacrum showed no ulcers, there is external hemorrhoids and no prolapse rectum. Disposition discussed with patient/family/significant other: Daughter Case discussed with consulting clinician: Nephrology, Dr. Coker, hospitalist Dr. Lunsford Lab Data Attestation: I reviewed the patient's lab results. Labs: Laboratory Results - last 24 hr 04/19/22 04/19/22 04/19/22 13:00 13:00 13:00 WBC 15.7 H RBC 4.01 L Hgb 10.3 L Hct 33.1 L MCV 82.5 MCH 25.7 L MCHC 31.1 L RDW Std Deviation 48.9 H RDW Coeff of John 16.3 H Plt Count 296 MPV 9.8 Immature Gran % (Auto) 0.800 Neut % (Auto) 79.6 H Lymph % (Auto) 10.6 L [place] % (Auto) 7.8 Eos % (Auto) 1.0 Baso % (Auto) 0.2 Absolute Neuts (auto) 12.5 H Absolute Lymphs (auto) 1.66 Nucleated RBC % 0 PT INR Sodium 134 L Potassium 4.3 Chloride 96 L Carbon Dioxide 29.0 Anion Gap 9 BUN 61 H Creatinine 4.91 H Estim Creat Clear Calc 7.59 Est GFR (MDRD) Af Amer 11 L Est GFR (MDRD) Non-Af 9 L BUN/Creatinine Ratio 12.4 Glucose 115 H Lactic Acid 1.0 Calcium 7.9 L Total Creatine Kinase Troponin I High Sens 184 H* Urine Color Urine Clarity Urine pH Ur Specific [place] Urine Protein Urine Glucose (UA) Urine Ketones Urine Occult Blood Urine Nitrite Urine Bilirubin Urine Urobilinogen Ur Leukocyte Esterase Urine RBC Urine WBC Ur Squamous Epith Cells Urine Bacteria Urine Mucus 04/19/22 04/19/2204/19/23 13:00 13:48 15:52 WBC RBC Hgb Hct MCV MCH MCHC RDW Std Deviation RDW Coeff of John Plt Count MPV Immature Gran % (Auto) Neut % (Auto) Lymph % (Auto) [place] % (Auto) Eos % (Auto) Baso % (Auto) Absolute Neuts (auto) Absolute Lymphs (auto) Nucleated RBC % PT 13.9 INR 1.1 Sodium Potassium Chloride Carbon Dioxide Anion Gap BUN Creatinine Estim Creat Clear Calc Est GFR (MDRD) Af Amer Est GFR (MDRD) Non-Af BUN/Creatinine Ratio Glucose Lactic Acid Calcium Total Creatine Kinase Troponin I High Sens 158 H* Urine Color Yellow Urine Clarity Clear Urine pH 5.0 Ur Specific [place] 1.020 Urine Protein 15 H Urine Glucose (UA) Normal Urine Ketones 5 H Urine Occult Blood Negative Urine Nitrite Negative Urine Bilirubin 1 H Urine Urobilinogen 1 H Ur Leukocyte Esterase 25 H Urine RBC 0 SEEN Urine WBC 0 SEEN Ur Squamous Epith Cells 0 SEEN Urine Bacteria 0 SEEN Urine Mucus 0 SEEN 04/19/22 15:52 WBC RBC Hgb Hct MCV MCH MCHC RDW Std Deviation RDW Coeff of John Plt Count MPV Immature Gran % (Auto) Neut % (Auto) Lymph % (Auto) [place] % (Auto) Eos % (Auto) Baso % (Auto) Absolute Neuts (auto) Absolute Lymphs (auto) Nucleated RBC % PT INR Sodium Potassium Chloride Carbon Dioxide Anion Gap BUN Creatinine Estim Creat Clear Calc Est GFR (MDRD) Af Amer Est GFR (MDRD) Non-Af BUN/Creatinine Ratio Glucose Lactic Acid Calcium Total Creatine Kinase 2627 H Troponin I High Sens Urine Color Urine Clarity Urine pH Ur Specific [place] Urine Protein Urine Glucose (UA) Urine Ketones Urine Occult Blood Urine Nitrite Urine Bilirubin Urine Urobilinogen Ur Leukocyte Esterase Urine RBC Urine WBC Ur Squamous Epith Cells Urine Bacteria Urine Mucus Radiography Diagnostic Testing: Clinical Impression(s) from Imaging Studies Brain CT 04/19/22 12:36 IMPRESSION: Small vessel ischemia. Old right basal ganglia lacunar infarct. Electronically Signed: Kirsten Harding MD at 15:31 EST , Chest X-Ray 04/19/22 14:09 IMPRESSION: Chronic interstitial changes without a superimposed acute pulmonary process Electronically Signed: Ced Sandoval MD at 14:22 EST , Renal Ultrasound 04/19/22 14:19 IMPRESSION: Within normal limits renal ultrasound. Electronically Signed: Kirsten Harding MD at 15:18 EST , <Dr. Orlando Mooney, DO - Last Filed: 04/19/22 21:27> Critical Care Time Critical Care Time: Yes Critical care time (excluding procedures): 30-74 minutes, Discussing w/Patient &/or Family/Larriman Helper, Discussing w/Consultants, Arranging Admission or Transfer, Performing Direct Patient Care at Bedside and - (40 minutes) Discharge Plan Dx/Rx/DC Orders Clinical Impression: Encephalopathy acute, History of rectal cancer, Leukocytosis, KRISTIN (acute kidney injury), Acute uremia, Hypotension, Dehydration Disposition Disposition: Acute Care Hospital [facility] Discharge Date/Time: 04/19/22 16:28
--- NOTE | 2022-04-19 16:06 | PCM.HP.STD ---
HPI - General General Date of Admission: 04/19/22 Date of Service: 04/19/22 Chief Complaint: AMS, lethargy HPI Narrative MAURICE WALLACE, is a 76-year-old female with a history of depression, hypertension, COPD, GERD, hypothyroidism presented to [facility] 04/19/2022 with confusion from [facility]. 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 Per her daughter she has not been getting up and moving around very well and she does not feel she has had enough care. In ED she was found to have white blood cell count of 15.7, hemoglobin 10.3, creatinine of 4.91, BUN 61, troponin 184. Blood pressure initially 88/48 and she is given a 1 L bolus and blood pressure improved to 97/54. Hospitalist contacted for admission. Patient evaluated at bedside, daughter not presently in the emergency department. Patient wakes up and answers questions appropriately but does report being very tired and falls back to sleep. She denies chest pain or changes in her breathing, reports very poor p.o. intake. Reviewed form sent from [facility] does appear she is receiving high doses of oxycodone as well as lorazepam and that combined with dehydration seems to lead to this clinical picture. Patient did not voice any other complaints at time of exam. [facility] Medical History Anemia Anxiety and depression Atherosclerosis of coronary artery bypass graft without angina pectoris Atherosclerosis of coronary artery of [place] heart with angina pectoris Back pain Benzodiazepine dependence CAD (coronary artery disease) Carotid artery stenosis Community acquired pneumonia COPD (chronic obstructive pulmonary disease) COPD (chronic obstructive pulmonary disease) CVA (cerebral vascular accident) DDD (degenerative disc disease), lumbar Depression with anxiety Diastolic dysfunction Elevated troponin Essential (primary) hypertension Guaiac positive stools H/O: pneumonia Hemorrhoids, external History of rectal cancer History of thyroid cancer Hyperlipidemia Hypothyroidism Nicotine dependence Non-rheumatic mitral regurgitation Non-rheumatic tricuspid valve insufficiency Non-ST elevation (NSTEMI) myocardial infarction Obstructive sleep apnea Rectal cancer Secondary pulmonary arterial hypertension TIA (transient ischemic attack) TIA (transient ischemic attack) Home Medications levothyroxine 75 mcg tablet 75 mcg PO QODAY thyroid 09/06/17 [History Last Taken 04/09/22] citalopram 40 mg tablet 40 mg PO DAILY depression 12/18/17 [History Last Taken 04/09/22] atenolol 50 mg tablet 50 mg PO DAILY heart rate 01/05/18 [History Last Taken 04/09/22] atorvastatin 40 mg tablet 40 mg PO DAILY cholesterol 01/05/18 [History Last Taken 04/09/22] lorazepam 1 mg tablet 1 mg PO 4X/DAY anxiety 06/28/18 [History Last Taken 04/09/22] albuterol sulfate 0.63 mg/3 mL solution for nebulization 0.63 mg inhalation Q4H PRN Congestion 07/14/18 [History Last Taken 1 Week Ago ~10/01/21] bupropion HCl 100 mg tablet 100 mg PO DAILY mood 01/16/19 [History Last Taken 04/09/22] pantoprazole 40 mg tablet,delayed release 40 mg PO BID gerd 01/16/19 [History Last Taken 04/09/22] gabapentin 100 mg capsule 200 mg PO 4X/DAY pain 10/08/21 [History Last Taken 04/09/22] oxybutynin chloride 5 mg tablet,extended release 24 hr 5 mg PO DAILY bladder 10/08/21 [History Last Taken 04/09/22] trazodone 100 mg tablet 100 mg PO QHS sleep 10/08/21 [History Last Taken 04/09/22] clopidogrel 75 mg tablet 75 mg PO DAILY #30 tabs 10/21/21 [Rx Last Taken 04/09/22] meclizine 25 mg tablet 25 mg PO DAILY PRN dizziness #30 tabs 02/28/22 [Rx Last Taken 04/09/22] lisinopril 20 mg tablet 20 mg PO DAILY BP 04/10/22 [History Last Taken 04/09/22] hydrochlorothiazide 12.5 mg capsule 12.5 mg PO DAILY #30 caps 04/14/22 [Rx Last Taken Unknown] oxycodone 10 mg tablet,crush resistant,extended release 12 hr (OxyContin) 20 mg PO BID 5 days #20 tabs 04/14/22 [Rx Last Taken Unknown] oxycodone 5 mg tablet 5 mg PO Q6H PRN pain 5 days #20 tabs 04/14/22 [Rx Last Taken Unknown] tuberculin PPD 1 unit/0.1 mL intradermal injection solution tb unit intradermal 04/19/22 [History Last Taken Unknown] Allergy/AdvReac Type Severity Reaction Status Date / Time morphine Allergy PT UNSURE Verified 04/19/22 12:07 Penicillins Allergy Hives Verified 04/19/22 12:07 tramadol HCl [From Ultram] Allergy PT UNSURE Verified 04/19/22 12:07 bupropion [From Wellbutrin] AdvReac hallucinati Verified 04/19/22 12:07 ons Family History Father Heart disease of heart attack at age 64 Mother Cancer of cancer at age 72 CVA (cerebral vascular accident) Surgical History History of appendectomy History of coronary artery bypass graft x 3 (~2007) History of coronary artery stent placement (10/10/21) History of left heart catheterization (10/10/21) Hx of cholecystectomy Hx of thyroidectomy Presence of stent in coronary artery (~10/10/21) Social History (Updated 04/10/22 @ 20:[address] Natasha Purdy DO) household members: significant other housing: house Smoking Status: Current every day smoker tobacco type: cigarettes details: Patient denies alcohol use substance use type: does not use ROS ROS Narrative Unable to obtain full ROS due to quickly falling back asleep and mental status however denied chest pain or shortness of breath and did report poor p.o. intake, denied abdominal pain Vital Signs Vital Signs Vital Signs: 04/19/22 12:07 04/19/22 12:12 04/19/22 13:20 Temperature 97.8 F 97.9 F Temperature Source Temporal Temporal Pulse Rate 65 64 Respiratory Rate 18 18 Respiratory Pattern Normal Blood Pressure 88/48 L 85/66 L Blood Pressure Mean 61 72 Pulse Ox 97 98 Oxygen Delivery Method Nasal Cannula Nasal Cannula Oxygen Flow Rate (L/min) 2 04/19/22 14:23 04/19/22 14:45 04/19/22 15:00 Temperature 98 F 97.9 F Temperature Source Temporal Temporal Pulse Rate 84 62 63 Respiratory Rate 18 18 18 Respiratory Pattern Blood Pressure 97/54 L 97/54 L 87/67 L Blood Pressure Mean 68 68 73 Pulse Ox 97 97 97 Oxygen Delivery Method Nasal Cannula Nasal Cannula Nasal Cannula Oxygen Flow Rate (L/min) 2 04/19/22 15:15 04/19/22 15:33 Temperature 97.9 F 98.8 F Temperature Source Temporal Temporal Pulse Rate 60 61 Respiratory Rate 20 H 10 L Respiratory Pattern Blood Pressure 87/67 L 100/85 H Blood Pressure Mean 73 90 Pulse Ox 98 97 Oxygen Delivery Method Room Air Oxygen Flow Rate (L/min) Weight Weight: 82.8 kg Body Mass Index (BMI) 34.4 Physical Exam Narrative General: Very easily awoken but does appear tired and falls back asleep once done answering any question HEENT: Atraumatic, normocephalic Eyes: Anicteric, normal conjunctiva, extraocular movements grossly intact Neck: Supple Respiratory: Clear to auscultation bilaterally, normal respiratory effort Cardiovascular: Regular rate and rhythm GI: Soft, nontender, nondistended Extremities: No edema Musculoskeletal: Moving all extremities Neuro: Very sleepy, does not have overt focal deficits but unable to fully participate in neuro exam due to mental status, does have some spontaneous jerking of her extremities Skin: No rashes appreciated Psych: Attempts to be cooperative Results Lab / Micro Data Result Diagrams: 04/19/22 13:00 04/19/22 13:00 Labs: Laboratory Results - last 24 hr 04/19/22 13:00: WBC 15.7 H, RBC 4.01 L, Hgb 10.3 L, Hct 33.1 L, MCV 82.5, MCH 25.7 L, MCHC 31.1 L, RDW Std Deviation 48.9 H, RDW Coeff of John 16.3 H, Plt Count 296, MPV 9.8, Immature Gran % (Auto) 0.800, Neut % (Auto) 79.6 H, Lymph % (Auto) 10.6 L, [place] % (Auto) 7.8, Eos % (Auto) 1.0, Baso % (Auto) 0.2, Absolute Neuts (auto) 12.5 H, Absolute Lymphs (auto) 1.66, Nucleated RBC % 0 04/19/22 13:00: Sodium 134 L, Potassium 4.3, Chloride 96 L, Carbon Dioxide 29.0, Anion Gap 9, BUN 61 H, Creatinine 4.91 H, Estim Creat Clear Calc 7.59, Est GFR (MDRD) Af Amer 11 L, Est GFR (MDRD) Non-Af 9 L, BUN/Creatinine Ratio 12.4, Glucose 115 H, Calcium 7.9 L, Troponin I High Sens 184 H* 04/19/22 13:00: Lactic Acid 1.0 04/19/22 13:00: PT 13.9, INR 1.1 04/19/22 13:48: Urine Color Yellow, Urine Clarity Clear, Urine pH 5.0, Ur Specific [place] 1.020, Urine Protein 15 H, Urine Glucose (UA) Normal, Urine Ketones 5 H, Urine Occult Blood Negative, Urine Nitrite Negative, Urine Bilirubin 1 H, Urine Urobilinogen 1 H, Ur Leukocyte Esterase 25 H, Urine RBC 0 SEEN, Urine WBC 0 SEEN, Ur Squamous Epith Cells 0 SEEN, Urine Bacteria 0 SEEN, Urine Mucus 0 SEEN Radiology Impression Brain CT 04/19/22 12:36 IMPRESSION: Small vessel ischemia. Old right basal ganglia lacunar infarct. Electronically Signed: Kirsten Harding MD at 15:31 EST Reading Location ID and State: [facility] / [place] Tel , Service support , Chest X-Ray 04/19/22 14:09 IMPRESSION: Chronic interstitial changes without a superimposed acute pulmonary process Electronically Signed: Ced Sandoval MD at 14:22 EST , Renal Ultrasound 04/19/22 14:19 IMPRESSION: Within normal limits renal ultrasound. Electronically Signed: Kirsten Harding MD at 15:18 EST , Assessment & Plan Assessment/Plan (1) Encephalopathy acute: (2) History of coronary artery bypass graft x 3: (3) Presence of stent in coronary artery: (4) History of rectal cancer: (5) COPD (chronic obstructive pulmonary disease): PLAN: Plan #Acute encephalopathy, metabolic versus toxic though suspect mixed given uremia and polypharmacy -Does have elevated white blood cell count of 15.7 with a BP of 85/66 but UA negative for infection, chest x-ray without acute infiltrate, and no other source of infection -Lactic acid within normal limits -We will send for blood cultures however will not cover empirically with antibiotics due to low suspicion of infection -Altered mental status may be secondary to uremia or dehydration given significantly elevated creatinine of 4.91 -2.5 L in the ED, start maintenance fluids -Additionally does have multiple medications on her home med list that can cause hypotension as well as delirium, will hold several home medications until BP and mental status improve but given chronic lorazepam and oxycodone will need to carefully monitor to assure she does not go into withdrawal as this can also worsen confusion -Has hypothyroidism, will check TSH -Brain CT obtained in ED with small vessel ischemia and an old right basal ganglia lacunar infarct -We will add on ABG to assess for any CO2 retention contributing to present picture especially with jerking and lethargy -Protecting airway and easily arousable, do not feel she needs intubated at this time and do not feel she needs Narcan -Given that lorazepam will be held we will start her on CIWA as when she is more awake she may begin to withdrawal and she will need coverage to avoid seizures or DTs #KRISTIN -Baseline creatinine roughly 0.75 but on presentation is 4.91 with a BUN of 61 -Status post 2.5 L in ED, maintenance fluids -We will obtain urine studies -UA not suggestive of UTI, occult blood negative as well and no red blood cells seen -Renal ultrasound in the ED unremarkable -Nephrology contacted by emergency department, will place formal consult -Given daughter's report of immobility we will also check CK -I's and O's #NSTEMI likely type II -Troponin elevated at 184 -Suspect type II given kidney function and hypotension -We will trend troponin -Continue statin and Plavix -EKG in ED normal sinus rhythm with nonspecific ST changes, trend Trope, patient denies chest pain or shortness of breath #Hx depression/anx/chronic pain -Would strongly advise against Co. prescribing lorazepam and OxyContin, may need to be weaned off lorazepam over time -Given present blood pressure mental status will hold these medications temporarily and reevaluate -Given age we will decrease Celexa to 30 mg -Given that lorazepam will be held we will start her on CIWA as when she is more awake she may begin to withdrawal and she will need coverage to avoid seizures or DTs #Avascular necrosis of the left femur head -Was recently admitted and discharged 04/14 on OxyContin after working with physical therapy -Follow-up with Ortho as an outpatient -Consult PT/OT -We will schedule Tylenol given patient's chronic pain and will add. Oral medications with hold parameters for sedation. We will avoid scheduled opioids at this time #Coronary artery disease status post PCI and CABG x3 -Had PCI 10/10/2021 and had CABG x3 in 2007 -Continue statin and Plavix #GERD -Continue PPI #COPD -Alb prn #Hypertension -We will hold atenolol, HCTZ, lisinopril #Hypothyroidism -Continue Synthroid -Check TSH #History of rectal cancer -s/p neoadjuvant chemotherapy -follows with [facility] on outpt basis #DVT ppx: Heparin subcu Mellisa Lunsford MD Time spent in the patient's overall evaluation,decision-making process, review of diagnostic data, adjustment of management, discussion with other providers, nursing nursing and ancillary staff involved in patient's care documentation, 60 Minutes Charges/Coding Visit Charges Inpatient E&M: 96552 Init Hosp L2
[2022-04-19 16:27] LABS: Troponin-I HS 158 pg/mL (3.0-54.0)
[2022-04-19] MEDS: 0.9% Normal Saline 1,000 ML 100 ML IV ×2 (16:48→21:50)
[2022-04-19 17:38] LABS: Urea Nitrogen, Urine 606 mg/dL (NO RANGE EST.); Urine Chloride 12 mmol/L (Not Establ.); Urine Sodium 29 mmol/L (Not Establ.)
[2022-04-19 19:34] LABS: CPK Total, Creatine Kinase 2627 U/L (26-192)
[2022-04-19] MEDS: Acetaminophen 500 MG Tablet 1000 MG PO (21:46)
[2022-04-19] MEDS: Pantoprazole Sodium 40 MG Tablet PO (21:46)
[2022-04-19] MEDS: Heparin Injection (Vial) 5,000 UNIT/ML VIAL 5000 UNIT SC (21:47)
[2022-04-20] VITALS (7 sets, daily range): BP systolic 126–158; BP diastolic 44–70; PULSE 72–77; RESP 16–18; TEMP 36.6–37.3; O2SAT 96–98; BMI 25.2
[2022-04-20] MEDS: Levothyroxine 88 MCG Tablet PO (06:35)
[2022-04-20] MEDS: Acetaminophen 500 MG Tablet 1000 MG PO ×3 (06:36→22:24)
[2022-04-20] MEDS: Heparin Injection (Vial) 5,000 UNIT/ML VIAL 5000 UNIT SC ×3 (06:37→22:22)
--- NOTE | 2022-04-20 07:21 | PCM.PN.BLA ---
Progress Note Nephrology brief note: The patient is a 76-year-old woman with past history of hypertension, COPD, hypothyroidism, GERD, stroke, rectal cancer, and depression. The patient was recently admitted to [facility] between 04/10/2022 until 04/14/2022 for left hip pain secondary to avascular necrosis. The patient was discharged to SNF. The patient presented to the hospital on 04/19/2022 with altered mental status and was found to have serum creatinine of 4.91 mg/dL. There is no prior history of CKD, and serum creatinine was 0.94 mg/dL on 04/16/2022. Apparently, the patient's intake has been poor. She was also receiving lisinopril for treatment of hypertension. Unclear whether she was also receiving NSAIDs for hip pain. There were no RBCs or significant proteinuria on urinalysis. Fractional secretion of sodium was less than 1%. Therefore, I suspect that the patient's acute kidney injury is secondary to prerenal cause volume depletion along with use of DAVID inhibitor in the setting of volume depletion. Agree with current management with volume expansion and discontinuing lisinopril for now. I suspect renal function will improve over the next few days. I will follow-up on the repeat renal function later today. Christoph Coker MD
[2022-04-20] MEDS: 0.9% Normal Saline 1,000 ML 100 ML IV ×3 (08:53→19:12)
[2022-04-20] MEDS: Pantoprazole Sodium 40 MG Tablet PO ×2 (09:06→22:21)
[2022-04-20] MEDS: Citalopram 40 MG TABLET PO (09:06)
[2022-04-20] MEDS: Clopidogrel Bisulfate 75 MG Tablet PO (09:06)
[2022-04-20] MEDS: buPROPion (SR) 100 MG TABLET.SA PO (09:06)
[2022-04-20 09:19] LABS: Absolute Lymphocyte Count 0.91 X10^3/uL (0.83-4.51); Absolute Neutrophil Count 8.6 X10^3/uL (2.0-7.7); Basophil# 0.03 X10^3/uL; Basophil% 0.3 % (0-1); Eosinophil# 0.05 X10^3/uL; Eosinophils% 0.5 % (0-5); Hematocrit 29.7 % (37-47); Hemoglobin 8.7 g/dL (12.0-15.0); Lymphocyte # 0.91 X10^3/ul (0.83-4.51); Lymphocyte % 8.7 % (19-41); Mean Corp Hgb Conc 29.3 g/dL (32-36); Mean Corpuscular Hgb 25.5 pg (27.0-32.0); Mean Corpuscular Volume 87.1 fL (81-99); Mean Platelet Vol. 10.1 fl (6.2-12.0); Monocyte# 0.71 X10^3/uL; Monocyte% 6.8 % (0-10); NRBC Flagged by Analyzer 0 % (0-5); Neutrophil # 8.63 X10^3/uL (2.7-7.7); Neutrophil % 82.7 % (47-70); Platelet Count 266 K/mm3 (150-450); RBC Distribution Width CV 16.2 % (11.6-14.6); RBC Distribution Width SD 51.2 fl (35.1-43.9); Red Blood Count 3.41 M/mm3 (4.2-5.4); White Blood Count 10.4 K/mm3 (4.4-11.0)
[2022-04-20 09:52] LABS: ALB/GLOB Ratio 0.7 RATIO (0.9-2.4); AST(SGOT) 156 U/L (15-37); Alanine Aminotransfer ALT/SGPT 37 U/L (13-56); Albumin, Serum 2.4 g/dL (3.2-5.0); Alkaline Phosphatase 145 U/L (45-117); Anion Gap 7 (5-15); BUN 36 mg/dL (7-18); BUN/Creat Ratio 30.3 RATIO (10-20); Calcium,Total 7.5 mg/dL (8.5-10.1); Chloride 110 mmol/L (98-107); Creatinine, Serum 1.19 mg/dL (0.55-1.02); EST Glomerular Filtration Rate 47 mL/min (>60); Est Glom Filt Rate - Afr Amer 57 mL/min (>60); Globulin 3.5 g/dL (2.2-4.2); Glucose 155 mg/dL (74-106); Potassium 3.5 mmol/L (3.5-5.1); Protein, Total 5.9 g/dL (6.4-8.2); Sodium Level 142 mmol/L (136-145)
[2022-04-20 10:02] LABS: CPK Total, Creatine Kinase 3257 U/L (26-192)
--- NOTE | 2022-04-20 14:17 | PCM.PROGNOTE ---
Subjective Subjective Patient seen and examined. She was lying comfortably in bed. she had no active complaints. Pain was well controlled. She denied nay nausea, vomiting, fever or chills. Review of systems is otherwise negative. Objective Data Objective Data Vital Signs: Vital Signs Temp Pulse Resp BP Pulse Ox O2 Del Method O2 Flow Rate 98.3 F 76 16 126/44 H 96 Room Air 2 04/20/22 09:05 04/20/22 09:05 04/20/22 09:05 04/20/22 09:05 04/20/22 09:05 04/20/22 09:05 04/20/22 08:03 Oxygen Flow Rate (L/min) 2 Oxygen Delivery Method Room Air Weight: 133 lb 9.602 oz Body Mass Index (BMI) 25.2 Intake & Output: Intake and Output for Last 24 Hours 04/18/22 04/19/22 04/21/22 23:59 23:59 00:59 Intake Total 743.33 / 743.33 141.67 / 141.67 Output Total 450 / 650 1475 / 1475 Balance 293.33 / 93.33 -1333.33 / -1333.33 Medical Nutrition Assessment Dietitian: Malnutrition Criteria Met Start: 04/20/22 12:44 Freq: Status: Active Protocol: Document 04/20/22 12:44 (Rec: 04/20/22 12:44 [id number]) Nutrition Malnutrition Evidence of Malnutrition Exists Yes Malnutrition (severe): Chronic Evidenced By Suboptimal Energy Intake ( Severe),Weight Loss (Severe) Clinical Problem Chronic Disease or Condition Related Malnutrition Etiology chronic, severe malnutrition related to inadequate energy intake Signs/Symptoms as evidenced by unintentional wt loss of 20.7#/13% x 6 months; estimated PO intake meeting <75% of estimated energy needs > 3 months Status Active Problem Recommendation Dietitian Recommendations/Changes recommend continue cardiac diet as tolerated; will add ensure w/ medpass for additional nutrition if consumed given signs/symptoms of malnutrition Lab / Micro Data Result Diagrams: 04/20/22 09:00 04/20/22 09:00 Labs: Laboratory Results - last 24 hr 04/19/22 13:00: Sodium 134 L, Potassium 4.3, Chloride 96 L, Carbon Dioxide 29.0, Anion Gap 9, BUN 61 H, Creatinine 4.91 H, Estim Creat Clear Calc 7.59, Est GFR (MDRD) Af Amer 11 L, Est GFR (MDRD) Non-Af 9 L, BUN/Creatinine Ratio 12.4, Glucose 115 H, Calcium 7.9 L, Troponin I High Sens 184 H* 04/19/22 13:00: Lactic Acid 1.0 04/19/22 13:00: PT 13.9, INR 1.1 04/19/22 13:48: Urine Color Yellow, Urine Clarity Clear, Urine pH 5.0, Ur Specific [place] 1.020, Urine Protein 15 H, Urine Glucose (UA) Normal, Urine Ketones 5 H, Urine Occult Blood Negative, Urine Nitrite Negative, Urine Bilirubin 1 H, Urine Urobilinogen 1 H, Ur Leukocyte Esterase 25 H, Urine RBC 0 SEEN, Urine WBC 0 SEEN, Ur Squamous Epith Cells 0 SEEN, Urine Bacteria 0 SEEN, Urine Mucus 0 SEEN 04/19/22 15:52: Troponin I High Sens 158 H* 04/19/22 15:52: Total Creatine Kinase 2627 H 04/19/22 17:13: Ur Random Sodium 29, Urine Creatinine 115.00, Urine Potassium 33.0, Urine Chloride 12, Urine Urea Nitrogen 606 04/20/22 09:00: WBC 10.4, RBC 3.41 L, Hgb 8.7 L, Hct 29.7 L, MCV 87.1 D, MCH 25.5 L, MCHC 29.3 L D, RDW Std Deviation 51.2 H, RDW Coeff of John 16.2 H, Plt Count 266, MPV 10.1, Immature Gran % (Auto) 1.000 H, Neut % (Auto) 82.7 H, Lymph % (Auto) 8.7 L, [place] % (Auto) 6.8, Eos % (Auto) 0.5, Baso % (Auto) 0.3, Absolute Neuts (auto) 8.6 H, Absolute Lymphs (auto) 0.91, Nucleated RBC % 0 04/20/22 09:00: Sodium 142, Potassium 3.5, Chloride 110 H, Carbon Dioxide 25.0, Anion Gap 7, BUN 36 H, Creatinine 1.19 H, Estim Creat Clear Calc 31.30, Est GFR (MDRD) Af Amer 57 L, Est GFR (MDRD) Non-Af 47 L, BUN/Creatinine Ratio 30.3 H, Glucose 155 H, Calcium 7.5 L, Total Bilirubin 0.80, AST 156 H, ALT 37, Alkaline Phosphatase 145 H, Total Protein 5.9 L, Albumin 2.4 L, Globulin 3.5, Albumin/Globulin Ratio 0.7 L 04/20/22 09:00: Total Creatine Kinase 3257 H Radiography Diagnostic Testing: Radiology Impression Brain CT 04/19/22 12:36 IMPRESSION: Small vessel ischemia. Old right basal ganglia lacunar infarct. Electronically Signed: Kirsten Harding MD at 15:31 EST , Chest X-Ray 04/19/22 14:09 IMPRESSION: Chronic interstitial changes without a superimposed acute pulmonary process Electronically Signed: Ced Sandoval MD at 14:22 EST , Renal Ultrasound 04/19/22 14:19 IMPRESSION: Within normal limits renal ultrasound. Electronically Signed: Kirsten Harding MD at 15:18 EST , Physical Exam Const alert, oriented x3 and no apparent distress General Appearance: cooperative HEENT normocephalic, head/scalp atraumatic, moist oral mucous membranes and oropharynx normal Eyes PERRL and EOMs intact bilaterally Neck no lymphadenopathy, supple and no JVD General: trachea midline Lymph Lymphatic: no lymphadenopathy noted and no lymphedema noted Resp normal respiratory effort, normal air movement and clear to auscultation bilaterally Cardio regular rate, regular rhythm, S1 normal heart sound, S2 normal heart sound and no murmurs GI normal to inspection, nondistended, normoactive bowel sounds, soft to palpation, non-tender and non-distended Extremity normal capillary refill and no clubbing, cyanosis or edema Skin General Skin Exam: no breakdown Neuro CN's II-XII intact bilaterally, no focal motor deficits and no sensory deficits noted Psych Appearance: appropriate Assessment & Plan Assessment/Plan (1) Hypotension: (2) Dehydration: (3) Encephalopathy acute: (4) KRISTIN (acute kidney injury): PLAN: Plan #Acute metabolic encephalopathy Was recently on admission for intractable hip pain due to avascular necrosis of the hip. She was discharged on 04/14/2022. Whilst in the hospital patient had required increasing amounts of pain meds and was discharged on MS Contin as well as oxycodone for 5 days to help control her pain. This is what she had been on in the hospital. Noted to be more confused and lethargic in the long-term and was also hypotensive Mentation now improving. Pain meds on hold. PT OT on board. Fall precautions. Continue gentle hydration with IV fluids. Hypotension is also resolved. #KRISTIN: Creatinine was 4.91 on admission. She has a baseline of 0.75. Likely prerenal due to dehydration and decreased intake. Nephrology consulted. Continue gentle hydration with IV fluids. Hold all nephrotoxic medications. His CPK was also elevated which could be playing a role. Trend creatinine. Cr has trended down to 1.19 #Elevated troponin: Patient did not have any chest pain. Troponins were elevated at 184 and this was thought to likely be due to type II non-STEMI due to hypotension. There was also likely decreased clearance on account of KRISTIN. On aspirin and Plavix. 2D echo ordered. Based on 2D echo results, will consider consulting cardiology. Troponin subsequently trended downwards to 158. #Intractable pain due to avascular necrosis of the hip: Opioids on hold. As needed pain medication ordered. #Depression: On Celexa and dose was decreased to 30 mg. #CAD s/p stent and CABG: On statin and Plavix #GERD: On PPI #Hypertension: BP meds on hold due to hypotension on admission. #Hypothyroidism: On Synthroid #History of rectal cancer: On neoadjuvant therapy and follow-up with [facility] on outpatient basis. DVT prophylaxis: Lovenox Charges/Coding Visit Charges Inpatient E&M: 00658 Subs Hosp L2
[2022-04-20] MEDS: Ensure Plus High Protein 120 ML LIQUID PO ×2 (14:31→17:39)
[2022-04-20] MEDS: MELATONIN 3 MG TABLET PO (22:29)
[2022-04-21] VITALS (8 sets, daily range): BP systolic 154–193; BP diastolic 51–75; PULSE 62–70; RESP 16–18; TEMP 36.3–37.4; O2SAT 94–98; BMI 25.0
[2022-04-21 06:10] LABS: Anion Gap 5 (5-15); BUN 19 mg/dL (7-18); BUN/Creat Ratio 32.5 RATIO (10-20); Calcium,Total 7.8 mg/dL (8.5-10.1); Chloride 112 mmol/L (98-107); Creatinine, Serum 0.58 mg/dL (0.55-1.02); EST Glomerular Filtration Rate 107 mL/min (>60); Est Glom Filt Rate - Afr Amer 129 mL/min (>60); Estimated Creatinine Clearance 37.24 ml/min; Glucose 100 mg/dL (74-106); Potassium 3.4 mmol/L (3.5-5.1); Sodium Level 143 mmol/L (136-145)
[2022-04-21 06:16] LABS: Absolute Lymphocyte Count 0.98 X10^3/uL (0.83-4.51); Absolute Neutrophil Count 7.3 X10^3/uL (2.0-7.7); Basophil# 0.02 X10^3/uL; Basophil% 0.2 % (0-1); Eosinophil# 0.05 X10^3/uL; Eosinophils% 0.6 % (0-5); Hematocrit 28.5 % (37-47); Hemoglobin 8.4 g/dL (12.0-15.0); Lymphocyte # 0.98 X10^3/ul (0.83-4.51); Lymphocyte % 10.8 % (19-41); Mean Corp Hgb Conc 29.5 g/dL (32-36); Mean Corpuscular Hgb 25.2 pg (27.0-32.0); Mean Corpuscular Volume 85.6 fL (81-99); Mean Platelet Vol. 10.5 fl (6.2-12.0); Monocyte# 0.59 X10^3/uL; Monocyte% 6.5 % (0-10); NRBC Flagged by Analyzer 0 % (0-5); Neutrophil # 7.34 X10^3/uL (2.7-7.7); Neutrophil % 80.9 % (47-70); Platelet Count 294 K/mm3 (150-450); RBC Distribution Width CV 15.9 % (11.6-14.6); RBC Distribution Width SD 49.1 fl (35.1-43.9); Red Blood Count 3.33 M/mm3 (4.2-5.4); White Blood Count 9.1 K/mm3 (4.4-11.0)
[2022-04-21] MEDS: Levothyroxine 88 MCG Tablet PO (06:19)
[2022-04-21] MEDS: Acetaminophen 500 MG Tablet 1000 MG PO ×3 (06:19→21:06)
[2022-04-21] MEDS: Heparin Injection (Vial) 5,000 UNIT/ML VIAL 5000 UNIT SC ×3 (06:21→21:04)
[2022-04-21] MEDS: 0.9% Normal Saline 1,000 ML 100 ML IV ×2 (06:21→16:44)
[2022-04-21] MEDS: 0.9% Saline Lock 10 ML Syringe IV (06:25)
[2022-04-21] MEDS: Ensure Plus High Protein 120 ML LIQUID PO ×2 (08:42→21:02)
[2022-04-21] MEDS: buPROPion (SR) 100 MG TABLET.SA PO (08:42)
[2022-04-21] MEDS: Citalopram 40 MG TABLET PO (08:42)
[2022-04-21] MEDS: Pantoprazole Sodium 40 MG Tablet PO ×2 (08:42→21:05)
[2022-04-21] MEDS: Clopidogrel Bisulfate 75 MG Tablet PO (08:42)
--- NOTE | 2022-04-21 09:44 | PCM.PN.HOSP ---
Subjective Subjective Feeling little bit better, no issues overnight Objective Data Objective Data Vital Signs: Vital Signs Temp Pulse Resp BP Pulse Ox O2 Del Method O2 Flow Rate 98.7 F 68 16 185/55 H 94 Room Air 2 04/21/22 08:41 04/21/22 08:41 04/21/22 08:41 04/21/22 08:56 04/21/22 09:11 04/21/22 09:11 04/20/22 08:03 Oxygen Flow Rate (L/min) 2 Oxygen Delivery Method Room Air Weight: 132 lb 7.965 oz Body Mass Index (BMI) 25.0 Intake & Output: Intake and Output for Last 24 Hours 04/20/22 04/21/22 04/22/22 03:59 03:59 03:59 Intake Total 1501.67 / 1501.67 1000 / 1000 Output Total 1825 / 1825 250 / 250 Balance -323.33 / -323.33 750 / 750 Medical Nutrition Assessment Dietitian: Malnutrition Criteria Met Start: 04/20/22 12:44 Freq: Status: Active Protocol: Document 04/20/22 12:44 AG (Rec: 04/20/22 12:44 [id number]) Nutrition Malnutrition Evidence of Malnutrition Exists Yes Malnutrition (severe): Chronic Evidenced By Suboptimal Energy Intake ( Severe),Weight Loss (Severe) Clinical Problem Chronic Disease or Condition Related Malnutrition Etiology chronic, severe malnutrition related to inadequate energy intake Signs/Symptoms as evidenced by unintentional wt loss of 20.7#/13% x 6 months; estimated PO intake meeting <75% of estimated energy needs > 3 months Status Active Problem Recommendation Dietitian Recommendations/Changes recommend continue cardiac diet as tolerated; will add ensure w/ medpass for additional nutrition if consumed given signs/symptoms of malnutrition Lab / Micro Data Result Diagrams: 04/21/22 05:18 04/21/22 05:18 Labs: Laboratory Results - last 24 hr 04/20/22 09:00: Sodium 142, Potassium 3.5, Chloride 110 H, Carbon Dioxide 25.0, Anion Gap 7, BUN 36 H, Creatinine 1.19 H, Estim Creat Clear Calc 31.30, Est GFR (MDRD) Af Amer 57 L, Est GFR (MDRD) Non-Af 47 L, BUN/Creatinine Ratio 30.3 H, Glucose 155 H, Calcium 7.5 L, Total Bilirubin 0.80, AST 156 H, ALT 37, Alkaline Phosphatase 145 H, Total Protein 5.9 L, Albumin 2.4 L, Globulin 3.5, Albumin/Globulin Ratio 0.7 L 04/20/22 09:00: Total Creatine Kinase 3257 H 04/21/22 05:18: WBC 9.1, RBC 3.33 L, Hgb 8.4 L, Hct 28.5 L, MCV 85.6, MCH 25.2 L, MCHC 29.5 L, RDW Std Deviation 49.1 H, RDW Coeff of John 15.9 H, Plt Count 294, MPV 10.5, Immature Gran % (Auto) 1.000 H, Neut % (Auto) 80.9 H, Lymph % (Auto) 10.8 L, [place] % (Auto) 6.5, Eos % (Auto) 0.6, Baso % (Auto) 0.2, Absolute Neuts (auto) 7.3, Absolute Lymphs (auto) 0.98, Nucleated RBC % 0 04/21/22 05:18: Sodium 143, Potassium 3.4 L, Chloride 112 H, Carbon Dioxide 26.0, Anion Gap 5, BUN 19 H, Creatinine 0.58, Estim Creat Clear Calc 37.24, Est GFR (MDRD) Af Amer 129, Est GFR (MDRD) Non-Af 107, BUN/Creatinine Ratio 32.5 H, Glucose 100, Calcium 7.8 L Physical Exam Narrative General: Alert, Oriented x3, Cooperative, No apparent distress HEENT: Atraumatic, PERRLA, EOMI, Normocephalic Oral: Moist Mucosa Neck: Supple, No JVD Lungs: Diminished, Normal air movement, No rhonchi, No wheeze, No rales Cardiovascular: Regular rate, Regular Rhythm, Normal S1, Normal S2, No murmurs Abdomen: Soft, Non Tender, Non-Distended, No Hepato-splenomegaly Extremities: No edema, Capillary Refill Less than 3 Seconds Skin: No rashes, No breakdown Musculoskeletal: No Tenderness to Palpation of Joints or Extremities Neurological: Cranial nerves II-XII grossly intact, Motor Exam 5/5 strength throughout, Sensory exam intact to light touch and pain Psych/Mental Status: Flat affect, Appropriate Assessment & Plan Assessment/Plan (1) Hypotension: (2) Dehydration: (3) Encephalopathy acute: (4) KRISTIN (acute kidney injury): PLAN: Plan #Acute metabolic encephalopathy Was recently on admission for intractable hip pain due to avascular necrosis of the hip. She was discharged on 04/14/2022. Whilst in the hospital patient had required increasing amounts of pain meds and was discharged on MS Contin as well as oxycodone for 5 days to help control her pain. This is what she had been on in the hospital. Noted to be more confused and lethargic in the long term and was also hypotensive, this is all resolved Encephalopathy has resolved considerably restart pain medications the combination of pain medications plus her KRISTIN due to dehydration PT OT on board. Fall precautions. Continue gentle hydration with IV fluids. Hypotension is also resolved. #KRISTIN: Creatinine was 4.91 on admission. Creatinine is down to baseline FENa on admission of 0.9% indicating prerenal cause Continue gentle hydration with IV fluids. Hold all nephrotoxic medications. #Elevated troponin: Patient did not have any chest pain. Troponins were elevated at 184 and this was thought to likely be due to type II non-STEMI due to hypotension. There was also likely decreased clearance on account of KRISTIN. On aspirin and Plavix. 2D echo ordered Troponin subsequently trended downwards to 158. #Intractable pain due to avascular necrosis of the hip: Can slowly reintroduce her pain medications #Depression: On Celexa and dose was decreased to 30 mg. #CAD s/p stent and CABG: On statin and Plavix #GERD: On PPI #Hypertension: BP meds on hold due to hypotension on admission. #Hypothyroidism: On Synthroid #History of rectal cancer: On neoadjuvant therapy and follow-up with [facility] on outpatient basis. DVT: Lovenox Charges/Coding Visit Charges Inpatient E&M: 93375 Subs Hosp L2
[2022-04-21 10:34] LABS: Ferritin 131 ng/mL (8-252); Iron 21 ug/dL (50-170); Iron Binding Capacity,Total 287 ug/dL (250-450); PERCENT IRON SATURATION 7.3 % (15.0-55.0)
[2022-04-21] MEDS: Potassium Chloride Oral Tablet 20 MEQ 40 MEQ PO (10:42)
[2022-04-21] MEDS: Atenolol 50 MG Tablet PO (10:42)
[2022-04-21] MEDS: hydroCHLOROthiazide 12.5mg 12.5 MG PO (11:30)
--- NOTE | 2022-04-21 14:29 | ECHOD_ITS ---
Reason For Study: Elevated Troponins Procedure This was a 2D Doppler, Color Flow transthoracic echocardiogram. Exam performed portable in patient room. Left Ventricle Normal LV size. Left ventricular systolic function is normal. The estimated ejection fraction is 60 %. Stage 2 diastolic dysfunction. No regional wall motion abnormalities noted. Right Ventricle Normal RV size. Atria The left atrium is moderately enlarged. Normal right atrium. Mitral Valve Mild (1+) eccentric mitral valve insufficiency. Tricuspid Valve Normal tricuspid valve. Moderate (2+) tricuspid valve insufficiency. Pulmonary artery systolic pressure is 58 mmHg. Moderate pulmonary hypertension. Aortic Valve Trisinus/trileaflet aortic valve. Trivial aortic valve insufficiency. Pulmonic Valve Normal pulmonic valve. Great Vessels Normal aortic root. The pulmonary artery is normal size. Normal inferior vena cava. Pericardium/Pleural No pericardial effusion. MMode/2D Measurements & Calculations LVIDd: 4.7 cm IVSd: 1.3 cm LA dimension: 4.6 cm LVIDs: 3.0 cm LVPWd: 1.1 cm RVDd: 3.9 cm FS: 36.3 % LAV(MOD-bp): 112.6 ml LA A4 area: 30.8 cm2 RA A4 area: 20.1 cm2 LAV(MOD-bp) Indexed: 70.9 ml/m2 LAV(MOD-sp2): 101.9 ml LAV(MOD-sp4): 121.1 ml Time Measurements MV dec time: 0.12 sec Doppler Measurements & Calculations MV E max nabil: 105.3 cm/sec Lat Peak E' Nabil: 7.3 cm/sec Med Peak E' Nabil: 5.8 cm/sec MV A max nabil: 57.9 cm/sec E/E' lat: 14.5 E/E' med: 18.2 MV E/A: 1.8 MV V2 max: 133.9 cm/sec MV P1/2t max nabil: 135.2 cm/sec Ao V2 max: 151.7 cm/sec MV max P.2 mmHg MV P1/2t: 47.4 msec Ao max P.2 mmHg MV V2 mean: 62.1 cm/sec MV dec slope: 836.1 cm/sec2 Ao V2 mean: 98.2 cm/sec MV mean P.9 mmHg MVA(P1/2t): 4.6 cm2 Ao mean P.4 mmHg MV V2 VTI: 31.1 cm Ao V2 VTI: 36.4 cm AV (velocity ratio): 0.73 LV V1 max: 110.5 cm/sec MR max nabil: 736.1 cm/sec PA V2 max: 96.3 cm/sec LV V1 max P.9 mmHg MR max P.7 mmHg LV V1 mean P.6 mmHg MR mean nabil: 562.3 cm/sec LV V1 mean: 76.0 cm/sec MR mean P.5 mmHg LV V1 VTI: 26.6 cm MR VTI: 265.6 cm TR max nabil: 366.3 cm/sec TR max P.7 mmHg ECHO/Echo Complete Interpretation Summary Normal LV size. Left ventricular systolic function is normal. The estimated ejection fraction is 60 %. Stage 2 diastolic dysfunction. Pulmonary artery systolic pressure is 58 mmHg. Moderate pulmonary hypertension. Ordering Physician: Makeda Ayala Referring Physician: Zully Rojas Performed By: Weston Rangel RCS
--- NOTE | 2022-04-21 14:53 | CASEMGMT ---
LOC reviewed patient's chart and it appears patient's family does not want patient to return to [facility]. LOC called patient's daughter Shyanne as patient is still not alert and oriented. LOC asked Shyanne what facility she would like patient to go to. Shyanne was upset and shared the lengthy story about her dissatisfaction with [facility]. Shynane said she will take care of patient at home as she will not send her to another group home to get killed. She mentioned home health and a hospital bed. SW let her know SW can check with the Pool Table Operator about whether or not patient is eligible for a hospital bed. Fern Carrera [employer] V[employer]SEL OPERATOR NIKITA
[2022-04-21] MEDS: LORazepam 1 MG Tablet PO (22:16)
[2022-04-22] VITALS (14 sets, daily range): BP systolic 160–200; BP diastolic 57–86; PULSE 60–72; RESP 16–18; TEMP 36.4–36.8; O2SAT 88–98; BMI 25.0
[2022-04-22 05:06] LABS: Absolute Lymphocyte Count 1.39 X10^3/uL (0.83-4.51); Absolute Neutrophil Count 7.3 X10^3/uL (2.0-7.7); Basophil# 0.02 X10^3/uL; Basophil% 0.2 % (0-1); Eosinophil# 0.13 X10^3/uL; Eosinophils% 1.4 % (0-5); Hemoglobin 8.6 g/dL (12.0-15.0); Lymphocyte # 1.39 X10^3/ul (0.83-4.51); Lymphocyte % 14.7 % (19-41); Mean Corp Hgb Conc 29.7 g/dL (32-36); Mean Corpuscular Hgb 25.1 pg (27.0-32.0); Mean Corpuscular Volume 84.5 fL (81-99); Monocyte# 0.56 X10^3/uL; Monocyte% 5.9 % (0-10); NRBC Flagged by Analyzer 0 % (0-5); Neutrophil # 7.26 X10^3/uL (2.7-7.7); Neutrophil % 77.1 % (47-70); Platelet Count 301 K/mm3 (150-450); Red Blood Count 3.43 M/mm3 (4.2-5.4); White Blood Count 9.4 K/mm3 (4.4-11.0)
[2022-04-22 05:39] LABS: Anion Gap 6 (5-15); BUN 10 mg/dL (7-18); BUN/Creat Ratio 16.9 RATIO (10-20); Calcium,Total 7.7 mg/dL (8.5-10.1); Chloride 111 mmol/L (98-107); Creatinine, Serum 0.59 mg/dL (0.55-1.02); EST Glomerular Filtration Rate 105 mL/min (>60); Est Glom Filt Rate - Afr Amer 128 mL/min (>60); Estimated Creatinine Clearance 37.24 ml/min; Glucose 93 mg/dL (74-106); Potassium 3.5 mmol/L (3.5-5.1); Sodium Level 142 mmol/L (136-145)
[2022-04-22] MEDS: Levothyroxine 88 MCG Tablet PO (06:38)
[2022-04-22] MEDS: Heparin Injection (Vial) 5,000 UNIT/ML VIAL 5000 UNIT SC ×2 (06:38→22:43)
[2022-04-22] MEDS: 0.9% Normal Saline 1,000 ML 100 ML IV (06:38)
[2022-04-22] MEDS: Acetaminophen 500 MG Tablet 1000 MG PO ×3 (06:38→22:46)
[2022-04-22] MEDS: hydroCHLOROthiazide 12.5mg 12.5 MG PO (09:59)
[2022-04-22] MEDS: Citalopram 40 MG TABLET PO (09:59)
[2022-04-22] MEDS: Atenolol 50 MG Tablet PO (09:59)
[2022-04-22] MEDS: Clopidogrel Bisulfate 75 MG Tablet PO (09:59)
[2022-04-22] MEDS: buPROPion (SR) 100 MG TABLET.SA PO (09:59)
[2022-04-22] MEDS: Pantoprazole Sodium 40 MG Tablet PO ×2 (09:59→22:46)
--- NOTE | 2022-04-22 12:08 | PN.HOSP_ITS ---
Subjective Subjective Doing well, no issues overnight. Feeling a bit better today. Objective Data Objective Data Vital Signs: Vital Signs Temp Pulse Resp BP Pulse Ox O2 Del Method O2 Flow Rate 98.2 F 62 18 190/67 H 94 Room Air 2 04/22/22 10:00 04/22/22 10:00 04/22/22 10:00 04/22/22 10:00 04/22/22 10:00 04/22/22 10:00 04/20/22 08:03 Oxygen Flow Rate (L/min) 2 Oxygen Delivery Method Room Air Weight: 132 lb 4.438 oz Body Mass Index (BMI) 25.0 Intake & Output: Intake and Output for Last 24 Hours 04/21/22 04/22/22 04/23/22 03:59 03:59 03:59 Intake Total 1501.67 / 1501.67 3960 / 3960 336.67 / 336.67 Output Total 1825 / 1825 925 / 925 250 / 250 Balance -323.33 / -323.33 3035 / 3035 86.67 / 86.67 Medical Nutrition Assessment Dietitian: Malnutrition Criteria Met Start: 04/20/22 12:44 Freq: Status: Active Protocol: Document 04/20/22 12:44 AG (Rec: 04/20/22 12:44 [id number]) Nutrition Malnutrition Evidence of Malnutrition Exists Yes Malnutrition (severe): Chronic Evidenced By Suboptimal Energy Intake ( Severe),Weight Loss (Severe) Clinical Problem Chronic Disease or Condition Related Malnutrition Etiology chronic, severe malnutrition related to inadequate energy intake Signs/Symptoms as evidenced by unintentional wt loss of 20.7#/13% x 6 months; estimated PO intake meeting <75% of estimated energy needs > 3 months Status Active Problem Recommendation Dietitian Recommendations/Changes recommend continue cardiac diet as tolerated; will add ensure w/ medpass for additional nutrition if consumed given signs/symptoms of malnutrition Lab / Micro Data Result Diagrams: 04/22/22 04:43 04/22/22 04:43 Labs: Laboratory Results - last 24 hr 04/22/22 04:43: WBC 9.4, RBC 3.43 L, Hgb 8.6 L, Hct 29.0 L, MCV 84.5, MCH 25.1 L , MCHC 29.7 L, RDW Std Deviation 49.0 H, RDW Coeff of John 16.0 H, Plt Count 301, MPV 10.0, Immature Gran % (Auto) 0.700, Neut % (Auto) 77.1 H, Lymph % (Auto) 14.7 L, [place] % (Auto) 5.9, Eos % (Auto) 1.4, Baso % (Auto) 0.2, Absolute Neuts (auto) 7.3, Absolute Lymphs (auto) 1.39, Nucleated RBC % 0 04/22/22 04:43: Sodium 142, Potassium 3.5, Chloride 111 H, Carbon Dioxide 25.0, Anion Gap 6, BUN 10, Creatinine 0.59, Estim Creat Clear Calc 37.24, Est GFR (MDRD) Af Amer 128, Est GFR (MDRD) Non-Af 105, BUN/Creatinine Ratio 16.9, Glucose 93, Calcium 7.7 L Micro: Microbiology 04/19/22 13:00 Blood Culture (Wb) - Right Forearm Blood Culture - Preliminary No growth in 48 hours. 04/19/22 13:45 Blood Culture (Wb) - Right Forearm Blood Culture - Preliminary No growth in 48 hours. Radiography Diagnostic Testing: Radiology Impression Echocardiogram 04/21/22 14:29 Interpretation Summary Normal LV size. Left ventricular systolic function is normal. The estimated ejection fraction is 60 %. Stage 2 diastolic dysfunction. Pulmonary artery systolic pressure is 58 mmHg. Moderate pulmonary hypertension. Ordering Physician: Makeda Ayala Referring Physician: Zully Rojas Performed By: Weston Rangel RCS Physical Exam Narrative General: Alert, Oriented x3, Cooperative, No apparent distress HEENT: Atraumatic, PERRLA, EOMI, Normocephalic Oral: Moist Mucosa Neck: Supple, No JVD Lungs: Diminished, Normal air movement, No rhonchi, No wheeze, No rales Cardiovascular: Regular rate, Regular Rhythm, Normal S1, Normal S2, No murmurs Abdomen: Soft, Non Tender, Non-Distended, No Hepato-splenomegaly Extremities: No edema, Capillary Refill Less than 3 Seconds Skin: No rashes, No breakdown Musculoskeletal: No Tenderness to Palpation of Joints or Extremities Neurological: Cranial nerves II-XII grossly intact, Motor Exam 5/5 strength throughout, Sensory exam intact to light touch and pain Psych/Mental Status: Normal affect, Appropriate Assessment & Plan Assessment/Plan (1) Hypotension: (2) Dehydration: (3) Encephalopathy acute: (4) KRISTIN (acute kidney injury): PLAN: Plan #Acute metabolic encephalopathy * Was recently on admission for intractable hip pain due to avascular necrosis of the hip. She was discharged on 04/14/2022. Whilst in the hospital patient had required increasing amounts of pain meds and was discharged on MS Contin as well as oxycodone for 5 days to help control her pain. This is what she had been on in the hospital. * Noted to [facility] and [facility]argic [facility] and was also hy potensive, this is all resolved * Encephalopathy has resolved considerably restart pain medications the combination of pain medications plus her KRISTIN due to dehydration * PT OT on board. Fall precautions. * DC IV fluids as she is eating * Hypotension is also resolved, will restart her home medications * .Does not want her to go back to a penit[facility]iary and wants to take her home so we will discuss with case management about facilitating that #KRISTIN: * Creatinine was 4.91 on admission. Creatinine is down to baseline * FENa on admission of 0.9% indicating prerenal cause * DC IV fluids, can restart her lisinopril #Elevated troponin: * Patient did not have any chest pain. * Troponins were elevated at 184 and this was thought to likely be due to type II non-STEMI due to hypotension. * There was also likely decreased clearance on account of KRISTIN. * On aspirin and Plavix. * 2D echo ordered * Troponin subsequently trended downwards to 158. #Intractable pain due to avascular necrosis of the hip: Can slowly reintroduce her pain medications #Depression: On Celexa and dose was decreased to 30 mg. #CAD s/p stent and CABG: On statin and Plavix #GERD: On PPI #Hypertension: Restart home blood pressure medications #Hypothyroidism: On Synthroid #History of rectal cancer: On neoadjuvant therapy and follow-up with [facility] on outpatient basis. DVT: Lovenox Charges/Coding Visit Charges Inpatient E&M: 35471 Subs Hosp L2
--- NOTE | 2022-04-22 13:33 | CASEMGMT ---
Addendum entered by Marilou Valdes 04/22/22 13:56: JOHN BYRNES received call back from [facility] and they are able to accept the patient with start of care planned for . CM will updated family and discharge plan. Original Note: JOHN BYRNES updated by SW that daughter Shyanne is wanting patient to go home with HHC and hospital bed. JOHN BYRNES called daughter Shyanne to discuss discharge planning. Per Shyanne, she prefers [facility] for DME and requesting hospital bed at discharge, Shyanne is ok for patient to discharge home and have bed delivered after discharge. A list of [facility] providers including quality and resource use data and consistent with the patient?s preferred geographical region, medical needs, and insurance network were provided from the [facility] Guide. JOHN BYRNES reviewed [facility] agencies with Shyanne over the phone and she prefers [facility]. JOHN BYRNES called [facility] to place referral, [facility] to review and call back with acceptance. JOHN BYRNES received script for hospital bed and sent to [facility] via [facility]. FITZ will continue to follow this patient and plan for a safe discharge.
[2022-04-22] MEDS: Lisinopril 20 MG Tablet PO (13:34)
[2022-04-22] MEDS: hydrALAZINE 20 MG/ML Vial 10 MG IV (17:29)
[2022-04-22] MEDS: amLODIPine 10 MG Tablet PO (17:56)
[2022-04-22] MEDS: LORazepam 2 MG/ML Syringe IV (22:39)
[2022-04-22] MEDS: 0.9% Saline Lock 10 ML Syringe IV (22:42)
[2022-04-22] MEDS: Potassium Chloride Oral Tablet 20 MEQ 40 MEQ PO (22:45)
[2022-04-23 02:41] VITALS: RESP 18; O2SAT 94
[2022-04-23 02:58] VITALS: BP 149/47; PULSE 68; RESP 18; TEMP 36.7; O2SAT 94
[2022-04-23 03:58] VITALS: BMI 25.3
[2022-04-23] MEDS: oxyCODONE 5 MG Tablet PO ×2 (04:00→08:46)
[2022-04-23 05:49] LABS: Magnesium 1.2 mg/dL (1.6-2.6)
[2022-04-23] MEDS: Levothyroxine 88 MCG Tablet PO (05:53)
[2022-04-23] MEDS: Acetaminophen 500 MG Tablet 1000 MG PO (05:53)
[2022-04-23] MEDS: Heparin Injection (Vial) 5,000 UNIT/ML VIAL 5000 UNIT SC (05:53)
[2022-04-23 07:26] VITALS: O2SAT 98
[2022-04-23] MEDS: Citalopram 40 MG TABLET PO (08:46)
[2022-04-23] MEDS: Atenolol 50 MG Tablet PO (08:46)
[2022-04-23] MEDS: Clopidogrel Bisulfate 75 MG Tablet PO (08:46)
[2022-04-23] MEDS: Lisinopril 20 MG Tablet PO (08:46)
[2022-04-23] MEDS: Ensure Plus High Protein 120 ML LIQUID PO (08:46)
[2022-04-23] MEDS: buPROPion (SR) 100 MG TABLET.SA PO (08:46)
[2022-04-23] MEDS: amLODIPine 10 MG Tablet PO (08:46)
[2022-04-23] MEDS: Pantoprazole Sodium 40 MG Tablet PO (08:46)
[2022-04-23] MEDS: hydroCHLOROthiazide 12.5mg 12.5 MG PO (08:46)
[2022-04-23 09:00] VITALS: BP 170/62; PULSE 69; RESP 18; TEMP 36.9; O2SAT 98
--- NOTE | 2022-04-23 10:21 | DCINST_ITS ---
Discharge Instructions Diet Discharge Diet: Low fat / Low cholesterol Activity Discharge Activity: Return to Normal Activity Dressing / Incision Call your doctor if you observe: Fever of 101 or Higher, Shortness of breath, Dizziness, Fainting spells, Swelling in the ankles, Chest pain and Increased palpitations (irregular heartbeat) Follow Up Care Test Results: Test results from this visit will be discussed in further detail at your follow- up appointment, if applicable. Discharge Plan Admission Admit Date/Time: 04/19/22 15:57 Attending Provider: Cruz Roberts Primary Care Provider: Zully Rojas Consulting Providers: Cuate Allison ; Mellisa Lunsford ; Makeda Ayala Instructions Additional Instructions / Restrictions: Follow-up with your PCP in 3 to 5 days to monitor your renal function as well as your anemia Discharge Orders/Prescriptions Prescriptions: New amlodipine 10 mg Tablet 10 mg PO DAILY 30 Days Qty: 30 0RF Continued albuterol sulfate 0.63 mg/3 mL solution for nebulization 0.63 mg INHALATION Q4H PRN (Reason: Congestion) levothyroxine 75 MCG tablet 88 mcg PO DAILY citalopram 40 mg tablet 40 mg PO DAILY atenolol 50 MG tablet 50 mg PO DAILY atorvastatin 40 MG tablet 40 mg PO QHS bupropion HCl 100 MG tablet 100 mg PO DAILY pantoprazole 40 MG tablet 40 mg PO DAILY gabapentin 100 mg capsule 100 mg PO 4X/DAY trazodone 100 mg tablet 100 mg PO QHS Label Comments: TAKE 1 TABLET BY MOUTH EVERY DAY AT BEDTIME oxybutynin chloride 5 mg tablet extended release 24hr 5 mg PO DAILY Label Comments: Take 1 tablet by mouth once daily. clopidogrel 75 mg Tablet 75 mg PO DAILY Qty: 30 0RF meclizine 25 mg tablet 25 mg PO DAILY PRN (Reason: dizziness) Qty: 30 0RF lisinopril 20 mg tablet 20 mg PO DAILY Label Comments: Take 1 tablet by mouth once daily. oxycodone 5 mg tablet 5 mg PO Q6H PRN (Reason: pain) 5 Days Qty: 20 0RF hydrochlorothiazide 12.5 mg capsule 12.5 mg PO DAILY Changed lorazepam 1 MG tablet 1 mg PO 4X/DAY PRN (Reason: Anxiety) Qty: 1 0RF Rx Instructions: takes at 0800, 1200, 1600, 2000 oxycodone [OxyContin] 10 mg tablet,oral only,ext.rel.12 hr 10 mg PO BID Qty: 1 0RF Referrals / Follow Up: Zully Rojas MD [Primary Care Provider] - Within 1 Week Disposition Disposition (needs filled in before D/C Order can be placed): Home Health Service
[2022-04-23 10:36] VITALS: BP 131/42
--- NOTE | 2022-04-23 10:38 | CASEMGMT ---
JOHN BYRNES called and left message for daughter Shyanne to update regarding HHC. NO answer, return contact information left.
[2022-04-23] MEDS: LORazepam 1 MG Tablet PO (10:44)
--- NOTE | 2022-04-23 12:43 | PCM.DC.SUM ---
Providers Date of Admission: 04/19/22 Primary Care Physician: Dr. Zully Rojas MD Consultations 04/19/22 14:19 Consult: Nephrology Routine Consulting Provider: Cuate Allison Reason for Consult: KRISTIN EMERGENT Consult: Yes MD Notified: Yes Date Notified: 04/19/22 Time Notified: 14:19 Method of Notification: Answering Service 04/19/22 16:31 Consult: Nephrology Routine Consulting Provider: Cuate Allison Reason for Consult: KRISTIN EMERGENT Consult: No MD Notified: Yes Date Notified: 04/19/22 Time Notified: 16:11 Method of Notification: ED Physician Initiated Reason For Visit: RENAL FAILURE, NSTEMI, DEHYDRATION, AMS Diagnosis Discharge Diagnosis (1) Hypotension: Status: Acute Code(s): I95.9 - Hypotension, unspecified (2) Dehydration: Status: Acute Code(s): E86.0 - Dehydration (3) Encephalopathy acute: Status: Acute Code(s): G93.40 - Encephalopathy, unspecified (4) KRISTIN (acute kidney injury): Status: Acute Code(s): N17.9 - Acute kidney failure, unspecified Medications at Discharge Home Medications levothyroxine 75 mcg tablet 88 mcg PO DAILY thyroid 09/06/17 citalopram 40 mg tablet 40 mg PO DAILY depression 12/18/17 atenolol 50 mg tablet 50 mg PO DAILY heart rate 01/05/18 atorvastatin 40 mg tablet 40 mg PO QHS cholesterol 01/05/18 albuterol sulfate 0.63 mg/3 mL solution for nebulization 0.63 mg inhalation Q4H PRN Congestion 07/14/18 bupropion HCl 100 mg tablet 100 mg PO DAILY mood 01/16/19 pantoprazole 40 mg tablet,delayed release 40 mg PO DAILY gerd 01/16/19 gabapentin 100 mg capsule 100 mg PO 4X/DAY pain 10/08/21 oxybutynin chloride 5 mg tablet,extended release 24 hr 5 mg PO DAILY bladder 10/08/21 trazodone 100 mg tablet 100 mg PO QHS sleep 10/08/21 clopidogrel 75 mg tablet 75 mg PO DAILY #30 tabs 10/21/21 meclizine 25 mg tablet 25 mg PO DAILY PRN dizziness #30 tabs 02/28/22 lisinopril 20 mg tablet 20 mg PO DAILY BP 04/10/22 oxycodone 5 mg tablet 5 mg PO Q6H PRN pain 5 days #20 tabs 04/14/22 hydrochlorothiazide 12.5 mg capsule 12.5 mg PO DAILY water pill 04/19/22 amlodipine 10 mg tablet 10 mg PO DAILY 30 days #30 tabs 04/23/22 lorazepam 1 mg tablet 1 mg PO 4X/DAY PRN Anxiety #1 TAB 04/23/22 oxycodone 10 mg tablet,crush resistant,extended release 12 hr (OxyContin) 10 mg PO BID pain #1 TAB 04/23/22 Hospital Course Operations None Procedures 2-D Echocardiogram Summary of Care Provided Minutes Spent on Discharge: 34 Hospital Course: Per HPI: MAURICE WALLACE, is a 76-year-old female with a history of depression, hypertension, COPD, GERD, hypothyroidism presented to [facility] 04/19/2022 with confusion from [facility], [place].? 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 Per her daughter she has not been getting up and moving around very well and she does not feel she has had enough care. In ED she was found to have white blood cell count of 15.7, hemoglobin 10.3, creatinine of 4.91, BUN 61, troponin 184.? Blood pressure initially 88/48 and she is given a 1 L bolus and blood pressure improved to 97/54. Hospitalist contacted for admission.? Patient evaluated at bedside, daughter not presently in the emergency department.? Patient wakes up and answers questions appropriately but does report being very tired and falls back to sleep.? She denies chest pain or changes in her breathing, reports very poor p.o. intake.? Reviewed form sent from [facility], [place] does appear she is receiving high doses of oxycodone as well as lorazepam and that combined with dehydration seems to lead to this clinical picture.? Patient did not voice any other complaints at time of exam. Hospital Course: 1. Acute metabolic and toxic encephalopathy secondary to KRISTIN and narcotics/elevated troponin?76-year-old female with a history of rectal cancer presented to the hospital with confusion from a her SNF. She was found to be in acute renal failure which was complicated by the fact that she is both on oxycodone and OxyContin. FENa demonstrated that her renal failure was indeed prerenal due to dehydration so she was started on IV fluids and had rapid improvement. She was again to be stable for discharge yesterday however she spiked her blood pressures so her home medications were restarted as her renal function had improved and she was also added Norvasc to her medication regimen. We slowly reintroduced her oxycodone, I decided to make her Ativan as needed and to decrease her OxyContin from 20 mg twice a day to 10 mg twice a day. She is also on gabapentin but this is only 100 mg 4 times daily so unlikely to be a significant contributor 20 encephalopathy. Her daughter was dissatisfied with the [facility] she [facility] and elected to take her home. I discussed with her about the plan for discharge and she expressed understanding of the risk and benefits of going home and would like to go home today. I do recommend that she follow-up with her PCP in 3 to 5 days for outpatient monitoring to monitor her hemoglobin which is low secondary to anemia, she does have multiple history of recent GI bleeds though there was not any apparent bleeding on this admission as well as monitoring her renal function. She denies any chest pain during this hospitalization elevated troponin was unremarkable and was likely related to her acute renal failure. Echo was obtained which was negative for any wall motion abnormality we will continue on her home medications. 2. Intractable pain due to avascular necrosis of the hip, depression, coronary artery disease status post stenting and CABG, GERD, hypertension, hypothyroidism, history of rectal cancer all chronic medical conditions which complicate her care. Her home medications were continued where appropriate. Medication adjustments were noted above. Physical Exam Narrative General: Alert, Oriented x3, Cooperative, No apparent distress HEENT: Atraumatic, PERRLA, EOMI, Normocephalic Oral: Moist Mucosa Neck: Supple, No JVD Lungs: Diminished, Normal air movement, No rhonchi, No wheeze, No rales Cardiovascular: Regular rate, Regular Rhythm, Normal S1, Normal S2, No murmurs Abdomen: Soft, Non Tender, Non-Distended, No Hepato-splenomegaly Extremities: No edema, Capillary Refill Less than 3 Seconds Skin: No rashes, No breakdown Musculoskeletal: No Tenderness to Palpation of Joints or Extremities Neurological: Cranial nerves II-XII grossly intact, Motor Exam 5/5 strength throughout, Sensory exam intact to light touch and pain Psych/Mental Status: Normal affect, Appropriate Weight / BMI Weight Weight: 134 lb 0.657 oz Body Mass Index (BMI) 25.3 ABG / Lab / Microbiology Data Result Diagrams: 04/22/22 04:43 04/22/22 04:43 Laboratory: Laboratory Results - last 24 hr 04/23/22 04:38: Magnesium 1.2 L Microbiology: Microbiology 04/19/22 13:00 Blood Culture (Wb) - Right Forearm Blood Culture - Preliminary No growth in 48 hours. 04/19/22 13:45 Blood Culture (Wb) - Right Forearm Blood Culture - Preliminary No growth in 48 hours. D/C Instructions Discharge Diet: Low fat / Low cholesterol Call your doctor if you observe: Fever of 101 or Higher, Shortness of breath, Dizziness, Fainting spells, Swelling in the ankles, Chest pain and Increased palpitations (irregular heartbeat) Meaningful Use Info Meaningful Use Diagnoses (Choose all that apply): None applicable Discharge Plan Admission Admit Date/Time: 04/19/22 15:57 Attending Provider: Cruz Roberts Primary Care Provider: Zully Rojas Consulting Providers: Cuate Allison ; Mellisa Lunsford ; Makeda Ayala Instructions Additional Instructions / Restrictions: Follow-up with your PCP in 3 to 5 days to monitor your renal function as well as your anemia Discharge Orders/Prescriptions Prescriptions: New amlodipine 10 mg Tablet 10 mg PO DAILY 30 Days Qty: 30 0RF Continued albuterol sulfate 0.63 mg/3 mL solution for nebulization 0.63 mg INHALATION Q4H PRN (Reason: Congestion) levothyroxine 75 MCG tablet 88 mcg PO DAILY citalopram 40 mg tablet 40 mg PO DAILY atenolol 50 MG tablet 50 mg PO DAILY atorvastatin 40 MG tablet 40 mg PO QHS bupropion HCl 100 MG tablet 100 mg PO DAILY pantoprazole 40 MG tablet 40 mg PO DAILY gabapentin 100 mg capsule 100 mg PO 4X/DAY trazodone 100 mg tablet 100 mg PO QHS Label Comments: TAKE 1 TABLET BY MOUTH EVERY DAY AT BEDTIME oxybutynin chloride 5 mg tablet extended release 24hr 5 mg PO DAILY Label Comments: Take 1 tablet by mouth once daily. clopidogrel 75 mg Tablet 75 mg PO DAILY Qty: 30 0RF meclizine 25 mg tablet 25 mg PO DAILY PRN (Reason: dizziness) Qty: 30 0RF lisinopril 20 mg tablet 20 mg PO DAILY Label Comments: Take 1 tablet by mouth once daily. oxycodone 5 mg tablet 5 mg PO Q6H PRN (Reason: pain) 5 Days Qty: 20 0RF hydrochlorothiazide 12.5 mg capsule 12.5 mg PO DAILY Changed lorazepam 1 MG tablet 1 mg PO 4X/DAY PRN (Reason: Anxiety) Qty: 1 0RF Rx Instructions: takes at 0800, 1200, 1600, 2000 oxycodone [OxyContin] 10 mg tablet,oral only,ext.rel.12 hr 10 mg PO BID Qty: 1 0RF Referrals / Follow Up: Zully Rojas MD [Primary Care Provider] - 04/30/22 3:20 am Disposition Disposition (needs filled in before D/C Order can be placed): Home Health Service Charges/Coding Visit Charges Inpatient E&M: 39513 Disch Hosp >30min
== END 2022-04-23 12:08 | disposition home health service (06) | DRG 682 ==
LOC: ED 15:36 → PCU 15:46
PROVIDERS: Hospitalist; Nurse Practitioner; Student in an Organized Health Care Education/Training Program; Admitting Provider Internal Medicine; Emergency Provider Emergency Medicine; PCP Internal Medicine; Visit Provider Family Medicine
DX: N17.9 Acute kidney failure, unspecified (principal); I21.A1 Myocardial infarction type 2; G92.8 Other toxic encephalopathy; E43 Unspecified severe protein-calorie malnutrition; M87.852 Other osteonecrosis, left femur; I95.9 Hypotension, unspecified; J44.9 Chronic obstructive pulmonary disease, unspecified; E86.0 Dehydration; I25.10 Atherosclerotic heart disease of native coronary artery without angina pectoris; E78.5 Hyperlipidemia, unspecified; I10 Essential (primary) hypertension; F17.210 Nicotine dependence, cigarettes, uncomplicated; K21.9 Gastro-esophageal reflux disease without esophagitis; I25.2 Old myocardial infarction; G89.29 Other chronic pain; F32.A Depression, unspecified; Z68.25 Body mass index [BMI] 25.0-25.9, adult; Z95.1 Presence of aortocoronary bypass graft; Z95.5 Presence of coronary angioplasty implant and graft; Z79.02 Long term (current) use of antithrombotics/antiplatelets; Z79.899 Other long term (current) drug therapy; Z85.048 Personal history of other malignant neoplasm of rectum, rectosigmoid junction, and anus; Z86.73 Personal history of transient ischemic attack (TIA), and cerebral infarction without residual deficits
CPT/HCPCS: 36415; 51702; 70450; 71045; 76770; 80048; 80053; 81001; 82436; 82550; 82570; 82728; 83540; 83550; 83605; 83735; 84133; 84300; 84484; 84540; 85025; 85610; 87040; 93005; 93306; 94668; 97162; 97166; 97530; 97535; 99252; 99285; 99406; J7030; A4216; G0463

== ENCOUNTER 2022-05-12 11:24 | Emergency (ER) | payer MEDICARE, SELFPAY ==
[2017-12-28 13:50] VITALS: BMI 29.2
[2022-05-12 11:24] VITALS: BP 169/65; PULSE 80; RESP 16; TEMP 36.4; O2SAT 100
[2022-05-12 11:32] VITALS: BP 157/70; PULSE 74; RESP 20; O2SAT 98
[2022-05-12 11:35] VITALS: BMI 24.8
--- NOTE | 2022-05-12 11:46 | RAD_ITS ---
STUDY: X-RAY - LEFT WRIST REASON FOR EXAM: Female, 76 years old. Injury TECHNIQUE: 3 view(s) of the wrist were obtained. COMPARISON: None. FINDINGS: Normal visualized distal radius and ulna. Normal radiocarpal articulation. Normal distal radioulnar articulation. Normal carpal bones. Normal carpal articulations. There is degenerative arthrosis of the carpometacarpal articulation of the thumb. Normal second through fifth carpometacarpal articulations. There is demineralization of the metacarpal bones. The soft tissue structures are unremarkable. RAD/Wrist min 3 Views IMPRESSION: Degenerative changes. No acute fracture is seen. Electronically Signed: Gonzales Dowell MD at 13:08 EDT ,
--- NOTE | 2022-05-12 11:46 | RAD_ITS ---
STUDY: X-RAY - PELVIS AND LEFT HIP REASON FOR EXAM: Female, 76 years old. Injury TECHNIQUE: 3 views of the pelvis and hip. COMPARISON: None. FINDINGS: There is a non-specific bowel gas pattern. Normal visualized soft tissue structures. There is narrowing with cortical sclerosis and osteophyte formation of the sacroiliac joint consistent with degenerative osteoarthritic changes. Normal bilateral superior and inferior pubic rami. There is narrowing with sclerosis of the pubic symphysis. Normal bilateral ischial tuberosities. Normal visualized femoral head. There is osteoarthritic spur formation of the acetabular rim. There is mild articular joint space narrowing of the hip. RAD/HIP, UNI W/ Pelvis 2-3 Views IMPRESSION: Degenerative changes. No fracture or dislocation is seen. Electronically Signed: Gonzales Dowell MD at 13:09 EDT ,
--- NOTE | 2022-05-12 11:46 | RAD_ITS ---
STUDY: X-RAY - LEFT HAND REASON FOR EXAM: Female, 76 years old. Pain following a fall. TECHNIQUE: 3 view(s) of the hand. COMPARISON: None. FINDINGS: Normal radiocarpal articulation. Normal distal radioulnar joint. Normal visualized carpal bones. Normal carpal articulations Normal carpometacarpal articulation of the thumb. Normal second through fifth carpometacarpal joints. Normal metacarpi. Normal metacarpophalangeal joint of the thumb. Normal interphalangeal joint of the thumb. Normal proximal and distal phalanges of the thumb. Normal metacarpophalangeal joints of the second through fifth fingers. There is diffuse articular joint space narrowing of the proximal and distal interphalangeal joints of the second through fifth fingers, but without erosive changes or periarticular soft tissue swelling. Normal phalanges of the second through fifth fingers. Soft tissue swelling. RAD/Hand Min 3 Views IMPRESSION: Degenerative joint disease of the hand, as described above. Electronically Signed: Gonzales Dowell MD at 13:07 EDT ,
--- NOTE | 2022-05-12 11:52 | EX.ED.DYSGE1 ---
HPI History of Present Illness Chief Complaint: Fall Informant: patient Onset/Context/Timing Onset: Today Narrative Narrative: Patient presents after a fall at home. She states she was trying to adjust herself on the commode when she fell landing on her left side. She is complaining of pain to her left hand and wrist as well as her left ankle and hip. She was able to walk on her leg. She denies striking her head or loss of consciousness. She takes Plavix but no other form of anticoagulation. She did not lose consciousness and has no headache. [facility] Medical History Acute leg pain Anemia Anxiety and depression Atherosclerosis of coronary artery bypass graft without angina pectoris Atherosclerosis of coronary artery of [place] heart with angina pectoris Avascular necrosis of bone of left hip Avascular necrosis of femur head, left Back pain Benzodiazepine dependence CAD (coronary artery disease) Carotid artery stenosis Community acquired pneumonia COPD (chronic obstructive pulmonary disease) COPD (chronic obstructive pulmonary disease) CVA (cerebral vascular accident) DDD (degenerative disc disease), lumbar Declining functional status Depression with anxiety Diastolic dysfunction Elevated troponin Essential (primary) hypertension Guaiac positive stools H/O: pneumonia Hemorrhoids, external History of rectal cancer History of thyroid cancer Hyperlipidemia Hypothyroidism Nicotine dependence Non-rheumatic mitral regurgitation Non-rheumatic tricuspid valve insufficiency Non-ST elevation (NSTEMI) myocardial infarction Obstructive sleep apnea Osteoarthritis of left hip Rectal cancer Secondary pulmonary arterial hypertension TIA (transient ischemic attack) TIA (transient ischemic attack) Unable to bear weight on left lower extremity Home Medications levothyroxine 75 mcg tablet 88 mcg PO DAILY thyroid 09/06/17 [History Last Taken 04/19/22] citalopram 40 mg tablet 40 mg PO DAILY depression 12/18/17 [History Last Taken 04/19/22] atenolol 50 mg tablet 50 mg PO DAILY heart rate 01/05/18 [History Last Taken 04/19/22] atorvastatin 40 mg tablet 40 mg PO QHS cholesterol 01/05/18 [History Last Taken 04/18/22] albuterol sulfate 0.63 mg/3 mL solution for nebulization 0.63 mg inhalation Q4H PRN Congestion 07/14/18 [History Last Taken 1 Week Ago ~10/01/21] bupropion HCl 100 mg tablet 100 mg PO DAILY mood 01/16/19 [History Last Taken 04/19/22] pantoprazole 40 mg tablet,delayed release 40 mg PO DAILY gerd 01/16/19 [History Last Taken 04/19/22] gabapentin 100 mg capsule 100 mg PO 4X/DAY pain 10/08/21 [History Last Taken 04/18/22] oxybutynin chloride 5 mg tablet,extended release 24 hr 5 mg PO DAILY bladder 10/08/21 [History Last Taken 04/19/22] trazodone 100 mg tablet 100 mg PO QHS sleep 10/08/21 [History Last Taken 04/18/22] clopidogrel 75 mg tablet 75 mg PO DAILY #30 tabs 10/21/21 [Rx Last Taken 04/18/22] meclizine 25 mg tablet 25 mg PO DAILY PRN dizziness #30 tabs 02/28/22 [Rx Last Taken 04/09/22] lisinopril 20 mg tablet 20 mg PO DAILY BP 04/10/22 [History Last Taken 04/19/22] oxycodone 5 mg tablet 5 mg PO Q6H PRN pain 5 days #20 tabs 04/14/22 [Rx Last Taken 04/17/22] hydrochlorothiazide 12.5 mg capsule 12.5 mg PO DAILY water pill 04/19/22 [History Last Taken 04/19/22] amlodipine 10 mg tablet 10 mg PO DAILY 30 days #30 tabs 04/23/22 [Rx Last Taken Unknown] lorazepam 1 mg tablet 1 mg PO 4X/DAY PRN Anxiety #1 TAB 04/23/22 [Rx Last Taken 04/19/22] oxycodone 10 mg tablet,crush resistant,extended release 12 hr (OxyContin) 10 mg PO BID pain #1 TAB 04/23/22 [Rx Last Taken 04/19/22] furosemide 20 mg tablet 20 mg PO 05/05/22 [History Last Taken Unknown] oxycodone 5 mg tablet 5 mg PO TID 3 days #9 tabs 05/12/22 [Rx Last Taken Unknown] Allergy/AdvReac Type Severity Reaction Status Date / Time morphine Allergy PT UNSURE Verified 05/12/22 11:26 Penicillins Allergy Hives Verified 05/12/22 11:26 tramadol HCl [From Ultram] Allergy PT UNSURE Verified 05/12/22 11:26 bupropion [From Wellbutrin] AdvReac hallucinati Verified 05/12/22 11:26 ons Family History Father Heart disease of heart attack at age 64 Mother Cancer of cancer at age 72 CVA (cerebral vascular accident) Surgical History History of appendectomy History of coronary artery bypass graft x 3 (~2007) History of coronary artery stent placement (10/10/21) History of left heart catheterization (10/10/21) Hx of cholecystectomy Hx of thyroidectomy Presence of stent in coronary artery (~10/10/21) Social History household members: significant other housing: house Smoking Status: Current every day smoker tobacco type: cigarettes details: Patient denies alcohol use substance use type: does not use ROS ROS ED Constitutional Constitutional ED: Denies chills or fever(s) Eyes Eyes: Denies change in vision or discharge from eye(s) ENT ENT ED: Denies discharge from eye(s), rhinorrhea or sore throat Cardiovascular Cardiovascular: Denies chest pain or palpitations Respiratory/Chest Respiratory/Chest: Denies cough or dyspnea Gastrointestinal Gastrointestinal: Denies abdominal pain, nausea or vomiting Genitourinary Genitourinary ED: Denies difficulty urinating or dysuria Musculoskeletal Musculoskeletal: Reports extremity pain; Denies back pain Integumentary Denies Abrasions or rash Neurologic Neurologic: Denies headache(s) or weakness Allergic/Immunologic Allergic/Immunologic ED: Denies lip swelling or urticaria EXAM Physical Exam Const Vital Signs: 05/12/22 11:24 05/12/22 11:32 Temperature 97.5 F L Temperature Source Temporal Pulse Rate 80 74 Respiratory Rate 16 20 H Blood Pressure 169/65 H 157/70 H Blood Pressure Mean 99 99 Pulse Ox 100 98 Oxygen Delivery Method Room Air Room Air Positive well nourished and well developed General Appearance ED: well developed HEENT Reports normocephalic and head/scalp atraumatic Eyes PERRL and EOMs intact bilaterally Neck supple Chest Wall inspection of chest normal and palpation of chest normal Resp normal respiratory effort and clear to auscultation bilaterally Cardio regular rate and regular rhythm GI normal to inspection, nondistended, normoactive bowel sounds Palpation: soft Back/Spine Back/Spine Narrative: Tenderness of the left SI joint. No midline lumbar tenderness. Extremity Extremity Narrative: Diffuse tenderness in the left hand with mild tenderness in the left wrist. No obvious deformity. Patient holds her finger slightly flexed. She is able to wiggle all fingers and has good cap refill and sensation. Patient with mild tenderness of the left hip, worsened with logroll. Equal leg lengths noted. Mild tenderness noted to the left ankle. No edema or ecchymosis. No tenderness over the foot itself. Neuro oriented x3 Sensorium / Orientation: alert Psych mental status grossly normal Skin no rashes or lesions noted MDM MDM MDM Narrative Medical decision making narrative: Patient was given oxycodone for pain which she has tolerated well in the past. X-rays of the left wrist, left hand, left hip and left ankle are obtained to rule out fracture. Radiography Diagnostic Testing: Clinical Impression(s) from Imaging Studies Hand X-Ray 05/12/22 11:46 IMPRESSION: Degenerative joint disease of the hand, as described above. Electronically Signed: Gonzales Dowell MD at 13:07 EDT , Hip/Pelvis X-Ray 05/12/22 11:46 IMPRESSION: Degenerative changes. No fracture or dislocation is seen. Electronically Signed: Gonzales Dowell MD at 13:09 EDT , Wrist X-Ray 05/12/22 11:46 IMPRESSION: Degenerative changes. No acute fracture is seen. Electronically Signed: Gonzales Dowell MD at 13:08 EDT , Ankle X-Ray 05/12/22 12:10 IMPRESSION: No acute abnormality is seen. Electronically Signed: Gonzales Dowell MD at 12:45 EDT , Treatment and Re-Evaluation :: X-rays per my interpretation reveal osteopenia and arthritic changes with no evidence of acute fracture on any study. Radiology interpretation all studies is reviewed and agrees. Test results are discussed with the patient. Fidel wrap is applied to the left wrist and hand as well as the left ankle. Patient will be written for a few tabs of oxycodone to help with breakthrough pain. She will be discharged to home. Discharge Plan Triage Chief Complaint: Fall ED Provider: Maci Kruse Dx/Rx/DC Orders Clinical Impression: Fall, Sprain of hand, left, Left ankle sprain Instructions: ED Hand Sprain, ED Ankle Sprain (Adult) Prescriptions: New oxycodone 5 mg tablet 5 mg PO TID 3 Days Qty: 9 0RF No Action albuterol sulfate 0.63 mg/3 mL solution for nebulization 0.63 mg INHALATION Q4H PRN (Reason: Congestion) furosemide 20 mg tablet 20 mg PO levothyroxine 75 MCG tablet 88 mcg PO DAILY citalopram 40 mg tablet 40 mg PO DAILY atenolol 50 MG tablet 50 mg PO DAILY atorvastatin 40 MG tablet 40 mg PO QHS bupropion HCl 100 MG tablet 100 mg PO DAILY pantoprazole 40 MG tablet 40 mg PO DAILY gabapentin 100 mg capsule 100 mg PO 4X/DAY trazodone 100 mg tablet 100 mg PO QHS Label Comments: TAKE 1 TABLET BY MOUTH EVERY DAY AT BEDTIME oxybutynin chloride 5 mg tablet extended release 24hr 5 mg PO DAILY Label Comments: Take 1 tablet by mouth once daily. clopidogrel 75 mg Tablet 75 mg PO DAILY Qty: 30 0RF meclizine 25 mg tablet 25 mg PO DAILY PRN (Reason: dizziness) Qty: 30 0RF lisinopril 20 mg tablet 20 mg PO DAILY Label Comments: Take 1 tablet by mouth once daily. oxycodone 5 mg tablet 5 mg PO Q6H PRN (Reason: pain) 5 Days Qty: 20 0RF hydrochlorothiazide 12.5 mg capsule 12.5 mg PO DAILY amlodipine 10 mg Tablet 10 mg PO DAILY 30 Days Qty: 30 0RF lorazepam 1 MG tablet 1 mg PO 4X/DAY PRN (Reason: Anxiety) Qty: 1 0RF Rx Instructions: takes at 0800, 1200, 1600, 2000 oxycodone [OxyContin] 10 mg tablet,oral only,ext.rel.12 hr 10 mg PO BID Qty: 1 0RF Primary Care Provider: Zully Rojas Referrals: Zully Rojas MD [Primary Care Provider] - 1-2 Weeks Disposition Disposition: Home, Self Care
[2022-05-12] MEDS: oxyCODONE 5 MG Tablet PO (11:53)
--- NOTE | 2022-05-12 12:10 | RAD_ITS ---
STUDY: X-RAY - LEFT ANKLE REASON FOR EXAM: Female, 76 years old. Left ankle pain due to a fall. TECHNIQUE: 3 view(s) of the ankle. COMPARISON: None. FINDINGS: Normal visualized distal tibia and fibula. Normal medial and lateral malleoli. Normal tibiotalar articulation and ankle mortise. Normal visualized talus and calcaneus. The visualized subtalar, talonavicular, calcaneocuboid and tarsal articulations are normal. The soft tissue structures are unremarkable. RAD/Ankle min 3 Views IMPRESSION: No acute abnormality is seen. Electronically Signed: Gonzales Dowell MD at 12:45 EDT ,
[2022-05-12] MEDS: LORazepam 1 MG Tablet PO (12:54)
== END 2022-05-12 14:12 | disposition home or self-care (01) ==
PROVIDERS: Emergency Provider Emergency Medicine; PCP Internal Medicine; Visit Provider Emergency Medicine
DX: S63.92XA Sprain of unspecified part of left wrist and hand, initial encounter (principal); S93.402A Sprain of unspecified ligament of left ankle, initial encounter; I25.10 Atherosclerotic heart disease of native coronary artery without angina pectoris; F17.210 Nicotine dependence, cigarettes, uncomplicated; I25.2 Old myocardial infarction; Z86.73 Personal history of transient ischemic attack (TIA), and cerebral infarction without residual deficits; Z95.1 Presence of aortocoronary bypass graft; Z95.5 Presence of coronary angioplasty implant and graft; W18.11XA Fall from or off toilet without subsequent striking against object, initial encounter; Z79.01 Long term (current) use of anticoagulants
CPT/HCPCS: 73110; 73130; 73502; 73610; 99281

== ENCOUNTER → 2022-05-19 | Outpatient (CLI) | payer MEDICARE, SELFPAY ==
[2017-12-28 13:50] VITALS: BMI 29.2
--- NOTE | 2022-05-19 14:10 | RAD_ITS ---
EXAM: XR LUMBOSACRAL SPINE, 2 OR 3 VIEWS CLINICAL INDICATION: Chronic low back pain. Left hip radiculopathy. TECHNIQUE: Frontal and lateral views of the lumbar spine and sacrum. This report was created using [employer] report generation technology. COMPARISON: Lumbar spine radiographs of 04/10/2022. FINDINGS: VERTEBRAE: Interval development of mild to moderate thoracolumbar levoscoliosis, probably positional. Osseous structures remain demineralized. No compression fracture. Severe lumbar facet arthritis again noted. Interval development of grade 1 anterolisthesis of L3 on L4. OTHER BONES/JOINTS: Findings of previous median sternotomy and CABG are noted; a solitary sternal wire is visualized and shows focal disruption of this wire. DISC SPACES: Progressive loss of disc space height at the L4/5 and L5/S1 levels; these 2 disc spaces are now severely narrowed. Stable mild degenerative narrowing of the L3/4 disc space. The upper lumbar disc spaces are relatively preserved. VASCULATURE: Mild atherosclerotic vascular calcification is present. GASTROINTESTINAL TRACT: Cholecystectomy clips are present. Bowel gas pattern is non-obstructive. OTHER FINDINGS: The visualized lower lungs are clear. RAD/Lumbar Spine 2 or 3 Views IMPRESSION: Interval development of severe degenerative disc space narrowing at the L4/5 and L5/S1 levels. Severe lumbar facet arthritis with development of grade 1 anterolisthesis of L3 on L4. No acute fracture. Electronically Signed: Rick Leigh MD at 6:43 EDT ,
== END | disposition home or self-care (01) ==
LOC: RAD 14:06
PROVIDERS: PCP Internal Medicine; Referring Provider Anesthesiology Pain Medicine; Visit Provider Anesthesiology Pain Medicine
DX: M51.37 Other intervertebral disc degeneration, lumbosacral region (principal)
CPT/HCPCS: 72100

== ENCOUNTER → 2022-06-24 | Outpatient (CLI) | payer MEDICARE, SELFPAY ==
[2017-12-28 13:50] VITALS: BMI 29.2
--- NOTE | 2022-06-24 13:00 | MRI_ITS ---
STUDY: MRI LUMBAR SPINE WITHOUT CONTRAST REASON FOR EXAM: Female, 77 years old. RADICULOPATHY, lbp, left leg pain TECHNIQUE: Standardized fat and water weighted pulse sequences were obtained in the sagittal and axial planes. COMPARISON: June 29, 2017 FINDINGS: T12-L1: Normal endplates. Normal disc height, hydration and morphology. Normal bilateral facet joints. Normal central canal and bilateral lateral recesses. Normal bilateral intervertebral neural foramina. Normal lumbar lordosis. There is no substantial scoliosis. Normal conus medullaris that terminates at the L1-2: Normal endplates. Normal disc height, desiccation and minimal annular bulge.. Normal bilateral facet joints. Normal central canal and bilateral lateral recesses. Normal bilateral intervertebral neural foramina. L2-3: Normal endplates. Normal disc height, desiccation and normal morphology. Normal bilateral facet joints. Normal central canal and bilateral lateral recesses. Normal bilateral intervertebral neural foramina. L3-4: Normal endplates. Normal disc height, desiccation mild annular bulge with small right foraminal disc protrusion. Facet arthropathy and thickening of ligamenta flava. Moderate central canal and bilateral lateral recess stenosis. Severe right neural foraminal stenosis and moderate narrowing on the left.. Normal L4-5: There is a compression fracture of L4 with approximately 30% loss of vertebral body height demonstrating intramedullary bone marrow edema. Normal disc height, desiccation mild annular bulge.. Facet arthropathy and mild thickening of ligamenta flava slightly more pronounced on the right. Normal central canal and bilateral lateral recesses. Moderate right neural foraminal stenosis and mild narrowing on the left.. L5-S1: There is intramedullary bone marrow edema within the inferior endplate of L5 and superior endplate of S1 with hairline fractures Normal disc height, desiccation and minimal annular bulge with tiny right paracentral disc/osteophyte protrusion... Normal bilateral facet joints. Normal central canal and bilateral lateral recesses. Normal bilateral intervertebral neural foramina. Normal visualized sacral ala. Normal visualized paraspinous soft tissue structures The fractures are new findings when compared to previous exam and there has been interval progression of the degenerative disc disease.. MRI/Spine Lumbar (Routine) IMPRESSION: Findings consistent with acute compression fracture of L4 and hairline fractures of L5 and S1 . Spinal stenosis at L3-4 and L4-5 more severe on the right secondary to disc disease and bony hypertrophy Electronically Signed: Hany Desai MD at 20:33 EDT ,
== END | disposition home or self-care (01) ==
LOC: MRI 12:23
PROVIDERS: PCP Internal Medicine; Referring Provider Anesthesiology Pain Medicine; Visit Provider Anesthesiology Pain Medicine
DX: M54.18 Radiculopathy, sacral and sacrococcygeal region (principal)
CPT/HCPCS: 72148

== ENCOUNTER 2022-07-12 13:47 | Emergency (ER) | payer MEDICARE, SELFPAY ==
[2017-12-28 13:50] VITALS: BMI 29.2
[2022-07-12 13:53] VITALS: BP 111/48; PULSE 70; RESP 18; TEMP 36.5; O2SAT 97; BMI 25.0
--- NOTE | 2022-07-12 13:59 | EKG12_ITS ---
Test Reason : CP Blood Pressure : / mmHG Vent. Rate : 063 BPM Atrial Rate : 063 BPM P-R Int : 188 ms QRS Dur : 096 ms QT Int : 426 ms P-R-T Axes : 090 042 137 degrees QTc Int : 435 ms Normal sinus rhythm Nonspecific ST and T wave abnormality Abnormal ECG Confirmed by CONSUELO GOLD, EDDY ([id number]), scientific editor WALLY LOAIZA ([id number]) on 07/15/2022 8:36:33 AM Referred By: Confirmed By:EDDY CORDERO MD
--- NOTE | 2022-07-12 14:00 | RAD_ITS ---
EXAM: XR CHEST, 2 VIEWS CLINICAL INDICATION: Chest pain. TECHNIQUE: Frontal and lateral views of the chest. COMPARISON: 04/19/2022. FINDINGS: LUNGS AND PLEURAL SPACES: Unremarkable. No pneumothorax. No effusion. No suspicious infiltrates. HEART: Unremarkable. Normal cardiac size. MEDIASTINUM: Central airways and mediastinal contour are unremarkable. BONES/JOINTS: Sternal wires remain intact. Old fracture deformity of the left humeral head is unchanged SOFT TISSUES: Unremarkable. RAD/Chest PA and Lateral IMPRESSION: 1. No acute findings in the chest. 2. No significant interval change when compared to 04/19/2022 Electronically Signed: Julian Ford MD at 15:26 EDT ,
[2022-07-12] MEDS: LORazepam 1 MG Tablet PO (14:05)
[2022-07-12 14:14] LABS: Absolute Lymphocyte Count 2.43 X10^3/uL (0.83-4.51); Absolute Neutrophil Count 8.6 X10^3/uL (2.0-7.7); Basophil# 0.05 X10^3/uL; Basophil% 0.4 % (0-1); Eosinophil# 0.19 X10^3/uL; Eosinophils% 1.6 % (0-5); Hematocrit 36.6 % (37-47); Hemoglobin 11.1 g/dL (12.0-15.0); Lymphocyte # 2.43 X10^3/ul (0.83-4.51); Lymphocyte % 20.1 % (19-41); Mean Corp Hgb Conc 30.3 g/dL (32-36); Mean Corpuscular Hgb 26.9 pg (27.0-32.0); Mean Corpuscular Volume 88.6 fL (81-99); Mean Platelet Vol. 9.3 fl (6.2-12.0); Monocyte# 0.68 X10^3/uL; Monocyte% 5.6 % (0-10); NRBC Flagged by Analyzer 0 % (0-5); Neutrophil # 8.63 X10^3/uL (2.7-7.7); Neutrophil % 71.4 % (47-70); Platelet Count 437 K/mm3 (150-450); RBC Distribution Width SD 57.7 fl (35.1-43.9); Red Blood Count 4.13 M/mm3 (4.2-5.4); White Blood Count 12.1 K/mm3 (4.4-11.0)
[2022-07-12 14:29] LABS: Anion Gap 5 (5-15); BUN 14 mg/dL (7-18); BUN/Creat Ratio 16.3 RATIO (10-20); Calcium,Total 8.8 mg/dL (8.5-10.1); Chloride 104 mmol/L (98-107); Creatinine, Serum 0.86 mg/dL (0.55-1.02); EST Glomerular Filtration Rate 69 mL/min (>60); Est Glom Filt Rate - Afr Amer 83 mL/min (>60); Glucose 142 mg/dL (74-106); Potassium 3.7 mmol/L (3.5-5.1); Sodium Level 140 mmol/L (136-145); Troponin-I HS 16 pg/mL (3.0-54.0)
[2022-07-12 14:57] VITALS: BP 121/53; PULSE 60; RESP 20; O2SAT 95
--- NOTE | 2022-07-12 15:34 | EDS_ITS ---
HPI History of Present Illness Chief Complaint: Chest Pain Informant: patient Narrative Narrative: Patient is a 77-year-old female with history of coronary artery disease, anxiety on chronic Ativan 1 mg 4 times a day, COPD/chronic bronchitis and some type of cancer that patient does not know the details of presenting for heart racing and concern of withdrawal from Ativan. Patient states when her medications were mailed to her that her Ativan was not in there. She states she has not had it since yesterday and she is starting to feel like she does not have control of her body. She states her heart was racing today. She felt shaky and her blood pressure was elevated. 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 Patient states that she has a history of some type of cancer and is worried that her heart racing would be bad for her cancer. She came to the emergency room for further evaluation. No other complaints at this time. [facility] Medical History Acute leg pain Anemia Anxiety and depression Atherosclerosis of coronary artery bypass graft without angina pectoris Atherosclerosis of coronary artery of [place] heart with angina pectoris Avascular necrosis of bone of left hip Avascular necrosis of femur head, left Back pain Benzodiazepine dependence CAD (coronary artery disease) Carotid artery stenosis Community acquired pneumonia COPD (chronic obstructive pulmonary disease) COPD (chronic obstructive pulmonary disease) CVA (cerebral vascular accident) DDD (degenerative disc disease), lumbar Declining functional status Depression with anxiety Diastolic dysfunction Elevated troponin Essential (primary) hypertension Guaiac positive stools H/O: pneumonia Hemorrhoids, external History of rectal cancer History of thyroid cancer Hyperlipidemia Hypothyroidism Nicotine dependence Non-rheumatic mitral regurgitation Non-rheumatic tricuspid valve insufficiency Non-ST elevation (NSTEMI) myocardial infarction Obstructive sleep apnea Osteoarthritis of left hip Rectal cancer Secondary pulmonary arterial hypertension TIA (transient ischemic attack) TIA (transient ischemic attack) Unable to bear weight on left lower extremity Home Medications levothyroxine 75 mcg tablet 75 mcg PO DAILY thyroid 09/06/17 [History Last Taken 04/19/22] citalopram 40 mg tablet 40 mg PO DAILY depression 12/18/17 [History Last Taken 04/19/22] atenolol 50 mg tablet 50 mg PO DAILY heart rate 01/05/18 [History Last Taken 04/19/22] atorvastatin 40 mg tablet 40 mg PO QHS cholesterol 01/05/18 [History Last Taken 04/18/22] albuterol sulfate 0.63 mg/3 mL solution for nebulization 0.63 mg inhalation Q4H PRN Congestion 07/14/18 [History Last Taken 1 Week Ago ~10/01/21] bupropion HCl 100 mg tablet 100 mg PO DAILY mood 01/16/19 [History Last Taken 04/19/22] pantoprazole 40 mg tablet,delayed release 40 mg PO BID gerd 01/16/19 [History Last Taken 04/19/22] gabapentin 100 mg capsule 200 mg PO TID pain 10/08/21 [History Last Taken 04/18/22] oxybutynin chloride 5 mg tablet,extended release 24 hr 5 mg PO DAILY bladder 10/08/21 [History Last Taken 04/19/22] trazodone 100 mg tablet 100 mg PO QHS sleep 10/08/21 [History Last Taken 04/18/22] lisinopril 20 mg tablet 20 mg PO DAILY BP 04/10/22 [History Last Taken 04/19/22] amlodipine 10 mg tablet 10 mg PO DAILY 30 days #30 tabs 04/23/22 [Rx Last Taken Unknown] clopidogrel 75 mg tablet 75 mg PO QODAY 07/12/22 [History Last Taken Unknown] doxycycline hyclate 100 mg tablet 100 mg PO BID 07/12/22 [History Last Taken Unknown] lorazepam 1 mg tablet 1 mg PO 4X/DAY anxiety 07/12/22 [History Last Taken Unknown] lorazepam 1 mg tablet (Ativan) 1 mg PO Q6H 3 days #12 tabs 07/12/22 [Rx Last Taken Unknown] Allergy/AdvReac Type Severity Reaction Status Date / Time morphine Allergy PT UNSURE Verified 07/12/22 13:55 Penicillins Allergy Hives Verified 07/12/22 13:55 tramadol HCl [From Ultram] Allergy PT UNSURE Verified 07/12/22 13:55 bupropion [From Wellbutrin] AdvReac hallucinati Verified 07/12/22 13:55 ons Family History Father Heart disease of heart attack at age 64 Mother Cancer of cancer at age 72 CVA (cerebral vascular accident) Surgical History History of appendectomy History of coronary artery bypass graft x 3 (~2007) History of coronary artery stent placement (10/10/21) History of left heart catheterization (10/10/21) Hx of cholecystectomy Hx of thyroidectomy Presence of stent in coronary artery (~10/10/21) Social History household members: significant other housing: house Smoking Status: Current every day smoker tobacco type: cigarettes details: Patient denies alcohol use substance use type: does not use ROS ROS ED Constitutional Constitutional ED: Reports sweats; Denies chills or fever(s) Eyes Eyes: Denies change in vision ENT ENT ED: Denies sore throat Cardiovascular Cardiovascular: Reports as per HPI and palpitations; Denies chest pain Respiratory/Chest Respiratory/Chest: Denies cough or dyspnea Gastrointestinal Gastrointestinal: Denies abdominal pain, nausea or vomiting Musculoskeletal Musculoskeletal: Denies arthralgias or myalgias Integumentary Denies rash Neurologic Neurologic: Denies headache(s), paresthesias or weakness Psychiatric Psychiatric: Reports anxiety Hematologic/Lymphatic Hematologic/Lymphatic: Denies easy bleeding or easy bruising EXAM Physical Exam Const Vital Signs: 07/12/22 13:53 07/12/22 14:57 07/12/22 14:57 Temperature 97.7 F L Temperature Source Temporal Pulse Rate 70 60 Respiratory Rate 18 20 H Respiratory Effort Normal Non-Labored Respiratory Pattern Normal Blood Pressure 111/48 L 121/53 H Blood Pressure Mean 69 75 Pulse Ox 97 95 Oxygen Delivery Method Room Air Room Air 07/12/22 14:57 07/12/22 15:52 Temperature Temperature Source Pulse Rate 66 Respiratory Rate 20 H Respiratory Effort Respiratory Pattern Blood Pressure 112/55 L Blood Pressure Mean Pulse Ox 98 Oxygen Delivery Method Room Air Positive well nourished and well developed General Appearance ED: well developed and NAD HEENT Reports dry mucous membranes normocephalic and atraumatic Mouth ED: Yes dry mucous membranes Mouth: dry mucous membranes Eyes PERRL and EOMs intact bilaterally Neck supple and no JVD Chest Wall inspection of chest normal and palpation of chest normal Resp normal respiratory effort and clear to auscultation bilaterally Cardio regular rate, regular rhythm and no murmurs GI normal to inspection, nondistended, normoactive bowel sounds and soft to pa lpation Extremity normal to inspection General Extremety ED: Negative for edema or pulses abnormal General Extremity: Negative for edema or pulses abnormal Neuro oriented x3 Sensorium / Orientation: awake and alert Motor Exam: Negative for general weakness Psych mental status grossly normal Mood & Affect: anxious Skin no rashes or lesions noted and no wounds MDM MDM MDM Narrative Medical decision making narrative: Is evaluated for palpitations. She came in as a complaining of chest pain however her main complaint actually seems to be that she ran out of her Ativan. I suspect patient might be going into benzodiazepine withdrawal which can be life-threatening. Patient is given oral Ativan with complete resolution of her symptoms in the emergency room. Due to her age and comorbidities I did obtain cardiac work-up including a high-sensitivity troponin, EKG, CBC and BMP. Patient has a mild leukocytosis of 12.1 which is nonspecific and of uncertain etiology. She is not reporting any fever does not have an obvious source of infection on exam. Will defer antibiotics at this time. She does not appear septic by any means. She does not have any significant electrolyte abnormalities. Because of the life-threatening potential of benzodiazepine withdrawal I will provide her a short course of Ativan to get her through the weekend and so she can contact her prescribing physician on Thursday. [facility] report does show that patient does regularly receive a prescription of 1 mg 4 times a day lorazepam and she was due to run out at the beginning of this month. Patient is quite agreeable this plan of care. Is counseled return precautions. Discharged home in stable condition. Lab Data Attestation: I reviewed the patient's lab results. Labs: Laboratory Results - last 24 hr 07/12/22 07/12/22 13:35 13:35 WBC 12.1 H RBC 4.13 L Hgb 11.1 L Hct 36.6 L MCV 88.6 MCH 26.9 L MCHC 30.3 L RDW Std Deviation 57.7 H RDW Coeff of John 18.0 H Plt Count 437 MPV 9.3 Immature Gran % (Auto) 0.900 Neut % (Auto) 71.4 H Lymph % (Auto) 20.1 [place] % (Auto) 5.6 Eos % (Auto) 1.6 Baso % (Auto) 0.4 Absolute Neuts (auto) 8.6 H Absolute Lymphs (auto) 2.43 Nucleated RBC % 0 Sodium 140 Potassium 3.7 Chloride 104 Carbon Dioxide 31.0 Anion Gap 5 BUN 14 Creatinine 0.86 Estim Creat Clear Calc 40.60 Est GFR (MDRD) Af Amer 83 Est GFR (MDRD) Non-Af 69 BUN/Creatinine Ratio 16.3 Glucose 142 H Calcium 8.8 Troponin I High Sens 16 Radiography Chest X-Ray - ED: 2 View, Read by ED Physician, Read by Radiologist and No Acute Disease Diagnostic Testing: Clinical Impression(s) from Imaging Studies Chest X-Ray 07/12/22 14:00 IMPRESSION: 1. No acute findings in the chest. 2. No significant interval change when compared to 04/19/2022 Electronically Signed: Julian Ford MD at 15:26 EDT , Rhythm Strip Rhythm Strip: Sinus Rhythm Rate: 63 Ectopy: None EKG Initial EKG: Attestation: I personally reviewed and interpreted this EKG as follows: Interpretation: Sinus Rhythm Comments: Normal sinus rhythm at a rate of 63 bpm Normal axis Nonspecific T wave changes Discharge Plan Triage Chief Complaint: Chest Pain ED Provider: Danica Casillas Dx/Rx/DC Orders Clinical Impression: Dehydration, Benzodiazepine dependence Instructions: ED Benzodiazepine Withdrawal Prescriptions: New lorazepam [Ativan] 1 mg tablet 1 mg PO Q6H 3 Days Qty: 12 0RF No Action albuterol sulfate 0.63 mg/3 mL solution for nebulization 0.63 mg INHALATION Q4H PRN (Reason: Congestion) levothyroxine 75 MCG tablet 75 mcg PO DAILY citalopram 40 mg tablet 40 mg PO DAILY atenolol 50 MG tablet 50 mg PO DAILY atorvastatin 40 MG tablet 40 mg PO QHS bupropion HCl 100 MG tablet 100 mg PO DAILY pantoprazole 40 MG tablet 40 mg PO BID gabapentin 100 mg capsule 200 mg PO TID trazodone 100 mg tablet 100 mg PO QHS Label Comments: TAKE 1 TABLET BY MOUTH EVERY DAY AT BEDTIME oxybutynin chloride 5 mg tablet extended release 24hr 5 mg PO DAILY Label Comments: Take 1 tablet by mouth once daily. lisinopril 20 mg tablet 20 mg PO DAILY Label Comments: Take 1 tablet by mouth once daily. amlodipine 10 mg Tablet 10 mg PO DAILY 30 Days Qty: 30 0RF doxycycline hyclate 100 mg tablet 100 mg PO BID clopidogrel 75 mg tablet 75 mg PO QODAY lorazepam 1 MG tablet 1 mg PO 4X/DAY Rx Instructions: takes at 0800, 1200, 1600, 2000 Primary Care Provider: Zully Rojas Referrals: Zully Rojas MD [Primary Care Provider] - Activity Restrictions/Additional Instructions: Please make sure you call your prescribing doctor for your lorazepam (Ativan) first thing Thursday morning so refill can be sent in. It is possible you might need to go into the office to get this refilled. If you have further chest pain or other concerns please return to the emergency room. Disposition Disposition: Home, Self Care Discharge Date/Time: 07/12/22 15:59
[2022-07-12 15:52] VITALS: BP 112/55; PULSE 66; RESP 20; O2SAT 98
== END 2022-07-12 15:59 | disposition home or self-care (01) ==
PROVIDERS: Emergency Provider Emergency Medicine; PCP Internal Medicine; Visit Provider Emergency Medicine
DX: F13.239 Sedative, hypnotic or anxiolytic dependence with withdrawal, unspecified (principal); J44.9 Chronic obstructive pulmonary disease, unspecified; E78.5 Hyperlipidemia, unspecified; F17.210 Nicotine dependence, cigarettes, uncomplicated; I10 Essential (primary) hypertension; E86.0 Dehydration; I25.10 Atherosclerotic heart disease of native coronary artery without angina pectoris; F41.9 Anxiety disorder, unspecified; Z79.899 Other long term (current) drug therapy; Z76.0 Encounter for issue of repeat prescription
CPT/HCPCS: 71046; 80048; 84484; 85025; 93005; 99285; A4216

== ENCOUNTER 2022-08-29 16:38 | Emergency (ER) | payer MEDICARE, SELFPAY ==
[2017-12-28 13:50] VITALS: BMI 29.2
[2022-08-29 16:39] VITALS: BP 124/58; PULSE 71; RESP 4; TEMP 37.1; O2SAT 98
[2022-08-29 19:19] VITALS: BP 126/55; PULSE 71; RESP 18; TEMP 36.8; O2SAT 98; BMI 25.7
--- NOTE | 2022-08-29 19:46 | EDS_ITS ---
HPI <ROSA Barrientos - Last Filed: 08/29/22 19:52> History of Present Illness Chief Complaint: Wound Narrative Narrative: Patient is a 77-year-old female with history of hypertension, CAD, hyperlipidemia, hypothyroidism who presents to the emergency department for wound check. Patient states that 7 days ago, she struck her amato on her left lower extremity on a wheelchair. Over the last 3 to 4 days, she is been having worsening pain, redness and she is concerned for infection. She denies any fever or chills. Denies any numbness or tingling. PFSH <ROSA Barrientos - Last Filed: 08/29/22 19:52> FORMERLY [facility] Medical History Acute leg pain Anemia Anxiety and depression Atherosclerosis of coronary artery bypass graft without angina pectoris Atherosclerosis of coronary artery of [place] heart with angina pectoris Avascular necrosis of bone of left hip Avascular necrosis of femur head, left Back pain Benzodiazepine dependence CAD (coronary artery disease) Carotid artery stenosis Community acquired pneumonia COPD (chronic obstructive pulmonary disease) COPD (chronic obstructive pulmonary disease) CVA (cerebral vascular accident) DDD (degenerative disc disease), lumbar Declining functional status Depression with anxiety Diastolic dysfunction Elevated troponin Essential (primary) hypertension Guaiac positive stools H/O: pneumonia Hemorrhoids, external History of rectal cancer History of thyroid cancer Hyperlipidemia Hypothyroidism Nicotine dependence Non-rheumatic mitral regurgitation Non-rheumatic tricuspid valve insufficiency Non-ST elevation (NSTEMI) myocardial infarction Obstructive sleep apnea Osteoarthritis of left hip Rectal cancer Secondary pulmonary arterial hypertension TIA (transient ischemic attack) TIA (transient ischemic attack) Unable to bear weight on left lower extremity Home Medications levothyroxine 75 mcg tablet 75 mcg PO DAILY thyroid 09/06/17 [History Last Taken 04/19/22] citalopram 40 mg tablet 40 mg PO DAILY depression 12/18/17 [History Last Taken 04/19/22] atenolol 50 mg tablet 50 mg PO DAILY heart rate 01/05/18 [History Last Taken 04/19/22] atorvastatin 40 mg tablet 40 mg PO QHS cholesterol 01/05/18 [History Last Taken 04/18/22] albuterol sulfate 0.63 mg/3 mL solution for nebulization 0.63 mg inhalation Q4H PRN Congestion 07/14/18 [History Last Taken 1 Week Ago ~10/01/21] bupropion HCl 100 mg tablet 100 mg PO DAILY mood 01/16/19 [History Last Taken 04/19/22] pantoprazole 40 mg tablet,delayed release 40 mg PO BID gerd 01/16/19 [History Last Taken 04/19/22] gabapentin 100 mg capsule 200 mg PO TID pain 10/08/21 [History Last Taken 04/18/22] oxybutynin chloride 5 mg tablet,extended release 24 hr 5 mg PO DAILY bladder 10/08/21 [History Last Taken 04/19/22] trazodone 100 mg tablet 100 mg PO QHS sleep 10/08/21 [History Last Taken 04/18/22] lisinopril 20 mg tablet 20 mg PO DAILY BP 04/10/22 [History Last Taken 04/19/22] amlodipine 10 mg tablet 10 mg PO DAILY 30 days #30 tabs 04/23/22 [Rx Last Taken Unknown] clopidogrel 75 mg tablet 75 mg PO QODAY 07/12/22 [History Last Taken Unknown] doxycycline hyclate 100 mg tablet 100 mg PO BID 07/12/22 [History Last Taken Unknown] lorazepam 1 mg tablet 1 mg PO 4X/DAY anxiety 07/12/22 [History Last Taken Unknown] lorazepam 1 mg tablet (Ativan) 1 mg PO Q6H 3 days #12 tabs 07/12/22 [Rx Last Taken Unknown] Allergy/AdvReac Type Severity Reaction Status Date / Time morphine Allergy PT UNSURE Verified 08/29/22 16:39 Penicillins Allergy Hives Verified 08/29/22 16:39 tramadol HCl [From Ultram] Allergy PT UNSURE Verified 08/29/22 16:39 bupropion [From Wellbutrin] AdvReac hallucinati Verified 08/29/22 16:39 ons Family History Father Heart disease of heart attack at age 64 Mother Cancer of cancer at age 72 CVA (cerebral vascular accident) Surgical History History of appendectomy History of coronary artery bypass graft x 3 (~2007) History of coronary artery stent placement (10/10/21) History of left heart catheterization (10/10/21) Hx of cholecystectomy Hx of thyroidectomy Presence of stent in coronary artery (~10/10/21) Social History household members: significant other housing: house Smoking Status: Current every day smoker tobacco type: cigarettes details: Patient denies alcohol use substance use type: does not use ROS <ROSA Barrientos - Last Filed: 08/29/22 19:52> ROS ED ROS Narrative Constitutional: Negative for fever, chills, weight loss, weakness Eyes: Negative for vision loss, vision change, double vision ENT: Negative for any sore throat, ear pain, congestion Cardiovascular: Negative for any chest pain, tightness, palpitations Respiratory: Negative for any cough, sputum production, hemoptysis, dyspnea, dyspnea on exertion, orthopnea Gastrointestinal: Negative for any abdominal pain, nausea, vomiting, diarrhea, constipation, blood in stool, blood in vomit : Negative for any urinary frequency, dysuria, retention, blood in urine Muscle skeletal: Negative for any muscle joint pain, stiffness, myalgias, arthralgias, neck pain, back pain. Positive for left leg pain Neurological: Negative for any headache, syncope, numbness or tingling, dizziness Skin: Negative for any rashes, lumps, itching, lacerations. Positive for abrasion to the left amato, slight redness around the wound Psychiatric: Negative for any depression, anxiety, stress, suicidal ideation, homicidal ideation Hematologic: Negative for any easy bruising, excessive bruising, easy bleeding Allergies: Negative for any eczema, hives, rash EXAM <ROSA Barrientos - Last Filed: 08/29/22 19:52> Physical Exam Narrative Exam Narrative: Vital signs reviewed. HEET: Head normocephalic atraumatic, TMs clear bilaterally. Posterior pharynx is clear, moist mucous membranes. Nares clear bilaterally. Neck: Supple with no lymphadenopathy or tenderness. No signs of meningismus, negative jolt sign. Cardiac: Regular rate and rhythm no murmurs gallops or rubs, equal peripheral pulses bilaterally. Respiratory: Lungs clear to auscultation bilaterally. No chest tenderness. Abdomen: Soft, nontender, nondistended. No abdominal bruit or pulsatile masses. No hepatosplenomegaly Extremities: Patient's bilateral legs show no edema. +2 pedal pulses. On the left leg on the anterior aspect midline on the amato, there is an abrasion with a scab. There is slight erythema around the area. Patient has no abscess formation. There is no signs or symptoms of deep tissue infection. Patient's calf is soft, no evidence of compartment syndrome. No concern for any DVT. Neuro: Cranial nerves II through XII intact, no focal neurological deficits. Skin: Clean dry and intact with no rash, purpura, petechiae, vesicles or pustules. Backs/flank: No CVA tenderness, no midline spinal tenderness, no deformity. Psych: Normal mood and affect. No SI, HI or acute psychosis. Const Vital Signs: 08/29/22 16:39 08/29/22 19:19 08/29/22 19:19 Temperature 98.7 F 98.2 F 98.2 F Temperature Source Temporal Oral Oral Pulse Rate 71 71 71 Respiratory Rate 4 L 18 18 Blood Pressure 124/58 H 126/55 H 126/55 H Blood Pressure Mean 80 78 78 Pulse Ox 98 98 98 Oxygen Delivery Method Room Air Room Air Room Air Positive well nourished and well developed General Appearance ED: well developed <Dr. Evelio Murphy MD - Last Filed: 08/29/22 20:34> Physical Exam Const Vital Signs: 08/29/22 16:39 08/29/22 19:19 08/29/22 19:19 Temperature 98.7 F 98.2 F 98.2 F Temperature Source Temporal Oral Oral Pulse Rate 71 71 71 Respiratory Rate 4 L 18 18 Blood Pressure 124/58 H 126/55 H 126/55 H Blood Pressure Mean 80 78 78 Pulse Ox 98 98 98 Oxygen Delivery Method Room Air Room Air Room Air MDM <ROSA Barrientos - Last Filed: 08/29/22 19:52> [facility] Treatment and Re-Evaluation :: Patient appears generally well, patient appears nontoxic, vital signs are stable. Patient presents to the emergency department with redness, wound to the left lower extremity. This is consistent with an abrasion, slight early cellulitis versus inflammatory changes. Secondary the patient's pain worse with walking, as well as the continued pain, patient will be treated for infection of cellulitis. There is no compartment syndrome, no evidence of any DVT symptoms. Patient will be treated for cellulitis, she was treated with Keflex 4 times a day for 7 days. She instructed to ice and elevate. Return for any worsening symptoms <Dr. Evelio Murphy MD - Last Filed: 08/29/22 20:34> MDM MDM Narrative Medical decision making narrative: I have personally performed a face to face assessment of the patient and have reviewed the LIT Note. I performed a substantive portion of the visit including all aspects of the following. My davila findings include: History is [81-year-old female has an abrasion to her leg was concerned it was infected. Our nurse practitioner discussed the care and evaluation the patient with me. I went and evaluated the patient and she was in the bathroom. So I never saw her. When I went back to see her a second time she left.] Exam is [attempted to evaluate the patient she was in the bathroom.] Medical Decision Making [started on Keflex for possible wound infection.] Other additions or changes: [None] Discharge Plan Triage Chief Complaint: Wound ED Midlevel Provider: Kingsley Navas ED Provider: Evelio Murphy Dx/Rx/DC Orders Clinical Impression: Cellulitis, Abrasion of left leg Instructions: Cellulitis Dc Prescriptions: No Action albuterol sulfate 0.63 mg/3 mL solution for nebulization 0.63 mg INHALATION Q4H PRN (Reason: Congestion) levothyroxine 75 MCG tablet 75 mcg PO DAILY citalopram 40 mg tablet 40 mg PO DAILY atenolol 50 MG tablet 50 mg PO DAILY atorvastatin 40 MG tablet 40 mg PO QHS bupropion HCl 100 MG tablet 100 mg PO DAILY pantoprazole 40 MG tablet 40 mg PO BID gabapentin 100 mg capsule 200 mg PO TID trazodone 100 mg tablet 100 mg PO QHS Patient Comments: TAKE 1 TABLET BY MOUTH EVERY DAY AT BEDTIME oxybutynin chloride 5 mg tablet extended release 24hr 5 mg PO DAILY Patient Comments: Take 1 tablet by mouth once daily. lisinopril 20 mg tablet 20 mg PO DAILY Patient Comments: Take 1 tablet by mouth once daily. amlodipine 10 mg Tablet 10 mg PO DAILY 30 Days Qty: 30 0RF doxycycline hyclate 100 mg tablet 100 mg PO BID clopidogrel 75 mg tablet 75 mg PO QODAY lorazepam 1 MG tablet 1 mg PO 4X/DAY Rx Instructions: takes at 0800, 1200, 1600, 2000 lorazepam [Ativan] 1 mg tablet 1 mg PO Q6H 3 Days Qty: 12 0RF Primary Care Provider: Zully Rojas Referrals: Zully Rojas MD [Primary Care Provider] - Activity Restrictions/Additional Instructions: Please take antibiotics until finished. Disposition Disposition: Home, Self Care
--- NOTE | 2022-08-29 20:24 | ED.RN ---
PT STATING SHE WAS LEAVING AND WAS NOT WAITING ANY LONGER. DR. PATEL NOTIFIED.
== END 2022-08-29 20:34 | disposition home or self-care (01) ==
PROVIDERS: Emergency Provider Emergency Medicine; PCP Internal Medicine; Visit Provider Emergency Medicine
DX: L03.116 Cellulitis of left lower limb (principal); S80.812A Abrasion, left lower leg, initial encounter; I25.10 Atherosclerotic heart disease of native coronary artery without angina pectoris; F17.210 Nicotine dependence, cigarettes, uncomplicated; M51.36 Other intervertebral disc degeneration, lumbar region; I25.2 Old myocardial infarction; X58.XXXA Exposure to other specified factors, initial encounter; Z86.73 Personal history of transient ischemic attack (TIA), and cerebral infarction without residual deficits
CPT/HCPCS: 99282

== ENCOUNTER 2022-11-27 16:47 | Emergency (ER) | payer MEDICARE, SELFPAY ==
[2017-12-28 13:50] VITALS: BMI 29.2
[2022-11-27 16:48] VITALS: BP 121/59; PULSE 74; RESP 16; TEMP 36.4; O2SAT 97; BMI 40.1
--- NOTE | 2022-11-27 17:08 | EKG12_ITS ---
Test Reason : WEAKNESS Blood Pressure : / mmHG Vent. Rate : 061 BPM Atrial Rate : 061 BPM P-R Int : 214 ms QRS Dur : 076 ms QT Int : 448 ms P-R-T Axes : 092 098 -37 degrees QTc Int : 450 ms Suspect arm lead reversal, interpretation assumes no reversal Sinus rhythm with 1st degree A-V block Rightward axis Non-specific ST & T wave abnormality, consider lateral ischemia Abnormal ECG Confirmed by MINE GOLD, GOPAL ([id number]), assistant production editor CAIO KUHN ([id number]) on 12/02/2022 12:53:23 PM Referred By: Confirmed By:BRAN BLOUNT MD
--- NOTE | 2022-11-27 17:08 | RAD_ITS ---
STUDY: X-RAY CHEST REASON FOR EXAM: Female, 77 years old. chest pain -- -- increased swelling to bilateral lower ex TECHNIQUE: AP portable COMPARISON: July 12, 2022 FINDINGS: Nonspecific eventration of left hemidiaphragm The lungs are clear and expanded. There is no demonstrated pleural abnormality. Postop change status post median sternotomy and CABG Normal size heart. Normal mediastinum and [place]. Normal visualized pulmonary arteries. Mildly calcified aortic arch and descending thoracic aorta. Dorsal spine demonstrates degenerative changes and mild scoliosis deformity. Normal visualized ribs, and clavicles.. Old healed fracture of the left shoulder and degenerative changes on the right There is no demonstrated abnormality of the visualized soft tissue structures of the upper abdomen. RAD/Chest 1 View (Portable) IMPRESSION: No acute cardiopulmonary pathology Electronically Signed: Hany Desai MD at 17:55 EDT ,
[2022-11-27] MEDS: Aspirin 81 MG TAB.CHEW 324 MG PO (17:19)
[2022-11-27 18:01] LABS: Absolute Lymphocyte Count 1.59 X10^3/uL (0.83-4.51); Absolute Neutrophil Count 3.3 X10^3/uL (2.0-7.7); Basophil# 0.04 X10^3/uL; Basophil% 0.7 % (0-1); Eosinophil# 0.23 X10^3/uL; Hematocrit 31.5 % (37-47); Hemoglobin 9.6 g/dL (12.0-15.0); Lymphocyte # 1.59 X10^3/ul (0.83-4.51); Lymphocyte % 27.8 % (19-41); Mean Corp Hgb Conc 30.5 g/dL (32-36); Mean Corpuscular Hgb 26.2 pg (27.0-32.0); Mean Corpuscular Volume 86.1 fL (81-99); Mean Platelet Vol. 9.3 fl (6.2-12.0); Monocyte# 0.51 X10^3/uL; Monocyte% 8.9 % (0-10); NRBC Flagged by Analyzer 0 % (0-5); Neutrophil # 3.31 X10^3/uL (2.7-7.7); Neutrophil % 58.1 % (47-70); Platelet Count 282 K/mm3 (150-450); RBC Distribution Width SD 50.5 fl (35.1-43.9); Red Blood Count 3.66 M/mm3 (4.2-5.4); White Blood Count 5.7 K/mm3 (4.4-11.0)
[2022-11-27 18:17] LABS: Anion Gap 2 (5-15); BUN 14 mg/dL (7-18); BUN/Creat Ratio 16.7 RATIO (10-20); Calcium,Total 8.5 mg/dL (8.5-10.1); Chloride 105 mmol/L (98-107); Creatinine, Serum 0.84 mg/dL (0.55-1.02); EST Glomerular Filtration Rate 70 mL/min (>60); Est Glom Filt Rate - Afr Amer 85 mL/min (>60); Estimated Creatinine Clearance 59.13 ml/min; Glucose 83 mg/dL (74-106); Sodium Level 139 mmol/L (136-145); Troponin-I HS (w/2H Reflex) 18 pg/mL (3.0-54.0)
[2022-11-27 18:23] LABS: BNP,B-Type NATRIURETIC PEPTIDE 158.3 pg/mL (0-100)
[2022-11-27 18:37] VITALS: O2SAT 97
[2022-11-27] MEDS: Furosemide 20 MG/2 ML VIAL IV (19:13)
[2022-11-27 19:25] VITALS: PULSE 66; RESP 20
[2022-11-27 19:43] LABS: Reflex Troponin-HS? (from REC) Y
--- NOTE | 2022-11-27 21:07 | ED.VIS.DYS ---
HPI History of Present Illness Chief Complaint: Edema Narrative Narrative: 77-year-old female with history of CABG, coronary artery disease, cardiac stent, CVA, COPD presenting with shortness of breath, orthopnea, dyspnea on exertion. Patient states has been progressive. She is not on any diuretics. Patient states she had some intermittent chest pains recently. She is not lightheaded or dizzy. PFSH PFSH Medical History Acute leg pain Anemia Anxiety and depression Atherosclerosis of coronary artery bypass graft without angina pectoris Atherosclerosis of coronary artery of [place] heart with angina pectoris Avascular necrosis of bone of left hip Avascular necrosis of femur head, left Back pain Benzodiazepine dependence CAD (coronary artery disease) Carotid artery stenosis Community acquired pneumonia COPD (chronic obstructive pulmonary disease) COPD (chronic obstructive pulmonary disease) CVA (cerebral vascular accident) DDD (degenerative disc disease), lumbar Declining functional status Depression with anxiety Diastolic dysfunction Elevated troponin Essential (primary) hypertension Guaiac positive stools H/O: pneumonia Hemorrhoids, external History of rectal cancer History of thyroid cancer Hyperlipidemia Hypothyroidism Nicotine dependence Non-rheumatic mitral regurgitation Non-rheumatic tricuspid valve insufficiency Non-ST elevation (NSTEMI) myocardial infarction Obstructive sleep apnea Osteoarthritis of left hip Rectal cancer Secondary pulmonary arterial hypertension TIA (transient ischemic attack) TIA (transient ischemic attack) Unable to bear weight on left lower extremity Home Medications levothyroxine 75 mcg tablet 75 mcg PO DAILY thyroid 09/06/17 [History Last Taken 04/19/22] citalopram 40 mg tablet 40 mg PO DAILY depression 12/18/17 [History Last Taken 04/19/22] atenolol 50 mg tablet 50 mg PO DAILY heart rate 01/05/18 [History Last Taken 04/19/22] atorvastatin 40 mg tablet 40 mg PO QHS cholesterol 01/05/18 [History Last Taken 04/18/22] albuterol sulfate 0.63 mg/3 mL solution for nebulization 0.63 mg inhalation Q4H PRN Congestion 07/14/18 [History Last Taken 1 Week Ago ~10/01/21] bupropion HCl 100 mg tablet 100 mg PO DAILY mood 01/16/19 [History Last Taken 04/19/22] pantoprazole 40 mg tablet,delayed release 40 mg PO BID gerd 01/16/19 [History Last Taken 04/19/22] gabapentin 100 mg capsule 200 mg PO TID pain 10/08/21 [History Last Taken 04/18/22] oxybutynin chloride 5 mg tablet,extended release 24 hr 5 mg PO DAILY bladder 10/08/21 [History Last Taken 04/19/22] trazodone 100 mg tablet 100 mg PO QHS sleep 10/08/21 [History Last Taken 04/18/22] lisinopril 20 mg tablet 20 mg PO DAILY BP 04/10/22 [History Last Taken 04/19/22] amlodipine 10 mg tablet 10 mg PO DAILY 30 days #30 tabs 04/23/22 [Rx Last Taken Unknown] clopidogrel 75 mg tablet 75 mg PO QODAY 07/12/22 [History Last Taken Unknown] doxycycline hyclate 100 mg tablet 100 mg PO BID 07/12/22 [History Last Taken Unknown] lorazepam 1 mg tablet 1 mg PO 4X/DAY anxiety 07/12/22 [History Last Taken Unknown] lorazepam 1 mg tablet (Ativan) 1 mg PO Q6H 3 days #12 tabs 07/12/22 [Rx Last Taken Unknown] cephalexin 500 mg capsule 500 mg PO Q6 7 days #28 CAPSULES 08/29/22 [Rx Last Taken Unknown] furosemide 20 mg tablet (Lasix) 20 mg PO DAILY #60 tabs 11/27/22 [Rx Last Taken Unknown] Allergy/AdvReac Type Severity Reaction Status Date / Time morphine Allergy PT UNSURE Verified 11/27/22 16:48 Penicillins Allergy Hives Verified 11/27/22 16:48 tramadol HCl [From Ultram] Allergy PT UNSURE Verified 11/27/22 16:48 bupropion [From Wellbutrin] AdvReac hallucinati Verified 11/27/22 16:48 ons Family History Father Heart disease of heart attack at age 64 Mother Cancer of cancer at age 72 CVA (cerebral vascular accident) Surgical History History of appendectomy History of coronary artery bypass graft x 3 (~2007) History of coronary artery stent placement (10/10/21) History of left heart catheterization (10/10/21) Hx of cholecystectomy Hx of thyroidectomy Presence of stent in coronary artery (~10/10/21) Social History household members: significant other housing: house Smoking Status: Current every day smoker tobacco type: cigarettes details: Patient denies alcohol use substance use type: does not use ROS ROS ED Constitutional Constitutional ED: Denies chills, fever(s) or sweats Eyes Eyes: Denies blurry vision or change in vision ENT ENT ED: Denies ear pain or sore throat Cardiovascular Cardiovascular: Reports chest pain and orthopnea; Denies palpitations or racing heartbeat Respiratory/Chest Respiratory/Chest: Reports dyspnea, dyspnea on exertion and orthopnea; Denies cough or sputum Gastrointestinal Gastrointestinal: Denies abdominal pain, constipation, diarrhea, nausea or vomiting Genitourinary Genitourinary ED: Denies dysuria, hematuria or urinary frequency Musculoskeletal Musculoskeletal: Denies arthralgias, myalgias or neck pain Integumentary Denies abscess, Abrasions or rash Neurologic Neurologic: Denies headache(s), paresthesias or weakness Psychiatric Psychiatric: Denies anxiety, depression, suicidal ideation or suicidal thoughts Endocrine Endocrinology: Denies polydipsia or polyuria EXAM Physical Exam Const Vital Signs: 11/27/22 16:48 11/27/22 16:47 11/27/22 17:35 Temperature 97.5 F L Temperature Source Temporal Pulse Rate 74 Respiratory Rate 16 Respiratory Effort Normal Respiratory Pattern Normal Blood Pressure 121/59 H Blood Pressure Mean 79 Pulse Ox 97 Oxygen Delivery Method Room Air Room Air 11/27/22 19:25 Temperature Temperature Source Pulse Rate 66 Respiratory Rate 20 H Respiratory Effort Respiratory Pattern Blood Pressure Blood Pressure Mean Pulse Ox Oxygen Delivery Method Room Air Positive well nourished HEENT Reports moist mucous membranes Eyes General Eye ED: Yes pale conjunctiva Neck no lymphadenopathy and supple Resp normal respiratory effort and clear to auscultation bilaterally Auscultation: Negative for rales, rhonchi or wheezes Cardio regular rate and regular rhythm Neuro oriented x3 and CN's II-XII intact bilaterally Sensorium / Orientation: alert Psych mental status grossly normal Skin no wounds Skin Narrative: 2+ pitting edema lower extremities bilateral. MDM MDM MDM Narrative Medical decision making narrative: 27-year-old female presenting with mild chest pains recently. She is also short of breath, having orthopnea, dyspnea on exertion. Physical exam consistent with CHF given she has bibasilar crackles although she is not hypoxic. CBC was obtained to assess white blood cell count, hemoglobin, platelets. BMP to assess renal function, electrolytes. High-sensitivity troponin EKG to assess for ischemia/dysrhythmia. BNP to assess for CHF. It was obtained to differentiate pneumonia versus CHF KG shows a sinus rhythm at 61 bpm without sign of ischemic change or ectopy on my interpretation. Chest x-ray my interpretation shows no acute process the radiologist interprets this and agrees. CBC shows a normal white blood cell count of 5.7. Hemoglobin 9.6 and near baseline. Platelets 282. Creatinine normal at 0.84. High-sensitivity troponin is 18. BNP slightly elevated 158.3. Clinically I suspect she has not had heart failure no tach she has a history of this. Discussed with Dr. Wilcox and we went over her previous echocardiogram from April. He recommended putting her on Lasix and she is not on any. Show 20 p.o. daily. Return precautions were discussed. Impression: 1. CHF exacerbation 2. Dyspnea 3. Orthopnea Lab Data Attestation: I reviewed the patient's lab results. Labs: Laboratory Results - last 24 hr 11/27/22 17:32 WBC 5.7 RBC 3.66 L Hgb 9.6 L Hct 31.5 L MCV 86.1 MCH 26.2 L MCHC 30.5 L RDW Std Deviation 50.5 H RDW Coeff of John 16.0 H Plt Count 282 MPV 9.3 Immature Gran % (Auto) 0.500 Neut % (Auto) 58.1 Lymph % (Auto) 27.8 [place] % (Auto) 8.9 Eos % (Auto) 4.0 Baso % (Auto) 0.7 Absolute Neuts (auto) 3.3 Absolute Lymphs (auto) 1.59 Nucleated RBC % 0 Sodium 139 Potassium 4.0 Chloride 105 Carbon Dioxide 32.0 Anion Gap 2 L BUN 14 Creatinine 0.84 Estim Creat Clear Calc 59.13 Est GFR (MDRD) Af Amer 85 Est GFR (MDRD) Non-Af 70 BUN/Creatinine Ratio 16.7 Glucose 83 Calcium 8.5 Troponin I High Sens 18 B-Natriuretic Peptide 158.3 H Radiography Diagnostic Testing: Clinical Impression(s) from Imaging Studies Chest X-Ray 11/27/22 17:08 IMPRESSION: No acute cardiopulmonary pathology Electronically Signed: Hany Desai MD at 17:55 EDT , Discharge Plan Triage Chief Complaint: Edema ED Provider: Ryley Arora Dx/Rx/DC Orders Clinical Impression: CHF (congestive heart failure) Instructions: ED Heart Failure, Congestive (CHF) Prescriptions: New furosemide [Lasix] 20 mg tablet 20 mg PO DAILY Qty: 60 0RF No Action albuterol sulfate 0.63 mg/3 mL solution for nebulization 0.63 mg INHALATION Q4H PRN (Reason: Congestion) levothyroxine 75 MCG tablet 75 mcg PO DAILY citalopram 40 mg tablet 40 mg PO DAILY atenolol 50 MG tablet 50 mg PO DAILY atorvastatin 40 MG tablet 40 mg PO QHS bupropion HCl 100 MG tablet 100 mg PO DAILY pantoprazole 40 MG tablet 40 mg PO BID gabapentin 100 mg capsule 200 mg PO TID trazodone 100 mg tablet 100 mg PO QHS Patient Comments: TAKE 1 TABLET BY MOUTH EVERY DAY AT BEDTIME oxybutynin chloride 5 mg tablet extended release 24hr 5 mg PO DAILY Patient Comments: Take 1 tablet by mouth once daily. lisinopril 20 mg tablet 20 mg PO DAILY Patient Comments: Take 1 tablet by mouth once daily. amlodipine 10 mg Tablet 10 mg PO DAILY 30 Days Qty: 30 0RF doxycycline hyclate 100 mg tablet 100 mg PO BID clopidogrel 75 mg tablet 75 mg PO QODAY lorazepam 1 MG tablet 1 mg PO 4X/DAY Rx Instructions: takes at 0800, 1200, 1600, 2000 lorazepam [Ativan] 1 mg tablet 1 mg PO Q6H 3 Days Qty: 12 0RF cephalexin 500 mg capsule 500 mg PO Q6 7 Days Qty: 28 0RF Primary Care Provider: Zully Rojas Referrals: Zully Rojas MD [Primary Care Provider] - Darryn Wilcox MD [Med Staff - Active Staff] - 3-5 Days Disposition Disposition: Home, Self Care Discharge Date/Time: 11/27/22 19:50
== END 2022-11-27 19:50 | disposition home or self-care (01) ==
PROVIDERS: Emergency Provider Student in an Organized Health Care Education/Training Program; PCP Internal Medicine; Visit Provider Student in an Organized Health Care Education/Training Program
DX: I50.32 Chronic diastolic (congestive) heart failure (principal); R06.01 Orthopnea; I25.10 Atherosclerotic heart disease of native coronary artery without angina pectoris; F17.210 Nicotine dependence, cigarettes, uncomplicated; I25.2 Old myocardial infarction; Z95.1 Presence of aortocoronary bypass graft; Z95.5 Presence of coronary angioplasty implant and graft; Z86.73 Personal history of transient ischemic attack (TIA), and cerebral infarction without residual deficits
CPT/HCPCS: 71045; 80048; 83880; 84484; 85025; 93005; 96374; 99284; J7030; A4216; J1940

== ENCOUNTER → 2022-12-23 | Outpatient (CLI) | payer MEDICARE, SELFPAY ==
[2017-12-28 13:50] VITALS: BMI 29.2
[2022-12-23 12:41] LABS: Absolute Lymphocyte Count 1.62 X10^3/uL (0.83-4.51); Basophil# 0.04 X10^3/uL; Basophil% 0.5 % (0-1); Eosinophil# 0.46 X10^3/uL; Hematocrit 33.9 % (37-47); Lymphocyte # 1.62 X10^3/ul (0.83-4.51); Lymphocyte % 21.2 % (19-41); Mean Corp Hgb Conc 29.5 g/dL (32-36); Mean Corpuscular Hgb 25.3 pg (27.0-32.0); Mean Corpuscular Volume 85.8 fL (81-99); Mean Platelet Vol. 9.7 fl (6.2-12.0); Monocyte# 0.46 X10^3/uL; NRBC Flagged by Analyzer 0 % (0-5); Neutrophil # 5.03 X10^3/uL (2.7-7.7); Neutrophil % 65.9 % (47-70); Platelet Count 337 K/mm3 (150-450); RBC Distribution Width CV 16.3 % (11.6-14.6); Red Blood Count 3.95 M/mm3 (4.2-5.4); White Blood Count 7.6 K/mm3 (4.4-11.0)
[2022-12-23 13:01] LABS: Anion Gap 5 (5-15); BUN 14 mg/dL (7-18); BUN/Creat Ratio 17.7 RATIO (10-20); Calcium,Total 8.4 mg/dL (8.5-10.1); Chloride 107 mmol/L (98-107); Creatinine, Serum 0.79 mg/dL (0.55-1.02); EST Glomerular Filtration Rate 75 mL/min (>60); Est Glom Filt Rate - Afr Amer 91 mL/min (>60); Glucose 95 mg/dL (74-106); Potassium 4.1 mmol/L (3.5-5.1); Sodium Level 141 mmol/L (136-145)
[2022-12-23 15:01] LABS: BNP,B-Type NATRIURETIC PEPTIDE 127.2 pg/mL (0-100)
== END | disposition home or self-care (01) ==
LOC: LAB 11:12
PROVIDERS: PCP Internal Medicine; Referring Provider Nurse Practitioner Gerontology; Visit Provider Nurse Practitioner Gerontology
DX: R06.09 Other forms of dyspnea (principal)
CPT/HCPCS: 36415; 80048; 83880; 85025

== ENCOUNTER 2023-01-04 12:40 | Emergency (ER) | payer MEDICARE, SELFPAY ==
[2017-12-28 13:50] VITALS: BMI 29.2
[2023-01-04 12:40] VITALS: BP 112/47; PULSE 71; RESP 16; TEMP 36.2; O2SAT 99; BMI 27.4
--- NOTE | 2023-01-04 14:53 | ED.VIS.LOWEX ---
HPI History of Present Illness Chief Complaint: Lower Extremity Injury Narrative Narrative: 77-year-old female presents with injury to her right hip and buttocks that she sustained yesterday after fall. She denies any prodromal symptoms to her fall, no chest pain or shortness of breath. While she may have hit her head, she denies loss of consciousness or neck pain. She states she is having pain all about her right buttocks. No fevers or chills, no saddle anesthesia, no loss of bowel or bladder. She took Tylenol without relief of her pain. States she had her daughter dropped her off because of pain that is worse with movement. She usually ambulates with a cane because she states her balance is off. [facility] Medical History Acute leg pain Anemia Anxiety and depression Atherosclerosis of coronary artery bypass graft without angina pectoris Atherosclerosis of coronary artery of [place] heart with angina pectoris Avascular necrosis of bone of left hip Avascular necrosis of femur head, left Back pain Benzodiazepine dependence CAD (coronary artery disease) Carotid artery stenosis Community acquired pneumonia COPD (chronic obstructive pulmonary disease) COPD (chronic obstructive pulmonary disease) CVA (cerebral vascular accident) DDD (degenerative disc disease), lumbar Declining functional status Depression with anxiety Diastolic dysfunction Elevated troponin Essential (primary) hypertension Guaiac positive stools H/O: pneumonia Hemorrhoids, external History of rectal cancer History of thyroid cancer Hyperlipidemia Hypothyroidism Nicotine dependence Non-rheumatic mitral regurgitation Non-rheumatic tricuspid valve insufficiency Non-ST elevation (NSTEMI) myocardial infarction Obstructive sleep apnea Osteoarthritis of left hip Rectal cancer Secondary pulmonary arterial hypertension TIA (transient ischemic attack) TIA (transient ischemic attack) Unable to bear weight on left lower extremity Home Medications levothyroxine 75 mcg tablet 75 mcg PO DAILY thyroid 09/06/17 [History Last Taken 04/19/22] citalopram 40 mg tablet 40 mg PO DAILY depression 12/18/17 [History Last Taken 04/19/22] atenolol 50 mg tablet 50 mg PO DAILY heart rate 01/05/18 [History Last Taken 04/19/22] atorvastatin 40 mg tablet 40 mg PO QHS cholesterol 01/05/18 [History Last Taken 04/18/22] albuterol sulfate 0.63 mg/3 mL solution for nebulization 0.63 mg inhalation Q4H PRN Congestion 07/14/18 [History Last Taken 1 Week Ago ~10/01/21] bupropion HCl 100 mg tablet 100 mg PO DAILY mood 01/16/19 [History Last Taken 04/19/22] pantoprazole 40 mg tablet,delayed release 40 mg PO BID gerd 01/16/19 [History Last Taken 04/19/22] gabapentin 100 mg capsule 200 mg PO TID pain 10/08/21 [History Last Taken 04/18/22] oxybutynin chloride 5 mg tablet,extended release 24 hr 5 mg PO DAILY bladder 10/08/21 [History Last Taken 04/19/22] trazodone 100 mg tablet 100 mg PO QHS sleep 10/08/21 [History Last Taken 04/18/22] lisinopril 20 mg tablet 20 mg PO DAILY BP 04/10/22 [History Last Taken 04/19/22] amlodipine 10 mg tablet 10 mg PO DAILY 30 days #30 tabs 04/23/22 [Rx Last Taken Unknown] clopidogrel 75 mg tablet 75 mg PO QODAY 07/12/22 [History Last Taken Unknown] lorazepam 1 mg tablet 1 mg PO 4X/DAY anxiety 07/12/22 [History Last Taken Unknown] lorazepam 1 mg tablet (Ativan) 1 mg PO Q6H 3 days #12 tabs 07/12/22 [Rx Last Taken Unknown] furosemide 20 mg tablet (Lasix) 40 mg (2 x 20 mg) PO DAILY #60 tabs 12/23/22 [Rx Last Taken Unknown] Allergy/AdvReac Type Severity Reaction Status Date / Time morphine Allergy PT UNSURE Verified 01/04/23 12:42 Penicillins Allergy Hives Verified 01/04/23 12:42 tramadol HCl [From Ultram] Allergy PT UNSURE Verified 01/04/23 12:42 bupropion [From Wellbutrin] AdvReac hallucinati Verified 01/04/23 12:42 ons Family History Father Heart disease of heart attack at age 64 Mother Cancer of cancer at age 72 CVA (cerebral vascular accident) Surgical History History of appendectomy History of coronary artery bypass graft x 3 (~2007) History of coronary artery stent placement (10/10/21) History of left heart catheterization (10/10/21) Hx of cholecystectomy Hx of thyroidectomy Presence of stent in coronary artery (~10/10/21) Social History household members: significant other housing: house Smoking Status: Current every day smoker tobacco type: cigarettes details: Patient denies alcohol use substance use type: does not use ROS ROS ED ROS Narrative Constitutional: No fever, no chills. HEENT: No sore throat. No neck pain. No loss of vision. No rhinorrhea. Cardiovascular: No chest pain. No palpitations. No pedal edema. Respiratory: No cough, no shortness of breath. Abdominal: No abdominal pain. No nausea. No vomiting. Genitourinary: No dysuria. No hematuria. Musculoskeletal: No myalgias. Right buttocks and right hip pain. Neurologic: No saddle anesthesia. No radiation down the leg. No headaches. No dizziness. No lightheadedness. Skin: No rash. No change in color. Psychiatric: No depression. No anxiety. EXAM Physical Exam Narrative Exam Narrative: Afebrile. Vital signs noted. HEENT: Normocephalic. Atraumatic. PERRL, EOMI. Neck soft and supple. No point tenderness or step off. Cardiovascular: Regular rate and rhythm. No murmurs, rubs, or gallops appreciated. Respiratory: No tachypnea. Lungs clear to auscultation bilaterally. Gastrointestinal: Abdomen soft, nontender, with normoactive bowel sounds. No rebound or guarding. Neurological: Awake. Alert. Nonfocal, nonlateralizing. Skin: No rash. Normal color. No pallor. Musculoskeletal: No pedal edema. Full range of motion extremities. Flexion extension of right hip and knee intact. No pain with logrolling of femur. No noticed external rotation or shortening. Palpable dorsalis pedis pulse, right. Mild tenderness to palpation right sciatic notch. Const Vital Signs: 01/04/23 12:40 Temperature 97.2 F L Temperature Source Temporal Pulse Rate 71 Respiratory Rate 16 Blood Pressure 112/47 L Blood Pressure Mean 68 Pulse Ox 99 Oxygen Delivery Method Room Air MDM MDM MDM Narrative Medical decision making narrative: In the differential diagnosis is hip contusion versus fracture versus sciatica versus sacroiliitis. She may also have a pelvic fracture. I do not feel laboratory work is indicated. I reviewed the patient's prior ED visits, and she has had previous somatic complaints. She has an allergy to morphine that she is unsure of. She also has an allergy to tramadol which she is also unsure of. X-rays will be obtained of the right hip and pelvis to rule out fracture. X-rays of the right hip and pelvis and 3 views obtained and interpreted by myself independently shows no evidence of an acute fracture or dislocation. In review of the radiology report, there is demineralization of the osseous structures with age consistent hip and SI joint arthrosis. There is no evidence of a fracture, but CT is suggested to help rule out fracture. She was given an intramuscular injection of fentanyl to help with her pain. CT was obtained and there is no evidence of fracture in review of the radiology report. At this point in time, she is feeling improved and eating a sandwich. I feel she be discharged safely home to follow-up with her primary care provider. She took her own Ativan and gabapentin and will continue to do so. Disposition is discharged home in stable condition.. History & Record Review Discussion w/independent historian: Patient Additional record(s) reviewed:: Prior ED visit Radiography Diagnostic Testing: Clinical Impression(s) from Imaging Studies Hip/Pelvis X-Ray 01/04/23 15:08 IMPRESSION: Demineralization of the osseous structures with age consistent hip and SI joint arthrosis. No demonstrated fracture. However, hip and pelvic fractures in patients of this age can be subtle, if there is strong clinical suspicion of a fracture, recommend further evaluation with CT Electronically Signed: Ced Sandoval MD at 15:19 EST , Lower Extremity CT 01/04/23 15:27 IMPRESSION: No acute findings in the right lower extremity. Electronically Signed: Ethan Everett MD at 16:04 EST , Discharge Plan Triage Chief Complaint: Lower Extremity Injury ED Provider: Julian Cordova Dx/Rx/DC Orders Clinical Impression: Acute right hip pain, Sciatica Instructions: ED Hip Strain, ED Sciatica Prescriptions: No Action albuterol sulfate 0.63 mg/3 mL solution for nebulization 0.63 mg INHALATION Q4H PRN (Reason: Congestion) furosemide [Lasix] 20 mg tablet 40 mg PO DAILY Qty: 60 11RF levothyroxine 75 MCG tablet 75 mcg PO DAILY citalopram 40 mg tablet 40 mg PO DAILY atenolol 50 MG tablet 50 mg PO DAILY atorvastatin 40 MG tablet 40 mg PO QHS bupropion HCl 100 MG tablet 100 mg PO DAILY pantoprazole 40 MG tablet 40 mg PO BID gabapentin 100 mg capsule 200 mg PO TID trazodone 100 mg tablet 100 mg PO QHS Patient Comments: TAKE 1 TABLET BY MOUTH EVERY DAY AT BEDTIME oxybutynin chloride 5 mg tablet extended release 24hr 5 mg PO DAILY Patient Comments: Take 1 tablet by mouth once daily. lisinopril 20 mg tablet 20 mg PO DAILY Patient Comments: Take 1 tablet by mouth once daily. amlodipine 10 mg Tablet 10 mg PO DAILY 30 Days Qty: 30 0RF clopidogrel 75 mg tablet 75 mg PO QODAY lorazepam 1 MG tablet 1 mg PO 4X/DAY Rx Instructions: takes at 0800, 1200, 1600, 2000 lorazepam [Ativan] 1 mg tablet 1 mg PO Q6H 3 Days Qty: 12 0RF Primary Care Provider: Zully Rojas Referrals: Zully Rojas MD [Primary Care Provider] - 1 Week if not improving Activity Restrictions/Additional Instructions: Continue your Tylenol and gabapentin as needed for pain. Disposition Disposition: Home, Self Care
--- NOTE | 2023-01-04 15:08 | RAD_ITS ---
STUDY: X-RAY - PELVIS AND RIGHT HIP REASON FOR EXAM: Female, 77 years old. Fall, Pain TECHNIQUE: 3 views of the pelvis and hip. COMPARISON: None. FINDINGS: There is a non-specific bowel gas pattern. Normal visualized soft tissue structures. There is diffuse demineralization of the osseous structures. There is narrowing with cortical sclerosis and osteophyte formation of the sacroiliac joint consistent with degenerative osteoarthritic changes. Normal bilateral superior and inferior pubic rami. Normal pubic symphysis. Normal bilateral ischial tuberosities. Normal visualized femoral head. Normal acetabulum. There is moderate articular joint space narrowing of the hip. Similar degenerative changes noted in the left hip RAD/HIP, UNI W/ Pelvis 2-3 Views IMPRESSION: Demineralization of the osseous structures with age consistent hip and SI joint arthrosis. No demonstrated fracture. However, hip and pelvic fractures in patients of this age can be subtle, if there is strong clinical suspicion of a fracture, recommend further evaluation with CT Electronically Signed: Ced Sandoval MD at 15:19 EST ,
--- NOTE | 2023-01-04 15:27 | CT_ITS ---
EXAM: CT RIGHT LOWER EXTREMITY WITHOUT INTRAVENOUS CONTRAST CLINICAL INDICATION: pain TECHNIQUE: Helically acquired images were obtained of the right lower extremity without intravenous contrast. 2-D reformats were performed by the technologist. This CT exam was performed using one or more of the following dose reduction techniques: automated exposure control, adjustment of the mA and/or kV according to patient size, and/or use of iterative reconstruction technique. RADIATION DOSE: CTDIvol = 15.42 mGy, DLP = 469.77 mGy-cm COMPARISON: No relevant prior studies available. FINDINGS: BONES/JOINTS: Unremarkable. No acute fracture. No subluxation. Normal alignment. Preservation of the joint space. No sclerotic or destructive changes. SOFT TISSUES: Unremarkable. No soft tissue swelling or gas. No radiopaque foreign body. VASCULATURE: There are vascular calcifications. REPRODUCTIVE: atrophic uterus. CT/Extremity Lower without Contra IMPRESSION: No acute findings in the right lower extremity. Electronically Signed: Ethan Everett MD at 16:04 EST ,
[2023-01-04] MEDS: fentaNYL 100 MCG/2 ML Ampul 25 MCG IM (15:34)
--- NOTE | 2023-01-04 16:15 | ED.RN ---
per natalio Sumneray to administer home gabapentin and ativan.
[2023-01-04 17:37] VITALS: BP 110/55; PULSE 71; RESP 16; RESP 18; O2SAT 99
== END 2023-01-04 17:39 | disposition home or self-care (01) ==
PROVIDERS: Emergency Provider Emergency Medicine; PCP Internal Medicine; Visit Provider Emergency Medicine
DX: M25.551 Pain in right hip (principal); J44.9 Chronic obstructive pulmonary disease, unspecified; M54.30 Sciatica, unspecified side; I25.10 Atherosclerotic heart disease of native coronary artery without angina pectoris; F17.210 Nicotine dependence, cigarettes, uncomplicated; G47.33 Obstructive sleep apnea (adult) (pediatric); I25.2 Old myocardial infarction; Z86.73 Personal history of transient ischemic attack (TIA), and cerebral infarction without residual deficits; Z95.1 Presence of aortocoronary bypass graft; Z95.5 Presence of coronary angioplasty implant and graft
CPT/HCPCS: 73502; 73700; 96372; 99282

== ENCOUNTER 2023-01-24 21:58 | Inpatient (IN) | payer MEDICARE, SELFPAY ==
[2017-12-28 13:50] VITALS: BMI 29.2
[2023-01-24 22:00] VITALS: BP 128/51; PULSE 88; RESP 22; TEMP 36.9; O2SAT 90; BMI 29.0
[2023-01-24 22:10] VITALS: O2SAT 88
--- NOTE | 2023-01-24 22:20 | EDS_ITS ---
HPI History of Present Illness Chief Complaint: Weakness Informant: patient, family and EMS Narrative Narrative: 77-year-old female presenting to the emergency room with weakness. Patient reportedly lives at home with her daughter. She states that early this morning she fell. She states her legs just gave out. Since then she states she has been sitting in a chair. She was incontinent of stool and urine on EMS arrival. Patient states that she chronically has shortness of breath and is a smoker. She has COPD coronary artery disease (status post CABG/stent). Patient notes a chronic cough does not feel it is worse. She notes chronic low back pain that is worsening since the fall this morning. She states it makes her legs hurt particularly the left. She notes that the diarrhea is new. She denies any fever. She states she has had Jell-O and pudding today. She states I lost my appetite when my legs became weak. She states this been going on for some time. Then she also states that the legs just became weak today. It is difficult to get a clear concise history as she contradicted herself on the timelines. She states she was incontinent because of an inability to get to the bathroom. [facility] Medical History Acute leg pain Anemia Anxiety and depression Atherosclerosis of coronary artery bypass graft without angina pectoris Atherosclerosis of coronary artery of [place] heart with angina pectoris Avascular necrosis of bone of left hip Avascular necrosis of femur head, left Back pain Benzodiazepine dependence CAD (coronary artery disease) Carotid artery stenosis Community acquired pneumonia COPD (chronic obstructive pulmonary disease) COPD (chronic obstructive pulmonary disease) CVA (cerebral vascular accident) DDD (degenerative disc disease), lumbar Declining functional status Depression with anxiety Diastolic dysfunction Elevated troponin Essential (primary) hypertension Guaiac positive stools H/O: pneumonia Hemorrhoids, external History of rectal cancer History of thyroid cancer Hyperlipidemia Hypothyroidism Nicotine dependence Non-rheumatic mitral regurgitation Non-rheumatic tricuspid valve insufficiency Non-ST elevation (NSTEMI) myocardial infarction Obstructive sleep apnea Osteoarthritis of left hip Rectal cancer Secondary pulmonary arterial hypertension TIA (transient ischemic attack) TIA (transient ischemic attack) Unable to bear weight on left lower extremity Home Medications levothyroxine 75 mcg tablet 75 mcg PO DAILY thyroid 09/06/17 [History Last Taken 04/19/22] citalopram 40 mg tablet 40 mg PO DAILY depression 12/18/17 [History Last Taken 04/19/22] atenolol 50 mg tablet 50 mg PO DAILY heart rate 01/05/18 [History Last Taken 04/19/22] atorvastatin 40 mg tablet 40 mg PO QHS cholesterol 01/05/18 [History Last Taken 04/18/22] albuterol sulfate 0.63 mg/3 mL solution for nebulization 0.63 mg inhalation Q4H PRN Congestion 07/14/18 [History Last Taken 1 Week Ago ~10/01/21] bupropion HCl 100 mg tablet 100 mg PO DAILY mood 01/16/19 [History Last Taken 04/19/22] pantoprazole 40 mg tablet,delayed release 40 mg PO BID gerd 01/16/19 [History Last Taken 04/19/22] gabapentin 100 mg capsule 200 mg PO TID pain 10/08/21 [History Last Taken 04/18/22] oxybutynin chloride 5 mg tablet,extended release 24 hr 5 mg PO DAILY bladder 10/08/21 [History Last Taken 04/19/22] trazodone 100 mg tablet 100 mg PO QHS sleep 10/08/21 [History Last Taken 04/18/22] lisinopril 20 mg tablet 20 mg PO DAILY BP 04/10/22 [History Last Taken 04/19/22] amlodipine 10 mg tablet 10 mg PO DAILY 30 days #30 tabs 04/23/22 [Rx Last Taken Unknown] clopidogrel 75 mg tablet 75 mg PO QODAY 07/12/22 [History Last Taken Unknown] lorazepam 1 mg tablet 1 mg PO 4X/DAY anxiety 07/12/22 [History Last Taken Unknown] lorazepam 1 mg tablet (Ativan) 1 mg PO Q6H 3 days #12 tabs 07/12/22 [Rx Last Taken Unknown] furosemide 20 mg tablet (Lasix) 40 mg (2 x 20 mg) PO DAILY #60 tabs 12/23/22 [Rx Last Taken Unknown] Allergy/AdvReac Type Severity Reaction Status Date / Time morphine Allergy PT UNSURE Verified 01/24/23 22:00 Penicillins Allergy Hives Verified 01/24/23 22:00 tramadol HCl [From Ultram] Allergy PT UNSURE Verified 01/24/23 22:00 bupropion [From Wellbutrin] AdvReac hallucinati Verified 01/24/23 22:00 ons Family History Father Heart disease of heart attack at age 64 Mother Cancer of cancer at age 72 CVA (cerebral vascular accident) Surgical History History of appendectomy History of coronary artery bypass graft x 3 (~2007) History of coronary artery stent placement (10/10/21) History of left heart catheterization (10/10/21) Hx of cholecystectomy Hx of thyroidectomy Presence of stent in coronary artery (~10/10/21) Social History household members: significant other housing: house Smoking Status: Current every day smoker tobacco type: cigarettes details: Patient denies alcohol use substance use type: does not use ROS ROS ED Constitutional Constitutional ED: Denies chills, fever(s) or weight loss Eyes Eyes: Denies change in vision or diplopia ENT ENT ED: Denies ear pain, rhinorrhea or sore throat Cardiovascular Cardiovascular: Denies chest pain, orthopnea, palpitations or racing heartbeat Respiratory/Chest Respiratory/Chest: Reports cough, dyspnea and dyspnea on exertion; Denies orthopnea Gastrointestinal Gastrointestinal: Reports diarrhea; Denies abdominal pain, nausea or vomiting Genitourinary Genitourinary ED: Denies dysuria, hematuria or urinary frequency Musculoskeletal Musculoskeletal: Reports back pain; Denies arthralgias, myalgias or neck pain Integumentary Reports rash; Denies abscess Neurologic Neurologic: Reports other Details: Bilateral general leg weakness ; Denies headache(s), paresthesias or weakness Psychiatric Psychiatric: Denies anxiety, depression, suicidal ideation or suicidal thoughts Endocrine Endocrinology: Denies polydipsia, polyphagia or polyuria Allergic/Immunologic Allergic/Immunologic ED: Denies mouth swelling, tongue swelling or urticaria EXAM Physical Exam Const Vital Signs: 01/24/23 22:00 01/24/23 22:21 01/24/23 22:39 Temperature 98.4 F Temperature Source Temporal Pulse Rate 88 Respiratory Rate 22 H Respiratory Pattern Normal Blood Pressure 128/51 H Blood Pressure Mean 76 Pulse Ox 90 95 Oxygen Delivery Method Room Air Nasal Cannula Oxygen Flow Rate (L/min) 2 01/24/23 22:10 01/25/23 00:20 Temperature Temperature Source Pulse Rate 77 Respiratory Rate 16 Respiratory Pattern Blood Pressure 99/53 L Blood Pressure Mean 68 Pulse Ox 88 96 Oxygen Delivery Method Room Air Nasal Cannula Oxygen Flow Rate (L/min) 2 Positive well nourished and well developed General Appearance ED: well developed HEENT Reports normocephalic, head/scalp atraumatic and moist mucous membranes Eyes PERRL and EOMs intact bilaterally Neck no lymphadenopathy, supple and no JVD Resp normal respiratory effort and clear to auscultation bilaterally Cardio regular rate, regular rhythm and no murmurs GI normal to inspection, nondistended, normoactive bowel sounds and non-tender Palpation: soft Back/Spine no CVA tenderness Back/Spine Narrative: Diffuse tenderness over the lower lumbar paraspinal region. Erythema of the buttock most likely from stool exposure. No decubitus seen. Extremity Extremity Narrative: Patient is able to move the bilateral legs. Normal sensation. She is able to lift the legs up off the bed. General Extremety ED: Negative for edema General Extremity: Negative for edema Neuro oriented x3, CN's II-XII intact bilaterally and No no sensory deficits noted Sensorium / Orientation: alert Sensory Exam: No sensory level loss detected Motor Exam: general weakness Psych mental status grossly normal Mood & Affect: Negative for depressed or tearful Skin no wounds MDM MDM MDM Narrative Medical decision making narrative: Patient's oxygenation is 88 to 89% on room air. Her lung sounds do not show acute wheezing. She does not have labored breathing. I suspect that with her COPD she is chronically hypoxic. She was given supplemental oxygen to keep her above 90%. My independent trepidation of the chest x-ray is no acute process. CT the brain showed no acute findings. CT of the lumbar spine demonstrates a chronic compression fracture no acute finding. White count is elevated at 16. In light that she is not febrile and I do not see an infectious process not sure what to make out of that. Her urine specimen is normal. No bandemia. INR 1.2. BMP with creatinine 1.02 troponin normal. Lipase 13. Patient received a [place] for pain. Patient clearly cannot care for herself at home. Family told EMS they are unable to care for her. I will speak with the hospitalist regarding admission History & Record Review Discussion w/independent historian: EMS personnel and Patient Additional record(s) reviewed:: Prior ED visit and Prior labs Lab Data Attestation: I reviewed the patient's lab results. Labs: Laboratory Results - last 24 hr 01/24/23 01/24/23 00:11 22:50 WBC 16.0 H RBC 3.56 L Hgb 9.1 L Hct 30.5 L MCV 85.7 MCH 25.6 L MCHC 29.8 L RDW Std Deviation 53.4 H RDW Coeff of John 17.0 H Plt Count 366 MPV 9.2 Immature Gran % (Auto) 2.100 H Neut % (Auto) 80.6 H Lymph % (Auto) 9.5 L Nance % (Auto) 7.0 Eos % (Auto) 0.6 Baso % (Auto) 0.2 Absolute Neuts (auto) 12.9 H Absolute Lymphs (auto) 1.52 Nucleated RBC % 0.1 PT 15.1 H INR 1.2 APTT 30.7 Sodium 136 Potassium 3.4 L Chloride 100 Carbon Dioxide 32.0 Anion Gap 4 L BUN 16 Creatinine 1.02 Estim Creat Clear Calc 34.23 Est GFR (MDRD) Af Amer 68 Est GFR (MDRD) Non-Af 56 L BUN/Creatinine Ratio 15.7 Glucose 132 H Calcium 8.5 Total Bilirubin 0.80 Direct Bilirubin 0.32 H AST 39 H ALT 22 Alkaline Phosphatase 132 H Troponin I High Sens 23 Total Protein 7.6 Albumin 2.4 L Globulin 5.2 H Lipase 13 Urine Color Yellow Urine Clarity Sl. Cloudy Urine pH 5.0 Ur Specific [place] 1.015 Urine Protein 30 H Urine Glucose (UA) Normal Urine Ketones Negative Urine Occult Blood 25 H Urine Nitrite Negative Urine Bilirubin Negative Urine Urobilinogen 4 H Ur Leukocyte Esterase 25 H Urine RBC 0 SEEN Urine WBC 0 SEEN Ur Squamous Epith Cells 0 SEEN Urine Bacteria 0 SEEN Urine Mucus 0 SEEN Radiography Diagnostic Testing: Clinical Impression(s) from Imaging Studies Brain CT 01/24/23 22:24 IMPRESSION: Cerebral atrophy and chronic small vessel ischemic changes. No evidence of acute intracranial abnormality. Right maxillary sinusitis. Electronically Signed: Christian Soares MD at 0:21 EST , Lumbar Spine CT 01/24/23 22:24 IMPRESSION: 1. Chronic L4 vertebral body compression fracture 2. Multilevel lumbar spondylosis with moderate spinal canal and bilateral neural foraminal stenosis at L3-4 Electronically Signed: Christian Soares MD at 0:28 EST , Chest X-Ray 01/24/23 23:10 IMPRESSION: No active disease. Cardiomegaly. Electronically Signed: Murtaza Donald MD at 23:33 EST , EKG Initial EKG: Attestation: I personally reviewed and interpreted this EKG as follows: Comments: Normal sinus rhythm ventricular rate of 82 bpm Discharge Plan Dx/Rx/DC Orders Clinical Impression: Fall, COPD (chronic obstructive pulmonary disease), Adult failure to thrive, Back pain, Chronic hypoxic respiratory failure Disposition Disposition: Acute Care Hospital [facility]
--- NOTE | 2023-01-24 22:24 | CT_ITS ---
INDICATION: Low back pain, weakness EXAMINATION: CT LUMBAR SPINE - CT Spine Lumbar W/O Contrast Injection TECHNIQUE: Helically acquired images were obtained of the lumbar spine. 2D reformats were reviewed. A radiation dose optimization technique was used for this scan. IV Contrast dosage and agent: None. COMPARISON: MRI of lumbar spine from 06/24/2022 FINDINGS: Stable chronic L4 vertebral body compression fracture with up to 50% loss of vertebral body height anteriorly. No significant osseous retropulsion or prevertebral soft tissue swelling. No acute fracture identified. Stable mild thoracolumbar levoscoliotic curvature. No significant lumbar spondylolisthesis. Multilevel lumbar degenerative facet arthropathy. Lower lumbar degenerative vacuum disc changes with chronic disc space narrowing at L5-S1. Moderate spinal canal stenosis at L3-4 secondary to posterior disc bulging and ligamentum flavum hypertrophy. Mild to moderate bilateral neural foraminal stenosis at L3-4 secondary to facet hypertrophy. Atherosclerotic calcifications with no abdominal aortic aneurysm. No retroperitoneal adenopathy. Cholecystectomy clips noted. CT/Spine Lumbar without Contrast IMPRESSION: 1. Chronic L4 vertebral body compression fracture 2. Multilevel lumbar spondylosis with moderate spinal canal and bilateral neural foraminal stenosis at L3-4 Electronically Signed: Christian Soares MD at 0:28 EST ,
--- NOTE | 2023-01-24 22:24 | EKG12_ITS ---
Test Reason : WEAKNESS Blood Pressure : / mmHG Vent. Rate : 082 BPM Atrial Rate : 082 BPM P-R Int : 170 ms QRS Dur : 074 ms QT Int : 384 ms P-R-T Axes : 063 062 032 degrees QTc Int : 448 ms Normal sinus rhythm Nonspecific ST and T wave abnormality Abnormal ECG Confirmed by CONSUELO GOLD, EDDY ([id number]), medical transcription editor WALLY LOAIZA ([id number]) on 01/26/2023 1:19:33 PM Referred By: Confirmed By:EDDY CORDERO MD
--- NOTE | 2023-01-24 22:24 | CT_ITS ---
INDICATION: ams EXAMINATION: CT Head or Brain W/O Contrast Injection TECHNIQUE: Multiple axial images were obtained of the head without intravenous contrast. A radiation dose optimization technique was used for this scan. IV Contrast dosage and agent: None. COMPARISON: Head CT from 04/19/2022 FINDINGS: BRAIN PARENCHYMA: No intra- or extra-axial hemorrhage. No evidence of acute major territorial infarct. Chronic right basal ganglia and bilateral thalamic lacunar infarcts. No intracranial mass effect or midline shift. Chronic bilateral deep and subcortical cerebral white matter lucencies. Chronic cerebral involutional changes. CSF SPACES: Prominent cerebral sulci and extraaxial spaces secondary to involutional changes. No hydrocephalus. Basal cisterns are patent. Intracranial atherosclerotic calcifications. CALVARIUM, SKULL BASE, PARANASAL SINUSES AND MASTOID AIR CELLS: Calvarium is intact. Scattered sinus mucosal thickening with partial opacification right maxillary sinus. Mastoid air cells are well-pneumatized. ORBITS: No acute findings, as visualized. CT/Brain/Head without Contrast IMPRESSION: Cerebral atrophy and chronic small vessel ischemic changes. No evidence of acute intracranial abnormality. Right maxillary sinusitis. Electronically Signed: Christian Soares MD at 0:21 EST ,
[2023-01-24 22:39] VITALS: O2SAT 95
[2023-01-24] MEDS: HYDROcodone Bitartrate/Apap 5/325 Tablet PO (22:40)
[2023-01-24 23:03] LABS: Absolute Lymphocyte Count 1.52 X10^3/uL (0.83-4.51); Absolute Neutrophil Count 12.9 X10^3/uL (2.0-7.7); Basophil# 0.03 X10^3/uL; Basophil% 0.2 % (0-1); Eosinophils% 0.6 % (0-5); Hematocrit 30.5 % (37-47); Hemoglobin 9.1 g/dL (12.0-15.0); Lymphocyte # 1.52 X10^3/ul (0.83-4.51); Lymphocyte % 9.5 % (19-41); Mean Corp Hgb Conc 29.8 g/dL (32-36); Mean Corpuscular Hgb 25.6 pg (27.0-32.0); Mean Corpuscular Volume 85.7 fL (81-99); Mean Platelet Vol. 9.2 fl (6.2-12.0); Monocyte# 1.12 X10^3/uL; NRBC Flagged by Analyzer 0.1 % (0-5); Neutrophil # 12.85 X10^3/uL (2.7-7.7); Neutrophil % 80.6 % (47-70); Platelet Count 366 K/mm3 (150-450); RBC Distribution Width SD 53.4 fl (35.1-43.9); Red Blood Count 3.56 M/mm3 (4.2-5.4)
--- NOTE | 2023-01-24 23:10 | RAD_ITS ---
STUDY: X-RAY CHEST REASON FOR EXAM: Female, 77 years old. dyspnea TECHNIQUE: Single AP portable view of the chest. COMPARISON: 11/27/2022 FINDINGS: Status post median sternotomy. The lungs are clear and expanded. There is no demonstrated pleural abnormality. There is moderate cardiac enlargement. Normal mediastinum and beverly. Normal visualized pulmonary arteries. Normal visualized aortic arch and descending thoracic aorta. Normal visualized thoracic spine. Normal visualized ribs, clavicles, and shoulders. There is no demonstrated abnormality of the visualized soft tissue structures of the upper abdomen. RAD/Chest 1 View (Portable) IMPRESSION: No active disease. Cardiomegaly. Electronically Signed: Murtaza Donald MD at 23:33 EST ,
[2023-01-24 23:12] LABS: International Normalized Ratio 1.2; Partial Thromboplast Time 30.7 Seconds (24.1-36.2); Prothrombin Time (Protime)PT. 15.1 SECONDS (11.7-14.9)
[2023-01-24 23:27] LABS: AST(SGOT) 39 U/L (15-37); Alanine Aminotransfer ALT/SGPT 22 U/L (13-56); Albumin, Serum 2.4 g/dL (3.2-5.0); Alkaline Phosphatase 132 U/L (45-117); Anion Gap 4 (5-15); BUN 16 mg/dL (7-18); BUN/Creat Ratio 15.7 RATIO (10-20); Bilirubin, Direct 0.32 mg/dL (0.00-0.30); Calcium,Total 8.5 mg/dL (8.5-10.1); Chloride 100 mmol/L (98-107); Creatinine, Serum 1.02 mg/dL (0.55-1.02); EST Glomerular Filtration Rate 56 mL/min (>60); Est Glom Filt Rate - Afr Amer 68 mL/min (>60); Estimated Creatinine Clearance 34.23 ml/min; Globulin 5.2 g/dL (2.2-4.2); Glucose 132 mg/dL (74-106); Lipase 13 U/L (13-75); Potassium 3.4 mmol/L (3.5-5.1); Protein, Total 7.6 g/dL (6.4-8.2); Sodium Level 136 mmol/L (136-145); Troponin-I HS 23 pg/mL (3.0-54.0)
[2023-01-25] VITALS (10 sets, daily range): BP systolic 99–159; BP diastolic 37–85; PULSE 63–94; RESP 16–19; TEMP 36.5–39.4; O2SAT 93–97; BMI 27.3
[2023-01-25 00:23] LABS: Bacteria 0 SEEN /hpf (None Seen); Mucous, Urine 0 SEEN /hpf (<or=2+); Red Blood Cells-Urine 0 SEEN /hpf (0-5); Squamous Epithelial Cells - UA 0 SEEN /hpf (5-10); White Blood Cells 0 SEEN /hpf (0-5)
[2023-01-25 00:45] LABS: Color, Urine Yellow (Yellow); Glucose, Dipstick Normal (Normal); Ketone-Dipstick Negative (Negative); Leukocyte Esterase-Dipstick 25 /ul (Negative); Nitrite-Dipstick Negative (Negative); Occult Blood-Urine 25 /ul (Negative); Protein-Dipstick 30 mg/dl (Negative); Specific Gravity, Urine 1.015 (1.002-1.030); Urine Bilirubin Dipstick Negative (Negative); Urine Clarity Sl. Cloudy (Clear); Urine Urobilinogen 4 mg/dl (Normal)
--- NOTE | 2023-01-25 01:49 | HP.PCM.HOS_ITS ---
HPI - General General Date of Admission: 01/25/23 Date of Service: 01/25/23 Chief Complaint: Weakness, debility, falls, diarrhea. HPI Narrative The patient is a 77 y/o F w/ PMHx: Chronic Diastolic HF, Anxiety and Depression, Chronic anemia, COPD, Hx CVA/TIA, Carotid arthery stenosis, BZD dependence history, Hx Rectal CA, Hx Thyroid CA s/p resection with resulting hypothyroidism, JAIME, CAD s/p PCI and CABG x 3, Tobacco use who presents to the [facility] ED on 01/24/23 with history of progressively worsening decline with increased falls and weakness with urinary incontinence with daughter reporting that she is unable to safely care for her at home and her declining state prompting ED evaluation. Family and patient do report that her stools have been loose. EMS upon arrival noted she was both incontinent of stool and urine. She does have chronic low back pain and been worsening since her fall in the morning with acute on chronic left lower extremity discomfort. Patient does report issues with incontinence because difficulty getting to the bathroom. Patient does report some cramping with loose stools. She does report some mild con gestion recently. Workup in the ED included T98.4, heart rate 88, BP 120/51, respiratory rate 22, 90% on room air-> 95% on 2 L nasal cannula, CBC with a BC 16, hemoglobin 9.1, MCV 85.7, platelet 366 with left shift, coags with PT 15.1, INR 1.2, PTT 30.7, CMP with potassium 3.4, glucose 132, T bili 0.8, D bili 0.32, AST/ALT 39/22, alk phos 132, troponin 23, lipase 13, chest x-ray with no active disease with cardiomegaly, CT of the brain atrophy and chronic small vessel ischemic changes with no evidence of acute intracranial abnormality with right maxillary sinusitis, CT lumbar spine chronic L4 vertebral body compression fracture, multilevel lumbar spondylosis with moderate spinal canal and bilateral neuroforaminal stenosis at L3-4., SARS COVID and influenza antigens negative, EKG with sinus rhythm with no acute evidence of ischemia, urinalysis pending upon requested evaluation of patient. In the ED patient administered hydrocodone 1 tablet p.o. x 1. [facility] Medical History (Updated 01/25/23 @ 02:[address] Melany Villafana MD) Acute leg pain Adult failure to thrive Anemia Anxiety and depression Atherosclerosis of coronary artery bypass graft without angina pectoris Atherosclerosis of coronary artery of [place] heart with angina pectoris Avascular necrosis of bone of left hip Avascular necrosis of femur head, left Back pain Benzodiazepine dependence CAD (coronary artery disease) Carotid artery stenosis Community acquired pneumonia COPD (chronic obstructive pulmonary disease) COPD (chronic obstructive pulmonary disease) CVA (cerebral vascular accident) DDD (degenerative disc disease), lumbar Declining functional status Depression with anxiety Diastolic dysfunction Elevated troponin Essential (primary) hypertension Guaiac positive stools H/O: pneumonia Hemorrhoids, external History of rectal cancer History of thyroid cancer Hyperlipidemia Hypothyroidism Nicotine dependence Non-rheumatic mitral regurgitation Non-rheumatic tricuspid valve insufficiency Non-ST elevation (NSTEMI) myocardial infarction Obstructive sleep apnea Osteoarthritis of left hip Rectal cancer Secondary pulmonary arterial hypertension TIA (transient ischemic attack) TIA (transient ischemic attack) Unable to bear weight on left lower extremity Home Medications levothyroxine 75 mcg tablet 75 mcg PO DAILY thyroid 09/06/17 [History Last Taken 04/19/22] citalopram 40 mg tablet 40 mg PO DAILY depression 12/18/17 [History Last Taken 04/19/22] atenolol 50 mg tablet 50 mg PO DAILY heart rate 01/05/18 [History Last Taken 04/19/22] atorvastatin 40 mg tablet 40 mg PO QHS cholesterol 01/05/18 [History Last Taken 04/18/22] albuterol sulfate 0.63 mg/3 mL solution for nebulization 0.63 mg inhalation Q4H PRN Congestion 07/14/18 [History Last Taken 1 Week Ago ~10/01/21] bupropion HCl 100 mg tablet 100 mg PO DAILY mood 01/16/19 [History Last Taken 04/19/22] pantoprazole 40 mg tablet,delayed release 40 mg PO BID gerd 01/16/19 [History Last Taken 04/19/22] gabapentin 100 mg capsule 200 mg PO TID pain 10/08/21 [History Last Taken 04/18/22] oxybutynin chloride 5 mg tablet,extended release 24 hr 5 mg PO DAILY bladder 10/08/21 [History Last Taken 04/19/22] trazodone 100 mg tablet 100 mg PO QHS sleep 10/08/21 [History Last Taken 04/18/22] lisinopril 20 mg tablet 20 mg PO DAILY BP 04/10/22 [History Last Taken 04/19/22] amlodipine 10 mg tablet 10 mg PO DAILY 30 days #30 tabs 04/23/22 [Rx Last Taken Unknown] clopidogrel 75 mg tablet 75 mg PO QODAY 07/12/22 [History Last Taken Unknown] lorazepam 1 mg tablet 1 mg PO 4X/DAY anxiety 07/12/22 [History Last Taken Unknown] furosemide 20 mg tablet (Lasix) 40 mg (2 x 20 mg) PO DAILY #60 tabs 12/23/22 [Rx Last Taken Unknown] Allergy/AdvReac Type Severity Reaction Status Date / Time morphine Allergy PT UNSURE Verified 01/24/23 22:00 Penicillins Allergy Hives Verified 01/24/23 22:00 tramadol HCl [From Ultram] Allergy PT UNSURE Verified 01/24/23 22:00 bupropion [From Wellbutrin] AdvReac hallucinati Verified 01/24/23 22:00 ons Family History Father Heart disease of heart attack at age 64 Mother Cancer of cancer at age 72 CVA (cerebral vascular accident) Surgical History History of appendectomy History of coronary artery bypass graft x 3 (~2007) History of coronary artery stent placement (10/10/21) History of left heart catheterization (10/10/21) Hx of cholecystectomy Hx of thyroidectomy Presence of stent in coronary artery (~10/10/21) Social History household members: significant other housing: house Smoking Status: Current every day smoker tobacco type: cigarettes details: Patient denies alcohol use substance use type: does not use ROS ROS Narrative Admission Review of Systems: CONSTITUTIONAL: No weight loss, fever, chills, + weakness or fatigue. HEENT: + Mild congestion. Eyes: No visual loss, blurred vision, double vision or yellow sclerae. Ears, Nose, Throat: No hearing loss, sneezing, sore throat. SKIN: + Various abrasions, ecchymoses, stage. CARDIOVASCULAR: No chest pain, chest pressure or chest discomfort, palpitations, edema, orthopnea, syncopal events. RESPIRATORY: + Chronic cough. No shortness of breath, marked sputum production, wheezing, hemoptysis. GASTROINTESTINAL: + Diarrhea. No anorexia, nausea, vomiting, abdominal pain, melena, BRBPR. GENITOURINARY: + Urinary incontinence. No dysuria, frequency, urgency or retention. NEUROLOGICAL: + Frequent falls debility, cognitive decline, chronic radiculopathy. No headache, dizziness, syncope, paralysis, ataxia, numbness or tingling in the extremities, focal weakness, change in bowel or bladder control, seizure. MUSCULOSKELETAL: + muscle, back pain, joint pain or stiffness. HEMATOLOGIC: + anemia, bleeding or bruising. LYMPHATICS: No enlarged nodes. No history of splenectomy. PSYCHIATRIC: + history of depression and anxiety. ENDOCRINOLOGIC: No reports of sweating, cold or heat intolerance. No polyuria or polydipsia. ALLERGIES: No history of asthma, hives, eczema or rhinitis. Vital Signs Vital Signs Vital Signs: 01/24/23 22:00 01/24/23 22:21 01/24/23 22:39 Temperature 98.4 F Temperature Source Temporal Pulse Rate 88 Respiratory Rate 22 H Respiratory Pattern Normal Blood Pressure 128/51 H Blood Pressure Mean 76 Pulse Ox 90 95 Oxygen Delivery Method Room Air Nasal Cannula Oxygen Flow Rate (L/min) 2 01/24/23 22:10 01/25/23 00:20 Temperature Temperature Source Pulse Rate 77 Respiratory Rate 16 Respiratory Pattern Blood Pressure 99/53 L Blood Pressure Mean 68 Pulse Ox 88 96 Oxygen Delivery Method Room Air Nasal Cannula Oxygen Flow Rate (L/min) 2 Weight Weight: 149 lb 0.52 oz Body Mass Index (BMI) 29.0 Physical Exam Narrative Physical Examination: General: Awake, alert, oriented x 3 and cooperative, seated upright in the ED bed in no apparent distress, fatigued appearing. Skin: Normal color, normal turgor, no icterus, no cyanosis except occasional staged ecchymoses. HEENT: AT/NC, EOMI, PERRLA, dry MM, no carotid bruits or JVD noted. Lungs: Diminished, greater bases, appropriate effort, no appreciated rales or rhonchi, very scant occasional wheeze, clears with cough. Heart: Regular rate and rhythm; no gallop, rub audible. Abdomen: Soft, overweight, NTTP, no evidence of distention, hyperactive BS, no appreciated HSM. Extremities: No cyanosis, clubbing, or edema. Neurological: Patient awake, alert, oriented as noted, cognitive function appears likely baseline intact; pupils equally reactive to light and accommodation, cranial nerves grossly normal, moving all 4 extremities, no focal deficits, strength moderately to severely globally decreased secondary to acute presentation and underlying comorbidities. Psychiatric: Affect appears flat, fatigued, no acute evidence of depressive or anxiety feelings but does have underlying history. Results Lab / Micro Data 01/24/23 22:50 01/24/23 22:50 Labs: Laboratory Results - last 24 hr 01/24/23 00:11: Urine Color Yellow, Urine Clarity Sl. Cloudy, Urine pH 5.0, Ur Specific [place] 1.015, Urine Protein 30 H, Urine Glucose (UA) Normal, Urine Ketones Negative, Urine Occult Blood 25 H, Urine Nitrite Negative, Urine Bilirubin Negative, Urine Urobilinogen 4 H, Ur Leukocyte Esterase 25 H, Urine RBC 0 SEEN, Urine WBC 0 SEEN, Ur Squamous Epith Cells 0 SEEN, Urine Bacteria 0 SEEN, Urine Mucus 0 SEEN 01/24/23 22:50: WBC 16.0 H, RBC 3.56 L, Hgb 9.1 L, Hct 30.5 L, MCV 85.7, MCH 25.6 L, MCHC 29.8 L, RDW Std Deviation 53.4 H, RDW Coeff of John 17.0 H, Plt Count 366, MPV 9.2, Immature Gran % (Auto) 2.100 H, Neut % (Auto) 80.6 H, Lymph % (Auto) 9.5 L, Wilkes % (Auto) 7.0, Eos % (Auto) 0.6, Baso % (Auto) 0.2, Absolute Neuts (auto) 12.9 H, Absolute Lymphs (auto) 1.52, Nucleated RBC % 0.1, PT 15.1 H , INR 1.2, APTT 30.7, Sodium 136, Potassium 3.4 L, Chloride 100, Carbon Dioxide 32.0, Anion Gap 4 L, BUN 16, Creatinine 1.02, Estim Creat Clear Calc 34.23, Est GFR (MDRD) Af Amer 68, Est GFR (MDRD) Non-Af 56 L, BUN/Creatinine Ratio 15.7, Glucose 132 H, Calcium 8.5, Total Bilirubin 0.80, Direct Bilirubin 0.32 H, AST 39 H, ALT 22, Alkaline Phosphatase 132 H, Troponin I High Sens 23, Total Protein 7.6, Albumin 2.4 L, Globulin 5.2 H, Lipase 13 Micro: Microbiology 01/24/23 22:45 Nasal Secretion SARS-CoV-2 & FLU Antigen (Rapid) - Final Imagaing Radiology Impression Brain CT 01/24/23 22:24 IMPRESSION: Cerebral atrophy and chronic small vessel ischemic changes. No evidence of acute intracranial abnormality. Right maxillary sinusitis. Electronically Signed: Christian Soares MD at 0:21 EST , Lumbar Spine CT 01/24/23 22:24 IMPRESSION: 1. Chronic L4 vertebral body compression fracture 2. Multilevel lumbar spondylosis with moderate spinal canal and bilateral neural foraminal stenosis at L3-4 Electronically Signed: Christian Soares MD at 0:28 EST , Chest X-Ray 01/24/23 23:10 IMPRESSION: No active disease. Cardiomegaly. Electronically Signed: Murtaza Donald MD at 23:33 EST , Assessment & Plan Assessment/Plan (1) Adult failure to thrive: PLAN: Plan The patient is a 77 y/o F w/ PMHx: Chronic Diastolic HF, Anxiety and Depression, Chronic anemia, COPD, Hx CVA/TIA, Carotid arthery stenosis, BZD dependence history, Hx Rectal CA, Hx Thyroid CA s/p resection with resulting hypothyroidism, JAIME, CAD s/p PCI and CABG x 3, Tobacco use who presents to the [facility] ED on 01/24/23 with history of progressively worsening decline with increased falls and weakness with urinary incontinence with daughter reporting that she is unable to safely care for her at home and her declining state prompting ED evaluation. #1. Frequent mechanical falls with progressive decline, worsening with adult failure to thrive with recent diarrhea of unclear etiology and mild hypoxia as noted #2 of unclear etiology, last records appear appropriate oxygenation on room air: Will admit to medical surgical floor, maintain on fall precautions, given chronic back pain and debility will encourage frequent positional changes, will request enteric stool and C. difficile to be cautious with judicious IV fluids and if studies are unremarkable initiate loperamide, given patient's de mtz and inability to safely be at home will need skilled facility placement thus we will request PT and OT consultation as well as case management for discharge planning. #2. Chronic COPD w/ noted hypoxia upon presentation, unclear exact etiology: Chest x-ray with no acute cardiopulmonary findings, respiratory rapid viral antigens COVID/influenza negative, will maintain on oxygen with wean as tolerated to room air, continue ATC budesonide, PRN albuterol, HOB, IS parameters. Given mild hypoxia will repeat chest x-ray in a.m. following judicious hydration overnight. Procalcitonin requested. Full respiratory viral panel requested. COVID requested. #3. Hypokalemia: Admission K+ 3.4, magnesium level requested, supplementation given, repeat level in AM. #4. Lumbar disease: CT lumbar spine with chronic L4 vertebral body compression fracture with multilevel lumbar spondylosis with moderate spinal canal and bilateral neuroforaminal stenosis at L3-4, certainly complicates presentation and patient fall risk, will encourage frequent positional changes, PT/OT/case management consulted for discharge planning. #5. Chronic normocytic anemia: Admission hemoglobin 9.1, baseline hemoglobin appears primarily 9-11, will continue to trend. #6. Chronic diastolic CHF: 04/21/2022 echocardiogram with normal LV size, normal LV systolic function, EF 60%, stage II diastolic dysfunction, PASP 50 mmHg with moderate pulmonary hypertension, will continue Plavix, statin, temporally holding hypertensive regimen given low BP in the ED as noted, add back once appropriate. #7. CAD: Status post CABG x 3 and PCI, will continue plavix, atenolol, lisinopril, atorvastatin home regimen. #8. Anxiety and depression: Clarifying as patient has been on significant Ativan regimen to assure this is correct, continue trazodone however if significant sedation will hold given fall history, continue bupropion and citalopram home regimen. #9. Hypertension: Given BP low normal currently in the ED will hold hypertensive regimen and resume once clinically appropriate. Continue to judiciously hydrate as noted. #10. Hyperlipidemia: We will continue patient home statin therapy. #11. History of thyroid cancer status post resection with hypothyroidism: We will continue patient home levothyroxine regimen. #12. History CVA/TIA: We will continue patient home plavix, statin therapy, no diabetic history. Temporarily holding hypertensive regimen given low BP in the ED as noted. Add back once appropriate. #13. History of rectal cancer: Unclear specific interventions previously, poor historian with declining mental capacity, encourage continued outpatient follow- up with oncology and colorectal surgery as previously arranged. #14. Tobacco Abuse: Encouraged cessation, inpatient consultation per RT, NR if desired. #15. DVT prophylaxis: Lovenox. #16. CODE status: Patient CELIA is two daughters and living will is she believes in place. Discussed CODE status at length including difference between FULL code, DNR-CCA and DNR-CC status. Following discussions about the differences in these status, requested DNR-CCA, no intubation status. Advanced Care Planning Face to Face Time: 16 minutes. Charges/Coding Visit Charges Inpatient E&M: 05439 Init Hosp L3 Procedures Hospitalists Procedures: 53009 Advncd Care Plan 30 Min
[2023-01-25] MEDS: 0.9% Normal Saline (500mL Bag) 500 ML 999 ML IV (03:36)
[2023-01-25] MEDS: Potassium Chloride Oral Tablet 20 MEQ 40 MEQ PO (03:37)
[2023-01-25] MEDS: 0.9% Saline Lock 10 ML Syringe IV (03:38)
[2023-01-25 04:05] LABS: Absolute Lymphocyte Count 1.54 X10^3/uL (0.83-4.51); Absolute Neutrophil Count 11.3 X10^3/uL (2.0-7.7); Basophil# 0.07 X10^3/uL; Basophil% 0.5 % (0-1); Eosinophils% 1.4 % (0-5); Hematocrit 29.9 % (37-47); Hemoglobin 8.9 g/dL (12.0-15.0); Lymphocyte # 1.54 X10^3/ul (0.83-4.51); Lymphocyte % 10.8 % (19-41); Mean Corp Hgb Conc 29.8 g/dL (32-36); Mean Corpuscular Hgb 25.5 pg (27.0-32.0); Mean Corpuscular Volume 85.7 fL (81-99); Mean Platelet Vol. 9.6 fl (6.2-12.0); Monocyte# 0.91 X10^3/uL; Monocyte% 6.4 % (0-10); NRBC Flagged by Analyzer 0 % (0-5); Neutrophil # 11.25 X10^3/uL (2.7-7.7); Neutrophil % 79.3 % (47-70); POSITIVE COUNT YES; Platelet Count 318 K/mm3 (150-450); RBC Distribution Width CV 17.1 % (11.6-14.6); RBC Distribution Width SD 53.2 fl (35.1-43.9); Red Blood Count 3.49 M/mm3 (4.2-5.4); White Blood Count 14.2 K/mm3 (4.4-11.0)
[2023-01-25 04:12] LABS: Differential Indicated SCAN CRITERIA MET
[2023-01-25 04:27] LABS: ALB/GLOB Ratio 0.5 RATIO (0.9-2.4); AST(SGOT) 39 U/L (15-37); Alanine Aminotransfer ALT/SGPT 20 U/L (13-56); Albumin, Serum 2.3 g/dL (3.2-5.0); Alkaline Phosphatase 127 U/L (45-117); Anion Gap 5 (5-15); BUN 18 mg/dL (7-18); BUN/Creat Ratio 16.8 RATIO (10-20); Calcium,Total 8.2 mg/dL (8.5-10.1); Chloride 103 mmol/L (98-107); Creatinine, Serum 1.07 mg/dL (0.55-1.02); EST Glomerular Filtration Rate 53 mL/min (>60); Est Glom Filt Rate - Afr Amer 64 mL/min (>60); Estimated Creatinine Clearance 32.63 ml/min; Glucose 119 mg/dL (74-106); Potassium 3.4 mmol/L (3.5-5.1); Protein, Total 7.3 g/dL (6.4-8.2); Sodium Level 140 mmol/L (136-145)
[2023-01-25 04:32] LABS: Differential Comment SCANNED
[2023-01-25] MEDS: 0.9% Normal Saline (1000mL) 1,000 ML 75 ML IV (04:34)
[2023-01-25] MEDS: Levothyroxine 75 MCG Tablet PO (04:41)
[2023-01-25] MEDS: Gabapentin 100 MG Capsule 200 MG PO ×3 (04:41→20:42)
[2023-01-25 04:42] LABS: Procalcitonin 0.18 ng/mL (0.00-0.09)
--- NOTE | 2023-01-25 05:35 | RAD_ITS ---
STUDY: X-RAY CHEST REASON FOR EXAM: Female, 77 years old. Hypoxia TECHNIQUE: Single AP portable view of the chest. COMPARISON: 01/24/2023 FINDINGS: Status post median sternotomy. The lungs are clear and expanded. There is no demonstrated pleural abnormality. Normal size heart. Normal mediastinum and beverly. Normal visualized pulmonary arteries. Normal visualized aortic arch and descending thoracic aorta. Normal visualized thoracic spine. Normal visualized ribs, clavicles, and shoulders. There is no demonstrated abnormality of the visualized soft tissue structures of the upper abdomen. RAD/Chest 1 View (Portable) IMPRESSION: No active disease. Cardiomegaly. Electronically Signed: Muratza Donadl MD at 18:10 EST ,
[2023-01-25 07:12] LABS: Magnesium 2.1 mg/dL (1.6-2.6)
[2023-01-25] MEDS: Budesonide Respules 0.5 MG/2 ML AMPUL.NEB. INHALATION (07:39)
[2023-01-25] MEDS: Enoxaparin 40 MG/0.4 ML Syringe SC (09:28)
[2023-01-25] MEDS: Tolterodine Tartrate 2 MG CAP.SA PO (09:28)
[2023-01-25] MEDS: LORazepam 1 MG Tablet PO ×4 (09:28→20:41)
[2023-01-25] MEDS: Pantoprazole Sodium 40 MG Tablet PO ×2 (09:28→20:43)
[2023-01-25] MEDS: Citalopram 40 MG TABLET PO (09:28)
[2023-01-25] MEDS: Clopidogrel Bisulfate 75 MG Tablet PO (09:28)
[2023-01-25] MEDS: buPROPion 100 MG Tablet PO (09:28)
[2023-01-25] MEDS: Menthol/Lanolin/Calamine/Znox 113 GM Tube 1 APPLIC TOPICAL ×2 (09:29→20:42)
[2023-01-25] MEDS: Acetaminophen 325 MG Tablet 650 MG PO ×2 (15:35→20:41)
[2023-01-25] MEDS: levoFLOXacin 500 MG Tablet PO (20:41)
[2023-01-25] MEDS: traZODone 100 MG Tablet PO (20:43)
[2023-01-25] MEDS: Atorvastatin Calcium 40 MG Tablet PO (20:43)
[2023-01-26] VITALS (11 sets, daily range): BP systolic 104–134; BP diastolic 59–77; PULSE 74–102; RESP 16–20; TEMP 36.3–37.6; O2SAT 88–97; BMI 27.3
[2023-01-26] MEDS: Furosemide 40 MG Tablet PO ×2 (00:52→07:45)
[2023-01-26] MEDS: Gabapentin 100 MG Capsule 200 MG PO (05:26)
[2023-01-26] MEDS: levoFLOXacin 250 MG Tablet PO (05:26)
[2023-01-26] MEDS: Levothyroxine 75 MCG Tablet PO (05:26)
[2023-01-26 06:33] LABS: Absolute Lymphocyte Count 1.14 X10^3/uL (0.83-4.51); Absolute Neutrophil Count 12.2 X10^3/uL (2.0-7.7); Basophil# 0.05 X10^3/uL; Basophil% 0.3 % (0-1); Eosinophil# 0.18 X10^3/uL; Eosinophils% 1.2 % (0-5); Hematocrit 28.1 % (37-47); Hemoglobin 8.3 g/dL (12.0-15.0); Lymphocyte # 1.14 X10^3/ul (0.83-4.51); Lymphocyte % 7.7 % (19-41); Mean Corp Hgb Conc 29.5 g/dL (32-36); Mean Corpuscular Hgb 25.5 pg (27.0-32.0); Mean Corpuscular Volume 86.2 fL (81-99); Mean Platelet Vol. 9.6 fl (6.2-12.0); Monocyte# 0.73 X10^3/uL; Monocyte% 4.9 % (0-10); NRBC Flagged by Analyzer 0 % (0-5); Neutrophil # 12.18 X10^3/uL (2.7-7.7); Neutrophil % 82.6 % (47-70); Platelet Count 335 K/mm3 (150-450); RBC Distribution Width SD 53.9 fl (35.1-43.9); Red Blood Count 3.26 M/mm3 (4.2-5.4); White Blood Count 14.8 K/mm3 (4.4-11.0)
[2023-01-26 06:48] LABS: Anion Gap 4 (5-15); BUN 13 mg/dL (7-18); BUN/Creat Ratio 16.4 RATIO (10-20); Calcium,Total 7.7 mg/dL (8.5-10.1); Chloride 104 mmol/L (98-107); Creatinine, Serum 0.79 mg/dL (0.55-1.02); EST Glomerular Filtration Rate 75 mL/min (>60); Est Glom Filt Rate - Afr Amer 91 mL/min (>60); Estimated Creatinine Clearance 34.91 ml/min; Glucose 92 mg/dL (74-106); Sodium Level 139 mmol/L (136-145)
[2023-01-26] MEDS: Citalopram 40 MG TABLET PO (07:43)
[2023-01-26] MEDS: Pantoprazole Sodium 40 MG Tablet PO ×2 (07:43→19:30)
[2023-01-26] MEDS: Tolterodine Tartrate 2 MG CAP.SA PO (07:43)
[2023-01-26] MEDS: buPROPion 100 MG Tablet PO (07:43)
[2023-01-26] MEDS: Enoxaparin 40 MG/0.4 ML Syringe SC (07:43)
[2023-01-26] MEDS: LORazepam 1 MG Tablet PO ×3 (07:46→22:53)
[2023-01-26] MEDS: Acetaminophen 325 MG Tablet 650 MG PO (07:46)
--- NOTE | 2023-01-26 09:01 | PN.HOSP_ITS ---
Reason for Visit Reason for Visit: Diagnoses Adult failure to thrive (01/25/23) Subjective Subjective Dozing off during encounter. Objective Data Objective Data Vital Signs: Vital Signs Temp Pulse Resp BP Pulse Ox O2 Del Method O2 Flow Rate 37.4 C H 85 20 H 128/74 H 92 Nasal Cannula 2 01/26/23 08:33 01/26/23 08:33 01/26/23 08:33 01/26/23 08:33 01/26/23 08:33 01/26/23 08:33 01/26/23 08:33 FiO2 2 01/25/23 20:27 Oxygen Flow Rate (L/min) 2 Oxygen Delivery Method Nasal Cannula Weight: 63.5 kg Body Mass Index (BMI) 27.3 Intake & Output: Intake and Output for Last 24 Hours 01/24/23 01/25/23 01/26/23 23:59 23:59 23:59 Intake Total 2520 / 2520 Output Total 900 / 900 850 / 850 Balance 1620 / 1620 -850 / -850 Lab / Micro Data 01/26/23 04:55 01/26/23 04:55 Labs: Laboratory Results - last 24 hr 01/26/23 04:55: WBC 14.8 H, RBC 3.26 L, Hgb 8.3 L, Hct 28.1 L, MCV 86.2, MCH 25.5 L, MCHC 29.5 L, RDW Std Deviation 53.9 H, RDW Coeff of John 17.0 H, Plt Count 335, MPV 9.6, Immature Gran % (Auto) 3.300 H, Neut % (Auto) 82.6 H, Lymph % (Auto) 7.7 L, Millard % (Auto) 4.9, Eos % (Auto) 1.2, Baso % (Auto) 0.3, Absolute Neuts (auto) 12.2 H, Absolute Lymphs (auto) 1.14, Nucleated RBC % 0, Sodium 139, Potassium 4.0, Chloride 104, Carbon Dioxide 31.0, Anion Gap 4 L, BUN 13, Creatinine 0.79, Estim Creat Clear Calc 34.91, Est GFR (MDRD) Af Amer 91, Est GFR (MDRD) Non-Af 75, BUN/Creatinine Ratio 16.4, Glucose 92, Calcium 7.7 L Micro: Microbiology 01/25/23 04:50 Mucosa - Nasopharyngeal Coronavirus COVID-19 PCR - Final 01/25/23 04:50 Mucosa - Nasopharyngeal Respiratory Panel (PCR) - Final 01/24/23 22:45 Nasal Secretion SARS-CoV-2 & FLU Antigen (Rapid) - Final Radiography Diagnostic Testing: Radiology Impression Chest X-Ray 01/25/23 05:35 IMPRESSION: No active disease. Cardiomegaly. Electronically Signed: Murtaza Donald MD at 18:10 EST , Physical Exam Const alert Constitutional Narrative: dozes off during encounter. Resp normal respiratory effort, no retractions, no use of accessory muscles and clear to auscultation bilaterally Cardio regular rate, regular rhythm, S1 normal heart sound and S2 normal heart sound GI normal to inspection, nondistended, normoactive bowel sounds, soft to palpation, non-tender and non-distended Extremity normal to inspection Assessment & Plan Assessment/Plan (1) Adult failure to thrive: PLAN: Plan #1. Frequent mechanical falls with progressive decline, * Likely has poor baseline performance status given evidence of chronic v ertebral fracture * I am concerned about polypharmacy. DC gabapentin. Start wean of lorazepam. Reviewed OARRS and pt takes it QID. Will do 3 times daily as needed for 1 week, then twice daily as needed for 1 week, then daily as needed for 1 week, then every other day as needed and then stop. Given her debility and what appears to be multiple falls, patient high risk with this medication. #2. Chronic COPD w/ noted hypoxia upon presentation, unclear exact etiology: * Chest x-ray with no acute cardiopulmonary findings, respiratory rapid viral antigens COVID/influenza negative, will maintain on oxygen with wean as tolerated to room air, continue ATC budesonide, PRN albuterol, HOB, IS parameters. #3. Hypokalemia: Resolved. Admission K+ 3.4, magnesium level requested, supplementation given, repeat level in AM. Chronic conditions: * Lumbar disease: CT lumbar spine with chronic L4 vertebral body compression fracture with multilevel lumbar spondylosis with moderate spinal canal and bilateral neuroforaminal stenosis at L3-4, certainly complicates presentation and patient fall risk, will encourage frequent positional changes, PT/OT/case management consulted for discharge planning. * Chronic normocytic anemia: Admission hemoglobin 9.1, baseline hemoglobin appears primarily 9-11, will continue to trend. * Chronic diastolic CHF: 04/21/2022 echocardiogram with normal LV size, normal LV systolic function, EF 60%, stage II diastolic dysfunction, PASP 50 mmHg with moderate pulmonary hypertension, will continue Plavix, statin, temporally holding hypertensive regimen given low BP in the ED as noted, add back once appropriate. * CAD: Status post CABG x 3 and PCI, will continue plavix, atenolol, lisinopril, atorvastatin home regimen. * Anxiety and depression: Clarifying as patient has been on significant Ativan regimen to assure this is correct, continue trazodone however if significant s edation will hold given fall history, continue bupropion and citalopram home regimen. * Hypertension: Given BP low normal currently in the ED will hold hypertensive regimen and resume once clinically appropriate. Continue to judiciously hydrate as noted. * Hyperlipidemia: We will continue patient home statin therapy. * History of thyroid cancer status post resection with hypothyroidism: We will continue patient home levothyroxine regimen. * History CVA/TIA: We will continue patient home plavix, statin therapy, no diabetic history. Temporarily holding hypertensive regimen given low BP in the ED as noted. Add back once appropriate. * History of rectal cancer: Unclear specific interventions previously, poor historian with declining mental capacity, encourage continued outpatient follow-up with oncology and colorectal surgery as previously arranged. * Tobacco Abuse: Encouraged cessation, inpatient consultation per RT, NR if desired. DVT prophylaxis: Lovenox. CODE status: DNRCCA. no intubation. Disposition to SNF. Charges/Coding Visit Charges Inpatient E&M: 96442 Subs Hosp L2
--- NOTE | 2023-01-26 10:35 | CASEMGMT ---
RN FITZ Face to Face with patient for initial transition planning/care coordination assessment. RN CM introduced self and role at [facility]. Patient lying in bed, alert and oriented. Patient willing to participate in assessment and is able to answer all questions appropriately. Care providers, pharmacy, and demographics verified. Patient wishes to discharge home with HHC but willing to go to SNF if recommend, will monitor progress with therapy. Patient states she has no further needs or concerns at this time. CM to follow for discharge planning needs that may arise. PCP: Crystal Specialists: ADRIANNA, computer technician Preferred Pharmacy: [facility] Insurance: [facility] Prescription Benefit: yes Living Will/HPOA: yes both daugthers Shyanne and Santa LNOK: daughters Living Arrangements: Patient lives with daughter in a 2 story home with bed and bath on first floor, 2 steps and railing to enter the home. Patient states she is independent at home. Transportation: daughters DME/HHC: Patient has shower chair, cane, walker, rollator, grab bars, and electric wheelchair at home. Patient has had HHC in the past but could not recall agency. Disposition Plan: TBD, anticipate HHC vs SNF pending progress with therapy. Marilou VELASQUEZ, RN, CM
[2023-01-26] MEDS: Menthol/Lanolin/Calamine/Znox 113 GM Tube 1 APPLIC TOPICAL ×2 (13:18→19:30)
[2023-01-26] MEDS: Atorvastatin Calcium 40 MG Tablet PO (19:30)
[2023-01-27 03:30] VITALS: BP 157/82; PULSE 87; RESP 16; TEMP 36.6; O2SAT 96; BMI 28.0
[2023-01-27] MEDS: levoFLOXacin 250 MG Tablet PO (05:08)
[2023-01-27] MEDS: Levothyroxine 75 MCG Tablet PO (05:08)
--- NOTE | 2023-01-27 07:55 | PN.HOSP_ITS ---
Reason for Visit Reason for Visit: Diagnoses Adult failure to thrive (01/25/23) Subjective Subjective Feeling anxious. Was asking nursing why her lorazepam was decreased from 4 times daily to 3 times daily. Objective Data Objective Data Vital Signs: Vital Signs Temp Pulse Resp BP Pulse Ox O2 Del Method O2 Flow Rate 36.6 C 87 16 157/82 H 96 Nasal Cannula 2 01/27/23 03:30 01/27/23 03:30 01/27/23 03:30 01/27/23 03:30 01/27/23 03:30 01/27/23 06:28 01/27/23 06:28 FiO2 2 01/25/23 20:27 Oxygen Flow Rate (L/min) 2 Oxygen Delivery Method Nasal Cannula Weight: 65.1 kg Body Mass Index (BMI) 28.0 Intake & Output: Intake and Output for Last 24 Hours 01/25/23 01/26/23 01/27/23 23:59 23:59 23:59 Intake Total 2520 / 2520 600 / 1080 680 / 680 Output Total 900 / 900 950 / 950 1250 / 1250 Balance 1620 / 1620 -350 / 130 -570 / -570 Lab / Micro Data 01/26/23 04:55 01/26/23 04:55 Micro: Microbiology 01/26/23 00:09 Sputum, Expectorated/Coughed Gram Stain - Final 01/25/23 04:50 Mucosa - Nasopharyngeal Coronavirus COVID-19 PCR - Final 01/25/23 04:50 Mucosa - Nasopharyngeal Respiratory Panel (PCR) - Final 01/24/23 22:45 Nasal Secretion SARS-CoV-2 & FLU Antigen (Rapid) - Final Physical Exam HEENT head/scalp atraumatic Extremity normal to inspection Neuro Sensorium / Orientation: awake and alert Psych affect normal Assessment & Plan Assessment/Plan (1) Adult failure to thrive: PLAN: Plan #1. Frequent mechanical falls with progressive decline, * Likely has poor baseline performance status given evidence of chronic vertebral fracture * I am concerned about polypharmacy. DC gabapentin. Start wean of lorazepam. Reviewed OARRS and pt takes it QID. Will do 3 times daily as needed for 1 week, then twice daily as needed for 1 week, then daily as needed for 1 week, then every other day as needed and then stop. Given her debility and what appears to be multiple falls, patient high risk with this medication. #2. Chronic COPD w/ noted hypoxia upon presentation, unclear exact etiology: * Chest x-ray with no acute cardiopulmonary findings, respiratory rapid viral antigens COVID/influenza negative, will maintain on oxygen with wean as tolerated to room air, continue ATC budesonide, PRN albuterol, HOB, IS parameters. #3. Hypokalemia: Resolved. Admission K+ 3.4, magnesium level requested, supplementation given, repeat level in AM. Chronic conditions: * Lumbar disease: CT lumbar spine with chronic L4 vertebral body compression fracture with multilevel lumbar spondylosis with moderate spinal canal and bilateral neuroforaminal stenosis at L3-4, certainly complicates presentation and patient fall risk, will encourage frequent positional changes, PT/OT/case management consulted for discharge planning. * Chronic normocytic anemia: Admission hemoglobin 9.1, baseline hemoglobin appears primarily 9-11, will continue to trend. * Chronic diastolic CHF: 04/21/2022 echocardiogram with normal LV size, normal LV systolic function, EF 60%, stage II diastolic dysfunction, PASP 50 mmHg with moderate pulmonary hypertension, will continue Plavix, statin, temporally holding hypertensive regimen given low BP in the ED as noted, add back once appropriate. * CAD: Status post CABG x 3 and PCI, will continue plavix, atenolol, lisinopril, atorvastatin home regimen. * Anxiety and depression: Clarifying as patient has been on significant Ativan regimen to assure this is correct, continue trazodone however if significant sedation will hold given fall history, continue bupropion and citalopram home regimen. * Hypertension: Given BP low normal currently in the ED will hold hypertensive regimen and resume once clinically appropriate. Continue to judiciously hydrate as noted. * Hyperlipidemia: We will continue patient home statin therapy. * History of thyroid cancer status post resection with hypothyroidism: We will continue patient home levothyroxine regimen. * History CVA/TIA: We will continue patient home plavix, statin therapy, no diabetic history. Temporarily holding hypertensive regimen given low BP in the ED as noted. Add back once appropriate. * History of rectal cancer: Unclear specific interventions previously, poor historian with declining mental capacity, encourage continued outpatient follow-up with oncology and colorectal surgery as previously arranged. * Tobacco Abuse: Encouraged cessation, inpatient consultation per RT, NR if desired. DVT prophylaxis: Lovenox. CODE status: DNRCCA. no intubation. Disposition to SNF. Discussed with the patient about the concerns with her falls as well as polypharmacy. She states that she has been on lorazepam for about 30 years. But discussed with her in detail about the physiologic dependence that develops with long-term use of benzodiazepines and informed her that I would not be stopping it imminently but would recommend to taper her off as I am concerned that she may be having adverse reactions such as overly somnolent with the lorazepam as well as gabapentin. So I did do recommend a slow taper over several weeks to off and discontinuing the gabapentin. Without explanation, patient, at least with me, was understanding. Greater than 35 minutes of which greater than 50% of time was counseling patient at bedside about the changes to her medications, the concern for polypharmacy and her somnolence. Charges/Coding Visit Charges Inpatient E&M: 10952 Subs Hosp L2
[2023-01-27 08:33] VITALS: BP 152/83; PULSE 98; RESP 16; TEMP 36.1; O2SAT 97
[2023-01-27] MEDS: Enoxaparin 40 MG/0.4 ML Syringe SC (08:45)
[2023-01-27] MEDS: Clopidogrel Bisulfate 75 MG Tablet PO (08:45)
[2023-01-27] MEDS: Furosemide 40 MG Tablet PO (08:46)
[2023-01-27] MEDS: Pantoprazole Sodium 40 MG Tablet PO ×2 (08:46→19:47)
[2023-01-27] MEDS: Tolterodine Tartrate 2 MG CAP.SA PO (08:46)
[2023-01-27] MEDS: Citalopram 40 MG TABLET PO (08:46)
[2023-01-27] MEDS: Menthol/Lanolin/Calamine/Znox 113 GM Tube 1 APPLIC TOPICAL ×3 (08:46→19:47)
[2023-01-27] MEDS: buPROPion 100 MG Tablet PO (08:46)
[2023-01-27] MEDS: LORazepam 1 MG Tablet PO ×3 (09:25→21:41)
[2023-01-27 12:40] VITALS: O2SAT 90
--- NOTE | 2023-01-27 13:32 | CASEMGMT ---
Discharge Planning A list of SNF providers including quality and resource use data and consistent with the patient's preferred geographic region, medical needs, and insurance network was created in [employer] Guide.? This list was provided to the SW. Marybeth Taylor Discharge Planning Asst.
--- NOTE | 2023-01-27 13:41 | CASEMGMT ---
Therapy is recommending detention facility for patient. SW met with patient. Introduced self and role at [facility]. SW explained recommendations and patient is agreeable. SW provided patient with a list of detention facility providers including quality and resource use data and consistent with patient?s preferred geographic region, medical needs, and insurance network were provided from the [employer] Guide. Patient said she cannot see the paper as she did not bring her glasses to the hospital. SW asked patient if she would like SW to call family. Patient asked SW to call her daughter Santa. SW called Santa and left her a voice mail requesting a return call. Plan: SNF pending SNF choices, accepting facility, and insurance approval. Fern SHELTON
[2023-01-27 15:00] VITALS: BP 117/76; PULSE 94; RESP 16; TEMP 36.1; O2SAT 93
--- NOTE | 2023-01-27 15:51 | CASEMGMT ---
SW has not heard back from patient's daughter. SW spoke with patient and let her know SW will leave the list with her and if her daughters come in they can review the list and pick facilities. SW also put a sticky note on the list with instructions to pick 3 facilities. SW also wrote SW's name and number on the list. Fern SHELTON
--- NOTE | 2023-01-27 15:51 | CHAPLAIN ---
Type of Pastoral Visit _x__ Initial Visit ___ Follow-up Visit ___ On-call Visit ___ General Patient Visit ___ Spiritual Assessment ___ Family Conference ___ Bereavement ___ Rapid Response ___ Code Blue ___ Other (describe below) Pastoral Care Referral From _x__ Patient ___ Family ___ Nurse ___ Physician ___ Resident Care Spec ___ Radiosonde Operator ___ Other (describe below) Sacrament/Intervention _x__ Active listening ___ Anointing ___ Shinto ___ Bereavement ___ Communion ___ Analia exploration ___ _x__ Life review _x__ Prayer ___ Reconciliation ___ Sacrament of Sick ___ Supportive presence ___ Wedding ___ Other (describe below) Pastoral Comments patient is given chance to talk about her feelings and her experience so far; pt states that this was sudden change as she became weak and unable to use legs; pt states that she just wants to go home but will wait through therapy in hopes of improvement; pt states she lives with family members and has good support from family; pt talks about her life and her family; pt relates that prayer is valued and would appreciate it for her needs
[2023-01-27] MEDS: Atorvastatin Calcium 40 MG Tablet PO (19:47)
[2023-01-27 21:00] VITALS: BP 127/80; PULSE 98; RESP 16; TEMP 37.1; O2SAT 94
[2023-01-28 05:00] VITALS: BP 139/88; PULSE 90; RESP 16; TEMP 36.6; O2SAT 94
[2023-01-28] MEDS: Levothyroxine 75 MCG Tablet PO (05:00)
[2023-01-28] MEDS: levoFLOXacin 250 MG Tablet PO (05:00)
[2023-01-28 06:00] VITALS: BMI 28.0
[2023-01-28 08:42] VITALS: BP 148/70; PULSE 92; RESP 16; TEMP 36.9; O2SAT 92
[2023-01-28] MEDS: Enoxaparin 40 MG/0.4 ML Syringe SC (08:45)
[2023-01-28] MEDS: Tolterodine Tartrate 2 MG CAP.SA PO (08:45)
[2023-01-28] MEDS: Pantoprazole Sodium 40 MG Tablet PO ×2 (08:45→20:48)
[2023-01-28] MEDS: LORazepam 1 MG Tablet PO ×2 (08:45→17:21)
[2023-01-28] MEDS: Menthol/Lanolin/Calamine/Znox 113 GM Tube 1 APPLIC TOPICAL ×3 (08:46→20:47)
[2023-01-28] MEDS: buPROPion 100 MG Tablet PO (08:46)
[2023-01-28] MEDS: Furosemide 40 MG Tablet PO (08:46)
[2023-01-28] MEDS: Citalopram 40 MG TABLET PO (08:46)
--- NOTE | 2023-01-28 08:48 | PN.HOSP_ITS ---
Reason for Visit Reason for Visit: Diagnoses Adult failure to thrive (01/25/23) Subjective Subjective No events overnight. Objective Data Objective Data Vital Signs: Vital Signs Temp Pulse Resp BP Pulse Ox O2 Del Method O2 Flow Rate 36.9 C 92 16 148/70 H 92 Room Air 2 01/28/23 08:42 01/28/23 08:42 01/28/23 08:42 01/28/23 08:42 01/28/23 08:42 01/28/23 08:42 01/27/23 06:34 FiO2 2 01/25/23 20:27 Oxygen Flow Rate (L/min) 2 Oxygen Delivery Method Room Air Weight: 65 kg Body Mass Index (BMI) 28.0 Intake & Output: Intake and Output for Last 24 Hours 01/26/23 01/27/23 01/28/23 23:59 23:59 23:59 Intake Total 600 / 1080 1160 / 1160 120 / 120 Output Total 950 / 950 2150 / 2150 200 / 200 Balance -350 / 130 -990 / -990 -80 / -80 Lab / Micro Data 01/26/23 04:55 01/26/23 04:55 Micro: Microbiology 01/26/23 00:09 Sputum, Expectorated/Coughed Gram Stain - Final 01/26/23 00:09 Sputum, Expectorated/Coughed Respiratory Culture - Preliminary Staphylococcus aureus Streptococcus pneumoniae 01/25/23 04:50 Mucosa - Nasopharyngeal Coronavirus COVID-19 PCR - Final 01/25/23 04:50 Mucosa - Nasopharyngeal Respiratory Panel (PCR) - Final 01/24/23 22:45 Nasal Secretion SARS-CoV-2 & FLU Antigen (Rapid) - Final Physical Exam Const alert and no apparent distress HEENT head/scalp atraumatic Neuro Sensorium / Orientation: awake and alert Assessment & Plan Assessment/Plan (1) Adult failure to thrive: PLAN: Plan #1. Frequent mechanical falls with progressive decline, * Likely has poor baseline performance status given evidence of chronic vertebral fracture * I am concerned about polypharmacy. DC gabapentin. Start wean of lorazepam. Reviewed OARRS and pt takes it QID. Will do 3 times daily as needed for 1 week, then twice daily as needed for 1 week, then daily as needed for 1 week, then every other day as needed and then stop. Given her debility and what appears to be multiple falls, patient high risk with this medication. #2. Chronic COPD w/ noted hypoxia upon presentation, unclear exact etiology: * Chest x-ray with no acute cardiopulmonary findings, respiratory rapid viral antigens COVID/influenza negative, will maintain on oxygen with wean as tolerated to room air, continue ATC budesonide, PRN albuterol, HOB, IS parameters. #3. Hypokalemia: Resolved. Admission K+ 3.4, magnesium level requested, supplementation given, repeat level in AM. Chronic conditions: * Lumbar disease: CT lumbar spine with chronic L4 vertebral body compression fracture with multilevel lumbar spondylosis with moderate spinal canal and bilateral neuroforaminal stenosis at L3-4, certainly complicates presentation and patient fall risk, will encourage frequent positional changes, PT/OT/case management consulted for discharge planning. * Chronic normocytic anemia: Admission hemoglobin 9.1, baseline hemoglobin appears primarily 9-11, will continue to trend. * Chronic diastolic CHF: 04/21/2022 echocardiogram with normal LV size, normal LV systolic function, EF 60%, stage II diastolic dysfunction, PASP 50 mmHg with moderate pulmonary hypertension, will continue Plavix, statin, temporally holding hypertensive regimen given low BP in the ED as noted, add back once appropriate. * CAD: Status post CABG x 3 and PCI, will continue plavix, atenolol, lisinopril, atorvastatin home regimen. * Anxiety and depression: Clarifying as patient has been on significant Ativan regimen to assure this is correct, continue trazodone however if significant sedation will hold given fall history, continue bupropion and citalopram home regimen. * Hypertension: Given BP low normal currently in the ED will hold hypertensive regimen and resume once clinically appropriate. Continue to judiciously hydrate as noted. * Hyperlipidemia: We will continue patient home statin therapy. * History of thyroid cancer status post resection with hypothyroidism: We will continue patient home levothyroxine regimen. * History CVA/TIA: We will continue patient home plavix, statin therapy, no diabetic history. Temporarily holding hypertensive regimen given low BP in the ED as noted. Add back once appropriate. * History of rectal cancer: Unclear specific interventions previously, poor historian with declining mental capacity, encourage continued outpatient foll ow-up with oncology and colorectal surgery as previously arranged. * Tobacco Abuse: Encouraged cessation, inpatient consultation per RT, NR if desired. DVT prophylaxis: Lovenox. CODE status: DNRCCA. no intubation. Disposition to SNF pending insurance authorization. 01/27: Discussed with the patient about the concerns with her falls as well as polypharmacy. She states that she has been on lorazepam for about 30 years. But discussed with her in detail about the physiologic dependence that develops with long-term use of benzodiazepines and informed her that I would not be stopping it imminently but would recommend to taper her off as I am concerned that she may be having adverse reactions such as overly somnolent with the lorazepam as well as gabapentin. So I did do recommend a slow taper over several weeks to off and discontinuing the gabapentin. Without explanation, patient, at least with me, was understanding. Charges/Coding Visit Charges Inpatient E&M: 18026 Subs Hosp L1
--- NOTE | 2023-01-28 08:51 | CASEMGMT ---
SW reviewed chart and noted in nursing handoff patient's family would like TCU. SW made a referral to [facility] TCU. TCU would like to know patient's d/c plan from TCU before officially accepting. SW went to patient's room. RN indicated patient's family came in last night. Per family mediator was upset no one from LOC called. SW did call patient's daughter Santa yesterday and even left a voice mail. Per RN patient's daughter will be in today to talk with LOC, but they were interested in TCU. Fern Carrera BUNDLE HELPER NIKITA
[2023-01-28 10:00] VITALS: O2SAT 91
--- NOTE | 2023-01-28 10:02 | CASEMGMT ---
LOC received a voice mail from patient's daughter Shyanne stating they would like [facility] TCU. LOC asked if the plan would be for patient to return home at time of d/c from [facility]. Shyanne said absolutely. They just moved her in with patient's other daughter. Everything was going well until patient fell around Thanksgiving. Ever since then patient has been weak. LOC let Shyanne know [facility] is willing to take patient pending approval from her insurance which could be a day or two. Someone will let them know when approval is received. LOC notified Claudia in TCU that the plan is home after TCU. Claudia will verify patient's meds are okay. Plan: [facility] TCU pending insurance approval. Fern SHELTON
[2023-01-28 14:42] VITALS: BP 117/67; PULSE 96; RESP 16; TEMP 36.6; O2SAT 94
[2023-01-28] MEDS: Acetaminophen 325 MG Tablet 650 MG PO (14:49)
--- NOTE | 2023-01-28 15:06 | CASEMGMT ---
Patient was approved for TCU, but cannot admit until tomorrow the as that is the date insurance put as the starting date for approval. Plan: d/c to [facility] TCU under skilled level of care Fern SHELTON
[2023-01-28 20:44] VITALS: BP 119/73; PULSE 88; RESP 14; TEMP 36.8; O2SAT 93
[2023-01-28] MEDS: Atorvastatin Calcium 40 MG Tablet PO (20:48)
[2023-01-29 03:09] VITALS: BP 128/84; PULSE 110; RESP 18; TEMP 36.8; O2SAT 92
[2023-01-29 03:30] VITALS: BP 128/84; PULSE 110; RESP 18; TEMP 36.8; O2SAT 92
[2023-01-29] MEDS: levoFLOXacin 250 MG Tablet PO (05:58)
[2023-01-29] MEDS: Levothyroxine 75 MCG Tablet PO (05:58)
[2023-01-29 06:00] VITALS: BMI 27.5
[2023-01-29 07:58] VITALS: O2SAT 92
--- NOTE | 2023-01-29 08:47 | PCM.PN.HOSP ---
Reason for Visit Reason for Visit: Diagnoses Adult failure to thrive (01/25/23) Subjective Subjective Feels well. No complaints. Ready to go to rehabilitation. Objective Data Objective Data Vital Signs: Vital Signs Temp Pulse Resp BP Pulse Ox O2 Del Method O2 Flow Rate 36.8 C 110 H 18 128/84 H 92 Room Air 2 01/29/23 03:30 01/29/23 03:30 01/29/23 03:30 01/29/23 03:30 01/29/23 03:30 01/29/23 03:49 01/27/23 06:34 FiO2 2 01/25/23 20:27 Oxygen Flow Rate (L/min) 2 Oxygen Delivery Method Room Air Weight: 64 kg Body Mass Index (BMI) 27.5 Intake & Output: Intake and Output for Last 24 Hours 01/27/23 01/28/23 01/29/23 23:59 23:59 23:59 Intake Total 1160 / 1160 440 / 440 220 / 220 Output Total 2150 / 2150 1100 / 1100 200 / 200 Balance -990 / -990 -660 / -660 Lab / Micro Data 01/26/23 04:55 01/26/23 04:55 Micro: Microbiology 01/26/23 00:09 Sputum, Expectorated/Coughed Gram Stain - Final 01/26/23 00:09 Sputum, Expectorated/Coughed Respiratory Culture - Final Staphylococcus aureus Streptococcus pneumoniae 01/25/23 04:50 Mucosa - Nasopharyngeal Coronavirus COVID-19 PCR - Final 01/25/23 04:50 Mucosa - Nasopharyngeal Respiratory Panel (PCR) - Final 01/24/23 22:45 Nasal Secretion SARS-CoV-2 & FLU Antigen (Rapid) - Final Physical Exam Const alert and no apparent distress HEENT head/scalp atraumatic Neuro Sensorium / Orientation: awake and alert Psych affect normal Assessment & Plan Assessment/Plan (1) Adult failure to thrive: PLAN: Plan #1. Frequent mechanical falls with progressive decline, Likely has poor baseline performance status given evidence of chronic vertebral fracture I am concerned about polypharmacy. DC gabapentin. Start wean of lorazepam. Reviewed OARRS and pt takes it QID. Will do 3 times daily as needed for 1 week, then twice daily as needed for 1 week, then daily as needed for 1 week, then every other day as needed and then stop. Given her debility and what appears to be multiple falls, patient high risk with this medication. #2. Chronic COPD w/ noted hypoxia upon presentation, unclear exact etiology: Chest x-ray with no acute cardiopulmonary findings, respiratory rapid viral antigens COVID/influenza negative, will maintain on oxygen with wean as tolerated to room air, continue ATC budesonide, PRN albuterol, HOB, IS parameters. #3. Hypokalemia: Resolved. Admission K+ 3.4, magnesium level requested, supplementation given, repeat level in AM. Chronic conditions: Lumbar disease: CT lumbar spine with chronic L4 vertebral body compression fracture with multilevel lumbar spondylosis with moderate spinal canal and bilateral neuroforaminal stenosis at L3-4, certainly complicates presentation and patient fall risk, will encourage frequent positional changes, PT/OT/case management consulted for discharge planning. Chronic normocytic anemia: Admission hemoglobin 9.1, baseline hemoglobin appears primarily 9-11, will continue to trend. Chronic diastolic CHF: 04/21/2022 echocardiogram with normal LV size, normal LV systolic function, EF 60%, stage II diastolic dysfunction, PASP 50 mmHg with moderate pulmonary hypertension, will continue Plavix, statin, temporally holding hypertensive regimen given low BP in the ED as noted, add back once appropriate. CAD: Status post CABG x 3 and PCI, will continue plavix, atenolol, lisinopril, atorvastatin home regimen. Anxiety and depression: Clarifying as patient has been on significant Ativan regimen to assure this is correct, continue trazodone however if significant sedation will hold given fall history, continue bupropion and citalopram home regimen. Hypertension: Given BP low normal currently in the ED will hold hypertensive regimen and resume once clinically appropriate. Continue to judiciously hydrate as noted. Hyperlipidemia: We will continue patient home statin therapy. History of thyroid cancer status post resection with hypothyroidism: We will continue patient home levothyroxine regimen. History CVA/TIA: We will continue patient home plavix, statin therapy, no diabetic history. Temporarily holding hypertensive regimen given low BP in the ED as noted. Add back once appropriate. History of rectal cancer: Unclear specific interventions previously, poor historian with declining mental capacity, encourage continued outpatient follow-up with oncology and colorectal surgery as previously arranged. Tobacco Abuse: Encouraged cessation, inpatient consultation per RT, NR if desired. DVT prophylaxis: Lovenox. CODE status: DNRCCA. no intubation. Disposition to TCU today. 01/27: Discussed with the patient about the concerns with her falls as well as polypharmacy. She states that she has been on lorazepam for about 30 years. But discussed with her in detail about the physiologic dependence that develops with long-term use of benzodiazepines and informed her that I would not be stopping it imminently but would recommend to taper her off as I am concerned that she may be having adverse reactions such as overly somnolent with the lorazepam as well as gabapentin. So I did do recommend a slow taper over several weeks to off and discontinuing the gabapentin. Without explanation, patient, at least with me, was understanding.
[2023-01-29 09:05] VITALS: BP 135/81; PULSE 83; RESP 16; TEMP 35.8; O2SAT 96
[2023-01-29] MEDS: buPROPion 100 MG Tablet PO (09:15)
[2023-01-29] MEDS: Furosemide 40 MG Tablet PO (09:15)
[2023-01-29] MEDS: Menthol/Lanolin/Calamine/Znox 113 GM Tube 1 APPLIC TOPICAL (09:15)
[2023-01-29] MEDS: Tolterodine Tartrate 2 MG CAP.SA PO (09:15)
[2023-01-29] MEDS: Pantoprazole Sodium 40 MG Tablet PO (09:15)
[2023-01-29] MEDS: Enoxaparin 40 MG/0.4 ML Syringe SC (09:15)
[2023-01-29] MEDS: LORazepam 1 MG Tablet PO (09:15)
[2023-01-29] MEDS: Clopidogrel Bisulfate 75 MG Tablet PO (09:15)
[2023-01-29] MEDS: Citalopram 40 MG TABLET PO (09:15)
--- NOTE | 2023-01-29 10:21 | TREXTCAR_ITS ---
Diet Diet Order/Speech Therapy: 01/25/23 18:07 Diet: Regular - General Type of Dietary Supplement:: Ensure Compact Is pt able to select menu?: Yes Diet Comments: ensure compact w/ breakfast and dinner meals Routine Orders/Code Status Code Status: DNRCC-A (no intubation. ) Therapies Extremity Affected:: Bilateral Lower Physical Therapy: Eval and Treat Occupational Therapy: Eval and Treat Problem/Diagnosis (1) Adult failure to thrive: Status: Acute Code(s): R62.7 - Adult failure to thrive Plan #1. Frequent mechanical falls with progressive decline, * Likely has poor baseline performance status given evidence of chronic vertebral fracture * I am concerned about polypharmacy. DC gabapentin. Start wean of lorazepam. Reviewed OARRS and pt takes it QID. Will do 3 times daily as needed for 1 week, then twice daily as needed for 1 week, then daily as needed for 1 week, then every other day as needed and then stop. Given her debility and what appears to be multiple falls, patient high risk with this medication. #2. Chronic COPD w/ noted hypoxia upon presentation, unclear exact etiology: * Chest x-ray with no acute cardiopulmonary findings, respiratory rapid viral antigens COVID/influenza negative, will maintain on oxygen with wean as tolerated to room air, continue ATC budesonide, PRN albuterol, HOB, IS parameters. #3. Hypokalemia: Resolved. Admission K+ 3.4, magnesium level requested, sup plementation given, repeat level in AM. Chronic conditions: * Lumbar disease: CT lumbar spine with chronic L4 vertebral body compression fracture with multilevel lumbar spondylosis with moderate spinal canal and bilateral neuroforaminal stenosis at L3-4, certainly complicates presentation and patient fall risk, will encourage frequent positional changes, PT/OT/case management consulted for discharge planning. * Chronic normocytic anemia: Admission hemoglobin 9.1, baseline hemoglobin appears primarily 9-11, will continue to trend. * Chronic diastolic CHF: 04/21/2022 echocardiogram with normal LV size, normal LV systolic function, EF 60%, stage II diastolic dysfunction, PASP 50 mmHg with moderate pulmonary hypertension, will continue Plavix, statin, temporally holding hypertensive regimen given low BP in the ED as noted, add back once appropriate. * CAD: Status post CABG x 3 and PCI, will continue plavix, atenolol, lisinopril, atorvastatin home regimen. * Anxiety and depression: Clarifying as patient has been on significant Ativan regimen to assure this is correct, continue trazodone however if significant sedation will hold given fall history, continue bupropion and citalopram home regimen. * Hypertension: Given BP low normal currently in the ED will hold hypertensive regimen and resume once clinically appropriate. Continue to judiciously hydrate as noted. * Hyperlipidemia: We will continue patient home statin therapy. * History of thyroid cancer status post resection with hypothyroidism: We will continue patient home levothyroxine regimen. * History CVA/TIA: We will continue patient home plavix, statin therapy, no diabetic history. Temporarily holding hypertensive regimen given low BP in the ED as noted. Add back once appropriate. * History of rectal cancer: Unclear specific interventions previously, poor historian with declining mental capacity, encourage continued outpatient follow-up with oncology and colorectal surgery as previously arranged. * Tobacco Abuse: Encouraged cessation, inpatient consultation per RT, NR if desired. DVT prophylaxis: Lovenox. CODE status: DNRCCA. no intubation. Disposition to TCU today. 01/27: Discussed with the patient about the concerns with her falls as well as polypharmacy. She states that she has been on lorazepam for about 30 years. But discussed with her in detail about the physiologic dependence that develops with long-term use of benzodiazepines and informed her that I would not be stopping it imminently but would recommend to taper her off as I am concerned that she may be having adverse reactions such as overly somnolent with the lorazepam as well as gabapentin. So I did do recommend a slow taper over several weeks to off and discontinuing the gabapentin. Without explanation, patient, at least with me, was understanding. Allergies/Procedures Done in Hospital Allergies morphine Allergy (Verified 01/24/23 22:00) PT UNSURE Penicillins Allergy (Verified 01/24/23 22:00) Hives tramadol HCl [From Ultram] Allergy (Verified 01/24/23 22:00) PT UNSURE bupropion [From Wellbutrin] Adverse Reaction (Verified 01/24/23 22:00) hallucinations Procedures: None Type of Care/Length of Stay Estimated LOS: Convalescent Care Less Than 30 days Type of Care Needed: Skilled Rehab Potential: Good Prognosis: Good Additional Orders/Day of Discharge Day of Discharge: 01/29/23 Dietary and Speech Recommendations Dietitian Recommendations/Changes: Continue cardiac diet. Will add ensure compact BID w/ breakfast and dinner meals. Additional ONS as needed once PO better established with meals. Discharge Plan Admission Admit Date/Time: 01/25/23 01:50 Primary Reason for Your Visit: Debility Attending Provider: Fernando Malone Primary Care Provider: Zully Rojas Consulting Providers: Cruz Roberts; Christian King Discharge Orders/Prescriptions Prescriptions: New levofloxacin 250 mg Tablet 250 mg PO DAILY@0600 Qty: 5 0RF Continued albuterol sulfate 0.63 mg/3 mL solution for nebulization 0.63 mg INHALATION Q4H PRN (Reason: Congestion) furosemide [Lasix] 20 mg tablet 40 mg PO DAILY Qty: 60 11RF levothyroxine 75 MCG tablet 75 mcg PO DAILY citalopram 40 mg tablet 40 mg PO DAILY atenolol 50 MG tablet 50 mg PO DAILY atorvastatin 40 MG tablet 40 mg PO QHS bupropion HCl 100 MG tablet 100 mg PO DAILY pantoprazole 40 MG tablet 40 mg PO BID oxybutynin chloride 5 mg tablet extended release 24hr 5 mg PO DAILY Patient Comments: Take 1 tablet by mouth once daily. lisinopril 20 mg tablet 20 mg PO DAILY Patient Comments: Take 1 tablet by mouth once daily. clopidogrel 75 mg tablet 75 mg PO QODAY Changed lorazepam 1 MG tablet 1 mg PO TID PRN PRN (Reason: anxiety) 3 Days Qty: 9 0RF Rx Instructions: TID PRN for 5 days, then BID PRN for 7 days, then daily PRN for 7 days, then every other day for 4 doses as needed, then stop. Discontinued gabapentin 100 mg capsule 200 mg PO TID trazodone 100 mg tablet 100 mg PO QHS Patient Comments: TAKE 1 TABLET BY MOUTH EVERY DAY AT BEDTIME amlodipine 10 mg Tablet 10 mg PO DAILY 30 Days Qty: 30 0RF Referrals / Follow Up: Zully Rojas MD [Primary Care Provider] - Within 2 Weeks Disposition Disposition (needs filled in before D/C Order can be placed): [facility]
--- NOTE | 2023-01-29 10:30 | DS.PCM_ITS ---
Providers Date of Admission: 01/25/23 Primary Care Physician: Dr. Zully Rojas MD Reason For Visit: ADULT FTT, HYPOXIA, DIARRHEA Diagnosis Discharge Diagnosis (1) Adult failure to thrive: Status: Acute Code(s): R62.7 - Adult failure to thrive Plan Frequent mechanical falls with progressive decline, * Likely has poor baseline performance status given evidence of chronic vertebral fracture * I am concerned about polypharmacy. DC gabapentin. Start wean of lorazepam. Reviewed OARRS and pt takes it QID. Will do 3 times daily as needed for 1 week, then twice daily as needed for 1 week, then daily as needed for 1 week, then every other day as needed and then stop. Given her debility and what appears to be multiple falls, patient high risk with this medication. Chronic COPD w/ noted hypoxia upon presentation, unclear exact etiology: * Chest x-ray with no acute cardiopulmonary findings, respiratory rapid viral antigens COVID/influenza negative, will maintain on oxygen with wean as tolerated to room air, continue ATC budesonide, PRN albuterol, HOB, IS parameters. Pneumonia * MSSA and streptococcal. * Complete course of levofloxacin. Hypokalemia: Resolved. Admission K+ 3.4, magnesium level requested, supplementation given, repeat level in AM. Chronic conditions: * Lumbar disease: CT lumbar spine with chronic L4 vertebral body compression fracture with multilevel lumbar spondylosis with moderate spinal canal and bilateral neuroforaminal stenosis at L3-4, certainly complicates presentation and patient fall risk, will encourage frequent positional changes, PT/OT/case management consulted for discharge planning. * Chronic normocytic anemia: Admission hemoglobin 9.1, baseline hemoglobin appears primarily 9-11, will continue to trend. * Chronic diastolic CHF: 04/21/2022 echocardiogram with normal LV size, normal LV systolic function, EF 60%, stage II diastolic dysfunction, PASP 50 mmHg with moderate pulmonary hypertension, will continue Plavix, statin, temporally holding hypertensive regimen given low BP in the ED as noted, add back once appropriate. * CAD: Status post CABG x 3 and PCI, will continue plavix, atenolol, lisinopril, atorvastatin home regimen. * Anxiety and depression: Clarifying as patient has been on significant Ativan regimen to assure this is correct, continue trazodone however if significant sedation will hold given fall history, continue bupropion and citalopram home regimen. * Hypertension: Given BP low normal currently in the ED will hold hypertensive regimen and resume once clinically appropriate. Continue to judiciously hydrate as noted. * Hyperlipidemia: We will continue patient home statin therapy. * History of thyroid cancer status post resection with hypothyroidism: We will continue patient home levothyroxine regimen. * History CVA/TIA: We will continue patient home plavix, statin therapy, no diabetic history. Temporarily holding hypertensive regimen given low BP in t he ED as noted. Add back once appropriate. * History of rectal cancer: Unclear specific interventions previously, poor historian with declining mental capacity, encourage continued outpatient follow-up with oncology and colorectal surgery as previously arranged. * Tobacco Abuse: Encouraged cessation, inpatient consultation per RT, NR if desired. DVT prophylaxis: Lovenox. CODE status: DNRCCA. no intubation. Disposition to TCU today. 01/27: Discussed with the patient about the concerns with her falls as well as polypharmacy. She states that she has been on lorazepam for about 30 years. B la discussed with her in detail about the physiologic dependence that develops with long-term use of benzodiazepines and informed her that I would not be stopping it imminently but would recommend to taper her off as I am concerned that she may be having adverse reactions such as overly somnolent with the lorazepam as well as gabapentin. So I did do recommend a slow taper over several weeks to off and discontinuing the gabapentin. Without explanation, patient, at least with me, was understanding. Medications at Discharge Home Medications levothyroxine 75 mcg tablet 75 mcg PO DAILY thyroid 09/06/17 citalopram 40 mg tablet 40 mg PO DAILY depression 12/18/17 atenolol 50 mg tablet 50 mg PO DAILY heart rate 01/05/18 atorvastatin 40 mg tablet 40 mg PO QHS cholesterol 01/05/18 albuterol sulfate 0.63 mg/3 mL solution for nebulization 0.63 mg inhalation Q4H PRN Congestion 07/14/18 bupropion HCl 100 mg tablet 100 mg PO DAILY mood 01/16/19 pantoprazole 40 mg tablet,delayed release 40 mg PO BID gerd 01/16/19 oxybutynin chloride 5 mg tablet,extended release 24 hr 5 mg PO DAILY bladder 10/08/21 lisinopril 20 mg tablet 20 mg PO DAILY BP 04/10/22 clopidogrel 75 mg tablet 75 mg PO QODAY 07/12/22 furosemide 20 mg tablet (Lasix) 40 mg (2 x 20 mg) PO DAILY #60 tabs 12/23/22 levofloxacin 250 mg tablet 250 mg PO DAILY@0600 #5 tabs 01/29/23 lorazepam 1 mg tablet 1 mg PO TID PRN PRN anxiety 3 days #9 tabs 01/29/23 Hospital Course Operations None Procedures None Summary of Care Provided Minutes Spent on Discharge: 35 Hospital Course: Patient presents with recurrent falls. Patient was debilitated. Patient was notably somnolent while she was here. Reviewed her OARRS and she does take lorazepam as well as gabapentin. Given the fact that she did not lorazepam, per her description at 30 years, feels best to taper this off over several weeks. I have initiated a taper of that but also discontinued her gabapentin and trazodone. Patient's mental status is much more alert. Patient was dozing off during encounters before so I do feel that there was a component of polypharmacy I do recommend continuing to hold gabapentin and trazodone and weaning the lorazepam to off. Patient did have lumbar spine x-ray that did show chronic vertebral fractures that suggest the patient has been having falls before. Patient also did have a pneumonia with Streptococcus as well MSSA. Patient will complete a course of levofloxacin. Weight / BMI Weight Weight: 64 kg Body Mass Index (BMI) 27.5 ABG / Lab / Microbiology Data 01/26/23 04:55 01/26/23 04:55 Microbiology: Microbiology 01/26/23 00:09 Sputum, Expectorated/Coughed Gram Stain - Final 01/26/23 00:09 Sputum, Expectorated/Coughed Respiratory Culture - Final Staphylococcus aureus Streptococcus pneumoniae 01/25/23 04:50 Mucosa - Nasopharyngeal Coronavirus COVID-19 PCR - Final 01/25/23 04:50 Mucosa - Nasopharyngeal Respiratory Panel (PCR) - Final 01/24/23 22:45 Nasal Secretion SARS-CoV-2 & FLU Antigen (Rapid) - Final Meaningful Use Info Meaningful Use Diagnoses (Choose all that apply): None applicable Discharge Plan Admission Admit Date/Time: 01/25/23 01:50 Primary Reason for Your Visit: Debility Attending Provider: Fernando Malone Primary Care Provider: Zully Rojas Consulting Providers: Cruz Robertseletsky,Christian Discharge Orders/Prescriptions Prescriptions: New levofloxacin 250 mg Tablet 250 mg PO DAILY@0600 Qty: 5 0RF Continued albuterol sulfate 0.63 mg/3 mL solution for nebulization 0.63 mg INHALATION Q4H PRN (Reason: Congestion) furosemide [Lasix] 20 mg tablet 40 mg PO DAILY Qty: 60 11RF levothyroxine 75 MCG tablet 75 mcg PO DAILY citalopram 40 mg tablet 40 mg PO DAILY atenolol 50 MG tablet 50 mg PO DAILY atorvastatin 40 MG tablet 40 mg PO QHS bupropion HCl 100 MG tablet 100 mg PO DAILY pantoprazole 40 MG tablet 40 mg PO BID oxybutynin chloride 5 mg tablet extended release 24hr 5 mg PO DAILY Patient Comments: Take 1 tablet by mouth once daily. lisinopril 20 mg tablet 20 mg PO DAILY Patient Comments: Take 1 tablet by mouth once daily. clopidogrel 75 mg tablet 75 mg PO QODAY Changed lorazepam 1 MG tablet 1 mg PO TID PRN PRN (Reason: anxiety) 3 Days Qty: 9 0RF Rx Instructions: TID PRN for 5 days, then BID PRN for 7 days, then daily PRN for 7 days, then every other day for 4 doses as needed, then stop. Discontinued gabapentin 100 mg capsule 200 mg PO TID trazodone 100 mg tablet 100 mg PO QHS Patient Comments: TAKE 1 TABLET BY MOUTH EVERY DAY AT BEDTIME amlodipine 10 mg Tablet 10 mg PO DAILY 30 Days Qty: 30 0RF Referrals / Follow Up: Zully Rojas MD [Primary Care Provider] - Within 2 Weeks Disposition Disposition (needs filled in before D/C Order can be placed): Group Home Facility Charges/Coding Visit Charges Inpatient E&M: 75725 Disch Hosp >30min
--- NOTE | 2023-01-29 10:51 | CASEMGMT ---
Patient was approved for TCU and can go today. SW called patient's daughter Shyanne and let her know. LOC also notified RN and patient. Plan: d/c to [facility] TCU under skilled level of care. Fern SHELTON
[2023-01-29] MEDS: Acetaminophen 325 MG Tablet 650 MG PO (11:13)
[2023-01-29 11:50] VITALS: BP 127/73; PULSE 96; RESP 16; TEMP 36.6; O2SAT 95
== END 2023-01-29 13:08 | disposition skilled nursing facility (03) | DRG 641 ==
LOC: ED 01-25 01:58 → PCU 01-25 07:40
PROVIDERS: Internal Medicine; Admitting Provider Family Medicine; Emergency Provider Emergency Medicine; PCP Internal Medicine
DX: R62.7 Adult failure to thrive (principal); J44.0 Chronic obstructive pulmonary disease with (acute) lower respiratory infection; I50.32 Chronic diastolic (congestive) heart failure; I11.0 Hypertensive heart disease with heart failure; D64.9 Anemia, unspecified; F32.A Depression, unspecified; E89.0 Postprocedural hypothyroidism; I25.10 Atherosclerotic heart disease of native coronary artery without angina pectoris; E78.5 Hyperlipidemia, unspecified; E87.6 Hypokalemia; F17.210 Nicotine dependence, cigarettes, uncomplicated; M47.26 Other spondylosis with radiculopathy, lumbar region; M48.061 Spinal stenosis, lumbar region without neurogenic claudication; F41.9 Anxiety disorder, unspecified; I25.2 Old myocardial infarction; G89.29 Other chronic pain; R40.0 Somnolence; T42.6X5A Adverse effect of other antiepileptic and sedative-hypnotic drugs, initial encounter; T42.4X5A Adverse effect of benzodiazepines, initial encounter; R09.02 Hypoxemia; R29.6 Repeated falls; Z66 Do not resuscitate; Z95.1 Presence of aortocoronary bypass graft; Z95.5 Presence of coronary angioplasty implant and graft; Z68.27 Body mass index [BMI] 27.0-27.9, adult; Z79.02 Long term (current) use of antithrombotics/antiplatelets; Z79.899 Other long term (current) drug therapy; Z85.048 Personal history of other malignant neoplasm of rectum, rectosigmoid junction, and anus; Z85.850 Personal history of malignant neoplasm of thyroid; Z86.73 Personal history of transient ischemic attack (TIA), and cerebral infarction without residual deficits
CPT/HCPCS: 36415; 70450; 71045; 72131; 80048; 80053; 80076; 81001; 83690; 83735; 84145; 84484; 85025; 85610; 85730; 87070; 87077; 87186; 87205; 87428; 87633; 87635; 93005; 94640; 94668; 97162; 97166; 97530; 97535; 97802; 99252; 99285; P9612; A4216; G0463

== ENCOUNTER 2023-01-29 13:29 | Inpatient (IN) | payer MEDICARE, SELFPAY ==
[2017-12-28 13:50] VITALS: BMI 29.2
[2023-01-29 13:47] VITALS: BP 134/69; PULSE 110; RESP 18; TEMP 36.6; O2SAT 96; BMI 26.7
[2023-01-29] MEDS: LORazepam 1 MG Tablet PO ×2 (14:38→20:27)
--- NOTE | 2023-01-29 19:32 | HP.PCM_ITS ---
HPI - General General Date of Admission: 01/29/23 Date of Service: 01/29/23 Chief Complaint: Here for rehabilitation. HPI Narrative 01/24/2023 MAURICE WALLACE, is a 77 Female who presents with [facility] ED weakness. Weakness, fall, legs gave out, sitting in chair. Incontinent of stool, urine, chronic shortness of breath, smoker. Low back pain worse, diarrhea, legs weak. Pulsox 88% on RA. Chest X-ray negative, CT brain negative, CT lumbar spine, chronic compression fracture. Unable to care for self at home. 01/25/2023 Admit to Hospital. PT/OT SNF. covid negative, flu negative oxygen, ATC budesonide, albuterol prn for COPD. Replete K. 01/26/2023 Dozing off. Discontinue gabapentin, wean lorazepam for polypharmacy. 01/27/2023 Anxious, missing Lorazepam. Continue to taper Lorazepam. 01/28/2023 No events. Await Pre-CERT for SNF. 01/29/2023 Feels well. 01/29/2023 Admit to TCU with debility, here for rehabilitation, strengthening, prior to discharge home with daughter. [facility] Medical History (Updated 01/29/23 @ 19:[address] Ino Silva MD) Acute leg pain Adult failure to thrive Anemia Anxiety and depression Atherosclerosis of coronary artery bypass graft without angina pectoris Atherosclerosis of coronary artery of [place] heart with angina pectoris Avascular necrosis of bone of left hip Avascular necrosis of femur head, left Back pain Benzodiazepine dependence CAD (coronary artery disease) Carotid artery stenosis Community acquired pneumonia COPD (chronic obstructive pulmonary disease) COPD (chronic obstructive pulmonary disease) CVA (cerebral vascular accident) DDD (degenerative disc disease), lumbar Declining functional status Depression with anxiety Diastolic dysfunction Elevated troponin Essential (primary) hypertension Guaiac positive stools H/O: pneumonia Hemorrhoids, external History of rectal cancer History of thyroid cancer Hyperlipidemia Hypothyroidism Nicotine dependence Non-rheumatic mitral regurgitation Non-rheumatic tricuspid valve insufficiency Non-ST elevation (NSTEMI) myocardial infarction Obstructive sleep apnea Osteoarthritis of left hip Rectal cancer Secondary pulmonary arterial hypertension TIA (transient ischemic attack) TIA (transient ischemic attack) Unable to bear weight on left lower extremity Home Medications levothyroxine 75 mcg tablet 75 mcg PO DAILY thyroid 09/06/17 [History Last Taken 01/29/23] citalopram 40 mg tablet 40 mg PO DAILY depression 12/18/17 [History Last Taken 01/29/23] atenolol 50 mg tablet 50 mg PO DAILY heart rate 01/05/18 [History Last Taken 04/19/22] atorvastatin 40 mg tablet 40 mg PO QHS cholesterol 01/05/18 [History Last Taken 01/28/23] albuterol sulfate 0.63 mg/3 mL solution for nebulization 0.63 mg inhalation Q4H PRN Congestion 07/14/18 [History Last Taken 1 Week Ago ~10/01/21] bupropion HCl 100 mg tablet 100 mg PO DAILY mood 01/16/19 [History Last Taken 01/29/23] pantoprazole 40 mg tablet,delayed release 40 mg PO BID gerd 01/16/19 [History Last Taken 04/19/22] oxybutynin chloride 5 mg tablet,extended release 24 hr 5 mg PO DAILY bladder 10/08/21 [History Last Taken 01/29/23] lisinopril 20 mg tablet 20 mg PO DAILY BP 04/10/22 [History Last Taken 04/19/22] clopidogrel 75 mg tablet 75 mg PO QODAY anti platelet 07/12/22 [History Last Taken 01/29/23] furosemide 20 mg tablet (Lasix) 40 mg (2 x 20 mg) PO DAILY diuretic #60 tabs 12/23/22 [Rx Last Taken 01/29/23] levofloxacin 250 mg tablet 250 mg PO DAILY@0600 antibiotic #5 tabs 01/29/23 [Rx Last Taken 01/29/23] lorazepam 1 mg tablet 1 mg PO TID PRN PRN anxiety 3 days #9 tabs 01/29/23 [Rx Last Taken 01/29/23] Allergy/AdvReac Type Severity Reaction Status Date / Time morphine Allergy PT UNSURE Verified 01/24/23 22:00 Penicillins Allergy Hives Verified 01/24/23 22:00 tramadol HCl [From Ultram] Allergy PT UNSURE Verified 01/24/23 22:00 bupropion [From Wellbutrin] AdvReac hallucinati Verified 01/24/23 22:00 ons Family History Father Heart disease of heart attack at age 64 Mother Cancer of cancer at age 72 CVA (cerebral vascular accident) Surgical History History of appendectomy History of coronary artery bypass graft x 3 (~2007) History of coronary artery stent placement (10/10/21) History of left heart catheterization (10/10/21) Hx of cholecystectomy Hx of thyroidectomy Presence of stent in coronary artery (~10/10/21) Social History (Updated 01/29/23 @ 19:[address] Ino Silva MD) household members: children and other details: Daughter. housing: house Smoking Status: Current every day smoker tobacco type: cigarettes details: Patient denies alcohol use substance use type: does not use ROS Constitutional Constitutional: Denies chills, fever(s) or weight gain ENT HEENT: Denies headache(s), nasal congestion or nasal discharge Cardiovascular Cardiovascular: Denies chest pain or palpitations Respiratory/Chest Respiratory/Chest: Denies cough, excessive phlegm production or shortness of breath with exertion Gastrointestinal Gastrointestinal: Denies abdominal pain, nausea or vomiting Genitourinary Genitourinary: Denies dysuria Musculoskeletal Musculoskeletal: Denies joint pain or joint swelling Integumentary Integumentary: Denies rash or wounds Neurologic Neurologic: Denies focal weakness, numbness or tingling Psychiatric Psychiatric: Denies anxiety, auditory hallucinations, depression, homicidal ideation or suicidal ideation Vital Signs Vital Signs Vital Signs: 01/29/23 13:47 01/29/23 13:47 Temperature 97.8 F Temperature Source Temporal Pulse Rate 110 H Pulse Rhythm Regular Pulse Strength Normal (2+) Respiratory Rate 18 Respiratory Effort Normal Non-Labored Respiratory Depth Normal Respiratory Pattern Normal Blood Pressure 134/69 H Blood Pressure Mean 90 Blood Pressure Source Monitor Blood Pressure Position Sitting Blood Pressure Location Left Arm Pulse Ox 96 Oxygen Delivery Method Room Air Room Air Weight Weight: 62.051 kg Body Mass Index (BMI) 26.7 Physical Exam Const alert General Appearance: cooperative HEENT normocephalic Eyes PERRL and EOMs intact bilaterally Neck supple, no JVD and no carotid bruits Resp normal respiratory effort, normal air movement and clear to auscultation bilaterally Cardio regular rate and regular rhythm GI normal to inspection, nondistended, normoactive bowel sounds, non-tender and non-distended Extremity normal capillary refill General Extremity: Negative for edema Skin no rashes or lesions noted General Skin Exam: no breakdown Psych affect normal Appearance: appropriate Assessment & Plan Assessment/Plan (1) Debility: (2) Adult failure to thrive: (3) Encephalopathy: (4) COPD (chronic obstructive pulmonary disease): (5) Low back pain: (6) CAD (coronary artery disease): (7) Hypothyroidism: (8) Hyperlipidemia: QUALIFIERS: Hyperlipidemia type: pure hypercholesterolemia Qualified Code(s): E78.00 - Pure hypercholesterolemia, unspecified; E78.0 - Pure hypercholesterolemia (9) Depression: (10) GERD (gastroesophageal reflux disease): (11) Neuropathic pain: (12) Overactive bladder: (13) Insomnia: (14) (HFpEF) heart failure with preserved ejection fraction: (15) Pneumonia: PLAN: Plan 77 year old female with below past medical history hospitalized with pneumonia, complicated by weakness, encephalopathy, adult failure to thrive, low back pain, admitted to TCU with debility, here for rehabilitation, strengthening, prior to discharge home with daughter. * Debility - PT/OT. * Pain - Tylenol 1000mg q6 prn pain (1-10). * Bowel - senna/colace 1 tablet bid, Magnesium citrate 300ml daily prn. * Adult immunization - Administer pneumonia vaccine, covid vaccine, flu vaccine as appropriate. * DVT prophylaxis - Monitor. * COPD - Albuterol 2.5mg q4h prn. * Coronary artery disease - Atenolol 50mg daily, Lisinopril 20mg daily, Plavix 75mg daily. * Hyperlipidemia - Atorvastatin 40mg qhs. 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 * Heart failure preserved ejection fraction - Atenolol 50mg daily, Lisinopril 20mg daily, Fuorsemide 40mg daily. * Pneumonia (MSSA, Strep pneumo) - Levaquin 250mg daily thru 01/31/2023. * Hypothyroidism - Levothyroxine 75mcg daily. * Anxiety - Ativan 1mg tid prn. * GERD - Pantoprazole 40mg bid. * Overactive bladder - Tolterodine 2mg daily.
[2023-01-29] MEDS: Acetaminophen 500 MG Tablet 1000 MG PO (20:28)
[2023-01-29] MEDS: Atorvastatin Calcium 40 MG Tablet PO (20:29)
[2023-01-29] MEDS: Senna/Docusate Sodium 1 Tablet PO (20:29)
[2023-01-29] MEDS: Pantoprazole Sodium 40 MG Tablet PO (20:29)
[2023-01-30] MEDS: Levothyroxine 75 MCG Tablet PO (05:38)
[2023-01-30 05:45] LABS: Absolute Lymphocyte Count 1.43 X10^3/uL (0.83-4.51); Basophil# 0.06 X10^3/uL; Basophil% 0.8 % (0-1); Eosinophil# 0.23 X10^3/uL; Eosinophils% 3.1 % (0-5); Hematocrit 32.8 % (37-47); Hemoglobin 9.8 g/dL (12.0-15.0); Lymphocyte # 1.43 X10^3/ul (0.83-4.51); Lymphocyte % 19.1 % (19-41); Mean Corp Hgb Conc 29.9 g/dL (32-36); Mean Corpuscular Hgb 25.5 pg (27.0-32.0); Mean Corpuscular Volume 85.2 fL (81-99); Monocyte# 0.51 X10^3/uL; Monocyte% 6.8 % (0-10); NRBC Flagged by Analyzer 0 % (0-5); Neutrophil # 4.95 X10^3/uL (2.7-7.7); Neutrophil % 66.3 % (47-70); Platelet Count 437 K/mm3 (150-450); RBC Distribution Width CV 16.3 % (11.6-14.6); RBC Distribution Width SD 51.1 fl (35.1-43.9); Red Blood Count 3.85 M/mm3 (4.2-5.4); White Blood Count 7.5 K/mm3 (4.4-11.0)
[2023-01-30] MEDS: levoFLOXacin 250 MG Tablet PO (05:50)
[2023-01-30 06:08] LABS: Anion Gap 4 (5-15); BUN 16 mg/dL (7-18); BUN/Creat Ratio 18.2 RATIO (10-20); Calcium,Total 8.4 mg/dL (8.5-10.1); Chloride 104 mmol/L (98-107); Creatinine, Serum 0.88 mg/dL (0.55-1.02); EST Glomerular Filtration Rate 67 mL/min (>60); Est Glom Filt Rate - Afr Amer 80 mL/min (>60); Estimated Creatinine Clearance 39.68 ml/min; Glucose 108 mg/dL (74-106); Potassium 3.5 mmol/L (3.5-5.1); Sodium Level 140 mmol/L (136-145)
[2023-01-30] MEDS: Furosemide 20 MG Tablet 40 MG PO (08:57)
[2023-01-30] MEDS: Citalopram 40 MG TABLET PO (08:57)
[2023-01-30] MEDS: Tolterodine Tartrate 2 MG CAP.SA PO (08:58)
[2023-01-30] MEDS: Pantoprazole Sodium 40 MG Tablet PO ×2 (08:58→20:55)
[2023-01-30] MEDS: Lisinopril 20 MG Tablet PO (08:59)
[2023-01-30] MEDS: Atenolol 50 MG Tablet PO (08:59)
[2023-01-30] MEDS: buPROPion 100 MG Tablet PO (08:59)
[2023-01-30] MEDS: LORazepam 1 MG Tablet PO ×3 (09:01→21:01)
[2023-01-30 09:05] VITALS: BP 121/65; PULSE 100
[2023-01-30] MEDS: Tuberculin,Purif.prot.deriv. 50 TU/ML Vial 0.100000000000000006 ML ID (09:57)
[2023-01-30 10:00] VITALS: RESP 18; O2SAT 93
[2023-01-30 14:00] VITALS: BP 105/62; PULSE 87; RESP 16; TEMP 36.1; O2SAT 96
[2023-01-30] MEDS: Acetaminophen 500 MG Tablet 1000 MG PO (17:58)
[2023-01-30] MEDS: Atorvastatin Calcium 40 MG Tablet PO (20:55)
[2023-01-31] MEDS: Acetaminophen 500 MG Tablet 1000 MG PO ×2 (00:28→13:00)
[2023-01-31] MEDS: Levothyroxine 75 MCG Tablet PO (05:25)
[2023-01-31] MEDS: levoFLOXacin 250 MG Tablet PO (05:25)
[2023-01-31] MEDS: Furosemide 20 MG Tablet 40 MG PO (08:39)
[2023-01-31] MEDS: Atenolol 50 MG Tablet PO (08:39)
[2023-01-31] MEDS: Pantoprazole Sodium 40 MG Tablet PO ×2 (08:39→21:31)
[2023-01-31] MEDS: Citalopram 40 MG TABLET PO (08:39)
[2023-01-31] MEDS: Clopidogrel Bisulfate 75 MG Tablet PO (08:39)
[2023-01-31] MEDS: Senna/Docusate Sodium 1 Tablet PO (08:39)
[2023-01-31] MEDS: buPROPion 100 MG Tablet PO (08:40)
[2023-01-31] MEDS: LORazepam 1 MG Tablet PO ×2 (08:40→18:26)
[2023-01-31] MEDS: Lisinopril 20 MG Tablet PO (08:40)
[2023-01-31] MEDS: Tolterodine Tartrate 2 MG CAP.SA PO (08:40)
[2023-01-31 08:47] VITALS: BP 113/47; PULSE 65; RESP 18; TEMP 36.2; O2SAT 93
[2023-01-31 14:00] VITALS: BP 131/50; PULSE 66; RESP 14; TEMP 36.1; O2SAT 94
--- NOTE | 2023-01-31 16:11 | NURSING ---
Addendum entered by Katia Collier 01/31/23 18:32: Received callback from Santa, updated on new order. Santa in agreement with plan of care. Addendum entered by Katia Collier 01/31/23 17:21: Attempted to call to update pt's daughter, Santa of new order; left voicemail to return call when possible. Original Note: Patient anxious and requesting medication due to insomnia. Dr. Silva gave new order for Melatonin 10mg at HS.
--- NOTE | 2023-01-31 21:28 | NURSING ---
Pt's daughter, Shyanne, calls earlier this evening questioning if ZHAO has been ordered for . She does not wish to have multiple family members come to unit to visit pt. Shyanne is on list of contacts and informed no order is in place for ZHAO but this nurse will plan top speak to Dr. Silva to obtain an order and pt is only permitted to leave unit for a total of 4 hours. She verbalizes understanding.
--- NOTE | 2023-01-31 21:30 | NURSING ---
Spoke w/ Dr. Silva via phone to request an order for an ZHAO on from 10a-2p per family's request as per previous note. New order received and read back approving ZHAO.
[2023-01-31] MEDS: Atorvastatin Calcium 40 MG Tablet PO (21:31)
[2023-01-31] MEDS: MELATONIN 10 MG TABLET PO (21:31)
[2023-02-01] MEDS: Levothyroxine 75 MCG Tablet PO (05:23)
[2023-02-01] MEDS: LORazepam 1 MG Tablet PO ×3 (05:23→20:21)
[2023-02-01] MEDS: Furosemide 20 MG Tablet 40 MG PO (08:31)
[2023-02-01] MEDS: Pantoprazole Sodium 40 MG Tablet PO ×2 (08:32→20:22)
[2023-02-01] MEDS: Clopidogrel Bisulfate 75 MG Tablet PO (08:32)
[2023-02-01] MEDS: Senna/Docusate Sodium 1 Tablet PO (08:32)
[2023-02-01] MEDS: buPROPion 100 MG Tablet PO (08:32)
[2023-02-01] MEDS: Tolterodine Tartrate 2 MG CAP.SA PO (08:32)
[2023-02-01] MEDS: Lisinopril 20 MG Tablet PO (08:33)
[2023-02-01] MEDS: Citalopram 40 MG TABLET PO (08:33)
[2023-02-01] MEDS: Atenolol 50 MG Tablet PO (08:33)
[2023-02-01 08:54] VITALS: BP 136/74; PULSE 78; RESP 16; O2SAT 97
[2023-02-01] MEDS: Acetaminophen 500 MG Tablet 1000 MG PO ×2 (11:20→20:21)
[2023-02-01 14:00] VITALS: TEMP 36
[2023-02-01 14:20] VITALS: TEMP 36
[2023-02-01] MEDS: Atorvastatin Calcium 40 MG Tablet PO (20:23)
[2023-02-01] MEDS: MELATONIN 10 MG TABLET PO (20:24)
[2023-02-01] MEDS: Menthol/Lanolin/Calamine/Znox 113 GM Tube 1 APPLIC TOPICAL (20:24)
[2023-02-02] MEDS: Levothyroxine 75 MCG Tablet PO (05:26)
[2023-02-02] MEDS: Pantoprazole Sodium 40 MG Tablet PO ×2 (09:09→21:40)
[2023-02-02] MEDS: Atenolol 50 MG Tablet PO (09:09)
[2023-02-02] MEDS: Furosemide 20 MG Tablet 40 MG PO (09:09)
[2023-02-02] MEDS: Citalopram 40 MG TABLET PO (09:10)
[2023-02-02] MEDS: buPROPion 100 MG Tablet PO (09:10)
[2023-02-02] MEDS: Lisinopril 20 MG Tablet PO (09:11)
[2023-02-02] MEDS: LORazepam 1 MG Tablet PO ×2 (09:12→17:34)
[2023-02-02] MEDS: Tolterodine Tartrate 2 MG CAP.SA PO (09:12)
[2023-02-02 09:26] VITALS: BP 137/60; PULSE 79; RESP 16; O2SAT 96
--- NOTE | 2023-02-02 09:55 | NURSING ---
Addendum entered by Katia Collier 02/02/23 16:40: Pt returns to unit with daughterSanta @[id number]. Pt requesting PRN ativan as soon as possible, no other comments/concerns. Addendum entered by Katia Collier 02/02/23 15:26: Pt still ZHAO. Called daughter, Santa, reached voicemail. Attempted callback 5 min later, Santa answers phone We didn't steal her...she had to use the bathroom and it took longer than expected... States they are approximately 15min away. Original Note: Pt leaves unit with daughterSanta @[id number]. Santa states understanding of 4-hr ZHAO and plans to return ~1400.
[2023-02-02 18:01] VITALS: TEMP 36.5
[2023-02-02] MEDS: Acetaminophen 500 MG Tablet 1000 MG PO (18:52)
[2023-02-02] MEDS: Atorvastatin Calcium 40 MG Tablet PO (21:39)
[2023-02-02] MEDS: MELATONIN 10 MG TABLET PO (21:40)
[2023-02-02] MEDS: Senna/Docusate Sodium 1 Tablet PO (21:40)
[2023-02-02] MEDS: Menthol/Lanolin/Calamine/Znox 113 GM Tube 1 APPLIC TOPICAL (21:43)
[2023-02-03] MEDS: Levothyroxine 75 MCG Tablet PO (06:08)
[2023-02-03] MEDS: Furosemide 20 MG Tablet 40 MG PO (09:05)
[2023-02-03] MEDS: Pantoprazole Sodium 40 MG Tablet PO ×2 (09:07→21:07)
[2023-02-03] MEDS: Citalopram 40 MG TABLET PO (09:07)
[2023-02-03] MEDS: Tolterodine Tartrate 2 MG CAP.SA PO (09:07)
[2023-02-03] MEDS: Lisinopril 20 MG Tablet PO (09:08)
[2023-02-03] MEDS: buPROPion 100 MG Tablet PO (09:08)
[2023-02-03] MEDS: Atenolol 50 MG Tablet PO (09:08)
[2023-02-03] MEDS: Menthol/Lanolin/Calamine/Znox 113 GM Tube 1 APPLIC TOPICAL ×2 (09:12→21:08)
[2023-02-03] MEDS: LORazepam 1 MG Tablet PO ×2 (09:16→21:07)
[2023-02-03 09:19] VITALS: BP 122/42; PULSE 61
--- NOTE | 2023-02-03 09:52 | NURSING ---
Patient received Covid-comirnaty vaccine 12/05/22. Discussed with pharmacy who reviewed CDC guidelines and determined patient would not be due for another covid vaccine.
[2023-02-03] MEDS: Acetaminophen 500 MG Tablet 1000 MG PO (11:02)
[2023-02-03 14:00] VITALS: BP 133/62; PULSE 52; RESP 18; TEMP 37.1; O2SAT 95
[2023-02-03 14:14] VITALS: BMI 26.1
--- NOTE | 2023-02-03 16:07 | CASEMGMT ---
Social Work: Met with pt to complete initial assessment. Introduced self and role. Verified contacts and HCPOA. Educated to [facility] insurance benefit and how continued stay is not guaranteed with each review. Plan: Pt's goal is to return home to live with daughter Santa. SW to continue to follow for DC planning. GIANNI Khanna
[2023-02-03] MEDS: MELATONIN 10 MG TABLET PO (21:07)
[2023-02-03] MEDS: Atorvastatin Calcium 40 MG Tablet PO (21:08)
[2023-02-03 22:56] VITALS: O2SAT 95
[2023-02-04] MEDS: Levothyroxine 75 MCG Tablet PO (05:51)
[2023-02-04] MEDS: Menthol/Lanolin/Calamine/Znox 113 GM Tube 1 APPLIC TOPICAL ×2 (09:18→20:30)
--- NOTE | 2023-02-04 09:26 | PCM.PN.DRR ---
Documented by User: Lazara Drew 02/04/23 10:05 TCU RX Drug Regimen Review Subjective/Objective Subjective/Objective: Subjective: TCU Admission. 77 YOF presented to the ER with weakness. Hospitalized with pneumonia, complicated by weakness, encephalopathy, adult failure to thrive, low back pain. Admitted to TCU with debility for strengthening and rehabilitation. Objective: Allergies morphine Allergy (Verified 01/24/23 22:00) PT UNSURE Penicillins Allergy (Verified 01/24/23 22:00) Hives tramadol HCl [From Ultram] Allergy (Verified 01/24/23 22:00) PT UNSURE bupropion [From Wellbutrin] Adverse Reaction (Verified 01/24/23 22:00) hallucinations Current Medications Generic Name Dose Route Start Last Admin Trade Name Freq PRN Reason Stop Dose Admin Acetaminophen 1,000 mg 01/29/23 19:53 02/03/23 11:02 Acetaminophen 500 Mg Tablet PO 1,000 mg Q6H PRN PRN Administration Pain Score 1-10 Albuterol Sulfate 2.5 mg 01/29/23 14:23 Albuterol 2.5 Mg/3 Ml Vial.Neb. INHALATION Q4H PRN Congestion Atenolol 50 mg 01/30/23 10:00 02/03/23 09:08 Atenolol 50 Mg Tablet PO 50 mg DAILY TALI Administration Protocol Atorvastatin Calcium 40 mg 01/29/23 22:00 02/03/23 21:08 Atorvastatin Calcium 40 Mg Tablet PO 40 mg QHS TALI Administration Bupropion HCl 100 mg 01/30/23 10:00 02/03/23 09:08 Bupropion 100 Mg Tablet PO 100 mg DAILY TALI Administration Calamine/Phenol 1 applic 02/01/23 22:00 02/03/23 21:08 Menthol/Lanolin/Calamine/Znox 113 Gm Tube TOPICAL 1 applic BID TALI Administration Protocol Citalopram Hydrobromide 40 mg 01/30/23 10:00 02/03/23 09:07 Citalopram 40 Mg Tablet PO 40 mg DAILY TALI Administration Clopidogrel Bisulfate 75 mg 01/31/23 10:00 02/01/23 08:32 Clopidogrel Bisulfate 75 Mg Tablet PO 75 mg QODAY TALI Administration Furosemide 40 mg 01/30/23 08:00 02/03/23 09:05 Furosemide 20 Mg Tablet PO 40 mg DAILY@0800 TALI Administration Protocol Levothyroxine Sodium 75 mcg 01/30/23 06:00 02/04/23 05:51 Levothyroxine 75 Mcg Tablet PO 75 mcg DAILY@0600 [facility] Administration Lisinopril 20 mg 01/30/23 10:00 02/03/23 09:08 Lisinopril 20 Mg Tablet PO 20 mg DAILY TALI Administration Protocol Lorazepam 1 mg 02/04/23 21:29 Lorazepam 1 Mg Tablet PO 02/10/23 21:30 BID PRN PRN anxiety Lorazepam 1 mg 02/11/23 06:00 Lorazepam 1 Mg Tablet PO 02/17/23 21:01 DAILY PRN PRN anxiety Lorazepam 1 mg 02/18/23 06:00 Lorazepam 1 Mg Tablet PO 02/26/23 06:01 QODAY PRN ANXIETY Magnesium Citrate 300 ml 01/29/23 19:53 Magnesium Citrate 300 Ml PO DAILY PRN Constipation Melatonin 10 mg 01/31/23 22:00 02/03/23 21:07 Melatonin 10 Mg Tablet PO 10 mg QHS TALI Administration Pantoprazole Sodium 40 mg 01/29/23 22:00 02/03/23 21:07 Pantoprazole Sodium 40 Mg Tablet PO 40 mg BID [facility] Administration Senna/Docusate Sodium 1 tablet 01/29/23 22:00 02/03/23 21:13 Senna/Docusate Sodium 1 Tablet PO Not Given BID [facility] Sodium Chloride 10 - 40 ml 01/29/23 14:29 0.9% Saline Lock 10 Ml Syringe IV UD PRN SALINE FLUSH Tolterodine Tartrate 2 mg 01/30/23 10:00 02/03/23 09:07 Tolterodine Tartrate 2 Mg Cap.Sa PO 2 mg DAILY [facility] Administration Tuberculin PPD 0.1 ml 02/06/23 10:00 Tuberculin,Purif.Prot.Deriv. 50 Tu/Ml Vial ID 02/06/23 10:01 X1 ONE Problem List (Updated 01/29/23 @ 19:[address] Ino Silva MD) Pneumonia (Acute) (HFpEF) heart failure with preserved ejection fraction (Acute) Insomnia (Acute) Overactive bladder (Acute) Neuropathic pain (Acute) GERD (gastroesophageal reflux disease) (Acute) Depression (Acute) Hypothyroidism (Acute) CAD (coronary artery disease) (Acute) Low back pain (Acute) Encephalopathy (Acute) Debility (Acute) Adult failure to thrive (Acute) COPD (chronic obstructive pulmonary disease) (Chronic) Hyperlipidemia (Acute) Vital Signs Temp Pulse Resp BP Pulse Ox O2 Del Method 98.7 F 52 L 18 133/62 H 95 Room Air 02/03/23 14:00 02/03/23 14:00 02/03/23 14:00 02/03/23 14:00 02/03/23 22:56 02/04/23 06:26 Oxygen Delivery Method Room Air Weight: 60.645 kg Body Mass Index (BMI) 26.1 Sodium 140 mmol/L (136-145) 01/30/23 05:18 Potassium 3.5 mmol/L (3.5-5.1) 01/30/23 05:18 Chloride 104 mmol/L (98-107) 01/30/23 05:18 Carbon Dioxide 32.0 mmol/L (21.0-32.0) 01/30/23 05:18 Anion Gap 4 (5-15) L 01/30/23 05:18 BUN 16 mg/dL (7-18) 01/30/23 05:18 Creatinine 0.88 mg/dL (0.55-1.02) 01/30/23 05:18 Est GFR (MDRD) Af Amer 80 mL/min (>60) 01/30/23 05:18 Est GFR (MDRD) Non-Af 67 mL/min (>60) 01/30/23 05:18 BUN/Creatinine Ratio 18.2 RATIO (10-20) 01/30/23 05:18 Glucose 108 mg/dL (74-106) H 01/30/23 05:18 Assessment/Plan: 1. Pain: acetaminophen 1000mg PO Q6H PRN pain 1-10. Resident has had 8 doses so far for pain 6-8 in various locations. Please continue to monitor for increased pain and PRN usage. 2. Bowel: senna/docusate 1T PO BID and magnesium citrate 300mL PO daily PRN constipation. Please consider changing senna/docusate to PRN constipation as resident has refused / doses. Thanks. Please continue to monitor PRN usage (no doses given) and constipation. Last documented bowel movement 02/02. 3. CAD/HFpEF: atenolol 50mg PO daily, lisinopril 20mg PO daily, clopidogrel 75mg PO daily and furosemide 40mg PO daily. Please continue to monitor BP (last 133/62), HR (last 52), potassium (last 3.5mmol/L), renal function, S/S of bleeding, hemoglobin (last 9.8g/dL) and swelling. 4. Hyperlipidemia: atorvastatin 40mg PO QHS. Please continue to monitor lipid panel (last 04/16/22), LFTs (last 01/25/23) and muscle pain. 5. COPD: albuterol 2.5mg inhalation Q4H PRN congestion. No doses have been given. Please continue to monitor for congestion and PRN usage. 6. Hypothyroidism: levothyroxine 75mcg PO daily. Please continue to monitor TSH (last 04/16/22), LFTs (last 01/25/23) and muscle pain. 7. GERD: pantoprazole 40mg PO BID. Please continue to monitor for S/S of GERD and diarrhea (BEERs medication). 8. Overactive bladder: tolterodine 2mg PO daily. Please continue to monitor for S/S of overactive bladder and dementia/delirium (BEERs medication). 9. Insomnia (per nursing note): melatonin 10mg PO QHS. Please continue to monitor for insomnia and excessive drowsiness. Assessment/Plan for indications treated with psychotropic medications: 1. Depression: bupropion 100mg PO daily and citalopram 40mg PO daily. Please see physician note regarding GDR. Please continue to monitor for suicidal ideation (black box warning), falls/fractures (BEERs medication) and sodium (last 140mmol/L). 2. Anxiety: lorazepam 1mg PO BID PRN anxiety thru 02/10/23, then daily PRN anxiety 02/11/23-02/17/23 then QODAY PRN anxiety 02/18/23 - 02/26/23. Resident has not had any PRN doses. Please continue GDR. Please continue to monitor for S/S of anxiety and PRN usage. Medical chart and medication regimen reviewed. The following medication irregularities or issues were identified: 1. Senna/docusate 1T PO BID. Please consider changing senna/docusate to PRN constipation as resident has refused 08/19 doses. Thanks. Date Date of Note:: 02/04/23 Documented by User: Dr. Ino Silva MD 02/11/23 07:01 TCU RX Drug Regimen Review Provider Comments Provider responsibility Provider Comments to Recommendations by Pharmacy: Agree
[2023-02-04] MEDS: Pantoprazole Sodium 40 MG Tablet PO ×2 (09:28→20:27)
[2023-02-04] MEDS: Atenolol 50 MG Tablet PO (09:28)
[2023-02-04] MEDS: buPROPion 100 MG Tablet PO (09:28)
[2023-02-04] MEDS: Citalopram 40 MG TABLET PO (09:28)
[2023-02-04] MEDS: Clopidogrel Bisulfate 75 MG Tablet PO (09:28)
[2023-02-04] MEDS: Lisinopril 20 MG Tablet PO (09:28)
[2023-02-04] MEDS: Tolterodine Tartrate 2 MG CAP.SA PO (09:28)
[2023-02-04] MEDS: Furosemide 20 MG Tablet 40 MG PO (09:29)
--- NOTE | 2023-02-04 09:42 | CASEMGMT ---
Social Work IDT met with patient and dtr, Shyanne, for care plan meeting. Discussed patient's progress in PT/OT/ST/SN. Educated to [facility] insurance with NRD 02/12, EDC 02/14. Pt's goal is to return home with dtr. However, pt admitted she is not compliant with following safety directions and does not listen to dtr. IDT recommending 01/09 care, that pt is not to be home alone, at this time. Encouraged any family who would be caring for pt, to attend therapy training. SW will continue to follow for DC planning. Caroline Hermosillo, ALANIS SMITHW
[2023-02-04 09:43] VITALS: BP 110/42; PULSE 55
--- NOTE | 2023-02-04 11:45 | NURSING ---
Mica Builder Note; Activity Asset: hSerman Carrington is independent in her choice of daily activities. Family visit daily and brings her items she may need or want. She has her tablet and smartphone along with watching tv or reading. Charissa welcomes visits from the manager database and therapy dog when available. Staff will continue to remind her of daily activities and respect her right to say no.
--- NOTE | 2023-02-04 12:13 | NURSING ---
PT AND FAMILY UPDATED ON A PT THAT TESTED POSITIVE FOR COVID.
[2023-02-04] MEDS: LORazepam 1 MG Tablet PO ×2 (12:38→20:28)
[2023-02-04 13:16] LABS: Absolute Lymphocyte Count 1.65 X10^3/uL (0.83-4.51); Absolute Neutrophil Count 5.4 X10^3/uL (2.0-7.7); Basophil# 0.03 X10^3/uL; Basophil% 0.4 % (0-1); Eosinophil# 0.13 X10^3/uL; Eosinophils% 1.7 % (0-5); Hematocrit 33.2 % (37-47); Hemoglobin 10.2 g/dL (12.0-15.0); Lymphocyte # 1.65 X10^3/ul (0.83-4.51); Lymphocyte % 21.5 % (19-41); Mean Corp Hgb Conc 30.7 g/dL (32-36); Mean Corpuscular Hgb 25.8 pg (27.0-32.0); Mean Corpuscular Volume 84.1 fL (81-99); Mean Platelet Vol. 8.8 fl (6.2-12.0); Monocyte# 0.42 X10^3/uL; Monocyte% 5.5 % (0-10); NRBC Flagged by Analyzer 0 % (0-5); Neutrophil # 5.39 X10^3/uL (2.7-7.7); Platelet Count 457 K/mm3 (150-450); RBC Distribution Width CV 17.3 % (11.6-14.6); Red Blood Count 3.95 M/mm3 (4.2-5.4); White Blood Count 7.7 K/mm3 (4.4-11.0)
--- NOTE | 2023-02-04 13:34 | NURSING ---
STAFF AND FAMILY NOTIFIED THIS NURSE THAT PT HAS BEEN HAVING A HARD TIME SEEING AND WHEN PT GETS UP TO WALK PT WILL GO IN OPPOSITE DIRECTION AND ASKED WHERE KATYA I GOING?. FAMILY STATED PT STARTED IT ON WHEN LEFT TO GO HOME ON ZHAO. THERAPY DID STATE THAT PT IS BETTER IN THE AFTERNOON. PT IS ALERT AND ORIENTED X3. LEFT NOTE FOR . SEE NEW ORDERS.
[2023-02-04 13:57] LABS: Anion Gap 3 (5-15); BUN 11 mg/dL (7-18); BUN/Creat Ratio 13.2 RATIO (10-20); Calcium,Total 8.5 mg/dL (8.5-10.1); Chloride 104 mmol/L (98-107); Creatinine, Serum 0.84 mg/dL (0.55-1.02); EST Glomerular Filtration Rate 71 mL/min (>60); Est Glom Filt Rate - Afr Amer 85 mL/min (>60); Estimated Creatinine Clearance 41.57 ml/min; Glucose 131 mg/dL (74-106); Potassium 3.3 mmol/L (3.5-5.1); Sodium Level 137 mmol/L (136-145)
[2023-02-04 14:00] VITALS: BP 129/61; PULSE 62; RESP 16; TEMP 36.4; O2SAT 96
[2023-02-04] MEDS: Acetaminophen 500 MG Tablet 1000 MG PO (14:50)
[2023-02-04 15:16] LABS: Bacteria 0 SEEN /hpf (None Seen); Mucous, Urine 0 SEEN /hpf (<or=2+); Red Blood Cells-Urine 0 SEEN /hpf (0-5)
[2023-02-04 15:25] LABS: Color, Urine Yellow (Yellow); Glucose, Dipstick Normal (Normal); Ketone-Dipstick Negative (Negative); Leukocyte Esterase-Dipstick Negative /ul (Negative); Nitrite-Dipstick Negative (Negative); Occult Blood-Urine Negative /ul (Negative); Protein-Dipstick Negative (Negative); Urine Bilirubin Dipstick Negative (Negative); Urine Clarity Clear (Clear); Urine Urobilinogen Normal (Normal)
[2023-02-04 15:52] LABS: Squamous Epithelial Cells - UA 0-5 SEEN /hpf (5-10); White Blood Cells 0-5 SEEN /hpf (0-5)
--- NOTE | 2023-02-04 15:55 | CASEMGMT ---
Social Work BIMS () and PHQ-2 () completed for MDS assessment. ALANIS BanegasW
[2023-02-04] MEDS: Atorvastatin Calcium 40 MG Tablet PO (20:27)
[2023-02-04] MEDS: MELATONIN 10 MG TABLET PO (20:27)
[2023-02-04] MEDS: Miconazole Nitrate 43 GM Bottle 1 APPLIC TOPICAL (20:29)
[2023-02-05] MEDS: Levothyroxine 75 MCG Tablet PO (05:27)
[2023-02-05] MEDS: Furosemide 20 MG Tablet 40 MG PO (08:17)
[2023-02-05] MEDS: LORazepam 1 MG Tablet PO ×2 (08:23→20:49)
[2023-02-05] MEDS: Acetaminophen 500 MG Tablet 1000 MG PO (09:10)
[2023-02-05] MEDS: Pantoprazole Sodium 40 MG Tablet PO ×2 (09:11→20:48)
[2023-02-05] MEDS: Lisinopril 20 MG Tablet PO (09:11)
[2023-02-05] MEDS: buPROPion 100 MG Tablet PO (09:11)
[2023-02-05] MEDS: Citalopram 40 MG TABLET PO (09:11)
[2023-02-05] MEDS: Tolterodine Tartrate 2 MG CAP.SA PO (09:11)
[2023-02-05] MEDS: Atenolol 50 MG Tablet PO (09:11)
[2023-02-05] MEDS: Miconazole Nitrate 43 GM Bottle 1 APPLIC TOPICAL ×2 (09:17→20:50)
[2023-02-05] MEDS: Menthol/Lanolin/Calamine/Znox 113 GM Tube 1 APPLIC TOPICAL ×2 (09:17→20:50)
[2023-02-05 14:00] VITALS: BP 108/48; PULSE 56; RESP 18; TEMP 36.5; O2SAT 95
--- NOTE | 2023-02-05 16:27 | CHAPLAIN ---
Type of Pastoral Visit ___ Initial Visit _x_ Follow-up Visit ___ On-call Visit ___ General Patient Visit ___ Spiritual Assessment ___ Family Conference ___ Bereavement ___ Rapid Response ___ Code Blue ___ Other (describe below) Pastoral Care Referral From _x__ Patient ___ Family ___ Nurse ___ Physician ___ Invasive Cardiovascular Technologist ___ Cash Applications Clerk ___ Other (describe below) Sacrament/Intervention _x__ Active listening ___ Anointing ___ Rastafari ___ Bereavement ___ Communion _x__ Analia exploration ___ ___ Life review _x__ Prayer ___ Reconciliation ___ Sacrament of Sick _x__ Supportive presence ___ Wedding ___ Other (describe below) Pastoral Comments this was a follow up visit to the patient who was seen recently in PCU; pt acknowledges that she is making some improvements and has hope about going home again; pt also speaks of her family and asks for prayers for them; pt then also asks questions about analia and Episcopal; pt wants to have assurance that she is a Yarsani; discussion about analia and prayers for forgiveness; pt indicated that she would welcome a Bible and a Daily Bread devotional which were then brought to her
[2023-02-05] MEDS: Atorvastatin Calcium 40 MG Tablet PO (20:48)
[2023-02-05] MEDS: MELATONIN 10 MG TABLET PO (20:48)
[2023-02-06 06:00] LABS: Absolute Lymphocyte Count 1.85 X10^3/uL (0.83-4.51); Absolute Neutrophil Count 4.1 X10^3/uL (2.0-7.7); Basophil# 0.04 X10^3/uL; Basophil% 0.6 % (0-1); Eosinophil# 0.18 X10^3/uL; Eosinophils% 2.7 % (0-5); Hematocrit 32.6 % (37-47); Lymphocyte # 1.85 X10^3/ul (0.83-4.51); Lymphocyte % 27.6 % (19-41); Mean Corp Hgb Conc 30.7 g/dL (32-36); Mean Corpuscular Volume 84.7 fL (81-99); Monocyte# 0.44 X10^3/uL; Monocyte% 6.6 % (0-10); NRBC Flagged by Analyzer 0 % (0-5); Neutrophil # 4.14 X10^3/uL (2.7-7.7); Neutrophil % 61.8 % (47-70); Platelet Count 405 K/mm3 (150-450); RBC Distribution Width CV 17.4 % (11.6-14.6); RBC Distribution Width SD 52.1 fl (35.1-43.9); Red Blood Count 3.85 M/mm3 (4.2-5.4); White Blood Count 6.7 K/mm3 (4.4-11.0)
[2023-02-06] MEDS: Levothyroxine 75 MCG Tablet PO (06:17)
[2023-02-06 06:46] LABS: Anion Gap 3 (5-15); BUN 8 mg/dL (7-18); BUN/Creat Ratio 10.1 RATIO (10-20); Calcium,Total 8.7 mg/dL (8.5-10.1); Chloride 104 mmol/L (98-107); Creatinine, Serum 0.79 mg/dL (0.55-1.02); EST Glomerular Filtration Rate 75 mL/min (>60); Est Glom Filt Rate - Afr Amer 91 mL/min (>60); Estimated Creatinine Clearance 34.91 ml/min; Glucose 99 mg/dL (74-106); Sodium Level 139 mmol/L (136-145)
[2023-02-06] MEDS: Furosemide 20 MG Tablet 40 MG PO (08:30)
[2023-02-06] MEDS: Citalopram 40 MG TABLET PO (08:31)
[2023-02-06] MEDS: Menthol/Lanolin/Calamine/Znox 113 GM Tube 1 APPLIC TOPICAL ×2 (08:31→21:28)
[2023-02-06] MEDS: Tolterodine Tartrate 2 MG CAP.SA PO (08:32)
[2023-02-06] MEDS: Miconazole Nitrate 43 GM Bottle 1 APPLIC TOPICAL ×2 (08:32→21:24)
[2023-02-06] MEDS: Clopidogrel Bisulfate 75 MG Tablet PO (08:32)
[2023-02-06] MEDS: Pantoprazole Sodium 40 MG Tablet PO ×2 (08:32→21:21)
[2023-02-06] MEDS: Senna/Docusate Sodium 1 Tablet PO (08:33)
[2023-02-06] MEDS: buPROPion 100 MG Tablet PO (08:34)
[2023-02-06] MEDS: Lisinopril 20 MG Tablet PO (08:34)
--- NOTE | 2023-02-06 09:02 | NURSING ---
Associate Scientist note; MDS for 02/05/2023 Complete
[2023-02-06] MEDS: LORazepam 1 MG Tablet PO ×2 (10:01→21:22)
[2023-02-06] MEDS: Acetaminophen 500 MG Tablet 1000 MG PO (11:05)
[2023-02-06] MEDS: Tuberculin,Purif.prot.deriv. 50 TU/ML Vial 0.100000000000000006 ML ID (11:06)
[2023-02-06] MEDS: Potassium Chloride Oral Tablet 20 MEQ PO ×3 (11:06→17:24)
[2023-02-06 13:31] VITALS: BP 104/48; PULSE 69; RESP 16; TEMP 36.2; O2SAT 97
[2023-02-06] MEDS: MELATONIN 10 MG TABLET PO (21:21)
[2023-02-06] MEDS: Atorvastatin Calcium 40 MG Tablet PO (21:21)
[2023-02-07] MEDS: Levothyroxine 75 MCG Tablet PO (05:38)
[2023-02-07] MEDS: Furosemide 20 MG Tablet 40 MG PO (08:33)
[2023-02-07] MEDS: Potassium Chloride Oral Tablet 20 MEQ PO (08:33)
[2023-02-07] MEDS: Senna/Docusate Sodium 1 Tablet PO (08:34)
[2023-02-07] MEDS: Pantoprazole Sodium 40 MG Tablet PO ×2 (08:34→21:18)
[2023-02-07] MEDS: buPROPion 100 MG Tablet PO (08:34)
[2023-02-07] MEDS: Lisinopril 20 MG Tablet PO (08:34)
[2023-02-07] MEDS: Tolterodine Tartrate 2 MG CAP.SA PO (08:34)
[2023-02-07] MEDS: Atenolol 50 MG Tablet PO (08:34)
[2023-02-07] MEDS: Citalopram 40 MG TABLET PO (08:34)
[2023-02-07] MEDS: Menthol/Lanolin/Calamine/Znox 113 GM Tube 1 APPLIC TOPICAL ×2 (08:35→21:18)
[2023-02-07] MEDS: Miconazole Nitrate 43 GM Bottle 1 APPLIC TOPICAL ×2 (08:35→21:19)
[2023-02-07 08:40] VITALS: BP 120/44; PULSE 67
[2023-02-07 09:08] LABS: Potassium 3.7 mmol/L (3.5-5.1)
[2023-02-07 10:00] VITALS: PULSE 68; O2SAT 97
[2023-02-07] MEDS: Acetaminophen 500 MG Tablet 1000 MG PO ×2 (13:32→22:41)
[2023-02-07 14:00] VITALS: BP 143/50; PULSE 51; RESP 20; TEMP 36.9; O2SAT 92
[2023-02-07] MEDS: Atorvastatin Calcium 40 MG Tablet PO (21:18)
[2023-02-07] MEDS: MELATONIN 10 MG TABLET PO (21:18)
[2023-02-07] MEDS: LORazepam 1 MG Tablet PO (23:28)
[2023-02-08] MEDS: Levothyroxine 75 MCG Tablet PO (05:51)
[2023-02-08] MEDS: Miconazole Nitrate 43 GM Bottle 1 APPLIC TOPICAL ×2 (08:27→20:43)
[2023-02-08] MEDS: Menthol/Lanolin/Calamine/Znox 113 GM Tube 1 APPLIC TOPICAL ×2 (08:27→20:43)
[2023-02-08] MEDS: Furosemide 20 MG Tablet 40 MG PO (08:28)
[2023-02-08] MEDS: Citalopram 40 MG TABLET PO (08:28)
[2023-02-08] MEDS: Potassium Chloride Oral Tablet 20 MEQ PO (08:28)
[2023-02-08] MEDS: Tolterodine Tartrate 2 MG CAP.SA PO (08:28)
[2023-02-08] MEDS: Clopidogrel Bisulfate 75 MG Tablet PO (08:29)
[2023-02-08] MEDS: buPROPion 100 MG Tablet PO (08:29)
[2023-02-08] MEDS: Senna/Docusate Sodium 1 Tablet PO (08:29)
[2023-02-08] MEDS: Pantoprazole Sodium 40 MG Tablet PO ×2 (08:29→20:42)
[2023-02-08] MEDS: Atenolol 50 MG Tablet PO (08:29)
[2023-02-08] MEDS: Lisinopril 20 MG Tablet PO (08:29)
[2023-02-08 08:34] VITALS: BP 114/48; PULSE 67
[2023-02-08 10:00] VITALS: PULSE 60; O2SAT 92
[2023-02-08] MEDS: Acetaminophen 500 MG Tablet 1000 MG PO ×2 (10:05→20:42)
[2023-02-08 14:00] VITALS: BP 104/58; PULSE 61; RESP 16; TEMP 36.6; O2SAT 96
[2023-02-08] MEDS: LORazepam 1 MG Tablet PO (16:43)
[2023-02-08] MEDS: Atorvastatin Calcium 40 MG Tablet PO (20:41)
[2023-02-08] MEDS: MELATONIN 10 MG TABLET PO (20:42)
[2023-02-09] MEDS: Levothyroxine 75 MCG Tablet PO (06:07)
[2023-02-09] MEDS: Miconazole Nitrate 43 GM Bottle 1 APPLIC TOPICAL ×2 (09:48→21:25)
[2023-02-09] MEDS: Menthol/Lanolin/Calamine/Znox 113 GM Tube 1 APPLIC TOPICAL ×2 (09:48→21:25)
[2023-02-09] MEDS: Senna/Docusate Sodium 1 Tablet PO (09:51)
[2023-02-09] MEDS: Potassium Chloride Oral Tablet 20 MEQ PO (09:51)
[2023-02-09] MEDS: Pantoprazole Sodium 40 MG Tablet PO ×2 (09:52→21:24)
[2023-02-09] MEDS: buPROPion 100 MG Tablet PO (09:53)
[2023-02-09] MEDS: Citalopram 40 MG TABLET PO (09:53)
[2023-02-09] MEDS: Tolterodine Tartrate 2 MG CAP.SA PO (09:53)
[2023-02-09] MEDS: Atenolol 50 MG Tablet PO (10:00)
[2023-02-09] MEDS: Furosemide 20 MG Tablet 40 MG PO (10:00)
[2023-02-09] MEDS: Lisinopril 20 MG Tablet PO (10:00)
[2023-02-09 10:06] VITALS: BP 120/48; PULSE 62
[2023-02-09] MEDS: LORazepam 1 MG Tablet PO ×2 (10:11→21:24)
[2023-02-09 13:25] VITALS: BP 119/49; PULSE 60; RESP 16; TEMP 36.6; O2SAT 95
[2023-02-09 19:35] VITALS: PULSE 64; RESP 14; O2SAT 94
[2023-02-09] MEDS: Acetaminophen 500 MG Tablet 1000 MG PO (21:24)
[2023-02-09] MEDS: MELATONIN 10 MG TABLET PO (21:24)
[2023-02-09] MEDS: Atorvastatin Calcium 40 MG Tablet PO (21:24)
[2023-02-10] MEDS: Levothyroxine 75 MCG Tablet PO (05:43)
[2023-02-10 06:52] VITALS: PULSE 61; RESP 16; O2SAT 93
[2023-02-10] MEDS: Potassium Chloride Oral Tablet 20 MEQ PO (08:16)
[2023-02-10] MEDS: Furosemide 20 MG Tablet 40 MG PO (08:17)
[2023-02-10] MEDS: buPROPion 100 MG Tablet PO (08:17)
[2023-02-10] MEDS: Pantoprazole Sodium 40 MG Tablet PO ×2 (08:17→20:46)
[2023-02-10] MEDS: Citalopram 40 MG TABLET PO (08:17)
[2023-02-10] MEDS: Lisinopril 20 MG Tablet PO (08:17)
[2023-02-10] MEDS: Atenolol 50 MG Tablet PO (08:17)
[2023-02-10] MEDS: Clopidogrel Bisulfate 75 MG Tablet PO (08:18)
[2023-02-10] MEDS: Tolterodine Tartrate 2 MG CAP.SA PO (08:18)
[2023-02-10] MEDS: Menthol/Lanolin/Calamine/Znox 113 GM Tube 1 APPLIC TOPICAL ×2 (08:24→20:47)
[2023-02-10] MEDS: Miconazole Nitrate 43 GM Bottle 1 APPLIC TOPICAL ×2 (08:25→20:47)
[2023-02-10 09:10] VITALS: BMI 25.4
[2023-02-10 13:34] VITALS: BP 106/53; PULSE 66; RESP 16; TEMP 36.3; O2SAT 94
[2023-02-10] MEDS: Acetaminophen 500 MG Tablet 1000 MG PO (14:14)
--- NOTE | 2023-02-10 14:18 | MDS.RN ---
Information for the mds was obtained from review of the clinical record, interview of resident, staff, and direct observation of resident's care.
[2023-02-10] MEDS: LORazepam 1 MG Tablet PO (15:53)
[2023-02-10] MEDS: MELATONIN 10 MG TABLET PO (20:46)
[2023-02-10] MEDS: Atorvastatin Calcium 40 MG Tablet PO (20:46)
[2023-02-11] MEDS: Levothyroxine 75 MCG Tablet PO (05:25)
[2023-02-11] MEDS: Furosemide 20 MG Tablet 40 MG PO (08:01)
[2023-02-11] MEDS: Potassium Chloride Oral Tablet 20 MEQ PO (08:01)
[2023-02-11] MEDS: Citalopram 40 MG TABLET PO (10:14)
[2023-02-11] MEDS: Pantoprazole Sodium 40 MG Tablet PO ×2 (10:15→21:43)
[2023-02-11] MEDS: Tolterodine Tartrate 2 MG CAP.SA PO (10:15)
[2023-02-11] MEDS: buPROPion 100 MG Tablet PO (10:15)
[2023-02-11] MEDS: Menthol/Lanolin/Calamine/Znox 113 GM Tube 1 APPLIC TOPICAL ×2 (10:18→21:43)
[2023-02-11] MEDS: Miconazole Nitrate 43 GM Bottle 1 APPLIC TOPICAL ×2 (10:19→21:44)
--- NOTE | 2023-02-11 13:23 | NURSING ---
BP low this morning, Dr. Silva updated n.o. hold am blood pressure medications
[2023-02-11 14:00] VITALS: BP 128/44; PULSE 64; RESP 18; TEMP 36.6; O2SAT 94
[2023-02-11] MEDS: LORazepam 1 MG Tablet PO (17:40)
[2023-02-11 20:25] VITALS: PULSE 68; RESP 16; O2SAT 93
[2023-02-11] MEDS: Atorvastatin Calcium 40 MG Tablet PO (21:43)
[2023-02-11] MEDS: MELATONIN 10 MG TABLET PO (21:43)
[2023-02-11] MEDS: Acetaminophen 500 MG Tablet 1000 MG PO (21:46)
[2023-02-12] MEDS: Levothyroxine 75 MCG Tablet PO (05:32)
[2023-02-12 05:45] VITALS: PULSE 62; RESP 18; O2SAT 92
[2023-02-12] MEDS: Citalopram 40 MG TABLET PO (08:38)
[2023-02-12] MEDS: buPROPion 100 MG Tablet PO (08:38)
[2023-02-12] MEDS: Furosemide 20 MG Tablet 40 MG PO (08:38)
[2023-02-12] MEDS: Potassium Chloride Oral Tablet 20 MEQ PO (08:38)
[2023-02-12] MEDS: Tolterodine Tartrate 2 MG CAP.SA PO (08:39)
[2023-02-12] MEDS: Pantoprazole Sodium 40 MG Tablet PO ×2 (08:39→20:48)
[2023-02-12] MEDS: Atenolol 50 MG Tablet PO (08:39)
[2023-02-12] MEDS: Lisinopril 20 MG Tablet PO (08:39)
[2023-02-12] MEDS: Clopidogrel Bisulfate 75 MG Tablet PO (08:39)
[2023-02-12 08:43] VITALS: BP 118/62; PULSE 68; RESP 16; O2SAT 96
[2023-02-12] MEDS: Miconazole Nitrate 43 GM Bottle 1 APPLIC TOPICAL ×2 (08:46→20:47)
[2023-02-12] MEDS: Menthol/Lanolin/Calamine/Znox 113 GM Tube 1 APPLIC TOPICAL ×2 (08:46→20:47)
[2023-02-12 13:23] VITALS: TEMP 36.1
--- NOTE | 2023-02-12 16:12 | CASEMGMT ---
Addendum entered by Caroline Hermosillo 02/16/23 08:41: Adding SN to HHC order. [facility] updated. Original Note: Social Work Insurance issued LCD 02/14, DC 02/15. SW spoke with pt to update on DC date. Pt requesting to DC 02/14. SW to speak with dtr to confirm, but IDT is agreeable. Recommending C PT/OT/ST - pt agreeable and has no preference on agency. Pt is requesting a FWW. SW to coordinate. SW phoned dtrSanta, to update. Dtr is agreeable to DC 02/14, HHC and FWW. SW offered to provided list of skilled [facility] agencies with quality and resource data via [employer] guide, but dtr denied, has no preference, agreeable to [facility]. Dtr to transport. SW phoned [facility] for PT/OT/ST Sent referral to [facility] via [employer] for FWW. BIMS () and PHQ-2 () completed for MDS assessment. Plan: DC home with dtr 02/14, [facility] PT/OT/ST, FWW Caroline Hermosillo, [employer] IN[employer]IGENCE SUPERINTENDENT HEALTH ANALYTICS CONSULTANT
[2023-02-12] MEDS: LORazepam 1 MG Tablet PO (18:37)
--- NOTE | 2023-02-12 19:24 | PCM.DC.SUM ---
Providers Date of Admission: 01/29/23 Primary Care Physician: Dr. Zully Rojas MD Reason For Visit: FTT, HYPOXIA, DIARRHEA Diagnosis Discharge Diagnosis (1) Debility: Status: Acute Code(s): R53.81 - Other malaise (2) Adult failure to thrive: Status: Resolved Code(s): R62.7 - Adult failure to thrive (3) Encephalopathy: Status: Acute Code(s): G93.40 - Encephalopathy, unspecified (4) COPD (chronic obstructive pulmonary disease): Status: Inactive Code(s): J44.9 - Chronic obstructive pulmonary disease, unspecified (5) Low back pain: Status: Acute Code(s): M54.50 - Low back pain, unspecified (6) CAD (coronary artery disease): Status: Acute Code(s): I25.10 - Atherosclerotic heart disease of [place] coronary artery without angina pectoris (7) Hypothyroidism: Status: Acute Code(s): E03.9 - Hypothyroidism, unspecified (8) Hyperlipidemia: Status: Acute Code(s): E78.5 - Hyperlipidemia, unspecified Qualifiers: Hyperlipidemia type: pure hypercholesterolemia Qualified Code(s): E78.00 - Pure hypercholesterolemia, unspecified; E78.0 - Pure hypercholesterolemia (9) Depression: Status: Acute Code(s): F32.A - Depression, unspecified (10) GERD (gastroesophageal reflux disease): Status: Acute Code(s): K21.9 - Gastro-esophageal reflux disease without esophagitis (11) Neuropathic pain: Status: Acute Code(s): M79.2 - Neuralgia and neuritis, unspecified (12) Overactive bladder: Status: Acute Code(s): N32.81 - Overactive bladder (13) Insomnia: Status: Acute Code(s): G47.00 - Insomnia, unspecified (14) (HFpEF) heart failure with preserved ejection fraction: Status: Acute Code(s): I50.30 - Unspecified diastolic (congestive) heart failure (15) Pneumonia: Status: Acute Code(s): J18.9 - Pneumonia, unspecified organism Plan 77 year old female with below past medical history hospitalized with pneumonia, complicated by weakness, encephalopathy, adult failure to thrive, low back pain, admitted to TCU with debility, here for rehabilitation, strengthening, prior to discharge home with daughter. Debility - PT/OT. Pain - Tylenol 1000mg q6 prn pain (1-10). Bowel - senna/colace 1 tablet bid, Magnesium citrate 300ml daily prn. Adult immunization - Administer pneumonia vaccine, covid vaccine, flu vaccine as appropriate. DVT prophylaxis - Monitor. COPD - Albuterol 2.5mg q4h prn. Coronary artery disease - Atenolol 50mg daily, Lisinopril 20mg daily, Plavix 75mg daily. Hyperlipidemia - Atorvastatin 40mg qhs. Depression - Bupropion 100mg daily, Citalopram 40mg daily, stable chronic halfway use, GDR not recommended. Heart failure preserved ejection fraction - Atenolol 50mg daily, Lisinopril 20mg daily, Fuorsemide 40mg daily. Pneumonia (MSSA, Strep pneumo) - Levaquin 250mg daily thru 01/31/2023. Hypothyroidism - Levothyroxine 75mcg daily. Anxiety - Ativan 1mg tid prn. GERD - Pantoprazole 40mg bid. Overactive bladder - Tolterodine 2mg daily. Medications at Discharge Home Medications levothyroxine 75 mcg tablet 75 mcg PO DAILY thyroid 09/06/17 citalopram 40 mg tablet 40 mg PO DAILY depression 12/18/17 atenolol 50 mg tablet 50 mg PO DAILY heart rate 01/05/18 atorvastatin 40 mg tablet 40 mg PO QHS cholesterol 01/05/18 albuterol sulfate 0.63 mg/3 mL solution for nebulization 0.63 mg inhalation Q4H PRN Congestion 07/14/18 bupropion HCl 100 mg tablet 100 mg PO DAILY mood 01/16/19 pantoprazole 40 mg tablet,delayed release 40 mg PO BID gerd 01/16/19 oxybutynin chloride 5 mg tablet,extended release 24 hr 5 mg PO DAILY bladder 10/08/21 lisinopril 20 mg tablet 20 mg PO DAILY BP 04/10/22 clopidogrel 75 mg tablet 75 mg PO QODAY anti platelet 07/12/22 furosemide 20 mg tablet (Lasix) 40 mg (2 x 20 mg) PO DAILY diuretic #60 tabs 12/23/22 acetaminophen 500 mg tablet 1,000 mg (2 x 500 mg) PO Q6H PRN PRN Pain Score 1-10 #0 tabs 02/12/23 lorazepam 1 mg tablet 1 mg PO DAILY PRN PRN anxiety #0 tabs 02/12/23 melatonin 10 mg sublingual tablet 10 mg PO QHS #0 tabs 02/12/23 potassium chloride 20 mEq tablet,extended release(part/cryst) 20 meq PO DAILYCM 30 days #30 tabs 02/12/23 Hospital Course Operations None Procedures None Summary of Care Provided Minutes Spent on Discharge: 35 Hospital Course: 77 year old female with below past medical history hospitalized with pneumonia, complicated by weakness, encephalopathy, adult failure to thrive, low back pain, admitted to TCU with debility, here for rehabilitation, strengthening, prior to discharge home with daughter. Discharge home with daughter 02/14/2023, [facility] PT/OT/ST, FWW. Front Wheeled Walker: Patient is unsafe to use a cane and requires a walker for ambulation in the home and the community. Physical Exam Const alert General Appearance: cooperative HEENT normocephalic Eyes PERRL and EOMs intact bilaterally Neck supple, no JVD and no carotid bruits Resp normal respiratory effort, normal air movement and clear to auscultation bilaterally Cardio regular rate and regular rhythm GI normal to inspection, nondistended, normoactive bowel sounds, non-tender and non-distended Extremity normal capillary refill General Extremity: Negative for edema Skin no rashes or lesions noted General Skin Exam: no breakdown Psych affect normal Appearance: appropriate Medical Records Data Medical Nutrition Assessment Dietitian: Malnutrition Criteria Met Start: 01/30/23 13:00 Freq: Status: Active Protocol: Document 02/11/23 13:42 SLA (Rec: 02/11/23 13:42 SLA Desktop) Nutrition Malnutrition Evidence of Malnutrition Exists Yes Malnutrition (moderate): Acute Illness/Injury Malnutrition (unspecified) Severe pro/carlita Evidenced By Suboptimal Energy Intake ( Severe),Weight Loss (Severe) Clinical Problem Acute Disease or Injury Related Malnutrition Etiology severe malnutrition related to acute illness and inadequate energy intake Signs/Symptoms as evidenced by 2.8% weight loss x 1 week and meal intake ~ Refusals - <75% since adm. Status Active Problem Recommendation Dietitian Recommendations/Changes Continue Regular diet; Continue to provide ensure compact w/ meals tid Continue to provide oatmeal w/ brown sugar and one pancake w / each breakfast per res request Rec appetite stimulant to help encourage increased po intake Weight / BMI Weight Weight: 58.967 kg Body Mass Index (BMI) 25.4 ABG / Lab / Microbiology Data 02/06/23 05:22 02/07/23 08:27 Microbiology: Microbiology 02/10/23 05:40 Nasal Secretion SARS-CoV-2 Antigen (Rapid) - Final 02/04/23 15:05 Urine Catheter - Catheter Urine Culture - Final Culture exhibits no growth. 02/04/23 12:15 Nasal Secretion SARS-CoV-2 Antigen (Rapid) - Final D/C Instructions Discharge Diet: No restrictions Discharge Activity: Return to Normal Activity, May Shower and Use Walker Weight Bearing Status: Weight bearing as tolerated Call your doctor if you observe: Fever of 101 or Higher, Inability to urinate, Inability to have a bowel movement, Shortness of breath, Dizziness, Fainting spells, Swelling in the ankles, Chest pain and Uncontrolled pain Additional Instructions: Discharge home with daughter 02/14/2023, [facility] PT/OT/ST, FWW. Front Wheeled Walker: Patient is unsafe to use a cane and requires a walker for ambulation in the home and the community. Meaningful Use Info Meaningful Use Diagnoses (Choose all that apply): None applicable Discharge Plan Admission Admit Date/Time: 01/29/23 13:29 Primary Reason for Your Visit: Debility. Attending Provider: Ino Silva Chi Primary Care Provider: Zully Rojas Instructions Additional Instructions / Restrictions: Discharge home with daughter 02/14/2023, [facility] PT/OT/ST, FWW. Front Wheeled Walker: Patient is unsafe to use a cane and requires a walker for ambulation in the home and the community. Discharge Orders/Prescriptions Prescriptions: New acetaminophen 500 mg Tablet 1,000 mg PO Q6H PRN PRN (Reason: Pain Score 1-10) Qty: 0 0RF lorazepam 1 mg Tablet 1 mg PO DAILY PRN PRN (Reason: anxiety) Qty: 0 0RF melatonin 10 mg Tablet, Sublingual 10 mg PO QHS Qty: 0 0RF potassium chloride 20 mEq Tablet,Er Particles/Crystals 20 meq PO DAILYCM 30 Days Qty: 30 0RF Continued albuterol sulfate 0.63 mg/3 mL solution for nebulization 0.63 mg INHALATION Q4H PRN (Reason: Congestion) furosemide [Lasix] 20 mg tablet 40 mg PO DAILY Qty: 60 11RF levothyroxine 75 MCG tablet 75 mcg PO DAILY citalopram 40 mg tablet 40 mg PO DAILY atenolol 50 MG tablet 50 mg PO DAILY atorvastatin 40 MG tablet 40 mg PO QHS bupropion HCl 100 MG tablet 100 mg PO DAILY pantoprazole 40 MG tablet 40 mg PO BID oxybutynin chloride 5 mg tablet extended release 24hr 5 mg PO DAILY Patient Comments: Take 1 tablet by mouth once daily. lisinopril 20 mg tablet 20 mg PO DAILY Patient Comments: Take 1 tablet by mouth once daily. clopidogrel 75 mg tablet 75 mg PO QODAY Discontinued levofloxacin 250 mg Tablet 250 mg PO DAILY@0600 Qty: 5 0RF lorazepam 1 MG tablet 1 mg PO TID PRN PRN (Reason: anxiety) 3 Days Qty: 9 0RF Rx Instructions: TID PRN for 5 days, then BID PRN for 7 days, then daily PRN for 7 days, then every other day for 4 doses as needed, then stop. Referrals / Follow Up: Zully Rojas MD [Primary Care Provider] - 02/18/23 10:30 am (Will see MARYJANE Weber. (Dr. Rojas not available til Mar, so she will be seen on 02/18 with the PA)) Disposition Disposition (needs filled in before D/C Order can be placed): Home Health Service
[2023-02-12] MEDS: MELATONIN 10 MG TABLET PO (20:48)
[2023-02-12] MEDS: Atorvastatin Calcium 40 MG Tablet PO (20:48)
[2023-02-13] MEDS: LORazepam 1 MG Tablet PO (03:53)
[2023-02-13] MEDS: Levothyroxine 75 MCG Tablet PO (05:25)
[2023-02-13 05:46] LABS: Absolute Lymphocyte Count 1.59 X10^3/uL (0.83-4.51); Absolute Neutrophil Count 3.8 X10^3/uL (2.0-7.7); Basophil# 0.04 X10^3/uL; Basophil% 0.6 % (0-1); Eosinophil# 0.19 X10^3/uL; Eosinophils% 3.1 % (0-5); Hematocrit 34.6 % (37-47); Hemoglobin 10.6 g/dL (12.0-15.0); Lymphocyte # 1.59 X10^3/ul (0.83-4.51); Lymphocyte % 25.7 % (19-41); Mean Corp Hgb Conc 30.6 g/dL (32-36); Mean Corpuscular Hgb 26.4 pg (27.0-32.0); Mean Corpuscular Volume 86.3 fL (81-99); Mean Platelet Vol. 10.3 fl (6.2-12.0); Monocyte# 0.51 X10^3/uL; Monocyte% 8.3 % (0-10); NRBC Flagged by Analyzer 0 % (0-5); Neutrophil # 3.82 X10^3/uL (2.7-7.7); Neutrophil % 61.8 % (47-70); Platelet Count 251 K/mm3 (150-450); RBC Distribution Width CV 18.2 % (11.6-14.6); Red Blood Count 4.01 M/mm3 (4.2-5.4); White Blood Count 6.2 K/mm3 (4.4-11.0)
[2023-02-13 06:11] LABS: Anion Gap 5 (5-15); BUN 14 mg/dL (7-18); BUN/Creat Ratio 14.9 RATIO (10-20); Calcium,Total 8.4 mg/dL (8.5-10.1); Chloride 103 mmol/L (98-107); Creatinine, Serum 0.94 mg/dL (0.55-1.02); EST Glomerular Filtration Rate 62 mL/min (>60); Est Glom Filt Rate - Afr Amer 75 mL/min (>60); Estimated Creatinine Clearance 37.14 ml/min; Glucose 103 mg/dL (74-106); Potassium 3.7 mmol/L (3.5-5.1); Sodium Level 139 mmol/L (136-145)
[2023-02-13] MEDS: Furosemide 20 MG Tablet 40 MG PO (09:39)
[2023-02-13] MEDS: Citalopram 40 MG TABLET PO (09:40)
[2023-02-13] MEDS: Atenolol 50 MG Tablet PO (09:40)
[2023-02-13] MEDS: Pantoprazole Sodium 40 MG Tablet PO ×2 (09:40→21:46)
[2023-02-13] MEDS: buPROPion 100 MG Tablet PO (09:40)
[2023-02-13] MEDS: Tolterodine Tartrate 2 MG CAP.SA PO (09:40)
[2023-02-13] MEDS: Lisinopril 20 MG Tablet PO (09:40)
[2023-02-13] MEDS: Miconazole Nitrate 43 GM Bottle 1 APPLIC TOPICAL ×2 (09:41→21:50)
[2023-02-13] MEDS: Menthol/Lanolin/Calamine/Znox 113 GM Tube 1 APPLIC TOPICAL ×2 (09:41→21:51)
[2023-02-13] MEDS: Potassium Chloride Oral Tablet 20 MEQ PO (09:41)
[2023-02-13 09:47] VITALS: BP 132/60; PULSE 65
--- NOTE | 2023-02-13 12:54 | NURSING ---
Updated patient about covid positive staff member. Left VM updating daughter.
[2023-02-13 15:37] VITALS: BP 98/46
--- NOTE | 2023-02-13 15:38 | NURSING ---
PT BP 98/46. SYMPTOM FREE. EDUCATED PT ON DRINKING MORE WATER. REPORTED TO . PER TO MONITOR PT. RN AWARE
[2023-02-13 16:26] VITALS: PULSE 67; RESP 18; TEMP 36.6; O2SAT 92
[2023-02-13] MEDS: Atorvastatin Calcium 40 MG Tablet PO (21:46)
[2023-02-13] MEDS: MELATONIN 10 MG TABLET PO (21:46)
[2023-02-14] MEDS: Levothyroxine 75 MCG Tablet PO (05:23)
[2023-02-14] MEDS: Atenolol 50 MG Tablet PO (08:06)
[2023-02-14] MEDS: Citalopram 40 MG TABLET PO (08:06)
[2023-02-14] MEDS: buPROPion 100 MG Tablet PO (08:07)
[2023-02-14] MEDS: Tolterodine Tartrate 2 MG CAP.SA PO (08:07)
[2023-02-14] MEDS: Furosemide 20 MG Tablet 40 MG PO (08:07)
[2023-02-14] MEDS: Pantoprazole Sodium 40 MG Tablet PO (08:07)
[2023-02-14] MEDS: Potassium Chloride Oral Tablet 20 MEQ PO (08:07)
[2023-02-14] MEDS: Lisinopril 20 MG Tablet PO (08:07)
[2023-02-14] MEDS: Clopidogrel Bisulfate 75 MG Tablet PO (08:08)
[2023-02-14] MEDS: Menthol/Lanolin/Calamine/Znox 113 GM Tube 1 APPLIC TOPICAL (08:11)
[2023-02-14 08:12] VITALS: BP 122/47; PULSE 67; RESP 16; TEMP 35.9; O2SAT 99
[2023-02-14] MEDS: Miconazole Nitrate 43 GM Bottle 1 APPLIC TOPICAL (08:12)
[2023-02-14 11:54] VITALS: BP 128/56; PULSE 85; RESP 16; TEMP 36.4; O2SAT 99
--- NOTE | 2023-02-14 12:10 | NURSING ---
Pt discharges home with daughter @1200. Pleasant mood, no complaints at this time.
== END 2023-02-14 12:00 | disposition home health service (06) | DRG 178 ==
PROVIDERS: Internal Medicine; Admitting Provider Family Medicine Geriatric Medicine; PCP Internal Medicine; Visit Provider Family Medicine Geriatric Medicine
DX: J15.211 Pneumonia due to Methicillin susceptible Staphylococcus aureus (principal); G93.40 Encephalopathy, unspecified; J44.0 Chronic obstructive pulmonary disease with (acute) lower respiratory infection; I50.32 Chronic diastolic (congestive) heart failure; I11.0 Hypertensive heart disease with heart failure; J15.4 Pneumonia due to other streptococci; E89.0 Postprocedural hypothyroidism; G62.9 Polyneuropathy, unspecified; E78.00 Pure hypercholesterolemia, unspecified; F17.210 Nicotine dependence, cigarettes, uncomplicated; K21.9 Gastro-esophageal reflux disease without esophagitis; I25.10 Atherosclerotic heart disease of native coronary artery without angina pectoris; F41.8 Other specified anxiety disorders; N32.81 Overactive bladder; Z79.02 Long term (current) use of antithrombotics/antiplatelets; G47.00 Insomnia, unspecified; Z79.899 Other long term (current) drug therapy; Z79.890 Hormone replacement therapy
CPT/HCPCS: 36415; 80048; 81001; 84132; 85025; 87086; 87811; 92507; 92523; 97110; 97112; 97116; 97129; 97130; 97162; 97166; 97530; 97535; 97802

== ENCOUNTER 2023-02-16 13:59 | Inpatient (IN) | payer MEDICARE, SELFPAY ==
[2017-12-28 13:50] VITALS: BMI 29.2
[2023-02-16] VITALS (26 sets, daily range): BP systolic 68–149; BP diastolic 36–69; PULSE 52–67; RESP 12–34; TEMP 36.4–36.9; O2SAT 93–98; BMI 26.4; BMI 25.5
--- NOTE | 2023-02-16 14:15 | EKG12_ITS ---
Test Reason : Blood Pressure : / mmHG Vent. Rate : 058 BPM Atrial Rate : 058 BPM P-R Int : 182 ms QRS Dur : 082 ms QT Int : 430 ms P-R-T Axes : 059 036 161 degrees QTc Int : [address] & T wave abnormality, consider inferior ischemia ST & T wave abnormality, consider anterolateral ischemia Abnormal ECG Confirmed by CONSUELO GOLD, EDDY ([id number]), publication editor WALLY LOAIZA ([id number]) on 02/17/2023 10:01:25 AM Referred By: Confirmed By:EDDY CORDERO MD
--- NOTE | 2023-02-16 14:15 | RAD_ITS ---
STUDY: X-RAY CHEST REASON FOR EXAM: Female, 77 years old. Cough. TECHNIQUE: Single frontal view of the chest. COMPARISON: January 25, 2023 FINDINGS: Stable mild hyperinflation. There is no demonstrated pleural abnormality. Cardiomegaly with sternotomy wires and changes of coronary artery bypass grafting. Normal mediastinum and [place]. Prominent central pulmonary arteries. Aortic tortuosity with calcification. Mild thoracic spondylosis is unchanged. Normal visualized ribs, clavicles, and shoulders. Mild dilatation of small bowel in the upper abdomen. RAD/Chest 1 View (Portable) IMPRESSION: No active or acute cardiopulmonary disease. Electronically Signed: Waqar Cardona MD at 14:55 EST ,
[2023-02-16 14:24] LABS: Mucous, Urine 0 SEEN /hpf (<or=2+)
[2023-02-16 14:27] LABS: Absolute Lymphocyte Count 2.11 X10^3/uL (0.83-4.51); Absolute Neutrophil Count 5.6 X10^3/uL (2.0-7.7); Basophil# 0.03 X10^3/uL; Basophil% 0.3 % (0-1); Eosinophil# 0.19 X10^3/uL; Eosinophils% 2.2 % (0-5); Hematocrit 38.2 % (37-47); Lymphocyte # 2.11 X10^3/ul (0.83-4.51); Lymphocyte % 24.5 % (19-41); Mean Corp Hgb Conc 31.4 g/dL (32-36); Mean Corpuscular Hgb 27.1 pg (27.0-32.0); Mean Corpuscular Volume 86.2 fL (81-99); Mean Platelet Vol. 10.2 fl (6.2-12.0); Monocyte# 0.64 X10^3/uL; Monocyte% 7.4 % (0-10); NRBC Flagged by Analyzer 0 % (0-5); Neutrophil # 5.62 X10^3/uL (2.7-7.7); Neutrophil % 65.3 % (47-70); Platelet Count 227 K/mm3 (150-450); RBC Distribution Width CV 18.5 % (11.6-14.6); RBC Distribution Width SD 58.4 fl (35.1-43.9); Red Blood Count 4.43 M/mm3 (4.2-5.4); White Blood Count 8.6 K/mm3 (4.4-11.0)
[2023-02-16 14:37] LABS: Partial Thromboplast Time 26.3 Seconds (24.1-36.2); Prothrombin Time (Protime)PT. 13.5 SECONDS (11.7-14.9)
[2023-02-16 14:43] LABS: Color, Urine Yellow (Yellow); Glucose, Dipstick Normal (Normal); Ketone-Dipstick 5 mg/dl (Negative); Leukocyte Esterase-Dipstick 500 /ul (Negative); Nitrite-Dipstick Negative (Negative); Occult Blood-Urine 25 /ul (Negative); Protein-Dipstick 15 mg/dl (Negative); Specific Gravity, Urine 1.025 (1.002-1.030); Urine Bilirubin Dipstick Negative (Negative); Urine Clarity Sl. Cloudy (Clear); Urine Urobilinogen Normal (Normal)
[2023-02-16 14:51] LABS: ALB/GLOB Ratio 0.8 RATIO (0.9-2.4); AST(SGOT) 18 U/L (15-37); Alanine Aminotransfer ALT/SGPT 13 U/L (13-56); Alkaline Phosphatase 143 U/L (45-117); Anion Gap 4 (5-15); BUN 35 mg/dL (7-18); BUN/Creat Ratio 9.6 RATIO (10-20); Calcium,Total 9.3 mg/dL (8.5-10.1); Chloride 104 mmol/L (98-107); Creatinine, Serum 3.64 mg/dL (0.55-1.02); EST Glomerular Filtration Rate 13 mL/min (>60); Est Glom Filt Rate - Afr Amer 16 mL/min (>60); Estimated Creatinine Clearance 12.54 ml/min; Glucose 139 mg/dL (74-106); Potassium 4.4 mmol/L (3.5-5.1); Sodium Level 141 mmol/L (136-145)
[2023-02-16] MEDS: 0.9% Normal Saline (1000mL) 1,000 ML 999 ML IV ×2 (14:51→15:20)
[2023-02-16 14:52] LABS: Amorphous Sediment 1+; Bacteria 2+ /hpf (None Seen); Red Blood Cells-Urine 0-5 SEEN /hpf (0-5); Squamous Epithelial Cells - UA 0-5 SEEN /hpf (5-10); Transitional Epithelial - Ur 0-5 SEEN /hpf (0-5); White Blood Cells 25-50 SEEN /hpf (0-5)
[2023-02-16 14:52] LABS: Lactic Acid 1.9 mmol/L (0.4-1.9)
--- NOTE | 2023-02-16 15:14 | PCM.HP.STD ---
HPI - General General Date of Admission: 02/16/23 Date of Service: 02/16/23 Chief Complaint: Confusion, decreased responsiveness. HPI Narrative The patient is a 77 y/o F w/ PMHx: Chronic Diastolic HF, Anxiety and Depression, Chronic anemia, COPD, Hx CVA/TIA, Carotid artery stenosis, BZD dependence history, Hx Rectal CA, Hx Thyroid CA s/p resection with resulting hypothyroidism, JAIME, CAD s/p PCI and CABG x 3, Tobacco use, admitted 01/25/23-01/29/23 secondary to frequent mechanical falls with progressive decline, pneumonia treated with levofloxacin with cultures notable from MSSA and streptococcal transition to TCU discharged on 02/14/23 who now represents to the [facility] ED on 02/16/23 with history of increased lethargy and difficulty to arouse patient at home prompting immediate EMS call and transition back to the ED for evaluation. Patient is answering some questions but very fatigued and slow responses. She does report feeling improved with IV fluids in the ED. She does report increased urinary frequency but cannot give any other details. She is still a very poor historian with her acute presentation. Workup in the ED included T97.6, heart rate 67 with most recent repeat 56, BP initially 68/51 with most recent repeat 105/44, respiratory rate 20, 95% on room air, CBC with WBC 8.6, hemoglobin 12, MCV 86.2, platelet 227 without marked shift, unremarkable coags, CMP with carbon dioxide 33, BUN/creatinine 35/3.64, estimated GFR 13, glucose 139, lactic acid 1.9, alk phos 143 otherwise hepatic profile not marked appearing, troponin pending upon requested evaluation of patient, urinalysis noted to be cloudy with specific gravity elevated 1.025, protein 15, ketone 5, occult blood 25, negative nitrite, leukocyte Estrace 500 with urine WBCs 25-50 with 2+ urine bacteria, urine culture pending per ED, blood culture pending per ED, COVID/flu/RSV PCR pending per ED, chest x-ray with no acute cardiopulmonary findings. From review of microbiology records of patient there is no significant previous urine cultures noted with significant growth. In the ED patient administered 2 L normal saline as well as Rocephin 1 g IV x 1. [facility] Medical History Adult failure to thrive Anemia Anxiety and depression Atherosclerosis of coronary artery bypass graft without angina pectoris Atherosclerosis of coronary artery of [place] heart with angina pectoris Avascular necrosis of femur head, left Back pain Benzodiazepine dependence CAD (coronary artery disease) Carotid artery stenosis Chronic hypoxic respiratory failure COPD (chronic obstructive pulmonary disease) CVA (cerebral vascular accident) DDD (degenerative disc disease), lumbar Declining functional status Depression with anxiety Diastolic dysfunction Essential (primary) hypertension H/O: pneumonia Hemorrhoids, external History of rectal cancer History of thyroid cancer Hyperlipidemia Hypothyroidism Nicotine dependence Non-rheumatic mitral regurgitation Non-rheumatic tricuspid valve insufficiency Non-ST elevation (NSTEMI) myocardial infarction Obstructive sleep apnea Osteoarthritis of left hip Secondary pulmonary arterial hypertension TIA (transient ischemic attack) Unable to bear weight on left lower extremity Home Medications levothyroxine 75 mcg tablet 75 mcg PO DAILY THYROID 09/06/17 [History Last Taken 01/29/23] citalopram 40 mg tablet 40 mg PO DAILY DEPRESSION 12/18/17 [History Last Taken 01/29/23] atenolol 50 mg tablet 50 mg PO DAILY BLOOD PRESSURE 01/05/18 [History Last Taken 04/19/22] atorvastatin 40 mg tablet 40 mg PO QHS CHOLESTEROL 01/05/18 [History Last Taken 01/28/23] albuterol sulfate 0.63 mg/3 mL solution for nebulization 0.63 mg inhalation Q4H PRN Congestion 07/14/18 [History Last Taken 1 Week Ago ~10/01/21] bupropion HCl 100 mg tablet 100 mg PO DAILY MOOD STABILIZER 01/16/19 [History Last Taken 01/29/23] pantoprazole 40 mg tablet,delayed release 40 mg PO BID GERD 01/16/19 [History Last Taken 04/19/22] oxybutynin chloride 5 mg tablet,extended release 24 hr 5 mg PO DAILY BLADDER 10/08/21 [History Last Taken 01/29/23] lisinopril 20 mg tablet 20 mg PO DAILY BLOOD PRESSURE 04/10/22 [History Last Taken 04/19/22] clopidogrel 75 mg tablet 75 mg PO QODAY BLOOD THINNER 07/12/22 [History Last Taken 01/29/23] furosemide 20 mg tablet (Lasix) 40 mg (2 x 20 mg) PO DAILY DIURETIC #60 tabs 12/23/22 [Rx Last Taken 01/29/23] melatonin 10 mg sublingual tablet 10 mg PO QHS INSOMNIA #0 tabs 02/12/23 [Rx Last Taken Unknown] potassium chloride 20 mEq tablet,extended release(part/cryst) 20 meq PO DAILYCM SUPPLEMENT 30 days #30 tabs 02/12/23 [Rx Last Taken Unknown] acetaminophen 500 mg tablet 1,000 mg PO Q6H PRN Pain Score 1-10 02/16/23 [History Last Taken Unknown] lorazepam 1 mg tablet 1 mg PO DAILY PRN ANXIETY 02/16/23 [History Last Taken Unknown] Allergy/AdvReac Type Severity Reaction Status Date / Time morphine Allergy PT UNSURE Verified 02/16/23 14:04 Penicillins Allergy Hives Verified 02/16/23 14:04 tramadol HCl [From Ultram] Allergy PT UNSURE Verified 02/16/23 14:04 bupropion [From Wellbutrin] AdvReac hallucinati Verified 02/16/23 14:04 ons Family History Father Heart disease of heart attack at age 64 Mother Cancer of cancer at age 72 CVA (cerebral vascular accident) Surgical History History of appendectomy History of coronary artery bypass graft x 3 (~2007) History of coronary artery stent placement (10/10/21) History of left heart catheterization (10/10/21) Hx of cholecystectomy Hx of thyroidectomy Presence of stent in coronary artery (~10/10/21) Social History household members: children and other details: Daughter. housing: house Smoking Status: Current every day smoker tobacco type: cigarettes details: Patient denies alcohol use substance use type: does not use ROS ROS Narrative Admission Review of Systems: CONSTITUTIONAL: No weight loss, fever, chills, + weakness or fatigue. HEENT: + Mild congestion. Eyes: No visual loss, blurred vision, double vision or yellow sclerae. Ears, Nose, Throat: No hearing loss, sneezing, sore throat. SKIN: + Various abrasions, ecchymoses, stage. CARDIOVASCULAR: No chest pain, chest pressure or chest discomfort, palpitations, edema, orthopnea, syncopal events. RESPIRATORY: + Chronic cough. No shortness of breath, marked sputum production, wheezing, hemoptysis. GASTROINTESTINAL: + Poor oral intake. No nausea, vomiting, diarrhea, abdominal pain, melena, BRBPR. GENITOURINARY: + Urinary incontinence, frequency reported. No dysuria or retention. NEUROLOGICAL: + Frequent falls debility, cognitive decline, chronic radiculopathy. No headache, dizziness, syncope, paralysis, ataxia, numbness or tingling in the extremities, focal weakness, change in bowel or bladder control, seizure. MUSCULOSKELETAL: + muscle, back pain, joint pain or stiffness. HEMATOLOGIC: + anemia, bleeding or bruising. LYMPHATICS: No enlarged nodes. No history of splenectomy. PSYCHIATRIC: + history of depression and anxiety. ENDOCRINOLOGIC: No reports of sweating, cold or heat intolerance. No polyuria or polydipsia. ALLERGIES: No history of asthma, hives, eczema or rhinitis. Vital Signs Vital Signs Vital Signs: 02/16/23 14:00 02/16/23 14:36 02/16/23 15:02 Temperature 97.5 F L Temperature Source Oral Pulse Rate 67 59 L 56 L Respiratory Rate 21 H 16 20 H Blood Pressure 68/51 L 85/37 L 105/44 L Blood Pressure Mean 56 53 64 Pulse Ox 95 95 Oxygen Delivery Method Room Air Room Air Weight Weight: 131 lb 2.801 oz Body Mass Index (BMI) 26.4 Physical Exam Narrative Physical Examination: General: Awake, alert, oriented to self, place, month but does give wrong year although it has just changed from 2022 and cannot get present, remains cooperative, slow responses and fatigued appearance, seated upright in the ED bed in no apparent distress. Skin: Normal color, normal turgor, no icterus, no cyanosis except occasional staged ecchymoses. HEENT: AT/NC, EOMI, PERRLA, dry MM, no carotid bruits or JVD noted. Lungs: Diminished, greater bases, appropriate effort, no appreciated rales or rhonchi, wheezing. Heart: Regular rate and rhythm; no gallop, rub audible. Abdomen: Soft, overweight, NTTP, no evidence of distention, hyperactive BS, no appreciated HSM, reports mild suprapubic discomfort with palpation. Extremities: No cyanosis, clubbing, or edema. Neurological: Patient awake, alert, oriented as noted, cognitive function suspect decreased from baseline intact with underlying cognitive decline but given acute illness and encephalopathy not quite at baseline; pupils equally reactive to light and accommodation, cranial nerves grossly normal, moving all 4 extremities, no focal deficits, strength moderately to severely globally decreased secondary to acute presentation and underlying comorbidities. Psychiatric: Affect appears flat, fatigued, no acute evidence of depressive or anxiety feelings but does have underlying history. Results Lab / Micro Data 02/16/23 14:05 02/16/23 14:05 Labs: Laboratory Results - last 24 hr 02/16/23 14:05: WBC 8.6, RBC 4.43, Hgb 12.0, Hct 38.2, MCV 86.2, MCH 27.1, MCHC 31.4 L, RDW Std Deviation 58.4 H, RDW Coeff of John 18.5 H, Plt Count 227, MPV 10.2, Immature Gran % (Auto) 0.300, Neut % (Auto) 65.3, Lymph % (Auto) 24.5, [place] % (Auto) 7.4, Eos % (Auto) 2.2, Baso % (Auto) 0.3, Absolute Neuts (auto) 5.6, Absolute Lymphs (auto) 2.11, Nucleated RBC % 0, PT 13.5, INR 1.0, APTT 26.3, Sodium 141, Potassium 4.4, Chloride 104, Carbon Dioxide 33.0 H, Anion Gap 4 L, BUN 35 H, Creatinine 3.64 H, Estim Creat Clear Calc 12.54, Est GFR (MDRD) Af Amer 16 L, Est GFR (MDRD) Non-Af 13 L, BUN/Creatinine Ratio 9.6 L, Glucose 139 H, Lactic Acid 1.9, Calcium 9.3, Total Bilirubin 0.60, AST 18, ALT 13, Alkaline Phosphatase 143 H, Total Protein 7.0, Albumin 3.0 L, Globulin 4.0, Albumin/Globulin Ratio 0.8 L 02/16/23 14:13: Urine Color Yellow, Urine Clarity Sl. Cloudy, Urine pH 5.0, Ur Specific Supai 1.025, Urine Protein 15 H, Urine Glucose (UA) Normal, Urine Ketones 5 H, Urine Occult Blood 25 H, Urine Nitrite Negative, Urine Bilirubin Negative, Urine Urobilinogen Normal, Ur Leukocyte Esterase 500 H, Urine RBC 0-5 SEEN, Urine WBC 25-50 SEEN, Ur Squamous Epith Cells 0-5 SEEN, Ur Transition Epith Cell 0-5 SEEN, Amorphous Sediment 1+, Urine Bacteria 2+, Urine Mucus 0 SEEN Imagaing Radiology Impression Chest X-Ray 02/16/23 14:15 IMPRESSION: No active or acute cardiopulmonary disease. Electronically Signed: Waqar Cardona MD at 14:55 EST Reading Location ID and State: [address] [place] [address] , Service support , Assessment & Plan Assessment/Plan (1) UTI (urinary tract infection): PLAN: Plan The patient is a 77 y/o F w/ PMHx: Chronic Diastolic HF, Anxiety and Depression, Chronic anemia, COPD, Hx CVA/TIA, Carotid artery stenosis, BZD dependence history, Hx Rectal CA, Hx Thyroid CA s/p resection with resulting hypothyroidism, JAIME, CAD s/p PCI and CABG x 3, Tobacco use, admitted 01/25/23-01/29/23 secondary to frequent mechanical falls with progressive decline, pneumonia treated with levofloxacin with cultures notable from MSSA and streptococcal transition to TCU discharged on 02/14/23 who now represents to the [facility] ED on 02/16/23 with history of increased lethargy and difficulty to arouse patient at home prompting immediate EMS call and transition back to the ED for evaluation. #1. Acute Encephalopathy, hypotension secondary to Acute Complicated Urinary Tract Infection: Will admit to MS telemetry given BP improvement in the ED, UA upon ED evaluation remarkable, pending UCx, continue IVFs, monitor I/Os, continue IV Rocephin w/ transition as able pending sensitivities and speciation. Bld cx x 2 obtained in the ED. PT/OT/CM consulted for discharge planning. #2. Acute kidney injury: Secondary to hypoperfusion with acute urinary tract infection as noted and poor intake suspected. Admission BUN/Cr 35/3.64, prior baseline creatinine noted to be 0.7-0.9. Will continue to aggressively hydrate, hold nephrotoxic medications and repeat chemistry in AM. If no improvement would plan FeNa and renal ultrasound assessment. #3. Recent staphylococcal MSSA and streptococcal pneumonia, resolved: Chest x-ray upon current presentation with no acute cardiopulmonary findings patient completed a course of Levaquin, encourage aggressive I-S, head of bed and routine activity with therapies. #4. Frequent mechanical falls with progressive decline, worsening with adult failure to thrive: Will maintain on fall and aspiration precautions, encourage frequent positional changes, judicious IV fluids especially given hypotensive presentation, will again request PT and OT assessments as well as case management as patient likely needs continued skilled therapies in a skilled setting. #5. Chronic COPD: Chest x-ray with no acute cardiopulmonary findings, RSV/COVID/influenza PCR pending upon requested evaluation of patient, will maintain on ATC budesonide, PRN albuterol, HOB, IS parameters. #6. Lumbar disease, noted on previous admission: CT lumbar spine with chronic L4 vertebral body compression fracture with multilevel lumbar spondylosis with moderate spinal canal and bilateral neuroforaminal stenosis at L3-4, certainly complicates presentation and patient fall risk, will encourage frequent positional changes, PT/OT/case management consulted as noted. #7. Chronic normocytic anemia: Admission hemoglobin 12.0 however patient significantly dehydrated, previous presentation with last hemoglobin 02/13/23 Hgb 10.6 with baseline primarily 9-10 at that time, will continue to trend. #8. Chronic diastolic CHF: 04/21/2022 echocardiogram with normal LV size, normal LV systolic function, EF 60%, stage II diastolic dysfunction, PASP 50 mmHg with moderate pulmonary hypertension, will continue Plavix, statin, temporally holding hypertensive regimen given low BP in the ED as noted, add back once appropriate. #9. CAD: Status post CABG x 3 and PCI, will continue plavix, atorvastatin, holding atenolol and lisinopril given hypotensive presentation as noted. #10. Anxiety and depression: Clarifying as patient has been on significant Ativan regimen to assure this is correct, if this is correct once patient is more alert and appropriate would continue to avoid withdrawal, will hold trazodone given sedation, continue bupropion and citalopram home regimen. #11. Hypertension: Given BP low normal currently in the ED will hold hypertensive regimen and resume once clinically appropriate. Continue to judiciously hydrate as noted. #12. Hyperlipidemia: We will continue patient home statin therapy. #13. History of thyroid cancer status post resection with hypothyroidism: We will continue patient home levothyroxine regimen. #14. History CVA/TIA: We will continue patient home plavix, statin therapy, no diabetic history. Temporarily holding hypertensive regimen given low BP in the ED as noted. Add back once appropriate. #15. History of rectal cancer: Unclear specific interventions previously, poor historian with declining mental capacity, encourage continued outpatient follow-up with oncology and colorectal surgery as previously arranged. #16. Tobacco Abuse: Encouraged cessation, inpatient consultation per RT, NR if desired. #17. DVT prophylaxis: Heparin. #18. CODE status: Patient CELIA is two daughters and living will is she believes in place. Per recent admission discussions, code status [id number], no intubation status. Charges/Coding Visit Charges Inpatient E&M: 48293 Init Hosp L3
--- NOTE | 2023-02-16 15:15 | EX.ED.DYSGE1 ---
HPI History of Present Illness Chief Complaint: Weakness Narrative Narrative: Patient is a 77-year-old female with history of depression, CAD, hypothyroidism who takes Plavix,'s JAIME history of CVA who presents to the emergency department for weakness, altered mental status. Patient was legally discharged 2 days ago for frequent falls. Patient had a good day yesterday however on Thursday, the patient was more fatigued. Today, the patient had difficulty getting out of bed, had a low blood pressure and was brought in by EMS. Patient is alert and oriented x 2 which is not her baseline. Patient has not been eating and drinking normally. Patient is here for evaluation. [facility] Medical History (Updated 02/16/23 @ 15:22 by ROSA Barrientos) Adult failure to thrive Anemia Anxiety and depression Atherosclerosis of coronary artery bypass graft without angina pectoris Atherosclerosis of coronary artery of [place] heart with angina pectoris Avascular necrosis of femur head, left Back pain Benzodiazepine dependence CAD (coronary artery disease) Carotid artery stenosis Chronic hypoxic respiratory failure COPD (chronic obstructive pulmonary disease) CVA (cerebral vascular accident) DDD (degenerative disc disease), lumbar Declining functional status Depression with anxiety Diastolic dysfunction Essential (primary) hypertension H/O: pneumonia Hemorrhoids, external History of rectal cancer History of thyroid cancer Hyperlipidemia Hypothyroidism Nicotine dependence Non-rheumatic mitral regurgitation Non-rheumatic tricuspid valve insufficiency Non-ST elevation (NSTEMI) myocardial infarction Obstructive sleep apnea Osteoarthritis of left hip Secondary pulmonary arterial hypertension TIA (transient ischemic attack) Unable to bear weight on left lower extremity Home Medications levothyroxine 75 mcg tablet 75 mcg PO DAILY THYROID 09/06/17 [History Last Taken 01/29/23] citalopram 40 mg tablet 40 mg PO DAILY DEPRESSION 12/18/17 [History Last Taken 01/29/23] atenolol 50 mg tablet 50 mg PO DAILY BLOOD PRESSURE 01/05/18 [History Last Taken 04/19/22] atorvastatin 40 mg tablet 40 mg PO QHS CHOLESTEROL 01/05/18 [History Last Taken 01/28/23] albuterol sulfate 0.63 mg/3 mL solution for nebulization 0.63 mg inhalation Q4H PRN Congestion 07/14/18 [History Last Taken 1 Week Ago ~10/01/21] bupropion HCl 100 mg tablet 100 mg PO DAILY MOOD STABILIZER 01/16/19 [History Last Taken 01/29/23] pantoprazole 40 mg tablet,delayed release 40 mg PO BID GERD 01/16/19 [History Last Taken 04/19/22] oxybutynin chloride 5 mg tablet,extended release 24 hr 5 mg PO DAILY BLADDER 10/08/21 [History Last Taken 01/29/23] lisinopril 20 mg tablet 20 mg PO DAILY BLOOD PRESSURE 04/10/22 [History Last Taken 04/19/22] clopidogrel 75 mg tablet 75 mg PO QODAY BLOOD THINNER 07/12/22 [History Last Taken 01/29/23] furosemide 20 mg tablet (Lasix) 40 mg (2 x 20 mg) PO DAILY DIURETIC #60 tabs 12/23/22 [Rx Last Taken 01/29/23] melatonin 10 mg sublingual tablet 10 mg PO QHS INSOMNIA #0 tabs 02/12/23 [Rx Last Taken Unknown] potassium chloride 20 mEq tablet,extended release(part/cryst) 20 meq PO DAILYCM SUPPLEMENT 30 days #30 tabs 02/12/23 [Rx Last Taken Unknown] acetaminophen 500 mg tablet 1,000 mg PO Q6H PRN Pain Score 1-10 02/16/23 [History Last Taken Unknown] lorazepam 1 mg tablet 1 mg PO DAILY PRN ANXIETY 02/16/23 [History Last Taken Unknown] Allergy/AdvReac Type Severity Reaction Status Date / Time morphine Allergy PT UNSURE Verified 02/16/23 14:04 Penicillins Allergy Hives Verified 02/16/23 14:04 tramadol HCl [From Ultram] Allergy PT UNSURE Verified 02/16/23 14:04 bupropion [From Wellbutrin] AdvReac hallucinati Verified 02/16/23 14:04 ons Family History Father Heart disease of heart attack at age 64 Mother Cancer of cancer at age 72 CVA (cerebral vascular accident) Surgical History (Updated 02/06/23 @ 00:02 by Background Reynold) History of appendectomy History of coronary artery bypass graft x 3 (~2007) History of coronary artery stent placement (10/10/21) History of left heart catheterization (10/10/21) Hx of cholecystectomy Hx of thyroidectomy Presence of stent in coronary artery (~10/10/21) Social History (Updated 01/29/23 @ 19:[address] Ino Silva MD) household members: children and other details: Daughter. housing: house Smoking Status: Current every day smoker tobacco type: cigarettes details: Patient denies alcohol use substance use type: does not use ROS ROS ED ROS Narrative Constitutional: Negative for fever, chills, weight loss. Positive for weakness Eyes: Negative for vision loss, vision change, double vision ENT: Negative for any sore throat, ear pain, congestion Cardiovascular: Negative for any chest pain, tightness, palpitations Respiratory: Negative for any cough, sputum production, hemoptysis, dyspnea, dyspnea on exertion, orthopnea Gastrointestinal: Negative for any abdominal pain, nausea, vomiting, diarrhea, constipation, blood in stool, blood in vomit : Negative for any urinary frequency, dysuria, retention, blood in urine Muscle skeletal: Negative for any myalgias, arthralgias, neck pain, back pain Neurological: Negative for any headache, syncope, paresthesias, dizziness Skin: Negative for any rashes, lumps, itching, abrasions, lacerations Psychiatric: Negative for any depression, anxiety, stress, suicidal ideation, homicidal ideation Hematologic: Negative for any easy bruising, excessive bruising, easy bleeding Allergies: Negative for any eczema, hives, rash EXAM Physical Exam Narrative Exam Narrative: Vital signs reviewed. Patient alert and orient x 2. HEET: Head normocephalic atraumatic, TMs clear bilaterally. Posterior pharynx is clear, I mucous membranes. Nares clear bilaterally. Neck: Supple with no lymphadenopathy or tenderness. No signs of meningismus. Cardiac: Regular rate and rhythm no murmurs gallops or rubs, equal peripheral pulses bilaterally. Respiratory: Lungs clear to auscultation bilaterally. No chest tenderness. Abdomen: Soft, nontender, nondistended. No abdominal bruit or pulsatile masses. No hepatosplenomegaly Extremities: No peripheral edema, no signs of gross trauma or deformity. Active full range of motion of all extremities. Neuro: Cranial nerves II through XII intact, no focal neurological deficits. Skin: Clean dry and intact with no rash, purpura, petechiae, vesicles or pustules. Backs/flank: No CVA tenderness, no midline spinal tenderness, no deformity. Psych: Normal mood and affect. No SI, HI or acute psychosis. Const Vital Signs: 02/16/23 14:00 02/16/23 14:36 02/16/23 15:02 Temperature 97.5 F L Temperature Source Oral Pulse Rate 67 59 L 56 L Respiratory Rate 21 H 16 20 H Blood Pressure 68/51 L 85/37 L 105/44 L Blood Pressure Mean 56 53 64 Pulse Ox 95 95 Oxygen Delivery Method Room Air Room Air Positive well nourished and well developed General Appearance ED: well developed MDM [facility] Lab Data Labs: Laboratory Results - last 24 hr 02/16/23 02/16/23 14:05 14:13 WBC 8.6 RBC 4.43 Hgb 12.0 Hct 38.2 MCV 86.2 MCH 27.1 MCHC 31.4 L RDW Std Deviation 58.4 H RDW Coeff of John 18.5 H Plt Count 227 MPV 10.2 Immature Gran % (Auto) 0.300 Neut % (Auto) 65.3 Lymph % (Auto) 24.5 Coffee % (Auto) 7.4 Eos % (Auto) 2.2 Baso % (Auto) 0.3 Absolute Neuts (auto) 5.6 Absolute Lymphs (auto) 2.11 Nucleated RBC % 0 PT 13.5 INR 1.0 APTT 26.3 Sodium 141 Potassium 4.4 Chloride 104 Carbon Dioxide 33.0 H Anion Gap 4 L BUN 35 H Creatinine 3.64 H Estim Creat Clear Calc 12.54 Est GFR (MDRD) Af Amer 16 L Est GFR (MDRD) Non-Af 13 L BUN/Creatinine Ratio 9.6 L Glucose 139 H Lactic Acid 1.9 Calcium 9.3 Total Bilirubin 0.60 AST 18 ALT 13 Alkaline Phosphatase 143 H Total Protein 7.0 Albumin 3.0 L Globulin 4.0 Albumin/Globulin Ratio 0.8 L Urine Color Yellow Urine Clarity Sl. Cloudy Urine pH 5.0 Ur Specific [place] 1.025 Urine Protein 15 H Urine Glucose (UA) Normal Urine Ketones 5 H Urine Occult Blood 25 H Urine Nitrite Negative Urine Bilirubin Negative Urine Urobilinogen Normal Ur Leukocyte Esterase 500 H Urine RBC 0-5 SEEN Urine WBC 25-50 SEEN Ur Squamous Epith Cells 0-5 SEEN Ur Transition Epith Cell 0-5 SEEN Amorphous Sediment 1+ Urine Bacteria 2+ Urine Mucus 0 SEEN Radiography Diagnostic Testing: Clinical Impression(s) from Imaging Studies Chest X-Ray 02/16/23 14:15 IMPRESSION: No active or acute cardiopulmonary disease. Electronically Signed: Waqar Cardona MD at 14:55 EST , Treatment and Re-Evaluation :: Patient appears to be in no obvious respiratory distress, vital signs show the patient is hypotensive, patient alert and oriented x 2. Presenting to the emerged part for worsening weakness. Differential diagnosis includes CVA, infection such as UTI or pneumonia, viral syndrome, dehydration. Patient did receive a full septic workup and including 2 sets of troponins including 2 sets of blood cultures, urinalysis lactic, as well as basic laboratory values. Patient's CBC was unremarkable, coagulation markers were unremarkable. Patient's chemistries did show some abnormal kidney function with a creatinine of 3.6, on the fifth of this month which was 3 days ago, her creatinine was 0.9 this is a significant increase. Glucose 139. Lactic acid was negative. Patient was given 2 L of normal saline, urinalysis did show some signs of infection, urine culture will be sent. Patient's blood pressure is improving with fluids. 2+ bacteria 25-50 white blood cells, 500 leukocytes, IV Rocephin given. At this time, patient will need to be admitted to hospital for dehydration, acute kidney injury, altered mental status, urinary tract infection. 35 minutes of critical care time will be completed secondary to the hypotension. Critical Care Time Critical Care Time: Yes Critical care time (excluding procedures): 30-74 minutes, Discussing w/Patient &/or Family/Executive Officer [employer] War[employer] Team and Performing Direct Patient Care at Bedside Discharge Plan Triage Chief Complaint: Weakness ED Midlevel Provider: Kingsley Navas ED Provider: Evelio Murphy Dx/Rx/DC Orders Clinical Impression: Acute alteration in mental status, UTI (urinary tract infection), Acute dehydration, Acute kidney injury Prescriptions: No Action albuterol sulfate 0.63 mg/3 mL solution for nebulization 0.63 mg INHALATION Q4H PRN (Reason: Congestion) furosemide [Lasix] 20 mg tablet 40 mg PO DAILY Qty: 60 11RF levothyroxine 75 MCG tablet 75 mcg PO DAILY citalopram 40 mg tablet 40 mg PO DAILY atenolol 50 MG tablet 50 mg PO DAILY atorvastatin 40 MG tablet 40 mg PO QHS bupropion HCl 100 MG tablet 100 mg PO DAILY pantoprazole 40 MG tablet 40 mg PO BID oxybutynin chloride 5 mg tablet extended release 24hr 5 mg PO DAILY lisinopril 20 mg tablet 20 mg PO DAILY clopidogrel 75 mg tablet 75 mg PO QODAY melatonin 10 mg Tablet, Sublingual 10 mg PO QHS Qty: 0 0RF potassium chloride 20 mEq Tablet,Er Particles/Crystals 20 meq PO DAILYCM 30 Days Qty: 30 0RF acetaminophen 500 mg Tablet 1,000 mg PO Q6H PRN (Reason: Pain Score 1-10) lorazepam 1 mg Tablet 1 mg PO DAILY PRN (Reason: ANXIETY ) Primary Care Provider: Zully Rojas Referrals: Zully Rojas MD [Primary Care Provider] - Disposition Disposition: Acute Care Hospital [facility]
[2023-02-16 15:35] LABS: Troponin-I HS 19 pg/mL (3.0-54.0)
[2023-02-16] MEDS: Ceftriaxone 1 GM/50 ML BAG IV (15:41)
--- OUTSIDE RECORDS SUMMARY | 2023-02-16 17:19 | XMS RPT_ITS | CCD ---
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 Unavailable Unavailable ASIF, KAILASH Unavailable Unavailable KINKOPF, AB Unavailable Unavailable GANTA, ASHLEY C. Unavailable Unavailable STEPHENIE, JENY Unavailable Unavailable ALEKSANDAR CASIANONETH Unavailable Unavailable IMCA Unavailable Unavailable PROVIDER, UNKNOWN Unavailable Unavailable RIKKI, CHEMA-CHI Unavailable Unavailable FERCESILIA JOSEE Unavailable Unavailable PROVIDER, UNKNOWN Admitting Unavailable PROVIDER, UNKNOWN Attending Unavailable Ashley Parikh MD Primary Care Provider Ashley Parikh MD Primary Care Provider Gurwinder GOLD MD, Dagreggung Unavailable MASCI, KINGSLEY A Referring Unavailable GANTA, ASHLEY Primary Care Unavailable MASCI, KINGSLEY A Referring Unavailable GANTA, ASHLEY Primary Care Unavailable Lola RN, Comfort Unavailable Unavailable Masci DO, Kingsley A Unavailable Ashley Parikh MD Primary Care Provider Gurwinder GOLD MD, Daesung Unavailable Dotayler RN, Comfort Unavailable Unavailable Masci DO, Kingsley A Unavailable Ashley Parikh MD Primary Care Provider Lola RN, Comfort Unavailable Unavailable GANTA, ASHLEY Primary Care Unavailable IRASEMA CARDENAS Attending Unavailable ANNALISA BERNSTEIN Referring Unavailable GANTA, ASHLEY Primary Care Unavailable GANTA, ASHLEY Primary Care Unavailable RAZ BRAMBILA Referring Unavailable GANTA, ASHLEY Attending Unavailable GANTA, ASHLEY Primary Care Unavailable GANTA, ASHLEY Referring Unavailable MIGDALIA UGARTE Attending Unavailable GANTA, ASHLEY Primary Care Unavailable GANTA, ASHLEY Primary Care Unavailable TRI, KRISTINA M Attending Unavailable GANTA, ASHLEY Primary Care Unavailable TRI, KRISTINA M Attending Unavailable GANTA, ASHLEY Primary Care Unavailable PRADIP, CEASR Attending Unavailable GANTA, ASHLEY Primary Care Unavailable LIZZ NUR Attending Unavailable GANTA, ASHLEY Primary Care Unavailable RAZ BRAMBILA Referring Unavailable GANTA, ASHLEY Primary Care Unavailable MASCI, KINGSLEY A Referring Unavailable MASCI, KINGSLEY A Attending Unavailable GANTA, ASHLEY Attending Unavailable GANTA, ASHLEY Primary Care Unavailable GANTA, ASHLEY Primary Care Unavailable BRAMBILARAZ Edwards Referring Unavailable GANTA, ASHLEY Primary Care Unavailable BRAMBILARAZ Edwards Referring Unavailable TRI, KRISTINA M Attending Unavailable GANTA, ASHLEY Primary Care Unavailable GANTA, ASHLEY Primary Care Unavailable BRAMBILARAZ Edwards Referring Unavailable GANTA, ASHLEY Primary Care Unavailable MASCI, KINGSLEY A Referring Unavailable BRAMBILA, RAZ Attending Unavailable GANTA, ASHLEY Primary Care Unavailable RAZ BRAMBILA Admitting Unavailable GANTA, ASHLEY Primary Care Unavailable MACI GHOSH Attending Unavailable TRI, KRISTINA M Referring Unavailable GANTA, ASHLEY Primary Care Unavailable TRI, KRISTINA M Referring Unavailable GANTA, ASHLEY Primary Care Unavailable GANTA, ASHLEY Primary Care Unavailable GANTA, ASHLEY Primary Care Unavailable PRADIP, CESAR Referring Unavailable GANTA, ASHLEY Primary Care Unavailable GANTA, ASHLEY Primary Care Unavailable PRADIP, CESAR Attending Unavailable GANTA, ASHLEY Primary Care Unavailable PRADIP, CESAR Referring Unavailable GANTA, ASHLEY Referring Unavailable GANTA, ASHLEY Primary Care Unavailable GANTA, ASHLEY Referring Unavailable GANTA, ASHLEY Primary Care Unavailable GANTA, ASHLEY Primary Care Unavailable BRAMBILARAZ Edwards Attending Unavailable GANTA, ASHLEY Primary Care Unavailable MASCI, KINGSLEY A Referring Unavailable GANTA, ASHLEY Primary Care Unavailable Allergies Allergy Classification Reported Allergen(s) Allergy Type Date of Onset Reaction(s) Facility (20 sources) morphine; Translations: [MORPHINE HCL] Drug Allergy 7 Mental Status Change [facility] Repository (20 sources) nalbuphine; Translations: [NALBUPHINE HCL] Drug Allergy 7 [facility] Repository (20 sources) orphenadrine; Translations: [ORPHENADRINE] Drug Allergy 7 [facility] Repository (20 sources) Penicillins; Translations: [PENICILLINS] Propensity to adverse reactions (disorder) 7 Rash [facility] Repository (20 sources) traMADol; Translations: [TRAMADOL HCL] Drug Allergy 7 Rash [facility] Repository (3 sources) OTHER; Translations: [OTHER] Propensity to adverse reactions (disorder) 7 [facility] Repository (20 sources) buPROPion; Translations: [BUPROPION] Drug Allergy 9 Other: See Comments [facility] Work Phone: (20 sources) HYDROmorphone Drug Allergy 7 Mental Status Change [facility] (3 sources) HYDROmorphone; Translations: [HYDROMORPHONE] Drug Allergy 3 Mental Status Change [facility] Work Phone: Medications Current Medications Medication Drug Class(es) Dates Sig (Normalized) Sig (Original) acetaminophen 325 mg / HYDROcodone bitartrate 5 mg oral tablet (2 sources) Opioid Agonist Start: 01-09-2023 End: 01-16-2023 take 0.5-1 tablets by mouth every eight hours as needed for pain HYDROcodone-aceta minophen (NORCO) 5-325 mg per tablet Indications: Right hip pain Take 0.5-1 tablets by mouth every 8 hours as needed for pain for up to 7 days. 21 tablet 0 01/09/2023 01/16/2023 Active Completed/Discontinued Medications Medication Drug Class(es) Dates Sig (Normalized) Sig (Original) acetaminophen 500 mg oral tablet (20 sources) Start: 02-07-2014 End: 11-19-2021 take 1 tablet by mouth every six hours as needed acetaminophen (TYLENOL) 500 mg tablet Take 1 tablet by mouth every 6 hours as needed for Pain. 0 02/07/2014 11/19/2021 Discontinued Problems Active Problems Problem Classification Problem Date Documented Da te Episodic/Chronic Abdominal hernia (2 sources) Diaphragmatic hernia without obstruction or gangrene; Translations: [Diaphragmatic hernia without obstruction or gangrene] Onset: 8 Episodic Acute cerebrovascular disease (4 sources) Cerebrovascular accident; Translations: [Cerebral infarction, unspecified] Chronic Acute posthemorrhagic anemia (2 sources) Acute posthemorrhagic anemia; Translations: [Acute posthemorrhagic anemia] Onset: 8 Episodic Anxiety disorders (20 sources) Anxiety disorder, unspecified; Translations: [Anxiety] Onset: 5 06-09-2014 Chronic Cancer of rectum and anus (20 sources) Malignant tumor of anus; Translations: [Malignant neoplasm of anus, unspecified] Onset: 2 Chronic Chronic obstructive pulmonary disease and bronchiectasis (20 sources) Emphysematous bronchitis; Translations: [Chronic obstructive pulmonary disease, unspecified] Onset: 8 07-24-2017 Chronic Complication of device; implant or graft (20 sources) Arteriosclerosis of coronary artery bypass graft; Translations: [Atherosclerosis of coronary artery bypass graft(s) without angina pectoris] Onset: 0 02-04-2021 Chronic Coronary atherosclerosis and other heart disease (2 sources) Atherosclerotic heart disease of [place] coronary artery without angina pectoris; Translations: [Athscl heart disease of [place] coronary artery w/o ang pctrs] Onset: 8 Chronic Deficiency and other anemia (3 sources) Iron deficiency anemia due to blood loss; Translations: [Iron deficiency anemia secondary to blood loss (chronic)] Chronic Delirium, dementia, and amnestic and other cognitive disorders (15 sources) Multi-infarct dementia; Translations: [Vascular dementia without behavioral disturbance] Onset: 3 10-06-2022 Chronic Diseases of mouth; excluding dental (7 sources) Inflammatory disease of mucous membrane; Translations: [Other forms of stomatitis] Episodic Disorders of lipid metabolism (20 sources) Hyperlipidemia, unspecified; Translations: [Mixed hyperlipidemia] Onset: 8 Chronic Esophageal disorders (20 sources) Gastro-esophageal reflux disease without esophagitis; Translations: [Gastroesophageal reflux disease] Onset: 4 02-04-2021 Chronic Essential hypertension (20 sources) Essential (primary) hypertension; Translations: [Hypertensive disorder] Onset: 0 02-04-2021 Chronic Fracture of upper limb (2 sources) Closed fracture of surgical neck of humerus; Translations: [Unspecified nondisplaced fracture of surgical neck of right humerus, subsequent encounter for fracture with routine healing] Episodic Fracture of upper limb (1 source) Closed fracture of upper end of humerus; Translations: [Other nondisplaced fracture of upper end of left humerus, initial encounter for closed fracture] Episodic Gastrointestinal hemorrhage (4 sources) Melena; Translations: [Gastrointestinal hemorrhage, unspecified] Onset: 8 Episodic Genitourinary symptoms and ill-defined conditions (3 sources) Urinary incontinence; Translations: [Unspecified urinary incontinence] Chronic Genitourinary symptoms and ill-defined conditions (3 sources) Dysuria; Translations: [Dysuria] Episodic Miscellaneous mental health disorders (1 source) Acute insomnia; Translations: [Adjustment insomnia] Episodic Mood disorders (20 sources) Recurrent major depression; Translations: [Major depressive disorder, recurrent, unspecified] Onset: 5 02-04-2021 Chronic Nephritis; nephrosis; renal sclerosis (20 sources) Primary IgA nephropathy; Translations: [Recurrent and persistent hematuria with other morphologic changes] Onset: 5 02-04-2021 Chronic Nutritional deficiencies (2 sources) Vitamin D deficiency; Translations: [Vitamin D deficiency, unspecified] Onset: 3 10-06-2022 Chronic Other aftercare (4 sources) senior living (current) use of antithrombotics/antipl atelets; Translations: [senior living (current) use of aspirin] Onset: 8 Episodic Other bone disease and musculoskeletal deformities (2 sources) Avascular necrosis of bone of hip; 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 Other bone disease and musculoskeletal deformities (1 source) Idiopathic aseptic necrosis of left femur; Translations: [Avascular necrosis of bone of hip, left (HCC)] Onset: 3 Chronic Other connective tissue disease (1 source) Pain in bilateral legs; Translations: [Pain in right leg] Episodic Other connective tissue disease (1 source) Pain of left hand; Translations: [Pain in left hand] Episodic Other diseases of bladder and urethra (4 sources) Overactive bladder; Translations: [Overactive bladder] Chronic Other hereditary and degenerative nervous system conditions (3 sources) Restless legs syndrome; Translations: [Restless legs syndrome] Onset: 8 Chronic Other hereditary and degenerative nervous system conditions (20 sources) Restless legs; Translations: [Restless legs syndrome] Onset: 3 Chronic Other injuries and conditions due to external causes (1 source) Muscle strain; Translations: [Other injury of unspecified body region, initial encounter] Episodic Other lower respiratory disease (1 source) Interstitial lung disease; Translations: [Interstitial pulmonary disease, unspecified] 10-16-2022 Chronic Other lower respiratory disease (5 sources) Dyspnea; Translations: [Shortness of breath] Episodic Other lower respiratory disease (2 sources) Shortness of breath; Translations: [Shortness of breath] Onset: 3 Episodic Other nervous system disorders (2 sources) Other chronic pain; Translations: [Other chronic pain] Onset: 8 Chronic Other nervous system disorders (20 sources) Chronic pain; Translations: [Other chronic pain] Onset: 4 02-04-2021 Chronic Other nervous system disorders (1 source) Disorder of brain; Translations: [Encephalopathy, unspecified] Chronic Other nervous system disorders (1 source) Encephalopathy, unspecified; Translations: [Encephalopathy] Onset: 3 Chronic Other non-traumatic joint disorders (1 source) Chronic pain of left upper limb; Translations: [Pain in left shoulder] Episodic Other non-traumatic joint disorders (2 sources) Hip pain; Translations: [Pain in left hip] Episodic Other non-traumatic joint disorders (1 source) Pain in right hip; Translations: [Right hip pain] Onset: 3 Episodic Other nutritional; endocrine; and metabolic disorders (5 sources) Hypocalcemia; Translations: [Obesity, unspecified] Onset: 8 Chronic Other nutritional; endocrine; and metabolic disorders (1 source) Weight loss; Translations: [Abnormal weight loss] Episodic Pulmonary heart disease (15 sources) Pulmonary hypertension; Translations: [Pulmonary hypertension, unspecified] Onset: 3 10-06-2022 Chronic Residual codes; unclassified (20 sources) Obstructive sleep apnea syndrome; Translations: [Obstructive sleep apnea (adult) (pediatric)] Onset: 5 02-05-2021 Chronic Residual codes; unclassified (1 source) Obstructive sleep apnea (adult) (pediatric); Translations: [Obstructive sleep apnea] Onset: 1 Chronic Residual codes; unclassified (2 sources) Pain; Translations: [Pain, unspecified] Episodic Residual codes; unclassified (4 sources) Patient encounter status; Translations: [Other specified personal risk factors, not elsewhere classified] Episodic Residual codes; unclassified (1 source) Tobacco user; Translations: [Tobacco use] Episodic Residual codes; unclassified (3 sources) Bilateral lower limb edema; Translations: [Localized edema] Episodic Residual codes; unclassified (1 source) Menopause present; Translations: [Asymptomatic menopausal state] 01-13-2023 Episodic Residual codes; unclassified (1 source) Postmenopausal state; Translations: [Asymptomatic menopausal state] 01-13-2023 Episodic Residual codes; unclassified (1 source) Localized edema; Translations: [Bilateral lower extremity edema] Onset: 3 Episodic Spondylosis; intervertebral disc disorders; other back problems (5 sources) Sciatica, unspecified side; Translations: [Chronic low back pain] Onset: 8 Episodic Substance-related disorders (20 sources) Nicotine dependence, cigarettes, uncomplicated; Translations: [Tobacco dependence syndrome] Onset: 4 02-04-2021 Chronic Thyroid disorders (20 sources) Hypothyroidism, unspecified; Translations: [Hypothyroidism] Onset: 4 02-19-2021 Chronic Unclassified (2 sources) Body mass index (BMI) 31.0-31.9, adult; Translations: [Body mass index (BMI) 31.0-31.9, adult] Onset: 8 Chronic Past or Other Problems Problem Classification Problem Date Documented Da te Episodic/Chronic Acute and unspecified renal failure (2 sources) Acute injury of kidney; Translations: [Acute kidney failure, unspecified] Onset: 04-30-2022 Episodic Chronic obstructive pulmonary disease and bronchiectasis (1 source) Bronchitis, not specified as acute or chronic; Translations: [Bronchitis] Onset: 07-02-2022 Episodic Coronary atherosclerosis and other heart disease (20 sources) Presence of aortocoronary bypass graft; Translations: [Presence of coronary angioplasty implant and graft] Onset: 01-21-2010 06-09-2014 Episodic Deficiency and other anemia (20 sources) Anemia; Translations: [Anemia, unspecified] Onset: 11-22-2021 Episodic Deficiency and other anemia (1 source) Anemia, unspecified; Translations: [Anemia, unspecified type] Onset: 11-22-2021 Episodic E Codes: Fall (2 sources) Fall; Translations: [Unspecified fall, subsequent encounter] Onset: 05-19-2022 Episodic Fluid and electrolyte disorders (20 sources) Dehydration; Translations: [Dehydration] Onset: 12-02-2021 12-02-2021 Episodic Malaise and fatigue (2 sources) Asthenia; Translations: [Other malaise] Onset: 04-30-2022 Episodic Other aftercare (1 source) Encounter for therapeutic drug level monitoring; Translations: [Encounter for therapeutic drug monitoring] Onset: 10-06-2022 Episodic Other circulatory disease (3 sources) Personal history of transient ischemic attack (TIA), and cerebral infarction without residual deficits; Translations: [Prsnl hx of TIA (TIA), and cereb infrc w/o resid deficits] Onset: 07-27-2017 Episodic Other circulatory disease (20 sources) History of transient ischemic attack; Translations: [Personal history of transient ischemic attack (TIA), and cerebral infarction without residual deficits] Onset: 07-25-2022 Episodic Other connective tissue disease (1 source) Pain in left hand; Translations: [Left hand pain] Onset: 05-19-2022 Episodic Other connective tissue disease (1 source) Pain in right leg; Translations: [Pain in both lower extremities] Onset: 04-30-2022 Episodic Other connective tissue disease (1 source) Pain in left leg; Translations: [Pain in both lower extremities] Onset: 04-30-2022 Episodic Other gastrointestinal disorders (20 sources) Functional diarrhea; Translations: [Functional diarrhea] Onset: 12-02-2021 12-02-2021 Episodic Other injuries and conditions due to external causes (1 source) Other injury of unspecified body region, initial encounter; Translations: [Muscle strain] Onset: 05-19-2022 Episodic Other non-traumatic joint disorders (1 source) Pain in left hip; Translations: [Left hip pain] Onset: 05-01-2022 Episodic Other screening for suspected conditions (not mental disorders or infectious disease) (20 sources) Mammography abnormal; Translations: [Other abnormal and inconclusive findings on diagnostic imaging of breast] Onset: 10-12-2009 02-07-2014 Episodic Other upper respiratory disease (20 sources) Polyp of vocal cord ; Translations: [Polyp of vocal cord and larynx] Onset: 12-12-2009 02-04-2021 Episodic Other upper respiratory disease (1 source) Polyp of vocal cord and larynx; Translations: [Vocal cord polyp] Onset: 02-04-2021 Episodic Poisoning by other medications and drugs (20 sources) Oral mucositis (ulcerative) due to antineoplastic therapy; Translations: [Mucositis (ulcerative) due to antineoplastic therapy] Onset: 11-22-2021 11-22-2021 Episodic Pulmonary heart disease (20 sources) Infarction of lung due to embolus; Translations: [Other pulmonary embolism without acute cor pulmonale] Onset: 11-22-2021 11-22-2021 Episodic Screening and history of mental health and substance abuse codes (20 sources) H/O: dementia; Translations: [Personal history of other mental and behavioral disorders] Onset: 05-23-2020 05-23-2020 Episodic Results Test Name Value Interpretation Reference Range Facil ity Vital Signs Date Time Vital Sign Value Performing Clinician Faci lity 12-05-2022 11:23-0400 Body weight 64.41 kg Kristina Older CONTAINER WASHER MACHINE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 Work Phone: [facility] 12-05-2022 11:23-0400 Diastolic blood pressure 58 mm[Hg] Kristina Older CONTAINER WASHER MACHINE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 Work Phone: [facility] 12-05-2022 11:23-0400 Heart rate 78 /min Kristina Older CONTAINER WASHER MACHINE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 Work Phone: [facility] 12-05-2022 11:23-0400 Respiratory rate 20 /min Kristina Older CONTAINER WASHER MACHINE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 Work Phone: [facility] 12-05-2022 11:23-0400 SaO2% (BldA) [Mass fraction] 95 % Kristina Older CONTAINER WASHER MACHINE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 Work Phone: [facility] 12-05-2022 11:23-0400 Systolic blood pressure 128 mm[Hg] Kristina Older CONTAINER WASHER MACHINE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 Work Phone: [facility] 11-28-2022 11:25-0400 Body weight 63.05 kg Kristina Older CONTAINER WASHER MACHINE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 Work Phone: [facility] 11-28-2022 11:25-0400 Diastolic blood pressure 74 mm[Hg] Kristina Older CONTAINER WASHER MACHINE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 Work Phone: [facility] 11-28-2022 11:25-0400 Heart rate 76 /min Kristina Older CONTAINER WASHER MACHINE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 Work Phone: [facility] 11-28-2022 11:25-0400 Respiratory rate 18 /min Kristina Older CONTAINER WASHER MACHINE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 Work Phone: [facility] 11-28-2022 11:25-0400 SaO2% (BldA) [Mass fraction] 95 % Kristina Older CONTAINER WASHER MACHINE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 Work Phone: [facility] 11-28-2022 11:25-0400 Systolic blood pressure 118 mm[Hg] Kristina Older CONTAINER WASHER MACHINE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 Work Phone: [facility] 10-16-2022 12:47-0400 Body height 153.7 cm Migdalia Ugarte MD Work Phone: [facility] 10-16-2022 12:47-0400 Body weight 61.24 kg Migdalia Ugarte MD Work Phone: [facility] 10-16-2022 12:47-0400 Heart rate 73 /min Migdalia Ugarte MD Work Phone: [facility] 10-16-2022 12:47-0400 Respiratory rate 14 /min Migdalia Ugarte MD Work Phone: [facility] 10-16-2022 12:47-0400 SaO2% (BldA) [Mass fraction] 97 % Midgalia Ugarte MD Work Phone: [facility] 10-16-2022 11:38-0400 Body height 153.7 cm Pulm Wstr Work Phone: [facility] 10-16-2022 11:38-0400 Body weight 61.24 kg Pulm Wstr Work Phone: [facility] 10-16-2022 11:38-0400 Heart rate 73 /min Pulm Wstr Work Phone: [facility] 10-16-2022 11:38-0400 Respiratory rate 14 /min Pulm Wstr Work Phone: [facility] 10-16-2022 11:38-0400 SaO2% (BldA) [Mass fraction] 97 % Pulm Wstr Work Phone: [facility] 10-06-2022 14:15-0400 Body weight 58.51 kg Cesar Pradip CONTAINER WASHER MACHINE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 Work Phone: [facility] 10-06-2022 14:15-0400 Diastolic blood pressure 50 mm[Hg] Cesar Pradip CONTAINER WASHER MACHINE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 Work Phone: [facility] 10-06-2022 14:15-0400 Heart rate 69 /min Cesar Pradip CONTAINER WASHER MACHINE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 Work Phone: [facility] 10-06-2022 14:15-0400 SaO2% (BldA) [Mass fraction] 97 % Cesar Pradip CONTAINER WASHER MACHINE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 Work Phone: [facility] 10-06-2022 14:15-0400 Systolic blood pressure 104 mm[Hg] Cesar Pradip CONTAINER WASHER MACHINE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 Work Phone: [facility] 07-23-2022 15:38-0400 Body height 154.9 cm Pacc 1 Work Phone: [facility] 07-23-2022 15:38-0400 Body temperature 98.4 [degF] Pacc 1 Work Phone: [facility] 07-23-2022 15:38-0400 Body weight 58.06 kg Pacc 1 Work Phone: [facility] 07-23-2022 15:38-0400 Diastolic blood pressure 46 mm[Hg] Pacc 1 Work Phone: [facility] 07-23-2022 15:38-0400 Heart rate 50 /min Pacc 1 Work Phone: [facility] 07-23-2022 15:38-0400 Respiratory rate 18 /min Pacc 1 Work Phone: [facility] 06-14-2023 15:38-0400 SaO2% (BldA) [Mass fraction] 97 % Pac 1 Work Phone: [facility] 07-23-2022 15:38-0400 Systolic blood pressure 94 mm[Hg] Pac 1 Work Phone: [facility] 07-16-2022 13:13-0400 Body height 154.9 cm Ashley Parikh MD Work Phone: [facility] 07-16-2022 13:13-0400 Body temperature 97.59 [degF] Ashley Parikh MD Work Phone: [facility] 07-16-2022 13:13-0400 Body weight 56.7 kg Ashley Parikh MD Work Phone: [facility] 07-16-2022 13:13-0400 Diastolic blood pressure 56 mm[Hg] Ashley Parikh MD Work Phone: [facility] 07-16-2022 13:13-0400 Heart rate 66 /min Ashley Parikh MD Work Phone: [facility] 07-16-2022 13:13-0400 Respiratory rate 16 /min Ashley Parikh MD Work Phone: [facility] 07-16-2022 13:13-0400 SaO2% (BldA) [Mass fraction] 97 % Ashley Parikh MD Work Phone: [facility] 07-16-2022 13:13-0400 Systolic blood pressure 120 mm[Hg] Ashley Parikh MD Work Phone: [facility] 05-19-2022 13:05-0400 Body weight 59.88 kg Lizz Older CONTAINER WASHER MACHINE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 Work Phone: [facility] 05-19-2022 13:05-0400 Diastolic blood pressure 70 mm[Hg] Lizz Older CONTAINER WASHER MACHINE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 Work Phone: [facility] 05-19-2022 13:05-0400 Heart rate 80 /min Lizz Older CONTAINER WASHER MACHINE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 Work Phone: [facility] 05-19-2022 13:05-0400 Respiratory rate 16 /min Lizz Older CONTAINER WASHER MACHINE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 Work Phone: [facility] 05-19-2022 13:05-0400 Systolic blood pressure 118 mm[Hg] Lizz Older CONTAINER WASHER MACHINE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 Work Phone: [facility] 05-01-2022 13:52-0400 Body height 154.9 cm Irasema Cardenas MD Work Phone: [facility] 05-01-2022 13:52-0400 Body temperature 97.81 [degF] Irasema Cardenas MD Work Phone: [facility] 05-01-2022 13:52-0400 Body weight 60.87 kg Irasema Cardenas MD Work Phone: [facility] 05-01-2022 13:52-0400 Diastolic blood pressure 72 mm[Hg] Irasema Cardenas MD Work Phone: [facility] 05-01-2022 13:52-0400 Heart rate 82 /min Irasema Cardenas MD Work Phone: [facility] 05-01-2022 13:52-0400 SaO2% (BldA) [Mass fraction] 97 % Irasema Cardenas MD Work Phone: [facility] 05-01-2022 13:52-0400 Systolic blood pressure 120 mm[Hg] Irasema Cardenas MD Work Phone: [facility] 04-30-2022 15:41-0400 Body weight 59.88 kg Kristina Older CONTAINER WASHER MACHINE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 Work Phone: [facility] 04-30-2022 15:41-0400 Diastolic blood pressure 64 mm[Hg] Kristina Older CONTAINER WASHER MACHINE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 Work Phone: [facility] 04-30-2022 15:41-0400 Heart rate 65 /min Kristina Older CONTAINER WASHER MACHINE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 Work Phone: [facility] 04-30-2022 15:41-0400 Respiratory rate 18 /min Kristina Older CONTAINER WASHER MACHINE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 Work Phone: [facility] 04-30-2022 15:41-0400 Systolic blood pressure 116 mm[Hg] Kristina Older CONTAINER WASHER MACHINE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 Work Phone: [facility] 02-21-2022 10:10-0500 Body temperature 97.5 [degF] Kingsley Masci DO Work Phone: [facility] 02-21-2022 10:10-0500 Body weight 59.65 kg Kingsley Masci DO Work Phone: [facility] 02-21-2022 10:10-0500 Diastolic blood pressure 65 mm[Hg] Kingsley Masci DO Work Phone: [facility] 02-21-2022 10:10-0500 Heart rate 63 /min Kingsley Masci DO Work Phone: [facility] 02-21-2022 10:10-0500 Systolic blood pressure 125 mm[Hg] Kingsley Masci DO Work Phone: [facility] 02-13-2022 13:09-0500 Body temperature 98.29 [degF] Mariano Purdy MD, MD Work Phone: [facility] 02-13-2022 13:09-0500 Body weight 60.1 kg Mariano Purdy MD, MD Work Phone: [facility] 02-13-2022 13:09-0500 Diastolic blood pressure 65 mm[Hg] Mariano Purdy MD, MD Work Phone: [facility] 02-13-2022 13:09-0500 Heart rate 70 /min Mariano Purdy MD, MD Work Phone: [facility] 02-13-2022 13:09-0500 Respiratory rate 15 /min Mariano Purdy MD, MD Work Phone: [facility] 02-13-2022 13:09-0500 Systolic blood pressure 143 mm[Hg] Mariano Purdy MD, MD Work Phone: [facility] 01-08-2022 11:26-0500 Body temperature 98.01 [degF] Song Carlson MD Work Phone: [facility] 01-08-2022 11:26-0500 Diastolic blood pressure 62 mm[Hg] Song Carlson MD Work Phone: [facility] 01-08-2022 11:26-0500 Heart rate 69 /min Song Carlson MD Work Phone: [facility] 01-08-2022 11:26-0500 Respiratory rate 16 /min Song Carlson MD Work Phone: [facility] 01-08-2022 11:26-0500 SaO2% (BldA) [Mass fraction] 93 % Song Carlson MD Work Phone: [facility] 01-08-2022 11:26-0500 Systolic blood pressure 135 mm[Hg] Song Carlson MD Work Phone: [facility] 01-03-2022 10:28-0500 Body temperature 98.4 [degF] Kingsley Masci DO Work Phone: [facility] 01-03-2022 10:28-0500 Body weight 62.6 kg Kingsley Masci DO Work Phone: [facility] 01-03-2022 10:28-0500 Diastolic blood pressure 73 mm[Hg] Kingsley Masci DO Work Phone: [facility] 01-03-2022 10:28-0500 Heart rate 73 /min Kingsley Masci DO Work Phone: [facility] 01-03-2022 10:28-0500 Systolic blood pressure 153 mm[Hg] Kingsley Masci DO Work Phone: [facility] 01-03-2022 10:12-0500 Body weight 62.6 kg Lab[facility]Port [facility] Work Phone: [facility] 12-13-2021 10:34-0400 Body temperature 98.4 [degF] Kingsley Masci DO Work Phone: [facility] 12-13-2021 10:34-0400 Body weight 65.09 kg Kingsley Masci DO Work Phone: [facility] 12-13-2021 10:34-0400 Diastolic blood pressure 59 mm[Hg] Kingsley Masci DO Work Phone: [facility] 12-13-2021 10:34-0400 Heart rate 72 /min Kingsley Masci DO Work Phone: [facility] 12-13-2021 10:34-0400 Systolic blood pressure 124 mm[Hg] Kingsley Masci DO Work Phone: [facility] 12-13-2021 10:20-0400 Body temperature 99.1 [degF] Lab[facility] Work Phone: [facility] 12-13-2021 10:20-0400 Diastolic blood pressure 82 mm[Hg] [facility] Work Phone: [facility] 12-13-2021 10:20-0400 Heart rate 75 /min Lab[facility] Work Phone: [facility] 12-13-2021 10:20-0400 Systolic blood pressure 142 mm[Hg] Lab[facility] Work Phone: [facility] 12-10-2021 13:25-0400 Body temperature 97.7 [degF] Mariano Purdy MD, MD Work Phone: [facility] 12-10-2021 13:25-0400 Body weight 65.32 kg Mariano Purdy MD, MD Work Phone: [facility] 12-10-2021 13:25-0400 Diastolic blood pressure 37 mm[Hg] Mariano Purdy MD, MD Work Phone: [facility] 12-10-2021 13:25-0400 Heart rate 64 /min Mariano Purdy MD, MD Work Phone: [facility] 12-10-2021 13:25-0400 Respiratory rate 15 /min Mariano Purdy MD, MD Work Phone: [facility] 12-10-2021 13:25-0400 SaO2% (BldA) [Mass fraction] 96 % Mariano Purdy MD, MD Work Phone: [facility] 12-10-2021 13:25-0400 Systolic blood pressure 100 mm[Hg] Mariano Purdy MD, MD Work Phone: [facility] 12-05-2021 11:55-0400 Body temperature 97.81 [degF] Treatment Wstr Work Phone: [facility] 12-05-2021 11:55-0400 Diastolic blood pressure 73 mm[Hg] Treatment [facility]str Work Phone: [facility] 12-05-2021 11:55-0400 Heart rate 62 /min Treatment [facility] Work Phone: [facility] 12-05-2021 11:55-0400 Respiratory rate 16 /min Treatment [facility] Work Phone: [facility] 12-05-2021 11:55-0400 SaO2% (BldA) [Mass fraction] 98 % Treatment [facility] Work Phone: [facility] 12-05-2021 11:55-0400 Systolic blood pressure 131 mm[Hg] Treatment [facility] Work Phone: [facility] 11-29-2021 11:45-0400 Body temperature 99.81 [degF] Alessandra Feldman MD Work Phone: [facility] 11-29-2021 11:45-0400 Body weight 65.09 kg Alessandra Feldman MD Work Phone: [facility] 11-29-2021 11:45-0400 Diastolic blood pressure 64 mm[Hg] Alessnadra Feldman MD Work Phone: [facility] 11-29-2021 11:45-0400 Heart rate 70 /min Alessandra Feldman MD Work Phone: [facility] 11-29-2021 11:45-0400 SaO2% (BldA) [Mass fraction] 98 % Alessandra Feldman MD Work Phone: [facility] 11-29-2021 11:45-0400 Systolic blood pressure 110 mm[Hg] Alessandra Feldman MD Work Phone: [facility] 11-26-2021 11:42-0400 Body temperature 98.01 [degF] Mariano Purdy MD, MD Work Phone: [facility] 11-26-2021 11:42-0400 Body weight 65.09 kg Mariano Purdy MD, MD Work Phone: [facility] 11-26-2021 11:42-0400 Diastolic blood pressure 51 mm[Hg] Mariano Purdy MD, MD Work Phone: [facility] 11-26-2021 11:42-0400 Heart rate 65 /min Mariano Purdy MD, MD Work Phone: [facility] 11-26-2021 11:42-0400 Respiratory rate 16 /min Mariano Purdy MD, MD Work Phone: [facility] 11-26-2021 11:42-0400 SaO2% (BldA) [Mass fraction] 96 % Mariano Purdy MD, MD Work Phone: [facility] 11-26-2021 11:42-0400 Systolic blood pressure 117 mm[Hg] Mariano Purdy MD, MD Work Phone: [facility] 11-22-2021 11:52-0400 Body temperature 99.19 [degF] Alessandra Feldman MD Work Phone: [facility] 11-22-2021 11:52-0400 Body weight 65.09 kg Alessandra Feldman MD Work Phone: [facility] 11-22-2021 11:52-0400 Diastolic blood pressure 59 mm[Hg] Alessandra Feldman MD Work Phone: [facility] 11-22-2021 11:52-0400 Heart rate 77 /min Alessandra Feldman MD Work Phone: [facility] 11-22-2021 11:52-0400 SaO2% (BldA) [Mass fraction] 100 % Alessandra Feldman MD Work Phone: [facility] 11-22-2021 11:52-0400 Systolic blood pressure 119 mm[Hg] Alessandra Feldman MD Work Phone: [facility] 11-18-2021 09:54-0400 Body temperature 98.71 [degF] Treatment Wstr Work Phone: [facility] 11-18-2021 09:54-0400 Body weight 66 kg Treatment [facility]str Work Phone: [facility] 11-18-2021 09:54-0400 Diastolic blood pressure 95 mm[Hg] Treatment [facility]str Work Phone: [facility] 11-18-2021 09:54-0400 Heart rate 74 /min Treatment [facility]str Work Phone: [facility] 11-18-2021 09:54-0400 Respiratory rate 18 /min Treatment [facility]str Work Phone: [facility] 11-18-2021 09:54-0400 SaO2% (BldA) [Mass fraction] 99 % Treatment [facility] Work Phone: [facility] 11-18-2021 09:54-0400 Systolic blood pressure 120 mm[Hg] Treatment [facility]str Work Phone: [facility] 11-11-2021 09:24-0400 Body temperature 97.5 [degF] Treatment [facility]str Work Phone: [facility] 11-11-2021 09:24-0400 Body weight 67.3 kg Treatment [facility]str Work Phone: [facility] 11-11-2021 09:24-0400 Diastolic blood pressure 81 mm[Hg] Treatment [facility]str Work Phone: [facility] 11-11-2021 09:24-0400 Heart rate 88 /min Treatment [facility]str Work Phone: [facility] 11-11-2021 09:24-0400 SaO2% (BldA) [Mass fraction] 96 % Treatment [facility] Work Phone: [facility] 11-11-2021 09:24-0400 Systolic blood pressure 139 mm[Hg] Treatment [facility]str Work Phone: [facility] 10-30-2021 15:23-0400 Diastolic blood pressure 52 mm[Hg] Ashley Parikh MD Work Phone: [facility] 10-30-2021 15:23-0400 Heart rate 73 /min Ashley Parikh MD Work Phone: [facility] 10-30-2021 15:23-0400 Respiratory rate 24 /min Ashley Parikh MD Work Phone: [facility] 10-30-2021 15:23-0400 SaO2% (BldA) [Mass fraction] 97 % Ashley Parikh MD Work Phone: [facility] 10-30-2021 15:23-0400 Systolic blood pressure 124 mm[Hg] Ashley Parikh MD Work Phone: [facility] 10-25-2021 13:36-0400 Body weight 67.5 kg Elyssa Estevez APRN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 Work Phone: [facility] 10-25-2021 13:36-0400 Diastolic blood pressure 58 mm[Hg] Elyssa Estevez APRN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 Work Phone: [facility] 10-25-2021 13:36-0400 Systolic blood pressure 112 mm[Hg] Elyssa Estevez APRN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 Work Phone: [facility] 10-25-2021 09:41-0400 Body temperature 97.9 [degF] Mariano Purdy MD, MD Work Phone: [facility] 10-25-2021 09:41-0400 Body weight 67.13 kg Mariano Purdy MD, MD Work Phone: [facility] 10-25-2021 09:41-0400 Diastolic blood pressure 63 mm[Hg] Mariano Purdy MD, MD Work Phone: [facility] 10-25-2021 09:41-0400 Heart rate 66 /min Mariano Purdy MD, MD Work Phone: [facility] 10-25-2021 09:41-0400 Respiratory rate 20 /min Mariano Purdy MD, MD Work Phone: [facility] 10-25-2021 09:41-0400 SaO2% (BldA) [Mass fraction] 98 % Mariano Purdy MD, MD Work Phone: [facility] 10-25-2021 09:41-0400 Systolic blood pressure 142 mm[Hg] Mariano Purdy MD, MD Work Phone: [facility] 10-22-2021 10:13-0400 Body weight 66.9 kg Galo Maher MD Work Phone: [facility] 10-22-2021 10:13-0400 Diastolic blood pressure 60 mm[Hg] Galo Maher MD Work Phone: [facility] 10-22-2021 10:13-0400 Heart rate 84 /min Galo Maher MD Work Phone: [facility] 10-22-2021 10:13-0400 Respiratory rate 16 /min Galo Maher MD Work Phone: [facility] 10-22-2021 10:13-0400 SaO2% (BldA) [Mass fraction] 97 % Galo Maher MD Work Phone: [facility] 10-22-2021 10:13-0400 Systolic blood pressure 121 mm[Hg] Galo Maher MD Work Phone: [facility] 10-22-2021 08:49-0400 Body height 154.9 cm Raz Brambila MD Work Phone: [facility] 10-22-2021 08:49-0400 Body temperature 96.49 [degF] Raz Brambila MD Work Phone: [facility] 10-22-2021 08:49-0400 Body weight 66.86 kg Raz Brambila MD Work Phone: [facility] 10-22-2021 08:49-0400 Diastolic blood pressure 67 mm[Hg] Raz Brambila MD Work Phone: [facility] 10-22-2021 08:49-0400 Heart rate 85 /min Raz Brambila MD Work Phone: [facility] 10-22-2021 08:49-0400 Respiratory rate 16 /min Raz Bramibla MD Work Phone: [facility] 10-22-2021 08:49-0400 SaO2% (BldA) [Mass fraction] 97 % Raz Brambila MD Work Phone: [facility] 10-22-2021 08:49-0400 Systolic blood pressure 151 mm[Hg] Raz Brambila MD Work Phone: [facility] 10-17-2021 14:44-0400 Body height 152.5 cm Kingsley [employer] DO Work Phone: [facility] 10-17-2021 14:44-0400 Body temperature 99.9 [degF] Kingsley [employer] DO Work Phone: [facility] 10-17-2021 14:44-0400 Body weight 67.36 kg Kingsley Masci DO Work Phone: [facility] 10-17-2021 14:44-0400 Diastolic blood pressure 57 mm[Hg] Kingsley Masci DO Work Phone: [facility] 10-17-2021 14:44-0400 Heart rate 71 /min Kingsley Masci DO Work Phone: [facility] 10-17-2021 14:44-0400 SaO2% (BldA) [Mass fraction] 98 % Kingsley Masci DO Work Phone: [facility] 10-17-2021 14:44-0400 Systolic blood pressure 125 mm[Hg] Kingsley Masci DO Work Phone: [facility] Encounters Encounter Date Encounter Type Care Provider Facility Start: 01-23-2023 Telephone encounter Ashley tello MD Work Phone: [facility] Procedures Date Procedure Procedure Detail Performing Clinician Start: 12-05-2022 INFLUENZA VACCINE, P RSV FREE, AGE 65+ YR, HIGH DOSE, QUADRIVALENT (FLUZONE HIGH-DOSE) Kristina Older CONTAINER WASHER MACHINE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 Work Phone: Start: 12-05-2022 [employer] COVI D-19 VACCINE ( SEASON) AGE 12+ YR Kristina Older CONTAINER WASHER MACHINE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 Work Phone: Start: 10-16-2022 Co diffusing capacity E janene Ugarte MD Work Phone: Start: 10-06-2022 Urnls dip stick/tabl et rgnt auto w/o microscopy Cesar Pradip CONTAINER WASHER MACHINE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 Work Phone: Start: 07-22-2022 Mri pelvis w/o & w/contrast material Raz Brambila MD Work Phone: Start: 07-22-2022 Ct abdomen w/o contr ast material Raz Brambila MD Work Phone: Start: 07-22-2022 Ct thorax w/contrast material Raz Brambila MD Work Phone: Start: 07-09-2022 Antibody screen ASHLEY PARIKH Plan of Treatment Date Care Activity Detail Author Start: 05-24-2029 Urine microalbumin profile [facility] Start: 10-06-2025 DIABETES SCREEN DIABETES SCREEN [facility] Start: 10-06-2025 Diabetes Screening Diabetes Screenin g [facility] Start: 07-22-2025 DIABETES SCREEN DIABETES SCREEN [facility] Start: 04-30-2025 DIABETES SCREEN DIABETES SCREEN [facility] Start: 02-21-2025 DIABETES SCREEN DIABETES SCREEN [facility] Start: 01-03-2025 DIABETES SCREEN DIABETES SCREEN [facility] Start: 12-13-2024 DIABETES SCREEN DIABETES SCREEN [facility] Start: 12-10-2024 DIABETES SCREEN DIABETES SCREEN [facility] Start: 12-02-2024 DIABETES SCREEN DIABETES SCREEN [facility] Start: 11-25-2024 DIABETES SCREEN DIABETES SCREEN [facility] Start: 11-22-2024 DIABETES SCREEN DIABETES SCREEN [facility] Start: 11-18-2024 DIABETES SCREEN DIABETES SCREEN [facility] Start: 11-08-2024 DIABETES SCREEN DIABETES SCREEN [facility] Start: 10-17-2024 DIABETES SCREEN DIABETES SCREEN [facility] Start: 08-25-2024 Lipid 1996 panel - S ena or Plasma Lipid Screening [facility] Start: 08-25-2024 Lipid panel Lipid Screening [facility] Start: 08-25-2024 LIPID SCREEN LIPID SCREEN [facility] Start: 01-16-2024 BP Controlled (<130/80) BP Con trolled (<130/80) [facility] Start: 01-10-2024 Annual PCP Team Director Channel jabari Disease Visit Annual PCP Team Chronic Disease Visit [facility] Start: 01-10-2024 BP Controlled (<130/80) BP Con trolled (<130/80) [facility] Start: 12-06-2023 Annual PCP Team Director Channel jabari Disease Visit Annual PCP Team Chronic Disease Visit [facility] Start: 12-06-2023 BP Controlled (<130/80) BP Con trolled (<130/80) [facility] Start: 11-29-2023 Annual PCP Team Director Channel jabari Disease Visit Annual PCP Team Chronic Disease Visit [facility] Start: 11-29-2023 BP Controlled (<130/80) BP Con trolled (<130/80) [facility] Start: 10-17-2023 BP CONTROLLED (<130/80) BP CON TROLLED (<130/80) [facility] Start: 10-07-[address]AM [address]ING [address] MAGISTRATE JABARI DISEASE VISIT ANNUAL PCP TEAM CHRONIC DISEASE VISIT [facility] Start: 10-07-2023 BP CONTROLLED (<130/80) BP CON TROLLED (<130/80) [facility] Start: 07-24-2023 BP CONTROLLED (<130/80) BP CON TROLLED (<130/80) [facility] Start: 07-23-2023 Influenza vaccination LUNG CANCER SC REENING [facility] Start: 07-23-2023 Screening for malign ant neoplasm of lung Lung Cancer Screening [facility] Start: 07-17-[address] TEAM [address]ING [address] MAGISTRATE JABARI DISEASE VISIT ANNUAL PCP TEAM CHRONIC DISEASE VISIT [facility] Start: 07-03-2023 ANNUAL PCP TEAM LICENSING COURT MAGISTRATE JABARI DISEASE VISIT ANNUAL PCP TEAM CHRONIC DISEASE VISIT [facility] Start: 07-03-2023 BP CONTROLLED (<130/80) BP CON TROLLED (<130/80) [facility] Start: 05-24-2023 DIABETES SCREEN DIABETES SCREEN [facility] Start: 05-20-2023 ANNUAL PCP TEAM LICENSING COURT MAGISTRATE JABARI DISEASE VISIT ANNUAL PCP TEAM CHRONIC DISEASE VISIT [facility] Start: 05-20-2023 BP CONTROLLED (<130/80) BP CON TROLLED (<130/80) [facility] Start: 05-02-2023 BP CONTROLLED (<130/80) BP CON TROLLED (<130/80) [facility] Start: 05-01-2023 ANNUAL PCP TEAM LICENSING COURT MAGISTRATE JABARI DISEASE VISIT ANNUAL PCP TEAM CHRONIC DISEASE VISIT [facility] Start: 05-01-2023 BP CONTROLLED (<130/80) BP CON TROLLED (<130/80) [facility] Start: 02-21-2023 BP CONTROLLED (<130/80) BP CON TROLLED (<130/80) [facility] Start: 01-30-2023 Covid-19 Vaccine () Covid-19 Vaccine () [facility] Start: 12-13-2022 BP CONTROLLED (<130/80) BP CON TROLLED (<130/80) [facility] Start: 12-10-2022 BP CONTROLLED (<130/80) BP CON TROLLED (<130/80) [facility] Start: 11-29-2022 BP CONTROLLED (<130/80) BP CON TROLLED (<130/80) [facility] Start: 11-26-2022 BP CONTROLLED (<130/80) BP CON TROLLED (<130/80) [facility] Start: 11-22-2022 BP CONTROLLED (<130/80) BP CON TROLLED (<130/80) [facility] Start: 10-30-2022 ANNUAL PCP TEAM LICENSING COURT MAGISTRATE JABARI DISEASE VISIT ANNUAL PCP TEAM CHRONIC DISEASE VISIT [facility] Start: 10-30-2022 BP CONTROLLED (<130/80) BP CON TROLLED (<130/80) [facility] Start: 10-25-2022 BP CONTROLLED (<130/80) BP CON TROLLED (<130/80) [facility] Start: 10-22-2022 BP CONTROLLED (<130/80) BP CON TROLLED (<130/80) [facility] Start: 10-17-2022 BP CONTROLLED (<130/80) BP CON TROLLED (<130/80) [facility] Start: 10-10-2022 Covid-19 Vaccine ( season) Covid-19 Vaccine ( season) [facility] Start: 10-10-2022 Influenza vaccination C [facility] Start: 10-06-2022 End: 12-06-2022 25-hydroxyvitamin D3 [Mass/volume] in Serum or Plasma [facility] Work Phone: Immunizations Immunization Date Immunization Notes Care Provider Fa cili 12-05-2022 COVID-19 vaccine, ag e 12+ yr, season (PFIZER-BIONTECH) Kristina Older CONTAINER WASHER MACHINE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 Work Phone: [facility] 12-05-2022 influenza (HD-IIV4) vaccine, age 65+ yr, high dose, quadrivalent, PF (FLUZONE HIGH-DOSE) Kristina Older CONTAINER WASHER MACHINE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 Work Phone: [facility] 11-15-2020 influenza, seasonal, injectable, preservative free Kristina Older CONTAINER WASHER MACHINE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 Work Phone: [facility] 11-15-2020 influenza virus vacc ine, unspecified formulation Ashley Parikh MD Work Phone: [facility] 05-11-2020 COVID-19 vaccine, ag e 12+ yr (PFIZER-BIONTECH - PURPLE TOP) Ashley Parikh MD Work Phone: [facility] Work Phone: 04-20-2020 COVID-19 vaccine, ag e 12+ yr (PFIZER-BIONTECH - PURPLE TOP) Ashley Parikh MD Work Phone: [facility] 11-24-2019 Seasonal, quadrivale nt, recombinant, injectable influenza vaccine, preservative free Kristina Older CONTAINER WASHER MACHINE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 Work Phone: [facility] 05-25-2019 tetanus toxoid, redu gifty diphtheria toxoid, and acellular pertussis vaccine, adsorbed Kristina Older CONTAINER WASHER MACHINE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 Work Phone: [facility] 09-13-2018 influenza, injectabl e, quadrivalent, contains preservative Kristina Older CONTAINER WASHER MACHINE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 Work Phone: [facility] 12-14-2017 influenza, seasonal, injectable Kristina Older CONTAINER WASHER MACHINE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 Work Phone: [facility] 10-21-2017 influenza, seasonal, injectable Kristina Older CONTAINER WASHER MACHINE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 Work Phone: [facility] 12-10-2016 influenza, seasonal, injectable Kristina Older CONTAINER WASHER MACHINE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 Work Phone: [facility] 11-15-2016 influenza, high dose seasonal, preservative-free Ashley Parikh MD Work Phone: [facility] 04-25-2015 pneumococcal conjuga te vaccine, 13 valent Ashley Parikh MD Work Phone: [facility] Work Phone: 12-05-2013 influenza, seasonal, injectable Kristina Older CONTAINER WASHER MACHINE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 Work Phone: [facility] 11-13-2013 pneumococcal conjuga te vaccine, 7 valent Kristina Older CONTAINER WASHER MACHINE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 Work Phone: [facility] 11-13-2013 pneumococcal Conjuga te, unspecified formulation Ashley Parikh MD Work Phone: [facility] Work Phone: 07-16-2012 pneumococcal polysaccharide vaccine, 23 valent Kristina Older CONTAINER WASHER MACHINE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 Work Phone: [facility] 07-16-2012 tetanus toxoid, redu gifty diphtheria toxoid, and acellular pertussis vaccine, adsorbed Kristina Older CONTAINER WASHER MACHINE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 Work Phone: [facility] 12-27-2008 novel influenza-H1N1 -09, preservative-free, injectable Kristina Older CONTAINER WASHER MACHINE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 Work Phone: [facility] Payers Date Payer Category Payer Medicare 2021 Medicare UHC AARP MEDICAR E UHC AARP MEDICARE HMO [id number] 2021-Present [phone] [address] [address] [place] [address] O [id number] 2021 Medicare [id number] 2018 Private Health Insurance [id number] 2017 Medicare [id number] 1945 Unknown [id number] Social History Date Type Detail Facility Start: 07-16-2017 End: 07-23-2022 Tobacco smoking status NHIS Smokes tobacco daily [facility] Start: 1957 History of tobacco use Cigarette Smo ker [facility] Start: 04-08-2021 End: 01-15-2023 Alcohol intake Current non-drinker of alcohol (finding) [facility] Start: 07-16-2017 End: 12-17-2021 Tobacco Comment Reduced to 1 PPD from 4 PPD. I can't tell you I'll ever quit. Parents smoked in childhood home, and has lived with smokers as adult. [facility] Start: 1945 Sex Assigned At Not on file C [facility] Start: 05-26-2021 End: 01-03-2022 Exposure to SARS-CoV-2 (event) Not sure [facility] Start: 07-12-2021 End: 10-17-2021 Exposure to SARS-CoV-2 (event) Unable to assess [facility] Start: 07-16-2017 End: 11-28-2022 Cigarettes smoked current (pack per day) - Reported 4 [facility] Start: 07-16-2017 End: 07-23-2022 Tobacco use and exposure Smokeless tobacco non-user [facility] Work Phone: Start: 10-25-2021 Tobacco Comment Reduced to 2 P PD from 4 PPD. I can't tell you I'll ever quit. Parents smoked in childhood home, and has lived with smokers as adult. [facility] Start: 12-10-2021 Tobacco Comment Reduced to 1/4 PPD from 4 PPD. I can't tell you I'll ever quit. Parents smoked in childhood home, and has lived with smokers as adult. [facility] Start: 07-23-2022 End: 11-28-2022 Tobacco use panel [facility] National Score (1-10 0), lower number is lower risk 99 [facility] Clinical Notes 07-24-2017 to 01-23-2023 Telephone Encounter - Cesar Byrnes APRN.CNP - 01/23/2023 10:59 AM ESTTelephone Encounter - Ayanna Mitchell RN - 01/23/2023 10:10 AM ESTPatient InstructionsPatient InstructionsPatient Instructions Note Date & Type Note Facility 01-23-2023 Miscellaneous Notes Agree with urgent eval in ED for the issues. Daughter, Shyanne, reports patient had another fall this morning. Shyanne doesn't think patient has injury but not sure. Shyanne wasn't present during fall, her sister was and reported to Shyanne. Shyanne reports something is wrong with patient since her first fall on . Reports patient has not walked since then. Reports today's fall is the 3rd fall patient has had since . Patient c/o pain in right hip- to the point where patient will not walk. Reports patient just sits in her chair, and voids/has BM in her diaper. Reports patient use to walk to the bathroom. Reports patient has sat so long she has become weak, and Shyanne believes patient is now to weak to walk. Shyanne wants patient seen today, but is unable to help patient into car- patient is too heavy and unable to help Shyanne get her into car. Advised Shyanne to call [place] [address]. Shyanne agreeable. documented in this encounter [facility] 01-15-2023 Note [facility] 01-13-2023 Instructions Cesar Byrnes APRN.CNP - 01/13/2023 4:08 PM EST BONE MINERAL DENSITY PATIENT INSTRUCTIONS ========= Bone mineral density testing measures the amount of calcium in certain parts of your bones. This information determines how strong your bones are. The test is used to detect osteoporosis, a disease in which the bone's mineral content and density are low, increasing a person's risk of fractures. The lumbar spine (lower back) and the hip are the skeletal sites usually examined. For the test, remember that: 1. You cannot take this test if you are . 2. Eat a normal diet on the day of the test. 3. Take your medications as you normally would. 4. DO NOT take calcium supplements (such as Tums) for 24 hours before the test. 5. On the day of the test, leave valuables (jewelry or credit cards) at home. 6. The test should be performed prior to oral, rectal or IV contrast studies, or at least 7 days after any of these studies. For the test, you may be asked to wear a hospital gown. You will lie on your back, on a padded table, in a comfortable position. Generally, you can resume your usual activities immediately. documented in this encounter [facility] 01-13-2023 Miscellaneous Notes Bone density ordered, please help with scheduling. Thanks Spoke with daughter Shyanne and explain same. She is unsure if patient has had a bone density. Not opposed to completing this. Once orders in place will have a PSS call to scheduled. Please let patient know that repeat xray shows no hip fracture. It does show the start of bone weakening, osteopenia. Has she ever had a bone density scan that she knows of? We have no records of one being done that I can see. documented in this encounter [facility] 01-09-2023 Note [facility] 01-09-2023 Note [facility] 01-05-2023 Miscellaneous Notes Patient has been identified by name and date of : Pharmacy phones for refill(s): Requested Prescriptions Pending Prescriptions Disp Refills gabapentin (NEURONTIN) 100 mg capsule 540 capsule 0 Sig: Take 2 capsules by mouth three times a day for 90 days. Date of last office visit in primary care: 12/05/2022 Date of next office visit in primary care: Visit date not found Last 2 Encounter Wt Readings: Date: Wt: 12/05/2022 64.4 kg (142 lb) 11/28/2022 63 kg (139 lb) Previous labs/tests for medication: Not applicable Please advise. Thank you. Jaquelin Villegas LPN. documented in this encounter [facility] 12-05-2022 Note [facility] 12-05-2022 Instructions Kristina Nur APRN.BRAULIO - 12/05/2022 11:40 AM EDT Increase furosemide (Lasix) to 40 mg daily. Call for refill if needed. documented in this encounter [facility] 12-05-2022 History of Presen t illness Narrative CC: Patient presents with: 1 WEEK FOLLOW UP HPI Charissa Wallace is a 77 year old female who presents today for above. Patient was seen last week for ER follow-up for CHF. She had been started on Lasix 20 mg daily which she has been taking as prescribed. She reports no improvement in leg swelling today. SOB continues as well and has gained a few pounds since last week. She is elevating her legs but does not wear compression socks. Denies chest pain, palpitations, PND, orthopnea. No new or worsening symptoms. She is scheduled in two weeks with cardiology at the [facility] Review of Systems See HPI PAST MEDICAL HISTORY Diagnosis Date Anal cancer (HCC) Buerger's disease (HCC) CAD (coronary artery disease) 7 stents, [facility]. 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 did not show signficant obstruction Obstructive sleep apnea 12/21/2014 BiPAP Positive PPD Pulmonary embolism (HCC) 11/2021 Syncope 10/27/2014 Vertigo Vocal cord polyps PAST SURGICAL HISTORY Procedure Laterality Date APPENDECTOMY CHOLECYSTECTOMY Cholecystectomy CORONARY ARTERY BYP W/VEIN & ARTERY GRAFT 3 VEIN CABG, three grafts CT BRAIN WO CONTRAST 10/24/2014 mild to moderate diffuse atrophy EKG 12 LEAD 10/25/2014 sinus bradycardia LIG/TRNSXJ FLP TUBE ABDL/VAG APPR UNI/BI Tubal ligation POLYSOMNOGRAM(DIAG) 56816 12/07/2014 THYROIDECTOMY TOTAL/COMPLETE total TONSILLECTOMY PRIMARY/SECONDARY <AGE 12 Tonsillectomy TRANSCATH STENT ADDN VESSEL,PERCUT -2009 Transcath stent addn vessel percut, x3 TRANSCATH STENT INIT VESSEL,PERCUT Transcath stent init vessel percut ALLERGIES Bupropion, Dilaudid [Other], Morphine Hcl, Nubain [Nalbuphine Hcl], Orphenadrine, Penicillins, and Ultram [Tramadol Hcl] MEDICATIONS mirtazapine (REMERON) 15 mg tablet take one tablet by mouth at bedtime furosemide (LASIX) 20 mg tablet Take 20 mg by mouth once daily. tiotropium (SPIRIVA WITH HANDIHALER) 18 mcg inhalation capsule Inhale 1 capsule as instructed once daily. USE WITH HANDIHALER. albuterol HFA (PROAIR HFA) 90 mcg/actuation inhaler Inhale 2 Puffs as instructed every 4 hours as needed. oxybutynin XL (DITROPAN XL) 5 mg 24 hr tablet Take 1 tablet by mouth once daily. levothyroxine (SYNTHROID) 75 mcg tablet Take 1 tablet by mouth once daily. buPROPion SR (WELLBUTRIN SR) 100 mg 12 hr tablet Take 1 tablet by mouth once daily. pantoprazole DR (PROTONIX) 40 mg tablet Take 1 tablet by mouth twice daily. atenolol (TENORMIN) 50 mg tablet Take 1 tablet by mouth once daily. atorvastatin (LIPITOR) 40 mg tablet Take 1 tablet by mouth daily at bedtime. For cholesterol. lisinopril (ZESTRIL) 20 mg tablet Take 1 tablet by mouth once daily. amLODIPine (NORVASC) 10 mg tablet Take 1 tablet by mouth once daily. clopidogrel (PLAVIX) 75 mg tablet Take 1 tablet by mouth once daily. Every other day. gabapentin (NEURONTIN) 100 mg capsule Take 2 capsules by mouth three times daily for 90 days. diphenoxylate-atropine (LOMOTIL) 2.5-0.025 mg per tablet Take 1 tablet by mouth four times daily as needed for diarrhea for up to 30 days. Walker misc Use one daily Melatonin 5 mg cap Take 1 capsule by mouth at bedtime as needed. FAMILY HISTORY Problem Relation Age of Onset Cancer Mother Lung Coronary Artery Disease Mother Diabetes Mother Ischemic Heart Disease Mother CHF. Stroke Mother other (TB) Mother Alcohol/Drug Father Cancer Father Diabetes Father Ischemic Heart Disease Father Massive heart attack Emphysema Sister Cancer Sister Breast in 2 sisters. Coronary Artery Disease Sister Diabetes Sister Ischemic Heart Disease Sister No Known Problems Brother Social History Tobacco Use Smoking status: Every Day Packs/day: 1.50 Years: 58.00 Additional pack years: 0.00 Total pack years: 87.00 Types: Cigarettes Smokeless tobacco: Never Tobacco comments: Reduced to 1 PPD from 4 PPD. I can't tell you I'll ever quit. Parents smoked in childhood home, and has lived with smokers as adult. Vaping Use Vaping Use: Never used Substance Use Topics Alcohol use: No Drug use: No BP 128/58 Pulse 78 Resp 20 Wt 64.4 kg (142 lb) SpO2 95% BMI 27.28 kg/m Physical Exam Vitals reviewed. Constitutional: General: She is not in acute distress. Appearance: She is not ill-appearing. Cardiovascular: Rate and Rhythm: Normal rate and regular rhythm. Pulses: Normal pulses. Pulmonary: Effort: Pulmonary effort is normal. Breath sounds: No wheezing, rhonchi or rales. Musculoskeletal: Right lower le+ Pitting Edema present. Left lower le+ Pitting Edema present. Neurological: Mental Status: She is alert. ASSESSMENT/PLAN: 1. Bilateral lower extremity edema - ICD9: 782.3, ICD10: R60.0 (primary diagnosis) Persisting. No new or worsening symptoms. Increase Lasix to 40 mg daily. Follow-up with cardiology as scheduled. 2. Shortness of breath - ICD9: 786.05, ICD10: R06.02 As above 3. Encounter for immunization - ICD9: V03.89, ICD10: Z23 - INFLUENZA VACCINE, PRSV FREE, AGE 65+ YR, HIGH DOSE, QUADRIVALENT (FLUZONE HIGH-DOSE) - Snaptracs COVID-19 VACCINE ( SEASON) AGE 12+ YR Prescription instructions reviewed with patient as applicable. Potential red flag symptoms discussed with the patient. Reviewed appropriate action plan to take if red flag symptoms occur. Patient agreeable to treatment plan. Kristina Nur APRN.CNP documented in this encounter [facility] 12-02-2022 Miscellaneous Notes Patient has been identified by name and date of : No Patient phones for refill(s): Requested Prescriptions Pending Prescriptions Disp Refills mirtazapine (REMERON) 15 mg tablet [Pharmacy Med Name: mirtazapine 15 mg tablet] 30 tablet 2 Sig: take one tablet by mouth at bedtime Date of last office visit in primary care: 11/28/2022 Date of next office visit in primary care: 12/05/2022 Last 2 Encounter Wt Readings: Date: Wt: 11/28/2022 63 kg (139 lb) 10/16/2022 61.2 kg (135 lb) Previous labs/tests for medication: Not applicable Please advise. Thank you. Charla Villanueva. documented in this encounter [facility] 11-28-2022 Note [facility] 11-28-2022 Instructions Kristina Nur APRN.CNP - 11/28/2022 11:51 AM EDT CAUSES OF LEG SWELLING HOW TO REDUCE LEG SWELLING Sitting with your legs hanging down Elevate your toes above your nose! Sit in a recliner with your legs up. Avoid sitting for long periods of time Standing for long periods of time Wear compression stockings. Apply them first things in the morning and remove them at bedtime. Avoid standing for long periods of time Eating foods high in salt Avoid canned foods, look for low sodium or no salt added foods Medical conditions that cause you to retain fluid: Congestive heart failure, Venous Stasis Take medications as ordered. Take diuretics (water pills) early in the day Sleeping in a chair with you legs hanging down Place a pillow or several phone books between the mattress and box spring of your bed. Sleep in a hospital bed or electric adjustable bed documented in this encounter [facility] 11-28-2022 History of Presen t illness Narrative CC: Patient presents with: ED Follow-up: Pain in legs and CHF HPI Charissa Wallace is a 77 year old female who presents today for above. Patient presented to [facility] ED on 11/27 for leg swelling, pain and SOB. CBC showed stable chronic anemia, BMP unremarkable, BNP slightly elevated, chest x-ray was normal. She was started on lasix 20 mg daily for leg swelling and given IV dose yesterday, she has not filled prescription yet. Patient and daughter both state they were told she has CHF but this is not in the ER report. She denies history of CHF that she is aware of. She does not wear compression socks or elevate her legs much. She has COPD, seen by pulmonology last month. She was diagnosed with rectal cancer last year. She had stress test that was normal. Last echocardiogram was April 2022. She denies worsening SOB or SOB at rest, PND, orthopnea, significant weight gain, palpitations, chest pain. Review of Systems Constitutional: Negative for activity change, appetite change, chills, diaphoresis, fatigue, fever and unexpected weight change. Respiratory: Negative for cough, chest tightness and wheezing. PAST MEDICAL HISTORY Diagnosis Date Anal cancer (HCC) Buerger's disease (HCC) CAD (coronary artery disease) 7 stents, [facility]. 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 did not show signficant obstruction Obstructive sleep apnea 12/21/2014 BiPAP Positive PPD Pulmonary embolism (HCC) 11/2021 Syncope 10/27/2014 Vertigo Vocal cord polyps PAST SURGICAL HISTORY Procedure Laterality Date APPENDECTOMY CHOLECYSTECTOMY Cholecystectomy CORONARY ARTERY BYP W/VEIN & ARTERY GRAFT 3 VEIN CABG, three grafts CT BRAIN WO CONTRAST 10/24/2014 mild to moderate diffuse atrophy EKG 12 LEAD 10/25/2014 sinus bradycardia LIG/TRNSXJ FLP TUBE ABDL/VAG APPR UNI/BI Tubal ligation POLYSOMNOGRAM(DIAG) 82321 12/07/2014 THYROIDECTOMY TOTAL/COMPLETE total TONSILLECTOMY PRIMARY/SECONDARY <AGE 14 Tonsillectomy TRANSCATH STENT ADDN VESSEL,PERCUT -2009 Transcath stent addn vessel percut, x3 TRANSCATH STENT INIT VESSEL,PERCUT Transcath stent init vessel percut ALLERGIES Bupropion, Dilaudid [Other], Morphine Hcl, Nubain [Nalbuphine Hcl], Orphenadrine, Penicillins, and Ultram [Tramadol Hcl] MEDICATIONS furosemide (LASIX) 20 mg tablet Take 20 mg by mouth once daily. tiotropium (SPIRIVA WITH HANDIHALER) 18 mcg inhalation capsule Inhale 1 capsule as instructed once daily. USE WITH HANDIHALER. albuterol HFA (PROAIR HFA) 90 mcg/actuation inhaler Inhale 2 Puffs as instructed every 4 hours as needed. mirtazapine (REMERON) 15 mg tablet Take 1 tablet by mouth daily at bedtime. oxybutynin XL (DITROPAN XL) 5 mg 24 hr tablet Take 1 tablet by mouth once daily. levothyroxine (SYNTHROID) 75 mcg tablet Take 1 tablet by mouth once daily. buPROPion SR (WELLBUTRIN SR) 100 mg 12 hr tablet Take 1 tablet by mouth once daily. pantoprazole DR (PROTONIX) 40 mg tablet Take 1 tablet by mouth twice daily. atenolol (TENORMIN) 50 mg tablet Take 1 tablet by mouth once daily. atorvastatin (LIPITOR) 40 mg tablet Take 1 tablet by mouth daily at bedtime. For cholesterol. lisinopril (ZESTRIL) 20 mg tablet Take 1 tablet by mouth once daily. amLODIPine (NORVASC) 10 mg tablet Take 1 tablet by mouth once daily. clopidogrel (PLAVIX) 75 mg tablet Take 1 tablet by mouth once daily. Every other day. gabapentin (NEURONTIN) 100 mg capsule Take 2 capsules by mouth three times daily for 90 days. diphenoxylate-atropine (LOMOTIL) 2.5-0.025 mg per tablet Take 1 tablet by mouth four times daily as needed for diarrhea for up to 30 days. Walker misc Use one daily Melatonin 5 mg cap Take 1 capsule by mouth at bedtime as needed. FAMILY HISTORY Problem Relation Age of Onset Cancer Mother Lung Coronary Artery Disease Mother Diabetes Mother Ischemic Heart Disease Mother CHF. Stroke Mother other (TB) Mother Alcohol/Drug Father Cancer Father Diabetes Father Ischemic Heart Disease Father Massive heart attack Emphysema Sister Cancer Sister Breast in 2 sisters. Coronary Artery Disease Sister Diabetes Sister Ischemic Heart Disease Sister No Known Problems Brother Social History Tobacco Use Smoking status: Every Day Packs/day: 1.50 Years: 58.00 Additional pack years: 0.00 Total pack years: 87.00 Types: Cigarettes Smokeless tobacco: Never Tobacco comments: Reduced to 1 PPD from 4 PPD. I can't tell you I'll ever quit. Parents smoked in childhood home, and has lived with smokers as adult. Vaping Use Vaping Use: Never used Substance Use Topics Alcohol use: No Drug use: No BP 118/74 Pulse 76 Resp 18 Wt 63 kg (139 lb) SpO2 95% BMI 26.70 kg/m Physical Exam Vitals reviewed. Constitutional: General: She is not in acute distress. Appearance: She is not ill-appearing. Cardiovascular: Rate and Rhythm: Normal rate and regular rhythm. Pulses: Normal pulses. Heart sounds: Normal heart sounds. No murmur heard. Pulmonary: Effort: Pulmonary effort is normal. Breath sounds: Normal breath sounds and air entry. No wheezing, rhonchi or rales. Musculoskeletal: Right lower le+ Pitting Edema present. Left lower le+ Pitting Edema present. Comments: Lower legs are tender with palpation. Venous stasis changes present. Skin: General: Skin is warm and dry. Neurological: Mental Status: She is alert. Psychiatric: Mood and Affect: Mood normal. DATA REVIEWED: Outside chart from [facility] reviewed. Most recent echocardiogram ASSESSMENT/PLAN: 1. Bilateral lower extremity edema - ICD9: 782.3, ICD10: R60.0 (primary diagnosis) BNP slightly elevated in ER. Last echocardiogram in April without acute findings other than pulmonary hypertension. Suspect swelling is more due to venous insufficiency. Continue with Lasix as prescribed. Follow-up in one week for close monitoring Referred to cardiology for further work-up if needed 2. Shortness of breath - ICD9: 786.05, ICD10: R06.02 Chronic, stable. Multifactorial including COPD. See plan above 3. S/P CABG (coronary artery bypass graft) - ICD9: V45.81, ICD10: Z95.1 - CONSULT TO CARDIOLOGY 4. Coronary artery disease involving coronary bypass graft of [place] heart without angina pectoris - ICD9: 414.05, ICD10: I25.810 - CONSULT TO CARDIOLOGY 5. Pulmonary hypertension (HCC) - ICD9: 416.8, ICD10: I27.20 Follow-up with pulmonology as scheduled Prescription instructions reviewed with patient as applicable. Potential red flag symptoms discussed with the patient. Reviewed appropriate action plan to take if red flag symptoms occur. Patient agreeable to treatment plan. Kristina Nur APRN.CNP documented in this encounter [facility] 11-27-2022 Miscellaneous Notes Noted, agree. Obtain ER records when available. Protocol recommends see PCP in 4 hours or go to the ER. Pt was told to go to the ER dut to her heart history and severity of her swelling. Care plan reviewed with patient. Patient voices understanding. Advised patient that if symptoms get worse to call 911. Reason for Disposition SEVERE leg swelling (e.g., swelling extends above knee, entire leg is swollen, weeping fluid) Answer Assessment - Initial Assessment Questions 1. ONSET: The swelling started about a week ago. 2. LOCATION: Both legs are swollen to above the knee. 3. SEVERITY: - Localized: Small area of swelling localized to one leg. - MILD pedal edema: Swelling limited to foot and ankle, pitting edema < 1/4 inch (6 mm) deep, rest and elevation eliminate most or all swelling. - MODERATE edema: Swelling of lower leg to knee, pitting edema > 1/4 inch (6 mm) deep, rest and elevation only partially reduce swelling. - SEVERE edema: Swelling extends above knee, facial or hand swelling present. Severe swelling, it extends above the knees, pitting. 4. REDNESS: The swelling looks red and the skin is tight. 5. PAIN: The swelling is painful to touch 6. FEVER: Denies 7. CAUSE: Pt has heart issues. 8. MEDICAL HISTORY: Pt has a history of cancer and heart failure. 9. RECURRENT SYMPTOM: Pt has had leg swelling before. 10. OTHER SYMPTOMS: Pt denies chest pain and difficulty breathing. 11. : Postmenopausal Protocols used: Leg Swelling and [id number] documented in this encounter [facility] 10-16-2022 Note [facility] 10-16-2022 Note [facility] 10-16-2022 Nurse Note Intake information documented in the prior visit with COLEMAN Rogers today. documented in this encounter [facility] 10-16-2022 History of Presen t illness Narrative Images from the original note were not included. . Respiratory [place] Note Patient name: Charissa Wallace PCP: Ashley Parikh MD CC: chronic cough HPI: Charissa Wallace 77 year old female current smoker with PMH significant for moderate COPD, GERD, CAD s/p CABG and stents, hypothyroidism, HTN, JAIME non-compliant with BiPAP, h/o positive PPD, dementia, depression, vocal cord polyps, HLD, anal cancer 09/2021 s/p chemo and radiation, Buerger's disease, PE 11/2021, last seen in pulmonary clinic by Dr. Bolaños in 2018. Discovered to have anal cancer last year when she presented to [facility] with chest pain and noted to be anemic. 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 Completed XRT 12/2021, mitomycin-c/5-FU. No evidence of metastatic disease on chest CT. She has quite a bit of fatigue, feeling as if she has not fully recovered from her treatment. Her main respiratory complaint is cough. She has a cough that mainly dry. Cough occurs throughout the day. No GERD or post nasal drip. Denies exertional limiting SOB, wheezing. She has albuterol but does not believe it has been helpful. She is a current smoker and has not desire to quit. DATA: PFT: PFTs show minimal small airways obstruction and low diffusion Labs: Component Ref Range & Units 7 d ago Alpha 1 Antitrypsin 90 - 200 mg/dL 173 Imaging / Diagnostic Studies: DATE OF EXAM: Jul 22 2022 12:01PM [facility] 0539 - CT CHEST W IVCON / PROCEDURE REASON: Malignant neoplasm of anus (HCC) Comparison: Prior PET/CT dated 10/23/2021 RESULT: Lines, tubes, and devices: None. Lung parenchyma and airways: Patent central airways with bronchial thickening and mild upper lobe emphysema. Mosaic attenuation likely from chronic small airway inflammation. Peripheral reticulation and groundglass opacity greater in the lower lobes likely interstitial lung disease. Minimal patchy opacity at the right lung base likely atelectasis. No dominant nodules. Pleural space: No pleural effusion. No pleural thickening. Lower neck, lymph nodes, and mediastinum: The imaged thyroid gland is normal. No new or pathologically enlarged lymphadenopathy in the supraclavicular, axillary, mediastinal, or hilar regions.. Prominent subcentimeter mediastinal lymph nodes including 8 mm right paratracheal node unchanged. Heart, pericardium, and thoracic vessels: The thoracic aorta and main pulmonary artery are normal in caliber. The cardiac chambers are normal in size. [place] coronary calcifications and prior CABG. No pericardial effusion or thickening. Bones and soft tissues: Mild changes of the thoracic spine. Sternotomy wires are aligned along the midline with intact sternum. No destructive bone lesion. Chest wall is unremarkable. Upper abdomen: Upper abdominal findings within dedicated report. I personally reviewed the images which shows mild emphysema and early ILD PAST MEDICAL HISTORY Diagnosis Date Anal cancer (HCC) Buerger's disease (HCC) CAD (coronary artery disease) 7 stents, [facility]. 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 USE WITH HANDIHALER. albuterol HFA (PROAIR HFA) 90 mcg/actuation inhaler Inhale 2 Puffs as instructed every 4 hours as needed. mirtazapine (REMERON) 15 mg tablet Take 1 tablet by mouth daily at bedtime. (Patient not taking: Reported on 10/16/2022) oxybutynin XL (DITROPAN XL) 5 mg 24 hr tablet Take 1 tablet by mouth once daily. levothyroxine (SYNTHROID) 75 mcg tablet Take 1 tablet by mouth once daily. buPROPion SR (WELLBUTRIN SR) 100 mg 12 hr tablet Take 1 tablet by mouth once daily. pantoprazole DR (PROTONIX) 40 mg tablet Take 1 tablet by mouth twice daily. atenolol (TENORMIN) 50 mg tablet Take 1 tablet by mouth once daily. atorvastatin (LIPITOR) 40 mg tablet Take 1 tablet by mouth daily at bedtime. For cholesterol. lisinopril (ZESTRIL) 20 mg tablet Take 1 tablet by mouth once daily. amLODIPine (NORVASC) 10 mg tablet Take 1 tablet by mouth once daily. clopidogrel (PLAVIX) 75 mg tablet Take 1 tablet by mouth once daily. Every other day. gabapentin (NEURONTIN) 100 mg capsule Take 2 capsules by mouth three times daily for 90 days. diphenoxylate-atropine (LOMOTIL) 2.5-0.025 mg per tablet Take 1 tablet by mouth four times daily as needed for diarrhea for up to 30 days. Walker misc Use one daily LORazepam (ATIVAN) 1 mg tablet Take 1 tablet by mouth four times daily as needed for up to 180 days. (Patient taking differently: Take 1 mg by mouth four times daily.) Melatonin 5 mg cap Take 1 capsule by mouth at bedtime as needed. Social History Tobacco Use Smoking status: Every Day Packs/day: 1.50 Years: 58.00 Additional pack years: 0.00 Total pack years: 87.00 Types: Cigarettes Smokeless tobacco: Never Tobacco comments: Reduced to 1 PPD from 4 PPD. I can't tell you I'll ever quit. Parents smoked in childhood home, and has lived with smokers as adult. 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 Stroke Mother other (TB) Mother Alcohol/Drug Father Cancer Father Diabetes Father Ischemic Heart Disease Father Massive heart attack Emphysema Sister Cancer Sister Breast in 2 sisters. Coronary Artery Disease Sister Diabetes Sister Ischemic Heart Disease Sister No Known Problems Brother PAST SURGICAL HISTORY Procedure Laterality Date APPENDECTOMY CHOLECYSTECTOMY Cholecystectomy CORONARY ARTERY BYP W/VEIN & ARTERY GRAFT 3 VEIN CABG, three grafts CT BRAIN WO CONTRAST 10/24/2014 mild to moderate diffuse atrophy EKG 12 LEAD 10/25/2014 sinus bradycardia LIG/TRNSXJ FLP TUBE ABDL/VAG APPR UNI/BI Tubal ligation POLYSOMNOGRAM(DIAG) 31838 12/07/2014 THYROIDECTOMY TOTAL/COMPLETE total TONSILLECTOMY PRIMARY/SECONDARY <AGE 14 Tonsillectomy TRANSCATH STENT ADDN VESSEL,PERCUT -2009 Transcath stent addn vessel percut, x3 TRANSCATH STENT INIT VESSEL,PERCUT Transcath stent init vessel percut PMH, Social history, family history and surgical history reviewed and updated in EMR REVIEW OF SYSTEMS: CONSTITUTIONAL: No fevers, chills, nightsweats, unintended weight loss. Fatigue HEENT: Denies nasal congestion/sinus symptoms, problematic problems. EYES: No visual CARDIOVASCULAR: No chest pain, palpitations, orthopnea. Edema PULM: See HPI GI: No dysphagia/odynophagia, problematic reflux, abdominal pain or abdominal bleeding. : No urinary complaints, including dysuria, gross hematuria or NEURO: No new balance problems, peripheral weakness/paresthesias or numbness of concern. Mild dementia MUSC-SKEL: No joint pain, swelling, or erythema. PSY: Depression INTEGUMENTARY: No new skin changes, rashes. Easy bruising PHYSICAL EXAMINATION: Pulse 73 Resp 14 Ht 5' .5 (1.54m) Wt 135 lb (61.2kg) SpO2 97% BMI 25.92 kg/(m^2). General Appearance: Appears older than stated age. Skin: Skin color, texture, turgor normal, no suspicious rashes or lesions. Head: Normocephalic, no masses, lesions, tenderness or abnormalities. Eyes: Sclera, conjunctiva normal. Oropharynx: Poor dentition. Neck: No JVD, no masses. Lungs: Not labored, frequent cough, no crackles, scattered rhonchi. Heart: RRR, no murmur. Extremities: Edema, no clubbing. Neurologic: Alert and oriented, no focal findings, ambulates with cane. Lymph Nodes: No cervical lymphadenopathy and No supraclavicular lymphadenopathy. Assessment/Plan: Emphysema -Mild emphysema on CT and no significant large airways obstruction on PFT -Started Spiriva with continued albuterol use -Smoking cessation strongly encouraged -Overnight oximetry for oxygen assessment Chronic bronchitis/COPD -See #1 -Smoking cessation Cigarette smoker -Current smoker with chronic bronchitis -She has no desire to quit -At risk for primary lung cancer ILD -Very minimal changes with peripheral reticular markings. Could be early IPF. 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 Chief Complaint Patient presents with: Dementia: getting worse since Chemo and radiation treatment HPI Charissa Wallace is a 77 year old female established patient of Dr. Parikh. Here today for follow up, needs refills addressed, accompanied by her daughter. Concerns today include that dementia is getting worse since chemo and radiation treatment. She was treated for a malignant neoplasm of the anus. Notes lately more trouble falling asleep, trouble staying asleep. On a sleeping pill but not always helpful. She and family do not notice more behaviors in the evening time. Has had some mood changes. Last few months was diagnosed with cancer, boyfriend , moved in with daughter. Has had some episodes of being more combative. More depression lately. Also admits to anxiety. Her medications were reviewed today and her list is now up to date. Medications Current Outpatient Medications Medication Sig gabapentin (NEURONTIN) 100 mg capsule Take 2 capsules by mouth three times daily for 90 days. albuterol HFA (PROAIR HFA) 90 mcg/actuation inhaler Inhale 2 Puffs as instructed every 6 hours as needed. LORazepam (ATIVAN) 1 mg tablet Take 1 tablet by mouth four times daily as needed for up to 180 days. (Patient taking differently: Take 1 mg by mouth four times daily.) Melatonin 5 mg cap Take 1 capsule by mouth at bedtime as needed. mirtazapine (REMERON) 15 mg tablet Take 1 tablet by mouth daily at bedtime. oxybutynin XL (DITROPAN XL) 5 mg 24 hr tablet Take 1 tablet by mouth once daily. levothyroxine (SYNTHROID) 75 mcg tablet Take 1 tablet by mouth once daily. buPROPion SR (WELLBUTRIN SR) 100 mg 12 hr tablet Take 1 tablet by mouth once daily. pantoprazole DR (PROTONIX) 40 mg tablet Take 1 tablet by mouth twice daily. atenolol (TENORMIN) 50 mg tablet Take 1 tablet by mouth once daily. atorvastatin (LIPITOR) 40 mg tablet Take 1 tablet by mouth daily at bedtime. For cholesterol. lisinopril (ZESTRIL) 20 mg tablet Take 1 tablet by mouth once daily. amLODIPine (NORVASC) 10 mg tablet Take 1 tablet by mouth once daily. clopidogrel (PLAVIX) 75 mg tablet Take 1 tablet by mouth once daily. Every other day. diphenoxylate-atropine (LOMOTIL) 2.5-0.025 mg per tablet Take 1 tablet by mouth four times daily as needed for diarrhea for up to 30 days. Walker misc Use one daily No current facility-administered medications for this visit. ALLERGIES Allergen Reactions Bupropion Other: See Comments high doses can not tolerate Dilaudid [Other] Mental Status Change Morphine Hcl Mental Status Change Nubain [Nalbuphine * Orphenadrine Penicillins Rash Ultram [Tramadol Hc* Rash ACTIVE PROBLEM LIST S/P Cabg (Coronary Artery Bypass Graft) - 12/12/2009 (B priority) Comment: CABG 06/16/[address] Bond, at [facility]. Per OSH cath report, the 2 SVG's are down but the Clarke is patent Here for cosnideration of PCI vs redoCABG. - will need to figure out a better way to open the OSH cath films, they don't load to [facility] (disk is in envelope in green chart). Cad (Coronary Artery Disease) of Bypass Graft - 12/12/2009 (B priority) Comment: She sees DR. Cruz at [facility] done, She had a heart Cath recently by Dr. Alberto, 2013, oct, that is because she has chest pain and and off. She has stents in her heart and had a Bypass, before the stents, Recent cath according to the patient was good. Vocal Cord Polyp - 12/12/2009 (C priority) Comment: She had a polypectomy, of the vocal cords 1999. 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 No formal testing records Copd With Chronic Bronchitis (Hcc) - 07/24/2017 Obstructive Sleep Apnea - 12/21/2014 Comment: Testing was done in Feb 2015, She needs a bilevel of 20/14 or a cpap of 13/14. I doubt the compliance of the patient. 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 She is smoking still and we advised quitting in view of her problem Recurrent Major Depressive Disorder (Hcc) - 03/16/2014 Comment: She has major depression since her back injury. She is also is very anxious. Tobacco Dependence - 02/07/2014 Comment: She is smoking a pack of cigarettes a day, and a little over. Using the vapour too. Hypothyroidism - 02/07/2014 Comment: She had a thyroidectomy does not know if that was cancer or not. She feels tired all the time. 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 She fell and twisted her neck and back. And ever since she has been having issues with the neck and back. For a while her pain was under control, but now she is complaining of too much pain since it got worse few years ago. She was on vicodin, percocet and oxycontin. Used to arthuro DR. Luo, who gave her shots in her back and her neck. She does not go to DR. luo any more, he discharged her from his service. She says that happened because, there was some confrontation with her daughters and the doctor. She has 3 pinched nerves in the back, which might require back surgery, but she wants to avoid it. Gerd (Gastroesophageal Reflux Disease) - 02/07/2014 Comment: Patient has gerd which is very severe, had 2 endoscopies in the past to check for Barretts. Postsurgical Percutaneous Transluminal Coronary Angioplasty Status - 01/21/2010 Abnormal Mammogram, Unspecified - 10/12/2009 Social History Tobacco Use Smoking status: Every Day Packs/day: 1.50 Years: 58.00 Additional pack years: 0.00 Total pack years: 87.00 Types: Cigarettes Smokeless tobacco: Never Tobacco comments: Reduced to 1 PPD from 4 PPD. I can't tell you I'll ever quit. Parents smoked in childhood home, and has lived with smokers as adult. Vaping Use Vaping Use: Never used Substance Use Topics Alcohol use: No Drug use: No Review of Systems Respiratory: Negative. Cardiovascular: Negative. Psychiatric/Behavioral: Positive for behavioral problems, dysphoric mood and sleep disturbance. The patient is nervous/anxious. OBJECTIVE BP 104/50 Pulse 69 Wt 129 lb (58.5kg) SpO2 97% Physical Exam Vitals and nursing note reviewed. Constitutional: General: She is awake. She is not in acute distress. Appearance: Normal appearance. She is well-developed and well-groomed. She is not ill-appearing, toxic-appearing or diaphoretic. HENT: Head: Normocephalic. Right Ear: External ear normal. Left Ear: External ear normal. Nose: Nose normal. Eyes: General: Vision grossly intact. Conjunctiva/sclera: Conjunctivae normal. Pupils: Pupils are equal, round, and reactive to light. Neck: Vascular: No JVD. Trachea: Trachea normal. Cardiovascular: Rate and Rhythm: Normal rate and regular rhythm. Pulses: Normal pulses. Heart sounds: Normal heart sounds. No murmur heard. Pulmonary: Effort: Pulmonary effort is normal. No accessory muscle usage, prolonged expiration or respiratory distress. Breath sounds: Normal breath sounds. Musculoskeletal: Cervical back: Neck supple. Skin: General: Skin is warm and dry. Capillary Refill: Capillary refill takes less than 2 seconds. Neurological: General: No focal deficit present. Mental Status: She is alert and oriented to person, place, and time. Mental status is at baseline. Comments: In talking with patient she is aware of person, place, situation. Psychiatric: Attention and Perception: Attention and perception normal. Mood and Affect: Mood and affect normal. Speech: Speech normal. Behavior: Behavior normal. Behavior is cooperative. Thought Content: Thought content normal. Cognition and Memory: Cognition and memory normal. Judgment: Judgment normal. ASSESSMENT/PLAN: 1. Recurrent major depressive disorder, remission status unspecified (HCC) - ICD9: 296.30, ICD10: F33.9 (primary diagnosis) She presents with minimal signs of worsening dementia but has symptoms more consistent with depression resulting in mood swings. Will start mirtazapine and see if helpful. Can check labs and urine to make sure no other issues that might be causing the mood swings and concern for worsening dementia from family. - MIRTAZAPINE 15 MG TABLET 2. Multi-infarct dementia, unspecified dementia severity, unspecified whether behavioral, psychotic, or mood disturbance or anxiety (HCC) - ICD9: 290.40, ICD10: F01.50 See #1 - UA DIP, URINE (POC) - UA DIP B/O - CBC + DIFF - COMP METABOLIC PANEL - VITAMIN B12 BLOOD - MAGNESIUM BLD - TSH BLD 3. Vitamin D deficiency - ICD9: 268.9, ICD10: E55.9 - VITAMIN D 25 HYDROXY 4. Overactive bladder - ICD9: 596.51, ICD10: N32.81 Stable. - OXYBUTYNIN CHLORIDE ER 5 MG TABLET,EXTENDED RELEASE 24 HR 5. Malignant neoplasm of anus (HCC) - ICD9: 154.3, ICD10: C21.0 - PANTOPRAZOLE 40 MG TABLET,DELAYED RELEASE 6. Coronary artery disease involving coronary bypass graft of [place] heart without angina pectoris - ICD9: 414.05, ICD10: I25.810 Stable. - ATENOLOL 50 MG TABLET - ATORVASTATIN 40 MG TABLET - CLOPIDOGREL 75 MG TABLET 7. Primary hypertension - ICD9: 401.9, ICD10: I10 - Controlled - Continue current medications - Recommend home blood pressure monitoring, to bring results to next visit - Encouraged sodium restriction, DASH or Mediterranean diet - Recommend regular aerobic exercise - ATENOLOL 50 MG TABLET - LISINOPRIL 20 MG TABLET - AMLODIPINE 10 MG TABLET 8. Mixed hyperlipidemia - ICD9: 272.2, ICD10: E78.2 - Continue current medications - Counseled on healthy diet and regular exercise - ATORVASTATIN 40 MG TABLET 9. COPD with chronic bronchitis (HCC) - ICD9: 491.20, ICD10: J44.9 - [id number] BL 10. Gastroesophageal reflux disease, unspecified whether esophagitis present - ICD9: 530.81, ICD10: K21.9 - PANTOPRAZOLE 40 MG TABLET,DELAYED RELEASE 11. Acquired hypothyroidism - ICD9: 244.9, ICD10: E03.9 - Instructed patient on importance of taking on an empty stomach either first thing in the morning or at bedtime. - check TSH today - LEVOTHYROXINE 75 MCG TABLET 12. Encounter for therapeutic drug monitoring - ICD9: V58.83, ICD10: Z51.81 - CBC + DIFF - COMP METABOLIC PANEL - VITAMIN B12 BLOOD - MAGNESIUM BLD - TSH BLD I spent a total of 42 minutes on the date of the service which included preparing to see the patient, [id number] patient care, completing clinical documentation, obtaining and/or reviewing separately obtained history, performing a medically appropriate examination, counseling and educating the patient/family/caregiver, ordering medications, tests, or procedures, communicating with other HCPs (not separately reported), independently interpreting results (not separately reported), communicating results to the patient/family/caregiver, and care coordination (not separately reported). Portions of this note have been entered by ancillary staff. I have reviewed and when necessary edited, so that they are an adequate record of my encounter with this patient Please note that parts of this document were created using voice recognition software and therefore may contain grammatical errors. Patient verbalizes understanding of instructions from today's visit and in agreement with treatment plan. Questions answered. Agrees to call the office if questions, concerns of issues with acute symptoms not improving or if they worsen. See diagnoses and orders for additional plan(s). Allergies and medications were reviewed, list was updated, and refills given if needed. Past medical, surgical, social, and family history reviewed and updated as appropriate. Encouraged proper diet & exercise as well as compliance with taking medications. Age-appropriate health preventative measures were discussed. Return in about 4 weeks (around 11/03/2022) for recheck on new medication.. Cesar Byrnes APRN-BRAULIO documented in this encounter [facility] 10-01-2022 Miscellaneous Notes Needs to reschedule canceled appointment in July Patient of Dr. Parikh. Will send request to Dr. Montgomery for review. Thank you. Medication refill requested by Pharmacy Requested Prescriptions Pending Prescriptions Disp Refills gabapentin (NEURONTIN) 100 mg capsule 540 capsule 1 Sig: Take 2 capsules by mouth three times daily for 180 days. Last encounter with this provider: 07/16/2022 Next appt: Visit date not found Pat Turner RN documented in this encounter [facility] 08-30-2022 Note [facility] 08-29-2022 Note [facility] 08-14-2022 Miscellaneous Notes Patient has been identified by name and date of : Yes, Kylie Llanos RN Date 08/14/2022 Time 4:52 pm Pharmacy phones for refill(s): Requested Prescriptions Pending Prescriptions Disp Refills lisinopril (ZESTRIL) 20 mg tablet 30 tablet 1 Sig: Take 1 tablet by mouth once daily. Date of last office visit with pcp: 07/16/2022 Future appt: none Last 2 Encounter Wt Readings: Date: Wt: 07/23/2022 58.1 kg (128 lb) 07/16/2022 56.7 kg (125 lb) Previous labs/tests for medication: Blood Pressure: BUN (mg/dL) Date Value 07/22/2022 12 05/23/2020 16 Sodium (mmol/L) Date Value 07/22/2022 140 05/23/2020 141 Last 1 Encounter BP Readings: Date: BP: 07/28/2022 151/68 Liver Function: ALT (U/L) Date Value 07/22/2022 8 05/23/2020 17 AST (U/L) Date Value 07/22/2022 12 05/23/2020 22 Please advise. Thank you. Kylie Llanos RN documented in this encounter [facility] 07-31-2022 Miscellaneous Notes Attempted to call the patient with her biopsy results showing no cancer. Will need to continue to follow. The colon polyp was an adenoma and she will need to continue screening/surveillance. Called several times and attempted to leave a message- The Mailbox is full and cannot. Raz Brambila MD, FACS, FASCRS comptometrist Plastic Duplicator, Department [place] [address] documented in this encounter [facility] 07-28-2022 Note [facility] 07-25-2022 Miscellaneous Notes Received inpatient cardiac consult as patient has never been seen through outpatient. Copy given to Dian Prakash CNP and original sent to [facility] through [employer]. Abena Chapman LPN Fax request sent to [facility] requesting last office visit and cardiac testing for upcoming procedure 07/28/22. Abena Chapman LPN Please request last OV and cardiac records from [facility]. DOS 07/28/2022 documented in this encounter [facility] 07-24-2022 Miscellaneous Notes SPECIALTY CARE COORDINATION FOLLOW-UP NOTE Called patient. No answer. Left detailed vm stating that bowel prep will need to be completed for surgery and instructions were sent in [employer] message on 07/22. If she has any questions call the office. Office number provided. Irlanda Barker RN July 24, 2022 documented in this encounter [facility] 07-23-2022 Instructions Dian Prakash APRN.BRAULIO - 07/23/2022 3:35 PM EDT PATIENT PREOPERATIVE INSTRUCTIONS No ref. provider found has scheduled you for your procedure at this surgery center: [facility] Scheduling Office: [phone] --[address] [place] [address]. Please read below carefully for your personalized instructions. Dietary Restrictions: - Follow bowel prep instructions given from surgeon's office - You may have clear liquids (water, clear juices such as apple juice or gatorade, carbonated beverages, clear tea, black coffee, jello) until 2 hours before scheduled arrival at facility. No red/purple coloring and no creamer/sugar Medications: Unless instructed differently below, stay on all of your medications until your surgery. Approved medications to take the morning of surgery with a sip of water: albuterol (PROAIR) inhaler, amLODIPine (NORVASC), atenolol (TENORMIN), atorvastatin (LIPITOR), gabapentin (NEURONTIN), levothyroxine (SYNTHROID, oxybutynin (DITROPAN), pantoprazole DR (PROTONIX), lorazepam (Ativan) if needed, Aspirin 81mg Do not take lisinopril (ZESTRIL, PRINIVIL) the morning and/or evening prior surgery If you take any medications for erectile dysfunction-Cialis (Tadalafil), Levitra, Staxyn (Vardenafil) Viagra (Sildenenafil please do not take these for 48 hours before surgery. If you start any new medications after today's visit, please contact the surgeon's office. Blood Thinning Medications: - Stop NSAIDS (Ibuprofen, Advil, Aleve, Motrin, Celebrex, Mobic, etc.) 7 days before surgery, as directed by your surgeon. - Stop Vitamin E, ALL multi-vitamins, herbals and dietary supplements 7 days before surgery. - You may take Tylenol (Acetaminophen) or any of your pain medications that do not contain aspirin or NSAIDS as needed. - STOP PLAVIX 5 days prior to upcoming surgery Important Reminders: - Candy, mints, gum and tobacco products are NOT permitted the morning of surgery. - Hearing aids, dentures and glasses may be worn the morning of surgery. - NO jewelry, body piercings, makeup, hairpins or contacts are to be worn the day of surgery. If you develop symptoms such as a fever, cold, or flu, or have other changes to your health within TWO DAYS of scheduled surgery or the morning of surgery, please contact the surgery center above. Personal Belongings: -Please have photo ID and insurance cards. -If you do not have a copy of advance directives on file with us, please bring a copy with you on the day of surgery. - Leave ALL valuables and money at home or with family members. For Outpatient Procedures: - YOU MUST HAVE A RESPONSIBLE ENT CONSULTANT TAKE YOU HOME. A CYTOTECHNOLOGIST/CYTOLOGY SUPERVISOR OR MANAGER KNOWLEDGE CANNOT BE MADE A RESPONSIBLE ENT CONSULTANT. - We recommend that a responsible person stays with you overnight to take care of you. - You cannot stay in a hotel alone after outpatient surgery. You will not be permitted to have your surgery, if you do not have someone to take care of you. Arrival Time for Surgery: - To obtain your arrival time for surgery, call your physician's office the day before your surgery. - If your surgery is scheduled for Thursday, call the Thursday before. Your surgeon s material scheduler will tell you what time to call the office. - If you have not reached the departmental material scheduler by 5 P.M., call [phone] after 5 P.M. the day before your surgery. Please be aware that emergency situations arise, which may delay or change your surgical time. If this happens, we will notify you as soon as possible and regret any inconvenience. If you already have an Advance Directive, please fax a copy to [phone] or email to for it to be added to your chart. If you do not have an Advance Directive, you can find the appropriate form and more information at [email or web address]. We recommend that you complete the Advance Directive form found on the website and bring it with you the day of your surgery. It can be witnessed and scanned into your chart that day. Dian Prakash APRN.BRAULIO documented in this encounter [facility] 07-23-2022 History and physical note HISTORY AND PHYSICAL EXAMINATION SERVICE DATE: 07/23/2022 SERVICE TIME: 12:12 PM PRIMARY CARE PHYSICIAN: Ashley Parikh MD REASON FOR VISIT: Charissa Wallace is a 77 year old female who is scheduled for Procedure(s): EXAM UNDER ANESTHESIA RECTAL with biopsy (N/A) COLONOSCOPY (N/A) at the request of Dr. Raz Brambila MD for consultation. My final recommendation will be communicated back to the requesting physician by way of shared medical record or letter. Subjective The patient has the following: ACTIVE PROBLEM LIST Abnormal Mammogram, Unspecified S/P Cabg (Coronary Artery Bypass Graft) Cad (Coronary Artery Disease) of Bypass Graft Hypertension Vocal Cord Polyp Postsurgical Percutaneous Transluminal Coronary Angioplasty Status Tobacco Dependence Hypothyroidism Chronic Pain Gerd (Gastroesophageal Reflux Disease) Ortiz's Disease Recurrent Major Depressive Disorder (Hcc) Anxiety Obstructive Sleep Apnea Copd With Chronic Bronchitis (Hcc) History of Dementia Anal Cancer (Hcc) Anemia Mucositis Due to Antineoplastic Therapy History of Pulmonary Embolus (Pe) Functional Diarrhea Dehydration Mixed Hyperlipidemia Rls (Restless Legs Syndrome) History of Transient Ischemic Attack (Tia) COVID-19 Immunization Status Overdue - COVID-19 VACCINE (4 - Booster for Pfizer series) Overdue since 05/16/2021 03/21/2021 Imm Admin: COVID-19 original vaccine, age 12+ yr, monovalent (PFIZER-BIONTECH - CARRILLO TOP) 05/11/2020 Imm Admin: COVID-19 original vaccine, age 12+ yr, monovalent (PFIZER-BIONTECH - PURPLE TOP) 04/20/2020 Imm Admin: COVID-19 original vaccine, age 12+ yr, monovalent (PFIZER-BIONTECH - PURPLE TOP) CHIEF COMPLAINT: Pre-op exam HPI: Charissa Wallace is a 77 year old seen for PAC due to scheduled above surgery because of anal cancer. 06/17/2022, Dr. Harsha Hoodgrace Wallace is a 77 year old female with a hx of CAD (hx cabg and PCI), HTN, PE who presents with an anal cancer midline anterior and about 4cm x 2 cm in size. Completed radiation and chemotherapy 01/08/22. She is presenting for an opinion on the removal of the rectal cancer after treatment. She incidentally was to have surgery on hier left hip for avascular necrosis but was denied clearance by the orthopedic surgeon and referred to pain management. She have been receiving shots for this and this has helped. She denies any weight loss, nausea, vomiting, chills, fever. She denies any hematochezia, or changes in stool consistency or frequency. Denies rene blood while having bowel movements. 05/01/[address] Cardenas- gen surg IMPRESSION: AVN of left hip, history of anal cancer PLAN: I have discussed the above with the patient and her daughter who is present with her. At this point in time, I detect no clinical reason to preclude hip surgery for this patient. The patient is in severe pain and cannot ambulate at all. The daughter states that she was told that the patient required clearance from colorectal surgery to proceed with hip surgery. I told them to pursue hip surgery as soon as they can - given the patient's pain. The patient already requires a cardiology evaluation prior to surgery. Neither of the above has been set up yet as they were awaiting this appointment. I have told them to proceed immediately with cardiology and orthopedic surgery consultation. The patient acknowledges the above. 02/20/[address] 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 -Pathology demonstrated in situ squamous cell carcinoma but exam suggested more extensive disease. -Saw gynecology. Pap test negative. -PET scan and MRI were negative for metastatic disease. -Second cycle of chemotherapy abbreviated. She only received approximately 48 hours of infusional 5-fluorouracil. No Mitomycin-C. -Completed radiation 01/08. -On exam she appears to have response. I cannot determine degree of response on my exam. Plan: -Follow up with Dr. Brambila in March. -OV with labs in about 3-4 months. -CTs annually beginning January this year and up to 3 years. (I26.99) Pulmonary embolism -No anginal symptoms. Plan: -Continue apixaban 5 mg twice daily. CAD Assessment: -She remains on Plavix daily. -No symptoms of angina. -She has not yet followed up with cardiology. Plan: -Advised her to contact [facility] for follow-up appointment. She acknowledged she would do so. 02/13/[address] Purdy ASSESSMENT AND PLAN: Clinically stable. She is recovering well from acute chemoradiation treatment effects. She has urinary frequency and incontinence. She had recent UTI confirmed by urine culture treated with 1 week course of Macrobid. I will get urine culture to ensure that UTI is cleared. She is scheduled to see Dr. Washburn next week and she will contact Dr. Raz Brambila's office to make a follow-up appointment. 11/01/21 MDT Recommended Treatment: chemo and radiation Clinical Trial Candidate: Yes DECREASE TRIAL Other Discussion: Pathology review with LYLY. She has not started therapy yet. May be a candidate for DECREASE Trial. May need to have repeat biopsy. Primary therapy is still chemoradiation and follow up. I have spoken to the patient about this and she is due to follow up with Dr Washburn. REVIEW OF SYSTEMS: General: No weight loss, malaise or fevers. Neurological: +memory issues +RLS, on rx Positive for: TIA. Negative for: cerebral palsy, LICENSE CLERK tumor, dementia, headaches, hemiplegia, multiple sclerosis, Parkinson's disease, seizures and strokes. Respiratory: Positive for: COPD (rx as needed) and tobacco use (1.5ppd). Negative for: asthma, pneumonia within 6 weeks, URI < 2 weeks and obstructive sleep apnea. Cardiovascular: Positive for: anticoagulation therapy, CAD, DVT/PE, hyperlipidemia, hypertension and open heart surgery Patient's last office visit with classroom technology technician, ADRIANNA, The following tests and/or procedures were performed: cardiac stents. Negative for: arrhythmia, atrial fibrillation, chest pain, CHF, congenital heart defect, recent HI, murmur/valvular heart disease and valve surgery. GI: Positive for: dysphagia (due to vocal cord polyps, s/p excision 2017) and GERD (on rx) Negative for: abdominal pain, hepatitis, irritable bowel syndrome, inflammatory bowel disease, liver disease, nausea, pancreatitis, vomiting and ETOH >2 drinks/day. : Positive for: renal failure. Patient's renal failure is chronic. Negative for: urinary incontinence, nephrolithiasis and urinary tract infection. HEALTH SERVICES DIRECTOR: Negative for abnormal vaginal bleeding, abnormal vaginal discharge. Endocrine: Positive for: hypothyroidism. Negative for: diabetes mellitus. Hematology: Positive for: anemia, iron deficiency anemia, bruises/bleeds easily and chronic anti-coagulation/platelet meds. Patient is on anti-coagulation/platelet medication(s): Plavix. Negative for: transfusion of at least 4 units within 72 hours prior to surgery. Oncology: See HPI. Psych: Positive for: anxiety (on rx) and depression. Musculoskeletal: Uses cane/walker at home Positive for: back pain and joint pain. Skin: Negative for lesions, rash and itching. PAST MEDICAL HISTORY Diagnosis Date CAD (coronary artery disease) 7 stents, [facility]. 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 did not show signficant obstruction Obstructive sleep apnea 12/21/14 Positive PPD Syncope 10/27/2014 Vertigo Vocal cord polyp PAST SURGICAL HISTORY Procedure Laterality Date APPENDECTOMY CHOLECYSTECTOMY Cholecystectomy CORONARY ARTERY BYP W/VEIN & ARTERY GRAFT 3 VEIN CABG, three grafts CT BRAIN WO CONTRAST 10/24/2014 mild to moderate diffuse atrophy EKG 12 LEAD 10/25/2014 sinus bradycardia LIG/TRNSXJ FLP TUBE ABDL/VAG APPR UNI/BI Tubal ligation POLYSOMNOGRAM(DIAG) 77713 12/07/2014 THYROIDECTOMY TOTAL/COMPLETE total TONSILLECTOMY PRIMARY/SECONDARY <AGE 12 Tonsillectomy TRANSCATH STENT ADDN VESSEL,PERCUT Transcath stent addn vessel percut, x3 TRANSCATH STENT INIT VESSEL,PERCUT Transcath stent init vessel percut FAMILY HISTORY Problem Relation Age of Onset Cancer Mother Lung Coronary Artery Disease Mother Diabetes Mother Ischemic Heart Disease Mother CHF. Stroke Mother other (TB) Mother Alcohol/Drug Father Cancer Father Diabetes Father Ischemic Heart Disease Father Massive heart attack Emphysema Sister Cancer Sister Breast in 2 sisters. Coronary Artery Disease Sister Diabetes Sister Ischemic Heart Disease Sister No Known Problems Brother Social History Tobacco Use Smoking status: Every Day Packs/day: 1.50 Years: 58.00 Pack years: 87.00 Types: Cigarettes Smokeless tobacco: Never Tobacco comments: Reduced to 1 PPD from 4 PPD. I can't tell you I'll ever quit. Parents smoked in childhood home, and has lived with smokers as adult. Vaping Use Vaping Use: Never used Substance Use Topics Alcohol use: No Drug use: No Prior to Admission medications as of 07/23/22 8387 Medication Sig Last Dose Taking albuterol HFA (PROAIR HFA) 90 mcg/actuation inhaler Inhale 2 Puffs as instructed every 6 hours as needed. Taking Yes lisinopril (ZESTRIL) 20 mg tablet Take 1 tablet by mouth once daily. Taking Yes pantoprazole DR (PROTONIX) 40 mg tablet Take 1 tablet by mouth twice daily. Taking Yes amLODIPine (NORVASC) 10 mg tablet Take 1 tablet by mouth once daily. Taking Yes atorvastatin (LIPITOR) 40 mg tablet Take 1 tablet by mouth daily at bedtime. For cholesterol. Taking Yes diphenoxylate-atropine (LOMOTIL) 2.5-0.025 mg per tablet Take 1 tablet by mouth four times daily as needed for diarrhea for up to 30 days. Yes oxybutynin XL (DITROPAN XL) 5 mg 24 hr tablet Take 1 tablet by mouth once daily. Taking Yes atenolol (TENORMIN) 50 mg tablet Take 1 tablet by mouth once daily. Taking Yes levothyroxine (SYNTHROID) 75 mcg tablet Take 1 tablet by mouth once daily. Taking Yes ondansetron (ZOFRAN) 8 mg tablet Take 1 tablet by mouth every 12 hours as needed for nausea/vomiting. Taking Yes clopidogrel (PLAVIX) 75 mg tablet Take 1 tablet by mouth once daily. Every other day. Taking Yes Walker misc Use one daily Taking Yes LORazepam (ATIVAN) 1 mg tablet Take 1 tablet by mouth four times daily as needed for up to 180 days. Patient taking differently: Take 1 mg by mouth four times daily. Taking Yes gabapentin (NEURONTIN) 100 mg capsule Take 2 capsules by mouth three times daily for 180 days. Taking Yes zzrumtptptWHCKN-tbnkfi-kfytrecif (BMX 1:1:1) 1:1:1 liqd Take 5 mL by mouth every 6 hours as needed. Taking Yes Melatonin 5 mg cap Take 1 capsule by mouth at bedtime as needed. Taking Yes fluticasone (FLONASE) 50 mcg/actuation nasal spray Use 2 Sprays in each nostril once daily. Rinse mouth after use. Taking Yes buPROPion SR (WELLBUTRIN SR) 100 mg 12 hr tablet oxyCODONE IR (ROXICODONE) 5 mg immediate release tablet Take 1-2 tablets by mouth every 8 hours as needed for pain for up to 7 days. Medication Comments documented by Tania Cameron RN on 05/17/2022 at 0801. 05/17/2022 7;45 New medication over last one month per patient: Oxycodone. Tania Cameron RN ALLERGIES Allergen Reactions Bupropion Other: See Comments high doses can not tolerate Dilaudid [Other] Mental Status Change Morphine Hcl Mental Status Change Nubain [Nalbuphine * Orphenadrine Penicillins Rash Ultram [Tramadol Hc* Rash Objective PHYSICAL EXAM: General: alert and oriented (x3) and healthy appearance. Pertinent negatives noted - not distressed. Skin: normal color, no rash or lesions. HEENT: EOM intact and pupils equal round. Pertinent negatives noted - no carotid bruit. Cardiovascular: regular rate and rhythm, normal S1 and S2, no rub, murmurs, or gallop. Respiratory: normal breath sounds, no wheezes or crackles. No chest wall deformity or tenderness. Abdomen: soft. Pertinent negatives noted - not tender. Extremities: no deformity, no edema or tenderness, no joint swelling or clubbing. Neurological: normal cognition and motor skills. Gait normal. No weakness or sensory deficit. PAIN ASSESSMENT: VITALS: BP 94/46 Pulse 50 Temp (Src) 98.4 (Temporal) Resp 18 Ht 5' 1 (1.55m) Wt 128 lb (58.1kg) SpO2 97% BMI 24.20 kg/(m^2). Diagnostic tests reviewed for today's visit: Lab Value Units Date High Low HB 10.8 g/dL 07/22/2022 15.5 11.5 HCT 35.9 % 07/22/2022 46.0 36.0 WBC 8.69 k/uL 07/22/2022 11.00 3.70 PLT 270 k/uL 07/22/2022 400 150 NA 140 mmol/L 07/22/2022 144 136 K 4.5 mmol/L 07/22/2022 5.1 3.7 GLUC 105 mg/dL 07/22/2022 99 74 BUN 12 mg/dL 07/22/2022 21 7 CREAT 0.74 mg/dL 07/22/2022 0.96 0.58 PTSEC No results within date range. INR No results within date range. APTT No results within date range. ALT 8 U/L 07/22/2022 38 7 AST 12 U/L 07/22/2022 35 13 TBILI 0.4 mg/dL 07/22/2022 1.3 0.2 TSH 1.260 mIU/L 07/09/2022 4.200 0.270 Lab Value Units Date High Low HCGQT No results within date range. UHCG No results within date range. HCG, BODY* No results within date range. Lab Value Units Date High Low ABORHD No results within date range. ABSCREEN No results within date range. Hemoglobin A1C (%) Date Value 05/23/2020 6.1 04/13/2014 5.7 12/13/2009 5.6 06/10/2006 5.4 Recent Results (from the past 8760 hour(s)) ECG COMPLETE Collection Time: 07/23/22 3:55 PM Result Value Ventricular Rate 66 Atrial Rate 66 P-R Interval 190 QRS Duration 74 QT Interval 428 QTC Calculation (Bazett) 448 Calculated P [place] 71 Calculated R [place] 43 Calculated T [place] 5 Impression NORMAL SINUS RHYTHM NORMAL ECG Confirmed by JESENIA CLARK DO ([id number]) on 07/24/2022 12:33:08 PM No results found for this or any previous visit (from the past 50957 hour(s)). Assessment Patient has the following medical conditions which may affect corry-operative course: History of pulmonary embolus (PE) Assessment: hx 11/2021, daily tx'd with Varun, following Dr. Washburn, hematology at [facility] History of dementia Assessment: no current tx, family present during OV reports memory issues Anemia Assessment: on rx Hemoglobin (g/dL) Date Value 07/22/2022 10.8 05/23/2020 15.0 Hematocrit (%) Date Value 07/22/2022 35.9 05/23/2020 44.0 WBC (k/uL) Date Value 07/22/2022 8.69 05/23/2020 12.38 Recurrent major depressive disorder (HCC) Assessment: and anxiety, stable on rx per pt COPD with chronic bronchitis (HCC) Assessment: rx as needed, daily smoker 1.5ppd Obstructive sleep apnea Assessment: non-compliant with CPAP Tobacco dependence Assessment: 1.5ppd Ortiz's disease Assessment: hx, continued smoking despite disease process explanation by PCP Hypothyroidism Assessment: stable on rx per pt Vocal cord polyp Assessment: s/p polypectomy, intermittently dysphagia since excision CAD (coronary artery disease) of bypass graft Assessment: hx CABG and cardiac stents, daily Plavix, instructed to hold and replace with ASA 81mg, following [facility], records requested. Instructed to hold Plavix 5 days and replaced with ASA 81mg. Ac letter faxed GERD (gastroesophageal reflux disease) Assessment: controlled on rx Hypertension Assessment: controlled on rx Last 14 BP Last 14 Encounter BP Readings: Date: BP: 07/23/2022 94/46 07/16/2022 120/56 07/02/2022 120/56 05/19/2022 118/70 05/01/2022 120/72 04/30/2022 116/64 02/21/2022 125/65 02/13/2022 143/65 01/08/2022 135/62 01/03/2022 153/73 12/31/2021 139/66 12/24/2021 134/64 12/17/2021 147/67 12/13/2021 124/59 Mixed hyperlipidemia Assessment: c/w statin RLS (restless legs syndrome) Assessment: controlled on rx History of transient ischemic attack (TIA) Assessment: hx [place] Activity Status Index: METS: Climb a flight of stairs or walk up a hill (5.50 METs) DASI Score: 5.5 Patient denies any chest pain or undue shortness of breath with the above physical activity. Clinical Frailty Scale: 3. Well, with treated comorbid disease STOP-Bang Score: Snores loudly Often feels tired, fatigued, or sleepy during the daytime Has been observed to stop breathing or choking/gasping during sleep Has or is being treated for high blood pressure Patient over 50 years old BMI less than or equal to 35 kg/m^2 Does not have a large neck Non-male patient STOP-Bang Score: 5 [id number] Score: Age: >=75 Sex: female CHF history: No Hypertension history: Yes Stroke/TIA/thromboembolism history: Yes Vascular disease history: No Diabetes history: No [id number] Score: 6 ARISCAT Score: Age: 51-80 Preoperative SpO2: >=96% Respiratory infection in the last month: No Preoperative anemia: No Surgical incision: peripheral Duration of surgery: <2 hrs Emergency procedure: No ARISCAT Score: 3 ASA Class: 3 ANESTHESIA FINDINGS: Intubation History: No history of difficult intubation Significant Anesthesia Considerations: potential postop nausea/vomiting Airway History: No history of difficult airway I - PHYSICAL EVALUATION AIRWAY Patient intubated: No. Tracheostomy tube not present Mallampati: II. TM distance: >3 FB. Neck ROM: full ROM without neurological symptoms. Mouth opening: adequate. Short neck: no. Thick neck: no Pop present: no Lip Bite Test: I Microretrognathia/Micronagthia/R ecessed Chin: No DENTAL Dental findings: teeth intact. II - ANESTHESIA PLAN ASA Score: 3 Anesthetic Plan: other Anesthetic plan additional comments: *PACC/TCI - anesthesia choice. Beta Annika Monitoring Plan Post Procedure Analgesic Plan Informed Consent Anesthetic risks, benefits, alternatives, personnel and consent discussed: yes. Patient / Responsible Democrat agrees to proceed: yes Patient / Surrogate agrees to blood products: blood products not planned Discussed the possibility of lip / dental damage: yes Prepared for Surgery: optimally prepared for surgery. CONSULTS: Patient does not require consults for optimization at this time Planned Anesthetic: other anesthesia choice The Following Tests/Procedures Have Been Initiated: Orders Placed This Encounter buPROPion SR (WELLBUTRIN SR) 100 mg 12 hr tablet Instructions Given to Patient: Instructions located in the after visit summary. Patient given verbal and written preop instructions and voices comprehension and compliance. SIGNATURE: Dian Prakash APRN.CNP PATIENT NAME: Charissa Wallace DATE: July 23, 2022 TIME: 3:31 PM PAGER/CONTACT #: documented in this encounter [facility] 07-22-2022 Note [facility] 07-22-2022 History of Presen t illness Narrative Radiology Service Progress Note DATE OF SERVICE: July 22, 2022 TIME: 1:22 PM PATIENT IDENTITY VERIFICATION COMPLETED USING TWO (2) STANDARD IDENTIFIERS: Name and Date of confirmed by patient verbally. FALL SCREENING: Has the patient had 2 falls in the last year or 1 fall with injury or currently using an Ambulatory Assistive Device (Walker, Cane, Wheelchair, Crutches, etc.)? No PATIENT GENDER DATA: Female. status: : No status: NO. PATIENT RELEVANT IMPLANT DATA REVIEWED: Yes ALLERGIES: Reviewed and unchanged CONTRAST ALLERGY: NO. EXAM: CT -CONTRAST INDUCED NEPHROPATHY RISK FACTORS: Patient age > 60 years CREATININE: Creatinine Date Value Ref Range Status 07/22/2022 0.74 0.58 - 0.96 mg/dL Final 04/30/2022 0.66 0.58 - 0.96 mg/dL Final 02/21/2022 0.77 0.58 - 0.96 mg/dL Final Estimated Glomerular Filtration Rate Date Value Ref Range Status 07/22/2022 84 >=60 mL/min/1.73m Final Comment: Estimated Glomerular Filtration Rate (eGFR) is calculated using the 2020 CKD-EPI creatinine equation. This equation utilizes serum creatinine, sex, and age as parameters. The creatinine assay has traceable calibration to isotope dilution-mass spectrometry. Refer to KDIGO guidelines for clinical interpretation. In patients with unstable renal function, e.g. those with acute kidney injury, the eGFR may not accurately reflect actual GFR. eGFR- Date Value Ref Range Status 05/23/2020 >60 Final P.O.C.T. RESULTS: POC done: Yes, See Lab Tab July 22, 2022 TREATMENT: N/A PERIPHERAL IV DATA: Ambulatory: A peripheral IV was started in the Left hand with a Angio cath: 22 gauge. RADIOLOGY DEPARTMENT: CT; Exam(s) Completed: Abdomen and Chest SIGNATURE: RT Michaela(R) PATIENT NAME: Charissa Wallace DATE: July 22, 2022 TIME: 1:22 PM documented in this encounter [facility] 07-22-2022 Note [facility] 07-22-2022 History of Presen t illness Narrative Radiology Service Progress Note PATIENT NAME: Charissa Wallace DATE OF SERVICE: July 22, 2022 TIME: 12:34 PM PATIENT IDENTITY VERIFICATION COMPLETED USING TWO (2) IDENTIFIERS: Name and Date of confirmed by patient verbally. FALL SCREENING: Has the patient had 2 falls in the last year or 1 fall with injury or currently using an Ambulatory Assistive Device (Walker, Cane, Wheelchair, Crutches, etc.)? Yes, Patient High Risk for Falls What interventions were put in place to prevent falls during this visit? Instructed Patient to Call for Help if Needed, Offered Assistance with Transfers/Clothing, Instructed Patient to Remain Seated (Not on Exam Table) Until Exam, and Increased Observations by Caregivers PATIENT GENDER DATA: Female. status: : No status: NO. PATIENT RELEVANT IMPLANT DATA REVIEWED: Yes RADIOLOGY DEPARTMENT: MR; Exam(s) Completed: Body: Rectal PERIPHERAL IV DATA: Site assessment: Clean,Dry and Intact, Site disposition Discontinued SIGNED BY: RT Lj(R) July 22, 2022 12:34 PM documented in this encounter [facility] 07-16-2022 Note [facility] 07-16-2022 History of Presen t illness Narrative Reason for Visit Patient presents with: Follow Up: bronchitis Charissa Wallace is a 77 year old female who presents here today for Above Complaints.. Health Maintenance SHINGRIX VACCINE(1 of 2) ALPHA-1 ANTITRYPSIN DEFICIENCY SCREENING LUNG CANCER SCREENING BONE DENSITY COLORECTAL CANCER SCREENING LDL CHOLESTEROL COVID-19 VACCINE(4 - Booster for Pfizer series) ADVANCE DIRECTIVE DISCUSSION HPI Patient is here with her daughter Santa, her other daughter is Shyanne. Shyanne has been the one making calls with regards to her mother's care Charissa Wallace is a 77 year old female with a hx of CAD (hx cabg and PCI), HTN, PE who was recently treated with an anal cancer midline anterior and about 4cm x 2 cm in size. Completed radiation and chemotherapy 01/08/22. Her Oncologist was Dr Washburn. Patient was supposed to follow-up with him after the completion of her chemo and radiation but she was reportedly ill and hospitalized at that time so could not make a follow-up. She was admitted for kidney failure, from poor oral intake and dehydration while at [facility] related to hip issues. Due to pain medications she was hallucinating and obtunded and was taken to ER, there they found her in prerenal heather. In the hospital she was hydrated and brought back to a level where she could be discharged to home with the help of her daughters. She followed up with Dr Brambila who originally found the anal cancer to confirm that her anal cancer has indeed cured as far as testing was concerned but he wanted colonoscopy and scheduled for it but patient refused the day of procedure last week. Patient notes she was scared, to know the details of what her biopsy would reveal. She was not prepared to know what might be. Daughters feel that they are questioned for mothers choices in a way that shows some deficiency on their part and they get a little defensive sometimes. Her sister alondra making the phone calls also did not know that her anxiety medication were not given by us. It is being given by Dr Asif. One reason we would like to get her evaluated is her weight loss ,. According to the daughter here patient appetite has been very good recently. She has been eating significantly fair amounts but she is still losing weight and that seems to be a concern recent thyroid is normal. She did gain a pound in a week and notes appetite is better, After discussions with her and explaining the need to undergo colonoscopy and reassuring her that she can take the anxiety medication on the day of the procedure she has agreed to get the colonoscopy and to see Dr. Washburn, ok to take anxiety medication the day of procedure. I have communicated with Dr. Brambila and his team. Patient was also recently seen for bronchitis and COPD exacerbation. We had given her antibiotics and steroids, she is doing much better with regards to her breathing today No problem-specific Assessment & Plan notes found for this encounter. PAST MEDICAL HISTORY Diagnosis Date CAD (coronary artery disease) 7 stents, [facility]. 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 did not show signficant obstruction Obstructive sleep apnea 12/21/14 Positive PPD Syncope 10/27/2014 Vertigo Vocal cord polyp PAST SURGICAL HISTORY Procedure Laterality Date APPENDECTOMY CHOLECYSTECTOMY Cholecystectomy CORONARY ARTERY BYP W/VEIN & ARTERY GRAFT 3 VEIN CABG, three grafts CT BRAIN WO CONTRAST 10/24/2014 mild to moderate diffuse atrophy EKG 12 LEAD 10/25/2014 sinus bradycardia LIG/TRNSXJ FLP TUBE ABDL/VAG APPR UNI/BI Tubal ligation POLYSOMNOGRAM(DIAG) 85137 12/07/2014 THYROIDECTOMY TOTAL/COMPLETE total TONSILLECTOMY PRIMARY/SECONDARY <AGE 12 Tonsillectomy TRANSCATH STENT ADDN VESSEL,PERCUT Transcath stent addn vessel percut, x3 TRANSCATH STENT INIT VESSEL,PERCUT Transcath stent init vessel percut FAMILY HISTORY Problem Relation Age of Onset Cancer Mother Lung Coronary Artery Disease Mother Diabetes Mother Ischemic Heart Disease Mother CHF. Stroke Mother other (TB) Mother Alcohol/Drug Father Cancer Father Diabetes Father Ischemic Heart Disease Father Massive heart attack Emphysema Sister Cancer Sister Breast in 2 sisters. Coronary Artery Disease Sister Diabetes Sister Ischemic Heart Disease Sister No Known Problems Brother Social History Tobacco Use Smoking status: Every Day Packs/day: 4.00 Years: 58.00 Pack years: 232.00 Types: Cigarettes Smokeless tobacco: Never Tobacco comments: Reduced to 1 PPD from 4 PPD. I can't tell you I'll ever quit. Parents smoked in childhood home, and has lived with smokers as adult. Vaping Use Vaping Use: Never used Substance Use Topics Alcohol use: No Drug use: No Past medical history, appointments, medications, allergies reviewed. Pertinent Lab/Diagnostic Studies are reviewed and discussed today Current Outpatient Medications: albuterol HFA (PROAIR HFA) 90 mcg/actuation inhaler guaiFENesin (MUCINEX) 600 mg 12 hr tablet lisinopril (ZESTRIL) [address] (PROTONIX) 40 mg tablet amLODIPine (NORVASC) 10 mg tablet atorvastatin (LIPITOR) 40 mg tablet diphenoxylate-atropine (LOMOTIL) 2.5-0.025 mg per tablet oxybutynin XL (DITROPAN XL) 5 mg 24 hr tablet atenolol (TENORMIN) 50 mg tablet levothyroxine (SYNTHROID) 75 mcg tablet ondansetron (ZOFRAN) 8 mg tablet clopidogrel (PLAVIX) 75 mg tablet Walker misc oxyCODONE IR (ROXICODONE) 5 mg immediate release tablet LORazepam (ATIVAN) 1 mg tablet gabapentin (NEURONTIN) 100 mg capsule xatshfwrqeXXXRC-jkdaiq-hsofswnox (BMX 1:1:1) 1:1:1 liqd Melatonin 5 mg cap fluticasone (FLONASE) 50 mcg/actuation nasal spray Review of Systems CONSTITUTIONAL: No fevers, chills night sweats, unintended weight loss CARDIOVASCULAR: No chest pain, dyspnea, palpitations, orthopnea, PND, ankle edema. PULM: No dyspnea, unexplained cough. GI: No dysphagia/odynophagia, problematic reflux, constipation, diarrhea, changes in stool habits, hematochezia, melena. : No new urinary complaints, including dysuria, gross hematuria or pyuria. NEURO: No new balance problems, peripheral weakness/paresthesias or numbness of concern. Physical Exam BP 120/56 (BP Site: Right Arm, BP Position: Sitting, BP Cuff Size: Regular Adult) Pulse 66 Temp 36.4 C (97.6 F) Resp 16 Ht 154.9 cm (5' 1 ) Wt 56.7 kg (125 lb) SpO2 97% BMI 23.62 kg/m General appearance: Appears much thinner than what I have seen the past, alert, in no acute distress, well nourished. Skin: Skin color, texture, turgor normal, no suspicious rashes or lesions Head: Normocephalic, no masses, lesions, tenderness or abnormalities Eyes: Anicteric sclera. Pupils are equally round and reactive to light. Extraocular movements are intact. Lungs: Lungs clear to auscultation. No wheezing, rhonchi, rales Heart: RRR without murmur, gallop, or rubs. Extremities: No deformities, edema, skin discoloration, clubbing or cyanosis. Good capillary refill. ASSESSMENT/PLAN: 1. COPD with chronic bronchitis (HCC) - ICD9: 491.20, ICD10: J44.9 (primary diagnosis) Today she is breathing better but I would like to set her up with pulmonology - CONSULT TO PULM/CRITICAL CARE 2. Anal cancer (HCC) - ICD9: 154.3, ICD10: C21.0 This note was written after her visit, we had got in touch with Dr. Brambila is willing to reschedule her for colonoscopy although she initially failed to attend her appointment. We discussed the need for anxiety medication to be continued and although family seems to relate to others that we have been asked not to take the anxiety medication I do not see any such recommendations in the notes. Dr. Brambila has been very kind and prompted the patient 3. Weight loss - ICD9: 783.21, ICD10: R63.4 Her thyroid is normal and she is eating well, we really want to make sure that she does not have a recurrence of any major issues going. 4. Acquired hypothyroidism - ICD9: 244.9, ICD10: E03.9 - Instructed patient on importance of taking on an empty stomach either first thing in the morning or at bedtime. Stable 5. Tobacco dependence - ICD9: 305.1, ICD10: F17.200 She has cut down smoking and we keep encouraging her to quit smoking but its been a challenge for her - Cessation encouraged. - Physiologic and physical aspects of tobacco addiction as well as strategies for quitting were discussed. - Counseling was given focusing on the harmful effects of this addiction especially given the patient's medical condition(s) which will be worsened because of the chemicals in tobacco. Ashley Parikh MD documented in this encounter [facility] 07-15-2022 Miscellaneous Notes I think she can take the benzodiazepine or anxiety medication the day of surgery so I dont think there needs to be a break from the medication Regards, Ashley Parikh MD SPECIALTY CARE COORDINATION FOLLOW-UP NOTE Spoke to patients daughter Shyanne. States mother has extreme anxiety and cannot stop taking Ativan long enough to have the procedure done. States is addicted and takes medication like clockwork. She wants mother pre admitted prior to procedure so she can be medically managed and go forward with procedure. States that it is pointless to schedule a procedure if she cannot get her admitted. She also states she called everyone she can and has been unable to get help for her mother. I will discuss with Dr. Brambila and follow up with her. Irlanda Barker RN July 15, [address]ambila, I am unable get the exact picture of why patient cannot have procedure, I get the sense from reading the daughters note that it is because she is on benzdiazepine medication. Could you please let me know the barriers and if you have any suggestion for the family and do you need anything from us so we can get the patient the procedure.? Thank you much Tried calling daughter to clarify the concern. Call was not answered, and the phone and voicemail was full Apparently daughter was not able to get the patient to commit to the colonoscopy and it was cancelled per Dr Muller note But the message I get from reading her concerns and complaint is that she needs to be hospitalized to get the procedure and we are not doing that for her and in someway her anxiety medication is causing the issue RegardsAshley MD You just recently saw this patient. Please review below. Cindi Barnett PA-C Daughter Shyanne called and wanted to let you know pt was to have a colonoscopy/bx done yesterday 07/10/22 but was not able to come off her anxiety medication and the test was cancelled per daughter. Daughter very upset and reports her mother needs to be hospitalized to have testing done because she can not stop anxiety medications. She reports pt is loosing weight and there is not dx yet. Daughter reports she wants this documented that she has tried to get her mother help and has notified several offices about this. Please contact daughter back with recommendations. PH:[phone]. documented in this encounter [facility] 07-11-2022 Miscellaneous Notes Shyanne the patient's daughter is calling very frustrated about not being able to make her mom commit to her surgery and pre-op appointments. She is asking if there's anyway to have the patient admitted to have the surgery done. She spoke at length and I listened. She declined speaking with the Ombudsman, or a hospice social worker. She reports she has spoke with everyone about this matter and wanted it documented. [phone] documented in this encounter [facility] 07-02-2022 Note [facility] 06-18-2022 Miscellaneous Notes Patient notified via [employer]. Left a message for pt to call the office and ask to speak to a nurse. Bessie Walters LPN TC to patient with no answer. Left VM to return call to office. JOHN Eagle Please call patient and let her know there is blood work ordered to check her thyroid level. Thank you Lizz Nur APRN.CNP PDMP website checked and validated. All prescriptions have been APPROPRIATELY filled. No suspicious activity was identified. 06/13/2022 by Lizz Nur APRN.[facility] calling on behalf of patient for new scripts. Patient switching pharmacy. Verified with patient's daughter, Shyanne. Patient has been identified by name and date of : Yes, Provider Date Time Pharmacy phones for refill(s): Requested Prescriptions Pending Prescriptions Disp Refills pantoprazole DR (PROTONIX) 40 mg tablet 60 tablet 3 Sig: Take 1 tablet by mouth twice daily. amLODIPine (NORVASC) 10 mg tablet Sig: Take 1 tablet by mouth once daily. atorvastatin (LIPITOR) 40 mg tablet 90 tablet 1 Sig: Take 1 tablet by mouth daily at bedtime. For cholesterol. diphenoxylate-atropine (LOMOTIL) 2.5-0.025 mg per tablet 90 tablet 0 Sig: Take 1 tablet by mouth four times daily as needed for diarrhea for up to 30 days. oxybutynin XL (DITROPAN XL) 5 mg 24 hr tablet 90 tablet 1 Sig: Take 1 tablet by mouth once daily. atenolol (TENORMIN) 50 mg tablet 90 tablet 1 Sig: Take 1 tablet by mouth once daily. lisinopril (ZESTRIL) 20 mg tablet 30 tablet 0 Sig: Take 1 tablet by mouth once daily. levothyroxine (SYNTHROID) 75 mcg tablet 90 tablet 1 Sig: Take 1 tablet by mouth once daily. Date of last office visit with pcp: Date of last office visit in primary care: 05/19/22 Last 2 Encounter Wt Readings: Date: Wt: 05/19/2022 59.9 kg (132 lb) 05/01/2022 60.9 kg (134 lb 3.2 oz) Previous labs/tests for medication: Thyroid: TSH (uU/mL) Date Value 05/23/2020 2.780 Cholesterol: HDL Cholesterol (mg/dL) Date Value 08/26/2019 38 LDL Cholesterol (mg/dL) Date Value 08/26/2019 69 ALT (U/L) Date Value 02/21/2022 8 05/23/2020 17 Non HDL Cholesterol (mg/dL) Date Value 08/26/2019 93 Blood Pressure: BUN (mg/dL) Date Value 04/30/2022 13 05/23/2020 16 Sodium (mmol/L) Date Value 04/30/2022 144 05/23/2020 141 Last 1 Encounter BP Readings: Date: BP: 05/19/2022 118/70 Please advise. Thank you. Ann Patton RN documented in this encounter [facility] 06-17-2022 Note [facility] 06-17-2022 History of Presen t illness Narrative COLORECTAL SURGERY Follow-up June 17, 2022 Chief complaint: Rectal Cancer removal HPI: Charissa Wallace is a 77 year old female with a hx of CAD (hx cabg and PCI), HTN, PE who presents with an anal cancer midline anterior and about 4cm x 2 cm in size. Completed radiation and chemotherapy 01/08/22. She is presenting for an opinion on the removal of the rectal cancer after treatment. She incidentally was to have surgery on hier left hip for avascular necrosis but was denied clearance by the orthopedic surgeon and referred to pain management. She have been receiving shots for this and this has helped. She denies any weight loss, nausea, vomiting, chills, fever. She denies any hematochezia, or changes in stool consistency or frequency. Denies rene blood while having bowel movements. 05/01/[address] Cardenas- gen surg IMPRESSION: AVN of left hip, history of anal cancer PLAN: I have discussed the above with the patient and her daughter who is present with her. At this point in time, I detect no clinical reason to preclude hip surgery for this patient. The patient is in severe pain and cannot ambulate at all. The daughter states that she was told that the patient required clearance from colorectal surgery to proceed with hip surgery. I told them to pursue hip surgery as soon as they can - given the patient's pain. The patient already requires a cardiology evaluation prior to surgery. Neither of the above has been set up yet as they were awaiting this appointment. I have told them to proceed immediately with cardiology and orthopedic surgery consultation. The patient acknowledges the above. 02/20/[address] 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 -Pathology demonstrated in situ squamous cell carcinoma but exam suggested more extensive disease. -Saw gynecology. Pap test negative. -PET scan and MRI were negative for metastatic disease. -Second cycle of chemotherapy abbreviated. She only received approximately 48 hours of infusional 5-fluorouracil. No Mitomycin-C. -Completed radiation 01/08. -On exam she appears to have response. I cannot determine degree of response on my exam. Plan: -Follow up with Dr. Brambila in March. -OV with labs in about 3-4 months. -CTs annually beginning January this year and up to 3 years. (I26.99) Pulmonary embolism -No anginal symptoms. Plan: -Continue apixaban 5 mg twice daily. CAD Assessment: -She remains on Plavix daily. -No symptoms of angina. -She has not yet followed up with cardiology. Plan: -Advised her to contact [facility] for follow-up appointment. She acknowledged she would do so. 02/13/[address] Purdy ASSESSMENT AND PLAN: Clinically stable. She is recovering well from acute chemoradiation treatment effects. She has urinary frequency and incontinence. She had recent UTI confirmed by urine culture treated with 1 week course of Macrobid. I will get urine culture to ensure that UTI is cleared. She is scheduled to see Dr. Washburn next week and she will contact Dr. Raz Brambila's office to make a follow-up appointment. 11/01/21 MDT Recommended Treatment: chemo and radiation Clinical Trial Candidate: Yes DECREASE TRIAL Other Discussion: Pathology review with HGD. She has not started therapy yet. May be a candidate for DECREASE Trial. May need to have repeat biopsy. Primary therapy is still chemoradiation and follow up. I have spoken to the patient about this and she is due to follow up with Dr Washburn. Physical Exam: There were no vitals taken for this visit. General - awake, alert, no acute distress Abdominal - soft, nontender, nondistended. Normoactive bowel sounds. Anorectal: Perianal skin is intact. No erythema, induration or excoriation. No fissure, fistula or external hemorrhoids. There ar e skin tags present around the anus. Digital Rectal Exam: Anus: closed Resting tone: NORMAL Squeeze tone: NORMAL Environmental Health Physician present: Yes Assessment Medical Decision Making: Assessment & Diagnosis: Charissa Wallace is a 77 year old female with a hx of CAD (hx cabg and PCI), HTN, PE who presents with an anal cancer midline anterior and about 4cm x 2 cm in size. Completed radiation and chemotherapy 01/08/22. She is presenting for an opinion on the removal of the rectal cancer after treatment. Data Reviewed: Tests & Documents Reviewed/ordered: Review of prior notes from Dr Washburn 02/20/22 I have independently interpreted: NA I have discussed Charissa Wallace's treatment plan and/or results with Dr. Brambila. Treatment plan: - MRI of the pelvis, CT Chest and abdomen - Plan for Exam under anesthesia, colonoscopy and biopsies. Outpatient. - Will need to determine duration of stopping Plavix prior to procedures. Risk of morbidity, mortality and/or complications of treatment plan: low Associated attestation - Raz Brambila MD - 06/17/2022 12:29 PM EDT [facility] STAFF PHYSICIAN NOTE OF PERSONAL INVOLVEMENT IN CARE I have reviewed the history and physical examination obtained and documented by the resident and I personally participated in the davila components. I have discussed the case and management of the patient's care. The following comments revise or confirm relevant davila components of their note. IMPRESSION: This is a 77 year old female who presents with history of multiple comorbidities and s/p Elicia for anal cancer. On examination, no obvious mass but nodularity. PLAN: Procedure:EUA and biopsies and colonoscopy The risks, benefits and anticipated outcomes of the procedure, the risks and benefits of the alternatives to the procedure, and the roles and tasks of the personnel to be involved, were discussed with the patient, and the patient consents to the procedure and agrees to proceed. Needs restaging with MRI and CTs Pending findings will decide on surveillance vs more definitive surgery CARE COORDINATION: Will need to be off the plavix for the biopsies of which both she and her daughter said the physicians have said is fine. SIGNATURE: Raz Brambila MD DATE of SERVICE: June 17, 2022 TIME of SERVICE: 12:27 PM documented in this encounter [facility] 06-11-2022 Miscellaneous Notes Ordered as requested Regards, Ashley Parikh MD Charissa Wallace is a patient of Ashley Parikh MD today Daughter called to request medication for dizziness. Her Mother does not know the name of the medication. Please call. Patient has been identified by name and birthdate. Duration of symptoms: N/A Person calling: self Call patient at: on cell [phone] (home) [phone] (cell) Was an appointment scheduled: No Closing statement: Results or non-symptom based questions: Thank you for calling [facility], your call will be returned within the next business day. Alyssa Treviño Pss documented in this encounter [facility] 05-23-2022 Miscellaneous Notes Left message on [employer]. Rebekah Nur APRN.CNP Becky from [facility] calling asking to extend [facility] visits one visit weekly for 4 more weeks. She is asking for verbal order please. Please advise documented in this encounter [facility] 05-19-2022 Note [facility] 05-19-2022 Instructions Lizz Nur APRN.CNP - 05/19/2022 1:31 PM EDT Continue with ice to hand and wrist and can use tylenol for pain Call if pain or swelling increases or for any new symptoms - if no improvement next week call and we will xray your hand and wrist. documented in this encounter [facility] 05-19-2022 History of Presen t illness Narrative CC: Patient presents with: Recheck: ER follow up fall HPI Charissa Wallace is a 77 year old female who presents today for ER follow-up. Has been to ER 2 different times for falls recently. Facility: [facility] Date of visit: 04/23/22 went to ER for fall while reaching for a pot, fell, and hit left hip, xrays were negative and was seeing Dr. Aguilar for the pain. Fell again on 05/12/22 off the commode. Was trying to adjust herself and slipped off. States not from weakness, dizziness or syncope. Denies hitting her head but landed on her left side again. Does not remember what position hand and wrist was in with fall but has been hurting since. Hand wrist and hip xrays were completed showing only degenerative changes. Still with pain to left hand and bruising. Isn't able to lift even a cup of coffee because of pain. Denies any numbness, tingling, or known weakness. Isn't sure if pain is improving. Has been using ice to it regularly, keeping it resting and wrapped in an srinivas wrap. Also concerned with right sided pain since over reaching her right arm a few weeks ago. Immediately felt a pulling sensation on her right side into her right breast region with the over reaching. Now get intermittent sharp pain to right side with reaching and certain movements and with really deep breaths or coughing. Denies any bruising, redness, or swelling. REVIEW OF SYSTEMS General: no fevers, no chills, no night sweats, no recurrent infections, no change in appetite, no change in energy, and no significant changes in weight Respiratory: no cough, no wheezing, no shortness of breath, no hemoptysis Cardiovascular: no chest pain, no chest pressure, no palpitations, and no swelling Neurologic: No headache, weakness, numbness, tingling, dizziness, memory loss, syncope. PAST MEDICAL HISTORY Diagnosis Date CAD (coronary artery disease) 7 stents, [facility]. 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 did not show signficant obstruction Obstructive sleep apnea 12/21/14 Positive PPD Syncope 10/27/2014 Vertigo Vocal cord polyp PAST SURGICAL HISTORY Procedure Laterality Date APPENDECTOMY CHOLECYSTECTOMY Cholecystectomy CORONARY ARTERY BYP W/VEIN & ARTERY GRAFT 3 VEIN CABG, three grafts CT BRAIN WO CONTRAST 10/24/2014 mild to moderate diffuse atrophy EKG 12 LEAD 10/25/2014 sinus bradycardia LIG/TRNSXJ FLP TUBE ABDL/VAG APPR UNI/BI Tubal ligation POLYSOMNOGRAM(DIAG) 71116 12/07/2014 THYROIDECTOMY TOTAL/COMPLETE total TONSILLECTOMY PRIMARY/SECONDARY <AGE 12 Tonsillectomy TRANSCATH STENT ADDN VESSEL,PERCUT Transcath stent addn vessel percut, x3 TRANSCATH STENT INIT VESSEL,PERCUT Transcath stent init vessel percut ALLERGIES Bupropion, Dilaudid [Other], Morphine Hcl, Nubain [Nalbuphine Hcl], Orphenadrine, Penicillins, and Ultram [Tramadol Hcl] MEDICATIONS clopidogrel (PLAVIX) 75 mg tablet Take 1 tablet by mouth once daily. Every other day. Walker misc Use one daily furosemide (LASIX) 20 mg tablet Take 1 tablet by mouth once daily for 5 days. amLODIPine (NORVASC) 10 mg tablet Take 10 mg by mouth once daily. oxyCODONE IR (ROXICODONE) 5 mg immediate release tablet Take 1-2 tablets by mouth every 8 hours as needed for pain for up to 7 days. LORazepam (ATIVAN) 1 mg tablet Take 1 tablet by mouth four times daily as needed for up to 180 days. gabapentin (NEURONTIN) 100 mg capsule Take 2 capsules by mouth three times daily for 180 days. diphenoxylate-atropine (LOMOTIL) 2.5-0.025 mg per tablet Take 1 tablet by mouth four times daily as needed for diarrhea for up to 30 days. atorvastatin (LIPITOR) 40 mg tablet Take 1 tablet by mouth daily at bedtime. For cholesterol. atenolol (TENORMIN) 50 mg tablet Take 1 tablet by mouth once daily. lisinopril (ZESTRIL, PRINIVIL) 20 mg tablet Take 1 tablet by mouth once daily. ondansetron (ZOFRAN) 8 mg tablet Take 1 tablet by mouth every 12 hours as needed for nausea/vomiting. ctdaagtrtjLDKFX-efkwwk-almtpekdz (BMX 1:1:1) 1:1:1 liqd Take 5 mL by mouth every 6 hours as needed. pantoprazole DR (PROTONIX) 40 mg tablet Take 1 tablet by mouth twice daily. Melatonin 5 mg cap Take 1 capsule by mouth at bedtime as needed. levothyroxine (SYNTHROID) 75 mcg tablet Take 1 tablet by mouth once daily. oxybutynin XL (DITROPAN XL) 5 mg 24 hr tablet Take 1 tablet by mouth once daily. albuterol HFA (PROAIR HFA) 90 mcg/actuation inhaler Inhale 2 Puffs as instructed every 6 hours as needed. fluticasone (FLONASE) 50 mcg/actuation nasal spray Use 2 Sprays in each nostril once daily. Rinse mouth after use. FAMILY HISTORY Problem Relation Age of Onset Cancer Mother Lung Coronary Artery Disease Mother Diabetes Mother Ischemic Heart Disease Mother CHF. Stroke Mother other (TB) Mother Alcohol/Drug Father Cancer Father Diabetes Father Ischemic Heart Disease Father Massive heart attack Emphysema Sister Cancer Sister Breast in 2 sisters. Coronary Artery Disease Sister Diabetes Sister Ischemic Heart Disease Sister No Known Problems Brother Social History Tobacco Use Smoking status: Every Day Packs/day: 4.00 Years: 58.00 Pack years: 232.00 Types: Cigarettes Smokeless tobacco: Never Tobacco comments: Reduced to 1 PPD from 4 PPD. I can't tell you I'll ever quit. Parents smoked in childhood home, and has lived with smokers as adult. Vaping Use Vaping Use: Never used Substance Use Topics Alcohol use: No Drug use: No PHYSICAL EXAM BP 118/70 Pulse 80 Resp 16 Wt 59.9 kg (132 lb) BMI 24.94 kg/m General Appearance: well appearing, in no acute distress, alert Skin: no skin changes to right side where pulling sensation is, but large amount of ecchymosis to left hand and wrist and fingers. Eyes: conjunctiva pink and moist, no icterus, sclera white, non-injected Lungs: Lungs clear to auscultation. No wheezing, rhonchi, rales. Heart: RRR without murmur, gallop, or rubs. No ectopy RUE Extremities: No deformities, edema, skin discoloration, clubbing or cyanosis. Good capillary refill. LUE Extremities: No deformities, palpable pulses clubbing or cyanosis. Good capillary refill. Small amount of nonpitting edema to left fingers and thumb Musculoskeletal: no deformity noted to left wrist or hand. Very tender to back of hand and palm. No swelling or decreased ROM to wrist. Pain reported with making a fist but able to move all fingers and no decreased sensation. Tenderness to right side near lower ribs and into breast region. No grimacing or guarding. No masses deformities or concerns noted. SHINGRIX VACCINE(1 of 2) Never done ALPHA-1 ANTITRYPSIN DEFICIENCY SCREENING Never done LUNG CANCER SCREENING Never done BONE DENSITY Never done MAMMOGRAM due on 05/01/2016 COLORECTAL CANCER SCREENING due on 10/28/2019 LDL CHOLESTEROL due on 08/25/2020 COVID-19 VACCINE(4 - Booster for Pfizer series) due on 05/16/2021 ADVANCE DIRECTIVE DISCUSSION Never done INFLUENZA(Season Ended) due on 10/10/2022 ANNUAL PCP TEAM CHRONIC DISEASE VISIT due on 05/01/2023 BP CONTROLLED (<130/80) due on 05/02/2023 LIPID SCREEN due on 08/25/2024 DIABETES SCREEN due on 04/30/2025 DTAP,TDAP,TD(3 - Td or Tdap) due on 05/24/2029 SPIROMETRY Completed HEPATITIS C SCREENING Completed PNEUMOCOCCAL: 65+ Completed DATA REVIEWED: Outside chart from [facility] reviewed. ASSESSMENT/PLAN: 1. Fall, subsequent encounter - ICD9: V58.89, E888.9, ICD10: W19.XXXD (primary diagnosis) - seeing pain management for chronic back pain and hip pain. - xrays negative for fracture - continue to rest left hand, use ice, but move fingers and wrist gently throughout the day - if pain does not improve please let me know next week and we will repeat xrays - call for any increased pain or new symptoms. 2. Left hand pain - ICD9: 729.5, ICD10: M79.642 As above 3. Muscle strain - ICD9: 848.9, ICD10: T14.8XXA - with occurring with straining area with reaching over a chair, sharp pain likely from muscle strain. If this continues or increases, or new symptoms occur it needs further evaluated. -can use ice and heat to this area for pain. Prescription instructions reviewed with patient as applicable. Potential red flag symptoms discussed with the patient. Reviewed appropriate action plan to take if red flag symptoms occur. Patient agreeable to treatment plan. Lizz Nur APRN.CNP documented in this encounter [facility] 05-17-2022 Miscellaneous Notes Reason For Call: Patient requested refill of Oxycodone. She it out of the medication. Complains of left l lower leg pain and swelling Outcome: Advised patient to be seen within 4 hours today in an office or ED. Conferenced patient to [place] at the appt center for an appt within 4 hours. Patient was given an appt this morning. Reason for Disposition [1] Thigh, calf, or ankle swelling AND [2] only 1 side Advised patient to be seen today within 4 hours in an office or ED Left lower leg pain and swelling Out of Oxycodone Answer Assessment - Initial Assessment Questions 1. ONSET: Chronic leg swelling. Left foot and ankle swollen today and painful. Describes swelling as moderate. Out of Oxycodone which she needs to decrease pain to walk. Last dose taken yesterday and it helped. 2. LOCATION: See above 3. SEVERITY: See #1 4. REDNESS: No 5. PAIN: Complains of left lower leg pain at ankle and front of lower leg and calf. She said she needs an Oxycodone refill so she can walk. She is out of this medication. 6. FEVER: No 7. CAUSE: Patient blames her left hip problem and says she has an appt in June. Advised patient no appt seen in chart for June with the doctor she mentioned. She will have her daughter check on the appt. 8. MEDICAL HISTORY: Heart disease 9. RECURRENT SYMPTOM: Yes. History of left hip problem 10. OTHER SYMPTOMS: No 11. : Post menopausal Protocols used: Leg Swelling and [id number] documented in this encounter [facility] 05-14-2022 Miscellaneous Notes Noted. Will review further at appointment. Lizz Nur APRN.CNP Claudia with [facility] called in to report that Pt had fallen yesterday. She states Pt did not hit her head, and thought her wrist was sprained. Let her know that her daughter already took her to the ER yesterday and she has an ER f/u already scheduled. FYI: Daughter reports pt had a fall yesterday 05-12-22. She was taken to [facility] ER. Pt has a sprained right wrist and left ankle. No other injuries reported. Pt has been scheduled for an ER FU for 05-19-22. This date requested by daughter. Pt also has an apt with Dr. Aguilar for pain management. Bessie Walters LPN documented in this encounter [facility] 05-13-2022 Miscellaneous Notes Spoke with Pt's Daughter Shyanne and information listed below given. Pt will take medication daily. Bessie Walters LPN Left message to return call Please let daughter know that prescription sent for daily. Did verify with recent hospital record that this was increased to daily upon discharge. Thank you Lizz Nur APRN.BRAULIO Patient daughter Shyanne calling to check status of refill, mother has been taking plavix daily and has none for today dose. Requesting message be sent to [employer] to review. Pt's daughter Shyanne returned call. Shyanne states pt is being told by pcp that she is to take plavix every other day but she is being told by her cancer dr & her hospital dr she is to take it every day. Shyanne is asking how pt is to be taking it? Please call Shyanne back with answer. She does need a refill, took her last pill today. Marybeth Gamble LPN Abbi from [facility] Home Health calling did OT evaluation, one time visit. Delay of care due to waiting for insurance authorization. Patient wanted her to ask for rx refill, took her last Clopidgrel 75 mg today, patient told her she takes one every other day. Patient uses [facility] for her pharmacy. Asked to have patient call so we can make sure how she is taking the medication. Please advise Patient has been identified by name and date of : home health OT phones for refill(s): Requested Prescriptions Pending Prescriptions Disp Refills clopidogrel (PLAVIX) 75 mg tablet Sig: Take 1 tablet by mouth every other day. Every other day. Date of last office visit in primary care: 04/30/2022 , has appt 07/02/2022 Last 2 Encounter Wt Readings: Date: Wt: 05/01/2022 60.9 kg (134 lb 3.2 oz) 04/30/2022 59.9 kg (132 lb) Previous labs/tests for medication: Not applicable Please advise. Thank you. Jaquelin Villegas LPN documented in this encounter [facility] 05-12-2022 Miscellaneous Notes No they should be coming in this week. Just FYI. I see that a walker was ordered may 07. Is a different order needed? Agree, patient needs evaluated post fall. Thank you Lizz Nur APRN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 Pt called and asked about getting walker from [facility]. She states she is getting the walker and a chair to go over her toilet. She states last night she went to get on the toilet and she went to adjust her butt and she fell. She states her L wrist and ankle hurt. She states her daughter is coming over and is going to bring her to the ER today. Patricia Mtz RN Shae MONTERROSO with [facility] called in and reports Pt needs a script for a standard walker sent to [facility]. Pt already has a Rolator and that doesn't work for her. Fax # for [facility] is [phone]. documented in this encounter [facility] 05-08-2022 Miscellaneous Notes Lashaun notified. Yes she can buy miralax, 17 gms to take daily And take Milk of Mag every 3 days if she does not have bm even after the miralax at 17 gms Regards, Ashley Parikh MD Lashaun, a [facility] nurse calling to update Dr. Parikh that patient has not had a bowel movement since Tuesday 05/02. Per Lashaun, patient does not have any abdominal discomfort and bowel sounds are active. Lashaun states patient's daughter was going to store today to pickle water pump operator some OTC product(s) for patient's constipation. Lashaun asking if PCP recommends anything? Please call Lashaun with response at [phone]. Pat Turner RN documented in this encounter [facility] 05-06-2022 Miscellaneous Notes Notified via [employer]. TC to Shyanne, patients daughter, with no answer. VM is full and unable to leave message at this time. MICHELLE Eagle She has chronic anemia, this is stable Kristina Nur APRN.BRAULIO Pt's daughter Shyanne notified of results & further instructions. Shyanne asking about the hgb results since they are also low? Please advise. Marybeth Gamble LPN Please let the patient' daughter know the ultrasound was negative for DVT. Labs showing fluid overload is the likely cause of leg swelling and discomfort. Take Lasix 20 mg x 5 days. Kidney function was normal. Anemia is stable Kristina Nur APRN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 documented in this encounter [facility] 05-02-2022 Miscellaneous Notes Luis from [facility] Home Health PT called with plan of care. He will see the patient twice a week for 2 weeks for functional mobility. documented in this encounter [facility] 05-02-2022 Note [facility] 05-02-2022 History of Presen t illness Narrative Charissa Wallace 1945 REFERRING PHYSICIAN: No ref. provider found CHIEF COMPLAINT: Consult (Anemia/ renal function) HPI: The patient is a 76 year old female is here for follow up of anal cancer. She was scheduled to see Dr. Brambila but was unable to get to main [facility]. She is here urgently because she requires left hip surgery for AVN and the daughter states that they told her that the patient required clearance from colorectal surgery prior to proceeding with left hip surgery. Patient has had multiple hospitalizations in the past month - the last was for mental status changes with findings of HEATHER and elevated troponins attributed due HEATHER. Patient is requiring increased narcotics for her left hip pain. PAST MEDICAL HISTORY Diagnosis Date CAD (coronary artery disease) 7 [facility], [facility]. 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 did not show signficant obstruction Obstructive sleep apnea 12/21/14 Positive PPD Syncope 10/27/2014 Vertigo Vocal cord polyp PAST SURGICAL HISTORY Procedure Laterality Date APPENDECTOMY CHOLECYSTECTOMY Cholecystectomy CORONARY ARTERY BYP W/VEIN & ARTERY GRAFT 3 VEIN CABG, three grafts CT BRAIN WO CONTRAST 10/24/2014 mild to moderate diffuse atrophy EKG 12 LEAD 10/25/2014 sinus bradycardia LIG/TRNSXJ FLP TUBE ABDL/VAG APPR UNI/BI Tubal ligation POLYSOMNOGRAM(DIAG) 85907 12/07/2014 THYROIDECTOMY TOTAL/COMPLETE total TONSILLECTOMY PRIMARY/SECONDARY <AGE 12 Tonsillectomy TRANSCATH STENT MAURICIO POST Transcath stent addn vessel percut, x3 TRANSCATH STENT INIT VESSEL,PERCUT Transcath stent init vessel percut Current Outpatient Medications Medication Sig amLODIPine (NORVASC) 10 mg tablet Take 10 mg by mouth once daily. oxyCODONE IR (ROXICODONE) 5 mg immediate release tablet Take 1-2 tablets by mouth every 8 hours as needed for pain for up to 7 days. LORazepam (ATIVAN) 1 mg tablet Take 1 tablet by mouth four times daily as needed for up to 180 days. gabapentin (NEURONTIN) 100 mg capsule Take 2 capsules by mouth three times daily for 180 days. atorvastatin (LIPITOR) 40 mg tablet Take 1 tablet by mouth daily at bedtime. For cholesterol. atenolol (TENORMIN) 50 mg tablet Take 1 tablet by mouth once daily. lisinopril (ZESTRIL, PRINIVIL) 20 mg tablet Take 1 tablet by mouth once daily. pantoprazole DR (PROTONIX) 40 mg tablet Take 1 tablet by mouth twice daily. Melatonin 5 mg cap Take 1 capsule by mouth at bedtime as needed. levothyroxine (SYNTHROID) 75 mcg tablet Take 1 tablet by mouth once daily. oxybutynin XL (DITROPAN XL) 5 mg 24 hr tablet Take 1 tablet by mouth once daily. albuterol HFA (PROAIR HFA) 90 mcg/actuation inhaler Inhale 2 Puffs as instructed every 6 hours as needed. fluticasone (FLONASE) 50 mcg/actuation nasal spray Use 2 Sprays in each nostril once daily. Rinse mouth after use. diphenoxylate-atropine (LOMOTIL) 2.5-0.025 mg per tablet Take 1 tablet by mouth four times daily as needed for diarrhea for up to 30 days. ondansetron (ZOFRAN) 8 mg tablet Take 1 tablet by mouth every 12 hours as needed for nausea/vomiting. pajxblspdbJOSFO-zlcuvr-xxgfqelys (BMX 1:1:1) 1:1:1 liqd Take 5 mL by mouth every 6 hours as needed. clopidogrel (PLAVIX) 75 mg tablet Take 1 tablet by mouth every other day. Every other day. (Patient taking differently: Take 75 mg by mouth once daily.) ALLERGIES: Bupropion, Dilaudid [Other], Morphine Hcl, Nubain [Nalbuphine Hcl], Orphenadrine, Penicillins, and Ultram [Tramadol Hcl] PERSONAL HISTORY: Social History Tobacco Use Smoking status: Every Day Packs/day: 4.00 Years: 58.00 Pack years: 232.00 Types: Cigarettes Smokeless tobacco: Never Tobacco comments: Reduced to 1 PPD from 4 PPD. I can't tell you I'll ever quit. Parents smoked in childhood home, and has lived with smokers as adult. Vaping Use Vaping Use: Never used Substance Use Topics Alcohol use: No Drug use: No FAMILY HISTORY Problem Relation Age of Onset Cancer Mother Lung Coronary Artery Disease Mother Diabetes Mother Ischemic Heart Disease Mother CHF. Stroke Mother other (TB) Mother Alcohol/Drug Father Cancer Father Diabetes Father Ischemic Heart Disease Father Massive heart attack Emphysema Sister Cancer Sister Breast in 2 sisters. Coronary Artery Disease Sister Diabetes Sister Ischemic Heart Disease Sister No Known Problems Brother The review of systems data was entered by the nurse and reviewed by sc Nursing Notes: Doretha Ugarte LPN 05/01/2022 2:00 PM Signed REVIEW OF SYSTEMS: General: The patient NOTES fatigue, denies weight loss, denies weight gain, denies feeling hot, and denies feelings of cold. Eyes: The patient denies glaucoma, denies eye injury/surgery, wears glasses or contacts. Ear/Nose/Throat: The patient denies allergies, NOTES hayfever, denies ear infections, and NOTES bloody noses. Cardiovascular: The patient NOTES chest pain, NOTES heart disease, NOTES high blood pressure,NOTES cardiac stent, NOTES prior heart attack, denies irregular heart beat, NOTES high cholesterol, NOTES poor circulation, denies heart failure, other cardiac issues, NOTES claudication, NOTES cold feet, denies peripheral arterial stent. Respiratory: The patient denies tuberculosis, denies pneumonia, denies frequent cough, NOTES pulmonary embolism, denies shortness of breath, and denies coughing up blood. Gastrointestinal: The patient NOTES difficulty swallowing, NOTES acid reflux, NOTES ulcers, denies vomiting, denies jaundice/hepatitis, NOTES gallbladder problems, NOTES black or tarry stools, NOTES hemorrhoids, NOTES bleeding from rectum, NOTES diverticulitis, NOTES constipation, NOTES diarrhea, NOTES loss of stool control, and denies hernias. Kidney/Bladder: The patient denies kidney stones, denies urine infections, and denies bloody urine. Skin: The patient denies a history of skin cancer, denies bleeding/changing moles, and denies a history of skin rash. Neurologic: The patient denies a history of epilepsy/convulsions, denies headaches, NOTES head/spinal injuries, and NOTES stroke/TIA. Psychiatric: The patient NOTES psychiatric medications, NOTES depression, and denies voices, denies substance abuse. Endocrine: The patient NOTES thyroid disorders, denies diabetes, and denies hormonal problems. Hematologic: The patient NOTES a history of bruising, NOTES bleeding, and NOTES anemia, NOTES blood clots. Infections: The patient NOTES a history of measles and mumps, denies rheumatic fever, and denies sexually transmitted diseases. Musculoskeletal: The patient NOTES back pain/injury, NOTES back problems, denies sciatica, denies knee/foot trouble, NOTES arthritis, or NOTES gout. When was patient's last Mammogram screening? N/A Last Colonoscopy: 2021 Doretha Ugarte LPN PHYSICAL EXAMINATION: General: The patient is 76 year old female, well nourished, well hydrated in no acute distress. The patient is oriented to time, place, and person. VITALS: Blood pressure 120/72, pulse 82, temperature 36.6 C (97.8 F), height 154.9 cm (5' 1 ), weight 60.9 kg (134 lb 3.2 oz), SpO2 97 %. Body mass index is 25.36 kg/m . Head: Normal cephalic, atraumatic Eyes: pupils are equally round, sclera are clear/anicteric Neck is supple with no tracheal deviation Respiratory: Normal respiratory excursion and pattern. Abdominal exam: benign Rectal: no palpable masses of anal canal, minimally tighter sphincter tone, hemorrhoidal skin tag at 5-6 oclock Extremities: no clubbing, cyanosis or edema. Neuro: non focal Psych: normal mood Assessment IMPRESSION: AVN of left hip, history of anal cancer PLAN: I have discussed the above with the patient and her daughter who is present with her. At this point in time, I detect no clinical reason to preclude hip surgery for this patient. The patient is in severe pain and cannot ambulate at all. The daughter states that she was told that the patient required clearance from colorectal surgery to proceed with hip surgery. I told them to pursue hip surgery as soon as they can - given the patient's pain. The patient already requires a cardiology evaluation prior to surgery. Neither of the above has been set up yet as they were awaiting this appointment. I have told them to proceed immediately with cardiology and orthopedic surgery consultation. The patient acknowledges the above. I have answered all questions to the patient s satisfaction and the patient has no further uestions. I have confirmed and edited as necessary, the PFSH and ROS obtained by others. . Diagnoses: (C21.0) Anal cancer (HCC) (M25.552) Left hip pain Return to Clinic: The patient is instructed to follow-up with me as per needed. I spent a total of 28 minutes on the date of the service which included preparing to see the patient with review of any pertinent laboratory studies/radiological imaging/medical records from other medical facilities such as [facility], [id number] patient care, obtaining oral medical history from the patient in this encounter, performing a medically appropriate examination, counseling and educating the patient/family/caregiver, and completing appropriate medical documentation. Irasema Cardenas MD documented in this encounter [facility] 05-01-2022 Nurse Note REVIEW OF SYSTEMS: General: The patient NOTES fatigue, denies weight loss, denies weight gain, denies feeling hot, and denies feelings of cold. Eyes: The patient denies glaucoma, denies eye injury/surgery, wears glasses or contacts. Ear/Nose/Throat: The patient denies allergies, NOTES hayfever, denies ear infections, and NOTES bloody noses. Cardiovascular: The patient NOTES chest pain, NOTES heart disease, NOTES high blood pressure,NOTES cardiac stent, NOTES prior heart attack, denies irregular heart beat, NOTES high cholesterol, NOTES poor circulation, denies heart failure, other cardiac issues, NOTES claudication, NOTES cold feet, denies peripheral arterial stent. Respiratory: The patient denies tuberculosis, denies pneumonia, denies frequent cough, NOTES pulmonary embolism, denies shortness of breath, and denies coughing up blood. Gastrointestinal: The patient NOTES difficulty swallowing, NOTES acid reflux, NOTES ulcers, denies vomiting, denies jaundice/hepatitis, NOTES gallbladder problems, NOTES black or tarry stools, NOTES hemorrhoids, NOTES bleeding from rectum, NOTES diverticulitis, NOTES constipation, NOTES diarrhea, NOTES loss of stool control, and denies hernias. Kidney/Bladder: The patient denies kidney stones, denies urine infections, and denies bloody urine. Skin: The patient denies a history of skin cancer, denies bleeding/changing moles, and denies a history of skin rash. Neurologic: The patient denies a history of epilepsy/convulsions, denies headaches, NOTES head/spinal injuries, and NOTES stroke/TIA. Psychiatric: The patient NOTES psychiatric medications, NOTES depression, and denies voices, denies substance abuse. Endocrine: The patient NOTES thyroid disorders, denies diabetes, and denies hormonal problems. Hematologic: The patient NOTES a history of bruising, NOTES bleeding, and NOTES anemia, NOTES blood clots. Infections: The patient NOTES a history of measles and mumps, denies rheumatic fever, and denies sexually transmitted diseases. Musculoskeletal: The patient NOTES back pain/injury, NOTES back problems, denies sciatica, denies knee/foot trouble, NOTES arthritis, or NOTES gout. When was patient's last Mammogram screening? N/A Last Colonoscopy: 2021 Doretha Ugarte LPN documented in this encounter [facility] 04-30-2022 Note [facility] 04-30-2022 Instructions Kristina Nur APRN.BRAULIO - 04/30/2022 4:11 PM EDT Please call your heart doctor and find out if you should still be taking Plavix and what dose Take oxycodone as needed only for severe pain, use sparingly. Do not take Ativan and oxycodone at the same time, wait at least 2 hours in between. If any confusion or sleeping too much stop the oxycodone and call the office documented in this encounter [facility] 04-30-2022 History of Presen t illness Narrative CC: Patient presents with: ED Follow-up: [facility] d/c 04/23/2022 HPI Charissa Wallace is a 76 year old female who presents today for above. Patient was initially admitted to [facility] from 04/10 to 04/14 for intractable hip pain secondary to avascular necrosis and debility. [facility] where she developed acute confusion and hypotension, admitted to [facility] again from 04/19 to 04/23. Treated for HEATHER and encephalopathy. HEATHER Creatinine was 4.91 on admission. Creatinine down to baseline at discharge after gentle hydration with IV fluids and holding all nephrotoxic medications. Encephalopathy Secondary to hypotension, HEATHER, dehydration and pain medications. Resolved with IV hydration and holding narcotics. Intractable pain due to avascular necrosis of the hip: Per discharge summary she was supposed to be sent home with prescriptions for Oxycontin 10 mg BID and oxycodone as needed. Patient and daughter state they never received this. Patient reports 10/10 severe pain in the left hip and buttock. Taking Tylenol without any relief. She will eventually need surgery and has appointment with orthopedics next week. She was told that cardiac clearance by her classroom technology technician would be needed prior to surgery. Patient reports pain and swelling of BLE since discharge. Pain is severe and Tylenol does not help. She denies redness, worsening SOB, weight gain, chest pain, heart palpitations, PND, orthopnea. 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 Reportedly her oncologist discontinued this. She was also on Plavix prescribed by Dr. Pedroza but has not taken for months for unclear reasons. She had follow-up scheduled this month but missed appointment due to hospital admission and never rescheduled. She was started on Norvasc during one of her admissions, does not check BP at home. Debility- she is getting home PT and OT x 5 weeks. Also has home health nurse. Denies falling recently. REVIEW OF SYSTEMS GENERAL: Negative for fever, chills, night sweats, lightheadedness, feeling faint, syncope RESPIRATORY: Negative for cough and wheezing CARDIOVASCULAR: SEE HPI GI: Negative for constipation, diarrhea, nausea, vomiting PAST MEDICAL HISTORY Diagnosis Date CAD (coronary artery disease) 7 stents, [facility]. 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 did not show signficant obstruction Obstructive sleep apnea 12/21/14 Positive PPD Syncope 10/27/2014 Vertigo Vocal cord polyp PAST SURGICAL HISTORY Procedure Laterality Date APPENDECTOMY CHOLECYSTECTOMY Cholecystectomy CORONARY ARTERY BYP W/VEIN & ARTERY GRAFT 3 VEIN CABG, three grafts CT BRAIN WO CONTRAST 10/24/2014 mild to moderate diffuse atrophy EKG 12 LEAD 10/25/2014 sinus bradycardia LIG/TRNSXJ FLP TUBE ABDL/VAG APPR UNI/BI Tubal ligation POLYSOMNOGRAM(DIAG) 24230 12/07/2014 THYROIDECTOMY TOTAL/COMPLETE total TONSILLECTOMY PRIMARY/SECONDARY <AGE 12 Tonsillectomy TRANSCATH STENT ADDN VESSEL,PERCUT Transcath stent addn vessel percut, x3 TRANSCATH STENT INIT VESSEL,PERCUT Transcath stent init vessel percut ALLERGIES Bupropion, Dilaudid [Other], Morphine Hcl, Nubain [Nalbuphine Hcl], Orphenadrine, Penicillins, and Ultram [Tramadol Hcl] MEDICATIONS amLODIPine (NORVASC) 10 mg tablet Take 10 mg by mouth once daily. gabapentin (NEURONTIN) 100 mg capsule Take 2 capsules by mouth three times daily for 180 days. diphenoxylate-atropine (LOMOTIL) 2.5-0.025 mg per tablet Take 1 tablet by mouth four times daily as needed for diarrhea for up to 30 days. atorvastatin (LIPITOR) 40 mg tablet Take 1 tablet by mouth daily at bedtime. For cholesterol. atenolol (TENORMIN) 50 mg tablet Take 1 tablet by mouth once daily. lisinopril (ZESTRIL, PRINIVIL) 20 mg tablet Take 1 tablet by mouth once daily. apixaban (ELIQUIS) 5 mg tab(s) Take 1 tablet by mouth twice daily. lactobacillus comb no.10 (PROBIOTIC) 20 billion cell cap Take 1 capsule by mouth once daily. ondansetron (ZOFRAN) 8 mg tablet Take 1 tablet by mouth every 12 hours as needed for nausea/vomiting. dfdwwnelwqXMXNN-badpzi-zvbklpxpu (BMX 1:1:1) 1:1:1 liqd Take 5 mL by mouth every 6 hours as needed. pantoprazole DR (PROTONIX) 40 mg tablet Take 1 tablet by mouth twice daily. LORazepam (ATIVAN) 1 mg tablet Take 1 mg by mouth four times daily. Melatonin 5 mg cap Take 1 capsule by mouth at bedtime as needed. levothyroxine (SYNTHROID) 75 mcg tablet Take 1 tablet by mouth once daily. oxybutynin XL (DITROPAN XL) 5 mg 24 hr tablet Take 1 tablet by mouth once daily. albuterol HFA (PROAIR HFA) 90 mcg/actuation inhaler Inhale 2 Puffs as instructed every 6 hours as needed. fluticasone (FLONASE) 50 mcg/actuation nasal spray Use 2 Sprays in each nostril once daily. Rinse mouth after use. clopidogrel (PLAVIX) 75 mg tablet Take 1 tablet by mouth every other day. Every other day. (Patient taking differently: Take 75 mg by mouth once daily.) meloxicam (MOBIC) 7.5 mg tablet Take 2 tablets by mouth once daily. Take with food. FAMILY HISTORY Problem Relation Age of Onset Cancer Mother Lung Coronary Artery Disease Mother Diabetes Mother Ischemic Heart Disease Mother CHF. Stroke Mother other (TB) Mother Alcohol/Drug Father Cancer Father Diabetes Father Ischemic Heart Disease Father Massive heart attack Emphysema Sister Cancer Sister Breast in 2 sisters. Coronary Artery Disease Sister Diabetes Sister Ischemic Heart Disease Sister No Known Problems Brother Social History Tobacco Use Smoking status: Every Day Packs/day: 4.00 Years: 58.00 Pack years: 232.00 Types: Cigarettes Smokeless tobacco: Never Tobacco comments: Reduced to 1 PPD from 4 PPD. I can't tell you I'll ever quit. Parents smoked in childhood home, and has lived with smokers as adult. Vaping Use Vaping Use: Never used Substance Use Topics Alcohol use: No Drug use: No PHYSICAL EXAM BP 116/64 Pulse 65 Resp 18 Wt 59.9 kg (132 lb) BMI 24.94 kg/m General Appearance: well appearing, in no acute distress, alert Pysch: mood and affect flat and restricted Lungs: Lungs diminished. No wheezing, rhonchi, rales. Heart: RRR without murmur, gallop, or rubs. No ectopy Lower Extremities: 1-2+ pitting edema bilateral lower legs. Tenderness of both legs with palpation. No cording, no skin discoloration, clubbing or cyanosis. Good capillary refill. Pulses: 1+ DATA REVIEWED: [facility] admissions x 2 ASSESSMENT/PLAN: 1. Bilateral lower extremity edema - ICD9: 782.3, ICD10: R60.0 (primary diagnosis) Patient has a history of PE, she has been off Eliquis for two months. Differentials include DVT, fluid overload, venous insufficiency, medication side effect (Norvasc) - US LEG VEIN DVT [facility] stat - check NT PRO BNP - keep legs elevated - follow-up pending results 2. Left hip pain - ICD9: 719.45, ICD10: M25.552 Secondary to avascular necrosis. Patient was supposed to be discharged home with pain medicine but was never given prescriptions. - start OXYCODONE 5 MG TABLET as needed for severe pain. Advised to take sparingly and discontinue if sedation or confusion develops. Cautioned to no take at the same time as Ativan, waiting at least two hours in between PDMP website checked and validated. All prescriptions have been APPROPRIATELY filled. No suspicious activity was identified. 04/30/2022 by Kristina Nur APRN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 3. Pain in both lower extremities - ICD9: 729.5, ICD10: M79.604, M79.605 See #1 - US LEG VEIN DVT [facility] 4. Debility - ICD9: 799.3, ICD10: R53.81 Continue with home PT 5. Anemia, unspecified type - ICD9: 285.9, ICD10: D64.9 Recheck 6. HEATHER (acute kidney injury) (HCC) - ICD9: 584.9, ICD10: N17.9 Recheck - BASIC METABOLIC PNL - CBC + DIFF 7. Avascular necrosis of bone of hip, left (HCC) - ICD9: 733.42, ICD10: M87.052 See #2 - OXYCODONE 5 MG TABLET 8. Shortness of breath - ICD9: 786.05, ICD10: R06.02 See #1 - NT PRO BNP 9. Primary hypertension - ICD9: 401.9, ICD10: I10 - good control - Continue current medication(s) for now - Recommended regular aerobic exercise. - Recommend home blood pressure monitoring, to bring results in on next visit - Goal of BP <130/80 10. Encephalopathy - ICD9: 348.30, ICD10: G93.40 Resolved 11. S/P CABG (coronary artery bypass graft) - ICD9: V45.81, ICD10: Z95.1 Patient has not been taking Plavix, unsure if she was told to stop. Recommend calling classroom technology technician JOSE and find out if she should still be taking Prescription instructions reviewed with patient as applicable. Potential red flag symptoms discussed with the patient. Reviewed appropriate action plan to take if red flag symptoms occur. Patient agreeable to treatment plan. Kristina Nur APRN.CNP documented in this encounter [facility] 04-29-2022 Miscellaneous Notes Pt has been scheduled with Dr. Cardenas on 05/01/2022 at 1:45 PM JORDON Giang Gen Surg- Please advise. Perhaps one of the general surgeons here could see her sooner. Keep appointment however with Dr. Brambila. Kingsley Washburn DO DISCHARGE CALL BACK Today's date: April 24, 2022 Notified of Pt discharge by: Checked [facility] records Patient discharged on 04/23/2022 from [facility] to Home with Homecare Nurse Primary Cancer Diagnosis: Anal Cancer Admitting Diagnosis: Patient presented to ED on 04/10/22 d/t a fall, discharged to [facility]. Patient was readmitted on 04/19/2022 d/t confusion. See hospital notes below, copied from [facility]. Hospital Course: Patient is a 76-year-old female with past medical history as outlined was admitted through the ED with a complaint of mechanical fall at home after she lost her balance. She fell hard on her buttocks and landed very hard on her left lower extremity which bent underneath her. She was unable to weight-bear on the left lower extremity. Pain gradually worsened so she came into the ED. Patient was being treated for rectal cancer and had been following up at [facility] for possible surgical procedure after neoadjuvant chemo. Imaging done showed possible avascular necrosis of the left femoral head. CT of the left lower extremity showed deformity of the left femoral head with subchondral cystic changes that was suggestive of avascular necrosis as well as subchondral geode is in the superior lateral aspect of the acetabulum with a mild degree of joint space narrowing. She was admitted and managed for debility due to left lower extremity avascular necrosis. TOT was ordered. Orthopedic surgery was consulted and recommended conservative management. Patient was placed on oxycodone and subsequently needed OxyContin as well to help with her pain. She worked with physical therapy and was deemed as needing skilled care. [facility]. She was discharged with a prescription for p.o. oxycodone 5 mg every 6 hours as needed for 5 days for total of 20 tablets as well as MS Contin 10 mg twice daily for 5 days with a total of 20 tablets. She is follow-up with her primary care doctor within 1 to 2 weeks and follow-up with orthopedic surgery. OARRS score was checked and no red flags were seen. Patient was transferred back from the ECF to the [facility] ED d/t confusion 04/19/2022 Hospital Course: 1. Acute metabolic and toxic encephalopathy secondary to HEATHER and narcotics/elevated [id number]-old female with a history of rectal cancer presented to the hospital with confusion from a her SNF. She was found to be in acute renal failure which was complicated by the fact that she is both on oxycodone and OxyContin. FENa demonstrated that her renal failure was indeed prerenal due to dehydration so she was started on IV fluids and had rapid improvement. She was again to be stable for discharge yesterday however she spiked her blood pressures so her home medications were restarted as her renal function had improved and she was also added Norvasc to her medication regimen. We slowly reintroduced her oxycodone, I decided to make her Ativan as needed and to decrease her OxyContin from 20 mg twice a day to 10 mg twice a day. She is also on gabapentin but this is only 100 mg 4 times daily so unlikely to be a significant contributor 20 encephalopathy. Her daughter was dissatisfied with the care she was [facility] the [facility] and elected to take her home. I discussed with her about the plan for discharge and she expressed understanding of the risk and benefits of going home and would like to go home today. I do recommend that she follow-up with her PCP in 3 to 5 days for outpatient monitoring to monitor her hemoglobin which is low secondary to anemia, she does have multiple history of recent GI bleeds though there was not any apparent bleeding on this admission as well as monitoring her renal function. She denies any chest pain during this hospitalization elevated troponin was unremarkable and was likely related to her acute renal failure. Echo was obtained which was negative for any wall motion abnormality we will continue on her home medications. 2. Intractable pain due to avascular necrosis of the hip, depression, coronary artery disease status post stenting and CABG, GERD, hypertension, hypothyroidism, history of rectal cancer all chronic medical conditions which complicate her care. Her home medications were continued where appropriate. Medication adjustments were noted above. Discharge Summary/SBAR reviewed: Yes Handoff Discussed with [employer] Coach: N/A Psychosocial Risk Factors: None If patient discharged to SNF/Rehab Facility, phone call completed to reinforce discharge instructions and follow up: N/A Call Disposition: Patient was instructed to follow-up with PCP in 1 week. Patient has follow-up with PCP 04/30/2022. Patient was admitted to [facility] d/t a fall on 04/10/22. CT showed CT of the left lower extremity showed deformity of the left femoral head with subchondral cystic changes that was suggestive of avascular necrosis as well as subchondral geode is in the superior lateral aspect of the acetabulum with a mild degree of joint space narrowing. Ortho was consulted who recommended surgical management. Patient was later transferred to [facility] for PT/OT. Patient was readmitted to [facility] d/t confusion. Patient had an HEATHER, prerenal, d/t dehydration, patient was given IVF. See hospital notes copied into encounter. Patient was eventually discharged home on 04/23/22 and informed to follow-up with PCP for anemia and monitoring renal function. Patient cancelled follow-up with Dr. Brambila d/t being admitted at [facility]. Patients daughter messaged Dr. Brambila's office for a follow-up appointment which was scheduled for 06/17/22. Patient is on a wait list for an earlier appointment. Patient has a hospital f/up appointment with PCP 04/30/22. Patients next OV with our office is with Annalisa on 05/22/2022. Comfort Davila RN documented in this encounter [facility] 04-29-2022 Miscellaneous Notes left message to notify nurse that meds were sent at discharge. They may need to check with pharmacy and to call back if needed. Charla Butler LPN When reviewing the discharge summary, it appears Dr. Roberts did send prescriptions on discharge. Were they possibly electronic and at the pharmacy? Thank you Lizz Nur APRN.BRAULIO Becky LOPEZ calling from [facility] to report plan of care for patient and SN will visit patient 2 times a week for five weeks. SN will work with patient on disease and medication education. Becky reports patient was discharged with no prescriptions for medications. Medications include: Gabapentin 100 mg four times daily Meclizine 25 mg daily prn dizziness Oxycodone 5 mg every 6 hours prn x 5 days Oxycontin 10 mg twice daily HCTZ 12.5 mg daily Pended meclizine and HCTZ for review. Gabapentin ordered on 04/09/2022 and dose is less now. Oxycodone and Oxycontin not pended. Kylie Llanos RN documented in this encounter [facility] 04-24-2022 Miscellaneous Notes Pt was in the hospital on 04/23/22 and has a follow up on 04/30/22. Bessie Walters LPN Daughter calling and her mother is in [facility]. Daughter is asking if there is anyway to get pain medication for mother. Daughter reports pt can not get out of bed because of the pain. She reports when pt was in the hospital they were given her medications and she was able to get up and product safety head around. Daughter concerned nothing is being done and pt lays there. Pt reports she is trying to buy a home where pt can live with her. Please review and advise daughter if there is anything that can be ordered for her. Bessie Walters LPN documented in this encounter [facility] 04-23-2022 Miscellaneous Notes Yulisa notified. Abhilash Thornton Ma Provider will sign and follow. Thank you Lizz Nur APRN.BRAULIO Yulisa with [facility] called to let you know pt will be d/c from today or tomorrow. They have ordered nursing, PT, OT, Home Health Aide and hospice social worker. DX encephalopathy, renal failure, non stemi, altered mental status. They would like to see pt on 04-24-[address] Parikh will follow Home Health. Please advise Yulisa. Bessie Walters LPN documented in this encounter [facility] 04-23-2022 Miscellaneous Notes Patient has since been admitted to [facility]. Daughter has been in contact with hem/onc Closing this encounter as it is over 2 weeks old. T/C daughter. VM is full. I have reorderd this, but patient should discuss at upcoming appointment with hematology. Thank you Lizz Nur APRN.BRAULIO Spoke with patient's daughter - She states that patient has been taking gabapentin and was not aware this was to be discontinued by Dr. Feldman. She states only as of recent she has been without medication. Dispense report does show that this was refilled in February for 30 days. Please review and advise. Phoned patient and unable to leave message due to mail box full. Charla Butler LPN We have not filled this in almost a year with only 6 months worth of medication at that time. Is she getting this refilled elsewhere or stopped it? Dr. Feldman put as discontinued at his November visit with her. Thank you Lizz Nur APRN.BRAULIO Patient called to refill her gabapentin; noted as discontinued medication. Uses [facility] in [place]. documented in this encounter [facility] 04-21-2022 Miscellaneous Notes Noted. Will follow [facility] records and have Dr. Washburn review after discharge. Comfort Davila RN documented in this encounter [facility] 04-17-2022 Miscellaneous Notes Daughter notified. Bessie Walters LPN Left message for return call. In reviewing past notes. It is documented history of dementia and a few years ago was on Aricept for this. This has not been prescribed or dementia reviewed by PCP recently. Thank you Lizz Nur APRN.BRAULIO Pt's daughter, Shyanne VILLAGRAN), calls to report pt is currently in [facility]. Pt is unable to walk because of hip pain. Pt was advised she needs a hip replacement per . Pt has an appt 04/[address] Brambila at [facility] about removing remaining cancer in rectal area. This has to be done before hip surgery and pt also has to be cleared by classroom technology technician before hip surgery. Daughter reports that unknown to her pt changed insurance Medicare A & B to Medicare C. Medicare C will not cover pt to be in NH unless there is a dx of dementia. Daughter reports she knows pt was at one time on dementia medication with previous dr. Daughter is not sure if current pcp did any type of dementia testing. Daughter reports pt's boyfriend of 18 years and pt is grieving, pt has not been taking medication as she is supposed to, cannot get around because of hip, plus has cancer and needs 24 hr care but Medicare C will not allow pt to be in NH for any of those reasons. Daughter is asking for pcp to review dementia dx. Also if dr knows anything that would be helpful to let her know. Daughter reports pt makes too much for Medicaid and it would take too long to rearrange finances to qualify when NH is needed now. Daughter is going to talk to [facility] hospice social worker also. Kendy Chavez LPN documented in this encounter [facility] 03-26-2022 Miscellaneous Notes I spoke with patient's daughter, they do not need this medication refilled. Request discontinued. Rayna Bailey LPN pt is done with chemo. Last tx was in December 2021. Tried to call pt to discuss need.No answer, left message to call office. Did she request the refill or was an automatic req from the pharmacy. If she requested, why does she still need it? Bety Albrecht LPN Patient has been identified by name and date of : Yes Last office visit in this department: Visit date not found RX INSTRUCTIONS: Patient aware RX will be sent to pharmacy. No need to notify patient. Patient phones requesting refills as follows: Requested Prescriptions Pending Prescriptions Disp Refills bfxrxlqfzrQOQFF-iucvnt-pupswvhqt (BMX 1:1:1) 1:1:1 liqd 180 mL 1 Sig: Take 5 mL by mouth every 6 hours as needed. Please review and advise. Tanesha Lunsford Pss documented in this encounter [facility] 03-25-2022 Miscellaneous Notes Spoke with pt's daughter and she reports pt gets medication below from Dr. Asif. She will check with pt to see if there was something else she wanted a refill on. They will contact us if needed. Bessie Walters LPN We have never prescribed this for her before. Is there a different medication she meant to request refill for? Thank you Lizz Nur APRN.BRAULIO Last refill: Historical med. Patient has been identified by name and date of : Yes Requested Prescriptions Pending Prescriptions Disp Refills LORazepam (ATIVAN) 1 mg tablet Sig: Take 1 tablet by mouth four times daily. RX INSTRUCTIONS: Patient aware RX will be sent to pharmacy. No need to nofity patient. Controlled medication - must be call in. Cindi Huynh Pss documented in this encounter [facility] 02-28-2022 Miscellaneous Notes Patient calls to request an appointment tomorrow for dizziness. Nurse triage completed. Protocol recommends to go to ED now. Patient has no transportation and is going to call an ambulance to transport. Care advice reviewed. Patient verbalizes understanding. Reason for Disposition SEVERE dizziness (e.g., unable to stand, requires support to walk, feels like passing out now) Answer Assessment - Initial Assessment Questions 1. DESCRIPTION: Dizzy but not dizzy. Light headed but not light headed. Very off balance. Short of breath. Anxious. When asked if she felt like she could pass out patient didn't answer and then said she wasn't certain she was dizzy but not dizzy. Patient was difficult to assess. Not certain what symptoms she was having but sounded like she needed to be evaluated now. Patient agreeable to contacting squad to take to ED. 2. LIGHTHEADED: Yes and No. 3. VERTIGO: Yes and No 4. SEVERITY: Patient reports no falls but very unsteady. Not certain but sounds severe. 5. ONSET: The past 4 days 6. AGGRAVATING FACTORS: Patient not certain 7. HEART RATE: Not able to 8. CAUSE: Patient not certain 9. RECURRENT SYMPTOM:Patient reports has had dizziness before but not like this and not sure of treatment. 10. OTHER SYMPTOMS: No fever, chest pain, vomiting, diarrhea, or bleeding. Protocols used: Dizziness - [id number] documented in this encounter [facility] 02-26-2022 Miscellaneous Notes Patient's request for medication is as follows Requested Prescriptions Signed Prescriptions Disp Refills diphenoxylate-atropine (LOMOTIL) 2.5-0.025 mg per tablet 90 tablet 0 Sig: Take 1 tablet by mouth four times daily as needed for diarrhea for up to 30 days. Authorizing Provider: FRANCIA, LAPMAN traZODone (DESYREL) 50 mg tablet 30 tablet 0 Sig: Take 1 tablet by mouth daily at bedtime. Authorizing Provider: ALESSANDRA FELDMAN Order entered - please phone pharmacy and notify patient. Alessandra Feldman MD documented in this encounter [facility] 02-21-2022 Note [facility] 02-21-2022 History of Presen t illness Narrative Oncologic problem(s): 1) Anal cancer. HPI: The patient is a 76-year-old female with a past medical history significant for smoking, CAD (CABG and stents x3--10/2021), hypertension, obstructive sleep apnea, COPD with chronic bronchitis, GERD, Buerger's disease, PVD (carotid stenosis), TIAs and hypothyroidism. Patient was admitted to [facility] on 10/08/2021 after presenting to the ED with complaints of chest pain. Hemoglobin was 8.4 g/dL and she endorsed rectal bleeding. Diagnosed with non-ST elevation HI. She was managed medically. Underwent colonoscopy to evaluate GI bleed. Hemorrhoids were found on perianal exam. A 5 mm polyp was found in the rectum. The polyp was sessile. The polyp was removed with a cold biopsy forceps. Resection and retrieval were complete. This was biopsied with a cold snare for histology. Two small patchy angiodysplastic lesions with bleeding were found at the splenic flexure. Coagulation for hemostasis using heater probe was successful. Estimated blood loss was minimal. Many large-mouthed diverticula were found in the recto-sigmoid colon and sigmoid colon. There was no evidence of diverticular bleeding. Moderate inflammation characterized by erosions, erythema and friability was found in the recto-sigmoid colon. A frond-like/villous non-obstructing medium-sized mass was found at the anus. The mass was non-circumferential. The mass measured three cm in length. In addition, its diameter measured four mm. Oozing was present. This was biopsied with a cold forceps for histology. Verification of patient identification for the specimen was done. Estimated blood loss was minimal. Pathology: A. Rectal polyp, biopsy: -Hyperplastic polyp. B. Anal mass, biopsy: -Squamous cell carcinoma COMMENT B. Sections show fragments of superficial squamous mucosa with squamous cell carcinoma in situ. Definitive invasion is not identified. CT chest was performed on presentation to the hospital and she was not found to have pulmonary embolism. There was a healing fracture of the left humeral neck. She underwent cardiac catheterization with stent placement to the proximal RCA and mid circumflex. At time of discharge, hemoglobin was 8.5 g/dL. --------- Presents for ongoing oncologic management. Previous treatment: Mitomycin-C 10mg/m2 IV day 1 and day 29 5-FU (1000mg/m2/day) CIV over 96 hours day 1-4; 29-32 Completed RT 01/08/2022. Interim history: She has no complaints today. Appetite doing well. Denies nausea. No abdominal pain. Occasionally has pain in right groin. Able to void her bladder to completion. No gross hematuria or dysuria. No anal pain. Still having occasional diarrhea. Has not had any bleeding from hemorrhoids. Continues on apixaban. PMH, medications and allergies personally reviewed by me today. Any changes documented in appropriate section. PHYSICAL EXAM: VITALS: Blood pressure 125/65, pulse 63, temperature 36.4 C (97.5 F), temperature source Temporal, weight 59.6 kg (131 lb 8 oz). Well-appearing and in no acute distress. EYES: Sclerae are anicteric bilaterally. No findings of thrush or stomatitis. LYMPHATIC: There is no palpable cervical, supraclavicular or inguinal adenopathy. RESPIRATORY: Inspiratory breath sounds are of diminished intensity in all cortes. No rales, wheezes or rhonchi. CARDIOVASCULAR: Rhythm is regular. ABDOMEN: The abdomen is nondistended. No organomegaly. No tenderness. Perianal/: No perianal irritation. There are a number of external hemorrhoids that are soft. Firmer hemorrhoid right side of the anus is unchanged from previous exam. It is nontender. Anteriorly, no firmness or mass appreciated. Extremities: No swelling or edema. SKIN: No jaundice. NEUROLOGIC: loan interviewer II-XII are grossly intact. No focal motor weakness. LABS: Component Latest Ref Rng & Units 02/21/2022 WBC 3.70 - 11.00 k/uL 8.04 RBC 3.90 - 5.20 m/uL 4.05 Hemoglobin 11.5 - 15.5 g/dL 10.8 (L) Hematocrit 36.0 - 46.0 % 35.1 (L) MCV 80.0 - 100.0 fL 86.7 MCH 26.0 - 34.0 pg 26.7 MCHC 30.5 - 36.0 g/dL 30.8 RDW-CV 11.5 - 15.0 % 16.9 (H) Platelet Count 150 - 400 k/uL 288 MPV 9.0 - 12.7 fL 9.3 Neut% % 53.7 Abs Neut (ANC) 1.45 - 7.50 k/uL 4.32 Lymph% % 35.0 Abs Lymph 1.00 - 4.00 k/uL 2.81 Geneva% % 7.7 Abs Geneva <0.87 k/uL 0.62 Eosin% % 2.6 Abs Eosin <0.46 k/uL 0.21 Baso% % 0.6 Abs Baso <0.11 k/uL 0.05 Immature Gran % % 0.4 IMMATURE GRANS (ABS) <0.10 k/uL 0.03 NRBC /100 WBC 0.0 Absolute nRBC <0.01 k/uL <0.01 DTYPE Auto Protein, Total 6.3 - 8.0 g/dL 6.7 Albumin 3.9 - 4.9 g/dL 3.9 Calcium 8.5 - 10.2 mg/dL 8.9 Bilirubin, Total 0.2 - 1.3 mg/dL 0.6 Alkaline Phosphatase 34 - 123 U/L 136 (H) AST 13 - 35 U/L 19 ALT 7 - 38 U/L 8 Glucose 74 - 99 mg/dL 107 (H) BUN 7 - 21 mg/dL 11 Creatinine 0.58 - 0.96 mg/dL 0.77 Sodium 136 - 144 mmol/L 140 Potassium 3.7 - 5.1 mmol/L 3.8 Chloride 97 - 105 mmol/L 105 CO2 22 - 30 mmol/L 27 Anion Gap 9 - 18 mmol/L 8 (L) eGFR >=60 mL/min/1.73m 81 ASSESSMENT/PLAN: (C21.0) Malignant neoplasm of anus (HCC) (primary encounter diagnosis) Assessment: -The patient is a 76-year-old female with a past medical history outlined above who was recently diagnosed with a 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 -Pathology demonstrated in situ squamous cell carcinoma but exam suggested more extensive disease. -Saw gynecology. Pap test negative. -PET scan and MRI were negative for metastatic disease. -Second cycle of chemotherapy abbreviated. She only received approximately 48 hours of infusional 5-fluorouracil. No Mitomycin-C. -Completed radiation 01/08. -On exam she appears to have response. I cannot determine degree of response on my exam. Plan: -Follow up with Dr. Brambila in March. -OV with labs in about 3-4 months. -CTs annually beginning January this year and up to 3 years. (I26.99) Pulmonary embolism -No anginal symptoms. Plan: -Continue apixaban 5 mg twice daily. CAD Assessment: -She remains on Plavix daily. -No symptoms of angina. -She has not yet followed up with cardiology. Plan: -Advised her to contact [facility] heart group for follow-up appointment. She acknowledged she would do so. Portions of this documentation were copied and pasted from previous office visit notes in order to provide a cohesive continuity of the history. The note has been reviewed and edited and updated as necessary. During this patient visit I have spent approximately 20 minutes out of 25 in counseling regarding treatment options and medications and coordinating care. 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 INTERVAL HISTORY: She is here for a routine follow-up about a month after radiation treatment. She is doing well without any specific new complaints. She denies any pain in the anal/pelvis area. She has bowel movements without difficulties. She has urinary incontinence. She was found to have UTI last month and was treated with 1 week course of macrobid. ALLERGIES Allergen Reactions Bupropion Other: See Comments high doses can not tolerate Dilaudid [Other] Mental Status Change Morphine Hcl Mental Status Change Nubain [Nalbuphine * Orphenadrine Penicillins Rash Ultram [Tramadol Hc* Rash MEDICATIONS: atorvastatin (LIPITOR) 40 mg tablet Take 1 tablet by mouth daily at bedtime. For cholesterol. atenolol (TENORMIN) 50 mg tablet Take 1 tablet by mouth once daily. traZODone (DESYREL) 50 mg tablet Take 1 tablet by mouth daily at bedtime. lisinopril (ZESTRIL, PRINIVIL) 20 mg tablet Take 1 tablet by mouth once daily. diphenoxylate-atropine (LOMOTIL) 2.5-0.025 mg per tablet Take 1 tablet by mouth four times daily as needed for diarrhea for up to 90 doses. apixaban (ELIQUIS) 5 mg tab(s) Take 1 tablet by mouth twice daily. lactobacillus comb no.10 (PROBIOTIC) 20 billion cell cap Take 1 capsule by mouth once daily. ondansetron (ZOFRAN) 8 mg tablet Take 1 tablet by mouth every 12 hours as needed for nausea/vomiting. daxozvxjirBKSGI-szatpp-kfdszlwqz (BMX 1:1:1) 1:1:1 liqd Take 5 mL by mouth every 6 hours as needed. pantoprazole DR (PROTONIX) 40 mg tablet Take 1 tablet by mouth twice daily. LORazepam (ATIVAN) 1 mg tablet Take 1 mg by mouth four times daily. Melatonin 5 mg cap Take 1 capsule by mouth at bedtime as needed. levothyroxine (SYNTHROID) 75 mcg tablet Take 1 tablet by mouth once daily. oxybutynin XL (DITROPAN XL) 5 mg 24 hr tablet Take 1 tablet by mouth once daily. albuterol HFA (PROAIR HFA) 90 mcg/actuation inhaler Inhale 2 Puffs as instructed every 6 hours as needed. fluticasone (FLONASE) 50 mcg/actuation nasal spray Use 2 Sprays in each nostril once daily. Rinse mouth after use. clopidogrel (PLAVIX) 75 mg tablet Take 1 tablet by mouth every other day. Every other day. meloxicam (MOBIC) 7.5 mg tablet Take 2 tablets by mouth once daily. Take with food. valACYclovir (VALTREX) 500 mg tablet Take 1 tablet by mouth once daily. (Patient not taking: Reported on 02/13/2022) potassium chloride ER (K-DUR, KLOR-CON) 20 mEq tablet Take 1 tablet by mouth twice daily. ferrous fumarate-vit C-vit B12 66 mg iron- 250 mg-10 mcg cap Take 1 Each by mouth once daily. PHYSICAL EXAM: VS: BP 143/65 Pulse 70 Temp 36.8 C (98.3 F) (Temporal) Resp 15 Wt 60.1 kg (132 lb 8 oz) BMI 25.04 kg/m KPS: 70 General Appearance: Alert and oriented. No acute distress. Perianal skin healed well. ASSESSMENT AND PLAN: Clinically stable. She is recovering well from acute chemoradiation treatment effects. She has urinary frequency and incontinence. She had recent UTI confirmed by urine culture treated with 1 week course of Macrobid. I will get urine culture to ensure that UTI is cleared. She is scheduled to see Dr. Washburn next week and she will contact Dr. Raz Brambila's office to make a follow-up appointment. Signed by: Mariano Purdy MD cc: Ashley Parikh [address] [place] [id number] documented in this encounter [facility] 02-13-2022 Nurse Note Radiation Therapy - Nursing Note (Follow-up) PATIENT NAME: Charissa Wallace PATIENT February 13, 2022 [facility] FACILITY/LOCATION: [place] Reason for visit: Follow up. Subjective Data No c/o Additional Data Do you want to see a Ground Wirer? No Nursing Assessment Fatigue: moderate; causing difficulty performing some activities Appetite: fair Weight Gain/Loss: Yes Last 6 Encounter Wt Readings: Date: Wt: 02/13/2022 60.1 kg (132 lb 8 oz) 01/08/2022 0 kg () 01/03/2022 62.6 kg (138 lb) 01/03/2022 62.6 kg (138 lb) 12/13/2021 65.1 kg (143 lb 8 oz) 12/10/2021 65.3 kg (144 lb) Bowel Function: normal bowel movements Bone Pain: none Focused Assessment HEALTH SERVICES DIRECTOR - FEMALE PELVIS: Rectal bleeding: No. Rectal pain: No. Urinary frequency (D/N): 10-01/14. Vaginal bleeding: No. Was approved? unknown SIGNED by: Tita Mott RN documented in this encounter [facility] 01-30-2022 Miscellaneous Notes Patient has been identified by name and date of : Yes Last office visit in this department: 10/30/2021 RX INSTRUCTIONS: Patient aware RX will be sent to pharmacy. No need to notify patient. Patient phones requesting refills as follows: Requested Prescriptions Pending Prescriptions Disp Refills atorvastatin (LIPITOR) 40 mg tablet 90 tablet 1 Sig: Take 1 tablet by mouth daily at bedtime. For cholesterol. atenolol (TENORMIN) 50 mg tablet 90 tablet 1 Sig: Take 1 tablet by mouth once daily. Please review and advise. Tanesha Lunsford Pss documented in this encounter [facility] 01-29-2022 Miscellaneous Notes Called and spoke with Shyanne, she is not sure what her Mom is or isn't taken. She did talk with her sister and patient has Celexa prescribed by Dr. Parikh. Shyanne states she asked her Mom if she has been taken that and patient states no. Shyanne given message below. She will have patient stop iron supplements, she will check if she is taking Protonix or Mobic and call us back. She will have her Mom decrease Trazadone to 25mg at HS. Shyanne states that he Mom will not decrease Ativan to less than 4 x daily because she has been on this for years and they tried decreasing before and she did not handle it. Shyanne plans to get list of medication from drug store and go over medication with her Mom and find out what she has and has not been taking and call us back for any clarifications. Shyanne denies further questions or issues at this time. Tatianna Scott RN I reviewed the ED records. Her blood counts are doing well--less anemic. Chemistries did not suggest dehydration. I think she is overmedicated. Her psychiatrist is prescribing the Ativan. I had given her an increase in dose of trazodone to help her sleep better. Advise her now to decrease the trazodone to 25 mg at bed time and decrease the Ativan to no more than twice a day. She should contact her psychiatrist for further management of her depression/anxiety. For the nausea, I would advise she stop taking iron supplement if she has been continuing to do so. Roland is on her medication list but she was only given 30 tablets in July. There were no refills. Verify she is taking pantoprazole 40 mg twice daily. If so then she may need repeat EGD. Kingsley Washburn DO Spoke with daughter, Shyanne. She states patient is very fatigue and no energy. She is barely eating anything and I have offered her everything she had some jello yesterday. She does not live the patient and not sure how much she actually eats or drinks. I know she has lost more weight States she tries to offer her water or gaterade and patient gets upset with her. Patient was in the ER on 01/27/22, discharge summary reviewed. No significant finding. They gave her normal saline bolus and sent home. Discharge summary printed for Dr. Washburn to review. Shyanne states that patient did not feel any better after fluid bolus. She states patient continues with an upset stomach, feels nauseated. Using Zofran and not helping? Denies emesis but patient will have dry heaves at times. None today. Patient has had a headache for the past 3 days. Shyanne convinced her to take some Tylenol this am. States she is napping at this time of phone call. States patient has lost all her hair now and this is upsetting to patient. Patient doesn't want anyone to see her. Shaynne has bought her hats and scarves but patient refusing. She is trying to set patient up at a monthly breakfast at a [facility] where patient knows people to get out of the house but she is not sure she will go. Shyanne states patient told her to take me to the hospital and just let me lay there. Shyanne is concerned that she is sad and depressed now. Patient has Ativan and Shyanne states that patient is very regimented about taking that 4 times daily. Shyanne aware that I will discuss with Dr. Washburn and call back with further instructions. Tatianna Scott RN Nav's daughter Brandi Wallace calling stating patient has a lack of appetite/upset stomach/weight loss/fatigue/confusion. Patient seen at [facility] ER on 01/27 dx: Radiation/Chemo therapy fatigue, was given something for upset stomach and set home. Please advise and call daughte. Patient uses [facility]. documented in this encounter [facility] 01-28-2022 Miscellaneous Notes Patient has been identified by name and date of : Yes Patient phones for refill(s): Requested Prescriptions Pending Prescriptions Disp Refills lisinopril (ZESTRIL, PRINIVIL) 20 mg tablet 30 tablet 0 Sig: Take 1 tablet by mouth once daily. Date of last office visit in primary care: N/A No future appt scheduled. Last 2 Encounter Wt Readings: Date: Wt: 01/08/2022 0 kg () 01/03/2022 62.6 kg (138 lb) Previous labs/tests for medication: Blood Pressure: BUN (mg/dL) Date Value 01/03/2022 8 05/23/2020 16 Sodium (mmol/L) Date Value 01/03/2022 137 05/23/2020 141 Last 1 Encounter BP Readings: Date: BP: 01/08/2022 135/62 Please advise. Thank you. Ila Martinez LPN Patient wants to know if Dr. Parikh can refill her lisinopril. Her food mobile driver prescribed it last. Patient has been identified by name and date of : Yes Requested Prescriptions Pending Prescriptions Disp Refills lisinopril (ZESTRIL, PRINIVIL) 20 mg tablet 30 tablet 0 Sig: Take 1 tablet by mouth once daily. RX INSTRUCTIONS: Patient aware RX will be sent to pharmacy. No need to notify patient. Tania Gallagher documented in this encounter [facility] 01-28-2022 Miscellaneous Notes Patient has been identified by name and date of : Yes Requested Prescriptions Pending Prescriptions Disp Refills traZODone (DESYREL) 50 mg tablet 30 tablet 0 Sig: Take 1 tablet by mouth daily at bedtime. RX INSTRUCTIONS: Patient aware RX will be sent to pharmacy. No need to notify patient. Rayna Bailey LPN documented in this encounter [facility] 01-17-2022 Miscellaneous Notes Patient notified and daughter will pickle water pump operator Rx today. Rayna Bailey LPN Her UA suggests a bladder infection. Advise her to start Macrobid twice daily x7 days. Rx sent. Kingsley Washburn DO documented in this encounter [facility] 01-14-2022 Miscellaneous Notes will be okay. Kingsley Washburn DO Spoke with pt. Daughter, she absolutely can't bring in mother tomorrow, as she herself has multiple physician appts. Will bring her in on . Stated her mother has been complaining of this pain for weeks, and nothing has been done. How its a fire , she is sorry but she unable to accommodate her mother tomorrow. Lidia Montgomery LPN Please have her get UA and urine culture tomorrow. Kingsley Washburn DO Call from patient, states that she has been having pain with urination that started during XRT treatments. Last radiation was 01/08/22. Patient states that she continues to have irritation at radiation site and using Aquaphor and that is ok but dysuria is not getting better and seems worse and also c/o of increase frequency. Denies fever/chills, abdominal pain, other pain. Urine is white or yellow. She drinks 2 large water bottles daily, Appetite is coming back but eats small frequent meals. Has had diarrhea that started last week,forgot to take Lomotil. Started Lomotil yesterday and starting to getting better. Patient uses [facility] for pharmacy. Tatianna Scott RN documented in this encounter [facility] 01-14-2022 Miscellaneous Notes Spoke with Pt's daughter and scheduled labs and 6wk ov with Wu Per notes from Dr. Washburn's last OV on 01/03/22. Sending as a reminder since no OV with our office is currently scheduled. Visit Disposition Check-out Note OV/CBC/CMP in about 6 weeks. Referral back to Dr. Raz Brambila at [facility] colorectal surgery in about 9-12 weeks. Needs to see cardiology at [facility] for follow up of HI she had this fall. Thank you. Comfort Davila RN documented in this encounter [facility] 01-13-2022 Miscellaneous Notes Spoke with PT's daughter and scheduled as directed. Images from the original note were not included. Mariano Purdy MD, Wstr Hem/Onc Psr 4 hours ago (9:16 AM) Please schedule a follow-up visit with me in one month. Thanks. documented in this encounter [facility] 01-09-2022 Miscellaneous Notes Ankita notified. Natasha Gibson Ma Ok for order and agree with [facility]. Thank you Lizz Nur APRN.BRAULIO Ankita calling from [facility] to report plan of care for patient and Detention will visit patient 1 time a week for 4 weeks. Detention will work with patient on Fall Prevention and to set up medicine boxes. Please review and Advise, Mayuri Corral RN documented in this encounter [facility] 01-08-2022 History of Presen t illness Narrative Radiation Oncology - On Treatment Review (OTR) Note PATIENT NAME: Charissa Wallace PATIENT DIAGNOSIS: Clinical stage IIA, cT2N0, squamous cell carcinoma of the anus. COURSE: definitive and concurrent chemotherapy (Mitomycin and 5FU) AREA TREATED: Pelvis/groin CURRENT DOSE: 5040 cGy in 28 fx PLANNED DOSE: 5040 cGy in 28 fx SUBJECTIVE: Patient has expected proctitis and dysuria. She declines narcotics. She has decreased her smoking. EXAM: KPS: 80 General Appearance: Alert and oriented. No acute distress. IMAGING/LAB RESULTS: None. Treatment chart checked: Yes Patient treatment site reviewed and verified:Yes CBCTs reviewed and current:Yes Medications started: lidocaine ointment was ordered for perianal skin pain ASSESSMENT/PLAN: Clinically stable. Toxicity within expected parameters. Patient has completed radiation therapy as directed by Dr. Purdy. Skin care was reviewed. Song Carlson MD This document was completed utilizing speech recognition software. Grammatical errors, random word insertions, pronoun errors, and incomplete sentences are an occasional consequence of this system due to software limitations, ambient noise, and hardware issues. Any formal questions or concerns about the content, text or information contained within the body of this dictation should be directly addressed to the provider for clarification. documented in this encounter [facility] 01-08-2022 Nurse Note AMBULATORY PATIENT EDUCATION NOTE TOPIC: SURVIVAL SKILLS: Symptom Management READINESS TO LEARN COGNITIVE ABILITY: Alert and oriented MOTIVATION TO LEARN: Interested FAMILY SUPPORT: Low - Inconsistent family involvement INSTRUCTION PROVIDED TO: Patient and family member PATIENT LEARNS BEST BY: Multiple Methods FACTORS AFFECTING LEARNING: Emotional Factors: Anxious PHYSICAL LIMITATIONS AFFECTING LEARNING: Fatigue LEARNING RESPONSE DIAGNOSIS: C21.1 METHOD OF INSTRUCTION: Teach Back skin care Individual instruction Written instruction - handouts Verbal instruction PATIENT / FAMILY RESPONSE: Verbalizes understanding of: SYMPTOM MANAGEMENT-Correct actions to take to manage symptoms associated with his/her disease/illness FOLLOW-UP PLAN: Patient instructed to call with any further issues Reinforce - Repeat previous content Contact information given. SUPPLEMENTAL MATERIAL: D/C sheet REFERRAL (RECOMMENDATION): None Written discharge instructions given and reviewed with patient. Patient verbalizes understanding. Encouraged to call with any questions or concerns. Instruction for follow up appointment given by Dr. Purdy. Electronically Signed By: Tita Mott RN In Department: RADIATION ONCOLOGY Time spent on patient education: 05 minutes. Radiation Therapy - Nursing Note (OTV) PATIENT NAME: Charissa Wallace PATIENT January 08, 2022 [facility] FACILITY/LOCATION: [place] NURSING NOTE TYPE: HEALTH SERVICES DIRECTOR - FEMALE PELVIS Subjective Data No c/o Additional Data Do you want to see a Ground Wirer? No Status: Post-menopausal. Stress Scale: On a scale of 0 to 10, what number best describes how much distress you have experienced in the past week?(0 being no distress and 10 being extreme distress) 8 Social work notified: Pt denied need to see hospice social worker at this time. Nursing Assessment Fatigue: severe; loss of ability to perfrom some activities Appetite: good Nutritional Intake: Regular oral intake. Weight Gain/Loss: No Ambulatory weight history: Last 6 Encounter Wt Readings: Date: Wt: 01/08/2022 0 kg () 01/03/2022 62.6 kg (138 lb) 01/03/2022 62.6 kg (138 lb) 12/13/2021 65.1 kg (143 lb 8 oz) 12/10/2021 65.3 kg (144 lb) 12/10/2021 65.3 kg (144 lb) Nausea:None Vomiting: None Bowel Function: normal bowel movements Erythema/Hyperpigmentation:sever e Desquamation:moist Rash:none Skin Care: Aquaphor Skin Sensation: Within Normal Limits Focused Assessment RECTAL: Dysuria: none, Urinary urgency/frequency: incontinence, Rectal pain severe pain: pain or analgesics severely interfering with activities of daily living, and Rectal bleeding none SIGNED by: Tita Mott RN documented in this encounter [facility] 01-08-2022 Nurse Note This education was completed on 11/07/2021 and documented in a separate encounter. Comfort Davila RN documented in this encounter [facility] 01-08-2022 History of Presen t illness Narrative CHARISSA WALLACE [id number] : 1945 01/08/2022 [facility] Department of Radiation Oncology RADIATION ONCOLOGY - COMPLETION NOTE DATE OF SIMULATION: 10/29/21 DATES OF TREATMENT: 11/12/21 - 01/08/22 UNIT: W_[facility] AREA TREATED: Pelvis/groin DISEASE: Clinical stage IIA, cT2N0, squamous cell carcinoma of the anus. DELIVERED DOSE: 5040 cGy in 28 fractions treating to the 97.5% isodose line with 10 MV and 3 vmat cortes. Concurrent chemotherapy with Mitomycin and 5-FU. ELAPSED TIME: 58 days. TOLERANCE/ RESPONSE: She had significant diarrhea and nausea from treatments and dehydration. She required treatment break and chemotherapy was held since then. After that, she tolerated treatment well without diarrhea or nausea. Toward the end course of treatments, she developed proctitis and dysuria. REMARKS: Four week follow-up with me. Staff Physician MARIANO PURDY M.D. / 29:15 AM Electronically Signed cc: Ashley Parikh [address] [phone] Kingsley Washburn [address] [place] [phone] Raz Brambila documented in this encounter [facility] 01-04-2022 Miscellaneous Notes Left detailed vm on identified vm with provider's message. Verbal ok for eval. Becky- [facility] HH- reports patient had a missed visit today. Patient had radiation today and does not feel up to appt. The order was for HH to do an eval. Asking for verbal order to do eval next week. Please phone Becky with verbal. documented in this encounter [facility] 01-03-2022 History of Presen t illness Narrative Oncologic problem(s): 1) Anal cancer. HPI: The patient is a 76-year-old female with a past medical history significant for smoking, CAD (CABG and stents x3--10/2021), hypertension, obstructive sleep apnea, COPD with chronic bronchitis, GERD, Buerger's disease, PVD (carotid stenosis), TIAs and hypothyroidism. Patient was admitted to [facility] on 10/08/2021 after presenting to the ED with complaints of chest pain. Hemoglobin was 8.4 g/dL and she endorsed rectal bleeding. Diagnosed with non-ST elevation HI. She was managed medically. Underwent colonoscopy to evaluate GI bleed. Hemorrhoids were found on perianal exam. A 5 mm polyp was found in the rectum. The polyp was sessile. The polyp was removed with a cold biopsy forceps. Resection and retrieval were complete. This was biopsied with a cold snare for histology. Two small patchy angiodysplastic lesions with bleeding were found at the splenic flexure. Coagulation for hemostasis using heater probe was successful. Estimated blood loss was minimal. Many large-mouthed diverticula were found in the recto-sigmoid colon and sigmoid colon. There was no evidence of diverticular bleeding. Moderate inflammation characterized by erosions, erythema and friability was found in the recto-sigmoid colon. A frond-like/villous non-obstructing medium-sized mass was found at the anus. The mass was non-circumferential. The mass measured three cm in length. In addition, its diameter measured four mm. Oozing was present. This was biopsied with a cold forceps for histology. Verification of patient identification for the specimen was done. Estimated blood loss was minimal. Pathology: A. Rectal polyp, biopsy: -Hyperplastic polyp. B. Anal mass, biopsy: -Squamous cell carcinoma COMMENT B. Sections show fragments of superficial squamous mucosa with squamous cell carcinoma in situ. Definitive invasion is not identified. CT chest was performed on presentation to the hospital and she was not found to have pulmonary embolism. There was a healing fracture of the left humeral neck. She underwent cardiac catheterization with stent placement to the proximal RCA and mid circumflex. At time of discharge, hemoglobin was 8.5 g/dL. --------- Presents for ongoing oncologic management. Current treatment: Mitomycin-C 10mg/m2 IV day 1 and day 29 5-FU (1000mg/m2/day) CIV over 96 hours day 1-4; Interim history: Was having diarrhea up until yesterday when starting eating smaller amounts more frequently. Small formed BM this am. No further perivaginal itching. Continues on apixaban. PMH, medications and allergies personally reviewed by me today. Any changes documented in appropriate section. PHYSICAL EXAM: VITALS: Blood pressure 153/73, pulse 73, temperature 36.9 C (98.4 F), temperature source Temporal, weight 62.6 kg (138 lb). Well-appearing and in no acute distress. EYES: Sclerae are anicteric bilaterally. No findings of thrush or stomatitis. LYMPHATIC: There is no palpable cervical, supraclavicular, axillary or inguinal adenopathy. RESPIRATORY: Inspiratory breath sounds are of diminished intensity in all cortes. No rales, wheezes or rhonchi. CARDIOVASCULAR: Rhythm is regular. ABDOMEN: The abdomen is nondistended. No organomegaly. No tenderness. Perianal/: Perianal minimal irritation with continued reduction in tumor size. Extremities: No swelling or edema. SKIN: No jaundice. NEUROLOGIC: loan interviewer II-XII are grossly intact. No focal motor weakness. LABS: Component Latest Ref Rng & Units 12/10/2021 12/13/2021 01/03/2022 WBC 3.70 - 11.00 k/uL 6.06 6.16 5.58 RBC 3.90 - 5.20 m/uL 3.56 (L) 3.71 (L) 3.59 (L) Hemoglobin 11.5 - 15.5 g/dL 9.5 (L) 9.8 (L) 9.8 (L) Hematocrit 36.0 - 46.0 % 29.6 (L) 30.9 (L) 31.2 (L) MCV 80.0 - 100.0 fL 83.1 83.3 86.9 MCH 26.0 - 34.0 pg 26.7 26.4 27.3 MCHC 30.5 - 36.0 g/dL 32.1 31.7 31.4 RDW-CV 11.5 - 15.0 % 23.6 (H) 23.8 (H) 23.0 (H) Platelet Count 150 - 400 k/uL 291 274 229 MPV 9.0 - 12.7 fL 9.5 9.7 9.2 Neut% % 66.6 74.6 77.1 Abs Neut (ANC) 1.45 - 7.50 k/uL 4.04 4.59 4.31 Lymph% % 17.2 13.3 12.2 Abs Lymph 1.00 - 4.00 k/uL 1.04 0.82 (L) 0.68 (L) [place]% % 8.6 6.2 7.2 Abs [place] <0.87 k/uL 0.52 0.38 0.40 Eosin% % 6.6 5.0 2.7 Abs Eosin <0.46 k/uL 0.40 0.31 0.15 Baso% % 0.5 0.6 0.4 Abs Baso <0.11 k/uL 0.03 0.04 <0.03 Immature Gran % % 0.5 0.3 0.4 IMMATURE GRANS (ABS) <0.10 k/uL 0.03 <0.03 <0.03 NRBC /100 WBC 0.0 0.0 0.0 Absolute nRBC <0.01 k/uL <0.01 <0.01 <0.01 DTYPE Auto Auto Auto Protein, Total 6.3 - 8.0 g/dL 6.2 (L) 6.2 (L) 6.2 (L) Albumin 3.9 - 4.9 g/dL 3.9 3.7 (L) 3.6 (L) Calcium 8.5 - 10.2 mg/dL 8.5 8.4 (L) 8.4 (L) Bilirubin, Total 0.2 - 1.3 mg/dL 0.5 0.6 0.6 Alkaline Phosphatase 34 - 123 U/L 107 114 126 (H) AST 13 - 35 U/L 13 13 12 (L) ALT 7 - 38 U/L 8 7 5 (L) Glucose 74 - 99 mg/dL 99 111 (H) 113 (H) BUN 7 - 21 mg/dL 13 12 8 Creatinine 0.58 - 0.96 mg/dL 0.70 0.65 0.61 Sodium 136 - 144 mmol/L 137 139 137 Potassium 3.7 - 5.1 mmol/L 3.8 3.4 (L) 3.8 Chloride 97 - 105 mmol/L 102 104 103 CO2 22 - 30 mmol/L 27 28 28 Anion Gap 9 - 18 mmol/L 8 (L) 7 (L) 6 (L) eGFR >=60 mL/min/1.73m 91 93 94 Magnesium 1.7 - 2.3 mg/dL 1.7 1.8 1.8 ASSESSMENT/PLAN: (C21.0) Malignant neoplasm of anus (HCC) (primary encounter diagnosis) Assessment: -The patient is a 76-year-old female with a past medical history outlined above who was recently diagnosed with a 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 -Pathology demonstrated in situ squamous cell carcinoma but exam suggested more extensive disease. -Saw gynecology. Pap test negative. -PET scan and MRI were negative for metastatic disease. -Right labial majora lesions suspicious for herpetic outbreak. responded to Valacyclovir. -She has missed a lot of radiation and still has 15 fractions to go. -Second cycle of chemotherapy abbreviated. She only received approximately 48 hours of infusional 5-fluorouracil. No Mitomycin-C. -If does not have complete her optimal response to chemoradiation then she may require salvage therapy at some point. Plan: -Continue radiation therapy. -Continue Valacyclovir 500 mg daily as a prophylactic dose x1 month. -Office visit with lab work in about 6 weeks. -Follow up with Dr. Brambila in about 9-12 weeks. (I26.99) Pulmonary embolism -No anginal symptoms. Plan: -Lisinopril to 10 mg once daily -Continue apixaban 5 mg twice daily -Continue Plavix 75 mg once daily because of coronary stents. -Needs follow up with cardiology--my staff will help her arrange. -Remove PICC today. Portions of this documentation were copied and pasted from previous office visit notes in order to provide a cohesive continuity of the history. The note has been reviewed and edited and updated as necessary. During this patient visit I have spent approximately 20 minutes out of 25 in counseling regarding treatment options and medications and coordinating care. Kingsley Washburn DO Cc; Ashley Parikh MD documented in this encounter [facility] 01-01-2022 Miscellaneous Notes Left detailed on secure VM. Verbal ok for the same Gianna with [facility], nursing calling for a verbal order to Omit on site apt for 12/13/21 because they did not have insurance authorization to complete visit. Okay to leave a detailed message. Bessie Walters LPN documented in this encounter [facility] 12-25-2021 Miscellaneous Notes left message to notify Cindi that there is an approval by Kristina Nur Cnp. Charla Butler LPN Rebekah Nur APRN.BRAULIO Patient is on service for , she has pic line being manage by hemologist. Asking for an order to observe site when there to see. Ila Martinez LPN documented in this encounter [facility] 12-24-2021 Miscellaneous Notes Patient's request for medication is as follows Requested Prescriptions Signed Prescriptions Disp Refills diphenoxylate-atropine (LOMOTIL) 2.5-0.025 mg per tablet 90 tablet 0 Sig: Take 1 tablet by mouth four times daily as needed for diarrhea for up to 90 doses. Authorizing Provider: ALESSANDRA FELDMAN Order entered - please phone pharmacy and notify patient. Alessandra Feldman MD Patient requesting refills as follows: Requested Prescriptions Pending Prescriptions Disp Refills diphenoxylate-atropine (LOMOTIL) 2.5-0.025 mg per tablet 90 tablet 0 Sig: Take 1 tablet by mouth four times daily as needed for diarrhea for up to 90 doses. Please review and advise. PLEASE SEND TO [facility] IN [place] Tita Mott RN documented in this encounter [facility] 12-23-2021 Miscellaneous Notes Spoke with daughter shyanne and got patient added on for visit. Per last AVS, OV/CBC/CMP/Mg in about 2-3 weeks. Patient has nothing scheduled with Dr. Washburn. Please schedule. Thank you. Comfort Davila RN documented in this encounter [facility] 12-18-2021 Miscellaneous Notes phoned [facility] and spoke with Gianna to omit date of therapy on 12/13/21. Charla Butler LPN Ok to emit below date of therapy. Thank you Lizz Nur APRN.BRAULIO Gianna from [facility] asking to omit order for home health on 12/13/21. Visit was not done d/t no insurance authorization. Please call Gianna back with verbal to omit. Marybeth Gamble LPN documented in this encounter [facility] 12-13-2021 History of Presen t illness Narrative Oncologic problem(s): 1) Anal cancer. HPI: The patient is a 76-year-old female with a past medical history significant for smoking, CAD (CABG and stents x3--10/2021), hypertension, obstructive sleep apnea, COPD with chronic bronchitis, GERD, Buerger's disease, PVD (carotid stenosis), TIAs and hypothyroidism. Patient was admitted to [facility] on 10/08/2021 after presenting to the ED with complaints of chest pain. Hemoglobin was 8.4 g/dL and she endorsed rectal bleeding. Diagnosed with non-ST elevation HI. She was managed medically. Underwent colonoscopy to evaluate GI bleed. Hemorrhoids were found on perianal exam. A 5 mm polyp was found in the rectum. The polyp was sessile. The polyp was removed with a cold biopsy forceps. Resection and retrieval were complete. This was biopsied with a cold snare for histology. Two small patchy angiodysplastic lesions with bleeding were found at the splenic flexure. Coagulation for hemostasis using heater probe was successful. Estimated blood loss was minimal. Many large-mouthed diverticula were found in the recto-sigmoid colon and sigmoid colon. There was no evidence of diverticular bleeding. Moderate inflammation characterized by erosions, erythema and friability was found in the recto-sigmoid colon. A frond-like/villous non-obstructing medium-sized mass was found at the anus. The mass was non-circumferential. The mass measured three cm in length. In addition, its diameter measured four mm. Oozing was present. This was biopsied with a cold forceps for histology. Verification of patient identification for the specimen was done. Estimated blood loss was minimal. Pathology: A. Rectal polyp, biopsy: -Hyperplastic polyp. B. Anal mass, biopsy: -Squamous cell carcinoma COMMENT B. Sections show fragments of superficial squamous mucosa with squamous cell carcinoma in situ. Definitive invasion is not identified. CT chest was performed on presentation to the hospital and she was not found to have pulmonary embolism. There was a healing fracture of the left humeral neck. She underwent cardiac catheterization with stent placement to the proximal RCA and mid circumflex. At time of discharge, hemoglobin was 8.5 g/dL. --------- Presents for ongoing oncologic management. Current treatment: Mitomycin-C 10mg/m2 IV day 1 and day 29 5-FU (1000mg/m2/day) CIV over 96 hours day 1-4; Interim history: 5-FU infusional pump was hooked up on Thursday. She inadvertently turned it off so she missed a 24-hour infusion. Pump was removed today. She started valacyclovir yesterday. Pharmacy did not have it on hand on Thursday. Not complaining of much itch or irritation today. No diarrhea. No complaints otherwise. Continues on apixaban starter pack but now at 5 mg twice daily dosing for history of pulmonary embolism. No unusual bleeding or unexplained bruising. PMH, medications and allergies personally reviewed by me today. Any changes documented in appropriate section. PHYSICAL EXAM: VITALS: Blood pressure 124/59, pulse 72, temperature 36.9 C (98.4 F), temperature source Temporal, weight 65.1 kg (143 lb 8 oz). Well-appearing and in no acute distress. EYES: Sclerae are anicteric bilaterally. No findings of thrush or stomatitis. LYMPHATIC: There is no palpable cervical, supraclavicular, axillary or inguinal adenopathy. RESPIRATORY: Inspiratory breath sounds are of diminished intensity in all cortes. No rales, wheezes or rhonchi. CARDIOVASCULAR: Rhythm is regular. ABDOMEN: The abdomen is nondistended. No organomegaly. No tenderness. 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 On the right labia majora there are two clustered lesions that have opened and appear more dry. Less erythema of the labia majora and minora. Perianal minimal irritation with about 50% reduction in tumor size. Extremities: No swelling or edema. SKIN: No jaundice. NEUROLOGIC: loan interviewer II-XII are grossly intact. No focal motor weakness. 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 -Pathology demonstrated in situ squamous cell carcinoma but exam suggested more extensive disease. -Saw gynecology. Pap test negative. -PET scan and MRI were negative for metastatic disease. -Right labial majora lesions suspicious for herpetic outbreak. Responding to Chhaya acyclovir. -She has missed a lot of radiation and still has 15 fractions to go. -Second cycle of chemotherapy abbreviated. She only received approximately 48 hours of infusional 5-fluorouracil. No Mitomycin-C. -If does not have complete her optimal response to chemoradiation then she may require salvage therapy at some point. Plan: -Continue radiation therapy. -Continue Chhaya acyclovir 500 mg daily as a prophylactic dose for the next month. -Office visit with lab work in 2 to 3 weeks. -Office visit this coming Thursday already scheduled. (I26.99) Pulmonary embolism -No anginal symptoms. Plan: -Lisinopril to 10 mg once daily -Continue apixaban 5 mg twice daily -Continue Plavix 75 mg once daily because of coronary stents Portions of this documentation were copied and pasted from previous office visit notes in order to provide a cohesive continuity of the history. The note has been reviewed and edited and updated as necessary. During this patient visit I have spent approximately 20 minutes out of 25 in counseling regarding treatment options and medications and coordinating care. Kingsley Washburn DO Cc; Ashley Parikh MD documented in this encounter [facility] 12-10-2021 Nurse Note Intake information documented in the prior visit with Dr. Washburn today. Radiation Therapy - Nursing Note (OTV) PATIENT NAME: Charissa Wallace PATIENT December 10, 2021 [facility] FACILITY/LOCATION: [place] NURSING NOTE TYPE: RECTAL Subjective Data See pain assessment Additional Data Do you want to see a Ground Wirer? No Status: Post-menopausal. Stress Scale: On a scale of 0 to 10, what number best describes how much distress you have experienced in the past week?(0 being no distress and 10 being extreme distress) 5 Social work notified: Pt denied need to see hospice social worker at this time. Nursing Assessment Fatigue: moderate; causing difficulty performing some activities Appetite: fair Nutritional Intake: Regular oral intake. Weight Gain/Loss: No Ambulatory weight history: Last 6 Encounter Wt Readings: Date: Wt: 12/10/2021 65.3 kg (144 lb) 12/10/2021 65.3 kg (144 lb) 11/29/2021 65.1 kg (143 lb 8 oz) 11/26/2021 65.1 kg (143 lb 8 oz) 11/22/2021 65.1 kg (143 lb 8 oz) 11/18/2021 66 kg (145 lb 8 oz) Nausea:None Vomiting: None Bowel Function: normal bowel movements Erythema/Hyperpigmentation:sever e Desquamation:moist desquamation Rash:none Skin Care: Aquaphor Skin Sensation: moderate itching and moderate burning Focused Assessment RECTAL: Dysuria: none and Rectal bleeding none SIGNED by: Tita Mott RN documented in this encounter [facility] 12-10-2021 History of Presen t illness Narrative Radiation Oncology - On Treatment Review (OTR) Note PATIENT NAME: Charissa Wallace PATIENT DIAGNOSIS: Clinical stage IIA, cT2N0, squamous cell carcinoma of the anus. COURSE: definitive and concurrent chemotherapy (Mitomycin and 5FU) AREA TREATED: Pelvis/groin CURRENT DOSE: 1980 cGy in 11 fx PLANNED DOSE: 5040 cGy in 28 fx SUBJECTIVE: She is doing much better now. She denies any diarrhea now. She denies any anal pain. EXAM: KPS: 80 General Appearance: Alert and oriented. No acute distress. IMAGING/LAB RESULTS: CBC today reviewed. Treatment chart checked: Yes Patient treatment site reviewed and verified:Yes CBCTs reviewed and current:Yes Medications started: None ASSESSMENT/PLAN: Clinically stable. Toxicity within expected parameters. Continue radiation treatment as planned. Mariano Purdy MD documented in this encounter [facility] 12-09-2021 Miscellaneous Notes Please see additional encounter entered by Emma Ferreira PSR. Pt unable to come to appt today. Orders for hydration and anti-emetics in [place]. Kingsley Washburn DO Patient called in and transferred to [facility] PSS. This PSS spoke with patient and scheduled hydration and rescheduled OV w/ Dr. 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 When daughter, Shyanne, calls, please advise her to have patient here at 1:30 for labs and hydration and an office visit w/ Dr. Washburn. Once relayed, document and route to [facility] HEM/ONC PSR. Mayuri Fletcher Per Dr. Washburn, he would like to have patient come in for CBC/CMP/MG/IVF if there is room available today? Dr. Washburn said we can also offer to reschedule the OV to 3:[address] Washburn stated radiation can evaluate/treat the vaginal concern, see previous note. Comfort Davila RN Spoke to daughter. Daughter stated she did not realize patients appointment was early this morning. Daughter stated the appointment was cancelled due to her not being able to get patient to the appointment on time, not because patient is not doing well. Daughter did state that she was unaware that there was a possibility that patient might receive chemo today and she said she can barely get through a week of radiation and does not feel patient is ready for chemo again. Daughter stated patient is doing a little better but is nauseous all the time, tolerating Gatorade, 1/2 cup of pudding/jello. Called patient. Patient stated, I never realized the treatments would make me feel like this , I will feel a little better and then I get sick. Patient stated she has intermittent nausea, alleviated after vomiting. Patient stated she has heartburn occasionally, diarrhea resolved. Patient takes Zofran PRN and Protonix BID. Patient stated I am very weak. Patient stated she is drinking 3-4 Gatorades daily, 2-4 ensures, applesauce, yogurt, and pudding. Patient stated she has dizziness with standing but has balance issues due to her heart and denies having worsening dizziness than normal. Patients biggest complaint is on my vagina, the one side of my vagina is puffed and swollen . Patient stated she has a painful pimple that you can't see under the lip on the right side. Patient unable to visualize the area, was not able to say if there was pus/drainage. Patient has been using Vaseline and cleaning the area well. Patient stated she does not have a HEALTH SERVICES DIRECTOR doctor, would like to see one here if possible. This nurse recommended a warm compress to the area. Patient denies fever or chills. Daughter requesting to reschedule appointment with Dr. Washburn. Patient asking if she can see HEALTH SERVICES DIRECTOR tomorrow. Comfort Davila RN Hem/Onc appointments cancelled and Radt Techs notified re: cancellation. Mayuri Fletcher Pt. Daughter contacted office, her mother is unable to make any of the appts. Scheduled for today.Mother is barely able to function. Informed our intensive care unit registered nurse would reach out to her to discuss mothers condition. Lidia Montgomery LPN documented in this encounter [facility] 12-04-2021 Miscellaneous Notes Patient discharged from ED; diagnosis dehydration . Patient was given IVF, mylanta, protonix, and zofran. Comfort Davila RN FYI- Care Coordinators: Late entry: at approx. 1130 pt here for radiation treatment. I was told she walked in after daughter dropped her off. She was then put into wheelchair and wheeled to radiation. Therapist immediately felt pt needed assessed as she was pale, lethargic and c/o nausea. This nurse and Dr Purdy notified. BP:137/75, P:57, PO2 90-92% on RA Pt c/o nausea, mouth dry and tired. she states diarrhea is better(is taking lomotil), denies dyspnea at this time, states maybe a little chest pain . States she did take trazadone at bedtime and has had only one dose of her Ativan so far today, is able to tell me the exact times she takes meds. Is oriented to day and place. This nurse notes she is pale compared to Thursday and more lethargic. Dr Purdy saw pt and recommended to ER family OK to transport. Attempt to call daughter but unable to reach. A few minutes later, daughter called pt and I spoke with her. She was in parking lot if I could bring pt out she would take to [facility]. Pt transported via wheelchair to daughters car. This nurse assisted pt into car- she was more unsteady than on Thursday. Pt secured in car, SBAR and todays vital signs given to daughter to give to ER. documented in this encounter [facility] 12-03-2021 Miscellaneous Notes at approx 1130 I tried to call Charissa- no answer, went straight to machine I left a message for her to call I then called daughter Shyanne and spoke with her. she states she was at moms earlier and she refused to get out of bed. And that she was not going to radiation treatment. Shyanne was on her way there again to check on her. Offered her a 245 appointment this afternoon if she could get Charissa to come. Shyanne has therapist number to call if they can make it. Will follow up again tomorrow if no call back today. documented in this encounter [facility] documented as of this encounter (statuses as of 10/07/2022) [facility]10-24-2022 History of Past illness Narrative* Problem Noted Date Diagnosed Date Resolved Date Dehydration 12/02/2021 10/06/2022 Centrilobular emphysema 07/24/201707/2019 SUMMARY 12/12/2009 09/15/2019 Overview: 64 y/o with hx CABG 06/16/06 (CLARKE to LAD, SVG to RCA, SVG to OM), HTN, COPD, TIA, active smoker admitted as transfer from OSH following left heart cath done that suggested that her 2 vein grafts are down and the CLARKE is patent. She was getting pre-operative workup prior to surgery for a vocal cord polyp surgery. She is transferred for consideration of PCI vs redo CABG. Unfortunately, the [facility] disk does not open on our viewer. She is completely sx free. Sebaceous cyst 10/12/2009 06/05/2015 documented as of this encounter (statuses as of 10/16/2022) [facility] History of Past illness Narrative* Problem Noted Date Diagnosed Date Resolved Date Dehydration 12/02/2021 10/06/2022 Centrilobular emphysema 07/24/201707/2019 SUMMARY 12/12/2009 09/15/2019 Overview: 64 y/o with hx CABG 06/16/06 (CLARKE to LAD, SVG to RCA, SVG to OM), HTN, COPD, TIA, active smoker admitted as transfer from OSH following left heart cath done that suggested that her 2 vein grafts are down and the CLAKRE is patent. She was getting pre-operative workup prior to surgery for a vocal cord polyp surgery. She is transferred for consideration of PCI vs redo CABG. Unfortunately, the [facility] disk does not open on our viewer. She is completely sx free. Sebaceous cyst 10/12/2009 06/05/2015 documented as of this encounter (statuses as of 10/17/2022) [facility] History of Past illness Narrative* Problem Noted Date Diagnosed Date Resolved Date Dehydration 12/02/2021 10/06/2022 Centrilobular emphysema 07/24/20170 07/2019 SUMMARY 12/12/2009 09/15/2019 Overview: 64 y/o with hx CABG 06/16/06 (CLARKE to LAD, SVG to RCA, SVG to OM), HTN, COPD, TIA, active smoker admitted as transfer from OSH following left heart cath done that suggested that her 2 vein grafts are down and the CLARKE is patent. She was getting pre-operative workup prior to surgery for a vocal cord polyp surgery. She is transferred for consideration of PCI vs redo CABG. Unfortunately, the [facility] disk does not open on our viewer. She is completely sx free. Sebaceous cyst 10/12/2009 06/05/2015 documented as of this encounter (statuses as of 11/19/2022) [facility] History of Past illness Narrative* Problem Noted Date Diagnosed Date Resolved Date Dehydration 12/02/2021 10/06/2022 Centrilobular emphysema 07/24/20170 07/2019 SUMMARY 12/12/2009 09/15/2019 Overview: 64 y/o with hx CABG 06/16/06 (CLARKE to LAD, SVG to RCA, SVG to OM), HTN, COPD, TIA, active smoker admitted as transfer from OSH following left heart cath done that suggested that her 2 vein grafts are down and the CLARKE is patent. She was getting pre-operative workup prior to surgery for a vocal cord polyp surgery. She is transferred for consideration of PCI vs redo CABG. Unfortunately, the [facility] disk does not open on our viewer. She is completely sx free. Sebaceous cyst 10/12/2009 06/05/2015 documented as of this encounter (statuses as of 11/28/2022) [facility] History of Past illness Narrative* Problem Noted Date Diagnosed Date Resolved Date Dehydration 12/02/2021 10/06/2022 Centrilobular emphysema 07/24/2017 080 07/2019 SUMMARY 12/12/2009 09/15/2019 Overview: 64 y/o with hx CABG 06/16/06 (CLARKE to LAD, SVG to RCA, SVG to OM), HTN, COPD, TIA, active smoker admitted as transfer from OSH following left heart cath done that suggested that her 2 vein grafts are down and the CLARKE is patent. She was getting pre-operative workup prior to surgery for a vocal cord polyp surgery. She is transferred for consideration of PCI vs redo CABG. Unfortunately, the [facility] disk does not open on our viewer. She is completely sx free. Sebaceous cyst 10/12/2009 06/05/2015 documented as of this encounter (statuses as of 11/28/2022) [facility]10-24-2022 History of Past illness Narrative* Problem Noted Date Diagnosed Date Resolved Date Dehydration 12/02/2021 10/06/2022 Centrilobular emphysema 07/24/201707/2019 SUMMARY 12/12/2009 09/15/2019 Overview: 64 y/o with hx CABG 06/16/06 (CLARKE to LAD, SVG to RCA, SVG to OM), HTN, COPD, TIA, active smoker admitted as transfer from OSH following left heart cath done that suggested that her 2 vein grafts are down and the CLARKE is patent. She was getting pre-operative workup prior to surgery for a vocal cord polyp surgery. She is transferred for consideration of PCI vs redo CABG. Unfortunately, the [facility] disk does not open on our viewer. She is completely sx free. Sebaceous cyst 10/12/2009 06/05/2015 documented as of this encounter (statuses as of 12/01/2022) [facility]-24-2022 History of Past illness Narrative* Problem Noted Date Diagnosed Date Resolved Date Dehydration 12/02/2021 10/06/2022 Centrilobular emphysema 07/24/201707/2019 SUMMARY 12/12/2009 09/15/2019 Overview: 64 y/o with hx CABG 06/16/06 (CLARKE to LAD, SVG to RCA, SVG to OM), HTN, COPD, TIA, active smoker admitted as transfer from OSH following left heart cath done that suggested that her 2 vein grafts are down and the CLARKE is patent. She was getting pre-operative workup prior to surgery for a vocal cord polyp surgery. She is transferred for consideration of PCI vs redo CABG. Unfortunately, the [facility] disk does not open on our viewer. She is completely sx free. Sebaceous cyst 10/12/2009 06/05/2015 documented as of this encounter (statuses as of 12/02/2022) [facility]-24[facility]2022 History of Past illness Narrative* Problem Noted Date Diagnosed Date Resolved Date Dehydration 12/02/2021 10/06/2022 Centrilobular emphysema 07/24/2017 080 07/2019 SUMMARY 12/12/2009 09/15/2019 Overview: 64 y/o with hx CABG 06/16/06 (CLARKE to LAD, SVG to RCA, SVG to OM), HTN, COPD, TIA, active smoker admitted as transfer from OSH following left heart cath done that suggested that her 2 vein grafts are down and the CLARKE is patent. She was getting pre-operative workup prior to surgery for a vocal cord polyp surgery. She is transferred for consideration of PCI vs redo CABG. Unfortunately, the [facility] disk does not open on our viewer. She is completely sx free. Sebaceous cyst 10/12/2009 06/05/2015 documented as of this encounter (statuses as of 12/05/2022) [facility]2022 History of Past illness Narrative* Problem Noted Date Diagnosed Date Resolved Date Dehydration 12/02/2021 10/06/2022 Centrilobular emphysema 07/24/2017 080 07/2019 SUMMARY 12/12/2009 09/15/2019 Overview: 64 y/o with hx CABG 06/16/06 (CLARKE to LAD, SVG to RCA, SVG to OM), HTN, COPD, TIA, active smoker admitted as transfer from OSH following left heart cath done that suggested that her 2 vein grafts are down and the CLARKE is patent. She was getting pre-operative workup prior to surgery for a vocal cord polyp surgery. She is transferred for consideration of PCI vs redo CABG. Unfortunately, the [facility] disk does not open on our viewer. She is completely sx free. Sebaceous cyst 10/12/2009 06/05/2015 documented as of this encounter (statuses as of 12/13/2022) [facility]24[facility]2022 History of Past illness Narrative* Problem Noted Date Diagnosed Date Resolved Date Dehydration 12/02/2021 10/06/2022 Centrilobular emphysema 07/24/201707/2019 SUMMARY 12/12/2009 09/15/2019 Overview: 64 y/o with hx CABG 06/16/06 (CLARKE to LAD, SVG to RCA, SVG to OM), HTN, COPD, TIA, active smoker admitted as transfer from OSH following left heart cath done that suggested that her 2 vein grafts are down and the CLARKE is patent. She was getting pre-operative workup prior to surgery for a vocal cord polyp surgery. She is transferred for consideration of PCI vs redo CABG. Unfortunately, the [facility] disk does not open on our viewer. She is completely sx free. Sebaceous cyst 10/12/2009 06/05/2015 documented as of this encounter (statuses as of 12/13/2022) [facility]2022 History of Past illness Narrative* Problem Noted Date Diagnosed Date Resolved Date Dehydration 12/02/2021 10/06/2022 Centrilobular emphysema 07/24/201707/2019 SUMMARY 12/12/2009 09/15/2019 Overview: 64 y/o with hx CABG 06/16/06 (CLARKE to LAD, SVG to RCA, SVG to OM), HTN, COPD, TIA, active smoker admitted as transfer from OSH following left heart cath done that suggested that her 2 vein grafts are down and the CLARKE is patent. She was getting pre-operative workup prior to surgery for a vocal cord polyp surgery. She is transferred for consideration of PCI vs redo CABG. Unfortunately, the [facility] disk does not open on our viewer. She is completely sx free. Sebaceous cyst 10/12/2009 06/05/2015 documented as of this encounter (statuses as of 12/13/2022) [facility]24[facility]2022 History of Past illness Narrative* Problem Noted Date Diagnosed Date Resolved Date Dehydration 12/02/2021 10/06/2022 Centrilobular emphysema 07/24/201707/2019 SUMMARY 12/12/2009 09/15/2019 Overview: 64 y/o with hx CABG 06/16/06 (CLARKE to LAD, SVG to RCA, SVG to OM), HTN, COPD, TIA, active smoker admitted as transfer from OSH following left heart cath done that suggested that her 2 vein grafts are down and the CLARKE is patent. She was getting pre-operative workup prior to surgery for a vocal cord polyp surgery. She is transferred for consideration of PCI vs redo CABG. Unfortunately, the [facility] disk does not open on our viewer. She is completely sx free. Sebaceous cyst 10/12/2009 06/05/2015 documented as of this encounter (statuses as of 01/06/2023) [facility]24[facility]2022 History of Past illness Narrative* Problem Noted Date Diagnosed Date Resolved Date Dehydration 12/02/2021 10/06/2022 Centrilobular emphysema 07/24/201707/2019 SUMMARY 12/12/2009 09/15/2019 Overview: 64 y/o with hx CABG 06/16/06 (CLARKE to LAD, SVG to RCA, SVG to OM), HTN, COPD, TIA, active smoker admitted as transfer from OSH following left heart cath done that suggested that her 2 vein grafts are down and the CLARKE is patent. She was getting pre-operative workup prior to surgery for a vocal cord polyp surgery. She is transferred for consideration of PCI vs redo CABG. Unfortunately, the [facility] disk does not open on our viewer. She is completely sx free. Sebaceous cyst 10/12/2009 06/05/2015 documented as of this encounter (statuses as of 01/14/2023) [facility]24[facility]2022 History of Past illness Narrative* Problem Noted Date Diagnosed Date Resolved Date Dehydration 12/02/2021 10/06/2022 Centrilobular emphysema 07/24/201707/2019 SUMMARY 12/12/2009 09/15/2019 Overview: 64 y/o with hx CABG 06/16/06 (CLARKE to LAD, SVG to RCA, SVG to OM), HTN, COPD, TIA, active smoker admitted as transfer from OSH following left heart cath done that suggested that her 2 vein grafts are down and the CLARKE is patent. She was getting pre-operative workup prior to surgery for a vocal cord polyp surgery. She is transferred for consideration of PCI vs redo CABG. Unfortunately, the [facility] disk does not open on our viewer. She is completely sx free. Sebaceous cyst 10/12/2009 06/05/2015 documented as of this encounter (statuses as of 01/23/2023) [facility]10-24-2022 Nurse Note* Tere Banegas RN - 12/02/2021 11:51 AM EDT Pt here for labs and possible radiation treatment. She is c/o of feeling dehydrated, diarrhea, rectal pain and inability to sleep. She voices that she would like to quit treatment although then askedif we could cure her disease. Appetite- poor but drinks 3 ensures a day, no n/v Diarrhea- unable to give a number because ir is all the time She did start Lomotil on Thursday as prescribed Sleep- started trazadone last Thursday also, additionally takes Ativan 1mg po four times a day Rectal pain- rates as a 10 now. Reviewed skin care, using aquaphor and discussed starting sitiz baths. She was taking tylenol 1000 mg four times a day but has not had for a week because she ran out. Dizziness- BP sitting 132/60 P- 68 PO2 98% Standing 108/55 P;80 Dr Purdy notified and said to hold treatment today, given fluids as directed by Dr Feldman, use Advil perbottle instruction for pain and plan treatment for tomorrow. Pt is here alone right now, will give written instructions as above. See todays hydration encounter for fluids and more information [facility] History of Present illness Narrative* Alessandra Feldman MD - 11/29/2021 12:06 PM EDT Oncologic problem(s): 1) Anal cancer. Per Dr. Washburn's last visit on 11/08/2021 HPI: The patient is a 76-year-old female with a past medical history significant for smoking, CAD (CABG and stents x3--10/2021), hypertension, obstructive sleep apnea, COPD with chronic bronchitis, GERD, Buerger's disease, PVD (carotid stenosis), TIAs and hypothyroidism. Patient was admitted to [facility] on 10/08/2021 after presenting to the ED with complaints of chest pain. Hemoglobin was 8.4 g/dL and she endorsed rectal bleeding. Diagnosed with non-ST elevation HI. She was managed medically. Underwent colonoscopy to evaluate GI bleed. Hemorrhoids were found on perianal exam. A 5 mm polyp was found in the rectum. The polyp was sessile. The polyp was removed with a cold biopsy forceps. Resection and retrieval were complete. This was biopsied with a cold snare for histology. Two small patchy angiodysplastic lesions with bleeding were found at the splenic flexure. Coagulation for hemostasis using heater probe was successful. Estimated blood loss was minimal. Many large-mouthed diverticula were found in the recto-sigmoid colon and sigmoid colon. There was no evidence of diverticular bleeding. Moderate inflammation characterized by erosions, erythema and friability was found in the recto-sigmoid colon. A frond-like/villous non-obstructing medium-sized mass was found at the anus. The mass was non-circumferential. The mass measured three cm in length. In addition, its diameter measured four mm. Oozing was present. This was biopsied with a cold forceps for histology. Verification of patient identification for the specimen was done. Estimated blood loss was minimal. Pathology: A. Rectal polyp, biopsy: -Hyperplastic polyp. B. Anal mass, biopsy: -Squamous cell carcinoma COMMENT B. Sections show fragments of superficial squamous mucosa with squamous cell carcinoma in situ. Definitive invasion is not identified. CT chest was performed on presentation to the hospital and she was not found to have pulmonary embolism. There was a healing fracture of the left humeral neck. She underwent cardiac catheterization with stent placement to the proximal RCA and mid circumflex. At time of discharge, hemoglobin was 8.5 g/dL. Presents for ongoing oncologic management. Current treatment: Mitomycin-C 10mg/m2 IV day 1 and day 29 5-FU (1000mg/m2/day) CIV over 96 hours day 1-4; Interim history: Still has significant diarrhea after initial course of chemotherapy. Wakes her up at night. Bowels moving-loose up to 4 - 5 times a day. She used Imodium Stomatitis is improved. No rectal bleeding or rectal pain. She still has mild shortness of breath mildly from COPD and smoking. She is doing well on apixaban 5 mg twice daily and Plavix 75 mg daily. No further chest pain shortness of breath at rest with O2 saturation 98% on room air since discharge Cut down smoking up to half a pack a day. She denied nausea or vomiting. All medications & allergies updated and reviewed by me. ROS: Constitutional: Denies episodes of fever and night sweats. Neuro: Denies GAGNON. Chronic imbalance. Denies symptoms of neuropathy per se. HEENT: No recent change in voice, vision or hearing. Resp: Denies cough, wheeze and hemoptysis. Denies shortness of breath at rest. Dyspnea with walkingfew hundred feet. CVS: Denies exertional chest pain, PND, orthopnea and LE edema. LE claudication. GI: See above. : Denies dysuria or gross hematuria. Occasional incontinence. Endo: Denies hot flashes. Denies polyuria and polydipsia. Denies heat and cold intolerance. Musculoskeletal: Chronic pain. Derm: Denies rash. Denies jaundice and diffuse pruritis. Heme: Denies unusual bleeding and unexplained bruising. Psych: Chronic anxiety. PHYSICAL EXAM: Well-appearing and in no acute distress. BP 110/64 Pulse 70 Temp 99.8 Wt 143 lb 8 oz (65.1kg) SpO2 98% EYES: Sclerae are anicteric bilaterally. +pallor Mild blistering scab on lips; grade 1 stomatitis. no thrush LYMPHATIC: There is no palpable cervical, supraclavicular, axillary or inguinal adenopathy. RESPIRATORY: Inspiratory breath sounds are of diminished intensity in all cortes. No rales, wheezesor rhonchi. CARDIOVASCULAR: Rhythm is regular. ABDOMEN: The abdomen is nondistended. No organomegaly. No tenderness. Perianal: Deferred today. Extremities: No swelling or edema. SKIN: No jaundice. NEUROLOGIC: loan interviewer II-XII are grossly intact. No focal motor weakness. LABS: Component Latest Ref Rng & Units 11/22/2021 11/25/2021 11/28/2021 WBC 3.70 - 11.00 k/uL 3.05 (L) 2.96 (L) 2.03 (L) RBC 3.90 - 5.20 m/uL 3.44 (L) 3.38 (L) 3.58 (L) Hemoglobin 11.5 - 15.5 g/dL 8.7 (L) 8.6 (L) 9.2 (L) Hematocrit 36.0 - 46.0 % 27.9 (L) 28.0 (L) 30.1 (L) MCV 80.0 - 100.0 fL 81.1 82.8 84.1 MCH 26.0 - 34.0 pg 25.3 (L) 25.4 (L) 25.7 (L) MCHC 30.5 - 36.0 g/dL 31.2 30.7 30.6 RDW-CV 11.5 - 15.0 % 17.2 (H) 18.3 (H) 20.5 (H) Platelet Count 150 - 400 k/uL 135 (L) 65 (L) 109 (L) MPV 9.0 - 12.7 fL 9.5 9.1 9.9 Neut% % 59.7 52.4 27.5 Abs Neut (ANC) 1.45 - 7.50 k/uL 1.82 1.55 0.56 (L) Lymph% % 32.8 37.5 56.7 Abs Lymph 1.00 - 4.00 k/uL 1.00 1.11 1.15 Geneva% % 4.6 6.4 12.3 Abs [place] <0.87 k/uL 0.14 0.19 0.25 Eosin% % 2.3 3.4 2.5 Abs Eosin <0.46 k/uL 0.07 0.10 0.05 Baso% % 0.3 0.0 0.5 Abs Baso <0.11 k/uL <0.03 <0.03 <0.03 Immature Gran % % 0.3 0.3 0.5 IMMATURE GRANS (ABS) <0.10 k/uL <0.03 <0.03 <0.03 NRBC /100 WBC 0.0 0.0 0.0 Absolute nRBC <0.01 k/uL <0.01 <0.01 <0.01 DTYPE Auto Auto Auto ASSESSMENT/PLAN: (C21.0) Malignant neoplasm of anus (HCC) (primary encounter diagnosis) Assessment: -The patient is a 76-year-old female with a past medical history outlined above who was recently diagnosed with a 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 -Pathology demonstrated in situ squamous cell carcinoma but exam suggested more extensive disease. -Saw gynecology. Pap test negative. -Reviewed the results of the PET scan and MRI were negative for metastatic disease. Plan: -Continue radiation therapy next week pending on her neutropenia -Zofran 8 mg twice daily as needed for nausea with radiation therapy -Weekly labs. Repeat CBC, CMP and magnesium & Office visit in 1 week. -Modified dose of chemotherapy with reduction of Mitomycin-C 6 mg/m2 on day 29, and 5-FU 225mg/m2/day CIV over 96-hours on weeks 5 and 6. (I26.99) Pulmonary embolism -Oxygen saturation and vitals are stable -No anginal symptom Plan: -Decrease lisinopril 20 mg once daily -Continue apixaban 5 mg twice daily -Continue Plavix 75 mg once daily because of coronary stents (D50.0) Iron deficiency anemia -rectal bleeding resolved with radiation treatment Plan: -Monitor CBC weekly with possible blood transfusion (K12.31) Diarrhea mucositis secondary to chemotherapy and radiation therapy -mucositis resolved Plan: -Continue BMX suspension as needed and PPI -Probiotic 20 billion units daily & change to Lomotil times daily as needed for diarrhea -Modify chemotherapy regiment once diarrhea improved (F51.02) Insomnia -Multiple factors and adjustment disorder Plan: -Start trazodone 50mg nightly I spent 30 minutes in the visit, with more than 50% of the total ifal-lh-avoj time of the visit in counseling / coordination of care. Portions of this documentation were copied and pasted from previous office visit notes in order to provide a cohesive continuity of the history. The note has been reviewed and edited and updated as necessary Alessandra Feldman MD Cc; MD Mariano [facility] MD documented in this [facility]10-21-2022 Instructions* Patient Instructions* Alessandra Feldman MD - 11/29/2021 12:03 PM EDT Stop imodium & try Lomotil for diarrhea as needed Conitnue Plavix and Eliquis documented in this [facility]10-20-2022 History of Present illness Narrative* Tere Martin RN - 11/28/2021 7:48 AM EDT Patient is here for PICC flush/blood draw. Location: Right arm Flush with 5cc's Normal Saline. Blood Return: Good. 10 cc's blood aspirated and discarded. Blood drawn for CBC. Flushed with: 20 ml Normal Saline. Dressing dry and intact and will be changed by Home Health weekly. Site negative for redness, edemaor tenderness. Patient tolerated procedure well. documented in this [facility]10-18-2022 Miscellaneous Notes* Telephone Encounter - Leslie Greenberg Pss - 11/26/2021 2:24 PM EDT Daughter notified. She did not bright patient in today, but will inform sister that she needs labs tomorrow. * Telephone Encounter - Leslie Greenberg Pss - 11/26/2021 9:20 AM EDT Patient scheduled. Will let patient know of appt and results when here for XRT today. * Telephone Encounter - Kingsley Washburn DO - 11/25/2021 9:15 PM EDT Plts lower on today's CBC. Recheck CBC on Thursday. Kingsley Washburn DO documented in this encounterWilson Health10-18-2022 History of Present illness Narrative* Mariano Purdy MD, - 11/26/2021 11:52 AM EDT Radiation Oncology - On Treatment Review (OTR) Note PATIENT NAME: Charissa Wallace PATIENT DIAGNOSIS: Clinical stage IIA, cT2N0, squamous cell carcinoma of the anus. COURSE: definitive and concurrent chemotherapy (Mitomycin and 5FU) AREA TREATED: Pelvis/groin CURRENT DOSE: 1620 cGy in 9 fx PLANNED DOSE: 5040 cGy in 28 fx SUBJECTIVE: She has dysuria. EXAM: KPS: 80 General Appearance: Alert and oriented. No acute distress. IMAGING/LAB RESULTS: CBC yesterday reviewed. Platelet count 65K. Will check urine culture. Treatment chart checked: Yes Patient treatment site reviewed and verified:Yes CBCTs reviewed and current:Yes Medications started: None ASSESSMENT/PLAN: Clinically stable. Toxicity within expected parameters. Continue radiation treatment as planned. Mariano Purdy MD documented in this encounterWilson Health10-18-2022 Nurse Note* Tita Mott RN - 11/26/2021 11:49 AM EDT Radiation Therapy - Nursing Note (OTV) PATIENT NAME: Charissa Wallace PATIENT November 26, 2021 [facility] FACILITY/LOCATION: [place] NURSING NOTE TYPE: HEALTH SERVICES DIRECTOR - FEMALE PELVIS Subjective Data Pt reports vaginal itching and burning Additional Data Do you want to see a Ground Wirer? No Status: Post-menopausal. Stress Scale: On a scale of 0 to 10, what number best describes how much distress you have experienced in the past week?(0 being no distress and 10 being extreme distress) 7 Social work notified: Pt denied need to see hospice social worker at this time. Nursing Assessment Fatigue: moderate; causing difficulty performing some activities Appetite: poor Nutritional Intake: Regular oral intake. Weight Gain/Loss: No Ambulatory weight history: Last 6 Encounter Wt Readings: Date: Wt: 11/26/2021 65.1 kg (143 lb 8 oz) 11/22/2021 65.1 kg (143 lb 8 oz) 11/18/2021 66 kg (145 lb 8 oz) 11/11/2021 67.3 kg (148 lb 5.9 oz) 11/08/2021 66.7 kg (147 lb) 10/25/2021 67.1 kg (148 lb) Nausea:None Vomiting: None Bowel Function: constipation 1 - bowel movement every 2 - 3 days Erythema/Hyperpigmentation:none Desquamation:none Rash:none Skin Care: Aquaphor Skin Sensation: Within Normal Limits Focused Assessment HEALTH SERVICES DIRECTOR - FEMALE PELVIS: Rectal bleeding: Mild. Rectal pain: No. Urinary frequency (D/N): same/4-5. Vaginal bleeding: No. SIGNED by: Tita Mott RN documented in this encounterWilson Health10-17-2022 Miscellaneous Notes* Telephone Encounter - Rayna Bailey LPN - 11/25/2021 9:19 AM EDT Patient is aware of all information regarding potassium and probiotic. Rayna Bailey LPN * Telephone Encounter - Kingsley Washburn DO - 11/22/2021 9:55 PM EDT Her potassium is significantly low. Please advise her to start potassium supplement twice daily. Kingsley Washburn DO * Telephone Encounter - Alessandra Feldman MD - 11/22/2021 3:04 PM EDT She did get [id number] probiotics to be adequate Alessandra Feldman MD * Telephone Encounter - Lidia Montgomery LPN - 11/22/2021 1:42 PM EDT Insurance will not cover probiotic 20,000 billion cell, denied on [place] also. Instructed pharmacist to give pt OTC equivalent. Pharmacist voiced understanding. Lidia Montgomery LPN documented in this encounterWilson Health10-14-2022 History of Present illness Narrative* Alessandra Feldman MD - 11/22/2021 12:49 PM EDT Oncologic problem(s): 1) Anal cancer. Per Dr. Washburn's last visit on 11/08/2021 HPI: The patient is a 76-year-old female with a past medical history significant for smoking, CAD (CABG and stents x3--10/2021), hypertension, obstructive sleep apnea, COPD with chronic bronchitis, GERD, Buerger's disease, PVD (carotid stenosis), TIAs and hypothyroidism. Patient was admitted to [facility] on 10/08/2021 after presenting to the ED with complaints of chest pain. Hemoglobin was 8.4 g/dL and she endorsed rectal bleeding. Diagnosed with non-ST elevation HI. She was managed medically. Underwent colonoscopy to evaluate GI bleed. Hemorrhoids were found on perianal exam. A 5 mm polyp was found in the rectum. The polyp was sessile. The polyp was removed with a cold biopsy forceps. Resection and retrieval were complete. This was biopsied with a cold snare for histology. Two small patchy angiodysplastic lesions with bleeding were found at the splenic flexure. Coagulation for hemostasis using heater probe was successful. Estimated blood loss was minimal. Many large-mouthed diverticula were found in the recto-sigmoid colon and sigmoid colon. There was no evidence of diverticular bleeding. Moderate inflammation characterized by erosions, erythema and friability was found in the recto-sigmoid colon. A frond-like/villous non-obstructing medium-sized mass was found at the anus. The mass was non-circumferential. The mass measured three cm in length. In addition, its diameter measured four mm. Oozing was present. This was biopsied with a cold forceps for histology. Verification of patient identification for the specimen was done. Estimated blood loss was minimal. Pathology: A. Rectal polyp, biopsy: -Hyperplastic polyp. B. Anal mass, biopsy: -Squamous cell carcinoma COMMENT B. Sections show fragments of superficial squamous mucosa with squamous cell carcinoma in situ. Definitive invasion is not identified. CT chest was performed on presentation to the hospital and she was not found to have pulmonary embolism. There was a healing fracture of the left humeral neck. She underwent cardiac catheterization with stent placement to the proximal RCA and mid circumflex. At time of discharge, hemoglobin was 8.5 g/dL. Presents for ongoing oncologic management. Current treatment: Mitomycin-C 10mg/m2 IV day 1 and day 29 5-FU (1000mg/m2/day) CIV over 96 hours day 1-4; Interim history: Patient complain of severe nausea and diarrhea after initial course of chemotherapy Bowels moving-loose up to 4 times a day. She used Imodium once this morning. She presented last Thursday with shortness of breath and palpitation. She was diagnosed with an incidental pulmonary embolism and was started on apixaban 10mg twice daily. No further chest pain shortness of breath since discharge Cut down smoking up to half a pack a day No home O2. Went to the emergency room yesterday because of blood in her stool when she is wiping. She also hassevere mucositis and skipped radiation since Thursday. She is on BMX suspension & PPI blister and ulcer on her tongues and lips starting this week. She did not have complaint of lightheadedness, dizziness or shortness of breath. Her hemoglobin is stable at 8.7 g/dL and chemistry profiles is normal. She was instructed to apixaban 5 mg twice daily and Anusol cream daily after radiation therapy to the rectum. All medications & allergies updated and reviewed by me. ROS: Constitutional: Denies episodes of fever and night sweats. Neuro: Denies GAGNON. Chronic imbalance. Denies symptoms of neuropathy per se. HEENT: No recent change in voice, vision or hearing. Resp: Denies cough, wheeze and hemoptysis. Denies shortness of breath at rest. Dyspnea with walkingfew hundred feet. CVS: Denies exertional chest pain, PND, orthopnea and LE edema. LE claudication. GI: See above. : Denies dysuria or gross hematuria. Occasional incontinence. Endo: Denies hot flashes. Denies polyuria and polydipsia. Denies heat and cold intolerance. Musculoskeletal: Chronic pain. Derm: Denies rash. Denies jaundice and diffuse pruritis. Heme: Denies unusual bleeding and unexplained bruising. Psych: Chronic anxiety. PHYSICAL EXAM: Well-appearing and in no acute distress. BP 119/59 Pulse 77 Temp 99.2 Wt 143 lb 8 oz (65.1kg) SpO2 100% EYES: Sclerae are anicteric bilaterally. +pallor Mild blistering scab on lips; grade 1 stomatitis. no thrush LYMPHATIC: There is no palpable cervical, supraclavicular, axillary or inguinal adenopathy. RESPIRATORY: Inspiratory breath sounds are of diminished intensity in all cortes. No rales, wheezesor rhonchi. CARDIOVASCULAR: Rhythm is regular. ABDOMEN: The abdomen is nondistended. No organomegaly. No tenderness. Perianal: Deferred today. Extremities: No swelling or edema. SKIN: No jaundice. NEUROLOGIC: loan interviewer II-XII are grossly intact. No focal motor weakness. LABS: Component Latest Ref Rng & Units 11/22/2021 WBC 3.70 - 11.00 k/uL 3.05 (L) RBC 3.90 - 5.20 m/uL 3.44 (L) Hemoglobin 11.5 - 15.5 g/dL 8.7 (L) Hematocrit 36.0 - 46.0 % 27.9 (L) MCV 80.0 - 100.0 fL 81.1 MCH 26.0 - 34.0 pg 25.3 (L) MCHC 30.5 - 36.0 g/dL 31.2 RDW-CV 11.5 - 15.0 % 17.2 (H) Platelet Count 150 - 400 k/uL 135 (L) MPV 9.0 - 12.7 fL 9.5 Neut% % 59.7 Abs Neut (ANC) 1.45 - 7.50 k/uL 1.82 Lymph% % 32.8 Abs Lymph 1.00 - 4.00 k/uL 1.00 Geneva% % 4.6 Abs Geneva <0.87 k/uL 0.14 Eosin% % 2.3 Abs Eosin <0.46 k/uL 0.07 Baso% % 0.3 Abs Baso <0.11 k/uL <0.03 Immature Gran % % 0.3 IMMATURE GRANS (ABS) <0.10 k/uL <0.03 NRBC /100 WBC 0.0 Absolute nRBC <0.01 k/uL <0.01 DTYPE Auto Component Latest Ref Rng & Units 11/22/2021 Protein, Total 6.3 - 8.0 g/dL 6.0 (L) Albumin 3.9 - 4.9 g/dL 3.9 Calcium 8.5 - 10.2 mg/dL 8.1 (L) Bilirubin, Total 0.2 - 1.3 mg/dL 0.6 Alkaline Phosphatase 34 - 123 U/L 120 AST 13 - 35 U/L 14 ALT 7 - 38 U/L 8 Glucose 74 - 99 mg/dL 112 (H) BUN 7 - 21 mg/dL 16 Creatinine 0.58 - 0.96 mg/dL 0.86 Sodium 136 - 144 mmol/L 137 Potassium 3.7 - 5.1 mmol/L 3.2 (L) Chloride 97 - 105 mmol/L 104 CO2 22 - 30 mmol/L 25 Anion Gap 9 - 18 mmol/L 8 (L) eGFR >=60 mL/min/1.73m 71 ASSESSMENT/PLAN: (C21.0) Malignant neoplasm of anus (HCC) (primary encounter diagnosis) Assessment: -The patient is a 76-year-old female with a past medical history outlined above who was recently diagnosed with a 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 -Pathology demonstrated in situ squamous cell carcinoma but exam suggested more extensive disease. -Saw gynecology. Pap test negative. -Reviewed the results of the PET scan and MRI were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 this patient, better than what could be achieved using conventional or 3D planning. The specific doserequirements for the PTV, organs at risk and dose-volume histograms are contained in this treatmentplan and/or elsewhere in the medical record. A completed summary of this plan dated 10/31/21 incorporated herein by reference includes dose, beamarrangements, energy, blocking, isodose distribution, and/or ports and DVH. Electronically Signed Mariano Purdy M.D. 1:19 AM documented in this encounterWilson Health09-20-2022 History of Present illness Narrative* Mariano Purdy MD, MD - 10/29/2021 12:00 AM EDT CHARISSA WALLACE [id number] 10/29/2021 [facility] Department of Radiation Oncology [facility] RADIATION ONCOLOGY SIMULATION NOTE DATE OF SIMULATION: 10/29/2021 MACHINE: Siemens Definition CT Simulator Diagnosis: Clinical stage IIA, cT2N0, squamous cell carcinoma of the anus. AREA:Pelvis/groin. PATIENT POSITION: Supine. CONTRAST: None PROTOCOL: None BLOCKING: Custom blocking to be determined at treatment planning. FIXATION DEVICE: In order to achieve accurate and reproducible treatments, the patient is to be immobilized with custom vac bag. PROCEDURE: A time-out was conducted and recorded by the therapist. Patient was simulated on the CT scanner for external beam radiation therapy. Treatment site was marked by the simulation therapist. ASSESSMENT/PLAN: Patient tolerated simulation procedure well. Treatments will be initiated after treatment planning. The patient is scheduled for a verification simulation on the treatment machine toensure proper set-up and field arrangement is correct prior to the first treatment of primary and boost cortes if applicable. Electronically Signed Mariano Purdy M.D./caitlyn 1:20 AM documented in this encounterWilson Health09-19-2022 Miscellaneous Notes* Telephone Encounter - Eufemia Fulton Ma - 10/28/2021 2:56 PM EDT Abbi notified. * Telephone Encounter - Lizz Nur APRN.CNP - 10/28/2021 2:50 PM EDT Agree with order. Lizz Nur APRN.CNP * Telephone Encounter - Jaquelin Villegas LPN - 10/28/2021 1:01 PM EDT Abbi from [facility] Home Health calling with OT plan of care 1 visit weekly for 4 weeks working with leftarm. documented in this encounterWilson Health09-17-2022 History of Present illness Narrative* Seth Howard RN - 10/26/2021 10:20 AM EDT Radiology Service Progress Note DATE OF SERVICE: October 26, 2021 TIME: 9:57 AM PATIENT WEIGHT: 148LBS PATIENT IDENTITY VERIFICATION COMPLETED USING TWO (2) STANDARD IDENTIFIERS: Name and Date of confirmed by patient verbally. FALL SCREENING: Has the patient had 2 falls in the last year or 1 fall with injury or currently using an Ambulatory Assistive Device (Walker, Cane, Wheelchair, Crutches, etc.)? Yes, Patient High Riskfor Falls What interventions were put in place to prevent falls during this visit? Non- Skid Socks Used PATIENT GENDER DATA: Female. status: : No status: NO. ALLERGIES: Reviewed and unchanged CONTRAST ALLERGY: No EXAM: MRI - CONTRAST TYPE: GROUP II IV SITE: Ambulatory: A peripheral IV was started in the Right antecubital site with a Angio cath: 22 gauge. and A Saline lock was inserted per protocol IV SITE APPEARANCE: Clean,Dry and Intact SIGNATURE: Seth Howard RN PATIENT NAME: Charissa Wallace DATE: October 26, 2021 TIME: 9:57 AM * RT Diandra(R) - 10/26/2021 10:20 AM EDT Radiology Service Progress Note PATIENT NAME: Charissa Wallace DATE OF SERVICE: October 26, 2021 TIME: 10:26 AM PATIENT IDENTITY VERIFICATION COMPLETED USING TWO (2) IDENTIFIERS: Name and Date of confirmedby patient verbally. FALL SCREENING: Has the patient had 2 falls in the last year or 1 fall with injury or currently using an Ambulatory Assistive Device (Walker, Cane, Wheelchair, Crutches, etc.)? Yes, Patient High Riskfor Falls What interventions were put in place to prevent falls during this visit? [place] Risk Wristband Applied, Instructed Patient to Call for Help if Needed, Offered Assistance with Transfers/Clothing, Instructed Patient to Remain Seated (Not on Exam Table) Until Exam, and Increased Observations by Caregivers PATIENT GENDER DATA: Female. status: : No status: NO. PATIENT RELEVANT IMPLANT DATA REVIEWED: Yes RADIOLOGY DEPARTMENT: MR; Exam(s) Completed: Body: Rectal PERIPHERAL IV DATA: Site assessment: Clean,Dry and Intact, Site disposition Discontinued SIGNED BY: RT Diandra(R) October 26, 2021 10:26 AM documented in this encounterWilson Health09-16-2022 History of Present illness Narrative* Fe Patel RN - 10/25/2021 3:11 PM EDT [facility] Enrollment Provider Action/FYI: LVM Mychart message sent Patient referred by: [facility] Ellie Contact made with patient: No - Left Message: Hi my name is Fe Patel RN and I am calling from the [facility] on behalf of your PCP, Ashley Parikh MD. We are excited to share with you a newprogram to help you manage your health. . You will receive another phone call from me within the next two business days. I hope you can take the time to speak with me. (Keep encounter open and attempt 2nd outreach in two business days from today) END OUTREACH documented in this encounterWilson Health09-16-2022 History of Present illness Narrative* Elyssa Estevez APRN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 - 10/25/2021 1:27 PM EDT Environmental Health Physician offered: Patient declinesCornelius Carrington is a 76 year old who presents for an annual gynecologic exam with complaints, recent diagnosis of anal cancer . Referred by oncology for Pap test. Postmenopausal: Yes since age 45-52 HRT use: No. Last Pap: age 67 normal per pt HPV: negative History of abnormal pap: No Last mammogram: unsure when normal History of abnormal mammogram: No Sexually active: No OB History T0 L2 SAB0 IAB0 Ectopic0 Multiple0 Live Births0 Key Account Executive History LMP: Postmenopausal Age at Menarche: Age at First : Age at Menopause: Key Account Executive History Comments: Sexual Activity: Yes; Male Contraception: No contraception data on record PAST MEDICAL HISTORY Diagnosis Date CAD (coronary artery disease) 7 stents, [facility]. 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 did not show signficant obstruction Obstructive sleep apnea 12/21/14 Positive PPD Syncope 10/27/2014 Vertigo Vocal cord polyp PAST SURGICAL HISTORY Procedure Laterality Date APPENDECTOMY CHOLECYSTECTOMY Cholecystectomy CORONARY ARTERY BYP W/VEIN & ARTERY GRAFT 3 VEIN CABG, three grafts CT BRAIN WO CONTRAST 10/24/2014 mild to moderate diffuse atrophy EKG 12 LEAD 10/25/2014 sinus bradycardia LIG/TRNSXJ FLP TUBE ABDL/VAG APPR UNI/BI Tubal ligation POLYSOMNOGRAM(DIAG) 92000 12/07/2014 THYROIDECTOMY TOTAL/COMPLETE total TONSILLECTOMY PRIMARY/SECONDARY <AGE 12 Tonsillectomy TRANSCATH STENT ADDN VESSEL,PERCUT Transcath stent addn vessel percut, x3 TRANSCATH STENT INIT VESSEL,PERCUT Transcath stent init vessel percut FAMILY HISTORY Problem Relation Age of Onset Cancer Mother Lung Coronary Artery Disease Mother Diabetes Mother Ischemic Heart Disease Mother CHF. Stroke Mother other (TB) Mother Alcohol/Drug Father Cancer Father Diabetes Father Ischemic Heart Disease Father Massive heart attack Emphysema Sister Cancer Sister Breast in 2 sisters. Coronary Artery Disease Sister Diabetes Sister Ischemic Heart Disease Sister No Known Problems Brother SOCIAL HISTORY Social History Tobacco Use Smoking status: Every Day Packs/day: 4.00 Years: 58.00 Pack years: 232.00 Types: Cigarettes Start date: 1957 Smokeless tobacco: Never Tobacco comments: Reduced to 2 PPD from 4 PPD. I can't tell you I'll ever quit. Parents smoked in childhood home, and has lived with smokers as adult. Vaping Use Vaping Use: Never used Substance Use Topics Alcohol use: No Drug use: No REVIEW OF SYSTEMS Abdomen: No abdominal pain, nausea, vomiting, diarrhea, or constipation. No bloating, early satiety, indigestion, or increased flatulence. Bladder: No dysuria, gross hematuria, urinary frequency, urinary urgency, or incontinence Breast: No breast lumps, nipple d/c, overlying skin changes, redness or skin retraction Allergies and current medication updated:Yes EXAM: BP 112/58 Wt 148 lb 12.8 oz (67.5kg) GENERAL: pleasant, female in no apparent distress HEENT: Normocephalic, atraumatic, mucus membranes moist, and no lesions NECK: Supple, full range of motion, and no adenopathy DERMATOLOGY: Normal, without lesions, non-icteric, and non-hirsute BREAST: soft, non-tender, symmetric, no dominant mass, normal nipple-areolar complex, no lymphadenopathy, and no nipple discharge CHEST: Normal inspiratory effort ABDOMEN: soft, non-tender, and no masses PELVIC: external genitalia normal, normal Bartholin's glands, urethra, Ducor's glands, no vulvar lesions, no cervical lesions, physiologic discharge present, normal appearing perineal body and perianal region BIMANUAL: uterus normal size, shape and consistency, no adnexal masses, and non-tender RECTOVAGINAL: deferred. NEURO: alert and oriented x3,exam grossly non-focal EXTREMITIES: normal ASSESSMENT/PLAN: 1) Health maintenance: Pap done with reflex HPV - pt has anal cancer Mammogram ordered Nutrition, exercise and routine health maintenance exams reviewed. Calcium/Vitamin D supplementation information provided. Smoking cessation: Benefits of smoking cessation reviewed. Patient encouraged to avoid smoking. Colon cancer screening: up to date with screening 2) Follow up one year or sooner as needed Elyssa Estevez APRN.BRAULIO documented in this encounterWilson Health09-16-2022 History of Present illness Narrative* Mariano Purdy MD, MD - 10/25/2021 10:05 AM EDT Radiation Oncology - New Patient/Consult Note PATIENT NAME: Charissa Wallace PATIENT REQUESTING PROVIDER: Kingsley Washburn DIAGNOSIS: Clinical stage IIA, cT2N0, squamous cell carcinoma of the anus. HPI: 76 year old female who presents with above diagnosis, for an opinion regarding the role of radiation therapy in the management of the patient's disease. Final recommendations will be communicated back to the requesting physician by way of the shared medical record, or letter to requesting physician via US mail. 76 year old woman who had intermittent rectal bleeding for the last 3 years. When she had chest pain and was admitted to the [facility] last month, she was found to have anemia with Hgb of 8.4 g/dL. She underwent colonoscopy on 10/09/21 and was found to have medium sized mass at the anus measuring 3 cm in length and a rectal polyp that was removed. Biopsy of the anal mass showed squamous cell carcinoma. The rectal polyp was hyperplastic polyp. She underwent blood transfusion. Regarding her chest pain, she was found to have STEMI and underwent PCI with stent placement in the proximal RCA and mid circumflex. She is on ASA and plavix. She continues to have rectal bleeding but only with bowel movements. She has anal pain only with bowel movement. PET/CT scan on 10/23/21 showed focal activity the anus near the anal canal opening with max SUV of 5.9, compatible with malignancy. No FDG avid inguinal, perirectal or other intrapelvic lymphadenopathy. MRI pelvis is scheduled tomorrow. ALLERGIES Allergen Reactions Bupropion Other: See Comments high doses can not tolerate Dilaudid [Other] Mental Status Change Morphine Hcl Mental Status Change Nubain [Nalbuphine * Orphenadrine Penicillins Rash Ultram [Tramadol Hc* Rash PAST MEDICAL HISTORY Diagnosis Date CAD (coronary artery disease) 7 stents, [facility]. 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 PAST SURGICAL HISTORY Procedure Laterality Date APPENDECTOMY CHOLECYSTECTOMY Cholecystectomy CORONARY ARTERY BYP W/VEIN & ARTERY GRAFT 3 VEIN CABG, three grafts CT BRAIN WO CONTRAST 10/24/2014 mild to moderate diffuse atrophy EKG 12 LEAD 10/25/2014 sinus bradycardia LIG/TRNSXJ FLP TUBE ABDL/VAG APPR UNI/BI Tubal ligation POLYSOMNOGRAM(DIAG) 52340 12/07/2014 THYROIDECTOMY TOTAL/COMPLETE total TONSILLECTOMY PRIMARY/SECONDARY <AGE 14 Tonsillectomy TRANSCATH STENT ADDN VESSEL,PERCUT Transcath stent addn vessel percut, x3 TRANSCATH STENT INIT VESSEL,PERCUT Transcath stent init vessel percut FAMILY HISTORY Problem Relation Age of Onset Cancer Mother Lung Coronary Artery Disease Mother Diabetes Mother Ischemic Heart Disease Mother CHF. Stroke Mother other (TB) Mother Alcohol/Drug Father Cancer Father Diabetes Father Ischemic Heart Disease Father Massive heart attack Emphysema Sister Cancer Sister Breast in 2 sisters. Coronary Artery Disease Sister Diabetes Sister Ischemic Heart Disease Sister No Known Problems Brother Social History Tobacco Use Smoking status: Every Day Packs/day: 4.00 Years: 58.00 Pack years: 232.00 Types: Cigarettes Start date: 1957 Smokeless tobacco: Never Tobacco comments: Reduced to 2 PPD from 4 PPD. I can't tell you I'll ever quit. Parents smoked in childhood home, and has lived with smokers as adult. Vaping Use Vaping Use: Never used Substance Use Topics Alcohol use: No Drug use: No COMPLETE REVIEW OF SYSTEMS: GENERAL: feeling well without fatigue, no recent change in weight HEENT: denies GAGNON, change in hearing or vision, no other ENT complaints NECK: denies swelling or pain in neck RESPIRATORY: chronic shortness of breath with exertion attributed to COPD. CARDIOVASCULAR: no chest pain, no palpitations Recent STEMI s/p stent placement. GI: see HPI : chronic incontinence. MUSCULOSKELETAL: h/o recent fall and left humerus fracture. SKIN: no rash HEMATOLOGY/LYMPHOLOGY: She is on Plavix and ASA ENDOCRINE: denies cold/heat intolerance, denies polyuria or polydipsia, no goiter NEURO: no numbness or paresthesias and no weakness of the extremities PHYSICAL EXAM: VS: BP 142/63 Pulse 66 Temp 36.6 C (97.9 F) (Temporal) Resp 20 Wt 67.1 kg (148 lb) SpO2 98% BMI 27.96 kg/m KPS: 80 General Appearance: Alert and oriented. No acute distress. HEENT: NCAT. Sclera anicteric. EOMI. Neck: Normal ROM. Chest: No respiratory distress. Musculoskeletal: No edema. Rectum: Protruding anal mass measuring about 2-3 cm. Neuro: Speech fluent. Gait normal. No focal deficits. Skin: No rashes noted Lymphatics: No palpable lymphadenopathy in the inguinal region. Hematologic: No signs of active bleeding. RADIOLOGY/LABORATORY DATA: see HPI ASSESSMENT AND PLAN: 76 year old woman with clinical stage IIA, cT2N0, squamous cell carcinoma of the anus. She is scheduled to have MRI rectum tomorrow and PAP smear today to finish staging. I recommend definitve chemoradiation treatment. I explained the rationale, benefits, alternative management options and potential complications of radiation treatment to the patient and she understands and agrees to proceed. It was explained and understood that other personnel such as radiation therapists, urban planning teacher, and physicists will partici khan in planning and delivery of radiation treatment. Permanent tattoo atkinson will be placed to aid with positioning for daily treatment and the patient consented. Patient will have a simulation procedure next Thursday. Thank you very much for allowing us to participate in her care. Signed by: Mariano Purdy MD cc: Ashley Parikh [address] [place] [address] Kingsley Washburn Nori Becker [facility] [id number] [address] documented in this encounterWilson Health09-16-2022 Nurse Note* Tita Mott RN - 10/25/2021 9:46 AM EDT Radiation Therapy - Nursing Note (Consult) PATIENT NAME: Charissa Wallace PATIENT October 25, 2021 [facility] FACILITY/LOCATION: [place] Chief Complaint: consult Reason for visit: Consult. Referring physician: Internal provider Dr Washburn Subjective Data: pt walks with a cane Additional Data Do you want to see a Ground Wirer? No Are you interested in information about fertility? No Status: Post-menopausal Stress Scale: On a scale of 0 to 10, what number best describes how much distress you have experienced in the past week?(0 being no distress and 10 being extreme distress) 9 Social work notified: Pt denied need to see hospice social worker at this time. SIGNED by: Tita Mott RN documented in this encounterWilson Health09-15-2022 Miscellaneous Notes* Telephone Encounter - Leslie Greenberg Pss - 10/24/2021 2:41 PM EDT Thank you! * Telephone Encounter - Tita Mott RN - 10/24/2021 2:[address] Washburn referred. Thanks! * Telephone Encounter - Leslie Greenberg Pss - 10/24/2021 1:37 PM EDT Scheduled. Please advise who is referring. * Telephone Encounter - Tita Mott RN - 10/24/2021 10:22 AM EDT Pt did not come to consult with Dr Purdy this am. I spoke with pt's daughter and they got the appointment mixed up. Please reschedule consult with Dr Purdy for tomorrow 10/25/21 at 9:30am. Pt's daughter is aware of the appointment. documented in this encounterWilson Health09-15-2022 Miscellaneous Notes* Telephone Encounter - Rayna Bailey LPN - 10/24/2021 1:18 PM EDT Patient notified. Rayna Bailey LPN * Telephone Encounter - Kingsley Washburn DO - 10/24/2021 11:55 AM EDT Good news. Can let her know the PET scan showed the cancer only at the known site in the anus. No evidence of cancer elsewhere. Kingsley Washburn DO documented in this encounterWilson Health09-14-2022 NoteHNO ID: [id number] Author: RT Michell(R) Service: ? Author Type: Technologist Type: Progress Notes Filed: 10/23/2021 1:28 PM Note Text: RADIOLOGY SERVICE PROGRESS NOTE SERVICE DATE: 10/23/2021 SERVICE TIME: 1:27 PM PATIENT IDENTITY VERIFICATION COMPLETED USING TWO (2) STANDARD IDENTIFIERS: Name and Date of confirmed by patient verbally FALL SCREENING: Has the patient had 2 falls in the last year or 1 fall with injury or currently using an Ambulatory Assistive Device (Walker, Cane, Wheelchair, Crutches, etc.)? Yes, Patient High Risk for Falls What interventions were put in place to prevent falls during this visit? Instructed Patient to Call for Help if Needed, Offered Assistance with Transfers/Clothing, Increased Observations by Caregivers, and Escorted to/from Restroom PATIENT GENDER DATA: .female : No ALLERGIES: Reviewed and unchanged MEDICATIONS REVIEWED: No PATIENT RELEVANT IMPLANT DATA REVIEWED: Not Applicable CREATININE: Creatinine Date Value Ref Range Status 10/17/2021 0.75 0.58 - 0.96 mg/dL Final 05/23/2020 0.94 0.58 - 0.96 mg/dL Final 08/26/2019 0.77 0.58 - 0.96 mg/dL Final Estimated Glomerular Filtration Rate Date Value Ref Range Status 10/17/2021 84 >=60 mL/min/1.73m? Final Comment: Estimated Glomerular Filtration Rate (eGFR) is calculated using the 2020 CKD-EPI creatinine equation. This equation utilizes serum creatinine, sex, and age as parameters. The creatinine assay has traceable calibration to isotope dilution-mass spectrometry. Refer to KDIGO guidelines for clinical interpretation. In patients with unstable renal function, e.g. those with acute kidney injury, the eGFR may not accurately reflect actual GFR. eGFR- Date Value Ref Range Status 05/23/2020 >60 Final P.O.C.T. RESULTS: POC done: Yes, See Lab Tab October 23, [address] PERFORMED: No IV SITE: Ambulatory: A peripheral IV was started in the Right forearm with a Angio cath: 24 gauge. POST EXAM PIV STATUS: Discontinued PROCEDURE TYPE: NM INJECT: PET/CT BODY SCAN. 12.8 mCi F18 FDG. No other medications given.. ADMINISTRATION TIME: 1317 PATIENT DISCHARGED TO: Ambulatory patient, left AR department area. A Diagnostic radioactive procedure has taken place, with no further precautions necessary other than routine body substance precautions. More information regarding radiation safety can be found using this link: [email or web address] SIGNATURE: RT Michell(R) PATIENT NAME: Charissa Wallace DATE: October 23, 2021 TIME: 1:27 PM PAGER/CONTACT #:[facility]09-14-2022 History of Present illness Narrative* RT Michell(R) - 10/23/2021 1:27 PM EDT RADIOLOGY SERVICE PROGRESS NOTE SERVICE DATE: 10/23/2021 SERVICE TIME: 1:27 PM PATIENT IDENTITY VERIFICATION COMPLETED USING TWO (2) STANDARD IDENTIFIERS: Name and Date of confirmed by patient verbally FALL SCREENING: Has the patient had 2 falls in the last year or 1 fall with injury or currently using an Ambulatory Assistive Device (Walker, Cane, Wheelchair, Crutches, etc.)? Yes, Patient High Riskfor Falls What interventions were put in place to prevent falls during this visit? Instructed Patient to Callfor Help if Needed, Offered Assistance with Transfers/Clothing, Increased Observations by Caregivers, and Escorted to/from Restroom PATIENT GENDER DATA: .female : No ALLERGIES: Reviewed and unchanged MEDICATIONS REVIEWED: No PATIENT RELEVANT IMPLANT DATA REVIEWED: Not Applicable CREATININE: Creatinine Date Value Ref Range Status 10/17/2021 0.75 0.58 - 0.96 mg/dL Final 05/23/2020 0.94 0.58 - 0.96 mg/dL Final 08/26/2019 0.77 0.58 - 0.96 mg/dL Final Estimated Glomerular Filtration Rate Date Value Ref Range Status 10/17/2021 84 >=60 mL/min/1.73m Final Comment: Estimated Glomerular Filtration Rate (eGFR) is calculated using the 2020 CKD-EPI creatinine equation. This equation utilizes serum creatinine, sex, and age as parameters. The creatinine assay has traceable calibration to isotope dilution- mass spectrometry. Refer to KDIGO guidelines for clinical interpretation. In patients with unstable renal function, e.g. those with acute kidney injury, the eGFRmay not accurately reflect actual GFR. eGFR- Date Value Ref Range Status 05/23/2020 >60 Final P.O.C.T. RESULTS: POC done: Yes, See Lab Tab October 23, [address] PERFORMED: No IV SITE: Ambulatory: A peripheral IV was started in the Right forearm with a Angio cath: 24 gauge. POST EXAM PIV STATUS: Discontinued PROCEDURE TYPE: NM INJECT: PET/CT BODY SCAN. 12.8 mCi F18 FDG. No other medications given.. ADMINISTRATION TIME: 1317 PATIENT DISCHARGED TO: Ambulatory patient, left NM department area. A Diagnostic radioactive procedure has taken place, with no further precautions necessary other than routine body substance precautions. More information regarding radiation safety can be found usingthis link: [email or web address] 20Diagnostic%[email or web address]%[email or web address] SIGNATURE: RT Michell(R) PATIENT NAME: Charissa Wallace DATE: October 23, 2021 TIME: 1:27 PM PAGER/CONTACT #: documented in this encounterWilson Health09-13-2022 Miscellaneous Notes* Telephone Encounter - Leslie Gallagher - 10/22/2021 4:05 PM EDT Patient scheduled. documented in this encounterWilson Health09-13-2022 Miscellaneous Notes* Telephone Encounter - Lidia Montgomery LPN - 10/22/2021 11:26 AM EDT Pt. Was discharged from [facility] 10/21/21 Lidia Montgomery LPN * Telephone Encounter - Lidia Montgomery LPN - 10/21/2021 12:07 PM EDT Spoke with pts. Daughter, she is very upset , her [facility] and pt. Is ready to walk out. Wanting to have her mother transferred to another hospital. Informed she needed to speak with the physicians who are currently caring for her. Our hands are tied , as dr. Washburn had seen pt. 1 time and we have no say over what physicians at [facility] are doing. Daughter voiced undersanding and will discuss with [facility] physicians. Lidia Montgomery LPN * Telephone Encounter - Pauline Reji Pss - 10/21/2021 11:46 AM EDT Shyanne, daughter is asking to speak to clinical. Please call her at [phone]. * Telephone Encounter - Rayna Bailey LPN - 10/21/2021 9:25 AM EDT [facility] records printed and placed in Dr. Washburn's mailbox for review. Rayna Bailey LPN * Telephone Encounter - Pat Ribeiro Pss - 10/21/2021 9:12 AM EDT Daughter Shyanne is calling patient was admitted to [facility] due to anal bleed. Daughter states hemoglobinwas 7.8 with low blood pressure, Shyanne states she was given blood and hemoglobin went to 7.4 after transfusion but blood pressure is back up. Dr Bartlett was to be in to see patient yesterday however Shyanne states they still have not seen him and not sure what is going on there. documented in this encounterWilson Health09-13-2022 History of Present illness Narrative* Galo Maher MD - 10/22/2021 10:21 AM EDT Radiation Oncology - New Patient/Consult Note PATIENT NAME: Charissa Wallace PATIENT REQUESTING PROVIDER: Raz Brambila MD. 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 Final recommendations will be communicated back to the requesting physician by way of the shared medical record, or letter to requesting physician via US mail. Charissa Wallace is a 76 year old female with a PMH of smoking, CAD (CABG and stents x3--10/2021), hypertension, obstructive sleep apnea, COPD with chronic bronchitis, GERD, Buerger's disease, PVD (carotid stenosis), TIAs and hypothyroidism. The presents today accompanied by her daughters. She reports that she has been experiencing intermittent rectal bleeding for the last 3 years. She was recommended to have a colonoscopy 3 years ago but never had one done. She presented to [facility] with chest pain. Hb was found to be 8.4 g/dl and the patient endorsed rectal bleeding. She was found to have STEMI and had PCI with stent placement in the proximal RCA and mid circumflex. As such, she underwent colonoscopy to evaluateGI bleed. On colonoscopy, she was found to have a frond-like/villous non-obstructing medium-sized mass was found at the anus. The mass was non-circumferential. The mass measured 3 cm in length. In add ition, its diameter measured four mm. Oozing was present. This was biopsied with a cold forceps forhistology. Pathology showed Squamous cell carcinoma. She reports that she has almost continuous anal bleeding. She is eating well and is maintaining herweight. Denies N/V. Denies any groin masses. She complains of pain in the left shoulder that started 9 weeks ago. She is unable to abduct her shoulder above 15 degrees on the left side. Last 5 Encounter Wt Readings: Date: Wt: 10/25/2021 67.1 kg (148 lb) 10/25/2021 67.5 kg (148 lb 12.8 oz) 10/22/2021 66.9 kg (147 lb 7.8 oz) 10/22/2021 66.9 kg (147 lb 6.4 oz) 10/17/2021 67.4 kg (148 lb 8 oz) ALLERGIES Allergen Reactions Bupropion Other: See Comments high doses can not tolerate Dilaudid [Other] Mental Status Change Morphine Hcl Mental Status Change Nubain [Nalbuphine * Orphenadrine Penicillins Rash Ultram [Tramadol Hc* Rash PAST MEDICAL HISTORY Diagnosis Date CAD (coronary artery disease) 7 stents, [facility]. 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 PAST SURGICAL HISTORY Procedure Laterality Date APPENDECTOMY CHOLECYSTECTOMY Cholecystectomy CORONARY ARTERY BYP W/VEIN & ARTERY GRAFT 3 VEIN CABG, three grafts CT BRAIN WO CONTRAST 10/24/2014 mild to moderate diffuse atrophy EKG 12 LEAD 10/25/2014 sinus bradycardia LIG/TRNSXJ FLP TUBE ABDL/VAG APPR UNI/BI Tubal ligation POLYSOMNOGRAM(DIAG) 30552 12/07/2014 THYROIDECTOMY TOTAL/COMPLETE total TONSILLECTOMY PRIMARY/SECONDARY <AGE 14 Tonsillectomy TRANSCATH STENT ADDN VESSEL,PERCUT -2009 Transcath stent addn vessel percut, x3 TRANSCATH STENT INIT VESSEL,PERCUT Transcath stent init vessel percut FAMILY HISTORY Problem Relation Age of Onset Cancer Mother Lung Coronary Artery Disease Mother Diabetes Mother Ischemic Heart Disease Mother CHF. Stroke Mother other (TB) Mother Alcohol/Drug Father Cancer Father Diabetes Father Ischemic Heart Disease Father Massive heart attack Emphysema Sister Cancer Sister Breast in 2 sisters. Coronary Artery Disease Sister Diabetes Sister Ischemic Heart Disease Sister No Known Problems Brother Social History Tobacco Use Smoking status: Every Day Packs/day: 4.00 Years: 58.00 Pack years: 232.00 Types: Cigarettes Start date: 1957 Smokeless tobacco: Never Tobacco comments: Reduced to 1 PPD from 4 PPD. I can't tell you I'll ever quit. Parents smoked in childhood home, and has lived with smokers as adult. Vaping Use Vaping Use: Never used Substance Use Topics Alcohol use: No Drug use: No Residence: [facility] Occupation: Not currently working COMPLETE REVIEW OF SYSTEMS: As noted in HPI PHYSICAL EXAM: VS: BP 121/60 Pulse 84 Resp 16 Wt 66.9 kg (147 lb 7.8 oz) SpO2 97% BMI 27.87 kg/m KPS: 70 General Appearance: Alert and oriented. No acute distress. HEENT: NCAT. Sclera anicteric. EOMI. Neck: Normal ROM. Chest: No respiratory distress. Heart: No cyanosis Abdomen: Nondistended. Musculoskeletal: No edema. Unable to abduct her shoulder above 15 degrees on the left side. Neuro: No focal deficits. 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 She presents today accompanied by her daughters. She continues to have intermittent anal bleeding. Last Hb was 8.5 g/dl. We discussed necessity of staging with PET/CT and MRI as well as HEALTH SERVICES DIRECTOR exam to r/o concurrent HEALTH SERVICES DIRECTOR malignancy. She is scheduled for PET tomorrow, MRI on Thursday, Key Account Executive exam on Thursday. We discussed that in case there is no distant mets, we would recommend definitive ChemoRT if she is a candidate for chemotherapy. Since she lives in [place], she would like to receive treatment at [place]. We will refer her to Dr. Mariano Purdy. Signed by: Ema Jolley MD PGY-4 Radiation Oncology Resident Pager: [phone] STAFF ADDENDUM: Charissa Wallace was seen in conjunction with the resident and I agree with the above documentationwhich reflects my edits. I reviewed the available radiology images and reports, clinical nodes, pathology and laboratory results Staging pending. MRI and PET/CT planned in the next few days. She prefers treatment at [place] - will refer her to my excellent colleague, Dr. Mariano Purdy. Given shoulder pain, will get xray and refer to orthopedics for further eval and treatment. Galo Maher MD Staff Physician Department of Radiation Oncology cc: Ashley Parikh [address] [place] [id number] [address] Mariano Purdy, [facility] Dr. Kingsley Washburn, [facility] Dr. Nghia Brambila, [facility] documented in this encounterWilson Health09-13-2022 History and physical note * Raz Brambila MD - 10/22/2021 8:30 AM EDT COLORECTAL SURGERY New Patient Visit October 22, 2021 Chief Complaint: Anal Cancer History of Present Illness: Charissa Mustafa is a 76 year old female with CAD w recent PCI, and long smoking history (232 pack years), current 2ppd) here today for the surgical evaluation of anal SCC. States she has been having intermittent BRBPR for several years. Intermittent. Was recommended to undergo colonoscopy, but never got it. Was ultimately, admitted to [facility] on 10-08-21 with complaints of chest pain, and rectal bleeding. Diagnosed with NSTEMI, she underwent a cardiac cath with stent placement to the proximal RCA and mid circumflex. She was subsequently started onBrillinta and Plavix. She underwent a inpatient colonoscopy for further evaluation of rectal bleeding, during which she was found to have a medium sized mass in the anus, which was non-circumferential. It was 3 cm in length and diameter was 4 mm. Biopsies were obtained and confirmed anal SCC. She has been seen by Dr Washburn with hem onc, and discussed elicia protocol. She needs rad onc appt, and is scheduled for PET CT on 10-23-21. She also still needs rectal MRI, which was ordered and appt requested. Currently she feels well, was discharged from hospital today. No bleeding per rectum today. Has regular bm. Able to walk. No weight loss. Additionally, she fell 9 weeks ago, and has a Left broken humerus. PMH: smoking, CAD (CABG x4 2006 and multiple stents x3--10/2021), hypertension, obstructive sleep apnea, COPD with chronic bronchitis, GERD, Buerger's disease, PVD (carotid stenosis), TIAs, and hypothyroidism. 10/09/21 Colonoscopy Findings: Hemorrhoids were found on perianal exam. A 5 mm polyp was found in the rectum. The polyp was sessile. The polyp was removed with a cold biopsy forceps. Resection and retrieval were complete. This was biopsied with a cold snare for histology. Verification of patient identification for the specimen was done. Estimated blood loss was minimal. Two small patchy angiodysplastic lesions with bleeding were found at the splenic flexure. Coagulation for hemostasis using heater probe was successful. Estimated blood loss was minimal. Many large-mouthed diverticula were found in the recto-sigmoid colon and sigmoid colon. There was no evidence of diverticular bleeding. Moderate inflammation characterized by erosions, erythema and friability was found in the recto-sigmoid colon. A frond-like/villous non-obstructing medium-sized mass was found at the anus. The mass was non-circumferential. The mass measured three cm in length. In addition, its diameter measured four mm. Oozing was present. This was biopsied with a cold forceps for histology. Verification of patient identification for the specimen was done. Estimated blood loss was minimal. Impression: - Hemorrhoids found on perianal exam. - One 5 mm polyp in the rectum, removed with a cold biopsy forceps. Resected and retrieved. Biopsied. - Two bleeding colonic angiodysplastic lesions. Treated with a heater probe. - Severe diverticulosis in the recto-sigmoid colon and in the sigmoid colon. There was no evidence of diverticular bleeding. - Moderate inflammation was found in the recto-sigmoid colon secondary to ischemic colitis. - Rule out malignancy, tumor at the anus. Biopsied. 10/09/21 Biopsy A. Rectal polyp, biopsy: Hyperplastic polyp. B. Anal mass, biopsy: Squamous cell carcinoma. B. Sections show fragments of superficial squamous mucosa with squamous cell carcinoma in situ. Definitive invasion is not identified. Immunohistochemistry ([id number]) supports the above diagnosis. 10/09/21 EGD Findings: The examined esophagus was normal. A medium-sized hiatal hernia was present. The second portion of the duodenum was normal. Impression: - Normal esophagus. - Medium-sized hiatal hernia. - Normal second portion of the duodenum. - No specimens collected. PAST MEDICAL HISTORY Diagnosis Date CAD (coronary artery disease) 7 stents, [facility]. 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 did not show signficant obstruction Obstructive sleep apnea 12/21/14 Positive PPD Syncope 10/27/2014 Vertigo Vocal cord polyp PAST SURGICAL HISTORY Procedure Laterality Date APPENDECTOMY CHOLECYSTECTOMY 1997 Cholecystectomy CORONARY ARTERY BYP W/VEIN & ARTERY GRAFT 3 VEIN CABG, three grafts CT BRAIN WO CONTRAST 10/24/2014 mild to moderate diffuse atrophy EKG 12 LEAD 10/25/2014 sinus bradycardia LIG/TRNSXJ FLP TUBE ABDL/VAG APPR UNI/BI Tubal ligation POLYSOMNOGRAM(DIAG) 14064 12/07/2014 THYROIDECTOMY TOTAL/COMPLETE 2000 total TONSILLECTOMY PRIMARY/SECONDARY <AGE 14 Tonsillectomy TRANSCATH STENT ADDN VESSEL,PERCUT Transcath stent addn vessel percut, x3 TRANSCATH STENT INIT VESSEL,PERCUT Transcath stent init vessel percut Current Outpatient Medications Medication Sig Dispense Refill lisinopril (ZESTRIL, PRINIVIL) 40 mg tablet Take 1 tablet by mouth once daily. 90 tablet 3 levothyroxine (SYNTHROID) 75 mcg tablet Take 1 tablet by mouth once daily. 90 tablet 1 oxybutynin XL (DITROPAN XL) 5 mg 24 hr tablet Take 1 tablet by mouth once daily. 90 tablet 1 atorvastatin (LIPITOR) 40 mg tablet Take 1 tablet by mouth daily at bedtime. For cholesterol. 90 tablet 1 albuterol HFA (PROAIR HFA) 90 mcg/actuation inhaler Inhale 2 Puffs as instructed every 6 hours as needed. 1 Each 1 fluticasone (FLONASE) 50 mcg/actuation nasal spray Use 2 Sprays in each nostril once daily. Rinse mouth after use. 1 Each 11 atenolol (TENORMIN) 50 mg tablet Take 1 tablet by mouth once daily. 90 tablet 1 clopidogrel (PLAVIX) 75 mg tablet Take 1 tablet by mouth every other day. Every other day. ondansetron orally disintegrating (ZOFRAN ODT) 4 mg disintegrating tablet DISSOLVE ONE TABLET IN MOUTH EVERY 6 HOURS NEEDED FOR NAUSEA AND FOR VOMITING [address] (PROTONIX) 40 mg tablet Take 1 tablet by mouth twice daily. 60 tablet 3 oxyCODONE-acetaminophen (PERCOCET) 5-325 mg tablet Take 1 tablet by mouth every 6 hours as needed for pain. 12 tablet 0 tiZANidine (ZANAFLEX) 2 mg tablet Take 1 tablet by mouth twice daily as needed (for back pain; muscle relaxer). 30 tablet 0 meloxicam (MOBIC) 7.5 mg tablet Take 2 tablets by mouth once daily. Take with food. 30 tablet 0 WALKER ROLLATOR SEAT WITH 6 WHEELS - RED One rollator with seat. Dx M51.6, M43.16, M54.42 1 Each 0 hydrocortisone (ANUSOL-HC) 25 mg suppository 1 Suppository by RECTAL route twice daily as needed. 10 Each 1 hemorrhoid ointment (HEMORRHOID) rectal ointment by RECTAL route twice daily as needed. 57 g 1 gabapentin (NEURONTIN) 100 mg capsule Take 2 capsules by mouth three times daily for 180 days. 540 capsule 1 fexofenadine (CECILIA ALLERGY) 180 mg tablet Take 1 tablet by mouth once daily. 30 tablet 3 fluticasone (FLONASE) 50 mcg/actuation nasal spray Use 2 Sprays in each nostril once daily. Rinse mouth after use. (Patient not taking: Reported on 07/30/2021 ) 1 Bottle 2 lactose-reduced food (ENSURE ACTIVE CLEAR ORAL) Take by mouth. MULTI-VITAMIN ORAL Take by mouth. citalopram (CELEXA) 40 mg tablet Takes one tablet by mouth at 8am and one-half tab at noon acetaminophen (TYLENOL EXTRA STRENGTH) 500 mg tablet Take 1 tablet by mouth every 6 hours as neededfor Pain. 0 aspirin 81 mg ORAL chewable tablet Take 1 tablet by mouth once daily. 0 No current facility-administered medications for this visit. ALLERGIES Allergen Reactions Bupropion Other: See Comments high doses can not tolerate Dilaudid [Other] Mental Status Change Morphine Hcl Mental Status Change Nubain [Nalbuphine * Orphenadrine Penicillins Rash Ultram [Tramadol Hc* Rash Review of Systems / PACC screen: Do you have difficulty climbing a full flight of stairs without feeling short of breath? no Do you require oxygen for your breathing or have your gone to an emergency department because of breathing problems? no Are you on dialysis or have you been told that your kidneys do not work well as they should? no Do have an implanted cardiac device (pacemaker, defibrillator etc.) that has not been checked in the last 6 months? no Have you had an organ transplant? no Have you been told that you had excessive bleeding during surgical procedures or do you take blood thinning medications other than aspirin? no Have you ever had a heart attack, heart stents/surgery, valve problems, or other heart problems? yes CAD Have you had a stroke, seizures, or unexplained loss of consciousness? no Do you have a neurologic condition like Parkinson's disease or multiple sclerosis? no Have you or a blood relative had a life-threatening reaction to anesthesia? no Do you have cirrhosis of the liver or other liver disease? no Have you had a blood clot within the past year? no Do you take insulin or other injections for diabetes? no Do you have sleep apnea or have you been told you may have sleep apnea? no Do you have other implanted devices (deep brain stimulator, spinal cord stimulator, etc.)? no Physical Exam: There were no vitals taken for this visit. General Appearance: thin, frail. Lungs: Lungs clear to auscultation. No wheezing, rhonchi, rales. Heart: RRR without murmur, gallop, or rubs. No ectopy Edema: no Abdomen: Normal abdominal exam, Abdomen soft, non-tender. Bowel sounds normal. No masses, organomegaly No inguinal LAD Anorectal: Perianal skin is intact. No erythema, induration or excoriation. Firm lesion extending outside the anal canal anteriorly. .No fissure, fistula or external hemorrhoids. Digital Rectal Exam: Anus: closed Resting tone: NORMAL Squeeze tone: NORMAL Environmental Health Physician present: Yes Anterior lesion, growing outside of the anus. Tumor is approx 4 cm, extending into perineal body. T2 lesion. Assessment Medical Decision Making: Assessment & Diagnosis: Charissa Wallace is a 76 year old female with CAD (hx cabg and recent PCI, on DAPT) and extensive smoking history who recently underwent her first colonoscopy for rectal bleeding with finding of 4 cmanal SCC. T2 on clinical exam. Data Reviewed: Tests & Documents Reviewed/ordered: Review of Pathology I have independently interpreted: na I have discussed Charissa Wallace's treatment plan and/or results with family. Treatment plan: Rectal MRI PET scan scheduled Seeing Dr. Maher today TB Thursday w path review [facility] STAFF PHYSICIAN NOTE OF PERSONAL INVOLVEMENT IN CARE I have reviewed the consult note obtained and documented by the fellow and I personally participated in the davila components. I have discussed the case and management of the patient's care. The following comments revise or confirm relevant davila components of their note. IMPRESSION: This is a 76 year old female who presents with an anal cancer midline anterior and about 4cm x 2 cm in size. Needs to complete the staging PLAN:MRI, CT chest. Will present at MDT. Went over long discussion about Elicia protocol. Follow up with me after chemo rads and surveillance Plan of care discussed with Patient and Family/Significant Other: daughters CARE COORDINATION: Consult MDT for opinion and advice regarding above SIGNATURE: Raz Brambila MD DATE of SERVICE: October 22, 2021 TIME of SERVICE: 11:48 AM Colorectal Surgery Risk of morbidity, mortality and/or complications of treatment plan: low documented in this encounterWilson Health09-09-2022 Miscellaneous Notes* Telephone Encounter - Leslie Greenberg Pss - 10/18/2021 2:26 PM EDT Referral faxed to Palliative Care at [facility]. documented in this encounterWilson Health09-08-2022 Miscellaneous Notes* Telephone Encounter - Digna Scott RN - 10/17/2021 4:00 PM EDT Met with patient and introduced myself. Patient was given a My Journey binder with chemocare information, office contact information, thermometer, and additional chemotherapy resource booklets. Patient aware this nurse will review on scheduled appointment date. Information given on 5FU and Mytomycin Tatianna Scott RN documented in this encounterWilson Health09-08-2022 History of Present illness Narrative* Kingsley Washburn DO - 10/17/2021 3:00 PM EDT Patient referred by Dr. Parikh for anal cancer. The impression and plan will be communicated by way of the shared electronic record or faxed under separate cover letter. HPI: The patient is a 76-year-old female with a past medical history significant for smoking, CAD (CABG and stents x3--10/2021), hypertension, obstructive sleep apnea, COPD with chronic bronchitis, GERD, Buerger's disease, PVD (carotid stenosis), TIAs and hypothyroidism. Patient was admitted to [facility] on 10/08/2021 after presenting to the ED with complaints of chest pain. Hemoglobin was 8.4 g/dL and she endorsed rectal bleeding. Noticed with non-STelevation HI. She was managed medically. Underwent colonoscopy to evaluate GI bleed. Hemorrhoids were found on perianal exam. A 5 mm polyp was found in the rectum. The polyp was sessile. The polyp was removed with a cold biopsy forceps. Resection and retrieval were complete. This was biopsied with a cold snare for histology. Two small patchy angiodysplastic lesions with bleeding were found at the splenic flexure. Coagulation for hemostasis using heater probe was successful. Estimated blood loss was minimal. Many large-mouthed diverticula were found in the recto-sigmoid colon and sigmoid colon. There was no evidence of diverticular bleeding. Moderate inflammation characterized by erosions, erythema and friability was found in the recto-sigmoid colon. A frond-like/villous non-obstructing medium-sized mass was found at the anus. The mass was non-circumferential. The mass measured three cm in length. In addition, its diameter measured four mm. Oozing was present. This was biopsied with a cold forceps for histology. Verification of patient identification for the specimen was done. Estimated blood loss was minimal. Pathology: A. Rectal polyp, biopsy: -Hyperplastic polyp. B. Anal mass, biopsy: -Squamous cell carcinoma COMMENT B. Sections show fragments of superficial squamous mucosa with squamous cell carcinoma in situ. Definitive invasion is not identified. CT chest was performed on presentation to the hospital and she was not found to have pulmonary embolism. There was a healing fracture of the left humeral neck. She underwent cardiac catheterization with stent placement to the proximal RCA and mid circumflex. At time of discharge, hemoglobin was 8.5 g/dL. Appetite normal. Denies rectal bleeding since discharge. Denies rectal/anal pain. Bowels moving regularly. Formed stools. No further chest pain since discharge. Smokes about 2 ppd. Hasn't seen pulmonology in the past. No home O2. Uses cane due to chronic LBP. PAST MEDICAL HISTORY Diagnosis Date CAD (coronary artery disease) 7 stents, [facility]. 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 did not show signficant obstruction Obstructive sleep apnea 12/21/14 Positive PPD Syncope 10/27/2014 Vertigo Vocal cord polyp PAST SURGICAL HISTORY Procedure Laterality Date APPENDECTOMY CHOLECYSTECTOMY Cholecystectomy CORONARY ARTERY BYP W/VEIN & ARTERY GRAFT 3 VEIN CABG, three grafts CT BRAIN WO CONTRAST 10/24/2014 mild to moderate diffuse atrophy EKG 12 LEAD 10/25/2014 sinus bradycardia LIG/TRNSXJ FLP TUBE ABDL/VAG APPR UNI/BI Tubal ligation POLYSOMNOGRAM(DIAG) 20703 12/07/2014 THYROIDECTOMY TOTAL/COMPLETE total TONSILLECTOMY PRIMARY/SECONDARY <AGE 12 Tonsillectomy TRANSCATH STENT ADDN VESSEL,PERCUT Transcath stent addn vessel percut, x3 TRANSCATH STENT INIT VESSEL,PERCUT Transcath stent init vessel percut ALLERGIES Allergen Reactions Bupropion Other: See Comments high doses can not tolerate Dilaudid [Other] Mental Status Change Morphine Hcl Mental Status Change Nubain [Nalbuphine * Orphenadrine Penicillins Rash Ultram [Tramadol Hc* Rash Current Outpatient Medications Medication Sig BRILINTA 90 mg tablet Take 90 mg by mouth twice daily. Melatonin 5 mg cap Take by mouth daily at bedtime. lisinopril (ZESTRIL, PRINIVIL) 40 mg tablet Take 1 tablet by mouth once daily. levothyroxine (SYNTHROID) 75 mcg tablet Take 1 tablet by mouth once daily. oxybutynin XL (DITROPAN XL) 5 mg 24 hr tablet Take 1 tablet by mouth once daily. atorvastatin (LIPITOR) 40 mg tablet Take 1 tablet by mouth daily at bedtime. For cholesterol. albuterol HFA (PROAIR HFA) 90 mcg/actuation inhaler Inhale 2 Puffs as instructed every 6 hours as needed. fluticasone (FLONASE) 50 mcg/actuation nasal spray Use 2 Sprays in each nostril once daily. Rinse mouth after use. atenolol (TENORMIN) 50 mg tablet Take 1 tablet by mouth once daily. ondansetron orally disintegrating (ZOFRAN ODT) 4 mg disintegrating tablet DISSOLVE ONE TABLET IN MOUTH EVERY 6 HOURS NEEDED FOR NAUSEA AND FOR VOMITING pantoprazole DR (PROTONIX) 40 mg tablet Take 1 tablet by mouth twice daily. oxyCODONE-acetaminophen (PERCOCET) 5-325 mg tablet Take 1 tablet by mouth every 6 hours as needed for pain. tiZANidine (ZANAFLEX) 2 mg tablet Take 1 tablet by mouth twice daily as needed (for back pain; muscle relaxer). meloxicam (MOBIC) 7.5 mg tablet Take 2 tablets by mouth once daily. Take with food. hydrocortisone (ANUSOL-HC) 25 mg suppository 1 Suppository by RECTAL route twice daily as needed. gabapentin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 07/30/2021 136/66 Please advise. Thank you. Charla Butler LPN * Telephone Encounter - Alyssa Treviño Pss - 08/26/2021 2:10 PM EDT Patient has been identified by name and date of : Yes Pending Prescriptions Disp Refills LISINOPRIL 40 MG TABLET 90 tablet 3 Sig: Take 1 tablet by mouth once daily. ZOEY: No RX INSTRUCTIONS: Patient aware RX will be sent to pharmacy. No need to notify patient. Alyssa Treviño Pss documented in this encounterWilson Health07-14-2022 Miscellaneous Notes* Telephone Encounter - Agnieszka Rushing LPN - 08/22/2021 10:31 AM EDT Patient notified. Verbalized understanding. * Telephone Encounter - Ashley Parikh MD - 08/21/2021 8:14 PM EDT Apologies but I cant start this for her, her age, is a contraindication for it. Increased risk of falls, dementia and dizziness * Telephone Encounter - Bessie Walters LPN - 08/20/2021 11:00 AM EDT Pt called in for: 1. refill on her Ativan 1 mg taking 4 times a day. She has been getting this from Dr. Kailash Asif.He has refused to give this to her and she was told she needed to come in for an apt. Pt states shehas fallen and broke her arm and has an apt today with surgeon to see if she can have surgery done. 2. asking if she can start to get Ativan from you because it is hard to get over to [place] for apts. Pt has a follow up apt 10/30/21. Please advise pt on above. Bessie Walters LPN documented in this encounterWilson Health07-13-2022 Miscellaneous Notes* Telephone Encounter - Lizz Nur APRN.CNP - 08/21/2021 1:29 PM EDT Noted. Refill request for Ativan which we have never prescribed. Dr. Parikh to review request. Lizz Nur APRN.CNP * Telephone Encounter - Eufemia Fulton Ma - 08/21/2021 11:17 AM EDT Patient states feeling fine other than pain from broken arm which patient feels why BP was elevated. Patient states BP has been rechecked and it has come down although she can not remember what it was. Patient is asking about refill request made yesterday, Please advise * Telephone Encounter - Lizz Nur APRN.CNP - 08/21/2021 10:39 AM EDT Please call patient and see how she is feeling today and if blood pressure has been rechecked recently. Thank you Lizz Nur APRN.CNP * Telephone Encounter - Patricia Mtz RN - 08/19/2021 3:16 PM EDT Abbi OT with [facility] called in and wanted to report an elevated BP. She states at the beginning of her appointment at about 2 pm it was 175/81 at the end of the appointment it was 174/77. Heart rates was in the 60s, and Pt was asymptomatic. documented in this encounterWilson Health07-08-2022 Miscellaneous Notes* Telephone Encounter - Eufemia Fulton Ma - 08/16/2021 4:05 PM EDT Left detailed message on webme VM. * Telephone Encounter - Lizz Nur APRN.CNP - 08/16/2021 3:54 PM EDT Ok with change in order. Lizz Nur APRN.CNP * Telephone Encounter - Patricia Mtz RN - 08/16/2021 8:48 AM EDT Jessica from [facility] called in and is asking for a delay of care request. She saw the patient yesterday instead of in 5 days of the order per the patients request. She reports the patient was too busy at that time. Please call with answer. documented in this encounterWilson Health07-08-2022 Miscellaneous Notes* Telephone Encounter - Jaquelin Villegas LPN - 08/16/2021 10:36 AM EDT Floridalma from [facility] calling asking for copy of patient medication list. Printed last office visit 07/30/2021 with Elise Hines NP and faxed to [phone] as requested. documented in this encounterWilson Health07-06-2022 Miscellaneous Notes* Telephone Encounter - Ashley Parikh MD - 08/14/2021 3:00 PM EDT Noted and agree * Telephone Encounter - Kylie Llanos RN - 08/14/2021 2:41 PM EDT Abbi OT calling from [facility] to report plan of care for patient and OT will visit patient 1 time a week for first week and 2 times a week for 3 weeks. OT will work with patient on ADL's and IADL's. Abbi reports patient has an ortho follow up on Monday August 16, 2021 and plan or frequency might change at that time based on ortho assessment. No call back necessary unless provider has questions [phone]. . Kylie Llanos RN documented in this encounterWilson Health07-05-2022 Miscellaneous Notes* Telephone Encounter - Abhilash Thornton Ma - 08/13/2021 4:26 PM EDT FAYE: 07/30/2021 Last refill: 08/05/2021 QTY: 12 Refills: 0 * Telephone Encounter - Jane Rodgers - 08/13/2021 3:31 PM EDT Patient has been identified by name and date of : Yes Pending Prescriptions Disp Refills OXYCODONE-ACETAMINOPHEN 5 MG-325 MG TABLET 12 tablet 0 Sig: Take 1 tablet by mouth every 6 hours as needed for pain. NAM Class: C-II ZOEY: No RX INSTRUCTIONS: Patient aware RX will be sent to pharmacy. Patient would still like a call when RX is sent at [phone] Patient will see orthopedic provider for refills after this on Thursday for her left arm fracture Jane Rodgers documented in this encounterWilson Health07-05-2022 Miscellaneous Notes* Telephone Encounter - Patricia Mtz RN - 08/13/2021 2:16 PM EDT Called and left a detailed voicemail notifying patient of providers message. Hospital phone number was left in case patient had any questions. Patricia Mtz RN * Telephone Encounter - Ashley Parikh MD - 08/13/2021 1:31 PM EDT Agreed and ok * Telephone Encounter - Jaquelin Villegas LPN - 08/13/2021 9:08 AM EDT Maci from [facility] calling with PT plan of care, 3 visits weekly for 1 week then 2 visits weekly for 3 weeks. Working on balance, fall prevention, gait and transfer training. documented in this encounterWilson Health07-01-2022 Miscellaneous Notes* Telephone Encounter - Agnieszka Hyde Ma - 08/09/2021 12:36 PM EDT Yesi notified * Telephone Encounter - Ashley Parikh MD - 08/09/2021 11:20 AM EDT Noted and agree * Telephone Encounter - Pat Turner RN - 08/09/2021 10:36 AM EDT Yesi a nurse with [facility] calling to report start of care for patient. Nursing will be seeing patient two times per week for two weeks then one time per week for three weeks for fall prevention, disease mgmt and medication mgmt. Yesi also requesting order for Appellate Conferee consult for patient to assist her with community resources. Please call Cheikh with order at [phone]. Thank you. documented in this encounterWilson Health06-29-2022 Miscellaneous Notes* Telephone Encounter - Lizz Nur APRN.CNP - 08/07/2021 4:01 PM EDT Agree and provider will follow. Thank you Lizz Nur APRN.CNP * Telephone Encounter - Ann Patton RN - 08/07/2021 2:33 PM EDT JOHN Márquez @ [facility] calling with home health orders for nursing, PT/OT and GERONTOLOGICAL NURSE PRACTITIONER due to frequent ER visits and frequent falls. Agree and willing to follow? Ann Patton RN documented in this encounterWilson Health06-29-2022 Miscellaneous Notes* Telephone Encounter - Staci Mcelroy Cma - 08/07/2021 1:30 PM EDT Spoke to daughter she states patient is currently being evaluated at the ER. Staci Mcelroy Cma * Telephone Encounter - Lizz Nur APRN.CNP - 08/07/2021 12:28 PM EDT Agree with recommendations. Patient needs urgently evaluated for this. Thank you Lizz Nur APRN.CNP * Telephone Encounter - Jaquelin Villegas LPN - 08/07/2021 11:21 AM EDT Patient daughter Shyanne calling mother has fall Thursday outside tripped over her garden hose, carrying plastic pop bottles into her home fell on her chest, bottles hit high on her chest. Daughter said she is not sure if she fractured her left arm, no cast or splint arm in sling, her chest is severely bruised black in color both breasts. She said mother is having severe pain. Daughter can not findany discharge paper work, daughter had been out of town. Advised to have mother evaluated in ER, with new bruising and pain. documented in this encounterWilson Health06-27-2022 Miscellaneous Notes* Telephone Encounter - Ayanna Mitchell RN - 08/05/2021 4:23 PM EDT Patient returned call and given provider's message below with verbalized understanding. Patient states she will call back to schedule appt as she needs to find someone to help her get to appt. * Telephone Encounter - Patricia Mtz RN - 08/05/2021 4:05 PM EDT Called and left a voicemail for the Patient to call back and ask for a nurse to receive the providers message. Patricia Mtz RN * Telephone Encounter - Lizz Nur APRN.CNP - 08/05/2021 1:32 PM EDT Hospital records show humeral neck fracture. Short refill sent in for patient, but patient needs toschedule a hospital follow up. Thank you Lizz Nur APRN.CNP * Telephone Encounter - Patricia Mtz RN - 08/05/2021 8:31 AM EDT Pt called in and is asking if provider could send in a prescription for Oxycodone APAP 5 mg/ 325 mgtablets, generic Percocet. She repots she must have gotten them in the ER. Pt saw Elise Hines 07/30and was given [place]. Pt reports [place] makes her sick and would like an order for Percocet. Pt was back at ER 08/02 and they gave her an order for 12 tablets of Percocet's. Did not see that Pt had beenback to the ER before hanging up with her, had talked with her before and knew she had gone previously. Pt reports that she broke her arm and that is why she needs pain meds, but from both ER visits it reports falls abdominal pain and back pain. When she came in for her visit with James Hines LICENSE CLERK it was for back pain with sciatica. Seemed like the daughter had called in thinking her mother may have dementia, please see previous telephone encounter. Please call and advise. documented in this encounterWilson Health06-13-2022 Miscellaneous Notes* Telephone Encounter - Eufemia Fulton Ma - 07/22/2021 5:00 PM EDT Patient notified and scheduled. * Telephone Encounter - Lizz Nur APRN.CNP - 07/22/2021 4:52 PM EDT Noted, but if patient is experiencing TIAs she needs seen earlier that 08/07. Is she willing to see another provider if there is availability? Thank you Lizz Nur APRN.CNP * Telephone Encounter - Mayuri Corral RN - 07/22/2021 3:44 PM EDT Patient calls and states that she is concerned that she is having TIAs. Patient states that the most recent one was on Thursday. Patient denies seeing a neurologist for this. Patient has no symptoms currently. Patient asking for an appointment with provider. First open appointment is with Lizz on 08/07/2021. Patient scheduled for appointment. Advised patient that for sign and symptoms of TIA that she needs to go to ER to be evaluated for this. Patient states that she understands but they will not do anything for her. Please review and advise, Mayuri Corral RN documented in this encounterWilson Health04-27-2022 Miscellaneous Notes* Telephone Encounter - Eufemia Fulton Ma - 06/05/2021 8:15 AM EDT Care everywhere shows patient went to ED, awaiting fax from ED. * Telephone Encounter - Ashley Parikh MD - 06/04/2021 5:01 PM EDT Noted * Telephone Encounter - Patricia Mtz RN - 06/04/2021 11:50 AM EDT Protocol recommends see provider in 3 days or go to UC if can't make an appointment. She is going to call her children to see when they would be able to give her a ride to the provider, otherwise shewill have them take her to UC or ER. Care plan reviewed with patient. Patient voices understanding.Advised patient that if symptoms get worse to be evaluated in Urgent Care or ER. Reason for Disposition Nausea lasts > 1 week Answer Assessment - Initial Assessment Questions 1. NAUSEA SEVERITY: Pt reports she gets nausea every time she gets up in the morning and before shegoes to bed at night, and all day long. - MILD: loss of appetite without change in eating habits - MODERATE: decreased oral intake without significant weight loss, dehydration, or malnutrition - SEVERE: inadequate caloric or fluid intake, significant weight loss, symptoms of dehydration Pt reports she has been able to eat and drink and keep everything down, but small amounts at a time. Pt denies weight loss that she knows of. 2. ONSET: Pt reports it began a few weeks ago. 3. VOMITING: Pt denies vomiting. 4. RECURRENT SYMPTOM: Pt denies having the nausea on going like this. 5. CAUSE: Pt denies. 6. : Pt is postmenopausal. Protocols used: [id number] documented in this encounterWilson Health04-22-2022 Miscellaneous Notes* Telephone Encounter - Eufemia Fulton Ma - 05/31/2021 12:44 PM EDT Tried calling patient, rang and rang with no answer. * Telephone Encounter - Lizz Nur APRN.CNP - 05/31/2021 8:01 AM EDT Please let patient know with those symptoms she should be evaluated. Those symptoms could range from flu, covid, gastrointestinal virus, or an infection elsewehre as well. Without being evaluated we are unable to decide best treatment. Thank you Lizz Nur APRN.BRAULIO * Telephone Encounter - Kylie Llanos RN - 05/30/2021 3:31 PM EDT Patient calls to ask if she has the flu based on feeling of fatigue, tired, nausea, and cold chills. Nurse triage completed. Protocol recommends see provider within 24 hours. Patient declining appointment d/t no transportation. Care advice reviewed. Patient verbalizes understanding. Patient reportsshe will call back for worsening symptoms or if there too bad she will go to ER. Patient asking if she needs an antibiotic. Explained to patient she would need to be evaluated for antibiotic treatment. Patient asking provider for recommendation. Reason for Disposition [1] MODERATE weakness (i.e., interferes with work, school, normal activities) AND [2] persists >3 days Answer Assessment - Initial Assessment Questions 1. DESCRIPTION: Tired. Wore out. No Energy. Nausea but already has prescription zofran for nausea and it helps some. Patient reports fair appetite and able to keep food down. Patient is tolerating water. She says she has drank 2 large bottles today. 2. SEVERITY: Patient able to stand and walk but has to rest frequently. - MODERATE - Able to stand and walk; weakness interferes with work, school, or normal activities 3. ONSET: Last 4. CAUSE: Patient believes she might have the flu 5. MEDICINES: No 6. OTHER SYMPTOMS: Patient reports she feels hot then cold (temperature in the 97 range). She feelslike she could vomit but hasn't, occassional dizziness when stands up. No chest pain, fever, cough, SOB, vomiting, diarrhea, bleeding, or pain. Protocols used: WEAKNESS (GENERALIZED) AND [id number] documented in this encounterWilson Health04-20-2022 Miscellaneous Notes* Telephone Encounter - Eufemia Fulton Ma - 05/29/2021 3:56 PM EDT Anusol just filled with 1 refill. * Telephone Encounter - Lizz Nur APRN.CNP - 05/29/2021 1:02 PM EDT Levothyroxine refilled. Does patient need a prescription for anusol suppository or is she just getting over the counter? Also patient needs to get outstanding lab work drawn. Thank you Lizz Nur APRN.BRAULIO * Telephone Encounter - Eufemia Fulton Ma - 05/29/2021 9:54 AM EDT Patient notified and requesting Levothyroxine to refilled. * Telephone Encounter - Ashley Parikh MD - 05/28/2021 5:24 PM EDT I have anusol suppository for the patient and some hemorroidal ointment * Telephone Encounter - Mayuri Corral RN - 05/28/2021 3:12 PM EDT Patient calls and states that she has been having problems with hemorrhoids. Patient states that this hemorrhoid is hanging out my butt. Patient states that her bowels are moving fine. It hurts on sides when she has a bowel movement. Patient asking if there is anything that she can do to help with the hemorrhoid? Patient states that she has history of them when she was 21 and had surgery for it. Patient states that she does not want surgery now. Please review and advise, Mayuri Corral RN documented in this encounterWilson Health04-20-2022 Miscellaneous Notes* Telephone Encounter - Abhilash Thornton Ma - 05/29/2021 3:01 PM EDT Sent this morning. * Telephone Encounter - Tita Gallagher - 05/29/2021 12:57 PM EDT Patient has been identified by name and date of : Yes Pending Prescriptions Disp Refills LEVOTHYROXINE 75 MCG TABLET 90 tablet 1 Sig: Take 1 tablet by mouth once daily. ZOEY: No RX INSTRUCTIONS: patient totally upset confused nephew last month and niece is not doing well now, possible last took this medication in early april. Patient aware RX will be sent to pharmacy. No need to notify patient. Tita Gallagher documented in this encounterWilson Health04-08-2022 Miscellaneous Notes* Telephone Encounter - Ayanna Mitchell RN - 05/17/2021 9:51 AM EDT Patient has been identified by name and date of : Yes Patient phones for refill(s): Pending Prescriptions Disp Refills OXYBUTYNIN CHLORIDE ER 5 MG TABLET,EXTENDED RELEASE 24 HR 90 tablet 1 Sig: Take 1 tablet by mouth once daily. ZOEY: No PANTOPRAZOLE 40 MG TABLET,DELAYED RELEASE 90 tablet 1 Sig: Take 1 tablet by mouth once daily. ZOEY: No ONDANSETRON 4 MG DISINTEGRATING TABLET 20 tablet 2 Sig: DISSOLVE ONE TABLET IN MOUTH EVERY 6 HOURS NEEDED FOR NAUSEA AND FOR VOMITING ZOEY: No Date of last office visit with pcp: 01-31-21. Next appt: none Last 2 Encounter Wt Readings: Date: Wt: 01/31/2021 66.7 kg (147 lb) 01/21/2021 71.2 kg (157 lb) Previous labs/tests for medication: Blood Pressure: BUN (mg/dL) Date Value 05/23/2020 16 Sodium (mmol/L) Date Value 05/23/2020 141 Last 1 Encounter BP Readings: Date: BP: 01/31/2021 132/82 Liver Function: ALT (U/L) Date Value 05/23/2020 17 AST (U/L) Date Value 05/23/2020 22 Please advise. Thank you. 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 She was getting pre-operative workup prior to surgery for a vocal cord polyp surgery. She is transferred for consideration of PCI vs redo CABG. Unfortunately, the [facility] disk does not open on our viewer. She is completely sx free. Sebaceous cyst 10/12/2009 06/05/2015 documented as of this encounter (statuses as of 05/17/2021) [facility] History of Past illness Narrative* Problem Noted Date Resolved Date Centrilobular emphysema 07/24/2017 09/15/19 20 SUMMARY 12/12/2009 09/15/2019 Overview: 64 y/o with hx CABG 06/16/06 (CLARKE to LAD, SVG to RCA, SVG to OM), HTN, COPD, TIA, active smoker admitted as transfer from OSH following left heart cath done that suggested that her 2 vein grafts are down and the CLARKE is patent. She was getting pre-operative workup prior to surgery for a vocal cord polyp surgery. She is transferred for consideration of PCI vs redo CABG. Unfortunately, the C disk does not open on our viewer. She is completely sx free. Sebaceous cyst 10/12/2009 06/05/2015 documented as of this encounter (statuses as of 05/29/2021) [facility] History of Past illness Narrative* Problem Noted Date Resolved Date Centrilobular emphysema 07/24/2017 09/15/19 20 SUMMARY 12/12/2009 09/15/2019 Overview: 64 y/o with hx CABG 06/16/06 (CLARKE to LAD, SVG to RCA, SVG to OM), HTN, COPD, TIA, active smoker admitted as transfer from OSH following left heart cath done that suggested that her 2 vein grafts are down and the CLARKE is patent. She was getting pre-operative workup prior to surgery for a vocal cord polyp surgery. She is transferred for consideration of PCI vs redo CABG. Unfortunately, the C disk does not open on our viewer. She is completely sx free. Sebaceous cyst 10/12/2009 06/05/2015 documented as of this encounter (statuses as of 05/29/2021) [facility]2018 History of Past illness Narrative* Problem Noted Date Resolved Date Centrilobular emphysema 07/24/2017 09/15/19 20 SUMMARY 12/12/2009 09/15/2019 Overview: 64 y/o with hx CABG 06/16/06 (CLARKE to LAD, SVG to RCA, SVG to OM), HTN, COPD, TIA, active smoker admitted as transfer from OSH following left heart cath done that suggested that her 2 vein grafts are down and the CLARKE is patent. She was getting pre-operative workup prior to surgery for a vocal cord polyp surgery. She is transferred for consideration of PCI vs redo CABG. Unfortunately, the [facility] disk does not open on our viewer. She is completely sx free. Sebaceous cyst 10/12/2009 06/05/2015 documented as of this encounter (statuses as of 06/05/2021) [facility] History of Past illness Narrative* Problem Noted Date Resolved Date Centrilobular emphysema 07/24/2017 09/15/19 20 SUMMARY 12/12/2009 09/15/2019 Overview: 64 y/o with hx CABG 06/16/06 (CLARKE to LAD, SVG to RCA, SVG to OM), HTN, COPD, TIA, active smoker admitted as transfer from OSH following left heart cath done that suggested that her 2 vein grafts are down and the CLARKE is patent. She was getting pre-operative workup prior to surgery for a vocal cord polyp surgery. She is transferred for consideration of PCI vs redo CABG. Unfortunately, the [facility] disk does not open on our viewer. She is completely sx free. Sebaceous cyst 10/12/2009 06/05/2015 documented as of this encounter (statuses as of 06/08/2021) [facility] History of Past illness Narrative* Problem Noted Date Resolved Date Centrilobular emphysema 07/24/2017 09/15/19 20 SUMMARY 12/12/2009 09/15/2019 Overview: 64 y/o with hx CABG 06/16/06 (CLARKE to LAD, SVG to RCA, SVG to OM), HTN, COPD, TIA, active smoker admitted as transfer from OSH following left heart cath done that suggested that her 2 vein grafts are down and the CLARKE is patent. She was getting pre-operative workup prior to surgery for a vocal cord polyp surgery. She is transferred for consideration of PCI vs redo CABG. Unfortunately, the [facility] disk does not open on our viewer. She is completely sx free. Sebaceous cyst 10/12/2009 06/05/2015 documented as of this encounter (statuses as of 07/22/2021) [facility] History of Past illness Narrative* Problem Noted Date Resolved Date Centrilobular emphysema 07/24/2017 09/15/19 20 SUMMARY 12/12/2009 09/15/2019 Overview: 64 y/o with hx CABG 06/16/06 (CLARKE to LAD, SVG to RCA, SVG to OM), HTN, COPD, TIA, active smoker admitted as transfer from OSH following left heart cath done that suggested that her 2 vein grafts are down and the CLARKE is patent. She was getting pre-operative workup prior to surgery for a vocal cord polyp surgery. She is transferred for consideration of PCI vs redo CABG. Unfortunately, the [facility] disk does not open on our viewer. She is completely sx free. Sebaceous cyst 10/12/2009 06/05/2015 documented as of this encounter (statuses as of 08/05/2021) [facility] History of Past illness Narrative* Problem Noted Date Resolved Date Centrilobular emphysema 07/24/2017 09/15/19 20 SUMMARY 12/12/2009 09/15/2019 Overview: 64 y/o with hx CABG 06/16/06 (CLARKE to LAD, SVG to RCA, SVG to OM), HTN, COPD, TIA, active smoker admitted as transfer from OSH following left heart cath done that suggested that her 2 vein grafts are down and the CLARKE is patent. She was getting pre-operative workup prior to surgery for a vocal cord polyp surgery. She is transferred for consideration of PCI vs redo CABG. Unfortunately, the [facility] disk does not open on our viewer. She is completely sx free. Sebaceous cyst 10/12/2009 06/05/2015 documented as of this encounter (statuses as of 08/07/2021) [facility] History of Past illness Narrative* Problem Noted Date Resolved Date Centrilobular emphysema 07/24/2017 09/15/19 20 SUMMARY 12/12/2009 09/15/2019 Overview: 64 y/o with hx CABG 06/16/06 (CLARKE to LAD, SVG to RCA, SVG to OM), HTN, COPD, TIA, active smoker admitted as transfer from OSH following left heart cath done that suggested that her 2 vein grafts are down and the CLARKE is patent. She was getting pre-operative workup prior to surgery for a vocal cord polyp surgery. She is transferred for consideration of PCI vs redo CABG. Unfortunately, the [facility] disk does not open on our viewer. She is completely sx free. Sebaceous cyst 10/12/2009 06/05/2015 documented as of this encounter (statuses as of 08/09/2021) [facility] History of Past illness Narrative* Problem Noted Date Resolved Date Centrilobular emphysema 07/24/2017 09/15/19 20 SUMMARY 12/12/2009 09/15/2019 Overview: 64 y/o with hx CABG 06/16/06 (CLARKE to LAD, SVG to RCA, SVG to OM), HTN, COPD, TIA, active smoker admitted as transfer from OSH following left heart cath done that suggested that her 2 vein grafts are down and the CLARKE is patent. She was getting pre-operative workup prior to surgery for a vocal cord polyp surgery. She is transferred for consideration of PCI vs redo CABG. Unfortunately, the [facility] disk does not open on our viewer. She is completely sx free. Sebaceous cyst 10/12/2009 06/05/2015 documented as of this encounter (statuses as of 08/12/2021) [facility] History of Past illness Narrative* Problem Noted Date Resolved Date Centrilobular emphysema 07/24/2017 09/15/19 20 SUMMARY 12/12/2009 09/15/2019 Overview: 64 y/o with hx CABG 06/16/06 (CLARKE to LAD, SVG to RCA, SVG to OM), HTN, COPD, TIA, active smoker admitted as transfer from OSH following left heart cath done that suggested that her 2 vein grafts are down and the CLARKE is patent. She was getting pre-operative workup prior to surgery for a vocal cord polyp surgery. She is transferred for consideration of PCI vs redo CABG. Unfortunately, the [facility] disk does not open on our viewer. She is completely sx free. Sebaceous cyst 10/12/2009 06/05/2015 documented as of this encounter (statuses as of 08/13/2021) [facility] History of Past illness Narrative* Problem Noted Date Resolved Date Centrilobular emphysema 07/24/2017 09/15/19 20 SUMMARY 12/12/2009 09/15/2019 Overview: 64 y/o with hx CABG 06/16/06 (CLARKE to LAD, SVG to RCA, SVG to OM), HTN, COPD, TIA, active smoker admitted as transfer from OSH following left heart cath done that suggested that her 2 vein grafts are down and the CLARKE is patent. She was getting pre-operative workup prior to surgery for a vocal cord polyp surgery. She is transferred for consideration of PCI vs redo CABG. Unfortunately, the [facility] disk does not open on our viewer. She is completely sx free. Sebaceous cyst 10/12/2009 06/05/2015 documented as of this encounter (statuses as of 08/14/2021) [facility] History of Past illness Narrative* Problem Noted Date Resolved Date Centrilobular emphysema 07/24/2017 09/15/19 20 SUMMARY 12/12/2009 09/15/2019 Overview: 64 y/o with hx CABG 06/16/06 (CLARKE to LAD, SVG to RCA, SVG to OM), HTN, COPD, TIA, active smoker admitted as transfer from OSH following left heart cath done that suggested that her 2 vein grafts are down and the CLARKE is patent. She was getting pre-operative workup prior to surgery for a vocal cord polyp surgery. She is transferred for consideration of PCI vs redo CABG. Unfortunately, the [facility] disk does not open on our viewer. She is completely sx free. Sebaceous cyst 10/12/2009 06/05/2015 documented as of this encounter (statuses as of 08/14/2021) [facility] History of Past illness Narrative* Problem Noted Date Resolved Date Centrilobular emphysema 07/24/2017 09/15/19 20 SUMMARY 12/12/2009 09/15/2019 Overview: 64 y/o with hx CABG 06/16/06 (CLARKE to LAD, SVG to RCA, SVG to OM), HTN, COPD, TIA, active smoker admitted as transfer from OSH following left heart cath done that suggested that her 2 vein grafts are down and the CLARKE is patent. She was getting pre-operative workup prior to surgery for a vocal cord polyp surgery. She is transferred for consideration of PCI vs redo CABG. Unfortunately, the [facility] disk does not open on our viewer. She is completely sx free. Sebaceous cyst 10/12/2009 06/05/2015 documented as of this encounter (statuses as of 08/16/2021) [facility] History of Past illness Narrative* Problem Noted Date Resolved Date Centrilobular emphysema 07/24/2017 09/15/19 20 SUMMARY 12/12/2009 09/15/2019 Overview: 64 y/o with hx CABG 06/16/06 (CLARKE to LAD, SVG to RCA, SVG to OM), HTN, COPD, TIA, active smoker admitted as transfer from OSH following left heart cath done that suggested that her 2 vein grafts are down and the CLARKE is patent. She was getting pre-operative workup prior to surgery for a vocal cord polyp surgery. She is transferred for consideration of PCI vs redo CABG. Unfortunately, the [facility] disk does not open on our viewer. She is completely sx free. Sebaceous cyst 10/12/2009 06/05/2015 documented as of this encounter (statuses as of 08/16/2021) [facility] History of Past illness Narrative* Problem Noted Date Resolved Date Centrilobular emphysema 07/24/2017 09/15/19 20 SUMMARY 12/12/2009 09/15/2019 Overview: 64 y/o with hx CABG 06/16/06 (CLARKE to LAD, SVG to RCA, SVG to OM), HTN, COPD, TIA, active smoker admitted as transfer from OSH following left heart cath done that suggested that her 2 vein grafts are down and the CLARKE is patent. She was getting pre-operative workup prior to surgery for a vocal cord polyp surgery. She is transferred for consideration of PCI vs redo CABG. Unfortunately, the [facility] disk does not open on our viewer. She is completely sx free. Sebaceous cyst 10/12/2009 06/05/2015 documented as of this encounter (statuses as of 08/21/2021) [facility] History of Past illness Narrative* Problem Noted Date Resolved Date Centrilobular emphysema 07/24/2017 09/15/19 20 SUMMARY 12/12/2009 09/15/2019 Overview: 64 y/o with hx CABG 06/16/06 (CLARKE to LAD, SVG to RCA, SVG to OM), HTN, COPD, TIA, active smoker admitted as transfer from OSH following left heart cath done that suggested that her 2 vein grafts are down and the CLARKE is patent. She was getting pre-operative workup prior to surgery for a vocal cord polyp surgery. She is transferred for consideration of PCI vs redo CABG. Unfortunately, the [facility] disk does not open on our viewer. She is completely sx free. Sebaceous cyst 10/12/2009 06/05/2015 documented as of this encounter (statuses as of 08/22/2021) [facility] History of Past illness Narrative* Problem Noted Date Resolved Date Centrilobular emphysema 07/24/2017 09/15/19 20 SUMMARY 12/12/2009 09/15/2019 Overview: 64 y/o with hx CABG 06/16/06 (CLARKE to LAD, SVG to RCA, SVG to OM), HTN, COPD, TIA, active smoker admitted as transfer from OSH following left heart cath done that suggested that her 2 vein grafts are down and the CLARKE is patent. She was getting pre-operative workup prior to surgery for a vocal cord polyp surgery. She is transferred for consideration of PCI vs redo CABG. Unfortunately, the [facility] disk does not open on our viewer. She is completely sx free. Sebaceous cyst 10/12/2009 06/05/2015 documented as of this encounter (statuses as of 08/26/2021) [facility] History of Past illness Narrative* Problem Noted Date Resolved Date Centrilobular emphysema 07/24/2017 09/15/19 20 SUMMARY 12/12/2009 09/15/2019 Overview: 64 y/o with hx CABG 06/16/06 (CLARKE to LAD, SVG to RCA, SVG to OM), HTN, COPD, TIA, active smoker admitted as transfer from OSH following left heart cath done that suggested that her 2 vein grafts are down and the CLARKE is patent. She was getting pre-operative workup prior to surgery for a vocal cord polyp surgery. She is transferred for consideration of PCI vs redo CABG. Unfortunately, the [facility] disk does not open on our viewer. She is completely sx free. Sebaceous cyst 10/12/2009 06/05/2015 documented as of this encounter (statuses as of 08/26/2021) [facility] History of Past illness Narrative* Problem Noted Date Resolved Date Centrilobular emphysema 07/24/2017 09/15/19 20 SUMMARY 12/12/2009 09/15/2019 Overview: 64 y/o with hx CABG 06/16/06 (CLARKE to LAD, SVG to RCA, SVG to OM), HTN, COPD, TIA, active smoker admitted as transfer from OSH following left heart cath done that suggested that her 2 vein grafts are down and the CLARKE is patent. She was getting pre-operative workup prior to surgery for a vocal cord polyp surgery. She is transferred for consideration of PCI vs redo CABG. Unfortunately, the [facility] disk does not open on our viewer. She is completely sx free. Sebaceous cyst 10/12/2009 06/05/2015 documented as of this encounter (statuses as of 08/27/2021) [facility]2018 History of Past illness Narrative* Problem Noted Date Resolved Date Centrilobular emphysema 07/24/2017 09/15/19 20 SUMMARY 12/12/2009 09/15/2019 Overview: 64 y/o with hx CABG 06/16/06 (CLARKE to LAD, SVG to RCA, SVG to OM), HTN, COPD, TIA, active smoker admitted as transfer from OSH following left heart cath done that suggested that her 2 vein grafts are down and the CLARKE is patent. She was getting pre-operative workup prior to surgery for a vocal cord polyp surgery. She is transferred for consideration of PCI vs redo CABG. Unfortunately, the [facility] disk does not open on our viewer. She is completely sx free. Sebaceous cyst 10/12/2009 06/05/2015 documented as of this encounter (statuses as of 08/30/2021) [facility]2018 History of Past illness Narrative* Problem Noted Date Resolved Date Centrilobular emphysema 07/24/2017 09/15/19 20 SUMMARY 12/12/2009 09/15/2019 Overview: 64 y/o with hx CABG 06/16/06 (CLARKE to LAD, SVG to RCA, SVG to OM), HTN, COPD, TIA, active smoker admitted as transfer from OSH following left heart cath done that suggested that her 2 vein grafts are down and the CLARKE is patent. She was getting pre-operative workup prior to surgery for a vocal cord polyp surgery. She is transferred for consideration of PCI vs redo CABG. Unfortunately, the [facility] disk does not open on our viewer. She is completely sx free. Sebaceous cyst 10/12/2009 06/05/2015 documented as of this encounter (statuses as of 09/02/2021) [facility]2018 History of Past illness Narrative* Problem Noted Date Resolved Date Centrilobular emphysema 07/24/2017 09/15/19 20 SUMMARY 12/12/2009 09/15/2019 Overview: 64 y/o with hx CABG 06/16/06 (CLARKE to LAD, SVG to RCA, SVG to OM), HTN, COPD, TIA, active smoker admitted as transfer from OSH following left heart cath done that suggested that her 2 vein grafts are down and the CLARKE is patent. She was getting pre-operative workup prior to surgery for a vocal cord polyp surgery. She is transferred for consideration of PCI vs redo CABG. Unfortunately, the [facility] disk does not open on our viewer. She is completely sx free. Sebaceous cyst 10/12/2009 06/05/2015 documented as of this encounter (statuses as of 09/04/2021) [facility]2018 History of Past illness Narrative* Problem Noted Date Resolved Date Centrilobular emphysema 07/24/2017 09/15/19 20 SUMMARY 12/12/2009 09/15/2019 Overview: 64 y/o with hx CABG 06/16/06 (CLARKE to LAD, SVG to RCA, SVG to OM), HTN, COPD, TIA, active smoker admitted as transfer from OSH following left heart cath done that suggested that her 2 vein grafts are down and the CLARKE is patent. She was getting pre-operative workup prior to surgery for a vocal cord polyp surgery. She is transferred for consideration of PCI vs redo CABG. Unfortunately, the [facility] disk does not open on our viewer. She is completely sx free. Sebaceous cyst 10/12/2009 06/05/2015 documented as of this encounter (statuses as of 09/05/2021) [facility]2018 History of Past illness Narrative* Problem Noted Date Resolved Date Centrilobular emphysema 07/24/2017 09/15/19 20 SUMMARY 12/12/2009 09/15/2019 Overview: 64 y/o with hx CABG 06/16/06 (CLARKE to LAD, SVG to RCA, SVG to OM), HTN, COPD, TIA, active smoker admitted as transfer from OSH following left heart cath done that suggested that her 2 vein grafts are down and the CLARKE is patent. She was getting pre-operative workup prior to surgery for a vocal cord polyp surgery. She is transferred for consideration of PCI vs redo CABG. Unfortunately, the [facility] disk does not open on our viewer. She is completely sx free. Sebaceous cyst 10/12/2009 06/05/2015 documented as of this encounter (statuses as of 09/06/2021) [facility] History of Past illness Narrative* Problem Noted Date Resolved Date Centrilobular emphysema 07/24/2017 09/15/19 20 SUMMARY 12/12/2009 09/15/2019 Overview: 64 y/o with hx CABG 06/16/06 (CLARKE to LAD, SVG to RCA, SVG to OM), HTN, COPD, TIA, active smoker admitted as transfer from OSH following left heart cath done that suggested that her 2 vein grafts are down and the CLARKE is patent. She was getting pre-operative workup prior to surgery for a vocal cord polyp surgery. She is transferred for consideration of PCI vs redo CABG. Unfortunately, the [facility] disk does not open on our viewer. She is completely sx free. Sebaceous cyst 10/12/2009 06/05/2015 documented as of this encounter (statuses as of 09/17/2021) [facility] History of Past illness Narrative* Problem Noted Date Resolved Date Centrilobular emphysema 07/24/2017 09/15/19 20 SUMMARY 12/12/2009 09/15/2019 Overview: 64 y/o with hx CABG 06/16/06 (CLARKE to LAD, SVG to RCA, SVG to OM), HTN, COPD, TIA, active smoker admitted as transfer from OSH following left heart cath done that suggested that her 2 vein grafts are down and the CLARKE is patent. She was getting pre-operative workup prior to surgery for a vocal cord polyp surgery. She is transferred for consideration of PCI vs redo CABG. Unfortunately, the [facility] disk does not open on our viewer. She is completely sx free. Sebaceous cyst 10/12/2009 06/05/2015 documented as of this encounter (statuses as of 09/18/2021) [facility] History of Past illness Narrative* Problem Noted Date Resolved Date Centrilobular emphysema 07/24/2017 09/15/19 20 SUMMARY 12/12/2009 09/15/2019 Overview: 64 y/o with hx CABG 06/16/06 (CLARKE to LAD, SVG to RCA, SVG to OM), HTN, COPD, TIA, active smoker admitted as transfer from OSH following left heart cath done that suggested that her 2 vein grafts are down and the CLARKE is patent. She was getting pre-operative workup prior to surgery for a vocal cord polyp surgery. She is transferred for consideration of PCI vs redo CABG. Unfortunately, the [facility] disk does not open on our viewer. She is completely sx free. Sebaceous cyst 10/12/2009 06/05/2015 documented as of this encounter (statuses as of 09/23/2021) [facility] History of Past illness Narrative* Problem Noted Date Resolved Date Centrilobular emphysema 07/24/2017 09/15/19 20 SUMMARY 12/12/2009 09/15/2019 Overview: 64 y/o with hx CABG 06/16/06 (CLARKE to LAD, SVG to RCA, SVG to OM), HTN, COPD, TIA, active smoker admitted as transfer from OSH following left heart cath done that suggested that her 2 vein grafts are down and the CLARKE is patent. She was getting pre-operative workup prior to surgery for a vocal cord polyp surgery. She is transferred for consideration of PCI vs redo CABG. Unfortunately, the [facility] disk does not open on our viewer. She is completely sx free. Sebaceous cyst 10/12/2009 06/05/2015 documented as of this encounter (statuses as of 09/24/2021) [facility] History of Past illness Narrative* Problem Noted Date Resolved Date Centrilobular emphysema 07/24/2017 09/15/19 20 SUMMARY 12/12/2009 09/15/2019 Overview: 64 y/o with hx CABG 06/16/06 (CLARKE to LAD, SVG to RCA, SVG to OM), HTN, COPD, TIA, active smoker admitted as transfer from OSH following left heart cath done that suggested that her 2 vein grafts are down and the CLARKE is patent. She was getting pre-operative workup prior to surgery for a vocal cord polyp surgery. She is transferred for consideration of PCI vs redo CABG. Unfortunately, the [facility] disk does not open on our viewer. She is completely sx free. Sebaceous cyst 10/12/2009 06/05/2015 documented as of this encounter (statuses as of 09/26/2021) [facility] History of Past illness Narrative* Problem Noted Date Resolved Date Centrilobular emphysema 07/24/2017 09/15/19 20 SUMMARY 12/12/2009 09/15/2019 Overview: 64 y/o with hx CABG 06/16/06 (CLARKE to LAD, SVG to RCA, SVG to OM), HTN, COPD, TIA, active smoker admitted as transfer from OSH following left heart cath done that suggested that her 2 vein grafts are down and the CLARKE is patent. She was getting pre-operative workup prior to surgery for a vocal cord polyp surgery. She is transferred for consideration of PCI vs redo CABG. Unfortunately, the [facility] disk does not open on our viewer. She is completely sx free. Sebaceous cyst 10/12/2009 06/05/2015 documented as of this encounter (statuses as of 09/30/2021) [facility] History of Past illness Narrative* Problem Noted Date Resolved Date Centrilobular emphysema 07/24/2017 09/15/19 20 SUMMARY 12/12/2009 09/15/2019 Overview: 64 y/o with hx CABG 06/16/06 (CLARKE to LAD, SVG to RCA, SVG to OM), HTN, COPD, TIA, active smoker admitted as transfer from OSH following left heart cath done that suggested that her 2 vein grafts are down and the CLARKE is patent. She was getting pre-operative workup prior to surgery for a vocal cord polyp surgery. She is transferred for consideration of PCI vs redo CABG. Unfortunately, the [facility] disk does not open on our viewer. She is completely sx free. Sebaceous cyst 10/12/2009 06/05/2015 documented as of this encounter (statuses as of 10/03/2021) [facility] History of Past illness Narrative* Problem Noted Date Resolved Date Centrilobular emphysema 07/24/2017 09/15/19 20 SUMMARY 12/12/2009 09/15/2019 Overview: 64 y/o with hx CABG 06/16/06 (CLARKE to LAD, SVG to RCA, SVG to OM), HTN, COPD, TIA, active smoker admitted as transfer from OSH following left heart cath done that suggested that her 2 vein grafts are down and the CLARKE is patent. She was getting pre-operative workup prior to surgery for a vocal cord polyp surgery. She is transferred for consideration of PCI vs redo CABG. Unfortunately, the [facility] disk does not open on our viewer. She is completely sx free. Sebaceous cyst 10/12/2009 06/05/2015 documented as of this encounter (statuses as of 10/13/2021) [facility] History of Past illness Narrative* Problem Noted Date Resolved Date Centrilobular emphysema 07/24/2017 09/15/19 20 SUMMARY 12/12/2009 09/15/2019 Overview: 64 y/o with hx CABG 06/16/06 (CLARKE to LAD, SVG to RCA, SVG to OM), HTN, COPD, TIA, active smoker admitted as transfer from OSH following left heart cath done that suggested that her 2 vein grafts are down and the CLARKE is patent. She was getting pre-operative workup prior to surgery for a vocal cord polyp surgery. She is transferred for consideration of PCI vs redo CABG. Unfortunately, the [facility] disk does not open on our viewer. She is completely sx free. Sebaceous cyst 10/12/2009 06/05/2015 documented as of this encounter (statuses as of 10/17/2021) [facility] History of Past illness Narrative* Problem Noted Date Resolved Date Centrilobular emphysema 07/24/2017 09/15/19 20 SUMMARY 12/12/2009 09/15/2019 Overview: 64 y/o with hx CABG 06/16/06 (CLARKE to LAD, SVG to RCA, SVG to OM), HTN, COPD, TIA, active smoker admitted as transfer from OSH following left heart cath done that suggested that her 2 vein grafts are down and the CLARKE is patent. She was getting pre-operative workup prior to surgery for a vocal cord polyp surgery. She is transferred for consideration of PCI vs redo CABG. Unfortunately, the [facility] disk does not open on our viewer. She is completely sx free. Sebaceous cyst 10/12/2009 06/05/2015 documented as of this encounter (statuses as of 10/17/2021) [facility]2018 History of Past illness Narrative* Problem Noted Date Resolved Date Centrilobular emphysema 07/24/2017 09/15/19 20 SUMMARY 12/12/2009 09/15/2019 Overview: 64 y/o with hx CABG 06/16/06 (CLARKE to LAD, SVG to RCA, SVG to OM), HTN, COPD, TIA, active smoker admitted as transfer from OSH following left heart cath done that suggested that her 2 vein grafts are down and the CLARKE is patent. She was getting pre-operative workup prior to surgery for a vocal cord polyp surgery. She is transferred for consideration of PCI vs redo CABG. Unfortunately, the [facility] disk does not open on our viewer. She is completely sx free. Sebaceous cyst 10/12/2009 06/05/2015 documented as of this encounter (statuses as of 10/18/2021) [facility] History of Past illness Narrative* Problem Noted Date Resolved Date Centrilobular emphysema 07/24/2017 09/15/19 20 SUMMARY 12/12/2009 09/15/2019 Overview: 64 y/o with hx CABG 06/16/06 (CLARKE to LAD, SVG to RCA, SVG to OM), HTN, COPD, TIA, active smoker admitted as transfer from OSH following left heart cath done that suggested that her 2 vein grafts are down and the CLARKE is patent. She was getting pre-operative workup prior to surgery for a vocal cord polyp surgery. She is transferred for consideration of PCI vs redo CABG. Unfortunately, the [facility] disk does not open on our viewer. She is completely sx free. Sebaceous cyst 10/12/2009 06/05/2015 documented as of this encounter (statuses as of 10/18/2021) [facility] History of Past illness Narrative* Problem Noted Date Resolved Date Centrilobular emphysema 07/24/2017 09/15/19 20 SUMMARY 12/12/2009 09/15/2019 Overview: 64 y/o with hx CABG 06/16/06 (CLARKE to LAD, SVG to RCA, SVG to OM), HTN, COPD, TIA, active smoker admitted as transfer from OSH following left heart cath done that suggested that her 2 vein grafts are down and the CLARKE is patent. She was getting pre-operative workup prior to surgery for a vocal cord polyp surgery. She is transferred for consideration of PCI vs redo CABG. Unfortunately, the [facility] disk does not open on our viewer. She is completely sx free. Sebaceous cyst 10/12/2009 06/05/2015 documented as of this encounter (statuses as of 10/22/2021) [facility] History of Past illness Narrative* Problem Noted Date Resolved Date Centrilobular emphysema 07/24/2017 09/15/19 20 SUMMARY 12/12/2009 09/15/2019 Overview: 64 y/o with hx CABG 06/16/06 (CLARKE to LAD, SVG to RCA, SVG to OM), HTN, COPD, TIA, active smoker admitted as transfer from OSH following left heart cath done that suggested that her 2 vein grafts are down and the CLARKE is patent. She was getting pre-operative workup prior to surgery for a vocal cord polyp surgery. She is transferred for consideration of PCI vs redo CABG. Unfortunately, the [facility] disk does not open on our viewer. She is completely sx free. Sebaceous cyst 10/12/2009 06/05/2015 documented as of this encounter (statuses as of 10/22/2021) [facility] History of Past illness Narrative* Problem Noted Date Resolved Date Centrilobular emphysema 07/24/2017 09/15/19 20 SUMMARY 12/12/2009 09/15/2019 Overview: 64 y/o with hx CABG 06/16/06 (CLARKE to LAD, SVG to RCA, SVG to OM), HTN, COPD, TIA, active smoker admitted as transfer from OSH following left heart cath done that suggested that her 2 vein grafts are down and the CLARKE is patent. She was getting pre-operative workup prior to surgery for a vocal cord polyp surgery. She is transferred for consideration of PCI vs redo CABG. Unfortunately, the [facility] disk does not open on our viewer. She is completely sx free. Sebaceous cyst 10/12/2009 06/05/2015 documented as of this encounter (statuses as of 10/22/2021) [facility] History of Past illness Narrative* Problem Noted Date Resolved Date Centrilobular emphysema 07/24/2017 09/15/19 20 SUMMARY 12/12/2009 09/15/2019 Overview: 64 y/o with hx CABG 06/16/06 (CLARKE to LAD, SVG to RCA, SVG to OM), HTN, COPD, TIA, active smoker admitted as transfer from OSH following left heart cath done that suggested that her 2 vein grafts are down and the CLARKE is patent. She was getting pre-operative workup prior to surgery for a vocal cord polyp surgery. She is transferred for consideration of PCI vs redo CABG. Unfortunately, the [facility] disk does not open on our viewer. She is completely sx free. Sebaceous cyst 10/12/2009 06/05/2015 documented as of this encounter (statuses as of 10/22/2021) [facility] History of Past illness Narrative* Problem Noted Date Resolved Date Centrilobular emphysema 07/24/2017 09/15/19 20 SUMMARY 12/12/2009 09/15/2019 Overview: 64 y/o with hx CABG 06/16/06 (CLARKE to LAD, SVG to RCA, SVG to OM), HTN, COPD, TIA, active smoker admitted as transfer from OSH following left heart cath done that suggested that her 2 vein grafts are down and the CLARKE is patent. She was getting pre-operative workup prior to surgery for a vocal cord polyp surgery. She is transferred for consideration of PCI vs redo CABG. Unfortunately, the [facility] disk does not open on our viewer. She is completely sx free. Sebaceous cyst 10/12/2009 06/05/2015 documented as of this encounter (statuses as of 10/23/2021) [facility] History of Past illness Narrative* Problem Noted Date Resolved Date Centrilobular emphysema 07/24/2017 09/15/19 20 SUMMARY 12/12/2009 09/15/2019 Overview: 64 y/o with hx CABG 06/16/06 (CLARKE to LAD, SVG to RCA, SVG to OM), HTN, COPD, TIA, active smoker admitted as transfer from OSH following left heart cath done that suggested that her 2 vein grafts are down and the CLARKE is patent. She was getting pre-operative workup prior to surgery for a vocal cord polyp surgery. She is transferred for consideration of PCI vs redo CABG. Unfortunately, the [facility] disk does not open on our viewer. She is completely sx free. Sebaceous cyst 10/12/2009 06/05/2015 documented as of this encounter (statuses as of 10/24/2021) [facility] History of Past illness Narrative* Problem Noted Date Resolved Date Centrilobular emphysema 07/24/2017 09/15/19 20 SUMMARY 12/12/2009 09/15/2019 Overview: 64 y/o with hx CABG 06/16/06 (CLARKE to LAD, SVG to RCA, SVG to OM), HTN, COPD, TIA, active smoker admitted as transfer from OSH following left heart cath done that suggested that her 2 vein grafts are down and the CLARKE is patent. She was getting pre-operative workup prior to surgery for a vocal cord polyp surgery. She is transferred for consideration of PCI vs redo CABG. Unfortunately, the [facility] disk does not open on our viewer. She is completely sx free. Sebaceous cyst 10/12/2009 06/05/2015 documented as of this encounter (statuses as of 10/24/2021) [facility] History of Past illness Narrative* Problem Noted Date Resolved Date Centrilobular emphysema 07/24/2017 09/15/19 20 SUMMARY 12/12/2009 09/15/2019 Overview: 64 y/o with hx CABG 06/16/06 (CLARKE to LAD, SVG to RCA, SVG to OM), HTN, COPD, TIA, active smoker admitted as transfer from OSH following left heart cath done that suggested that her 2 vein grafts are down and the CLARKE is patent. She was getting pre-operative workup prior to surgery for a vocal cord polyp surgery. She is transferred for consideration of PCI vs redo CABG. Unfortunately, the [facility] disk does not open on our viewer. She is completely sx free. Sebaceous cyst 10/12/2009 06/05/2015 documented as of this encounter (statuses as of 10/25/2021) [facility] History of Past illness Narrative* Problem Noted Date Resolved Date Centrilobular emphysema 07/24/2017 09/15/19 20 SUMMARY 12/12/2009 09/15/2019 Overview: 64 y/o with hx CABG 06/16/06 (CLARKE to LAD, SVG to RCA, SVG to OM), HTN, COPD, TIA, active smoker admitted as transfer from OSH following left heart cath done that suggested that her 2 vein grafts are down and the CLARKE is patent. She was getting pre-operative workup prior to surgery for a vocal cord polyp surgery. She is transferred for consideration of PCI vs redo CABG. Unfortunately, the [facility] disk does not open on our viewer. She is completely sx free. Sebaceous cyst 10/12/2009 06/05/2015 documented as of this encounter (statuses as of 10/25/2021) [facility] History of Past illness Narrative* Problem Noted Date Resolved Date Centrilobular emphysema 07/24/2017 09/15/19 20 SUMMARY 12/12/2009 09/15/2019 Overview: 64 y/o with hx CABG 06/16/06 (CLARKE to LAD, SVG to RCA, SVG to OM), HTN, COPD, TIA, active smoker admitted as transfer from OSH following left heart cath done that suggested that her 2 vein grafts are down and the CLARKE is patent. She was getting pre-operative workup prior to surgery for a vocal cord polyp surgery. She is transferred for consideration of PCI vs redo CABG. Unfortunately, the [facility] disk does not open on our viewer. She is completely sx free. Sebaceous cyst 10/12/2009 06/05/2015 documented as of this encounter (statuses as of 10/27/2021) [facility] History of Past illness Narrative* Problem Noted Date Resolved Date Centrilobular emphysema 07/24/2017 09/15/19 20 SUMMARY 12/12/2009 09/15/2019 Overview: 64 y/o with hx CABG 06/16/06 (CLARKE to LAD, SVG to RCA, SVG to OM), HTN, COPD, TIA, active smoker admitted as transfer from OSH following left heart cath done that suggested that her 2 vein grafts are down and the CLARKE is patent. She was getting pre-operative workup prior to surgery for a vocal cord polyp surgery. She is transferred for consideration of PCI vs redo CABG. Unfortunately, the [facility] disk does not open on our viewer. She is completely sx free. Sebaceous cyst 10/12/2009 06/05/2015 documented as of this encounter (statuses as of 10/28/2021) [facility] History of Past illness Narrative* Problem Noted Date Resolved Date Centrilobular emphysema 07/24/2017 09/15/19 20 SUMMARY 12/12/2009 09/15/2019 Overview: 64 y/o with hx CABG 06/16/06 (CLARKE to LAD, SVG to RCA, SVG to OM), HTN, COPD, TIA, active smoker admitted as transfer from OSH following left heart cath done that suggested that her 2 vein grafts are down and the CLARKE is patent. She was getting pre-operative workup prior to surgery for a vocal cord polyp surgery. She is transferred for consideration of PCI vs redo CABG. Unfortunately, the [facility] disk does not open on our viewer. She is completely sx free. Sebaceous cyst 10/12/2009 06/05/2015 documented as of this encounter (statuses as of 10/28/2021) [facility] History of Past illness Narrative* Problem Noted Date Resolved Date Centrilobular emphysema 07/24/2017 09/15/19 20 SUMMARY 12/12/2009 09/15/2019 Overview: 64 y/o with hx CABG 06/16/06 (CLARKE to LAD, SVG to RCA, SVG to OM), HTN, COPD, TIA, active smoker admitted as transfer from OSH following left heart cath done that suggested that her 2 vein grafts are down and the CLARKE is patent. She was getting pre-operative workup prior to surgery for a vocal cord polyp surgery. She is transferred for consideration of PCI vs redo CABG. Unfortunately, the [facility] disk does not open on our viewer. She is completely sx free. Sebaceous cyst 10/12/2009 06/05/2015 documented as of this encounter (statuses as of 10/28/2021) [facility] History of Past illness Narrative* Problem Noted Date Resolved Date Centrilobular emphysema 07/24/2017 09/15/19 20 SUMMARY 12/12/2009 09/15/2019 Overview: 64 y/o with hx CABG 06/16/06 (CLARKE to LAD, SVG to RCA, SVG to OM), HTN, COPD, TIA, active smoker admitted as transfer from OSH following left heart cath done that suggested that her 2 vein grafts are down and the CLARKE is patent. She was getting pre-operative workup prior to surgery for a vocal cord polyp surgery. She is transferred for consideration of PCI vs redo CABG. Unfortunately, the [facility] disk does not open on our viewer. She is completely sx free. Sebaceous cyst 10/12/2009 06/05/2015 documented as of this encounter (statuses as of 10/29/2021) [facility] History of Past illness Narrative* Problem Noted Date Resolved Date Centrilobular emphysema 07/24/2017 09/15/19 20 SUMMARY 12/12/2009 09/15/2019 Overview: 64 y/o with hx CABG 06/16/06 (CLARKE to LAD, SVG to RCA, SVG to OM), HTN, COPD, TIA, active smoker admitted as transfer from OSH following left heart cath done that suggested that her 2 vein grafts are down and the CLARKE is patent. She was getting pre-operative workup prior to surgery for a vocal cord polyp surgery. She is transferred for consideration of PCI vs redo CABG. Unfortunately, the [facility] disk does not open on our viewer. She is completely sx free. Sebaceous cyst 10/12/2009 06/05/2015 documented as of this encounter (statuses as of 10/29/2021) [facility] History of Past illness Narrative* Problem Noted Date Resolved Date Centrilobular emphysema 07/24/2017 09/15/19 20 SUMMARY 12/12/2009 09/15/2019 Overview: 64 y/o with hx CABG 06/16/06 (CLARKE to LAD, SVG to RCA, SVG to OM), HTN, COPD, TIA, active smoker admitted as transfer from OSH following left heart cath done that suggested that her 2 vein grafts are down and the CLARKE is patent. She was getting pre-operative workup prior to surgery for a vocal cord polyp surgery. She is transferred for consideration of PCI vs redo CABG. Unfortunately, the [facility] disk does not open on our viewer. She is completely sx free. Sebaceous cyst 10/12/2009 06/05/2015 documented as of this encounter (statuses as of 10/29/2021) [facility] History of Past illness Narrative* Problem Noted Date Resolved Date Centrilobular emphysema 07/24/2017 09/15/19 20 SUMMARY 12/12/2009 09/15/2019 Overview: 64 y/o with hx CABG 06/16/06 (CLARKE to LAD, SVG to RCA, SVG to OM), HTN, COPD, TIA, active smoker admitted as transfer from OSH following left heart cath done that suggested that her 2 vein grafts are down and the CLARKE is patent. She was getting pre-operative workup prior to surgery for a vocal cord polyp surgery. She is transferred for consideration of PCI vs redo CABG. Unfortunately, the [facility] disk does not open on our viewer. She is completely sx free. Sebaceous cyst 10/12/2009 06/05/2015 documented as of this encounter (statuses as of 10/31/2021) [facility] History of Past illness Narrative* Problem Noted Date Resolved Date Centrilobular emphysema 07/24/2017 09/15/19 20 SUMMARY 12/12/2009 09/15/2019 Overview: 64 y/o with hx CABG 06/16/06 (CLARKE to LAD, SVG to RCA, SVG to OM), HTN, COPD, TIA, active smoker admitted as transfer from OSH following left heart cath done that suggested that her 2 vein grafts are down and the CLARKE is patent. She was getting pre-operative workup prior to surgery for a vocal cord polyp surgery. She is transferred for consideration of PCI vs redo CABG. Unfortunately, the [facility] disk does not open on our viewer. She is completely sx free. Sebaceous cyst 10/12/2009 06/05/2015 documented as of this encounter (statuses as of 11/01/2021) [facility] History of Past illness Narrative* Problem Noted Date Resolved Date Centrilobular emphysema 07/24/2017 09/15/19 20 SUMMARY 12/12/2009 09/15/2019 Overview: 64 y/o with hx CABG 06/16/06 (CLARKE to LAD, SVG to RCA, SVG to OM), HTN, COPD, TIA, active smoker admitted as transfer from OSH following left heart cath done that suggested that her 2 vein grafts are down and the CLARKE is patent. She was getting pre-operative workup prior to surgery for a vocal cord polyp surgery. She is transferred for consideration of PCI vs redo CABG. Unfortunately, the [facility] disk does not open on our viewer. She is completely sx free. Sebaceous cyst 10/12/2009 06/05/2015 documented as of this encounter (statuses as of 11/01/2021) [facility] History of Past illness Narrative* Problem Noted Date Resolved Date Centrilobular emphysema 07/24/2017 09/15/19 20 SUMMARY 12/12/2009 09/15/2019 Overview: 64 y/o with hx CABG 06/16/06 (CLARKE to LAD, SVG to RCA, SVG to OM), HTN, COPD, TIA, active smoker admitted as transfer from OSH following left heart cath done that suggested that her 2 vein grafts are down and the CLARKE is patent. She was getting pre-operative workup prior to surgery for a vocal cord polyp surgery. She is transferred for consideration of PCI vs redo CABG. Unfortunately, the [facility] disk does not open on our viewer. She is completely sx free. Sebaceous cyst 10/12/2009 06/05/2015 documented as of this encounter (statuses as of 11/04/2021) [facility] History of Past illness Narrative* Problem Noted Date Resolved Date Centrilobular emphysema 07/24/2017 09/15/19 20 SUMMARY 12/12/2009 09/15/2019 Overview: 64 y/o with hx CABG 06/16/06 (CLARKE to LAD, SVG to RCA, SVG to OM), HTN, COPD, TIA, active smoker admitted as transfer from OSH following left heart cath done that suggested that her 2 vein grafts are down and the CLARKE is patent. She was getting pre-operative workup prior to surgery for a vocal cord polyp surgery. She is transferred for consideration of PCI vs redo CABG. Unfortunately, the [facility] disk does not open on our viewer. She is completely sx free. Sebaceous cyst 10/12/2009 06/05/2015 documented as of this encounter (statuses as of 11/04/2021) [facility] History of Past illness Narrative* Problem Noted Date Resolved Date Centrilobular emphysema 07/24/2017 09/15/19 20 SUMMARY 12/12/2009 09/15/2019 Overview: 64 y/o with hx CABG 06/16/06 (CLARKE to LAD, SVG to RCA, SVG to OM), HTN, COPD, TIA, active smoker admitted as transfer from OSH following left heart cath done that suggested that her 2 vein grafts are down and the CLARKE is patent. She was getting pre-operative workup prior to surgery for a vocal cord polyp surgery. She is transferred for consideration of PCI vs redo CABG. Unfortunately, the [facility] disk does not open on our viewer. She is completely sx free. Sebaceous cyst 10/12/2009 06/05/2015 documented as of this encounter (statuses as of 11/06/2021) [facility] History of Past illness Narrative* Problem Noted Date Resolved Date Centrilobular emphysema 07/24/2017 09/15/19 20 SUMMARY 12/12/2009 09/15/2019 Overview: 64 y/o with hx CABG 06/16/06 (CLARKE to LAD, SVG to RCA, SVG to OM), HTN, COPD, TIA, active smoker admitted as transfer from OSH following left heart cath done that suggested that her 2 vein grafts are down and the CLARKE is patent. She was getting pre-operative workup prior to surgery for a vocal cord polyp surgery. She is transferred for consideration of PCI vs redo CABG. Unfortunately, the [facility] disk does not open on our viewer. She is completely sx free. Sebaceous cyst 10/12/2009 06/05/2015 documented as of this encounter (statuses as of 11/07/2021) [facility] History of Past illness Narrative* Problem Noted Date Resolved Date Centrilobular emphysema 07/24/2017 09/15/19 20 SUMMARY 12/12/2009 09/15/2019 Overview: 64 y/o with hx CABG 06/16/06 (CLARKE to LAD, SVG to RCA, SVG to OM), HTN, COPD, TIA, active smoker admitted as transfer from OSH following left heart cath done that suggested that her 2 vein grafts are down and the CLARKE is patent. She was getting pre-operative workup prior to surgery for a vocal cord polyp surgery. She is transferred for consideration of PCI vs redo CABG. Unfortunately, the [facility] disk does not open on our viewer. She is completely sx free. Sebaceous cyst 10/12/2009 06/05/2015 documented as of this encounter (statuses as of 11/08/2021) [facility] History of Past illness Narrative* Problem Noted Date Resolved Date Centrilobular emphysema 07/24/2017 09/15/19 20 SUMMARY 12/12/2009 09/15/2019 Overview: 64 y/o with hx CABG 06/16/06 (CLARKE to LAD, SVG to RCA, SVG to OM), HTN, COPD, TIA, active smoker admitted as transfer from OSH following left heart cath done that suggested that her 2 vein grafts are down and the CLARKE is patent. She was getting pre-operative workup prior to surgery for a vocal cord polyp surgery. She is transferred for consideration of PCI vs redo CABG. Unfortunately, the [facility] disk does not open on our viewer. She is completely sx free. Sebaceous cyst 10/12/2009 06/05/2015 documented as of this encounter (statuses as of 11/11/2021) [facility] History of Past illness Narrative* Problem Noted Date Resolved Date Centrilobular emphysema 07/24/2017 09/15/19 20 SUMMARY 12/12/2009 09/15/2019 Overview: 64 y/o with hx CABG 06/16/06 (CLARKE to LAD, SVG to RCA, SVG to OM), HTN, COPD, TIA, active smoker admitted as transfer from OSH following left heart cath done that suggested that her 2 vein grafts are down and the CLARKE is patent. She was getting pre-operative workup prior to surgery for a vocal cord polyp surgery. She is transferred for consideration of PCI vs redo CABG. Unfortunately, the [facility] disk does not open on our viewer. She is completely sx free. Sebaceous cyst 10/12/2009 06/05/2015 documented as of this encounter (statuses as of 11/15/2021) [facility] History of Past illness Narrative* Problem Noted Date Resolved Date Centrilobular emphysema 07/24/2017 09/15/19 20 SUMMARY 12/12/2009 09/15/2019 Overview: 64 y/o with hx CABG 06/16/06 (CLARKE to LAD, SVG to RCA, SVG to OM), HTN, COPD, TIA, active smoker admitted as transfer from OSH following left heart cath done that suggested that her 2 vein grafts are down and the CLARKE is patent. She was getting pre-operative workup prior to surgery for a vocal cord polyp surgery. She is transferred for consideration of PCI vs redo CABG. Unfortunately, the [facility] disk does not open on our viewer. She is completely sx free. Sebaceous cyst 10/12/2009 06/05/2015 documented as of this encounter (statuses as of 11/18/2021) [facility] History of Past illness Narrative* Problem Noted Date Resolved Date Centrilobular emphysema 07/24/2017 09/15/19 20 SUMMARY 12/12/2009 09/15/2019 Overview: 64 y/o with hx CABG 06/16/06 (CLARKE to LAD, SVG to RCA, SVG to OM), HTN, COPD, TIA, active smoker admitted as transfer from OSH following left heart cath done that suggested that her 2 vein grafts are down and the CLARKE is patent. She was getting pre-operative workup prior to surgery for a vocal cord polyp surgery. She is transferred for consideration of PCI vs redo CABG. Unfortunately, the [facility] disk does not open on our viewer. She is completely sx free. Sebaceous cyst 10/12/2009 06/05/2015 documented as of this encounter (statuses as of 11/18/2021) [facility] History of Past illness Narrative* Problem Noted Date Resolved Date Centrilobular emphysema 07/24/2017 09/15/19 20 SUMMARY 12/12/2009 09/15/2019 Overview: 64 y/o with hx CABG 06/16/06 (CLARKE to LAD, SVG to RCA, SVG to OM), HTN, COPD, TIA, active smoker admitted as transfer from OSH following left heart cath done that suggested that her 2 vein grafts are down and the CLARKE is patent. She was getting pre-operative workup prior to surgery for a vocal cord polyp surgery. She is transferred for consideration of PCI vs redo CABG. Unfortunately, the [facility] disk does not open on our viewer. She is completely sx free. Sebaceous cyst 10/12/2009 06/05/2015 documented as of this encounter (statuses as of 11/18/2021) [facility] History of Past illness Narrative* Problem Noted Date Resolved Date Centrilobular emphysema 07/24/2017 09/15/19 20 SUMMARY 12/12/2009 09/15/2019 Overview: 64 y/o with hx CABG 06/16/06 (CLARKE to LAD, SVG to RCA, SVG to OM), HTN, COPD, TIA, active smoker admitted as transfer from OSH following left heart cath done that suggested that her 2 vein grafts are down and the CLARKE is patent. She was getting pre-operative workup prior to surgery for a vocal cord polyp surgery. She is transferred for consideration of PCI vs redo CABG. Unfortunately, the [facility] disk does not open on our viewer. She is completely sx free. Sebaceous cyst 10/12/2009 06/05/2015 documented as of this encounter (statuses as of 11/19/2021) [facility]2018 History of Past illness Narrative* Problem Noted Date Resolved Date Centrilobular emphysema 07/24/2017 09/15/19 20 SUMMARY 12/12/2009 09/15/2019 Overview: 64 y/o with hx CABG 06/16/06 (CLARKE to LAD, SVG to RCA, SVG to OM), HTN, COPD, TIA, active smoker admitted as transfer from OSH following left heart cath done that suggested that her 2 vein grafts are down and the CLARKE is patent. She was getting pre-operative workup prior to surgery for a vocal cord polyp surgery. She is transferred for consideration of PCI vs redo CABG. Unfortunately, the [facility] disk does not open on our viewer. She is completely sx free. Sebaceous cyst 10/12/2009 06/05/2015 documented as of this encounter (statuses as of 11/19/2021) [facility] History of Past illness Narrative* Problem Noted Date Resolved Date Centrilobular emphysema 07/24/2017 09/15/19 20 SUMMARY 12/12/2009 09/15/2019 Overview: 64 y/o with hx CABG 06/16/06 (CLARKE to LAD, SVG to RCA, SVG to OM), HTN, COPD, TIA, active smoker admitted as transfer from OSH following left heart cath done that suggested that her 2 vein grafts are down and the CLARKE is patent. She was getting pre-operative workup prior to surgery for a vocal cord polyp surgery. She is transferred for consideration of PCI vs redo CABG. Unfortunately, the [facility] disk does not open on our viewer. She is completely sx free. Sebaceous cyst 10/12/2009 06/05/2015 documented as of this encounter (statuses as of 11/21/2021) [facility] History of Past illness Narrative* Problem Noted Date Resolved Date Centrilobular emphysema 07/24/2017 09/15/19 20 SUMMARY 12/12/2009 09/15/2019 Overview: 64 y/o with hx CABG 06/16/06 (CLARKE to LAD, SVG to RCA, SVG to OM), HTN, COPD, TIA, active smoker admitted as transfer from OSH following left heart cath done that suggested that her 2 vein grafts are down and the CLARKE is patent. She was getting pre-operative workup prior to surgery for a vocal cord polyp surgery. She is transferred for consideration of PCI vs redo CABG. Unfortunately, the [facility] disk does not open on our viewer. She is completely sx free. Sebaceous cyst 10/12/2009 06/05/2015 documented as of this encounter (statuses as of 11/21/2021) [facility] History of Past illness Narrative* Problem Noted Date Resolved Date Centrilobular emphysema 07/24/2017 09/15/19 20 SUMMARY 12/12/2009 09/15/2019 Overview: 64 y/o with hx CABG 06/16/06 (CLARKE to LAD, SVG to RCA, SVG to OM), HTN, COPD, TIA, active smoker admitted as transfer from OSH following left heart cath done that suggested that her 2 vein grafts are down and the CLARKE is patent. She was getting pre-operative workup prior to surgery for a vocal cord polyp surgery. She is transferred for consideration of PCI vs redo CABG. Unfortunately, the [facility] disk does not open on our viewer. She is completely sx free. Sebaceous cyst 10/12/2009 06/05/2015 documented as of this encounter (statuses as of 11/22/2021) [facility] History of Past illness Narrative* Problem Noted Date Resolved Date Centrilobular emphysema 07/24/2017 09/15/19 20 SUMMARY 12/12/2009 09/15/2019 Overview: 64 y/o with hx CABG 06/16/06 (CLARKE to LAD, SVG to RCA, SVG to OM), HTN, COPD, TIA, active smoker admitted as transfer from OSH following left heart cath done that suggested that her 2 vein grafts are down and the CLARKE is patent. She was getting pre-operative workup prior to surgery for a vocal cord polyp surgery. She is transferred for consideration of PCI vs redo CABG. Unfortunately, the [facility] disk does not open on our viewer. She is completely sx free. Sebaceous cyst 10/12/2009 06/05/2015 documented as of this encounter (statuses as of 11/23/2021) [facility] History of Past illness Narrative* Problem Noted Date Resolved Date Centrilobular emphysema 07/24/2017 09/15/19 20 SUMMARY 12/12/2009 09/15/2019 Overview: 64 y/o with hx CABG 06/16/06 (CLARKE to LAD, SVG to RCA, SVG to OM), HTN, COPD, TIA, active smoker admitted as transfer from OSH following left heart cath done that suggested that her 2 vein grafts are down and the CLARKE is patent. She was getting pre-operative workup prior to surgery for a vocal cord polyp surgery. She is transferred for consideration of PCI vs redo CABG. Unfortunately, the [facility] disk does not open on our viewer. She is completely sx free. Sebaceous cyst 10/12/2009 06/05/2015 documented as of this encounter (statuses as of 11/25/2021) [facility] History of Past illness Narrative* Problem Noted Date Resolved Date Centrilobular emphysema 07/24/2017 09/15/19 20 SUMMARY 12/12/2009 09/15/2019 Overview: 64 y/o with hx CABG 06/16/06 (CLARKE to LAD, SVG to RCA, SVG to OM), HTN, COPD, TIA, active smoker admitted as transfer from OSH following left heart cath done that suggested that her 2 vein grafts are down and the CLARKE is patent. She was getting pre-operative workup prior to surgery for a vocal cord polyp surgery. She is transferred for consideration of PCI vs redo CABG. Unfortunately, the [facility] disk does not open on our viewer. She is completely sx free. Sebaceous cyst 10/12/2009 06/05/2015 documented as of this encounter (statuses as of 11/25/2021) [facility] History of Past illness Narrative* Problem Noted Date Resolved Date Centrilobular emphysema 07/24/2017 09/15/19 20 SUMMARY 12/12/2009 09/15/2019 Overview: 64 y/o with hx CABG 06/16/06 (CLARKE to LAD, SVG to RCA, SVG to OM), HTN, COPD, TIA, active smoker admitted as transfer from OSH following left heart cath done that suggested that her 2 vein grafts are down and the CLARKE is patent. She was getting pre-operative workup prior to surgery for a vocal cord polyp surgery. She is transferred for consideration of PCI vs redo CABG. Unfortunately, the [facility] disk does not open on our viewer. She is completely sx free. Sebaceous cyst 10/12/2009 06/05/2015 documented as of this encounter (statuses as of 11/25/2021) [facility] History of Past illness Narrative* Problem Noted Date Resolved Date Centrilobular emphysema 07/24/2017 09/15/19 20 SUMMARY 12/12/2009 09/15/2019 Overview: 64 y/o with hx CABG 06/16/06 (CLARKE to LAD, SVG to RCA, SVG to OM), HTN, COPD, TIA, active smoker admitted as transfer from OSH following left heart cath done that suggested that her 2 vein grafts are down and the CLARKE is patent. She was getting pre-operative workup prior to surgery for a vocal cord polyp surgery. She is transferred for consideration of PCI vs redo CABG. Unfortunately, the [facility] disk does not open on our viewer. She is completely sx free. Sebaceous cyst 10/12/2009 06/05/2015 documented as of this encounter (statuses as of 11/26/2021) [facility] History of Past illness Narrative* Problem Noted Date Resolved Date Centrilobular emphysema 07/24/2017 09/15/19 20 SUMMARY 12/12/2009 09/15/2019 Overview: 64 y/o with hx CABG 06/16/06 (CLARKE to LAD, SVG to RCA, SVG to OM), HTN, COPD, TIA, active smoker admitted as transfer from OSH following left heart cath done that suggested that her 2 vein grafts are down and the CLARKE is patent. She was getting pre-operative workup prior to surgery for a vocal cord polyp surgery. She is transferred for consideration of PCI vs redo CABG. Unfortunately, the [facility] disk does not open on our viewer. She is completely sx free. Sebaceous cyst 10/12/2009 06/05/2015 documented as of this encounter (statuses as of 11/26/2021) [facility] History of Past illness Narrative* Problem Noted Date Resolved Date Centrilobular emphysema 07/24/2017 09/15/19 20 SUMMARY 12/12/2009 09/15/2019 Overview: 64 y/o with hx CABG 06/16/06 (CLARKE to LAD, SVG to RCA, SVG to OM), HTN, COPD, TIA, active smoker admitted as transfer from OSH following left heart cath done that suggested that her 2 vein grafts are down and the CLARKE is patent. She was getting pre-operative workup prior to surgery for a vocal cord polyp surgery. She is transferred for consideration of PCI vs redo CABG. Unfortunately, the [facility] disk does not open on our viewer. She is completely sx free. Sebaceous cyst 10/12/2009 06/05/2015 documented as of this encounter (statuses as of 11/28/2021) [facility] History of Past illness Narrative* Problem Noted Date Resolved Date Centrilobular emphysema 07/24/2017 09/15/19 20 SUMMARY 12/12/2009 09/15/2019 Overview: 64 y/o with hx CABG 06/16/06 (CLARKE to LAD, SVG to RCA, SVG to OM), HTN, COPD, TIA, active smoker admitted as transfer from OSH following left heart cath done that suggested that her 2 vein grafts are down and the CLARKE is patent. She was getting pre-operative workup prior to surgery for a vocal cord polyp surgery. She is transferred for consideration of PCI vs redo CABG. Unfortunately, the [facility] disk does not open on our viewer. She is completely sx free. Sebaceous cyst 10/12/2009 06/05/2015 documented as of this encounter (statuses as of 11/29/2021) [facility] History of Past illness Narrative* Problem Noted Date Resolved Date Centrilobular emphysema 07/24/2017 09/15/19 20 SUMMARY 12/12/2009 09/15/2019 Overview: 64 y/o with hx CABG 06/16/06 (CLARKE to LAD, SVG to RCA, SVG to OM), HTN, COPD, TIA, active smoker admitted as transfer from OSH following left heart cath done that suggested that her 2 vein grafts are down and the CLARKE is patent. She was getting pre-operative workup prior to surgery for a vocal cord polyp surgery. She is transferred for consideration of PCI vs redo CABG. Unfortunately, the [facility] disk does not open on our viewer. She is completely sx free. Sebaceous cyst 10/12/2009 06/05/2015 documented as of this encounter (statuses as of 12/02/2021) [facility] History of Past illness Narrative* Problem Noted Date Resolved Date Centrilobular emphysema 07/24/2017 09/15/19 20 SUMMARY 12/12/2009 09/15/2019 Overview: 64 y/o with hx CABG 06/16/06 (CLARKE to LAD, SVG to RCA, SVG to OM), HTN, COPD, TIA, active smoker admitted as transfer from OSH following left heart cath done that suggested that her 2 vein grafts are down and the CLARKE is patent. She was getting pre-operative workup prior to surgery for a vocal cord polyp surgery. She is transferred for consideration of PCI vs redo CABG. Unfortunately, the [facility] disk does not open on our viewer. She is completely sx free. Sebaceous cyst 10/12/2009 06/05/2015 documented as of this encounter (statuses as of 12/03/2021) [facility] History of Past illness Narrative* Problem Noted Date Resolved Date Centrilobular emphysema 07/24/2017 09/15/19 20 SUMMARY 12/12/2009 09/15/2019 Overview: 64 y/o with hx CABG 06/16/06 (CLARKE to LAD, SVG to RCA, SVG to OM), HTN, COPD, TIA, active smoker admitted as transfer from OSH following left heart cath done that suggested that her 2 vein grafts are down and the CLARKE is patent. She was getting pre-operative workup prior to surgery for a vocal cord polyp surgery. She is transferred for consideration of PCI vs redo CABG. Unfortunately, the [facility] disk does not open on our viewer. She is completely sx free. Sebaceous cyst 10/12/2009 06/05/2015 documented as of this encounter (statuses as of 12/05/2021) [facility] History of Past illness Narrative* Problem Noted Date Resolved Date Centrilobular emphysema 07/24/2017 09/15/19 20 SUMMARY 12/12/2009 09/15/2019 Overview: 64 y/o with hx CABG 06/16/06 (CLARKE to LAD, SVG to RCA, SVG to OM), HTN, COPD, TIA, active smoker admitted as transfer from OSH following left heart cath done that suggested that her 2 vein grafts are down and the CLARKE is patent. She was getting pre-operative workup prior to surgery for a vocal cord polyp surgery. She is transferred for consideration of PCI vs redo CABG. Unfortunately, the [facility] disk does not open on our viewer. She is completely sx free. Sebaceous cyst 10/12/2009 06/05/2015 documented as of this encounter (statuses as of 12/05/2021) [facility] History of Past illness Narrative* Problem Noted Date Resolved Date Centrilobular emphysema 07/24/2017 09/15/19 20 SUMMARY 12/12/2009 09/15/2019 Overview: 64 y/o with hx CABG 06/16/06 (CLARKE to LAD, SVG to RCA, SVG to OM), HTN, COPD, TIA, active smoker admitted as transfer from OSH following left heart cath done that suggested that her 2 vein grafts are down and the CLARKE is patent. She was getting pre-operative workup prior to surgery for a vocal cord polyp surgery. She is transferred for consideration of PCI vs redo CABG. Unfortunately, the [facility] disk does not open on our viewer. She is completely sx free. Sebaceous cyst 10/12/2009 06/05/2015 documented as of this encounter (statuses as of 12/05/2021) [facility] History of Past illness Narrative* Problem Noted Date Resolved Date Centrilobular emphysema 07/24/2017 09/15/19 20 SUMMARY 12/12/2009 09/15/2019 Overview: 64 y/o with hx CABG 06/16/06 (CLARKE to LAD, SVG to RCA, SVG to OM), HTN, COPD, TIA, active smoker admitted as transfer from OSH following left heart cath done that suggested that her 2 vein grafts are down and the CLARKE is patent. She was getting pre-operative workup prior to surgery for a vocal cord polyp surgery. She is transferred for consideration of PCI vs redo CABG. Unfortunately, the [facility] disk does not open on our viewer. She is completely sx free. Sebaceous cyst 10/12/2009 06/05/2015 documented as of this encounter (statuses as of 12/10/2021) [facility] History of Past illness Narrative* Problem Noted Date Resolved Date Centrilobular emphysema 07/24/2017 09/15/19 20 SUMMARY 12/12/2009 09/15/2019 Overview: 64 y/o with hx CABG 06/16/06 (CLARKE to LAD, SVG to RCA, SVG to OM), HTN, COPD, TIA, active smoker admitted as transfer from OSH following left heart cath done that suggested that her 2 vein grafts are down and the CLARKE is patent. She was getting pre-operative workup prior to surgery for a vocal cord polyp surgery. She is transferred for consideration of PCI vs redo CABG. Unfortunately, the [facility] disk does not open on our viewer. She is completely sx free. Sebaceous cyst 10/12/2009 06/05/2015 documented as of this encounter (statuses as of 12/10/2021) [facility] History of Past illness Narrative* Problem Noted Date Resolved Date Centrilobular emphysema 07/24/2017 09/15/19 20 SUMMARY 12/12/2009 09/15/2019 Overview: 64 y/o with hx CABG 06/16/06 (CLARKE to LAD, SVG to RCA, SVG to OM), HTN, COPD, TIA, active smoker admitted as transfer from OSH following left heart cath done that suggested that her 2 vein grafts are down and the CLARKE is patent. She was getting pre-operative workup prior to surgery for a vocal cord polyp surgery. She is transferred for consideration of PCI vs redo CABG. Unfortunately, the [facility] disk does not open on our viewer. She is completely sx free. Sebaceous cyst 10/12/2009 06/05/2015 documented as of this encounter (statuses as of 12/10/2021) [facility] History of Past illness Narrative* Problem Noted Date Resolved Date Centrilobular emphysema 07/24/2017 09/15/19 20 SUMMARY 12/12/2009 09/15/2019 Overview: 64 y/o with hx CABG 06/16/06 (CLARKE to LAD, SVG to RCA, SVG to OM), HTN, COPD, TIA, active smoker admitted as transfer from OSH following left heart cath done that suggested that her 2 vein grafts are down and the CLARKE is patent. She was getting pre-operative workup prior to surgery for a vocal cord polyp surgery. She is transferred for consideration of PCI vs redo CABG. Unfortunately, the [facility] disk does not open on our viewer. She is completely sx free. Sebaceous cyst 10/12/2009 06/05/2015 documented as of this encounter (statuses as of 12/12/2021) [facility] History of Past illness Narrative* Problem Noted Date Resolved Date Centrilobular emphysema 07/24/2017 09/15/19 20 SUMMARY 12/12/2009 09/15/2019 Overview: 64 y/o with hx CABG 06/16/06 (CLARKE to LAD, SVG to RCA, SVG to OM), HTN, COPD, TIA, active smoker admitted as transfer from OSH following left heart cath done that suggested that her 2 vein grafts are down and the CLARKE is patent. She was getting pre-operative workup prior to surgery for a vocal cord polyp surgery. She is transferred for consideration of PCI vs redo CABG. Unfortunately, the [facility] disk does not open on our viewer. She is completely sx free. Sebaceous cyst 10/12/2009 06/05/2015 documented as of this encounter (statuses as of 12/13/2021) [facility] History of Past illness Narrative* Problem Noted Date Resolved Date Centrilobular emphysema 07/24/2017 09/15/19 20 SUMMARY 12/12/2009 09/15/2019 Overview: 64 y/o with hx CABG 06/16/06 (CLARKE to LAD, SVG to RCA, SVG to OM), HTN, COPD, TIA, active smoker admitted as transfer from OSH following left heart cath done that suggested that her 2 vein grafts are down and the CLARKE is patent. She was getting pre-operative workup prior to surgery for a vocal cord polyp surgery. She is transferred for consideration of PCI vs redo CABG. Unfortunately, the [facility] disk does not open on our viewer. She is completely sx free. Sebaceous cyst 10/12/2009 06/05/2015 documented as of this encounter (statuses as of 12/13/2021) [facility] History of Past illness Narrative* Problem Noted Date Resolved Date Centrilobular emphysema 07/24/2017 09/15/19 20 SUMMARY 12/12/2009 09/15/2019 Overview: 64 y/o with hx CABG 06/16/06 (CLARKE to LAD, SVG to RCA, SVG to OM), HTN, COPD, TIA, active smoker admitted as transfer from OSH following left heart cath done that suggested that her 2 vein grafts are down and the CLARKE is patent. She was getting pre-operative workup prior to surgery for a vocal cord polyp surgery. She is transferred for consideration of PCI vs redo CABG. Unfortunately, the [facility] disk does not open on our viewer. She is completely sx free. Sebaceous cyst 10/12/2009 06/05/2015 documented as of this encounter (statuses as of 12/18/2021) [facility] History of Past illness Narrative* Problem Noted Date Resolved Date Centrilobular emphysema 07/24/2017 09/15/19 20 SUMMARY 12/12/2009 09/15/2019 Overview: 64 y/o with hx CABG 06/16/06 (CLARKE to LAD, SVG to RCA, SVG to OM), HTN, COPD, TIA, active smoker admitted as transfer from OSH following left heart cath done that suggested that her 2 vein grafts are down and the CLARKE is patent. She was getting pre-operative workup prior to surgery for a vocal cord polyp surgery. She is transferred for consideration of PCI vs redo CABG. Unfortunately, the [facility] disk does not open on our viewer. She is completely sx free. Sebaceous cyst 10/12/2009 06/05/2015 documented as of this encounter (statuses as of 12/24/2021) [facility] History of Past illness Narrative* Problem Noted Date Resolved Date Centrilobular emphysema 07/24/2017 09/15/19 20 SUMMARY 12/12/2009 09/15/2019 Overview: 64 y/o with hx CABG 06/16/06 (CLARKE to LAD, SVG to RCA, SVG to OM), HTN, COPD, TIA, active smoker admitted as transfer from OSH following left heart cath done that suggested that her 2 vein grafts are down and the CLARKE is patent. She was getting pre-operative workup prior to surgery for a vocal cord polyp surgery. She is transferred for consideration of PCI vs redo CABG. Unfortunately, the [facility] disk does not open on our viewer. She is completely sx free. Sebaceous cyst 10/12/2009 06/05/2015 documented as of this encounter (statuses as of 12/24/2021) [facility] History of Past illness Narrative* Problem Noted Date Resolved Date Centrilobular emphysema 07/24/2017 09/15/19 20 SUMMARY 12/12/2009 09/15/2019 Overview: 64 y/o with hx CABG 06/16/06 (CLARKE to LAD, SVG to RCA, SVG to OM), HTN, COPD, TIA, active smoker admitted as transfer from OSH following left heart cath done that suggested that her 2 vein grafts are down and the CLARKE is patent. She was getting pre-operative workup prior to surgery for a vocal cord polyp surgery. She is transferred for consideration of PCI vs redo CABG. Unfortunately, the [facility] disk does not open on our viewer. She is completely sx free. Sebaceous cyst 10/12/2009 06/05/2015 documented as of this encounter (statuses as of 12/25/2021) [facility] History of Past illness Narrative* Problem Noted Date Resolved Date Centrilobular emphysema 07/24/2017 09/15/19 20 SUMMARY 12/12/2009 09/15/2019 Overview: 64 y/o with hx CABG 06/16/06 (CLARKE to LAD, SVG to RCA, SVG to OM), HTN, COPD, TIA, active smoker admitted as transfer from OSH following left heart cath done that suggested that her 2 vein grafts are down and the CLARKE is patent. She was getting pre-operative workup prior to surgery for a vocal cord polyp surgery. She is transferred for consideration of PCI vs redo CABG. Unfortunately, the [facility] disk does not open on our viewer. She is completely sx free. Sebaceous cyst 10/12/2009 06/05/2015 documented as of this encounter (statuses as of 12/27/2021) [facility] History of Past illness Narrative* Problem Noted Date Resolved Date Centrilobular emphysema 07/24/2017 09/15/19 20 SUMMARY 12/12/2009 09/15/2019 Overview: 64 y/o with hx CABG 06/16/06 (CLARKE to LAD, SVG to RCA, SVG to OM), HTN, COPD, TIA, active smoker admitted as transfer from OSH following left heart cath done that suggested that her 2 vein grafts are down and the CLARKE is patent. She was getting pre-operative workup prior to surgery for a vocal cord polyp surgery. She is transferred for consideration of PCI vs redo CABG. Unfortunately, the [facility] disk does not open on our viewer. She is completely sx free. Sebaceous cyst 10/12/2009 06/05/2015 documented as of this encounter (statuses as of 01/01/2022) [facility] History of Past illness Narrative* Problem Noted Date Resolved Date Centrilobular emphysema 07/24/2017 09/15/19 20 SUMMARY 12/12/2009 09/15/2019 Overview: 64 y/o with hx CABG 06/16/06 (CLARKE to LAD, SVG to RCA, SVG to OM), HTN, COPD, TIA, active smoker admitted as transfer from OSH following left heart cath done that suggested that her 2 vein grafts are down and the CLARKE is patent. She was getting pre-operative workup prior to surgery for a vocal cord polyp surgery. She is transferred for consideration of PCI vs redo CABG. Unfortunately, the [facility] disk does not open on our viewer. She is completely sx free. Sebaceous cyst 10/12/2009 06/05/2015 documented as of this encounter (statuses as of 01/02/2022) [facility] History of Past illness Narrative* Problem Noted Date Resolved Date Centrilobular emphysema 07/24/2017 09/15/19 20 SUMMARY 12/12/2009 09/15/2019 Overview: 64 y/o with hx CABG 06/16/06 (CLARKE to LAD, SVG to RCA, SVG to OM), HTN, COPD, TIA, active smoker admitted as transfer from OSH following left heart cath done that suggested that her 2 vein grafts are down and the CLARKE is patent. She was getting pre-operative workup prior to surgery for a vocal cord polyp surgery. She is transferred for consideration of PCI vs redo CABG. Unfortunately, the [facility] disk does not open on our viewer. She is completely sx free. Sebaceous cyst 10/12/2009 06/05/2015 documented as of this encounter (statuses as of 01/03/2022) [facility] History of Past illness Narrative* Problem Noted Date Resolved Date Centrilobular emphysema 07/24/2017 09/15/19 20 SUMMARY 12/12/2009 09/15/2019 Overview: 64 y/o with hx CABG 06/16/06 (CLARKE to LAD, SVG to RCA, SVG to OM), HTN, COPD, TIA, active smoker admitted as transfer from OSH following left heart cath done that suggested that her 2 vein grafts are down and the CLARKE is patent. She was getting pre-operative workup prior to surgery for a vocal cord polyp surgery. She is transferred for consideration of PCI vs redo CABG. Unfortunately, the [facility] disk does not open on our viewer. She is completely sx free. Sebaceous cyst 10/12/2009 06/05/2015 documented as of this encounter (statuses as of 01/03/2022) [facility] History of Past illness Narrative* Problem Noted Date Resolved Date Centrilobular emphysema 07/24/2017 09/15/19 20 SUMMARY 12/12/2009 09/15/2019 Overview: 64 y/o with hx CABG 06/16/06 (CLARKE to LAD, SVG to RCA, SVG to OM), HTN, COPD, TIA, active smoker admitted as transfer from OSH following left heart cath done that suggested that her 2 vein grafts are down and the CLARKE is patent. She was getting pre-operative workup prior to surgery for a vocal cord polyp surgery. She is transferred for consideration of PCI vs redo CABG. Unfortunately, the C disk does not open on our viewer. She is completely sx free. Sebaceous cyst 10/12/2009 06/05/2015 documented as of this encounter (statuses as of 01/04/2022) [facility]2018 History of Past illness Narrative* Problem Noted Date Resolved Date Centrilobular emphysema 07/24/2017 09/15/19 20 SUMMARY 12/12/2009 09/15/2019 Overview: 64 y/o with hx CABG 06/16/06 (CLARKE to LAD, SVG to RCA, SVG to OM), HTN, COPD, TIA, active smoker admitted as transfer from OSH following left heart cath done that suggested that her 2 vein grafts are down and the CLARKE is patent. She was getting pre-operative workup prior to surgery for a vocal cord polyp surgery. She is transferred for consideration of PCI vs redo CABG. Unfortunately, the [facility] disk does not open on our viewer. She is completely sx free. Sebaceous cyst 10/12/2009 06/05/2015 documented as of this encounter (statuses as of 01/08/2022) [facility] History of Past illness Narrative* Problem Noted Date Resolved Date Centrilobular emphysema 07/24/2017 09/15/19 20 SUMMARY 12/12/2009 09/15/2019 Overview: 64 y/o with hx CABG 06/16/06 (CLARKE to LAD, SVG to RCA, SVG to OM), HTN, COPD, TIA, active smoker admitted as transfer from OSH following left heart cath done that suggested that her 2 vein grafts are down and the CLARKE is patent. She was getting pre-operative workup prior to surgery for a vocal cord polyp surgery. She is transferred for consideration of PCI vs redo CABG. Unfortunately, the [facility] disk does not open on our viewer. She is completely sx free. Sebaceous cyst 10/12/2009 06/05/2015 documented as of this encounter (statuses as of 01/08/2022) [facility] History of Past illness Narrative* Problem Noted Date Resolved Date Centrilobular emphysema 07/24/2017 09/15/19 20 SUMMARY 12/12/2009 09/15/2019 Overview: 64 y/o with hx CABG 06/16/06 (CLARKE to LAD, SVG to RCA, SVG to OM), HTN, COPD, TIA, active smoker admitted as transfer from OSH following left heart cath done that suggested that her 2 vein grafts are down and the CLARKE is patent. She was getting pre-operative workup prior to surgery for a vocal cord polyp surgery. She is transferred for consideration of PCI vs redo CABG. Unfortunately, the [facility] disk does not open on our viewer. She is completely sx free. Sebaceous cyst 10/12/2009 06/05/2015 documented as of this encounter (statuses as of 01/09/2022) [facility] History of Past illness Narrative* Problem Noted Date Resolved Date Centrilobular emphysema 07/24/2017 09/15/19 20 SUMMARY 12/12/2009 09/15/2019 Overview: 64 y/o with hx CABG 06/16/06 (CLARKE to LAD, SVG to RCA, SVG to OM), HTN, COPD, TIA, active smoker admitted as transfer from OSH following left heart cath done that suggested that her 2 vein grafts are down and the CLARKE is patent. She was getting pre-operative workup prior to surgery for a vocal cord polyp surgery. She is transferred for consideration of PCI vs redo CABG. Unfortunately, the [facility] disk does not open on our viewer. She is completely sx free. Sebaceous cyst 10/12/2009 06/05/2015 documented as of this encounter (statuses as of 01/13/2022) [facility] History of Past illness Narrative* Problem Noted Date Resolved Date Centrilobular emphysema 07/24/2017 09/15/19 20 SUMMARY 12/12/2009 09/15/2019 Overview: 64 y/o with hx CABG 06/16/06 (CLARKE to LAD, SVG to RCA, SVG to OM), HTN, COPD, TIA, active smoker admitted as transfer from OSH following left heart cath done that suggested that her 2 vein grafts are down and the CLARKE is patent. She was getting pre-operative workup prior to surgery for a vocal cord polyp surgery. She is transferred for consideration of PCI vs redo CABG. Unfortunately, the C disk does not open on our viewer. She is completely sx free. Sebaceous cyst 10/12/2009 06/05/2015 documented as of this encounter (statuses as of 01/14/2022) [facility] History of Past illness Narrative* Problem Noted Date Resolved Date Centrilobular emphysema 07/24/2017 09/15/19 20 SUMMARY 12/12/2009 09/15/2019 Overview: 64 y/o with hx CABG 06/16/06 (CLARKE to LAD, SVG to RCA, SVG to OM), HTN, COPD, TIA, active smoker admitted as transfer from OSH following left heart cath done that suggested that her 2 vein grafts are down and the CLARKE is patent. She was getting pre-operative workup prior to surgery for a vocal cord polyp surgery. She is transferred for consideration of PCI vs redo CABG. Unfortunately, the [facility] disk does not open on our viewer. She is completely sx free. Sebaceous cyst 10/12/2009 06/05/2015 documented as of this encounter (statuses as of 01/16/2022) [facility] History of Past illness Narrative* Problem Noted Date Resolved Date Centrilobular emphysema 07/24/2017 09/15/19 20 SUMMARY 12/12/2009 09/15/2019 Overview: 64 y/o with hx CABG 06/16/06 (CLARKE to LAD, SVG to RCA, SVG to OM), HTN, COPD, TIA, active smoker admitted as transfer from OSH following left heart cath done that suggested that her 2 vein grafts are down and the CLARKE is patent. She was getting pre-operative workup prior to surgery for a vocal cord polyp surgery. She is transferred for consideration of PCI vs redo CABG. Unfortunately, the C disk does not open on our viewer. She is completely sx free. Sebaceous cyst 10/12/2009 06/05/2015 documented as of this encounter (statuses as of 01/17/2022) [facility] History of Past illness Narrative* Problem Noted Date Resolved Date Centrilobular emphysema 07/24/2017 09/15/19 20 SUMMARY 12/12/2009 09/15/2019 Overview: 64 y/o with hx CABG 06/16/06 (CLARKE to LAD, SVG to RCA, SVG to OM), HTN, COPD, TIA, active smoker admitted as transfer from OSH following left heart cath done that suggested that her 2 vein grafts are down and the CLARKE is patent. She was getting pre-operative workup prior to surgery for a vocal cord polyp surgery. She is transferred for consideration of PCI vs redo CABG. Unfortunately, the [facility] disk does not open on our viewer. She is completely sx free. Sebaceous cyst 10/12/2009 06/05/2015 documented as of this encounter (statuses as of 01/28/2022) [facility] History of Past illness Narrative* Problem Noted Date Resolved Date Centrilobular emphysema 07/24/2017 09/15/19 20 SUMMARY 12/12/2009 09/15/2019 Overview: 64 y/o with hx CABG 06/16/06 (CLARKE to LAD, SVG to RCA, SVG to OM), HTN, COPD, TIA, active smoker admitted as transfer from OSH following left heart cath done that suggested that her 2 vein grafts are down and the CLARKE is patent. She was getting pre-operative workup prior to surgery for a vocal cord polyp surgery. She is transferred for consideration of PCI vs redo CABG. Unfortunately, the C disk does not open on our viewer. She is completely sx free. Sebaceous cyst 10/12/2009 06/05/2015 documented as of this encounter (statuses as of 01/31/2022) [facility] History of Past illness Narrative* Problem Noted Date Resolved Date Centrilobular emphysema 07/24/2017 09/15/19 20 SUMMARY 12/12/2009 09/15/2019 Overview: 64 y/o with hx CABG 06/16/06 (CLARKE to LAD, SVG to RCA, SVG to OM), HTN, COPD, TIA, active smoker admitted as transfer from OSH following left heart cath done that suggested that her 2 vein grafts are down and the CLARKE is patent. She was getting pre-operative workup prior to surgery for a vocal cord polyp surgery. She is transferred for consideration of PCI vs redo CABG. Unfortunately, the [facility] disk does not open on our viewer. She is completely sx free. Sebaceous cyst 10/12/2009 06/05/2015 documented as of this encounter (statuses as of 02/02/2022) [facility] History of Past illness Narrative* Problem Noted Date Resolved Date Centrilobular emphysema 07/24/2017 09/15/19 20 SUMMARY 12/12/2009 09/15/2019 Overview: 64 y/o with hx CABG 06/16/06 (CLARKE to LAD, SVG to RCA, SVG to OM), HTN, COPD, TIA, active smoker admitted as transfer from OSH following left heart cath done that suggested that her 2 vein grafts are down and the CLARKE is patent. She was getting pre-operative workup prior to surgery for a vocal cord polyp surgery. She is transferred for consideration of PCI vs redo CABG. Unfortunately, the [facility] disk does not open on our viewer. She is completely sx free. Sebaceous cyst 10/12/2009 06/05/2015 documented as of this encounter (statuses as of 02/15/2022) [facility] History of Past illness Narrative* Problem Noted Date Resolved Date Centrilobular emphysema 07/24/2017 09/15/19 20 SUMMARY 12/12/2009 09/15/2019 Overview: 64 y/o with hx CABG 06/16/06 (CLARKE to LAD, SVG to RCA, SVG to OM), HTN, COPD, TIA, active smoker admitted as transfer from OSH following left heart cath done that suggested that her 2 vein grafts are down and the CLARKE is patent. She was getting pre-operative workup prior to surgery for a vocal cord polyp surgery. She is transferred for consideration of PCI vs redo CABG. Unfortunately, the [facility] disk does not open on our viewer. She is completely sx free. Sebaceous cyst 10/12/2009 06/05/2015 documented as of this encounter (statuses as of 02/19/2022) [facility] History of Past illness Narrative* Problem Noted Date Resolved Date Centrilobular emphysema 07/24/2017 09/15/19 20 SUMMARY 12/12/2009 09/15/2019 Overview: 64 y/o with hx CABG 06/16/06 (CLARKE to LAD, SVG to RCA, SVG to OM), HTN, COPD, TIA, active smoker admitted as transfer from OSH following left heart cath done that suggested that her 2 vein grafts are down and the CLARKE is patent. She was getting pre-operative workup prior to surgery for a vocal cord polyp surgery. She is transferred for consideration of PCI vs redo CABG. Unfortunately, the [facility] disk does not open on our viewer. She is completely sx free. Sebaceous cyst 10/12/2009 06/05/2015 documented as of this encounter (statuses as of 02/21/2022) [facility] History of Past illness Narrative* Problem Noted Date Resolved Date Centrilobular emphysema 07/24/2017 09/15/19 20 SUMMARY 12/12/2009 09/15/2019 Overview: 64 y/o with hx CABG 06/16/06 (CLARKE to LAD, SVG to RCA, SVG to OM), HTN, COPD, TIA, active smoker admitted as transfer from OSH following left heart cath done that suggested that her 2 vein grafts are down and the CLARKE is patent. She was getting pre-operative workup prior to surgery for a vocal cord polyp surgery. She is transferred for consideration of PCI vs redo CABG. Unfortunately, the [facility] disk does not open on our viewer. She is completely sx free. Sebaceous cyst 10/12/2009 06/05/2015 documented as of this encounter (statuses as of 02/26/2022) [facility] History of Past illness Narrative* Problem Noted Date Resolved Date Centrilobular emphysema 07/24/2017 09/15/19 20 SUMMARY 12/12/2009 09/15/2019 Overview: 64 y/o with hx CABG 06/16/06 (CLARKE to LAD, SVG to RCA, SVG to OM), HTN, COPD, TIA, active smoker admitted as transfer from OSH following left heart cath done that suggested that her 2 vein grafts are down and the CLARKE is patent. She was getting pre-operative workup prior to surgery for a vocal cord polyp surgery. She is transferred for consideration of PCI vs redo CABG. Unfortunately, the [facility] disk does not open on our viewer. She is completely sx free. Sebaceous cyst 10/12/2009 06/05/2015 documented as of this encounter (statuses as of 02/28/2022) [facility] History of Past illness Narrative* Problem Noted Date Resolved Date Centrilobular emphysema 07/24/2017 09/15/19 20 SUMMARY 12/12/2009 09/15/2019 Overview: 64 y/o with hx CABG 06/16/06 (CLARKE to LAD, SVG to RCA, SVG to OM), HTN, COPD, TIA, active smoker admitted as transfer from OSH following left heart cath done that suggested that her 2 vein grafts are down and the CLARKE is patent. She was getting pre-operative workup prior to surgery for a vocal cord polyp surgery. She is transferred for consideration of PCI vs redo CABG. Unfortunately, the [facility] disk does not open on our viewer. She is completely sx free. Sebaceous cyst 10/12/2009 06/05/2015 documented as of this encounter (statuses as of 03/05/2022) [facility] History of Past illness Narrative* Problem Noted Date Resolved Date Centrilobular emphysema 07/24/2017 09/15/19 20 SUMMARY 12/12/2009 09/15/2019 Overview: 64 y/o with hx CABG 06/16/06 (CLARKE to LAD, SVG to RCA, SVG to OM), HTN, COPD, TIA, active smoker admitted as transfer from OSH following left heart cath done that suggested that her 2 vein grafts are down and the CLARKE is patent. She was getting pre-operative workup prior to surgery for a vocal cord polyp surgery. She is transferred for consideration of PCI vs redo CABG. Unfortunately, the C disk does not open on our viewer. She is completely sx free. Sebaceous cyst 10/12/2009 06/05/2015 documented as of this encounter (statuses as of 03/25/2022) [facility] History of Past illness Narrative* Problem Noted Date Resolved Date Centrilobular emphysema 07/24/2017 09/15/19 20 SUMMARY 12/12/2009 09/15/2019 Overview: 64 y/o with hx CABG 06/16/06 (CLARKE to LAD, SVG to RCA, SVG to OM), HTN, COPD, TIA, active smoker admitted as transfer from OSH following left heart cath done that suggested that her 2 vein grafts are down and the CLARKE is patent. She was getting pre-operative workup prior to surgery for a vocal cord polyp surgery. She is transferred for consideration of PCI vs redo CABG. Unfortunately, the [facility] disk does not open on our viewer. She is completely sx free. Sebaceous cyst 10/12/2009 06/05/2015 documented as of this encounter (statuses as of 03/26/2022) [facility] History of Past illness Narrative* Problem Noted Date Resolved Date Centrilobular emphysema 07/24/2017 09/15/19 20 SUMMARY 12/12/2009 09/15/2019 Overview: 64 y/o with hx CABG 06/16/06 (CLARKE to LAD, SVG to RCA, SVG to OM), HTN, COPD, TIA, active smoker admitted as transfer from OSH following left heart cath done that suggested that her 2 vein grafts are down and the CLARKE is patent. She was getting pre-operative workup prior to surgery for a vocal cord polyp surgery. She is transferred for consideration of PCI vs redo CABG. Unfortunately, the C disk does not open on our viewer. She is completely sx free. Sebaceous cyst 10/12/2009 06/05/2015 documented as of this encounter (statuses as of 04/04/2022) [facility] History of Past illness Narrative* Problem Noted Date Resolved Date Centrilobular emphysema 07/24/2017 09/15/19 20 SUMMARY 12/12/2009 09/15/2019 Overview: 64 y/o with hx CABG 06/16/06 (CLARKE to LAD, SVG to RCA, SVG to OM), HTN, COPD, TIA, active smoker admitted as transfer from OSH following left heart cath done that suggested that her 2 vein grafts are down and the CLARKE is patent. She was getting pre-operative workup prior to surgery for a vocal cord polyp surgery. She is transferred for consideration of PCI vs redo CABG. Unfortunately, the [facility] disk does not open on our viewer. She is completely sx free. Sebaceous cyst 10/12/2009 06/05/2015 documented as of this encounter (statuses as of 04/17/2022) [facility] History of Past illness Narrative* Problem Noted Date Resolved Date Centrilobular emphysema 07/24/2017 09/15/19 20 SUMMARY 12/12/2009 09/15/2019 Overview: 64 y/o with hx CABG 06/16/06 (CLARKE to LAD, SVG to RCA, SVG to OM), HTN, COPD, TIA, active smoker admitted as transfer from OSH following left heart cath done that suggested that her 2 vein grafts are down and the CLARKE is patent. She was getting pre-operative workup prior to surgery for a vocal cord polyp surgery. She is transferred for consideration of PCI vs redo CABG. Unfortunately, the [facility] disk does not open on our viewer. She is completely sx free. Sebaceous cyst 10/12/2009 06/05/2015 documented as of this encounter (statuses as of 04/22/2022) [facility] History of Past illness Narrative* Problem Noted Date Resolved Date Centrilobular emphysema 07/24/2017 09/15/19 20 SUMMARY 12/12/2009 09/15/2019 Overview: 64 y/o with hx CABG 06/16/06 (CLARKE to LAD, SVG to RCA, SVG to OM), HTN, COPD, TIA, active smoker admitted as transfer from OSH following left heart cath done that suggested that her 2 vein grafts are down and the CLARKE is patent. She was getting pre-operative workup prior to surgery for a vocal cord polyp surgery. She is transferred for consideration of PCI vs redo CABG. Unfortunately, the [facility] disk does not open on our viewer. She is completely sx free. Sebaceous cyst 10/12/2009 06/05/2015 documented as of this encounter (statuses as of 04/23/2022) [facility] History of Past illness Narrative* Problem Noted Date Resolved Date Centrilobular emphysema 07/24/2017 09/15/19 20 SUMMARY 12/12/2009 09/15/2019 Overview: 64 y/o with hx CABG 06/16/06 (CLARKE to LAD, SVG to RCA, SVG to OM), HTN, COPD, TIA, active smoker admitted as transfer from OSH following left heart cath done that suggested that her 2 vein grafts are down and the CLARKE is patent. She was getting pre-operative workup prior to surgery for a vocal cord polyp surgery. She is transferred for consideration of PCI vs redo CABG. Unfortunately, the [facility] disk does not open on our viewer. She is completely sx free. Sebaceous cyst 10/12/2009 06/05/2015 documented as of this encounter (statuses as of 04/23/2022) [facility] History of Past illness Narrative* Problem Noted Date Resolved Date Centrilobular emphysema 07/24/2017 09/15/19 20 SUMMARY 12/12/2009 09/15/2019 Overview: 64 y/o with hx CABG 06/16/06 (CLARKE to LAD, SVG to RCA, SVG to OM), HTN, COPD, TIA, active smoker admitted as transfer from OSH following left heart cath done that suggested that her 2 vein grafts are down and the CLARKE is patent. She was getting pre-operative workup prior to surgery for a vocal cord polyp surgery. She is transferred for consideration of PCI vs redo CABG. Unfortunately, the [facility] disk does not open on our viewer. She is completely sx free. Sebaceous cyst 10/12/2009 06/05/2015 documented as of this encounter (statuses as of 04/24/2022) [facility] History of Past illness Narrative* Problem Noted Date Resolved Date Centrilobular emphysema 07/24/2017 09/15/19 20 SUMMARY 12/12/2009 09/15/2019 Overview: 64 y/o with hx CABG 06/16/06 (CLARKE to LAD, SVG to RCA, SVG to OM), HTN, COPD, TIA, active smoker admitted as transfer from OSH following left heart cath done that suggested that her 2 vein grafts are down and the CLARKE is patent. She was getting pre-operative workup prior to surgery for a vocal cord polyp surgery. She is transferred for consideration of PCI vs redo CABG. Unfortunately, the [facility] disk does not open on our viewer. She is completely sx free. Sebaceous cyst 10/12/2009 06/05/2015 documented as of this encounter (statuses as of 04/29/2022) [facility] History of Past illness Narrative* Problem Noted Date Resolved Date Centrilobular emphysema 07/24/2017 09/15/19 20 SUMMARY 12/12/2009 09/15/2019 Overview: 64 y/o with hx CABG 06/16/06 (CLARKE to LAD, SVG to RCA, SVG to OM), HTN, COPD, TIA, active smoker admitted as transfer from OSH following left heart cath done that suggested that her 2 vein grafts are down and the CLARKE is patent. She was getting pre-operative workup prior to surgery for a vocal cord polyp surgery. She is transferred for consideration of PCI vs redo CABG. Unfortunately, the [facility] disk does not open on our viewer. She is completely sx free. Sebaceous cyst 10/12/2009 06/05/2015 documented as of this encounter (statuses as of 05/01/2022) [facility] History of Past illness Narrative* Problem Noted Date Resolved Date Centrilobular emphysema 07/24/2017 09/15/19 20 SUMMARY 12/12/2009 09/15/2019 Overview: 64 y/o with hx CABG 06/16/06 (CLARKE to LAD, SVG to RCA, SVG to OM), HTN, COPD, TIA, active smoker admitted as transfer from OSH following left heart cath done that suggested that her 2 vein grafts are down and the CLARKE is patent. She was getting pre-operative workup prior to surgery for a vocal cord polyp surgery. She is transferred for consideration of PCI vs redo CABG. Unfortunately, the [facility] disk does not open on our viewer. She is completely sx free. Sebaceous cyst 10/12/2009 06/05/2015 documented as of this encounter (statuses as of 05/02/2022) [facility] History of Past illness Narrative* Problem Noted Date Resolved Date Centrilobular emphysema 07/24/2017 09/15/19 20 SUMMARY 12/12/2009 09/15/2019 Overview: 64 y/o with hx CABG 06/16/06 (CLARKE to LAD, SVG to RCA, SVG to OM), HTN, COPD, TIA, active smoker admitted as transfer from OSH following left heart cath done that suggested that her 2 vein grafts are down and the CLARKE is patent. She was getting pre-operative workup prior to surgery for a vocal cord polyp surgery. She is transferred for consideration of PCI vs redo CABG. Unfortunately, the [facility] disk does not open on our viewer. She is completely sx free. Sebaceous cyst 10/12/2009 06/05/2015 documented as of this encounter (statuses as of 05/04/2022) [facility] History of Past illness Narrative* Problem Noted Date Resolved Date Centrilobular emphysema 07/24/2017 09/15/19 20 SUMMARY 12/12/2009 09/15/2019 Overview: 64 y/o with hx CABG 06/16/06 (CLARKE to LAD, SVG to RCA, SVG to OM), HTN, COPD, TIA, active smoker admitted as transfer from OSH following left heart cath done that suggested that her 2 vein grafts are down and the CLARKE is patent. She was getting pre-operative workup prior to surgery for a vocal cord polyp surgery. She is transferred for consideration of PCI vs redo CABG. Unfortunately, the [facility] disk does not open on our viewer. She is completely sx free. Sebaceous cyst 10/12/2009 06/05/2015 documented as of this encounter (statuses as of 05/05/2022) [facility] History of Past illness Narrative* Problem Noted Date Resolved Date Centrilobular emphysema 07/24/2017 09/15/19 20 SUMMARY 12/12/2009 09/15/2019 Overview: 64 y/o with hx CABG 06/16/06 (CLARKE to LAD, SVG to RCA, SVG to OM), HTN, COPD, TIA, active smoker admitted as transfer from OSH following left heart cath done that suggested that her 2 vein grafts are down and the CLARKE is patent. She was getting pre-operative workup prior to surgery for a vocal cord polyp surgery. She is transferred for consideration of PCI vs redo CABG. Unfortunately, the [facility] disk does not open on our viewer. She is completely sx free. Sebaceous cyst 10/12/2009 06/05/2015 documented as of this encounter (statuses as of 05/06/2022) [facility] History of Past illness Narrative* Problem Noted Date Resolved Date Centrilobular emphysema 07/24/2017 09/15/19 20 SUMMARY 12/12/2009 09/15/2019 Overview: 64 y/o with hx CABG 06/16/06 (CLARKE to LAD, SVG to RCA, SVG to OM), HTN, COPD, TIA, active smoker admitted as transfer from OSH following left heart cath done that suggested that her 2 vein grafts are down and the CLARKE is patent. She was getting pre-operative workup prior to surgery for a vocal cord polyp surgery. She is transferred for consideration of PCI vs redo CABG. Unfortunately, the [facility] disk does not open on our viewer. She is completely sx free. Sebaceous cyst 10/12/2009 06/05/2015 documented as of this encounter (statuses as of 05/07/2022) [facility] History of Past illness Narrative* Problem Noted Date Resolved Date Centrilobular emphysema 07/24/2017 09/15/19 20 SUMMARY 12/12/2009 09/15/2019 Overview: 64 y/o with hx CABG 06/16/06 (CLARKE to LAD, SVG to RCA, SVG to OM), HTN, COPD, TIA, active smoker admitted as transfer from OSH following left heart cath done that suggested that her 2 vein grafts are down and the CLARKE is patent. She was getting pre-operative workup prior to surgery for a vocal cord polyp surgery. She is transferred for consideration of PCI vs redo CABG. Unfortunately, the [facility] disk does not open on our viewer. She is completely sx free. Sebaceous cyst 10/12/2009 06/05/2015 documented as of this encounter (statuses as of 05/08/2022) [facility]2018 History of Past illness Narrative* Problem Noted Date Resolved Date Centrilobular emphysema 07/24/2017 09/15/19 20 SUMMARY 12/12/2009 09/15/2019 Overview: 64 y/o with hx CABG 06/16/06 (CLARKE to LAD, SVG to RCA, SVG to OM), HTN, COPD, TIA, active smoker admitted as transfer from OSH following left heart cath done that suggested that her 2 vein grafts are down and the CLARKE is patent. She was getting pre-operative workup prior to surgery for a vocal cord polyp surgery. She is transferred for consideration of PCI vs redo CABG. Unfortunately, the [facility] disk does not open on our viewer. She is completely sx free. Sebaceous cyst 10/12/2009 06/05/2015 documented as of this encounter (statuses as of 05/12/2022) [facility] History of Past illness Narrative* Problem Noted Date Resolved Date Centrilobular emphysema 07/24/2017 09/15/19 20 SUMMARY 12/12/2009 09/15/2019 Overview: 64 y/o with hx CABG 06/16/06 (CLARKE to LAD, SVG to RCA, SVG to OM), HTN, COPD, TIA, active smoker admitted as transfer from OSH following left heart cath done that suggested that her 2 vein grafts are down and the CLARKE is patent. She was getting pre-operative workup prior to surgery for a vocal cord polyp surgery. She is transferred for consideration of PCI vs redo CABG. Unfortunately, the [facility] disk does not open on our viewer. She is completely sx free. Sebaceous cyst 10/12/2009 06/05/2015 documented as of this encounter (statuses as of 05/13/2022) [facility] History of Past illness Narrative* Problem Noted Date Resolved Date Centrilobular emphysema 07/24/2017 09/15/19 20 SUMMARY 12/12/2009 09/15/2019 Overview: 64 y/o with hx CABG 06/16/06 (CLARKE to LAD, SVG to RCA, SVG to OM), HTN, COPD, TIA, active smoker admitted as transfer from OSH following left heart cath done that suggested that her 2 vein grafts are down and the CLARKE is patent. She was getting pre-operative workup prior to surgery for a vocal cord polyp surgery. She is transferred for consideration of PCI vs redo CABG. Unfortunately, the [facility] disk does not open on our viewer. She is completely sx free. Sebaceous cyst 10/12/2009 06/05/2015 documented as of this encounter (statuses as of 05/14/2022) [facility] History of Past illness Narrative* Problem Noted Date Resolved Date Centrilobular emphysema 07/24/2017 09/15/19 20 SUMMARY 12/12/2009 09/15/2019 Overview: 64 y/o with hx CABG 06/16/06 (CLARKE to LAD, SVG to RCA, SVG to OM), HTN, COPD, TIA, active smoker admitted as transfer from OSH following left heart cath done that suggested that her 2 vein grafts are down and the CAL[place]KE is patent. She was getting pre-operative workup prior to surgery for a vocal cord polyp surgery. She is transferred for consideration of PCI vs redo CABG. Unfortunately, the [facility] disk does not open on our viewer. She is completely sx free. Sebaceous cyst 10/12/2009 06/05/2015 documented as of this encounter (statuses as of 05/17/2022) [facility] History of Past illness Narrative* Problem Noted Date Resolved Date Centrilobular emphysema 07/24/2017 09/15/19 20 SUMMARY 12/12/2009 09/15/2019 Overview: 64 y/o with hx CABG 06/16/06 (CLARKE to LAD, SVG to RCA, SVG to OM), HTN, COPD, TIA, active smoker admitted as transfer from OSH following left heart cath done that suggested that her 2 vein grafts are down and the CLARKE is patent. She was getting pre-operative workup prior to surgery for a vocal cord polyp surgery. She is transferred for consideration of PCI vs redo CABG. Unfortunately, the [facility] disk does not open on our viewer. She is completely sx free. Sebaceous cyst 10/12/2009 06/05/2015 documented as of this encounter (statuses as of 05/20/2022) [facility] History of Past illness Narrative* Problem Noted Date Resolved Date Centrilobular emphysema 07/24/2017 09/15/19 20 SUMMARY 12/12/2009 09/15/2019 Overview: 64 y/o with hx CABG 06/16/06 (CLARKE to LAD, SVG to RCA, SVG to OM), HTN, COPD, TIA, active smoker admitted as transfer from OSH following left heart cath done that suggested that her 2 vein grafts are down and the CLARKE is patent. She was getting pre-operative workup prior to surgery for a vocal cord polyp surgery. She is transferred for consideration of PCI vs redo CABG. Unfortunately, the [facility] disk does not open on our viewer. She is completely sx free. Sebaceous cyst 10/12/2009 06/05/2015 documented as of this encounter (statuses as of 05/24/2022) [facility] History of Past illness Narrative* Problem Noted Date Resolved Date Centrilobular emphysema 07/24/2017 09/15/19 20 SUMMARY 12/12/2009 09/15/2019 Overview: 64 y/o with hx CABG 06/16/06 (CLARKE to LAD, SVG to RCA, SVG to OM), HTN, COPD, TIA, active smoker admitted as transfer from OSH following left heart cath done that suggested that her 2 vein grafts are down and the CLARKE is patent. She was getting pre-operative workup prior to surgery for a vocal cord polyp surgery. She is transferred for consideration of PCI vs redo CABG. Unfortunately, the [facility] disk does not open on our viewer. She is completely sx free. Sebaceous cyst 10/12/2009 06/05/2015 documented as of this encounter (statuses as of 06/12/2022) [facility] History of Past illness Narrative* Problem Noted Date Resolved Date Centrilobular emphysema 07/24/2017 09/15/19 20 SUMMARY 12/12/2009 09/15/2019 Overview: 64 y/o with hx CABG 06/16/06 (CLARKE to LAD, SVG to RCA, SVG to OM), HTN, COPD, TIA, active smoker admitted as transfer from OSH following left heart cath done that suggested that her 2 vein grafts are down and the CLARKE is patent. She was getting pre-operative workup prior to surgery for a vocal cord polyp surgery. She is transferred for consideration of PCI vs redo CABG. Unfortunately, the [facility] disk does not open on our viewer. She is completely sx free. Sebaceous cyst 10/12/2009 06/05/2015 documented as of this encounter (statuses as of 06/17/2022) [facility] History of Past illness Narrative* Problem Noted Date Resolved Date Centrilobular emphysema 07/24/2017 09/15/19 20 SUMMARY 12/12/2009 09/15/2019 Overview: 64 y/o with hx CABG 06/16/06 (CLARKE to LAD, SVG to RCA, SVG to OM), HTN, COPD, TIA, active smoker admitted as transfer from OSH following left heart cath done that suggested that her 2 vein grafts are down and the CLARKE is patent. She was getting pre-operative workup prior to surgery for a vocal cord polyp surgery. She is transferred for consideration of PCI vs redo CABG. Unfortunately, the [facility] disk does not open on our viewer. She is completely sx free. Sebaceous cyst 10/12/2009 06/05/2015 documented as of this encounter (statuses as of 06/18/2022) [facility] History of Past illness Narrative* Problem Noted Date Resolved Date Centrilobular emphysema 07/24/2017 09/15/19 20 SUMMARY 12/12/2009 09/15/2019 Overview: 64 y/o with hx CABG 06/16/06 (CLARKE to LAD, SVG to RCA, SVG to OM), HTN, COPD, TIA, active smoker admitted as transfer from OSH following left heart cath done that suggested that her 2 vein grafts are down and the CLARKE is patent. She was getting pre-operative workup prior to surgery for a vocal cord polyp surgery. She is transferred for consideration of PCI vs redo CABG. Unfortunately, the [facility] disk does not open on our viewer. She is completely sx free. Sebaceous cyst 10/12/2009 06/05/2015 documented as of this encounter (statuses as of 07/14/2022) [facility] History of Past illness Narrative* Problem Noted Date Resolved Date Centrilobular emphysema 07/24/2017 09/15/19 20 SUMMARY 12/12/2009 09/15/2019 Overview: 64 y/o with hx CABG 06/16/06 (CLARKE to LAD, SVG to RCA, SVG to OM), HTN, COPD, TIA, active smoker admitted as transfer from OSH following left heart cath done that suggested that her 2 vein grafts are down and the CLAREK is patent. She was getting pre-operative workup prior to surgery for a vocal cord polyp surgery. She is transferred for consideration of PCI vs redo CABG. Unfortunately, the [facility] disk does not open on our viewer. She is completely sx free. Sebaceous cyst 10/12/2009 06/05/2015 documented as of this encounter (statuses as of 07/16/2022) [facility] History of Past illness Narrative* Problem Noted Date Resolved Date Centrilobular emphysema 07/24/2017 09/15/19 20 SUMMARY 12/12/2009 09/15/2019 Overview: 64 y/o with hx CABG 06/16/06 (CLARKE to LAD, SVG to RCA, SVG to OM), HTN, COPD, TIA, active smoker admitted as transfer from OSH following left heart cath done that suggested that her 2 vein grafts are down and the CLARKE is patent. She was getting pre-operative workup prior to surgery for a vocal cord polyp surgery. She is transferred for consideration of PCI vs redo CABG. Unfortunately, the [facility] disk does not open on our viewer. She is completely sx free. Sebaceous cyst 10/12/2009 06/05/2015 documented as of this encounter (statuses as of 07/24/2022) [facility] History of Past illness Narrative* Problem Noted Date Resolved Date Centrilobular emphysema 07/24/2017 09/15/19 20 SUMMARY 12/12/2009 09/15/2019 Overview: 64 y/o with hx CABG 06/16/06 (CLARKE to LAD, SVG to RCA, SVG to OM), HTN, COPD, TIA, active smoker admitted as transfer from OSH following left heart cath done that suggested that her 2 vein grafts are down and the CLARKE is patent. She was getting pre-operative workup prior to surgery for a vocal cord polyp surgery. She is transferred for consideration of PCI vs redo CABG. Unfortunately, the [facility] disk does not open on our viewer. She is completely sx free. Sebaceous cyst 10/12/2009 06/05/2015 documented as of this encounter (statuses as of 07/25/2022) [facility] History of Past illness Narrative* Problem Noted Date Resolved Date Centrilobular emphysema 07/24/2017 09/15/19 20 SUMMARY 12/12/2009 09/15/2019 Overview: 64 y/o with hx CABG 06/16/06 (CLARKE to LAD, SVG to RCA, SVG to OM), HTN, COPD, TIA, active smoker admitted as transfer from OSH following left heart cath done that suggested that her 2 vein grafts are down and the CLARKE is patent. She was getting pre-operative workup prior to surgery for a vocal cord polyp surgery. She is transferred for consideration of PCI vs redo CABG. Unfortunately, the [facility] disk does not open on our viewer. She is completely sx free. Sebaceous cyst 10/12/2009 06/05/2015 documented as of this encounter (statuses as of 07/25/2022) [facility] History of Past illness Narrative* Problem Noted Date Resolved Date Centrilobular emphysema 07/24/2017 09/15/19 20 SUMMARY 12/12/2009 09/15/2019 Overview: 64 y/o with hx CABG 06/16/06 (CLAKRE to LAD, SVG to RCA, SVG to OM), HTN, COPD, TIA, active smoker admitted as transfer from OSH following left heart cath done that suggested that her 2 vein grafts are down and the CLARKE is patent. She was getting pre-operative workup prior to surgery for a vocal cord polyp surgery. She is transferred for consideration of PCI vs redo CABG. Unfortunately, the [facility] disk does not open on our viewer. She is completely sx free. Sebaceous cyst 10/12/2009 06/05/2015 documented as of this encounter (statuses as of 08/01/2022) [facility] History of Past illness Narrative* Problem Noted Date Resolved Date Centrilobular emphysema 07/24/2017 09/15/19 20 SUMMARY 12/12/2009 09/15/2019 Overview: 64 y/o with hx CABG 06/16/06 (CLARKE to LAD, SVG to RCA, SVG to OM), HTN, COPD, TIA, active smoker admitted as transfer from OSH following left heart cath done that suggested that her 2 vein grafts are down and the CLARKE is patent. She was getting pre-operative workup prior to surgery for a vocal cord polyp surgery. She is transferred for consideration of PCI vs redo CABG. Unfortunately, the [facility] disk does not open on our viewer. She is completely sx free. Sebaceous cyst 10/12/2009 06/05/2015 documented as of this encounter (statuses as of 08/02/2022) [facility] History of Past illness Narrative* Problem Noted Date Diagnosed Date Resolved Date Centrilobular emphysema 07/24/2017 0807/2019 SUMMARY 12/12/2009 09/15/2019 Overview: 64 y/o with hx CABG 06/16/06 (CLARKE to LAD, SVG to RCA, SVG to OM), HTN, COPD, TIA, active smoker admitted as transfer from OSH following left heart cath done that suggested that her 2 vein grafts are down and the CLARKE is patent. She was getting pre-operative workup prior to surgery for a vocal cord polyp surgery. She is transferred for consideration of PCI vs redo CABG. Unfortunately, the [facility] disk does not open on our viewer. She is completely sx free. Sebaceous cyst 10/12/2009 06/05/2015 documented as of this encounter (statuses as of 08/16/2022) [facility] Overactive bladder Hypertonicity of bladder Urinary incontinence, unspecified type [facility] Diagnosis Closed nondisplaced fracture of surgical neck of right humerus with routine healing, unspecified fracture morphology, subsequent encounter- Primary Pain Generalized pain [facility] Diagnosis Encounter for screening mammogram for breast cancer [facility] Diagnosis Closed nondisplaced fracture of surgical neck of right humerus with routine healing, unspecified fracture morphology, subsequent encounter Pain Generalized pain [facility] Diagnosis Essential hypertension Unspecified essential hypertension [facility] Diagnosis Overactive bladder Hypertonicity of bladder Urinary incontinence, unspecified type Coronary artery disease involving coronary bypass graft of [place] heart without angina pectoris Cerebrovascular accident (CVA), unspecified mechanism (HCC) [facility] Diagnosis Anal cancer (HCC)- Primary Malignant neoplasm of anus, unspecified site [facility] Diagnosis 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, unspecified site [facility] Diagnosis 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, unspecified site [facility] Diagnosis Anal cancer (HCC) Malignant neoplasm of anus, unspecified site [facility] Diagnosis Encounter for gynecologic examination for high-risk patient covered by Medicare- Primary Routine gynecological examination Encounter for screening for malignant neoplasm of cervix Screening for malignant neoplasm of the cervix Anal cancer (HCC) Malignant neoplasm of anus, unspecified site [facility] Diagnosis 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, unspecified site [facility] Diagnosis Tobacco abuse Tobacco use disorder documented in this encounter [facility] Diagnosis 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, unspecified site [facility] Diagnosis Anal cancer (HCC)- Primary Malignant neoplasm of anus, unspecified site documented in this encounter [facility] Diagnosis Anal cancer (HCC)- Primary Malignant neoplasm of anus, unspecified site Chronic left shoulder pain Pain in joint, shoulder region Other closed nondisplaced fracture of proximal end of left humerus, initial encounter [facility] Diagnosis Anal cancer (HCC)- Primary Malignant neoplasm of anus, 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, unspecified site Primary hypertension Unspecified essential hypertension Anemia, unspecified type [facility] Diagnosis Anal cancer (HCC)- Primary Malignant neoplasm of anus, unspecified site [facility] Diagnosis 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, unspecified site documented in this encounter [facility] Diagnosis 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, unspecified site documented in this encounter [facility] Diagnosis 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, unspecified site [facility] Diagnosis Anal cancer (HCC)- Primary Malignant neoplasm of anus, unspecified site [facility] Diagnosis Anal cancer (HCC)- Primary Malignant neoplasm of anus, unspecified site Anemia, unspecified type Stomatitis and mucositis Stomatitis and mucositis, unspecified Hypocalcemia [facility] Diagnosis Anal cancer (HCC) Malignant neoplasm of anus, unspecified site Anemia, unspecified type [facility] Diagnosis Anal cancer (HCC)- Primary Malignant neoplasm of anus, unspecified site Iron deficiency anemia due to chronic blood loss Iron deficiency anemia secondary to blood loss (chronic) Stomatitis and mucositis Stomatitis and mucositis, unspecified Pulmonary embolus with infarction (HCC) Other pulmonary embolism and infarction Mucositis due to antineoplastic therapy Mucositis (ulcerative) due to antineoplastic therapy [facility] Diagnosis Anal cancer (HCC) Malignant neoplasm of anus, unspecified site [facility] Diagnosis Dysuria- Primary [facility] Diagnosis Anal cancer (HCC)- Primary Malignant neoplasm of anus, unspecified site Iron deficiency anemia due to chronic blood loss Iron deficiency anemia secondary to blood loss (chronic) [facility] Diagnosis Anal cancer (HCC)- Primary Malignant neoplasm of anus, unspecified site Iron deficiency anemia due to chronic blood loss Iron deficiency anemia secondary to blood loss (chronic) [facility] Diagnosis Anal cancer (HCC)- Primary Malignant neoplasm of anus, unspecified site Stomatitis and mucositis Stomatitis and mucositis, unspecified Pulmonary embolus with infarction (HCC) Other pulmonary embolism and infarction Anemia, unspecified type Adjustment insomnia Transient disorder of initiating or maintaining sleep [facility] Diagnosis Anal cancer (HCC) Malignant neoplasm of anus, unspecified site Stomatitis and mucositis Stomatitis and mucositis, unspecified Pulmonary embolus with infarction (HCC) Other pulmonary embolism and infarction Anemia, unspecified type [facility] Diagnosis Functional diarrhea- Primary Dehydration Anal cancer (HCC) Malignant neoplasm of anus, unspecified site [facility] Diagnosis Anal cancer (HCC)- Primary Malignant neoplasm of anus, unspecified site [facility] Diagnosis Anal cancer (HCC)- Primary Malignant neoplasm of anus, unspecified site [facility] Diagnosis Anal cancer (HCC)- Primary Malignant neoplasm of anus, unspecified site Anemia, unspecified type Stomatitis and mucositis Stomatitis and mucositis, unspecified Functional diarrhea Dehydration [facility] Diagnosis Anal cancer (HCC)- Primary Malignant neoplasm of anus, unspecified site [facility] Diagnosis Anal cancer (HCC)- Primary Malignant neoplasm of anus, unspecified site [facility] Diagnosis Anal cancer (HCC)- Primary Malignant neoplasm of anus, unspecified site [facility] Diagnosis Anal cancer (HCC) Malignant neoplasm of anus, unspecified site [facility] Diagnosis Anal cancer (HCC) Malignant neoplasm of anus, unspecified site [facility] Diagnosis Anal cancer (HCC)- Primary Malignant neoplasm of anus, unspecified site [facility] Diagnosis Anal cancer (HCC)- Primary Malignant neoplasm of anus, unspecified site Pulmonary embolus with infarction (HCC) Other pulmonary embolism and infarction [facility] Diagnosis Anal cancer (HCC) Malignant neoplasm of anus, unspecified site [facility] Diagnosis Encounter for education- Primary Counseling NOS [facility] Diagnosis Anal cancer (HCC)- Primary Malignant neoplasm of anus, unspecified site [facility] Diagnosis Dysuria- Primary [facility] Diagnosis Anal cancer (HCC) Malignant neoplasm of anus, unspecified site [facility] Diagnosis Anal cancer (HCC) Malignant neoplasm of anus, unspecified site [facility] Diagnosis Coronary artery disease involving coronary bypass graft of [place] heart without angina pectoris Cerebrovascular accident (CVA), unspecified mechanism (HCC) [facility] Diagnosis Urinary frequency- Primary [facility] Diagnosis Anal cancer (HCC)- Primary Malignant neoplasm of anus, unspecified site Pulmonary embolus with infarction (HCC) Other pulmonary embolism and infarction [facility] Diagnosis Anal cancer (HCC)- Primary Malignant neoplasm of anus, unspecified site [facility] Diagnosis Coronary artery disease involving coronary bypass graft of [place] heart without angina pectoris- Primary [facility] Diagnosis 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, unspecified site Stomatitis and mucositis Stomatitis and mucositis, unspecified [facility] Diagnosis Chronic bilateral low back pain without sciatica documented in this encounter [facility] Diagnosis Bilateral lower extremity edema- Primary Edema Left hip pain Pain in joint, pelvic region and thigh Pain in both lower extremities Debility Debility, unspecified Anemia, unspecified type HEATHER (acute kidney injury) (HCC) Acute kidney failure, unspecified Avascular necrosis of bone of hip, left (HCC) Shortness of breath Primary hypertension Unspecified essential hypertension Encephalopathy Encephalopathy, unspecified S/P CABG (coronary artery bypass graft) Postsurgical aortocoronary bypass status documented [facility] this encounter [facility]* Diagnosis Anal cancer (HCC) Malignant neoplasm of anus, unspecified site Left hip pain Pain in joint, pelvic region and thigh documented in this encounter [facility]* Diagnosis Avascular necrosis of bone of hip, left (HCC)- Primary Cerebrovascular accident (CVA), unspecified mechanism (HCC) 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, unspecified site [facility] this encounter [facility]* Diagnosis Fall, subsequent encounter- Primary Left hand pain Pain in limb Muscle strain Unspecified site of sprain and strain [facility]* Diagnosis Anal cancer (HCC) Malignant neoplasm of anus, unspecified site [facility]* Diagnosis 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, 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 of rectum [facility]* Diagnosis Acquired hypothyroidism- Primary Unspecified hypothyroidism 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, unspecified site Stomatitis and mucositis Stomatitis and mucositis, unspecified Coronary artery disease involving coronary bypass graft of [place] heart without angina pectoris Cerebrovascular accident (CVA), unspecified mechanism (HCC) Anal cancer (HCC) Malignant neoplasm of anus, unspecified site Overactive bladder Hypertonicity of bladder Urinary incontinence, unspecified type documented in this encounter [facility]* Diagnosis Pre-operative examination- Primary Preoperative examination, unspecified History of pulmonary embolus (PE) Personal history of pulmonary embolism History of dementia Personal history of other mental disorder Anemia, unspecified type Recurrent major depressive disorder, remission status unspecified (HCC) COPD with chronic bronchitis (HCC) Obstructive chronic bronchitis without exacerbation Obstructive sleep apnea Obstructive sleep apnea (adult) (pediatric) Tobacco dependence 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, not specified as acute or chronic, with unspecified pathological lesion in kidney Acquired hypothyroidism Unspecified hypothyroidism Vocal cord polyp Polyp of vocal cord or larynx Coronary artery disease involving coronary bypass graft of [place] heart without angina pectoris Gastroesophageal reflux disease, unspecified whether esophagitis present Primary hypertension Unspecified essential hypertension Mixed hyperlipidemia RLS (restless legs syndrome) Restless legs syndrome (RLS) History of transient ischemic attack (TIA) Transient ischemic attack (TIA), and cerebral infarction without residual deficits 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, unspecified site documented [facility] this encounter [facility]* Diagnosis COPD with chronic bronchitis (HCC)- Primary Obstructive chronic bronchitis without exacerbation Anal cancer (HCC) Malignant neoplasm of anus, unspecified site Weight loss Loss of weight Acquired hypothyroidism Unspecified hypothyroidism Tobacco dependence Tobacco use disorder [facility] this [facility]* Diagnosis Anal cancer (HCC) Malignant neoplasm of anus, unspecified site [facility] this [facility]* Diagnosis Recurrent major depressive disorder, remission status unspecified (HCC)- Primary Multi-infarct dementia, unspecified dementia severity, unspecified whether behavioral, psychotic, or mood disturbance or anxiety (HCC) Vitamin D deficiency Unspecified vitamin D deficiency Overactive bladder Hypertonicity of bladder 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, unspecified site Coronary artery disease involving coronary bypass graft of [place] heart without angina pectoris Primary hypertension Unspecified essential hypertension Mixed hyperlipidemia COPD with chronic bronchitis (HCC) Obstructive chronic bronchitis without exacerbation Gastroesophageal reflux disease, unspecified whether esophagitis present Acquired hypothyroidism Unspecified hypothyroidism Encounter for therapeutic drug monitoring [facility]* Diagnosis SOB (shortness of breath) Shortness of breath [facility]* Diagnosis SOB (shortness of breath) Shortness of breath [facility] this [facility]* Diagnosis Pulmonary emphysema, unspecified emphysema type (HCC)- Primary COPD with chronic bronchitis (HCC) Obstructive chronic bronchitis without exacerbation Cigarette smoker Tobacco use disorder ILD (interstitial lung disease) (HCC) Postinflammatory pulmonary fibrosis Anal cancer (HCC) Malignant neoplasm of anus, unspecified site documented in this encounter [facility]* Diagnosis Chronic bilateral low back pain without sciatica documented [facility] this encounter [facility]* Diagnosis Bilateral lower extremity edema- Primary Edema Shortness of breath S/P CABG (coronary artery bypass graft) Postsurgical aortocoronary bypass status Coronary artery disease involving coronary bypass graft of [place] heart without angina pectoris Pulmonary hypertension (HCC) Other chronic pulmonary heart diseases documented in this encounter [facility]* Diagnosis Recurrent major depressive disorder, remission status unspecified (HCC) documented in this encounter [facility] note* Diagnosis Bilateral lower extremity edema- Primary Edema Shortness of breath Encounter for immunization Need for other specified prophylactic vaccination against single bacterial disease documented in this encounter [facility] note* Diagnosis 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, unspecified site documented in this encounter [facility] note* Diagnosis 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, 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 of rectum documented in this encounter [facility] note* Diagnosis Chronic bilateral low back pain without sciatica documented in this encounter [facility] note* Diagnosis Screening for osteoporosis- Primary Special screening for osteoporosis Asymptomatic menopause Encounter for screening for osteoporosis Special screening for osteoporosis Asymptomatic postmenopausal status documented in this encounter [facility] for referral (narrative)* Diagnostic Procedure Only (Routine) - Pending Review Specialty Diagnoses / Procedures Referred By Livier aguilar Referred To Contact BR IMAGING Diagnoses Encounter for screening mammogram for breast cancer Procedures ADAN SCREENING SCREENING MAMMOGRAPHY BI 2-VIEW BREAST INC Ashley Mckinney MD [address] [place] [address] Br Imaging [address] [place] [phone] Referral ID Status Reason Start Date Expiration Date Visits Requested Visits Authorized [id number] Pending Review Auto-Generat ed Referral 08/07/2021 09/06/2022 1 1 [facility] for referral (narrative)* Diagnostic Procedure Only (Urgent) - Authorized Specialty Diagnoses / Procedures Referred By Livier aguilar Referred To Contact MOLECULAR & FUNCTIONAL IMAGING Diagnoses Malignant neoplasm of anus (HCC) Procedures NM PET/CT SKULL-THIGH INITIAL PET IMAGING CT ATTENUATION SKULL BASE MID-THIGH Kingsley Washburn DO [address] [place] [address] Molecular & Functional Imaging [address] [place] [phone] Referral ID Status Reason Start Date Expiration Date Visits Requested Visits Authorized [id number] Authorized Auto-Generat ed Referral 10/17/2021 11/16/2022 1 1 [facility] for referral (narrative)* Outpatient Procedure (Urgent) - Pending Review Specialty Diagnoses / Procedures Referred By Contac t Referred To Contact [facility] Diagnoses Bilateral lower extremity edema Pain in both lower extremities Procedures US LEG VEIN DVT VIKY VAS LAB DUP-SCAN XTR VEINS COMPLETE BILATERAL STUDY Kristina Nur APRN.CNP [address] [place] [address] [facility] [place] [phone] Referral ID Status Reason Start Date Expiration Date Visits Requested Visits Authorized [id number] Pending Review Auto-Generat ed Referral 04/30/2022 04/30/2023 1 1 [facility] for referral (narrative)* Outpatient Procedure (Routine) - Closed Specialty Diagnoses / Procedures Referred By Contac t Referred To Contact [facility] Diagnoses SOB (shortness of breath) Procedures LUNG DIFFUSION CAPACITY (DLCO) DIFFUSING CAPACITY Migdalia Ugarte MD [address] [place] [address] Respiratory [place] [address] [place] [address] Referral ID Status Reason Start Date Expiration Date V isits Requested Visits Authorized [id number] Closed Auto-Generate d Referral 10/14/2022 11/13/2023 1 1 * Outpatient Procedure (Routine) - Closed Specialty Diagnoses / Procedures Referred By Contac t Referred To Contact [facility] Diagnoses SOB (shortness of breath) Procedures SPIROMETRY WITH DILATOR IF OBSTRUCTED BRNCDILAT RSPSE SPMTRY PRE&POST-BRNCDILAT Migdalia Mckinney MD [address] [facility] [place] [address] Respiratory [place] [address] [place] [address] Referral ID Status Reason Start Date Expiration Date V isits Requested Visits Authorized [id number] Closed Auto-Generate d Referral 10/14/2022 11/13/2023 1 1 [facility] for visit Narrative* Diagnostic Procedure Only (Urgent) - Closed Specialty Diagnoses / Procedures Referred By Livier aguilar Referred To Contact MOLECULAR & FUNCTIONAL IMAGING Diagnoses Malignant neoplasm of anus (HCC) Procedures NM PET/CT SKULL-THIGH INITIAL PET IMAGING CT ATTENUATION SKULL BASE MID-THIGH Kingsley Washburn, [address] [place] [address] Molecular & Functional Imaging [address] [phone] Referral ID Status Reason Start Date Expiration Date V isits Requested Visits Authorized [id number] Closed Auto-Generate d Referral 10/17/2021 11/16/2022 1 1 [facility] Summary Purpose Family History No Family History Records FoundNo Family History Records FoundNo Family History Records FoundNo Family History Records FoundNo Family History Records FoundNo Family History Records FoundNo Family History Records Found Advance Directives No Advanced Directives Records FoundNo Advanced Directives Records FoundNo Advanced Directives Records FoundNo Advanced Directives Records FoundNo Advanced Directives Records FoundNo Advanced Directives Records FoundNo Advanced Directives Records Found Reason for Referral Specialty Diagnoses / Procedures Referred By Livier aguilar Referred To Contact Colon and Rectal Surgery Diagnoses Anal cancer (HCC) Procedures CONSULT TO COLO-RECTAL SURGERY OFFICE/OUTPATIENT [facility] MDM 60-74 MINUTES Kingsley Washburn, DO [address] [place] [address] Referral ID Status Reason Start Date Expiration Date Visits Requested Visits Authorized [id number] Pending Review PCP Requested Referral 10/16/2021 10/16/2022 1 1 Specialty Diagnoses / Procedures Referred By Contac t Referred To Contact MR IMAGING Diagnoses Malignant neoplasm of anus (HCC) Procedures MRI RECTUM WO/W IVCON MRI PELVIS W/O & W/CONTRAST MATERIAL Raz Brambila MD [address] [place] [address] Mr Imaging Referral ID Status Reason Start Date Expiration Date V isits Requested Visits Authorized [id number] Closed Auto-Generate d Referral 10/21/2021 11/20/2022 1 1 Specialty Diagnoses / Procedures Referred By Contac t Referred To Contact Orthopedics Diagnoses Other closed nondisplaced fracture of proximal end of left humerus, initial encounter Procedures CONSULT TO ORTHOPAEDICS OFFICE/OUTPATIENT [facility] 60-74 MINUTES Galo Maher MD [address] [place] [address] Referral ID Status Reason Start Date Expiration Date Visits Requested Visits Authorized [id number] Pending Review PCP Requested Referral 11/03/2021 10/27/2022 1 1 Specialty Diagnoses / Procedures Referred By Contac t Referred To Contact XR IMAGING Diagnoses Chronic left shoulder pain Procedures XR HUMERUS 2V AP/LAT LEFT RADEX HUMERUS MINIMUM 2 VIEWS Galo Maher [facility] [address] [facility] [facility] [place] [address] Xr Imaging Referral ID Status Reason Start Date Expiration Date Visits Requested Visits Authorized [id number] Pending Review Auto-Generat ed Referral 10/22/2021 11/21/2022 1 1 Specialty Diagnoses / Procedures Referred By Contac t Referred To Contact XR IMAGING Diagnoses Chronic left shoulder pain Procedures XR SHOULDER GENERAL 3V OR MORE AP/TRUE AP/OTHER LEFT RADEX SHOULDER COMPLETE MINIMUM 2 VIEWS Galo Maher MD [address] [facility] [place] [place] [address] Xr Imaging Referral ID Status Reason Start Date Expiration Date Visits Requested Visits Authorized [id number] Pending Review Auto-Generat ed Referral 10/22/2021 11/21/2022 1 1 Specialty Diagnoses / Procedures Referred By Contac t Referred To Contact CT IMAGING Diagnoses Malignant neoplasm of rectum (HCC) Procedures CT ABDOMEN WO IVCON CT ABDOMEN W/O CONTRAST Raz Brambila [facility] [address] [facility] [facility] [address] Ct Imaging Referral ID Status Reason Start Date Expiration Date Visits Requested Visits Authorized [id number] Pending Review Auto-Generat ed Referral 06/17/2022 07/17/2023 1 1 Specialty Diagnoses / Procedures Referred By Contac t Referred To Contact CT IMAGING Diagnoses Malignant neoplasm of anus (HCC) Procedures CT CHEST W IVCON DIAGNOSTIC COMPUTED TOMOGRAPHY THORAX W/CONTRAST Raz Brambila MD [address] [facility] [facility] [place] [phone] Imaging Referral ID Status Reason Start Date Expiration Date Visits Requested Visits Authorized [id number] Pending Review Auto-Generat ed Referral 06/17/2022 07/17/2023 1 1 Specialty Diagnoses / Procedures Referred By Contac t Referred To Contact MR IMAGING Diagnoses Malignant neoplasm of anus (HCC) Procedures MRI PELVIS WO/W IVCON MRI PELVIS W/O & W/CONTRAST MATERIAL Raz Brambila MD [address] [place] [phone] Mr Imaging Referral ID Status Reason Start Date Expiration Date Visits Requested Visits Authorized [id number] Pending Review Auto-Generat ed Referral 06/17/2022 07/17/2023 1 1 Specialty Diagnoses / Procedures Referred By Contac t Referred To Contact Pulmonary and Critical Care Medicine Diagnoses COPD with chronic bronchitis (HCC) Procedures CONSULT TO PULM/CRITICAL CARE OFFICE/OUTPATIENT [facility] 60-74 MINUTES Ashley Parikh MD [address] [place] [address] Referral ID Status Reason Start Date Expiration Date Visits Requested Visits Authorized [id number] Pending Review PCP Requested Referral 07/16/2022 07/16/2023 1 1 Specialty Diagnoses / Procedures Referred By Contac t Referred To Contact Cardiology Diagnoses 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 Procedures CONSULT TO CARDIOLOGY OFFICE/OUTPATIENT [facility] MDM 60-74 MINUTES 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, 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, [employer]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 [address] [place] [address] Referral ID Status Reason Start Date Expiration Date Visits Requested Visits Authorized [id number] Pending Review PCP Requested Referral 3 11/28/2023 1 1 Specialty Diagnoses / Procedures Referred By Contac t Referred To Contact MR IMAGING Diagnoses Malignant neoplasm of anus (HCC) Procedures MRI PELVIS WO/W IVCON MRI PELVIS W/O & W/CONTRAST MATERIAL Raz Brambila MD [address] [place] [phone] Mr Imaging [place] [address] Referral ID Status Reason Start Date Expiration Date V isits Requested Visits Authorized [id number] Closed Auto-Generate d Referral 06/17/2022 07/17/2023 1 1 Specialty Diagnoses / Procedures Referred By Contac t Referred To Contact CT IMAGING Diagnoses Malignant neoplasm of rectum (HCC) Procedures CT ABDOMEN WO IVCON CT ABDOMEN W/O CONTRAST Raz Brambila MD [address] [phone] Imaging [place] [address] Referral ID Status Reason Start Date Expiration Date V isits Requested Visits Authorized [id number] Closed Auto-Generate d Referral 06/17/2022 07/17/2023 1 1 Specialty Diagnoses / Procedures Referred By Contac t Referred To Contact CT IMAGING Diagnoses Malignant neoplasm of anus (HCC) Procedures CT CHEST W IVCON DIAGNOSTIC COMPUTED TOMOGRAPHY THORAX W/CONTRAST Raz Brambila MD [address] [facility] [address] Ct Imaging [facility] Referral ID Status Reason Start Date Expiration Date V isits Requested Visits Authorized [id number] Closed Auto-Generate d Referral 06/17/2022 07/17/2023 1 1 Medications Administered Section Inactive Administered Medications - up to 3 most recent administrations Medication Order MAR Action Action Date Dose Rate Site fluorouracil (ADRUCIL) 6,500 mg in NaCl 0.9% 144 mL in empty bag 6,500 mg (rounded from 6,760 mg = 4,000 mg/m2 1.69 m2 Treatment Plan BSA from Recorded weight), INTRAVENOUS, at 1.5 mL/hr, Administer over 96 Hours, ONCE, 1 dose, On Thu11/11/21 at 0930, EXP:_11/18/21 @ 1030 Hazardous Chemotherapy Drug: Use appropriate PPE. Protect from Light. Apheresis and/or Portable Pump 11/11/2021 11:47 AM EDT 6,500 mg 1.5 mL/hr mitoMYcin 16.9 mg syringe (MUTAMYCIN) 16.9 mg (10 mg/m2 (set by rule on 11/08/2021 8:44 PM) 1.69 m2 Treatment Plan BSA from Recorded weight), INTRAVENOUS, ONCE, 1 dose, On Thu11/11/21 at 0930, 0930 11/12/21 (Max dose = 20 mg) Hazardous Chemotherapy Drug: Use appropriate PPE. Antineoplastic Vesicant. Protect from light. Given 11/11/2021 10:50 AM EDT 16.9 mg ondansetron (PF) 8 mg injection (ZOFRAN) 8 mg, INTRAVENOUS, ONCE, 1 dose, On Thu11/11/21 at 0930 Given 11/11/2021 9:37 AM EDT 8 mg Inactive Administered Medications - up to 3 most recent administrations Medication Order MAR Action Action Date Dose Rate Site dexAMETHasone sodium phosphate 4 mg injection (DECADRON) 4 mg, INTRAVENOUS, Administer over 15 Minutes, ONCE, 1 dose, On Carri 12/05/21 at 1200, Administer 30 minutes prior to infusion. Given 12/05/2021 12:03 PM EDT 4 mg famotidine 20 mg injection (PEPCID) 20 mg, INTRAVENOUS, ONCE, 1 dose, On Thu12/05/21 at 1200, REFRIGERATE Given 12/05/2021 12:03 PM EDT 20 mg NaCl 0.9% 1,000 mL INTRAVENOUS, at 500 mL/hr, Administer over 2 Hours, ONCE, 1 dose, On Thu12/05/21 at 1200 New Bag/Syringe/Bottle 12/05/2021 12:00 PM EDT 500 mL/hr ondansetron (PF) 8 mg injection (ZOFRAN) 8 mg, INTRAVENOUS, ONCE, 1 dose, On Thu12/05/21 at 1200, Administer 30 minutes prior to infusion. Given 12/05/2021 12:03 PM EDT 8 mg Inactive Administered Medications - up to 3 most recent administrations Medication Order MAR Action Action Date Dose Rate Site dexAMETHasone sodium phosphate 4 mg injection (DECADRON) 4 mg, INTRAVENOUS, Administer over 15 Minutes, ONCE, 1 dose, On Thu12/10/21 at 1200, Administer 30 minutes prior to infusion. Given 12/10/2021 12:18 PM EDT 4 mg famotidine 20 mg injection (PEPCID) 20 mg, INTRAVENOUS, ONCE, 1 dose, On Thu12/10/21 at 1200, REFRIGERATE Given 12/10/2021 12:13 PM EDT 20 mg fluorouracil (ADRUCIL) 4,500 mg in NaCl 0.9% 101 mL in empty bag 4,500 mg (rounded from 4,563 mg = 2,700 mg/m2 1.69 m2 Treatment Plan BSA from Recorded weight), INTRAVENOUS, at 1.4 mL/hr, Administer over 72 Hours, ONCE, 1 dose, On Thu12/10/21 at 1300, EXP:_12/17/21 @ 1300 Hazardous Chemotherapy Drug: Use appropriate PPE. Protect from Light. Apheresis and/or Portable Pump 12/10/2021 1:42 PM EDT 4,500 mg 1.4 mL/hr NaCl 0.9% 1,000 mL INTRAVENOUS, at 666.67 mL/hr, Administer over 1.5 Hours, ONCE, 1 dose, On Thu12/10/21 at 1200 New Bag/Syringe/Bottle 12/10/2021 12:00 PM EDT 666.67 mL/hr ondansetron (PF) 8 mg injection (ZOFRAN) 8 mg, INTRAVENOUS, ONCE, 1 dose, On Thu12/10/21 at 1200, Administer 30 minutes prior to infusion. Given 12/10/2021 12:09 PM EDT 8 mg Additional Source Comments INFORMATION SOURCE (unrecogn ized section and content) DATE CREATED AUTHOR AUTHOR'S ORGANIZ ATION 07/30/2017 [facility] DATE CREATED AUTHOR AUTHOR'S ORGANIZ ATION 07/30/2017 [facility] DATE CREATED AUTHOR AUTHOR'S ORGANIZ ATION 08/14/2017 [facility] DATE CREATED AUTHOR AUTHOR'S ORGANIZ ATION 07/20/2019 [facility] DATE CREATED AUTHOR AUTHOR'S ORGANINGE ATION 11/06/2021 [facility] DATE CREATED AUTHOR AUTHOR'S ORGANINGE ATION 02/15/2023 [facility] Source Comments (unrecognize d section and content) In the event this informatio n is protected by the Federal Confidentiality of Alcohol and Drug Abuse Patient Records regulations: The Federal rules restrict any use of the information to criminally investigate or prosecute any alcohol or drug abuse patient.[facility] the event this information is protected by the Federal Confidentiality of Alcohol and Drug Abuse Patient Records regulations: The Federal rules restrict any use of the information to criminally investigate or prosecute any alcohol or drug abuse patient.[facility] the event this information is protected by the Federal Confidentiality of Alcohol and Drug Abuse Patient Records regulations: The Federal rules restrict any use of the information to criminally investigate or prosecute any alcohol or drug abuse patient.[facility] the event this information is protected by the Federal Confidentiality of Alcohol and Drug Abuse Patient Records regulations: The Federal rules restrict any use of the information to criminally investigate or prosecute any alcohol or drug abuse patient.[facility] the event this information is protected by the Federal Confidentiality of Alcohol and Drug Abuse Patient Records regulations: The Federal rules restrict any use of the information to criminally investigate or prosecute any alcohol or drug abuse patient.[facility] the event this information is protected by the Federal Confidentiality of Alcohol and Drug Abuse Patient Records regulations: The Federal rules restrict any use of the information to criminally investigate or prosecute any alcohol or drug abuse patient.[facility] the event this information is protected by the Federal Confidentiality of Alcohol and Drug Abuse Patient Records regulations: The Federal rules restrict any use of the information to criminally investigate or prosecute any alcohol or drug abuse patient.[facility] the event this information is protected by the Federal Confidentiality of Alcohol and Drug Abuse Patient Records regulations: The Federal rules restrict any use of the information to criminally investigate or prosecute any alcohol or drug abuse patient.[facility] the event this information is protected by the Federal Confidentiality of Alcohol and Drug Abuse Patient Records regulations: The Federal rules restrict any use of the information to criminally investigate or prosecute any alcohol or drug abuse patient.[facility] the event this information is protected by the Federal Confidentiality of Alcohol and Drug Abuse Patient Records regulations: The Federal rules restrict any use of the information to criminally investigate or prosecute any alcohol or drug abuse patient.[facility]In the event this information is protected by the Federal Confidentiality of Alcohol and Drug Abuse Patient Records regulations: The Federal rules restrict any use of the information to criminally investigate or prosecute any alcohol or drug abuse patient.[facility]In the event this information is protected by the Federal Confidentiality of Alcohol and Drug Abuse Patient Records regulations: The Federal rules restrict any use of the information to criminally investigate or prosecute any alcohol or drug abuse patient.[facility]In the event this information is protected by the Federal Confidentiality of Alcohol and Drug Abuse Patient Records regulations: The Federal rules restrict any use of the information to criminally investigate or prosecute any alcohol or drug abuse patient.[facility]In the event this information is protected by the Federal Confidentiality of Alcohol and Drug Abuse Patient Records regulations: The Federal rules restrict any use of the information to criminally investigate or prosecute any alcohol or drug abuse patient.[facility]In the event this information is protected by the Federal Confidentiality of Alcohol and Drug Abuse Patient Records regulations: The Federal rules restrict any use of the information to criminally investigate or prosecute any alcohol or drug abuse patient.[facility]In the event this information is protected by the Federal Confidentiality of Alcohol and Drug Abuse Patient Records regulations: The Federal rules restrict any use of the information to criminally investigate or prosecute any alcohol or drug abuse patient.[facility]In the event this information is protected by the Federal Confidentiality of Alcohol and Drug Abuse Patient Records regulations: The Federal rules restrict any use of the information to criminally investigate or prosecute any alcohol or drug abuse patient.[facility]In the event this information is protected by the Federal Confidentiality of Alcohol and Drug Abuse Patient Records regulations: The Federal rules restrict any use of the information to criminally investigate or prosecute any alcohol or drug abuse patient.[facility]In the event this information is protected by the Federal Confidentiality of Alcohol and Drug Abuse Patient Records regulations: The Federal rules restrict any use of the information to criminally investigate or prosecute any alcohol or drug abuse patient.[facility]In the event this information is protected by the Federal Confidentiality of Alcohol and Drug Abuse Patient Records regulations: The Federal rules restrict any use of the information to criminally investigate or prosecute any alcohol or drug abuse patient.[facility]In the event this information is protected by the Federal Confidentiality of Alcohol and Drug Abuse Patient Records regulations: The Federal rules restrict any use of the information to criminally investigate or prosecute any alcohol or drug abuse patient.[facility]In the event this information is protected by the Federal Confidentiality of Alcohol and Drug Abuse Patient Records regulations: The Federal rules restrict any use of the information to criminally investigate or prosecute any alcohol or drug abuse patient.[facility]In the event this information is protected by the Federal Confidentiality of Alcohol and Drug Abuse Patient Records regulations: The Federal rules restrict any use of the information to criminally investigate or prosecute any alcohol or drug abuse patient.[facility]In the event this information is protected by the Federal Confidentiality of Alcohol and Drug Abuse Patient Records regulations: The Federal rules restrict any use of the information to criminally investigate or prosecute any alcohol or drug abuse patient.[facility]In the event this information is protected by the Federal Confidentiality of Alcohol and Drug Abuse Patient Records regulations: The Federal rules restrict any use of the information to criminally investigate or prosecute any alcohol or drug abuse patient.[facility]In the event this information is protected by the Federal Confidentiality of Alcohol and Drug Abuse Patient Records regulations: The Federal rules restrict any use of the information to criminally investigate or prosecute any alcohol or drug abuse patient.[facility]In the event this information is protected by the Federal Confidentiality of Alcohol and Drug Abuse Patient Records regulations: The Federal rules restrict any use of the information to criminally investigate or prosecute any alcohol or drug abuse patient.[facility]In the event this information is protected by the Federal Confidentiality of Alcohol and Drug Abuse Patient Records regulations: The Federal rules restrict any use of the information to criminally investigate or prosecute any alcohol or drug abuse patient.[facility]In the event this information is protected by the Federal Confidentiality of Alcohol and Drug Abuse Patient Records regulations: The Federal rules restrict any use of the information to criminally investigate or prosecute any alcohol or drug abuse patient.[facility]In the event this information is protected by the Federal Confidentiality of Alcohol and Drug Abuse Patient Records regulations: The Federal rules restrict any use of the information to criminally investigate or prosecute any alcohol or drug abuse patient.[facility]In the event this information is protected by the Federal Confidentiality of Alcohol and Drug Abuse Patient Records regulations: The Federal rules restrict any use of the information to criminally investigate or prosecute any alcohol or drug abuse patient.[facility] the event this information is protected by the Federal Confidentiality of Alcohol and Drug Abuse Patient Records regulations: The Federal rules restrict any use of the information to criminally investigate or prosecute any alcohol or drug abuse patient.[facility]In the event this information is protected by the Federal Confidentiality of Alcohol and Drug Abuse Patient Records regulations: The Federal rules restrict any use of the information to criminally investigate or prosecute any alcohol or drug abuse patient.[facility]In the event this information is protected by the Federal Confidentiality of Alcohol and Drug Abuse Patient Records regulations: The Federal rules restrict any use of the information to criminally investigate or prosecute any alcohol or drug abuse patient.[facility]In the event this information is protected by the Federal Confidentiality of Alcohol and Drug Abuse Patient Records regulations: The Federal rules restrict any use of the information to criminally investigate or prosecute any alcohol or drug abuse patient.[facility]In the event this information is protected by the Federal Confidentiality of Alcohol and Drug Abuse Patient Records regulations: The Federal rules restrict any use of the information to criminally investigate or prosecute any alcohol or drug abuse patient.[facility]In the event this information is protected by the Federal Confidentiality of Alcohol and Drug Abuse Patient Records regulations: The Federal rules restrict any use of the information to criminally investigate or prosecute any alcohol or drug abuse patient.[facility]In the event this information is protected by the Federal Confidentiality of Alcohol and Drug Abuse Patient Records regulations: The Federal rules restrict any use of the information to criminally investigate or prosecute any alcohol or drug abuse patient.[facility]In the event this information is protected by the Federal Confidentiality of Alcohol and Drug Abuse Patient Records regulations: The Federal rules restrict any use of the information to criminally investigate or prosecute any alcohol or drug abuse patient.[facility]In the event this information is protected by the Federal Confidentiality of Alcohol and Drug Abuse Patient Records regulations: The Federal rules restrict any use of the information to criminally investigate or prosecute any alcohol or drug abuse patient.[facility]In the event this information is protected by the Federal Confidentiality of Alcohol and Drug Abuse Patient Records regulations: The Federal rules restrict any use of the information to criminally investigate or prosecute any alcohol or drug abuse patient.[facility]In the event this information is protected by the Federal Confidentiality of Alcohol and Drug Abuse Patient Records regulations: The Federal rules restrict any use of the information to criminally investigate or prosecute any alcohol or drug abuse patient.[facility]In the event this information is protected by the Federal Confidentiality of Alcohol and Drug Abuse Patient Records regulations: The Federal rules restrict any use of the information to criminally investigate or prosecute any alcohol or drug abuse patient.[facility]In the event this information is protected by the Federal Confidentiality of Alcohol and Drug Abuse Patient Records regulations: The Federal rules restrict any use of the information to criminally investigate or prosecute any alcohol or drug abuse patient.[facility]In the event this information is protected by the Federal Confidentiality of Alcohol and Drug Abuse Patient Records regulations: The Federal rules restrict any use of the information to criminally investigate or prosecute any alcohol or drug abuse patient.[facility]In the event this information is protected by the Federal Confidentiality of Alcohol and Drug Abuse Patient Records regulations: The Federal rules restrict any use of the information to criminally investigate or prosecute any alcohol or drug abuse patient.[facility]In the event this information is protected by the Federal Confidentiality of Alcohol and Drug Abuse Patient Records regulations: The Federal rules restrict any use of the information to criminally investigate or prosecute any alcohol or drug abuse patient.[facility]In the event this information is protected by the Federal Confidentiality of Alcohol and Drug Abuse Patient Records regulations: The Federal rules restrict any use of the information to criminally investigate or prosecute any alcohol or drug abuse patient.[facility]In the event this information is protected by the Federal Confidentiality of Alcohol and Drug Abuse Patient Records regulations: The Federal rules restrict any use of the information to criminally investigate or prosecute any alcohol or drug abuse patient.[facility]In the event this information is protected by the Federal Confidentiality of Alcohol and Drug Abuse Patient Records regulations: The Federal rules restrict any use of the information to criminally investigate or prosecute any alcohol or drug abuse patient.[facility]In the event this information is protected by the Federal Confidentiality of Alcohol and Drug Abuse Patient Records regulations: The Federal rules restrict any use of the information to criminally investigate or prosecute any alcohol or drug abuse patient.[facility]In the event this information is protected by the Federal Confidentiality of Alcohol and Drug Abuse Patient Records regulations: The Federal rules restrict any use of the information to criminally investigate or prosecute any alcohol or drug abuse patient.[facility]In the event this information is protected by the Federal Confidentiality of Alcohol and Drug Abuse Patient Records regulations: The Federal rules restrict any use of the information to criminally investigate or prosecute any alcohol or drug abuse patient.[facility]In the event this information is protected by the Federal Confidentiality of Alcohol and Drug Abuse Patient Records regulations: The Federal rules restrict any use of the information to criminally investigate or prosecute any alcohol or drug abuse patient.[facility]In the event this information is protected by the Federal Confidentiality of Alcohol and Drug Abuse Patient Records regulations: The Federal rules restrict any use of the information to criminally investigate or prosecute any alcohol or drug abuse patient.[facility]In the event this information is protected by the Federal Confidentiality of Alcohol and Drug Abuse Patient Records regulations: The Federal rules restrict any use of the information to criminally investigate or prosecute any alcohol or drug abuse patient.[facility]In the event this information is protected by the Federal Confidentiality of Alcohol and Drug Abuse Patient Records regulations: The Federal rules restrict any use of the information to criminally investigate or prosecute any alcohol or drug abuse patient.[facility]In the event this information is protected by the Federal Confidentiality of Alcohol and Drug Abuse Patient Records regulations: The Federal rules restrict any use of the information to criminally investigate or prosecute any alcohol or drug abuse patient.[facility]In the event this information is protected by the Federal Confidentiality of Alcohol and Drug Abuse Patient Records regulations: The Federal rules restrict any use of the information to criminally investigate or prosecute any alcohol or drug abuse patient.[facility]In the event this information is protected by the Federal Confidentiality of Alcohol and Drug Abuse Patient Records regulations: The Federal rules restrict any use of the information to criminally investigate or prosecute any alcohol or drug abuse patient.[facility]In the event this information is protected by the Federal Confidentiality of Alcohol and Drug Abuse Patient Records regulations: The Federal rules restrict any use of the information to criminally investigate or prosecute any alcohol or drug abuse patient.[facility]In the event this information is protected by the Federal Confidentiality of Alcohol and Drug Abuse Patient Records regulations: The Federal rules restrict any use of the information to criminally investigate or prosecute any alcohol or drug abuse patient.[facility]In the event this information is protected by the Federal Confidentiality of Alcohol and Drug Abuse Patient Records regulations: The Federal rules restrict any use of the information to criminally investigate or prosecute any alcohol or drug abuse patient.[facility]In the event this information is protected by the Federal Confidentiality of Alcohol and Drug Abuse Patient Records regulations: The Federal rules restrict any use of the information to criminally investigate or prosecute any alcohol or drug abuse patient.[facility]In the event this information is protected by the Federal Confidentiality of Alcohol and Drug Abuse Patient Records regulations: The Federal rules restrict any use of the information to criminally investigate or prosecute any alcohol or drug abuse patient.[facility]In the event this information is protected by the Federal Confidentiality of Alcohol and Drug Abuse Patient Records regulations: The Federal rules restrict any use of the information to criminally investigate or prosecute any alcohol or drug abuse patient.[facility]In the event this information is protected by the Federal Confidentiality of Alcohol and Drug Abuse Patient Records regulations: The Federal rules restrict any use of the information to criminally investigate or prosecute any alcohol or drug abuse patient.[facility]In the event this information is protected by the Federal Confidentiality of Alcohol and Drug Abuse Patient Records regulations: The Federal rules restrict any use of the information to criminally investigate or prosecute any alcohol or drug abuse patient.[facility]In the event this information is protected by the Federal Confidentiality of Alcohol and Drug Abuse Patient Records regulations: The Federal rules restrict any use of the information to criminally investigate or prosecute any alcohol or drug abuse patient.[facility]In the event this information is protected by the Federal Confidentiality of Alcohol and Drug Abuse Patient Records regulations: The Federal rules restrict any use of the information to criminally investigate or prosecute any alcohol or drug abuse patient.[facility]In the event this information is protected by the Federal Confidentiality of Alcohol and Drug Abuse Patient Records regulations: The Federal rules restrict any use of the information to criminally investigate or prosecute any alcohol or drug abuse patient.[facility]In the event this information is protected by the Federal Confidentiality of Alcohol and Drug Abuse Patient Records regulations: The Federal rules restrict any use of the information to criminally investigate or prosecute any alcohol or drug abuse patient.[facility]In the event this information is protected by the Federal Confidentiality of Alcohol and Drug Abuse Patient Records regulations: The Federal rules restrict any use of the information to criminally investigate or prosecute any alcohol or drug abuse patient.[facility]In the event this information is protected by the Federal Confidentiality of Alcohol and Drug Abuse Patient Records regulations: The Federal rules restrict any use of the information to criminally investigate or prosecute any alcohol or drug abuse patient.[facility]In the event this information is protected by the Federal Confidentiality of Alcohol and Drug Abuse Patient Records regulations: The Federal rules restrict any use of the information to criminally investigate or prosecute any alcohol or drug abuse patient.[facility]In the event this information is protected by the Federal Confidentiality of Alcohol and Drug Abuse Patient Records regulations: The Federal rules restrict any use of the information to criminally investigate or prosecute any alcohol or drug abuse patient.[facility]In the event this information is protected by the Federal Confidentiality of Alcohol and Drug Abuse Patient Records regulations: The Federal rules restrict any use of the information to criminally investigate or prosecute any alcohol or drug abuse patient.[facility]In the event this information is protected by the Federal Confidentiality of Alcohol and Drug Abuse Patient Records regulations: The Federal rules restrict any use of the information to criminally investigate or prosecute any alcohol or drug abuse patient.[facility]In the event this information is protected by the Federal Confidentiality of Alcohol and Drug Abuse Patient Records regulations: The Federal rules restrict any use of the information to criminally investigate or prosecute any alcohol or drug abuse patient.[facility]In the event this information is protected by the Federal Confidentiality of Alcohol and Drug Abuse Patient Records regulations: The Federal rules restrict any use of the information to criminally investigate or prosecute any alcohol or drug abuse patient.[facility]In the event this information is protected by the Federal Confidentiality of Alcohol and Drug Abuse Patient Records regulations: The Federal rules restrict any use of the information to criminally investigate or prosecute any alcohol or drug abuse patient.[facility] the event this information is protected by the Federal Confidentiality of Alcohol and Drug Abuse Patient Records regulations: The Federal rules restrict any use of the information to criminally investigate or prosecute any alcohol or drug abuse patient.[facility]In the event this information is protected by the Federal Confidentiality of Alcohol and Drug Abuse Patient Records regulations: The Federal rules restrict any use of the information to criminally investigate or prosecute any alcohol or drug abuse patient.[facility]In the event this information is protected by the Federal Confidentiality of Alcohol and Drug Abuse Patient Records regulations: The Federal rules restrict any use of the information to criminally investigate or prosecute any alcohol or drug abuse patient.[facility]In the event this information is protected by the Federal Confidentiality of Alcohol and Drug Abuse Patient Records regulations: The Federal rules restrict any use of the information to criminally investigate or prosecute any alcohol or drug abuse patient.[facility]In the event this information is protected by the Federal Confidentiality of Alcohol and Drug Abuse Patient Records regulations: The Federal rules restrict any use of the information to criminally investigate or prosecute any alcohol or drug abuse patient.[facility]In the event this information is protected by the Federal Confidentiality of Alcohol and Drug Abuse Patient Records regulations: The Federal rules restrict any use of the information to criminally investigate or prosecute any alcohol or drug abuse patient.[facility]In the event this information is protected by the Federal Confidentiality of Alcohol and Drug Abuse Patient Records regulations: The Federal rules restrict any use of the information to criminally investigate or prosecute any alcohol or drug abuse patient.[facility]In the event this information is protected by the Federal Confidentiality of Alcohol and Drug Abuse Patient Records regulations: The Federal rules restrict any use of the information to criminally investigate or prosecute any alcohol or drug abuse patient.[facility]In the event this information is protected by the Federal Confidentiality of Alcohol and Drug Abuse Patient Records regulations: The Federal rules restrict any use of the information to criminally investigate or prosecute any alcohol or drug abuse patient.[facility]In the event this information is protected by the Federal Confidentiality of Alcohol and Drug Abuse Patient Records regulations: The Federal rules restrict any use of the information to criminally investigate or prosecute any alcohol or drug abuse patient.[facility]In the event this information is protected by the Federal Confidentiality of Alcohol and Drug Abuse Patient Records regulations: The Federal rules restrict any use of the information to criminally investigate or prosecute any alcohol or drug abuse patient.[facility]In the event this information is protected by the Federal Confidentiality of Alcohol and Drug Abuse Patient Records regulations: The Federal rules restrict any use of the information to criminally investigate or prosecute any alcohol or drug abuse patient.[facility]In the event this information is protected by the Federal Confidentiality of Alcohol and Drug Abuse Patient Records regulations: The Federal rules restrict any use of the information to criminally investigate or prosecute any alcohol or drug abuse patient.[facility]In the event this information is protected by the Federal Confidentiality of Alcohol and Drug Abuse Patient Records regulations: The Federal rules restrict any use of the information to criminally investigate or prosecute any alcohol or drug abuse patient.[facility]In the event this information is protected by the Federal Confidentiality of Alcohol and Drug Abuse Patient Records regulations: The Federal rules restrict any use of the information to criminally investigate or prosecute any alcohol or drug abuse patient.[facility]In the event this information is protected by the Federal Confidentiality of Alcohol and Drug Abuse Patient Records regulations: The Federal rules restrict any use of the information to criminally investigate or prosecute any alcohol or drug abuse patient.[facility]In the event this information is protected by the Federal Confidentiality of Alcohol and Drug Abuse Patient Records regulations: The Federal rules restrict any use of the information to criminally investigate or prosecute any alcohol or drug abuse patient.[facility]In the event this information is protected by the Federal Confidentiality of Alcohol and Drug Abuse Patient Records regulations: The Federal rules restrict any use of the information to criminally investigate or prosecute any alcohol or drug abuse patient.[facility] HealthIn the event this information is protected by the Federal Confidentiality of Alcohol and Drug Abuse Patient Records regulations: The Federal rules restrict any use of the information to criminally investigate or prosecute any alcohol or drug abuse patient.[facility] HealthIn the event this information is protected by the Federal Confidentiality of Alcohol and Drug Abuse Patient Records regulations: The Federal rules restrict any use of the information to criminally investigate or prosecute any alcohol or drug abuse patient.[facility] HealthIn the event this information is protected by the Federal Confidentiality of Alcohol and Drug Abuse Patient Records regulations: The Federal rules restrict any use of the information to criminally investigate or prosecute any alcohol or drug abuse patient.[facility] HealthIn the event this information is protected by the Federal Confidentiality of Alcohol and Drug Abuse Patient Records regulations: The Federal rules restrict any use of the information to criminally investigate or prosecute any alcohol or drug abuse patient.[facility] HealthIn the event this information is protected by the Federal Confidentiality of Alcohol and Drug Abuse Patient Records regulations: The Federal rules restrict any use of the information to criminally investigate or prosecute any alcohol or drug abuse patient.[facility] HealthIn the event this information is protected by the Federal Confidentiality of Alcohol and Drug Abuse Patient Records regulations: The Federal rules restrict any use of the information to criminally investigate or prosecute any alcohol or drug abuse patient.[facility] HealthIn the event this information is protected by the Federal Confidentiality of Alcohol and Drug Abuse Patient Records regulations: The Federal rules restrict any use of the information to criminally investigate or prosecute any alcohol or drug abuse patient.[facility] HealthIn the event this information is protected by the Federal Confidentiality of Alcohol and Drug Abuse Patient Records regulations: The Federal rules restrict any use of the information to criminally investigate or prosecute any alcohol or drug abuse patient.[facility] HealthIn the event this information is protected by the Federal Confidentiality of Alcohol and Drug Abuse Patient Records regulations: The Federal rules restrict any use of the information to criminally investigate or prosecute any alcohol or drug abuse patient.[facility] HealthIn the event this information is protected by the Federal Confidentiality of Alcohol and Drug Abuse Patient Records regulations: The Federal rules restrict any use of the information to criminally investigate or prosecute any alcohol or drug abuse patient.[facility] HealthIn the event this information is protected by the Federal Confidentiality of Alcohol and Drug Abuse Patient Records regulations: The Federal rules restrict any use of the information to criminally investigate or prosecute any alcohol or drug abuse patient.[facility] HealthIn the event this information is protected by the Federal Confidentiality of Alcohol and Drug Abuse Patient Records regulations: The Federal rules restrict any use of the information to criminally investigate or prosecute any alcohol or drug abuse patient.[facility] HealthIn the event this information is protected by the Federal Confidentiality of Alcohol and Drug Abuse Patient Records regulations: The Federal rules restrict any use of the information to criminally investigate or prosecute any alcohol or drug abuse patient.[facility] HealthIn the event this information is protected by the Federal Confidentiality of Alcohol and Drug Abuse Patient Records regulations: The Federal rules restrict any use of the information to criminally investigate or prosecute any alcohol or drug abuse patient.[facility] HealthIn the event this information is protected by the Federal Confidentiality of Alcohol and Drug Abuse Patient Records regulations: The Federal rules restrict any use of the information to criminally investigate or prosecute any alcohol or drug abuse patient.[facility] HealthIn the event this information is protected by the Federal Confidentiality of Alcohol and Drug Abuse Patient Records regulations: The Federal rules restrict any use of the information to criminally investigate or prosecute any alcohol or drug abuse patient.[facility] HealthIn the event this information is protected by the Federal Confidentiality of Alcohol and Drug Abuse Patient Records regulations: The Federal rules restrict any use of the information to criminally investigate or prosecute any alcohol or drug abuse patient.[facility] HealthIn the event this information is protected by the Federal Confidentiality of Alcohol and Drug Abuse Patient Records regulations: The Federal rules restrict any use of the information to criminally investigate or prosecute any alcohol or drug abuse patient.[facility] HealthIn the event this information is protected by the Federal Confidentiality of Alcohol and Drug Abuse Patient Records regulations: The Federal rules restrict any use of the information to criminally investigate or prosecute any alcohol or drug abuse patient.[facility] HealthIn the event this information is protected by the Federal Confidentiality of Alcohol and Drug Abuse Patient Records regulations: The Federal rules restrict any use of the information to criminally investigate or prosecute any alcohol or drug abuse patient.[facility] HealthIn the event this information is protected by the Federal Confidentiality of Alcohol and Drug Abuse Patient Records regulations: The Federal rules restrict any use of the information to criminally investigate or prosecute any alcohol or drug abuse patient.[facility] HealthIn the event this information is protected by the Federal Confidentiality of Alcohol and Drug Abuse Patient Records regulations: The Federal rules restrict any use of the information to criminally investigate or prosecute any alcohol or drug abuse patient.[facility] HealthIn the event this information is protected by the Federal Confidentiality of Alcohol and Drug Abuse Patient Records regulations: The Federal rules restrict any use of the information to criminally investigate or prosecute any alcohol or drug abuse patient.[facility] HealthIn the event this information is protected by the Federal Confidentiality of Alcohol and Drug Abuse Patient Records regulations: The Federal rules restrict any use of the information to criminally investigate or prosecute any alcohol or drug abuse patient.[facility] HealthIn the event this information is protected by the Federal Confidentiality of Alcohol and Drug Abuse Patient Records regulations: The Federal rules restrict any use of the information to criminally investigate or prosecute any alcohol or drug abuse patient.[facility] HealthIn the event this information is protected by the Federal Confidentiality of Alcohol and Drug Abuse Patient Records regulations: The Federal rules restrict any use of the information to criminally investigate or prosecute any alcohol or drug abuse patient.[facility] HealthIn the event this information is protected by the Federal Confidentiality of Alcohol and Drug Abuse Patient Records regulations: The Federal rules restrict any use of the information to criminally investigate or prosecute any alcohol or drug abuse patient.[facility] HealthIn the event this information is protected by the Federal Confidentiality of Alcohol and Drug Abuse Patient Records regulations: The Federal rules restrict any use of the information to criminally investigate or prosecute any alcohol or drug abuse patient.[facility] HealthIn the event this information is protected by the Federal Confidentiality of Alcohol and Drug Abuse Patient Records regulations: The Federal rules restrict any use of the information to criminally investigate or prosecute any alcohol or drug abuse patient.[facility] HealthIn the event this information is protected by the Federal Confidentiality of Alcohol and Drug Abuse Patient Records regulations: The Federal rules restrict any use of the information to criminally investigate or prosecute any alcohol or drug abuse patient.[facility] HealthIn the event this information is protected by the Federal Confidentiality of Alcohol and Drug Abuse Patient Records regulations: The Federal rules restrict any use of the information to criminally investigate or prosecute any alcohol or drug abuse patient.[facility] HealthIn the event this information is protected by the Federal Confidentiality of Alcohol and Drug Abuse Patient Records regulations: The Federal rules restrict any use of the information to criminally investigate or prosecute any alcohol or drug abuse patient.[facility] the event this information is protected by the Federal Confidentiality of Alcohol and Drug Abuse Patient Records regulations: The Federal rules restrict any use of the information to criminally investigate or prosecute any alcohol or drug abuse patient.[facility] HealthIn the event this information is protected by the Federal Confidentiality of Alcohol and Drug Abuse Patient Records regulations: The Federal rules restrict any use of the information to criminally investigate or prosecute any alcohol or drug abuse patient.[facility] HealthIn the event this information is protected by the Federal Confidentiality of Alcohol and Drug Abuse Patient Records regulations: The Federal rules restrict any use of the information to criminally investigate or prosecute any alcohol or drug abuse patient.[facility] HealthIn the event this information is protected by the Federal Confidentiality of Alcohol and Drug Abuse Patient Records regulations: The Federal rules restrict any use of the information to criminally investigate or prosecute any alcohol or drug abuse patient.[facility] HealthIn the event this information is protected by the Federal Confidentiality of Alcohol and Drug Abuse Patient Records regulations: The Federal rules restrict any use of the information to criminally investigate or prosecute any alcohol or drug abuse patient.[facility] HealthIn the event this information is protected by the Federal Confidentiality of Alcohol and Drug Abuse Patient Records regulations: The Federal rules restrict any use of the information to criminally investigate or prosecute any alcohol or drug abuse patient.[facility] HealthIn the event this information is protected by the Federal Confidentiality of Alcohol and Drug Abuse Patient Records regulations: The Federal rules restrict any use of the information to criminally investigate or prosecute any alcohol or drug abuse patient.[facility] HealthIn the event this information is protected by the Federal Confidentiality of Alcohol and Drug Abuse Patient Records regulations: The Federal rules restrict any use of the information to criminally investigate or prosecute any alcohol or drug abuse patient.[facility] HealthIn the event this information is protected by the Federal Confidentiality of Alcohol and Drug Abuse Patient Records regulations: The Federal rules restrict any use of the information to criminally investigate or prosecute any alcohol or drug abuse patient.[facility] HealthIn the event this information is protected by the Federal Confidentiality of Alcohol and Drug Abuse Patient Records regulations: The Federal rules restrict any use of the information to criminally investigate or prosecute any alcohol or drug abuse patient.[facility] HealthIn the event this information is protected by the Federal Confidentiality of Alcohol and Drug Abuse Patient Records regulations: The Federal rules restrict any use of the information to criminally investigate or prosecute any alcohol or drug abuse patient.[facility] HealthIn the event this information is protected by the Federal Confidentiality of Alcohol and Drug Abuse Patient Records regulations: The Federal rules restrict any use of the information to criminally investigate or prosecute any alcohol or drug abuse patient.[facility] HealthIn the event this information is protected by the Federal Confidentiality of Alcohol and Drug Abuse Patient Records regulations: The Federal rules restrict any use of the information to criminally investigate or prosecute any alcohol or drug abuse patient.[facility] HealthIn the event this information is protected by the Federal Confidentiality of Alcohol and Drug Abuse Patient Records regulations: The Federal rules restrict any use of the information to criminally investigate or prosecute any alcohol or drug abuse patient.[facility] HealthIn the event this information is protected by the Federal Confidentiality of Alcohol and Drug Abuse Patient Records regulations: The Federal rules restrict any use of the information to criminally investigate or prosecute any alcohol or drug abuse patient.[facility] HealthIn the event this information is protected by the Federal Confidentiality of Alcohol and Drug Abuse Patient Records regulations: The Federal rules restrict any use of the information to criminally investigate or prosecute any alcohol or drug abuse patient.[facility] HealthIn the event this information is protected by the Federal Confidentiality of Alcohol and Drug Abuse Patient Records regulations: The Federal rules restrict any use of the information to criminally investigate or prosecute any alcohol or drug abuse patient.[facility] HealthIn the event this information is protected by the Federal Confidentiality of Alcohol and Drug Abuse Patient Records regulations: The Federal rules restrict any use of the information to criminally investigate or prosecute any alcohol or drug abuse patient.[facility] HealthIn the event this information is protected by the Federal Confidentiality of Alcohol and Drug Abuse Patient Records regulations: The Federal rules restrict any use of the information to criminally investigate or prosecute any alcohol or drug abuse patient.[facility] HealthIn the event this information is protected by the Federal Confidentiality of Alcohol and Drug Abuse Patient Records regulations: The Federal rules restrict any use of the information to criminally investigate or prosecute any alcohol or drug abuse patient.[facility] HealthIn the event this information is protected by the Federal Confidentiality of Alcohol and Drug Abuse Patient Records regulations: The Federal rules restrict any use of the information to criminally investigate or prosecute any alcohol or drug abuse patient.[facility] HealthIn the event this information is protected by the Federal Confidentiality of Alcohol and Drug Abuse Patient Records regulations: The Federal rules restrict any use of the information to criminally investigate or prosecute any alcohol or drug abuse patient.[facility] HealthIn the event this information is protected by the Federal Confidentiality of Alcohol and Drug Abuse Patient Records regulations: The Federal rules restrict any use of the information to criminally investigate or prosecute any alcohol or drug abuse patient.[facility] HealthIn the event this information is protected by the Federal Confidentiality of Alcohol and Drug Abuse Patient Records regulations: The Federal rules restrict any use of the information to criminally investigate or prosecute any alcohol or drug abuse patient.[facility] HealthIn the event this information is protected by the Federal Confidentiality of Alcohol and Drug Abuse Patient Records regulations: The Federal rules restrict any use of the information to criminally investigate or prosecute any alcohol or drug abuse patient.[facility] HealthIn the event this information is protected by the Federal Confidentiality of Alcohol and Drug Abuse Patient Records regulations: The Federal rules restrict any use of the information to criminally investigate or prosecute any alcohol or drug abuse patient.[facility] HealthIn the event this information is protected by the Federal Confidentiality of Alcohol and Drug Abuse Patient Records regulations: The Federal rules restrict any use of the information to criminally investigate or prosecute any alcohol or drug abuse patient.[facility] HealthIn the event this information is protected by the Federal Confidentiality of Alcohol and Drug Abuse Patient Records regulations: The Federal rules restrict any use of the information to criminally investigate or prosecute any alcohol or drug abuse patient.[facility] HealthIn the event this information is protected by the Federal Confidentiality of Alcohol and Drug Abuse Patient Records regulations: The Federal rules restrict any use of the information to criminally investigate or prosecute any alcohol or drug abuse patient.[facility] HealthIn the event this information is protected by the Federal Confidentiality of Alcohol and Drug Abuse Patient Records regulations: The Federal rules restrict any use of the information to criminally investigate or prosecute any alcohol or drug abuse patient.[facility] HealthIn the event this information is protected by the Federal Confidentiality of Alcohol and Drug Abuse Patient Records regulations: The Federal rules restrict any use of the information to criminally investigate or prosecute any alcohol or drug abuse patient.[facility] HealthIn the event this information is protected by the Federal Confidentiality of Alcohol and Drug Abuse Patient Records regulations: The Federal rules restrict any use of the information to criminally investigate or prosecute any alcohol or drug abuse patient.[facility] HealthIn the event this information is protected by the Federal Confidentiality of Alcohol and Drug Abuse Patient Records regulations: The Federal rules restrict any use of the information to criminally investigate or prosecute any alcohol or drug abuse patient.[facility] HealthIn the event this information is protected by the Federal Confidentiality of Alcohol and Drug Abuse Patient Records regulations: The Federal rules restrict any use of the information to criminally investigate or prosecute any alcohol or drug abuse patient.[facility] HealthIn the event this information is protected by the Federal Confidentiality of Alcohol and Drug Abuse Patient Records regulations: The Federal rules restrict any use of the information to criminally investigate or prosecute any alcohol or drug abuse patient.[facility] HealthIn the event this information is protected by the Federal Confidentiality of Alcohol and Drug Abuse Patient Records regulations: The Federal rules restrict any use of the information to criminally investigate or prosecute any alcohol or drug abuse patient.[facility] HealthIn the event this information is protected by the Federal Confidentiality of Alcohol and Drug Abuse Patient Records regulations: The Federal rules restrict any use of the information to criminally investigate or prosecute any alcohol or drug abuse patient.[facility] HealthIn the event this information is protected by the Federal Confidentiality of Alcohol and Drug Abuse Patient Records regulations: The Federal rules restrict any use of the information to criminally investigate or prosecute any alcohol or drug abuse patient.[facility] HealthIn the event this information is protected by the Federal Confidentiality of Alcohol and Drug Abuse Patient Records regulations: The Federal rules restrict any use of the information to criminally investigate or prosecute any alcohol or drug abuse patient.[facility] HealthIn the event this information is protected by the Federal Confidentiality of Alcohol and Drug Abuse Patient Records regulations: The Federal rules restrict any use of the information to criminally investigate or prosecute any alcohol or drug abuse patient.[facility] HealthIn the event this information is protected by the Federal Confidentiality of Alcohol and Drug Abuse Patient Records regulations: The Federal rules restrict any use of the information to criminally investigate or prosecute any alcohol or drug abuse patient.[facility] HealthIn the event this information is protected by the Federal Confidentiality of Alcohol and Drug Abuse Patient Records regulations: The Federal rules restrict any use of the information to criminally investigate or prosecute any alcohol or drug abuse patient.[facility] HealthIn the event this information is protected by the Federal Confidentiality of Alcohol and Drug Abuse Patient Records regulations: The Federal rules restrict any use of the information to criminally investigate or prosecute any alcohol or drug abuse patient.[facility] Reason for Visit (unrecogniz ed section and content) Specialty Diagnoses / Procedures Referred By Contac t Referred To Contact CT IMAGING Diagnoses Malignant neoplasm of anus (HCC) Procedures CT CHEST W IVCON DIAGNOSTIC COMPUTED TOMOGRAPHY THORAX W/CONTRAST Raz Brambila MD [address] [place] [address] Ct [facility] [place] [id number] Referral ID Status Reason Start Date Expiration Date V isits Requested Visits Authorized [id number] Closed Auto-Generate d Referral 06/17/2022 07/17/2023 1 1 Reason Comments Established Patient Specialty Diagnoses / Procedures Referred By Contac t Referred To Contact Diagnoses Malignant neoplasm of anus (HCC) Procedures FLUOROURACIL INJECTION MITOMYCIN 5 MG INJ Kingsley Washburn DO [address] [place] [address] [place] [facility] [address] [place] [address] Referral ID Status Reason Start Date Expiration Date Visits Re quested Visits Authorized [id number] Closed 10/17/2021 10/18/2022 99 99 Reason Onset Date Comments Refill Request 05/17/2021 Reason Onset Date Comments Refill Request 05/29/2021 Reason Comments Patient Question Reason Comments Nausea Reason Comments Nausea Fatigue Reason Comments Patient Update Reason Comments Medication Request Reason Comments Home health orders Reason Comments Home Health Nursing Plan of Care Request for Appellate Conferee Reason Comments PT plan of care Reason Comments Refill Request Reason Comments [facility] OT POC Reason Comments [facility] requesting records Reason Comments Delay of Care Request Reason Onset Date Comments Refill Request 08/26/2021 Reason Comments Medication Question increase pantoprazol e Reason Comments Patient Update Appointment Reason Comments Prescription Refills Reason Comments OT plan of care, elevated BP Reason Onset Date Comments Refill Request 09/06/2021 Reason Comments [facility], [place] update increased BP Reason Comments report high bp reading Reason Comments Home Health update: elevated BP Reason Onset Date Comments Refill Request 10/03/2021 Reason Comments Question Reason Comments Appointment Reason Comments Care Coordination Introduction Reason Comments New Patient Reason Comments Referral Information Reason Comments Consult Specialty Diagnoses / Procedures Referred By Contac t Referred To Contact Colon and Rectal Surgery Diagnoses Anal cancer (HCC) Procedures CONSULT TO COLO-RECTAL SURGERY OFFICE/OUTPATIENT NEW HIGH MDM 60-74 MINUTES Kingsley Washburn, DO [address] [place] [address] Referral ID Status Reason Start Date Expiration Date Visits Requested Visits Authorized [id number] Pending Review PCP Requested Referral 10/16/2021 10/16/2022 1 1 Reason Comments Appointment Reason Comments Radiology NM Reason Comments Results PET scan Reason Comments Missed Appointment Reason Onset Date Comments Yearly Exam 10/25/2021 Reason Onset Date Comments community monitoring outreach 10/25/2021 In sight introduction Reason Comments Radiology MRI Specialty Diagnoses / Procedures Referred By Contac t Referred To Contact MR IMAGING Diagnoses Malignant neoplasm of anus (HCC) Procedures MRI RECTUM WO/W IVCON MRI PELVIS W/O & W/CONTRAST MATERIAL Raz Brambila MD [address] [place] [address] Mr Imaging Referral ID Status Reason Start Date Expiration Date V isits Requested Visits Authorized [id number] Closed Auto-Generate d Referral 10/21/2021 11/20/2022 1 1 Reason Comments OT plan of care Reason Onset Date Comments Consult Simulation Request Form 10/28/2021 Reason Comments Future Appointment Reason Comments Consult Reason Comments Patient Education Reason Comments Home Heatlh Reason Comments F/U 3 Month Hospital F/U [facility] 10/20/21 for GI bleed. DX with rectal cancer. 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 Reason Comments Permission to Disclose Medical Info Reason Comments Chemotherapy Treatment Reason Comments CADD Pump D/C Reason Comments Bradycardia Reason Comments Patient Update Care Coordination Reason Comments Patient Update rectal bleeding Reason Comments [employer] Coach - ED Follow Up Reason Comments Blood Draw (CVAD) Reason Comments Radiotherapy On-treatment Visit Reason Comments Non-Chemotherapy Treatment Reason Comments [employer] 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 Specialty Diagnoses / Procedures [facility] By [facility] Referred To Contact Diagnoses Malignant neoplasm of anus (HCC) Procedures FLUOROURACIL INJECTION MITOMYCIN 5 MG INJ Kingsley Washburn, DO [address] [place] [address] [facility] [address] [place] [address] Referral ID Status Reason Start Date Expiration Date V isits Requested Visits Authorized [id number] Pending Review 11/08/2021 11/11/2022 99 99 Reason Comments Change Of Order Reason Comments [employer] 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 Appointment Reason Onset Date Comments Refill Request 12/24/2021 Reason Comments Orders Reason Comments Need verbal order to do eval Reason Comments First Time Treatment Education 5FU Reason Comments Radiotherapy On-treatment Visit Patient Education Completed radiation Reason Comments Detention Plan of Care Reason Comments [employer] 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 Appointments/Fo llow-up Reason Comments Care Coordination Dysuria Reason Comments Results UA Reason Onset Date Comments Refill Request 01/28/2022 Reason Onset Date Comments Refill Request 01/30/2022 Reason Comments Recheck Reason Comments Dizziness Reason Comments Results CBC--Low platelets Reason Onset Date Comments Refill Request 03/24/2022 Reason Onset Date Comments Refill Request 03/26/2022 Reason Comments Medication Problem Reason Comments requesting medication Reason Comments [employer] 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 Hospital Discha rge Reason Comments ED Follow-up [facility] d/c 04/23/2022 Reason Comments FYI-No Action Needed PT/plan of care Reason Comments Consult Anemia/ renal functi on Reason Comments Home Health Nursing-Patient Update Reason Comments OT plan of care Refill Request Reason Comments Fall Reason Comments leg swelling Leg swelling and jaziel n. Requested Oxycodone refill Reason Comments Recheck ER follow up fall Reason Comments home health calling for verbal orders Reason Comments Medication Request Dizziness Reason Comments Established Patient Reason Onset Date Comments Refill Request 06/12/2022 Reason Comments Patient Update testing cancelled Reason Comments Care Coordination Reason Comments Request Outside Medical Records Reason Comments Follow Up bronchitis Reason Onset Date Comments Refill Request 08/14/2022 Reason Comments Dementia getting worse since Chemo and radiation treatment Reason Comments Spirometry Specialty Diagnoses / Procedures [facility] By [facility] Referred To [facility] [place] Diagnoses SOB (shortness of breath) Procedures LUNG DIFFUSION CAPACITY (DLCO) DIFFUSING CAPACITY Migdalia Ugarte MD [address] [place] [address] [address] Referral ID Status Reason Start Date Expiration Date V isits Requested Visits Authorized [id number] Closed Auto-Generate d Referral 10/14/2022 11/13/2023 1 1 Specialty Diagnoses / Procedures Referred By [facility] Referred To [facility] [place] Diagnoses SOB (shortness of breath) Procedures SPIROMETRY WITH DILATOR IF OBSTRUCTED BRNCDILAT RSPSE SPMTRY PRE&POST-BRNCDILAT ADMN Migdalia Ugarte MD [address] [place] [address] [address] Referral ID Status Reason Start Date Expiration Date V isits Requested Visits Authorized [id number] Closed Auto-Generate d Referral 10/14/2022 11/13/2023 1 1 Reason Comments New Patient COPD Specialty Diagnoses / Procedures Referred By [facility] Referred To Contact Pulmonary and Critical Care Medicine Diagnoses COPD with chronic bronchitis (HCC) Procedures CONSULT TO PULM/CRITICAL CARE OFFICE/OUTPATIENT [facility] MDM 60-74 MINUTES Ashley Parikh MD [address] [place] [address] Referral ID Status Reason Start Date Expiration Date Visits Requested Visits Authorized [id number] Pending Review PCP Requested Referral 07/16/2022 07/16/2023 1 1 Reason Onset Date Comments Refill Request 10/01/2022 Reason Comments ED Follow-up Pain in legs and CHF Reason Comments Edema Reason Comments 1 WEEK FOLLOW UP Specialty Diagnoses / Procedures Referred By [facility] Referred To Contact MR IMAGING Diagnoses Malignant neoplasm of anus (HCC) Procedures MRI PELVIS WO/W IVCON MRI PELVIS W/O & W/CONTRAST MATERIAL Raz Brambila MD [address] [place] [address] Mr Imaging [place] [address] Referral ID Status Reason Start Date Expiration Date V isits Requested Visits Authorized [id number] Closed Auto-Generate d Referral 06/17/2022 07/17/2023 1 1 Reason Onset Date Comments Refill Request 01/05/2023 Care Teams (unrecognized sec tion and content) Ski Lift Mechanic Relationship Specialty Start Date End Date Ashley Parikh MD [address] [place], [place] [id number] PCP - General Internal Medicine 04/08/19 Ski Lift Mechanic Relationship Specialty Start Date End Date Ashley Parikh MD [address] [place] [address] PCP - General Internal Medicine 04/08/19 Ski Lift Mechanic Relationship Specialty Start Date End Date Ashley Parikh MD [address] [place] [address] PCP - General Internal Medicine 04/08/19 Ski Lift Mechanic Relationship Specialty Start Date End Date Ashley Parikh MD [address] [place], [place] [id number] PCP - General Internal Medicine 04/08/19 Ski Lift Mechanic Relationship Specialty Start Date End Date Ashley Parikh MD [address] [place] [address] PCP - General Internal Medicine 04/08/19 Ski Lift Mechanic Relationship Specialty Start Date End Date Ashley Parikh MD [address] [place] [address] PCP - General Internal Medicine 04/08/19 Ski Lift Mechanic Relationship Specialty Start Date End Date Ashley Parikh MD [address] [place] [address] PCP - General Internal Medicine 04/08/19 Ski Lift Mechanic Relationship Specialty Start Date End Date Ashley Parikh MD [address] [place] [address] PCP - General Internal Medicine 04/08/19 Ski Lift Mechanic Relationship Specialty Start Date End Date Ashley Parikh MD [address] [place] [address] PCP - General Internal Medicine 04/08/19 Ski Lift Mechanic Relationship Specialty Start Date End Date Ashley Parikh MD [address] [place] [address] PCP - General Internal Medicine 04/08/19 Ski Lift Mechanic Relationship Specialty Start Date End Date Ashley Parikh MD [address] [place] [address] PCP - General Internal Medicine 04/08/19 Ski Lift Mechanic Relationship Specialty Start Date End Date Ashley Parikh MD [address] [place] [address] PCP - General Internal Medicine 04/08/19 Ski Lift Mechanic Relationship Specialty Start Date End Date Ashley Parikh MD [address] [place] [address] PCP - General Internal Medicine 04/08/19 Ski Lift Mechanic Relationship Specialty Start Date End Date Ashley Parikh MD [address] [place] [address] PCP - General Internal Medicine 04/08/19 Ski Lift Mechanic Relationship Specialty Start Date End Date Ashley Parikh MD [address] [place] [address] PCP - General Internal Medicine 04/08/19 Ski Lift Mechanic Relationship Specialty Start Date End Date Ashley Parikh MD [address] [place] [address] PCP - General Internal Medicine 04/08/19 Ski Lift Mechanic Relationship Specialty Start Date End Date Ashley Parikh MD [address] [place] [address] PCP - General Internal Medicine 04/08/19 Mariano Purdy MD, [address] [place] [address] Radiation Oncology 10/18/21 Ski Lift Mechanic Relationship Specialty Start Date End Date Ashley Parikh MD [address] [place] [address] PCP - General Internal Medicine 04/08/19 Mariano Purdy MD, [address] [place] [address] Radiation Oncology 10/18/21 Ski Lift Mechanic Relationship Specialty Start Date End Date Ashley Parikh MD [address] [place] [address] PCP - General Internal Medicine 04/08/19 Mariano Purdy MD, [address] [place] [address] Radiation Oncology 10/18/21 Ski Lift Mechanic Relationship Specialty Start Date End Date Ashley Parikh MD [address] [place] [address] PCP - General Internal Medicine 04/08/19 Mariano Purdy MD, [address] [place] [address] Radiation Oncology 10/18/21 Ski Lift Mechanic Relationship Specialty Start Date End Date Ashley Parikh MD [address] [place] [address] PCP - General Internal Medicine 04/08/19 Mariano Purdy MD, [address] [place] [address] Radiation Oncology 10/18/21 Ski Lift Mechanic Relationship Specialty Start Date End Date Ashley Parikh MD [address] [place] [address] PCP - General Internal Medicine 04/08/19 Mariano Purdy MD, [address] [place] [address] Radiation Oncology 10/18/21 Ski Lift Mechanic Relationship Specialty Start Date End Date Ashley Parikh MD [address] [place] [address] PCP - General Internal Medicine 04/08/19 Mariano Purdy MD, [address] [place] [address] Radiation Oncology 10/18/21 Ski Lift Mechanic Relationship Specialty Start Date End Date Ashley Parikh MD [address] [place] [address] PCP - General Internal Medicine 04/08/19 Mariano Purdy MD, [address] [place] [address] Radiation Oncology 10/18/21 Ski Lift Mechanic Relationship Specialty Start Date End Date Ashley Parikh MD [address] [place] [address] PCP - General Internal Medicine 04/08/19 Mariano Purdy MD, [address] [place] [address] Radiation Oncology 10/18/21 Ski Lift Mechanic Relationship Specialty Start Date End Date Ashley Parikh MD [address] [place] [address] PCP - General Internal Medicine 04/08/19 Mariano Purdy MD, [address] [place] [address] Radiation Oncology 10/18/21 Ski Lift Mechanic Relationship Specialty Start Date End Date Ashley Parikh MD [address] [place] [address] PCP - General Internal Medicine 04/08/19 Mariano Purdy MD, [address] [facility] [place] [address] Radiation Oncology 10/18/21 Ski Lift Mechanic Relationship Specialty Start Date End Date Ashley Parikh MD [address] [place] [address] PCP - General Internal Medicine 04/08/19 Mariano Purdy MD, [address] [place] [address] Radiation Oncology 10/18/21 Ski Lift Mechanic Relationship Specialty Start Date End Date Ashley Parikh MD [address] [place] [address] PCP - General Internal Medicine 04/08/19 Mariano Purdy MD, [address] [place] [address] Radiation Oncology 10/18/21 Ski Lift Mechanic Relationship Specialty Start Date End Date Ashley Parikh MD [address] [place] [address] PCP - General Internal Medicine 04/08/19 Mariano Purdy MD, [address] [place] [address] Radiation Oncology 10/18/21 Ski Lift Mechanic Relationship Specialty Start Date End Date Ashley Parikh MD [address] [place] [address] PCP - General Internal Medicine 04/08/19 Mariano Purdy MD, [address] [place] [address] Radiation Oncology 10/18/21 Ski Lift Mechanic Relationship Specialty Start Date End Date Ashley Parikh MD [address] [place] [address] PCP - General Internal Medicine 04/08/19 Mariano Purdy MD, [address] [place] [address] Radiation Oncology 10/18/21 Ski Lift Mechanic Relationship Specialty Start Date End Date Ashley Parikh MD [address] [place] [address] PCP - General Internal Medicine 04/08/19 Mariano Purdy MD, [address] [place] [address] Radiation Oncology 10/18/21 Ski Lift Mechanic Relationship Specialty Start Date End Date Ashley Parikh MD [address] [place] [address] PCP - General Internal Medicine 04/08/19 Mariano Purdy MD, [address] [place] [address] Radiation Oncology 10/18/21 Ski Lift Mechanic Relationship Specialty Start Date End Date Ashley Parikh MD [address] [place] [address] PCP - General Internal Medicine 04/08/19 Mariano Purdy MD, [address] [place] [address] Radiation Oncology 10/18/21 Ski Lift Mechanic Relationship Specialty Start Date End Date Ashley Parikh MD [address] [place] [address] PCP - General Internal Medicine 04/08/19 Mariano Purdy MD, [address] [place] [address] Radiation Oncology 10/18/21 Ski Lift Mechanic Relationship Specialty Start Date End Date Ashley Parikh MD [address] [place] [address] PCP - General Internal Medicine 04/08/19 Mariano Purdy MD, [address] [place] [address] Radiation Oncology 10/18/21 Ski Lift Mechanic Relationship Specialty Start Date End Date Ashley Parikh MD [address] [place] [address] PCP - General Internal Medicine 04/08/19 Mariano Purdy MD, [address] [place] [address] Radiation Oncology 10/18/21 Ski Lift Mechanic Relationship Specialty Start Date End Date Ashley Parikh MD [address] [facility] [place] [address] PCP - General Internal Medicine 04/08/19 Mariano Purdy MD, [address] [facility] [place] [address] Radiation Oncology 10/18/21 Comfort Davila RN Specialty Online Health [employer] Fitness Coach Oncology 11/07/21 Ski Lift Mechanic Relationship Specialty Start Date End Date Ashley Parikh MD [address] [facility] [place] [id number] PCP - General Internal Medicine 04/08/19 Mariano Purdy MD, [address] [facility] [place] [address] Radiation Oncology 10/18/21 Comfort Davila RN Specialty Online Health And Fitness Coach Oncology 11/07/21 Ski Lift Mechanic Relationship Specialty Start Date End Date Ashley Parikh MD [address] [facility] [place] [address] PCP - General Internal Medicine 04/08/19 Mariano Purdy MD, [address] [facility] [place] [address] Radiation Oncology 10/18/21 Comfort Davila RN Specialty Online Health And Fitness Coach Oncology 11/07/21 Ski Lift Mechanic Relationship Specialty Start Date End Date Ashley Parikh MD [address] [facility] [place] [address] PCP - General Internal Medicine 04/08/19 Mariano Purdy MD, [address] [facility] [place] [address] Radiation Oncology 10/18/21 Comfort Davila RN Specialty Online Health And Fitness Coach Oncology 11/07/21 Ski Lift Mechanic Relationship Specialty Start Date End Date Ashley Parikh MD [address] [place] [address] PCP - General Internal Medicine 04/08/19 Mariano Purdy MD, [address] [facility] [place] [address] Radiation Oncology 10/18/21 Comfort Davila RN Specialty Online Health [employer] Fitness Coach Oncology 11/07/21 Ski Lift Mechanic Relationship Specialty Start Date End Date Ashley Parikh MD [address] [place] [address] PCP - General Internal Medicine 04/08/19 Mariano Purdy MD, [address] [facility] [place] [address] Radiation Oncology 10/18/21 Comfort Davila RN Specialty Online Health [employer] Fitness Coach Oncology 11/07/21 Ski Lift Mechanic Relationship Specialty Start Date End Date Ashley Parikh MD [address] [place] [address] PCP - General Internal Medicine 04/08/19 Mariano Purdy MD, [address] [facility] [place] [address] Radiation Oncology 10/18/21 Comfort Davila RN Specialty Online Health [employer] Fitness Coach Oncology 11/07/21 Ski Lift Mechanic Relationship Specialty Start Date End Date Ashley Parikh MD [address] [facility] [place] [address] PCP - General Internal Medicine 04/08/19 Mariano Purdy MD, [address] [facility] [place] [address] Radiation Oncology 10/18/21 Comfort Davila RN Specialty Online Health [employer] Fitness Coach Oncology 11/07/21 Ski Lift Mechanic Relationship Specialty Start Date End Date Ashley Parikh MD [address] [facility] [place] [address] PCP - General Internal Medicine 04/08/19 Mariano Purdy MD, [address] [facility] [place] [address] Radiation Oncology 10/18/21 Comfort Davila RN Specialty Online Health [employer] Fitness Coach Oncology 11/07/21 Ski Lift Mechanic Relationship Specialty Start Date End Date Ashley Parikh MD [address] [facility] [place] [address] PCP - General Internal Medicine 04/08/19 Mariano Purdy MD, [address] [place] [address] Radiation Oncology 10/18/21 Comfort Davila RN Specialty Online Health [employer] Fitness Coach Oncology 11/07/21 Ski Lift Mechanic Relationship Specialty Start Date End Date Ashley Parikh MD [address] [facility] [place] [address] PCP - General Internal Medicine 04/08/19 Mariano Purdy MD, [address] [place] [address] Radiation Oncology 10/18/21 Comfort Davila RN Specialty Online Health [employer] Fitness Coach Oncology 11/07/21 Ski Lift Mechanic Relationship Specialty Start Date End Date Ashley Parikh MD [address] [facility] [place] [address] PCP - General Internal Medicine 04/08/19 Mariano Purdy MD, [address] [facility] [place] [address] Radiation Oncology 10/18/21 Comfort Davila RN Specialty Online Health And Fitness Coach Oncology 11/07/21 Ski Lift Mechanic Relationship Specialty Start Date End Date Ashley Parikh MD [address] [place] [address] PCP - General Internal Medicine 04/08/19 Mariano Purdy MD, [address] [facility] [address] Radiation Oncology 10/18/21 Comfort Davila RN Specialty Online Health And Fitness Coach Oncology 11/07/21 Ski Lift Mechanic Relationship Specialty Start Date End Date Ashley Parikh MD [address] [place] [address] PCP - General Internal Medicine 04/08/19 Mariano Purdy MD, [address] [place] [address] Radiation Oncology 10/18/21 Comfort Davila RN Specialty Online Health And Fitness Coach Oncology 11/07/21 Ski Lift Mechanic Relationship Specialty Start Date End Date Ashley Parikh MD [address] [place] [address] PCP - General Internal Medicine 04/08/19 Mariaon Purdy MD, [address] [place] [address] Radiation Oncology 10/18/21 Comfort Davila RN Specialty Online Health And Fitness Coach Oncology 11/07/21 Ski Lift Mechanic Relationship Specialty Start Date End Date Ashley Parikh MD [address] [place] [address] PCP - General Internal Medicine 04/08/19 Mariano Purdy MD, [address] [facility] [address] Radiation Oncology 10/18/21 Comfort Davila RN Specialty Online Health And Fitness Coach Oncology 11/07/21 Ski Lift Mechanic Relationship Specialty Start Date End Date Ashley Parikh MD [address] [place] [address] PCP - General Internal Medicine 04/08/19 Mariano Purdy MD, [address] [place] [address] Radiation Oncology 10/18/21 Comfort Davila RN Specialty Online Health And Fitness Coach Oncology 11/07/21 Kingsley Washburn, DO [address] [place] [address] Hematology/Oncology 11/29/21 Ski Lift Mechanic Relationship Specialty Start Date End Date Ashley Parikh MD [address] [place] [address] PCP - General Internal Medicine 04/08/19 Mariano Purdy MD, [address] [place] [address] Radiation Oncology 10/18/21 Comfort Davila RN Specialty Online Health [employer] Fitness Coach Oncology 11/07/21 Kingsley Washburn, DO [address] [place] [address] Hematology/Oncology 11/29/21 Ski Lift Mechanic Relationship Specialty Start Date End Date Ashley Parikh MD [address] [place] [address] PCP - General Internal Medicine 04/08/19 Mariano Purdy MD, [address] [place] [address] Radiation Oncology 10/18/21 Comfort Davila RN Specialty Online Health And Fitness Coach Oncology 11/07/21 Kingsley Washburn, DO [address] [place] [address] Hematology/Oncology 11/29/21 Ski Lift Mechanic Relationship Specialty Start Date End Date Ashley Parikh MD [address] [place] [address] PCP - General Internal Medicine 04/08/19 Mariano Purdy MD, [address] [place] [address] Radiation Oncology 10/18/21 Comfort Davila, RN Specialty Online Health [employer] Fitness Coach Oncology 11/07/21 Kingsley Washburn, DO [address] [place] [address] Hematology/Oncology 11/29/21 Ski Lift Mechanic Relationship Specialty Start Date End Date Ashley Parikh MD [address] [place] [address] PCP - General Internal Medicine 04/08/19 Mariano Purdy MD, [address] [place] [address] Radiation Oncology 10/18/21 Comfort Davila RN Specialty Online Health And Fitness Coach Oncology 11/07/21 Kingsley Washburn, DO [address] [place] [address] Hematology/Oncology 11/29/21 Ski Lift Mechanic Relationship Specialty Start Date End Date Ashley Parikh MD [address] [place] [address] PCP - General Internal Medicine 04/08/19 Mariano Purdy MD, [address] [place] [address] Radiation Oncology 10/18/21 Comfort Davila RN Specialty Online Health And Fitness Coach Oncology 11/07/21 Kingsley Washburn, DO [address] [place] [address] Hematology/Oncology 11/29/21 Ski Lift Mechanic Relationship Specialty Start Date End Date Ashley Parikh MD [address] [place] [address] PCP - General Internal Medicine 04/08/19 Mariano Purdy MD, [address] [place] [address] Radiation Oncology 10/18/21 Comfort Davila RN Specialty Online [employer] And Fitness Coach Oncology 11/07/21 Kingsley Washburn, DO [address] [place] [address] Hematology/Oncology 11/29/21 Ski Lift Mechanic Relationship Specialty Start Date End Date Ashley Parikh MD [address] [place] [address] PCP - General Internal Medicine 04/08/19 Mariano Purdy MD, [address] [place] [address] Radiation Oncology 10/18/21 Comfort Davila RN Specialty Online [employer] Fitness Coach Oncology 11/07/21 Kingsley Washburn, DO [address] [place] [address] Hematology/Oncology 11/29/21 Ski Lift Mechanic Relationship Specialty Start Date End Date Ashley Parikh MD [address] [place] [address] PCP - General Internal Medicine 04/08/19 Mariano Purdy MD, [address] [place] [address] Radiation Oncology 10/18/21 Comfort Davila RN Specialty Online [employer] Fitness Coach Oncology 11/07/21 Kingsley Washburn, DO [address] [place] [address] Hematology/Oncology 11/29/21 Ski Lift Mechanic Relationship Specialty Start Date End Date Ashley Parikh MD [address] [place] [address] PCP - General Internal Medicine 04/08/19 Mariano Purdy MD, [address] [place] [address] Radiation Oncology 10/18/21 Comfort Davila, RN Specialty Online [employer] Fitness Coach Oncology 11/07/21 Kingsley Washburn, DO [address] [place] [address] Hematology/Oncology 11/29/21 Ski Lift Mechanic Relationship Specialty Start Date End Date Ashley Parikh MD [address] [place] [address] PCP - General Internal Medicine 04/08/19 Mariano Purdy MD, [address] [place] [address] Radiation Oncology 10/18/21 Comfort Davila RN Specialty Online [employer] Fitness Coach Oncology 11/07/21 Kingsley Washburn, DO [address] [place] [address] Hematology/Oncology 11/29/21 Ski Lift Mechanic Relationship Specialty Start Date End Date Ashley Parikh MD [address] [place] [address] PCP - General Internal Medicine 04/08/19 Mariano Purdy MD, [address] [place] [address] Radiation Oncology 10/18/21 Comfort Davila RN Specialty Online [employer] Fitness Coach Oncology 11/07/21 Kingsley Washburn, DO [address] [place] [address] Hematology/Oncology 11/29/21 Ski Lift Mechanic Relationship Specialty Start Date End Date Ashley Parikh MD [address] [place] [address] PCP - General Internal Medicine 04/08/19 Mariano Purdy MD, [address] [place] [address] Radiation Oncology 10/18/21 Comfort Davila RN Specialty Online [employer] Fitness Coach Oncology 11/07/21 Kingsley Washburn, DO [address] [place] [address] Hematology/Oncology 11/29/21 Ski Lift Mechanic Relationship Specialty Start Date End Date Ashley Parikh MD [address] [place] [address] PCP - General Internal Medicine 04/08/19 Mariano Purdy MD, [address] [place] [address] Radiation Oncology 10/18/21 Comfort Davila RN Specialty [employer] Oncology 11/07/21 Kingsley Washburn, DO [address] [place] [address] Hematology/Oncology 11/29/21 Ski Lift Mechanic Relationship Specialty Start Date End Date Ashley Parikh MD [address] [place] [address] PCP - General Internal Medicine 04/08/19 Mariano Purdy MD, [address] [place] [address] Radiation Oncology 10/18/21 Comfort Davila RN Specialty [employer] Coach Oncology 11/07/21 Kingsley Washburn, DO [address] [place] [address] Hematology/Oncology 11/29/21 Ski Lift Mechanic Relationship Specialty Start Date End Date Ashley Parikh MD [address] [place] [address] PCP - General Internal Medicine 04/08/19 Mariano Purdy MD, [address] [place] [address] Radiation Oncology 10/18/21 Comfort Davila, RN Specialty [employer] Coach Oncology 11/07/21 Kingsley Washburn, DO [address] [place] [address] Hematology/Oncology 11/29/21 Ski Lift Mechanic Relationship Specialty Start Date End Date Ashley Parikh MD [address] [place] [address] PCP - General Internal Medicine 04/08/19 Mariano Purdy MD, [address] [place] [address] Radiation Oncology 10/18/21 Comfort Davila RN Specialty [employer] Coach Oncology 11/07/21 Kingsley Washburn, DO [address] [place] [address] Hematology/Oncology 11/29/21 Ski Lift Mechanic Relationship Specialty Start Date End Date Ashley Parikh MD [address] [place] [address] PCP - General Internal Medicine 04/08/19 Mariano Purdy MD, [address] [place] [address] Radiation Oncology 10/18/21 Ski Lift Mechanic Relationship Specialty Start Date End Date Ashley Parikh MD [address] [place] [address] PCP - General Internal Medicine 04/08/19 Mariano Purdy MD, [address] [place] [address] Radiation Oncology 10/18/21 Comfort Davila RN Specialty [employer] Coach Oncology 11/07/21 Kingsley Washburn, DO [address] [place] [address] Hematology/Oncology 11/29/21 Ski Lift Mechanic Relationship Specialty Start Date End Date Ashley Parikh MD [address] [place] [address] PCP - General Internal Medicine 04/08/19 Mariano Purdy MD, [address] [place] [address] Radiation Oncology 10/18/21 Comfort Davila RN Specialty [employer] Coach Oncology 11/07/21 Kingsley Washburn, DO [address] [place] [address] Hematology/Oncology 11/29/21 Ski Lift Mechanic Relationship Specialty Start Date End Date Ashley Parikh MD [address] [place] [address] PCP - General Internal Medicine 04/08/19 Mariano Purdy MD, [address] [place] [address] Radiation Oncology 10/18/21 Comfort Davila RN Specialty [employer] Coach Oncology 11/07/21 Kingsley Washburn, DO [address] [place] [address] Hematology/Oncology 11/29/21 Ski Lift Mechanic Relationship Specialty Start Date End Date Ashley Parikh MD [address] [place] [address] PCP - General Internal Medicine 04/08/19 Mariano Purdy MD, [address] [place] [address] Radiation Oncology 10/18/21 Comfort Davila RN Specialty [employer] Coach Oncology 11/07/21 Kingsley Washburn, DO [address] [place] [address] Hematology/Oncology 11/29/21 Ski Lift Mechanic Relationship Specialty Start Date End Date Ashley Parikh MD [address] [place] [address] PCP - General Internal Medicine 04/08/19 Mariano Purdy MD, [address] [place] [address] Radiation Oncology 10/18/21 Comfort Davila RN Specialty Online [employer] Coach Oncology 11/07/21 Kingsley Washburn, DO [address] [place] [address] Hematology/Oncology 11/29/21 Ski Lift Mechanic Relationship Specialty Start Date End Date Ashley Parikh MD [address] [place] [address] PCP - General Internal Medicine 04/08/19 Mariano Purdy MD, [address] [place] [address] Radiation Oncology 10/18/21 Comfort Davila RN Specialty Online [employer] Coach Oncology 11/07/21 Kingsley Washburn, DO [address] [place] [address] Hematology/Oncology 11/29/21 Ski Lift Mechanic Relationship Specialty Start Date End Date Ashley Parikh MD [address] [place] [address] PCP - General Internal Medicine 04/08/19 Mariano Purdy MD, [address] [place] [address] Radiation Oncology 10/18/21 Comfort Davila, RN Specialty [employer] Coach Oncology 11/07/21 Kingsley Washburn, DO [address] [place] [address] Hematology/Oncology 11/29/21 Ski Lift Mechanic Relationship Specialty Start Date End Date Ashley Parikh MD [address] [place] [address] PCP - General Internal Medicine 04/08/19 Mariano Purdy MD, [address] [place] [address] Radiation Oncology 10/18/21 Comfort Davila RN Specialty Online [employer] Coach Oncology 11/07/21 Kingsley Washburn, DO [address] [place] [address] Hematology/Oncology 11/29/21 Ski Lift Mechanic Relationship Specialty Start Date End Date Ashley Parikh MD [address] [place] [address] PCP - General Internal Medicine 04/08/19 Mariano Purdy MD, [address] [place] [address] Radiation Oncology 10/18/21 Comfort Davila, RN Specialty [employer] Coach Oncology 11/07/21 Kingsley Washburn, DO [address] [place] [address] Hematology/Oncology 11/29/21 Ski Lift Mechanic Relationship Specialty Start Date End Date Ashley Parikh MD [address] [place] [address] PCP - General Internal Medicine 04/08/19 Mariano Purdy MD, [address] [place] [address] Radiation Oncology 10/18/21 Comfort Davila RN Specialty [employer] Coach Oncology 11/07/21 Kingsley Washburn, DO [address] [place] [address] Hematology/Oncology 11/29/21 Ski Lift Mechanic Relationship Specialty Start Date End Date Ashley Parikh MD [address] [place] [address] PCP - General Internal Medicine 04/08/19 Mariano Purdy MD, [address] [place] [address] Radiation Oncology 10/18/21 Comfort Davila RN Specialty Online [employer] Coach Oncology 11/07/21 Kingsley Washburn, DO [address] [place] [address] Hematology/Oncology 11/29/21 Ski Lift Mechanic Relationship Specialty Start Date End Date Ashley Parikh MD [address] [place] [address] PCP - General Internal Medicine 04/08/19 Mariano Purdy MD, [address] [place] [address] Radiation Oncology 10/18/21 Comfort Davila RN Specialty Online [employer] Coach Oncology 11/07/21 Kingsley Washburn, DO [address] [place] [address] Hematology/Oncology 11/29/21 Ski Lift Mechanic Relationship Specialty Start Date End Date Ashley Parikh MD [address] [place] [address] PCP - General Internal Medicine 04/08/19 Mariano Purdy MD, [address] [place] [address] Radiation Oncology 10/18/21 Comfort Davila, RN Specialty [employer] Coach Oncology 11/07/21 Kingsley Washburn, DO [address] [place] [address] Hematology/Oncology 11/29/21 Ski Lift Mechanic Relationship Specialty Start Date End Date Ashley Parikh MD [address] [place] [address] PCP - General Internal Medicine 04/08/19 Mariano Purdy MD, [address] [place] [address] Radiation Oncology 10/18/21 Comfort Davila RN Specialty [employer] Coach Oncology 11/07/21 Kingsley Washburn, DO [address] [place] [address] Hematology/Oncology 11/29/21 Ski Lift Mechanic Relationship Specialty Start Date End Date Ashley Parikh MD [address] [place] [address] PCP - General Internal Medicine 04/08/19 Mariano Purdy MD, [address] [place] [address] Radiation Oncology 10/18/21 Comfort Davila RN Specialty Online [employer] Coach Oncology 11/07/21 Kingsley Washburn, DO [address] [place] [address] Hematology/Oncology 11/29/21 Ski Lift Mechanic Relationship Specialty Start Date End Date Ashley Parikh MD [address] [place] [address] PCP - General Internal Medicine 04/08/19 Mariano Purdy MD, [address] [place] [address] Radiation Oncology 10/18/21 Comfort Davila RN Specialty Online [employer] Coach Oncology 11/07/21 Kingsley Washburn, DO [address] [place] [address] Hematology/Oncology 11/29/21 Ski Lift Mechanic Relationship Specialty Start Date End Date Ashley Parikh MD [address] [place] [address] PCP - General Internal Medicine 04/08/19 Mariano Purdy MD, [address] [place] [address] Radiation Oncology 10/18/21 Comfort Davila RN Specialty Online [employer] Coach Oncology 11/07/21 Kingsley Washburn, DO [address] [place] [address] Hematology/Oncology 11/29/21 Ski Lift Mechanic Relationship Specialty Start Date End Date Ashley Parikh MD [address] [place] [address] PCP - General Internal Medicine 04/08/19 Mariano Purdy MD, [address] [place] [address] Radiation Oncology 10/18/21 Comfort Davila RN Specialty Online [employer] Coach Oncology 11/07/21 Kingsley Washburn, DO [address] [place] [address] Hematology/Oncology 11/29/21 Ski Lift Mechanic Relationship Specialty Start Date End Date Ashley Parikh MD [address] [place] [address] PCP - General Internal Medicine 04/08/19 Mariano Purdy MD, [address] [place] [address] Radiation Oncology 10/18/21 Comfort Davila RN Specialty Online [employer] Coach Oncology 11/07/21 Kingsley Washburn, DO [address] [place] [address] Hematology/Oncology 11/29/21 Ski Lift Mechanic Relationship Specialty Start Date End Date Ashley Parikh MD [address] [place] [address] PCP - General Internal Medicine 04/08/19 Mariano Purdy MD, [address] [place] [address] Radiation Oncology 10/18/21 Comfort Davila RN Specialty Online [employer] Coach Oncology 11/07/21 Kingsley Washburn, DO [address] [place] [address] Hematology/Oncology 11/29/21 Ski Lift Mechanic Relationship Specialty Start Date End Date Ashley Parikh MD [address] [place] [address] PCP - General Internal Medicine 04/08/19 Mariano Purdy MD, [address] [place] [address] Radiation Oncology 10/18/21 Comfort Davila RN Specialty Online [employer] Coach Oncology 11/07/21 Kingsley Washburn, DO [address] [place] [address] Hematology/Oncology 11/29/21 Ski Lift Mechanic Relationship Specialty Start Date End Date Ashley Parikh MD [address] [place] [address] PCP - General Internal Medicine 04/08/19 Mariano Purdy MD, [address] [place] [address] Radiation Oncology 10/18/21 Comfort Davila RN Specialty Online [employer] Coach Oncology 11/07/21 Kingsley Washburn DO [address] [place] [address] Hematology/Oncology 11/29/21 Ski Lift Mechanic Relationship Specialty Start Date End Date Ashley Parikh MD [address] [place] [address] PCP - General Internal Medicine 04/08/19 Mariano Purdy MD, [address] [place] [address] Radiation Oncology 10/18/21 Comfort Davila RN Specialty Online [employer] Coach Oncology 11/07/21 Kingsley Washburn DO [address] [place] [address] Hematology/Oncology 11/29/21 Ski Lift Mechanic Relationship Specialty Start Date End Date Ashley Parikh MD [address] [place] [address] PCP - General Internal Medicine 04/08/19 Mariano Purdy MD, [address] [place] [address] Radiation Oncology 10/18/21 Comfort Davila RN Specialty Online [employer] F[employer] Coach Oncology 11/07/21 Kingsley Washburn DO [address] [place] [address] Hematology/Oncology 11/29/21 Ski Lift Mechanic Relationship Specialty Start Date End Date Ashley Parikh MD [address] [place] [address] PCP - General Internal Medicine 04/08/19 Mariano Purdy MD, [address] [place] [address] Radiation Oncology 10/18/21 Comfort Davila RN Specialty Online [employer] Coach Oncology 11/07/21 Kingsley Washburn DO [address] [place] [address] Hematology/Oncology 11/29/21 Ski Lift Mechanic Relationship Specialty Start Date End Date Ashley Parikh MD [address] [place] [address] PCP - General Internal Medicine 04/08/19 Mariano Purdy MD, [address] [place] [address] Radiation Oncology 10/18/21 Comfort Davila RN Specialty Online [employer] Coach Oncology 11/07/21 Kingsley Washburn DO [address] [place] [address] Hematology/Oncology 11/29/21 Ski Lift Mechanic Relationship Specialty Start Date End Date Ashley Parikh MD [address] [place] [address] PCP - General Internal Medicine 04/08/19 Mariano Purdy MD, [address] [place] [address] Radiation Oncology 10/18/21 Comfort Davila RN Specialty Online [employer] Coach Oncology 11/07/21 Kingsley Washburn DO [address] [place] [address] Hematology/Oncology 11/29/21 Ski Lift Mechanic Relationship Specialty Start Date End Date Ashley Parikh MD [address] [place] [address] PCP - General Internal Medicine 04/08/19 Mariano Purdy MD, [address] [place] [address] Radiation Oncology 10/18/21 Comfort Davila RN Specialty Online [employer] Coach Oncology 11/07/21 Kingsley Washburn DO [address] [place] [address] Hematology/Oncology 11/29/21 Ski Lift Mechanic Relationship Specialty Start Date End Date Ashley Parikh MD [address] [place] [address] PCP - General Internal Medicine 04/08/19 Mariano Purdy MD, [address] [place] [address] Radiation Oncology 10/18/21 Comfort Davila RN Specialty Online [employer] Coach Oncology 11/07/21 Kingsley Washburn DO [address] [place] [address] Hematology/Oncology 11/29/21 Ski Lift Mechanic Relationship Specialty Start Date End Date Ashley Parikh MD [address] [place] [address] PCP - General Internal Medicine 04/08/19 Mariano Purdy MD, [address] [place] [address] Radiation Oncology 10/18/21 Comfort Davila RN Specialty Online [employer] F[employer] Coach Oncology 11/07/21 Kingsley Washburn DO [address] [place] [address] Hematology/Oncology 11/29/21 Ski Lift Mechanic Relationship Specialty Start Date End Date Ashley Parikh MD [address] [place] [address] PCP - General Internal Medicine 04/08/19 Mariano Purdy MD, [address] [place] [address] Radiation Oncology 10/18/21 Comfort Davila RN Specialty Online [employer] Coach Oncology 11/07/21 Kingsley Washburn DO [address] [place] [address] Hematology/Oncology 11/29/21 Ski Lift Mechanic Relationship Specialty Start Date End Date Ashley Parikh MD [address] [place] [address] PCP - General Internal Medicine 04/08/19 Mariano Purdy MD, [address] [place] [address] Radiation Oncology 10/18/21 Comfort Davila RN Specialty Online [employer] F[employer] Coach Oncology 11/07/21 Kingsley Washburn DO [address] [place] [address] Hematology/Oncology 11/29/21 Ski Lift Mechanic Relationship Specialty Start Date End Date Ashley Parikh MD [address] [place] [address] PCP - General Internal Medicine 04/08/19 Mariano Purdy MD, [address] [place] [address] Radiation Oncology 10/18/21 Comfort Davila RN Specialty Online [employer] And Fitness Coach Oncology 11/07/21 Kingsley Washburn DO [address] [place] [address] Hematology/Oncology 11/29/21 Ski Lift Mechanic Relationship Specialty Start Date End Date Ashley Parikh MD [address] [place] [address] PCP - General Internal Medicine 04/08/19 Mariano Purdy MD, [address] [place] [address] Radiation Oncology 10/18/21 Comfort Davila RN Specialty Online [employer] And Fitness Coach Oncology 11/07/21 Kingsley Washburn DO [address] [place] [address] Hematology/Oncology 11/29/21 Ski Lift Mechanic Relationship Specialty Start Date End Date Ashley Parikh MD [address] [place] [address] PCP - General Internal Medicine 04/08/19 Mariano Purdy MD, [address] [place] [address] Radiation Oncology 10/18/21 Comfort Davila RN Specialty Online [employer] And Fitness Coach Oncology 11/07/21 Kingsley Washburn DO [address] [place] [address] Hematology/Oncology 11/29/21 Ski Lift Mechanic Relationship Specialty Start Date End Date Ashley Parikh MD [address] [place] [address] PCP - General Internal Medicine 04/08/19 Mariano Purdy MD, [address] [place] [address] Radiation Oncology 10/18/21 Comfort Davila RN Specialty Online Health And Fitness Coach Oncology 11/07/21 Kingsley Washburn DO [address] [place] [address] Hematology/Oncology 11/29/21 FOR RECORDS PERTAINING TO PATIENTS WHO ARE OR HAVE BEEN ENROLLED IN A CHEMICAL DEPENDENCY/SUBSTANCEABUSE PROGRAM, SOME INFORMATION MAY BE OMITTED. This clinical summary was aggregated from multiple sources. Caution should be exercised in using it in the provision of clinical care. This summary normalizes information from multiple sources, and as a consequence, information in this document may materially change the coding, format and clinical context of patient data. In addition, data may be omitted in some cases. CLINICAL DECISIONS SHOULD BE BASED ON THE PRIMARY CLINICAL RECORDS. [facility]. provides no warranty or guarantee of the accuracy or completeness of information in this document.
[2023-02-16] MEDS: Budesonide Respules 0.5 MG/2 ML AMPUL.NEB. INHALATION (20:43)
[2023-02-16] MEDS: 0.9% Normal Saline (1000mL) 1,000 ML 100 ML IV (20:43)
[2023-02-16] MEDS: Menthol/Lanolin/Calamine/Znox 113 GM Tube 1 APPLIC TOPICAL (21:25)
[2023-02-16] MEDS: MELATONIN 10 MG TABLET PO (21:26)
[2023-02-16] MEDS: Pantoprazole Sodium 40 MG Tablet PO (21:26)
[2023-02-16] MEDS: Heparin Injection (Vial) 5,000 UNIT/ML VIAL 5000 UNIT SC (21:26)
[2023-02-16] MEDS: Acetaminophen 325 MG Tablet 650 MG PO (21:26)
[2023-02-16] MEDS: Atorvastatin Calcium 40 MG Tablet PO (21:26)
[2023-02-17] VITALS (8 sets, daily range): BP systolic 116–140; BP diastolic 58–75; PULSE 50–70; RESP 16–18; TEMP 36.6–37.1; O2SAT 94–100; BMI 25.7
[2023-02-17] MEDS: Potassium Chloride Oral Tablet 20 MEQ PO (07:52)
[2023-02-17] MEDS: Menthol/Lanolin/Calamine/Znox 113 GM Tube 1 APPLIC TOPICAL ×2 (07:52→22:06)
[2023-02-17] MEDS: Heparin Injection (Vial) 5,000 UNIT/ML VIAL 5000 UNIT SC ×2 (07:53→22:06)
[2023-02-17] MEDS: Tolterodine Tartrate 2 MG CAP.SA PO (07:53)
[2023-02-17] MEDS: Citalopram 40 MG TABLET PO (07:53)
[2023-02-17] MEDS: buPROPion 100 MG Tablet PO (07:54)
[2023-02-17] MEDS: Pantoprazole Sodium 40 MG Tablet PO ×2 (07:54→22:07)
[2023-02-17 07:55] LABS: Absolute Lymphocyte Count 1.53 X10^3/uL (0.83-4.51); Absolute Neutrophil Count 3.1 X10^3/uL (2.0-7.7); Basophil# 0.03 X10^3/uL; Basophil% 0.6 % (0-1); Eosinophil# 0.15 X10^3/uL; Eosinophils% 2.9 % (0-5); Hemoglobin 9.8 g/dL (12.0-15.0); Lymphocyte # 1.53 X10^3/ul (0.83-4.51); Lymphocyte % 29.1 % (19-41); Mean Corp Hgb Conc 29.7 g/dL (32-36); Mean Corpuscular Hgb 26.2 pg (27.0-32.0); Mean Corpuscular Volume 88.2 fL (81-99); Mean Platelet Vol. 10.1 fl (6.2-12.0); Monocyte# 0.47 X10^3/uL; NRBC Flagged by Analyzer 0 % (0-5); Neutrophil # 3.05 X10^3/uL (2.7-7.7); Platelet Count 182 K/mm3 (150-450); RBC Distribution Width CV 18.4 % (11.6-14.6); RBC Distribution Width SD 59.5 fl (35.1-43.9); Red Blood Count 3.74 M/mm3 (4.2-5.4); White Blood Count 5.3 K/mm3 (4.4-11.0)
[2023-02-17] MEDS: Budesonide Respules 0.5 MG/2 ML AMPUL.NEB. INHALATION ×2 (08:18→20:13)
[2023-02-17 08:57] LABS: ALB/GLOB Ratio 0.7 RATIO (0.9-2.4); AST(SGOT) 16 U/L (15-37); Alanine Aminotransfer ALT/SGPT 10 U/L (13-56); Albumin, Serum 2.4 g/dL (3.2-5.0); Alkaline Phosphatase 131 U/L (45-117); Anion Gap 1 (5-15); BUN 24 mg/dL (7-18); BUN/Creat Ratio 19.4 RATIO (10-20); Calcium,Total 8.3 mg/dL (8.5-10.1); Chloride 117 mmol/L (98-107); Creatinine, Serum 1.24 mg/dL (0.55-1.02); EST Glomerular Filtration Rate 45 mL/min (>60); Est Glom Filt Rate - Afr Amer 54 mL/min (>60); Estimated Creatinine Clearance 28.16 ml/min; Globulin 3.4 g/dL (2.2-4.2); Glucose 105 mg/dL (74-106); Potassium 4.7 mmol/L (3.5-5.1); Protein, Total 5.8 g/dL (6.4-8.2); Sodium Level 145 mmol/L (136-145)
--- NOTE | 2023-02-17 12:15 | CASEMGMT ---
Readmission Note: Index: 01/25/23-01/29/23. Dx: FTT, Falls, Progressive decline, [place] Readmission: 02/16/23. Dx: Encephalopathy, UTI, KRISTIN, Hypotension Pt with Chronic Diastolic HF, Anxiety and Depression, Chronic anemia, COPD, CVA/TIA, Carotid artery stenosis, Rectal CA, Thyroid CA s/p resection with resulting hypothyroidism, JAIME, CAD s/p PCI and CABG x 3, and Tobacco use was admitted on the above noted dates for the corresponding dx?s. The pt DC plan on index admission was to wean off of her lorazepam over several weeks. Per the provider note, Dr. Malone also DC her gabapentin and trazodone. Pt appeared much more alert at time of DC. Pt was also to complete a full course of levofloxacin. Pt was DC from the floor and was admitted to the TCU and was subsequently DC on 02/14/23. Pt was then readmitted to the hospital with increased lethargy and difficultly to arouse. Pt is to receive IVFs and continue ATBs. Pt also has cultures pending. Face to face assessment with pt and pt daughter (Santa Kim) at this time. Pt is A&Ox3 and is able to answer all of my questions appropriately. Per the pt and pt daughter, the pt was DC to TCU where she continued her ATB treatment. The pt was DC on 02/14 to home with [facility]. The pt daughter did tell this RN CM that she manages the pt meds and continued to give her Ativan, Gabapentin, and Trazodone. It appears there may have been a communication issue regarding these discontinued medications. This RN CM updated Dr. Hong. The pt and pt daughter state they are wanting to DC home with when medically ready. They state the home is entirely handicap incorporated. The daughter lives with the pt and cares for all of the IADLs. The daughter drives. We will see how the pt does with therapy and continue to monitor. Wen Matt RN, CM
[2023-02-17] MEDS: Ceftriaxone 1 GM/50 ML BAG IV (12:32)
--- NOTE | 2023-02-17 15:12 | CHAPLAIN ---
Type of Pastoral Visit _x__ Initial Visit ___ Follow-up Visit ___ On-call Visit ___ General Patient Visit ___ Spiritual Assessment ___ Family Conference ___ Bereavement ___ Rapid Response ___ Code Blue ___ Other (describe below) Pastoral Care Referral From ___ Patient ___ Family ___ Nurse ___ Physician ___ Bridge Toll Collector ___ Engraver Rubber _x__ Other (describe below) Sacrament/Intervention _x__ Active listening ___ Anointing ___ Quaker ___ Bereavement ___ Communion ___ Analia exploration ___ ___ Life review _x__ Prayer ___ Reconciliation ___ Sacrament of Sick _x__ Supportive presence ___ Wedding ___ Other (describe below) Pastoral Comments patient was seen in recent admission; pt welcomes the presence and prayers of the mems integration engineer; daughter was also in the room at beginning of visit but needed to depart for school age son
--- NOTE | 2023-02-17 18:25 | PN.HOSP_ITS ---
Reason for Visit Reason for Visit: Diagnoses Urinary tract infection, site not specified (02/16/23) Subjective Subjective Patient sitting up in bed this morning, appears fatigued but making appropriate eye contact, answer questions with short appropriate responses, no acute distress. States she feels improved today from yesterday. Has not tried getting out of bed yet today. Has minimal appetite. Has some discomfort at [facility] site. Has not been able to urinate much at all. Otherwise denies any pain or discomfort. No other acute concerns. Objective Data Objective Data Vital Signs: Vital Signs Temp Pulse Resp BP Pulse Ox O2 Del Method 98.8 F 70 17 128/60 H 95 Room Air 02/17/23 17:47 02/17/23 17:47 02/17/23 17:47 02/17/23 17:47 02/17/23 18:00 02/17/23 18:00 Oxygen Delivery Method Room Air Weight: 59.4 kg Body Mass Index (BMI) 25.7 Intake & Output: Intake and Output for Last 24 Hours 02/15/23 02/16/23 02/17/23 23:59 23:59 23:59 Intake Total 2350 / 2350 1550 / 1550 Output Total 650 / 650 Balance 2350 / 2350 900 / 900 Lab / Micro Data 02/17/23 07:43 02/17/23 07:43 Labs: Laboratory Results - last 24 hr 02/17/23 07:43: WBC 5.3, RBC 3.74 L, Hgb 9.8 L, Hct 33.0 L, MCV 88.2, MCH 26.2 L , MCHC 29.7 L D, RDW Std Deviation 59.5 H, RDW Coeff of John 18.4 H, Plt Count 182, MPV 10.1, Immature Gran % (Auto) 0.400, Neut % (Auto) 58.0, Lymph % (Auto) 29.1, [place] % (Auto) 9.0, Eos % (Auto) 2.9, Baso % (Auto) 0.6, Absolute Neuts (auto) 3.1, Absolute Lymphs (auto) 1.53, Nucleated RBC % 0, Sodium 145, Potassium 4.7, Chloride 117 H, Carbon Dioxide 27.0, Anion Gap 1 L, BUN 24 H, Creatinine 1.24 H, Estim Creat Clear Calc 28.16, Est GFR (MDRD) Af Amer 54 L, Est GFR (MDRD) Non-Af 45 L, BUN/Creatinine Ratio 19.4, Glucose 105, Calcium 8.3 L, Total Bilirubin 0.30, AST 16, ALT 10 L, Alkaline Phosphatase 131 H, Total Protein 5.8 L, Albumin 2.4 L, Globulin 3.4, Albumin/Globulin Ratio 0.7 L Micro: Microbiology 02/16/23 14:05 Blood Culture (Wb) - Left Forearm Bacteria Detection (PCR) - Preliminary Coag Negative Staph 02/16/23 14:05 Blood Culture (Wb) - Left Forearm Blood Culture - Preliminary 02/16/23 14:13 Urine Catheter - Catheter Urine Culture - Preliminary Alpha hemolytic organism 02/16/23 14:27 Mucosa - Nose SARS-CoV-2, Influenza & RSV (PCR) - Final Physical Exam Const alert, no apparent distress and average body habitus Constitutional Narrative: Elderely female, chronically ill-appearing, fatigued, sitting up in bed, no acute distress. General Appearance: cooperative and comfortable HEENT normocephalic, head/scalp atraumatic, hearing grossly normal bilaterally, nasal mucous membranes and turbinates normal and moist oral mucous membranes Eyes PERRL, EOMs intact bilaterally and conjunctivae normal Neck full ROM, no lymphadenopathy and supple Lymph Lymphatic: no lymphadenopathy noted Chest inspection of chest normal Resp normal respiratory effort, normal air movement, no use of accessory muscles and clear to auscultation bilaterally Cardio regular rate, regular rhythm, no murmurs and peripheral pulses 2+ throughout GI normal to inspection, nondistended, normoactive bowel sounds, soft to palpation, non-tender and non-distended Back/Spine normal ROM Extremity normal to inspection, full ROM and no pedal edema Skin no rashes or lesions noted Neuro no focal motor deficits and no sensory deficits noted Speech: speech normal Assessment & Plan Assessment/Plan (1) Adult failure to thrive: (2) Acute kidney injury: PLAN: Plan Patient is a 77yo female who presented to [facility] on 02/16/2023 with worsening confusion and decreased responsiveness at home. 1. Adult failure to thrive with frequent mechanical falls - Patient very dry on admission with severe prerenal KRISTIN, along with altered mentation and decreased responsiveness. Dc'ed home from TCU on 02/14, lives at [facility] with daughter, HHC also set up for patient. Have high concern that patient was not eating and drinking much at all post-discharge from TCU. Also appears that she was restarted inappropriately on previous meds of Ativan, trazodone and gabapentin that were supposed to be discontinued on discharge from TCU, presumably causing AMS as noted below. PT/OT/CM consulted. 2. Altered mental status, improving - Highest concern is overmedication at home with Ativan, trazodone and gabapentin restarted after discharge from TCU. Much improved on hospital day 2. Holding all of these medications. UDS ordered. Monitor for signs of BZD withdrawal. 3. KRISTIN, improving - Cr 3.64 on admit, baseline Cr 0.7-1.0. Cr much improved to 1.24 on 02/17 after IV fluids. Monitor BMP and UOP. 4. Concern for UTI - UA on admit showed 500 leukocyte esterase, negative nitrites, +2 bacteria. Urine cx pending. Continue ceftriaxone for now. 5. Recent staphylococcal MSSA and streptococcal pneumonia, resolved - Completed course of levaquin on previous admission with good resolution. CXR on admit with no acute findings. Chronic medical conditions: - CAD s/p CABG and stenting, HTN, HLD: Continue home plavix, atorvastatin. Holding atenolol and lisinopril for now, restart as able. - Anxiety/depression: Continue home bupropion and citalopram. Discontinued ativan as noted above. - H/o thyroid cancer s/p resection with hypothyroidism: Continue home Synthroid. - Overactive bladder: Continue home med. - GERD: Continue home PPI. - Chronic diastolic CHF: Last echo 04/21/2022 with normal LV size, normal LV systolic function, EF 60%, stage II diastolic dysfunction, PASP 50 mmHg with moderate pulmonary hypertension. Holding home lasix for now, restart when able. DVT ppx: heparin subcu Code status: DNRCCA, DNI Expected disposition: SNF vs home with [facility], 2-3 days Total clinical time spent by myself addressing the patient's medical issues, reviewing all the data, and collaborating with patient's care team: 35 minutes. Charges/Coding Visit Charges Inpatient E&M: 26823 Subs Hosp L2
[2023-02-17] MEDS: Atorvastatin Calcium 40 MG Tablet PO (22:06)
[2023-02-17] MEDS: MELATONIN 10 MG TABLET PO (22:07)
[2023-02-18 03:58] VITALS: BP 142/48; PULSE 65; RESP 16; TEMP 36.6; O2SAT 99
[2023-02-18 06:00] VITALS: BMI 25.6
[2023-02-18 06:50] LABS: Amphetamine Urine VISTA NEGATIVE (<1000 ng/mL); Barbiturate Urine VISTA NEGATIVE (< 200 ng/mL); Benzodiazepine Urine VISTA NEGATIVE (< 200 ng/mL); Cocaine Urine VISTA NEGATIVE (< 300 ng/mL); Ecstacy Urine VISTA POSITIVE (< 500 ng/mL); Methadone Urine VISTA NEGATIVE (< 300 ng/mL); PCP Urine VISTA NEGATIVE (< 25 ng/mL); THC Urine VISTA NEGATIVE (< 50 ng/mL); Vista UDS pH Range 5
[2023-02-18 07:33] LABS: Hematocrit 31.6 % (37-47); Mean Corp Hgb Conc 31.6 g/dL (32-36); Mean Corpuscular Volume 85.2 fL (81-99); Mean Platelet Vol. 10.1 fl (6.2-12.0); Platelet Count 178 K/mm3 (150-450); RBC Distribution Width CV 17.6 % (11.6-14.6); RBC Distribution Width SD 55.4 fl (35.1-43.9); Red Blood Count 3.71 M/mm3 (4.2-5.4); White Blood Count 4.8 K/mm3 (4.4-11.0)
[2023-02-18 07:55] VITALS: O2SAT 94
[2023-02-18 08:14] LABS: Anion Gap 3 (5-15); BUN 15 mg/dL (7-18); BUN/Creat Ratio 17.7 RATIO (10-20); Calcium,Total 8.9 mg/dL (8.5-10.1); Chloride 109 mmol/L (98-107); Creatinine, Serum 0.85 mg/dL (0.55-1.02); EST Glomerular Filtration Rate 69 mL/min (>60); Est Glom Filt Rate - Afr Amer 84 mL/min (>60); Estimated Creatinine Clearance 46.13 ml/min; Glucose 92 mg/dL (74-106); Potassium 4.3 mmol/L (3.5-5.1); Sodium Level 141 mmol/L (136-145)
[2023-02-18 08:18] VITALS: BP 139/54; PULSE 69; RESP 18; TEMP 36.8; O2SAT 98
[2023-02-18] MEDS: Potassium Chloride Oral Tablet 20 MEQ PO (08:29)
[2023-02-18] MEDS: Ceftriaxone 1 GM/50 ML BAG IV (10:47)
[2023-02-18] MEDS: 0.9% Saline Lock 10 ML Syringe IV (10:50)
[2023-02-18] MEDS: Menthol/Lanolin/Calamine/Znox 113 GM Tube 1 APPLIC TOPICAL ×2 (10:52→20:13)
[2023-02-18] MEDS: Citalopram 40 MG TABLET PO (10:52)
[2023-02-18] MEDS: Tolterodine Tartrate 2 MG CAP.SA PO (10:53)
[2023-02-18] MEDS: Heparin Injection (Vial) 5,000 UNIT/ML VIAL 5000 UNIT SC ×2 (10:53→20:14)
[2023-02-18] MEDS: Clopidogrel Bisulfate 75 MG Tablet PO (10:53)
[2023-02-18] MEDS: buPROPion 100 MG Tablet PO (10:53)
[2023-02-18] MEDS: Pantoprazole Sodium 40 MG Tablet PO ×2 (10:53→20:14)
[2023-02-18] MEDS: 0.9% Normal Saline (250mL Bag) 250 ML 15 ML IV (10:56)
[2023-02-18 13:46] VITALS: BP 105/45; PULSE 84; RESP 18; TEMP 37.1; O2SAT 96
[2023-02-18] MEDS: Acetaminophen 325 MG Tablet 650 MG PO (13:54)
--- NOTE | 2023-02-18 15:19 | NURSING ---
reviewed student charting
--- NOTE | 2023-02-18 15:36 | PCM.PN.HOSP ---
Reason for Visit Reason for Visit: Diagnoses Acute kidney failure, unspecified (02/16/23) Urinary tract infection, site not specified (02/16/23) Adult failure to thrive (02/16/23) Subjective Subjective Patient seen at bedside this morning. Sitting up in bedside chair, no acute distress. Patient is much more alert and awake this morning than yesterday. Patient states that she feels much improved from admission. At this point, patient feels about back to her baseline and reports her main complaint is that she has more just sitting in the room. She is hoping go home soon. She does feel weak but states this has been fairly consistent for her recently. Denies any acute pain or discomfort currently. No other acute concerns. Objective Data Objective Data Vital Signs: Vital Signs Temp Pulse Resp BP Pulse Ox O2 Del Method 98.8 F 84 18 105/45 L 96 Room Air 02/18/23 13:46 02/18/23 13:46 02/18/23 13:46 02/18/23 13:46 02/18/23 13:46 02/18/23 14:08 Oxygen Delivery Method Room Air Weight: 59.5 kg Body Mass Index (BMI) 25.6 Intake & Output: Intake and Output for Last 24 Hours 02/16/23 02/17/23 02/18/23 23:59 23:59 23:59 Intake Total 2350 / 2350 1550 / 1550 650.25 / 650.25 Output Total 650 / 650 900 / 900 Balance 2350 / 2350 900 / 900 -249.75 / -249.75 Lab / Micro Data 02/18/23 07:10 02/18/23 07:10 Labs: Laboratory Results - last 24 hr 02/18/23 05:53: Urine Opiates Screen NEGATIVE, Urine Methadone Screen NEGATIVE, Ur Barbiturates Screen NEGATIVE, Ur Phencyclidine Scrn NEGATIVE, Ur Amphetamines Screen NEGATIVE, MDMA (Ecstasy) Screen POSITIVE H, U Benzodiazepines Scrn NEGATIVE, Urine Cocaine Screen NEGATIVE, U Cannabinoids Screen NEGATIVE, Ur Drug Screen Comment 02/18/23 07:10: WBC 4.8, RBC 3.71 L, Hgb 10.0 L, Hct 31.6 L, MCV 85.2, MCH 27.0, MCHC 31.6 L D, RDW Std Deviation 55.4 H, RDW Coeff of John 17.6 H, Plt Count 178, MPV 10.1, Sodium 141, Potassium 4.3, Chloride 109 H, Carbon Dioxide 29.0, Anion Gap 3 L, BUN 15, Creatinine 0.85, Estim Creat Clear Calc 46.13, Est GFR (MDRD) Af Amer 84, Est GFR (MDRD) Non-Af 69, BUN/Creatinine Ratio 17.7, Glucose 92, Calcium 8.9 Micro: Microbiology 02/16/23 15:11 Blood Culture (Wb) - Right Wrist Blood Culture - Preliminary No growth in 48 hours. 02/16/23 14:13 Urine Catheter - Catheter Urine Culture - Preliminary Gram positive cyn 02/16/23 14:05 Blood Culture (Wb) - Left Forearm Bacteria Detection (PCR) - Final Coag Negative Staph 02/16/23 14:05 Blood Culture (Wb) - Left Forearm Blood Culture - Preliminary Coag Negative Staph 02/16/23 14:27 Mucosa - Nose SARS-CoV-2, Influenza & RSV (PCR) - Final Physical Exam Const alert, no apparent distress and average body habitus Constitutional Narrative: Elderely female, sitting in bedside chair, much more awake and alert this morning, conversing normally, no acute distress. General Appearance: cooperative and comfortable HEENT normocephalic, head/scalp atraumatic, hearing grossly normal bilaterally, nasal mucous membranes and turbinates normal and moist oral mucous membranes Eyes PERRL, EOMs intact bilaterally and conjunctivae normal Neck full ROM, no lymphadenopathy and supple Lymph Lymphatic: no lymphadenopathy noted Chest inspection of chest normal Resp normal respiratory effort, normal air movement, no use of accessory muscles and clear to auscultation bilaterally Cardio regular rate, regular rhythm, no murmurs and peripheral pulses 2+ throughout GI normal to inspection, nondistended, normoactive bowel sounds, soft to palpation, non-tender and non-distended Back/Spine normal ROM Extremity normal to inspection, full ROM and no pedal edema Skin no rashes or lesions noted Neuro no focal motor deficits and no sensory deficits noted Speech: speech normal Psych affect normal Assessment & Plan Assessment/Plan (1) Adult failure to thrive: (2) Acute kidney injury: PLAN: Plan Patient is a 77yo female who presented to [facility] on 02/16/2023 with worsening confusion and decreased responsiveness at home. 1. Adult failure to thrive with frequent mechanical falls - Patient very dry on admission with severe prerenal KRISTIN, along with altered mentation and decreased responsiveness. Dc'ed home from TCU on 02/14, lives at home with daughter, [facility] also set up for patient. Seems most likely that patient was oversedated at home after restarting Ativan, trazodone and gabapentin after discharge from TCU, and consequently was not eating and drinking much at all after leaving TCU. PT/OT/case management consulted. Planning for home with home health care on discharge. 2. Altered mental status, improving - Seems most likely secondary to overmedication at home. Patient was previously on trazodone, gabapentin and Ativan prior to recent admission in January. The trazodone and gabapentin were discontinued, and patient was started on an Ativan taper. Per Dr. Silva's discharge note from 02/12, appears that patient was continued on Ativan 1 mg 3 times daily as needed on discharge though she should have been on the lower dose by that point. Per daughter, patient restarted trazodone and gabapentin along with Ativan after leaving the TCU. For unclear reasons, urine drug screen on 02/17 was negative for benzodiazepines. Patient currently off Ativan, trazodone and gabapentin. Not having any symptoms of benzodiazepine withdrawal. Will hold these medications on discharge and strongly recommend not continuing these going forward. 3. KRISTIN, resolved - Cr 3.64 on admit, baseline Cr 0.7-1.0. Resolved by 02/18 after IV fluids. 4. Concern for UTI - UA on admit showed 500 leukocyte esterase, negative nitrites, +2 bacteria. Urine cx pending. Continue ceftriaxone for now. 5. Recent staphylococcal MSSA and streptococcal pneumonia, resolved - Completed course of levaquin on previous admission with good resolution. CXR on admit with no acute findings. Chronic medical conditions: - CAD s/p CABG and stenting, HTN, HLD: Continue home plavix, atorvastatin. Holding atenolol and lisinopril for now, restart as able. - Anxiety/depression: Continue home bupropion and citalopram. Discontinued ativan as noted above. - H/o thyroid cancer s/p resection with hypothyroidism: Continue home Synthroid. - Overactive bladder: Continue home med. - GERD: Continue home PPI. - Chronic diastolic CHF: Last echo 04/21/2022 with normal LV size, normal LV systolic function, EF 60%, stage II diastolic dysfunction, PASP 50 mmHg with moderate pulmonary hypertension. Holding home lasix for now, restart when able. DVT ppx: heparin subcu Code status: DNRCCA, DNI Expected disposition: Home with home health care, 1 to 2 days Total clinical time spent by myself addressing the patient's medical issues, reviewing all the data, and collaborating with patient's care team: 35 minutes. Charges/Coding Visit Charges Inpatient E&M: 40403 Subs Hosp L2
[2023-02-18 19:54] VITALS: PULSE 56; RESP 16
[2023-02-18] MEDS: Budesonide Respules 0.5 MG/2 ML AMPUL.NEB. INHALATION (19:54)
[2023-02-18 20:12] VITALS: BP 152/58; PULSE 63; RESP 18; TEMP 36.6; O2SAT 95
[2023-02-18] MEDS: Atorvastatin Calcium 40 MG Tablet PO (20:14)
[2023-02-18] MEDS: MELATONIN 10 MG TABLET PO (20:14)
[2023-02-19] VITALS (12 sets, daily range): BP systolic 98–176; BP diastolic 46–75; PULSE 65–96; RESP 16–18; TEMP 36.6–37.4; O2SAT 93–99; BMI 25.6
[2023-02-19] MEDS: Ondansetron 4 MG/2 ML Vial IV (07:33)
[2023-02-19] MEDS: hydrALAZINE 20 MG/ML Vial 10 MG IV (07:34)
--- NOTE | 2023-02-19 08:05 | NURSING ---
Pt daughter called and was upset that no one called her with a update yesterday. nursing talked with daughter and update given to her. daughter stated she does not understand why her mother gets a uti after every stay at [facility]. she also stated that she was discharged and no one explained that there was an antibiotic sent to [facility] and it was the weekend and they were unable to pick up attendant antibiotic. she stated mother almost . offered daughter the patient advocate number but daughter hung up phone
[2023-02-19] MEDS: Tolterodine Tartrate 2 MG CAP.SA PO (08:11)
[2023-02-19] MEDS: Citalopram 40 MG TABLET PO (08:11)
[2023-02-19] MEDS: Pantoprazole Sodium 40 MG Tablet PO ×2 (08:11→22:15)
[2023-02-19] MEDS: Potassium Chloride Oral Tablet 20 MEQ PO (08:11)
[2023-02-19] MEDS: buPROPion 100 MG Tablet PO (08:12)
[2023-02-19] MEDS: Heparin Injection (Vial) 5,000 UNIT/ML VIAL 5000 UNIT SC ×2 (08:12→22:14)
[2023-02-19] MEDS: Menthol/Lanolin/Calamine/Znox 113 GM Tube 1 APPLIC TOPICAL ×2 (08:12→22:14)
[2023-02-19] MEDS: Ceftriaxone 1 GM/50 ML BAG IV (10:39)
--- NOTE | 2023-02-19 11:10 | CASEMGMT ---
[facility] called and notified that the plan is to DC the pt tomorrow.
[2023-02-19] MEDS: LORazepam 1 MG Tablet PO (11:44)
--- NOTE | 2023-02-19 15:47 | PN.HOSP_ITS ---
Reason for Visit Reason for Visit: Diagnoses Acute kidney failure, unspecified (02/16/23) Urinary tract infection, site not specified (02/16/23) Adult failure to thrive (02/16/23) Subjective Subjective Patient seen at bedside this morning. Sitting in bedside chair. Patient appears somewhat more altered this morning, having delayed responses to questioning and appears to have a bilateral hand tremor. States he feels fairly anxious this morning. She has not eaten or drank much today. She denies any acute pain or discomfort. No other acute concerns morning. Had a good discussion over the phone with patient's daughter Santa this aftern oon. Santa states that the patient has been on Ativan for over 30 years. Has also been on gabapentin and trazodone for many years. States his medications have been managed by her PCP and psychiatrist. States patient has had significant trauma in the past with severe anxiety, has generally been stable on this regimen of medications in the past. Santa stated that there was miscommunication between the care team during her last hospitalization and TCU stay with regards to her medications while here. She was unaware that the patient was being tapered off of these medications during that time. She agrees that the patient was likely oversedated from restarting home medications after getting home from the TCU on 02/14. After further discussion, Santa is agreeable to at least decreasing the dosage of these medications as there is concern that they are causing oversedation and possibly hypotension at this time. However, she would like to discuss further changes after hospitalization with patient's PCP and psychiatrist going forward. Santa is agreeable to patient being discharged home tomorrow if she is stable and medically ready for discharge. Objective Data Objective Data Vital Signs: Vital Signs Temp Pulse Resp BP Pulse Ox O2 Del Method 99.3 F H 94 16 110/53 L 98 Room Air 02/19/23 14:41 02/19/23 15:31 02/19/23 14:41 02/19/23 14:41 02/19/23 14:41 02/19/23 14:41 Oxygen Delivery Method Room Air Weight: 59.6 kg Body Mass Index (BMI) 25.6 Intake & Output: Intake and Output for Last 24 Hours 02/17/23 02/18/23 02/19/23 23:59 23:59 23:59 Intake Total 1550 / 1550 1050.25 / 1050.25 300 / 300 Output Total 650 / 650 900 / 900 600 / 600 Balance 900 / 900 150.25 / 150.25 -300 / -300 Lab / Micro Data 02/18/23 07:10 02/18/23 07:10 Micro: Microbiology 02/16/23 14:13 Urine Catheter - Catheter Urine Culture - Final Lactobacillus gasseri 02/16/23 15:11 Blood Culture (Wb) - Right Wrist Blood Culture - Preliminary No growth in 48 hours. 02/16/23 14:05 Blood Culture (Wb) - Left Forearm Bacteria Detection (PCR) - Final Coag Negative Staph 02/16/23 14:05 Blood Culture (Wb) - Left Forearm Blood Culture - Preliminary Coag Negative Staph 02/16/23 14:27 Mucosa - Nose SARS-CoV-2, Influenza & RSV (PCR) - Final Physical Exam Const alert, no apparent distress and average body habitus Constitutional Narrative: Elderely female, sitting in bedside chair, more altered this morning with hand tremor noted, no acute distress. General Appearance: cooperative HEENT normocephalic, head/scalp atraumatic, hearing grossly normal bilaterally, nasal mucous membranes and turbinates normal and moist oral mucous membranes Eyes PERRL, EOMs intact bilaterally and conjunctivae normal Neck full ROM, no lymphadenopathy and supple Lymph Lymphatic: no lymphadenopathy noted Chest inspection of chest normal Resp normal respiratory effort, normal air movement, no use of accessory muscles and clear to auscultation bilaterally Cardio regular rate, regular rhythm, no murmurs and peripheral pulses 2+ throughout GI normal to inspection, nondistended, normoactive bowel sounds, soft to palpation, non-tender and non-distended Back/Spine normal ROM Extremity normal to inspection, full ROM and no pedal edema Skin no rashes or lesions noted Neuro no focal motor deficits and no sensory deficits noted Psych Mood & Affect: anxious Assessment & Plan Assessment/Plan (1) Adult failure to thrive: (2) Acute kidney injury: PLAN: Plan Patient is a 77yo female who presented to [facility] on 02/16/2023 with worsening confusion and decreased responsiveness at home. 1. Adult failure to thrive with frequent mechanical falls - Patient very dry on admission with severe prerenal KRISTIN, along with altered mentation and decreased responsiveness. Dc'ed home from TCU on 02/14, lives at home with daughter, HHC also set up for patient. Seems most likely that patient was oversedated at home after restarting Ativan, trazodone and gabapentin after discharge from TCU, and consequently was not eating and drinking much at all after leaving TCU. PT/OT/case management consulted. Planning for home with [facility] on discharge. 2. Altered mental status, improving; suspected mild benzodiazepine withdrawal Oversedation leading to admission very likely due to overmedication at home after restarting trazodone, gabapentin and Ativan that were being tapered during previous hospitalization and TCU stay. All these medications were held on this admission. Patient developed symptoms on 02/19 that seemed fairly consistent with benzodiazepine withdrawal, and symptoms improved with a dose of Ativan. ? Will start Ativan 0.5 mg 3 times daily scheduled and plan to discharge patient home on this regimen. Will continue to hold trazodone and gabapentin while here. Recommended to family that if they restart trazodone and gabapentin for her that they consider decreasing the dosage. Recommended close outpatient follow-up with patient's PCP and psychiatrist. 3. KRISTIN, resolved - Cr 3.64 on admit, baseline Cr 0.7-1.0. Resolved by 02/18 after IV fluids. 4. Concern for UTI - UA on admit showed 500 leukocyte esterase, negative nitrites, +2 bacteria. Urine cx pending. Continue ceftriaxone for now. 5. Recent staphylococcal MSSA and streptococcal pneumonia, resolved - Completed course of levaquin on previous admission with good resolution. CXR on admit with no acute findings. Chronic medical conditions: - CAD s/p CABG and stenting, HTN, HLD: Continue home plavix, atorvastatin. Holding atenolol and lisinopril for now, restart as able. - Anxiety/depression: Continue home bupropion and citalopram. Discontinued ativan as noted above. - H/o thyroid cancer s/p resection with hypothyroidism: Continue home Synthroid. - Overactive bladder: Continue home med. - GERD: Continue home PPI. - Chronic diastolic CHF: Last echo 04/21/2022 with normal LV size, normal LV systolic function, EF 60%, stage II diastolic dysfunction, PASP 50 mmHg with moderate pulmonary hypertension. Holding home lasix for now, restart when able. DVT ppx: heparin subcu Code status: DNRCCA, DNI Expected disposition: Home with home health care, 1 to 2 days Total clinical time spent by myself addressing the patient's medical issues, reviewing all the data, and collaborating with patient's care team: 35 minutes. Charges/Coding Visit Charges Inpatient E&M: 02645 Subs Hosp L2
--- NOTE | 2023-02-19 15:57 | NURSING ---
pt daughter jai called the service secretary upset and stated that we were not giving her mediation that she needs and she was going to call the police and come to the hospital and go postal . security called and [facility] chief growth officer came to floor. nursing informed police what jai stated. police called jai and spoke with her. floor placed on lockdown.
[2023-02-19] MEDS: Budesonide Respules 0.5 MG/2 ML AMPUL.NEB. INHALATION (20:05)
[2023-02-19] MEDS: LORazepam 0.5 MG Tablet PO (22:13)
[2023-02-19] MEDS: Atorvastatin Calcium 40 MG Tablet PO (22:14)
[2023-02-19] MEDS: MELATONIN 10 MG TABLET 5 MG PO (22:15)
[2023-02-19] MEDS: Acetaminophen 325 MG Tablet 650 MG PO (22:41)
[2023-02-20] MEDS: LORazepam 0.5 MG Tablet PO ×2 (05:18→14:38)
[2023-02-20 05:20] VITALS: BP 164/72; PULSE 64; RESP 18; TEMP 36.5; O2SAT 98
[2023-02-20 06:00] VITALS: BMI 25.8
[2023-02-20 06:55] VITALS: O2SAT 95
[2023-02-20 09:37] VITALS: BP 133/71; PULSE 80; RESP 16; TEMP 36.8; O2SAT 100
[2023-02-20] MEDS: Potassium Chloride Oral Tablet 20 MEQ PO (09:52)
[2023-02-20] MEDS: Pantoprazole Sodium 40 MG Tablet PO (09:53)
[2023-02-20] MEDS: Tolterodine Tartrate 2 MG CAP.SA PO (09:53)
[2023-02-20] MEDS: Citalopram 40 MG TABLET PO (09:53)
[2023-02-20] MEDS: buPROPion 100 MG Tablet PO (09:53)
[2023-02-20] MEDS: 0.9% Saline Lock 10 ML Syringe IV (09:53)
[2023-02-20] MEDS: Heparin Injection (Vial) 5,000 UNIT/ML VIAL 5000 UNIT SC (09:53)
[2023-02-20] MEDS: Clopidogrel Bisulfate 75 MG Tablet PO (09:53)
[2023-02-20] MEDS: Menthol/Lanolin/Calamine/Znox 113 GM Tube 1 APPLIC TOPICAL (09:53)
[2023-02-20] MEDS: Ceftriaxone 1 GM/50 ML BAG IV (09:54)
[2023-02-20] MEDS: Acetaminophen 325 MG Tablet 650 MG PO (10:10)
--- NOTE | 2023-02-20 13:58 | DCINST_ITS ---
Discharge Instructions Diet Discharge Diet: No restrictions Activity Discharge Activity: No Restrictions Weight Bearing Status: Full weight bearing Follow Up Care Test Results: Test results from this visit will be discussed in further detail at your follow- up appointment, if applicable. Discharge Plan Admission Admit Date/Time: 02/16/23 15:25 Primary Reason for Your Visit: Altered mental status Attending Provider: Lul Hong Primary Care Provider: Zully Rojas Consulting Providers: Melany Villafana Discharge Orders/Prescriptions Prescriptions: New lorazepam 0.5 mg Tablet 0.5 mg PO TID 30 Days Qty: 90 0RF Continued albuterol sulfate 0.63 mg/3 mL solution for nebulization 0.63 mg INHALATION Q4H PRN (Reason: Congestion) levothyroxine 75 MCG tablet 75 mcg PO DAILY citalopram 40 mg tablet 40 mg PO DAILY atenolol 50 MG tablet 50 mg PO DAILY atorvastatin 40 MG tablet 40 mg PO QHS bupropion HCl 100 MG tablet 100 mg PO DAILY pantoprazole 40 MG tablet 40 mg PO BID oxybutynin chloride 5 mg tablet extended release 24hr 5 mg PO DAILY lisinopril 20 mg tablet 20 mg PO DAILY clopidogrel 75 mg tablet 75 mg PO QODAY melatonin 10 mg Tablet, Sublingual 10 mg PO QHS Qty: 0 0RF acetaminophen 500 mg Tablet 1,000 mg PO Q6H PRN (Reason: Pain Score 1-10) Changed furosemide [Lasix] 20 mg tablet 20 mg PO DAILY PRN (Reason: DIURETIC) Qty: 30 0RF Discontinued potassium chloride 20 mEq Tablet,Er Particles/Crystals 20 meq PO DAILYCM 30 Days Qty: 30 0RF lorazepam 1 mg Tablet 1 mg PO DAILY PRN (Reason: ANXIETY ) Referrals / Follow Up: Zully Rojas MD [Primary Care Provider] - Disposition Disposition (needs filled in before D/C Order can be placed): Home Health Service
--- NOTE | 2023-02-20 14:03 | PCM.DC.SUM ---
Providers Date of Admission: 02/16/23 Date of Discharge: 02/20/23 Primary Care Physician: Dr. Zully Rojas MD Reason For Visit: ENCEPHALOPATHY, UTI, KRISTIN, HYPOTENSION Diagnosis Discharge Diagnosis (1) Adult failure to thrive: Status: Acute Code(s): R62.7 - Adult failure to thrive (2) Acute kidney injury: Status: Resolved Code(s): N17.9 - Acute kidney failure, unspecified (3) Altered mental status: Status: Acute Code(s): R41.82 - Altered mental status, unspecified (4) Anxiety and depression: Status: Acute Code(s): F41.9 - Anxiety disorder, unspecified; F32.9 - Major depressive disorder, single episode, unspecified Medications at Discharge Home Medications levothyroxine 75 mcg tablet 75 mcg PO DAILY THYROID 09/06/17 citalopram 40 mg tablet 40 mg PO DAILY DEPRESSION 12/18/17 atenolol 50 mg tablet 50 mg PO DAILY BLOOD PRESSURE 01/05/18 atorvastatin 40 mg tablet 40 mg PO QHS CHOLESTEROL 01/05/18 albuterol sulfate 0.63 mg/3 mL solution for nebulization 0.63 mg inhalation Q4H PRN Congestion 07/14/18 bupropion HCl 100 mg tablet 100 mg PO DAILY MOOD STABILIZER 01/16/19 pantoprazole 40 mg tablet,delayed release 40 mg PO BID GERD 01/16/19 oxybutynin chloride 5 mg tablet,extended release 24 hr 5 mg PO DAILY BLADDER 10/08/21 lisinopril 20 mg tablet 20 mg PO DAILY BLOOD PRESSURE 04/10/22 clopidogrel 75 mg tablet 75 mg PO QODAY BLOOD THINNER 07/12/22 melatonin 10 mg sublingual tablet 10 mg PO QHS INSOMNIA #0 tabs 02/12/23 acetaminophen 500 mg tablet 1,000 mg PO Q6H PRN Pain Score 1-10 02/16/23 furosemide 20 mg tablet (Lasix) 20 mg PO DAILY PRN DIURETIC #30 tabs 02/20/23 lorazepam 0.5 mg tablet 0.5 mg PO TID 30 days #90 tabs 02/20/23 Hospital Course Operations None Procedures EKG and - (Chest x-ray) Summary of Care Provided Minutes Spent on Discharge: 35 Hospital Course: Patient is a 77yo female who presented to [facility] on 02/16/2023 with worsening confusion and decreased responsiveness at home. Hospital course as noted below. Discharged home with home health care in stable condition on 02/20. 1. Adult failure to thrive with frequent mechanical falls Patient was very dry on admission with severe prerenal KRISTIN along with altered mentation and decreased amounts of this. She notably was discharged home from TCU on 02/14, lives with daughter at home. Seems like the patient was oversedated at home after restarting Ativan, trazodone and gabapentin after discharge from TCU resulting in poor p.o. intake. ? PT/OT/case management consulted. Patient had good recovery with IV fluid resuscitation and medication titration as noted below. Stable for discharge home with home health care on 02/20. 2. Altered mental status, improved; suspected mild benzodiazepine withdrawal Altered mental status was presumed secondary to oversedation from home medications restarted from TCU on 02/14. Had extensive discussions with patient's 2 daughters during his hospitalization. They were very upset that patient's Ativan, trazodone and gabapentin were either discontinued or being weaned during the previous admission and while in the TCU. Stated they were not made aware that these medication changes were being made. Noted that patient follows closely with PCP and psychiatrist, and had been on these medications for many years. Apparently any dosage changes in the past had resulted in mental breakdowns for the patient. Trazodone and gabapentin were held during this admission. Ativan was initially held, however patient developed symptoms on 02/19 that seemed consistent with benzodiazepine withdrawal (tremors, mild tachycardia, worsening mental status). Was given Ativan 1 mg x 1 with improvement in symptoms, however patient's systolic blood pressure dropped approximately 40 mmHg as well. Started patient on Ativan 0.5 mg 3 times daily scheduled after that, and patient tolerated this regimen well. ? Will continue Ativan 0.5 mg 3 times daily on discharge. Held gabapentin and trazodone on discharge. Recommended to family that patient follow-up closely with PCP and psychiatrist following discharge. 3. KRISTIN, resolved Likely secondary to poor p.o. intake following discharge from TCU as noted above. Creatinine 3.64 on admit, baseline creatinine 0.7-1.0. Resolved by 02/18 after IV fluids. 4. Concern for UTI ? UA on admit showed 500 leukocyte esterase, negative nitrates, +2 bacteria. Urine culture grew lactobacillus which was too fastidious for sensitivities. Treated with ceftriaxone during admission, discontinued antibiotics on discharge. 5. Recent staphylococcal MSSA and streptococcal pneumonia, resolved - Completed course of levaquin on previous admission with good resolution. CXR on admit with no acute findings. Chronic medical conditions: - CAD s/p CABG and stenting, HTN, HLD: Continue home plavix, atorvastatin. Held home atenolol and lisinopril during admission, okay to restart on discharge. - Anxiety/depression: Continue home bupropion and citalopram. Continued Ativan at decreased dosage on discharge as noted above. - H/o thyroid cancer s/p resection with hypothyroidism: Continue home Synthroid. - Overactive bladder: Continue home med. - GERD: Continue home PPI. - Chronic diastolic CHF: Last echo 04/21/2022 with normal LV size, normal LV systolic function, EF 60%, stage II diastolic dysfunction, PASP 50 mmHg with moderate pulmonary hypertension. Was on Lasix 20 mg daily on admission, have concern the patient was still being overdiuresed at home. Changed to Lasix 20 mg daily as needed on discharge. Total clinical time spent by myself addressing the patient's discharge needs: 35 minutes. Physical Exam Const alert, no apparent distress and average body habitus Constitutional Narrative: Elderly female, sitting in bedside chair, good mentation, no acute distress. General Appearance: cooperative and comfortable HEENT normocephalic, head/scalp atraumatic, hearing grossly normal bilaterally, nasal mucous membranes and turbinates normal and moist oral mucous membranes Eyes PERRL, EOMs intact bilaterally and conjunctivae normal Neck full ROM, no lymphadenopathy and supple Lymph Lymphatic: no lymphadenopathy noted Chest inspection of chest normal Resp normal respiratory effort, normal air movement, no use of accessory muscles and clear to auscultation bilaterally Cardio regular rate, regular rhythm, no murmurs and peripheral pulses 2+ throughout GI normal to inspection, nondistended, normoactive bowel sounds, soft to palpation, non-tender and non-distended Back/Spine normal ROM Extremity normal to inspection, full ROM and no pedal edema Skin no rashes or lesions noted Neuro no focal motor deficits and no sensory deficits noted Speech: speech normal Psych affect normal Weight / BMI Weight Weight: 60 kg Body Mass Index (BMI) 25.8 ABG / Lab / Microbiology Data 02/18/23 07:10 02/18/23 07:10 Microbiology: Microbiology 02/16/23 14:13 Urine Catheter - Catheter Urine Culture - Final Lactobacillus gasseri 02/16/23 15:11 Blood Culture (Wb) - Right Wrist Blood Culture - Preliminary No growth in 48 hours. 02/16/23 14:05 Blood Culture (Wb) - Left Forearm Bacteria Detection (PCR) - Final Coag Negative Staph 02/16/23 14:05 Blood Culture (Wb) - Left Forearm Blood Culture - Preliminary Coag Negative Staph 02/16/23 14:27 Mucosa - Nose SARS-CoV-2, Influenza & RSV (PCR) - Final D/C Instructions Discharge Diet: No restrictions Weight Bearing Status: Full weight bearing Meaningful Use Info Meaningful Use Diagnoses (Choose all that apply): None applicable Discharge Plan Admission Admit Date/Time: 02/16/23 15:25 Primary Reason for Your Visit: Altered mental status Attending Provider: Lul Hong Primary Care Provider: Zully Rojas Consulting Providers: Melany Villafana Discharge Orders/Prescriptions Prescriptions: New lorazepam 0.5 mg Tablet 0.5 mg PO TID 30 Days Qty: 90 0RF Continued albuterol sulfate 0.63 mg/3 mL solution for nebulization 0.63 mg INHALATION Q4H PRN (Reason: Congestion) levothyroxine 75 MCG tablet 75 mcg PO DAILY citalopram 40 mg tablet 40 mg PO DAILY atenolol 50 MG tablet 50 mg PO DAILY atorvastatin 40 MG tablet 40 mg PO QHS bupropion HCl 100 MG tablet 100 mg PO DAILY pantoprazole 40 MG tablet 40 mg PO BID oxybutynin chloride 5 mg tablet extended release 24hr 5 mg PO DAILY lisinopril 20 mg tablet 20 mg PO DAILY clopidogrel 75 mg tablet 75 mg PO QODAY melatonin 10 mg Tablet, Sublingual 10 mg PO QHS Qty: 0 0RF acetaminophen 500 mg Tablet 1,000 mg PO Q6H PRN (Reason: Pain Score 1-10) Changed furosemide [Lasix] 20 mg tablet 20 mg PO DAILY PRN (Reason: DIURETIC) Qty: 30 0RF Discontinued potassium chloride 20 mEq Tablet,Er Particles/Crystals 20 meq PO DAILYCM 30 Days Qty: 30 0RF lorazepam 1 mg Tablet 1 mg PO DAILY PRN (Reason: ANXIETY ) Referrals / Follow Up: Zully Rojas MD [Primary Care Provider] - Disposition Disposition (needs filled in before D/C Order can be placed): Home Health Service Charges/Coding Visit Charges Inpatient E&M: 77694 Disch Hosp >30min
[2023-02-20 14:37] VITALS: BP 127/60; PULSE 71; RESP 16; TEMP 36.9; O2SAT 97
--- NOTE | 2023-02-20 15:36 | CASEMGMT ---
Pt and pt daughter Santa called and updated that the pt has a DC order in. They have been updated that [facility]. They are agreeable to this and Santa states that she will be driving the pt home at time of DC. They deny any further needs at this time regarding the DC process. Pt daughter and ABRAHAM Kimble called to update on pt status with no answer at this time.
--- NOTE | 2023-02-20 15:40 | PHA.DC_ITS ---
Pharmacy [facility] has performed discharge medication reconciliation and counseling for this patient. The patient's discharge medication list was reviewed for discrepancies and discrepancies were resolved. The patient was counseled on the following discharge medications and changes in medications for homegoing were reviewed. The Reason for Use, instructions for use, and potential side effects were reviewed for all new medications. The patient's questions regarding all of their medications were answered. 1. Lorazepam 1mg PO TID The patient demonstrated some understanding but would benefit from further education and reinforcement. Medications at Discharge Home Medications levothyroxine 75 mcg tablet 75 mcg PO DAILY THYROID 09/06/17 citalopram 40 mg tablet 40 mg PO DAILY DEPRESSION 12/18/17 atenolol 50 mg tablet 50 mg PO DAILY BLOOD PRESSURE 01/05/18 atorvastatin 40 mg tablet 40 mg PO QHS CHOLESTEROL 01/05/18 albuterol sulfate 0.63 mg/3 mL solution for nebulization 0.63 mg inhalation Q4H PRN Congestion 07/14/18 bupropion HCl 100 mg tablet 100 mg PO DAILY MOOD STABILIZER 01/16/19 pantoprazole 40 mg tablet,delayed release 40 mg PO BID GERD 01/16/19 oxybutynin chloride 5 mg tablet,extended release 24 hr 5 mg PO DAILY BLADDER 10/08/21 lisinopril 20 mg tablet 20 mg PO DAILY BLOOD PRESSURE 04/10/22 clopidogrel 75 mg tablet 75 mg PO QODAY BLOOD THINNER 07/12/22 melatonin 10 mg sublingual tablet 10 mg PO QHS INSOMNIA #0 tabs 02/12/23 acetaminophen 500 mg tablet 1,000 mg PO Q6H PRN Pain Score 1-10 02/16/23 furosemide 20 mg tablet (Lasix) 20 mg PO DAILY PRN DIURETIC #30 tabs 02/20/23 lorazepam 0.5 mg tablet 0.5 mg PO TID 30 days #90 tabs 02/20/23
== END 2023-02-20 18:51 | disposition home health service (06) | DRG 918 ==
LOC: ED 15:22 → MS3 15:56
PROVIDERS: Nurse Practitioner; Admitting Provider Family Medicine; Emergency Provider Emergency Medicine; PCP Internal Medicine; Visit Provider Hospitalist
DX: T42.6X1A Poisoning by other antiepileptic and sedative-hypnotic drugs, accidental (unintentional), initial encounter (principal); N17.9 Acute kidney failure, unspecified; I50.32 Chronic diastolic (congestive) heart failure; F13.239 Sedative, hypnotic or anxiolytic dependence with withdrawal, unspecified; N39.0 Urinary tract infection, site not specified; I27.21 Secondary pulmonary arterial hypertension; I11.0 Hypertensive heart disease with heart failure; J44.9 Chronic obstructive pulmonary disease, unspecified; E89.0 Postprocedural hypothyroidism; F32.A Depression, unspecified; D64.9 Anemia, unspecified; F17.210 Nicotine dependence, cigarettes, uncomplicated; E78.5 Hyperlipidemia, unspecified; I25.10 Atherosclerotic heart disease of native coronary artery without angina pectoris; K21.9 Gastro-esophageal reflux disease without esophagitis; F41.9 Anxiety disorder, unspecified; I25.2 Old myocardial infarction; M47.816 Spondylosis without myelopathy or radiculopathy, lumbar region; M99.63 Osseous and subluxation stenosis of intervertebral foramina of lumbar region; I95.2 Hypotension due to drugs; R62.7 Adult failure to thrive; T42.4X1A Poisoning by benzodiazepines, accidental (unintentional), initial encounter; R41.82 Altered mental status, unspecified; B96.89 Other specified bacterial agents as the cause of diseases classified elsewhere; N32.81 Overactive bladder; R29.6 Repeated falls; Z66 Do not resuscitate; Z95.1 Presence of aortocoronary bypass graft; Z95.5 Presence of coronary angioplasty implant and graft; Z68.25 Body mass index [BMI] 25.0-25.9, adult; Z79.02 Long term (current) use of antithrombotics/antiplatelets; Z79.899 Other long term (current) drug therapy; Z85.048 Personal history of other malignant neoplasm of rectum, rectosigmoid junction, and anus; Z85.850 Personal history of malignant neoplasm of thyroid; Z87.01 Personal history of pneumonia (recurrent); Z86.73 Personal history of transient ischemic attack (TIA), and cerebral infarction without residual deficits
CPT/HCPCS: 36415; 71045; 80048; 80053; 80307; 81001; 83605; 84484; 85025; 85027; 85610; 85730; 87040; 87077; 87086; 87088; 87149; 87631; 93005; 94640; 97110; 97116; 97162; 97166; 97530; 97535; 97802; 99285; J7030; J7050; A4216; J2405

== ENCOUNTER → 2023-03-03 | Outpatient (CLI) | payer MEDICARE, SELFPAY ==
[2017-12-28 13:50] VITALS: BMI 29.2
[2023-03-03 17:24] LABS: Color, Urine Yellow (Yellow); Glucose, Dipstick Normal (Normal); Ketone-Dipstick Negative (Negative); Leukocyte Esterase-Dipstick 100 /ul (Negative); Nitrite-Dipstick Negative (Negative); Occult Blood-Urine 10 /ul (Negative); Protein-Dipstick 15 mg/dl (Negative); Urine Bilirubin Dipstick Negative (Negative); Urine Clarity Sl. Cloudy (Clear); Urine Urobilinogen 4 mg/dl (Normal)
== END | disposition home or self-care (01) ==
LOC: LABSPEC 15:40
PROVIDERS: PCP Internal Medicine
DX: N39.0 Urinary tract infection, site not specified (principal); I95.9 Hypotension, unspecified; E86.0 Dehydration; G93.40 Encephalopathy, unspecified
CPT/HCPCS: 81002; 87086; 87088

== ENCOUNTER 2023-05-04 12:48 | Emergency (ER) | payer MEDICARE, SELFPAY ==
[2017-12-28 13:50] VITALS: BMI 29.2
[2023-05-04 12:57] VITALS: BP 148/76; PULSE 75; RESP 21; TEMP 36.8; O2SAT 97; BMI 22.5
--- NOTE | 2023-05-04 13:03 | ED.RN ---
bedside glucose 127
[2023-05-04 13:22] LABS: Bedside Glucose 127 mg/dL (74-106)
--- NOTE | 2023-05-04 13:47 | CT_ITS ---
STUDY: CT BRAIN WITHOUT CONTRAST REASON FOR EXAM: Female, 77 years old. Confusion following a fall. RADIATION DOSAGE (If Supplied By Facility): CTDIvol = ( 47.06 ) mGy, DLP = ( 855.03 ) mGycm TECHNIQUE: Transaxial CT imaging of the brain was performed without administration of intravenous contrast material. Individualized dose optimization techniques were used for this CT. COMPARISON: Comparison is made with prior study dated January 24, 2023. FINDINGS: Normal soft tissue structures. Normal calvarium. There is mild cerebral atrophy with widening of the extra-axial spaces and ventricular dilatation. There are areas of decreased attenuation within the white matter tracts of the supratentorial brain, consistent with microvascular disease changes. There is evidence of encephalomalacia in the medial aspect of the right occipital lobe. This is new as compared to prior study. Stable small lacuna in the right basal ganglion. Normal brainstem. Normal cerebellum. There is no intracranial hemorrhage. There are no findings of an acute ischemic infarction. Retention cysts versus polyps at the base of the right maxillary sinus. Mucosal thickening of the ethmoid sinuses bilaterally. CT/Brain/Head without Contrast IMPRESSION: Chronic involutional changes of the brain. New focal encephalomalacia in the medial aspect of the right occipital lobe. Electronically Signed: Gonzales Dowell MD at 14:29 EDT ,
[2023-05-04] MEDS: 0.9% Normal Saline (1000mL) 1,000 ML 1000 ML IV (14:00)
[2023-05-04 14:09] LABS: Absolute Neutrophil Count 3.4 X10^3/uL (2.0-7.7); Basophil# 0.03 X10^3/uL; Basophil% 0.6 % (0-1); Eosinophil# 0.13 X10^3/uL; Eosinophils% 2.4 % (0-5); Hematocrit 32.3 % (37-47); Hemoglobin 9.8 g/dL (12.0-15.0); Lymphocyte % 25.9 % (19-41); Mean Corp Hgb Conc 30.3 g/dL (32-36); Mean Corpuscular Hgb 25.9 pg (27.0-32.0); Mean Corpuscular Volume 85.4 fL (81-99); Mean Platelet Vol. 9.8 fl (6.2-12.0); Monocyte# 0.44 X10^3/uL; Monocyte% 8.1 % (0-10); NRBC Flagged by Analyzer 0 % (0-5); Neutrophil # 3.38 X10^3/uL (2.7-7.7); Neutrophil % 62.6 % (47-70); Platelet Count 268 K/mm3 (150-450); RBC Distribution Width CV 14.6 % (11.6-14.6); Red Blood Count 3.78 M/mm3 (4.2-5.4); White Blood Count 5.4 K/mm3 (4.4-11.0)
--- NOTE | 2023-05-04 14:10 | RAD_ITS ---
STUDY: X-RAY CHEST REASON FOR EXAM: Female, 77 years old. Cough. TECHNIQUE: Single AP portable view of the chest. COMPARISON: Comparison is made with prior study of February 2023. FINDINGS: EKG electrodes are seen. Stable elevation of the left hemidiaphragm. Mild degree of vascular congestion. There is no demonstrated pleural abnormality. Sternal cerclage wires and vascular clips are present from a prior sternotomy and coronary artery bypass graft procedure (CABG). Normal mediastinum and beverly. Normal visualized pulmonary arteries. There is atherosclerotic calcification of the aortic arch with tortuosity. Normal visualized thoracic spine. There is degenerative osteoarthritis of the bilateral shoulders. Deformity of the proximal left humerus due to old healed fracture. Healed right rib fractures. There is no demonstrated abnormality of the visualized soft tissue structures of the upper abdomen. RAD/Chest 1 View (Portable) IMPRESSION: Mild degree of vascular congestion. Electronically Signed: Gonzales Dowell MD at 14:26 EDT ,
--- NOTE | 2023-05-04 14:19 | EDS_ITS ---
HPI History of Present Illness Chief Complaint: Confusion Informant: patient Narrative Narrative: 77-year-old female presenting to the emergency room the chief complaint of confusion cough nausea. Patient has had off-and-on episodes of confusion and weakness. She has had a couple of hospital admissions for generalized illness and is gone to rehab facility. She is currently living at home with her daughters. She states the past 2 weeks she has had a slight cough. She notes some nausea. She states that she frequently falls due to balance issues but that has gotten better as she used a walker. The patient states her daughters felt that she was confused and possibly dehydrated this morning and wanted her to be evaluated. They are not with her at the time of evaluation. No reported fever. She has a 1.5 pack/day smoker. She is on Plavix and notes that on one of the falls recently she did hit her head. [facility] Medical History Adult failure to thrive Anemia Anxiety and depression Atherosclerosis of coronary artery bypass graft without angina pectoris Atherosclerosis of coronary artery of [place] heart with angina pectoris Avascular necrosis of femur head, left Back pain Benzodiazepine dependence CAD (coronary artery disease) Carotid artery stenosis Chronic hypoxic respiratory failure COPD (chronic obstructive pulmonary disease) CVA (cerebral vascular accident) DDD (degenerative disc disease), lumbar Declining functional status Depression with anxiety Diastolic dysfunction Essential (primary) hypertension H/O: pneumonia Hemorrhoids, external History of rectal cancer History of thyroid cancer Hyperlipidemia Hypothyroidism Nicotine dependence Non-rheumatic mitral regurgitation Non-rheumatic tricuspid valve insufficiency Non-ST elevation (NSTEMI) myocardial infarction Obstructive sleep apnea Osteoarthritis of left hip Secondary pulmonary arterial hypertension TIA (transient ischemic attack) Unable to bear weight on left lower extremity Home Medications levothyroxine 75 mcg tablet 75 mcg PO DAILY THYROID 09/06/17 [History Last Taken 01/29/23] citalopram 40 mg tablet 40 mg PO DAILY DEPRESSION 12/18/17 [History Last Taken 01/29/23] atenolol 50 mg tablet 50 mg PO DAILY BLOOD PRESSURE 01/05/18 [History Last Taken 04/19/22] atorvastatin 40 mg tablet 40 mg PO QHS CHOLESTEROL 01/05/18 [History Last Taken 01/28/23] albuterol sulfate 0.63 mg/3 mL solution for nebulization 0.63 mg inhalation Q4H PRN Congestion 07/14/18 [History Last Taken 1 Week Ago ~10/01/21] bupropion HCl 100 mg tablet 100 mg PO DAILY MOOD STABILIZER 01/16/19 [History Last Taken 01/29/23] pantoprazole 40 mg tablet,delayed release 40 mg PO BID GERD 01/16/19 [History Last Taken 04/19/22] oxybutynin chloride 5 mg tablet,extended release 24 hr 5 mg PO DAILY BLADDER 10/08/21 [History Last Taken 01/29/23] lisinopril 20 mg tablet 20 mg PO DAILY BLOOD PRESSURE 04/10/22 [History Last Taken 04/19/22] clopidogrel 75 mg tablet 75 mg PO QODAY BLOOD THINNER 07/12/22 [History Last Taken 01/29/23] melatonin 10 mg sublingual tablet 10 mg PO QHS INSOMNIA #0 tabs 02/12/23 [Rx Last Taken Unknown] acetaminophen 500 mg tablet 1,000 mg PO Q6H PRN Pain Score 1-10 02/16/23 [History Last Taken Unknown] furosemide 20 mg tablet (Lasix) 20 mg PO DAILY PRN DIURETIC #30 tabs 02/20/23 [Rx Last Taken 01/29/23] lorazepam 0.5 mg tablet 0.5 mg PO TID 30 days #90 tabs 02/20/23 [Rx Last Taken Unknown] Allergy/AdvReac Type Severity Reaction Status Date / Time morphine Allergy PT UNSURE Verified 02/16/23 14:04 Penicillins Allergy Hives Verified 02/16/23 14:04 tramadol HCl [From Ultram] Allergy PT UNSURE Verified 02/16/23 14:04 bupropion [From Wellbutrin] AdvReac hallucinati Verified 02/16/23 14:04 ons Family History Father Heart disease of heart attack at age 64 Mother Cancer of cancer at age 72 CVA (cerebral vascular accident) Surgical History History of appendectomy History of coronary artery bypass graft x 3 (~2007) History of coronary artery stent placement (10/10/21) History of left heart catheterization (10/10/21) Hx of cholecystectomy Hx of thyroidectomy Presence of stent in coronary artery (~10/10/21) Social History household members: children and other details: Daughter. housing: house Smoking Status: Current every day smoker tobacco type: cigarettes details: Patient denies alcohol use substance use type: does not use ROS ROS ED Constitutional Constitutional ED: Denies chills or weight loss Eyes Eyes: Denies change in vision or diplopia ENT ENT ED: Denies ear pain, rhinorrhea or sore throat Cardiovascular Cardiovascular: Denies chest pain, orthopnea, palpitations or racing heartbeat Respiratory/Chest Respiratory/Chest: Reports cough; Denies dyspnea or orthopnea Gastrointestinal Gastrointestinal: Reports nausea; Denies abdominal pain, diarrhea or vomiting Genitourinary Genitourinary ED: Denies dysuria, hematuria or urinary frequency Musculoskeletal Musculoskeletal: Denies arthralgias or myalgias Integumentary Denies abscess or rash Neurologic Neurologic: Reports other Details: Reported confusion ; Denies headache(s) or weakness Psychiatric Psychiatric: Denies anxiety, depression, suicidal ideation or suicidal thoughts Endocrine Endocrinology: Denies polydipsia, polyphagia or polyuria Allergic/Immunologic Allergic/Immunologic ED: Denies mouth swelling, tongue swelling or urticaria EXAM Physical Exam Const Vital Signs: 05/04/23 12:57 05/04/23 13:01 05/04/23 14:45 Temperature 98.2 F Temperature Source Oral Pulse Rate 75 62 Respiratory Rate 21 H 21 H Respiratory Effort Normal Respiratory Pattern Normal Blood Pressure 148/76 H 162/54 H Blood Pressure Mean 100 85 Pulse Ox 97 96 Oxygen Delivery Method Room Air Positive well nourished and well developed General Appearance ED: well developed HEENT Reports normocephalic, head/scalp atraumatic and moist mucous membranes Eyes PERRL and EOMs intact bilaterally Neck no lymphadenopathy, supple and no JVD Resp normal respiratory effort and clear to auscultation bilaterally Cardio regular rate, regular rhythm and no murmurs GI normal to inspection, nondistended, normoactive bowel sounds and non-tender Palpation: soft Back/Spine no CVA tenderness and normal ROM Extremity normal to inspection General Extremety ED: Negative for edema General Extremity: Negative for edema Neuro oriented x3 and CN's II-XII intact bilaterally Sensorium / Orientation: alert Motor Exam: strength 5/5 throughout Psych mental status grossly normal Mood & Affect: Negative for depressed or tearful Skin no rashes or lesions noted and no wounds MDM MDM MDM Narrative Medical decision making narrative: Differential diagnosis includes but not limited to UTI electrolyte disturbance renal failure intracranial hemorrhage pneumonia hepatic encephalopathy. CT the brain demonstrates a new area encephalomalacia in the right occipital lobe. However I do not feel that this would explain acute alteration such as reported. Chest x-ray on my interpretation shows no acute process. Basic blood work showed hemoglobin 9.8 white count 5.4. Potassium 3.3 creatinine 0.65. Patient does take Lasix. She would prefer not to take potassium supplementation would prefer to adjust this with her diet and have it rechecked in about a week. Urinalysis is negative. Liver enzymes are normal. Patient's been up walking to the bathroom without any difficulty. At this point I think the patient can be discharged home. She does not appear confused. She is ANO x 3. Not seeing any pneumonia or obvious reason to admit her to the hospital at this time. Would recommend follow-up with History & Record Review Discussion w/independent historian: Patient Additional record(s) reviewed:: Prior inpatient record, Prior ED visit and Prior labs Lab Data Attestation: I reviewed the patient's lab results. Labs: Laboratory Results - last 24 hr 05/04/23 05/04/23 05/04/23 13:03 14:00 14:40 WBC 5.4 RBC 3.78 L Hgb 9.8 L Hct 32.3 L MCV 85.4 MCH 25.9 L MCHC 30.3 L RDW Std Deviation 45.0 H RDW Coeff of John 14.6 Plt Count 268 MPV 9.8 Immature Gran % (Auto) 0.400 Neut % (Auto) 62.6 Lymph % (Auto) 25.9 [place] % (Auto) 8.1 Eos % (Auto) 2.4 Baso % (Auto) 0.6 Absolute Neuts (auto) 3.4 Absolute Lymphs (auto) 1.40 Nucleated RBC % 0 Sodium 145 Potassium 3.3 L Chloride 108 H Carbon Dioxide 30.0 Anion Gap 7 BUN 9 Creatinine 0.65 Estim Creat Clear Calc 48.06 Est GFR (MDRD) Af Amer 114 Est GFR (MDRD) Non-Af 94 BUN/Creatinine Ratio 13.8 Glucose 94 Calcium 8.5 Total Bilirubin 0.50 AST 12 L ALT 11 L Alkaline Phosphatase 109 Total Protein 6.7 Albumin 3.0 L Globulin 3.7 Albumin/Globulin Ratio 0.8 L Urine Color Yellow Urine Clarity Clear Urine pH 7.0 Ur Specific [place] 1.010 Urine Protein Negative Urine Glucose (UA) Normal Urine Ketones Negative Urine Occult Blood 10 H Urine Nitrite Negative Urine Bilirubin Negative Urine Urobilinogen Normal Ur Leukocyte Esterase Negative Urine RBC 0 SEEN Urine WBC 0 SEEN Ur Squamous Epith Cells 0-5 SEEN Urine Bacteria 0 SEEN Urine Mucus 0 SEEN POC Glucose 127 H Radiography Diagnostic Testing: Clinical Impression(s) from Imaging Studies Brain CT 05/04/23 13:47 IMPRESSION: Chronic involutional changes of the brain. New focal encephalomalacia in the medial aspect of the right occipital lobe. Electronically Signed: Gonzales Dowell MD at 14:29 EDT , Chest X-Ray 05/04/23 14:10 IMPRESSION: Mild degree of vascular congestion. Electronically Signed: Gonzales Dowell MD at 14:26 EDT , Discharge Plan Triage Chief Complaint: Confusion Other Complaint: Weakness ED Provider: Humberto Cheek Dx/Rx/DC Orders Clinical Impression: Cough, CAD (coronary artery disease), COPD (chronic obstructive pulmonary disease), Fall Instructions: ED Confusion Prescriptions: No Action albuterol sulfate 0.63 mg/3 mL solution for nebulization 0.63 mg INHALATION Q4H PRN (Reason: Congestion) levothyroxine 75 MCG tablet 75 mcg PO DAILY citalopram 40 mg tablet 40 mg PO DAILY atenolol 50 MG tablet 50 mg PO DAILY atorvastatin 40 MG tablet 40 mg PO QHS bupropion HCl 100 MG tablet 100 mg PO DAILY pantoprazole 40 MG tablet 40 mg PO BID oxybutynin chloride 5 mg tablet extended release 24hr 5 mg PO DAILY lisinopril 20 mg tablet 20 mg PO DAILY clopidogrel 75 mg tablet 75 mg PO QODAY melatonin 10 mg Tablet, Sublingual 10 mg PO QHS Qty: 0 0RF acetaminophen 500 mg Tablet 1,000 mg PO Q6H PRN (Reason: Pain Score 1-10) lorazepam 0.5 mg Tablet 0.5 mg PO TID 30 Days Qty: 90 0RF furosemide [Lasix] 20 mg tablet 20 mg PO DAILY PRN (Reason: DIURETIC) Qty: 30 0RF Primary Care Provider: Zully Rojas Referrals: Zully Rojas MD [Primary Care Provider] - 1 Week Disposition Disposition: Home, Self Care
[2023-05-04 14:21] LABS: ALB/GLOB Ratio 0.8 RATIO (0.9-2.4); AST(SGOT) 12 U/L (15-37); Alanine Aminotransfer ALT/SGPT 11 U/L (13-56); Alkaline Phosphatase 109 U/L (45-117); Anion Gap 7 (5-15); BUN 9 mg/dL (7-18); BUN/Creat Ratio 13.8 RATIO (10-20); Calcium,Total 8.5 mg/dL (8.5-10.1); Chloride 108 mmol/L (98-107); Creatinine, Serum 0.65 mg/dL (0.55-1.02); EST Glomerular Filtration Rate 94 mL/min (>60); Est Glom Filt Rate - Afr Amer 114 mL/min (>60); Estimated Creatinine Clearance 48.06 ml/min; Globulin 3.7 g/dL (2.2-4.2); Glucose 94 mg/dL (74-106); Potassium 3.3 mmol/L (3.5-5.1); Protein, Total 6.7 g/dL (6.4-8.2); Sodium Level 145 mmol/L (136-145)
[2023-05-04 14:45] VITALS: BP 162/54; PULSE 62; RESP 21; O2SAT 96
[2023-05-04 14:47] LABS: Bacteria 0 SEEN /hpf (None Seen); Mucous, Urine 0 SEEN /hpf (<or=2+); Red Blood Cells-Urine 0 SEEN /hpf (0-5); White Blood Cells 0 SEEN /hpf (0-5)
[2023-05-04 14:48] LABS: Color, Urine Yellow (Yellow); Glucose, Dipstick Normal (Normal); Ketone-Dipstick Negative (Negative); Leukocyte Esterase-Dipstick Negative /ul (Negative); Nitrite-Dipstick Negative (Negative); Occult Blood-Urine 10 /ul (Negative); Protein-Dipstick Negative (Negative); Urine Bilirubin Dipstick Negative (Negative); Urine Clarity Clear (Clear); Urine Urobilinogen Normal (Normal)
[2023-05-04 14:54] LABS: Squamous Epithelial Cells - UA 0-5 SEEN /hpf (5-10)
[2023-05-04 15:15] VITALS: BP 162/65; PULSE 69; RESP 18; TEMP 37.1; O2SAT 95
[2023-05-04 15:32] VITALS: BP 162/65; PULSE 69; RESP 18; TEMP 37.1; O2SAT 95
== END 2023-05-04 15:33 | disposition home or self-care (01) ==
PROVIDERS: Emergency Provider Emergency Medicine; PCP Internal Medicine; Visit Provider Emergency Medicine
DX: R05.9 Cough, unspecified (principal); J44.9 Chronic obstructive pulmonary disease, unspecified; I25.10 Atherosclerotic heart disease of native coronary artery without angina pectoris; F17.210 Nicotine dependence, cigarettes, uncomplicated; I25.2 Old myocardial infarction; Z86.73 Personal history of transient ischemic attack (TIA), and cerebral infarction without residual deficits; Z95.1 Presence of aortocoronary bypass graft; Z95.5 Presence of coronary angioplasty implant and graft
CPT/HCPCS: 70450; 71045; 80053; 81001; 82962; 85025; 96360; 99284; J7030; A4216

== ENCOUNTER 2023-06-13 15:08 | Emergency (ER) | payer MEDICARE, SELFPAY ==
[2017-12-28 13:50] VITALS: BMI 29.2
[2023-06-13 15:10] VITALS: BP 157/68; PULSE 68; RESP 18; TEMP 36.7; O2SAT 99
[2023-06-13 15:40] LABS: Absolute Neutrophil Count 3.8 X10^3/uL (2.0-7.7); Basophil# 0.03 X10^3/uL; Basophil% 0.5 % (0-1); Eosinophil# 0.35 X10^3/uL; Eosinophils% 5.6 % (0-5); Hematocrit 34.6 % (37-47); Hemoglobin 10.3 g/dL (12.0-15.0); Lymphocyte % 25.7 % (19-41); Mean Corp Hgb Conc 29.8 g/dL (32-36); Mean Corpuscular Hgb 25.4 pg (27.0-32.0); Mean Corpuscular Volume 85.4 fL (81-99); Mean Platelet Vol. 9.7 fl (6.2-12.0); Monocyte# 0.46 X10^3/uL; Monocyte% 7.4 % (0-10); NRBC Flagged by Analyzer 0 % (0-5); Neutrophil # 3.78 X10^3/uL (2.7-7.7); Neutrophil % 60.6 % (47-70); Platelet Count 341 K/mm3 (150-450); RBC Distribution Width CV 15.7 % (11.6-14.6); RBC Distribution Width SD 48.6 fl (35.1-43.9); Red Blood Count 4.05 M/mm3 (4.2-5.4); White Blood Count 6.2 K/mm3 (4.4-11.0)
[2023-06-13 16:02] LABS: ALB/GLOB Ratio 0.8 RATIO (0.9-2.4); AST(SGOT) 17 U/L (15-37); Alanine Aminotransfer ALT/SGPT 13 U/L (13-56); Albumin, Serum 3.1 g/dL (3.2-5.0); Alkaline Phosphatase 121 U/L (45-117); Anion Gap 0 (5-15); BUN 12 mg/dL (7-18); BUN/Creat Ratio 16.9 RATIO (10-20); Calcium,Total 8.5 mg/dL (8.5-10.1); Chloride 108 mmol/L (98-107); Creatinine, Serum 0.71 mg/dL (0.55-1.02); EST Glomerular Filtration Rate 85 mL/min (>60); Est Glom Filt Rate - Afr Amer 103 mL/min (>60); Globulin 3.8 g/dL (2.2-4.2); Glucose 92 mg/dL (74-106); Potassium 3.9 mmol/L (3.5-5.1); Protein, Total 6.9 g/dL (6.4-8.2); Sodium Level 140 mmol/L (136-145)
--- NOTE | 2023-06-13 16:45 | CT_ITS ---
STUDY: CT ABDOMEN AND PELVIS WITH CONTRAST REASON FOR EXAM: Female, 78 years old. LUQ pain RADIATION DOSAGE (If Supplied By Facility): CTDIvol = ( 10.05 ) mGy, DLP = ( 506.21 ) mGycm TECHNIQUE: IV 100mL Isovue-370 was administered. Transaxial images were obtained from the dome of the diaphragm to the symphysis pubis in the portal venous phase. Multiplanar coronal and sagittal images were reformatted. Individualized Dose Optimization Techniques Were Used For This CT. COMPARISON: FINDINGS: LOWER CHEST: Lung bases are clear. No cardiomegaly or pericardial effusion. LIVER: The liver is normal in size, shape, and attenuation. No focal mass. GALLBLADDER AND BILIARY TREE: Cholecystectomy. No intra- or extrahepatic biliary ductal dilation. PANCREAS: No focal cystic or solid mass. SPLEEN: Normal size without focal cystic or solid mass. ADRENAL GLANDS: No nodules. KIDNEYS AND URETERS: Normal renal size and position. No hydronephrosis or nephrolithiasis. PERITONEUM: No ascites or free air. No other fluid collection. BOWEL: The stomach is unremarkable. Normal caliber small bowel. There is no obstruction. No colonic wall thickening or inflammation. Sigmoid colonic diverticulosis without evidence of diverticulitis. Appendix is absent. LYMPH NODES: No enlarged mesenteric or retroperitoneal lymph nodes. VESSELS: Aorta is non-dilated. URINARY BLADDER: Unremarkable. REPRODUCTIVE ORGANS: No pelvic masses. Senescent uterus and ovaries unremarkable. ABDOMINAL WALL: No discrete abdominal or pelvic wall hernia. BONES: No acute or suspicious osseous abnormalities. New but chronic appearing mild superior endplate compression deformity at L2 and a new but chronic appearing inferior endplate compression deformity at L4. Left femoral head AVN unchanged mild collapse of the subchondral bone plate. CT/Abdomen/Pelvis W IV Cont ONLY IMPRESSION: * No acute findings to explain the patient''s symptomatology.. * Sigmoid colonic diverticulosis without evidence of diverticulitis. * Cholecystectomy * Left femoral head AVN unchanged. * New but chronic appearing compression fractures at L2 and L4. Electronically Signed: Juan Lucas MD at 18:01 EDT ,
--- NOTE | 2023-06-13 16:46 | ED.VIS.GI ---
HPI HPI - GI History of Present Illness Chief Complaint: Abd Pain Narrative Narrative: 78-year-old female presents with left upper quadrant abdominal pain that is worse with movement. She states she has had it for at least a week. Whenever she tries to get up, sit up, rollover she gets pain in the left upper quadrant. She denies any fevers or chills, no nausea or vomiting, no dysuria or hematuria, no problems with bowel movements. Initially, she denies any recent falls. Of note, she states she takes a blood thinner in the form of Plavix for coronary artery disease. [facility] Medical History Adult failure to thrive Anemia Anxiety and depression Atherosclerosis of coronary artery bypass graft without angina pectoris Atherosclerosis of coronary artery of [place] heart with angina pectoris Avascular necrosis of femur head, left Back pain Benzodiazepine dependence CAD (coronary artery disease) Carotid artery stenosis Chronic hypoxic respiratory failure COPD (chronic obstructive pulmonary disease) CVA (cerebral vascular accident) DDD (degenerative disc disease), lumbar Declining functional status Depression with anxiety Diastolic dysfunction Essential (primary) hypertension H/O: pneumonia Hemorrhoids, external History of rectal cancer History of thyroid cancer Hyperlipidemia Hypothyroidism Nicotine dependence Non-rheumatic mitral regurgitation Non-rheumatic tricuspid valve insufficiency Non-ST elevation (NSTEMI) myocardial infarction Obstructive sleep apnea Osteoarthritis of left hip Secondary pulmonary arterial hypertension TIA (transient ischemic attack) Unable to bear weight on left lower extremity Home Medications levothyroxine 75 mcg tablet 75 mcg PO DAILY THYROID 09/06/17 [History Last Taken 01/29/23] citalopram 40 mg tablet 40 mg PO DAILY DEPRESSION 12/18/17 [History Last Taken 01/29/23] atenolol 50 mg tablet 50 mg PO DAILY BLOOD PRESSURE 01/05/18 [History Last Taken 04/19/22] atorvastatin 40 mg tablet 40 mg PO QHS CHOLESTEROL 01/05/18 [History Last Taken 01/28/23] albuterol sulfate 0.63 mg/3 mL solution for nebulization 0.63 mg inhalation Q4H PRN Congestion 07/14/18 [History Last Taken 1 Week Ago ~10/01/21] bupropion HCl 100 mg tablet 100 mg PO DAILY MOOD STABILIZER 01/16/19 [History Last Taken 01/29/23] pantoprazole 40 mg tablet,delayed release 40 mg PO BID GERD 01/16/19 [History Last Taken 04/19/22] oxybutynin chloride 5 mg tablet,extended release 24 hr 5 mg PO DAILY BLADDER 10/08/21 [History Last Taken 01/29/23] lisinopril 20 mg tablet 20 mg PO DAILY BLOOD PRESSURE 04/10/22 [History Last Taken 04/19/22] clopidogrel 75 mg tablet 75 mg PO QODAY BLOOD THINNER 07/12/22 [History Last Taken 01/29/23] melatonin 10 mg sublingual tablet 10 mg PO QHS INSOMNIA #0 tabs 02/12/23 [Rx Last Taken Unknown] acetaminophen 500 mg tablet 1,000 mg PO Q6H PRN Pain Score 1-10 02/16/23 [History Last Taken Unknown] furosemide 20 mg tablet (Lasix) 20 mg PO DAILY PRN DIURETIC #30 tabs 02/20/23 [Rx Last Taken 01/29/23] lorazepam 0.5 mg tablet 0.5 mg PO TID 30 days #90 tabs 02/20/23 [Rx Last Taken Unknown] Allergy/AdvReac Type Severity Reaction Status Date / Time morphine Allergy PT UNSURE Verified 06/13/23 15:10 Penicillins Allergy Hives Verified 06/13/23 15:10 tramadol HCl [From Ultram] Allergy PT UNSURE Verified 06/13/23 15:10 bupropion [From Wellbutrin] AdvReac hallucinati Verified 06/13/23 15:10 ons Family History Father Heart disease of heart attack at age 64 Mother Cancer of cancer at age 72 CVA (cerebral vascular accident) Surgical History History of appendectomy History of coronary artery bypass graft x 3 (~2007) History of coronary artery stent placement (10/10/21) History of left heart catheterization (10/10/21) Hx of cholecystectomy Hx of thyroidectomy Presence of stent in coronary artery (~10/10/21) Social History household members: children and other details: Daughter. housing: house Smoking Status: Current every day smoker tobacco type: cigarettes details: Patient denies alcohol use substance use type: does not use ROS ROS ED ROS Narrative Constitutional: No fever, no chills. HEENT: No sore throat. No neck pain. No loss of vision. No rhinorrhea. Cardiovascular: No chest pain. No palpitations. No pedal edema. Respiratory: No cough, no shortness of breath. Abdominal: Left upper quadrant abdominal pain. No nausea. No vomiting. No problems with bowel movements. No diarrhea. Genitourinary: No dysuria. No hematuria. Musculoskeletal: No myalgias. No arthralgias. Neurologic: No headaches. No dizziness. No lightheadedness. Skin: No rash. No change in color. Psychiatric: No depression. No anxiety. EXAM Physical Exam Narrative Exam Narrative: Afebrile. Vital signs noted. HEENT: Normocephalic. Atraumatic. PERRL, EOMI. Neck soft and supple. No point tenderness or step off. Cardiovascular: Regular rate and rhythm. No murmurs, rubs, or gallops appreciated. Respiratory: No tachypnea. Lungs clear to auscultation bilaterally. Gastrointestinal: Abdomen soft, mild tenderness to palpation left upper quadrant of abdominal wall. Positive pain with half sit up and movement. Abdomen with normoactive bowel sounds. No rebound or guarding. Neurological: Awake. Alert. Nonfocal, nonlateralizing. Skin: No rash. Normal color. No pallor. Musculoskeletal: No pedal edema. Full range of motion extremities. Const Vital Signs: 06/13/23 15:10 Temperature 98.1 F Temperature Source Temporal Pulse Rate 68 Respiratory Rate 18 Blood Pressure 157/68 H Blood Pressure Mean 97 Pulse Ox 99 Oxygen Delivery Method Room Air MDM MDM MDM Narrative Medical decision making narrative: In the differential diagnosis is abdominal wall strain versus abdominal wall hematoma, spontaneous, versus traumatic although the patient states she has not fallen recently but has fallen in the past. Also the differential diagnosis would be splenic rupture, but I have low suspicion for that because the history and physical does not support that. Additionally, I do think she has a diverticulitis because she is not having any problems with bowel movements and the history and physical does not support that either. Comprehensive workup was pursued. I reviewed her laboratory work and she has normal white count of 6.2, hemoglobin stable at 10.3, platelet count normal at 341. Electrolyte panel is remarkable for chloride of 108 which I think is nonspecific. BUN normal at 12 and creatinine 0.71. Lipase is normal at 19. I do not think she has a pancreatitis causing her pain. CT of the abdomen pelvis was obtained and reviewed. I reviewed the radiology report which states there is no acute process or explanation for her left upper quadrant pain. Given her history and physical I do think that she has more of an abdominal wall strain. She was given 25 mcg of fentanyl here in the emergency department prior to the CT results. At this point in time, I feel she can be discharged to follow-up with her primary care provider. I do not feel narcotic pain medication is indicated for home use. She will take [id number] medications as needed. Disposition is discharged home in stable condition. History & Record Review Discussion w/independent historian: Patient Additional record(s) reviewed:: Prior labs Lab Data Attestation: I reviewed the patient's lab results. Labs: Laboratory Results - last 24 hr 06/13/23 15:18 WBC 6.2 RBC 4.05 L Hgb 10.3 L Hct 34.6 L MCV 85.4 MCH 25.4 L MCHC 29.8 L RDW Std Deviation 48.6 H RDW Coeff of John 15.7 H Plt Count 341 MPV 9.7 Immature Gran % (Auto) 0.200 Neut % (Auto) 60.6 Lymph % (Auto) 25.7 [place] % (Auto) 7.4 Eos % (Auto) 5.6 H Baso % (Auto) 0.5 Absolute Neuts (auto) 3.8 Absolute Lymphs (auto) 1.60 Nucleated RBC % 0 Sodium 140 Potassium 3.9 Chloride 108 H Carbon Dioxide 32.0 Anion Gap 0 L BUN 12 Creatinine 0.71 Est GFR (MDRD) Af Amer 103 Est GFR (MDRD) Non-Af 85 BUN/Creatinine Ratio 16.9 Glucose 92 Calcium 8.5 Total Bilirubin 0.30 AST 17 ALT 13 Alkaline Phosphatase 121 H Total Protein 6.9 Albumin 3.1 L Globulin 3.8 Albumin/Globulin Ratio 0.8 L Lipase 19 Radiography Diagnostic Testing: Clinical Impression(s) from Imaging Studies Abdomen/Pelvis CT 06/13/23 16:45 IMPRESSION: * No acute findings to explain the patient''s symptomatology.. * Sigmoid colonic diverticulosis without evidence of diverticulitis. * Cholecystectomy * Left femoral head AVN unchanged. * New but chronic appearing compression fractures at L2 and L4. Electronically Signed: Juan Lucas MD at 18:01 EDT , Discharge Plan Triage Chief Complaint: Abd Pain ED Provider: Julian Cordova Dx/Rx/DC Orders Clinical Impression: Abdominal pain, LUQ, Abdominal wall strain Instructions: ED Abdominal Pain Unkn Cause Fem, ED Muscle Strain, Abdomen Prescriptions: No Action albuterol sulfate 0.63 mg/3 mL solution for nebulization 0.63 mg INHALATION Q4H PRN (Reason: Congestion) levothyroxine 75 MCG tablet 75 mcg PO DAILY citalopram 40 mg tablet 40 mg PO DAILY atenolol 50 MG tablet 50 mg PO DAILY atorvastatin 40 MG tablet 40 mg PO QHS bupropion HCl 100 MG tablet 100 mg PO DAILY pantoprazole 40 MG tablet 40 mg PO BID oxybutynin chloride 5 mg tablet extended release 24hr 5 mg PO DAILY lisinopril 20 mg tablet 20 mg PO DAILY clopidogrel 75 mg tablet 75 mg PO QODAY melatonin 10 mg Tablet, Sublingual 10 mg PO QHS Qty: 0 0RF acetaminophen 500 mg Tablet 1,000 mg PO Q6H PRN (Reason: Pain Score 1-10) lorazepam 0.5 mg Tablet 0.5 mg PO TID 30 Days Qty: 90 0RF furosemide [Lasix] 20 mg tablet 20 mg PO DAILY PRN (Reason: DIURETIC) Qty: 30 0RF Primary Care Provider: Zully Rojas Referrals: Zully Rojas MD [Primary Care Provider] - 3-5 Days Activity Restrictions/Additional Instructions: Take [id number] medications as needed for pain. Follow-up with your primary care provider early next week. Disposition Disposition: Home, Self Care
[2023-06-13] MEDS: Ondansetron 4 MG/2 ML Vial IV (16:51)
[2023-06-13] MEDS: fentaNYL 100 MCG/2 ML Ampul 25 MCG IV (16:52)
[2023-06-13 17:10] LABS: Lipase 19 U/L (13-75)
[2023-06-13 19:21] VITALS: BP 144/70; PULSE 87; RESP 20; TEMP 36.4; O2SAT 95
== END 2023-06-13 19:22 | disposition home or self-care (01) ==
PROVIDERS: Emergency Provider Emergency Medicine; PCP Internal Medicine; Visit Provider Emergency Medicine
DX: R10.12 Left upper quadrant pain (principal); J44.9 Chronic obstructive pulmonary disease, unspecified; I25.10 Atherosclerotic heart disease of native coronary artery without angina pectoris; F17.210 Nicotine dependence, cigarettes, uncomplicated; I25.2 Old myocardial infarction; S39.011A Strain of muscle, fascia and tendon of abdomen, initial encounter; Z86.73 Personal history of transient ischemic attack (TIA), and cerebral infarction without residual deficits; Z95.1 Presence of aortocoronary bypass graft; Z95.5 Presence of coronary angioplasty implant and graft; X58.XXXA Exposure to other specified factors, initial encounter
CPT/HCPCS: 74177; 80053; 83690; 85025; 96374; 96375; 99283; Q9967; A4216; J2405

== ENCOUNTER 2023-06-30 17:41 | Inpatient (IN) | payer MEDICARE, SELFPAY ==
[2017-12-28 13:50] VITALS: BMI 29.2
[2023-06-30] VITALS (13 sets, daily range): BP systolic 163–205; BP diastolic 71–91; PULSE 64–73; RESP 16–30; TEMP 36.2–36.8; O2SAT 3–97; BMI 24.2; BMI 23.0
--- NOTE | 2023-06-30 18:01 | EKG12_ITS ---
Test Reason : REPEAT Blood Pressure : / mmHG Vent. Rate : 069 BPM Atrial Rate : 069 BPM P-R Int : 202 ms QRS Dur : 084 ms QT Int : 420 ms P-R-T Axes : 077 076 085 degrees QTc Int : 450 ms Normal sinus rhythm Nonspecific ST and T wave abnormality Abnormal ECG Confirmed by Ja Kumar ([id number]), society editor WALLY LOAIZA ([id number]) on 07/01/2023 1:03:36 PM Referred By: Confirmed By:Ja Kumar
--- NOTE | 2023-06-30 18:06 | EKG12_ITS ---
Test Reason : repeat Blood Pressure : / mmHG Vent. Rate : 071 BPM Atrial Rate : 071 BPM P-R Int : 208 ms QRS Dur : 086 ms QT Int : 412 ms P-R-T Axes : 062 050 090 degrees QTc Int : 447 ms Normal sinus rhythm Nonspecific ST and T wave abnormality Abnormal ECG Confirmed by Ja Kumar ([id number]), film or videotape editor WALLY LOAIZA ([id number]) on 07/01/2023 1:05:26 PM Referred By: Confirmed By:Ja Kumar
--- NOTE | 2023-06-30 18:14 | ED.VIS.CHEST ---
HPI History of Present Illness Chief Complaint: Chest Pain [facility] Medical History Adult failure to thrive Anemia Anxiety and depression Atherosclerosis of coronary artery bypass graft without angina pectoris Atherosclerosis of coronary artery of [place] heart with angina pectoris Avascular necrosis of femur head, left Back pain Benzodiazepine dependence CAD (coronary artery disease) Carotid artery stenosis Chronic hypoxic respiratory failure COPD (chronic obstructive pulmonary disease) CVA (cerebral vascular accident) DDD (degenerative disc disease), lumbar Declining functional status Depression with anxiety Diastolic dysfunction Essential (primary) hypertension H/O: pneumonia Hemorrhoids, external History of rectal cancer History of thyroid cancer Hyperlipidemia Hypothyroidism Nicotine dependence Non-rheumatic mitral regurgitation Non-rheumatic tricuspid valve insufficiency Non-ST elevation (NSTEMI) myocardial infarction Obstructive sleep apnea Osteoarthritis of left hip Secondary pulmonary arterial hypertension TIA (transient ischemic attack) Unable to bear weight on left lower extremity Home Medications ?Medication ?Instructions ?Recorded ?Last Taken ?Type levothyroxine 75 mcg tablet 75 mcg PO DAILY THYROID 09/06/17 01/29/23 History citalopram 40 mg tablet 40 mg PO DAILY DEPRESSION 12/18/17 01/29/23 History atenolol 50 mg tablet 50 mg PO DAILY BLOOD PRESSURE 01/05/18 04/19/22 History atorvastatin 40 mg tablet 40 mg PO QHS CHOLESTEROL 01/05/18 01/28/23 History albuterol sulfate 0.63 mg/3 mL 0.63 mg inhalation Q4H PRN 07/14/18 1 Week Ago History solution for nebulization Congestion ~10/01/21 bupropion HCl 100 mg tablet 100 mg PO DAILY MOOD STABILIZER 01/16/19 01/29/23 History pantoprazole 40 mg tablet,delayed 40 mg PO BID GERD 01/16/19 04/19/22 History release oxybutynin chloride 5 mg 5 mg PO DAILY BLADDER 10/08/21 01/29/23 History tablet,extended release 24 hr lisinopril 20 mg tablet 20 mg PO DAILY BLOOD PRESSURE 04/10/22 04/19/22 History clopidogrel 75 mg tablet 75 mg PO QODAY BLOOD THINNER 07/12/22 01/29/23 History melatonin 10 mg sublingual tablet 10 mg PO QHS INSOMNIA #0 tabs 02/12/23 Unknown Rx acetaminophen 500 mg tablet 1,000 mg PO Q6H PRN Pain Score 1-10 02/16/23 Unknown History furosemide 20 mg tablet (Lasix) 20 mg PO DAILY PRN DIURETIC #30 02/20/23 01/29/23 Rx tabs lorazepam 0.5 mg tablet 0.5 mg PO TID 30 days #90 tabs 02/20/23 Unknown Rx Allergy/AdvReac Type Severity Reaction Status Date / Time morphine Allergy PT UNSURE Verified 06/30/23 17:43 Penicillins Allergy Hives Verified 06/30/23 17:43 tramadol HCl (From Ultram) Allergy PT UNSURE Verified 06/30/23 17:43 bupropion (From Wellbutrin) AdvReac hallucinati Verified 06/30/23 17:43 ons Family History Father Heart disease of heart attack at age 64 Mother Cancer of cancer at age 72 CVA (cerebral vascular accident) Surgical History History of appendectomy History of coronary artery bypass graft x 3 (~2007) History of coronary artery stent placement (10/10/21) History of left heart catheterization (10/10/21) Hx of cholecystectomy Hx of thyroidectomy Presence of stent in coronary artery (~10/10/21) Social History household members: children and other details: Daughter. housing: house Smoking Status: Heavy Smoker (>10/day) details: Patient denies alcohol use substance use type: does not use EXAM Physical Exam Const Vital Signs: 06/30/23 17:43 06/30/23 18:20 06/30/23 18:21 Temperature 97.2 F L Temperature Source Temporal Pulse Rate 69 Respiratory Rate 18 Respiratory Effort Normal Respiratory Pattern Normal Blood Pressure 199/80 H Blood Pressure Mean 119 Pulse Ox 94 Oxygen Delivery Method Room Air Room Air 06/30/23 18:32 06/30/23 18:42 06/30/23 18:45 Temperature Temperature Source Pulse Rate 73 69 67 Respiratory Rate 20 H 19 H Respiratory Effort Respiratory Pattern Blood Pressure 205/75 H Blood Pressure Mean Pulse Ox 97 96 Oxygen Delivery Method 06/30/23 18:51 06/30/23 18:52 06/30/23 18:59 Temperature Temperature Source Pulse Rate 70 69 67 Respiratory Rate 28 H Respiratory Effort Respiratory Pattern Blood Pressure 184/77 H 184/77 H 168/75 H Blood Pressure Mean 105 Pulse Ox 95 Oxygen Delivery Method Room Air 06/30/23 19:00 06/30/23 19:00 06/30/23 20:00 Temperature Temperature Source Pulse Rate 68 68 65 Respiratory Rate 30 H 30 H 24 H Respiratory Effort Respiratory Pattern Blood Pressure 168/75 H 180/71 H Blood Pressure Mean 101 104 Pulse Ox 3 91 95 Oxygen Delivery Method 06/30/23 21:00 Temperature Temperature Source Pulse Rate 64 Respiratory Rate 16 Respiratory Effort Respiratory Pattern Blood Pressure 163/76 H Blood Pressure Mean 104 Pulse Ox Oxygen Delivery Method MDM MDM MDM Narrative Medical decision making narrative: HISTORY OF PRESENT ILLNESS: 78-year-old female presents with midsternal chest pain is exertional and pressure-like that started 3 hours prior to arrival. Denies nausea or vomiting. Denies associated shortness of breath. Denies leg swelling. Denies any bleeding diathesis. She notes she still smokes. The patient denies recent surgery in the last 4 weeks or immobilization in the last 3 days, denies previous diagnosis of DVT or PE, hemoptysis, unilateral leg swelling or malignancy with treatment the last 6 months or palliative. No estrogen use noted. REVIEW OF SYSTEMS: Pertinent positives: CP Pertinent negatives: Leg swelling, syncope PHYSICAL EXAM: Nursing triage notes reviewed, Vital signs reviewed Constitutional: please see mdm HENT: MMM Eyes: Pupils equal round and reactive to light, Extraocular muscles intact Neck: No stridor, no JVD, full neck ROM Lungs: Clear to auscultation, No wheezing or rales. No increased work of breathing, no conversational dyspnea, no accessory muscle use, no nasal flaring. No respiratory distress noted Heart: Regular rate and rhythm, No murmurs, No rubs and No gallops, 2+ distal pulses (radial, femoral, posterior tibial) in all extremities Abdomen: Soft, there is no tenderness, rigidity, rebound or guarding, no obvious peritoneal signs, no palpable pulsatile abdominal masses, no auscultated abdominal bruit : No CVAT Extremities: No edema Neuro: No focal neurological deficits, cranial nerves II through XII intact, 5/5 strength in all extremities. Intact sensation to light touch in all extremities, 2+ reflexes bilateral patella tendons. Normal gait. No ataxia. Skin: No rash or lesions noted MEDICAL DECISION MAKING: Chief Complaint: Chest pain External records reviewed: Echocardiogram 2022 reviewed shows ejection fraction of 60% Factors affecting care: CVA, hyperlipidemia, hypertension, TIA, COPD, CAD status post CABG Social determinants of health: Tobacco abuse History obtained from others: none Consults: Spoke with Dr. Wilcox (interventionalist preparation plant repairer) no STEMI criteria meet at 1821. Recommended nitro possible gtt, heparin, admit, serial EKGs MDM Narrative: Patient was hemodynamically stable, afebrile and nontoxic-appearing. Exam without focal cardiopulmonary maladies. Stigmata of VTE. While considered PE I thought this was less likely given lack of Wells score. Is more concerned about ACS given EKG changes I considered the following differential diagnosis: ACS, arrhythmia, anemia, PE, dissection ALL IMAGES (IF OBTAINED) HAVE BEEN PERSONALLY REVIEWED AND INTERPRETED BY MYSELF. Initial EKG with normal sinus rhythm however there is ST segment deviations in V1 and V2 concerning for STEMI. EKG was repeated and these changes continued. Third EKG showed resolution of ST segment deviations Troponin elevated consistent with severe myocardial ischemia CBC without leukocytosis, severe anemia, no thrombocytopenia. No coagulopathy BMP without evidence of significant electrolyte abnormalities, no anion gap, no acute kidney injury. I have personally reviewed the patient's chest x-ray. Chest x-ray is unremarkable for pulmonary edema, pneumothorax, pneumonia or focal cardiopulmonary abnormality. After consultation with cardiology patient was started on heparin, given nitroglycerin, aspirin. She showed no evidence of dynamic changes suggestive of STEMI however had a severe NSTEMI with grossly elevated troponin. Patient will need admission to PCU for ongoing telemetry monitoring, pain control and urgent catheterization. Dr. Presley recommended no Site Coordinator intervention immediately. He did not think her EKG was consistent with STEMI did not meet STEMI criteria. He recommended admission and urgent catheterization. The patient and/or family, caregivers express understanding. The patient and/or family, caregivers agrees with the plan. Shared decision making: I will have a discussion with the patient and or visitors regarding risk/benefits of further testing or admission. They will be made aware of of the risk/benefits inherent in this decision they will be given the opportunity to voice understanding. Total critical care time today provided was at least 35 minutes. This excludes separately billable procedures. Critical care time (if documented) is secondary to the patient having high probability of clinically significant/life threatening deterioration in the patient's condition which required my urgent intervention. Impression: 1. NSTEMI 2. History of CAD 3. History of hyperlipidemia Dispo: Admit to PCU This note was generated with [employer] dictation software. It may contain incorrect words, spelling, and punctuation that were not noted in review of the chart prior to signing. Lab Data Labs: Laboratory Results - last 24 hr 06/30/23 06/30/23 18:20 20:55 WBC 8.0 RBC 5.05 Hgb 13.2 Hct 43.7 MCV 86.5 MCH 26.1 L MCHC 30.2 L RDW Std Deviation 59.7 H RDW Coeff of John 19.5 H Plt Count 341 MPV 9.9 Immature Gran % (Auto) 0.400 Neut % (Auto) 77.8 H Lymph % (Auto) 12.0 L Person % (Auto) 6.3 Eos % (Auto) 3.1 Baso % (Auto) 0.4 Absolute Neuts (auto) 6.2 Absolute Lymphs (auto) 0.96 Nucleated RBC % 0 PT 14.8 INR 1.2 APTT 28.9 Sodium 136 Potassium 3.9 Chloride 101 Carbon Dioxide 29.0 Anion Gap 6 BUN 12 Creatinine 0.90 Estim Creat Clear Calc 41.81 Est GFR (MDRD) Af Amer 79 Est GFR (MDRD) Non-Af 65 BUN/Creatinine Ratio 13.4 Glucose 129 H Calcium 9.0 Troponin I High Sens 6617 H* 12528 H* Radiography Diagnostic Testing: Clinical Impression(s) from Imaging Studies Chest X-Ray 06/30/23 18:32 IMPRESSION: No acute cardiopulmonary pathology Electronically Signed: Hany Desai MD at 18:49 EDT Reading Location ID and State: [facility] / [place] Tel , Service support , Discharge Plan Triage Chief Complaint: Chest Pain ED Provider: Elio Abraham Dx/Rx/DC Orders Prescriptions: No Action albuterol sulfate 0.63 mg/3 mL solution for nebulization 0.63 mg INHALATION Q4H PRN (Reason: Congestion) levothyroxine 75 MCG tablet 75 mcg PO DAILY citalopram 40 mg tablet 40 mg PO DAILY atenolol 50 MG tablet 50 mg PO DAILY atorvastatin 40 MG tablet 40 mg PO QHS bupropion HCl 100 MG tablet 100 mg PO DAILY pantoprazole 40 MG tablet 40 mg PO BID oxybutynin chloride 5 mg tablet extended release 24hr 5 mg PO DAILY lisinopril 20 mg tablet 20 mg PO DAILY clopidogrel 75 mg tablet 75 mg PO QODAY melatonin 10 mg Tablet, Sublingual 10 mg PO QHS Qty: 0 0RF acetaminophen 500 mg Tablet 1,000 mg PO Q6H PRN (Reason: Pain Score 1-10) lorazepam 0.5 mg Tablet 0.5 mg PO TID 30 Days Qty: 90 0RF furosemide [Lasix] 20 mg tablet 20 mg PO DAILY PRN (Reason: DIURETIC) Qty: 30 0RF Primary Care Provider: Zully Rojas Referrals: Zully Rojas MD [Primary Care Provider] - Print Language: Tanzanian
[2023-06-30] MEDS: Aspirin 81 MG TAB.CHEW 324 MG PO (18:19)
--- NOTE | 2023-06-30 18:32 | RAD_ITS ---
STUDY: X-RAY CHEST REASON FOR EXAM: Female, 78 years old. chest pain TECHNIQUE: AP portable COMPARISON: October 04, 2023 FINDINGS: The lungs are clear and expanded. There is no demonstrated pleural abnormality. Postop change status post median sternotomy and CABG Normal size heart. Normal mediastinum and [place]. Normal visualized pulmonary arteries. Mild calcific plaquing of the aortic arch and descending thoracic aorta. Dorsal spine and shoulders demonstrate degenerative changes. Normal visualized ribs, and clavicles There is no demonstrated abnormality of the visualized soft tissue structures of the upper abdomen. RAD/Chest 1 View (Portable) IMPRESSION: No acute cardiopulmonary pathology Electronically Signed: Hany Desai MD at 18:49 EDT ,
[2023-06-30 18:34] LABS: Absolute Lymphocyte Count 0.96 X10^3/uL (0.83-4.51); Absolute Neutrophil Count 6.2 X10^3/uL (2.0-7.7); Basophil# 0.03 X10^3/uL; Basophil% 0.4 % (0-1); Eosinophil# 0.25 X10^3/uL; Eosinophils% 3.1 % (0-5); Hematocrit 43.7 % (37-47); Hemoglobin 13.2 g/dL (12.0-15.0); Lymphocyte # 0.96 X10^3/ul (0.83-4.51); Mean Corp Hgb Conc 30.2 g/dL (32-36); Mean Corpuscular Hgb 26.1 pg (27.0-32.0); Mean Corpuscular Volume 86.5 fL (81-99); Mean Platelet Vol. 9.9 fl (6.2-12.0); Monocyte% 6.3 % (0-10); NRBC Flagged by Analyzer 0 % (0-5); Neutrophil # 6.23 X10^3/uL (2.7-7.7); Neutrophil % 77.8 % (47-70); Platelet Count 341 K/mm3 (150-450); RBC Distribution Width CV 19.5 % (11.6-14.6); RBC Distribution Width SD 59.7 fl (35.1-43.9); Red Blood Count 5.05 M/mm3 (4.2-5.4)
[2023-06-30] MEDS: Nitroglycerin SL (ED/IMG/CATH) 0.4 MG TABLET SL ×3 (18:42→18:59)
[2023-06-30] MEDS: HEPARIN/D5w 25,000 UNITS 25,000 UNITS/250 ML IV.SOLN. 7 UNITS CONT INF (18:54)
[2023-06-30 19:03] LABS: Anion Gap 6 (5-15); BUN 12 mg/dL (7-18); BUN/Creat Ratio 13.4 RATIO (10-20); Chloride 101 mmol/L (98-107); EST Glomerular Filtration Rate 65 mL/min (>60); Est Glom Filt Rate - Afr Amer 79 mL/min (>60); Estimated Creatinine Clearance 41.81 ml/min; Glucose 129 mg/dL (74-106); International Normalized Ratio 1.2; Partial Thromboplast Time 28.9 Seconds (24.1-36.2); Potassium 3.9 mmol/L (3.5-5.1); Prothrombin Time (Protime)PT. 14.8 SECONDS (11.7-14.9); Sodium Level 136 mmol/L (136-145); Troponin-I HS (w/2H Reflex) 6617 pg/mL (3.0-54.0)
--- NOTE | 2023-06-30 19:24 | SDCEKG_ITS ---
Test Reason : CHEST PAIN Blood Pressure : / mmHG Vent. Rate : 070 BPM Atrial Rate : 070 BPM P-R Int : 196 ms QRS Dur : 084 ms QT Int : 410 ms P-R-T Axes : 000 137 158 degrees QTc Int : 442 ms Normal sinus rhythm Limb Lead Reversal ST minimal elevation Abnormal ECG Confirmed by Ja Kumar ([id number]), features editor WALLY LOAIZA ([id number]) on 07/01/2023 1:19:02 PM Referred By: Confirmed By:Ja Kumar
[2023-06-30 20:28] LABS: Reflex Troponin-HS? (from REC) Y
[2023-06-30 21:42] LABS: Troponin-I HS 11535 pg/mL (3.0-54.0)
--- NOTE | 2023-06-30 21:50 | HP.PCM.HOS_ITS ---
[facility] - General General Date of Admission: 06/30/23 Date of Service: 06/30/23 Chief Complaint: Chest Pain HPI Narrative MAURICE WALLACE, is a 78 F with a past medical history of essential hypertension, hyperlipidemia, hypothyroidism; with history of thyroidectomy to treat thyroid cancer, chronic and ongoing tobacco abuse ~1.5 ppd; with subsequent COPD, chronic hypoxic respiratory failure, CAD; s/p non-ST elevation GA and CABG x 3 (2007) with subsequent stent (2021) on chronic Plavix, history of chronic diastolic CHF; with preserved LVEF ~60% (2022), history of secondary arterial hypertension, history of nonrheumatic tricuspid valve insufficiency, history of nonrheumatic mitral regurgitation, history of carotid artery stenosis, history of TIA/CVA, history of pneumonia, history of rectal cancer, history of avascular necrosis of the left femoral head, osteoarthritis of the left hip, DDD; with chronic back pain, history of benzodiazepine dependence, overactive bladder, depression and anxiety, chronic anemia, GERD, history of adult [id number] and history of listed allergies to both penicillin and morphine who presents to [facility] ER complaining of chest pain. Ms. Wallace reports her symptoms began approximately 3 hours prior to arrival with the abrupt onset of chest pain that was substernal, severe, pressure-like and nonradiating with nothing seeming to make the pain better or worse. She denies associated fever, chills, nausea, vomiting, syncope, near syncope or lower extremity edema. In the ER she was noted to have an initial troponin of 6,617 pg/mL followed by a second troponin elevated to 11,535 pg/mL consistent with non-ST elevation GA with a chest x-ray that shows no acute findings and she was then admitted to the PCU for ongoing care for stated that is expected to extend beyond 2 midnights. [facility] Medical History Chronic hypoxic respiratory failure Adult failure to thrive Osteoarthritis of left hip Avascular necrosis of femur head, left Anemia Declining functional status Unable to bear weight on left lower extremity Non-rheumatic mitral regurgitation History of rectal cancer Hemorrhoids, external Carotid artery stenosis CAD (coronary artery disease) Non-ST elevation (NSTEMI) myocardial infarction TIA (transient ischemic attack) CVA (cerebral vascular accident) History of thyroid cancer Depression with anxiety DDD (degenerative disc disease), lumbar H/O: pneumonia Diastolic dysfunction Atherosclerosis of coronary artery bypass graft without angina pectoris Benzodiazepine dependence Back pain COPD (chronic obstructive pulmonary disease) Obstructive sleep apnea Anxiety and depression Hypothyroidism Non-rheumatic tricuspid valve insufficiency Secondary pulmonary arterial hypertension Nicotine dependence Hyperlipidemia Atherosclerosis of coronary artery of habematolel heart with angina pectoris Essential (primary) hypertension Home Medications ?Medication ?Instructions ?Recorded ?Last Taken ?Type levothyroxine 75 mcg tablet 75 mcg PO DAILY THYROID 09/06/17 01/29/23 History citalopram 40 mg tablet 40 mg PO DAILY DEPRESSION 12/18/17 01/29/23 History atenolol 50 mg tablet 50 mg PO DAILY BLOOD PRESSURE 01/05/18 04/19/22 History atorvastatin 40 mg tablet 40 mg PO QHS CHOLESTEROL 01/05/18 01/28/23 History albuterol sulfate 0.63 mg/3 mL 0.63 mg inhalation Q4H PRN 07/14/18 1 Week Ago History solution for nebulization Congestion ~10/01/21 pantoprazole 40 mg tablet,delayed 40 mg PO BID GERD 01/16/19 04/19/22 History release oxybutynin chloride 5 mg 5 mg PO DAILY BLADDER 10/08/21 01/29/23 History tablet,extended release 24 hr lisinopril 20 mg tablet 20 mg PO DAILY BLOOD PRESSURE 04/10/22 04/19/22 History clopidogrel 75 mg tablet 75 mg PO QODAY BLOOD THINNER 07/12/22 01/29/23 History melatonin 10 mg sublingual tablet 10 mg PO QHS INSOMNIA #0 tabs 02/12/23 Unknown Rx acetaminophen 500 mg tablet 1,000 mg PO Q6H PRN Pain Score 1-10 02/16/23 Unknown History furosemide 20 mg tablet (Lasix) 20 mg PO DAILY PRN DIURETIC #30 02/20/23 01/29/23 Rx tabs lorazepam 0.5 mg tablet 0.5 mg PO TID 30 days #90 tabs 02/20/23 Unknown Rx bupropion HCl 150 mg tablet,12 hr 150 mg PO DAILY 06/30/23 Unknown History sustained-release gabapentin 100 mg capsule 100 mg PO DAILY 06/30/23 Unknown History meloxicam 15 mg tablet 15 mg PO DAILY 06/30/23 Unknown History quetiapine 50 mg tablet 50 mg PO QHS 05/21/24 Unknown History Allergy/AdvReac Type Severity Reaction Status Date / Time morphine Allergy PT UNSURE Verified 06/30/23 17:43 Penicillins Allergy Hives Verified 06/30/23 17:43 tramadol HCl (From Ultram) Allergy PT UNSURE Verified 06/30/23 17:43 bupropion (From Wellbutrin) AdvReac hallucinati Verified 06/30/23 17:43 ons Family History Father Heart disease of heart attack at age 64 Mother Cancer of cancer at age 72 CVA (cerebral vascular accident) Surgical History History of appendectomy History of coronary artery bypass graft x 3 (~2007) History of coronary artery stent placement (10/10/21) History of left heart catheterization (10/10/21) Hx of cholecystectomy Hx of thyroidectomy Presence of stent in coronary artery (~10/10/21) Social History household members: children and other details: Daughter. housing: house Smoking Status: Heavy Smoker (>10/day) details: Patient denies alcohol use substance use type: does not use ROS ROS Narrative Review of systems: General: Patient denies fever or chills. HENT: Denies headache, denies stuffy nose, denies sore throat EYES: Denies changes in vision or discharge from eyes. Resp: Denies cough, denies shortness of breath Cardiac: Patient admits to chest pain that was substernal, severe, pressure-like and nonradiating as per HPI. GI: Denies abdominal pain, denies changes in bowel, denies nausea vomiting : Denies changes in urination Extremity: Denies swelling Musculoskeletal: Feels somewhat generally weak and unwell but denies arthralgias or myalgias Neuro: Patient denies headache, paresthesias or focal neurologic weakness. Heme: Denies any bleeding or bruising Skin: Denies rashes Psychiatric: No complaints voiced related uncontrolled depression or anxiety. Endocrine: No polyuria, polydipsia or polyphagia. The rest of the 14 point ROS was negative except for positives in HPI. Vital Signs Vital Signs Vital Signs: 06/30/23 17:43 06/30/23 18:20 06/30/23 18:21 Temperature 97.2 F L Temperature Source Temporal Pulse Rate 69 Respiratory Rate 18 Respiratory Effort Normal Respiratory Pattern Normal Blood Pressure 199/80 H Blood Pressure Mean 119 Pulse Ox 94 Oxygen Delivery Method Room Air Room Air 06/30/23 18:32 06/30/23 18:42 06/30/23 18:45 Temperature Temperature Source Pulse Rate 73 69 67 Respiratory Rate 20 H 19 H Respiratory Effort Respiratory Pattern Blood Pressure 205/75 H Blood Pressure Mean Pulse Ox 97 96 Oxygen Delivery Method 06/30/23 18:51 06/30/23 18:52 06/30/23 18:59 Temperature Temperature Source Pulse Rate 70 69 67 Respiratory Rate 28 H Respiratory Effort Respiratory Pattern Blood Pressure 184/77 H 184/77 H 168/75 H Blood Pressure Mean 105 Pulse Ox 95 Oxygen Delivery Method Room Air 06/30/23 19:00 06/30/23 19:00 06/30/23 20:00 Temperature Temperature Source Pulse Rate 68 68 65 Respiratory Rate 30 H 30 H 24 H Respiratory Effort Respiratory Pattern Blood Pressure 168/75 H 180/71 H Blood Pressure Mean 101 104 Pulse Ox 3 91 95 Oxygen Delivery Method 06/30/23 21:00 Temperature Temperature Source Pulse Rate 64 Respiratory Rate 16 Respiratory Effort Respiratory Pattern Blood Pressure 163/76 H Blood Pressure Mean 104 Pulse Ox Oxygen Delivery Method Weight Weight: 124 lb Body Mass Index (BMI) 24.2 Physical Exam Const alert, oriented x3, average body habitus and healthy appearing General Appearance: cooperative HEENT normocephalic, head/scalp atraumatic, hearing grossly normal bilaterally and moist oral mucous membranes Eyes PERRL and EOMs intact bilaterally Neck no lymphadenopathy and supple Resp normal respiratory effort, no retractions, no use of accessory muscles and clear to auscultation bilaterally Cardio regular rate and regular rhythm GI normal to inspection, nondistended, normoactive bowel sounds, soft to palpation, non-tender and non-distended Extremity normal to inspection and full ROM Skin Skin Narrative: Patient has no evidence of rash or jaundice. Neuro oriented x3, CN's II-XII intact bilaterally, moves all extremities and no focal motor deficits Sensorium / Orientation: awake, alert, oriented to person, oriented to place and oriented to time Speech: speech normal Psych affect normal Results Medical Records Data Attestation: I reviewed the patient's medical records Lab / Micro Data Attestation: I reviewed the patient's lab results. 07/01/23 03:25 07/01/23 03:25 Labs: Laboratory Results - last 24 hr 06/30/23 18:20: WBC 8.0, RBC 5.05, Hgb 13.2, Hct 43.7, MCV 86.5, MCH 26.1 L, M CHC 30.2 L, RDW Std Deviation 59.7 H, RDW Coeff of John 19.5 H, Plt Count 341, MPV 9.9, Immature Gran % (Auto) 0.400, Neut % (Auto) 77.8 H, Lymph % (Auto) 12.0 L, Archer % (Auto) 6.3, Eos % (Auto) 3.1, Baso % (Auto) 0.4, Absolute Neuts (auto) 6.2, Absolute Lymphs (auto) 0.96, Nucleated RBC % 0, PT 14.8, INR 1.2, APTT 28.9, Sodium 136, Potassium 3.9, Chloride 101, Carbon Dioxide 29.0, Anion Gap 6, BUN 12, Creatinine 0.90, Estim Creat Clear Calc 41.81, Est GFR (MDRD) Af Amer 79, Est GFR (MDRD) Non-Af 65, BUN/Creatinine Ratio 13.4, Glucose 129 H, Calcium 9.0, Troponin I High Sens 6617 H* 06/30/23 20:55: Troponin I High Sens 32003 H* Imaging Radiology Impression Chest X-Ray 06/30/23 18:32 IMPRESSION: No acute cardiopulmonary pathology Electronically Signed: Hany Desai MD at 18:49 EDT Reading Location ID and State: [facility] / [place] Tel , Service support , Assessment & Plan Assessment/Plan (1) Non-STEMI (non-ST elevated myocardial infarction): (2) CAD (coronary artery disease): QUALIFIERS: Coronary Disease-Associated Artery/Lesion type: habematolel artery [place] vs. transplanted heart: habematolel heart Associated angina: with unstable angina Qualified Code(s): I25.110 - Atherosclerotic heart disease of habematolel coronary artery with unstable angina pectoris (3) Tobacco abuse: (4) History of coronary artery bypass graft x 3: (5) (HFpEF) heart failure with preserved ejection fraction: QUALIFIERS: Heart failure chronicity: chronic Qualified Code(s): I50.32 - Chronic diastolic (congestive) heart failure (6) History of coronary artery bypass graft x 3: (7) Presence of stent in coronary artery: (8) Non-rheumatic mitral regurgitation: PLAN: Plan 1. Non-ST elevation GA; evidenced by initial troponin of 6,617 pg/mL followed by a second troponin elevated to 11,535 pg/mL in the setting of known CAD; s/p non-ST elevation GA and CABG x 3 (2007) with subsequent stent (2021) on chronic Plavix - Admit to PCU. Continue IV heparin, aspirin, Plavix and statin. Serialize troponin. Check echocardiogram to evaluate LVEF. Give Tylenol as needed for [id number] (level 1-5 out of 10) pain or fever. Give Dilaudid 0.5 mg IV every 4 hours as needed for severe (level 6-10 out of 10) pain. [facility] director of procurement already contacted by the ER with plan for left heart cath in the a.m. with help appreciated in advance. 2. Chronic and ongoing tobacco abuse ~1.5 ppd; with subsequent COPD with chronic hypoxic respiratory failure precipitating and complicating #1 - Tobacco cessation will be strongly encouraged. Give nebulizers as needed. Continue supplemental oxygen as previous. 3. Essential hypertension - Continue home regimen plus give IV hydralazine as needed for systolic blood pressure greater than 160 mmHg. 4. Hyperlipidemia - Resume statin and check lipid profile. 5. Hypothyroidism; with history of thyroidectomy to treat thyroid cancer - Continue Synthroid and check TSH in light of the above. 6. History of chronic diastolic CHF; with preserved LVEF ~60% (2022) with previously known nonrheumatic tricuspid valve insufficiency and nonrheumatic mitral regurgitation - Noted with no signs of exacerbation at this time. New echocardiogram ordered for #1. 7. History of secondary arterial hypertension - Noted. 8. History of carotid artery stenosis with a history of TIA/CVA - Noted. Continue enhanced antiplatelet regimen outlined above. 9. History of pneumonia - Noted with no evidence of recurrence at this time. 10. History of rectal cancer - Noted. 11. History of avascular necrosis of the Left femoral head - Noted. 12. Osteoarthritis of the Left hip and DDD; with chronic back pain - Stable. Give Tylenol as needed. 13. History of benzodiazepine dependence - Noted with patient on 3 times daily lorazepam which will be continued. 14. Overactive bladder - Resume current treatment. 15. Depression and anxiety - Home regimen to be continued as previous. 16. Chronic anemia - Stable with normal hemoglobin of 13.2 g/dL present on admission. 17. GERD - Resume Protonix 40 mg p.o. twice daily. 18. History of adult [id number] - Noted. 19. History of listed allergies to both penicillin and morphine - Avoid these agents. 20. DVT prophylaxis - Patient on IV heparin for #1. Total time: Approximately 75 minutes. Charges/Coding Visit Charges Inpatient E&M: 02348 Init Hosp L3
--- NOTE | 2023-06-30 23:02 | ECHOD_ITS ---
Reason For Study: S/P KS Procedure This was a 2D Doppler, Color Flow transthoracic echocardiogram. Exam performed portable in patient room. Left Ventricle Normal LV size. The estimated ejection fraction is 60 %. Stage 2 diastolic dysfunction. No regional wall motion abnormalities noted. Right Ventricle Normal RV size. Normal systolic function. Atria The left atrium is severely enlarged. Normal right atrium. No doppler evidence for ASD. Mitral Valve There is no mitral valve stenosis. Trivial mitral valve insufficiency. Tricuspid Valve There is no tricuspid stenosis. Mild tricuspid valve insufficiency. Pulmonary artery systolic pressure is 60 mmHg. Aortic Valve Trisinus/trileaflet aortic valve. There is no aortic stenosis. Trivial aortic valve insufficiency. Pulmonic Valve There is no pulmonic valvular stenosis. Trivial pulmonic valve insufficiency. Great Vessels Normal aortic root. Pericardium/Pleural No pericardial effusion. MMode/2D Measurements & Calculations LVIDd: 5.1 cm IVSd: 0.97 cm Ao root diam: 2.7 cm LVIDs: 4.0 cm LVPWd: 1.0 cm LA dimension: 4.8 cm FS: 21.4 % LAV(MOD-bp): 117.5 ml LVAd ap4: 27.8 cm2 LVAd ap2: 22.8 cm2 LAV(MOD-bp) Indexed: 79.1 ml/m2 LVLd ap4: 7.4 cm LVLd ap2: 7.3 cm LAV(MOD-sp2): 115.1 ml EDV(MOD-sp4): 89.0 ml EDV(MOD-sp2): 61.2 ml LAV(MOD-sp4): 115.1 ml EDV(sp4-el): 88.2 ml EDV(sp2-el): 60.1 ml LVAs ap4: 17.5 cm2 LVAs ap2: 14.0 cm2 LVLs ap4: 6.3 cm LVLs ap2: 5.7 cm ESV(MOD-sp4): 45.0 ml ESV(MOD-sp2): 31.4 ml ESV(sp4-el): 41.0 ml ESV(sp2-el): 29.3 ml EF(MOD-sp4): 49.4 % EF(MOD-sp2): 48.8 % EF(sp4-el): 53.4 % SV(MOD-sp4): 43.9 ml SV(MOD-sp2): 29.8 ml SV(sp4-el): 47.1 ml LA dimension(2D): 4.8 cm LA A4 area: 29.0 cm2 RA A4 area: 18.8 cm2 TAPSE: 1.7 cm Time Measurements MV dec time: 0.20 sec Doppler Measurements & Calculations MV E max nabil: 91.8 cm/sec Lat Peak E' Nabil: 6.6 cm/sec Med Peak E' Nabil: 5.0 cm/sec MV A max nabil: 38.3 cm/sec E/E' lat: 13.8 E/E' med: 18.2 MV E/A: 2.4 MV V2 max: 89.5 cm/sec MV P1/2t max anbil: 88.0 cm/sec Ao V2 max: 123.7 cm/sec MV max P.2 mmHg MV P1/2t: 65.1 msec Ao max P.1 mmHg MV V2 mean: 52.7 cm/sec MV dec slope: 396.0 cm/sec2 Ao V2 mean: 81.2 cm/sec MV mean P.2 mmHg Ao mean P.0 mmHg MV V2 VTI: 21.9 cm MVA(P1/2t): 3.4 cm2 Ao V2 VTI: 26.0 cm AV (velocity ratio): 0.75 LV V1 max: 87.2 cm/sec MR max nabil: 613.4 cm/sec PA V2 max: 79.7 cm/sec LV V1 max P.0 mmHg MR max P.6 mmHg PA V2 mean: 60.6 cm/sec LV V1 mean P.7 mmHg MR mean nabil: 518.9 cm/sec LV V1 mean: 61.0 cm/sec MR mean P.8 mmHg LV V1 VTI: 19.5 cm MR VTI: 245.0 cm TR max nabil: 338.2 cm/sec TR max P.7 mmHg ECHO/Echo Complete Interpretation Summary The estimated ejection fraction is 60 %. Stage 2 diastolic dysfunction. The left atrium is severely enlarged. Trivial mitral valve insufficiency. Mild tricuspid valve insufficiency. Trivial aortic valve insufficiency. Ordering Physician: Juan Jose Referring Physician: Zully Rojas; Ja Kumar Performed By: Janna Lala, SABINA, RVT
--- NOTE | 2023-06-30 23:02 | EKG12_ITS ---
Test Reason : admissionekg Blood Pressure : / mmHG Vent. Rate : 072 BPM Atrial Rate : 072 BPM P-R Int : 190 ms QRS Dur : 084 ms QT Int : 444 ms P-R-T Axes : 072 068 080 degrees QTc Int : 486 ms Sinus rhythm with Premature atrial complexes Nonspecific ST and T wave abnormality Abnormal ECG When compared with ECG of 30-JUN-2023 19:15, MANUAL COMPARISON REQUIRED, DATA IS UNCONFIRMED Confirmed by Ja Kumar ([id number]), supervising film or videotape editor WALLY LOAIZA ([id number]) on 07/01/2023 1:14:11 PM Referred By: Confirmed By:Ja Kumar
[2023-07-01] VITALS (12 sets, daily range): BP systolic 138–189; BP diastolic 59–92; PULSE 61–96; RESP 12–20; TEMP 36.8–37; O2SAT 93–98
[2023-07-01] MEDS: Nitroglycerin Oint 1 INCH PACKET TD ×4 (00:45→22:39)
[2023-07-01 01:41] LABS: Partial Thromboplast Time 53.8 Seconds (24.1-36.2)
[2023-07-01] MEDS: hydrALAZINE 20 MG/ML Vial 10 MG IV (03:16)
[2023-07-01 03:32] LABS: Hematocrit 38.1 % (37-47); Hemoglobin 11.4 g/dL (12.0-15.0); Mean Corp Hgb Conc 29.9 g/dL (32-36); Mean Corpuscular Hgb 25.8 pg (27.0-32.0); Mean Corpuscular Volume 86.2 fL (81-99); Mean Platelet Vol. 9.5 fl (6.2-12.0); Platelet Count 274 K/mm3 (150-450); RBC Distribution Width CV 18.7 % (11.6-14.6); RBC Distribution Width SD 58.7 fl (35.1-43.9); Red Blood Count 4.42 M/mm3 (4.2-5.4); White Blood Count 6.4 K/mm3 (4.4-11.0)
[2023-07-01 04:01] LABS: Troponin-I HS 12194 pg/mL (3.0-54.0)
[2023-07-01 04:47] LABS: ALB/GLOB Ratio 0.8 RATIO (0.9-2.4); AST(SGOT) 64 U/L (15-37); Alanine Aminotransfer ALT/SGPT 15 U/L (13-56); Albumin, Serum 3.1 g/dL (3.2-5.0); Alkaline Phosphatase 129 U/L (45-117); Anion Gap 8 (5-15); BUN 11 mg/dL (7-18); BUN/Creat Ratio 16.9 RATIO (10-20); Calcium,Total 8.5 mg/dL (8.5-10.1); Chloride 105 mmol/L (98-107); Cholesterol 123 mg/dL (200); Creatinine, Serum 0.65 mg/dL (0.55-1.02); EST Glomerular Filtration Rate 94 mL/min (>60); Est Glom Filt Rate - Afr Amer 114 mL/min (>60); Estimated Creatinine Clearance 42.97 ml/min; Glucose 103 mg/dL (74-106); High Density Lipoprotein 46 mg/dL; Potassium 3.4 mmol/L (3.5-5.1); Protein, Total 7.1 g/dL (6.4-8.2); Sodium Level 140 mmol/L (136-145); Thyroid Stim Hormone (TSH) 1.31 uIU/mL (0.358-3.74); Triglycerides 76 mg/dL; Very Low Density Lipoprotein 15 mg/dL (5-40)
[2023-07-01] MEDS: Levothyroxine 75 MCG Tablet PO (06:37)
[2023-07-01] MEDS: Atenolol 50 MG Tablet PO (06:37)
[2023-07-01] MEDS: Lisinopril 20 MG Tablet PO ×2 (06:37→22:37)
[2023-07-01] MEDS: LORazepam 0.5 MG Tablet PO ×3 (06:38→22:37)
[2023-07-01] MEDS: Aspirin E.C. 81 MG Tablet PO (06:38)
[2023-07-01] MEDS: Potassium Chloride Oral Tablet 20 MEQ 60 MEQ PO (07:43)
--- NOTE | 2023-07-01 08:34 | PCM.CONS.C ---
Assessment & Plan Assessment/Plan (1) Non-STEMI (non-ST elevated myocardial infarction): PLAN: The patient's cardiac enzymes are elevated they were elevated on admission to the emergency department with subtle ST segment changes in V1 and V2. These have resolved back towards baseline but are still slightly abnormal the patient denies any pain like she was experiencing when she had the initial discomfort yesterday. The patient has a history of multiple interventions we note that her 2 vein grafts are occluded her SY to the LAD was patent she has had stenting in the right coronary artery and circumflex the last intervention was October 2021. Given the patient's current psychiatric situation, her lack of ongoing symptoms, her restless leg syndrome and previous right groin issues, I would recommend that we treat this ongoing situation conservatively. We will obtain a 2D echocardiogram as she had an ejection fraction documented in April 2022 is 60%. At this point in time going on 24 hours after her infarct I do not feel it is appropriate to pursue invasive left heart catheterization at this time. I discussed this in detail with the patient's daughter Shyanne who is admitted in room 101. My concern is that given the situation with her psychiatric issues and the timing of her infarct that the risk would be greater than the benefit to be gained at this point in time. However, she had the echo show significant changes or she have recurrent chest symptoms we would reconsider invasive evaluation at that time. (2) History of coronary artery bypass graft x 3: PLAN: Patient is status post bypass graft in 2007 SY to the LAD and vein graft to the marginal branch of the circumflex and the right coronary artery. Both vein grafts are known to be occluded. The patient has had multiple stenting procedures in the right coronary artery and circumflex. (3) Anxiety and depression: PLAN: The patient carries a history of anxiety and depression she was admitted here in January 2023. At that time 8 different psychotropic medications were discontinued per the daughter. Since that time they have changed psychiatrist and he had tried to get her back on appropriate medications but she continues to have hallucinations as described above. She also has restless leg syndrome and I am concerned that given the timing of her infarct and her psychiatric issues that the risk would be greater than the benefit to be gained from invasive evaluation at this time. PLAN: Plan 1. Check 2D echo and adjust medical therapy as indicated. 2. Recommend and will increase DAVID inhibitor therapy for blood better blood pressure control. 3. Will add spironolactone for blood pressure and to adjust for the hypokalemia. HPI Consult Data Date of Consult: 07/01/23 HPI Narrative Reason for Consultation: NSTEMI HPI Narrative: MAURICE WALLACE, is a 78 F who presents with 6 chest discomfort June 30, 2023. She is uncertain how long the chest discomfort has been going on she did tell me that it is completely resolved now and only has some slight changes in her lower left rib cage when she takes a deep breath. Upon presentation the patient is troponin was abnormal and she had subtle ST segment elevation in leads V1 and V2. She was treated with nitroglycerin and heparin with resolution of her chest discomfort. Patient has a history of multiple interventions on her coronary anatomy. The patient underwent her initial coronary bypass graft surgery in 2007. April 2017 she had a left heart cath which showed a left internal mammary artery left anterior descending was patent, saphenous vein graft to the OM branch of the circumflex and saphenous vein graft to the right coronary and both occluded. The [place] mid right coronary artery had a stenosis that was treated with a 2.5 mm x 38 mm Stent she also had a proximal right coronary lesion dilated and stented. She had a repeat catheterization October 2021 she had [place] multivessel coronary disease and had PCI of the mid lateral circumflex and proximal right coronary artery with drug-eluting stents. Subsequently had an echocardiogram April 2022 showed an EF of 60% with stage II diastolic dysfunction moderately enlarged left atrium and moderate pulmonary hypertension with a pulmonary artery pressure of 58. Patient is somewhat confused. Her daughter is admitted also in the PCU in room 101. I actually met with her and she explained to me that her mother had been admitted back in January 2023 for delirium and was diagnosed with dementia and 8 different psychotropic drugs were discontinued at that time. The daughter now blames her mother's current psychiatric issues on these medication changes. She has been seen a psychiatrist in the [facility] system. The daughter also tells me that her mother talks to the inanimate objects and she talks to family members who have been for several years. Was evaluating the patient she would look out the window as if she was talking to someone else and not needed times however she did know her name she did not know the date that she did know she was in [facility]. [facility] Medical History Chronic hypoxic respiratory failure Adult failure to thrive Osteoarthritis of left hip Avascular necrosis of femur head, left Anemia Declining functional status Unable to bear weight on left lower extremity Non-rheumatic mitral regurgitation History of rectal cancer Hemorrhoids, external Carotid artery stenosis CAD (coronary artery disease) Non-ST elevation (NSTEMI) myocardial infarction TIA (transient ischemic attack) CVA (cerebral vascular accident) History of thyroid cancer Depression with anxiety DDD (degenerative disc disease), lumbar H/O: pneumonia Diastolic dysfunction Atherosclerosis of coronary artery bypass graft without angina pectoris Benzodiazepine dependence Back pain COPD (chronic obstructive pulmonary disease) Obstructive sleep apnea Anxiety and depression Hypothyroidism Non-rheumatic tricuspid valve insufficiency Secondary pulmonary arterial hypertension Nicotine dependence Hyperlipidemia Atherosclerosis of coronary artery of [place] heart with angina pectoris Essential (primary) hypertension Home Medications ?Medication ?Instructions ?Recorded ?Last Taken ?Type levothyroxine 75 mcg tablet 75 mcg PO DAILY THYROID 09/06/17 01/29/23 History citalopram 40 mg tablet 40 mg PO DAILY DEPRESSION 12/18/17 01/29/23 History atenolol 50 mg tablet 50 mg PO DAILY BLOOD PRESSURE 01/05/18 04/19/22 History atorvastatin 40 mg tablet 40 mg PO QHS CHOLESTEROL 01/05/18 01/28/23 History albuterol sulfate 0.63 mg/3 mL 0.63 mg inhalation Q4H PRN 07/14/18 1 Week Ago History solution for nebulization Congestion ~10/01/21 pantoprazole 40 mg tablet,delayed 40 mg PO BID GERD 01/16/19 04/19/22 History release oxybutynin chloride 5 mg 5 mg PO DAILY BLADDER 10/08/21 01/29/23 History tablet,extended release 24 hr lisinopril 20 mg tablet 20 mg PO DAILY BLOOD PRESSURE 04/10/22 04/19/22 History clopidogrel 75 mg tablet 75 mg PO QODAY BLOOD THINNER 07/12/22 01/29/23 History melatonin 10 mg sublingual tablet 10 mg PO QHS INSOMNIA #0 tabs 02/12/23 Unknown Rx acetaminophen 500 mg tablet 1,000 mg PO Q6H PRN Pain Score 1-10 02/16/23 Unknown History furosemide 20 mg tablet (Lasix) 20 mg PO DAILY PRN DIURETIC #30 02/20/23 01/29/23 Rx tabs lorazepam 0.5 mg tablet 0.5 mg PO TID 30 days #90 tabs 02/20/23 Unknown Rx bupropion HCl 150 mg tablet,12 hr 150 mg PO DAILY 06/30/23 Unknown History sustained-release gabapentin 100 mg capsule 100 mg PO DAILY 06/30/23 Unknown History meloxicam 15 mg tablet 15 mg PO DAILY 06/30/23 Unknown History quetiapine 50 mg tablet 50 mg PO QHS 06/30/23 Unknown History Allergy/AdvReac Type Severity Reaction Status Date / Time morphine Allergy PT UNSURE Verified 06/30/23 17:43 Penicillins Allergy Hives Verified 06/30/23 17:43 tramadol HCl (From Ultram) Allergy PT UNSURE Verified 06/30/23 17:43 bupropion (From Wellbutrin) AdvReac hallucinati Verified 06/30/23 17:43 ons Family History Father Heart disease of heart attack at age 64 Mother Cancer of cancer at age 72 CVA (cerebral vascular accident) Surgical History Hx of thyroidectomy Presence of stent in coronary artery (~10/10/21) History of left heart catheterization (10/10/21) History of appendectomy Hx of cholecystectomy History of coronary artery stent placement (10/10/21) History of coronary artery bypass graft x 3 (~2007) Social History household members: children and other details: Daughter. housing: house Smoking Status: Heavy Smoker (>10/day) details: Patient denies alcohol use substance use type: does not use ROS ROS Narrative Is very difficult to get review of systems from the patient. She essentially denies anything other than pain in her right groin from any type of manipulation related to a previous catheterization and some pleuritic type discomfort at her left lower rib cage. Constitutional Constitutional: Reports as per HPI Eyes Eyes: Reports as per HPI ENT HEENT: Reports as per HPI Cardiovascular Cardiovascular: Reports as per HPI Respiratory/Chest Respiratory/Chest: Reports as per HPI Gastrointestinal Gastrointestinal: Reports as per HPI Genitourinary Genitourinary: Reports as per HPI Musculoskeletal Musculoskeletal: Reports as per HPI Integumentary Integumentary: Reports as per HPI Neurologic Neurologic: Reports as per HPI Psychiatric Psychiatric: Reports as per HPI Endocrine Endocrinology: Reports as per HPI Hematologic/Lymphatic Hematologic/Lymphatic: Reports as per HPI Allergic/Immunologic Allergic/Immunologic: Reports as per HPI Physical Exam Const alert Constitutional Narrative: The patient is alert but confused and seems to be preoccupied with looking out the window. Orientation / Consciousness: awake HEENT normocephalic HEENT Narrative: Poor dentition Eyes PERRL Neck no JVD and no carotid bruits Chest Chest: midline sternotomy incision Resp normal respiratory effort Auscultation: wheezes expiratory wheezes, inspiratory wheezes and throughout Cardio regular rate, regular rhythm, S1 normal heart sound, S2 normal heart sound, no murmurs, no rub and no gallops Jugular Venous Distention: Negative for JVD Peripheral Pulses: pulses 2+ throughout and femoral pulses present right (Very tender to palpation at the site of previous heart caths) GI soft to palpation Extremity no pedal edema Skin no rashes or lesions noted Neuro Neuro Narrative: Patient seems to move her legs involuntarily and has a complaint of restless leg syndrome. Psych Psych Narrative: The daughter reports the patient having hallucinations and talking to inanimate objects and family members that have been long . Risk Stratification Risk Stratification Applicable: Yes Age >/= 65: Yes >/= 3 CAD Risk Factors (HTN, HLD, DM, family hx of CAD, or current smoker): Yes Aspirin Use in the Past 7 Days: Yes Severe Angina (>/= episodes in 24 hours): Yes EKG ST Changes >/= 0.5mm: Yes Positive Cardiac Marker: Yes SAL Risk Stratification Score: 6 SAL % Risk: 41% Risk Charges/Coding Visit Charges Inpatient E&M: 20305 Init Hosp L3 Objective Data Vital Signs: Vital Signs Temp Pulse Resp BP Pulse Ox O2 Del Method 98.2 F 72 18 173/59 H 94 Room Air 07/01/23 06:30 07/01/23 06:30 07/01/23 06:30 07/01/23 06:30 07/01/23 06:30 07/01/23 06:30 Oxygen Delivery Method Room Air Weight: 117 lb 15.157 oz Body Mass Index (BMI) 23.0 Intake & Output: Intake and Output for Last 24 Hours 06/29/23 06/30/23 07/01/23 23:59 23:59 23:59 Intake Total 50.87 / 50.87 Output Total 250 / 250 Balance -199.13 / -199.13 Lab / Micro Data Attestation: I reviewed the patient's lab results. 07/01/23 03:25 07/01/23 03:25 Labs: Laboratory Results - last 24 hr 06/30/23 18:20: WBC 8.0, RBC 5.05, Hgb 13.2, Hct 43.7, MCV 86.5, MCH 26.1 L, MCHC 30.2 L, RDW Std Deviation 59.7 H, RDW Coeff of John 19.5 H, Plt Count 341, MPV 9.9, Immature Gran % (Auto) 0.400, Neut % (Auto) 77.8 H, Lymph % (Auto) 12.0 L, [place] % (Auto) 6.3, Eos % (Auto) 3.1, Baso % (Auto) 0.4, Absolute Neuts (auto) 6.2, Absolute Lymphs (auto) 0.96, Nucleated RBC % 0, PT 14.8, INR 1.2, APTT 28.9, Sodium 136, Potassium 3.9, Chloride 101, Carbon Dioxide 29.0, Anion Gap 6, BUN 12, Creatinine 0.90, Estim Creat Clear Calc 41.81, Est GFR (MDRD) Af Amer 79, Est GFR (MDRD) Non-Af 65, BUN/Creatinine Ratio 13.4, Glucose 129 H, Calcium 9.0, Troponin I High Sens 6617 H* 06/30/23 20:55: Troponin I [place] Sens 93184 H* 07/01/23 00:10: APTT 53.8 H 07/01/23 03:25: WBC 6.4, RBC 4.42, Hgb 11.4 L, Hct 38.1, MCV 86.2, MCH 25.8 L, MCHC 29.9 L, RDW Std Deviation 58.7 H, RDW Coeff of John 18.7 H, Plt Count 274, MPV 9.5, Sodium 140, Potassium 3.4 L, Chloride 105, Carbon Dioxide 27.0, Anion Gap 8, BUN 11, Creatinine 0.65, Estim Creat Clear Calc 42.97, Est GFR (MDRD) Af Amer 114, Est GFR (MDRD) Non-Af 94, BUN/Creatinine Ratio 16.9, Glucose 103, Calcium 8.5, Total Bilirubin 0.80, AST 64 H, ALT 15, Alkaline Phosphatase 129 H, Troponin I High Sens 22356 H*, Total Protein 7.1, Albumin 3.1 L, Globulin 4.0, Albumin/Globulin Ratio 0.8 L, Triglycerides 76, Cholesterol 123, LDL Cholesterol 62, VLDL Cholesterol 15, HDL Cholesterol 46, TSH 1.31 Rhythm Strip Rhythm Strip: Sinus Rhythm Rate: 75 Cardiology Labs/Tests 06/30/23 18:20: WBC 8.0, RBC 5.05, Hgb 13.2, Hct 43.7, MCV 86.5, MCH 26.1 L, MCHC 30.2 L, Plt Count 341, MPV 9.9, Immature Gran % (Auto) 0.400, Neut % (Auto) 77.8 H, Lymph % (Auto) 12.0 L, [place] % (Auto) 6.3, Eos % (Auto) 3.1, Baso % (Auto) 0.4, Absolute Neuts (auto) 6.2, Nucleated RBC % 0, PT 14.8, INR 1.2, APTT 28.9, Sodium 136, Potassium 3.9, Chloride 101, Carbon Dioxide 29.0, Anion Gap 6, BUN 12, Creatinine 0.90, Est GFR (MDRD) Af Amer 79, Est GFR (MDRD) Non-Af 65, BUN/Creatinine Ratio 13.4, Glucose 129 H, Calcium 9.0 07/01/23 00:10: APTT 53.8 H 07/01/23 03:25: WBC 6.4, RBC 4.42, Hgb 11.4 L, Hct 38.1, MCV 86.2, MCH 25.8 L, MCHC 29.9 L, Plt Count 274, MPV 9.5, Sodium 140, Potassium 3.4 L, Chloride 105, Carbon Dioxide 27.0, Anion Gap 8, BUN 11, Creatinine 0.65, Est GFR (MDRD) Af Amer 114, Est GFR (MDRD) Non-Af 94, BUN/Creatinine Ratio 16.9, Glucose 103, Calcium 8.5, Total Bilirubin 0.80, Triglycerides 76, Cholesterol 123, LDL Cholesterol 62, VLDL Cholesterol 15, HDL Cholesterol 46 Rhythm: EKG: ECHO: Stress Test: Cardiac Cath: PCI: CT Surgery: Holter monitor: EPS: PPM: CXR: Chest CT Scan: Radiography Diagnostic Testing: Radiology Impression Chest X-Ray 06/30/23 18:32 IMPRESSION: No acute cardiopulmonary pathology Electronically Signed: Hany Desai MD at 18:49 EDT Reading Location ID and State: [facility] / ID Tel , Service support ,
[2023-07-01] MEDS: Pantoprazole Sodium 40 MG Tablet PO ×2 (10:17→22:37)
[2023-07-01] MEDS: Tolterodine Tartrate 2 MG CAP.SA PO (10:17)
[2023-07-01] MEDS: Citalopram 40 MG TABLET PO (10:18)
[2023-07-01] MEDS: buPROPion 100 MG Tablet PO (10:19)
--- NOTE | 2023-07-01 11:10 | PN.HOSP_ITS ---
Reason for Visit Reason for Visit: Diagnoses Major depressive disorder, single episode, unspecified (06/30/23) Anxiety disorder, unspecified (06/30/23) Non-ST elevation (NSTEMI) myocardial infarction (06/30/23) Atherosclerotic heart disease of [place] coronary artery without angina pectoris (06/30/23) Atherosclerotic heart disease of [place] coronary artery with unstable angina pectoris (06/30/23) Nonrheumatic mitral (valve) insufficiency (06/30/23) Unspecified diastolic (congestive) heart failure (06/30/23) Chronic diastolic (congestive) heart failure (06/30/23) Tobacco use (06/30/23) Presence of aortocoronary bypass graft (06/30/23) Presence of coronary angioplasty implant and graft (06/30/23) Subjective Subjective Patient is a 78-year-old lady who presented with chest pain. She was found to have elevated troponin consistent with acute non-STEMI treatment initiated per protocol admitted to monitored bed for further management Objective Data Objective Data Vital Signs: Vital Signs Temp Pulse Resp BP Pulse Ox O2 Del Method 98.3 F 61 12 182/65 H 96 Room Air 07/01/23 10:15 07/01/23 10:15 07/01/23 10:15 07/01/23 10:15 07/01/23 10:15 07/01/23 10:15 Oxygen Delivery Method Room Air Weight: 53.5 kg Body Mass Index (BMI) 23.0 Intake & Output: Intake and Output for Last 24 Hours 06/29/23 06/30/23 07/01/23 23:59 23:59 23:59 Intake Total 50.87 / 50.87 Output Total 250 / 250 Balance -199.13 / -199.13 Lab / Micro Data 07/01/23 03:25 07/01/23 03:25 Labs: Laboratory Results - last 24 hr 06/30/23 18:20: WBC 8.0, RBC 5.05, Hgb 13.2, Hct 43.7, MCV 86.5, MCH 26.1 L, M CHC 30.2 L, RDW Std Deviation 59.7 H, RDW Coeff of John 19.5 H, Plt Count 341, MPV 9.9, Immature Gran % (Auto) 0.400, Neut % (Auto) 77.8 H, Lymph % (Auto) 12.0 L, [place] % (Auto) 6.3, Eos % (Auto) 3.1, Baso % (Auto) 0.4, Absolute Neuts (auto) 6.2, Absolute Lymphs (auto) 0.96, Nucleated RBC % 0, PT 14.8, INR 1.2, APTT 28.9, Sodium 136, Potassium 3.9, Chloride 101, Carbon Dioxide 29.0, Anion Gap 6, BUN 12, Creatinine 0.90, Estim Creat Clear Calc 41.81, Est GFR (MDRD) Af Amer 79, Est GFR (MDRD) Non-Af 65, BUN/Creatinine Ratio 13.4, Glucose 129 H, Calcium 9.0, Troponin I High Sens 6617 H* 06/30/23 20:55: Troponin I High Sens 94677 H* 07/01/23 00:10: APTT 53.8 H 07/01/23 03:25: WBC 6.4, RBC 4.42, Hgb 11.4 L, Hct 38.1, MCV 86.2, MCH 25.8 L, M CHC 29.9 L, RDW Std Deviation 58.7 H, RDW Coeff of John 18.7 H, Plt Count 274, MPV 9.5, Sodium 140, Potassium 3.4 L, Chloride 105, Carbon Dioxide 27.0, Anion Gap 8, BUN 11, Creatinine 0.65, Estim Creat Clear Calc 42.97, Est GFR (MDRD) Af Amer 114, Est GFR (MDRD) Non-Af 94, BUN/Creatinine Ratio 16.9, Glucose 103, Calcium 8.5, Total Bilirubin 0.80, AST 64 H, ALT 15, Alkaline Phosphatase 129 H, Troponin I High Sens [id number] H*, Total Protein 7.1, Albumin 3.1 L, Globulin 4.0, A lbumin/Globulin Ratio 0.8 L, Triglycerides 76, Cholesterol 123, LDL Cholesterol 62, VLDL Cholesterol 15, HDL Cholesterol 46, TSH 1.31 07/01/23 08:07: APTT 65.0 H Radiography Diagnostic Testing: Radiology Impression Chest X-Ray 06/30/23 18:32 IMPRESSION: No acute cardiopulmonary pathology Electronically Signed: Hany Desai MD at 18:49 EDT , Echocardiogram 06/30/23 23:02 Interpretation Summary The estimated ejection fraction is 60 %. Stage 2 diastolic dysfunction. The left atrium is severely enlarged. Trivial mitral valve insufficiency. Mild tricuspid valve insufficiency. Trivial aortic valve insufficiency. Ordering Physician: Juan Jose Referring Physician: Zully Rojas; Ja Kumar Performed By: Janna Lala, SABINA, RVT Rhythm Strip Rhythm Strip: Sinus Rhythm Rate: 75 Physical Exam Narrative GENERAL: cooperative HEENT: Atraumatic; normocephalic EYES; Anicteric, Normal Conjunctiva NECK; supple, normal thyroid, RESPIRATORY: Diminished to auscultation CARDIOVASCULAR: Regular S1 S2, GI: soft, normoactive bowel sounds, : No Renal angle tenderness; EXTREMITIES: No edema, no clubbing, MUSCULOSKELETAL: no muscle wasting NEURO: Awake; no lateralizing signs. SKIN: No Rash PSYCH; Flat affect Skin Skin Narrative: Patient has no evidence of rash or jaundice. Assessment & Plan Assessment/Plan (1) Non-STEMI (non-ST elevated myocardial infarction): (2) (HFpEF) heart failure with preserved ejection fraction: QUALIFIERS: Heart failure chronicity: chronic Qualified Code(s): I50.32 - Chronic diastolic (congestive) heart failure PLAN: Plan Patient is a 78-year-old lady who presented with chest pain. She was found to have elevated troponin consistent with acute non-STEMI treatment initiated per protocol admitted to monitored bed for further management 1. Acute non-STEMI ? Patient troponin peaked at 11,535. Admitted to a monitored bed treatment initiated per protocol echo ordered. Consult was placed to cardiology patient was seen by Dr. Kumar recommended conservative management given patient underlying psych issues 2. Hypertension ? Blood pressure controlled, home medications continued with dose adjustment as needed 3. Coronary artery disease ? With previous CABG and subsequent stent placement. Plan is to continue with optimization of medical therapy 4. Dyslipidemia ?Patient is on statin therapy, continued at home dose 5. Hypothyroidism ? Patient is on levothyroxine home dose continued 6. Tobacco dependence ? Counseled on cessation, offered nicotine patch for tobacco cravings 7. Chronic congestive heart failure with preserved ejection fraction ? Echo from 2022 demonstrated LVEF of 60%. Patient remains compensated 8. History of rectal CA ? Currently remission 9. 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 Pain meds as needed 10. GERD ? On PPI 11. Depression with anxiety ? Patient is on citalopram as well as lorazepam 12. COPD ? Currently not in exacerbation aerosol treatment as needed 13. DVT prophylaxis ? SC Lovenox Time spent in the patient's overall evaluation,decision-making process, review of diagnostic data, adjustment of management, discussion with other providers, nursing nursing and ancillary staff involved in patient's care documentation, 54 Minutes Advance planning; did discuss with the patient and family regarding advanced directives as well as CODE STATUS. Did explain the various scenarios involved ( FULL CODE, DNR CCA, DNR CCA with no intubation, and DNR CC and what each meant) patient elected to be DNR CCA no intubation. Order was placed. Time spent on discussion 16 minutes. Charges/Coding Visit Charges Inpatient E&M: 47632 Subs Hosp L3 Procedures Hospitalists Procedures: 95283 Advncd Care Plan 30 Min
[2023-07-01] MEDS: Spironolactone 25 MG Tablet PO (12:47)
[2023-07-01] MEDS: guaiFENesin 1,200 MG Tablet 1200 MG PO ×2 (12:48→22:37)
--- NOTE | 2023-07-01 12:53 | CASEMGMT ---
JOHN BYRNES Assessment Face to Face with patient for initial transition planning/care coordination assessment. RN FITZ introduced self and role at [facility], pt voices understanding. Pt is A&Ox4 and is resting comfortably in bed and is calm. Care providers, pharmacy, and demographics verified. Admitting dx: NSTEMI PCP: Crystal Specialists: ADRIANNA Preferred Pharmacy: [facility] Insurance: AARP MCR ADV Prescription Benefit: Yes LNOK: Shyanne Kim ([facility]), Santa Kim ([facility]) Living Arrangements: Pt lives with her daughter Santa in a single story home with 3 steps to enter ADLs/IADLs: Daughter assists pt at home Transportation: Both of the pt daughters help her with transportation DME: Shower chair. Cane. FWW. Electric W/C. Grab bars. HHC/SNF: History with [facility] HH and TCU Pt?s goal: Home with CCN Plan: Pt states that she plans to DC home once medically ready. Pt states that she would like to have someone come to the home to listen to her heart and help with education. Pt states that she is active in the community so she may not qualify for skilled HH. Pt refuses the need for skilled PT or OT as well. This RN FITZ educated the pt about CCN and pt states she would like this set up. TC to Cr at this time, no answer. VM left. CM to follow for safe DC home from [facility]. Wen Matt RN, CM
--- NOTE | 2023-07-01 13:02 | PN.CARD_ITS ---
Subjective Subjective The patient is echocardiogram done this morning essentially shows no change from the 1 in April 2022. Her LV function is still normal with an ejection fraction of 60%. Given these findings I do not feel that we should proceed with invasive evaluation at this time. Should the patient have recurrent symptoms with ischemic EKG changes we will have to reconsider an invasive evaluation. I would recommend we continue Plavix and aspirin as well as switching her from nitroglycerin paste to oral Imdur 30 mg daily tomorrow morning. Patient is already on statin therapy in her home environment as well as beta-estefania or DAVID inhibitor therapy. We did need to get her blood pressure better controlled and we had just adjusted her DAVID and added spironolactone today. Objective Data Vital Signs: Vital Signs Temp Pulse Resp BP Pulse Ox O2 Del Method 98.3 F 61 12 182/65 H 96 Room Air 07/01/23 10:15 07/01/23 10:15 07/01/23 10:15 07/01/23 10:15 07/01/23 10:15 07/01/23 10:15 Oxygen Delivery Method Room Air Weight: 117 lb 15.157 oz Body Mass Index (BMI) 23.0 Intake & Output: Intake and Output for Last 24 Hours 06/29/23 06/30/23 07/01/23 23:59 23:59 23:59 Intake Total 129.80 / 129.80 Output Total 250 / 250 Balance -120.20 / -120.20 Lab / Micro Data 07/01/23 03:25 07/01/23 03:25 Labs: Laboratory Results - last 24 hr 06/30/23 18:20: WBC 8.0, RBC 5.05, Hgb 13.2, Hct 43.7, MCV 86.5, MCH 26.1 L, M CHC 30.2 L, RDW Std Deviation 59.7 H, RDW Coeff of John 19.5 H, Plt Count 341, MPV 9.9, Immature Gran % (Auto) 0.400, Neut % (Auto) 77.8 H, Lymph % (Auto) 12.[address] L, [place] % (Auto) 6.3, Eos % (Auto) 3.1, Baso % (Auto) 0.4, Absolute Neuts (auto) 6.2, Absolute Lymphs (auto) 0.96, Nucleated RBC % 0, PT 14.8, INR 1.2, APTT 28.9, Sodium 136, Potassium 3.9, Chloride 101, Carbon Dioxide 29.0, Anion Gap 6, BUN 12, Creatinine 0.90, Estim Creat Clear Calc 41.81, Est GFR (MDRD) Af Amer 79, Est GFR (MDRD) Non-Af 65, BUN/Creatinine Ratio 13.4, Glucose 129 H, Calcium 9.0, Troponin I High Sens 6617 H* 06/30/23 20:55: Troponin I High Sens 01657 H* 07/01/23 00:10: APTT 53.8 H 07/01/23 03:25: WBC 6.4, RBC 4.42, Hgb 11.4 L, Hct 38.1, MCV 86.2, MCH 25.8 L, M CHC 29.9 L, RDW Std Deviation 58.7 H, RDW Coeff of John 18.7 H, Plt Count 274, MPV 9.5, Sodium 140, Potassium 3.4 L, Chloride 105, Carbon Dioxide 27.0, Anion Gap 8, BUN 11, Creatinine 0.65, Estim Creat Clear Calc 42.97, Est GFR (MDRD) Af Amer 114, Est GFR (MDRD) Non-Af 94, BUN/Creatinine Ratio 16.9, Glucose 103, Calcium 8.5, Total Bilirubin 0.80, AST 64 H, ALT 15, Alkaline Phosphatase 129 H, Troponin I High Sens 57323 H*, Total Protein 7.1, Albumin 3.1 L, Globulin 4.0, A lbumin/Globulin Ratio 0.8 L, Triglycerides 76, Cholesterol 123, LDL Cholesterol 62, VLDL Cholesterol 15, HDL Cholesterol 46, TSH 1.31 07/01/23 08:07: APTT 65.0 H Rhythm Strip Rhythm Strip: Sinus Rhythm Rate: 75 Cardiology Labs/Tests 06/30/23 18:20: WBC 8.0, RBC 5.05, Hgb 13.2, Hct 43.7, MCV 86.5, MCH 26.1 L, M CHC 30.2 L, Plt Count 341, MPV 9.9, Immature Gran % (Auto) 0.400, Neut % (Auto) 77.8 H, Lymph % (Auto) 12.[address] L, [place] % (Auto) 6.3, Eos % (Auto) 3.1, Baso % (Auto) 0.4, Absolute Neuts (auto) 6.2, Nucleated RBC % 0, PT 14.8, INR 1.2, APTT 28.9, Sodium 136, Potassium 3.9, Chloride 101, Carbon Dioxide 29.0, Anion Gap 6, BUN 12, Creatinine 0.90, Est GFR (MDRD) Af Amer 79, Est GFR (MDRD) Non-Af 65, BUN/Creatinine Ratio 13.4, Glucose 129 H, Calcium 9.0 07/01/23 00:10: APTT 53.8 H 07/01/23 03:25: WBC 6.4, RBC 4.42, Hgb 11.4 L, Hct 38.1, MCV 86.2, MCH 25.8 L, M CHC 29.9 L, Plt Count 274, MPV 9.5, Sodium 140, Potassium 3.4 L, Chloride 105, Carbon Dioxide 27.0, Anion Gap 8, BUN 11, Creatinine 0.65, Est GFR (MDRD) Af Amer 114, Est GFR (MDRD) Non-Af 94, BUN/Creatinine Ratio 16.9, Glucose 103, Calcium 8.5, Total Bilirubin 0.80, Triglycerides 76, Cholesterol 123, LDL Cholesterol 62, VLDL Cholesterol 15, HDL Cholesterol 46 07/01/23 08:07: APTT 65.0 H Rhythm: EKG: ECHO: Stress Test: Cardiac Cath: PCI: CT Surgery: Holter monitor: EPS: PPM: CXR: Chest CT Scan: Radiography Diagnostic Testing: Radiology Impression Chest X-Ray 06/30/23 18:32 IMPRESSION: No acute cardiopulmonary pathology Electronically Signed: Hany Desai MD at 18:49 EDT , Echocardiogram 06/30/23 23:02 Interpretation Summary The estimated ejection fraction is 60 %. Stage 2 diastolic dysfunction. The left atrium is severely enlarged. Trivial mitral valve insufficiency. Mild tricuspid valve insufficiency. Trivial aortic valve insufficiency. Ordering Physician: Juan Jose Referring Physician: Zully Rojas; Ja Kumar Performed By: Janna Lala, SABINA, RVT
[2023-07-01] MEDS: Ipratropium/Albuterol Sulfate 3 ML AMPUL.NEB INHALATION ×3 (15:23→23:22)
[2023-07-01] MEDS: MELATONIN 10 MG TABLET PO (22:37)
[2023-07-01] MEDS: Atorvastatin Calcium 40 MG Tablet PO (22:37)
[2023-07-02] VITALS (7 sets, daily range): BP systolic 126–169; BP diastolic 65–84; PULSE 68–89; RESP 14–19; TEMP 36.1–36.9; O2SAT 92–96
[2023-07-02] MEDS: Levothyroxine 75 MCG Tablet PO (06:17)
[2023-07-02] MEDS: LORazepam 0.5 MG Tablet PO (06:17)
[2023-07-02] MEDS: Nitroglycerin Oint 1 INCH PACKET TD (06:17)
--- NOTE | 2023-07-02 07:46 | PCM.PN.HOSP ---
Reason for Visit Reason for Visit: Diagnoses Major depressive disorder, single episode, unspecified (06/30/23) Anxiety disorder, unspecified (06/30/23) Non-ST elevation (NSTEMI) myocardial infarction (06/30/23) Atherosclerotic heart disease of resighini coronary artery without angina pectoris (06/30/23) Atherosclerotic heart disease of resighini coronary artery with unstable angina pectoris (06/30/23) Nonrheumatic mitral (valve) insufficiency (06/30/23) Unspecified diastolic (congestive) heart failure (06/30/23) Chronic diastolic (congestive) heart failure (06/30/23) Tobacco use (06/30/23) Presence of aortocoronary bypass graft (06/30/23) Presence of coronary angioplasty implant and graft (06/30/23) Subjective Subjective Patient 2D echo demonstrated normal ejection fraction of 60% with no significant wall motion abnormalities. Plan is for patient to be discharged home with optimization of medical therapy Objective Data Objective Data Vital Signs: Vital Signs Temp Pulse Resp BP Pulse Ox O2 Del Method 97 F L 75 16 145/75 H 93 Room Air 07/02/23 04:00 07/02/23 06:17 07/02/23 04:00 07/02/23 06:17 07/02/23 04:00 07/02/23 04:00 Oxygen Delivery Method Room Air Weight: 53.5 kg Body Mass Index (BMI) 23.0 Intake & Output: Intake and Output for Last 24 Hours 06/30/23 07/01/23 07/02/23 23:59 23:59 23:59 Intake Total 129.80 / 129.80 Output Total 250 / 250 250 / 250 Balance -120.20 / -120.20 -250 / -250 Medical Nutrition Assessment Dietitian: Malnutrition Criteria Met Start: 07/01/23 16:06 Freq: Status: Active Protocol: Document 07/01/23 16:06 RMA (Rec: 07/01/23 16:06 RMA [id number]) Nutrition Malnutrition Evidence of Malnutrition Exists Yes Malnutrition (severe): Chronic Evidenced By Suboptimal Energy Intake ( Severe),Weight Loss (Severe) Clinical Problem Chronic Disease or Condition Related Malnutrition Etiology severe protein-calorie malnutrition in the context of chronic disease/debility related to increased energy expenditure and inadequate energy intake Signs/Symptoms as evidenced by ~11% unintentional weight loss x less than 6 months and PO meeting less than 50% estimated nutrition needs x past 3-6 months Status Active Problem Recommendation Dietitian Recommendations/Changes Will change diet to cardiac given chronic medical conditions noted. Will add 120mL ensure plus HP 3 times per day w/ meals. Will add magic cup w/ lunch and dinner for tolerance. Consider MOTOR ASSEMBLY SUPERVISOR swallowing evaluation as needed. Adjust ONS to prevent further carlita/pro depletion. Lab / Micro Data 07/01/23 03:25 07/01/23 03:25 Labs: Laboratory Results - last 24 hr 07/01/23 08:07: APTT 65.0 H Radiography Diagnostic Testing: Radiology Impression Echocardiogram 06/30/23 23:02 Interpretation Summary The estimated ejection fraction is 60 %. Stage 2 diastolic dysfunction. The left atrium is severely enlarged. Trivial mitral valve insufficiency. Mild tricuspid valve insufficiency. Trivial aortic valve insufficiency. Ordering Physician: Juan Jose Referring Physician: Zully Rojas; Ja Kumar Performed By: Janna Lala RDCS, RVT Rhythm Strip Rhythm Strip: Sinus Rhythm Rate: 75 Physical Exam Narrative GENERAL: cooperative HEENT: Atraumatic; normocephalic EYES; Anicteric, Normal Conjunctiva NECK; supple, normal thyroid, RESPIRATORY: Diminished to auscultation CARDIOVASCULAR: Regular S1 S2, GI: soft, normoactive bowel sounds, : No Renal angle tenderness; EXTREMITIES: No edema, no clubbing, MUSCULOSKELETAL: no muscle wasting NEURO: Awake; no lateralizing signs. SKIN: No Rash PSYCH; Flat affect Assessment & Plan Assessment/Plan (1) Non-STEMI (non-ST elevated myocardial infarction): (2) (HFpEF) heart failure with preserved ejection fraction: QUALIFIERS: Heart failure chronicity: chronic Qualified Code(s): I50.32 - Chronic diastolic (congestive) heart failure PLAN: Plan Patient is a 78-year-old lady who presented with chest pain. She was found to have elevated troponin consistent with acute non-STEMI treatment initiated per protocol admitted to monitored bed for further management 1. Acute non-STEMI ? Patient troponin peaked at 11,535. Admitted to a monitored bed treatment initiated per protocol echo ordered. Consult was placed to cardiology patient was seen by Dr. Kumar recommended conservative management given patient underlying psych issues -07/02/2023;Patient 2D echo demonstrated normal ejection fraction of 60% with no significant wall motion abnormalities. Plan is for patient to be discharged home with optimization of medical therapy 2. Hypertension ? Blood pressure controlled, home medications continued with dose adjustment as needed 3. Coronary artery disease ? With previous CABG and subsequent stent placement. Plan is to continue with optimization of medical therapy 4. Dyslipidemia ?Patient is on statin therapy, continued at home dose 5. Hypothyroidism ? Patient is on levothyroxine home dose continued 6. Tobacco dependence ? Counseled on cessation, offered nicotine patch for tobacco cravings 7. Chronic congestive heart failure with preserved ejection fraction ? Echo from 2022 demonstrated LVEF of 60%. Patient remains compensated 8. History of rectal CA ? Currently remission 9. 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 Pain meds as needed 10. GERD ? On PPI 11. Depression with anxiety ? Patient is on citalopram as well as lorazepam 12. COPD ? Currently not in exacerbation aerosol treatment as needed 13. DVT prophylaxis ? SC Lovenox Time spent in the patient's overall evaluation,decision-making process, review of diagnostic data, adjustment of management, discussion with other providers, nursing nursing and ancillary staff involved in patient's care documentation, 35 Minutes
--- NOTE | 2023-07-02 08:19 | PN.CARD_ITS ---
Subjective Subjective The patient is resting comfortably in the bed flat. She denies any chest pain denies any shortness of breath PND orthopnea. The patient's echocardiogram showed a normal ejection fraction of 60% with no significant wall motion abnormalities. Given her overall situation I feel that continued medical therapy is the best option for treatment. I discussed this with the patient and she agreed. Objective Data Vital Signs: Vital Signs Temp Pulse Resp BP Pulse Ox O2 Del Method 97 F L 75 16 145/75 H 93 Room Air 07/02/23 04:00 07/02/23 06:17 07/02/23 04:00 07/02/23 06:17 07/02/23 04:00 07/02/23 04:00 Oxygen Delivery Method Room Air Weight: 117 lb 15.157 oz Body Mass Index (BMI) 23.0 Intake & Output: Intake and Output for Last 24 Hours 06/30/23 07/01/23 07/02/23 23:59 23:59 23:59 Intake Total 129.80 / 129.80 Output Total 250 / 250 250 / 250 Balance -120.20 / -120.20 -250 / -250 Lab / Micro Data Attestation: I reviewed the patient's lab results. 07/01/23 03:25 07/01/23 03:25 Labs: Laboratory Results - last 24 hr 07/01/23 08:07: APTT 65.0 H Cardiology Labs/Tests 07/01/23 08:07: APTT 65.0 H Rhythm: EKG: ECHO: Stress Test: Cardiac Cath: PCI: CT Surgery: Holter monitor: EPS: PPM: CXR: Chest CT Scan: Radiography Diagnostic Testing: Radiology Impression Echocardiogram 06/30/23 23:02 Interpretation Summary The estimated ejection fraction is 60 %. Stage 2 diastolic dysfunction. The left atrium is severely enlarged. Trivial mitral valve insufficiency. Mild tricuspid valve insufficiency. Trivial aortic valve insufficiency. Ordering Physician: Juan Jose Referring Physician: Zully Rojas; Ja Kumar Performed By: Janna Lala RDCS, RVT Physical Exam Const alert HEENT normocephalic Eyes EOMs intact bilaterally Neck no JVD Chest inspection of chest normal Chest: midline sternotomy incision Resp normal respiratory effort and clear to auscultation bilaterally Cardio regular rate, regular rhythm, S1 normal heart sound, S2 normal heart sound, no murmurs, no rub and no gallops GI soft to palpation Extremity no pedal edema Skin no rashes or lesions noted Assessment & Plan Assessment/Plan (1) Non-STEMI (non-ST elevated myocardial infarction): PLAN: The patient's echocardiogram shows normal LV function with a EF of 60% which is unchanged from her old evaluation. She denies any chest pain. Her enzymes were positive suggestive of some small vessel disease. Given the fact she remains asymptomatic at this time I would recommend that we continue her current oral medical therapy and she can be discharged home to follow-up in the office at the [facility]. The patient may prefer to follow-up with the [facility] is that is where her psychiatric care is being obtained. PLAN: Plan We will sign off if further assistance is needed please call. Charges/Coding Visit Charges Inpatient E&M: 81798 Subs Hosp L2
[2023-07-02] MEDS: Tolterodine Tartrate 2 MG CAP.SA PO (09:27)
[2023-07-02] MEDS: guaiFENesin 1,200 MG Tablet 1200 MG PO (09:27)
[2023-07-02] MEDS: Citalopram 40 MG TABLET PO (09:28)
[2023-07-02] MEDS: Pantoprazole Sodium 40 MG Tablet PO (09:28)
[2023-07-02] MEDS: buPROPion 100 MG Tablet PO (09:28)
[2023-07-02] MEDS: Clopidogrel Bisulfate 75 MG Tablet PO (09:28)
[2023-07-02] MEDS: Aspirin E.C. 81 MG Tablet PO (09:28)
[2023-07-02] MEDS: Lisinopril 20 MG Tablet PO (09:29)
[2023-07-02] MEDS: Spironolactone 25 MG Tablet PO (09:30)
[2023-07-02] MEDS: Atenolol 50 MG Tablet PO (09:30)
--- NOTE | 2023-07-02 09:39 | DS.PCM_ITS ---
Providers Date of Admission: 06/30/23 Date of Discharge: 07/02/23 Primary Care Physician: Dr. Zully Rojas MD Consultations 06/30/23 23:02 Consult: Cardiology Routine Consulting Provider: Jerome Maciel Reason for Consult: Non-STEMI EMERGENT Consult: No Notified: No Date Notified: 06/30/23 Time Notified: 22:20 Method of Consult:: In-Person Reason For Visit: NON-STEMI Diagnosis Discharge Diagnosis (1) Non-STEMI (non-ST elevated myocardial infarction): Status: Acute Code(s): I21.4 - Non-ST elevation (NSTEMI) myocardial infarction (2) (HFpEF) heart failure with preserved ejection fraction: Status: Acute Code(s): I50.30 - Unspecified diastolic (congestive) heart failure Qualifiers: Heart failure chronicity: chronic Qualified Code(s): I50.32 - Chronic diastolic (congestive) heart failure Plan Patient is a 78-year-old lady who presented with chest pain. She was found to have elevated troponin consistent with acute non-STEMI treatment initiated per protocol admitted to monitored bed for further management 1. Acute non-STEMI ? Patient troponin peaked at 11,535. Admitted to a monitored bed treatment initiated per protocol echo ordered. Consult was placed to cardiology patient was seen by Dr. Kumar recommended conservative management given patient underlying psych issues -07/02/2023;Patient 2D echo demonstrated normal ejection fraction of 60% with no significant wall motion abnormalities. Plan is for patient to be discharged home with optimization of medical therapy 2. Hypertension ? Blood pressure controlled, home medications continued with dose adjustment as needed 3. Coronary artery disease ? With previous CABG and subsequent stent placement. Plan is to continue with optimization of medical therapy 4. Dyslipidemia ?Patient is on statin therapy, continued at home dose 5. Hypothyroidism ? Patient is on levothyroxine home dose continued 6. Tobacco dependence ? Counseled on cessation, offered nicotine patch for tobacco cravings 7. Chronic congestive heart failure with preserved ejection fraction ? Echo from 2022 demonstrated LVEF of 60%. Patient remains compensated 8. History of rectal CA ? Currently remission 9. 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 Pain meds as needed 10. GERD ? On PPI 11. Depression with anxiety ? Patient is on citalopram as well as lorazepam 12. COPD ? Currently not in exacerbation aerosol treatment as needed 13. DVT prophylaxis ? SC Lovenox Patient has a diagnosis of COPD will require nebulizer at home for treatment. Time spent in the patient's overall evaluation,decision-making process, review of diagnostic data, adjustment of management, discussion with other providers, nursing nursing and ancillary staff involved in patient's care documentation, 35 Minutes Medications at Discharge Home Medications levothyroxine 75 mcg tablet 75 mcg PO DAILY THYROID 09/06/17 citalopram 40 mg tablet 40 mg PO DAILY DEPRESSION 12/18/17 atenolol 50 mg tablet 50 mg PO DAILY BLOOD PRESSURE 01/05/18 atorvastatin 40 mg tablet 40 mg PO QHS CHOLESTEROL 01/05/18 albuterol sulfate 0.63 mg/3 mL solution for nebulization 0.63 mg inhalation Q4H PRN Congestion 07/14/18 pantoprazole 40 mg tablet,delayed release 40 mg PO BID GERD 01/16/19 oxybutynin chloride 5 mg tablet,extended release 24 hr 5 mg PO DAILY BLADDER 10/08/21 clopidogrel 75 mg tablet 75 mg PO QODAY BLOOD THINNER 07/12/22 melatonin 10 mg sublingual tablet 10 mg PO QHS INSOMNIA #0 tabs 02/12/23 acetaminophen 500 mg tablet 1,000 mg PO Q6H PRN Pain Score 1-10 02/16/23 furosemide 20 mg tablet (Lasix) 20 mg PO DAILY PRN DIURETIC #30 tabs 02/20/23 lorazepam 0.5 mg tablet 0.5 mg PO TID 30 days #90 tabs 02/20/23 bupropion HCl 150 mg tablet,12 hr sustained-release 150 mg PO DAILY 06/30/23 gabapentin 100 mg capsule 100 mg PO DAILY 06/30/23 meloxicam 15 mg tablet 15 mg PO DAILY 06/30/23 quetiapine 50 mg tablet 50 mg PO QHS 06/30/23 aspirin 81 mg tablet,delayed release 81 mg PO BREAKFAST #30 tabs 07/02/23 guaifenesin 1,200 mg tablet, extended release 12 hr (Mucus Relief ER) 1,200 mg PO BID #20 tabs 07/02/23 lisinopril 20 mg tablet 20 mg PO BID BLOOD PRESSURE #60 tabs 07/02/23 spironolactone 25 mg tablet 25 mg PO DAILY #30 tabs 07/02/23 Medical Records Data Medical Nutrition Assessment Dietitian: Malnutrition Criteria Met Start: 07/01/23 16:06 Freq: Status: Active Protocol: Document 07/01/23 16:06 RMA (Rec: 07/01/23 16:06 RMA [id number]) Nutrition Malnutrition Evidence of Malnutrition Exists Yes Malnutrition (severe): Chronic Evidenced By Suboptimal Energy Intake ( Severe),Weight Loss (Severe) Clinical Problem Chronic Disease or Condition Related Malnutrition Etiology severe protein-calorie malnutrition in the context of chronic disease/debility related to increased energy expenditure and inadequate energy intake Signs/Symptoms as evidenced by ~11% unintentional weight loss x less than 6 months and PO meeting less than 50% estimated nutrition needs x past 3-6 months Status Active Problem Recommendation Dietitian Recommendations/Changes Will change diet to cardiac given chronic medical conditions noted. Will add 120mL ensure plus HP 3 times per day w/ meals. Will add magic cup w/ lunch and dinner for tolerance. Consider NETWORK SECURITY ADMINISTRATOR swallowing evaluation as needed. Adjust ONS to prevent further carlita/pro depletion. Weight / BMI Weight Weight: 53.5 kg Body Mass Index (BMI) 23.0 ABG / Lab / Microbiology Data 07/01/23 03:25 07/01/23 03:25 Radiography Diagnostic Testing: Radiology Impression Echocardiogram 06/30/23 23:02 Interpretation Summary The estimated ejection fraction is 60 %. Stage 2 diastolic dysfunction. The left atrium is severely enlarged. Trivial mitral valve insufficiency. Mild tricuspid valve insufficiency. Trivial aortic valve insufficiency. Ordering Physician: Juan Jose Referring Physician: Zully Rojas; Ja Kumar Performed By: Janna Lala, SABINA, RVT Meaningful Use Info Meaningful Use Meaningful Use Diagnoses (Choose all that apply): AMI AMI/Post PCI/Angioplasty Aspirin given w/in 24hrs of arrival?: Yes ASA at discharge?: Yes Antiplatelet Therapy at Discharge:: Yes Statins at discharge?: Yes Fidel/ARB at discharge?: Yes Beta Annika at discharge?: Yes Done w/ Acute NC measure.: Yes Documented LVEF (%): 60 Ischemic Stroke Statin Dosing Therapy Reference: STATIN DOSE THERAPY REFERENCE: * Patients > 75 years receive moderate or high dose statin therapy. * Patients 75 years or YOUNGER should receive HIGH intensity statin dose unless contraindicated. You will be required to document reason for non-treatment if statin daily dose does not meet guidelines. HIGH DOSE STATIN THERAPY DAILY Atorvastatin > than or = to 40 mg Rosuvastatin > than or = to 20 mg Amlodipine + Atorvastatin > than or = to 2.5/40 mg Ezetimibe + Simvastatin 10/80 mg Simvastatin 80mg Discharge Plan Admission Admit Date/Time: 06/30/23 22:18 Attending Provider: Juan Recinos Primary Care Provider: Zully Rojas Consulting Providers: Juan Jose Discharge Orders/Prescriptions Prescriptions: New aspirin 81 mg Tablet,Delayed Release (Dr/Ec) 81 mg PO BREAKFAST Qty: 30 0RF guaifenesin [Mucus Relief ER] 1,200 mg Tablet Extended Release 12hr 1,200 mg PO BID Qty: 20 0RF spironolactone 25 mg Tablet 25 mg PO DAILY Qty: 30 0RF Continued albuterol sulfate 0.63 mg/3 mL solution for nebulization 0.63 mg INHALATION Q4H PRN (Reason: Congestion) levothyroxine 75 MCG tablet 75 mcg PO DAILY citalopram 40 mg tablet 40 mg PO DAILY atenolol 50 MG tablet 50 mg PO DAILY atorvastatin 40 MG tablet 40 mg PO QHS pantoprazole 40 MG tablet 40 mg PO BID oxybutynin chloride 5 mg tablet extended release 24hr 5 mg PO DAILY clopidogrel 75 mg tablet 75 mg PO QODAY melatonin 10 mg Tablet, Sublingual 10 mg PO QHS Qty: 0 0RF acetaminophen 500 mg Tablet 1,000 mg PO Q6H PRN (Reason: Pain Score 1-10) lorazepam 0.5 mg Tablet 0.5 mg PO TID 30 Days Qty: 90 0RF furosemide [Lasix] 20 mg tablet 20 mg PO DAILY PRN (Reason: DIURETIC) Qty: 30 0RF bupropion HCl 150 mg tablet sustained-release 12 hr 150 mg PO DAILY meloxicam 15 mg tablet 15 mg PO DAILY gabapentin 100 mg capsule 100 mg PO DAILY quetiapine 50 mg tablet 50 mg PO QHS Changed lisinopril 20 mg tablet 20 mg PO BID Qty: 60 0RF Referrals / Follow Up: Zully Rojas MD [Primary Care Provider] - Charges/Coding Visit Charges Inpatient E&M: 27501 Disch Hosp >30min
[2023-07-02] MEDS: Ipratropium/Albuterol Sulfate 3 ML AMPUL.NEB INHALATION (10:30)
--- NOTE | 2023-07-02 12:00 | PHA.DC.MC.R ---
Pharmacy [facility] has performed discharge medication reconciliation and counseling for this patient. 1. ASPIRIN 81MG PO DAILY 2. GUAIFENESIN 1200MG PO BID 3. SPIRONOLACTONE 25MG PO DAILY 4. LISINOPRIL INCREASED TO BID The patient's discharge medication list was reviewed for discrepancies and discrepancies were resolved. The patient was counseled on the following discharge medications and changes in medications for homegoing were reviewed. The Reason for Use, instructions for use, and potential side effects were reviewed for all new medications. The patient's questions regarding all of their medications were answered. The patient was able to verbally demonstrate an understanding of their discharge medications. Medications at Discharge Home Medications levothyroxine 75 mcg tablet 75 mcg PO DAILY THYROID 09/06/17 citalopram 40 mg tablet 40 mg PO DAILY DEPRESSION 12/18/17 atenolol 50 mg tablet 50 mg PO DAILY BLOOD PRESSURE 01/05/18 atorvastatin 40 mg tablet 40 mg PO QHS CHOLESTEROL 01/05/18 albuterol sulfate 0.63 mg/3 mL solution for nebulization 0.63 mg inhalation Q4H PRN Congestion 07/14/18 pantoprazole 40 mg tablet,delayed release 40 mg PO BID GERD 01/16/19 oxybutynin chloride 5 mg tablet,extended release 24 hr 5 mg PO DAILY BLADDER 10/08/21 clopidogrel 75 mg tablet 75 mg PO QODAY BLOOD THINNER 07/12/22 melatonin 10 mg sublingual tablet 10 mg PO QHS INSOMNIA #0 tabs 02/12/23 acetaminophen 500 mg tablet 1,000 mg PO Q6H PRN Pain Score 1-10 02/16/23 furosemide 20 mg tablet (Lasix) 20 mg PO DAILY PRN DIURETIC #30 tabs 02/20/23 lorazepam 0.5 mg tablet 0.5 mg PO TID 30 days #90 tabs 02/20/23 bupropion HCl 150 mg tablet,12 hr sustained-release 150 mg PO DAILY 06/30/23 gabapentin 100 mg capsule 100 mg PO DAILY 06/30/23 meloxicam 15 mg tablet 15 mg PO DAILY 06/30/23 quetiapine 50 mg tablet 50 mg PO QHS 06/30/23 aspirin 81 mg tablet,delayed release 81 mg PO BREAKFAST #30 tabs 07/02/23 guaifenesin 1,200 mg tablet, extended release 12 hr (Mucus Relief ER) 1,200 mg PO BID #20 tabs 07/02/23 lisinopril 20 mg tablet 20 mg PO BID BLOOD PRESSURE #60 tabs 07/02/23 spironolactone 25 mg tablet 25 mg PO DAILY #30 tabs 07/02/23
--- NOTE | 2023-07-02 12:06 | CASEMGMT ---
Patient has order for discharge. RN CM in to dicuss needs at discharge. Patient had referral made to [facility], information card provided to patient, patient voiced understanding. Patient denies further needs or help at home, daughters are supportive. Patient had no further questions or concerns at this time.
== END 2023-07-02 16:14 | disposition home or self-care (01) | DRG 280 ==
LOC: ED 22:06 → PCU 22:30
PROVIDERS: Admitting Provider Internal Medicine; Emergency Provider Emergency Medicine; PCP Internal Medicine; Visit Provider Internal Medicine
DX: I21.4 Non-ST elevation (NSTEMI) myocardial infarction (principal); E43 Unspecified severe protein-calorie malnutrition; J96.11 Chronic respiratory failure with hypoxia; I50.32 Chronic diastolic (congestive) heart failure; I11.0 Hypertensive heart disease with heart failure; Z95.1 Presence of aortocoronary bypass graft; J44.9 Chronic obstructive pulmonary disease, unspecified; G25.81 Restless legs syndrome; F32.A Depression, unspecified; E03.9 Hypothyroidism, unspecified; K21.9 Gastro-esophageal reflux disease without esophagitis; F17.210 Nicotine dependence, cigarettes, uncomplicated; M16.12 Unilateral primary osteoarthritis, left hip; I25.10 Atherosclerotic heart disease of native coronary artery without angina pectoris; I25.2 Old myocardial infarction; E78.5 Hyperlipidemia, unspecified; F41.9 Anxiety disorder, unspecified; G47.33 Obstructive sleep apnea (adult) (pediatric); N32.81 Overactive bladder; Z66 Do not resuscitate; Z79.899 Other long term (current) drug therapy; Z79.02 Long term (current) use of antithrombotics/antiplatelets; Z95.5 Presence of coronary angioplasty implant and graft; Z86.73 Personal history of transient ischemic attack (TIA), and cerebral infarction without residual deficits; Z68.23 Body mass index [BMI] 23.0-23.9, adult
CPT/HCPCS: 36415; 71045; 80048; 80053; 80061; 84443; 84484; 85025; 85027; 85610; 85730; 93005; 93306; 94640; 97802; 99285; 99406; A4216

== ENCOUNTER 2023-07-03 16:42 | Inpatient (IN) | payer MEDICARE, SELFPAY ==
[2017-12-28 13:50] VITALS: BMI 29.2
[2023-07-03] VITALS (10 sets, daily range): BP systolic 145–177; BP diastolic 63–113; PULSE 55–66; RESP 14–22; TEMP 36.2–36.8; O2SAT 88–98; BMI 24.3; BMI 21.9
--- NOTE | 2023-07-03 17:08 | EKG12_ITS ---
Test Reason : FALL Blood Pressure : / mmHG Vent. Rate : 062 BPM Atrial Rate : 059 BPM P-R Int : 000 ms QRS Dur : 110 ms QT Int : 508 ms P-R-T Axes : 000 127 064 degrees QTc Int : 515 ms ACCELERATED JUCTIONAL RHYTHM Right axis deviation Incomplete right bundle branch block Right ventricular hypertrophy Nonspecific ST abnormality Prolonged QT Abnormal ECG Confirmed by Ja Kumar ([id number]), editor sound STEPHEN HAYES ([id number]) on 07/06/2023 8:04:46 AM Referred By: Confirmed By:Ja Kumar
--- NOTE | 2023-07-03 17:35 | RAD_ITS ---
STUDY: X-RAY CHEST REASON FOR EXAM: Female, 78 years old. chest pain TECHNIQUE: AP portable COMPARISON: None. FINDINGS: Nonspecific elevation of the left hemidiaphragm however the lungs are clear.. There is no demonstrated pleural abnormality. Normal size heart. Normal mediastinum and [place]. Normal visualized pulmonary arteries. Mildly calcified aortic arch and descending thoracic aorta. Postop change status post median sternotomy and CABG. Dorsal spine demonstrates degenerative changes. There are degenerative changes of both shoulders and old posttraumatic deformity on the left There is no demonstrated abnormality of the visualized soft tissue structures of the upper abdomen. RAD/Chest 1 View (Portable) IMPRESSION: ASHD. No acute cardiopulmonary pathology Electronically Signed: Hany Desai MD at 17:49 EDT ,
[2023-07-03 17:37] LABS: Absolute Lymphocyte Count 1.32 X10^3/uL (0.83-4.51); Absolute Neutrophil Count 2.3 X10^3/uL (2.0-7.7); Basophil# 0.03 X10^3/uL; Basophil% 0.7 % (0-1); Eosinophil# 0.13 X10^3/uL; Eosinophils% 3.1 % (0-5); Hematocrit 37.5 % (37-47); Hemoglobin 11.3 g/dL (12.0-15.0); Lymphocyte # 1.32 X10^3/ul (0.83-4.51); Lymphocyte % 31.2 % (19-41); Mean Corp Hgb Conc 30.1 g/dL (32-36); Mean Corpuscular Hgb 26.1 pg (27.0-32.0); Mean Corpuscular Volume 86.6 fL (81-99); Mean Platelet Vol. 9.8 fl (6.2-12.0); Monocyte# 0.39 X10^3/uL; Monocyte% 9.2 % (0-10); NRBC Flagged by Analyzer 0 % (0-5); Neutrophil # 2.34 X10^3/uL (2.7-7.7); Neutrophil % 55.3 % (47-70); Platelet Count 262 K/mm3 (150-450); RBC Distribution Width CV 18.8 % (11.6-14.6); RBC Distribution Width SD 59.1 fl (35.1-43.9); Red Blood Count 4.33 M/mm3 (4.2-5.4); White Blood Count 4.2 K/mm3 (4.4-11.0)
--- NOTE | 2023-07-03 17:41 | EX.ED.DYSGE1 ---
HPI <ROSA Barrientos - Last Filed: 07/03/23 21:14> History of Present Illness Chief Complaint: Abd Pain Narrative Narrative: Patient is a 78-year-old female with history of depression, hypothyroidism, CAD, heart failure, tobacco use who presents to the emergency department for chest pain. Patient was recently discharged in the hospital yesterday. Patient was seen here on June 30, 2023, diagnosed with NSTEMI with grossly elevated troponins. Dr. Kumar from cardiology and the patient decided to treat the NSTEMI medically. No intervention was taken place. Patient was then discharged on the , and since then she states she continues to have chest pain. The squad calls also for lethargy. Patient states that she has pain to her chest as well as her upper abdomen. She denies any nausea or vomiting. PFSH <ROSA Barrientos - Last Filed: 07/03/23 21:14> [facility] Medical History Chronic hypoxic respiratory failure Adult failure to thrive Osteoarthritis of left hip Avascular necrosis of femur head, left Anemia Declining functional status Unable to bear weight on left lower extremity Non-rheumatic mitral regurgitation History of rectal cancer Hemorrhoids, external Carotid artery stenosis CAD (coronary artery disease) Non-ST elevation (NSTEMI) myocardial infarction TIA (transient ischemic attack) CVA (cerebral vascular accident) History of thyroid cancer Depression with anxiety DDD (degenerative disc disease), lumbar H/O: pneumonia Diastolic dysfunction Atherosclerosis of coronary artery bypass graft without angina pectoris Benzodiazepine dependence Back pain COPD (chronic obstructive pulmonary disease) Obstructive sleep apnea Anxiety and depression Hypothyroidism Non-rheumatic tricuspid valve insufficiency Secondary pulmonary arterial hypertension Nicotine dependence Hyperlipidemia Atherosclerosis of coronary artery of [place] heart with angina pectoris Essential (primary) hypertension Home Medications ?Medication ?Instructions ?Recorded ?Last Taken ?Type levothyroxine 75 mcg tablet 75 mcg PO DAILY THYROID 09/06/17 01/29/23 History citalopram 40 mg tablet 40 mg PO DAILY DEPRESSION 12/18/17 01/29/23 History atenolol 50 mg tablet 50 mg PO DAILY BLOOD PRESSURE 01/05/18 04/19/22 History atorvastatin 40 mg tablet 40 mg PO QHS CHOLESTEROL 01/05/18 01/28/23 History albuterol sulfate 0.63 mg/3 mL 0.63 mg inhalation Q4H PRN 07/14/18 1 Week Ago History solution for nebulization Congestion ~10/01/21 pantoprazole 40 mg tablet,delayed 40 mg PO BID GERD 01/16/19 04/19/22 History release oxybutynin chloride 5 mg 5 mg PO DAILY BLADDER 10/08/21 01/29/23 History tablet,extended release 24 hr clopidogrel 75 mg tablet 75 mg PO QODAY BLOOD THINNER 07/12/22 01/29/23 History melatonin 10 mg sublingual tablet 10 mg PO QHS INSOMNIA #0 tabs 02/12/23 Unknown Rx acetaminophen 500 mg tablet 1,000 mg PO Q6H PRN Pain Score 1-10 02/16/23 Unknown History furosemide 20 mg tablet (Lasix) 20 mg PO DAILY PRN DIURETIC #30 02/20/23 01/29/23 Rx tabs lorazepam 0.5 mg tablet 0.5 mg PO TID 30 days #90 tabs 02/20/23 Unknown Rx bupropion HCl 150 mg tablet,12 hr 150 mg PO DAILY 06/30/23 Unknown History sustained-release gabapentin 100 mg capsule 100 mg PO DAILY 06/30/23 Unknown History meloxicam 15 mg tablet 15 mg PO DAILY 06/30/23 Unknown History quetiapine 50 mg tablet 50 mg PO QHS 06/30/23 Unknown History aspirin 81 mg tablet,delayed 81 mg PO BREAKFAST #30 tabs 07/02/23 Unknown Rx release guaifenesin 1,200 mg tablet, 1,200 mg PO BID #20 tabs 07/02/23 Unknown Rx extended release 12 hr (Mucus Relief ER) isosorbide mononitrate 30 mg 30 mg PO DAILY #90 tabs 07/02/23 Unknown Rx tablet,extended release 24 hr lisinopril 20 mg tablet 20 mg PO BID BLOOD PRESSURE #60 07/02/23 04/19/22 Rx tabs spironolactone 25 mg tablet 25 mg PO DAILY #30 tabs 07/02/23 Unknown Rx Allergy/AdvReac Type Severity Reaction Status Date / Time morphine Allergy PT UNSURE Verified 06/30/23 17:43 Penicillins Allergy Hives Verified 06/30/23 17:43 tramadol HCl (From Ultram) Allergy PT UNSURE Verified 06/30/23 17:43 bupropion (From Wellbutrin) AdvReac hallucinati Verified 06/30/23 17:43 ons Family History Father Heart disease of heart attack at age 64 Mother Cancer of cancer at age 72 CVA (cerebral vascular accident) Surgical History Hx of thyroidectomy Presence of stent in coronary artery (~10/10/21) History of left heart catheterization (10/10/21) History of appendectomy Hx of cholecystectomy History of coronary artery stent placement (10/10/21) History of coronary artery bypass graft x 3 (~2007) Social History household members: children and other details: Daughter. housing: house Smoking Status: Heavy Smoker (>10/day) details: Patient denies alcohol use substance use type: does not use ROS <ROSA Barrientos - Last Filed: 07/03/23 21:14> ROS ED ROS Narrative Constitutional: Negative for fever, chills, weight loss. Positive weakness Eyes: Negative for vision loss, vision change, double vision ENT: Negative for any sore throat, ear pain, congestion Cardiovascular: Negative for any tightness, palpitations. Positive chest pain Respiratory: Negative for any sputum production, hemoptysis, dyspnea, dyspnea on exertion, orthopnea. Positive for cough Gastrointestinal: Negative for any nausea, vomiting, diarrhea, constipation, blood in stool, blood in vomit. Positive for upper abdominal pain : Negative for any urinary frequency, dysuria, retention, blood in urine Muscle skeletal: Negative for any neck pain, back pain Neurological: Negative for any headache, syncope, dizziness Skin: Negative for any rashes, itching, abrasions, lacerations Psychiatric: Negative for any depression, anxiety, stress, suicidal ideation, homicidal ideation Hematologic: Negative for any excessive bruising, easy bleeding EXAM <ROSA Barrientos - Last Filed: 07/03/23 21:14> Physical Exam Narrative Exam Narrative: Vital signs reviewed. Patient is somnolent, she is a poor informant. Patient continues to fall asleep while asking her questions. HEET: Head normocephalic atraumatic, TMs clear bilaterally. Posterior pharynx is clear, dry mucous membranes. Nares clear bilaterally. Neck: Supple with no lymphadenopathy or tenderness. No signs of meningismus. Cardiac: Regular rate and rhythm no murmurs gallops or rubs, equal peripheral pulses bilaterally. Respiratory: rhonchorous breath sounds, decreased sounds in bilateral bases. No chest tenderness. Abdomen: Soft, nontender, nondistended. No abdominal bruit or pulsatile masses. No hepatosplenomegaly Extremities: No peripheral edema, no signs of gross trauma or deformity. Active full range of motion of all extremities. Neuro: Cranial nerves II through XII intact, no focal neurological deficits. Skin: Clean dry and intact with no rash, purpura, petechiae, vesicles or pustules. Backs/flank: No CVA tenderness, no midline spinal tenderness, no deformity. Psych: Normal mood and affect. No SI, HI or acute psychosis. Const Vital Signs: 07/03/23 16:44 07/03/23 16:54 07/03/23 17:34 Temperature 98.1 F Temperature Source Oral Pulse Rate 61 Respiratory Rate 20 H Respiratory Effort Short of Breath Respiratory Depth Shallow Respiratory Pattern Tachypnea Blood Pressure 172/98 H Blood Pressure Mean 122 Pulse Ox 94 Oxygen Delivery Method Room Air Room Air Room Air 07/03/23 18:45 07/03/23 20:00 07/03/23 20:55 Temperature Temperature Source Pulse Rate 58 L 66 65 Respiratory Rate 22 H 18 22 H Respiratory Effort Respiratory Depth Respiratory Pattern Blood Pressure 149/72 H 177/65 H 164/113 H Blood Pressure Mean 97 102 130 Pulse Ox 93 92 95 Oxygen Delivery Method Room Air Room Air Room Air 07/03/23 21:07 Temperature Temperature Source Pulse Rate 62 Respiratory Rate 16 Respiratory Effort Respiratory Depth Respiratory Pattern Blood Pressure 148/63 H Blood Pressure Mean 91 Pulse Ox 93 Oxygen Delivery Method Room Air <Dr. Sourav Thurston MD - Last Filed: 07/03/23 22:13> Physical Exam Const Vital Signs: 07/03/23 16:44 07/03/23 16:54 07/03/23 17:34 Temperature 98.1 F Temperature Source Oral Pulse Rate 61 Respiratory Rate 20 H Respiratory Effort Short of Breath Respiratory Depth Shallow Respiratory Pattern Tachypnea Blood Pressure 172/98 H Blood Pressure Mean 122 Pulse Ox 94 Oxygen Delivery Method Room Air Room Air Room Air 07/03/23 18:45 07/03/23 20:00 07/03/23 20:55 Temperature Temperature Source Pulse Rate 58 L 66 65 Respiratory Rate 22 H 18 22 H Respiratory Effort Respiratory Depth Respiratory Pattern Blood Pressure 149/72 H 177/65 H 164/113 H Blood Pressure Mean 97 102 130 Pulse Ox 93 92 95 Oxygen Delivery Method Room Air Room Air Room Air 07/03/23 21:07 Temperature Temperature Source Pulse Rate 62 Respiratory Rate 16 Respiratory Effort Respiratory Depth Respiratory Pattern Blood Pressure 148/63 H Blood Pressure Mean 91 Pulse Ox 93 Oxygen Delivery Method Room Air MDM <ROSA Barrientos - Last Filed: 07/03/23 21:14> [facility] Lab Data Labs: Laboratory Results - last 24 hr 07/03/23 07/03/23 07/03/23 17:25 19:59 20:30 WBC 4.2 L RBC 4.33 Hgb 11.3 L Hct 37.5 MCV 86.6 MCH 26.1 L MCHC 30.1 L RDW Std Deviation 59.1 H RDW Coeff of John 18.8 H Plt Count 262 MPV 9.8 Immature Gran % (Auto) 0.500 Neut % (Auto) 55.3 Lymph % (Auto) 31.2 [place] % (Auto) 9.2 Eos % (Auto) 3.1 Baso % (Auto) 0.7 Absolute Neuts (auto) 2.3 Absolute Lymphs (auto) 1.32 Nucleated RBC % 0 Sodium 139 Potassium 3.3 L Chloride 107 Carbon Dioxide 26.0 Anion Gap 6 BUN 12 Creatinine 0.70 Estim Creat Clear Calc 47.17 Est GFR (MDRD) Af Amer 105 Est GFR (MDRD) Non-Af 87 BUN/Creatinine Ratio 17.2 Glucose 169 H Calcium 8.4 L Total Bilirubin 0.50 AST 28 ALT 16 Alkaline Phosphatase 120 H Troponin I High Sens 4295 H* 4460 H* B-Natriuretic Peptide 665.7 H Total Protein 6.7 Albumin 2.9 L Globulin 3.8 Albumin/Globulin Ratio 0.8 L Lipase 17 Urine Color Yellow Urine Clarity Clear Urine pH 6.0 Ur Specific Leigh 1.020 Urine Protein 15 H Urine Glucose (UA) Normal Urine Ketones Negative Urine Occult Blood 25 H Urine Nitrite Negative Urine Bilirubin Negative Urine Urobilinogen 1 H Ur Leukocyte Esterase 25 H Urine RBC 0-5 SEEN Urine WBC 0-5 SEEN Ur Squamous Epith Cells 0 SEEN Urine Bacteria 0 SEEN Urine Mucus 0 SEEN Urine Opiates Screen NEGATIVE Urine Methadone Screen NEGATIVE Ur Barbiturates Screen NEGATIVE Ur Phencyclidine Scrn NEGATIVE Ur Amphetamines Screen NEGATIVE MDMA (Ecstasy) Screen POSITIVE H U Benzodiazepines Scrn NEGATIVE Urine Cocaine Screen NEGATIVE U Cannabinoids Screen NEGATIVE Ur Drug Screen Comment Radiography Diagnostic Testing: Clinical Impression(s) from Imaging Studies Chest X-Ray 07/03/23 17:35 IMPRESSION: ASHD. No acute cardiopulmonary pathology Electronically Signed: Hany Desai MD at 17:49 EDT , Brain CT 07/03/23 19:45 IMPRESSION: Moderate atrophy and advanced periventricular white matter ischemic changes.. Old lacunar infarct in the right basal ganglia and old infarct in distribution of right posterior cerebral artery.. No mass or acute bleed. If concern for acute infarct MRI recommended Electronically Signed: Hany Desai MD at 22:00 EDT , EKG Sinus rhythm: Attestation: I personally reviewed and interpreted this EKG as follows: Interpretation: Sinus Rhythm Comments: Sinus rhythm, rate of 62 bpm, QRS duration 110 ms, no acute ST elevation, no acute infarct noted. Treatment and Re-Evaluation :: Differential diagnosis includes however is not limited to: ACS, LA, unstable angina, community-acquired pneumonia, CHF, fluid overload Patient appears to be in no obvious respiratory distress, patient does fall asleep in the middle of my examination and had to be woken up multiple times. Patient would not sit up, stating that she hurts too bad. But then fall back asleep. Patient did have some rhonchorous breath sounds. Patient does have a slight cough. Patient presents to the emergency department with ongoing chest pain, abdominal pain. Patient will receive a full cardiac workup, as well as EKG that does not show a STEMI at this time. Patient will have repeat laboratory values drawn. Chest x-ray. All radiologic examinations were read, reviewed by the emergency department attending. From these reads, a plan of care will be put in place. Patient's CBC shows white blood count 4.2, hemoglobin 7.3 which is stable. Patient's chemistries show blood glucose of 169. Troponin is elevated at 4295, however patient 2 days ago was 12,194, this is an improvement. I do not believe the patient is having acute ischemia. Lipase was negative. Patient remains somnolent. We spoke with the patient's daughter who is at the power of prosecuting attorney, the patient did refuse the CAT scan however the power of prosecuting attorney wishes to have one of her brain. The patient will be given IV Versed, IV Haldol. Patient will then receive the CT scan of the brain. I did reach out to the hospitalist he will admit the patient. Patient's second troponin was 4460. Patient will receive a CT scan of the brain to rule out any intracranial hemorrhage. Patient be admitted to the hospital. Patient's urinalysis was negative for infection. Patient's toxicology shows positive for MDMA. <Dr. Sourav Thruston MD - Last Filed: 07/03/23 22:13> [facility] Narrative Medical decision making narrative: I have personally performed a face to face assessment of the patient and have reviewed the LIT Note. I performed a substantive portion of the visit including all aspects of the following. My davila findings include: History is remarkable for recent admission for non-ST elevation LA. Patient chose medical management. She did not want a cardiac catheterization. She has been home for less than 24 hours. She returns because she is unable to care for herself. Upon arrival she is very somnolent. History is very limited. She does report this unusual type pain which may be pleuritic. It may be positional. It does not radiate to the left trapezius or left shoulder region which is pathognomonic for pericarditis. Review of records indicates she does have a psychiatric disorder. There is a daughter who is the POA since the patient was initially declining test. Exam is remarkable for multiple elevated blood pressure readings. Patient is somnolent. HEENT exam is remarkable for poor dentition and dry mucosa. Heart is regular. Rate is normal. No murmur, gallop or rub. Is no friction rub. Lungs are clear to auscultation with symmetric breath sounds. Abdomen soft nontender. She has a nonfocal exam. She is not oriented. She is not cooperative either. Spoke with daughter who is the POA. She states that she would like the CAT scan done since she is a POA. For this reason patient received IV Haldol and Versed to obtain the CAT scan. Medical Decision Making chest pain may be due to Mesfin syndrome, postmyocardial pericarditis. Because of the altered mental status talk screen was obtained as well as CAT scan. Talk screen is positive for MDMA which 1 would expect her to be all hyperactive and not somnolent. Will assess for infectious or metabolic cause as well. Other additions or changes: [None] Lab Data Labs: Laboratory Results - last 24 hr 07/03/23 07/03/23 07/03/23 17:25 19:59 20:30 WBC 4.2 L RBC 4.33 Hgb 11.3 L Hct 37.5 MCV 86.6 MCH 26.1 L MCHC 30.1 L RDW Std Deviation 59.1 H RDW Coeff of John 18.8 H Plt Count 262 MPV 9.8 Immature Gran % (Auto) 0.500 Neut % (Auto) 55.3 Lymph % (Auto) 31.2 [place] % (Auto) 9.2 Eos % (Auto) 3.1 Baso % (Auto) 0.7 Absolute Neuts (auto) 2.3 Absolute Lymphs (auto) 1.32 Nucleated RBC % 0 Sodium 139 Potassium 3.3 L Chloride 107 Carbon Dioxide 26.0 Anion Gap 6 BUN 12 Creatinine 0.70 Estim Creat Clear Calc 47.17 Est GFR (MDRD) Af Amer 105 Est GFR (MDRD) Non-Af 87 BUN/Creatinine Ratio 17.2 Glucose 169 H Calcium 8.4 L Total Bilirubin 0.50 AST 28 ALT 16 Alkaline Phosphatase 120 H Troponin I High Sens 4295 H* 4460 H* B-Natriuretic Peptide 665.7 H Total Protein 6.7 Albumin 2.9 L Globulin 3.8 Albumin/Globulin Ratio 0.8 L Lipase 17 Urine Color Yellow Urine Clarity Clear Urine pH 6.0 Ur Specific Leigh 1.020 Urine Protein 15 H Urine Glucose (UA) Normal Urine Ketones Negative Urine Occult Blood 25 H Urine Nitrite Negative Urine Bilirubin Negative Urine Urobilinogen 1 H Ur Leukocyte Esterase 25 H Urine RBC 0-5 SEEN Urine WBC 0-5 SEEN Ur Squamous Epith Cells 0 SEEN Urine Bacteria 0 SEEN Urine Mucus 0 SEEN Urine Opiates Screen NEGATIVE Urine Methadone Screen NEGATIVE Ur Barbiturates Screen NEGATIVE Ur Phencyclidine Scrn NEGATIVE Ur Amphetamines Screen NEGATIVE MDMA (Ecstasy) Screen POSITIVE H U Benzodiazepines Scrn NEGATIVE Urine Cocaine Screen NEGATIVE U Cannabinoids Screen NEGATIVE Ur Drug Screen Comment Radiography Diagnostic Testing: Clinical Impression(s) from Imaging Studies Chest X-Ray 07/03/23 17:35 IMPRESSION: ASHD. No acute cardiopulmonary pathology Electronically Signed: Hany Desai MD at 17:49 EDT , Brain CT 07/03/23 19:45 IMPRESSION: Moderate atrophy and advanced periventricular white matter ischemic changes.. Old lacunar infarct in the right basal ganglia and old infarct in distribution of right posterior cerebral artery.. No mass or acute bleed. If concern for acute infarct MRI recommended Electronically Signed: Hany Desai MD at 22:00 EDT , Discharge Plan Dx/Rx/DC Orders Clinical Impression: Elevated troponin, Adult failure to thrive, Chest pain, Acute alteration in mental status, CAD (coronary artery disease), Tobacco abuse, Obstructive sleep apnea Disposition Disposition: Acute Care [facility]
[2023-07-03 17:48] LABS: BNP,B-Type NATRIURETIC PEPTIDE 665.7 pg/mL (0-100)
[2023-07-03 18:13] LABS: ALB/GLOB Ratio 0.8 RATIO (0.9-2.4); AST(SGOT) 28 U/L (15-37); Alanine Aminotransfer ALT/SGPT 16 U/L (13-56); Albumin, Serum 2.9 g/dL (3.2-5.0); Alkaline Phosphatase 120 U/L (45-117); Anion Gap 6 (5-15); BUN 12 mg/dL (7-18); BUN/Creat Ratio 17.2 RATIO (10-20); Calcium,Total 8.4 mg/dL (8.5-10.1); Chloride 107 mmol/L (98-107); EST Glomerular Filtration Rate 87 mL/min (>60); Est Glom Filt Rate - Afr Amer 105 mL/min (>60); Estimated Creatinine Clearance 47.17 ml/min; Globulin 3.8 g/dL (2.2-4.2); Glucose 169 mg/dL (74-106); Lipase 17 U/L (13-75); Potassium 3.3 mmol/L (3.5-5.1); Protein, Total 6.7 g/dL (6.4-8.2); Sodium Level 139 mmol/L (136-145); Troponin-I HS (w/2H Reflex) 4295 pg/mL (3.0-54.0)
[2023-07-03 19:31] LABS: Reflex Troponin-HS? (from REC) Y
--- NOTE | 2023-07-03 19:45 | CT_ITS ---
STUDY: CT BRAIN WITHOUT CONTRAST REASON FOR EXAM: Female, 78 years old. confusion RADIATION DOSAGE (If Supplied By Facility): CTDIvol = ( 44.99 ) mGy, DLP = ( 812.98 ) mGycm TECHNIQUE: Transaxial CT imaging of the brain was performed without administration of intravenous contrast material. Individualized dose optimization techniques were used for this CT. COMPARISON: May 04, 2023 report only FINDINGS: Normal soft tissue structures. Normal calvarium. Calcific plaquing of the cavernous carotids and left vertebral artery. Moderate atrophy and advanced periventricular white matter ischemic changes.. Old infarct of the right medial temporal and frontal lobes in distribution of the right posterior cerebral artery. Old lacunar infarct in the right basal ganglia and thalamus . Normal brainstem. Normal cerebellum. There is no intracranial hemorrhage. There are no findings of an acute ischemic infarction. There is moderate mucosal thickening of the right maxillary ethmoid and sphenoid sinuses as well as mild mucosal thickening of the left maxillary ethmoid and sphenoid sinuses. Postsurgical changes of the orbits CT/Brain/Head without Contrast IMPRESSION: Moderate atrophy and advanced periventricular white matter ischemic changes.. Old lacunar infarct in the right basal ganglia and old infarct in distribution of right posterior cerebral artery.. No mass or acute bleed. If concern for acute infarct MRI recommended Electronically Signed: Hany Desai MD at 22:00 EDT ,
[2023-07-03 20:05] LABS: Bacteria 0 SEEN /hpf (None Seen); Mucous, Urine 0 SEEN /hpf (<or=2+); Squamous Epithelial Cells - UA 0 SEEN /hpf (5-10)
[2023-07-03 20:14] LABS: Color, Urine Yellow (Yellow); Glucose, Dipstick Normal (Normal); Ketone-Dipstick Negative (Negative); Leukocyte Esterase-Dipstick 25 /ul (Negative); Nitrite-Dipstick Negative (Negative); Occult Blood-Urine 25 /ul (Negative); Protein-Dipstick 15 mg/dl (Negative); Urine Bilirubin Dipstick Negative (Negative); Urine Clarity Clear (Clear); Urine Urobilinogen 1 mg/dl (Normal)
--- NOTE | 2023-07-03 20:35 | ED.RN ---
this RN spoke with pts daughterSanta (POA). updated on plan for admission and test results presently. phone given to patient. patient spoke with daughter and is now agreeable to plan for admission. IV access obtained.
[2023-07-03 20:40] LABS: Red Blood Cells-Urine 0-5 SEEN /hpf (0-5); White Blood Cells 0-5 SEEN /hpf (0-5)
[2023-07-03 20:44] LABS: Amphetamine Urine NEGATIVE (<1000 ng/mL); Barbiturate Urine NEGATIVE (< 200 ng/mL); Benzodiazepine Urine NEGATIVE (< 200 ng/mL); Cocaine Urine NEGATIVE (< 300 ng/mL); Ecstacy Urine POSITIVE (< 500 ng/mL); Methadone Urine NEGATIVE (< 300 ng/mL); Opiates Urine NEGATIVE (< 300 ng/mL); PCP Urine NEGATIVE (< 25 ng/mL); THC Urine NEGATIVE (< 50 ng/mL); Vista UDS pH Range 6
--- NOTE | 2023-07-03 20:55 | HP.PCM.HOS_ITS ---
[facility] - General General Date of Admission: 07/03/23 Date of Service: 07/03/23 Chief Complaint: Worsening Chest Pain, Increasing Generalized Weakness and Confusion. [facility] Narrative MAURICE WALLACE, is a 78 F with a past medical history of essential hypertension, hyperlipidemia, hypothyroidism; with history of thyroidectomy to treat thyroid cancer, chronic and ongoing tobacco abuse ~1.5 ppd; with subsequent COPD, chronic hypoxic respiratory failure, CAD; s/p non-ST elevation WI and CABG x 3 (2007) with subsequent stent (2021) on chronic Plavix, history of chronic diastolic CHF; with preserved LVEF ~60% (2022), history of secondary arterial hypertension, history of nonrheumatic tricuspid valve insufficiency, history of nonrheumatic mitral regurgitation, history of carotid artery stenosis, history of TIA/CVA, history of pneumonia, history of rectal cancer, history of avascular necrosis of the left femoral head, osteoarthritis of the Left hip, DDD; with chronic back pain, history of benzodiazepine dependence, overactive bladder, depression and anxiety, chronic anemia, GERD, history of adult [id number], history of listed allergies to both penicillin and morphine and recent admission here from June 30, 2023 to July 02, 2023 for non-ST elevation WI; evidenced by initial elevated troponin of 6617 pg/mL followed by a second troponin of 11,535 pg/mL managed medically without LHC after echocardiogram revealing normal LVEF with no significant wall motion abnormalities who now re- presents to [facility] ER once again complaining of worsening chest pain, increasing generalized weakness and confusion. Ms. Wallace reports that she has had chest pain since she was discharged up until now. She describes the chest pain as substernal, pressure-like, radiating into her upper abdomen and is made better or worse by nothing. She also admits her chest pain is similar to the angina that heralded her previous WI. To complicate matters further patient has become increasingly weak and lethargic and is having difficulty caring for self at home. She has 2 daughters that live locally that are actively involved in her care and are frustrated by her lack of progress in spite of recent admission. There is no report of fever, chills, nausea, vomiting, diaphoresis or palpitations the patient was treated with a combination of Haldol and Versed in the ER for agitation which caused transient lethargy with diminished ability to answer detailed questions. In the ER she was noted to have an initial troponin of 4,295 pg/mL consistent with ongoing non-ST elevation WI with persistent chest pain complicated by UDS positive for MDMA and clinical evidence of metabolic encephalopathy compounded by generalized weakness and ambulatory dysfunction as patient is now having difficulty caring for self at home. She was then admitted to the PCU for ongoing care for status expected to be greater than 2 midnights. [facility] Medical History Chronic hypoxic respiratory failure Adult failure to thrive Osteoarthritis of left hip Avascular necrosis of femur head, left Anemia Declining functional status Unable to bear weight on left lower extremity Non-rheumatic mitral regurgitation History of rectal cancer Hemorrhoids, external Carotid artery stenosis CAD (coronary artery disease) Non-ST elevation (NSTEMI) myocardial infarction TIA (transient ischemic attack) CVA (cerebral vascular accident) History of thyroid cancer Depression with anxiety DDD (degenerative disc disease), lumbar H/O: pneumonia Diastolic dysfunction Atherosclerosis of coronary artery bypass graft without angina pectoris Benzodiazepine dependence Back pain COPD (chronic obstructive pulmonary disease) Obstructive sleep apnea Anxiety and depression Hypothyroidism Non-rheumatic tricuspid valve insufficiency Secondary pulmonary arterial hypertension Nicotine dependence Hyperlipidemia Atherosclerosis of coronary artery of [place] heart with angina pectoris Essential (primary) hypertension Home Medications ?Medication ?Instructions ?Recorded ?Last Taken ?Type levothyroxine 75 mcg tablet 75 mcg PO DAILY THYROID 09/06/17 01/29/23 History citalopram 40 mg tablet 40 mg PO DAILY DEPRESSION 12/18/17 01/29/23 History atenolol 50 mg tablet 50 mg PO DAILY BLOOD PRESSURE 01/05/18 04/19/22 History atorvastatin 40 mg tablet 40 mg PO QHS CHOLESTEROL 01/05/18 01/28/23 History albuterol sulfate 0.63 mg/3 mL 0.63 mg inhalation Q4H PRN 07/14/18 1 Week Ago History solution for nebulization Congestion ~10/01/21 pantoprazole 40 mg tablet,delayed 40 mg PO BID GERD 01/16/19 04/19/22 History release oxybutynin chloride 5 mg 5 mg PO DAILY BLADDER 10/08/21 01/29/23 History tablet,extended release 24 hr clopidogrel 75 mg tablet 75 mg PO QODAY BLOOD THINNER 07/12/22 01/29/23 History melatonin 10 mg sublingual tablet 10 mg PO QHS INSOMNIA #0 tabs 02/12/23 Unknown Rx acetaminophen 500 mg tablet 1,000 mg PO Q6H PRN Pain Score 1-10 02/16/23 Unknown History furosemide 20 mg tablet (Lasix) 20 mg PO DAILY PRN DIURETIC #30 02/20/23 01/29/23 Rx tabs lorazepam 0.5 mg tablet 0.5 mg PO TID 30 days #90 tabs 02/20/23 Unknown Rx bupropion HCl 150 mg tablet,12 hr 150 mg PO DAILY mental health 06/30/23 Unknown History sustained-release gabapentin 100 mg capsule 100 mg PO DAILY nerve pain 06/30/23 Unknown History meloxicam 15 mg tablet 15 mg PO DAILY pain 06/30/23 Unknown History quetiapine 50 mg tablet 50 mg PO QHS mental health 06/30/23 Unknown History aspirin 81 mg tablet,delayed 81 mg PO BREAKFAST #30 tabs 07/02/23 Unknown Rx release guaifenesin 1,200 mg tablet, 1,200 mg PO BID #20 tabs 07/02/23 Unknown Rx extended release 12 hr (Mucus Relief ER) isosorbide mononitrate 30 mg 30 mg PO DAILY #90 tabs 07/02/23 Unknown Rx tablet,extended release 24 hr lisinopril 20 mg tablet 20 mg PO BID BLOOD PRESSURE #60 07/02/23 04/19/22 Rx tabs spironolactone 25 mg tablet 25 mg PO DAILY #30 tabs 07/02/23 Unknown Rx Allergy/AdvReac Type Severity Reaction Status Date / Time morphine Allergy PT UNSURE Verified 06/30/23 17:43 Penicillins Allergy Hives Verified 06/30/23 17:43 tramadol HCl (From Ultram) Allergy PT UNSURE Verified 06/30/23 17:43 bupropion (From Wellbutrin) AdvReac hallucinati Verified 06/30/23 17:43 ons Family History Father Heart disease of heart attack at age 64 Mother Cancer of cancer at age 72 CVA (cerebral vascular accident) Surgical History Hx of thyroidectomy Presence of stent in coronary artery (~10/10/21) History of left heart catheterization (10/10/21) History of appendectomy Hx of cholecystectomy History of coronary artery stent placement (10/10/21) History of coronary artery bypass graft x 3 (~2007) Social History household members: children and other details: Daughter. housing: house Smoking Status: Heavy Smoker (>10/day) details: Patient denies alcohol use substance use type: does not use ROS ROS Narrative Review of systems: General: Patient denies fever or chills. HENT: Denies headache, denies stuffy nose, denies sore throat EYES: Denies changes in vision or discharge from eyes. Resp: Denies cough, denies shortness of breath Cardiac: Patient admits to chest pain radiating into her upper abdomen as per HPI. GI: Patient admits to upper abdominal pain but she denies changes in bowel, denies nausea or vomiting. : Denies changes in urination Extremity: Denies swelling Musculoskeletal: Feels somewhat generally weak and unwell but denies arthralgias or myalgias. Neuro: Patient denies headache, paresthesias or focal neurologic weakness. Heme: Denies any bleeding or bruising Skin: Denies rashes Psychiatric: No complaints voiced related uncontrolled depression or anxiety Endocrine: No polyuria, polydipsia or polyphagia. The rest of the 14 point ROS was negative except for positives in HPI. Vital Signs Vital Signs Vital Signs: 07/03/23 16:44 07/03/23 16:54 07/03/23 17:34 Temperature 98.1 F Temperature Source Oral Pulse Rate 61 Respiratory Rate 20 H Respiratory Effort Short of Breath Respiratory Depth Shallow Respiratory Pattern Tachypnea Blood Pressure 172/98 H Blood Pressure Mean 122 Pulse Ox 94 Oxygen Delivery Method Room Air Room Air Room Air 07/03/23 18:45 07/03/23 20:00 Temperature Temperature Source Pulse Rate 58 L 66 Respiratory Rate 22 H 18 Respiratory Effort Respiratory Depth Respiratory Pattern Blood Pressure 149/72 H 177/65 H Blood Pressure Mean 97 102 Pulse Ox 93 92 Oxygen Delivery Method Room Air Room Air Weight Weight: 124 lb 12.8 oz Body Mass Index (BMI) 24.3 Physical Exam Const alert, no apparent distress and average body habitus Constitutional Narrative: Patient is somnolent, lethargic and appears chronically ill. General Appearance: cooperative Orientation / Consciousness: confused and lethargic HEENT normocephalic, head/scalp atraumatic and hearing grossly normal bilaterally HEENT Narrative: Mucous membranes dry. Eyes PERRL and EOMs intact bilaterally Neck no lymphadenopathy and supple Resp Resp Narrative: Diminished air entry throughout with bibasilar rhonchorous breath sounds. Auscultation: rhonchi Cardio regular rate and regular rhythm GI normal to inspection, nondistended, normoactive bowel sounds, soft to palpation, non-tender and non-distended Extremity normal to inspection, full ROM and no clubbing, cyanosis or edema Skin Skin Narrative: Patient has no evidence of jaundice, abscess or rash. Neuro CN's II-XII intact bilaterally, moves all extremities and no focal motor deficits Sensorium / Orientation: awake, alert, oriented to person and oriented to place Speech: speech normal Psych affect normal Results Medical Records Data Attestation: I reviewed the patient's medical records Lab / Micro Data Attestation: I reviewed the patient's lab results. 07/03/23 17:25 07/03/23 17:25 Labs: Laboratory Results - last 24 hr 07/03/23 17:25: WBC 4.2 L, RBC 4.33, Hgb 11.3 L, Hct 37.5, MCV 86.6, MCH 26.1 L, MCHC 30.1 L, RDW Std Deviation 59.1 H, RDW Coeff of John 18.8 H, Plt Count 262, MPV 9.8, Immature Gran % (Auto) 0.500, Neut % (Auto) 55.3, Lymph % (Auto) 31.2, [place] % (Auto) 9.2, Eos % (Auto) 3.1, Baso % (Auto) 0.7, Absolute Neuts (auto) 2.3, Absolute Lymphs (auto) 1.32, Nucleated RBC % 0, Sodium 139, Potassium 3.3 L , Chloride 107, Carbon Dioxide 26.0, Anion Gap 6, BUN 12, Creatinine 0.70, Estim Creat Clear Calc 47.17, Est GFR (MDRD) Af Amer 105, Est GFR (MDRD) Non-Af 87, BUN/Creatinine Ratio 17.2, Glucose 169 H, Calcium 8.4 L, Total Bilirubin 0.50, AST 28, ALT 16, Alkaline Phosphatase 120 H, Troponin I High Sens 4295 H*, B- Natriuretic Peptide 665.7 H, Total Protein 6.7, Albumin 2.9 L, Globulin 3.8, A lbumin/Globulin Ratio 0.8 L, Lipase 17 07/03/23 19:59: Urine Color Yellow, Urine Clarity Clear, Urine pH 6.0, Ur Specific [place] 1.020, Urine Protein 15 H, Urine Glucose (UA) Normal, Urine Ketones Negative, Urine Occult Blood 25 H, Urine Nitrite Negative, Urine Bilirubin Negative, Urine Urobilinogen 1 H, Ur Leukocyte Esterase 25 H, Urine RBC 0-5 SEEN, Urine WBC 0-5 SEEN, Ur Squamous Epith Cells 0 SEEN, Urine Bacteria 0 SEEN, Urine Mucus 0 SEEN, Urine Opiates Screen NEGATIVE, Urine Methadone Screen NEGATIVE, Ur Barbiturates Screen NEGATIVE, Ur Phencyclidine Scrn NEGATIVE, Ur Amphetamines Screen NEGATIVE, MDMA (Ecstasy) Screen POSITIVE H, U Benzodiazepines Scrn NEGATIVE, Urine Cocaine Screen NEGATIVE, U Cannabinoids Screen NEGATIVE, Ur Drug Screen Comment Imaging Radiology Impression Chest X-Ray 07/03/23 17:35 IMPRESSION: ASHD. No acute cardiopulmonary pathology Electronically Signed: Hany Desai MD at 17:49 EDT Reading Location ID and State: [facility] / [place] Tel , Service support , Assessment & Plan Assessment/Plan (1) Non-STEMI (non-ST elevated myocardial infarction): (2) (HFpEF) heart failure with preserved ejection fraction: QUALIFIERS: Heart failure chronicity: chronic Qualified Code(s): I50.32 - Chronic diastolic (congestive) heart failure (3) History of coronary artery bypass graft x 3: (4) Hypokalemia: (5) Tobacco abuse: (6) Acute alteration in mental status: (7) Adult failure to thrive: (8) Anxiety and depression: (9) Generalized weakness: (10) Ambulatory dysfunction: PLAN: Plan 1. Non-ST elevation WI; evidenced by initial troponin of 4,295 pg/mL with worsening chest pain since discharge in the setting of known CAD; s/p non-ST elevation WI and CABG x 3 (2007) with subsequent stent (2021) on chronic Plavix - Admit to PCU. Continue aspirin, Plavix, statin and add IV Heparin. Give low- dose hydromorphone IV as needed for severe (level 6-10 out of 10) pain. Start nitroglycerin drip if morphine is not effective in controlling patient's angina. Finally we will re-consult [facility] to see this patient on rounds in the a.m. for further recommendations regarding LHC this admission appreciated in advance. 2. AE of chronic diastolic CHF; with preserved LVEF evidenced by elevated BNP of 665.7 pg/mL present on admission complicating #1 - Give Lasix 40 mg IV daily plus supplemental potassium magnesium. Otherwise continue Aldactone, lisinopril and atenolol as previous. 3. Acute metabolic encephalopathy with urine drug screen positive for MDMA compounding #1 & #2 - CT scan of head done in ER. MDMA cessation will be strongly encouraged. Otherwise continue supportive care monitor for improvement. 4. Hypokalemia of 3.3 mmol/L present on admission - Give supplemental KCl and then recheck BMP in a.m. to ensure improvement. 5. Generalized weakness and ambulatory dysfunction as patient is now having difficulty caring for self at home arising from #1 - #3 in the setting of previously diagnosed adult failure to thrive - PT/OT and case management consult and treat in the a.m. on rounds with help appreciated in advance. 6. Recent admission here from June 30, 2023 to July 02, 2023 for non-ST elevation WI; evidenced by initial elevated troponin of 6,617 pg/mL followed by a second troponin of 11,535 pg/mL managed medically without LHC after echocardiogram revealing normal LVEF with no significant wall motion abnormalities but with patient now failing the strategy of medical management - Noted. 7. Chronic and ongoing tobacco abuse ~1.5 ppd; with subsequent COPD and chronic hypoxic respiratory failure - Tobacco cessation will be strongly encouraged. Continue supplemental oxygen as previous. 8. History of chronic diastolic CHF; with preserved LVEF ~60% (2022) - Stable. Resume home medications. 9. History of secondary arterial hypertension - Noted. 10. History of nonrheumatic tricuspid valve insufficiency and nonrheumatic mitral regurgitation - Noted with recent echo performed last admission. 11. Essential hypertension - Continue home regimen plus give as needed IV hydralazine for systolic blood pressure greater than 160 mmHg. 12. Hyperlipidemia - Resume statin. 13. Hypothyroidism; with history of thyroidectomy to treat thyroid cancer - Stable. Continue levothyroxine as previous. 14. History of carotid artery stenosis - Noted. 15. History of TIA/CVA - Noted. 16. History of pneumonia - Noted. 17. History of rectal cancer - Noted. 18. History of avascular necrosis of the Left femoral head - Noted. 19. Osteoarthritis of the Left hip, DDD; with chronic back pain - Give Tylenol as needed. 20. History of benzodiazepine dependence - UDS negative for benzodiazepines this admission. 21. Overactive bladder - Continue current treatment. 22. Depression and anxiety - Resume home medications as previous. 23. Chronic anemia - Stable with hemoglobin of 11.3 g/dL present on admission. 24. GERD - Resume Protonix 40 mg p.o. twice daily. 25. History of listed allergies to both penicillin and morphine - Noted. We will avoid these agents. 26. DVT prophylaxis - Patient on IV heparin for #1 which will be continued Total time: Approximately 75 minutes. Charges/Coding Visit Charges Inpatient E&M: 73783 Init Hosp L3
[2023-07-03] MEDS: Haloperidol Lactate 5 MG/ML Vial 2 MG IV (20:58)
[2023-07-03] MEDS: Midazolam 2 MG/2 ML Syringe IV (20:58)
--- NOTE | 2023-07-03 21:07 | ED.RN ---
after speaking with daughter, Santa (ABRAHAM), pt still refusing CT scan. Dr. Thurston aware and ordered medications. pt medicated with Haldol and Versed to obtain CT scan. vitals WNL and patient resting in position of comfort.
[2023-07-03 21:10] LABS: Troponin-I HS 4460 pg/mL (3.0-54.0)
--- NOTE | 2023-07-03 22:40 | EKG12_ITS ---
Test Reason : ADM EKG Blood Pressure : / mmHG Vent. Rate : 054 BPM Atrial Rate : 054 BPM P-R Int : 180 ms QRS Dur : 086 ms QT Int : 506 ms P-R-T Axes : 073 074 076 degrees QTc Int : 479 ms Sinus bradycardia Nonspecific ST abnormality Abnormal ECG When compared with ECG of 03-JUL-2023 17:15, MANUAL COMPARISON REQUIRED, DATA IS UNCONFIRMED Confirmed by MINE GOLD, GOPAL ([id number]), scientific editor WALLY LOAIZA ([id number]) on 07/09/2023 6:39:30 AM Referred By: NUNN Confirmed By:BRAN BLOUNT MD
[2023-07-03] MEDS: Enoxaparin 60 MG/0.6 ML Syringe SC (23:50)
[2023-07-04] VITALS (11 sets, daily range): BP systolic 108–167; BP diastolic 52–83; PULSE 56–71; RESP 12–20; TEMP 36.5–36.9; O2SAT 80–98
[2023-07-04 00:13] LABS: Troponin-I HS 4856 pg/mL (3.0-54.0)
[2023-07-04 01:05] LABS: Blood Gas Specimen Type VEN; O2 Delivery Device Room Air; SITE Not entered; VBG BASE EXCESS 5 mmol/L (-1.0-3.5); VBG Bicarbonate 31 mmol/L (22-26); VBG PO2 71 mmHg (25-40); VBG SO2 93 % (50-70); VBG TCO2 33 mmol/L (23-33); VBG pH 7.34 (7.32-7.42)
[2023-07-04] MEDS: Albuterol 2.5 MG/3 ML VIAL.NEB. 0.83333 MG INHALATION (05:39)
[2023-07-04 05:52] LABS: Hemoglobin 11.5 g/dL (12.0-15.0); Mean Corp Hgb Conc 30.3 g/dL (32-36); Mean Corpuscular Hgb 26.1 pg (27.0-32.0); Mean Corpuscular Volume 86.2 fL (81-99); Mean Platelet Vol. 9.9 fl (6.2-12.0); Platelet Count 253 K/mm3 (150-450); RBC Distribution Width CV 18.9 % (11.6-14.6); Red Blood Count 4.41 M/mm3 (4.2-5.4); White Blood Count 4.4 K/mm3 (4.4-11.0)
[2023-07-04 06:17] LABS: ALB/GLOB Ratio 0.8 RATIO (0.9-2.4); AST(SGOT) 23 U/L (15-37); Alanine Aminotransfer ALT/SGPT 14 U/L (13-56); Alkaline Phosphatase 119 U/L (45-117); Anion Gap 5 (5-15); BUN 15 mg/dL (7-18); BUN/Creat Ratio 24.7 RATIO (10-20); Calcium,Total 8.6 mg/dL (8.5-10.1); Chloride 107 mmol/L (98-107); Creatinine, Serum 0.61 mg/dL (0.55-1.02); EST Glomerular Filtration Rate 102 mL/min (>60); Est Glom Filt Rate - Afr Amer 123 mL/min (>60); Estimated Creatinine Clearance 42.97 ml/min; Globulin 3.8 g/dL (2.2-4.2); Glucose 100 mg/dL (74-106); Potassium 3.5 mmol/L (3.5-5.1); Protein, Total 6.8 g/dL (6.4-8.2); Sodium Level 141 mmol/L (136-145)
[2023-07-04 06:25] LABS: Troponin-I HS 4466 pg/mL (3.0-54.0)
[2023-07-04 07:33] LABS: BNP,B-Type NATRIURETIC PEPTIDE 451.1 pg/mL (0-100)
--- NOTE | 2023-07-04 07:40 | RAD_ITS ---
STUDY: X-RAY CHEST REASON FOR EXAM: Female, 78 years old. AE CHF TECHNIQUE: PA and lateral views of the chest. COMPARISON: July 03, 2023 FINDINGS: 1. No visualized new infiltrate or area of consolidation 2. Redemonstration of moderate interstitial thickening/fibrosis throughout both lungs with COPD and emphysematous changes in the background 3. No visualized pleural effusion 4. Normal heart size 5. Stable CABG clips 6. Stable mediastinum and osseous structures There is no demonstrated abnormality of the visualized soft tissue structures of the upper abdomen. RAD/Chest PA and Lateral IMPRESSION: Degenerative changes, as described above. No demonstrated acute cardiopulmonary process. Electronically Signed: Kirk Mccarty MD at 11:14 EDT ,
--- NOTE | 2023-07-04 08:18 | PN.HOSP_ITS ---
Reason for Visit Reason for Visit: Chest pain/weakness/confusion Subjective Subjective Patient is a 78-year-old white female with a significant cardiac history who presented to the emergency department at [facility] on 07/02/2024 with worsening chest pain/increasing generalized weakness/and confusion. She had a recent admission here from 06/30/2023 through 07/02/2023 at which time she came in for chest pain and was found a markedly elevated cardiac enzymes. Cardiology was consulted and echocardiogram was done. Echocardiogram was unchanged from previous and cardiology, after discussing with her, felt medical management would be adequate as her chest pain had resolved per her report and there were no changes on her echocardiogram. Upon presentation, the patient reported that she had chest pain from the time of discharge up until the time of representation to the emergency department and reported that it was substernal in nature and pressure-like that radiated into her upper abdomen. She had no exacerbating or relieving factors. She reported that her chest pain was similar to her previous symptoms when she had previous LA. She also is becoming increasingly weak and having decreased energy with difficulty caring for herself at home. She has 2 daughters that live locally and are actively involved in her care and are frustrated with her lack of progress despite recent admission. She denies any fevers, chills, nausea, vomiting, diaphoresis or palpitations and had transient lethargy in the emergency department after being on Haldol and Versed for CT of the brain. Vital signs on presentation showed temperature of 98.1, heart rate 61, respiratory was 20, blood pressure initially was 172/98 with a repeat of 149/72 and pulse ox was 94% on room air. Her CBC showed mild stable chronic anemia with a hemoglobin of 11.3 but was otherwise unremarkable. A VBG was done and showed a pH of 7.34. Chemistry panel showed mild hypokalemia potassium of 3.3, normal renal function, glucose of 169, normal transaminases with an initial troponin of 4295. Her troponin most recently obtained on 07/01/2023 was 12,194. Troponin was repeated and was up to 4460 so she was treated as a new NSTEMI. A lipase was obtained due to her abdominal pain was found to be 17. Chest x-ray was unremarkable. CT of the brain demonstrated moderate atrophy and advanced periventricular white matter ischemic changes as well as an old lacunar infarct in the right basal ganglia and an old infarct in the distribution of the right posterior cerebral artery with no mass effect or bleeding. EKG showed sinus rhythm with a heart rate of 62, normal intervals and no ST-T wave changes concerning for acute ischemia. She was admitted to the PCU and treated for NSTEMI with consultation to cardiology for assistance with her chest pain and cardiac enzyme elevation as well as physical and Occupational Therapy for assistance with discharge planning purposes. Patient is alert and oriented today however she is extremely paranoid. Does have history of psychiatric illness and follows with psychiatrist at [facility]. She is concerned that by taking her medicines that we are giving her she were trying to kill her and she did come in with markedly elevated blood pressure so we suspect she was noncompliant at home and there is concern that maybe she was having paranoia at home. We will continue to treat her medically and when she is medically cleared we will have crisis evaluate her for possible [facility] psych placement. Patient denies any chest pain or shortness of breath at this time. Objective Data Objective Data Vital Signs: Vital Signs Temp Pulse Resp BP Pulse Ox O2 Del Method O2 Flow Rate 98.2 F 56 L 16 158/57 H 94 Nasal Cannula 2 07/04/23 05:11 07/04/23 05:43 07/04/23 05:43 07/04/23 05:11 07/04/23 06:13 07/04/23 07:33 07/04/23 07:33 Oxygen Flow Rate (L/min) 2 Oxygen Delivery Method Nasal Cannula Weight: 51 kg Body Mass Index (BMI) 21.9 Intake & Output: Intake and Output for Last 24 Hours 07/02/23 07/03/23 07/04/23 23:59 23:59 23:59 Intake Total 0 / 0 Output Total 0 / 0 0 / 0 Balance 0 / 0 Lab / Micro Data 07/04/23 05:20 07/04/23 05:20 Labs: Laboratory Results - last 24 hr 07/03/23 17:25: WBC 4.2 L, RBC 4.33, Hgb 11.3 L, Hct 37.5, MCV 86.6, MCH 26.1 L, MCHC 30.1 L, RDW Std Deviation 59.1 H, RDW Coeff of John 18.8 H, Plt Count 262, MPV 9.8, Immature Gran % (Auto) 0.500, Neut % (Auto) 55.3, Lymph % (Auto) 31.2, [place] % (Auto) 9.2, Eos % (Auto) 3.1, Baso % (Auto) 0.7, Absolute Neuts (auto) 2.3, Absolute Lymphs (auto) 1.32, Nucleated RBC % 0, Sodium 139, Potassium 3.3 L , Chloride 107, Carbon Dioxide 26.0, Anion Gap 6, BUN 12, Creatinine 0.70, Estim Creat Clear Calc 47.17, Est GFR (MDRD) Af Amer 105, Est GFR (MDRD) Non-Af 87, BUN/Creatinine Ratio 17.2, Glucose 169 H, Calcium 8.4 L, Total Bilirubin 0.50, AST 28, ALT 16, Alkaline Phosphatase 120 H, Troponin I High Sens 4295 H*, B- Natriuretic Peptide 665.7 H, Total Protein 6.7, Albumin 2.9 L, Globulin 3.8, A lbumin/Globulin Ratio 0.8 L, Lipase 17 07/03/23 19:59: Urine Color Yellow, Urine Clarity Clear, Urine pH 6.0, Ur Specific [place] 1.020, Urine Protein 15 H, Urine Glucose (UA) Normal, Urine Ketones Negative, Urine Occult Blood 25 H, Urine Nitrite Negative, Urine Bilirubin Negative, Urine Urobilinogen 1 H, Ur Leukocyte Esterase 25 H, Urine RBC 0-5 SEEN, Urine WBC 0-5 SEEN, Ur Squamous Epith Cells 0 SEEN, Urine Bacteria 0 SEEN, Urine Mucus 0 SEEN, Urine Opiates Screen NEGATIVE, Urine Methadone Screen NEGATIVE, Ur Barbiturates Screen NEGATIVE, Ur Phencyclidine Scrn NEGATIVE, Ur Amphetamines Screen NEGATIVE, MDMA (Ecstasy) Screen POSITIVE H, U Benzodiazepines Scrn NEGATIVE, Urine Cocaine Screen NEGATIVE, U Cannabinoids Screen NEGATIVE, Ur Drug Screen Comment 07/03/23 20:30: Troponin I High Sens 4460 H* 07/03/23 23:26: Troponin I High Sens 4856 H* 07/04/23 05:20: WBC 4.4, RBC 4.41, Hgb 11.5 L, Hct 38.0, MCV 86.2, MCH 26.1 L, M CHC 30.3 L, RDW Std Deviation 59.0 H, RDW Coeff of John 18.9 H, Plt Count 253, MPV 9.9, Sodium 141, Potassium 3.5, Chloride 107, Carbon Dioxide 29.0, Anion Gap 5, BUN 15, Creatinine 0.61, Estim Creat Clear Calc 42.97, Est GFR (MDRD) Af Amer 123, Est GFR (MDRD) Non-Af 102, BUN/Creatinine Ratio 24.7 H, Glucose 100, Calcium 8.6, Total Bilirubin 0.50, AST 23, ALT 14, Alkaline Phosphatase 119 H, T roponin I High Sens 4466 H*, B-Natriuretic Peptide 451.1 H, Total Protein 6.8, A lbumin 3.0 L, Globulin 3.8, Albumin/Globulin Ratio 0.8 L ABG Data ABG results: ABG 07/04/23 01:00 Specimen Type LUIS Sample Site Not entered VBG pH 7.34 VBG pO2 71 H VBG HCO3 31 H VBG Total CO2 33 VBG O2 Sat (Calc) 93 H VBG Base Excess 5 H POC Mix VBG pCO2 Pt Tmp 57.0 H O2 Delivery Device Room Air Radiography Diagnostic Testing: Radiology Impression Chest X-Ray 07/03/23 17:35 IMPRESSION: ASHD. No acute cardiopulmonary pathology Electronically Signed: Hany Desai MD at 17:49 EDT , Brain CT 07/03/23 19:45 IMPRESSION: Moderate atrophy and advanced periventricular white matter ischemic changes.. Old lacunar infarct in the right basal ganglia and old infarct in distribution of right posterior cerebral artery.. No mass or acute bleed. If concern for acute infarct MRI recommended Electronically Signed: Hany Desai MD at 22:00 EDT , Physical Exam Const alert, oriented x3, no apparent distress and average body habitus; Negative for healthy appearing or well nourished Constitutional Narrative: Older, white female, sitting up in bed, appears older than stated age, does not appear toxic, nursing at bedside, appears malnourished on exam HEENT head/scalp atraumatic, moist oral mucous membranes and oropharynx normal HEENT Narrative: Temporal wasting, dentition is poor, Mallampati is 2, no thrush Head and Scalp: normocephalic Eyes PERRL, EOMs intact bilaterally and conjunctivae normal Eyes Narrative: No scleral icterus Neck no lymphadenopathy and supple Neck Narrative: Trachea midline, no thyroid enlargement Resp normal respiratory effort, no retractions, no use of accessory muscles and clear to auscultation bilaterally Resp Narrative: Diminished but clear Auscultation: Negative for rales, rhonchi or wheezes Cardio regular rate, regular rhythm, S1 normal heart sound, S2 normal heart sound, no murmurs, no rub, no gallops and no clicks GI normal to inspection, nondistended, normoactive bowel sounds, soft to palpation and non-tender Extremity no clubbing, cyanosis or edema Extremity Narrative: Decreased lean muscle mass, pedal pulses are 1+ bilaterally Skin skin turgor normal, no jaundice, no petechiae and no mottling Skin Narrative: Scattered ecchymosis from various falls in various stages of healing Neuro oriented x3, moves all extremities and no focal motor deficits Speech: speech normal Psych Psych Narrative: Affect is slightly flat, seems paranoid but interacts well with me, oriented x 3, refusing to take her pills for nursing as she is concerned somebody may kill her Assessment & Plan Assessment/Plan (1) Elevated troponin: PLAN: Plan Chest pain/troponin elevation -Recent NSTEMI and troponin is slightly fluctuating however I would not say that she has a new NSTEMI at this time -It was felt that her previous troponin elevation was likely related to small vessel disease and patient was asymptomatic at discharge however she reported that she has been having chest pain since discharge -Blood pressure was markedly elevated on presentation I suspect she may not be taking her home medications due to her paranoia chest pain is gone and patient did take her medications reluctantly for is here today -Limited echo ordered -Continue Plavix -Continue aspirin -Continue statin -Will continue heparin drip for now until seen by cardiology -At recent admission patient deferred cardiac catheterization and preferred medical management -Echocardiogram at that time showed an EF of 60% with stage II diastolic dysfunction, severe left atrial enlargement, trivial mitral valve insufficiency, mild tricuspid valve insufficiency and trivial aortic valve insufficiency -This echo was unchanged from previous -Cardiology consultation is pending -N.p.o. until plan ascertained Acute hypoxia secondary to acute heart failure with preserved ejection fraction (diastolic dysfunction) -patient is not oxygen dependent at baseline -Oxygen saturations this morning were 80% on room air -Add incentive spirometry -Checks x-ray on presentation was unremarkable but BNP was markedly elevated at 451.1 -Continue IV Lasix per cardiology recommendations -Add incentive spirometry -Will need home O2 eval prior to discharge -Add I's and O's -Add daily weights -Will fluid restrict diet to 1750 daily -Sodium restrict diet to 2 g daily once p.o. diet is initiated Toxic/metabolic encephalopathy -Drug screen positive for MDMA however that is likely cross reaction with Wellbutrin -CT scan of the brain unremarkable -Continue to monitor and hopefully improves his medical condition improves Generalized weakness and debility secondary to chronic medical conditions and advancing age -PT/OT consultation -Case management/social work consult to assist with discharge planning -Patient may need home health or placement at discharge depending on how she progresses during her hospital course Severe malnutrition -Consult dietitian -Supplements added CAD/HTN/HPL/carotid artery stenosis -History of CABG x3 in 2007 -PCI with [facility] 10/10/2021 -Continue Plavix -Continue aspirin -Continue home lisinopril -Continue isosorbide mononitrate -Continue home with atenolol -Continue Aldactone -Continue home atorvastatin History of stroke/TIA -Continue statin -Continue Plavix -Continue aspirin Hypothyroidism -Continue Synthroid COPD -Continue as needed aerosols -No acute exacerbation -If surgical intervention proceeded with would recommend scheduled DuoNebs for the short-term History of rectal cancer -Hemoglobin is stable -No acute issues -Continue outpatient follow-up -Hemoglobin stable on aspirin and Plavix Chronic anemia -Hemoglobin stable at 11.5 next-monitor GERD -Continue Protonix 40 mg twice daily Depression/anxiety -Continue home lorazepam 0.5 mg 3 times daily -Continue bupropion -Continue citalopram -Continue Seroquel 50 mg at at bedtime -Concerned that patient may be slightly decompensated from a psychiatric standpoint as she is seems to be having significant paranoia which sounds like it may be compromising her functional status at home -Follows at [facility] with psychiatry -Will have crisis evaluate her to see if she would benefit from [facility] psych placement when she is medically stable Chronic pain -Continue home pain regimen Urinary incontinence -Continue oxybutynin Tobacco abuse -Recommend cessation -currently smoking approximately 1-1/2 packs/day -Nicotine patch will be made available if patient needs DVT prophylaxis -Heparin drip currently CODE STATUS -DNR CCA with no intubation Charges/Coding Visit Charges Inpatient E&M: 28809 Subs Hosp L3
--- NOTE | 2023-07-04 08:41 | CASEMGMT ---
JOHN BYRNES Assessment: Face to Face with pt for initial transition planning/care coordination assessment. JOHN BYRNES introduced self and role at [facility], pt voices understanding and consents to assessment. Pt is A&O x4 and answers all questions appropriately at this time. Pt resting in bed with oxygen on. Care providers, pharmacy, and demographics verified/updated. Admitting Dx: NSTEMI PCP: Dr. Rojas Specialists: [facility] Preferred Pharmacy: [facility] Insurance: [employer] [facility] Prescription Benefit: yes LNOK: Daughters Shyanne and Santa Living Arrangements: Pt lives at home with daughter Santa. Home is single story with 2-4 steps to enter, with a single rail. Pt reports she is independent with ADLs. Pt reports she does do her own cooking, bathing, and dressing. She reports she needs assist getting out of the shower. Pt reports if she does need extra assist at times her daughters will assist. Pt reports that she goes to the grocery store with Santa. Pt is able to ambulate with her walker. Transportation: Pt does not drive. She reports her daughters provide any needed transportation. DME: Pt has a walker, and electric w/c, and a shower chair. Pt reports her bathroom is handicap accessible. HHC/SNF: Pt reports a history of both SNF and HHC but is unable to recall agencies used. She reports both were a good experience. Pt states no concerns with going home at time of dc. Pt states no further concerns/needs. CM to follow. Advised pt to ask CM if any further question/concerns/needs arise, voices understanding. Pt Goal: Home. Pt informed this designer writer that she feels she can DC home and care for herself. Plan: Noted that pt had difficulty repositioning herself in the bed. Informed pt that we want to make sure she is safe to DC home and be able to care for herself. Pt aware that she has PT/OT evaluations ordered and that CM will follow up after evals complete to discuss disposition. HHC vs SNF. Comfort Raza MSN, RN, CCM
[2023-07-04] MEDS: Aspirin E.C. 81 MG Tablet PO (09:00)
[2023-07-04] MEDS: Spironolactone 25 MG Tablet PO (09:02)
[2023-07-04] MEDS: Citalopram 40 MG TABLET PO (09:03)
[2023-07-04] MEDS: Isosorbide Mononitrate 30 MG Tablet PO (09:05)
[2023-07-04] MEDS: Pantoprazole Sodium 40 MG Tablet PO (09:07)
[2023-07-04] MEDS: Clopidogrel Bisulfate 75 MG Tablet PO (09:07)
[2023-07-04] MEDS: Lisinopril 20 MG Tablet PO ×2 (09:08→20:58)
[2023-07-04] MEDS: Atenolol 50 MG Tablet PO (09:09)
--- NOTE | 2023-07-04 09:26 | ECHOL_ITS ---
Reason For Study: NSTEMI Procedure This was a limited 2D transthoracic echocardiogram. Exam performed portable in patient room. Left Ventricle Normal LV size. The estimated ejection fraction is 65 %. Stage 2 diastolic dysfunction. No regional wall motion abnormalities noted. Right Ventricle Normal RV size. Normal systolic function. Atria The left atrium is severely enlarged. Normal right atrium. Mitral Valve There is no mitral valve stenosis. No mitral valve insufficiency. Tricuspid Valve There is no tricuspid stenosis. Mild tricuspid valve insufficiency. Aortic Valve Trisinus/trileaflet aortic valve. There is no aortic stenosis. No aortic valve insufficiency. MMode/2D Measurements & Calculations LVIDd: 4.7 cm IVSd: 1.0 cm LVOT diam: 2.1 cm LVIDs: 3.2 cm LVPWd: 1.0 cm RVDd: 3.1 cm FS: 32.2 % LVOT area: 3.5 cm2 Ao root diam: 2.8 cm LAV(MOD-bp): 69.5 ml LVAd ap4: 20.8 cm2 LAV(MOD-bp) Indexed: 47.5 ml/m2 LVLd ap4: 6.6 cm LAV(MOD-sp2): 75.1 ml EDV(MOD-sp4): 56.2 ml LAV(MOD-sp4): 63.4 ml EDV(sp4-el): 55.8 ml LVAs ap4: 10.5 cm2 LVLs ap4: 5.8 cm ESV(MOD-sp4): 18.2 ml ESV(sp4-el): 16.4 ml EF(MOD-sp4): 67.5 % EF(sp4-el): 70.6 % LVAd ap2: 19.0 cm2 SV(MOD-sp4): 37.9 ml SV(MOD-sp2): 27.7 ml LVLd ap2: 6.8 cm EDV(MOD-sp2): 45.0 ml EDV(sp2-el): 45.2 ml LVAs ap2: 10.3 cm2 LVLs ap2: 5.8 cm ESV(MOD-sp2): 17.3 ml ESV(sp2-el): 15.5 ml EF(MOD-sp2): 61.5 % SV(sp4-el): 39.4 ml LA A4 area: 22.3 cm2 LA dimension(2D): 4.5 cm RA A4 area: 14.9 cm2 TAPSE: 1.3 cm Time Measurements MV dec time: 0.19 sec Doppler Measurements & Calculations MV E max nabil: 69.8 cm/sec Lat Peak E' Nabil: 6.6 cm/sec Med Peak E' Nabil: 4.0 cm/sec MV A max nabil: 51.8 cm/sec E/E' lat: 10.5 E/E' med: 17.4 MV E/A: 1.3 MV dec slope: 364.7 cm/sec2 Ao V2 max: 128.6 cm/sec LV V1 max: 106.0 cm/sec Ao max P.6 mmHg LV V1 max P.5 mmHg Ao V2 mean: 83.1 cm/sec LV V1 mean P.2 mmHg Ao mean P.3 mmHg LV V1 mean: 67.1 cm/sec Ao V2 VTI: 27.5 cm LV V1 VTI: 22.4 cm AV (velocity ratio): 0.81 ANASTACIA(I,D): 2.8 cm2 ANASTACIA(V,D): 2.9 cm2 SV(LVOT): 78.4 ml TR max nabil: 191.0 cm/sec TR max P.6 mmHg ECHO/Echo, Limited Study Interpretation Summary The estimated ejection fraction is 65 %. Stage 2 diastolic dysfunction. The left atrium is severely enlarged. Ordering Physician: Ja Kumar Performed By: Jazzmine Holloway RDCS
--- NOTE | 2023-07-04 09:28 | CON.PCM.CA_ITS ---
Assessment & Plan Assessment/Plan (1) Elevated troponin: PLAN: Patient's troponins were in the 4000 range in the emergency department. They had been 12,000 on 07/01/2023. I suspect this represents a combination of falling troponins from that initial event and the fact that her blood pressure was 172/98 in the emergency department. The patient did have a transient right bundle branch block with T wave inversions that resolved spontaneously. She is denying any anginal type symptoms now and she has chronic sharp chest pains that she complains of frequently. She is even denying those at this time. We will obtain a limited echo to reevaluate her LV function it was normal 07/01/2023. (2) (HFpEF) heart failure with preserved ejection fraction: QUALIFIERS: Heart failure chronicity: chronic Qualified Code(s): I50.32 - Chronic diastolic (congestive) heart failure PLAN: The patient does not appear to be in heart failure I recommend we DC the IV Lasix after the morning dose. She should be continued on her other medications as ordered. (3) Abnormal electrocardiogram: PLAN: The patient had a transient right bundle branch block at approximately 1700 hrs. yesterday in the emergency department. By 2300 hrs. it was resolved. There is no acute ischemic changes noted on her current EKG. (4) Altered mental status: QUALIFIERS: Altered mental status type: disorientation Qualified Code(s): R41.0 - Disorientation, unspecified PLAN: The altered mental status is being managed by the primary service. I am very concerned about taking this patient to the [facility] with her altered mental status, her decreasing troponins and lack of ongoing chest symptoms and lack of ischemic EKG changes. PLAN: Plan 1. Will continue to him to monitor clinically. 2. Will obtain limited 2D echocardiogram to reevaluate LV function. If there is new LV wall motion abnormality would have to reconsider invasive evaluation after detailed discussion with family. HPI Consult Data Date of Consult: 07/04/23 HPI Narrative HPI Narrative: MAURICE WALLACE, is a 78 F who presents with lethargy and chest and abdominal discomfort. The patient does not know this morning why she came to the emergency room yesterday. She reports that she is having no pain at this time. The patient was admitted on 06/30/2023 with elevated enzymes and no EKG changes and echocardiogram performed which showed normal LV function with no wall motion abnormalities. She was treated medically and had no recurrence of any chest symptoms. Her EKG did not show any ischemic changes during that hospitalization. The patient is unable to tell me who she lives with at this time other than it may be one of her daughters. She is very slow and deliberate with answering any questions. She was also observed to have some choking while trying to swallow earlier today. The patient seems to be oriented to person and knows that she is in the hospital. She specifically denies any shortness of breath or chest pain at this time. She denies any lower extremity edema and she denies any shortness of breath. However she had been placed on oxygen 2 L nasal cannula O2 sat is 95% at this time. She is being weaned to room air. On initial presentation in the ER blood pressures were elevated at 172/98. EKG showed a right bundle branch block with T wave inversions in V1 through V3. Repeat EKG few hours later showed normal sinus rhythm with no bundle branch block and nonspecific minor ST-T wave changes. This appears to be unchanged from her old EKG. [facility] Medical History Chronic hypoxic respiratory failure Adult failure to thrive Osteoarthritis of left hip Avascular necrosis of femur head, left Anemia Declining functional status Unable to bear weight on left lower extremity Non-rheumatic mitral regurgitation History of rectal cancer Hemorrhoids, external Carotid artery stenosis CAD (coronary artery disease) Non-ST elevation (NSTEMI) myocardial infarction TIA (transient ischemic attack) CVA (cerebral vascular accident) History of thyroid cancer Depression with anxiety DDD (degenerative disc disease), lumbar H/O: pneumonia Diastolic dysfunction Atherosclerosis of coronary artery bypass graft without angina pectoris Benzodiazepine dependence Back pain COPD (chronic obstructive pulmonary disease) Obstructive sleep apnea Anxiety and depression Hypothyroidism Non-rheumatic tricuspid valve insufficiency Secondary pulmonary arterial hypertension Nicotine dependence Hyperlipidemia Atherosclerosis of coronary artery of knik heart with angina pectoris Essential (primary) hypertension Home Medications ?Medication ?Instructions ?Recorded ?Last Taken ?Type levothyroxine 75 mcg tablet 75 mcg PO DAILY THYROID 09/06/17 01/29/23 History citalopram 40 mg tablet 40 mg PO DAILY DEPRESSION 12/18/17 01/29/23 History atenolol 50 mg tablet 50 mg PO DAILY BLOOD PRESSURE 01/05/18 04/19/22 History atorvastatin 40 mg tablet 40 mg PO QHS CHOLESTEROL 01/05/18 01/28/23 History albuterol sulfate 0.63 mg/3 mL 0.63 mg inhalation Q4H PRN 07/14/18 1 Week Ago History solution for nebulization Congestion ~10/01/21 pantoprazole 40 mg tablet,delayed 40 mg PO BID GERD 01/16/19 04/19/22 History release oxybutynin chloride 5 mg 5 mg PO DAILY BLADDER 10/08/21 01/29/23 History tablet,extended release 24 hr clopidogrel 75 mg tablet 75 mg PO QODAY BLOOD THINNER 07/12/22 01/29/23 History melatonin 10 mg sublingual tablet 10 mg PO QHS INSOMNIA #0 tabs 02/12/23 Unknown Rx acetaminophen 500 mg tablet 1,000 mg PO Q6H PRN Pain Score 1-10 02/16/23 Unknown History furosemide 20 mg tablet (Lasix) 20 mg PO DAILY PRN DIURETIC #30 02/20/23 01/29/23 Rx tabs lorazepam 0.5 mg tablet 0.5 mg PO TID 30 days #90 tabs 02/20/23 Unknown Rx bupropion HCl 150 mg tablet,12 hr 150 mg PO DAILY mental health 06/30/23 Unknown History sustained-release gabapentin 100 mg capsule 100 mg PO DAILY nerve pain 06/30/23 Unknown History meloxicam 15 mg tablet 15 mg PO DAILY pain 06/30/23 Unknown History quetiapine 50 mg tablet 50 mg PO QHS mental health 06/30/23 Unknown History aspirin 81 mg tablet,delayed 81 mg PO BREAKFAST #30 tabs 07/02/23 Unknown Rx release guaifenesin 1,200 mg tablet, 1,200 mg PO BID #20 tabs 07/02/23 Unknown Rx extended release 12 hr (Mucus Relief ER) isosorbide mononitrate 30 mg 30 mg PO DAILY #90 tabs 07/02/23 Unknown Rx tablet,extended release 24 hr lisinopril 20 mg tablet 20 mg PO BID BLOOD PRESSURE #60 07/02/23 04/19/22 Rx tabs spironolactone 25 mg tablet 25 mg PO DAILY #30 tabs 07/02/23 Unknown Rx Allergy/AdvReac Type Severity Reaction Status Date / Time morphine Allergy PT UNSURE Verified 06/30/23 17:43 Penicillins Allergy Hives Verified 06/30/23 17:43 tramadol HCl (From Ultram) Allergy PT UNSURE Verified 06/30/23 17:43 bupropion (From Wellbutrin) AdvReac hallucinati Verified 06/30/23 17:43 ons Family History Father Heart disease of heart attack at age 64 Mother Cancer of cancer at age 72 CVA (cerebral vascular accident) Surgical History Hx of thyroidectomy Presence of stent in coronary artery (~10/10/21) History of left heart catheterization (10/10/21) History of appendectomy Hx of cholecystectomy History of coronary artery stent placement (10/10/21) History of coronary artery bypass graft x 3 (~2007) Social History household members: children and other details: Daughter. housing: house Smoking Status: Heavy Smoker (>10/day) details: Patient denies alcohol use substance use type: does not use ROS Review of Systems ROS Unobtainable: due to mental status Cardiovascular Cardiovascular: Reports as per HPI Respiratory/Chest Respiratory/Chest: Reports as per HPI Physical Exam Const Constitutional Narrative: Very slow to answer questions resting comfortably in the bed in the recumbent position. HEENT normocephalic HEENT Narrative: Very poor snf. Eyes EOMs intact bilaterally Neck no JVD Carotids: Negative for bruit Chest Chest: midline sternotomy incision Resp normal respiratory effort Resp Narrative: The patient has a difficult time complying with taking deep breaths and holding her breath. Auscultation: crackles bilateral (Scant in the lower lung cortes.) Cardio regular rate, regular rhythm, S1 normal heart sound, S2 normal heart sound, no murmurs, no rub and no gallops Jugular Venous Distention: Negative for JVD Extremity no pedal edema Neuro Neuro Narrative: The patient is oriented to person not oriented to time and questionably oriented to place. Psych Psych Narrative: Patient is confused but cooperative. Risk Stratification Risk Stratification Applicable: Yes Age >/= 65: Yes >/= 3 CAD Risk Factors (HTN, HLD, DM, family hx of CAD, or current smoker): Yes Aspirin Use in the Past 7 Days: Yes Severe Angina (>/= episodes in 24 hours): No EKG ST Changes >/= 0.5mm: No Positive Cardiac Marker: Yes SAL Risk Stratification Score: 4 SAL % Risk: 20% Risk Charges/Coding Visit Charges Inpatient E&M: 90633 Init Hosp L3 Objective Data Vital Signs: Vital Signs Temp Pulse Resp BP Pulse Ox O2 Del Method O2 Flow Rate 98.1 F 59 L 18 167/83 H 95 Nasal Cannula 2 07/04/23 08:47 07/04/23 08:47 07/04/23 08:47 07/04/23 08:47 07/04/23 08:47 07/04/23 08:47 07/04/23 08:47 Oxygen Flow Rate (L/min) 2 Oxygen Delivery Method Nasal Cannula Weight: 112 lb 6.972 oz Body Mass Index (BMI) 21.9 Intake & Output: Intake and Output for Last 24 Hours 07/02/23 07/03/23 07/04/23 23:59 23:59 23:59 Intake Total 0 / 0 20 20 Output Total 0 / 0 0 / 0 Balance 0 / 0 20 Lab / Micro Data Attestation: I reviewed the patient's lab results. 07/04/23 05:20 07/04/23 05:20 Labs: Laboratory Results - last 24 hr 07/03/23 17:25: WBC 4.2 L, RBC 4.33, Hgb 11.3 L, Hct 37.5, MCV 86.6, MCH 26.1 L, MCHC 30.1 L, RDW Std Deviation 59.1 H, RDW Coeff of John 18.8 H, Plt Count 262, MPV 9.8, Immature Gran % (Auto) 0.500, Neut % (Auto) 55.3, Lymph % (Auto) 31.2, Lea % (Auto) 9.2, Eos % (Auto) 3.1, Baso % (Auto) 0.7, Absolute Neuts (auto) 2.3, Absolute Lymphs (auto) 1.32, Nucleated RBC % 0, Sodium 139, Potassium 3.3 L , Chloride 107, Carbon Dioxide 26.0, Anion Gap 6, BUN 12, Creatinine 0.70, Estim Creat Clear Calc 47.17, Est GFR (MDRD) Af Amer 105, Est GFR (MDRD) Non-Af 87, BUN/Creatinine Ratio 17.2, Glucose 169 H, Calcium 8.4 L, Total Bilirubin 0.50, AST 28, ALT 16, Alkaline Phosphatase 120 H, Troponin I High Sens 4295 H*, B- Natriuretic Peptide 665.7 H, Total Protein 6.7, Albumin 2.9 L, Globulin 3.8, A lbumin/Globulin Ratio 0.8 L, Lipase 17 07/03/23 19:59: Urine Color Yellow, Urine Clarity Clear, Urine pH 6.0, Ur Specific [place] 1.020, Urine Protein 15 H, Urine Glucose (UA) Normal, Urine Ketones Negative, Urine Occult Blood 25 H, Urine Nitrite Negative, Urine Bilirubin Negative, Urine Urobilinogen 1 H, Ur Leukocyte Esterase 25 H, Urine RBC 0-5 SEEN, Urine WBC 0-5 SEEN, Ur Squamous Epith Cells 0 SEEN, Urine Bacteria 0 SEEN, Urine Mucus 0 SEEN, Urine Opiates Screen NEGATIVE, Urine Methadone Screen NEGATIVE, Ur Barbiturates Screen NEGATIVE, Ur Phencyclidine Scrn NEGATIVE, Ur Amphetamines Screen NEGATIVE, MDMA (Ecstasy) Screen POSITIVE H, U Benzodiazepines Scrn NEGATIVE, Urine Cocaine Screen NEGATIVE, U Cannabinoids Screen NEGATIVE, Ur Drug Screen Comment 07/03/23 20:30: Troponin I High Sens 4460 H* 07/03/23 23:26: Troponin I High Sens 4856 H* 07/04/23 05:20: WBC 4.4, RBC 4.41, Hgb 11.5 L, Hct 38.0, MCV 86.2, MCH 26.1 L, M CHC 30.3 L, RDW Std Deviation 59.0 H, RDW Coeff of John 18.9 H, Plt Count 253, MPV 9.9, Sodium 141, Potassium 3.5, Chloride 107, Carbon Dioxide 29.0, Anion Gap 5, BUN 15, Creatinine 0.61, Estim Creat Clear Calc 42.97, Est GFR (MDRD) Af Amer 123, Est GFR (MDRD) Non-Af 102, BUN/Creatinine Ratio 24.7 H, Glucose 100, Calcium 8.6, Total Bilirubin 0.50, AST 23, ALT 14, Alkaline Phosphatase 119 H, T roponin I High Sens 4466 H*, B-Natriuretic Peptide 451.1 H, Total Protein 6.8, A lbumin 3.0 L, Globulin 3.8, Albumin/Globulin Ratio 0.8 L ABG Data ABG results: ABG 07/04/23 01:00 Specimen Type LUIS Sample Site Not entered VBG pH 7.34 VBG pO2 71 H VBG HCO3 31 H VBG Total CO2 33 VBG O2 Sat (Calc) 93 H VBG Base Excess 5 H POC Mix VBG pCO2 Pt Tmp 57.0 H O2 Delivery Device Room Air Cardiology Labs/Tests 07/03/23 17:25: WBC 4.2 L, RBC 4.33, Hgb 11.3 L, Hct 37.5, MCV 86.6, MCH 26.1 L, MCHC 30.1 L, Plt Count 262, MPV 9.8, Immature Gran % (Auto) 0.500, Neut % (Auto) 55.3, Lymph % (Auto) 31.2, Lea % (Auto) 9.2, Eos % (Auto) 3.1, Baso % (Auto) 0.7, Absolute Neuts (auto) 2.3, Nucleated RBC % 0, Sodium 139, Potassium 3.3 L, Chloride 107, Carbon Dioxide 26.0, Anion Gap 6, BUN 12, Creatinine 0.70, Est GFR (MDRD) Af Amer 105, Est GFR (MDRD) Non-Af 87, BUN/Creatinine Ratio 17.2, Glucose 169 H, Calcium 8.4 L, Total Bilirubin 0.50, B-Natriuretic Peptide 665.7 H 07/03/23 19:59: Urine Color Yellow, Urine Clarity Clear, Urine pH 6.0, Ur Specific [place] 1.020, Urine Protein 15 H, Urine Glucose (UA) Normal, Urine Ketones Negative, Urine Occult Blood 25 H, Urine Nitrite Negative, Urine Bilirubin Negative, Urine Urobilinogen 1 H, Ur Leukocyte Esterase 25 H, Urine RBC 0-5 SEEN, Urine WBC 0-5 SEEN 07/04/23 01:00: VBG pH 7.34, VBG pO2 71 H, VBG HCO3 31 H, VBG O2 Sat (Calc) 93 H , VBG Base Excess 5 H 07/04/23 05:20: WBC 4.4, RBC 4.41, Hgb 11.5 L, Hct 38.0, MCV 86.2, MCH 26.1 L, M CHC 30.3 L, Plt Count 253, MPV 9.9, Sodium 141, Potassium 3.5, Chloride 107, Carbon Dioxide 29.0, Anion Gap 5, BUN 15, Creatinine 0.61, Est GFR (MDRD) Af Amer 123, Est GFR (MDRD) Non-Af 102, BUN/Creatinine Ratio 24.7 H, Glucose 100, Calcium 8.6, Total Bilirubin 0.50, B-Natriuretic Peptide 451.1 H Rhythm: EKG: ECHO: Stress Test: Cardiac Cath: PCI: CT Surgery: Holter monitor: EPS: PPM: CXR: Chest CT Scan: Radiography Diagnostic Testing: Radiology Impression Chest X-Ray 07/03/23 17:35 IMPRESSION: ASHD. No acute cardiopulmonary pathology Electronically Signed: Hany Desai MD at 17:49 EDT , Brain CT 07/03/23 19:45 IMPRESSION: Moderate atrophy and advanced periventricular white matter ischemic changes.. Old lacunar infarct in the right basal ganglia and old infarct in distribution of right posterior cerebral artery.. No mass or acute bleed. If concern for acute infarct MRI recommended Electronically Signed: Hany Desai MD at 22:00 EDT ,
[2023-07-04] MEDS: Enoxaparin 60 MG/0.6 ML Syringe SC (09:33)
[2023-07-04] MEDS: Furosemide 40 MG/4 ML Vial IV (09:33)
[2023-07-04] MEDS: 0.9% Saline Lock 10 ML Syringe IV (09:33)
[2023-07-04] MEDS: buPROPion (SR) 150 MG Tablet.SA PO (09:48)
[2023-07-04] MEDS: Magnesium Chloride 64 MG Delay Rel.Tablet 128 MG PO (12:20)
--- NOTE | 2023-07-04 13:48 | CASEMGMT ---
Addendum entered by Comfort Raza 07/04/23 14:52: CM to follow up on Thursday regarding HHC as unable to confirm acceptance over the weekend/holiday. Comfort BREWER, RN, CCM Original Note: Patient was provided a list of HHC providers including quality and resource use data and consistent with the patient?s preferred geographic region, medical needs, and insurance network were provided from the [facility] Guide. Patient reports she had [facility] earlier this year and would like to have services with them again. Referral made. Comfort BREWER, RN, CCM
[2023-07-04] MEDS: LORazepam 0.5 MG Tablet PO ×2 (13:56→20:55)
--- NOTE | 2023-07-04 18:03 | NURSING ---
Pt is paranoid throughout the day.. States that she sees thing and you need to forgive yourself, you have done wrong MD aware. Dr. Purdy stated that after she is medically cleared crisis will be consulted.
[2023-07-04] MEDS: QUEtiapine 25 MG Tablet 50 MG PO (20:57)
[2023-07-04] MEDS: MELATONIN 10 MG TABLET PO (20:57)
[2023-07-04] MEDS: Atorvastatin Calcium 40 MG Tablet PO (20:58)
--- NOTE | 2023-07-04 21:49 | NURSING ---
Pt very resistive to, and suspicious of, care; refuses lovenox SQ injection, refuses to take any pills except for her Ativan and seroquel. Pt repeated calls this RN Norma stating that I intentionally put the wrong name on my badge. Pt alert and oriented to person and place but thinks it's 2003 and Bryon is the president. Pt forgives [me] for trying to kill her. Unable to rationalize with or reorient pt.
--- NOTE | 2023-07-04 23:25 | NURSING ---
PLUMBER'S HELPER called this RN to pt's room; after walking in halls w/WW, pt made several attempts to enter the rooms of other patients; PLUMBER'S HELPER attempted to redirect pt and she became belligerent and then refused to in to her own room. Pt guided to her room and then refused to get in to the bed, made several attempts to leave room again saying, you can't hold me hostage. I'm your Aunt Charissa! Pt guided to bedside and then sat down of her own accord. Refusing to lay back in bed, this RN helped pt sit back further on the bed and then lifted her legs in to bed. Pt asked if there was a snack that staff could get to help calm her, she replied ice cream. Ice cream given, 2 bites taken and then stated I just remembered I don't like vanilla. Bed exit alarm set on middle sensitivity.
[2023-07-05 01:42] VITALS: BP 138/61; PULSE 72; RESP 13; TEMP 36.8; O2SAT 95
[2023-07-05] MEDS: Levothyroxine 75 MCG Tablet PO (05:06)
[2023-07-05] MEDS: LORazepam 0.5 MG Tablet PO ×3 (05:06→20:19)
--- NOTE | 2023-07-05 05:12 | NURSING ---
AM meds crushed and given SL as to avoid pt spitting them out.
[2023-07-05 06:51] LABS: Hemoglobin 11.3 g/dL (12.0-15.0); Mean Corp Hgb Conc 30.5 g/dL (32-36); Mean Corpuscular Hgb 26.4 pg (27.0-32.0); Mean Corpuscular Volume 86.4 fL (81-99); Mean Platelet Vol. 10.4 fl (6.2-12.0); Platelet Count 266 K/mm3 (150-450); RBC Distribution Width CV 18.7 % (11.6-14.6); RBC Distribution Width SD 58.9 fl (35.1-43.9); Red Blood Count 4.28 M/mm3 (4.2-5.4); White Blood Count 8.2 K/mm3 (4.4-11.0)
[2023-07-05 07:18] LABS: Anion Gap 9 (5-15); BUN 19 mg/dL (7-18); BUN/Creat Ratio 21.5 RATIO (10-20); Calcium,Total 8.6 mg/dL (8.5-10.1); Chloride 101 mmol/L (98-107); Creatinine, Serum 0.88 mg/dL (0.55-1.02); EST Glomerular Filtration Rate 66 mL/min (>60); Est Glom Filt Rate - Afr Amer 80 mL/min (>60); Estimated Creatinine Clearance 39.07 ml/min; Glucose 151 mg/dL (74-106); Potassium 2.9 mmol/L (3.5-5.1); Sodium Level 137 mmol/L (136-145)
[2023-07-05 07:45] VITALS: O2SAT 93
--- NOTE | 2023-07-05 08:30 | PN.CARD_ITS ---
Subjective Subjective Patient refused her limited echo yesterday she became extremely paranoid felt that the permastone applicator was trying to kill her. She tried to calm her but was unsuccessful in getting her to allow the echocardiogram to be performed. This morning the patient is resting comfortably in recumbent position in bed at 15 degrees. She has no JVD she is breathing comfortably denies shortness of breath she says she episodically feels short of breath. She denies any chest discomfort other than her chronic left lower rib cage pain. Objective Data Vital Signs: Vital Signs Temp Pulse Resp BP Pulse Ox O2 Del Method O2 Flow Rate 98.3 F 72 13 138/61 H 93 Room Air 2 07/05/23 01:42 07/05/23 01:42 07/05/23 01:42 07/05/23 01:42 07/05/23 07:45 07/05/23 07:45 07/04/23 11:09 Oxygen Flow Rate (L/min) 2 Oxygen Delivery Method Room Air Weight: 112 lb 6.972 oz Body Mass Index (BMI) 21.9 Intake & Output: Intake and Output for Last 24 Hours 07/03/23 07/04/23 07/05/23 23:59 23:59 23:59 Intake Total 0 / 0 780 / 830 50 / 50 Output Total 0 / 0 0 / 0 Balance 0 / 0 780 / 830 50 / 50 Lab / Micro Data 07/05/23 05:10 07/05/23 05:10 Labs: Laboratory Results - last 24 hr 07/05/23 05:10: WBC 8.2, RBC 4.28, Hgb 11.3 L, Hct 37.0, MCV 86.4, MCH 26.4 L, M CHC 30.5 L, RDW Std Deviation 58.9 H, RDW Coeff of John 18.7 H, Plt Count 266, MPV 10.4, Sodium 137, Potassium 2.9 L, Chloride 101, Carbon Dioxide 27.0, Anion Gap 9, BUN 19 H, Creatinine 0.88, Estim Creat Clear Calc 39.07, Est GFR (MDRD) Af Amer 80, Est GFR (MDRD) Non-Af 66, BUN/Creatinine Ratio 21.5 H, Glucose 151 H , Calcium 8.6 Rhythm Strip Rhythm Strip: Sinus Rhythm Rate: 75 Ectopy: - (Short run of SVT last evening of 10 beats.) Cardiology Labs/Tests 07/05/23 05:10: WBC 8.2, RBC 4.28, Hgb 11.3 L, Hct 37.0, MCV 86.4, MCH 26.4 L, M CHC 30.5 L, Plt Count 266, MPV 10.4, Sodium 137, Potassium 2.9 L, Chloride 101, Carbon Dioxide 27.0, Anion Gap 9, BUN 19 H, Creatinine 0.88, Est GFR (MDRD) Af Amer 80, Est GFR (MDRD) Non-Af 66, BUN/Creatinine Ratio 21.5 H, Glucose 151 H, Calcium 8.6 Rhythm: EKG: ECHO: Stress Test: Cardiac Cath: PCI: CT Surgery: Holter monitor: EPS: PPM: CXR: Chest CT Scan: Physical Exam Const alert HEENT normocephalic Eyes EOMs intact bilaterally Neck no JVD Chest inspection of chest normal Resp normal respiratory effort Auscultation: crackles right base Cardio regular rate, regular rhythm, S1 normal heart sound, S2 normal heart sound, no murmurs, no rub and no gallops GI soft to palpation Extremity no pedal edema Skin no rashes or lesions noted Neuro Neuro Narrative: Patient is alert but confused. She does not appear to be paranoid at this point in time. She did allow me to examine her without issue. Psych Psych Narrative: The patient distributed significant paranoid tendencies yesterday when refusing the echocardiogram. Assessment & Plan Assessment/Plan (1) Elevated troponin: PLAN: The patient continues to deny any ischemic sounding chest discomfort. Respiratory status is stable O2 saturations are good blood pressure is well- controlled as is the heart rate. The patient refused the limited echocardiogram to reevaluate her LV function. This will be attempted again in the next 24 hours. (2) (HFpEF) heart failure with preserved ejection fraction: QUALIFIERS: Heart failure chronicity: chronic Qualified Code(s): I50.32 - Chronic diastolic (congestive) heart failure PLAN: The patient does not have any signs or symptoms of overt congestive heart failure. Her echocardiogram done earlier this week June 30 showed an EF of 65% and was unchanged from a previous echo with no regional wall motion abnormalities. She had presented 24 hours prior to that echo with elevated high-sensitivity troponins in the 11-12,000 range (3) History of coronary artery bypass graft x 3: PLAN: Patient's status post bypass graft surgery in [address] [facility] with a SY to the LAD vein graft to the OM branch of the circumflex and the distal right. (4) Presence of stent in coronary artery: PLAN: The patient had stenting here at [facility] by Dr. Wilcox with stenting of the OM branch of the circumflex and right coronary artery after both grafts saphenous vein graft failed. This was in 2021. She subsequently had in-stent restenosis in the right coronary which was treated with balloon angioplasty. (5) Altered mental status: QUALIFIERS: Altered mental status type: disorientation Qualified Code(s): R41.0 - Disorientation, unspecified PLAN: The patient was profoundly paranoid becoming aggressive and refusing echocardiogram yesterday. Further evaluation and treatment be deferred to the primary service. (6) Right bundle branch block: PLAN: In the emergency department on admission July 03 at approximately 1715 hrs. the patient had an EKG that revealed a right bundle branch block which subsequently resolved and what appeared to be an accelerated junctional rhythm there were some P waves noted throughout the strip. This spontaneously resolved and has not recurred. The patient did have an episode of supraventricular tachycardia about 10 beats last evening. There were no symptoms and no chest pain documented at the time. PLAN: Plan 1. Will attempt to obtain limited echo to reevaluate LV function on 07/06/2023. 2. Will continue current medical regimen. 3. At this time would not pursue further invasive evaluation given the unpredictable paranoid reactions. Should the patient become hemodynamically unstable with recurrent chest symptoms and EKG changes then would have to reconsider invasive emergent evaluation. Currently the patient is asymptomatic with no objective evidence of ongoing ischemia. 4. Dr. Wilcox will be covering the service starting 07/06/2023 Charges/Coding Visit Charges Inpatient E&M: 96076 Subs Hosp L3
[2023-07-05 08:55] VITALS: BP 136/57; PULSE 88; RESP 18; TEMP 37.6; O2SAT 92
[2023-07-05] MEDS: Magnesium Chloride 64 MG Delay Rel.Tablet 128 MG PO (09:01)
[2023-07-05] MEDS: guaiFENesin 1,200 MG Tablet 1200 MG PO (09:01)
[2023-07-05] MEDS: Pantoprazole Sodium 40 MG Tablet PO (09:01)
[2023-07-05] MEDS: Lisinopril 20 MG Tablet PO (09:02)
[2023-07-05] MEDS: Isosorbide Mononitrate 30 MG Tablet PO (09:02)
[2023-07-05] MEDS: Aspirin E.C. 81 MG Tablet PO (09:02)
[2023-07-05] MEDS: Atenolol 50 MG Tablet PO (09:03)
[2023-07-05] MEDS: Spironolactone 25 MG Tablet PO (09:04)
[2023-07-05] MEDS: Citalopram 40 MG TABLET PO (09:05)
[2023-07-05] MEDS: Tolterodine Tartrate 2 MG CAP.SA PO (09:05)
[2023-07-05] MEDS: buPROPion (SR) 150 MG Tablet.SA PO (09:05)
[2023-07-05] MEDS: Enoxaparin 60 MG/0.6 ML Syringe SC (09:06)
[2023-07-05] MEDS: Gabapentin 100 MG Capsule PO (09:18)
[2023-07-05] MEDS: Potassium Chloride Oral Tablet 20 MEQ 40 MEQ PO (09:18)
--- NOTE | 2023-07-05 12:45 | PCM.PN.HOSP ---
Reason for Visit Reason for Visit: Chest pain/weakness/confusion Subjective Subjective Patient was wandering around hospital walking and other peoples rooms last evening. Also pocketing pills and refusing to take medications intermittently. They were finally able to get her medications and her and after that she did much better and was able to sleep through the night. Has no complaints this morning denies shortness of breath and chest pain currently. Objective Data Objective Data Vital Signs: Vital Signs Temp Pulse Resp BP Pulse Ox O2 Del Method O2 Flow Rate 99.7 F H 88 18 136/57 H 92 Room Air 2 07/05/23 08:55 07/05/23 08:55 07/05/23 08:55 07/05/23 08:55 07/05/23 08:55 07/05/23 09:00 07/04/23 11:09 Oxygen Flow Rate (L/min) 2 Oxygen Delivery Method Room Air Weight: 51 kg Body Mass Index (BMI) 21.9 Intake & Output: Intake and Output for Last 24 Hours 07/03/23 07/04/23 07/05/23 23:59 23:59 23:59 Intake Total 0 / 0 780 / 830 50 / 50 Output Total 0 / 0 0 / 0 Balance 0 / 0 780 / 830 50 / 50 Lab / Micro Data 07/05/23 05:10 07/05/23 05:10 Labs: Laboratory Results - last 24 hr 07/05/23 05:10: WBC 8.2, RBC 4.28, Hgb 11.3 L, Hct 37.0, MCV 86.4, MCH 26.4 L, MCHC 30.5 L, RDW Std Deviation 58.9 H, RDW Coeff of John 18.7 H, Plt Count 266, MPV 10.4, Sodium 137, Potassium 2.9 L, Chloride 101, Carbon Dioxide 27.0, Anion Gap 9, BUN 19 H, Creatinine 0.88, Estim Creat Clear Calc 39.07, Est GFR (MDRD) Af Amer 80, Est GFR (MDRD) Non-Af 66, BUN/Creatinine Ratio 21.5 H, Glucose 151 H, Calcium 8.6 Radiography Diagnostic Testing: Radiology Impression Chest X-Ray 07/04/23 07:40 IMPRESSION: Degenerative changes, as described above. No demonstrated acute cardiopulmonary process. Electronically Signed: Kirk Mccarty MD at 11:14 EDT Reading Location ID and State: [address] [address] , Service support , Rhythm Strip Rhythm Strip: Sinus Rhythm Rate: 75 Ectopy: - (Short run of SVT last evening of 10 beats.) Physical Exam Const alert, oriented x3, no apparent distress and average body habitus; Negative for healthy appearing or well nourished Constitutional Narrative: Older, white female, sitting up in bed, appears older than stated age, does not appear toxic, nursing at bedside, appears malnourished on exam, we did observe her pocketing pills and spitting them back out HEENT normocephalic, head/scalp atraumatic and moist oral mucous membranes HEENT Narrative: Mallampati 2, no thrush, dentition is poor Resp normal respiratory effort, no retractions, no use of accessory muscles and clear to auscultation bilaterally Resp Narrative: Diminished but clear Auscultation: Negative for rales, rhonchi or wheezes Cardio regular rate, regular rhythm, S1 normal heart sound, S2 normal heart sound, no murmurs, no rub, no gallops and no clicks GI normal to inspection, nondistended, normoactive bowel sounds, soft to palpation and non-tender Extremity no clubbing, cyanosis or edema Extremity Narrative: Decreased lean muscle mass, pedal pulses are 1+ bilaterally Neuro oriented x3, moves all extremities and no focal motor deficits Speech: speech normal Psych affect normal Psych Narrative: Affect is slightly flat, still seems paranoid but interacts well with me, oriented x 3, talking to people who are outside her window Assessment & Plan Assessment/Plan (1) Elevated troponin: PLAN: Plan Chest pain/troponin elevation -Recent NSTEMI and troponin is slightly fluctuating however I would not say that she has a new NSTEMI at this time -It was felt that her previous troponin elevation was likely related to small vessel disease and patient was asymptomatic at discharge however she reported that she has been having chest pain since discharge -Blood pressure was markedly elevated on presentation I suspect she may not be taking her home medications due to her paranoia chest pain is gone and patient did take her medications reluctantly for is here today -Limited echo ordered--> pending as patient refused yesterday -Continue Plavix -Continue aspirin -Continue statin -Heparin drip off -At recent admission patient deferred cardiac catheterization and preferred medical management -Echocardiogram at that time showed an EF of 60% with stage II diastolic dysfunction, severe left atrial enlargement, trivial mitral valve insufficiency, mild tricuspid valve insufficiency and trivial aortic valve insufficiency -This echo was unchanged from previous -Cardiology is following and plan is for likely no invasive intervention and to repeat a limited echo which we anticipate to be stable -Highly suspect her issues are related to noncompliance as she has been noncompliant with taking her medications here and is quite paranoid Acute hypoxia secondary to acute heart failure with preserved ejection fraction (diastolic dysfunction) -patient is not oxygen dependent at baseline -Hypoxia has now resolved and patient sats are between 92 and 98% on room air -Continue incentive spirometry -Continue incentive spirometry -Will need home O2 eval prior to discharge -Continue I's and O's -Continue daily weights -Start furosemide 20 mg daily -Continue fluid restrict diet to 1750 daily -Sodium restrict diet to 2 g daily once p.o. diet is initiated Hypokalemia -Will give a total of 80 mEq p.o. today -Recheck in a.m. -If persistently low check magnesium level Toxic/metabolic encephalopathy -Drug screen positive for MDMA however that is likely cross reaction with Wellbutrin -CT scan of the brain unremarkable -Continue to monitor and hopefully improves his medical condition improves Generalized weakness and debility secondary to chronic medical conditions and advancing age -PT/OT following and patient likely will be able to go home with home health -Case management/social work consult to assist with discharge planning -Will discuss further with case management either tomorrow or Thursday to make referral Severe malnutrition -Dietitian is following -Supplements added CAD/HTN/HPL/carotid artery stenosis -History of CABG 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 2007 -PCI with [facility] 10/10/2021 -Continue Plavix -Continue aspirin -Continue home lisinopril -Continue isosorbide mononitrate -Continue home with atenolol -Continue Aldactone -Continue home atorvastatin History of stroke/TIA -Continue statin -Continue Plavix -Continue aspirin Hypothyroidism -Continue Synthroid COPD -Continue as needed aerosols -No acute exacerbation -If surgical intervention proceeded with would recommend scheduled DuoNebs for the short-term History of rectal cancer -Hemoglobin is stable -No acute issues -Continue outpatient follow-up -Hemoglobin stable on aspirin and Plavix Chronic anemia -Hemoglobin stable at 11.5 next-monitor GERD -Continue Protonix 40 mg twice daily Depression/anxiety -Continue home lorazepam 0.5 mg 3 times daily -Continue bupropion -Continue citalopram -Continue Seroquel 50 mg at at bedtime -Concerned that patient may be slightly decompensated from a psychiatric standpoint as she is seems to be having significant paranoia which sounds like it may be compromising her functional status at home -Follows at [facility] with psychiatry -Crisis to evaluate the patient today Chronic pain -Continue home pain regimen Urinary incontinence -Continue oxybutynin Tobacco abuse -Recommend cessation -currently smoking approximately 1-1/2 packs/day -Nicotine patch will be made available if patient needs DVT prophylaxis -Will start subcu Lovenox CODE STATUS -DNR CCA with no intubation Charges/Coding Visit Charges Inpatient E&M: 85973 Subs Hosp L2
[2023-07-05 14:12] VITALS: BP 104/48; PULSE 89; RESP 16; TEMP 36.2; O2SAT 92
[2023-07-05] MEDS: Furosemide 20 MG Tablet PO (14:23)
[2023-07-05] MEDS: Potassium Chloride Oral Soln 20 MEQ/15 ML UDC 40 MEQ PO (17:35)
[2023-07-05 19:45] VITALS: O2SAT 93
[2023-07-05 20:00] VITALS: BP 110/42; PULSE 82; RESP 16; TEMP 36.4; O2SAT 95
[2023-07-05] MEDS: MELATONIN 10 MG TABLET PO (20:19)
[2023-07-05] MEDS: QUEtiapine 25 MG Tablet 50 MG PO (20:21)
[2023-07-05] MEDS: HYDROmorphone 0.5 MG/0.5 ML SYRINGE IV (21:13)
[2023-07-05] MEDS: 0.9% Saline Lock 10 ML Syringe IV (21:13)
[2023-07-06 02:00] VITALS: BP 125/50; PULSE 66; RESP 14; TEMP 36.2; O2SAT 93
[2023-07-06] MEDS: LORazepam 0.5 MG Tablet PO ×3 (06:05→20:12)
[2023-07-06] MEDS: Levothyroxine 75 MCG Tablet PO (06:05)
[2023-07-06 06:19] LABS: Hematocrit 35.4 % (37-47); Hemoglobin 10.7 g/dL (12.0-15.0); Mean Corp Hgb Conc 30.2 g/dL (32-36); Mean Corpuscular Hgb 26.4 pg (27.0-32.0); Mean Corpuscular Volume 87.2 fL (81-99); Mean Platelet Vol. 9.9 fl (6.2-12.0); Platelet Count 235 K/mm3 (150-450); RBC Distribution Width SD 60.5 fl (35.1-43.9); Red Blood Count 4.06 M/mm3 (4.2-5.4); White Blood Count 8.2 K/mm3 (4.4-11.0)
[2023-07-06 06:36] LABS: Anion Gap 7 (5-15); BUN 19 mg/dL (7-18); BUN/Creat Ratio 23.1 RATIO (10-20); Calcium,Total 8.8 mg/dL (8.5-10.1); Chloride 105 mmol/L (98-107); Creatinine, Serum 0.82 mg/dL (0.55-1.02); EST Glomerular Filtration Rate 72 mL/min (>60); Est Glom Filt Rate - Afr Amer 87 mL/min (>60); Estimated Creatinine Clearance 41.92 ml/min; Glucose 91 mg/dL (74-106); Magnesium 1.8 mg/dL (1.6-2.6); Potassium 4.1 mmol/L (3.5-5.1); Sodium Level 138 mmol/L (136-145)
[2023-07-06 07:20] VITALS: O2SAT 94
[2023-07-06 08:00] VITALS: BP 118/57; PULSE 78; RESP 16; TEMP 36.2; O2SAT 96
[2023-07-06] MEDS: Potassium Chloride Oral Soln 20 MEQ/15 ML UDC 40 MEQ PO (09:12)
[2023-07-06] MEDS: Spironolactone 25 MG Tablet PO (09:13)
[2023-07-06] MEDS: Aspirin E.C. 81 MG Tablet PO (09:13)
[2023-07-06] MEDS: Magnesium Chloride 64 MG Delay Rel.Tablet 128 MG PO (09:13)
[2023-07-06] MEDS: Isosorbide Mononitrate 30 MG Tablet PO (09:15)
[2023-07-06] MEDS: Lisinopril 20 MG Tablet PO ×2 (09:16→20:12)
[2023-07-06] MEDS: Clopidogrel Bisulfate 75 MG Tablet PO (09:17)
[2023-07-06] MEDS: Pantoprazole Sodium 40 MG Tablet PO ×2 (09:17→20:12)
[2023-07-06] MEDS: Atenolol 50 MG Tablet PO (09:18)
[2023-07-06] MEDS: guaiFENesin 1,200 MG Tablet 1200 MG PO (09:20)
[2023-07-06] MEDS: buPROPion (SR) 150 MG Tablet.SA PO (09:20)
[2023-07-06] MEDS: Tolterodine Tartrate 2 MG CAP.SA PO (09:20)
[2023-07-06] MEDS: Citalopram 40 MG TABLET PO (09:20)
[2023-07-06] MEDS: Gabapentin 100 MG Capsule PO (09:26)
[2023-07-06] MEDS: Enoxaparin 40 MG/0.4 ML Syringe SC (09:27)
[2023-07-06] MEDS: Furosemide 20 MG Tablet PO (09:28)
[2023-07-06] MEDS: Acetaminophen 500 MG Tablet 1000 MG PO ×2 (10:22→16:25)
--- NOTE | 2023-07-06 11:44 | PN.HOSP_ITS ---
Reason for Visit Reason for Visit: Chest pain/weakness/confusion Subjective Subjective No issues overnight. Patient has been taking her medication more consistently. Was evaluated by crisis and they recommend outpatient follow-up with psychiatry. She is having some issues with therapy but refusing to be placed. Currently is amenable to home health. Will need to see how she does today to make our best recommendation for discharge planning. No complaints today. Awaiting echocardiogram. Complaining that her coffee is cold and she would like that in some pancakes. Objective Data Objective Data Vital Signs: Vital Signs Temp Pulse Resp BP Pulse Ox O2 Del Method O2 Flow Rate 97.2 F L 78 16 118/57 L 96 Room Air 2 07/06/23 08:00 07/06/23 08:00 07/06/23 08:00 07/06/23 08:00 07/06/23 08:00 07/06/23 08:00 07/04/23 11:09 Oxygen Flow Rate (L/min) 2 Oxygen Delivery Method Room Air Weight: 51 kg Body Mass Index (BMI) 21.9 Intake & Output: Intake and Output for Last 24 Hours 07/04/23 07/05/23 07/06/23 23:59 23:59 23:59 Intake Total 780 / 830 50 / 170 120 / 120 Output Total 0 / 0 Balance 780 / 830 50 / 170 120 / 120 Lab / Micro Data 07/06/23 05:35 07/06/23 05:35 Labs: Laboratory Results - last 24 hr 07/06/23 05:35: WBC 8.2, RBC 4.06 L, Hgb 10.7 L, Hct 35.4 L, MCV 87.2, MCH 26.4 L, MCHC 30.2 L, RDW Std Deviation 60.5 H, RDW Coeff of John 19.0 H, Plt Count 235, MPV 9.9, Sodium 138, Potassium 4.1, Chloride 105, Carbon Dioxide 26.0, Anion Gap 7, BUN 19 H, Creatinine 0.82, Estim Creat Clear Calc 41.92, Est GFR (MDRD) Af Amer 87, Est GFR (MDRD) Non-Af 72, BUN/Creatinine Ratio 23.1 H, Glucose 91, Calcium 8.8, Magnesium 1.8 Rhythm Strip Rhythm Strip: Sinus Rhythm Rate: 75 Ectopy: - (Short run of SVT last evening of 10 beats.) Physical Exam Const alert, oriented x3, no apparent distress and average body habitus; Negative for healthy appearing or well nourished Constitutional Narrative: Older, white female, sitting up in a chair at the bedside watching television and eating breakfast General Appearance: cooperative HEENT normocephalic, head/scalp atraumatic, hearing grossly normal bilaterally and moist oral mucous membranes HEENT Narrative: Dentition is poor, Mallampati is 2, no thrush Resp normal respiratory effort, no retractions, no use of accessory muscles and clear to auscultation bilaterally Resp Narrative: Diminished but clear Auscultation: Negative for rales, rhonchi or wheezes Cardio regular rate, regular rhythm, S1 normal heart sound, S2 normal heart sound, no murmurs, no rub, no gallops and no clicks GI normal to inspection, nondistended, normoactive bowel sounds, soft to palpation and non-tender Extremity no clubbing, cyanosis or edema Extremity Narrative: Decreased lean muscle mass Neuro oriented x3, moves all extremities and no focal motor deficits Speech: speech normal Psych affect normal Psych Narrative: Interacts appropriately today, Assessment & Plan Assessment/Plan (1) Elevated troponin: PLAN: Plan Chest pain/troponin elevation -Recent NSTEMI and troponin is slightly fluctuating however I would not say that she has a new NSTEMI at this time -It was felt that her previous troponin elevation was likely related to small vessel disease and patient was asymptomatic at discharge however she reported that she has been having chest pain since discharge -Blood pressure was markedly elevated on presentation I suspect she may not be taking her home medications due to her paranoia chest pain is gone and patient did take her medications reluctantly for is here today -Limited echo ordered--> done today and pending read -Continue Plavix -Continue aspirin -Continue statin -Heparin drip off -At recent admission patient deferred cardiac catheterization and preferred medical management -Echocardiogram at that time showed an EF of 60% with stage II diastolic dysfunction, severe left atrial enlargement, trivial mitral valve insufficiency, mild tricuspid valve insufficiency and trivial aortic valve insufficiency -This echo was unchanged from previous -Cardiology is following and plan is for likely no invasive intervention and to repeat a limited echo which we anticipate to be stable -Highly suspect this is related to noncompliance improved compliance you are currently and everything has been stable Acute hypoxia secondary to acute heart failure with preserved ejection fraction (diastolic dysfunction) -Now on room air at 96% at rest -Will need home O2 eval prior to discharge -Continue incentive spirometry -Continue I's and O's -Continue daily weights -Continue Lasix 20 mg daily -Continue fluid restrict diet to 1750 daily -Sodium restrict diet to 2 g daily once p.o. diet is initiated Hypokalemia -Resolved Toxic/metabolic encephalopathy -Resolved Generalized weakness and debility secondary to chronic medical conditions and advancing age -PT/OT following and recommending ongoing therapy however patient declining to go anywhere and will likely need home health at discharge -Case management/social work consult to assist with discharge planning -Will talk to case management tomorrow and start home health as long as therapy notes from today seem stable Severe malnutrition -Dietitian is following -Supplements added CAD/HTN/HPL/carotid artery stenosis -History of CABG x3 in 2007 -PCI with [facility] 10/10/2021 -Continue Plavix -Continue aspirin -Continue home lisinopril -Continue isosorbide mononitrate -Continue home with atenolol -Continue Aldactone -Continue home atorvastatin History of stroke/TIA -Continue statin -Continue Plavix -Continue aspirin Hypothyroidism -Continue Synthroid COPD -Continue as needed aerosols -No acute exacerbation -If surgical intervention proceeded with would recommend scheduled DuoNebs for the short-term History of rectal cancer -Hemoglobin is stable -No acute issues -Continue outpatient follow-up -Hemoglobin stable on aspirin and Plavix Chronic anemia -Hemoglobin remains relatively stable GERD -Continue Protonix 40 mg twice daily Depression/anxiety -Continue home lorazepam 0.5 mg 3 times daily -Continue bupropion -Continue citalopram -Continue Seroquel 50 mg at at bedtime -Concerned that patient may be slightly decompensated from a psychiatric standpoint as she is seems to be having significant paranoia which sounds like it may be compromising her functional status at home -Follows at [facility] with psychiatry -Crisis recommended ongoing outpatient follow-up Chronic pain -Continue home pain regimen Urinary incontinence -Continue oxybutynin Tobacco abuse -Recommend cessation -currently smoking approximately 1-1/2 packs/day -Nicotine patch will be made available if patient needs DVT prophylaxis -Continue subcu Lovenox CODE STATUS -DNR CCA with no intubation Disposition: -Probable discharge tomorrow. Patient refusing placement and would like to go home but is amenable to home health. Will discuss with case management tomorrow. Charges/Coding Visit Charges Inpatient E&M: 72116 Subs Hosp L2
[2023-07-06 14:00] VITALS: BP 127/95; PULSE 67; RESP 14; TEMP 36.2; O2SAT 95
--- NOTE | 2023-07-06 14:36 | PN.CARD_ITS ---
Subjective Subjective Pt. has left lateral chest pain that is worse with moving certain ways. It feels like cramps according to the patient. [facility]. No anginal symptoms. Echo showed no RWMA Objective Data Vital Signs: Vital Signs Temp Pulse Resp BP Pulse Ox O2 Del Method O2 Flow Rate 97.2 F L 67 14 127/95 H 95 Room Air 2 07/06/23 14:00 07/06/23 14:00 07/06/23 14:00 07/06/23 14:00 07/06/23 14:00 07/06/23 14:00 07/04/23 11:09 Oxygen Flow Rate (L/min) 2 Oxygen Delivery Method Room Air Weight: 112 lb 6.972 oz Body Mass Index (BMI) 21.9 Intake & Output: Intake and Output for Last 24 Hours 07/04/23 07/05/23 07/06/23 23:59 23:59 23:59 Intake Total 780 / 830 50 / 170 120 / 120 Output Total 0 / 0 Balance 780 / 830 50 / 170 120 / 120 Lab / Micro Data 07/06/23 05:35 07/06/23 05:35 Labs: Laboratory Results - last 24 hr 07/06/23 05:35: WBC 8.2, RBC 4.06 L, Hgb 10.7 L, Hct 35.4 L, MCV 87.2, MCH 26.4 L, MCHC 30.2 L, RDW Std Deviation 60.5 H, RDW Coeff of John 19.0 H, Plt Count 235, MPV 9.9, Sodium 138, Potassium 4.1, Chloride 105, Carbon Dioxide 26.0, Anion Gap 7, BUN 19 H, Creatinine 0.82, Estim Creat Clear Calc 41.92, Est GFR (MDRD) Af Amer 87, Est GFR (MDRD) Non-Af 72, BUN/Creatinine Ratio 23.1 H, Glucose 91, Calcium 8.8, Magnesium 1.8 Rhythm Strip Rhythm Strip: Sinus Rhythm Rate: 75 Ectopy: - (Short run of SVT last evening of 10 beats.) Cardiology Labs/Tests 07/06/23 05:35: WBC 8.2, RBC 4.06 L, Hgb 10.7 L, Hct 35.4 L, MCV 87.2, MCH 26.4 L, MCHC 30.2 L, Plt Count 235, MPV 9.9, Sodium 138, Potassium 4.1, Chloride 105, Carbon Dioxide 26.0, Anion Gap 7, BUN 19 H, Creatinine 0.82, Est GFR (MDRD) Af Amer 87, Est GFR (MDRD) Non-Af 72, BUN/Creatinine Ratio 23.1 H, Glucose 91, Calcium 8.8, Magnesium 1.8 Rhythm: EKG: ECHO: Stress Test: Cardiac Cath: PCI: CT Surgery: Holter monitor: EPS: PPM: CXR: Chest CT Scan: Radiography Diagnostic Testing: Radiology Impression Echocardiogram 07/04/23 09:26 Interpretation Summary The estimated ejection fraction is 65 %. Stage 2 diastolic dysfunction. The left atrium is severely enlarged. Ordering Physician: Ja Kumar Performed By: Jazzmine Holloway, [facility] Physical Exam Const alert HEENT normocephalic Eyes no scleral icterus Resp normal respiratory effort Assessment & Plan Assessment/Plan (1) Elevated troponin: PLAN: The patient continues to deny any ischemic sounding chest discomfort. Continue medical treatment. Will sign off. (2) (HFpEF) heart failure with preserved ejection fraction: PLAN: The patient does not have any signs or symptoms of overt congestive heart failure. (3) History of coronary artery bypass graft x 3: PLAN: Patient's status post bypass graft surgery in 2007 at the [facility] with a SY to the LAD vein graft to the OM branch of the circumflex and the distal right. (4) Presence of stent in coronary artery: PLAN: The patient had stenting here at [facility] with stenting of the OM branch of the circumflex and right coronary artery after both grafts saphenous vein graft failed. This was in 2021. She subsequently had in-stent restenosis in the right coronary which was treated with balloon angioplasty. (5) Altered mental status: PLAN: The patient was profoundly paranoid becoming aggressive and refusing echocardiogram earlier this admission. Further evaluation and treatment be deferred to the primary service. (6) Right bundle branch block:
[2023-07-06 20:00] VITALS: BP 133/64; PULSE 66; RESP 18; TEMP 36.6; O2SAT 97
[2023-07-06] MEDS: Atorvastatin Calcium 40 MG Tablet PO (20:12)
[2023-07-06] MEDS: MELATONIN 10 MG TABLET PO (20:12)
[2023-07-06] MEDS: QUEtiapine 25 MG Tablet 50 MG PO (20:12)
[2023-07-07 02:00] VITALS: BP 129/56; PULSE 57; RESP 16; TEMP 36.7; O2SAT 92
[2023-07-07] MEDS: Levothyroxine 75 MCG Tablet PO (05:25)
[2023-07-07] MEDS: LORazepam 0.5 MG Tablet PO ×2 (05:25→15:10)
[2023-07-07 08:00] VITALS: BP 134/62; PULSE 67; RESP 16; TEMP 36.6; O2SAT 93
[2023-07-07] MEDS: Pantoprazole Sodium 40 MG Tablet PO (10:19)
[2023-07-07] MEDS: Gabapentin 100 MG Capsule PO (10:19)
[2023-07-07] MEDS: Enoxaparin 40 MG/0.4 ML Syringe SC (10:19)
[2023-07-07] MEDS: Lisinopril 20 MG Tablet PO (10:19)
[2023-07-07] MEDS: Furosemide 20 MG Tablet PO (10:19)
[2023-07-07] MEDS: Tolterodine Tartrate 2 MG CAP.SA PO (10:19)
[2023-07-07] MEDS: Isosorbide Mononitrate 30 MG Tablet PO (10:19)
[2023-07-07] MEDS: Atenolol 50 MG Tablet PO (10:20)
[2023-07-07] MEDS: guaiFENesin 1,200 MG Tablet 1200 MG PO (10:20)
[2023-07-07] MEDS: Magnesium Chloride 64 MG Delay Rel.Tablet 128 MG PO (10:20)
[2023-07-07] MEDS: Aspirin E.C. 81 MG Tablet PO (10:20)
[2023-07-07] MEDS: Citalopram 40 MG TABLET PO (10:21)
[2023-07-07] MEDS: buPROPion (SR) 150 MG Tablet.SA PO (10:21)
[2023-07-07] MEDS: Spironolactone 25 MG Tablet PO (10:21)
--- NOTE | 2023-07-07 11:54 | CASEMGMT ---
JOHN BYRNES received call from [facility], they are able to accept patient with planned start of care for Thursday. JOHN BYRNES called daughter Santa to confirm discharge plans. Daughter agreeable to [facility] and updated regarding possible discharge today. Santa denied further needs or concerns at discharge. Santa had no further questions. Hospitalist and discharge plan updated.
--- NOTE | 2023-07-07 12:31 | CASEMGMT ---
Social Work Both living will and healthcare POA are scanned into [facility], Shyanne Kim is listed as pt's healthcare POA. TIEN Post
--- NOTE | 2023-07-07 12:54 | DS.PCM_ITS ---
Providers Date of Admission: 07/03/23 Primary Care Physician: Dr. Zully Rojas MD Consultations 07/03/23 22:54 Consult: Cardiology Routine Consulting Provider: Jerome Maciel Reason for Consult: Non-STEMI EMERGENT Consult: No MD Notified: Yes Date Notified: 07/04/23 Time Notified: 05:57 Method of Notification: Text Method of Consult:: In-Person Reason For Visit: NON-ST ELEVATION [place] Diagnosis Discharge Diagnosis (1) Elevated troponin: Status: Acute Code(s): R79.89 - Other specified abnormal findings of blood chemistry (2) (HFpEF) heart failure with preserved ejection fraction: Status: Acute Code(s): I50.30 - Unspecified diastolic (congestive) heart failure Qualifiers: Heart failure chronicity: chronic Qualified Code(s): I50.32 - Chronic diastolic (congestive) heart failure (3) History of coronary artery bypass graft x 3: Status: Acute Code(s): Z95.1 - Presence of aortocoronary bypass graft (4) Presence of stent in coronary artery: Status: Acute Code(s): Z95.5 - Presence of coronary angioplasty implant and graft (5) Altered mental status: Status: Resolved Code(s): R41.82 - Altered mental status, unspecified Qualifiers: Altered mental status type: disorientation Qualified Code(s): R41.0 - Disorientation, unspecified (6) Right bundle branch block: Status: Acute Code(s): I45.10 - Unspecified right bundle-branch block Medications at Discharge Home Medications levothyroxine 75 mcg tablet 75 mcg PO DAILY THYROID 09/06/17 citalopram 40 mg tablet 40 mg PO DAILY DEPRESSION 12/18/17 atenolol 50 mg tablet 50 mg PO DAILY BLOOD PRESSURE 01/05/18 atorvastatin 40 mg tablet 40 mg PO QHS CHOLESTEROL 01/05/18 albuterol sulfate 0.63 mg/3 mL solution for nebulization 0.63 mg inhalation Q4H PRN Congestion 07/14/18 pantoprazole 40 mg tablet,delayed release 40 mg PO BID GERD 01/16/19 oxybutynin chloride 5 mg tablet,extended release 24 hr 5 mg PO DAILY BLADDER 10/08/21 clopidogrel 75 mg tablet 75 mg PO QODAY BLOOD THINNER 07/12/22 melatonin 10 mg sublingual tablet 10 mg PO QHS INSOMNIA #0 tabs 02/12/23 acetaminophen 500 mg tablet 1,000 mg PO Q6H PRN Pain Score 1-10 02/16/23 furosemide 20 mg tablet (Lasix) 20 mg PO DAILY PRN DIURETIC #30 tabs 02/20/23 lorazepam 0.5 mg tablet 0.5 mg PO TID 30 days #90 tabs 02/20/23 bupropion HCl 150 mg tablet,12 hr sustained-release 150 mg PO DAILY mental health 06/30/23 gabapentin 100 mg capsule 100 mg PO DAILY nerve pain 06/30/23 meloxicam 15 mg tablet 15 mg PO DAILY pain 06/30/23 quetiapine 50 mg tablet 50 mg PO QHS mental health 06/30/23 aspirin 81 mg tablet,delayed release 81 mg PO BREAKFAST #30 tabs 07/02/23 guaifenesin 1,200 mg tablet, extended release 12 hr (Mucus Relief ER) 1,200 mg PO BID #20 tabs 07/02/23 isosorbide mononitrate 30 mg tablet,extended release 24 hr 30 mg PO DAILY #90 tabs 07/02/23 lisinopril 20 mg tablet 20 mg PO BID BLOOD PRESSURE #60 tabs 07/02/23 spironolactone 25 mg tablet 25 mg PO DAILY #30 tabs 07/02/23 Hospital Course Procedures 2-D Echocardiogram, EKG and - (Chest x-ray x 2/CT brain) Summary of Care Provided Minutes Spent on Discharge: 38 Hospital Course: Mrs. Kim is a 78-year-old white female with a significant cardiac history who presented to the emergency department at [facility] on 07/02/2024 with worsening chest pain/increasing generalized weakness/and confusion. She had a recent admission here from 06/30/2023 through 07/02/2023 at which time she came in for chest pain and was found a markedly elevated cardiac enzymes. Cardiology was consulted and echocardiogram was done. Echocardiogram was unchanged from previous and cardiology, after discussing with her, felt medical management would be adequate as her chest pain had resolved per her report and there were no changes on her echocardiogram. Upon presentation, the patient reported that she had chest pain from the time of discharge up until the time of representation to the emergency department and reported that it was substernal in nature and pressure-like that radiated into her upper abdomen. She had no exacerbating or relieving factors. She reported that her chest pain was similar to her previous symptoms when she had previous [place]. She also is becoming increasingly weak and having decreased energy with difficulty caring for herself at home. She has 2 daughters that live locally and are actively involved in her care and are frustrated with her lack of progress despite recent admission. She denies any fevers, chills, nausea, vomiting, diaphoresis or palpitations and had transient lethargy in the emergency department after being on Haldol and Versed for CT of the brain. Vital signs on presentation showed temperature of 98.1, heart rate 61, respiratory was 20, blood pressure initially was 172/98 with a repeat of 149/72 and pulse ox was 94% on room air. Her CBC showed mild stable chronic anemia with a hemoglobin of 11.3 but was otherwise unremarkable. A VBG was done and showed a pH of 7.34. Chemistry panel showed mild hypokalemia potassium of 3.3, normal renal function, glucose of 169, normal transaminases with an initial troponin of 4295. Her troponin most recently obtained on 07/01/2023 was 12,194. Troponin was repeated and was up to 4460 so she was treated as a new NSTEMI. A lipase was obtained due to her abdominal pain was found to be 17. Chest x-ray was unremarkable. CT of the brain demonstrated moderate atrophy and advanced periventricular white matter ischemic changes as well as an old lacunar infarct in the right basal ganglia and an old infarct in the distribution of the right posterior cerebral artery with no mass effect or bleeding. EKG showed sinus rhythm with a heart rate of 62, normal intervals and no ST-T wave changes concerning for acute ischemia. She was admitted to the PCU and treated for NSTEMI with consultation to cardiology for assistance with her chest pain and cardiac enzyme elevation as well as physical and Occupational Therapy for assistance with discharge planning purposes. She was seen by cardiology and a limited echocardiogram was performed. Limited echo shows no change from previous echocardiogram done on 07/01/2023. EF and wall motion have been unchanged. Given this, medical management was continued. She was evaluated by physical and Occupational Therapy and they did recommend ongoing therapy services. We offered placement at skilled facility however the patient refused this but was amenable to home health care. She did show signs of intermittent paranoia and hallucinations during her hospitalization. She also was pocketing her pills and spitting them out and I suspect this may be a problem at home since we physically did observe her not taking her medications and this probably led to her blood pressure elevations on presentation. Cardiology feels that this is probably related to the small bump in her troponin is she is suspected to have persistent small vessel disease. We did have crisis evaluate her to see if they thought she would be amenable to a geriatric psychiatric admission due to her paranoia and hallucinations. They did evaluate the patient and felt she was stable for ongoing outpatient care. We have recommended that she follow-up with her psychiatrist sooner than later and hopefully she will be able to an appointment in the next 2 weeks. We also made an appointment to follow-up with cardiology in the next 2 to 4 weeks and she has an appointment with her primary care physician tomorrow. No medication changes were made during her hospital course. Home health care was arranged for her at discharge and will start seeing her on Thursday. She was strongly advised to stop smoking. Discharge diagnoses: Chest pain-resolved Troponin elevation secondary to small vessel disease-stabilized Acute hypoxia secondary to heart failure with preserved ejection fraction- resolved Diastolic dysfunction-chronic Hypokalemia-resolved Toxic/metabolic encephalopathy-resolved Generalized weakness and debility secondary to chronic medical additions and advancing age-home health care Severe malnutrition CAD Essential HTN HPL Carotid artery stenosis History of stroke Hypothyroidism COPD History of rectal cancer Chronic anemia GERD Depression anxiety Chronic pain Urinary incontinence Tobacco abuse Physical Exam Const alert, oriented x3, no apparent distress, average body habitus and no limitations; Negative for healthy appearing or well nourished Constitutional Narrative: Older, white female, sitting up in bed, watching television, appears comfortable, nursing at bedside, nontoxic General Appearance: cooperative, comfortable, well kempt and well developed Orientation / Consciousness: awake, oriented to person, oriented to place and oriented to time Exam Limitations: no limitations HEENT normocephalic, head/scalp atraumatic, hearing grossly normal bilaterally and moist oral mucous membranes HEENT Narrative: Mallampati 2, dentition is poor, no thrush Eyes PERRL, EOMs intact bilaterally and conjunctivae normal Eyes Narrative: No scleral icterus Neck no lymphadenopathy and supple Neck Narrative: Trachea midline, no thyroid enlargement Resp normal respiratory effort, no retractions, no use of accessory muscles and clear to auscultation bilaterally Resp Narrative: Diminished but clear Auscultation: Negative for rales, rhonchi or wheezes Cardio regular rate, regular rhythm, S1 normal heart sound, S2 normal heart sound, no murmurs, no rub, no gallops and no clicks GI normal to inspection, nondistended, normoactive bowel sounds, soft to palpation and non-tender Extremity no clubbing, cyanosis or edema Extremity Narrative: Decreased lean muscle mass, 1+ pedal pulses bilaterally, 2+ radial pulses bilaterally Skin no wounds, skin turgor normal, no jaundice, no petechiae and no mottling Skin Narrative: Scattered ecchymosis from various falls in various stages of healing Neuro oriented x3, CN's II-XII intact bilaterally, moves all extremities, no focal motor deficits and no sensory deficits noted Speech: speech normal Psych affect normal Psych Narrative: Interacts appropriately today, eye contact is good Weight / BMI Weight Weight: 51 kg Body Mass Index (BMI) 21.9 ABG / Lab / Microbiology Data 07/06/23 05:35 07/06/23 05:35 Radiography Diagnostic Testing: Radiology Impression Echocardiogram 07/04/23 09:26 Interpretation Summary The estimated ejection fraction is 65 %. Stage 2 diastolic dysfunction. The left atrium is severely enlarged. Ordering Physician: Ja Kumar Performed By: Jazzmine Holloway RDCS D/C Instructions Discharge Diet: Low fat / Low cholesterol Discharge Activity: Return to Normal Activity Meaningful Use Info Meaningful Use Meaningful Use Diagnoses (Choose all that apply): None applicable Ischemic Stroke Statin Dosing Therapy Reference: STATIN DOSE THERAPY REFERENCE: * Patients > 75 years receive moderate or high dose statin therapy. * Patients 75 years or YOUNGER should receive HIGH intensity statin dose unless contraindicated. You will be required to document reason for non-treatment if statin daily dose does not meet guidelines. HIGH DOSE STATIN THERAPY DAILY Atorvastatin > than or = to 40 mg Rosuvastatin > than or = to 20 mg Amlodipine + Atorvastatin > than or = to 2.5/40 mg Ezetimibe + Simvastatin 10/80 mg Simvastatin 80mg Discharge Plan Admission Admit Date/Time: 07/03/23 22:32 Primary Reason for Your Visit: Chest pain/weakness/confusion Attending Provider: Natasha Purdy Primary Care Provider: Zully Rojas Consulting Providers: Piper Guillen; Ema Everett; Amilcar Lucio; Luigi Mckenna; Gordy Pedroza; Mckinley Henderson; Josie Bonilla; Ja Kumar; Darryn Wilcox; Raudel Mcnamara; Jasen Strong [employer]; Piper Lord [employer]; Giselle Vaca; Juan Jose Instructions Additional Instructions / Restrictions: 1. Please follow-up with your psychiatrist within the next 1 to 2 weeks as able to get an appointment 2. Please follow-up with cardiology as scheduled below 3. Make sure you are taking all of your pills and swallowing them as instructed below Discharge Orders/Prescriptions Prescriptions: Continued albuterol sulfate 0.63 mg/3 mL solution for nebulization 0.63 mg INHALATION Q4H PRN (Reason: Congestion) levothyroxine 75 MCG tablet 75 mcg PO DAILY citalopram 40 mg tablet 40 mg PO DAILY atenolol 50 MG tablet 50 mg PO DAILY atorvastatin 40 MG tablet 40 mg PO QHS pantoprazole 40 MG tablet 40 mg PO BID oxybutynin chloride 5 mg tablet extended release 24hr 5 mg PO DAILY clopidogrel 75 mg tablet 75 mg PO QODAY melatonin 10 mg Tablet, Sublingual 10 mg PO QHS Qty: 0 0RF acetaminophen 500 mg Tablet 1,000 mg PO Q6H PRN (Reason: Pain Score 1-10) lorazepam 0.5 mg Tablet 0.5 mg PO TID 30 Days Qty: 90 0RF furosemide [Lasix] 20 mg tablet 20 mg PO DAILY PRN (Reason: DIURETIC) Qty: 30 0RF bupropion HCl 150 mg tablet sustained-release 12 hr 150 mg PO DAILY meloxicam 15 mg tablet 15 mg PO DAILY gabapentin 100 mg capsule 100 mg PO DAILY quetiapine 50 mg tablet 50 mg PO QHS aspirin 81 mg Tablet,Delayed Release (Dr/Ec) 81 mg PO BREAKFAST Qty: 30 0RF guaifenesin [Mucus Relief ER] 1,200 mg Tablet Extended Release 12hr 1,200 mg PO BID Qty: 20 0RF spironolactone 25 mg Tablet 25 mg PO DAILY Qty: 30 0RF lisinopril 20 mg tablet 20 mg PO BID Qty: 60 0RF isosorbide mononitrate 30 mg tablet extended release 24 hr 30 mg PO DAILY Qty: 90 0RF Referrals / Follow Up: Zully Rojas MD [Primary Care Provider] - See Referral Note (Please follow-up as scheduled tomorrow) Disposition Disposition (needs filled in before D/C Order can be placed): Home Health Service Charges/Coding Visit Charges Inpatient E&M: 99004 Disch Hosp >30min
--- NOTE | 2023-07-07 13:41 | PHA.DC_ITS ---
Pharmacy [facility] Reconciliation Pharmacy Service has performed discharge medication reconciliation for this patient. The patient's discharge medication list was reviewed for discrepancies and discrepancies were resolved. Medications at Discharge Home Medications levothyroxine 75 mcg tablet 75 mcg PO DAILY THYROID 09/06/17 citalopram 40 mg tablet 40 mg PO DAILY DEPRESSION 12/18/17 atenolol 50 mg tablet 50 mg PO DAILY BLOOD PRESSURE 01/05/18 atorvastatin 40 mg tablet 40 mg PO QHS CHOLESTEROL 01/05/18 albuterol sulfate 0.63 mg/3 mL solution for nebulization 0.63 mg inhalation Q4H PRN Congestion 07/14/18 pantoprazole 40 mg tablet,delayed release 40 mg PO BID GERD 01/16/19 oxybutynin chloride 5 mg tablet,extended release 24 hr 5 mg PO DAILY BLADDER 10/08/21 clopidogrel 75 mg tablet 75 mg PO QODAY BLOOD THINNER 07/12/22 melatonin 10 mg sublingual tablet 10 mg PO QHS INSOMNIA #0 tabs 02/12/23 acetaminophen 500 mg tablet 1,000 mg PO Q6H PRN Pain Score 1-10 02/16/23 furosemide 20 mg tablet (Lasix) 20 mg PO DAILY PRN DIURETIC #30 tabs 02/20/23 lorazepam 0.5 mg tablet 0.5 mg PO TID anxiety 30 days #90 tabs 02/20/23 bupropion HCl 150 mg tablet,12 hr sustained-release 150 mg PO DAILY mental health 06/30/23 gabapentin 100 mg capsule 100 mg PO DAILY nerve pain 06/30/23 meloxicam 15 mg tablet 15 mg PO DAILY pain 06/30/23 quetiapine 50 mg tablet 50 mg PO QHS mental health 06/30/23 aspirin 81 mg tablet,delayed release 81 mg PO BREAKFAST heart health #30 tabs 07/02/23 guaifenesin 1,200 mg tablet, extended release 12 hr (Mucus Relief ER) 1,200 mg PO BID cough #20 tabs 07/02/23 isosorbide mononitrate 30 mg tablet,extended release 24 hr 30 mg PO DAILY heart #90 tabs 07/02/23 lisinopril 20 mg tablet 20 mg PO BID BLOOD PRESSURE #60 tabs 07/02/23 spironolactone 25 mg tablet 25 mg PO DAILY diuretic #30 tabs 07/02/23
--- NOTE | 2023-07-07 15:18 | NURSING ---
Contacted dtr in regards to patient discharge. She will be here to last picker patient at main entrance around 1630
[2023-07-07 16:00] VITALS: BP 131/62; PULSE 62; RESP 16; TEMP 36.7; O2SAT 92
--- NOTE | 2023-08-10 11:25 | CCN.REFER ---
PATIENT HAS BEEN ON HOLD WITH CCN REFERRAL DUE TO BEING ACTIVE WITH TASHI JOHNSON. PER TIMUR (PATIENT'S DTR) THIS MORNING - THEY ARE DECLINING CCN SERVICES. TASHI JOHNSON IS DCING TODAY, AND SHE FEELS PATIENT DOES NOT NEED THE CONTINUED IN HOME MONITORING. THIS RN'S PHONE NUMBER PROVIDED IF THEY CHANGE THEIR MIND.
== END 2023-07-07 16:45 | disposition home health service (06) | DRG 291 ==
LOC: ED 21:20 → PCU 21:43
PROVIDERS: Nurse Practitioner; Admitting Provider Internal Medicine; Emergency Provider Emergency Medicine; PCP Internal Medicine; Visit Provider Internal Medicine
DX: I11.0 Hypertensive heart disease with heart failure (principal); G92.8 Other toxic encephalopathy; E43 Unspecified severe protein-calorie malnutrition; I50.33 Acute on chronic diastolic (congestive) heart failure; J96.11 Chronic respiratory failure with hypoxia; I67.89 Other cerebrovascular disease; R54 Age-related physical debility; J44.9 Chronic obstructive pulmonary disease, unspecified; D63.1 Anemia in chronic kidney disease; F32.A Depression, unspecified; E03.9 Hypothyroidism, unspecified; E87.6 Hypokalemia; I25.10 Atherosclerotic heart disease of native coronary artery without angina pectoris; K21.9 Gastro-esophageal reflux disease without esophagitis; F17.200 Nicotine dependence, unspecified, uncomplicated; I25.2 Old myocardial infarction; M51.36 Other intervertebral disc degeneration, lumbar region; E78.5 Hyperlipidemia, unspecified; Z79.01 Long term (current) use of anticoagulants; R62.7 Adult failure to thrive; G89.29 Other chronic pain; N32.81 Overactive bladder; R32 Unspecified urinary incontinence; Z66 Do not resuscitate; Z68.21 Body mass index [BMI] 21.0-21.9, adult; Z95.1 Presence of aortocoronary bypass graft; Z95.5 Presence of coronary angioplasty implant and graft; Z91.148 Patient's other noncompliance with medication regimen for other reason; Z79.02 Long term (current) use of antithrombotics/antiplatelets; Z79.82 Long term (current) use of aspirin; Z79.899 Other long term (current) drug therapy; Z85.048 Personal history of other malignant neoplasm of rectum, rectosigmoid junction, and anus; Z86.73 Personal history of transient ischemic attack (TIA), and cerebral infarction without residual deficits
CPT/HCPCS: 36415; 70450; 71045; 71046; 80048; 80053; 80307; 81001; 82803; 83690; 83735; 83880; 84484; 85025; 85027; 92526; 92610; 93005; 93308; 94640; 94668; 97110; 97162; 97166; 97530; 97802; 99285; A4216; J1938

== ENCOUNTER 2023-08-13 15:19 | Emergency (ER) | payer MEDICARE, SELFPAY ==
[2017-12-28 13:50] VITALS: BMI 29.2
[2023-08-13 15:21] VITALS: BP 146/73; PULSE 66; RESP 18; TEMP 36.8; O2SAT 96
[2023-08-13 15:31] VITALS: BMI 23.8
--- NOTE | 2023-08-13 15:36 | EKG12_ITS ---
Test Reason : DYSRHYTHMIA Blood Pressure : / mmHG Vent. Rate : 061 BPM Atrial Rate : 061 BPM P-R Int : 182 ms QRS Dur : 074 ms QT Int : 460 ms P-R-T Axes : 078 039 109 degrees QTc Int : 463 ms Normal sinus rhythm Nonspecific ST and T wave abnormality Abnormal ECG Confirmed by CONSUELO GOLD, EDDY ([id number]), editor index WALLY LOAIZA ([id number]) on 08/14/2023 9:39:28 AM Referred By: KIMBERLEY Confirmed By:EDDY CORDERO MD
--- NOTE | 2023-08-13 15:36 | EX.ED.UPPERE ---
HPI <MARYJANE Rubin - Last Filed: 08/13/23 17:59> History of Present Illness Chief Complaint: Upper Extremity Injury Narrative Narrative: Patient presenting today with her daughter due to concerns for a swollen left hand after her daughter found a tourniquet on her left wrist this afternoon. Daughter reports that patient likes to wear a lot of jewelry and had several bracelets and rings on her bilateral upper extremities, her daughter started to look at the bracelets closer and noticed a tourniquet was tied around her left wrist. She reports that the tourniquet looked like one that she had from getting blood drawn in the past. Daughter reports that she likely thought this was a bracelet. She noticed a bump to the dorsal aspect of her left hand as well as swelling. She was able to take her rings off. Shortly after this occurred patient reported chest pressure that quickly went away around 2 PM this afternoon, prompting daughter to bring her in. She denies having chest pain currently. She does have a history of CAD with CABG, dementia, hypertension, and COPD. [facility] <MARYJANE Rubin - Last Filed: 08/13/23 17:59> [facility] Medical History History of blood clots Chronic hypoxic respiratory failure Adult failure to thrive Osteoarthritis of left hip Avascular necrosis of femur head, left Anemia Declining functional status Unable to bear weight on left lower extremity Non-rheumatic mitral regurgitation History of rectal cancer Hemorrhoids, external Carotid artery stenosis CAD (coronary artery disease) Non-ST elevation (NSTEMI) myocardial infarction TIA (transient ischemic attack) CVA (cerebral vascular accident) History of thyroid cancer Depression with anxiety DDD (degenerative disc disease), lumbar H/O: pneumonia Diastolic dysfunction Atherosclerosis of coronary artery bypass graft without angina pectoris Benzodiazepine dependence Back pain COPD (chronic obstructive pulmonary disease) Obstructive sleep apnea Anxiety and depression Hypothyroidism Non-rheumatic tricuspid valve insufficiency Secondary pulmonary arterial hypertension Nicotine dependence Hyperlipidemia Atherosclerosis of coronary artery of [place] with angina pectoris Essential (primary) hypertension Home Medications ?Medication ?Instructions ?Recorded ?Last Taken ?Type levothyroxine 75 mcg tablet 75 mcg PO DAILY THYROID 09/06/17 01/29/23 History citalopram 40 mg tablet 40 mg PO DAILY DEPRESSION 12/18/17 01/29/23 History atenolol 50 mg tablet 50 mg PO DAILY BLOOD PRESSURE 01/05/18 04/19/22 History atorvastatin 40 mg tablet 40 mg PO QHS CHOLESTEROL 01/05/18 01/28/23 History albuterol sulfate 0.63 mg/3 mL 0.63 mg inhalation Q4H PRN 07/14/18 1 Week Ago History solution for nebulization Congestion ~10/01/21 pantoprazole 40 mg tablet,delayed 40 mg PO BID GERD 01/16/19 04/19/22 History release oxybutynin chloride 5 mg 5 mg PO DAILY BLADDER 10/08/21 01/29/23 History tablet,extended release 24 hr clopidogrel 75 mg tablet 75 mg PO QODAY BLOOD THINNER 07/12/22 01/29/23 History melatonin 10 mg sublingual tablet 10 mg PO QHS INSOMNIA #0 tabs 02/12/23 Unknown Rx acetaminophen 500 mg tablet 1,000 mg PO Q6H PRN Pain Score 1-10 02/16/23 Unknown History furosemide 20 mg tablet (Lasix) 20 mg PO DAILY PRN DIURETIC #30 02/20/23 01/29/23 Rx tabs lorazepam 0.5 mg tablet 0.5 mg PO TID anxiety 30 days #90 02/20/23 Unknown Rx tabs bupropion HCl 150 mg tablet,12 hr 150 mg PO DAILY mental health 06/30/23 Unknown History sustained-release gabapentin 100 mg capsule 100 mg PO DAILY nerve pain 06/30/23 Unknown History meloxicam 15 mg tablet 15 mg PO DAILY pain 06/30/23 Unknown History quetiapine 50 mg tablet 50 mg PO QHS mental health 06/30/23 Unknown History guaifenesin 1,200 mg tablet, 1,200 mg PO BID cough #20 tabs 07/02/23 Unknown Rx extended release 12 hr (Mucus Relief ER) lisinopril 20 mg tablet 20 mg PO BID BLOOD PRESSURE #60 07/02/23 04/19/22 Rx tabs spironolactone 25 mg tablet 25 mg PO DAILY diuretic #30 tabs 07/02/23 Unknown Rx aspirin 81 mg tablet,delayed 81 mg PO BREAKFAST heart health 08/06/23 Unknown Rx release #90 tabs isosorbide mononitrate 30 mg 30 mg PO DAILY heart #90 tabs 08/06/23 Unknown Rx tablet,extended release 24 hr Allergy/AdvReac Type Severity Reaction Status Date / Time morphine Allergy PT UNSURE Verified 08/13/23 15:20 Penicillins Allergy Hives Verified 08/13/23 15:20 tramadol HCl (From Ultram) Allergy PT UNSURE Verified 08/13/23 15:20 bupropion (From Wellbutrin) AdvReac hallucinati Verified 08/13/23 15:20 ons Family History Father Heart disease of heart attack at age 64 Mother Cancer of cancer at age 72 CVA (cerebral vascular accident) Surgical History Hx of thyroidectomy Presence of stent in coronary artery (~10/10/21) History of left heart catheterization (10/10/21) History of appendectomy Hx of cholecystectomy History of coronary artery stent placement (10/10/21) History of coronary artery bypass graft x 3 (~2007) Social History household members: children and other details: Daughter. housing: house Smoking Status: Heavy Smoker (>10/day) details: Patient denies alcohol use substance use type: does not use ROS <MARYJANE Rubin - Last Filed: 08/13/23 17:59> ROS ED Constitutional Constitutional ED: Denies chills or fever(s) Cardiovascular Cardiovascular: Reports chest pain; Denies palpitations Respiratory/Chest Respiratory/Chest: Denies cough or dyspnea Gastrointestinal Gastrointestinal: Denies abdominal pain, nausea or vomiting Musculoskeletal Musculoskeletal: Denies arthralgias or myalgias Integumentary Denies rash Neurologic Neurologic: Denies weakness EXAM <MARYJANE Rubin - Last Filed: 08/13/23 17:59> Physical Exam Const Vital Signs: 08/13/23 15:21 Temperature 98.3 F Temperature Source Temporal Pulse Rate 66 Respiratory Rate 18 Blood Pressure 146/73 H Blood Pressure Mean 97 Pulse Ox 96 Oxygen Delivery Method Room Air Positive well nourished, well developed and no apparent distress General Appearance ED: well developed HEENT Reports normocephalic and head/scalp atraumatic Mouth ED: Yes moist mucous membranes normal Eyes PERRL and EOMs intact bilaterally Neck full ROM and supple Chest Wall inspection of chest normal Resp normal respiratory effort and clear to auscultation bilaterally Cardio regular rate and regular rhythm GI soft to palpation, non-tender, non-distended and no masses Back/Spine normal ROM and normal to inspection Extremity full ROM Extremity Narrative: Slight swelling to the left hand with what appears to be a cyst to the dorsal aspect of her left wrist. Left radial pulse 2+, good capillary refill, sensation intact. Neuro oriented x3, CN's II-XII intact bilaterally, moves all extremities, no focal motor deficits and no sensory deficits noted Sensorium / Orientation: awake and alert Psych mental status grossly normal and thought process normal Skin no rashes or lesions noted and no wounds [facility] <MARYJANE Rubin - Last Filed: 08/13/23 17:59> [facility] Narrative Medical decision making narrative: Patient presenting due to what appears to be a ganglion cyst to the dorsal aspect of the left wrist. She had returned time around her left wrist along with several bracelets, she still does have several bracelets on both of her wrists as well as multiple rings on her right hand. There is slight swelling as a result to her left hand but she is neurovascularly intact. She also had an episode of chest pain a few hours prior to arrival that came and went quickly, she does not have any chest pain or shortness of breath at this time. However, given her cardiac history labs will be obtained to rule out ACS. CBC, BMP, and troponin are unremarkable. I encouraged that she follow-up with her PCP, she will be discharged in stable condition and patient and family are comfortable with plan. I have personally performed a face to face assessment of the patient and have reviewed the LIT Note. I performed a substantive portion of the visit including all aspects of the following. My davila findings include: History is 78-year-old female presented due to swelling in her left lower extremity and hand after actually putting a tourniquet type of bracelet on her arm. It was taken off at home daughter thinks is going on for few hours consider was not on last night. Patient wears a lot of brace and some daughter thinks it was in the drawer that her braces are in and somehow she got it on her arm. She is not complaining of pain in her hand. She also had a very brief second episode of chest discomfort today that is since resolved. That was several hours ago. Exam is [well-appearing 78-year-old female. Vital signs stable afebrile. H EENT exam unremarkable. Neck nontender. Lungs clear. Heart regular rate and rhythm rate about 65 no murmur. Chest wall and ribs nontender. Abdomen soft nontender. Moving all 4 extremities. Mild swelling to the dorsum of her left hand and wrist. Strong radial pulse. 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 Normal sensation. She has some bruising on the back of her left hand. There is also what appears to be a ganglion cyst on the back of her left wrist. Calves are nontender that edema. Neurologically she is awake and alert. No focal motor deficits.] Medical Decision Making [ ] Other additions or changes: [None] <Dr. Evelio Murphy MD - Last Filed: 08/13/23 16:23> [facility] Narrative Medical decision making narrative: I have personally performed a face to face assessment of the patient and have reviewed the LIT Note. I performed a substantive portion of the visit including all aspects of the following. My davila findings include: History is 78-year-old female presented due to swelling in her left lower extremity and hand after actually putting a tourniquet type of bracelet on her arm. It was taken off at home daughter thinks is going on for few hours consider was not on last night. Patient wears a lot of brace and some daughter thinks it was in the drawer that her braces are in and somehow she got it on her arm. She is not complaining of pain in her hand. She also had a very brief second episode of chest discomfort today that is since resolved. That was several hours ago. Exam is [well-appearing 78-year-old female. Vital signs stable afebrile. H EENT exam unremarkable. Neck nontender. Lungs clear. Heart regular rate and rhythm rate about 65 no murmur. Chest wall and ribs nontender. Abdomen soft nontender. Moving all 4 extremities. Mild swelling to the dorsum of her left hand and wrist. Strong radial pulse. 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 Normal sensation. She has some bruising on the back of her left hand. There is also what appears to be a ganglion cyst on the back of her left wrist. Calves are nontender that edema. Neurologically she is awake and alert. No focal motor deficits.] Medical Decision Making [ ] Other additions or changes: [None] History & Record Review Discussion w/independent historian: Patient and Family Additional record(s) reviewed:: Prior inpatient record, Prior outpatient record, Prior ED visit, Prior labs and No prior records Lab Data Attestation: I reviewed the patient's lab results. Lab results narrative: CBC unremarkable shows a chronic anemia consistent with prior labs. Radiography Chest X-Ray - ED: 1 View, Read by ED Physician, Normal, Heart, Lungs, Mediastinum, Bony Structures, No Acute Disease and Chronic Changes Diagnostic Testing: Chest x-ray, portable, single view interpreted by myself shows prior CABG. Normal cardiac silhouette. Normal lung cortes. Chronic changes. No acute process. Rhythm Strip Rhythm Strip: Sinus Rhythm Rate: 61 Ectopy: None EKG Initial EKG: Attestation: I personally reviewed and interpreted this EKG as follows: Interpretation: Sinus Rhythm and No Acute Injury Pattern Comments: Normal sinus rhythm rate of 61 no acute signs of MN or ischemia. Discharge Plan Triage Chief Complaint: Upper Extremity Injury Other Complaint: Chest Other ED Midlevel Provider: Princess Almonte ED Provider: Evelio Murphy Dx/Rx/DC Orders Clinical Impression: Ganglion cyst, Chest pain, Swelling of left hand Instructions: Ganglion Cyst: Hand, ED Chest Pain, Uncertain Cause Prescriptions: No Action albuterol sulfate 0.63 mg/3 mL solution for nebulization 0.63 mg INHALATION Q4H PRN (Reason: Congestion) isosorbide mononitrate 30 mg tablet extended release 24 hr 30 mg PO DAILY Qty: 90 3RF aspirin 81 mg tablet,delayed release (DR/EC) 81 mg PO BREAKFAST Qty: 90 3RF levothyroxine 75 MCG tablet 75 mcg PO DAILY citalopram 40 mg tablet 40 mg PO DAILY atenolol 50 MG tablet 50 mg PO DAILY atorvastatin 40 MG tablet 40 mg PO QHS pantoprazole 40 MG tablet 40 mg PO BID oxybutynin chloride 5 mg tablet extended release 24hr 5 mg PO DAILY clopidogrel 75 mg tablet 75 mg PO QODAY melatonin 10 mg Tablet, Sublingual 10 mg PO QHS Qty: 0 0RF acetaminophen 500 mg Tablet 1,000 mg PO Q6H PRN (Reason: Pain Score 1-10) lorazepam 0.5 mg Tablet 0.5 mg PO TID 30 Days Qty: 90 0RF furosemide [Lasix] 20 mg tablet 20 mg PO DAILY PRN (Reason: DIURETIC) Qty: 30 0RF bupropion HCl 150 mg tablet sustained-release 12 hr 150 mg PO DAILY meloxicam 15 mg tablet 15 mg PO DAILY gabapentin 100 mg capsule 100 mg PO DAILY quetiapine 50 mg tablet 50 mg PO QHS guaifenesin [Mucus Relief ER] 1,200 mg Tablet Extended Release 12hr 1,200 mg PO BID Qty: 20 0RF spironolactone 25 mg Tablet 25 mg PO DAILY Qty: 30 0RF lisinopril 20 mg tablet 20 mg PO BID Qty: 60 0RF Primary Care Provider: Zully Rojas Referrals: Zully Rojas MD [Primary Care Provider] - 5-7 Days Activity Restrictions/Additional Instructions: Follow-up with PCP and return for any worsening of your symptoms. Print Language: Bahamian Disposition Disposition: Home, Self Care Discharge Date/Time: 08/13/23 17:29
--- NOTE | 2023-08-13 16:00 | RAD_ITS ---
STUDY: X-RAY CHEST REASON FOR EXAM: Female, 78 years old. chest pain TECHNIQUE: Single AP portable view of the chest. COMPARISON: 07/04/2023. FINDINGS: The lungs are clear and expanded. There is no demonstrated pleural abnormality. There is mild cardiac enlargement. Previous CABG. Normal mediastinum and [place]. Normal visualized pulmonary arteries. Normal visualized aortic arch and descending thoracic aorta. There are diffuse degenerative changes of the visualized thoracic spine. There is degenerative osteoarthritis of the bilateral shoulders. There is no demonstrated abnormality of the visualized soft tissue structures of the upper abdomen. RAD/Chest 1 View (Portable) IMPRESSION: No definite acute or significant abnormality seen. Electronically Signed: Miller Castillo MD at 16:13 EDT ,
[2023-08-13 16:05] LABS: Absolute Lymphocyte Count 1.84 X10^3/uL (0.83-4.51); Absolute Neutrophil Count 7.4 X10^3/uL (2.0-7.7); Basophil# 0.04 X10^3/uL; Basophil% 0.4 % (0-1); Eosinophil# 0.26 X10^3/uL; Eosinophils% 2.5 % (0-5); Hematocrit 37.7 % (37-47); Hemoglobin 11.8 g/dL (12.0-15.0); Lymphocyte # 1.84 X10^3/ul (0.83-4.51); Lymphocyte % 17.9 % (19-41); Mean Corp Hgb Conc 31.3 g/dL (32-36); Mean Corpuscular Hgb 27.9 pg (27.0-32.0); Mean Corpuscular Volume 89.1 fL (81-99); Mean Platelet Vol. 10.4 fl (6.2-12.0); Monocyte# 0.76 X10^3/uL; Monocyte% 7.4 % (0-10); NRBC Flagged by Analyzer 0 % (0-5); Neutrophil # 7.37 X10^3/uL (2.7-7.7); Neutrophil % 71.5 % (47-70); Platelet Count 213 K/mm3 (150-450); RBC Distribution Width CV 18.2 % (11.6-14.6); RBC Distribution Width SD 59.7 fl (35.1-43.9); Red Blood Count 4.23 M/mm3 (4.2-5.4); White Blood Count 10.3 K/mm3 (4.4-11.0)
[2023-08-13 16:25] LABS: Anion Gap 3 (5-15); BUN 15 mg/dL (7-18); Calcium,Total 8.4 mg/dL (8.5-10.1); Chloride 106 mmol/L (98-107); Creatinine, Serum 0.72 mg/dL (0.55-1.02); EST Glomerular Filtration Rate 84 mL/min (>60); Est Glom Filt Rate - Afr Amer 102 mL/min (>60); Estimated Creatinine Clearance 46.67 ml/min; Glucose 79 mg/dL (74-106); Potassium 3.9 mmol/L (3.5-5.1); Sodium Level 140 mmol/L (136-145); Troponin-I HS 26 pg/mL (3.0-54.0)
[2023-08-13 17:23] VITALS: BP 170/66; PULSE 68; PULSE 72; RESP 19; RESP 20; TEMP 37; O2SAT 97
== END 2023-08-13 17:29 | disposition home or self-care (01) ==
PROVIDERS: Physician Assistant; Emergency Provider Emergency Medicine; PCP Internal Medicine; Visit Provider Emergency Medicine
DX: M67.442 Ganglion, left hand (principal); J44.9 Chronic obstructive pulmonary disease, unspecified; R07.9 Chest pain, unspecified; I25.10 Atherosclerotic heart disease of native coronary artery without angina pectoris; F17.200 Nicotine dependence, unspecified, uncomplicated; G47.33 Obstructive sleep apnea (adult) (pediatric); Z86.73 Personal history of transient ischemic attack (TIA), and cerebral infarction without residual deficits; Z95.1 Presence of aortocoronary bypass graft; Z95.5 Presence of coronary angioplasty implant and graft
CPT/HCPCS: 71045; 80048; 84484; 85025; 93005; 99285; A4216

== ENCOUNTER 2024-02-08 00:57 | Inpatient (IN) | payer MEDICARE, SELFPAY ==
[2017-12-28 13:50] VITALS: BMI 29.2
[2024-02-08] VITALS (42 sets, daily range): BP systolic 106–186; BP diastolic 60–104; PULSE 89–128; RESP 15–32; TEMP 36.2–36.6; O2SAT 91–99; BMI 25.8; BMI 26.7
--- NOTE | 2024-02-08 00:59 | EKG12_ITS ---
Test Reason : DYSRHYTHMIA Blood Pressure : */* mmHG Vent. Rate : 89 BPM Atrial Rate : * BPM P-R Int : * ms QRS Dur : 88 ms QT Int : 368 ms P-R-T Axes : * 52 145 degrees QTcB Int : [address] depression, consider subendocardial injury Nonspecific T wave abnormality Abnormal ECG Confirmed by CONSUELO GOLD, EDDY ([id number]), editorial assistant WALLY LOAIZA ([id number]) on 02/08/2024 10:50:18 AM Referred By: Juan Jose Confirmed By: EDDY CORDERO MD
--- NOTE | 2024-02-08 01:01 | ED.VIS.STROK ---
HPI History of Present Illness Chief Complaint: Stroke Alert Informant: patient and EMS Narrative Narrative: Prehospital stroke alert called on this patient who was witnessed by a family member to be normal 30 minutes prior to arrival here in the emergency department (20 minutes prior to EMS contact) and then stood up to go to the bathroom and collapsed and has had severely abnormal speech ever since whereas her speech is usually normal. History of TIAs in the past. EMS states history of A-fib and on clopidogrel and aspirin but no anticoagulants. They gave her a milligram of Narcan with no effect, unclear exactly why. Her blood sugar was 111. They state their stroke evaluation was relatively limited because she would not follow commands but she did not have an obvious facial droop, was moving all 4 extremities, but she was so aphasic that they called a stroke alert. [facility] Medical History History of blood clots Chronic hypoxic respiratory failure Adult failure to thrive Osteoarthritis of left hip Avascular necrosis of femur head, left Anemia Declining functional status Unable to bear weight on left lower extremity Non-rheumatic mitral regurgitation History of rectal cancer Hemorrhoids, external Carotid artery stenosis CAD (coronary artery disease) Non-ST elevation (NSTEMI) myocardial infarction TIA (transient ischemic attack) CVA (cerebral vascular accident) History of thyroid cancer Depression with anxiety DDD (degenerative disc disease), lumbar H/O: pneumonia Diastolic dysfunction Atherosclerosis of coronary artery bypass graft without angina pectoris Benzodiazepine dependence Back pain COPD (chronic obstructive pulmonary disease) Obstructive sleep apnea Anxiety and depression Hypothyroidism Non-rheumatic tricuspid valve insufficiency Secondary pulmonary arterial hypertension Nicotine dependence Hyperlipidemia Atherosclerosis of coronary artery of [place] heart with angina pectoris Essential (primary) hypertension Home Medications ?Medication ?Instructions ?Recorded ?Last Taken ?Type levothyroxine 75 mcg tablet 75 mcg PO DAILY THYROID 09/06/17 01/29/23 History citalopram 40 mg tablet 40 mg PO DAILY DEPRESSION 12/18/17 01/29/23 History atenolol 50 mg tablet 50 mg PO DAILY BLOOD PRESSURE 01/05/18 04/19/22 History atorvastatin 40 mg tablet 40 mg PO QHS CHOLESTEROL 01/05/18 01/28/23 History albuterol sulfate 0.63 mg/3 mL 0.63 mg inhalation Q4H PRN 07/14/18 1 Week Ago History solution for nebulization Congestion ~10/01/21 pantoprazole 40 mg tablet,delayed 40 mg PO BID GERD 01/16/19 04/19/22 History release oxybutynin chloride 5 mg 5 mg PO DAILY BLADDER 10/08/21 01/29/23 History tablet,extended release 24 hr clopidogrel 75 mg tablet 75 mg PO QODAY BLOOD THINNER 07/12/22 01/29/23 History melatonin 10 mg sublingual tablet 10 mg PO QHS INSOMNIA #0 tabs 02/12/23 Unknown Rx acetaminophen 500 mg tablet 1,000 mg PO Q6H PRN Pain Score 1-10 02/16/23 Unknown History furosemide 20 mg tablet (Lasix) 20 mg PO DAILY PRN DIURETIC #30 02/20/23 01/29/23 Rx tabs lorazepam 0.5 mg tablet 0.5 mg PO TID anxiety 30 days #90 02/20/23 Unknown Rx tabs bupropion HCl 150 mg tablet,12 hr 150 mg PO DAILY mental health 06/30/23 Unknown History sustained-release gabapentin 100 mg capsule 100 mg PO DAILY nerve pain 06/30/23 Unknown History meloxicam 15 mg tablet 15 mg PO DAILY pain 06/30/23 Unknown History quetiapine 50 mg tablet 50 mg PO QHS mental health 06/30/23 Unknown History guaifenesin 1,200 mg tablet, 1,200 mg PO BID cough #20 tabs 07/02/23 Unknown Rx extended release 12 hr (Mucus Relief ER) lisinopril 20 mg tablet 20 mg PO BID BLOOD PRESSURE #60 07/02/23 04/19/22 Rx tabs spironolactone 25 mg tablet 25 mg PO DAILY diuretic #30 tabs 07/02/23 Unknown Rx aspirin 81 mg tablet,delayed 81 mg PO BREAKFAST heart health 08/06/23 Unknown Rx release #90 tabs isosorbide mononitrate 30 mg 30 mg PO DAILY heart #90 tabs 08/06/23 Unknown Rx tablet,extended release 24 hr Allergy/AdvReac Type Severity Reaction Status Date / Time morphine Allergy PT UNSURE Verified 02/08/24 01:18 Penicillins Allergy Hives Verified 02/08/24 01:18 tramadol HCl (From Ultram) Allergy PT UNSURE Verified 02/08/24 01:18 bupropion (From Wellbutrin) AdvReac hallucinati Verified 02/08/24 01:18 ons Family History Father Heart disease of heart attack at age 64 Mother Cancer of cancer at age 72 CVA (cerebral vascular accident) Surgical History Hx of thyroidectomy Presence of stent in coronary artery (~10/10/21) History of left heart catheterization (10/10/21) History of appendectomy Hx of cholecystectomy History of coronary artery stent placement (10/10/21) History of coronary artery bypass graft x 3 (~2007) Social History household members: children and other details: Daughter. housing: house Smoking Status: Heavy Smoker (>10/day) details: Patient denies alcohol use substance use type: does not use EXAM Physical Exam Const Vital Signs: 02/08/24 00:57 02/08/24 00:58 02/08/24 01:07 Temperature 97.5 F L Temperature Source Temporal Pulse Rate 106 H 104 H Respiratory Rate 17 17 Blood Pressure 186/95 H Blood Pressure Mean 125 Blood Pressure Source Blood Pressure Position Blood Pressure Location Pulse Ox 95 98 95 Oxygen Delivery Method Room Air Room Air Room Air Oxygen Flow Rate (L/min) 02/08/24 01:36 02/08/24 01:36 02/08/24 01:51 Temperature 97.6 F L 97.4 F L Temperature Source Temporal Temporal Pulse Rate 105 H 100 Respiratory Rate 17 21 H Blood Pressure 159/98 H 159/98 H 147/82 H Blood Pressure Mean 118 103 Blood Pressure Source Monitor Monitor Blood Pressure Position Semi-Fowlers Semi-Fowlers Blood Pressure Location Left Arm Right Arm Pulse Ox 91 91 Oxygen Delivery Method Room Air Nasal Cannula Oxygen Flow Rate (L/min) 2 02/08/24 02:06 Temperature 97.8 F Temperature Source Temporal Pulse Rate 96 Respiratory Rate 21 H Blood Pressure 160/93 H Blood Pressure Mean 115 Blood Pressure Source Monitor Blood Pressure Position Semi-Fowlers Blood Pressure Location Left Arm Pulse Ox 91 Oxygen Delivery Method Nasal Cannula Oxygen Flow Rate (L/min) 2 NIHSS NIHSS Initial: 1a Level of Consciousness: 1 (easily arouses to voice) 1b LOC Questions (Score 2 if aphasic/stupor): 2 1c LOC Commands (Only score 1st attempt): 2 2 Best Gaze (If aphasic, use reflexive mvmts.): 1 3 Visual: 0 4 Facial Palsy: 0 5 Motor Arm Right (UN = amputation/fusion): 3 5 Motor Arm Left: 0 6 Motor Leg Right: 3 6 Motor Leg Left: 2 7 Limb ataxia (Only + if out of proportion): 0 8 Sensory (Aphasia/stupor=0 or 1, coma=2): 1 9 Best Language: 2 10 Dysarthria (mute, coma=2, intubated=UN): 1 11 Extinction and Inattention (only scored if +): 0 Total Score: 18 MDM MDM MDM Narrative Medical decision making narrative: Patient evaluated in the EMS bay and sent directly to CT, I did a detailed NIH upon arrival from CT to the room. She is very difficult to evaluate and seems encephalopathic and additionally possibly aphasic. She does seem to be lateralizing with regards to the right upper extremity, which she can move but unable to hold up but eventually we were able to get her to hold her left upper extremity up for the full 10 seconds. Initially the last known well was noted to be 0030 but later EMS stated that the daughter had last talked to her normal an hour prior to that at 2330. Patient was not asleep when she got up, but it was noted by the daughter that when she got up she walked to the bathroom without difficulty and said something to the daughter that sounded okay at around 0015, and then when she came back she had a blank stare was having trouble talking, and looked wobbly and then fell and bumped her head on the cabinet, she does not think she hit hard she did not lose consciousness, this is when she called 911 around 0030. I reviewed the patient's CT head plain, and on my interpretation there is no acute hemorrhage. Radiology confirmed this later. She does have some old encephalomalacia that was seen on old CT, right medial occipital lobe, daughter confirms that she does have some chronic vision trouble since then, but other than memory issues and some dementia, no other residual deficits. All of the current deficits we are seeing are new and acute. After determining the last known well with stroke neurology together, and confirming with the medication list that we have available in the EMR, last filled medications, and daughter at the bedside, that she does not appear to be on an anticoagulant just aspirin and clopidogrel, we decided she is a thrombolytic candidate. We discussed risks, benefits, alternatives with the daughter, including the fact that with her age and dementia her risk of bleeding may be higher than the documented 6%, she is in agreement with our judgment to give thrombolytics so it is ordered and given. She is tolerating this well. EKG shows rate controlled atrial fibrillation, the rest of her labs are noted and unremarkable. Upon trying to move her right lower extremity more, nurses state it is really hurting her. On my exam she is not tender in the thigh, knee, leg, ankle, foot, so I am going to obtain a hip x-ray to rule out a fracture since she did fall. On my interpretation 3 view x-ray series of the right hip and pelvis show an intertrochanteric hip fracture. Indeed this was discovered after she received thrombolytics, so we will continue to watch the area for signs of hemorrhage. Clinically the whole area is closed. She may benefit from Layton's traction as a result, Ortho in agreement. I discussed the CTA with the radiologist, I reviewed the images and the report which I agree with, there is no LVO but there is an incidental left upper lobe nodule/mass in the lung. Discussed with hospitalist for admission to ICU Lab Data Attestation: I reviewed the patient's lab results. Labs: Laboratory Results - last 24 hr 02/08/24 00:53 WBC 8.0 RBC 3.91 L Hgb 11.9 L Hct 37.2 MCV 95.1 MCH 30.4 MCHC 32.0 RDW Std Deviation 43.6 RDW Coeff of John 12.7 Plt Count 271 MPV 9.9 Immature Gran % (Auto) 1.100 H Neut % (Auto) 55.0 Lymph % (Auto) 31.5 Mccreary % (Auto) 7.4 Eos % (Auto) 4.4 Baso % (Auto) 0.6 Absolute Neuts (auto) 4.4 Absolute Lymphs (auto) 2.51 Nucleated RBC % 0 PT 14.3 INR 1.1 APTT 29.1 Sodium 140 Potassium 3.2 L Chloride 105 Carbon Dioxide 30.0 Anion Gap 6 BUN 15 Creatinine 0.74 Estim Creat Clear Calc 48.45 Est GFR (MDRD) Af Amer 98 Est GFR (MDRD) Non-Af 81 BUN/Creatinine Ratio 20.2 H Glucose 124 H Calcium 8.4 L Troponin I High Sens 26 Radiography Diagnostic Testing: Clinical Impression(s) from Imaging Studies Brain CT 02/08/24 01:03 IMPRESSION: 1. Moderate atrophy and advanced periventricular white matter ischemic changes. 2. Old lacunar infarct in the right basal ganglia and old infarct in distribution of right posterior cerebral artery. 3. Overall there has been no change from the prior study. 4. Stroke ASPECTS score 10. Electronically Signed: Jose Sullivan MD at 1:23 EST , ADDENDUM: 02/08/24 0136 IMPRESSION: 1. Moderate atrophy and advanced periventricular white matter ischemic changes. 2. Old lacunar infarct in the right basal ganglia and old infarct in distribution of right posterior cerebral artery. 3. Overall there has been no change from the prior study. 4. Stroke ASPECTS score 10. N.B. : The above Results were Read Back by Jose Sullivan MD to Britt Serrano RN, and understanding confirmed on 02/08/2024 01:29:18 (ET). Electronically Signed: Jose Sullivan MD at 1:23 EST , ADDENDUM: 02/08/24 013 IMPRESSION: undefined Head/Neck CTA 02/08/24 01:03 IMPRESSION: 1. No significant stenosis, thrombosis or aneurysm or dissection. 2. 2 cm mass at the left upper lobe is concerning neoplasm. Consider PET/CT for further investigation if this is new (by report this was not present on the prior chest CT from 10/08/2021). 3. Several prominent nonspecific mediastinal lymph nodes are identified which are ill-defined. Attention on follow-up or subsequent examination. 4. No other acute disease. 5. Ancillary findings as above. Dr. Gurmeet Carrillo was notified of findings at 10:54 PM PACIFIC TIME on 02/07/2024. N.B. : The above Results were Read Back by Jose Sullivan MD to Gurmeet Carrillo MD, and understanding confirmed on 02/08/2024 01:55:07 (ET). Electronically Signed: Jose Sullivan MD at 1:59 EST , ADDENDUM: 02/08/24 0206 IMPRESSION: 1. No significant stenosis, thrombosis or aneurysm or dissection. 2. 2 cm mass at the left upper lobe is concerning neoplasm. Consider PET/CT for further investigation if this is new (by report this was not present on the prior chest CT from 10/08/2021). 3. Several prominent nonspecific mediastinal lymph nodes are identified which are ill-defined. Attention on follow-up or subsequent examination. 4. No other acute disease. 5. Ancillary findings as above. Dr. Gurmeet Carrillo was notified of findings at 10:54 PM PACIFIC TIME on 02/07/2024. N.B. : The above Results were Read Back by Jose Sullivan MD to Gurmeet Carrillo MD, and understanding confirmed on 02/08/2024 01:55:07 (ET). Electronically Signed: Jose Sullivan MD at 1:59 EST , Rhythm Strip Rhythm Strip: A-fib Rate: 90 Ectopy: None EKG Initial EKG: Attestation: I personally reviewed and interpreted this EKG as follows: Interpretation: No Acute Injury Pattern, Atrial Fibrillation and Non-Specific ST Changes Management Discussion w/another healthcare provider: Hospitalist, Acting Teacher (Stroke neurology Dr. Jensen; ortho dr. anguiano) and Radiologist Stroke Documentation Questions Stroke Team Activated: Yes (Prehospital) Reviewed Inclusion/Exclusion criteria: Yes IV Thrombolytic Administered: Yes No contraindications from thrombolytic administration: Yes Risks, Benefits, Alternatives Discussed: Yes (w/ daughter) Critical Care Time Critical Care Time: Yes Critical care time (excluding procedures): 30-74 minutes (36 minutes), Including time spent:, Discussing w/Patient &/or Family/Casino Change Attendant, Discussing w/Consultants, Arranging Admission or Transfer and Performing Direct Patient Care at Bedside Discharge Plan Dx/Rx/DC Orders Clinical Impression: Acute ischemic left MCA stroke, Atrial fibrillation, Mass of upper lobe of left lung, Closed intertrochanteric fracture of right hip Disposition Disposition: Acute Care Hospital [facility]
--- NOTE | 2024-02-08 01:03 | CT_ITS ---
EXAM: CT ANGIOGRAPHY NECK WITH INTRAVENOUS CONTRAST CLINICAL INDICATION: Neuro deficit, acute, stroke suspected TECHNIQUE: Routine carotid CT angiography protocol was performed with intravenous contrast. NASCET criteria using the distal ICAs for comparison were used for evaluation of stenoses. CTDIvol = ( 22.16 ) mGy, DLP = ( 771.41 ) mGycm This CT exam was performed using one or more of the following dose reduction techniques: automated exposure control, adjustment of the mA and/or kV according to patient size, and/or use of iterative reconstruction technique. MIP reconstructed images were created and reviewed. CONTRAST: IV 100mL [id number] COMPARISON: No relevant prior studies available. FINDINGS: VASCULATURE: RIGHT COMMON CAROTID ARTERY: Unremarkable. No occlusion or significant stenosis. No dissection. RIGHT INTERNAL CAROTID ARTERY: Unremarkable. Extracranial segment is patent with no occlusion or significant stenosis. No dissection. RIGHT EXTERNAL CAROTID ARTERY: Unremarkable. No occlusion. RIGHT VERTEBRAL ARTERY: Unremarkable. No occlusion or significant stenosis. No dissection. LEFT COMMON CAROTID ARTERY: Unremarkable. No occlusion or significant stenosis. No dissection. LEFT INTERNAL CAROTID ARTERY: Unremarkable. Extracranial segment is patent with no occlusion or significant stenosis. No dissection. LEFT EXTERNAL CAROTID ARTERY: Unremarkable. No occlusion. LEFT VERTEBRAL ARTERY: Unremarkable. No occlusion or significant stenosis. No dissection. BRACHIOCEPHALIC AND SUBCLAVIAN ARTERIES: Unremarkable as visualized. No occlusion or significant stenosis. NECK: BRAIN AND EXTRA-AXIAL SPACES: Please refer to recent head CT for intracranial findings. BONES/JOINTS: Multilevel spine degenerative changes. Median sternotomy. No acute or healing fracture or malalignment. SOFT TISSUES: Unremarkable. SINUSES: Mucosal thickening involving the paranasal sinuses with no air-fluid levels. MASTOID AIR CELLS: Mastoid air cells and middle ears are clear. LUNG APICES: Anterior left upper lobe solid tissue mass measuring 2.0 cm is demonstrated. MEDIASTINUM: Several prominent mediastinal lymph nodes are identified which are ill-defined. CAROTID STENOSIS REFERENCE USING NASCET CRITERIA: % ICA stenosis = (1 - narrowest ICA diameter/diameter of distal cervical ICA) x 100. Mild - <50% stenosis. Moderate - 50-69% stenosis. Severe - 70-94% stenosis. Near occlusion - 95-99% stenosis. Occluded - 100% stenosis. CT/STROKE CTA Head AND Neck W/Con IMPRESSION: 1. No significant stenosis, thrombosis or aneurysm or dissection. 2. 2 cm mass at the left upper lobe is concerning neoplasm. Consider PET/CT for further investigation if this is new (by report this was not present on the prior chest CT from 10/08/2021). 3. Several prominent nonspecific mediastinal lymph nodes are identified which are ill-defined. Attention on follow-up or subsequent examination. 4. No other acute disease. 5. Ancillary findings as above. Dr. Gurmeet Carrillo was notified of findings at 10:54 PM PACIFIC TIME on 02/07/2024. N.B. : The above Results were Read Back by Jose Sullivan MD to Gurmeet Carrillo MD, and understanding confirmed on 02/08/2024 01:55:07 (ET). Electronically Signed: Jose Sullivan MD at 1:59 EST ,
--- NOTE | 2024-02-08 01:03 | CT_ITS ---
We are attempting to reach an attending provider to discuss findings. An addendum with communication details will be sent when the communication is complete. EXAM: CT HEAD WITHOUT INTRAVENOUS CONTRAST CLINICAL INDICATION: Neuro deficit, acute, stroke suspected TECHNIQUE: Multiple axial images were obtained of the head without intravenous contrast. This CT exam was performed using one or more of the following dose reduction techniques: automated exposure control, adjustment of the mA and/or kV according to patient size, and/or use of iterative reconstruction technique. COMPARISON: 07/03/23 FINDINGS: BRAIN AND EXTRA-AXIAL SPACES: Moderate atrophy and advanced periventricular white matter ischemic changes. Old lacunar infarct in the right basal ganglia and old infarct in distribution of right posterior cerebral artery. Moderate diffuse parenchymal atrophy and chronic ischemic small vessel white matter disease. No intra- or extra-axial hemorrhage. No intracranial mass or mass effect. Posterior fossa structures are unremarkable. No hydrocephalus. Basal cisterns are patent. BONES/JOINTS: Unremarkable. No discrete lytic or blastic abnormalities. SINUSES: Findings of chronic inflammatory paranasal sinus disease with no air-fluid levels. MASTOID AIR CELLS: Unremarkable. Clear. ORBITS: Visualized globes, extraocular muscles, optic nerves and retrobulbar fat appear unremarkable. CT/STROKE Brain/Head without Cont IMPRESSION: 1. Moderate atrophy and advanced periventricular white matter ischemic changes. 2. Old lacunar infarct in the right basal ganglia and old infarct in distribution of right posterior cerebral artery. 3. Overall there has been no change from the prior study. 4. Stroke ASPECTS score 10. Electronically Signed: Jose Sullivan MD at 1:23 EST ,
[2024-02-08 01:11] LABS: Absolute Lymphocyte Count 2.51 X10^3/uL (0.83-4.51); Absolute Neutrophil Count 4.4 X10^3/uL (2.0-7.7); Basophil# 0.05 X10^3/uL; Basophil% 0.6 % (0-1); Eosinophil# 0.35 X10^3/uL; Eosinophils% 4.4 % (0-5); Hematocrit 37.2 % (37-47); Hemoglobin 11.9 g/dL (12.0-15.0); Lymphocyte # 2.51 X10^3/ul (0.83-4.51); Lymphocyte % 31.5 % (19-41); Mean Corpuscular Hgb 30.4 pg (27.0-32.0); Mean Corpuscular Volume 95.1 fL (81-99); Mean Platelet Vol. 9.9 fl (6.2-12.0); Monocyte# 0.59 X10^3/uL; Monocyte% 7.4 % (0-10); NRBC Flagged by Analyzer 0 % (0-5); Neutrophil # 4.38 X10^3/uL (2.7-7.7); Platelet Count 271 K/mm3 (150-450); RBC Distribution Width CV 12.7 % (11.6-14.6); RBC Distribution Width SD 43.6 fl (35.1-43.9); Red Blood Count 3.91 M/mm3 (4.2-5.4)
--- NOTE | 2024-02-08 01:15 | ED.RN ---
Times delayed in charting d/t pts dementia and getting better understanding of LKW from daughter and events leading up to pts fall.
[2024-02-08 01:20] LABS: International Normalized Ratio 1.1; Partial Thromboplast Time 29.1 Seconds (24.1-36.2); Prothrombin Time (Protime)PT. 14.3 SECONDS (11.7-14.9)
[2024-02-08 01:29] LABS: Anion Gap 6 (5-15); BUN 15 mg/dL (7-18); BUN/Creat Ratio 20.2 RATIO (10-20); Calcium,Total 8.4 mg/dL (8.5-10.1); Chloride 105 mmol/L (98-107); Creatinine, Serum 0.74 mg/dL (0.55-1.02); EST Glomerular Filtration Rate 81 mL/min (>60); Est Glom Filt Rate - Afr Amer 98 mL/min (>60); Estimated Creatinine Clearance 48.45 ml/min; Glucose 124 mg/dL (74-106); Potassium 3.2 mmol/L (3.5-5.1); Sodium Level 140 mmol/L (136-145); Troponin-I HS 26 pg/mL (3.0-54.0)
[2024-02-08] MEDS: 0.9% Saline Lock 10 ML Syringe IV ×2 (01:35→01:37)
[2024-02-08] MEDS: TENECTEPLASE 2160 MG IV (01:36)
[2024-02-08] MEDS: 0.9% Normal Saline (1000mL) 1,000 ML 100 ML IV ×2 (02:00→04:07)
--- NOTE | 2024-02-08 02:05 | RAD_ITS ---
EXAM: XR RIGHT HIP WITH PELVIS WHEN PERFORMED, 2 OR 3 VIEWS CLINICAL INDICATION: pain TECHNIQUE: Two or three views of the right hip with pelvis when performed. 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 Bladder catheter in place. No soft tissue abnormalities. Degenerative changes of the spine and the SI joints. RAD/HIP, UNI W/ Pelvis 2-3 Views IMPRESSION: 1. Osteonecrosis of the left femoral head with suspected early subchondral collapse. 2. Acute fracture involving the right intertrochanteric region extending to involve both the lesser and greater trochanters. Electronically Signed: Jose Sullivan MD at 4:38 EST ,
--- NOTE | 2024-02-08 02:29 | HP.PCM.HOS_ITS ---
[facility] [facility] [place] of Admission: 02/08/24 Date of Service: 02/08/24 Chief Complaint: Right-sided Weakness with AMS and Aphasia with subsequent Stroke Alert. HPI Narrative MAURICE WALLACE, is a 78 F with a past medical history of essential hypertension; on atenolol, lisinopril, furosemide and spironolactone, history of thyroid cancer; s/p thyroidectomy with subsequent hypothyroidism; on levothyroxine, hyperlipidemia; on atorvastatin, former history of tobacco abuse; with subsequent COPD and chronic hypoxic respiratory failure, JAIME, CAD; s/p non-ST elevation NJ s/p multiple stents (with most recent in 2021) and CABG x 3 (~2007) on chronic ISMO, BASA and clopidogrel, history of TIA/CVA; with subsequent chronic diplopia and impaired mobility, history of dementia, history of atrial fibrillation; not on anticoagulation due to previous LGIB, history of carotid stenosis, history of chronic diastolic CHF; with preserved LVEF, history of nonrheumatic mitral regurgitation, history of nonrheumatic tricuspid valve insufficiency, history of secondary pulmonary hypertension, history of VTE, history of rectal cancer, history of external hemorrhoids, history of appendectomy, history of cholecystectomy, history of avascular necrosis of Left femoral head, chronic anemia, history of neuropathic pain; on gabapentin, history of depression with anxiety; on citalopram, bupropion, quetiapine and as needed lorazepam in the setting of history of known previous benzodiazepine dependence, history of overactive bladder; on oxybutynin, GERD; on pantoprazole and OA; with chronic back pain and DDD on meloxicam with Adult [id number] who presented to [facility] ER after her family member noted patient stood up to go to the bathroom and collapsed with subsequent severely abnormal speech, suspected Right-sided weakness and altered mental status so patient's daughter activated EMS. The daughter informed the ER physician that she has had similar symptoms in the past associated with TIA's. EMS noted atrial fibrillation and administered Narcan with no effect after blood glucose was normal at 111 mg/dL. There were no reports of associated fever, chills, nausea, vomiting, diarrhea, constipation, chest pain or shortness of breath. EMS stroke evaluation was limited because patient could not follow commands and was moving all 4 extremities but since she was acutely aphasic they called a Stroke Alert. Upon the ER physicians evaluation patient was noted to be severely encephalopathic and aphasic with signs of Right-sided weakness with a last known well at approximately [address] scan of the brain confirming no acute hemorrhage only old encephalomalacia in the Right medial occipital lobe and with all parties in agreement she was deemed to be a candidate for thrombolytic therapy. She was then treated with TNK per protocol. Also due to patient's fall x-ray of her Right hip revealed an intertrochanteric hip fracture which was discovered after TNK was administered due to patient's nonverbal status. The ER physician then contacted the orthopedist on-call who recommended Layton's traction with formal consultation pending in the AM and appreciated in advance. Finally, there were additional CT findings for an incidentally noted ~2 cm Left upper lobe nodule or mass in the setting of chronic tobacco abuse and known previous malignancies. The hospitalist service was then contacted to admit patient to the ICU for treatment under the post-TNK protocol and she was then admitted to the ICU for ongoing care for stay that is expected to extend beyond 2 midnights. [facility] Medical History History of blood clots Chronic hypoxic respiratory failure Adult failure to thrive Osteoarthritis of left hip Avascular necrosis of femur head, left Anemia Declining functional status Unable to bear weight on left lower extremity Non-rheumatic mitral regurgitation History of rectal cancer Hemorrhoids, external Carotid artery stenosis CAD (coronary artery disease) Non-ST elevation (NSTEMI) myocardial infarction TIA (transient ischemic attack) CVA (cerebral vascular accident) History of thyroid cancer Depression with anxiety DDD (degenerative disc disease), lumbar H/O: pneumonia Diastolic dysfunction Atherosclerosis of coronary artery bypass graft without angina pectoris Benzodiazepine dependence Back pain COPD (chronic obstructive pulmonary disease) Obstructive sleep apnea Anxiety and depression Hypothyroidism Non-rheumatic tricuspid valve insufficiency Secondary pulmonary arterial hypertension Nicotine dependence Hyperlipidemia Atherosclerosis of coronary artery of [place] heart with angina pectoris Essential (primary) hypertension Home Medications ?Medication ?Instructions ?Recorded ?Last Taken ?Type levothyroxine 75 mcg tablet 75 mcg PO DAILY THYROID 09/06/17 01/29/23 History citalopram 40 mg tablet 40 mg PO DAILY DEPRESSION 12/18/17 01/29/23 History atenolol 50 mg tablet 50 mg PO DAILY BLOOD PRESSURE 01/05/18 04/19/22 History atorvastatin 40 mg tablet 40 mg PO QHS CHOLESTEROL 01/05/18 01/28/23 History albuterol sulfate 0.63 mg/3 mL 0.63 mg inhalation Q4H PRN 07/14/18 1 Week Ago History solution for nebulization Congestion ~10/01/21 pantoprazole 40 mg tablet,delayed 40 mg PO BID GERD 01/16/19 04/19/22 History release oxybutynin chloride 5 mg 5 mg PO DAILY BLADDER 10/08/21 01/29/23 History tablet,extended release 24 hr clopidogrel 75 mg tablet 75 mg PO QODAY BLOOD THINNER 07/12/22 01/29/23 History melatonin 10 mg sublingual tablet 10 mg PO QHS INSOMNIA #0 tabs 02/12/23 Unknown Rx acetaminophen 500 mg tablet 1,000 mg PO Q6H PRN Pain Score 1-10 02/16/23 Unknown History furosemide 20 mg tablet (Lasix) 20 mg PO DAILY PRN DIURETIC #30 02/20/23 01/29/23 Rx tabs lorazepam 0.5 mg tablet 0.5 mg PO TID anxiety 30 days #90 02/20/23 Unknown Rx tabs bupropion HCl 150 mg tablet,12 hr 150 mg PO DAILY mental health 06/30/23 Unknown History sustained-release gabapentin 100 mg capsule 100 mg PO DAILY nerve pain 06/30/23 Unknown History meloxicam 15 mg tablet 15 mg PO DAILY pain 06/30/23 Unknown History quetiapine 50 mg tablet 50 mg PO QHS mental health 06/30/23 Unknown History guaifenesin 1,200 mg tablet, 1,200 mg PO BID cough #20 tabs 07/02/23 Unknown Rx extended release 12 hr (Mucus Relief ER) lisinopril 20 mg tablet 20 mg PO BID BLOOD PRESSURE #60 07/02/23 04/19/22 Rx tabs spironolactone 25 mg tablet 25 mg PO DAILY diuretic #30 tabs 07/02/23 Unknown Rx aspirin 81 mg tablet,delayed 81 mg PO BREAKFAST heart health 08/06/23 Unknown Rx release #90 tabs isosorbide mononitrate 30 mg 30 mg PO DAILY heart #90 tabs 08/06/23 Unknown Rx tablet,extended release 24 hr Allergy/AdvReac Type Severity Reaction Status Date / Time morphine Allergy PT UNSURE Verified 02/08/24 01:18 Penicillins Allergy Hives Verified 02/08/24 01:18 tramadol HCl (From Ultram) Allergy PT UNSURE Verified 02/08/24 01:18 bupropion (From Wellbutrin) AdvReac hallucinati Verified 02/08/24 01:18 ons Family History Father Heart disease of heart attack at age 64 Mother Cancer of cancer at age 72 CVA (cerebral vascular accident) Surgical History Hx of thyroidectomy Presence of stent in coronary artery (~10/10/21) History of left heart catheterization (10/10/21) History of appendectomy Hx of cholecystectomy History of coronary artery stent placement (10/10/21) History of coronary artery bypass graft x 3 (~2007) Social History household members: children and other details: Daughter. housing: house Smoking Status: Heavy Smoker (>10/day) details: Patient denies alcohol use substance use type: does not use ROS ROS Narrative Full review of systems was not possible due to patient's altered mental status with aphasia. Vital Signs Vital Signs Vital Signs: 02/08/24 00:57 02/08/24 00:58 02/08/24 01:07 Temperature 97.5 F L Temperature Source Temporal Pulse Rate 106 H 104 H Respiratory Rate 17 17 Blood Pressure 186/95 H Blood Pressure Mean 125 Blood Pressure Source Blood Pressure Position Blood Pressure Location Pulse Ox 95 98 95 Oxygen Delivery Method Room Air Room Air Room Air Oxygen Flow Rate (L/min) 02/08/24 01:36 02/08/24 01:36 02/08/24 01:51 Temperature 97.6 F L 97.4 F L Temperature Source Temporal Temporal Pulse Rate 105 H 100 Respiratory Rate 17 21 H Blood Pressure 159/98 H 159/98 H 147/82 H Blood Pressure Mean 118 103 Blood Pressure Source Monitor Monitor Blood Pressure Position Semi-Fowlers Semi-Fowlers Blood Pressure Location Left Arm Right Arm Pulse Ox 91 91 Oxygen Delivery Method Room Air Nasal Cannula Oxygen Flow Rate (L/min) 2 02/08/24 02:06 Temperature 97.8 F Temperature Source Temporal Pulse Rate 96 Respiratory Rate 21 H Blood Pressure 160/93 H Blood Pressure Mean 115 Blood Pressure Source Monitor Blood Pressure Position Semi-Fowlers Blood Pressure Location Left Arm Pulse Ox 91 Oxygen Delivery Method Nasal Cannula Oxygen Flow Rate (L/min) 2 Weight Weight: 132 lb 4.438 oz Body Mass Index (BMI) 25.8 Physical Exam Const alert Constitutional Narrative: Patient morbidly obese, aphasic and only can intermittently follow commands. Orientation / Consciousness: confused HEENT normocephalic, head/scalp atraumatic, hearing grossly normal bilaterally and moist oral mucous membranes Eyes PERRL and EOMs intact bilaterally Neck no lymphadenopathy and supple Resp normal respiratory effort, no retractions, no use of accessory muscles and clear to auscultation bilaterally Cardio regular rate and regular rhythm GI normal to inspection, nondistended, normoactive bowel sounds, soft to palpation, non-tender and non-distended Extremity no clubbing, cyanosis or edema Skin Skin Narrative: Patient has evidence of rash, abscess or jaundice. Neuro Neuro Narrative: Patient has persistent Right-sided weakness, aphasia and confusion even after TNK. Sensorium / Orientation: awake and alert Psych affect normal Results Medical Records Data Attestation: I reviewed the patient's medical records Lab / Micro Data Attestation: I reviewed the patient's lab results. 02/08/24 00:53 02/08/24 00:53 Labs: Laboratory Results - last 24 hr 02/08/24 00:53: WBC 8.0, RBC 3.91 L, Hgb 11.9 L, Hct 37.2, MCV 95.1, MCH 30.4, MCHC 32.0, RDW Std Deviation 43.6, RDW Coeff of John 12.7, Plt Count 271, MPV 9.9, Immature Gran % (Auto) 1.100 H, Neut % (Auto) 55.0, Lymph % (Auto) 31.5, [place] % (Auto) 7.4, Eos % (Auto) 4.4, Baso % (Auto) 0.6, Absolute Neuts (auto) 4.4, Absolute Lymphs (auto) 2.51, Nucleated RBC % 0, PT 14.3, INR 1.1, APTT 29.1, Sodium 140, Potassium 3.2 L, Chloride 105, Carbon Dioxide 30.0, Anion Gap 6, BUN 15, Creatinine 0.74, Estim Creat Clear Calc 48.45, Est GFR (MDRD) Af Amer 98, Est GFR (MDRD) Non-Af 81, BUN/Creatinine Ratio 20.2 H, Glucose 124 H, C alcium 8.4 L, Troponin I High Sens 26 Rhythm Strip Rhythm Strip: A-fib Rate: 90 Ectopy: None Imaging Radiology Impression Brain CT 02/08/24 01:03 IMPRESSION: 1. Moderate atrophy and advanced periventricular white matter ischemic changes. 2. Old lacunar infarct in the right basal ganglia and old infarct in distribution of right posterior cerebral artery. 3. Overall there has been no change from the prior study. 4. Stroke ASPECTS score 10. Electronically Signed: Jose Sullivan MD at 1:23 EST , ADDENDUM: 02/08/24 0136 IMPRESSION: 1. Moderate atrophy and advanced periventricular white matter ischemic changes. 2. Old lacunar infarct in the right basal ganglia and old infarct in distribution of right posterior cerebral artery. 3. Overall there has been no change from the prior study. 4. Stroke ASPECTS score 10. N.B. : The above Results were Read Back by Jose Sullivan MD to Britt Serrano RN, and understanding confirmed on 02/08/2024 01:29:18 (ET). Electronically Signed: Jose Sullivan MD at 1:23 EST , ADDENDUM: 02/08/24 013 IMPRESSION: undefined Head/Neck CTA 02/08/24 01:03 IMPRESSION: 1. No significant stenosis, thrombosis or aneurysm or dissection. 2. 2 cm mass at the left upper lobe is concerning neoplasm. Consider PET/CT for further investigation if this is new (by report this was not present on the prior chest CT from 10/08/2021). 3. Several prominent nonspecific mediastinal lymph nodes are identified which are ill-defined. Attention on follow-up or subsequent examination. 4. No other acute disease. 5. Ancillary findings as above. Dr. Gurmeet Carrillo was notified of findings at 10:54 PM PACIFIC TIME on 02/07/2024. N.B. : The above Results were Read Back by Jose Sullivan MD to Gurmeet Carrillo MD, and understanding confirmed on 02/08/2024 01:55:07 (ET). Electronically Signed: Jose Sullivan MD at 1:59 EST , ADDENDUM: 02/08/24 0206 IMPRESSION: 1. No significant stenosis, thrombosis or aneurysm or dissection. 2. 2 cm mass at the left upper lobe is concerning neoplasm. Consider PET/CT for further investigation if this is new (by report this was not present on the prior chest CT from 10/08/2021). 3. Several prominent nonspecific mediastinal lymph nodes are identified which are ill-defined. Attention on follow-up or subsequent examination. 4. No other acute disease. 5. Ancillary findings as above. Dr. Gurmeet Carrillo was notified of findings at 10:54 PM PACIFIC TIME on 02/07/2024. N.B. : The above Results were Read Back by Jose Sullivan MD to Gurmeet Carrillo MD, and understanding confirmed on 02/08/2024 01:55:07 (ET). Electronically Signed: Jose Sullivan MD at 1:59 EST , Assessment & Plan Assessment/Plan (1) Acute ischemic left MCA stroke: (2) Atrial fibrillation: QUALIFIERS: Atrial fibrillation type: unspecified Qualified Code(s): I48.91 - Unspecified atrial fibrillation (3) Closed intertrochanteric fracture of right hip: QUALIFIERS: Encounter type: initial encounter Fracture alignment: nondisplaced Qualified Code(s): S72.144A - Nondisplaced intertrochanteric fracture of right femur, initial encounter for closed fracture (4) Mass of upper lobe of left lung: (5) Tobacco abuse: (6) COPD (chronic obstructive pulmonary disease): QUALIFIERS: COPD type: unspecified COPD Qualified Code(s): J44.9 - Chronic obstructive pulmonary disease, unspecified (7) History of non-ST elevation myocardial infarction (NSTEMI): (8) Presence of stent in coronary artery: (9) History of coronary artery bypass graft x 3: (10) Secondary pulmonary arterial hypertension: (11) Non-rheumatic tricuspid valve insufficiency: (12) Non-rheumatic mitral regurgitation: (13) (HFpEF) heart failure with preserved ejection fraction: QUALIFIERS: Heart failure chronicity: chronic Qualified Code(s): I50.32 - Chronic diastolic (congestive) heart failure PLAN: Plan 1. Acute Left ischemic CVA; s/p TNK in ER with patient still unable to follow commands or swallow at this time in the setting of known previous TIA/CVA; with subsequent chronic diplopia and impaired mobility - Admit to ICU for treatment under the post-TNK protocol. Hold all oral medications. Patient was ordered IV Protonix and IV levothyroxine as a replacement for her inability to take her oral medications at this time. PT/OT and case management consult and treat on rounds in the a.m. for further recommendations without appreciated in advance. 2. History of Atrial Fibrillation; with patient not currently on anticoagulation due to previous LGIB likely causing #1 - Noted. We will watch closely for potential bleeding. 3. Fall with Intertrochanteric Right Hip Fracture discovered after TNK due to patient's nonverbal status complicating #1 & #2 - Orthopedist was contacted by ER physician with recommendation for Layton's traction of the Right lower extremity and with formal consultation pending in the a.m. with help appreciated in advance. 4. Incidentally noted ~2 cm mass in the Left upper lobe concerning for neoplasm with several prominent nonspecific mediastinal lymph nodes and with radiologist recommending PET/CT in the setting of known chronic Tobacco Abuse; with subsequent COPD and chronic hypoxic respiratory failure with chronic secondary pulmonary arterial hypertension compounding #1 - #3 - Patient will need to be worked up for this when she becomes more clinically stable. Tobacco cessation will also need to be recommended once patient's mental status clears. 5. Hypokalemia of 3.2 mmol/L present on admission - Give supplemental IV KCl and recheck level in AM to confirm repletion. 6. CAD; s/p non-ST elevation [place] s/p multiple stents (with most recent in 2021) and CABG x 3 (~2007) on chronic ISMO, BASA and clopidogrel in the setting of known chronic diastolic dysfunction; with preserved LVEF - Noted. We will hold all oral medications at this time. BASA and clopidogrel should only be restarted when patient is able to tolerate oral intake and after the recommended timeframe post-TNK. Echocardiogram to evaluate LVEF pending. 7. History of nonrheumatic mitral regurgitation - Noted. 8. History of nonrheumatic tricuspid valve insufficiency - Noted. 9. Essential hypertension; on atenolol, lisinopril, furosemide and spironolactone - Patient will receive standard IV as needed antihypertensives after TNK. 10. History of thyroid cancer; s/p thyroidectomy with subsequent hypothyroidism; on levothyroxine - Continue levothyroxine IV and check TSH this admission. 11. Hyperlipidemia; on atorvastatin - Hold statin until patient can tolerate oral intake safely. Check lipid profile this admission in light of #1. 12. History of carotid stenosis - Noted. 13. History of VTE - Noted. 14. History of rectal cancer - Noted. Patient may benefit from CT scan of the abdomen and pelvis once her condition improves. 15. History of external hemorrhoids - Noted. 16. History of appendectomy - Noted. 17. History of cholecystectomy - Noted. 18. History of avascular necrosis of Left femoral head - Noted. 19. Chronic anemia - Stable with hemoglobin of 11.9 g/dL and MCV of 95.1 fL present on admission. 20. History of neuropathic pain; on gabapentin - Resume gabapentin when this patient can safely tolerate oral intake. 21. History of depression with anxiety; on citalopram, bupropion, quetiapine and as needed lorazepam in the setting of history of known previous benzodiazepine dependence - Noted. Patient may require low-dose IV lorazepam prn for treatment of anxiety should it develop. We will minimize PLASTER CASTER-active medications at this time. 22. History of overactive bladder; on oxybutynin - Restart this agent when patient able to tolerate oral intake. 23. GERD; on pantoprazole - Patient started on IV PPI. 24. OA; with chronic back pain and DDD on meloxicam with Adult Krrjexf-ed-Iuyvar - Stable. 25. DVT prophylaxis - No additional blood thinning agents will be given for the recommended time after TNK. Place SCD's. Total time: Approximately (but not less than) 75 minutes. Charges/Coding Visit Charges Inpatient E&M: 28809 Init Hosp L3
--- NOTE | 2024-02-08 03:55 | MRI_ITS ---
We are attempting to reach an attending provider to discuss findings. An addendum with communication details will be sent when the communication is complete. STUDY: MRI BRAIN WITHOUT CONTRAST REASON FOR EXAM: Female, 78 years old. Acute CVA 24hrs after Tenecteplase administration TECHNIQUE: Standardized multiplanar fat and water weighted pulse sequences were obtained. COMPARISON: CT of the brain February 08, 2024 MRI of the brain November 15, 2020 FINDINGS: Mild atrophy and advanced periventricular white matter ischemic changes. Old infarct in the right temporal and occipital lobes in distribution of posterior cerebral artery. There is now restricted diffusion in the left posterior frontal and parietal lobes and tiny focus in the left temporal lobe consistent with acute ischemic changes in distribution of left middle cerebral artery Normal bilateral basal ganglia. Normal thalami. There is no extra-axial fluid accumulation. Normal flow voids within the major intracranial circulation suggesting patency by spin echo criteria. Normal sella turcica, pituitary gland, infundibular stalk, optic chiasm and hypothalamus. Normal tectal plate and pineal gland. Normal midbrain, julissa and medulla. Normal cerebellum. Normal basal cisterns. Normal bilateral temporal bones. Normal bilateral internal auditory canals. Postsurgical changes of the orbits. Mucosal thickening of the maxillary ethmoid and sphenoid sinuses bilaterally. Normal calvarium and skull base. Normal visualized soft tissue structures. Normal visualized upper cervical spine. MRI/Brain without Contrast IMPRESSION: Acute ischemic infarct in the left posterior frontal and parietal lobes with minimal involvement of the temporal lobe. Other findings as above Electronically Signed: Hany Desai MD at 16:36 EST ,
--- NOTE | 2024-02-08 03:55 | ECHOCS_ITS ---
Reason For Study: TIA/CVA Procedure This was a 2D Doppler, Color Flow transthoracic echocardiogram. The study was technically difficult. Exam performed portable in ICU/CCU. Left Ventricle Normal LV size. Moderate concentric left ventricular hypertrophy. Left ventricular systolic function is normal. The left ventricular ejection fraction is 65 %. No regional wall motion abnormalities noted. Right Ventricle Normal RV size. Normal systolic function. Atria The left atrium is moderately enlarged. The right atrium is mildly enlarged. Mitral Valve Normal mitral valve. Tricuspid Valve Normal tricuspid valve. Aortic Valve Trisinus/trileaflet aortic valve. Mild focal aortic valve calcification. Pulmonic Valve Normal pulmonic valve. Great Vessels Normal aortic root. The pulmonary artery is normal size. Normal inferior vena cava. Pericardium/Pleural No pericardial effusion. Medication Diluted definity 1.5ml given slow IV push to enhance endocardial definition. MMode/2D Measurements & Calculations LVIDd: 3.6 cm IVSd: 1.6 cm Ao root diam: 2.8 cm LVIDs: 2.6 cm LVPWd: 1.6 cm RVDd: 3.2 cm FS: 28.2 % LAV(MOD-bp): 92.7 ml LVAd ap4: 22.7 cm2 LVAd ap2: 19.2 cm2 LAV(MOD-bp) Indexed: 58.3 ml/m2 LVLd ap4: 6.8 cm LVLd ap2: 7.0 cm LAV(MOD-sp2): 91.7 ml EDV(MOD-sp4): 64.9 ml EDV(MOD-sp2): 43.7 ml LAV(MOD-sp4): 89.5 ml EDV(sp4-el): 64.6 ml EDV(sp2-el): 44.8 ml LVAs ap4: 14.0 cm2 LVAs ap2: 11.3 cm2 LVLs ap4: 5.9 cm LVLs ap2: 6.0 cm ESV(MOD-sp4): 30.7 ml ESV(MOD-sp2): 18.9 ml ESV(sp4-el): 28.3 ml ESV(sp2-el): 18.0 ml EF(MOD-sp4): 52.7 % EF(MOD-sp2): 56.7 % EF(sp4-el): 56.1 % SV(MOD-sp4): 34.2 ml SV(MOD-sp2): 24.7 ml SV(sp4-el): 36.2 ml SI(MOD-sp4): 21.5 ml/m2 SI(MOD-sp2): 15.6 ml/m2 LA A4 area: 25.9 cm2 LA dimension(2D): 4.6 cm RA A4 area: 22.0 cm2 Doppler Measurements & Calculations MV E max michael: 83.7 cm/sec Ao V2 max: 112.8 cm/sec LV V1 max: 79.6 cm/sec Ao max P.1 mmHg LV V1 max P.5 mmHg Ao V2 mean: 76.8 cm/sec LV V1 mean P.3 mmHg Ao mean P.7 mmHg LV V1 mean: 52.2 cm/sec Ao V2 VTI: 19.2 cm LV V1 VTI: 13.0 cm AV (velocity ratio): 0.68 PA V2 max: 83.7 cm/sec TR max michael: 274.3 cm/sec TR max P.1 mmHg ECHO/Echo Complete W/ Contrast Interpretation Summary Normal LV size. Moderate concentric left ventricular hypertrophy. Left ventricular systolic function is normal. The left ventricular ejection fraction is 65 %. The left atrium is moderately enlarged. The right atrium is mildly enlarged. Contrast injection was performed. Ordering Physician: Juan Jose Referring Physician: Juan Jose Performed By: Celia Shin RDCS
[2024-02-08 04:01] LABS: Amphetamine Urine VISTA NEGATIVE (<1000 ng/mL); Barbiturate Urine VISTA NEGATIVE (< 200 ng/mL); Benzodiazepine Urine VISTA NEGATIVE (< 200 ng/mL); Cocaine Urine VISTA NEGATIVE (< 300 ng/mL); Ecstacy Urine VISTA NEGATIVE (< 500 ng/mL); Methadone Urine VISTA NEGATIVE (< 300 ng/mL); PCP Urine VISTA NEGATIVE (< 25 ng/mL); THC Urine VISTA NEGATIVE (< 50 ng/mL); Vista UDS pH Range 6
--- NOTE | 2024-02-08 04:02 | ED.RN ---
Per pts daughter pt will talk to her imaginary friends frequently.
[2024-02-08] MEDS: Potassium Chloride 10mEq/100mL 10 MEQ/100 ML IV.SOLN. 100 MEQ IV BOLUS ×3 (04:07→06:05)
--- NOTE | 2024-02-08 04:15 | NURSING ---
pt arrived to room at 0345 nih completed with ed nurse, 11 nih, un able to complete nih d/t rt hip fx and pt not following commands. she asked me to help me but when asked what's wrong she states i dont know when asked what her name is she said after a few seconds give me a minute but then was unable to tell her name. she will not follow my fingers with eyes but will occ look to the right. she states my fingers are moving when they are not.
--- NOTE | 2024-02-08 04:40 | NURSING ---
dr Jose on unit to see pt, told him that she is in pain and that her hr will occ spike to 130's stays low one 100's
[2024-02-08 06:12] LABS: Alcohol, Blood (Medical)-Serum < 3.0 mg/dL
[2024-02-08 06:19] LABS: Cholesterol 106 mg/dL (200); High Density Lipoprotein 28 mg/dL; Triglycerides 104 mg/dL; Very Low Density Lipoprotein 21 mg/dL (5-40)
--- NOTE | 2024-02-08 07:06 | NURSING ---
Addendum entered by Leslie Mcmillan 02/08/24 08:28: Also EWA d/t patients severe aphasia Original Note: EWA best gaze and sensory on NIH d/t patient not able to follow commands appropriately.
[2024-02-08 07:38] LABS: Hemoglobin A1c 5.4 % (3.8-5.6)
--- NOTE | 2024-02-08 07:53 | EX.PCM.CONCC ---
Assessment & Plan Assessment/Plan (1) Closed intertrochanteric fracture of right hip: QUALIFIERS: Encounter type: initial encounter Fracture alignment: nondisplaced Qualified Code(s): S72.144A - Nondisplaced intertrochanteric fracture of right femur, initial encounter for closed fracture (2) Atrial fibrillation: QUALIFIERS: Atrial fibrillation type: unspecified Qualified Code(s): I48.91 - Unspecified atrial fibrillation PLAN: Plan RECOMMENDATIONS: 1. Continue routine monitoring in ICU per protocol following tenecteplase. 2. Follow-up head imaging 24 hours post administration. 3. Echocardiogram is ordered. 4. Recommend obtaining dedicated contrasted chest CT. 5. PT/OT evaluations tomorrow. 6. Speech therapy evaluation is pending. IMPRESSIONS: 1. Acute CVA status post tenecteplase The patient initially presented to the hospital with altered mental status and aphasia, concerning for CVA, for which tenecteplase was administered. Plan to obtain follow-up head imaging per protocol, along with MRI brain tomorrow. Echocardiogram is currently pending. Neurology is following. PT/OT evaluations tomorrow. Speech therapy to evaluate the patient prior to advancement of diet. 2. Lung nodule On CTA head and neck, the patient was noted to have a 2 cm lung nodule in the left upper lobe, which was not present on CTA in November 2021. In light of her tobacco abuse history, these findings would be concerning for potential malignancy. Accordingly, I would recommend that we obtain a dedicated chest CT with contrast to evaluate for concurrent mediastinal lymphadenopathy. The patient is not a candidate for any additional invasive workup, given her recent administration of tenecteplase. Ultimately, further workup can be coordinated on an outpatient basis after discharge. 3. Right hip intertrochanteric fracture Orthopedic surgery evaluation is currently pending. 4. History of atrial fibrillation with RVR/coronary artery disease status post CABG/history of tobacco dependency/hypertension/hyperlipidemia Complicates care, management, recovery and prognosis. Continue home medications as indicated. This note was generated with Downstreamation software. It may contain incorrect words, spelling, and punctuation that were not noted in checking the note before signing. HPI Consult Data Date of Consult: 02/08/24 HPI Narrative Reason for Consultation: CVA status post TNK HPI Narrative: The patient is a 78-year-old female, with a history as outlined below, who presented to the emergency department on February 07 with altered mental status and expressive aphasia. The patient has a known history of hypertension, hypothyroidism, questionable COPD, obstructive sleep apnea, coronary artery disease status post CABG, atrial fibrillation and history of tobacco dependency. On presentation to the emergency department, the patient was documented to be afebrile and hypertensive with a blood pressure of 186/95 mmHg. Laboratory evaluation revealed a normal white blood cell count. Coagulation profile was within normal limits. Chemistry profile was notable for a potassium of 3.2. Creatinine was within normal limits. Toxicology screen was negative. Alcohol level was negative. In light of the patient's presenting symptoms, a stroke alert was called. CT head revealed moderate atrophy with periventricular white matter ischemic changes and an old lacunar infarct in the right basal ganglia. Head and neck CTA demonstrated no significant stenosis, but did make incidental note of a 2 cm mass in the left upper lobe of the lung. Hip x-ray demonstrated an acute fracture involving the right intertrochanteric region. Neurology consultation was obtained and the decision was made to administer tenecteplase. The patient was admitted to the medical intensive care unit per protocol. [facility] Medical History History of blood clots Chronic hypoxic respiratory failure Adult failure to thrive Osteoarthritis of left hip Avascular necrosis of femur head, left Anemia Declining functional status Unable to bear weight on left lower extremity Non-rheumatic mitral regurgitation History of rectal cancer Hemorrhoids, external Carotid artery stenosis CAD (coronary artery disease) Non-ST elevation (NSTEMI) myocardial infarction TIA (transient ischemic attack) CVA (cerebral vascular accident) History of thyroid cancer Depression with anxiety DDD (degenerative disc disease), lumbar H/O: pneumonia Diastolic dysfunction Atherosclerosis of coronary artery bypass graft without angina pectoris Benzodiazepine dependence Back pain COPD (chronic obstructive pulmonary disease) Obstructive sleep apnea Anxiety and depression Hypothyroidism Non-rheumatic tricuspid valve insufficiency Secondary pulmonary arterial hypertension Nicotine dependence Hyperlipidemia Atherosclerosis of coronary artery of [place] heart with angina pectoris Essential (primary) hypertension Home Medications ?Medication ?Instructions ?Recorded ?Last Taken ?Type levothyroxine 75 mcg tablet 75 mcg PO DAILY THYROID 09/06/17 01/29/23 History citalopram 40 mg tablet 40 mg PO DAILY DEPRESSION 12/18/17 01/29/23 History atenolol 50 mg tablet 50 mg PO DAILY BLOOD PRESSURE 01/05/18 04/19/22 History atorvastatin 40 mg tablet 40 mg PO QHS CHOLESTEROL 01/05/18 01/28/23 History albuterol sulfate 0.63 mg/3 mL 0.63 mg inhalation Q4H PRN 07/14/18 1 Week Ago History solution for nebulization Congestion ~10/01/21 pantoprazole 40 mg tablet,delayed 40 mg PO BID GERD 01/16/19 04/19/22 History release oxybutynin chloride 5 mg 5 mg PO DAILY BLADDER 10/08/21 01/29/23 History tablet,extended release 24 hr clopidogrel 75 mg tablet 75 mg PO QODAY BLOOD THINNER 07/12/22 01/29/23 History melatonin 10 mg sublingual tablet 10 mg PO QHS INSOMNIA #0 tabs 02/12/23 Unknown Rx acetaminophen 500 mg tablet 1,000 mg PO Q6H PRN Pain Score 1-10 02/16/23 Unknown History furosemide 20 mg tablet (Lasix) 20 mg PO DAILY PRN DIURETIC #30 02/20/23 01/29/23 Rx tabs lorazepam 0.5 mg tablet 0.5 mg PO TID anxiety 30 days #90 02/20/23 Unknown Rx tabs bupropion HCl 150 mg tablet,12 hr 150 mg PO DAILY mental health 06/30/23 Unknown History sustained-release gabapentin 100 mg capsule 100 mg PO DAILY nerve pain 06/30/23 Unknown History meloxicam 15 mg tablet 15 mg PO DAILY pain 06/30/23 Unknown History quetiapine 50 mg tablet 50 mg PO QHS mental health 06/30/23 Unknown History guaifenesin 1,200 mg tablet, 1,200 mg PO BID cough #20 tabs 07/02/23 Unknown Rx extended release 12 hr (Mucus Relief ER) lisinopril 20 mg tablet 20 mg PO BID BLOOD PRESSURE #60 07/02/23 04/19/22 Rx tabs spironolactone 25 mg tablet 25 mg PO DAILY diuretic #30 tabs 07/02/23 Unknown Rx aspirin 81 mg tablet,delayed 81 mg PO BREAKFAST heart health 08/06/23 Unknown Rx release #90 tabs isosorbide mononitrate 30 mg 30 mg PO DAILY heart #90 tabs 08/06/23 Unknown Rx tablet,extended release 24 hr Allergy/AdvReac Type Severity Reaction Status Date / Time morphine Allergy PT UNSURE Verified 02/08/24 01:18 Penicillins Allergy Hives Verified 02/08/24 01:18 tramadol HCl (From Ultram) Allergy PT UNSURE Verified 02/08/24 01:18 bupropion (From Wellbutrin) AdvReac hallucinati Verified 02/08/24 01:18 ons Family History Father Heart disease of heart attack at age 64 Mother Cancer of cancer at age 72 CVA (cerebral vascular accident) Surgical History Hx of thyroidectomy Presence of stent in coronary artery (~10/10/21) History of left heart catheterization (10/10/21) History of appendectomy Hx of cholecystectomy History of coronary artery stent placement (10/10/21) History of coronary artery bypass graft x 3 (~2007) Social History household members: children and other details: Daughter. housing: house Smoking Status: Heavy Smoker (>10/day) details: Patient denies alcohol use substance use type: does not use ROS ROS Narrative 10 systems were reviewed with pertinent positives as noted in the HPI above. Physical Exam Const alert and no apparent distress Constitutional Narrative: Resting comfortably in bed. General Appearance: cooperative HEENT normocephalic and head/scalp atraumatic Eyes EOMs intact bilaterally and conjunctivae normal Neck supple General: trachea midline Chest inspection of chest normal Resp normal respiratory effort Auscultation: diminished lung sounds Cardio S1 normal heart sound and S2 normal heart sound Rate: tachycardic Rhythm: abnormal rhythm GI normal to inspection, nondistended, normoactive bowel sounds Extremity no clubbing, cyanosis or edema Extremity Narrative: Right lower extremity currently in traction. Skin no rashes or lesions noted Neuro CN's II-XII intact bilaterally Neuro Narrative: Significant aphasia noted. Psych Mood & Affect: flat affect Lab / Micro Data 02/08/24 00:53 02/08/24 00:53 Labs: Laboratory Results - last 24 hr 02/08/24 00:53: WBC 8.0, RBC 3.91 L, Hgb 11.9 L, Hct 37.2, MCV 95.1, MCH 30.4, MCHC 32.0, RDW Std Deviation 43.6, RDW Coeff of John 12.7, Plt Count 271, MPV 9.9, Immature Gran % (Auto) 1.100 H, Neut % (Auto) 55.0, Lymph % (Auto) 31.5, Will % (Auto) 7.4, Eos % (Auto) 4.4, Baso % (Auto) 0.6, Absolute Neuts (auto) 4.4, Absolute Lymphs (auto) 2.51, Nucleated RBC % 0, PT 14.3, INR 1.1, APTT 29.1, Sodium 140, Potassium 3.2 L, Chloride 105, Carbon Dioxide 30.0, Anion Gap 6, BUN 15, Creatinine 0.74, Estim Creat Clear Calc 48.45, Est GFR (MDRD) Af Amer 98, Est GFR (MDRD) Non-Af 81, BUN/Creatinine Ratio 20.2 H, Glucose 124 H, Calcium 8.4 L, Troponin I High Sens 26 02/08/24 01:38: Urine Opiates Screen NEGATIVE, Urine Methadone Screen NEGATIVE, Ur Barbiturates Screen NEGATIVE, Ur Phencyclidine Scrn NEGATIVE, Ur Amphetamines Screen NEGATIVE, MDMA (Ecstasy) Screen NEGATIVE, U Benzodiazepines Scrn NEGATIVE, Urine Cocaine Screen NEGATIVE, U Cannabinoids Screen NEGATIVE, Ur Drug Screen Comment 02/08/24 05:35: Hemoglobin A1c 5.4, Triglycerides 104 02/08/24 05:35: Triglycerides Cancelled, Cholesterol 106 02/08/24 05:35: Cholesterol Cancelled, LDL Cholesterol 57 02/08/24 05:35: LDL Cholesterol Cancelled, VLDL Cholesterol 21 02/08/24 05:35: VLDL Cholesterol Cancelled, HDL Cholesterol 28 L 02/08/24 05:35: HDL Cholesterol Cancelled, TSH 2.950, Ethyl Alcohol < 3.0 Rhythm Strip Rhythm Strip: A-fib Rate: 90 Ectopy: None Imaging Radiology Impression Brain CT 02/08/24 01:03 IMPRESSION: 1. Moderate atrophy and advanced periventricular white matter ischemic changes. 2. Old lacunar infarct in the right basal ganglia and old infarct in distribution of right posterior cerebral artery. 3. Overall there has been no change from the prior study. 4. Stroke ASPECTS score 10. Electronically Signed: Jose Sullivan MD at 1:23 EST , ADDENDUM: 02/08/24 0136 IMPRESSION: 1. Moderate atrophy and advanced periventricular white matter ischemic changes. 2. Old lacunar infarct in the right basal ganglia and old infarct in distribution of right posterior cerebral artery. 3. Overall there has been no change from the prior study. 4. Stroke ASPECTS score 10. N.B. : The above Results were Read Back by Jose Sullivan MD to Britt Serrano RN, and understanding confirmed on 02/08/2024 01:29:18 (ET). Electronically Signed: Jose Sullivan MD at 1:23 EST , ADDENDUM: 02/08/248 IMPRESSION: undefined Head/Neck CTA 02/08/24 01:03 IMPRESSION: 1. No significant stenosis, thrombosis or aneurysm or dissection. 2. 2 cm mass at the left upper lobe is concerning neoplasm. Consider PET/CT for further investigation if this is new (by report this was not present on the prior chest CT from 10/08/2021). 3. Several prominent nonspecific mediastinal lymph nodes are identified which are ill-defined. Attention on follow-up or subsequent examination. 4. No other acute disease. 5. Ancillary findings as above. Dr. Gurmeet Carrillo was notified of findings at 10:54 PM PACIFIC TIME on 02/07/2024. N.B. : The above Results were Read Back by Jose Sullivan MD to Gurmeet Carrillo MD, and understanding confirmed on 02/08/2024 01:55:07 (ET). Electronically Signed: Jose Sullivan MD at 1:59 EST , ADDENDUM: 02/08/24 0206 IMPRESSION: 1. No significant stenosis, thrombosis or aneurysm or dissection. 2. 2 cm mass at the left upper lobe is concerning neoplasm. Consider PET/CT for further investigation if this is new (by report this was not present on the prior chest CT from 10/08/2021). 3. Several prominent nonspecific mediastinal lymph nodes are identified which are ill-defined. Attention on follow-up or subsequent examination. 4. No other acute disease. 5. Ancillary findings as above. Dr. Gurmeet Carrillo was notified of findings at 10:54 PM PACIFIC TIME on 02/07/2024. N.B. : The above Results were Read Back by Jose Sullivan MD to Gurmeet Carrillo MD, and understanding confirmed on 02/08/2024 01:55:07 (ET). Electronically Signed: Jose Sullivan MD at 1:59 EST , Hip/Pelvis X-Ray 02/08/24 02:05 IMPRESSION: 1. Osteonecrosis of the left femoral head with suspected early subchondral collapse. 2. Acute fracture involving the right intertrochanteric region extending to involve both the lesser and greater trochanters. Electronically Signed: Jose Sullivan MD at 4:38 EST , Charges/Coding Visit Charges Inpatient E&M: 29532 Init Hosp L3
[2024-02-08] MEDS: Pantoprazole Sodium 40 MG in 0.9% Normal Saline (100mL MB+) 100 ML 330 MG IV (09:54)
--- NOTE | 2024-02-08 10:00 | NURSING ---
Patient was able to follow commands to complete best gaze portion of NIH at this time- see results.
--- NOTE | 2024-02-08 10:43 | CON.PCM_ITS ---
Assessment & Plan Assessment/Plan (1) Closed intertrochanteric fracture of right hip: QUALIFIERS: Encounter type: initial encounter Fracture alignment: nondisplaced Qualified Code(s): S72.144A - Nondisplaced intertrochanteric fracture of right femur, initial encounter for closed fracture PLAN: Plan Right hip intertrochanteric femur fracture complicated with recent CVA received clot Gabriel Spoke with patient as well as her daughter Santa who is POA consent signed for right hip cephalomedullary fixation we will proceed when medically cleared I did speak with her medical team and at this point they think she will be okay for surgery tomorrow I went ahead and added her on the schedule for tomorrow afternoon 02/09/2024 Antibiotics and tranexamic acid on-call to the OR HPI Consult Data Date of Consult: 02/08/24 HPI Narrative HPI Narrative: MAURICE WALLACE, is a 78 F who presents after ground-level fall with concurrent CVA. Sustained right hip intertrochanteric femur fracture demonstrated on x-ray [facility] Medical History History of blood clots Chronic hypoxic respiratory failure Adult failure to thrive Osteoarthritis of left hip Avascular necrosis of femur head, left Anemia Declining functional status Unable to bear weight on left lower extremity Non-rheumatic mitral regurgitation History of rectal cancer Hemorrhoids, external Carotid artery stenosis CAD (coronary artery disease) Non-ST elevation (NSTEMI) myocardial infarction TIA (transient ischemic attack) CVA (cerebral vascular accident) History of thyroid cancer Depression with anxiety DDD (degenerative disc disease), lumbar H/O: pneumonia Diastolic dysfunction Atherosclerosis of coronary artery bypass graft without angina pectoris Benzodiazepine dependence Back pain COPD (chronic obstructive pulmonary disease) Obstructive sleep apnea Anxiety and depression Hypothyroidism Non-rheumatic tricuspid valve insufficiency Secondary pulmonary arterial hypertension Nicotine dependence Hyperlipidemia Atherosclerosis of coronary artery of [place] heart with angina pectoris Essential (primary) hypertension Home Medications ?Medication ?Instructions ?Recorded ?Last Taken ?Type levothyroxine 75 mcg tablet 75 mcg PO DAILY THYROID 09/06/17 01/29/23 History citalopram 40 mg tablet 40 mg PO DAILY DEPRESSION 12/18/17 01/29/23 History atenolol 50 mg tablet 50 mg PO DAILY BLOOD PRESSURE 01/05/18 04/19/22 History atorvastatin 40 mg tablet 40 mg PO QHS CHOLESTEROL 01/05/18 01/28/23 History albuterol sulfate 0.63 mg/3 mL 0.63 mg inhalation Q4H PRN 07/14/18 1 Week Ago History solution for nebulization Congestion ~10/01/21 pantoprazole 40 mg tablet,delayed 40 mg PO BID GERD 01/16/19 04/19/22 History release oxybutynin chloride 5 mg 5 mg PO DAILY BLADDER 10/08/21 01/29/23 History tablet,extended release 24 hr clopidogrel 75 mg tablet 75 mg PO QODAY BLOOD THINNER 07/12/22 01/29/23 History melatonin 10 mg sublingual tablet 10 mg PO QHS INSOMNIA #0 tabs 02/12/23 Unknown Rx acetaminophen 500 mg tablet 1,000 mg PO Q6H PRN Pain Score 1-10 02/16/23 Unknown History furosemide 20 mg tablet (Lasix) 20 mg PO DAILY PRN DIURETIC #30 02/20/23 01/29/23 Rx tabs lorazepam 0.5 mg tablet 0.5 mg PO TID anxiety 30 days #90 02/20/23 Unknown Rx tabs bupropion HCl 150 mg tablet,12 hr 150 mg PO DAILY mental health 06/30/23 Unknown History sustained-release gabapentin 100 mg capsule 100 mg PO DAILY nerve pain 06/30/23 Unknown History meloxicam 15 mg tablet 15 mg PO DAILY pain 06/30/23 Unknown History quetiapine 50 mg tablet 50 mg PO QHS mental health 06/30/23 Unknown History guaifenesin 1,200 mg tablet, 1,200 mg PO BID cough #20 tabs 07/02/23 Unknown Rx extended release 12 hr (Mucus Relief ER) lisinopril 20 mg tablet 20 mg PO BID BLOOD PRESSURE #60 07/02/23 04/19/22 Rx tabs spironolactone 25 mg tablet 25 mg PO DAILY diuretic #30 tabs 07/02/23 Unknown Rx aspirin 81 mg tablet,delayed 81 mg PO BREAKFAST heart health 08/06/23 Unknown Rx release #90 tabs isosorbide mononitrate 30 mg 30 mg PO DAILY heart #90 tabs 08/06/23 Unknown Rx tablet,extended release 24 hr Allergy/AdvReac Type Severity Reaction Status Date / Time morphine Allergy PT UNSURE Verified 02/08/24 01:18 Penicillins Allergy Hives Verified 02/08/24 01:18 tramadol HCl (From Ultram) Allergy PT UNSURE Verified 02/08/24 01:18 bupropion (From Wellbutrin) AdvReac hallucinati Verified 02/08/24 01:18 ons Family History Father Heart disease of heart attack at age 64 Mother Cancer of cancer at age 72 CVA (cerebral vascular accident) Surgical History Hx of thyroidectomy Presence of stent in coronary artery (~10/10/21) History of left heart catheterization (10/10/21) History of appendectomy Hx of cholecystectomy History of coronary artery stent placement (10/10/21) History of coronary artery bypass graft x 3 (~2007) Social History household members: children and other details: Daughter. housing: house Smoking Status: Heavy Smoker (>10/day) details: Patient denies alcohol use substance use type: does not use Physical Exam Const alert, oriented x3 and no apparent distress General Appearance: cooperative Extremity Extremity Narrative: Right hip no erythema or ecchymosis or open wound compartments soft she is able to wiggle her toes palpable pedal pulse. Compartments soft Lab / Micro Data 02/08/24 00:53 02/08/24 00:53 Labs: Laboratory Results - last 24 hr 02/08/24 00:53: WBC 8.0, RBC 3.91 L, Hgb 11.9 L, Hct 37.2, MCV 95.1, MCH 30.4, MCHC 32.0, RDW Std Deviation 43.6, RDW Coeff of John 12.7, Plt Count 271, MPV 9.9, Immature Gran % (Auto) 1.100 H, Neut % (Auto) 55.0, Lymph % (Auto) 31.5, [place] % (Auto) 7.4, Eos % (Auto) 4.4, Baso % (Auto) 0.6, Absolute Neuts (auto) 4.4, Absolute Lymphs (auto) 2.51, Nucleated RBC % 0, PT 14.3, INR 1.1, APTT 29.1, Sodium 140, Potassium 3.2 L, Chloride 105, Carbon Dioxide 30.0, Anion Gap 6, BUN 15, Creatinine 0.74, Estim Creat Clear Calc 48.45, Est GFR (MDRD) Af Amer 98, Est GFR (MDRD) Non-Af 81, BUN/Creatinine Ratio 20.2 H, Glucose 124 H, C alcium 8.4 L, Troponin I High Sens 26 02/08/24 01:38: Urine Opiates Screen NEGATIVE, Urine Methadone Screen NEGATIVE, Ur Barbiturates Screen NEGATIVE, Ur Phencyclidine Scrn NEGATIVE, Ur Amphetamines Screen NEGATIVE, MDMA (Ecstasy) Screen NEGATIVE, U Benzodiazepines Scrn NEGATIVE, Urine Cocaine Screen NEGATIVE, U Cannabinoids Screen NEGATIVE, Ur Drug Screen Comment 02/08/24 05:35: Hemoglobin A1c 5.4, Triglycerides 104 02/08/24 05:35: Triglycerides Cancelled, Cholesterol 106 02/08/24 05:35: Cholesterol Cancelled, LDL Cholesterol 57 02/08/24 05:35: LDL Cholesterol Cancelled, VLDL Cholesterol 21 02/08/24 05:35: VLDL Cholesterol Cancelled, HDL Cholesterol 28 L 02/08/24 05:35: HDL Cholesterol Cancelled, TSH 2.950, Ethyl Alcohol < 3.0 Rhythm Strip Rhythm Strip: A-fib Rate: 90 Ectopy: None Imaging Radiology Impression Brain CT 02/08/24 01:03 IMPRESSION: 1. Moderate atrophy and advanced periventricular white matter ischemic changes. 2. Old lacunar infarct in the right basal ganglia and old infarct in distribution of right posterior cerebral artery. 3. Overall there has been no change from the prior study. 4. Stroke ASPECTS score 10. Electronically Signed: Jose Sullivan MD at 1:23 EST , ADDENDUM: 02/08/24 0136 IMPRESSION: 1. Moderate atrophy and advanced periventricular white matter ischemic changes. 2. Old lacunar infarct in the right basal ganglia and old infarct in distribution of right posterior cerebral artery. 3. Overall there has been no change from the prior study. 4. Stroke ASPECTS score 10. N.B. : The above Results were Read Back by Jose Sullivan MD to Britt Serrano RN, and understanding confirmed on 02/08/2024 01:29:18 (ET). Electronically Signed: Jose Sullivan MD at 1:23 EST , ADDENDUM: 02/08/24 0138 IMPRESSION: undefined Head/Neck CTA 02/08/24 01:03 IMPRESSION: 1. No significant stenosis, thrombosis or aneurysm or dissection. 2. 2 cm mass at the left upper lobe is concerning neoplasm. Consider PET/CT for further investigation if this is new (by report this was not present on the prior chest CT from 10/08/2021). 3. Several prominent nonspecific mediastinal lymph nodes are identified which are ill-defined. Attention on follow-up or subsequent examination. 4. No other acute disease. 5. Ancillary findings as above. Dr. Gurmeet Carrillo was notified of findings at 10:54 PM PACIFIC TIME on 02/07/2024. N.B. : The above Results were Read Back by Jose Sullivan MD to Gurmeet Carrillo MD, and understanding confirmed on 02/08/2024 01:55:07 (ET). Electronically Signed: Jose Sullivan MD at 1:59 EST , ADDENDUM: 02/08/24 0206 IMPRESSION: 1. No significant stenosis, thrombosis or aneurysm or dissection. 2. 2 cm mass at the left upper lobe is concerning neoplasm. Consider PET/CT for further investigation if this is new (by report this was not present on the prior chest CT from 10/08/2021). 3. Several prominent nonspecific mediastinal lymph nodes are identified which are ill-defined. Attention on follow-up or subsequent examination. 4. No other acute disease. 5. Ancillary findings as above. Dr. Gurmeet Carrillo was notified of findings at 10:54 PM PACIFIC TIME on 02/07/2024. N.B. : The above Results were Read Back by Jose Sullivan MD to Gurmeet Carrillo MD, and understanding confirmed on 02/08/2024 01:55:07 (ET). Electronically Signed: Jose Sullivan MD at 1:59 EST , Hip/Pelvis X-Ray 02/08/24 02:05 IMPRESSION: 1. Osteonecrosis of the left femoral head with suspected early subchondral collapse. 2. Acute fracture involving the right intertrochanteric region extending to involve both the lesser and greater trochanters. Electronically Signed: Jose Sullivan MD at 4:38 EST ,
--- NOTE | 2024-02-08 10:53 | CASEMGMT ---
Social Work Pt has a living will and health care POA on file naming her daughter Leigha Kim as HCPOA. GIANNI Sotelo
--- NOTE | 2024-02-08 11:19 | CASEMGMT ---
Social Work PHQ9 depression screen indicated due to stroke. Pt is unable to complete at this time due to severe aphasia, unable to follow directions. GIANNI Sotelo
[2024-02-08] MEDS: CLARIFY ORDER 1 EACH NOTE (12:07)
--- NOTE | 2024-02-08 12:18 | CASEMGMT ---
Pt unable to answer questions at this time due to dementia and confusion. RN FITZ called Pt daughter and HCPOAShyanne. Left message to call RN FITZ back to discuss DC planning.
--- NOTE | 2024-02-08 13:29 | CON.PCM.NE_ITS ---
Assessment and Plan: Neuro Assessment/Plan MAURICE WALLACE is a 78 F with a past medical history of HTN, Afib not on AC, being evaluated by Teleneurology for acute ischemic stroke, received TNKA Plan: Cont post TNK protocol Neurological checks q1h Permissive HTN SBP<180 and DBP<[address] head 24 post TNKA MRI brain wo cont pt was not on anticoagulation due hx of GI bleed, GI could be consulted to assess in evaluating the risks of restarting AC, we will discuss the timing with the primary team pending MRI Pt has hip Fx and scheduled for OR tomorrow, if the Surgery deemed urgent, I recommend maintain MAP>65 and avoid hypotension during induction and anaesthesia in the setting of acute ischemic stroke. if she is not able to be anticoagulated Watchman device could be considered. PT/OT Speech eval vascular risks modifications HPI Consult Data Date of Consult: 02/08/24 HPI Narrative HPI Narrative: MAURICE WALLACE, is a 78 woman with hx of HTN, HLD, Thyroid ca s/p thyroidectomy and subsequent hypothyrodism, COPD, CAD and AFIB not on AC due hx of GI bleed. presented as stroke activation. she had aphasia and right side weakness. she was evaluated by stroke Neurology, CT head negative, CTA with no LVO, NIHSS was 13 she was given TNKA and admitted to the MICU. [facility] Medical History History of blood clots Chronic hypoxic respiratory failure Adult failure to thrive Osteoarthritis of left hip Avascular necrosis of femur head, left Anemia Declining functional status Unable to bear weight on left lower extremity Non-rheumatic mitral regurgitation History of rectal cancer Hemorrhoids, external Carotid artery stenosis CAD (coronary artery disease) Non-ST elevation (NSTEMI) myocardial infarction TIA (transient ischemic attack) CVA (cerebral vascular accident) History of thyroid cancer Depression with anxiety DDD (degenerative disc disease), lumbar H/O: pneumonia Diastolic dysfunction Atherosclerosis of coronary artery bypass graft without angina pectoris Benzodiazepine dependence Back pain COPD (chronic obstructive pulmonary disease) Obstructive sleep apnea Anxiety and depression Hypothyroidism Non-rheumatic tricuspid valve insufficiency Secondary pulmonary arterial hypertension Nicotine dependence Hyperlipidemia Atherosclerosis of coronary artery of [place] heart with angina pectoris Essential (primary) hypertension Home Medications ?Medication ?Instructions ?Recorded ?Last Taken ?Type levothyroxine 75 mcg tablet 75 mcg PO DAILY THYROID 09/06/17 01/29/23 History citalopram 40 mg tablet 40 mg PO DAILY DEPRESSION 12/18/17 01/29/23 History atenolol 50 mg tablet 50 mg PO DAILY BLOOD PRESSURE 01/05/18 04/19/22 History atorvastatin 40 mg tablet 40 mg PO QHS CHOLESTEROL 01/05/18 01/28/23 History albuterol sulfate 0.63 mg/3 mL 0.63 mg inhalation Q4H PRN 07/14/18 1 Week Ago History solution for nebulization Congestion ~10/01/21 pantoprazole 40 mg tablet,delayed 40 mg PO BID GERD 01/16/19 04/19/22 History release oxybutynin chloride 5 mg 5 mg PO DAILY BLADDER 10/08/21 01/29/23 History tablet,extended release 24 hr clopidogrel 75 mg tablet 75 mg PO QODAY BLOOD THINNER 07/12/22 01/29/23 History melatonin 10 mg sublingual tablet 10 mg PO QHS INSOMNIA #0 tabs 02/12/23 Unknown Rx acetaminophen 500 mg tablet 1,000 mg PO Q6H PRN Pain Score 1-10 02/16/23 Unknown History furosemide 20 mg tablet (Lasix) 20 mg PO DAILY PRN DIURETIC #30 02/20/23 01/29/23 Rx tabs lorazepam 0.5 mg tablet 0.5 mg PO TID anxiety 30 days #90 02/20/23 Unknown Rx tabs bupropion HCl 150 mg tablet,12 hr 150 mg PO DAILY mental health 06/30/23 Unknown History sustained-release gabapentin 100 mg capsule 100 mg PO DAILY nerve pain 06/30/23 Unknown History meloxicam 15 mg tablet 15 mg PO DAILY pain 06/30/23 Unknown History quetiapine 50 mg tablet 50 mg PO QHS mental health 06/30/23 Unknown History guaifenesin 1,200 mg tablet, 1,200 mg PO BID cough #20 tabs 07/02/23 Unknown Rx extended release 12 hr (Mucus Relief ER) lisinopril 20 mg tablet 20 mg PO BID BLOOD PRESSURE #60 07/02/23 04/19/22 Rx tabs spironolactone 25 mg tablet 25 mg PO DAILY diuretic #30 tabs 07/02/23 Unknown Rx aspirin 81 mg tablet,delayed 81 mg PO BREAKFAST heart health 08/06/23 Unknown Rx release #90 tabs isosorbide mononitrate 30 mg 30 mg PO DAILY heart #90 tabs 08/06/23 Unknown Rx tablet,extended release 24 hr Allergy/AdvReac Type Severity Reaction Status Date / Time morphine Allergy PT UNSURE Verified 02/08/24 01:18 Penicillins Allergy Hives Verified 02/08/24 01:18 tramadol HCl (From Ultram) Allergy PT UNSURE Verified 02/08/24 01:18 bupropion (From Wellbutrin) AdvReac hallucinati Verified 02/08/24 01:18 ons Family History Father Heart disease of heart attack at age 64 Mother Cancer of cancer at age 72 CVA (cerebral vascular accident) Surgical History Hx of thyroidectomy Presence of stent in coronary artery (~10/10/21) History of left heart catheterization (10/10/21) History of appendectomy Hx of cholecystectomy History of coronary artery stent placement (10/10/21) History of coronary artery bypass graft x 3 (~2007) Social History household members: children and other details: Daughter. housing: house Smoking Status: Heavy Smoker (>10/day) details: Patient denies alcohol use substance use type: does not use Vital Signs Vital Signs Vital Signs: 02/08/24 00:57 02/08/24 00:58 02/08/24 01:07 Temperature 97.5 F L Temperature Source Temporal Pulse Rate 106 H 104 H Respiratory Rate 17 17 Respiratory Effort Respiratory Depth Respiratory Pattern Blood Pressure 186/95 H Blood Pressure Mean 125 Blood Pressure Source Blood Pressure Position Blood Pressure Location Pulse Ox 95 98 95 Oxygen Delivery Method Room Air Room Air Room Air Oxygen Flow Rate (L/min) 02/08/24 01:36 02/08/24 01:36 02/08/24 01:51 Temperature 97.6 F L 97.4 F L Temperature Source Temporal Temporal Pulse Rate 105 H 100 Respiratory Rate 17 21 H Respiratory Effort Respiratory Depth Respiratory Pattern Blood Pressure 159/98 H 159/98 H 147/82 H Blood Pressure Mean 118 103 Blood Pressure Source Monitor Monitor Blood Pressure Position Semi-Fowlers Semi-Fowlers Blood Pressure Location Left Arm Right Arm Pulse Ox 91 91 Oxygen Delivery Method Room Air Nasal Cannula Oxygen Flow Rate (L/min) 2 02/08/24 02:06 02/08/24 02:21 02/08/24 02:36 Temperature 97.8 F 97.7 F L 97.7 F L Temperature Source Temporal Temporal Oral Pulse Rate 96 117 H 106 H Respiratory Rate 21 H 17 17 Respiratory Effort Respiratory Depth Respiratory Pattern Blood Pressure 160/93 H 163/101 H 151/92 H Blood Pressure Mean 115 121 111 Blood Pressure Source Monitor Monitor Monitor Blood Pressure Position Semi-Fowlers Semi-Fowlers Semi-Fowlers Blood Pressure Location Left Arm Left Arm Left Arm Pulse Ox 91 92 94 Oxygen Delivery Method Nasal Cannula Nasal Cannula Nasal Cannula Oxygen Flow Rate (L/min) 2 2 2 02/08/24 02:51 02/08/24 03:00 02/08/24 03:06 Temperature 97.5 F L 97.7 F L Temperature Source Temporal Pulse Rate 99 89 95 Respiratory Rate 21 H 17 16 Respiratory Effort Respiratory Depth Respiratory Pattern Blood Pressure 137/60 H 132/66 H 133/100 H Blood Pressure Mean 85 88 111 Blood Pressure Source Monitor Blood Pressure Position Semi-Fowlers Blood Pressure Location Left Arm Pulse Ox 93 96 95 Oxygen Delivery Method Nasal Cannula Nasal Cannula Oxygen Flow Rate (L/min) 2 2 02/08/24 03:06 02/08/24 03:15 02/08/24 03:21 Temperature 97.7 F L 97.8 F Temperature Source Temporal Temporal Pulse Rate 96 92 Respiratory Rate 17 20 H Respiratory Effort Respiratory Depth Respiratory Pattern Blood Pressure 133/100 H 119/75 Blood Pressure Mean 111 89 Blood Pressure Source Monitor Monitor Blood Pressure Position Semi-Fowlers Semi-Fowlers Blood Pressure Location Left Arm Left Arm Pulse Ox 95 93 Oxygen Delivery Method Nasal Cannula Nasal Cannula Nasal Cannula Oxygen Flow Rate (L/min) 2 2 2 02/08/24 03:36 02/08/24 04:06 02/08/24 04:36 Temperature 97.2 F L Temperature Source Temporal Pulse Rate 102 H 108 H 110 H Respiratory Rate 19 H 24 H 24 H Respiratory Effort Respiratory Depth Respiratory Pattern Blood Pressure 134/60 H 129/81 H 160/92 H Blood Pressure Mean 84 97 114 Blood Pressure Source Monitor Monitor Monitor Blood Pressure Position Semi-Fowlers Semi-Fowlers Semi-Fowlers Blood Pressure Location Left Arm Left Arm Left Arm Pulse Ox 92 92 98 Oxygen Delivery Method Nasal Cannula Nasal Cannula Nasal Cannula Oxygen Flow Rate (L/min) 2 2 2 02/08/24 05:06 02/08/24 05:36 02/08/24 06:00 Temperature Temperature Source Pulse Rate 108 H 118 H Respiratory Rate 22 H 22 H Respiratory Effort Respiratory Depth Respiratory Pattern Blood Pressure 106/91 H 153/80 H Blood Pressure Mean 96 104 Blood Pressure Source Monitor Monitor Blood Pressure Position Semi-Fowlers Semi-Fowlers Blood Pressure Location Left Arm Left Arm Pulse Ox 98 98 Oxygen Delivery Method Nasal Cannula Nasal Cannula Nasal Cannula Oxygen Flow Rate (L/min) 2 2 2 02/08/24 06:06 02/08/24 06:36 02/08/24 07:00 Temperature Temperature Source Pulse Rate 115 H 118 H 120 H Respiratory Rate 26 H 22 H Respiratory Effort Respiratory Depth Respiratory Pattern Blood Pressure 138/83 H 138/103 H Blood Pressure Mean 101 114 Blood Pressure Source Monitor Monitor Blood Pressure Position Semi-Fowlers Semi-Fowlers Blood Pressure Location Left Arm Left Arm Pulse Ox 99 99 Oxygen Delivery Method Nasal Cannula Nasal Cannula Oxygen Flow Rate (L/min) 2 2 02/08/24 07:06 02/08/24 07:36 02/08/24 08:00 Temperature 97.3 F L Temperature Source Temporal Pulse Rate 111 H 108 H Respiratory Rate 24 H 23 H Respiratory Effort Normal Non-Labored Respiratory Depth Normal Respiratory Pattern Tachypnea Blood Pressure 129/101 H 120/94 H Blood Pressure Mean 110 102 Blood Pressure Source Monitor Monitor Blood Pressure Position Semi-Fowlers Semi-Fowlers Blood Pressure Location Left Arm Left Arm Pulse Ox 98 98 Oxygen Delivery Method Nasal Cannula Nasal Cannula Nasal Cannula Oxygen Flow Rate (L/min) 2 2 2 02/08/24 08:06 02/08/24 08:36 02/08/24 09:06 Temperature Temperature Source Pulse Rate 105 H 117 H 108 H Respiratory Rate 29 H 32 H 24 H Respiratory Effort Respiratory Depth Respiratory Pattern Blood Pressure 115/74 144/73 H 122/82 H Blood Pressure Mean 87 96 95 Blood Pressure Source Monitor Monitor Monitor Blood Pressure Position Semi-Fowlers Semi-Fowlers Semi-Fowlers Blood Pressure Location Left Arm Left Arm Left Arm Pulse Ox 98 98 96 Oxygen Delivery Method Nasal Cannula Nasal Cannula Nasal Cannula Oxygen Flow Rate (L/min) 2 2 2 02/08/24 10:00 02/08/24 11:00 02/08/24 12:00 Temperature 97.5 F L Temperature Source Temporal Pulse Rate 106 H 110 H 102 H Respiratory Rate 24 H 22 H 15 Respiratory Effort Respiratory Depth Respiratory Pattern Blood Pressure 139/71 H 145/83 H 152/89 H Blood Pressure Mean 93 103 110 Blood Pressure Source Monitor Monitor Monitor Blood Pressure Position Semi-Fowlers Semi-Fowlers Semi-Fowlers Blood Pressure Location Left Arm Left Arm Left Arm Pulse Ox 96 98 97 Oxygen Delivery Method Nasal Cannula Nasal Cannula Nasal Cannula Oxygen Flow Rate (L/min) 2 2 2 02/08/24 12:00 02/08/24 12:00 02/08/24 13:00 Temperature Temperature Source Pulse Rate 105 H 106 H Respiratory Rate 25 H Respiratory Effort Normal Non-Labored Respiratory Depth Normal Respiratory Pattern Tachypnea Blood Pressure 128/79 H Blood Pressure Mean 95 Blood Pressure Source Monitor Blood Pressure Position Semi-Fowlers Blood Pressure Location Left Arm Pulse Ox 98 Oxygen Delivery Method Nasal Cannula Nasal Cannula Oxygen Flow Rate (L/min) 2 2 Weight Weight: 62.2 kg Body Mass Index (BMI) 26.7 EEG Results Procedure Details EEG Procedure Details: MAURICE WALLACE is a 78 year old F with a past medical history of , who presents for evaluation of Electroencephalogram on DATE at TIME NIHSS NIHSS Nursing Documentation NIHSS Nursing Documentation: Thrombolytic: Vital Signs & NIHSS Start: 02/08/24 01:29 Text: Assess and document vital signs and NIHSS Status: Active within 15 minutes of tenecteplase bolus administration Freq: [id number] Protocol: Activity Type Activity Date Activity User E-sign Co-sign Detail Recorded Client Recorded Date Recorded By Document 02/08/24 13:00 [facility] [id number] 02/08/24 13:26 [facility] 02/08/24 13:00 Vital Signs [Pulse] -Pulse Rate (60-100) 106 H -Pulse Location Monitor [Respirations] -Respiratory Rate (12-18) 25 H -Respiratory rate source Monitor -Pulse Oximetry 98 -Oxygen Delivery Method Nasal Cannula -O2 L/MIN 2 [Blood Pressure] -Blood Pressure (90/60-120/80) 128/79 H -Blood Pressure Mean 95 -Source Monitor -Position Semi-Fowlers -Blood Pressure Location Left Arm -Is the SBP > or = 180 No -Is the DBP > or = 105 No NIH Stroke Scale [NIHSS] A score of 0 is normal or asymptomatic . Total possible score is 42. Inpatient: RN or Physician to activate a stroke alert for onset of new stroke symptoms or with NIHSS increase >/= 3 points. Following change in neurological status, NIHSS will be performed per physician order or more frequently PRN. -1a. Level of Consciousness Not alert; Arousable by minor stimuli to obey, answer & respond -1b. LOC Questions Answers BOTH questions correctly. -1c. LOC Commands Performs both tasks correctly . -2. Best Gaze Partial gaze palsy; -3. Visual No visual loss -4. Facial Palsy Normal symmetrical movements -5a. Left Arm No drift; arm holds 90 (or 45 ) degrees for full 10 seconds -5b. Right Arm No drift; arm holds 90 (or 45 ) degrees for full 10 seconds -6a. Left Leg No drift; leg holds 30-degree position for full 5 seconds -6b. Right Leg UN= Amputation or joint fusion , explain: -'UN' explanation EWA -7. Limb Ataxia UN=Amputation or joint fusion , explain -'UN' explanation EWA -9. Best Language Severe aphasia; -10. Dysarthria Mild-to- moderate dysarthria; -11. Extinction and Inattention No abnormality -Total 5 Query Text:A score of 0 is normal or asymptomatic. Total possible score is 42 . ED: Notify Physician for NIHSS increase by > / = 3 points. Inpatient: RN or Physician to activate a stroke alert for NIHSS increase of > / = 3 points. Physical Exam Neuro Neuro Narrative: exam done with tele awake alert attends global aphasia right facial droop right arm drift right leg exam deferred due hip fx move the left side antigravity Lab / Micro Data 02/08/24 00:53 02/08/24 00:53 Labs: Laboratory Results - last 24 hr 02/08/24 00:53: WBC 8.0, RBC 3.91 L, Hgb 11.9 L, Hct 37.2, MCV 95.1, MCH 30.4, MCHC 32.0, RDW Std Deviation 43.6, RDW Coeff of John 12.7, Plt Count 271, MPV 9.9, Immature Gran % (Auto) 1.100 H, Neut % (Auto) 55.0, Lymph % (Auto) 31.5, [place] % (Auto) 7.4, Eos % (Auto) 4.4, Baso % (Auto) 0.6, Absolute Neuts (auto) 4.4, Absolute Lymphs (auto) 2.51, Nucleated RBC % 0, PT 14.3, INR 1.1, APTT 29.1, Sodium 140, Potassium 3.2 L, Chloride 105, Carbon Dioxide 30.0, Anion Gap 6, BUN 15, Creatinine 0.74, Estim Creat Clear Calc 48.45, Est GFR (MDRD) Af Amer 98, Est GFR (MDRD) Non-Af 81, BUN/Creatinine Ratio 20.2 H, Glucose 124 H, C alcium 8.4 L, Troponin I High Sens 26 02/08/24 01:38: Urine Opiates Screen NEGATIVE, Urine Methadone Screen NEGATIVE, Ur Barbiturates Screen NEGATIVE, Ur Phencyclidine Scrn NEGATIVE, Ur Amphetamines Screen NEGATIVE, MDMA (Ecstasy) Screen NEGATIVE, U Benzodiazepines Scrn NEGATIVE, Urine Cocaine Screen NEGATIVE, U Cannabinoids Screen NEGATIVE, Ur Drug Screen Comment 02/08/24 05:35: Hemoglobin A1c 5.4, Triglycerides 104 02/08/24 05:35: Triglycerides Cancelled, Cholesterol 106 02/08/24 05:35: Cholesterol Cancelled, LDL Cholesterol 57 02/08/24 05:35: LDL Cholesterol Cancelled, VLDL Cholesterol 21 02/08/24 05:35: VLDL Cholesterol Cancelled, HDL Cholesterol 28 L 02/08/24 05:35: HDL Cholesterol Cancelled, TSH 2.950, Ethyl Alcohol < 3.0 Rhythm Strip Rhythm Strip: A-fib Rate: 90 Ectopy: None Imaging Radiology Impression Brain CT 02/08/24 01:03 IMPRESSION: 1. Moderate atrophy and advanced periventricular white matter ischemic changes. 2. Old lacunar infarct in the right basal ganglia and old infarct in distribution of right posterior cerebral artery. 3. Overall there has been no change from the prior study. 4. Stroke ASPECTS score 10. Electronically Signed: Jose Sullivan MD at 1:23 EST , ADDENDUM: 02/08/24 0136 IMPRESSION: 1. Moderate atrophy and advanced periventricular white matter ischemic changes. 2. Old lacunar infarct in the right basal ganglia and old infarct in distribution of right posterior cerebral artery. 3. Overall there has been no change from the prior study. 4. Stroke ASPECTS score 10. N.B. : The above Results were Read Back by Jose Sullivan MD to Britt Serrano RN, and understanding confirmed on 02/08/2024 01:29:18 (ET). Electronically Signed: Jose Sullivan MD at 1:23 EST , ADDENDUM: 02/08/24 0138 IMPRESSION: undefined Head/Neck CTA 02/08/24 01:03 IMPRESSION: 1. No significant stenosis, thrombosis or aneurysm or dissection. 2. 2 cm mass at the left upper lobe is concerning neoplasm. Consider PET/CT for further investigation if this is new (by report this was not present on the prior chest CT from 10/08/2021). 3. Several prominent nonspecific mediastinal lymph nodes are identified which are ill-defined. Attention on follow-up or subsequent examination. 4. No other acute disease. 5. Ancillary findings as above. Dr. Gurmeet Carrillo was notified of findings at 10:54 PM PACIFIC TIME on 02/07/2024. N.B. : The above Results were Read Back by Jose Sullivan MD to Gurmeet Carrillo MD, and understanding confirmed on 02/08/2024 01:55:07 (ET). Electronically Signed: Jose Sullivan MD at 1:59 EST , ADDENDUM: 02/08/24 0206 IMPRESSION: 1. No significant stenosis, thrombosis or aneurysm or dissection. 2. 2 cm mass at the left upper lobe is concerning neoplasm. Consider PET/CT for further investigation if this is new (by report this was not present on the prior chest CT from 10/08/2021). 3. Several prominent nonspecific mediastinal lymph nodes are identified which are ill-defined. Attention on follow-up or subsequent examination. 4. No other acute disease. 5. Ancillary findings as above. Dr. Gurmeet Carrillo was notified of findings at 10:54 PM PACIFIC TIME on 02/07/2024. N.B. : The above Results were Read Back by Jose Sullivan MD to Gurmeet Carrillo MD, and understanding confirmed on 02/08/2024 01:55:07 (ET). Electronically Signed: Jose Sullivan MD at 1:59 EST , Hip/Pelvis X-Ray 02/08/24 02:05 IMPRESSION: 1. Osteonecrosis of the left femoral head with suspected early subchondral collapse. 2. Acute fracture involving the right intertrochanteric region extending to involve both the lesser and greater trochanters. Electronically Signed: Jose Sullivan MD at 4:38 EST , Active Medications Active Medications Active Medications: Current Medications Generic Name Dose Route Start Last Admin Trade Name Freq PRN Reason Stop Dose Admin Acetaminophen 650 mg 02/08/24 01:29 Acetaminophen 325 Mg Tablet PO X1 PRN Temp > 99.6 F Albuterol Sulfate 2.5 mg 02/08/24 04:04 Albuterol 2.5 Mg/3 Ml Vial.Neb. INHALATION Q4H PRN PRN Congestion Clarify Med Order 1 each 02/08/24 06:30 02/08/24 12:07 Clarify Order NOTE 1 each CLARIFY TALI Administration Diphenhydramine HCl 50 mg 02/08/24 01:29 Diphenhydramine 50 Mg/Ml Syringe IV 02/09/24 01:29 X1 PRN Allergic Reaction Epinephrine HCl 0.3 mg 02/08/24 01:29 Epi Pen (Equiv) 0.3 Mg Syringe IM 02/09/24 01:29 X1 PRN Allergic Reaction Famotidine 20 mg/ Sodium 10 mls @ 300 mls/hr 02/08/24 01:29 Chloride IV 02/09/24 01:29 X1 PRN Allergic Reaction Nicardipine/Sodium Chloride 20 mg in 200 mls @ 50 mls/hr 02/08/24 01:29 Cardene-Mervin 20 Mg/200 Ml Soln CONT INF 02/09/24 01:29 Q4H PRN See Instructions Protocol 5 MG/HR Nicardipine/Sodium Chloride 20 mg in 200 mls @ 50 mls/hr 02/08/24 03:55 02/08/24 12:07 Cardene-Mervin 20 Mg/200 Ml Soln CONT INF 02/09/24 03:56 Not Given Q4H TALI Protocol 5 MG/HR Pantoprazole Sodium 40 mg/ 110 mls @ 330 mls/hr 02/08/24 10:00 02/08/24 10:41 Sodium Chloride IV Infused Q24 TALI Infusion Sodium Chloride 100 mls @ 15 mls/hr 02/08/24 03:59 IV .Q6H40M PRN Saline Flush Sodium Chloride 100 mls @ 15 mls/hr 02/08/24 03:59 IV .Q6H40M PRN Additional IVPB Infusion Clindamycin Phosphate 900 mg in 50 mls @ 75 mls/hr 02/09/24 10:00 Cleocin IV 02/09/24 10:39 PREOP ONE Influenza Virus Vaccine 180 mcg 02/09/24 10:00 Flu Vaccine High Dose Tv 24-25 180 Mcg/0.5 Ml Syringe IM 02/09/24 10:01 .ONCE ONE Labetalol HCl 20 mg 02/08/24 00:59 Labetalol 20mg/4ml Syringe IV 02/09/24 00:59 X1 PRN BLOOD PRESSURE Labetalol HCl 20 mg 02/08/24 01:29 Labetalol 20mg/4ml Syringe IV 02/09/24 01:29 X1 PRN BLOOD PRESSURE Labetalol HCl 20 mg 02/08/24 03:55 Labetalol 20mg/4ml Syringe IV X1 PRN maintain BP parameters with HR>/=60 Levothyroxine Sodium 100 mcg 02/14/24 10:00 Levothyroxine Sodium 100 Mcg Vial IV Q7D [facility] Methylprednisolone 125 mg 02/08/24 01:29 Methylprednisolone 125 Mg/2 Ml Vial IV 02/09/24 01:29 X1 PRN Allergic Reaction Ondansetron HCl 4 mg 02/08/24 05:10 Ondansetron 4 Mg/2 Ml Vial IV Q6H PRN PRN NAUSEA/VOMITING Sodium Chloride 10 - 40 ml 02/08/24 03:59 0.9% Saline Lock 10 Ml Syringe IV UD PRN SALINE FLUSH
--- NOTE | 2024-02-08 13:54 | CASEMGMT ---
JOHN BYRNES Assessment: Pt daughter called RN CM back. Care providers, pharmacy, and demographics verified/updated. Strata: 2 Admitting Dx: Stroke alert, S/P TNK with R hip fracture. PCP: [facility] Specialists: [facility] Preferred [facility]acy: [facility] Insurance: AARCharla DIETRICH ADV Prescription Benefit: yes LNOK: Daughters Shyanne and Santa Living Arrangements: Pt lives with daughter in a single story home with 3 steps to enter in. ADLs: Pt needs assistance at home, daughter is time recorder caregiver. Transportation: Pt family provides transportation. DME: lift chair, hospital bed, wheelchair, walker, shower chair HHC/SNF: Previously been in SNF and used HHC but does not recall who she used Pt family is concerned about Pt having surgery with heart condition. Instructed family to come in and speak with doctors or call and discuss with Dr. Pedroza and Dr. Patel their concerns to see how safe the procedure is. Daughter states they might want to transfer Pt to a facility that is willing to also pull her teeth while she is under anesthesia. Advised them to come into hospital and discuss mom's care with staff to determine plan. CM to follow. Advised pt to ask CM if any further question/concerns/needs arise, voices understanding. Pt Goal: TBD Plan: RICHIE High RN, CM
--- NOTE | 2024-02-08 14:50 | NURSING ---
Patient left unit to MRI, report given to roll tension tester Lindsey.
--- NOTE | 2024-02-08 16:15 | NURSING ---
Patient returned from MRI NIH not done at 1500 and late at 1615 d/t patient in MRI 1615 NIH- EWA left leg due to pain from fractured hip. Patient wants to try again later. Patient remains unable to complete sensory part of NIH d/t severe aphasia and unable to follow commands appropriately.
[2024-02-08] MEDS: HYDROmorphone 0.5 MG/0.5 ML SYRINGE IV (18:16)
[2024-02-09] VITALS (25 sets, daily range): BP systolic 118–177; BP diastolic 47–100; PULSE 75–145; RESP 14–29; TEMP 36.1–37.3; O2SAT 82–97; BMI 26.7; BMI 25.7
--- NOTE | 2024-02-09 01:30 | CT_ITS ---
INDICATION: Eval for Lung Nodule and Mediastinal LAD EXAMINATION: CT Chest W/ Contrast Injection TECHNIQUE: Helically acquired images were obtained of the chest following administration of IV contrast. A radiation dose optimization technique was used for this scan. 3D postprocessing images including MIPS were reviewed. IV Contrast dosage and agent: IV 100mL [id number] COMPARISON: None. FINDINGS: Lungs: 1.8 cm solid mass in the left upper lobe. Mediastinum: The heart is moderate enlarged. No mediastinal, hilar or axillary adenopathy. Moderate aortic arch and coronary artery calcifications. No obvious filling defect seen within the visualized pulmonary arteries. Median sternotomy wires present. Pleura: Unremarkable Bones/Soft tissues: There are diffuse degenerative changes of the spine. Upper abdomen: No visualized abnormalities in the upper abdomen. CT/Chest WITH Contrast IMPRESSION: 1.8 cm solid mass in the left upper lobe concerning for possible malignancy. Recommend CT guided biopsy. No mediastinal or hilar lymphadenopathy. Electronically Signed: Jv Vazquez MD at 3:02 EST ,
--- NOTE | 2024-02-09 01:36 | CT_ITS ---
INDICATION: s/p TNK EXAMINATION: CT BRAIN - CT Head or Brain W/O Contrast Injection TECHNIQUE: Multiple axial images were obtained of the head without intravenous contrast. The protocol utilizes one or more of the following dose reduction techniques: automated exposure control, adjustment of mA and/or kV according to patient size,and/or use of iterative reconstruction technique. IV Contrast dosage and agent: None. RADIATION DOSAGE (If Supplied By Facility): CTDIvol = ( 44.99 ) mGy, DLP = ( 863.60 ) mGycm COMPARISON: MR Brain Feb 08 2024 3:21pm FINDINGS: BRAIN PARENCHYMA: No intra- or extra-axial hemorrhage. There is subacute infarction in the left MCA territory with cytotoxic edema. There is 3 mm natu-pl-udddu midline shift is stable since the previous study. There is an old infarction in the right [employer] territory. Extensive chronic vascular ischemic changes in the periventricular white matter. Posterior fossa structures are unremarkable. CSF SPACES: Appropriate for age. No hydrocephalus. Basal cisterns are patent. CALVARIUM, SKULL BASE, PARANASAL SINUSES AND MASTOID AIR CELLS: Clear. No discrete lytic or blastic abnormalities. ORBITS: Both globes, extraocular muscles, optic nerves and retrobulbar fat appear unremarkable. ASPECTS Score for Acute Strokes: 10 CT/Brain/Head without Contrast IMPRESSION: Evolving infarction in the left MCA territory. There is no evidence of hemorrhagic transformation. There is mild cytotoxic edema with minimal midline shift. Electronically Signed: Arsh Olsen MD at 3:26 EST ,
--- NOTE | 2024-02-09 02:25 | PCM.HOSP.N ---
Hospitalist Note Pt with ongoing issues with RVR (known history) antihypertensives on hold to allow for permissive HTN s/p stroke and TNK. Will give Digoxin 500mcg x1 in the attempt to decrease HR and not impact BP much for now. Also not on meds for pain and pt has hip fx. Start APAP 1000 mg 1 q8 hrs and oxycodone 5 mg q4 hr for pain >6. Pt does have low dose Dilaudid for breakthrough pain.
[2024-02-09] MEDS: oxyCODONE 5 MG Tablet PO (02:36)
[2024-02-09] MEDS: Digoxin 250 MCG/ML Ampul 500 MCG IV (02:37)
[2024-02-09] MEDS: 0.9% Saline Lock 10 ML Syringe IV ×2 (02:37→20:21)
[2024-02-09] MEDS: Acetaminophen 500 MG Tablet 1000 MG PO ×2 (02:39→22:32)
[2024-02-09 04:12] LABS: Absolute Lymphocyte Count 0.84 X10^3/uL (0.83-4.51); Absolute Neutrophil Count 11.4 X10^3/uL (2.0-7.7); Basophil# 0.06 X10^3/uL; Basophil% 0.5 % (0-1); Eosinophil# 0.05 X10^3/uL; Eosinophils% 0.4 % (0-5); Hematocrit 28.3 % (37-47); Lymphocyte # 0.84 X10^3/ul (0.83-4.51); Lymphocyte % 6.4 % (19-41); Mean Corp Hgb Conc 31.8 g/dL (32-36); Mean Corpuscular Hgb 30.7 pg (27.0-32.0); Mean Corpuscular Volume 96.6 fL (81-99); Mean Platelet Vol. 9.8 fl (6.2-12.0); Monocyte# 0.75 X10^3/uL; Monocyte% 5.7 % (0-10); NRBC Flagged by Analyzer 0 % (0-5); Neutrophil # 11.39 X10^3/uL (2.7-7.7); Neutrophil % 86.2 % (47-70); Platelet Count 250 K/mm3 (150-450); RBC Distribution Width CV 12.7 % (11.6-14.6); RBC Distribution Width SD 44.8 fl (35.1-43.9); Red Blood Count 2.93 M/mm3 (4.2-5.4); White Blood Count 13.2 K/mm3 (4.4-11.0)
[2024-02-09 04:27] LABS: Anion Gap 4 (5-15); BUN 18 mg/dL (7-18); BUN/Creat Ratio 30.2 RATIO (10-20); Calcium,Total 8.3 mg/dL (8.5-10.1); Chloride 109 mmol/L (98-107); EST Glomerular Filtration Rate 104 mL/min (>60); Est Glom Filt Rate - Afr Amer 126 mL/min (>60); Estimated Creatinine Clearance 49.28 ml/min; Glucose 128 mg/dL (74-106); Sodium Level 141 mmol/L (136-145)
--- NOTE | 2024-02-09 05:55 | EKG12_ITS ---
Test Reason : preop Blood Pressure : */* mmHG Vent. Rate : 94 BPM Atrial Rate : 337 BPM P-R Int : * ms QRS Dur : 84 ms QT Int : 324 ms P-R-T Axes : * 53 217 degrees QTcB Int : 405 ms Atrial flutter with variable A-V block ST & T wave abnormality, consider inferior ischemia ST & T wave abnormality, consider anterolateral ischemia Abnormal ECG When compared with ECG of 08-Feb-2024 01:42, Atrial flutter has replaced Atrial fibrillation T wave inversion more evident in Anterolateral leads Confirmed by CONSUELO GOLD, EDDY ([id number]), purchasing expeditor STEPHEN HAYES ([id number]) on 02/09/2024 9:16:01 AM Referred By: Juan Jose Confirmed By: EDDY CORDERO MD
--- NOTE | 2024-02-09 06:57 | PCM.PN.INT ---
Assessment & Plan Assessment/Plan (1) Closed intertrochanteric fracture of right hip: QUALIFIERS: Encounter type: initial encounter Fracture alignment: nondisplaced Qualified Code(s): S72.144A - Nondisplaced intertrochanteric fracture of right femur, initial encounter for closed fracture (2) Atrial fibrillation: QUALIFIERS: Atrial fibrillation type: unspecified Qualified Code(s): I48.91 - Unspecified atrial fibrillation PLAN: Plan RECOMMENDATIONS: 1. Tentative plans for orthopedic surgery intervention today. 2. MRI brain to be completed. 3. PT/OT to work with the patient. 4. Recommend outpatient follow-up in the pulmonary medicine office within 2 weeks of discharge. We will assist in coordinating a percutaneous CT-guided lung biopsy of the upper lobe nodule, given potential concerns for malignancy. 5. The patient is medically stable for transfer out of the intensive care unit. Will sign off at this time. IMPRESSIONS: 1. Acute CVA status post tenecteplase The patient initially presented to the hospital with altered mental status and aphasia, concerning for CVA, for which tenecteplase was administered. Neurology is following. MRI brain to be completed today. 2. Lung nodule On CTA head and neck, the patient was noted to have a 2 cm lung nodule in the left upper lobe, which was not present on CTA in November 2021. In light of her tobacco abuse history, these findings would be concerning for potential malignancy. Accordingly, a dedicated contrasted chest CT was obtained which demonstrated a 1.8 cm nodule in the left upper lobe. At this time, I would recommend that the patient follow-up in the pulmonary medicine office within 2 weeks of her discharge from the hospital. At that time, we will assist in coordinating a percutaneous CT-guided lung biopsy. 3. Right hip intertrochanteric fracture Orthopedic surgery is tentatively planning for surgical intervention today. 4. History of atrial fibrillation with RVR/coronary artery disease status post CABG/history of tobacco dependency/hypertension/hyperlipidemia Complicates care, management, recovery and prognosis. Continue home medications as indicated. This note was generated with [employer] software. It may contain incorrect words, spelling, and punctuation that were not noted in checking the note before signing. Subjective Subjective The patient was seen and examined at the bedside this morning. Events from the last 24 hours have been reviewed. The patient is currently afebrile, hemodynamically stable and maintaining appropriate oxygen saturations on 2 L/min via nasal cannula. The patient had ongoing issues overnight with atrial fibrillation and was treated medically with digoxin. White blood cell count is elevated at 13,000. Hemoglobin is dropped to 9.0 g/dL. Follow-up head CT completed earlier this morning demonstrated an evolving infarction involving the left MCA territory. There was no hemorrhagic transformation. Dedicated imaging of the chest did confirm the presence of a 1.8 cm lung nodule in the left upper lobe. There was no associated mediastinal or hilar adenopathy. Objective Data Objective Data The patient's most recent lab work, culture data and imaging studies have all been personally reviewed. Surface echocardiogram demonstrated normal LV size and function with an ejection fraction of 65%. Vital Signs: Vital Signs Temp Pulse Resp BP Pulse Ox O2 Del Method O2 Flow Rate 97.1 F L 75 19 H 156/61 H 97 Nasal Cannula 2 02/09/24 00:00 02/09/24 06:00 02/09/24 06:00 02/09/24 06:00 02/09/24 06:00 02/09/24 06:00 02/09/24 06:00 Oxygen Flow Rate (L/min) 2 Oxygen Delivery Method Nasal Cannula Weight: 131 lb 13.383 oz Body Mass Index (BMI) 25.7 Intake & Output: Intake and Output for Last 24 Hours 02/07/24 02/08/24 02/09/24 23:59 23:59 23:59 Intake Total 2061.67 / 2061.67 Output Total 325 / 325 200 / 200 Balance 1736.67 / 1736.67 -200 / -200 Lab / Micro Data Attestation: I reviewed the patient's lab results. 02/09/24 04:00 02/09/24 04:00 Labs: Laboratory Results - last 24 hr 02/08/24 05:35: Hemoglobin A1c 5.4 02/09/24 04:00: WBC 13.2 H, RBC 2.93 L, Hgb 9.0 L, Hct 28.3 L, MCV 96.6, MCH 30.7, MCHC 31.8 L, RDW Std Deviation 44.8 H, RDW Coeff of John 12.7, Plt Count 250, MPV 9.8, Immature Gran % (Auto) 0.800, Neut % (Auto) 86.2 H, Lymph % (Auto) 6.4 L, [place] % (Auto) 5.7, Eos % (Auto) 0.4, Baso % (Auto) 0.5, Absolute Neuts (auto) 11.4 H, Absolute Lymphs (auto) 0.84, Nucleated RBC % 0, Sodium 141, Potassium 4.0, Chloride 109 H, Carbon Dioxide 28.0, Anion Gap 4 L, BUN 18, Creatinine 0.60, Estim Creat Clear Calc 49.28, Est GFR (MDRD) Af Amer 126, Est GFR (MDRD) Non-Af 104, BUN/Creatinine Ratio 30.2 H, Glucose 128 H, Calcium 8.3 L, Blood Type O POSITIVE, Antibody Screen NEGATIVE Radiography Diagnostic Testing: Radiology Impression Brain MRI 02/08/24 03:55 IMPRESSION: Acute ischemic infarct in the left posterior frontal and parietal lobes with minimal involvement of the temporal lobe. Other findings as above Electronically Signed: Hany Desai MD at 16:36 EST Reading Location ID and State: [address] [place] [address] Tel [phone], Service support , ADDENDUM: 02/08/24 1814 IMPRESSION: Acute ischemic infarct in the left posterior frontal and parietal lobes with minimal involvement of the temporal lobe. Other findings as above N.B. : The above Results were Read Back by Hany Desai MD to Caroline Scales RN, and understanding confirmed on 02/08/2024 18:07:06 (ET). Electronically Signed: Hany Desai MD at 16:36 EST , Echocardiogram 02/08/24 03:55 Interpretation Summary Normal LV size. Moderate concentric left ventricular hypertrophy. Left ventricular systolic function is normal. The left ventricular ejection fraction is 65 %. The left atrium is moderately enlarged. The right atrium is mildly enlarged. Contrast injection was performed. Ordering Physician: Juan Jose Referring Physician: Juan Jose Performed By: Celia Shin RDCS Chest CT 02/09/24 01:30 IMPRESSION: 1.8 cm solid mass in the left upper lobe concerning for possible malignancy. Recommend CT guided biopsy. No mediastinal or hilar lymphadenopathy. Electronically Signed: Jv Vazquez MD at 3:02 EST , Brain CT 02/09/24 01:36 IMPRESSION: Evolving infarction in the left MCA territory. There is no evidence of hemorrhagic transformation. There is mild cytotoxic edema with minimal midline shift. Electronically Signed: Arsh Olsen MD at 3:26 EST , Rhythm Strip Rhythm Strip: A-fib Rate: 90 Ectopy: None Physical Exam Const alert and no apparent distress Constitutional Narrative: Resting comfortably in bed. General Appearance: cooperative HEENT normocephalic and head/scalp atraumatic Eyes EOMs intact bilaterally and conjunctivae normal Neck supple General: trachea midline Chest inspection of chest normal Resp normal respiratory effort Auscultation: diminished lung sounds Cardio regular rate, S1 normal heart sound and S2 normal heart sound Rhythm: abnormal rhythm GI normal to inspection, nondistended, normoactive bowel sounds Extremity no clubbing, cyanosis or edema Extremity Narrative: Right lower extremity currently in traction. Skin no rashes or lesions noted Neuro CN's II-XII intact bilaterally Neuro Narrative: Residual aphasia noted. Psych Mood & Affect: flat affect Charges/Coding Visit Charges Inpatient E&M: 41866 Subs Hosp L2
--- NOTE | 2024-02-09 08:00 | NURSING ---
Patient unable to complete sensory part of NIH due to severe aphasia and unable to follow commands appropriately.
--- NOTE | 2024-02-09 08:31 | PCM.PN.HOSP ---
Subjective Subjective Doing well, no issues overnight. CT of the brain shows cerebral edema with very minimal shift due to that edema from her stroke and CT of the chest demonstrates 1.8 cm lesion with no lymphadenopathy in her left apical lung consistent with malignancy Objective Data Objective Data Vital Signs: Vital Signs Temp Pulse Resp BP Pulse Ox O2 Del Method O2 Flow Rate 97.1 F L 83 22 H 161/71 H 95 Nasal Cannula 2 02/09/24 00:00 02/09/24 07:00 02/09/24 07:00 02/09/24 07:00 02/09/24 08:27 02/09/24 08:27 02/09/24 08:27 Oxygen Flow Rate (L/min) 2 Oxygen Delivery Method Nasal Cannula Weight: 131 lb 13.383 oz Body Mass Index (BMI) 25.7 Intake & Output: Intake and Output for Last 24 Hours 02/08/24 02/09/24 02/10/24 03:59 03:59 03:59 Intake Total 0 / 0 2061.67 / 2061.67 Output Total 325 / 325 200 / 200 Balance 0 / 0 1736.67 / 1736.67 -200 / -200 Lab / Micro Data 02/09/24 04:00 02/09/24 04:00 Labs: Laboratory Results - last 24 hr 02/09/24 04:00: WBC 13.2 H, RBC 2.93 L, Hgb 9.0 L, Hct 28.3 L, MCV 96.6, MCH 30.7, MCHC 31.8 L, RDW Std Deviation 44.8 H, RDW Coeff of John 12.7, Plt Count 250, MPV 9.8, Immature Gran % (Auto) 0.800, Neut % (Auto) 86.2 H, Lymph % (Auto) 6.4 L, [place] % (Auto) 5.7, Eos % (Auto) 0.4, Baso % (Auto) 0.5, Absolute Neuts (auto) 11.4 H, Absolute Lymphs (auto) 0.84, Nucleated RBC % 0, Sodium 141, Potassium 4.0, Chloride 109 H, Carbon Dioxide 28.0, Anion Gap 4 L, BUN 18, Creatinine 0.60, Estim Creat Clear Calc 49.28, Est GFR (MDRD) Af Amer 126, Est GFR (MDRD) Non-Af 104, BUN/Creatinine Ratio 30.2 H, Glucose 128 H, Calcium 8.3 L, Blood Type O POSITIVE, Antibody Screen NEGATIVE Radiography Diagnostic Testing: Radiology Impression Brain MRI 02/08/24 03:55 IMPRESSION: Acute ischemic infarct in the left posterior frontal and parietal lobes with minimal involvement of the temporal lobe. Other findings as above Electronically Signed: Hany Desai MD at 16:36 EST , ADDENDUM: 02/08/24 1814 IMPRESSION: Acute ischemic infarct in the left posterior frontal and parietal lobes with minimal involvement of the temporal lobe. Other findings as above N.B. : The above Results were Read Back by Hany Desai MD to Caroline Scales RN, and understanding confirmed on 02/08/2024 18:07:06 (ET). Electronically Signed: Hany Desai MD at 16:36 EST , Echocardiogram 02/08/24 03:55 Interpretation Summary Normal LV size. Moderate concentric left ventricular hypertrophy. Left ventricular systolic function is normal. The left ventricular ejection fraction is 65 %. The left atrium is moderately enlarged. The right atrium is mildly enlarged. Contrast injection was performed. Ordering Physician: Juan Jose Referring Physician: Juan Jose Performed By: Celia Shin RDCS Chest CT 02/09/24 01:30 IMPRESSION: 1.8 cm solid mass in the left upper lobe concerning for possible malignancy. Recommend CT guided biopsy. No mediastinal or hilar lymphadenopathy. Electronically Signed: Jv Vazquez MD at 3:02 EST , Brain CT 02/09/24 01:36 IMPRESSION: Evolving infarction in the left MCA territory. There is no evidence of hemorrhagic transformation. There is mild cytotoxic edema with minimal midline shift. Electronically Signed: Arsh Olsen MD at 3:26 EST , Rhythm Strip Rhythm Strip: A-fib Rate: 90 Ectopy: None Physical Exam Narrative General: Alert but sleepy, Cooperative, No apparent distress HEENT: Atraumatic, PERRLA, EOMI, Normocephalic Oral: Moist Mucosa Neck: Supple, No JVD Lungs: Diminished, Normal air movement, No rhonchi, No wheeze, No rales Cardiovascular: Regular rate, Regular Rhythm, Normal S1, Normal S2, No murmurs Abdomen: Soft, Non Tender, Non-Distended, No Hepato-splenomegaly Extremities: No edema, Capillary Refill Less than 3 Seconds Skin: No rashes, No breakdown Musculoskeletal: No Tenderness to Palpation of Joints or Extremities Neurological: Right lower extremity weakness secondary to fracture and recent stroke Psych/Mental Status: Flat Assessment & Plan Assessment/Plan (1) Acute ischemic left MCA stroke: (2) Atrial fibrillation: QUALIFIERS: Atrial fibrillation type: unspecified Qualified Code(s): I48.91 - Unspecified atrial fibrillation (3) Closed intertrochanteric fracture of right hip: QUALIFIERS: Encounter type: initial encounter Fracture alignment: nondisplaced Qualified Code(s): S72.144A - Nondisplaced intertrochanteric fracture of right femur, initial encounter for closed fracture (4) Mass of upper lobe of left lung: PLAN: Plan 1. Acute left MCA stroke with edema status post TNK/mechanical fall with right intertrochanteric femur fracture ? She does have a history of A-fib as well as a GI bleed so she has been off anticoagulation, this will likely need to be reassessed especially in the setting of a possible lung cancer which increases her hypercoagulability ? Plan for surgical repair today so she can have a shot at physical therapy and rehab ? PT/OT ? Appreciate neurology and Ortho assistance ? Avoid hypotension during induction and surgery today, she is at moderate risk for surgery as discussed with family ? Echocardiogram with an EF of 65% with moderate concentric ventricular hypertrophy 2. CAD status post stent in 2021 and CABG/A-fib/essential HTN/HLD ? Will resume her aspirin and Plavix in the next 48 hours ? It should be okay to do minimal anticoagulation after surgery ? Continue with blood pressure medications per stroke protocol ? Continue with statin 3. Lung mass ? Is a 1.8 cm to 2 cm mass in the left upper lobe ? She is a smoker ? She will need a biopsy either this admission or as an outpatient 4. History of thyroid cancer status post thyroidectomy ? Will discontinue IV Synthroid and transition her back to her oral Synthroid ? TSH is normal 5. History of depression and anxiety with hallucinations no clear diagnosis of schizophrenia though her sister has a diagnosis of schizophrenia ? Continue with her home medications ? Stable ? There was some issues with Ativan and oversedation over the last year will monitor 6. GERD ? Stable ? Continue with PPI DVT: SCDs Charges/Coding Visit Charges Inpatient E&M: 75073 Subs Hosp L2
--- NOTE | 2024-02-09 10:08 | CASEMGMT ---
Social Work LOC met with pt's dgt Santa to discuss discharge plan. Pt lives with Santa who provides 24 hour care at home. Surgery scheduled for today. SW spoke with Santa regarding likely need for rehab prior to returning home due to stroke and hip fracture. Santa is realistic that this will be needed. SW explained the difference between Acute Inpatient Rehab and Usp Facility and a list of RU and SNF providers including quality and resource use data and consistent with the patient?s preferred geographic region, medical needs, and insurance network were provided from the [employer] Guide. Pt's dgt stating that her preferred provider is [facility] or TCU. SW notified Claudia in post acute admissions of referral. SW to follow up on after pt has had surgery and therapy for continued dc planning. GIANNI Sotelo
[2024-02-09] MEDS: Pantoprazole Sodium 40 MG in 0.9% Normal Saline (100mL MB+) 100 ML 330 MG IV (10:32)
--- NOTE | 2024-02-09 12:15 | RAD_ITS ---
STUDY: X-RAY - PELVIS AND RIGHT HIP REASON FOR EXAM: Female, 78 years old. TROCHANTERIC FIXATION NAIL RT HIP TECHNIQUE: 2 views of the pelvis and hip. COMPARISON: 02/08/2024 FINDINGS: 56 seconds of fluoroscopy of the right hip was utilized operating RM during open reduction internal fixation of fracture of the intratrochanteric femur and 9 images are significant for interpretation. . RAD/Hip Min 2 Views (Portable) IMPRESSION: Fluoroscopy during open reduction internal fixation of fracture of the intratrochanteric right femur. Electronically Signed: Murtaza Donald MD at 17:10 EST ,
--- NOTE | 2024-02-09 12:50 | NURSING ---
Patient left unit to OR
[2024-02-09] MEDS: 0.9% Normal Saline (1000mL) 1,000 ML 15 ML IV (13:20)
--- NOTE | 2024-02-09 14:07 | PRE.ANES_ITS ---
ASA Classification* ASA Classification ASA Classification: 4 and E Assessment & Plan Anesthesia* Anesthesia Assessment Anesthesia Assessment: Discussed sedation and/or anesthesia options, risks, benefits, and alternatives with patient/parents/legal guardian/POA. Questions invited. The patient/parents/legal guardian/POA seems to understand and agrees to proceed with anesthesia plan. Reviewed the physical assessment, medical history, allergy history and patient home medications list prior to surgery/procedure/anesthetic and documented any changes. Performed airway and anesthesia risk assessments. Anesthesia Type Anesthesia Type: General History Source History Obtained from:: Patient and Chart Anesthesia Focused Assessment* Temperature: 97.0 F Pulse Rate: 99 Blood Pressure: 160/71 Respiratory Rate: 14 Pulse Ox: 97 Oxygen Delivery Method: Nasal Cannula Oxygen Flow Rate (L/min): 2 Airway Assessment Mouth opens: 2 cm Mallampati Score: IV Teeth Condition: Chipped/Broken (Multiple chipped and broken teeth.) and Missing (Multiple missing teeth.) Neck Range of motion (ROM): Limited ROM Comment: Unable to fully assess airway. Patient is confused. No family is present at this time. Focused Labs Anesthesia Preop lab: CBC WBC 13.2 K/mm3 (4.4-11.0) H 02/09/24 04:00 RBC 2.93 M/mm3 (4.2-5.4) L 02/09/24 04:00 Hgb 9.0 g/dL (12.0-15.0) L 02/09/24 04:00 Hct 28.3 % (37-47) L 02/09/24 04:00 Plt Count 250 K/mm3 (150-450) 02/09/24 04:00 CHEMISTRY Potassium 4.0 mmol/L (3.5-5.1) 02/09/24 04:00 Sodium 141 mmol/L (136-145) 02/09/24 04:00 Magnesium 1.8 mg/dL (1.6-2.6) 07/06/23 05:35 Phosphorus 3.2 mg/dL (2.5-4.9) 04/11/22 04:19 BUN 18 mg/dL (7-18) 02/09/24 04:00 Creatinine 0.60 mg/dL (0.55-1.02) 02/09/24 04:00 Glucose 128 mg/dL (74-106) H 02/09/24 04:00 POC Glucose 127 mg/dL (74-106) H 05/04/23 13:03 TSH 2.950 uIU/mL (0.358-3.740) 02/08/24 05:35 COAG PT 14.3 SECONDS (11.7-14.9) 02/08/24 00:53 Pre-Assessment Diagnosis/Proposed Procedure Planned Operative Procedure(s): Right trochanteric fixation nail, long Anesthesia History Anesthesia History - planning technician: Anesthesia History - planning technician Hx Hospitalization Yes 10/27/19 16:02 Any Problems With Anesthesia No 10/20/21 20:33 Cholinesterase deficiency No 10/20/21 20:33 You/Your Family Experience No 10/20/21 20:33 fever (hyperthermia) with Relationship Recent Exposure to Contagious No 10/20/21 20:33 Disease Does patient have nerve No 02/09/24 03:45 stimulator Patient instructed to have device shut off --Does patient have Pacemaker No 02/09/24 03:45 or ICD? When Was Last Pacemaker Check QUESTION #4 FULL TEXT: You/Your Family Experience fever (hyperthermia) with Anesthesia Last Oral Intake Last Oral intake: Last Oral Intake NPO since 00:00 02/09/24 03:45 Meds taken in AM with sips of Yes 02/09/24 03:45 water? Meds patient instructed to oxycodone, tylenol 02/09/24 03:45 take am of surgery PONV PONV - planning technician: PONV - planning technician Female HX of Motion Sickness HX of N/V After Surgery Non-Smoker Duration of Surgery greater than 60 minutes Number of Risk Factors PONV Score Height & Weight Height & Weight: Anesthesia: Height & Weight Height 5 ft 02/09/24 12:01 Weight: 59.8 kg 02/09/24 12:01 Body Mass Index (BMI) 25.7 02/09/24 05:32 Respiratory Assessment Respiratory Assessment - planning technician: Respiratory Tract Infection Hx - planning technician Hx Respiratory Tract Infection No 10/20/21 20:33 STOP Sleep Apnea STOP Sleep Apnea - planning technician: STOP Sleep Apnea - planning technician Hx Hypertension Yes 02/09/24 10:00 Hx Sleep Apnea Yes 07/03/23 23:07 CPAP No 07/03/23 23:07 BIPAP No 07/03/23 23:07 Do you snore loudly (louder than talking or can be heard Do you often feel tired/ fatigued/ sleepy during daytime? Has anyone observed you stop breathing during sleep? STOP Results QUESTION #5 FULL TEXT : Do you snore loudly (louder than talking or can be heard through closed doors)? 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 Specify any problems Hx of Preganancy in last 3 Months Nurse Filling Out Transfusion & Questions: Date: Time: Patient unable to answer at this time (ie. confused, unrespo /Reproduction History /Reproductive History - planning technician: /Reproductive Hx- planning technician Hx Now Gestational Age (in weeks): EDC: Hx Hx Para Hx Section SAB No 10/20/21 20:33 Active Medications Active Medications: Current Medications Generic Name Dose Route Start Last Admin Trade Name Freq PRN Reason Stop Dose Admin Acetaminophen 1,000 mg 02/09/24 06:00 02/09/24 02:39 Acetaminophen 500 Mg Tablet PO 1,000 mg Q8 TALI Administration Albuterol Sulfate 2.5 mg 02/08/24 04:04 Albuterol 2.5 Mg/3 Ml Vial.Neb. INHALATION Q4H PRN PRN Congestion Pantoprazole Sodium 40 mg/ 110 mls @ 330 mls/hr 02/08/24 10:00 02/09/24 10:53 Sodium Chloride IV Infused Q24 TALI Infusion Sodium Chloride 100 mls @ 15 mls/hr 02/08/24 03:59 IV .Q6H40M PRN Saline Flush Sodium Chloride 100 mls @ 15 mls/hr 02/08/24 03:59 IV .Q6H40M PRN Additional IVPB Infusion Sodium Chloride 1,000 mls @ 15 mls/hr 02/09/24 13:15 02/09/24 13:20 IV 02/15/24 02:34 15 mls/hr .Q48H TALI Administration Protocol Influenza Virus Vaccine 180 mcg 02/10/24 10:00 Flu Vaccine High Dose Tv 24-25 180 Mcg/0.5 Ml Syringe IM 02/10/24 10:01 .ONCE ONE Labetalol HCl 20 mg 02/08/24 03:55 Labetalol 20mg/4ml Syringe IV X1 PRN maintain BP parameters with HR>/=60 Ondansetron HCl 4 mg 02/08/24 05:10 Ondansetron 4 Mg/2 Ml Vial IV Q6H PRN PRN NAUSEA/VOMITING Oxycodone HCl 5 mg 02/09/24 02:19 02/09/24 02:36 Oxycodone 5 Mg Tablet PO 5 mg Q4H PRN PRN Administration Pain Score 6-10 Sodium Chloride 10 - 40 ml 02/08/24 03:59 02/09/24 02:37 0.9% Saline Lock 10 Ml Syringe IV 20 ml UD PRN Administration SALINE FLUSH PFSH Medical History History of blood clots Chronic hypoxic respiratory failure Adult failure to thrive Osteoarthritis of left hip Avascular necrosis of femur head, left Anemia Declining functional status Unable to bear weight on left lower extremity Non-rheumatic mitral regurgitation History of rectal cancer Hemorrhoids, external Carotid artery stenosis CAD (coronary artery disease) Non-ST elevation (NSTEMI) myocardial infarction TIA (transient ischemic attack) CVA (cerebral vascular accident) History of thyroid cancer Depression with anxiety DDD (degenerative disc disease), lumbar H/O: pneumonia Diastolic dysfunction Atherosclerosis of coronary artery bypass graft without angina pectoris Benzodiazepine dependence Back pain COPD (chronic obstructive pulmonary disease) Obstructive sleep apnea Anxiety and depression Hypothyroidism Non-rheumatic tricuspid valve insufficiency Secondary pulmonary arterial hypertension Nicotine dependence Hyperlipidemia Atherosclerosis of coronary artery of [place] heart with angina pectoris Essential (primary) hypertension Home Medications ?Medication ?Instructions ?Recorded ?Last Taken ?Type levothyroxine 75 mcg tablet 75 mcg PO DAILY THYROID 09/06/17 01/29/23 History citalopram 40 mg tablet 40 mg PO DAILY DEPRESSION 12/18/17 01/29/23 History atenolol 50 mg tablet 50 mg PO DAILY BLOOD PRESSURE 01/05/18 04/19/22 History atorvastatin 40 mg tablet 40 mg PO QHS CHOLESTEROL 01/05/18 01/28/23 History albuterol sulfate 0.63 mg/3 mL 0.63 mg inhalation Q4H PRN 07/14/18 1 Week Ago History solution for nebulization Congestion ~10/01/21 pantoprazole 40 mg tablet,delayed 40 mg PO BID GERD 01/16/19 04/19/22 History release oxybutynin chloride 5 mg 5 mg PO DAILY BLADDER 10/08/21 01/29/23 History tablet,extended release 24 hr clopidogrel 75 mg tablet 75 mg PO QODAY BLOOD THINNER 07/12/22 01/29/23 History melatonin 10 mg sublingual tablet 10 mg PO QHS INSOMNIA #0 tabs 02/12/23 Unknown Rx acetaminophen 500 mg tablet 1,000 mg PO Q6H PRN Pain Score 1-10 02/16/23 Unknown History furosemide 20 mg tablet (Lasix) 20 mg PO DAILY PRN DIURETIC #30 02/20/23 01/29/23 Rx tabs lorazepam 0.5 mg tablet 0.5 mg PO TID anxiety 30 days #90 02/20/23 Unknown Rx tabs bupropion HCl 150 mg tablet,12 hr 150 mg PO DAILY mental health 06/30/23 Unknown History sustained-release gabapentin 100 mg capsule 100 mg PO DAILY nerve pain 06/30/23 Unknown History meloxicam 15 mg tablet 15 mg PO DAILY pain 06/30/23 Unknown History quetiapine 50 mg tablet 50 mg PO QHS mental health 06/30/23 Unknown History guaifenesin 1,200 mg tablet, 1,200 mg PO BID cough #20 tabs 07/02/23 Unknown Rx extended release 12 hr (Mucus Relief ER) lisinopril 20 mg tablet 20 mg PO BID BLOOD PRESSURE #60 07/02/23 04/19/22 Rx tabs spironolactone 25 mg tablet 25 mg PO DAILY diuretic #30 tabs 07/02/23 Unknown Rx aspirin 81 mg tablet,delayed 81 mg PO BREAKFAST heart health 08/06/23 Unknown Rx release #90 tabs isosorbide mononitrate 30 mg 30 mg PO DAILY heart #90 tabs 08/06/23 Unknown Rx tablet,extended release 24 hr Allergy/AdvReac Type Severity Reaction Status Date / Time morphine Allergy PT UNSURE Verified 02/08/24 01:18 Penicillins Allergy Hives Verified 02/08/24 01:18 tramadol HCl (From Ultram) Allergy PT UNSURE Verified 02/08/24 01:18 bupropion (From Wellbutrin) AdvReac hallucinati Verified 02/08/24 01:18 ons Family History Father Heart disease of heart attack at age 64 Mother Cancer of cancer at age 72 CVA (cerebral vascular accident) Surgical History Hx of thyroidectomy Presence of stent in coronary artery (~10/10/21) History of left heart catheterization (10/10/21) History of appendectomy Hx of cholecystectomy History of coronary artery stent placement (10/10/21) History of coronary artery bypass graft x 3 (~2007) Social History household members: children and other details: Daughter. housing: house Smoking Status: Heavy Smoker (>10/day) details: Patient denies alcohol use substance use type: does not use Review of Systems (Anesthesia) ROS Narrative System reviewed and no additional complaints, except as documented.
[2024-02-09] MEDS: Clindamycin 900 MG/50 ML BAG 75 MG IV (14:37)
[2024-02-09] MEDS: Bupiv/Epi 0.25% 30 ML Vial (15:51)
--- NOTE | 2024-02-09 16:12 | PCM.OPRPT ---
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 Type of Anesthesia: General RN Documented Start/Stop Times: Operation Date: 02/09/24 13:15 Case Time Into Pre-Op 02/09/24 13:05 Out of Pre-Op 02/09/24 14:32 Anesthesia Start 02/09/24 14:37 Into Room 02/09/24 14:37 Procedure Start 02/09/24 15:06 Procedure End 02/09/24 15:54 Anesthesia End 02/09/24 16:08 Out of Room 02/09/24 16:08 Procedure Start Time: 15:06 Procedure Stop Time: 15:54 Select all DRAINS/GRAFTS/IMPLANTS that apply: Implanted device Implanted device details: Synthes Estimated Blood Loss: 20 Specimen collected: No Description of surgery: Preoperative diagnosis: Right hip intertrochanteric femur fracture Postoperative diagnosis: Same Procedure: Cephalo-medullary fixation right hip Implants: Synthes long nail [id number] , 85 mm helical blade, 40 mm screw Anesthesia: General EBL: 20 Complications: None Condition: Stable to PACU Indication for procedure: 78-year-old female patient ground-level fall. fracture demonstrated right intertrochanteric femur fracture, risk benefits and alternatives were reviewed including risk of bleeding infection nerve, artery, bone, tissue damage, blood clot, RSD need for further surgery and continued pain. Procedure: Patient met in the preoperative holding area once again the operative extremity was identified by both patient and physician and was marked. Patient was met by anesthesia and IV was started she was brought back to the to the operating room anesthesia was started. She was then positioned on the fracture table all bony prominences were well-padded. She was then positioned with adduction internal rotation and traction and fluoroscopy was brought in to ensure that an adequate reduction could be performed. Patient was then prepped and draped in usual sterile fashion and timeout was called to ensure the proper patient procedure and extremity were being contemplated. Fluoroscopy was used to angel the tip of the greater trochanter and a 3 fingerbreadth incision was made 2 finger breaths proximal to the tip of the greater trochanter. Was carried carried down through the skin and subcutaneous tissue as well as the gluteal fascia. A guide pin was then inserted through the tip of the greater trochanter directed towards the level of lesser trochanter this was checked in both AP and lateral projections. An opening reamer was performed. A guide pin was bent and placed down the femoral canal to the level of the superior patella then measured this and placed the corresponding length nail after flexible reamers were used to achieve cortical chatter and achieving 1.5 mm greater than the nail was chosen . following this was the insertion of the nail the appropriate height jig was used and a triple trocar sleeve was advanced to the skin and a stab incision was made at the trocar was inserted to the level of the bone and a guidepin was placed into the femoral neck and head checked on both AP and lateral projections. This was then measured and appropriately sized helical blade was inserted the nail was locked proximally to allow dynamic compression, the fracture was compressed and a locking screw was placed distally using perfect [place] technique. This was then drilled and measured under fluoroscopy and the appropriate size screw was inserted. Final AP and lateral projections were saved to the PACS system of the entire construct. the wounds were thoroughly irrigated the fascia was closed with #1 [id number] Vicryls followed by 2-0 Vicryl in the subcutaneous tissues followed by alfonso in the skin. 0.5% Marcaine with epinephrine was injected into the subcutaneous tissues dressing was applied form of Xeroform 4 x 4 ABD and Ioban tape. Patient tolerated procedure well there is no intraoperative complications she was brought back to the PACU in stable condition. Surgical Findings: As above Complications Complications: No
--- NOTE | 2024-02-09 16:39 | PCM.POST.ANE ---
Anesthesia: Postop Eval I Current Vital Signs Temperature: 99.1 F Pulse Rate: 118 Blood Pressure: 152/65 Respiratory Rate: 18 Pulse Ox: 94 Oxygen Delivery Method: Venturi Mask Oxygen Flow Rate (L/min): 8 Assessment Airway patent: Yes Spontaneous unlabored respirations: Yes Mental status: Awake and Confused nausea: No Vomiting: No Anesthesia Complication: No Fluid Hydration Crystalloid volume administer (ml): 500 Total IV fluid infused: 500 Progress Note Post-operative progress note: rapid rate, afib. may consider cardizem if BP tolerates. Anesthesia document: Postop Eval 1 completed: Yes
--- NOTE | 2024-02-09 16:40 | PCM.POSTANE2 ---
Anesthesia Postop Eval I Sum Postop Eval Completion status Anesthesia document: Postop Eval 1 completed: Yes Anesthesia Postop Eval I Summary Anesthesia Postop Eval I Summary: Anesthesia Postop Eval I: Assessment Summary Airway patent Yes 02/09/24 16:40 Spontaneous unlabored Yes 02/09/24 16:40 respirations Mental status Awake,Confused 02/09/24 16:40 nausea No 02/09/24 16:40 Vomiting No 02/09/24 16:40 Anesthesia Postop Eval I: Fluid Summary Crystalloid volume administer 500 02/09/24 16:40 (ml) Colloids volume administered ( ml) Blood Product volume administered (ml) Total IV fluid infused 500 02/09/24 16:40 Anesthesia Postop Eval I: Summary Notes Anesthesia Complication No 02/09/24 16:40 Anesthesia Complication Comment: Post-operative progress note rapid rate, afib. 02/09/24 16:40 may consider cardizem if BP tolerates. Anesthesia: Postop Eval II Evaluation Mental status: Awake and Confused (no change from pre op) Pain Level: 4 nausea: No Vomiting: No
--- NOTE | 2024-02-09 16:45 | SUR.PHASEI ---
ARRIVES TO PACU ON 6 L/NC O2, SPO2 ONLY READING 78-83%, PATIENT BECOMES RESISTANT, ATTEMPTS TO REMOVE EQUIPMENT WHEN ATTEMPTING MASK. TELEMETRY AFIB/FLUTTER IN 120-130'S & ST DEPRESSION WHICH IS SAME DURING SURGERY PER DR SALAZAR, ANESTHESIA. PATIENT HANDS, FINGERS, EARLOBES COOL, DIFFICULT TO GET ACCURATE SPO2, NO CYANOSIS NOTED.
[2024-02-09] MEDS: dilTIAZem 25 MG/5 ML Vial 10 MG IV BOLUS (17:10)
[2024-02-09] MEDS: 0.9% Normal Saline (1000mL) 1,000 ML 125 ML IV (18:31)
[2024-02-09] MEDS: Cefazolin 2 GM in Syringe IV (20:20)
[2024-02-10] VITALS (11 sets, daily range): BP systolic 128–147; BP diastolic 55–69; PULSE 77–123; RESP 16–21; TEMP 36.4–36.9; O2SAT 85–100; BMI 26.3
[2024-02-10] MEDS: 0.9% Normal Saline (1000mL) 1,000 ML 125 ML IV (02:42)
[2024-02-10] MEDS: Cefazolin 2 GM in Syringe IV ×2 (04:06→12:51)
[2024-02-10 05:15] LABS: Absolute Lymphocyte Count 0.75 X10^3/uL (0.83-4.51); Absolute Neutrophil Count 18.9 X10^3/uL (2.0-7.7); Basophil# 0.06 X10^3/uL; Basophil% 0.3 % (0-1); Hematocrit 24.5 % (37-47); Hemoglobin 7.5 g/dL (12.0-15.0); Lymphocyte # 0.75 X10^3/ul (0.83-4.51); Lymphocyte % 3.7 % (19-41); Mean Corp Hgb Conc 30.6 g/dL (32-36); Mean Platelet Vol. 9.7 fl (6.2-12.0); Monocyte# 0.56 X10^3/uL; Monocyte% 2.7 % (0-10); NRBC Flagged by Analyzer 0 % (0-5); Neutrophil # 18.92 X10^3/uL (2.7-7.7); Neutrophil % 92.4 % (47-70); POSITIVE MORPHOLOGY YES; Platelet Count 250 K/mm3 (150-450); RBC Distribution Width SD 45.8 fl (35.1-43.9); White Blood Count 20.5 K/mm3 (4.4-11.0)
[2024-02-10 05:23] LABS: Differential Indicated SCAN CRITERIA MET
[2024-02-10 05:41] LABS: Anion Gap 4 (5-15); BUN 20 mg/dL (7-18); BUN/Creat Ratio 35.2 RATIO (10-20); Calcium,Total 7.8 mg/dL (8.5-10.1); Chloride 113 mmol/L (98-107); Creatinine, Serum 0.57 mg/dL (0.55-1.02); EST Glomerular Filtration Rate 110 mL/min (>60); Est Glom Filt Rate - Afr Amer 133 mL/min (>60); Estimated Creatinine Clearance 48.87 ml/min; Glucose 131 mg/dL (74-106); Sodium Level 145 mmol/L (136-145)
[2024-02-10] MEDS: Acetaminophen 500 MG Tablet 1000 MG PO ×2 (06:15→14:31)
[2024-02-10 06:26] LABS: Differential Comment SCANNED
--- NOTE | 2024-02-10 08:58 | PN.NEURO_ITS ---
Objective Data Objective Data Vital Signs: Vital Signs Temp Pulse Resp BP Pulse Ox O2 Del Method O2 Flow Rate 97.5 F L 82 21 H 147/55 H 96 Nasal Cannula 4 02/10/24 04:00 02/10/24 04:00 02/10/24 04:00 02/10/24 04:00 02/10/24 08:00 02/10/24 08:00 02/10/24 08:00 Oxygen Flow Rate (L/min) 4 Oxygen Delivery Method Nasal Cannula Weight: 61.1 kg Body Mass Index (BMI) 26.3 Intake & Output: Intake and Output for Last 24 Hours 02/08/24 02/09/24 02/10/24 23:59 23:59 23:59 Intake Total 2061.67 / 2061.67 254.25 / 374.25 1240 / 1240 Output Total 325 / 325 560 / 735 425 / 425 Balance 1736.67 / 1736.67 -305.75 / -360.75 815 / 815 Lab / Micro Data 02/10/24 05:06 02/10/24 05:06 Labs: Laboratory Results - last 24 hr 02/10/24 05:06: WBC 20.5 H, RBC 2.50 L, Hgb 7.5 L, Hct 24.5 L, MCV 98.0, MCH 30.0, MCHC 30.6 L, RDW Std Deviation 45.8 H, RDW Coeff of John 13.0, Plt Count 250, MPV 9.7, Immature Gran % (Auto) 0.900, Neut % (Auto) 92.4 H, Lymph % (Auto) 3.7 L, [place] % (Auto) 2.7, Eos % (Auto) 0.0, Baso % (Auto) 0.3, Absolute Neuts (auto) 18.9 H, Absolute Lymphs (auto) 0.75 L, Nucleated RBC % 0, Differential Comment SCANNED, Sodium 145, Potassium 4.0, Chloride 113 H, Carbon Dioxide 28.0, Anion Gap 4 L, BUN 20 H, Creatinine 0.57, Estim Creat Clear Calc 48.87, Est GFR (MDRD) Af Amer 133, Est GFR (MDRD) Non-Af 110, BUN/Creatinine Ratio 35.2 H, G lucose 131 H, Calcium 7.8 L Radiography Diagnostic Testing: Radiology Impression Hip X-Ray 02/09/24 12:15 IMPRESSION: Fluoroscopy during open reduction internal fixation of fracture of the intratrochanteric right femur. Electronically Signed: Murtaza Donald MD at 17:10 EST , Rhythm Strip Rhythm Strip: A-fib Rate: 90 Ectopy: None Physical Exam Const alert General Appearance: cooperative, comfortable and well kempt Orientation / Consciousness: oriented to person HEENT normocephalic Head and Scalp: normocephalic Face and Sinus: normal facial exam Eyes EOMs intact bilaterally Resp normal respiratory effort GI non-distended Neuro Neuro Narrative: Awake Difficulty naming objects Left gaze preference ? Right visual neglect vs field cut Moves bilateral upper extremities and left lower extremity well ? Right sided neglect Subject: Neurology Subjective MAURICE WALLACE is a 78 year old F, who we are seeing in consultation today for advice on the management of stroke and related patient care. She has a hx of HTN, HLD, Thyroid ca s/p thyroidectomy and subsequent hypothyrodism, COPD, CAD and AFIB not on AC due hx of GI bleed and noticed to have aphasia and right side weakness. CT head negative, CTA with no LVO, NIHSS was 13 she was given TNK and admitted to the MICU. Assessment and Plan: Stroke Assessment/Plan MAURICE WALLACE is a 78 F with a past medical history of HTN, Afib not on AC, being evaluated by Teleneurology for acute ischemic stroke, received TNK. Underwent surgery for hip fracture. Clinically has been stable with signs of left MCA stroke. Not a TNK or thrombectomy candidate. CTA head and neck: negative, MRI Brain: Left frontal, parietal stroke, LDL: 57, HbA1C: 5.4, ECHO: EF okay. Ac recommended by primary team Plan: Continue ASA for now. Given the stroke burden recommend Ac in 5 days from stroke onset to prevent hemorrhagis transformation. Please DW GI as she had GI bleed in the past before initiation of AC. If she cannot be on AC can consider watchman device Control of stroke risk factors PT/OT Speech eval Thanks for consult. Spent 35 minutes in management of this patient.
[2024-02-10] MEDS: Pantoprazole Sodium 40 MG in 0.9% Normal Saline (100mL MB+) 100 ML 330 MG IV (09:01)
--- NOTE | 2024-02-10 10:45 | PCM.PN.HOSP ---
Subjective Subjective No issues overnight Objective Data Objective Data Vital Signs: Vital Signs Temp Pulse Resp BP Pulse Ox O2 Del Method O2 Flow Rate 97.5 F L 82 21 H 147/55 H 96 Nasal Cannula 4 02/10/24 04:00 02/10/24 04:00 02/10/24 04:00 02/10/24 04:00 02/10/24 08:00 02/10/24 08:00 02/10/24 08:00 Oxygen Flow Rate (L/min) 4 Oxygen Delivery Method Nasal Cannula Weight: 134 lb 11.239 oz Body Mass Index (BMI) 26.3 Intake & Output: Intake and Output for Last 24 Hours 02/09/24 02/10/24 02/11/24 03:59 03:59 03:59 Intake Total 2061.67 / 2061.67 1374.25 / 1374.25 1025.83 / 1025.83 Output Total 325 / 325 735 / 735 250 / 250 Balance 1736.67 / 1736.67 639.25 / 639.25 775.83 / 775.83 Lab / Micro Data 02/10/24 05:06 02/10/24 05:06 Labs: Laboratory Results - last 24 hr 02/10/24 05:06: WBC 20.5 H, RBC 2.50 L, Hgb 7.5 L, Hct 24.5 L, MCV 98.0, MCH 30.0, MCHC 30.6 L, RDW Std Deviation 45.8 H, RDW Coeff of John 13.0, Plt Count 250, MPV 9.7, Immature Gran % (Auto) 0.900, Neut % (Auto) 92.4 H, Lymph % (Auto) 3.7 L, [place] % (Auto) 2.7, Eos % (Auto) 0.0, Baso % (Auto) 0.3, Absolute Neuts (auto) 18.9 H, Absolute Lymphs (auto) 0.75 L, Nucleated RBC % 0, Differential Comment SCANNED, Sodium 145, Potassium 4.0, Chloride 113 H, Carbon Dioxide 28.0, Anion Gap 4 L, BUN 20 H, Creatinine 0.57, Estim Creat Clear Calc 48.87, Est GFR (MDRD) Af Amer 133, Est GFR (MDRD) Non-Af 110, BUN/Creatinine Ratio 35.2 H, Glucose 131 H, Calcium 7.8 L Radiography Diagnostic Testing: Radiology Impression Hip X-Ray 02/09/24 12:15 IMPRESSION: Fluoroscopy during open reduction internal fixation of fracture of the intratrochanteric right femur. Electronically Signed: Murtaza Donald MD at 17:10 EST Reading Location ID and State: [address] [place] [address] Tel , Service support , Rhythm Strip Rhythm Strip: A-fib Rate: 90 Ectopy: None Physical Exam Narrative General: Alert but sleepy, Cooperative, No apparent distress HEENT: Atraumatic, PERRLA, EOMI, Normocephalic Oral: Moist Mucosa Neck: Supple, No JVD Lungs: Diminished, Normal air movement, No rhonchi, No wheeze, No rales Cardiovascular: Regular rate, Regular Rhythm, Normal S1, Normal S2, No murmurs Abdomen: Soft, Non Tender, Non-Distended, No Hepato-splenomegaly Extremities: No edema, Capillary Refill Less than 3 Seconds Skin: No rashes, No breakdown Musculoskeletal: No Tenderness to Palpation of Joints or Extremities Neurological: Right lower extremity weakness secondary to fracture and recent stroke Psych/Mental Status: Flat Assessment & Plan Assessment/Plan (1) Acute ischemic left MCA stroke: (2) Atrial fibrillation: QUALIFIERS: Atrial fibrillation type: unspecified Qualified Code(s): I48.91 - Unspecified atrial fibrillation (3) Closed intertrochanteric fracture of right hip: QUALIFIERS: Encounter type: initial encounter Fracture alignment: nondisplaced Qualified Code(s): S72.144A - Nondisplaced intertrochanteric fracture of right femur, initial encounter for closed fracture (4) Mass of upper lobe of left lung: PLAN: Plan 1. Acute left MCA stroke with edema status post TNK/mechanical fall with right intertrochanteric femur fracture status post repair 02/09/2024 ? She does have a history of A-fib as well as a GI bleed so she has been off anticoagulation, this will likely need to be reassessed especially in the setting of a possible lung cancer which increases her hypercoagulability ? Will start her Eliquis at 2.5 mg p.o. twice daily starting tomorrow night ? PT/OT ? Appreciate neurology and Ortho assistance ? Echocardiogram with an EF of 65% with moderate concentric ventricular hypertrophy 2. CAD status post stent in 2021 and CABG/A-fib/essential HTN/HLD ? Hold her aspirin and Plavix for now ? It should be okay to do minimal anticoagulation after surgery ? Continue with blood pressure medications per stroke protocol ? Continue with statin 3. Lung mass ? Is a 1.8 cm to 2 cm mass in the left upper lobe ? She is a smoker ? She will need a biopsy either this admission or as an outpatient 4. History of thyroid cancer status post thyroidectomy ? Will discontinue IV Synthroid and transition her back to her oral Synthroid ? TSH is normal 5. History of depression and anxiety with hallucinations no clear diagnosis of schizophrenia though her sister has a diagnosis of schizophrenia ? Continue with her home medications ? Stable ? There was some issues with Ativan and oversedation over the last year will monitor 6. GERD ? Stable ? Continue with PPI DVT: SCDs Charges/Coding Visit Charges Inpatient E&M: 17960 Subs Hosp L2
[2024-02-10] MEDS: Calcium Carbonate 500 MG Tablet PO ×2 (11:20→17:27)
[2024-02-10] MEDS: 0.9% Saline Lock 10 ML Syringe IV ×2 (11:26→12:51)
--- NOTE | 2024-02-10 12:00 | PCM.PN.ORT ---
Subjective Subjective Seen and examined. Family at bedside no concerns from patient or family she is confused. Pain has been well-controlled. Objective Data Objective Data Vital Signs: Vital Signs Temp Pulse Resp BP Pulse Ox O2 Del Method O2 Flow Rate 97.6 F L 105 H 18 129/56 H 98 Nasal Cannula 3 02/10/24 10:00 02/10/24 10:00 02/10/24 10:00 02/10/24 10:00 02/10/24 11:10 02/10/24 11:10 02/10/24 11:10 Oxygen Flow Rate (L/min) 3 Oxygen Delivery Method Nasal Cannula Weight: 134 lb 11.239 oz Body Mass Index (BMI) 26.3 Intake & Output: Intake and Output for Last 24 Hours 02/08/24 02/09/24 02/10/24 23:59 23:59 23:59 Intake Total 2061.67 / 2061.67 254.25 / 374.25 2350.00 / 2350.00 Output Total 325 / 325 560 / 735 425 / 425 Balance 1736.67 / 1736.67 -305.75 / -360.75 1925.00 / 1925.00 Lab / Micro Data 02/10/24 05:06 02/10/24 05:06 Labs: Laboratory Results - last 24 hr 02/10/24 05:06: WBC 20.5 H, RBC 2.50 L, Hgb 7.5 L, Hct 24.5 L, MCV 98.0, MCH 30.0, MCHC 30.6 L, RDW Std Deviation 45.8 H, RDW Coeff of John 13.0, Plt Count 250, MPV 9.7, Immature Gran % (Auto) 0.900, Neut % (Auto) 92.4 H, Lymph % (Auto) 3.7 L, [place] % (Auto) 2.7, Eos % (Auto) 0.0, Baso % (Auto) 0.3, Absolute Neuts (auto) 18.9 H, Absolute Lymphs (auto) 0.75 L, Nucleated RBC % 0, Differential Comment SCANNED, Sodium 145, Potassium 4.0, Chloride 113 H, Carbon Dioxide 28.0, Anion Gap 4 L, BUN 20 H, Creatinine 0.57, Estim Creat Clear Calc 48.87, Est GFR (MDRD) Af Amer 133, Est GFR (MDRD) Non-Af 110, BUN/Creatinine Ratio 35.2 H, Glucose 131 H, Calcium 7.8 L Radiography Diagnostic Testing: Radiology Impression Hip X-Ray 02/09/24 12:15 IMPRESSION: Fluoroscopy during open reduction internal fixation of fracture of the intratrochanteric right femur. Electronically Signed: Murtaza Donald MD at 17:10 EST , Rhythm Strip Rhythm Strip: A-fib Rate: 90 Ectopy: None Physical Exam Const no apparent distress; Negative for alert or oriented x3 General Appearance: cooperative Orientation / Consciousness: confused; Negative for lethargic Extremity Extremity Narrative: Right thigh dressings clean dry intact compartment soft neurovascular intact Assessment & Plan Assessment/Plan (1) Closed intertrochanteric fracture of right hip: QUALIFIERS: Encounter type: initial encounter Fracture alignment: nondisplaced Qualified Code(s): S72.144A - Nondisplaced intertrochanteric fracture of right femur, initial encounter for closed fracture PLAN: Plan Postop day #1 right hip cephalomedullary fixation for fracture PT OT weightbearing as tolerated Would recommend resuming blood thinner 35 days postoperatively when medically able to do so Dressing should be undisturbed for 72 hours postoperatively then should be removed and changed daily with dry dressing and incisions cleaned daily at this point with antibacterial soap and warm water but do not submerge in tub Wound check and staple removal 2 weeks postop.
[2024-02-10 12:27] LABS: Hematocrit 23.6 % (37-47); Hemoglobin 7.3 g/dL (12.0-15.0)
[2024-02-10] MEDS: Atenolol 50 MG Tablet PO (20:52)
[2024-02-11] VITALS (14 sets, daily range): BP systolic 132–165; BP diastolic 46–91; PULSE 74–96; RESP 15–24; TEMP 35.7–36.7; O2SAT 88–100; BMI 25.0
[2024-02-11 06:00] LABS: Absolute Lymphocyte Count 1.31 X10^3/uL (0.83-4.51); Absolute Neutrophil Count 13.6 X10^3/uL (2.0-7.7); Basophil# 0.04 X10^3/uL; Basophil% 0.3 % (0-1); Eosinophil# 0.13 X10^3/uL; Eosinophils% 0.8 % (0-5); Hematocrit 23.5 % (37-47); Hemoglobin 7.5 g/dL (12.0-15.0); Lymphocyte # 1.31 X10^3/ul (0.83-4.51); Lymphocyte % 8.3 % (19-41); Mean Corp Hgb Conc 31.9 g/dL (32-36); Mean Corpuscular Hgb 31.1 pg (27.0-32.0); Mean Corpuscular Volume 97.5 fL (81-99); Monocyte# 0.52 X10^3/uL; Monocyte% 3.3 % (0-10); NRBC Flagged by Analyzer 0.2 % (0-5); Neutrophil # 13.63 X10^3/uL (2.7-7.7); Platelet Count 279 K/mm3 (150-450); RBC Distribution Width CV 13.2 % (11.6-14.6); RBC Distribution Width SD 46.7 fl (35.1-43.9); Red Blood Count 2.41 M/mm3 (4.2-5.4); White Blood Count 15.8 K/mm3 (4.4-11.0)
[2024-02-11 06:19] LABS: Anion Gap 2 (5-15); BUN 17 mg/dL (7-18); Calcium,Total 8.1 mg/dL (8.5-10.1); Chloride 108 mmol/L (98-107); Creatinine, Serum 0.46 mg/dL (0.55-1.02); EST Glomerular Filtration Rate 141 mL/min (>60); Est Glom Filt Rate - Afr Amer 170 mL/min (>60); Estimated Creatinine Clearance 47.77 ml/min; Glucose 109 mg/dL (74-106); Potassium 3.9 mmol/L (3.5-5.1); Sodium Level 140 mmol/L (136-145)
[2024-02-11] MEDS: Atenolol 50 MG Tablet PO (09:08)
[2024-02-11] MEDS: Cholecalciferol (VIT D3) 25 MCG TABLET (1,000 UNITS) PO (09:08)
[2024-02-11] MEDS: FLU VACCINE **HIGH DOSE** TV 24-25 180 MCG/0.5 ML SYRINGE IM (09:09)
[2024-02-11] MEDS: Pantoprazole Sodium 40 MG in 0.9% Normal Saline (100mL MB+) 100 ML 330 MG IV (09:10)
--- NOTE | 2024-02-11 09:10 | PCM.PN.HOSP ---
Subjective Subjective No issues overnight, leukocytosis improved on its own without any antibiotics likely reactive to surgery. Pain appears to be controlled Objective Data Objective Data Vital Signs: Vital Signs Temp Pulse Resp BP Pulse Ox O2 Del Method O2 Flow Rate 97.5 F L 88 18 157/69 H 95 Nasal Cannula 2 02/11/24 09:02 02/11/24 09:02 02/11/24 09:02 02/11/24 09:02 02/11/24 09:02 02/11/24 09:02 02/11/24 09:02 Oxygen Flow Rate (L/min) 2 Oxygen Delivery Method Nasal Cannula Weight: 128 lb 4.944 oz Body Mass Index (BMI) 25.0 Intake & Output: Intake and Output for Last 24 Hours 02/10/24 02/11/24 02/12/24 03:59 03:59 03:59 Intake Total 1374.25 / 1374.25 1690.00 / 1690.00 Output Total 735 / 735 775 / 775 Balance 639.25 / 639.25 915.00 / 915.00 Lab / Micro Data 02/11/24 05:38 02/11/24 05:38 Labs: Laboratory Results - last 24 hr 02/10/24 12:15: Hgb 7.3 L, Hct 23.6 L 02/11/24 05:38: WBC 15.8 H, RBC 2.41 L, Hgb 7.5 L, Hct 23.5 L, MCV 97.5, MCH 31.1, MCHC 31.9 L, RDW Std Deviation 46.7 H, RDW Coeff of John 13.2, Plt Count 279, MPV 10.0, Immature Gran % (Auto) 1.300 H, Neut % (Auto) 86.0 H, Lymph % (Auto) 8.3 L, [place] % (Auto) 3.3, Eos % (Auto) 0.8, Baso % (Auto) 0.3, Absolute Neuts (auto) 13.6 H, Absolute Lymphs (auto) 1.31, Nucleated RBC % 0.2, Sodium 140, Potassium 3.9, Chloride 108 H, Carbon Dioxide 31.0, Anion Gap 2 L, BUN 17, Creatinine 0.46 L, Estim Creat Clear Calc 47.77, Est GFR (MDRD) Af Amer 170, Est GFR (MDRD) Non-Af 141, BUN/Creatinine Ratio 37.0 H, Glucose 109 H, Calcium 8.1 L Rhythm Strip Rhythm Strip: A-fib Rate: 90 Ectopy: None Physical Exam Narrative General: Alert but sleepy, Cooperative, No apparent distress HEENT: Atraumatic, PERRLA, EOMI, Normocephalic Oral: Moist Mucosa Neck: Supple, No JVD Lungs: Diminished, Normal air movement, No rhonchi, No wheeze, No rales Cardiovascular: Regular rate, Regular Rhythm, Normal S1, Normal S2, No murmurs Abdomen: Soft, Non Tender, Non-Distended, No Hepato-splenomegaly Extremities: No edema, Capillary Refill Less than 3 Seconds Skin: Dressing CDI Musculoskeletal: Minimal tenderness to palpation of right hip surgical site Neurological: Able to move her extremities limited due to surgery on the right lower extremity Psych/Mental Status: Flat Assessment & Plan Assessment/Plan (1) Acute ischemic left MCA stroke: (2) Atrial fibrillation: QUALIFIERS: Atrial fibrillation type: unspecified Qualified Code(s): I48.91 - Unspecified atrial fibrillation (3) Closed intertrochanteric fracture of right hip: QUALIFIERS: Encounter type: initial encounter Fracture alignment: nondisplaced Qualified Code(s): S72.144A - Nondisplaced intertrochanteric fracture of right femur, initial encounter for closed fracture (4) Mass of upper lobe of left lung: PLAN: Plan 1. Acute left MCA stroke with edema status post TNK/mechanical fall with right intertrochanteric femur fracture status post repair 02/09/2024 ? She does have a history of A-fib as well as a GI bleed so she has been off anticoagulation, this will likely need to be reassessed especially in the setting of a possible lung cancer which increases her hypercoagulability ? Will start her Eliquis at 2.5 mg p.o. twice daily starting tonight ? PT/OT ? Appreciate neurology and Ortho assistance ? Echocardiogram with an EF of 65% with moderate concentric ventricular hypertrophy 2. CAD status post stent in 2021 and CABG/A-fib/essential HTN/HLD ? Hold her aspirin and Plavix for now ? It should be okay to do minimal anticoagulation after surgery ? Continue with blood pressure medications per stroke protocol ? Continue with statin ? Because of her cardiac history, will transfuse 1 unit 3. Lung mass ? Is a 1.8 cm to 2 cm mass in the left upper lobe ? She is a smoker ? She will need a biopsy either this admission or as an outpatient 4. History of thyroid cancer status post thyroidectomy ? Will discontinue IV Synthroid and transition her back to her oral Synthroid ? TSH is normal 5. History of depression and anxiety with hallucinations no clear diagnosis of schizophrenia though her sister has a diagnosis of schizophrenia ? Continue with her home medications ? Stable ? There was some issues with Ativan and oversedation over the last year will monitor 6. GERD ? Stable ? Continue with PPI DVT: SCDs Charges/Coding Visit Charges Inpatient E&M: 61700 Subs Hosp L2
[2024-02-11] MEDS: 0.9% Saline Lock 10 ML Syringe IV ×2 (09:11→11:48)
[2024-02-11] MEDS: Calcium Carbonate 500 MG Tablet PO (09:12)
[2024-02-11] MEDS: oxyCODONE 5 MG Tablet PO (09:20)
[2024-02-11] MEDS: 0.9% Normal Saline (100mL Bag) 100 ML 15 ML IV (11:49)
--- NOTE | 2024-02-11 14:11 | CASEMGMT ---
Patient is not doing well with therapy. Rehab would like to see how patient does tomorrow. Fern Carrera DIRECTOR INFORMATICS [facility]
--- NOTE | 2024-02-11 14:13 | PN.NEURO_ITS ---
Objective Data Objective Data Vital Signs: Vital Signs Temp Pulse Resp BP Pulse Ox O2 Del Method O2 Flow Rate 97.3 F L 96 17 162/65 H 97 Nasal Cannula 2 02/11/24 14:00 02/11/24 14:00 02/11/24 14:00 02/11/24 14:00 02/11/24 14:00 02/11/24 14:00 02/11/24 14:00 Oxygen Flow Rate (L/min) 2 Oxygen Delivery Method Nasal Cannula Weight: 58.2 kg Body Mass Index (BMI) 25.0 Intake & Output: Intake and Output for Last 24 Hours 02/09/24 02/10/24 02/11/24 23:59 23:59 23:59 Intake Total 254.25 / 374.25 2810.00 / 2810.00 110 / 110 Output Total 560 / 735 700 / 950 250 / 250 Balance -305.75 / -360.75 2110.00 / 1860.00 -140 / -140 Lab / Micro Data 02/11/24 05:38 02/11/24 05:38 Labs: Laboratory Results - last 24 hr 02/09/24 04:00: Crossmatch See Detail 02/11/24 05:38: WBC 15.8 H, RBC 2.41 L, Hgb 7.5 L, Hct 23.5 L, MCV 97.5, MCH 31.1, MCHC 31.9 L, RDW Std Deviation 46.7 H, RDW Coeff of John 13.2, Plt Count 279, MPV 10.0, Immature Gran % (Auto) 1.300 H, Neut % (Auto) 86.0 H, Lymph % (Auto) 8.3 L, [place] % (Auto) 3.3, Eos % (Auto) 0.8, Baso % (Auto) 0.3, Absolute Neuts (auto) 13.6 H, Absolute Lymphs (auto) 1.31, Nucleated RBC % 0.2, Sodium 140, Potassium 3.9, Chloride 108 H, Carbon Dioxide 31.0, Anion Gap 2 L, BUN 17, Creatinine 0.46 L, Estim Creat Clear Calc 47.77, Est GFR (MDRD) Af Amer 170, Est GFR (MDRD) Non-Af 141, BUN/Creatinine Ratio 37.0 H, Glucose 109 H, Calcium 8.1 L Rhythm Strip Rhythm Strip: A-fib Rate: 90 Ectopy: None Physical Exam Neuro Neuro Narrative: General:?The patient appears nutritionally appropriate, well-groomed, and appears comfortable in no acute distress.?Mental Status:??The patient?s mental status was alert, she had significant aphasia. She was unable to state her age or the month. She could follow occasional commans..??Cranial nerves:? Visual cortes full, extra-ocular motion was intact. Face motion? symmetric. There was no dysarthria.?Motor:?Normal strength in all four extremities except right leg (which was limited due to pain and recent hip fracture surgery0. No pronator drift.?Sensation:?Intact light touch bilaterally..??Coordination:? Bilateral finger to nose was normal.? There was no dysmetria.?Gait:? Deferred. ? Subject: Neurology Subjective Patient went for right hip fracture surgery on 02/09/24. Started on eliquis yesterday for Afib. 140/74. EEG Results Procedure Details EEG Procedure Details: MAURICE WALLACE is a 78 year old F with a past medical history of , who presents for evaluation of Electroencephalogram on DATE at TIME Assessment and Plan: Stroke Assessment/Plan MAURICE WALLACE is a 78 F with a history of AFib not on AC (due to GI bleed in past), TIA, CAD s/p CABG, CHF, HL, Hypothyoidism, GERD who presents with aphasia and right sided weakness. On 02/08/24 she collapsed in bathroom with aphasia and right sided weakness. In [place] ER initial NIHSS 18. CT brain negative. CTA head/neck negative. TTE EF 65%, LA moderately enlarged. LDL 57, HgbA1c 5.4. MRI brain DWI shows acute inferior division LMCA infarct, FLAIR shows old right LEGAL OFFICE ADMINISTRATOR infarct. She was diagnosed with right hip fracture and went to OR on 02/09/24. Neurological examination shows aphasia and right leg weakness due to pain (recent hip fracture), NIHSS 7. ASSESSMENT/PLAN: Acute left MCA inferior division ischemic stroke, PSD #5 1) Stroke mechanism is cardioembolism due to Afib. Agree with anticoagulation (on eliquis). 2) Continue PT/OT. 2) Follow-up with outpatient neurology. Stroke work-up completed. Will sign off. Please call us with further questions. Primary team messaged recommendations on backline.
[2024-02-11 16:40] LABS: Bedside Glucose 103 mg/dL (74-106)
[2024-02-11] MEDS: APIXABAN 2.5 MG TABLET (WCH) PO (21:15)
[2024-02-11] MEDS: Acetaminophen 500 MG Tablet 1000 MG PO (22:02)
[2024-02-12] VITALS (9 sets, daily range): BP systolic 159–178; BP diastolic 64–94; PULSE 79–132; RESP 16–20; TEMP 36.2–36.5; O2SAT 96–100; BMI 25.0; BMI 27.0
[2024-02-12 08:34] LABS: Absolute Neutrophil Count 9.4 X10^3/uL (2.0-7.7); Basophil# 0.07 X10^3/uL; Basophil% 0.6 % (0-1); Eosinophil# 0.16 X10^3/uL; Eosinophils% 1.4 % (0-5); Hematocrit 29.8 % (37-47); Hemoglobin 9.7 g/dL (12.0-15.0); Mean Corp Hgb Conc 32.6 g/dL (32-36); Mean Platelet Vol. 9.6 fl (6.2-12.0); Monocyte# 0.45 X10^3/uL; Monocyte% 3.8 % (0-10); NRBC Flagged by Analyzer 0.3 % (0-5); Neutrophil # 9.42 X10^3/uL (2.7-7.7); Neutrophil % 79.8 % (47-70); Platelet Count 318 K/mm3 (150-450); RBC Distribution Width CV 14.7 % (11.6-14.6); Red Blood Count 3.23 M/mm3 (4.2-5.4); White Blood Count 11.8 K/mm3 (4.4-11.0)
[2024-02-12 08:44] LABS: Mean Corpuscular Volume 92.3 fL (81-99)
[2024-02-12 09:06] LABS: Anion Gap 3 (5-15); BUN 15 mg/dL (7-18); BUN/Creat Ratio 40.9 RATIO (10-20); Chloride 106 mmol/L (98-107); Creatinine, Serum 0.37 mg/dL (0.55-1.02); EST Glomerular Filtration Rate 182 mL/min (>60); Est Glom Filt Rate - Afr Amer 220 mL/min (>60); Estimated Creatinine Clearance 49.51 ml/min; Glucose 97 mg/dL (74-106); Potassium 3.7 mmol/L (3.5-5.1); Sodium Level 142 mmol/L (136-145)
--- NOTE | 2024-02-12 09:17 | PCM.PN.HOSP ---
Subjective Subjective No issues overnight Objective Data Objective Data Vital Signs: Vital Signs Temp Pulse Resp BP Pulse Ox O2 Del Method O2 Flow Rate 97.4 F L 95 18 161/85 H 97 Nasal Cannula 2 02/12/24 03:32 02/12/24 03:32 02/12/24 03:32 02/12/24 03:32 02/12/24 03:34 02/12/24 08:32 02/12/24 08:32 Oxygen Flow Rate (L/min) 2 Oxygen Delivery Method Nasal Cannula Weight: 138 lb 7.205 oz Body Mass Index (BMI) 27.0 Intake & Output: Intake and Output for Last 24 Hours 02/11/24 02/12/24 02/13/24 03:59 03:59 03:59 Intake Total 1690.00 / 1690.00 784 / 784 Output Total 775 / 775 425 / 425 200 / 200 Balance 915.00 / 915.00 359 / 359 -200 / -200 Lab / Micro Data 02/12/24 08:23 02/12/24 08:23 Labs: Laboratory Results - last 24 hr 02/09/24 04:00: Crossmatch See Detail 02/11/24 15:58: POC Glucose 103 02/12/24 08:23: WBC 11.8 H, RBC 3.23 L, Hgb 9.7 L, Hct 29.8 L, MCV 92.3 D, MCH 30.0, MCHC 32.6, RDW Std Deviation 50.0 H, RDW Coeff of John 14.7 H, Plt Count 318, MPV 9.6, Immature Gran % (Auto) 3.400 H, Neut % (Auto) 79.8 H, Lymph % (Auto) 11.0 L, [place] % (Auto) 3.8, Eos % (Auto) 1.4, Baso % (Auto) 0.6, Absolute Neuts (auto) 9.4 H, Absolute Lymphs (auto) 1.30, Nucleated RBC % 0.3, Sodium 142, Potassium 3.7, Chloride 106, Carbon Dioxide 32.0, Anion Gap 3 L, BUN 15, Creatinine 0.37 L, Estim Creat Clear Calc 49.51, Est GFR (MDRD) Af Amer 220, Est GFR (MDRD) Non-Af 182, BUN/Creatinine Ratio 40.9 H, Glucose 97, Calcium 8.0 L Rhythm Strip Rhythm Strip: A-fib Rate: 90 Ectopy: None Physical Exam Narrative General: Alert but sleepy, Cooperative, No apparent distress HEENT: Atraumatic, PERRLA, EOMI, Normocephalic Oral: Moist Mucosa Neck: Supple, No JVD Lungs: Diminished, Normal air movement, No rhonchi, No wheeze, No rales Cardiovascular: Regular rate, Regular Rhythm, Normal S1, Normal S2, No murmurs Abdomen: Soft, Non Tender, Non-Distended, No Hepato-splenomegaly Extremities: No edema, Capillary Refill Less than 3 Seconds Skin: Dressing CDI Musculoskeletal: Minimal tenderness to palpation of right hip surgical site Neurological: Able to move her extremities limited due to surgery on the right lower extremity, it is pending conclusive whether or not she has right-sided neglect depending on the nurse and the person to talk to, the last 2 times I spoken with her she has kept her eyes to the left Psych/Mental Status: Flat Assessment & Plan Assessment/Plan (1) Acute ischemic left MCA stroke: (2) Atrial fibrillation: QUALIFIERS: Atrial fibrillation type: unspecified Qualified Code(s): I48.91 - Unspecified atrial fibrillation (3) Closed intertrochanteric fracture of right hip: QUALIFIERS: Encounter type: initial encounter Fracture alignment: nondisplaced Qualified Code(s): S72.144A - Nondisplaced intertrochanteric fracture of right femur, initial encounter for closed fracture (4) Mass of upper lobe of left lung: PLAN: Plan 1. Acute left MCA stroke with edema status post TNK/mechanical fall with right intertrochanteric femur fracture status post repair 02/09/2024 ? She does have a history of A-fib as well as a GI bleed so she has been off anticoagulation, this will likely need to be reassessed especially in the setting of a possible lung cancer which increases her hypercoagulability ? Continue with Eliquis 2.5 mg p.o. twice daily ? PT/OT ? Appreciate neurology and Ortho assistance ? Echocardiogram with an EF of 65% with moderate concentric ventricular hypertrophy 2. CAD status post stent in 2021 and CABG/A-fib/essential HTN/HLD ? Hold her aspirin and Plavix for now ? It should be okay to do minimal anticoagulation after surgery ? Continue with blood pressure medications per stroke protocol ? Continue with statin ? She was transfused 1 unit yesterday due to postoperative hemoglobin of 7.5 given her cardiac history, repeat hemoglobin this morning is 9.7 3. Lung mass ? Is a 1.8 cm to 2 cm mass in the left upper lobe ? She is a smoker ? She will need a biopsy either this admission or as an outpatient 4. History of thyroid cancer status post thyroidectomy ? Will discontinue IV Synthroid and transition her back to her oral Synthroid ? TSH is normal 5. History of depression and anxiety with hallucinations no clear diagnosis of schizophrenia though her sister has a diagnosis of schizophrenia ? Continue with her home medications ? Stable ? There was some issues with Ativan and oversedation over the last year will monitor 6. GERD ? Stable ? Continue with PPI DVT: Eliquis Charges/Coding Visit Charges Inpatient E&M: 21102 Subs Hosp L2
[2024-02-12] MEDS: Cholecalciferol (VIT D3) 25 MCG TABLET (1,000 UNITS) PO (09:58)
[2024-02-12] MEDS: Calcium Carbonate 500 MG Tablet PO ×2 (09:58→12:18)
[2024-02-12] MEDS: Atenolol 50 MG Tablet PO (09:58)
[2024-02-12] MEDS: APIXABAN 2.5 MG TABLET (WCH) PO ×2 (09:59→19:39)
[2024-02-12] MEDS: Pantoprazole Sodium 40 MG in 0.9% Normal Saline (100mL MB+) 100 ML 330 MG IV (10:01)
[2024-02-12] MEDS: 0.9% Saline Lock 10 ML Syringe IV ×3 (10:10→16:46)
--- NOTE | 2024-02-12 11:47 | CASEMGMT ---
SW is concerned patient may not get approved for SNF as patient is not able to participate much in therapy. Physician is going to re-start patient's psychiatric medications to see if this will help. SW will continue to follow and assist with discharge planning. Fern Carrera HEALTH THERAPIST [facility]
--- NOTE | 2024-02-12 12:34 | PCM.PN.ORT ---
Subjective Subjective Seen and examined. Pain controlled resting comfortably no complaints or concerns. confused Objective Data Objective Data Vital Signs: Vital Signs Temp Pulse Resp BP Pulse Ox O2 Del Method O2 Flow Rate 97.1 F L 90 20 H 178/64 H 97 Nasal Cannula 2 02/12/24 09:30 02/12/24 09:30 02/12/24 09:30 02/12/24 09:30 02/12/24 09:30 02/12/24 09:30 02/12/24 09:30 Oxygen Flow Rate (L/min) 2 Oxygen Delivery Method Nasal Cannula Weight: 138 lb 7.205 oz Body Mass Index (BMI) 27.0 Intake & Output: Intake and Output for Last 24 Hours 02/10/24 02/11/24 02/12/24 23:59 23:59 23:59 Intake Total 2810.00 / 2810.00 784 / 784 110 / 110 Output Total 700 / 950 675 / 675 200 / 200 Balance 2110.00 / 1860.00 109 / 109 -90 / -90 Lab / Micro Data 02/12/24 08:23 02/12/24 08:23 Labs: Laboratory Results - last 24 hr 02/09/24 04:00: Crossmatch See Detail 02/11/24 15:58: POC Glucose 103 02/12/24 08:23: WBC 11.8 H, RBC 3.23 L, Hgb 9.7 L, Hct 29.8 L, MCV 92.3 D, MCH 30.0, MCHC 32.6, RDW Std Deviation 50.0 H, RDW Coeff of John 14.7 H, Plt Count 318, MPV 9.6, Immature Gran % (Auto) 3.400 H, Neut % (Auto) 79.8 H, Lymph % (Auto) 11.0 L, [place] % (Auto) 3.8, Eos % (Auto) 1.4, Baso % (Auto) 0.6, Absolute Neuts (auto) 9.4 H, Absolute Lymphs (auto) 1.30, Nucleated RBC % 0.3, Sodium 142, Potassium 3.7, Chloride 106, Carbon Dioxide 32.0, Anion Gap 3 L, BUN 15, Creatinine 0.37 L, Estim Creat Clear Calc 49.51, Est GFR (MDRD) Af Amer 220, Est GFR (MDRD) Non-Af 182, BUN/Creatinine Ratio 40.9 H, Glucose 97, Calcium 8.0 L Rhythm Strip Rhythm Strip: A-fib Rate: 90 Ectopy: None Physical Exam Const no apparent distress; Negative for alert or oriented x3 General Appearance: cooperative Orientation / Consciousness: confused; Negative for lethargic Extremity Extremity Narrative: Right thigh dressings clean dry intact compartment soft neurovascular intact Assessment & Plan Assessment/Plan (1) Closed intertrochanteric fracture of right hip: QUALIFIERS: Encounter type: initial encounter Fracture alignment: nondisplaced Qualified Code(s): S72.144A - Nondisplaced intertrochanteric fracture of right femur, initial encounter for closed fracture PLAN: Plan Postop day #3 right hip cephalomedullary fixation for fracture PT OT weightbearing as tolerated Would recommend resuming blood thinner 35 days postoperatively when medically able to do so Dressing should be undisturbed for 72 hours postoperatively then should be removed and changed daily with dry dressing and incisions cleaned daily at this point with antibacterial soap and warm water but do not submerge in tub Wound check and staple removal 2 weeks postop.
[2024-02-12] MEDS: LORazepam 0.5 MG Tablet PO (15:05)
[2024-02-12] MEDS: Metoprolol Tartrate 5 MG/5 ML Vial IV (16:38)
--- NOTE | 2024-02-12 17:07 | NURSING ---
This parts data writer spoke with ABRAHAM Pratt, updated on adding home medications and the one time dose of Lopressor 5mg, as well as the collection of Sputum for a culture.
[2024-02-12] MEDS: QUEtiapine 25 MG Tablet 50 MG PO (19:38)
[2024-02-12] MEDS: Lisinopril 20 MG Tablet PO (19:39)
[2024-02-13 01:30] VITALS: BP 164/88; PULSE 82; RESP 16; TEMP 36.6; O2SAT 96
[2024-02-13 03:04] VITALS: BMI 27.0
[2024-02-13 05:12] VITALS: BMI 26.6
[2024-02-13] MEDS: LORazepam 0.5 MG Tablet PO (05:17)
[2024-02-13] MEDS: Levothyroxine 75 MCG Tablet PO (05:19)
[2024-02-13] MEDS: Acetaminophen 500 MG Tablet 1000 MG PO ×3 (05:20→22:40)
[2024-02-13 07:00] LABS: Absolute Neutrophil Count 7.1 X10^3/uL (2.0-7.7); Basophil# 0.03 X10^3/uL; Basophil% 0.3 % (0-1); Eosinophil# 0.09 X10^3/uL; Hematocrit 26.7 % (37-47); Hemoglobin 8.6 g/dL (12.0-15.0); Lymphocyte % 10.4 % (19-41); Mean Corp Hgb Conc 32.2 g/dL (32-36); Mean Corpuscular Hgb 29.4 pg (27.0-32.0); Mean Corpuscular Volume 91.1 fL (81-99); Mean Platelet Vol. 9.6 fl (6.2-12.0); Monocyte# 0.39 X10^3/uL; Monocyte% 4.5 % (0-10); NRBC Flagged by Analyzer 0 % (0-5); Neutrophil # 7.05 X10^3/uL (2.7-7.7); Neutrophil % 81.2 % (47-70); Platelet Count 302 K/mm3 (150-450); RBC Distribution Width CV 14.4 % (11.6-14.6); RBC Distribution Width SD 47.7 fl (35.1-43.9); Red Blood Count 2.93 M/mm3 (4.2-5.4); White Blood Count 8.7 K/mm3 (4.4-11.0)
[2024-02-13 07:26] LABS: Anion Gap 4 (5-15); BUN 12 mg/dL (7-18); BUN/Creat Ratio 28.8 RATIO (10-20); Calcium,Total 7.7 mg/dL (8.5-10.1); Chloride 104 mmol/L (98-107); Creatinine, Serum 0.42 mg/dL (0.55-1.02); EST Glomerular Filtration Rate 157 mL/min (>60); Est Glom Filt Rate - Afr Amer 190 mL/min (>60); Estimated Creatinine Clearance 49.21 ml/min; Glucose 152 mg/dL (74-106); Sodium Level 139 mmol/L (136-145)
[2024-02-13 08:30] VITALS: BP 148/70; PULSE 75; RESP 17; TEMP 36.6; O2SAT 92
[2024-02-13 08:36] VITALS: O2SAT 92
[2024-02-13] MEDS: APIXABAN 2.5 MG TABLET (WCH) PO ×2 (10:21→22:40)
[2024-02-13] MEDS: Atenolol 50 MG Tablet PO (10:21)
[2024-02-13] MEDS: Lisinopril 20 MG Tablet PO ×2 (10:21→22:40)
[2024-02-13] MEDS: Cholecalciferol (VIT D3) 25 MCG TABLET (1,000 UNITS) PO (10:21)
[2024-02-13] MEDS: Calcium Carbonate 500 MG Tablet PO ×2 (10:25→13:08)
[2024-02-13] MEDS: Pantoprazole Sodium 40 MG in 0.9% Normal Saline (100mL MB+) 100 ML 330 MG IV (10:26)
--- NOTE | 2024-02-13 11:38 | PN.HOSP_ITS ---
Subjective Subjective No issues overnight, a little bit more interactive today eyes track better Objective Data Objective Data Vital Signs: Vital Signs Temp Pulse Resp BP Pulse Ox O2 Del Method O2 Flow Rate 97.9 F 75 17 148/70 H 92 Room Air 2 02/13/24 08:30 02/13/24 08:30 02/13/24 08:30 02/13/24 08:30 02/13/24 08:36 02/13/24 08:36 02/13/24 04:00 Oxygen Flow Rate (L/min) 2 Oxygen Delivery Method Room Air Weight: 136 lb 10.986 oz Body Mass Index (BMI) 26.6 Intake & Output: Intake and Output for Last 24 Hours 02/12/24 02/13/24 02/14/24 03:59 03:59 03:59 Intake Total 784 / 784 950 / 950 350 / 350 Output Total 425 / 425 850 / 850 Balance 359 / 359 100 / 100 350 / 350 Lab / Micro Data 02/13/24 06:36 02/13/24 06:36 Labs: Laboratory Results - last 24 hr 02/13/24 06:36: WBC 8.7, RBC 2.93 L, Hgb 8.6 L, Hct 26.7 L, MCV 91.1, MCH 29.4, MCHC 32.2, RDW Std Deviation 47.7 H, RDW Coeff of John 14.4, Plt Count 302, MPV 9.6, Immature Gran % (Auto) 2.600 H, Neut % (Auto) 81.2 H, Lymph % (Auto) 10.4 L , [place] % (Auto) 4.5, Eos % (Auto) 1.0, Baso % (Auto) 0.3, Absolute Neuts (auto) 7.1, Absolute Lymphs (auto) 0.90, Nucleated RBC % 0, Sodium 139, Potassium 3.0 L , Chloride 104, Carbon Dioxide 31.0, Anion Gap 4 L, BUN 12, Creatinine 0.42 L, Estim Creat Clear Calc 49.21, Est GFR (MDRD) Af Amer 190, Est GFR (MDRD) Non-Af 157, BUN/Creatinine Ratio 28.8 H, Glucose 152 H, Calcium 7.7 L Micro: Microbiology 02/12/24 16:31 Sputum, Expectorated/Coughed Respiratory Culture - Preliminary Appears to be normal respiratory ivon. Further studies to follow. Rhythm Strip Rhythm Strip: A-fib Rate: 90 Ectopy: None Physical Exam Narrative General: Alert but sleepy, Cooperative, No apparent distress HEENT: Atraumatic, PERRLA, EOMI, Normocephalic Oral: Moist Mucosa Neck: Supple, No JVD Lungs: Diminished, Normal air movement, No rhonchi, No wheeze, No rales Cardiovascular: Regular rate, Regular Rhythm, Normal S1, Normal S2, No murmurs Abdomen: Soft, Non Tender, Non-Distended, No Hepato-splenomegaly Extremities: No edema, Capillary Refill Less than 3 Seconds Skin: Dressing CDI Musculoskeletal: Minimal tenderness to palpation of right hip surgical site Neurological: Able to move her extremities limited due to surgery on the right lower extremity Psych/Mental Status: Flat Assessment & Plan Assessment/Plan (1) Acute ischemic left MCA stroke: (2) Atrial fibrillation: QUALIFIERS: Atrial fibrillation type: unspecified Qualified Code(s): I48.91 - Unspecified atrial fibrillation (3) Closed intertrochanteric fracture of right hip: QUALIFIERS: Encounter type: initial encounter Fracture alignment: nondisplaced Qualified Code(s): S72.144A - Nondisplaced intertrochanteric fracture of right femur, initial encounter for closed fracture (4) Mass of upper lobe of left lung: PLAN: Plan 1. Acute left MCA stroke with edema status post TNK/mechanical fall with right intertrochanteric femur fracture status post repair 02/09/2024 ? She does have a history of A-fib as well as a GI bleed so she has been off anticoagulation, this will likely need to be reassessed especially in the setting of a possible lung cancer which increases her hypercoagulability ? Continue with Eliquis 2.5 mg p.o. twice daily ? PT/OT she is not participating well in therapy so which is limiting her ability to create discharge plans ? Appreciate neurology and Ortho assistance ? Echocardiogram with an EF of 65% with moderate concentric ventricular hypertrophy 2. CAD status post stent in 2021 and CABG/A-fib/essential HTN/HLD ? Hold her aspirin and Plavix for now ? It should be okay to do minimal anticoagulation after surgery ? Continue with blood pressure medications per stroke protocol ? Continue with statin ? She was transfused 1 unit yesterday due to postoperative hemoglobin of 7.5 given her cardiac history, repeat hemoglobin this morning is 9.7 3. Lung mass ? Is a 1.8 cm to 2 cm mass in the left upper lobe ? She is a smoker ? She will need a biopsy either this admission or as an outpatient 4. History of thyroid cancer status post thyroidectomy ? Will discontinue IV Synthroid and transition her back to her oral Synthroid ? TSH is normal 5. History of depression and anxiety with hallucinations no clear diagnosis of schizophrenia though her sister has a diagnosis of schizophrenia ? Continue with her home medications ? Stable ? There was some issues with Ativan and oversedation over the last year will monitor ? Hopefully with restarting her home medication she will become a little bit more interactive and participate with physical therapy so we can develop a discharge plan 6. GERD ? Stable ? Continue with PPI DVT: Eliquis Charges/Coding Visit Charges Inpatient E&M: 35704 Subs Hosp L2
[2024-02-13] MEDS: oxyCODONE 5 MG Tablet PO (13:27)
[2024-02-13 14:30] VITALS: BP 145/76; PULSE 82; RESP 18; TEMP 36.8; O2SAT 95
[2024-02-13 16:00] VITALS: O2SAT 97
[2024-02-13 17:00] VITALS: BMI 26.6
[2024-02-13 18:58] VITALS: BMI 26.6
[2024-02-13 19:17] LABS: Hematocrit 32.1 % (37-47); Hemoglobin 10.5 g/dL (12.0-15.0)
[2024-02-13 22:37] VITALS: BP 141/59; PULSE 72; RESP 17; TEMP 36.7; O2SAT 100
[2024-02-13] MEDS: QUEtiapine 25 MG Tablet 50 MG PO (22:40)
[2024-02-13] MEDS: Atorvastatin Calcium 40 MG Tablet PO (22:47)
[2024-02-14] VITALS (7 sets, daily range): BP systolic 126–155; BP diastolic 65–103; PULSE 74–133; RESP 17–19; TEMP 36.4–37.2; O2SAT 92–98; BMI 26.6; BMI 26.4
[2024-02-14] MEDS: oxyCODONE 5 MG Tablet PO ×4 (04:03→20:56)
[2024-02-14] MEDS: LORazepam 0.5 MG Tablet PO ×2 (04:03→14:57)
[2024-02-14] MEDS: Metoprolol Tartrate 5 MG/5 ML Vial IV (04:07)
[2024-02-14] MEDS: 0.9% Saline Lock 10 ML Syringe IV (04:08)
[2024-02-14] MEDS: Acetaminophen 500 MG Tablet 1000 MG PO ×3 (06:12→20:56)
[2024-02-14] MEDS: Levothyroxine 75 MCG Tablet PO (06:12)
[2024-02-14 06:46] LABS: Absolute Lymphocyte Count 1.11 X10^3/uL (0.83-4.51); Absolute Neutrophil Count 7.2 X10^3/uL (2.0-7.7); Basophil# 0.04 X10^3/uL; Basophil% 0.4 % (0-1); Eosinophils% 1.1 % (0-5); Hematocrit 30.1 % (37-47); Hemoglobin 9.6 g/dL (12.0-15.0); Lymphocyte # 1.11 X10^3/ul (0.83-4.51); Lymphocyte % 11.8 % (19-41); Mean Corp Hgb Conc 31.9 g/dL (32-36); Mean Corpuscular Hgb 30.4 pg (27.0-32.0); Mean Corpuscular Volume 95.3 fL (81-99); Mean Platelet Vol. 9.9 fl (6.2-12.0); Monocyte# 0.74 X10^3/uL; Monocyte% 7.9 % (0-10); NRBC Flagged by Analyzer 0.2 % (0-5); Neutrophil # 7.19 X10^3/uL (2.7-7.7); Neutrophil % 76.4 % (47-70); Platelet Count 323 K/mm3 (150-450); RBC Distribution Width CV 13.9 % (11.6-14.6); RBC Distribution Width SD 47.1 fl (35.1-43.9); Red Blood Count 3.16 M/mm3 (4.2-5.4); White Blood Count 9.4 K/mm3 (4.4-11.0)
[2024-02-14 07:30] LABS: Anion Gap 5 (5-15); BUN 12 mg/dL (7-18); BUN/Creat Ratio 30.7 RATIO (10-20); Calcium,Total 7.8 mg/dL (8.5-10.1); Chloride 106 mmol/L (98-107); Creatinine, Serum 0.39 mg/dL (0.55-1.02); EST Glomerular Filtration Rate 169 mL/min (>60); Est Glom Filt Rate - Afr Amer 205 mL/min (>60); Estimated Creatinine Clearance 49.02 ml/min; Glucose 111 mg/dL (74-106); Potassium 3.2 mmol/L (3.5-5.1); Sodium Level 138 mmol/L (136-145)
--- NOTE | 2024-02-14 10:11 | PN.HOSP_ITS ---
Subjective Subjective No issues overnight Objective Data Objective Data Vital Signs: Vital Signs Temp Pulse Resp BP Pulse Ox O2 Del Method O2 Flow Rate 97.6 F L 133 H 17 136/103 H 98 Room Air 2 02/14/24 03:45 02/14/24 04:07 02/14/24 03:45 02/14/24 04:07 02/14/24 03:45 02/14/24 03:45 02/13/24 22:37 Oxygen Flow Rate (L/min) 2 Oxygen Delivery Method Room Air Weight: 135 lb 9.349 oz Body Mass Index (BMI) 26.4 Intake & Output: Intake and Output for Last 24 Hours 02/13/24 02/14/24 02/15/24 03:59 03:59 03:59 Intake Total 950 / 950 590 / 590 Output Total 850 / 850 550 / 550 150 / 150 Balance 100 / 100 40 / 40 -150 / -150 Lab / Micro Data 02/14/24 06:08 02/14/24 06:08 Labs: Laboratory Results - last 24 hr 02/13/24 19:07: Hgb 10.5 L, Hct 32.1 L 02/14/24 06:08: WBC 9.4, RBC 3.16 L, Hgb 9.6 L, Hct 30.1 L, MCV 95.3, MCH 30.4, MCHC 31.9 L, RDW Std Deviation 47.1 H, RDW Coeff of John 13.9, Plt Count 323, MPV 9.9, Immature Gran % (Auto) 2.400 H, Neut % (Auto) 76.4 H, Lymph % (Auto) 11.8 L , [place] % (Auto) 7.9, Eos % (Auto) 1.1, Baso % (Auto) 0.4, Absolute Neuts (auto) 7.2, Absolute Lymphs (auto) 1.11, Nucleated RBC % 0.2, Sodium 138, Potassium 3.2 L, Chloride 106, Carbon Dioxide 27.0, Anion Gap 5, BUN 12, Creatinine 0.39 L, Estim Creat Clear Calc 49.02, Est GFR (MDRD) Af Amer 205, Est GFR (MDRD) Non-Af 169, BUN/Creatinine Ratio 30.7 H, Glucose 111 H, Calcium 7.8 L Micro: Microbiology 02/12/24 16:31 Sputum, Expectorated/Coughed Gram Stain - Final 02/12/24 16:31 Sputum, Expectorated/Coughed Respiratory Culture - Preliminary Appears to be normal respiratory ivon. Further studies to follow. Rhythm Strip Rhythm Strip: A-fib Rate: 90 Ectopy: None Physical Exam Narrative General: Alert but sleepy, Cooperative, No apparent distress HEENT: Atraumatic, PERRLA, EOMI, Normocephalic Oral: Moist Mucosa Neck: Supple, No JVD Lungs: Diminished, Normal air movement, No rhonchi, No wheeze, No rales Cardiovascular: Tachycardic, Regular Rhythm, Normal S1, Normal S2, No murmurs Abdomen: Soft, Non Tender, Non-Distended, No Hepato-splenomegaly Extremities: No edema, Capillary Refill Less than 3 Seconds Skin: Dressing CDI Musculoskeletal: Minimal tenderness to palpation of right hip surgical site Neurological: Able to move her extremities limited due to surgery on the right lower extremity Psych/Mental Status: Flat Assessment & Plan Assessment/Plan (1) Acute ischemic left MCA stroke: (2) Atrial fibrillation: QUALIFIERS: Atrial fibrillation type: unspecified Qualified Code(s): I48.91 - Unspecified atrial fibrillation (3) Closed intertrochanteric fracture of right hip: QUALIFIERS: Encounter type: initial encounter Fracture alignment: nondisplaced Qualified Code(s): S72.144A - Nondisplaced intertrochanteric fracture of right femur, initial encounter for closed fracture (4) Mass of upper lobe of left lung: PLAN: Plan 1. Acute left MCA stroke with edema status post TNK/mechanical fall with right intertrochanteric femur fracture status post repair 02/09/2024 ? She does have a history of A-fib as well as a GI bleed so she has been off anticoagulation, this will likely need to be reassessed especially in the setting of a possible lung cancer which increases her hypercoagulability ? Continue with Eliquis 2.5 mg p.o. twice daily ? PT/OT she is not participating well in therapy so which is limiting her ability to create discharge plans ? Appreciate neurology and Ortho assistance ? Echocardiogram with an EF of 65% with moderate concentric ventricular hypertrophy 2. CAD status post stent in 2021 and CABG/A-fib/essential HTN/HLD ? Hold her aspirin and Plavix for now ? It should be okay to do minimal anticoagulation after surgery ? Continue with blood pressure medications per stroke protocol ? Continue with statin ? Will transition from atenolol to metoprolol for better heart rate control 3. Lung mass ? Is a 1.8 cm to 2 cm mass in the left upper lobe ? She is a smoker ? She will need a biopsy either this admission or as an outpatient 4. History of thyroid cancer status post thyroidectomy ? Will discontinue IV Synthroid and transition her back to her oral Synthroid ? TSH is normal 5. History of depression and anxiety with hallucinations no clear diagnosis of schizophrenia though her sister has a diagnosis of schizophrenia ? Continue with her home medications ? Stable ? There was some issues with Ativan and oversedation over the last year will monitor ? Hopefully with restarting her home medication she will become a little bit more interactive and participate with physical therapy so we can develop a discharge plan 6. GERD ? Stable ? Continue with PPI DVT: Eliquis Charges/Coding Visit Charges Inpatient E&M: 85443 Subs Hosp L2
[2024-02-14] MEDS: buPROPion (SR) 150 MG Tablet.SA PO (10:28)
[2024-02-14] MEDS: Lisinopril 20 MG Tablet PO ×2 (10:28→20:56)
[2024-02-14] MEDS: APIXABAN 2.5 MG TABLET (WCH) PO ×2 (10:28→20:57)
[2024-02-14] MEDS: Cholecalciferol (VIT D3) 25 MCG TABLET (1,000 UNITS) PO ×2 (10:28)
[2024-02-14] MEDS: Citalopram 40 MG TABLET PO (10:28)
[2024-02-14] MEDS: Potassium Chloride Oral Tablet 20 MEQ 40 MEQ PO (10:39)
[2024-02-14 10:46] LABS: Phosphorus 0.9 mg/dL (2.5-4.9)
[2024-02-14] MEDS: Pantoprazole Sodium 40 MG in 0.9% Normal Saline (100mL MB+) 100 ML 330 MG IV (10:53)
[2024-02-14] MEDS: Calcium Carbonate 500 MG Tablet PO (10:57)
[2024-02-14] MEDS: Potassium Phosphate 40 MM in 0.9% Normal Saline (500mL Bag) 500 ML 62.5 MM IV (12:44)
[2024-02-14] MEDS: Metoprolol Tartrate 50 MG Tablet PO (20:55)
[2024-02-14] MEDS: QUEtiapine 25 MG Tablet 50 MG PO (20:56)
[2024-02-14] MEDS: Atorvastatin Calcium 40 MG Tablet PO (20:56)
[2024-02-15] VITALS (10 sets, daily range): BP systolic 140–160; BP diastolic 76–99; PULSE 92–113; RESP 16–20; TEMP 36.1–36.7; O2SAT 94–99; BMI 25.9
[2024-02-15] MEDS: oxyCODONE 5 MG Tablet PO ×4 (02:50→21:12)
[2024-02-15] MEDS: LORazepam 0.5 MG Tablet PO ×3 (02:51→21:12)
[2024-02-15] MEDS: Acetaminophen 500 MG Tablet 1000 MG PO ×2 (05:22→21:05)
[2024-02-15] MEDS: Levothyroxine 75 MCG Tablet PO (05:22)
[2024-02-15 05:59] LABS: Absolute Lymphocyte Count 0.99 X10^3/uL (0.83-4.51); Absolute Neutrophil Count 10.2 X10^3/uL (2.0-7.7); Basophil# 0.07 X10^3/uL; Basophil% 0.6 % (0-1); Eosinophil# 0.12 X10^3/uL; Hemoglobin 9.6 g/dL (12.0-15.0); Lymphocyte # 0.99 X10^3/ul (0.83-4.51); Lymphocyte % 8.1 % (19-41); Mean Corpuscular Hgb 30.4 pg (27.0-32.0); Mean Corpuscular Volume 94.9 fL (81-99); Mean Platelet Vol. 9.6 fl (6.2-12.0); Monocyte# 0.62 X10^3/uL; Monocyte% 5.1 % (0-10); NRBC Flagged by Analyzer 0.3 % (0-5); Neutrophil # 10.19 X10^3/uL (2.7-7.7); Neutrophil % 83.4 % (47-70); Platelet Count 375 K/mm3 (150-450); RBC Distribution Width CV 14.6 % (11.6-14.6); RBC Distribution Width SD 47.6 fl (35.1-43.9); Red Blood Count 3.16 M/mm3 (4.2-5.4); White Blood Count 12.2 K/mm3 (4.4-11.0)
[2024-02-15 06:29] LABS: Anion Gap 1 (5-15); BUN 14 mg/dL (7-18); BUN/Creat Ratio 33.9 RATIO (10-20); Calcium,Total 8.5 mg/dL (8.5-10.1); Chloride 106 mmol/L (98-107); Creatinine, Serum 0.41 mg/dL (0.55-1.02); EST Glomerular Filtration Rate 159 mL/min (>60); Est Glom Filt Rate - Afr Amer 192 mL/min (>60); Estimated Creatinine Clearance 49.02 ml/min; Glucose 121 mg/dL (74-106); Potassium 3.9 mmol/L (3.5-5.1); Sodium Level 139 mmol/L (136-145)
[2024-02-15 08:22] LABS: Phosphorus 2.4 mg/dL (2.5-4.9)
[2024-02-15] MEDS: APIXABAN 2.5 MG TABLET (WCH) PO ×2 (10:16→21:05)
[2024-02-15] MEDS: Lisinopril 20 MG Tablet PO ×2 (10:17→21:06)
[2024-02-15] MEDS: buPROPion (SR) 150 MG Tablet.SA PO (10:17)
[2024-02-15] MEDS: Citalopram 40 MG TABLET PO (10:17)
[2024-02-15] MEDS: Metoprolol Tartrate 50 MG Tablet PO ×2 (10:18→21:05)
[2024-02-15] MEDS: Pantoprazole Sodium 40 MG in 0.9% Normal Saline (100mL MB+) 100 ML 330 MG IV (10:22)
--- NOTE | 2024-02-15 10:30 | PCM.PN.HOSP ---
Subjective Subjective No issues overnight, leukocytosis today unclear as to the etiology Objective Data Objective Data Vital Signs: Vital Signs Temp Pulse Resp BP Pulse Ox O2 Del Method O2 Flow Rate 97.4 F L 98 16 145/86 H 99 Nasal Cannula 2 02/15/24 09:14 02/15/24 10:18 02/15/24 09:14 02/15/24 09:14 02/15/24 09:14 02/15/24 09:14 02/15/24 09:14 Oxygen Flow Rate (L/min) 2 Oxygen Delivery Method Nasal Cannula Weight: 133 lb 2.547 oz Body Mass Index (BMI) 25.9 Intake & Output: Intake and Output for Last 24 Hours 02/14/24 02/15/24 02/16/24 03:59 03:59 03:59 Intake Total 590 / 590 1163.3333 / 1163.3333 Output Total 550 / 550 1075 / 1075 150 / 150 Balance 40 / 40 88.3333 / 88.3333 -150 / -150 Lab / Micro Data 02/15/24 05:44 02/15/24 05:44 Labs: Laboratory Results - last 24 hr 02/14/24 06:08: Phosphorus 0.9 L*, Magnesium 2.0 02/15/24 05:44: WBC 12.2 H, RBC 3.16 L, Hgb 9.6 L, Hct 30.0 L, MCV 94.9, MCH 30.4, MCHC 32.0, RDW Std Deviation 47.6 H, RDW Coeff of John 14.6, Plt Count 375, MPV 9.6, Immature Gran % (Auto) 1.800 H, Neut % (Auto) 83.4 H, Lymph % (Auto) 8.1 L, [place] % (Auto) 5.1, Eos % (Auto) 1.0, Baso % (Auto) 0.6, Absolute Neuts (auto) 10.2 H, Absolute Lymphs (auto) 0.99, Nucleated RBC % 0.3, Sodium 139, Potassium 3.9, Chloride 106, Carbon Dioxide 33.0 H, Anion Gap 1 L, BUN 14, Creatinine 0.41 L, Estim Creat Clear Calc 49.02, Est GFR (MDRD) Af Amer 192, Est GFR (MDRD) Non-Af 159, BUN/Creatinine Ratio 33.9 H, Glucose 121 H, Calcium 8.5, Phosphorus 2.4 L Micro: Microbiology 02/12/24 16:31 Sputum, Expectorated/Coughed Gram Stain - Final 02/12/24 16:31 Sputum, Expectorated/Coughed Respiratory Culture - Final Rhythm Strip Rhythm Strip: A-fib Rate: 90 Ectopy: None Physical Exam Narrative General: Alert but sleepy, Cooperative, No apparent distress HEENT: Atraumatic, PERRLA, EOMI, Normocephalic Oral: Moist Mucosa Neck: Supple, No JVD Lungs: Diminished, Normal air movement, No rhonchi, No wheeze, No rales Cardiovascular: Tachycardic, Regular Rhythm, Normal S1, Normal S2, No murmurs Abdomen: Soft, Non Tender, Non-Distended, No Hepato-splenomegaly Extremities: No edema, Capillary Refill Less than 3 Seconds Skin: Dressing CDI Musculoskeletal: Minimal tenderness to palpation of right hip surgical site Neurological: Able to move her extremities limited due to surgery on the right lower extremity Psych/Mental Status: Flat Assessment & Plan Assessment/Plan (1) Acute ischemic left MCA stroke: (2) Atrial fibrillation: QUALIFIERS: Atrial fibrillation type: unspecified Qualified Code(s): I48.91 - Unspecified atrial fibrillation (3) Closed intertrochanteric fracture of right hip: QUALIFIERS: Encounter type: initial encounter Fracture alignment: nondisplaced Qualified Code(s): S72.144A - Nondisplaced intertrochanteric fracture of right femur, initial encounter for closed fracture (4) Mass of upper lobe of left lung: PLAN: Plan 1. Acute left MCA stroke with edema status post TNK/mechanical fall with right intertrochanteric femur fracture status post repair 02/09/2024 ? She does have a history of A-fib as well as a GI bleed so she has been off anticoagulation, this will likely need to be reassessed especially in the setting of a possible lung cancer which increases her hypercoagulability ? Continue with Eliquis 2.5 mg p.o. twice daily ? PT/OT she is not participating well in therapy so which is limiting her ability to create discharge plans, her phosphorus was low and this has been replaced may help with energy ? Appreciate neurology and Ortho assistance ? Echocardiogram with an EF of 65% with moderate concentric ventricular hypertrophy ? Will obtain a urinalysis to evaluate the increase in leukocytosis, initially thought to be due to her fracture and but it had normalized over the last 2 days. 2. CAD status post stent in 2021 and CABG/A-fib/essential HTN/HLD ? Hold her aspirin and Plavix for now ? It should be okay to do minimal anticoagulation after surgery ? Continue with blood pressure medications per stroke protocol ? Continue with statin ? Will transition from atenolol to metoprolol for better heart rate control 3. Lung mass ? Is a 1.8 cm to 2 cm mass in the left upper lobe ? She is a smoker ? She will need a biopsy either this admission or as an outpatient 4. History of thyroid cancer status post thyroidectomy ? Will discontinue IV Synthroid and transition her back to her oral Synthroid ? TSH is normal 5. History of depression and anxiety with hallucinations no clear diagnosis of schizophrenia though her sister has a diagnosis of schizophrenia ? Continue with her home medications ? Stable ? There was some issues with Ativan and oversedation over the last year will monitor ? Hopefully with restarting her home medication she will become a little bit more interactive and participate with physical therapy so we can develop a discharge plan 6. GERD ? Stable ? Continue with PPI DVT: Eliquis Charges/Coding Visit Charges Inpatient E&M: 82684 Subs Hosp L2
[2024-02-15] MEDS: Potassium Phosphate 15 MM in 0.9% Normal Saline (250mL Bag) 250 ML 125 MM IV (10:52)
--- NOTE | 2024-02-15 12:55 | CASEMGMT ---
LOC received a return phone call from patient's daughter Shyanne. Shyanne asked if SW could e-mail her the list as her sister told her it is still in patient's room. Shyanne's email is [email or web address]. Shyanne said they are still really hoping patient can stay at [facility]. LOC let her know Rehab Unit physician will look at patient tomorrow. However, there is a good chance she will decline patient. Patient likely cannot complete 3 hours of therapy and will likely need a longer rehab than what [facility] Rehab or TCU offers. Shyanne said they had such a bad experience with the long term last time patient went. Patient was at the facility for 4 days and then ended up back in the hospital dehydrated. Shyanne asked how are they supposed to pick a facility. LOC suggested they go to the facilities unannounced for a tour. SW will be in touch tomorrow. Fern Carrera MSW NIKITA
--- NOTE | 2024-02-15 14:37 | CASEMGMT ---
SW received an e-mail from patient's daughter Shyanne giving their choices for SNF. 1. [facility] 2. [facility]. [facility] 4. [facility] 5. [facility]. LOC asked Marybeth to send referrals to all of the facilities. Should [facility] Acute Rehab accept patient referrals can be canceled. Plan: [facility] Acute Rehab vs SNF Fern SHELTON
--- NOTE | 2024-02-15 14:43 | CASEMGMT ---
Addendum entered by Marybeth Taylor 02/22/24 09:06: Updates sent to [facility]. Precert remains pending. Requested that they inquire on status of precert. Marybeth Taylor DC Planning Asst. Addendum entered by Marybeth Taylor 02/18/24 10:17: Updates sent to [facility]. Precert remains pending. Marybeth Taylor DC Planning Asst. Addendum entered by Marybeth Taylor 02/16/24 10:19: [facility] has accepted and is foc. [place] asked to cancel referral and [facility] asked to submit for precert. Marybeth Taylor DC Planning Asst. Addendum entered by Marybeth Taylor 02/16/24 08:48: [facility] and [facility] have declined referral. Marybeth Taylor DC Planning Asst. Original Note: Discharge Planning Referral sent to [facility], [facility], [facility], and [facility]. Marybeth Taylor DC Planning Asst.
[2024-02-15 16:06] LABS: Mucous, Urine 0 SEEN /hpf (<or=2+)
[2024-02-15] MEDS: Calcium Carbonate 500 MG Tablet PO (16:47)
[2024-02-15 17:05] LABS: Color, Urine Yellow (Yellow); Glucose, Dipstick Normal (Normal); Ketone-Dipstick Negative (Negative); Leukocyte Esterase-Dipstick 25 /ul (Negative); Nitrite-Dipstick Positive (Negative); Occult Blood-Urine 25 /ul (Negative); Protein-Dipstick Negative (Negative); Specific Gravity, Urine 1.015 (1.002-1.030); Urine Bilirubin Dipstick Negative (Negative); Urine Clarity Sl. Cloudy (Clear); Urine Urobilinogen 1 mg/dl (Normal); Urine pH 6.5 (5.0 - 8.0)
[2024-02-15 19:21] LABS: Bacteria 2+ /hpf (None Seen); Red Blood Cells-Urine 0-5 SEEN /hpf (0-5); Squamous Epithelial Cells - UA 0-5 SEEN /hpf (5-10); White Blood Cells 5-10 SEEN /hpf (0-5)
[2024-02-15] MEDS: Atorvastatin Calcium 40 MG Tablet PO (21:05)
[2024-02-15] MEDS: QUEtiapine 25 MG Tablet 50 MG PO (21:06)
[2024-02-16] VITALS (8 sets, daily range): BP systolic 130–168; BP diastolic 65–91; PULSE 71–115; RESP 16–18; TEMP 36.3–36.9; O2SAT 94–98; BMI 25.7
[2024-02-16] MEDS: Levothyroxine 75 MCG Tablet PO (05:17)
[2024-02-16] MEDS: Acetaminophen 500 MG Tablet 1000 MG PO ×3 (05:17→20:44)
[2024-02-16 06:25] LABS: Basophil# 0.06 X10^3/uL; Basophil% 0.7 % (0-1); Eosinophil# 0.13 X10^3/uL; Eosinophils% 1.4 % (0-5); Hematocrit 26.9 % (37-47); Hemoglobin 8.8 g/dL (12.0-15.0); Lymphocyte % 13.4 % (19-41); Mean Corp Hgb Conc 32.7 g/dL (32-36); Mean Corpuscular Hgb 30.6 pg (27.0-32.0); Mean Corpuscular Volume 93.4 fL (81-99); Mean Platelet Vol. 9.2 fl (6.2-12.0); Monocyte# 0.44 X10^3/uL; Monocyte% 4.9 % (0-10); NRBC Flagged by Analyzer 0.2 % (0-5); Neutrophil # 6.96 X10^3/uL (2.7-7.7); Neutrophil % 77.5 % (47-70); Platelet Count 330 K/mm3 (150-450); RBC Distribution Width CV 14.7 % (11.6-14.6); RBC Distribution Width SD 46.4 fl (35.1-43.9); Red Blood Count 2.88 M/mm3 (4.2-5.4)
[2024-02-16 06:57] LABS: Anion Gap 3 (5-15); BUN 13 mg/dL (7-18); BUN/Creat Ratio 32.7 RATIO (10-20); Calcium,Total 8.1 mg/dL (8.5-10.1); Chloride 104 mmol/L (98-107); EST Glomerular Filtration Rate 166 mL/min (>60); Est Glom Filt Rate - Afr Amer 200 mL/min (>60); Estimated Creatinine Clearance 48.37 ml/min; Glucose 103 mg/dL (74-106); Potassium 3.6 mmol/L (3.5-5.1); Sodium Level 138 mmol/L (136-145)
[2024-02-16 08:17] LABS: Magnesium 1.7 mg/dL (1.6-2.6); Phosphorus 2.3 mg/dL (2.5-4.9)
[2024-02-16] MEDS: Lisinopril 20 MG Tablet PO ×2 (09:45→20:43)
[2024-02-16] MEDS: buPROPion (SR) 150 MG Tablet.SA PO (09:45)
[2024-02-16] MEDS: Calcium Carbonate 500 MG Tablet PO ×3 (09:45→18:03)
[2024-02-16] MEDS: Metoprolol Tartrate 50 MG Tablet PO ×2 (09:45→20:43)
[2024-02-16] MEDS: Pantoprazole Sodium 40 MG Tablet PO (09:45)
[2024-02-16] MEDS: Cholecalciferol (VIT D3) 25 MCG TABLET (1,000 UNITS) PO (09:45)
[2024-02-16] MEDS: Citalopram 40 MG TABLET PO (09:46)
[2024-02-16] MEDS: APIXABAN 2.5 MG TABLET (WCH) PO ×2 (09:46→20:44)
--- NOTE | 2024-02-16 10:16 | CASEMGMT ---
[facility] Acute Rehab, [facility] and [facility] have accepted patient. [facility] will not have a bed until or Thursday. Patient will likely be ready before then. [facility] was preferred over [facility]. LOC asked [facility] to please start the pre-cert. LOC will notify patient's daughter Shyanne. Plan: [facility] pending insurance authorization. Fern SHELTON
--- NOTE | 2024-02-16 11:12 | CASEMGMT ---
OLC called patient's daughter Shyanne. LOC let Shyanne know that [facility] Acute Rehab and TCU are unable to take patient. LOC also explained [facility] declined and [facility] is full. LOC told Shyanne that [facility] and [facility] accepted patient. LOC let Shyanne know that [facility] is working on getting insurance to approve. LOC will let her know as soon as we have an answer. Plan: d/c to [facility] pending insurance approval. Fern Carrera LATHE SET UP PERSON NIKITA
[2024-02-16] MEDS: Potassium Phosphate 21 MM in 0.9% Normal Saline (250mL Bag) 250 ML 84 MM IV (14:09)
[2024-02-16] MEDS: 0.9% Normal Saline (100mL Bag) 100 ML 15 ML IV (14:10)
--- NOTE | 2024-02-16 16:58 | PCM.PN.HOSP ---
Reason for Visit Reason for Visit: Diagnoses Old myocardial infarction (02/08/24) Unspecified atrial fibrillation (02/08/24) Chronic diastolic (congestive) heart failure (02/08/24) Cerebral infarction due to unspecified occlusion or stenosis of left middle cerebral artery (02/08/24) Chronic obstructive pulmonary disease, unspecified (02/08/24) Other nonspecific abnormal finding of lung field (02/08/24) Nondisplaced intertrochanteric fracture of right femur, initial encounter for closed fracture (02/08/24) Tobacco use (02/08/24) Subjective Subjective Patient resting in bed, due to some amount of expressive and possibly receptive aphasia patient has difficulty directly answering questions but was awake and alert and interactive Objective Data Objective Data Vital Signs: Vital Signs Temp Pulse Resp BP Pulse Ox O2 Del Method O2 Flow Rate 98.5 F 87 18 130/70 H 98 Nasal Cannula 2 02/16/24 14:05 02/16/24 14:05 02/16/24 14:05 02/16/24 14:05 02/16/24 14:05 02/16/24 15:13 02/16/24 15:13 Oxygen Flow Rate (L/min) 2 Oxygen Delivery Method Nasal Cannula Weight: 59.8 kg Body Mass Index (BMI) 25.7 Intake & Output: Intake and Output for Last 24 Hours 02/14/24 02/15/24 02/16/24 23:59 23:59 23:59 Intake Total 803.3333 / 1163.3333 825 / 825 25.25 / 25.25 Output Total 1000 / 1325 1025 / 1025 50 / 50 Balance -196.6667 / -161.6667 -200 / -200 -24.75 / -24.75 Lab / Micro Data 02/16/24 06:16 02/16/24 06:16 Labs: Laboratory Results - last 24 hr 02/15/24 14:00: Urine Color Yellow, Urine Clarity Sl. Cloudy, Urine pH 6.5, Ur Specific [place] 1.015, Urine Protein Negative, Urine Glucose (UA) Normal, Urine Ketones Negative, Urine Occult Blood 25 H, Urine Nitrite Positive H, Urine Bilirubin Negative, Urine Urobilinogen 1 H, Ur Leukocyte Esterase 25 H, Urine RBC 0-5 SEEN, Urine WBC 5-10 SEEN, Ur Squamous Epith Cells 0-5 SEEN, Urine Bacteria 2+, Urine Mucus 0 SEEN 02/16/24 06:16: WBC 9.0, RBC 2.88 L, Hgb 8.8 L, Hct 26.9 L, MCV 93.4, MCH 30.6, MCHC 32.7, RDW Std Deviation 46.4 H, RDW Coeff of John 14.7 H, Plt Count 330, MPV 9.2, Immature Gran % (Auto) 2.100 H, Neut % (Auto) 77.5 H, Lymph % (Auto) 13.4 L, [place] % (Auto) 4.9, Eos % (Auto) 1.4, Baso % (Auto) 0.7, Absolute Neuts (auto) 7.0, Absolute Lymphs (auto) 1.20, Nucleated RBC % 0.2, Sodium 138, Potassium 3.6, Chloride 104, Carbon Dioxide 31.0, Anion Gap 3 L, BUN 13, Creatinine 0.40 L, Estim Creat Clear Calc 48.37, Est GFR (MDRD) Af Amer 200, Est GFR (MDRD) Non-Af 166, BUN/Creatinine Ratio 32.7 H, Glucose 103, Calcium 8.1 L, Phosphorus 2.3 L, Magnesium 1.7 Micro: Microbiology 02/12/24 16:31 Sputum, Expectorated/Coughed Gram Stain - Final 02/12/24 16:31 Sputum, Expectorated/Coughed Respiratory Culture - Final Rhythm Strip Rhythm Strip: A-fib Rate: 90 Ectopy: None Physical Exam Narrative General: Alert, difficulty answering orientation questions given her aphasia HEENT: Atraumatic Eyes: Anicteric, normal conjunctiva, extraocular movements grossly intact Neck: Supple Respiratory: Clear to auscultation bilaterally, normal respiratory effort Cardiovascular: Regular rate GI: Soft, nontender, nondistended Extremities: No edema Musculoskeletal: Right lower extremity movement limited due to recent surgery Neuro: Patient with expressive and possibly some receptive aphasia Skin: No rashes appreciated Psych: Cooperative Assessment & Plan Assessment/Plan (1) Acute ischemic left MCA stroke: PLAN: Plan # Acute left MCA stroke with edema status post TNK, suspected to be embolic in nature -MRI revealed left MCA stroke -Patient back on her Eliquis -PT/OT-> will need placement -Continue supportive care -Continue statin -Will need outpatient follow-up with neurology # Right hip fracture -Status post right hip cephalomedullary fixation on 02/09/[address] Patel -Recommend wound check and staple removal 2 weeks postoperatively per Ortho note -Pain control -PT/OT -Patient to be placed # History of coronary artery disease -With previous CABG and stent in 2021 -Eliquis, statin -Continue beta-estefania #Depression/anxiety -Continue home medications # History of thyroid cancer status post thyroidectomy -Continue oral Synthroid # Left upper lobe lesion -1.8 to 2 cm mass in left upper lobe -Will need to follow-up on discharge for further workup and monitoring #GERD -Continue PPI #DVT ppx: Lovenox subcu Mellisa Lunsford MD Time spent in the patient's overall evaluation, decision-making process, review of diagnostic data, adjustment of management, discussion with other providers, nursing and ancillary staff involved in patient's care documentation, 35 Minutes Charges/Coding Visit Charges Inpatient E&M: 03865 Subs Hosp L2
[2024-02-16] MEDS: QUEtiapine 25 MG Tablet 50 MG PO (20:44)
[2024-02-16] MEDS: Atorvastatin Calcium 40 MG Tablet PO (20:45)
[2024-02-16] MEDS: oxyCODONE 5 MG Tablet PO (22:42)
[2024-02-17] VITALS (8 sets, daily range): BP systolic 131–158; BP diastolic 63–96; PULSE 66–97; RESP 16–18; TEMP 35.3–36.9; O2SAT 89–98; BMI 26.9
[2024-02-17 08:00] LABS: Hematocrit 28.6 % (37-47); Hemoglobin 9.1 g/dL (12.0-15.0); Mean Corp Hgb Conc 31.8 g/dL (32-36); Mean Corpuscular Hgb 29.7 pg (27.0-32.0); Mean Corpuscular Volume 93.5 fL (81-99); Mean Platelet Vol. 9.7 fl (6.2-12.0); Platelet Count 371 K/mm3 (150-450); Red Blood Count 3.06 M/mm3 (4.2-5.4); White Blood Count 9.9 K/mm3 (4.4-11.0)
[2024-02-17 08:39] LABS: Anion Gap 4 (5-15); BUN 11 mg/dL (7-18); BUN/Creat Ratio 22.7 RATIO (10-20); Calcium,Total 8.4 mg/dL (8.5-10.1); Chloride 104 mmol/L (98-107); Creatinine, Serum 0.48 mg/dL (0.55-1.02); EST Glomerular Filtration Rate 132 mL/min (>60); Est Glom Filt Rate - Afr Amer 160 mL/min (>60); Estimated Creatinine Clearance 49.39 ml/min; Glucose 123 mg/dL (74-106); Magnesium 1.9 mg/dL (1.6-2.6); Phosphorus 2.3 mg/dL (2.5-4.9); Potassium 3.4 mmol/L (3.5-5.1); Sodium Level 138 mmol/L (136-145)
[2024-02-17] MEDS: Cholecalciferol (VIT D3) 25 MCG TABLET (1,000 UNITS) PO (09:18)
[2024-02-17] MEDS: Potassium Chloride Oral Tablet 20 MEQ PO (09:18)
[2024-02-17] MEDS: buPROPion (SR) 150 MG Tablet.SA PO (09:18)
[2024-02-17] MEDS: Citalopram 40 MG TABLET PO (09:19)
[2024-02-17] MEDS: Lisinopril 20 MG Tablet PO ×2 (09:19→21:14)
[2024-02-17] MEDS: APIXABAN 2.5 MG TABLET (WCH) PO ×2 (09:19→21:11)
[2024-02-17] MEDS: Metoprolol Tartrate 50 MG Tablet PO ×2 (09:19→21:11)
[2024-02-17] MEDS: Pantoprazole Sodium 40 MG Tablet PO (09:19)
[2024-02-17] MEDS: Calcium Carbonate 500 MG Tablet PO ×3 (09:21→17:57)
[2024-02-17] MEDS: Nitrofurantoin Macrocrystals 100 MG Capsule PO ×2 (12:10→21:10)
[2024-02-17] MEDS: Acetaminophen 500 MG Tablet 1000 MG PO ×2 (13:02→21:11)
--- NOTE | 2024-02-17 16:50 | PN.HOSP_ITS ---
Reason for Visit Reason for Visit: Diagnoses Old myocardial infarction (02/08/24) Unspecified atrial fibrillation (02/08/24) Chronic diastolic (congestive) heart failure (02/08/24) Cerebral infarction due to unspecified occlusion or stenosis of left middle cerebral artery (02/08/24) Chronic obstructive pulmonary disease, unspecified (02/08/24) Other nonspecific abnormal finding of lung field (02/08/24) Nondisplaced intertrochanteric fracture of right femur, initial encounter for closed fracture (02/08/24) Tobacco use (02/08/24) Subjective Subjective Patient resting in bed, denied any complaints when asked any chest pain, shortness of breath, abdominal pain specifically but has difficulty answering open-ended questions given her aphasia Objective Data Objective Data Vital Signs: Vital Signs Temp Pulse Resp BP Pulse Ox O2 Del Method O2 Flow Rate 98.2 F 75 18 148/63 H 96 Nasal Cannula 1 02/17/24 15:15 02/17/24 15:15 02/17/24 15:15 02/17/24 15:15 02/17/24 15:15 02/17/24 15:15 02/17/24 15:15 Oxygen Flow Rate (L/min) 1 Oxygen Delivery Method Nasal Cannula Weight: 62.5 kg Body Mass Index (BMI) 26.9 Intake & Output: Intake and Output for Last 24 Hours 02/15/24 02/16/24 02/17/24 23:59 23:59 23:59 Intake Total 825 / 825 1465.50 / 1465.50 240 / 240 Output Total 1025 / 1025 475 / 875 1150 / 1150 Balance -200 / -200 990.50 / 590.50 -910 / -910 Lab / Micro Data 02/17/24 07:33 02/17/24 07:33 Labs: Laboratory Results - last 24 hr 02/17/24 07:33: WBC 9.9, RBC 3.06 L, Hgb 9.1 L, Hct 28.6 L, MCV 93.5, MCH 29.7, MCHC 31.8 L, RDW Std Deviation 47.0 H, RDW Coeff of John 15.0 H, Plt Count 371, MPV 9.7, Sodium 138, Potassium 3.4 L, Chloride 104, Carbon Dioxide 31.0, Anion Gap 4 L, BUN 11, Creatinine 0.48 L, Estim Creat Clear Calc 49.39, Est GFR (MDRD) Af Amer 160, Est GFR (MDRD) Non-Af 132, BUN/Creatinine Ratio 22.7 H, Glucose 123 H, Calcium 8.4 L, Phosphorus 2.3 L, Magnesium 1.9 Micro: Microbiology 02/15/24 14:00 Urine, Random Urine Culture - Preliminary GNR lactose senior product development manager 02/12/24 16:31 Sputum, Expectorated/Coughed Gram Stain - Final 02/12/24 16:31 Sputum, Expectorated/Coughed Respiratory Culture - Final Rhythm Strip Rhythm Strip: A-fib Rate: 90 Ectopy: None Physical Exam Narrative General: Alert, difficulty answering open-ended questions given her dysphagia HEENT: Atraumatic Eyes: Anicteric, normal conjunctiva Neck: Supple Respiratory: Clear to auscultation bilaterally, normal respiratory effort Cardiovascular: Regular rate GI: Soft, nondistended Extremities: No edema Musculoskeletal: Right lower extremity movement limited due to recent surgery Neuro: Patient with expressive and possibly some receptive aphasia Skin: No rashes appreciated Psych: Cooperative Assessment & Plan Assessment/Plan (1) Acute ischemic left MCA stroke: PLAN: Plan # Acute left MCA stroke with edema status post TNK, suspected to be embolic in nature -MRI revealed left MCA stroke -Patient back on her Eliquis -PT/OT-> will need placement -Continue supportive care -Continue statin -Will need outpatient follow-up with neurology -02/16: Awaiting pre-CERT for placement, continue supportive care # Right hip fracture -Status post right hip cephalomedullary fixation on 02/09/[address] Patel -Recommend wound check and staple removal 2 weeks postoperatively per Ortho note -Pain control -PT/OT -Patient to be placed -02/16: Continue PT/OT as tolerated #UTI -Patient with UA that was possibly suggestive of UTI though unclear, given normal white blood cell count and lack of systemic symptoms urine culture is awaited and is growing gram-negative cyn lactose senior product development manager -Given lack of systemic signs and symptoms patient treated a simple cystitis with Macrobid, will await cultures and sensitivities #pafib and hx VTEs -On Eliquis -Beta-estefania # History of coronary artery disease -With previous CABG and stent in 2021 -Eliquis, statin -Continue beta-estefania -02/16: On Eliquis and statin, no obvious or active bleeding appreciated, tolerating Eliquis. Resume patient's Imdur #Depression/anxiety -Continue home medications -02/16: Reviewed patient's external fill history given she is unable to answer my questions directly, does not appear to be feeling Wellbutrin anymore but is taking citalopram and is taking Seroquel 100 mg and mirtazapine 15. 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 Had been taken off of anticoagulation in the past due to bleeding from the lesion -It is unclear if patient was completely treated or not, will attempt to glean this information Chronic medical problems: #Dementia -It appears patient was feeling donepezil and memantine at home, do not suspect that these will have significant benefit, can consider resuming on outpatient basis # History of thyroid cancer status post thyroidectomy -Continue oral Synthroid # Left upper lobe lesion -1.8 to 2 cm mass in left upper lobe -Will need to follow-up on discharge for further workup and monitoring #GERD -Continue PPI #DVT ppx: Lovenox subcu Mellisa Lunsford MD Time spent in the patient's overall evaluation, decision-making process, review of diagnostic data, adjustment of management, discussion with other providers, nursing and ancillary staff involved in patient's care documentation, 52 Minutes Charges/Coding Visit Charges Inpatient E&M: 91207 Subs Hosp L3
[2024-02-17] MEDS: Na Biphos/Potassium Phosphate PACKET 1 PACKET PO (17:57)
[2024-02-17] MEDS: Mirtazapine 15 MG Tablet PO (21:10)
[2024-02-17] MEDS: Atorvastatin Calcium 40 MG Tablet PO (21:10)
[2024-02-17] MEDS: QUEtiapine 25 MG Tablet 50 MG PO (21:11)
[2024-02-18] VITALS (8 sets, daily range): BP systolic 123–173; BP diastolic 61–79; PULSE 54–92; RESP 14–16; TEMP 36.2–36.8; O2SAT 93–99; BMI 25.7
[2024-02-18 08:04] LABS: Absolute Lymphocyte Count 1.31 X10^3/uL (0.83-4.51); Absolute Neutrophil Count 7.8 X10^3/uL (2.0-7.7); Basophil# 0.05 X10^3/uL; Basophil% 0.5 % (0-1); Eosinophil# 0.16 X10^3/uL; Eosinophils% 1.6 % (0-5); Hematocrit 31.4 % (37-47); Lymphocyte # 1.31 X10^3/ul (0.83-4.51); Lymphocyte % 13.2 % (19-41); Mean Corp Hgb Conc 31.8 g/dL (32-36); Mean Corpuscular Hgb 30.4 pg (27.0-32.0); Mean Corpuscular Volume 95.4 fL (81-99); Mean Platelet Vol. 9.4 fl (6.2-12.0); NRBC Flagged by Analyzer 0.2 % (0-5); Neutrophil # 7.77 X10^3/uL (2.7-7.7); Neutrophil % 78.3 % (47-70); Platelet Count 388 K/mm3 (150-450); RBC Distribution Width CV 15.4 % (11.6-14.6); RBC Distribution Width SD 49.1 fl (35.1-43.9); Red Blood Count 3.29 M/mm3 (4.2-5.4); White Blood Count 9.9 K/mm3 (4.4-11.0)
[2024-02-18 08:24] LABS: Anion Gap 4 (5-15); BUN 10 mg/dL (7-18); BUN/Creat Ratio 18.6 RATIO (10-20); Calcium,Total 8.5 mg/dL (8.5-10.1); Chloride 106 mmol/L (98-107); Creatinine, Serum 0.54 mg/dL (0.55-1.02); EST Glomerular Filtration Rate 117 mL/min (>60); Est Glom Filt Rate - Afr Amer 142 mL/min (>60); Estimated Creatinine Clearance 48.41 ml/min; Glucose 108 mg/dL (74-106); Magnesium 1.9 mg/dL (1.6-2.6); Phosphorus 2.5 mg/dL (2.5-4.9); Potassium 3.5 mmol/L (3.5-5.1); Sodium Level 140 mmol/L (136-145)
[2024-02-18] MEDS: Citalopram 40 MG TABLET PO (11:01)
[2024-02-18] MEDS: APIXABAN 2.5 MG TABLET (WCH) PO ×2 (11:03→20:24)
[2024-02-18] MEDS: Metoprolol Tartrate 50 MG Tablet PO ×2 (11:03→20:23)
[2024-02-18] MEDS: Nitrofurantoin Macrocrystals 100 MG Capsule PO ×2 (11:04→20:25)
[2024-02-18] MEDS: Lisinopril 20 MG Tablet PO ×2 (11:04→20:25)
[2024-02-18] MEDS: Cholecalciferol (VIT D3) 25 MCG TABLET (1,000 UNITS) PO (11:04)
[2024-02-18] MEDS: Pantoprazole Sodium 40 MG Tablet PO (11:05)
[2024-02-18] MEDS: Calcium Carbonate 500 MG Tablet PO ×2 (11:09→17:40)
[2024-02-18] MEDS: Acetaminophen 500 MG Tablet 1000 MG PO ×2 (14:51→20:24)
--- NOTE | 2024-02-18 16:58 | PN.HOSP_ITS ---
Reason for Visit Reason for Visit: Diagnoses Old myocardial infarction (02/08/24) Unspecified atrial fibrillation (02/08/24) Chronic diastolic (congestive) heart failure (02/08/24) Cerebral infarction due to unspecified occlusion or stenosis of left middle cerebral artery (02/08/24) Chronic obstructive pulmonary disease, unspecified (02/08/24) Other nonspecific abnormal finding of lung field (02/08/24) Nondisplaced intertrochanteric fracture of right femur, initial encounter for closed fracture (02/08/24) Tobacco use (02/08/24) Subjective Subjective Patient sitting semirecumbent in bed, was unable to glean any specific complaints, did assist patient with turning the television on and finding a channel Objective Data Objective Data Vital Signs: Vital Signs Temp Pulse Resp BP Pulse Ox O2 Del Method O2 Flow Rate 98.1 F 84 14 152/65 H 95 Room Air 2 02/18/24 10:55 02/18/24 11:03 02/18/24 10:55 02/18/24 11:03 02/18/24 12:08 02/18/24 15:15 02/18/24 12:08 Oxygen Flow Rate (L/min) 2 Oxygen Delivery Method Room Air Weight: 59.9 kg Body Mass Index (BMI) 25.7 Intake & Output: Intake and Output for Last 24 Hours 02/16/24 02/17/24 02/18/24 23:59 23:59 23:59 Intake Total 1465.50 / 1465.50 480 / 480 200 / 200 Output Total 475 / 875 1150 / 1400 500 / 500 Balance 990.50 / 590.50 -670 / -920 -300 / -300 Lab / Micro Data 02/18/24 07:45 02/18/24 07:45 Labs: Laboratory Results - last 24 hr 02/18/24 07:45: WBC 9.9, RBC 3.29 L, Hgb 10.0 L, Hct 31.4 L, MCV 95.4, MCH 30.4, MCHC 31.8 L, RDW Std Deviation 49.1 H, RDW Coeff of John 15.4 H, Plt Count 388, MPV 9.4, Immature Gran % (Auto) 1.400 H, Neut % (Auto) 78.3 H, Lymph % (Auto) 13.2 L, [place] % (Auto) 5.0, Eos % (Auto) 1.6, Baso % (Auto) 0.5, Absolute Neuts (auto) 7.8 H, Absolute Lymphs (auto) 1.31, Nucleated RBC % 0.2, Sodium 140, Potassium 3.5, Chloride 106, Carbon Dioxide 31.0, Anion Gap 4 L, BUN 10, C reatinine 0.54 L, Estim Creat Clear Calc 48.41, Est GFR (MDRD) Af Amer 142, Est GFR (MDRD) Non-Af 117, BUN/Creatinine Ratio 18.6, Glucose 108 H, Calcium 8.5, Phosphorus 2.5, Magnesium 1.9 Micro: Microbiology 02/15/24 14:00 Urine, Random Urine Culture - Final Escherichia coli 02/12/24 16:31 Sputum, Expectorated/Coughed Gram Stain - Final 02/12/24 16:31 Sputum, Expectorated/Coughed Respiratory Culture - Final Rhythm Strip Rhythm Strip: A-fib Rate: 90 Ectopy: None Physical Exam Narrative General: Continues to have difficulty with aphasia but is awake and alert HEENT: Atraumatic, normocephalic Eyes: extraocular movements grossly intact Neck: Supple Respiratory: normal respiratory effort Cardiovascular: no edema appreciated GI: nondistended Extremities: Moving extremities in bed Neuro: Aphasia noted Psych: Difficulty cooperating due to her aphasia Assessment & Plan Assessment/Plan (1) Acute ischemic left MCA stroke: PLAN: Plan # Acute left MCA stroke with edema status post TNK, suspected to be embolic in nature -MRI revealed left MCA stroke -Patient back on her Eliquis -PT/OT-> will need placement -Continue supportive care -Continue statin -Will need outpatient follow-up with neurology -02/16: Awaiting pre-CERT for placement, continue supportive care -02/17: Continue Eliquis and statin, awaiting insurance authorization # Right hip fracture -Status post right hip cephalomedullary fixation on 02/09/[address] Patel -Recommend wound check and staple removal 2 weeks postoperatively per Ortho note -Pain control -PT/OT -Patient to be placed -02/16: Continue PT/OT as tolerated -02/17: Patient remains on scheduled Tylenol, can likely change this to as needed soon, continue PT/OT #UTI-secondary to pansensitive E. coli -Patient with UA that was possibly suggestive of UTI though unclear, given normal white blood cell count and lack of systemic symptoms urine culture is awaited and is growing gram-negative cyn lactose merry go round operator -Given lack of systemic signs and symptoms patient treated a simple cystitis with Macrobid, will await cultures and sensitivities -02/17: This is sensitive to Macrobid so we will continue #pafib and hx VTEs -On Eliquis -Beta-estefania -02/17: No bleeding appreciated and hemoglobin stable, continue Eliquis # History of coronary artery disease -With previous CABG and stent in 2021 -Eliquis, statin -Continue beta-estefania -02/16: On Eliquis and statin, no obvious or active bleeding appreciated, tolerating Eliquis. Resume patient's Imdur -02/17: Unable to resume Imdur as it cannot be crushed #Depression/anxiety -Continue home medications -02/16: Reviewed patient's external fill history given she is unable to answer my questions directly, does not appear to be feeling Wellbutrin anymore but is taking citalopram and is taking Seroquel 100 mg and mirtazapine 15. 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 Had been taken off of anticoagulation in the past due to bleeding from the lesion -It is unclear if patient was completely treated or not, will attempt to glean this information -02/17: No active bleeding noted, patient unable to give this information, no family at bedside at time of evaluation Chronic medical problems: #Dementia -It appears patient was feeling donepezil and memantine at home, do not suspect that these will have significant benefit, can consider resuming on outpatient basis # History of thyroid cancer status post thyroidectomy -Continue oral Synthroid # Left upper lobe lesion -1.8 to 2 cm mass in left upper lobe -Will need to follow-up on discharge for further workup and monitoring #GERD -Continue PPI #DVT ppx: Lovenox subcu Mellisa Lunsford MD Charges/Coding Visit Charges Inpatient E&M: 77599 Subs Hosp L1
[2024-02-18] MEDS: oxyCODONE 5 MG Tablet 2.5 MG PO (17:40)
[2024-02-18] MEDS: Atorvastatin Calcium 40 MG Tablet PO (20:24)
[2024-02-18] MEDS: Mirtazapine 15 MG Tablet PO (20:24)
[2024-02-18] MEDS: QUEtiapine 25 MG Tablet 50 MG PO (20:25)
[2024-02-19] VITALS (11 sets, daily range): BP systolic 137–170; BP diastolic 64–107; PULSE 72–98; RESP 16–18; TEMP 36.3–36.6; O2SAT 94–97; BMI 25.7; BMI 27.3
[2024-02-19] MEDS: Acetaminophen 500 MG Tablet 1000 MG PO ×3 (05:39→20:37)
[2024-02-19] MEDS: Levothyroxine 75 MCG Tablet PO (05:40)
[2024-02-19 08:34] LABS: Hematocrit 32.8 % (37-47); Hemoglobin 10.1 g/dL (12.0-15.0); Mean Corp Hgb Conc 30.8 g/dL (32-36); Mean Corpuscular Hgb 29.5 pg (27.0-32.0); Mean Corpuscular Volume 95.9 fL (81-99); Mean Platelet Vol. 9.7 fl (6.2-12.0); Platelet Count 406 K/mm3 (150-450); RBC Distribution Width SD 51.1 fl (35.1-43.9); Red Blood Count 3.42 M/mm3 (4.2-5.4); White Blood Count 8.7 K/mm3 (4.4-11.0)
[2024-02-19 08:54] LABS: Anion Gap 4 (5-15); BUN 14 mg/dL (7-18); BUN/Creat Ratio 21.1 RATIO (10-20); Calcium,Total 8.4 mg/dL (8.5-10.1); Chloride 104 mmol/L (98-107); Creatinine, Serum 0.66 mg/dL (0.55-1.02); EST Glomerular Filtration Rate 92 mL/min (>60); Est Glom Filt Rate - Afr Amer 111 mL/min (>60); Estimated Creatinine Clearance 49.73 ml/min; Glucose 113 mg/dL (74-106); Magnesium 2.1 mg/dL (1.6-2.6); Phosphorus 2.7 mg/dL (2.5-4.9); Potassium 3.4 mmol/L (3.5-5.1); Sodium Level 139 mmol/L (136-145)
[2024-02-19] MEDS: Metoprolol Tartrate 50 MG Tablet PO ×2 (09:42→20:39)
[2024-02-19] MEDS: APIXABAN 2.5 MG TABLET (WCH) PO (09:42)
[2024-02-19] MEDS: Citalopram 40 MG TABLET PO (09:42)
[2024-02-19] MEDS: Pantoprazole Sodium 40 MG Tablet PO (09:43)
[2024-02-19] MEDS: Lisinopril 20 MG Tablet PO ×2 (09:43→20:37)
[2024-02-19] MEDS: Cholecalciferol (VIT D3) 25 MCG TABLET (1,000 UNITS) PO (09:43)
[2024-02-19] MEDS: Potassium Chloride Oral Soln 20 MEQ/15 ML UDC PO (09:47)
[2024-02-19] MEDS: Calcium Carbonate 500 MG Tablet PO ×3 (09:47→17:53)
[2024-02-19] MEDS: Nitrofurantoin Macrocrystals 100 MG Capsule PO ×2 (10:38→20:38)
--- NOTE | 2024-02-19 15:55 | CASEMGMT ---
SW called patient's daughter Shyanne and let her know that we are still waiting on pre-cert for patient. Fern Carrera [employer] NIKITA
--- NOTE | 2024-02-19 16:03 | PN.HOSP_ITS ---
Reason for Visit Reason for Visit: Diagnoses Old myocardial infarction (02/08/24) Unspecified atrial fibrillation (02/08/24) Chronic diastolic (congestive) heart failure (02/08/24) Cerebral infarction due to unspecified occlusion or stenosis of left middle cerebral artery (02/08/24) Chronic obstructive pulmonary disease, unspecified (02/08/24) Other nonspecific abnormal finding of lung field (02/08/24) Nondisplaced intertrochanteric fracture of right femur, initial encounter for closed fracture (02/08/24) Tobacco use (02/08/24) Subjective Subjective Patient resting in bed, said no when asking individually about chest pain, shortness of breath, abdominal pain, burning on urination Objective Data Objective Data Vital Signs: Vital Signs Temp Pulse Resp BP Pulse Ox O2 Del Method O2 Flow Rate 97.7 F L 78 18 142/107 H 96 Room Air 3 02/19/24 15:25 02/19/24 15:25 02/19/24 15:25 02/19/24 15:25 02/19/24 15:25 02/19/24 15:02/19/24 14:26 Oxygen Flow Rate (L/min) 3 Oxygen Delivery Method Room Air Weight: 63.4 kg Body Mass Index (BMI) 27.3 Intake & Output: Intake and Output for Last 24 Hours 02/17/24 02/18/24 02/19/24 23:59 23:59 23:59 Intake Total 480 / 480 320 / 320 120 / 120 Output Total 1150 / 1400 500 / 700 600 / 600 Balance -670 / -920 -180 / -380 -480 / -480 Lab / Micro Data 02/19/24 07:48 02/19/24 07:48 Labs: Laboratory Results - last 24 hr 02/19/24 07:48: WBC 8.7, RBC 3.42 L, Hgb 10.1 L, Hct 32.8 L, MCV 95.9, MCH 29.5, MCHC 30.8 L, RDW Std Deviation 51.1 H, RDW Coeff of John 16.0 H, Plt Count 406, MPV 9.7, Sodium 139, Potassium 3.4 L, Chloride 104, Carbon Dioxide 31.0, Anion Gap 4 L, BUN 14, Creatinine 0.66, Estim Creat Clear Calc 49.73, Est GFR (MDRD) Af Amer 111, Est GFR (MDRD) Non-Af 92, BUN/Creatinine Ratio 21.1 H, Glucose 113 H, Calcium 8.4 L, Phosphorus 2.7, Magnesium 2.1 Micro: Microbiology 02/15/24 14:00 Urine, Random Urine Culture - Final Escherichia coli 02/12/24 16:31 Sputum, Expectorated/Coughed Gram Stain - Final 02/12/24 16:31 Sputum, Expectorated/Coughed Respiratory Culture - Final Rhythm Strip Rhythm Strip: A-fib Rate: 90 Ectopy: None Physical Exam Narrative General: Awake and alert, difficulty with aphasia HEENT: Atraumatic, normocephalic Eyes: extraocular movements grossly intact Neck: Supple Respiratory: normal respiratory effort, no wheezes appreciated Cardiovascular: no edema appreciated GI: nondistended Extremities: Moving extremities in bed Neuro: Aphasia noted Psych: Pleasant Assessment & Plan Assessment/Plan (1) Acute ischemic left MCA stroke: PLAN: Plan # Acute left MCA stroke with edema status post TNK, suspected to be embolic in nature -MRI revealed left MCA stroke -Patient back on her Eliquis -PT/OT-> will need placement -Continue supportive care -Continue statin -Will need outpatient follow-up with neurology -02/16: Awaiting pre-CERT for placement, continue supportive care -02/17: Continue Eliquis and statin, awaiting insurance authorization -02/18: Given age, kidney function, weight patient qualifies for 5 twice daily of Eliquis so this has been started # Right hip fracture -Status post right hip cephalomedullary fixation on 02/09/[address] Patel -Recommend wound check and staple removal 2 weeks postoperatively per Ortho note -Pain control -PT/OT -Patient to be placed -02/16: Continue PT/OT as tolerated -02/17: Patient remains on scheduled Tylenol, can likely change this to as needed soon, continue PT/OT -02/18: Continues to work with therapy, notes reviewed #UTI-secondary to pansensitive E. coli -Patient with UA that was possibly suggestive of UTI though unclear, given normal white blood cell count and lack of systemic symptoms urine culture is awaited and is growing gram-negative cyn lactose composition stone applicator -Given lack of systemic signs and symptoms patient treated a simple cystitis with Macrobid, will await cultures and sensitivities -02/17: This is sensitive to Macrobid so we will continue -02/18: Urine somewhat darker today but patient is on Macrobid which is covering the E. coli growing from urine culture, creatinine trended up slightly as well will give gentle IV fluids #pafib and hx VTEs -On Eliquis -Beta-estefania -02/17: No bleeding appreciated and hemoglobin stable, continue Eliquis -02/18: Patient qualifies for increased dose of Eliquis with this been increased # History of coronary artery disease -With previous CABG and stent in 2021 -Eliquis, statin -Continue beta-estefania -02/16: On Eliquis and statin, no obvious or active bleeding appreciated, tolerating Eliquis. Resume patient's Imdur -02/17: Unable to resume Imdur as it cannot be crushed -02/18: Eliquis increased, continue statin #Depression/anxiety -Continue home medications -02/16: Reviewed patient's external fill history given she is unable to answer my questions directly, does not appear to be feeling Wellbutrin anymore but is taking citalopram and is taking Seroquel 100 mg and mirtazapine 15. Resume mirtazapine, will keep Seroquel at 50 mg and as long as patient is not too sedated can consider increasing if needed -02/17: Seems to be tolerating present medications well -02/18: Patient tolerating current medications well, on all of my exams she is pleasant, calm, attempts to be cooperative. There is concern about her lorazepam as she had previously been prescribed at this and often seems to not do as well if she is taken off of it per family. Does have a history of overusing this. Has not had a dose since the and had only sporadically gotten it over the several days prior so patient is not presently withdrawing however given she has done well on this in the past with her anxiety we will add small dose as a as needed for significant anxiety but would use this with caution. Again she is outside of the window for withdrawal and had only gotten it sparingly for several days prior to 02/14 and has had none since then with no signs or symptoms withdrawal. Additionally does not seem that she had filled it since December. 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 Had been taken off of anticoagulation in the past due to bleeding from the lesion -It is unclear if patient was completely treated or not, will attempt to glean this information -02/17: No active bleeding noted, patient unable to give this information, no family at bedside at time of evaluation -02/18: Hemoglobin has remained stable, her Eliquis has been increased to appropriate dose given her kidney function, age, weight. She did have KRISTIN at 1 point and suspect this is why she was on the lower dose as she also weighed slightly less but now meets criteria for full dose Chronic medical problems: #Dementia -It appears patient was feeling donepezil and memantine at home, do not suspect that these will have significant benefit, can consider resuming on outpatient basis # History of thyroid cancer status post thyroidectomy -Continue oral Synthroid # Left upper lobe lesion -1.8 to 2 cm mass in left upper lobe -Will need to follow-up on discharge for further workup and monitoring #GERD -Continue PPI #DVT ppx: Lovenox subcu Mellisa Lunsford MD Time spent in the patient's overall evaluation,decision-making process, review of diagnostic data, adjustment of management, discussion with other providers, nursing nursing and ancillary staff involved in patient's care documentation, 37 Minutes Charges/Coding Visit Charges Inpatient E&M: 15005 Subs Hosp L2
[2024-02-19] MEDS: 0.9% Normal Saline (1000mL) 1,000 ML 50 ML IV (18:00)
[2024-02-19] MEDS: Atorvastatin Calcium 40 MG Tablet PO (20:38)
[2024-02-19] MEDS: APIXABAN 5 MG TABLET PO (20:38)
[2024-02-19] MEDS: QUEtiapine 25 MG Tablet 50 MG PO (20:38)
[2024-02-19] MEDS: Mirtazapine 15 MG Tablet PO (20:40)
[2024-02-19] MEDS: Albuterol 2.5 MG/3 ML VIAL.NEB. INHALATION (20:57)
[2024-02-20] VITALS (7 sets, daily range): BP systolic 137–168; BP diastolic 65–94; PULSE 59–92; RESP 16–18; TEMP 36.7–37.2; O2SAT 94–98; BMI 27.3; BMI 26.9
[2024-02-20] MEDS: Acetaminophen 500 MG Tablet 1000 MG PO ×3 (05:27→21:08)
[2024-02-20] MEDS: Levothyroxine 75 MCG Tablet PO (05:27)
[2024-02-20 07:02] LABS: AST(SGOT) 20 U/L (15-37); Alanine Aminotransfer ALT/SGPT 15 U/L (13-56); Albumin, Serum 2.4 g/dL (3.2-5.0); Alkaline Phosphatase 114 U/L (45-117); Globulin 3.9 g/dL (2.2-4.2); Protein, Total 6.3 g/dL (6.4-8.2)
[2024-02-20 09:26] LABS: Anion Gap 5 (5-15); BUN 14 mg/dL (7-18); Calcium,Total 8.3 mg/dL (8.5-10.1); Chloride 108 mmol/L (98-107); EST Glomerular Filtration Rate 86 mL/min (>60); Est Glom Filt Rate - Afr Amer 104 mL/min (>60); Estimated Creatinine Clearance 49.39 ml/min; Glucose 93 mg/dL (74-106); Potassium 3.4 mmol/L (3.5-5.1); Sodium Level 142 mmol/L (136-145)
[2024-02-20] MEDS: Lisinopril 20 MG Tablet PO ×2 (09:34→21:08)
[2024-02-20] MEDS: Citalopram 40 MG TABLET PO (09:35)
[2024-02-20] MEDS: Nitrofurantoin Macrocrystals 100 MG Capsule PO ×2 (09:35→21:07)
[2024-02-20] MEDS: APIXABAN 5 MG TABLET PO ×2 (09:35→21:06)
[2024-02-20] MEDS: Cholecalciferol (VIT D3) 25 MCG TABLET (1,000 UNITS) PO (09:35)
[2024-02-20] MEDS: Metoprolol Tartrate 50 MG Tablet PO ×2 (09:35→21:06)
[2024-02-20] MEDS: Calcium Carbonate 500 MG Tablet PO ×3 (09:50→17:02)
[2024-02-20 11:18] LABS: Bacteria 0 SEEN /hpf (None Seen); Mucous, Urine 0 SEEN /hpf (<or=2+)
[2024-02-20 11:22] LABS: Color, Urine Yellow (Yellow); Glucose, Dipstick Normal (Normal); Ketone-Dipstick Negative (Negative); Leukocyte Esterase-Dipstick 25 /ul (Negative); Nitrite-Dipstick Negative (Negative); Occult Blood-Urine 10 /ul (Negative); Protein-Dipstick 15 mg/dl (Negative); Specific Gravity, Urine 1.015 (1.002-1.030); Urine Bilirubin Dipstick Negative (Negative); Urine Clarity Clear (Clear); Urine Urobilinogen 4 mg/dl (Normal)
[2024-02-20 11:34] LABS: Red Blood Cells-Urine 0-5 SEEN /hpf (0-5); Squamous Epithelial Cells - UA 5-10 SEEN /hpf (5-10); White Blood Cells 0-5 SEEN /hpf (0-5)
[2024-02-20] MEDS: Potassium Chloride Oral Soln 20 MEQ/15 ML UDC 40 MEQ PO (12:58)
--- NOTE | 2024-02-20 14:29 | PCM.PN.HOSP ---
Reason for Visit Reason for Visit: Diagnoses Old myocardial infarction (02/08/24) Unspecified atrial fibrillation (02/08/24) Chronic diastolic (congestive) heart failure (02/08/24) Cerebral infarction due to unspecified occlusion or stenosis of left middle cerebral artery (02/08/24) Chronic obstructive pulmonary disease, unspecified (02/08/24) Other nonspecific abnormal finding of lung field (02/08/24) Nondisplaced intertrochanteric fracture of right femur, initial encounter for closed fracture (02/08/24) Tobacco use (02/08/24) Subjective Subjective Patient resting in bed again denies shortness of breath, chest pain, abdominal pain Objective Data Objective Data Vital Signs: Vital Signs Temp Pulse Resp BP Pulse Ox O2 Del Method O2 Flow Rate 98.1 F 88 16 165/66 H 98 Nasal Cannula 2 02/20/24 09:00 02/20/24 09:35 02/20/24 09:00 02/20/24 09:35 02/20/24 09:00 02/20/24 10:00 02/20/24 10:00 Oxygen Flow Rate (L/min) 2 Oxygen Delivery Method Nasal Cannula Weight: 62.5 kg Body Mass Index (BMI) 26.9 Intake & Output: Intake and Output for Last 24 Hours 02/18/24 02/19/24 02/20/24 23:59 23:59 23:59 Intake Total 320 / 320 360 / 360 Output Total 500 / 700 750 / 1150 400 / 400 Balance -180 / -380 -390 / -790 -400 / -400 Lab / Micro Data 02/19/24 07:48 02/20/24 05:20 Labs: Laboratory Results - last 24 hr 02/20/24 05:20: Sodium 142, Potassium 3.4 L, Chloride 108 H, Carbon Dioxide 28.0, Anion Gap 5, BUN 14, Creatinine 0.70, Estim Creat Clear Calc 49.39, Est GFR (MDRD) Af Amer 104, Est GFR (MDRD) Non-Af 86, BUN/Creatinine Ratio 20.0, Glucose 93, Calcium 8.3 L, Total Bilirubin 1.00, Direct Bilirubin 0.30, AST 20, ALT 15, Alkaline Phosphatase 114, Total Protein 6.3 L, Albumin 2.4 L, Globulin 3.9 02/20/24 11:10: Urine Color Yellow, Urine Clarity Clear, Urine pH 7.0, Ur Specific [place] 1.015, Urine Protein 15 H, Urine Glucose (UA) Normal, Urine Ketones Negative, Urine Occult Blood 10 H, Urine Nitrite Negative, Urine Bilirubin Negative, Urine Urobilinogen 4 H, Ur Leukocyte Esterase 25 H, Urine RBC 0-5 SEEN, Urine WBC 0-5 SEEN, Ur Squamous Epith Cells 5-10 SEEN, Urine Bacteria 0 SEEN, Urine Mucus 0 SEEN Micro: Microbiology 02/15/24 14:00 Urine, Random Urine Culture - Final Escherichia coli 02/12/24 16:31 Sputum, Expectorated/Coughed Gram Stain - Final 02/12/24 16:31 Sputum, Expectorated/Coughed Respiratory Culture - Final Rhythm Strip Rhythm Strip: A-fib Rate: 90 Ectopy: None Physical Exam Narrative General: Awake and alert, difficulty with aphasia HEENT: Atraumatic, normocephalic Eyes: extraocular movements grossly intact Neck: Supple Respiratory: normal respiratory effort, no wheezes appreciated, difficult to hear at bases due to patient not taking deep breaths when instructed to do so Cardiovascular: no edema appreciated GI: nondistended Extremities: Moving extremities in bed Neuro: Aphasia noted Psych: Pleasant, attempts to be cooperative Assessment & Plan Assessment/Plan (1) Acute ischemic left MCA stroke: PLAN: Plan # Acute left MCA stroke with edema status post TNK, suspected to be embolic in nature -MRI revealed left MCA stroke -Patient back on her Eliquis -PT/OT-> will need placement -Continue supportive care -Continue statin -Will need outpatient follow-up with neurology -02/16: Awaiting pre-CERT for placement, continue supportive care -02/17: Continue Eliquis and statin, awaiting insurance authorization -02/18: Given age, kidney function, weight patient qualifies for 5 twice daily of Eliquis so this has been started -02/19: Discussed with case management and social work, we are still awaiting insurance authorization. Of note he was suspected patient had slightly low O2 overnight, unclear significance as patient 98% on 2 L so wean off O2, patient denies shortness of breath, given stability with good O2 sats of present do not feel this needs to be further worked up, unclear if there was a port pleth or other confounding variable but will continue to monitor. Will also order incentive spirometer in the event patient able to cooperate to use # Right hip fracture -Status post right hip cephalomedullary fixation on 02/09/[address] Patel -Recommend wound check and staple removal 2 weeks postoperatively per Ortho note -Pain control -PT/OT -Patient to be placed -02/16: Continue PT/OT as tolerated -02/17: Patient remains on scheduled Tylenol, can likely change this to as needed soon, continue PT/OT -02/18: Continues to work with therapy, notes reviewed -02/19: Patient will need to follow-up with Dr. Patel 02/24/2024 and have alfonso removed at that time. Continue to mobilize as able #UTI-secondary to pansensitive E. 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 coli growing from urine culture, creatinine trended up slightly as well will give gentle IV fluids -02/19: Repeat UA fairly benign, Macrobid can cause darkened urine and this should resolve once medication is finished #pafib and hx VTEs -On Eliquis -Beta-estefania -02/17: No bleeding appreciated and hemoglobin stable, continue Eliquis -02/18: Patient qualifies for increased dose of Eliquis with this been increased -02/19: Tolerating increased dose of Eliquis # History of coronary artery disease -With previous CABG and stent in 2021 -Eliquis, statin -Continue beta-estefania -02/16: On Eliquis and statin, no obvious or active bleeding appreciated, tolerating Eliquis. Resume patient's Imdur -02/17: Unable to resume Imdur as it cannot be crushed -02/18: Eliquis increased, continue statin -02/19: Continuing metoprolol and atorvastatin #Depression/anxiety -Continue home medications -02/16: Reviewed patient's external fill history given she is unable to answer my questions directly, does not appear to be feeling Wellbutrin anymore but is taking citalopram and is taking Seroquel 100 mg and mirtazapine 15. Resume mirtazapine, will keep Seroquel at 50 mg and as long as patient is not too sedated can consider increasing if needed -02/17: Seems to be tolerating present medications well -02/18: Patient tolerating current medications well, on all of my exams she is pleasant, calm, attempts to be cooperative. There is concern about her lorazepam as she had previously been prescribed at this and often seems to not do as well if she is taken off of it per family. Does have a history of overusing this. Has not had a dose since the and had only sporadically gotten it over the several days prior so patient is not presently withdrawing however given she has done well on this in the past with her anxiety we will add small dose as a as needed for significant anxiety but would use this with caution. Again she is outside of the window for withdrawal and had only gotten it sparingly for several days prior to 02/14 and has had none since then with no signs or symptoms withdrawal. Additionally does not seem that she had filled it since December. -02/19: Low-dose Ativan available if needed as a as needed however patient pleasant, calm, attempts to be cooperative and does not appear anxious. 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 Had been taken off of anticoagulation in the past due to bleeding from the lesion -It is unclear if patient was completely treated or not, will attempt to glean this information -02/17: No active bleeding noted, patient unable to give this information, no family at bedside at time of evaluation -02/18: Hemoglobin has remained stable, her Eliquis has been increased to appropriate dose given her kidney function, age, weight. She did have KRISTIN at 1 point and suspect this is why she was on the lower dose as she also weighed slightly less but now meets criteria for full dose -02/19: No bleeding appreciated on full dose Eliquis so this was just increased, continue to monitor Chronic medical problems: #Dementia -It appears patient was feeling donepezil and memantine at home, do not suspect that these will have significant benefit, can consider resuming on outpatient basis # History of thyroid cancer status post thyroidectomy -Continue oral Synthroid # Left upper lobe lesion -1.8 to 2 cm mass in left upper lobe -Will need to follow-up on discharge for further workup and monitoring #GERD -Continue PPI #DVT ppx: Lovenox subcu Mellisa Lunsford MD Time spent in the patient's overall evaluation,decision-making process, review of diagnostic data, adjustment of management, discussion with other providers, nursing nursing and ancillary staff involved in patient's care documentation, 35 Minutes Charges/Coding Visit Charges Inpatient E&M: 74566 Subs Hosp L2
[2024-02-20] MEDS: Potassium Chloride Oral Tablet 20 MEQ 40 MEQ PO (17:02)
[2024-02-20] MEDS: Atorvastatin Calcium 40 MG Tablet PO (21:06)
[2024-02-20] MEDS: QUEtiapine 25 MG Tablet 50 MG PO (21:07)
[2024-02-20] MEDS: Mirtazapine 15 MG Tablet PO (21:07)
[2024-02-21] VITALS (11 sets, daily range): BP systolic 115–168; BP diastolic 58–89; PULSE 79–115; RESP 14–20; TEMP 36.5–36.9; O2SAT 91–99; BMI 26.9; BMI 25.9
[2024-02-21] MEDS: Acetaminophen 500 MG Tablet 1000 MG PO ×3 (06:45→21:09)
[2024-02-21] MEDS: Levothyroxine 75 MCG Tablet PO (06:45)
[2024-02-21] MEDS: 0.9% Saline Lock 10 ML Syringe IV (08:34)
[2024-02-21] MEDS: APIXABAN 5 MG TABLET PO ×2 (08:35→21:09)
[2024-02-21] MEDS: Citalopram 40 MG TABLET PO (08:36)
[2024-02-21] MEDS: Metoprolol Tartrate 50 MG Tablet PO ×2 (08:36→21:09)
[2024-02-21] MEDS: Nitrofurantoin Macrocrystals 100 MG Capsule PO ×2 (08:36→21:09)
[2024-02-21] MEDS: Cholecalciferol (VIT D3) 25 MCG TABLET (1,000 UNITS) PO (08:37)
[2024-02-21] MEDS: Lisinopril 20 MG Tablet PO ×2 (08:37→21:09)
[2024-02-21] MEDS: Calcium Carbonate 500 MG Tablet PO ×3 (08:39→16:10)
[2024-02-21] MEDS: Pantoprazole Sodium 40 MG Tablet PO (08:42)
--- NOTE | 2024-02-21 08:46 | PCM.PN.HOSP ---
Reason for Visit Reason for Visit: Diagnoses Old myocardial infarction (02/08/24) Unspecified atrial fibrillation (02/08/24) Chronic diastolic (congestive) heart failure (02/08/24) Cerebral infarction due to unspecified occlusion or stenosis of left middle cerebral artery (02/08/24) Chronic obstructive pulmonary disease, unspecified (02/08/24) Other nonspecific abnormal finding of lung field (02/08/24) Nondisplaced intertrochanteric fracture of right femur, initial encounter for closed fracture (02/08/24) Tobacco use (02/08/24) Subjective Subjective Patient sitting up, very fragmented but was able to ask if her daughter or grandchildren have come by and was able to ask for coffee with cream Objective Data Objective Data Vital Signs: Vital Signs Temp Pulse Resp BP Pulse Ox O2 Del Method O2 Flow Rate 98.5 F 80 14 142/85 H 92 Nasal Cannula 2 02/21/24 08:28 02/21/24 08:28 02/21/24 08:28 02/21/24 08:28 02/21/24 08:28 02/21/24 08:28 02/21/24 08:28 Oxygen Flow Rate (L/min) 2 Oxygen Delivery Method Nasal Cannula Weight: 60.1 kg Body Mass Index (BMI) 25.9 Intake & Output: Intake and Output for Last 24 Hours 02/19/24 02/20/24 02/21/24 23:59 23:59 23:59 Intake Total 360 / 360 1000 / 1000 360 / 360 Output Total 750 / 1150 850 / 850 200 / 200 Balance -390 / -790 150 / 150 160 / 160 Lab / Micro Data 02/19/24 07:48 02/21/24 09:10 Labs: Laboratory Results - last 24 hr 02/20/24 05:20: Sodium 142, Potassium 3.4 L, Chloride 108 H, Carbon Dioxide 28.0, Anion Gap 5, BUN 14, Creatinine 0.70, Estim Creat Clear Calc 49.39, Est GFR (MDRD) Af Amer 104, Est GFR (MDRD) Non-Af 86, BUN/Creatinine Ratio 20.0, Glucose 93, Calcium 8.3 L 02/20/24 11:10: Urine Color Yellow, Urine Clarity Clear, Urine pH 7.0, Ur Specific [place] 1.015, Urine Protein 15 H, Urine Glucose (UA) Normal, Urine Ketones Negative, Urine Occult Blood 10 H, Urine Nitrite Negative, Urine Bilirubin Negative, Urine Urobilinogen 4 H, Ur Leukocyte Esterase 25 H, Urine RBC 0-5 SEEN, Urine WBC 0-5 SEEN, Ur Squamous Epith Cells 5-10 SEEN, Urine Bacteria 0 SEEN, Urine Mucus 0 SEEN Micro: Microbiology 02/15/24 14:00 Urine, Random Urine Culture - Final Escherichia coli 02/12/24 16:31 Sputum, Expectorated/Coughed Gram Stain - Final 02/12/24 16:31 Sputum, Expectorated/Coughed Respiratory Culture - Final Rhythm Strip Rhythm Strip: A-fib Rate: 90 Ectopy: None Physical Exam Narrative General: Awake and alert, difficulty with aphasia, slightly more communicative today HEENT: Atraumatic, normocephalic Eyes: extraocular movements grossly intact Neck: Supple Respiratory: normal respiratory effort, no wheezes appreciated Cardiovascular: no edema appreciated GI: nondistended Extremities: Moving extremities in bed Neuro: Aphasia noted Psych: Pleasant, attempts to be cooperative Assessment & Plan Assessment/Plan (1) Acute ischemic left MCA stroke: PLAN: Plan # Acute left MCA stroke with edema status post TNK, suspected to be embolic in nature -MRI revealed left MCA stroke -Patient back on her Eliquis -PT/OT-> will need placement -Continue supportive care -Continue statin -Will need outpatient follow-up with neurology -02/16: Awaiting pre-CERT for placement, continue supportive care -02/17: Continue Eliquis and statin, awaiting insurance authorization -02/18: Given age, kidney function, weight patient qualifies for 5 twice daily of Eliquis so this has been started -02/19: Discussed with case management and social work, we are still awaiting insurance authorization. Of note she was suspected patient had slightly low O2 overnight, unclear significance as patient 98% on 2 L so wean off O2, patient denies shortness of breath, given stability with good O2 sats of present do not feel this needs to be further worked up, unclear if there was a port pleth or other confounding variable but will continue to monitor. Will also order incentive spirometer in the event patient able to cooperate to use -02/20: Patient stable, continues to await insurance authorization # Right hip fracture -Status post right hip cephalomedullary fixation on 02/09/[address] Patel -Recommend wound check and staple removal 2 weeks postoperatively per Ortho note -Pain control -PT/OT -Patient to be placed -02/16: Continue PT/OT as tolerated -02/17: Patient remains on scheduled Tylenol, can likely change this to as needed soon, continue PT/OT -02/18: Continues to work with therapy, notes reviewed -02/19: Patient will need to follow-up with Dr. Patel 02/24/2024 and have alfonso removed at that time. Continue to mobilize as able -02/20: Continuing supportive care #UTI-secondary to pansensitive E. 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 coli growing from urine culture, creatinine trended up slightly as well will give gentle IV fluids -02/19: Repeat UA fairly benign, Macrobid can cause darkened urine and this should resolve once medication is finished -02/20: Patient remains on antibiotics and has been stable #pafib and hx VTEs -On Eliquis -Beta-estefania -02/17: No bleeding appreciated and hemoglobin stable, continue Eliquis -02/18: Patient qualifies for increased dose of Eliquis with this been increased -02/19: Tolerating increased dose of Eliquis -02/20: Continues to tolerate Eliquis # History of coronary artery disease -With previous CABG and stent in 2021 -Eliquis, statin -Continue beta-estefania -02/16: On Eliquis and statin, no obvious or active bleeding appreciated, tolerating Eliquis. Resume patient's Imdur -02/17: Unable to resume Imdur as it cannot be crushed -02/18: Eliquis increased, continue statin -02/19: Continuing metoprolol and atorvastatin -02/20: Continue Eliquis, metoprolol, atorvastatin #Depression/anxiety -Continue home medications -02/16: Reviewed patient's external fill history given she is unable to answer my questions directly, does not appear to be feeling Wellbutrin anymore but is taking citalopram and is taking Seroquel 100 mg and mirtazapine 15. Resume mirtazapine, will keep Seroquel at 50 mg and as long as patient is not too sedated can consider increasing if needed -02/17: Seems to be tolerating present medications well -02/18: Patient tolerating current medications well, on all of my exams she is pleasant, calm, attempts to be cooperative. There is concern about her lorazepam as she had previously been prescribed at this and often seems to not do as well if she is taken off of it per family. Does have a history of overusing this. Has not had a dose since the and had only sporadically gotten it over the several days prior so patient is not presently withdrawing however given she has done well on this in the past with her anxiety we will add small dose as a as needed for significant anxiety but would use this with caution. Again she is outside of the window for withdrawal and had only gotten it sparingly for several days prior to 02/14 and has had none since then with no signs or symptoms withdrawal. Additionally does not seem that she had filled it since December. -02/19: Low-dose Ativan available if needed as a as needed however patient pleasant, calm, attempts to be cooperative and does not appear anxious. 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 Had been taken off of anticoagulation in the past due to bleeding from the lesion -It is unclear if patient was completely treated or not, will attempt to glean this information -02/17: No active bleeding noted, patient unable to give this information, no family at bedside at time of evaluation -02/18: Hemoglobin has remained stable, her Eliquis has been increased to appropriate dose given her kidney function, age, weight. She did have KRISTIN at 1 point and suspect this is why she was on the lower dose as she also weighed slightly less but now meets criteria for full dose -02/19: No bleeding appreciated on full dose Eliquis so this was just increased, continue to monitor -02/20: No bleeding reported at this time Chronic medical problems: #Dementia -It appears patient was feeling donepezil and memantine at home, do not suspect that these will have significant benefit, can consider resuming on outpatient basis # History of thyroid cancer status post thyroidectomy -Continue oral Synthroid # Left upper lobe lesion -1.8 to 2 cm mass in left upper lobe -Will need to follow-up on discharge for further workup and monitoring #GERD -Continue PPI #DVT ppx: Lovenox subcu Mellisa Lunsford MD Charges/Coding Visit Charges Inpatient E&M: 72436 Subs Hosp L1
[2024-02-21 10:06] LABS: Anion Gap 3 (5-15); BUN 10 mg/dL (7-18); BUN/Creat Ratio 15.3 RATIO (10-20); Calcium,Total 8.4 mg/dL (8.5-10.1); Chloride 106 mmol/L (98-107); Creatinine, Serum 0.65 mg/dL (0.55-1.02); EST Glomerular Filtration Rate 94 mL/min (>60); Est Glom Filt Rate - Afr Amer 113 mL/min (>60); Estimated Creatinine Clearance 48.49 ml/min; Glucose 141 mg/dL (74-106); Sodium Level 140 mmol/L (136-145)
[2024-02-21] MEDS: Atorvastatin Calcium 40 MG Tablet PO (21:09)
[2024-02-21] MEDS: Mirtazapine 15 MG Tablet PO (21:09)
[2024-02-21] MEDS: QUEtiapine 25 MG Tablet 50 MG PO (21:10)
[2024-02-22] VITALS (11 sets, daily range): BP systolic 131–168; BP diastolic 69–79; PULSE 75–90; RESP 14–16; TEMP 36.6–36.9; O2SAT 92–95; BMI 25.9
[2024-02-22] MEDS: Acetaminophen 500 MG Tablet 1000 MG PO ×3 (05:26→22:19)
[2024-02-22] MEDS: Levothyroxine 75 MCG Tablet PO (05:26)
[2024-02-22] MEDS: Cholecalciferol (VIT D3) 25 MCG TABLET (1,000 UNITS) PO (09:04)
[2024-02-22] MEDS: Citalopram 40 MG TABLET PO (09:05)
[2024-02-22] MEDS: Nitrofurantoin Macrocrystals 100 MG Capsule PO (09:05)
[2024-02-22] MEDS: Pantoprazole Sodium 40 MG Tablet PO (09:05)
[2024-02-22] MEDS: Metoprolol Tartrate 50 MG Tablet PO ×2 (09:05→22:20)
[2024-02-22] MEDS: APIXABAN 5 MG TABLET PO ×2 (09:05→22:19)
[2024-02-22] MEDS: Lisinopril 20 MG Tablet PO ×2 (09:06→22:00)
[2024-02-22] MEDS: Calcium Carbonate 500 MG Tablet PO ×3 (09:13→18:19)
--- NOTE | 2024-02-22 12:08 | CASEMGMT ---
Addendum entered by Marybeth Taylor 02/22/24 14:05: *precert has . Original Note: Discharge Planning Per [facility], precert has not been received and they have yet to hear from [facility] for requested updates. Call placed to [facility] and per Lisy, precert was obtained, CC notified on 02/19, and precert has not . Lisy feels that she should easily get precert if she submits updates soon. Requested updates sent to [facility]. SW updated. Marybeth Taylor DC Planning Asst.
--- NOTE | 2024-02-22 17:18 | PCM.PN.HOSP ---
Reason for Visit Reason for Visit: Diagnoses Old myocardial infarction (02/08/24) Unspecified atrial fibrillation (02/08/24) Chronic diastolic (congestive) heart failure (02/08/24) Cerebral infarction due to unspecified occlusion or stenosis of left middle cerebral artery (02/08/24) Chronic obstructive pulmonary disease, unspecified (02/08/24) Other nonspecific abnormal finding of lung field (02/08/24) Nondisplaced intertrochanteric fracture of right femur, initial encounter for closed fracture (02/08/24) Tobacco use (02/08/24) Subjective Subjective Patient awake and alert, no acute complaints voiced Objective Data Objective Data Vital Signs: Vital Signs Temp Pulse Resp BP Pulse Ox O2 Del Method O2 Flow Rate 98.1 F 85 16 131/73 H 93 Room Air 2 02/22/24 15:15 02/22/24 16:29 02/22/24 15:15 02/22/24 15:15 02/22/24 15:15 02/22/24 15:15 02/21/24 14:36 Oxygen Flow Rate (L/min) 2 Oxygen Delivery Method Room Air Weight: 60.1 kg Body Mass Index (BMI) 25.9 Intake & Output: Intake and Output for Last 24 Hours 02/20/24 02/21/24 02/22/24 23:59 23:59 23:59 Intake Total 1000 / 1000 760 / 760 Output Total 850 / 850 550 / 750 400 / 400 Balance 150 / 150 210 / 10 -400 / -400 Lab / Micro Data 02/19/24 07:48 02/21/24 09:10 Micro: Microbiology 02/15/24 14:00 Urine, Random Urine Culture - Final Escherichia coli 02/12/24 16:31 Sputum, Expectorated/Coughed Gram Stain - Final 02/12/24 16:31 Sputum, Expectorated/Coughed Respiratory Culture - Final Rhythm Strip Rhythm Strip: A-fib Rate: 90 Ectopy: None Physical Exam Narrative General: Awake and alert HEENT: Atraumatic, normocephalic Eyes: extraocular movements grossly intact Neck: Supple Respiratory: normal respiratory effort Cardiovascular: no edema appreciated GI: nondistended Extremities: Moving extremities in bed Neuro: Aphasia noted Psych: Pleasant Assessment & Plan Assessment/Plan (1) Acute ischemic left MCA stroke: PLAN: Plan # Acute left MCA stroke with edema status post TNK, suspected to be embolic in nature -MRI revealed left MCA stroke -Patient back on her Eliquis -PT/OT-> will need placement -Continue supportive care -Continue statin -Will need outpatient follow-up with neurology -02/16: Awaiting pre-CERT for placement, continue supportive care -02/17: Continue Eliquis and statin, awaiting insurance authorization -02/18: Given age, kidney function, weight patient qualifies for 5 twice daily of Eliquis so this has been started -02/19: Discussed with case management and social work, we are still awaiting insurance authorization. Of note she was suspected patient had slightly low O2 overnight, unclear significance as patient 98% on 2 L so wean off O2, patient denies shortness of breath, given stability with good O2 sats of present do not feel this needs to be further worked up, unclear if there was a port pleth or other confounding variable but will continue to monitor. Will also order incentive spirometer in the event patient able to cooperate to use -02/20: Patient stable, continues to await insurance authorization -02/21: Awaiting insurance authorization, continue supportive care # Right hip fracture -Status post right hip cephalomedullary fixation on 02/09/[address] Patel -Recommend wound check and staple removal 2 weeks postoperatively per Ortho note -Pain control -PT/OT -Patient to be placed -02/16: Continue PT/OT as tolerated -02/17: Patient remains on scheduled Tylenol, can likely change this to as needed soon, continue PT/OT -02/18: Continues to work with therapy, notes reviewed -02/19: Patient will need to follow-up with Dr. Patel 02/24/2024 and have alfonso removed at that time. Continue to mobilize as able -02/20: Continuing supportive care -02/21: Continue PT/OT #UTI-secondary to pansensitive E. 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 coli growing from urine culture, creatinine trended up slightly as well will give gentle IV fluids -02/19: Repeat UA fairly benign, Macrobid can cause darkened urine and this should resolve once medication is finished -02/20: Patient remains on antibiotics and has been stable -02/21: Patient now finished with Macrobid Chronic medical problems: #pafib and hx VTEs -On Eliquis -Beta-estefania -02/17: No bleeding appreciated and hemoglobin stable, continue Eliquis -02/18: Patient qualifies for increased dose of Eliquis with this been increased -02/19: Tolerating increased dose of Eliquis -02/20: Continues to tolerate Eliquis # History of coronary artery disease -With previous CABG and stent in 2021 -Eliquis, statin -Continue beta-estefania -02/16: On Eliquis and statin, no obvious or active bleeding appreciated, tolerating Eliquis. Resume patient's Imdur -02/17: Unable to resume Imdur as it cannot be crushed -02/18: Eliquis increased, continue statin -02/19: Continuing metoprolol and atorvastatin -02/20: Continue Eliquis, metoprolol, atorvastatin #Depression/anxiety -Continue home medications -02/16: Reviewed patient's external fill history given she is unable to answer my questions directly, does not appear to be feeling Wellbutrin anymore but is taking citalopram and is taking Seroquel 100 mg and mirtazapine 15. Resume mirtazapine, will keep Seroquel at 50 mg and as long as patient is not too sedated can consider increasing if needed -02/17: Seems to be tolerating present medications well -02/18: Patient tolerating current medications well, on all of my exams she is pleasant, calm, attempts to be cooperative. There is concern about her lorazepam as she had previously been prescribed at this and often seems to not do as well if she is taken off of it per family. Does have a history of overusing this. Has not had a dose since the sixth and had only sporadically gotten it over the several days prior so patient is not presently withdrawing however given she has done well on this in the past with her anxiety we will add small dose as a as needed for significant anxiety but would use this with caution. Again she is outside of the window for withdrawal and had only gotten it sparingly for several days prior to 02/14 and has had none since then with no signs or symptoms withdrawal. Additionally does not seem that she had filled it since December. -02/19: Low-dose Ativan available if needed as a as needed however patient pleasant, calm, attempts to be cooperative and does not appear anxious. 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 Had been taken off of anticoagulation in the past due to bleeding from the lesion -It is unclear if patient was completely treated or not, will attempt to glean this information -02/17: No active bleeding noted, patient unable to give this information, no family at bedside at time of evaluation -02/18: Hemoglobin has remained stable, her Eliquis has been increased to appropriate dose given her kidney function, age, weight. She did have KRISTIN at 1 point and suspect this is why she was on the lower dose as she also weighed slightly less but now meets criteria for full dose -02/19: No bleeding appreciated on full dose Eliquis so this was just increased, continue to monitor -02/20: No bleeding reported at this time #Dementia -It appears patient was feeling donepezil and memantine at home, do not suspect that these will have significant benefit, can consider resuming on outpatient basis # History of thyroid cancer status post thyroidectomy -Continue oral Synthroid # Left upper lobe lesion -1.8 to 2 cm mass in left upper lobe -Will need to follow-up on discharge for further workup and monitoring #GERD -Continue PPI #DVT ppx: Lovenox subcu Mellisa Lunsford MD Charges/Coding Visit Charges Inpatient E&M: 51450 Subs Hosp L1
[2024-02-22] MEDS: LORazepam 0.5 MG Tablet 0.25 MG PO (18:19)
[2024-02-22] MEDS: QUEtiapine 25 MG Tablet 50 MG PO (22:20)
[2024-02-22] MEDS: Mirtazapine 15 MG Tablet PO (22:20)
[2024-02-22] MEDS: Atorvastatin Calcium 40 MG Tablet PO (22:20)
[2024-02-23] VITALS: PULSE 80
[2024-02-23 04:00] VITALS: BP 156/60; PULSE 72; PULSE 75; PULSE 79; RESP 15; TEMP 36.6; O2SAT 92; O2SAT 93
[2024-02-23 05:06] VITALS: BMI 26.3
[2024-02-23] MEDS: Levothyroxine 75 MCG Tablet PO (06:26)
[2024-02-23] MEDS: Acetaminophen 500 MG Tablet 1000 MG PO ×2 (06:26→14:00)
--- NOTE | 2024-02-23 07:54 | CASEMGMT ---
SW received a message from [employer] that they have received authorization. LOC will notify physician. Fern Carrera MSW NIKITA
--- NOTE | 2024-02-23 08:57 | PCM.TXEXTCAR ---
Diet Diet Order/Speech Therapy: 02/19/24 09:36 Diet: Regular - No Added Salt Food consistency:: Soft & Bite Sized Liquid Consistency:: Regular/Thin Type of Dietary Supplement:: 120mL Ensure Plus w/ meal Diet Comments: Direct sup, assist feeding, FOOD/DRINK ONLY IF FULLY ALERT Routine Orders/Code Status Routine Lab Work: CBC and BMP Code Status: DNRCC-A DC O2, CPAP, BIPAP needs Home O2 Discharge instructions: No Wound(s) RIGHT HIP & THIGH, LATERAL: Wound Type: Surgical Incision Therapies Physical Therapy: Eval and Treat Occupational Therapy: Eval and Treat Speech Therapy: Eval and Treat Problem/Diagnosis (1) Acute ischemic left MCA stroke: Status: Acute Code(s): I63.512 - Cerebral infarction due to unspecified occlusion or stenosis of left middle cerebral artery Plan 1. Acute left MCA stroke with edema status post TNK/mechanical fall with right intertrochanteric femur fracture status post repair 02/09/2024 ? She does have a history of A-fib as well as a GI bleed so she has been off anticoagulation, this will likely need to be reassessed especially in the setting of a possible lung cancer which increases her hypercoagulability ? Continue with Eliquis 2.5 mg p.o. twice daily ? PT/OT she is not participating well in therapy so which is limiting her ability to create discharge plans, her phosphorus was low and this has been replaced may help with energy ? Appreciate neurology and Ortho assistance ? Echocardiogram with an EF of 65% with moderate concentric ventricular hypertrophy ? Will obtain a urinalysis to evaluate the increase in leukocytosis, initially thought to be due to her fracture and but it had normalized over the last 2 days. 2. CAD status post stent in 2021 and CABG/A-fib/essential HTN/HLD ? Hold her aspirin and Plavix for now ? It should be okay to do minimal anticoagulation after surgery ? Continue with blood pressure medications per stroke protocol ? Continue with statin ? Will transition from atenolol to metoprolol for better heart rate control 3. Lung mass ? Is a 1.8 cm to 2 cm mass in the left upper lobe ? She is a smoker ? She will need a biopsy either this admission or as an outpatient 4. History of thyroid cancer status post thyroidectomy ? Will discontinue IV Synthroid and transition her back to her oral Synthroid ? TSH is normal 5. History of depression and anxiety with hallucinations no clear diagnosis of schizophrenia though her sister has a diagnosis of schizophrenia ? Continue with her home medications ? Stable ? There was some issues with Ativan and oversedation over the last year will monitor ? Hopefully with restarting her home medication she will become a little bit more interactive and participate with physical therapy so we can develop a discharge plan 6. GERD ? Stable ? Continue with PPI DVT: Eliquis Allergies/Procedures Done in Hospital Allergies morphine Allergy (Verified 02/08/24 01:18) PT UNSURE Penicillins Allergy (Verified 02/08/24 01:18) Hives tramadol HCl (From Ultram) Allergy (Verified 02/08/24 01:18) PT UNSURE bupropion (From Wellbutrin) Adverse Reaction (Verified 02/08/24 01:18) hallucinations Procedures: None Type of Care/Length of Stay Estimated LOS: Convalescent Care Less Than 30 days Type of Care Needed: Skilled Rehab Potential: Fair Prognosis: Fair Additional Orders/Day of Discharge Day of Discharge: 02/23/24 Dietary and Speech Recommendations Dietitian Recommendations/Changes: Will liberalize diet to regular/no added salt to promote improved oral intake as tolerated; consistency/texture as per INSULATION HELPER. Continue 120 ml ensure plus high protein TID with meals. Will monitor weight trends as available. Speech Linguistic Eval Summary: Pt alert for session today. INSULATION HELPER proceeded w/ planned speech and language evaluation. Orientation: Pt unable to express orientation to self or place despite max verbal cues and written field of 2 choices. Auditory Comprehension: Yes/no questions (basic) - 2/5 acc. 1-step directions ? 1/5 acc provided min verbal cues and modeling. Pt would intermittently respond to yes/no questions in simple conversation w/ INSULATION HELPER; otherwise, conversational responses were either absent or irrelevant. Verbal Expression: Repetition of words - /10 acc. Repetition of phrases - 1/4 acc. Confrontation naming of objects - 1/5 acc provided field of 2 choices (Is this a blanket or a cup?). Descriptive cues, function cues, and phrase completion cues did not improve word finding. For repetition and naming tasks, the patient frequently presented w/ paraphasias (phonemic, semantic, and neologisms). Picture description speech sample - Despite max cues, pt was unable to describe an illustration. Her 3 responses were irrelevant to the image and were 3-5 words in length. Speech was non-fluent in conversational attempts. The patient presents with severe global aphasia secondary to acute ischemic L MCA stroke characterized by deficits in repetition, word retrieval, fluency, and auditory comprehension. Will recommend speech therapy during acute stay 5-7X/week. Will recommend continued and intensive speech therapy services at next level of care. Discharge Plan Admission Admit Date/Time: 02/08/24 03:08 Primary Reason for Your Visit: Stroke Attending Provider: Cruz Roberts Primary Care Provider: Zully Rojas Consulting Providers: Mariusz Donohue; Derrell Elena; Maciej Walker; Rao Lovelace; Juan Garcias; Catarino Harrington; Monty Potter; Donna Farias; Woody Sanford; Justin Iqbal; Jose Richmond; Carisa Zambrano; Xavi Loja; Oseas Barreto; Benigno Prajapati; Colton Olsen; Armando Hunter; Elpidio Walker; Michele Bowles; Benjamin Boone; Nayan Powell; Juan Jose; Hany Wilde; Cruz Agrawal; Jake Matt; Lee Elizondo; Michele Matt; Alexandria Agustin; Eve Martinez; Felicia Saldaña; Will Omer; Waqar Ng; Cruz Roberts; Mellisa Lunsford Instructions Patient Instructions: ED Fall Prevention Additional Instructions / Restrictions: DISCHARGE INSTRUCTIONS PLEASE READ *Please take this with you to your next doctors appointment* -Eliquis has been resumed due to concern that stroke was from atrial fibrillation and given this was resumed your Plavix and aspirin have been discontinued -Please follow-up with pulmonology in 2 weeks upon discharge due to a spot on your lung that may need biopsied. Please call their office to schedule hospital follow-up appointment upon discharge. -Please follow-up with neurology upon discharge, please call Dr. Kirby's office upon discharge to schedule an appointment for stroke follow-up ( [phone]) -Patient will need to follow-up with Dr. Patel 02/24/2024 and have alfonso removed at that time -Please call your primary care provider's office upon discharge to schedule a hospital follow up within 1 week. -For any concerning signs or symptoms please call 911 or proceed to the nearest emergency department Discharge Orders/Prescriptions Prescriptions: New metoprolol tartrate 50 mg Tablet 50 mg PO BID Qty: 0 0RF mirtazapine 15 mg Tablet 15 mg PO QHS Qty: 0 0RF Eliquis 5 mg Tablet 5 mg PO BID Qty: 0 0RF Continued albuterol sulfate 0.63 mg/3 mL solution for nebulization 0.63 mg INHALATION Q4H PRN (Reason: Congestion) isosorbide mononitrate 30 mg tablet extended release 24 hr 30 mg PO DAILY Qty: 90 3RF levothyroxine 75 MCG tablet 75 mcg PO DAILY citalopram 40 mg tablet 40 mg PO DAILY atorvastatin 40 MG tablet 40 mg PO QHS pantoprazole 40 MG tablet 40 mg PO BID oxybutynin chloride 5 mg tablet extended release 24hr 5 mg PO DAILY melatonin 10 mg Tablet, Sublingual 10 mg PO QHS Qty: 0 0RF acetaminophen 500 mg Tablet 1,000 mg PO Q6H PRN (Reason: Pain Score 1-10) lorazepam 0.5 mg Tablet 0.5 mg PO TID 30 Days Qty: 90 0RF furosemide [Lasix] 20 mg tablet 20 mg PO DAILY PRN (Reason: DIURETIC) Qty: 30 0RF bupropion HCl 150 mg tablet sustained-release 12 hr 150 mg PO DAILY gabapentin 100 mg capsule 100 mg PO DAILY quetiapine 50 mg tablet 50 mg PO QHS guaifenesin [Mucus Relief ER] 1,200 mg Tablet Extended Release 12hr 1,200 mg PO BID Qty: 20 0RF spironolactone 25 mg Tablet 25 mg PO DAILY Qty: 30 0RF lisinopril 20 mg tablet 20 mg PO BID Qty: 60 0RF Discontinued aspirin 81 mg tablet,delayed release (DR/EC) 81 mg PO BREAKFAST Qty: 90 3RF atenolol 50 MG tablet 50 mg PO DAILY clopidogrel 75 mg tablet 75 mg PO QODAY meloxicam 15 mg tablet 15 mg PO DAILY Referrals / Follow Up: Zully Rojas MD [Primary Care Provider] - Within 1 Week Rao Lovelace DO [Med Staff - Active Staff] - Within 2 Weeks ( -Please follow-up with pulmonology upon discharge. Please call their office to schedule hospital follow-up appointment upon discharge.) Zachariah Patel DO [Med Staff - Active Staff] - Within 1 Week (-Please follow-up with Ortho in 1 week upon discharge for postoperative staple removal and wound check. Please call their office to schedule hospital follow-up appointment upon discharge.) John Kirby MD [Non-Staff -Ordering Privileges] - ( -Please follow-up with neurology upon discharge, please call Dr. Kirby's office upon discharge to schedule an appointment for stroke follow-up (ph [phone])) Disposition Disposition (needs filled in before D/C Order can be placed): Care Home Facility
[2024-02-23 10:29] VITALS: BP 116/55; PULSE 76; RESP 18; TEMP 36.9; O2SAT 94
[2024-02-23] MEDS: Lisinopril 20 MG Tablet PO (10:30)
[2024-02-23] MEDS: APIXABAN 5 MG TABLET PO (10:30)
[2024-02-23 10:31] VITALS: PULSE 76
[2024-02-23] MEDS: Citalopram 40 MG TABLET PO (10:31)
[2024-02-23] MEDS: Metoprolol Tartrate 50 MG Tablet PO (10:31)
[2024-02-23] MEDS: Cholecalciferol (VIT D3) 25 MCG TABLET (1,000 UNITS) PO (10:31)
--- NOTE | 2024-02-23 10:35 | CASEMGMT ---
SW called patient's daughter Shyanne and let her know patient was approved to go to [facility] today. Someone will call her when a time has been set up. LOC completed a PASRR in Skype system. Plan: d/c to [facility] under skilled level of care. Fern Carrera UPPER CUTTER NIKITA
[2024-02-23 10:55] VITALS: BMI 26.3
--- NOTE | 2024-02-23 11:13 | PHA.DC_ITS ---
Pharmacy [facility] Reconciliation Pharmacy Service has performed discharge medication reconciliation for this patient. The patient's discharge medication list was reviewed for discrepancies and discrepancies were resolved. Medications at Discharge Home Medications levothyroxine 75 mcg tablet 75 mcg PO DAILY THYROID 09/06/17 citalopram 40 mg tablet 40 mg PO DAILY DEPRESSION 12/18/17 atorvastatin 40 mg tablet 40 mg PO QHS CHOLESTEROL 01/05/18 albuterol sulfate 0.63 mg/3 mL solution for nebulization 0.63 mg inhalation Q4H PRN Congestion 07/14/18 pantoprazole 40 mg tablet,delayed release 40 mg PO BID GERD 01/16/19 oxybutynin chloride 5 mg tablet,extended release 24 hr 5 mg PO DAILY BLADDER 10/08/21 melatonin 10 mg sublingual tablet 10 mg PO QHS INSOMNIA #0 tabs 02/12/23 acetaminophen 500 mg tablet 1,000 mg PO Q6H PRN Pain Score 1-10 02/16/23 furosemide 20 mg tablet (Lasix) 20 mg PO DAILY PRN DIURETIC #30 tabs 02/20/23 lorazepam 0.5 mg tablet 0.5 mg PO TID anxiety 30 days #90 tabs 02/20/23 bupropion HCl 150 mg tablet,12 hr sustained-release 150 mg PO DAILY mental health 06/30/23 gabapentin 100 mg capsule 100 mg PO DAILY nerve pain 06/30/23 quetiapine 50 mg tablet 50 mg PO QHS mental health 06/30/23 guaifenesin 1,200 mg tablet, extended release 12 hr (Mucus Relief ER) 1,200 mg PO BID cough #20 tabs 07/02/23 lisinopril 20 mg tablet 20 mg PO BID BLOOD PRESSURE #60 tabs 07/02/23 spironolactone 25 mg tablet 25 mg PO DAILY diuretic #30 tabs 07/02/23 isosorbide mononitrate 30 mg tablet,extended release 24 hr 30 mg PO DAILY heart #90 tabs 08/06/23 apixaban 5 mg tablet (Eliquis) 5 mg PO BID #0 tabs 02/23/24 metoprolol tartrate 50 mg tablet 50 mg PO BID #0 tabs 02/23/24 mirtazapine 15 mg tablet 15 mg PO QHS #0 tabs 02/23/24
[2024-02-23] MEDS: Calcium Carbonate 500 MG Tablet PO (12:22)
--- NOTE | 2024-02-23 12:35 | CASEMGMT ---
Discharge Planning Discharge orders, signed med list, and transport time sent to [facility]. Physicians will transport patient by cot at 3p. Nursing, SW, and pts daughter (Shyanne) updated. Marybeth Taylor DC Planning Asst.
--- NOTE | 2024-02-23 12:37 | PCM.DC.SUM ---
Providers Date of Admission: 02/08/24 Primary Care Physician: Dr. Zully Rojas MD Consultations 02/08/24 01:29 Consult: Forge Shop Supervisor / Pulmonary Medicine Routine Consulting Provider: [facility] Reason for Consult: stroke for thrombolytic administration EMERGENT Consult: No Notified: Yes Date Notified: 02/08/24 Time Notified: 06:18 Method of Notification: Text Comments:: Consult may be done in ED or ICU 02/08/24 03:55 Consult: Forge Shop Supervisor / Pulmonary Medicine Routine Consulting Provider: Intensivists/Pulmonary Med Reason for Consult: Acute Stroke Post Tenecteplase administration EMERGENT Consult: No Notified: Yes Date Notified: 02/08/24 Time Notified: 06:17 Method of Notification: Text Consult: Orthopedics Routine Consulting Provider: [facility] Reason for Consult: Right hip fracture after fall. EMERGENT Consult: No Notified: Yes Date Notified: 02/08/24 Time Notified: 03:14 Method of Notification: ED Physician Initiated Reason For Visit: STROKE ALERT; S/P TNK WITH RIGHT HIP FRACTURE Diagnosis Discharge Diagnosis (1) Acute ischemic left MCA stroke: Status: Acute Code(s): I63.512 - Cerebral infarction due to unspecified occlusion or stenosis of left middle cerebral artery Medications at Discharge Home Medications levothyroxine 75 mcg tablet 75 mcg PO DAILY THYROID 09/06/17 citalopram 40 mg tablet 40 mg PO DAILY DEPRESSION 12/18/17 atorvastatin 40 mg tablet 40 mg PO QHS CHOLESTEROL 01/05/18 albuterol sulfate 0.63 mg/3 mL solution for nebulization 0.63 mg inhalation Q4H PRN Congestion 07/14/18 pantoprazole 40 mg tablet,delayed release 40 mg PO BID GERD 01/16/19 oxybutynin chloride 5 mg tablet,extended release 24 hr 5 mg PO DAILY BLADDER 10/08/21 melatonin 10 mg sublingual tablet 10 mg PO QHS INSOMNIA #0 tabs 02/12/23 acetaminophen 500 mg tablet 1,000 mg PO Q6H PRN Pain Score 1-10 02/16/23 furosemide 20 mg tablet (Lasix) 20 mg PO DAILY PRN DIURETIC #30 tabs 02/20/23 lorazepam 0.5 mg tablet 0.5 mg PO TID anxiety 30 days #90 tabs 02/20/23 bupropion HCl 150 mg tablet,12 hr sustained-release 150 mg PO DAILY mental health 06/30/23 gabapentin 100 mg capsule 100 mg PO DAILY nerve pain 06/30/23 quetiapine 50 mg tablet 50 mg PO QHS mental health 06/30/23 guaifenesin 1,200 mg tablet, extended release 12 hr (Mucus Relief ER) 1,200 mg PO BID cough #20 tabs 07/02/23 lisinopril 20 mg tablet 20 mg PO BID BLOOD PRESSURE #60 tabs 07/02/23 spironolactone 25 mg tablet 25 mg PO DAILY diuretic #30 tabs 07/02/23 isosorbide mononitrate 30 mg tablet,extended release 24 hr 30 mg PO DAILY heart #90 tabs 08/06/23 apixaban 5 mg tablet (Eliquis) 5 mg PO BID #0 tabs 02/23/24 metoprolol tartrate 50 mg tablet 50 mg PO BID #0 tabs 02/23/24 mirtazapine 15 mg tablet 15 mg PO QHS #0 tabs 02/23/24 Hospital Course Operations - (Right femur cephalomedullary fixation) Procedures 2-D Echocardiogram Summary of Care Provided Minutes Spent on Discharge: 34 Hospital Course: Per HPI: MAURICE WALLACE, is a 78 F with a past medical history of essential hypertension; on atenolol, lisinopril, furosemide and spironolactone, history of thyroid cancer; s/p thyroidectomy with subsequent hypothyroidism; on levothyroxine, hyperlipidemia; on atorvastatin, former history of tobacco abuse; with subsequent COPD and chronic hypoxic respiratory failure, JAIME, CAD; s/p non-ST elevation [place] s/p multiple stents (with most recent in 2021) and CABG x 3 (~2007) on chronic ISMO, BASA and clopidogrel, history of TIA/CVA; with subsequent chronic diplopia and impaired mobility, history of dementia, history of atrial fibrillation; not on anticoagulation due to previous LGIB, history of carotid stenosis, history of chronic diastolic CHF; with preserved LVEF, history of nonrheumatic mitral regurgitation, history of nonrheumatic tricuspid valve insufficiency, history of secondary pulmonary hypertension, history of VTE, history of rectal cancer, history of external hemorrhoids, history of appendectomy, history of cholecystectomy, history of avascular necrosis of Left femoral head, chronic anemia, history of neuropathic pain; on gabapentin, history of depression with anxiety; on citalopram, bupropion, quetiapine and as needed lorazepam in the setting of history of known previous benzodiazepine dependence, history of overactive bladder; on oxybutynin, GERD; on pantoprazole and OA; with chronic back pain and DDD on meloxicam with Adult [id number] who presented to [facility] ER after her family member noted patient stood up to go to the bathroom and collapsed with subsequent severely abnormal speech, suspected Right-sided weakness and altered mental status so patient's daughter activated EMS. The daughter informed the ER physician that she has had similar symptoms in the past associated with TIA's. EMS noted atrial fibrillation and administered Narcan with no effect after blood glucose was normal at 111 mg/dL. There were no reports of associated fever, chills, nausea, vomiting, diarrhea, constipation, chest pain or shortness of breath. EMS stroke evaluation was limited because patient could not follow commands and was moving all 4 extremities but since she was acutely aphasic they called a Stroke Alert. Upon the ER physicians evaluation patient was noted to be severely encephalopathic and aphasic with signs of Right-sided weakness with a last known well at approximately [address] scan of the brain confirming no acute hemorrhage only old encephalomalacia in the Right medial occipital lobe and with all parties in agreement she was deemed to be a candidate for thrombolytic therapy. She was then treated with TNK per protocol. Also due to patient's fall x-ray of her Right hip revealed an intertrochanteric hip fracture which was discovered after TNK was administered due to patient's nonverbal status. The ER physician then contacted the orthopedist on-call who recommended Layton's traction with formal consultation pending in the AM and appreciated in advance. Finally, there were additional CT findings for an incidentally noted ~2 cm Left upper lobe nodule or mass in the setting of chronic tobacco abuse and known previous malignancies. The hospitalist service was then contacted to admit patient to the ICU for treatment under the post-TNK protocol and she was then admitted to the ICU for ongoing care for stay that is expected to extend beyond 2 midnights. Hospital Course: # Acute left MCA stroke with edema status post TNK, suspected to be embolic in nature -MRI revealed left MCA stroke -Patient back on her Eliquis -PT/OT-> will need placement -Continue supportive care -Continue statin -Will need outpatient follow-up with neurology -02/16: Awaiting pre-CERT for placement, continue supportive care -02/17: Continue Eliquis and statin, awaiting insurance authorization -02/18: Given age, kidney function, weight patient qualifies for 5 twice daily of Eliquis so this has been started -02/19: Discussed with case management and social work, we are still awaiting insurance authorization. Of note she was suspected patient had slightly low O2 overnight, unclear significance as patient 98% on 2 L so wean off O2, patient denies shortness of breath, given stability with good O2 sats of present do not feel this needs to be further worked up, unclear if there was a port pleth or other confounding variable but will continue to monitor. Will also order incentive spirometer in the event patient able to cooperate to use -02/20: Patient stable, continues to await insurance authorization -02/21: Awaiting insurance authorization, continue supportive care 02/23/2024: She received pre-CERT today to be discharged to the long term. Will continue with Eliquis 5 mg p.o. twice daily given the fact that her CVA was likely related to her A-fib. Will continue with statin. # Right hip fracture -Status post right hip cephalomedullary fixation on 02/09/[address] Patel -Recommend wound check and staple removal 2 weeks postoperatively per Ortho note -Pain control -PT/OT -Patient to be placed -02/16: Continue PT/OT as tolerated -02/17: Patient remains on scheduled Tylenol, can likely change this to as needed soon, continue PT/OT -02/18: Continues to work with therapy, notes reviewed -02/19: Patient will need to follow-up with Dr. Patel 02/24/2024 and have alfonso removed at that time. Continue to mobilize as able -02/20: Continuing supportive care -02/21: Continue PT/OT 02/23/2024: Can remove alfonso tomorrow #UTI-secondary to pansensitive E. 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 coli growing from urine culture, creatinine trended up slightly as well will give gentle IV fluids -02/19: Repeat UA fairly benign, Macrobid can cause darkened urine and this should resolve once medication is finished -02/20: Patient remains on antibiotics and has been stable -02/21: Patient now finished with Macrobid Chronic medical problems: #pafib and hx VTEs -On Eliquis -Beta-estefania -02/17: No bleeding appreciated and hemoglobin stable, continue Eliquis -02/18: Patient qualifies for increased dose of Eliquis with this been increased -02/19: Tolerating increased dose of Eliquis -02/20: Continues to tolerate Eliquis # History of coronary artery disease -With previous CABG and stent in 2021 -Eliquis, statin -Continue beta-estefania -02/16: On Eliquis and statin, no obvious or active bleeding appreciated, tolerating Eliquis. Resume patient's Imdur -02/17: Unable to resume Imdur as it cannot be crushed -02/18: Eliquis increased, continue statin -02/19: Continuing metoprolol and atorvastatin -02/20: Continue Eliquis, metoprolol, atorvastatin #Depression/anxiety -Continue home medications -02/16: Reviewed patient's external fill history given she is unable to answer my questions directly, does not appear to be feeling Wellbutrin anymore but is taking citalopram and is taking Seroquel 100 mg and mirtazapine 15. Resume mirtazapine, will keep Seroquel at 50 mg and as long as patient is not too sedated can consider increasing if needed -02/17: Seems to be tolerating present medications well -02/18: Patient tolerating current medications well, on all of my exams she is pleasant, calm, attempts to be cooperative. There is concern about her lorazepam as she had previously been prescribed at this and often seems to not do as well if she is taken off of it per family. Does have a history of overusing this. Has not had a dose since the sixth and had only sporadically gotten it over the several days prior so patient is not presently withdrawing however given she has done well on this in the past with her anxiety we will add small dose as a as needed for significant anxiety but would use this with caution. Again she is outside of the window for withdrawal and had only gotten it sparingly for several days prior to 02/14 and has had none since then with no signs or symptoms withdrawal. Additionally does not seem that she had filled it since December. -02/19: Low-dose Ativan available if needed as a as needed however patient pleasant, calm, attempts to be cooperative and does not appear anxious. 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 Had been taken off of anticoagulation in the past due to bleeding from the lesion -It is unclear if patient was completely treated or not, will attempt to glean this information -02/17: No active bleeding noted, patient unable to give this information, no family at bedside at time of evaluation -02/18: Hemoglobin has remained stable, her Eliquis has been increased to appropriate dose given her kidney function, age, weight. She did have KRISTIN at 1 point and suspect this is why she was on the lower dose as she also weighed slightly less but now meets criteria for full dose -02/19: No bleeding appreciated on full dose Eliquis so this was just increased, continue to monitor -02/20: No bleeding reported at this time #Dementia -It appears patient was feeling donepezil and memantine at home, do not suspect that these will have significant benefit, can consider resuming on outpatient basis # History of thyroid cancer status post thyroidectomy -Continue oral Synthroid # Left upper lobe lesion -1.8 to 2 cm mass in left upper lobe -Will need to follow-up on discharge for further workup and monitoring ? This was relayed to family on admission #GERD -Continue PPI Physical Exam Narrative General: Alert but sleepy, Cooperative, No apparent distress HEENT: Atraumatic, PERRLA, EOMI, Normocephalic Oral: Moist Mucosa Neck: Supple, No JVD Lungs: Diminished, Normal air movement, No rhonchi, No wheeze, No rales Cardiovascular: Regular rate, Regular Rhythm, Normal S1, Normal S2, No murmurs Abdomen: Soft, Non Tender, Non-Distended, No Hepato-splenomegaly Extremities: No edema, Capillary Refill Less than 3 Seconds Skin: Incision CDI Musculoskeletal: Minimal tenderness to palpation of right hip surgical site Neurological: Able to move her extremities limited due to surgery on the right lower extremity Psych/Mental Status: Flat Weight / BMI Weight Weight: 134 lb 14.766 oz Body Mass Index (BMI) 26.3 ABG / Lab / Microbiology Data 02/19/24 07:48 02/21/24 09:10 Microbiology: Microbiology 02/15/24 14:00 Urine, Random Urine Culture - Final Escherichia coli 02/12/24 16:31 Sputum, Expectorated/Coughed Gram Stain - Final 02/12/24 16:31 Sputum, Expectorated/Coughed Respiratory Culture - Final D/C Instructions DC O2, CPAP, BIPAP Needs Home O2 Discharge instructions: No Meaningful Use Info Meaningful Use Meaningful Use Diagnoses (Choose all that apply): None applicable Ischemic Stroke Statin Dosing Therapy Reference: STATIN DOSE THERAPY REFERENCE: * Patients > 75 years receive moderate or high dose statin therapy. * Patients 75 years or YOUNGER should receive HIGH intensity statin dose unless contraindicated. You will be required to document reason for non-treatment if statin daily dose does not meet guidelines. HIGH DOSE STATIN THERAPY DAILY Atorvastatin > than or = to 40 mg Rosuvastatin > than or = to 20 mg Amlodipine + Atorvastatin > than or = to 2.5/40 mg Ezetimibe + Simvastatin 10/80 mg Simvastatin 80mg Discharge Plan Admission Admit Date/Time: 02/08/24 03:08 Primary Reason for Your Visit: Stroke Attending Provider: Cruz Roberts Primary Care Provider: Zully Rojas Consulting Providers: Mariusz Donohue; Derrell Elena; Maciej Walker; Rao Lovelace; Juan Garcias; Catarino Harrington; Monty Potter; Donna Farias; Woody Sanford; Justin Iqbal; Jose Richmond; Carisa Zambrano; Xavi Loja; Oseas Barreto; Benigno Prajapati; Colton Olsen; Armando Hunter; Elpidio Walker; Michele Bowles; Benjamin Boone; Nayan Powell; Juan Jose; Hany Wilde; Cruz Agrawal; Jake Matt; Lee Elizondo; Michele Matt; Alexandria Agustin; Eve Martinez; Felicia Saldaña; Will Omer; Waqar Ng; Cruz Roberts; Mellisa Lunsford Instructions Patient Instructions: ED Fall Prevention Additional Instructions / Restrictions: DISCHARGE INSTRUCTIONS PLEASE READ *Please take this with you to your next doctors appointment* -Eliquis has been resumed due to concern that stroke was from atrial fibrillation and given this was resumed your Plavix and aspirin have been discontinued -Please follow-up with pulmonology in 2 weeks upon discharge due to a spot on your lung that may need biopsied. Please call their office to schedule hospital follow-up appointment upon discharge. -Please follow-up with neurology upon discharge, please call Dr. Kirby's office upon discharge to schedule an appointment for stroke follow-up ) -Patient will need to follow-up with Dr. Patel 02/24/2024 and have alfonso removed at that time -Please call your primary care provider's office upon discharge to schedule a hospital follow up within 1 week. -For any concerning signs or symptoms please call 911 or proceed to the nearest emergency department Discharge Orders/Prescriptions Prescriptions: New metoprolol tartrate 50 mg Tablet 50 mg PO BID Qty: 0 0RF mirtazapine 15 mg Tablet 15 mg PO QHS Qty: 0 0RF Eliquis 5 mg Tablet 5 mg PO BID Qty: 0 0RF Continued albuterol sulfate 0.63 mg/3 mL solution for nebulization 0.63 mg INHALATION Q4H PRN (Reason: Congestion) isosorbide mononitrate 30 mg tablet extended release 24 hr 30 mg PO DAILY Qty: 90 3RF levothyroxine 75 MCG tablet 75 mcg PO DAILY citalopram 40 mg tablet 40 mg PO DAILY atorvastatin 40 MG tablet 40 mg PO QHS pantoprazole 40 MG tablet 40 mg PO BID oxybutynin chloride 5 mg tablet extended release 24hr 5 mg PO DAILY melatonin 10 mg Tablet, Sublingual 10 mg PO QHS Qty: 0 0RF acetaminophen 500 mg Tablet 1,000 mg PO Q6H PRN (Reason: Pain Score 1-10) lorazepam 0.5 mg Tablet 0.5 mg PO TID 30 Days Qty: 90 0RF furosemide [Lasix] 20 mg tablet 20 mg PO DAILY PRN (Reason: DIURETIC) Qty: 30 0RF bupropion HCl 150 mg tablet sustained-release 12 hr 150 mg PO DAILY gabapentin 100 mg capsule 100 mg PO DAILY quetiapine 50 mg tablet 50 mg PO QHS guaifenesin [Mucus Relief ER] 1,200 mg Tablet Extended Release 12hr 1,200 mg PO BID Qty: 20 0RF spironolactone 25 mg Tablet 25 mg PO DAILY Qty: 30 0RF lisinopril 20 mg tablet 20 mg PO BID Qty: 60 0RF Discontinued aspirin 81 mg tablet,delayed release (DR/EC) 81 mg PO BREAKFAST Qty: 90 3RF atenolol 50 MG tablet 50 mg PO DAILY clopidogrel 75 mg tablet 75 mg PO QODAY meloxicam 15 mg tablet 15 mg PO DAILY Referrals / Follow Up: Zully Rojas MD [Primary Care Provider] - Within 1 Week Rao Lovelace DO [Med Staff - Active Staff] - Within 2 Weeks ( -Please follow-up with pulmonology upon discharge. Please call their office to schedule hospital follow-up appointment upon discharge.) Zachariah Patel DO [Med Staff - Active Staff] - Within 1 Week (-Please follow-up with Ortho in 1 week upon discharge for postoperative staple removal and wound check. Please call their office to schedule hospital follow-up appointment upon discharge.) John Kirby MD [Non-Staff -Ordering Privileges] - ( -Please follow-up with neurology upon discharge, please call Dr. Kirby's office upon discharge to schedule an appointment for stroke follow-up (ph [phone])) Disposition Disposition (needs filled in before D/C Order can be placed): [facility] Facility Charges/Coding Visit Charges Inpatient E&M: 70550 Disch Hosp >30min
== END 2024-02-23 15:05 | DRG 981 ==
LOC: ED 02:07 → ICU 03:25 → PCU 02-09 17:23
PROVIDERS: Hospitalist; Internal Medicine; Orthopaedic Surgery; Admitting Provider Internal Medicine; Emergency Provider Emergency Medicine; PCP Internal Medicine; Referring Provider Internal Medicine; Visit Provider Family Medicine
PROC: 0QS706Z Reposition Left Upper Femur with Intramedullary Internal Fixation Device, Open Approach (ICD-10-PCS; principal; 2024-02-09 12:45)
DX: I63.512 Cerebral infarction due to unspecified occlusion or stenosis of left middle cerebral artery (principal); S72.144A Nondisplaced intertrochanteric fracture of right femur, initial encounter for closed fracture; G93.6 Cerebral edema; I69.351 Hemiplegia and hemiparesis following cerebral infarction affecting right dominant side; I50.32 Chronic diastolic (congestive) heart failure; N39.0 Urinary tract infection, site not specified; I27.21 Secondary pulmonary arterial hypertension; I11.0 Hypertensive heart disease with heart failure; R62.7 Adult failure to thrive; J44.9 Chronic obstructive pulmonary disease, unspecified; F03.90 Unspecified dementia, unspecified severity, without behavioral disturbance, psychotic disturbance, mood disturbance, and anxiety; E89.0 Postprocedural hypothyroidism; I08.1 Rheumatic disorders of both mitral and tricuspid valves; I48.91 Unspecified atrial fibrillation; R47.01 Aphasia; K21.9 Gastro-esophageal reflux disease without esophagitis; E78.5 Hyperlipidemia, unspecified; F17.200 Nicotine dependence, unspecified, uncomplicated; E87.6 Hypokalemia; I25.10 Atherosclerotic heart disease of native coronary artery without angina pectoris; F41.8 Other specified anxiety disorders; W19.XXXA Unspecified fall, initial encounter; M16.12 Unilateral primary osteoarthritis, left hip; Z79.02 Long term (current) use of antithrombotics/antiplatelets; Z79.82 Long term (current) use of aspirin; Z79.1 Long term (current) use of non-steroidal anti-inflammatories (NSAID); Z95.1 Presence of aortocoronary bypass graft; Z95.5 Presence of coronary angioplasty implant and graft; Z79.890 Hormone replacement therapy; R29.707 NIHSS score 7; R29.898 Other symptoms and signs involving the musculoskeletal system; Z81.8 Family history of other mental and behavioral disorders; Z79.01 Long term (current) use of anticoagulants; B96.20 Unspecified Escherichia coli [E. coli] as the cause of diseases classified elsewhere; R53.1 Weakness; Z87.81 Personal history of (healed) traumatic fracture; Z68.26 Body mass index [BMI] 26.0-26.9, adult
CPT/HCPCS: 36415; 51702; 70450; 70496; 70498; 70551; 71260; 73502; 76000; 80048; 80061; 80076; 80307; 81001; 82077; 82962; 83036; 83735; 84100; 84443; 84484; 85014; 85018; 85025; 85027; 85610; 85730; 86850; 86900; 86901; 86920; 87070; 87077; 87086; 87088; 87186; 87205; 90662; 92507; 92523; 92526; 92610; 93005; 93306; 94640; 94668; 97110; 97162; 97166; 97530; 97535; 97802; 97803; 99285; C1713; J3101; P9016; Q9957; Q9967; A4216; C8929; J2405

== ENCOUNTER 2025-01-12 13:33 | Emergency (ER) | payer MEDICARE, SELFPAY ==
[2024-04-28 14:30] VITALS: BMI 29.2
[2025-01-12 13:34] VITALS: BP 129/99; PULSE 95; RESP 22; TEMP 36.4; O2SAT 95; BMI 25.1
[2025-01-12] MEDS: fentaNYL 100 MCG/2 ML Ampul 25 MCG IV (14:41)
[2025-01-12 15:42] VITALS: BP 58/36; PULSE 103; RESP 14
--- NOTE | 2025-01-12 16:55 | CM.ED ---
Social Work SW met with patients daughter. Daughter expressed frustration regarding care patient was receiving at current SNF and stated she did not want her mom to go back to the SNF at this time. Daughter stated that patient was currently receiving services through [facility]. SW offered to contact hospice and refer patient to their [facility]. Daughter stated she did want a referral made. SW contacted [facility] triage nurse and referral was completed. SW received phone call from patients hospice nurse who stated she would be to ED to assess patient. Hospice nurse to ED, evaluated patient and has accepted patient into IPU. Plan: Patient to transfer from ED to [facility]. Alberta Peralta, PARTY PLAN SALES DIRECTOR, CATEGORY SPECIALIST
[2025-01-12 16:59] VITALS: BP 68/50; PULSE 102; RESP 22; TEMP 36.4; O2SAT 94
--- NOTE | 2025-01-12 16:59 | EX.ED.DYSGE1 ---
HPI History of Present Illness Chief Complaint: General Illness Narrative Narrative: Patient is a 79-year-old female presenting to the emergency department from her facility where she is on hospice for episodes of gurgling. Daughter is at bedside who is healthcare power of traffic law attorney. Paperwork arrives with the patient and she is DNR CC which daughter also verifies. She is currently on hospice. Reportedly the patient had an x-ray done a few weeks ago of her right shoulder that showed a pathologic fracture. It is being managed nonsurgically with sling and pain management. Today the nursing facility noticed that she was gurgling. When daughter arrived to visit her mother she became concerned and asked that she be transferred here for evaluation. Patient is unable to provide history. Daughter states that she has been doing fairly well however was placed on hospice due to her significant past medical history and findings of a lung nodule that were thought to be cancer and patient at that time did not want any further workup or treatment. [facility] Medical History History of blood clots Chronic hypoxic respiratory failure Adult failure to thrive Osteoarthritis of left hip Avascular necrosis of femur head, left Anemia Declining functional status Unable to bear weight on left lower extremity Non-rheumatic mitral regurgitation History of rectal cancer Hemorrhoids, external Carotid artery stenosis CAD (coronary artery disease) Non-ST elevation (NSTEMI) myocardial infarction TIA (transient ischemic attack) CVA (cerebral vascular accident) History of thyroid cancer Depression with anxiety DDD (degenerative disc disease), lumbar H/O: pneumonia Diastolic dysfunction Atherosclerosis of coronary artery bypass graft without angina pectoris Benzodiazepine dependence Back pain COPD (chronic obstructive pulmonary disease) Obstructive sleep apnea Anxiety and depression Hypothyroidism Non-rheumatic tricuspid valve insufficiency Secondary pulmonary arterial hypertension Nicotine dependence Hyperlipidemia Atherosclerosis of coronary artery of [place] heart with angina pectoris Essential (primary) hypertension Home Medications ?Medication ?Instructions ?Recorded ?Last Taken ?Type levothyroxine 75 mcg tablet 75 mcg PO DAILY THYROID 09/06/17 01/29/23 History citalopram 40 mg tablet 40 mg PO DAILY DEPRESSION 12/18/17 01/29/23 History atorvastatin 40 mg tablet 40 mg PO QHS CHOLESTEROL 01/05/18 01/28/23 History albuterol sulfate 0.63 mg/3 mL 0.63 mg inhalation Q4H PRN 06/05/19 1 Week Ago History solution for nebulization Congestion ~10/01/21 pantoprazole 40 mg tablet,delayed 40 mg PO BID GERD 01/16/19 04/19/22 History release oxybutynin chloride 5 mg 5 mg PO DAILY BLADDER 10/08/21 01/29/23 History tablet,extended release 24 hr melatonin 10 mg sublingual tablet 10 mg PO QHS INSOMNIA #0 tabs 02/12/23 Unknown Rx acetaminophen 500 mg tablet 1,000 mg PO Q6H PRN Pain Score 1-10 02/16/23 Unknown History lorazepam 0.5 mg tablet 0.5 mg PO TID anxiety 30 days #90 02/20/23 Unknown Rx tabs bupropion HCl 150 mg tablet,12 hr 150 mg PO DAILY mental health 06/30/23 Unknown History sustained-release gabapentin 100 mg capsule 100 mg PO DAILY nerve pain 06/30/23 Unknown History quetiapine 50 mg tablet 50 mg PO QHS mental health 06/30/23 Unknown History lisinopril 20 mg tablet 20 mg PO BID BLOOD PRESSURE #60 07/02/23 04/19/22 Rx tabs spironolactone 25 mg tablet 25 mg PO DAILY diuretic #30 tabs 07/02/23 Unknown Rx isosorbide mononitrate 30 mg 30 mg PO DAILY heart #90 tabs 08/06/23 Unknown Rx tablet,extended release 24 hr apixaban 5 mg tablet (Eliquis) 5 mg PO BID #0 tabs 02/23/24 Unknown Rx metoprolol tartrate 50 mg tablet 50 mg PO BID #0 tabs 02/23/24 Unknown Rx mirtazapine 15 mg tablet 15 mg PO QHS #0 tabs 02/23/24 Unknown Rx nitrofurantoin 100 mg PO DAILY 05/03/24 Unknown History monohydrate/macrocrystals 100 mg capsule (Macrobid) Allergy/AdvReac Type Severity Reaction Status Date / Time hydromorphone Allergy PT UNABLE Verified 01/12/25 13:45 TO RESPOND-NEEDS F/U morphine Allergy PT UNSURE Verified 01/12/25 13:45 nalbuphine Allergy PT UNABLE Verified 01/12/25 13:45 TO RESPOND-NEEDS F/U Penicillins Allergy Hives Verified 01/12/25 13:45 tramadol HCl (From Ultram) Allergy PT UNSURE Verified 01/12/25 13:45 bupropion (From Wellbutrin) AdvReac hallucinati Verified 01/12/25 13:45 ons Family History Father Heart disease of heart attack at age 64 Mother Cancer of cancer at age 72 CVA (cerebral vascular accident) Surgical History Hx of thyroidectomy Presence of stent in coronary artery (~10/10/21) History of left heart catheterization (10/10/21) History of appendectomy Hx of cholecystectomy History of coronary artery stent placement (10/10/21) History of coronary artery bypass graft x 3 (~2007) Social History household members: children and other details: Daughter. housing: house Smoking Status: Former smoker details: Patient denies alcohol use substance use type: does not use ROS ROS ED ROS Narrative See HPI, obtained from daughter EXAM Physical Exam Narrative Exam Narrative: Vital signs: Reviewed General: Responsive to verbal stimuli. No acute distress. Ill appearing. HEENT: Head is normocephalic and atraumatic, sinuses nontender, pupils equal round and reactive. Nares are patent. Oropharynx and throat exams normal. Dry mucous membranes. Neck: Supple without lymphadenopathy nontender Cardiovascular: Irregularly irregular rate and rhythm, no murmurs. No rubs or gallops. Normal S1 and S2 Respiratory: Upper airway sounds are transmitted. Coarse lung sounds throughout. No wheezing. Abdominal: Soft and nontender. Normal bowel sounds. No guarding or rebound. Nonsurgical abdomen Neurological: Wakes to verbal stimuli. Alert and oriented to self and place, not time. Quickly falls back asleep. The rest of the physical exam is unremarkable Const Vital Signs: 01/12/25 13:34 01/12/25 15:42 Temperature 97.6 F L Temperature Source Oral Pulse Rate 95 103 H Respiratory Rate 22 H 14 Blood Pressure 129/99 H 58/36 L Blood Pressure Mean 109 43 Pulse Ox 95 Oxygen Delivery Method Room Air Room Air MDM MDM MDM Narrative Medical decision making narrative: Patient is a 79-year-old female presenting to the emergency department for gurgling sounds at her facility. Patient was seen and examined. When I evaluated her her blood pressure was low with maps in the 50s, she was tachycardic in the 100s. She is responsive to verbal stimuli however falls back asleep quickly. She has transmitted upper airway sounds that the daughter states was the gurgling sounds she was making at the facility. I did verify on paperwork that came with the patient that she is DNR comfort care. I also verified with daughter who is at bedside and healthcare power of traffic law attorney that she is DNR comfort care. Explained with daughter that given her vital signs I am concerned that she may be in the process of dying. I explained that we will keep her comfortable including suctioning her airway as well as giving her fentanyl and trying to dry up her secretions. Will place her on nasal cannula for comfort if needed. Daughter understands and all questions were answered. No indication for any labs or imaging given her comfort care status. Daughter notes multiple times that she does not want her to go back to the nursing facility because she feels like the care there is not good. Social work spoke with the daughter and spoke with inpatient hospice who will be accepting the patient for transfer. Clinical impression Hospice care patient History & Record Review Discussion w/independent historian: Family Discharge Plan Triage Chief Complaint: General Illness ED Provider: Fern Solis Dx/Rx/DC Orders Clinical Impression: Hospice care patient Prescriptions: No Action albuterol sulfate 0.63 mg/3 mL solution for nebulization 0.63 mg INHALATION Q4H PRN (Reason: Congestion) isosorbide mononitrate 30 mg tablet extended release 24 hr 30 mg PO DAILY Qty: 90 3RF nitrofurantoin monohyd/m-cryst [Macrobid] 100 mg capsule 100 mg PO DAILY Rx Instructions: must administer with a meal/food Take one tab every Mon, Wed, Carri and Sat related to urinary tract infection started 3-5-25 levothyroxine 75 MCG tablet 75 mcg PO DAILY citalopram 40 mg tablet 40 mg PO DAILY atorvastatin 40 MG tablet 40 mg PO QHS pantoprazole 40 MG tablet 40 mg PO BID oxybutynin chloride 5 mg tablet extended release 24hr 5 mg PO DAILY melatonin 10 mg Tablet, Sublingual 10 mg PO QHS Qty: 0 0RF acetaminophen 500 mg Tablet 1,000 mg PO Q6H PRN (Reason: Pain Score 1-10) lorazepam 0.5 mg Tablet 0.5 mg PO TID 30 Days Qty: 90 0RF bupropion HCl 150 mg tablet sustained-release 12 hr 150 mg PO DAILY gabapentin 100 mg capsule 100 mg PO DAILY quetiapine 50 mg tablet 50 mg PO QHS spironolactone 25 mg Tablet 25 mg PO DAILY Qty: 30 0RF lisinopril 20 mg tablet 20 mg PO BID Qty: 60 0RF metoprolol tartrate 50 mg Tablet 50 mg PO BID Qty: 0 0RF mirtazapine 15 mg Tablet 15 mg PO QHS Qty: 0 0RF Eliquis 5 mg Tablet 5 mg PO BID Qty: 0 0RF Primary Care Provider: Kingsley Boston Referrals: Kingsley Boston MD [Primary Care Provider, Family Practice] Print Language: Serbian Disposition Disposition: Hospice in Medical Facility Discharge Location: [facility]
== END 2025-01-12 17:21 | disposition hospice, inpatient (51) ==
PROVIDERS: Emergency Provider Student in an Organized Health Care Education/Training Program; PCP Family Medicine; Visit Provider Student in an Organized Health Care Education/Training Program
DX: R09.89 Other specified symptoms and signs involving the circulatory and respiratory systems (principal); J44.9 Chronic obstructive pulmonary disease, unspecified; R03.1 Nonspecific low blood-pressure reading; R00.0 Tachycardia, unspecified; Z66 Do not resuscitate; I10 Essential (primary) hypertension; I25.2 Old myocardial infarction; I25.10 Atherosclerotic heart disease of native coronary artery without angina pectoris; F41.8 Other specified anxiety disorders; I34.0 Nonrheumatic mitral (valve) insufficiency; E78.5 Hyperlipidemia, unspecified; E03.9 Hypothyroidism, unspecified; G47.33 Obstructive sleep apnea (adult) (pediatric); Z51.5 Encounter for palliative care; Z86.73 Personal history of transient ischemic attack (TIA), and cerebral infarction without residual deficits; Z86.718 Personal history of other venous thrombosis and embolism; Z79.890 Hormone replacement therapy; Z79.899 Other long term (current) drug therapy; Z79.01 Long term (current) use of anticoagulants; Z85.850 Personal history of malignant neoplasm of thyroid; Z85.048 Personal history of other malignant neoplasm of rectum, rectosigmoid junction, and anus; Z95.1 Presence of aortocoronary bypass graft; Z90.49 Acquired absence of other specified parts of digestive tract; Z87.891 Personal history of nicotine dependence
CPT/HCPCS: 96374; 99284; A4216